=== PATIENT | female | born 1975 | race Caucasian/White ===

== ENCOUNTER 2021-12-06 13:32 | Outpatient (CLI) | payer OTHER, SELFPAY ==
[2021-12-06 17:27] LABS: Alanine Aminotransferase* 24 U/L (4-35); Aspartate Amino Transferase* 50 U/L (12-35)
[2021-12-07 11:16] LABS: Creatinine* 0.7 mg/dL (0.5-1.5); Estimated Glomerular Filt Rate 107.95
[2021-12-08 18:24] LABS: Cancer Antigen 125 6 U/mL (<=38)
== END 2021-12-06 13:33 | disposition home or self-care (01) ==
DX: C56.9 Malignant neoplasm of unspecified ovary (principal)
CPT/HCPCS: 82247; 82565; 84450; 84460; 85025; 86304

== ENCOUNTER 2022-03-06 00:22 | Inpatient (IN) | payer OTHER, SELFPAY ==
[2022-03-06] VITALS (17 sets, daily range): BP systolic 111–142; BP diastolic 65–95; PULSE 57–97; RESP 16–20; TEMP 36.4–37.2; O2SAT 97–100; BMI 19.0; BMI 19.2
--- NOTE | 2022-03-06 00:31 | ED.GENADULT ---
HPI - General Adult General Time Seen by Provider: 00:32 Date Seen: 03/06/22 Chief complaint: Abdominal Pain Stated complaint: Abdominal Pain Time Seen by Provider: 03/06/22 00:30 Source: patient, RN notes reviewed and old records reviewed Mode of arrival: ambulatory Limitations: no limitations History of Present Illness HPI narrative: 46-year-old female with history of ovarian cancer and also partial bowel resection who comes in today with low abdominal pain, nausea. Pain started about 9 hours prior to coming the emergency department. Patient frequently has difficulty stooling and uses enemas regularly. Did an enema with no output tonight. Nausea without vomiting. Some tingling in her hands now. Pain is in the low abdomen, constant but does wax and wane, worse movement. No urinary symptoms. Denies fevers and chills. Took Gas-X with no relief. Related Data Home Medications Medication Instructions Recorded Confirmed Zejula 03/06/22 lisdexamfetamine 70 mg capsule mg 03/06/22 (Vyvanse) Allergies Allergy/AdvReac Type Severity Reaction Status Date / Time No Known Drug Allergies Allergy Verified 03/06/22 00:29 Review of Systems Status of ROS: Reports: 10 or more systems reviewed and unremarkable except as noted in History and below [facility] Family History (Updated 11/30/21 @ 09:45 by Barry Damon) Father Bladder cancer Social History Smoking Status: Never smoker How often do you have a drink containing alcohol: 2-3 times a week AUDIT-C Alcohol total score: 3 Non-prescribed substance use: denies use Exam Narrative: Exam Narrative: General: Well-developed and well-nourished, no acute distress, appears uncomfortable Head: Atraumatic and normocephalic Eyes: Pupils are equal reactive, extraocular motions intact, conjunctiva clear ENT: External nose and ears are normal, posterior pharynx without erythema or exudate Neck: No midline cervical tenderness, full spontaneous range of motion the neck, trachea midline, no adenopathy Heart: Regular rate and rhythm no murmurs or thrills Lungs: Clear to auscultation bilaterally without wheezes or crackles Abdomen: Midline abdominal scar, hyperactive high-pitched bowel sounds, diffuse lower abdominal tenderness with mild distention Musculoskeletal: No tenderness, deformity, or edema Neurologic: Awake, alert, and oriented x3, no gross focal neurologic deficits, cranial nerves intact as tested Psych: Mood and affect are appropriate Skin: No rashes Const: Vital Signs, click to edit/add: Vital Signs - 24 hr 03/06/22 00:25 03/06/22 01:40 03/06/22 02:00 Temperature 97.6 F Pulse Rate [Right Pulse Oximeter] 85 69 57 L Respiratory Rate 20 18 18 Blood Pressure [Le ft Upper Arm] 121/65 128/89 127/90 H Pulse Oximetry 100 99 Oxygen Delivery Me thod Room Air Room Air 03/06/22 02:30 Temperature Pulse Rate [Right Pulse Oximeter] 58 L Respiratory Rate 16 Blood Pressure [Le ft Upper Arm] 134/84 Pulse Oximetry 99 Oxygen Delivery Me thod Room Air Documenting provider has reviewed patient's vital signs: yes Course Course Hospital Course: Patient seen and examined, prior records are reviewed. Differential diagnosis includes but not limited to gastritis, gastric ulcer, colitis, pancreatitis, acute cholecystitis, diverticulitis, appendicitis, urinary tract infection, bowel obstruction, perforation, kidney stone. Patient's history of ovarian cancer and abdominal surgeries comes in with low abdominal pain this evening. On exam, appears uncomfortable, vital is stable. Hyperactive, high-pitched bowel sounds with lower abdominal distension and low diffuse abdominal tenderness worse in the lower quadrant. Labs and CT scan are ordered along with Dilaudid IV and Zofran. Reevaluation(s) Reevaluation #1: Labs are reassuring, CT scan personally reviewed and interpreted by me demonstrates small-bowel obstruction. Radiology interpretation agrees. Care was discussed with Dr. Hernandez, general surgery. Feels that as long as patient did not receive intraoperative intra-abdominal chemotherapy she can stay at [place] ED. Contact [place] to discuss. Patient is comfortable after Dilaudid IV. Time: 02:33 Reevaluation #2: Discussed with male, patient did not have intra-abdominal chemotherapy and has not had pelvic radiation. [facility] hospitalist contacted for admission. Time: 03:15 Reevaluation #3: Discussed with [facility]ist. Time: 03:21 Vital Signs Vital signs: Initial Vital Signs Temperature 97.6 F 03/06/22 00:25 Temperature Source Temporal Artery Scan 03/06/22 00:25 Pulse Rate 85 03/06/22 00:25 Respiratory Rate 20 03/06/22 00:25 Blood Pressure 121/65 03/06/22 00:25 Blood Pressure Mean 83 03/06/22 00:25 Blood Pressure Position Sitting 03/06/22 00:25 Pulse Oximetry 100 03/06/22 00:25 Oxygen Delivery Method 03/06/22 00:25 Vital Signs Temperature 97.6 F 03/06/22 00:25 Pulse Rate 85 03/06/22 00:25 Respiratory Rate 20 03/06/22 00:25 Blood Pressure 121/65 03/06/22 00:25 Pulse Oximetry 100 03/06/22 00:25 Oxygen Delivery Method 03/06/22 00:25 Temperature 97.6 F 03/06/22 00:25 Pulse Rate 58 L 03/06/22 02:30 Respiratory Rate 16 03/06/22 02:30 Blood Pressure 134/84 03/06/22 02:30 Pulse Oximetry 99 03/06/22 02:30 Oxygen Delivery Method 03/06/22 02:30 Medical Decision Making Medical Records Medical records reviewed: Yes I reviewed the patient's medical records Lab Data Lab results reviewed: Yes I reviewed the patient's lab results Labs: Lab Results 03/06/22 03/06/22 03/06/22 Range/Units 01:10 01:10 01:10 WBC 7.58 (4.50-11.00) K/uL RBC 4.21 (4.00-5.20) m/uL Hgb 14.1 (12.0-16.0) gm/dL Hct 40.5 (33.0-51.0) % MCV 96 (80-100) fL MCH 34 (26-34) pg MCHC 35 (32-36) gm/dL RDW Coeff of Mile 12.6 (11.5-15.5) % Plt Count 242 (140-440) K/uL Neut % (Auto) 77.7 H (42.0-72.0) % Lymph % (Auto) 12.8 L (20-44) % [place] % (Auto) 8.6 (0.0-11.0) % Eos % (Auto) 0.3 (0.0-7.0) % Baso % (Auto) 0.3 (0.0-3.0) % Neut # (Auto) 5.90 (1.7-7.0) K/uL Lymph # (Auto) 1.00 (0.90-2.90) K/uL [place] # (Auto) 0.70 (0.00-0.90) K/UL Eos # (Auto) 0.02 (0.00-0.50) K/uL Baso # (Auto) 0.02 (0.00-0.30) K/uL Abs Immat Gran (auto) 0.02 (0.00-0.30) K/uL Sodium 137 (135-149) mmol/L Potassium 4.0 (3.6-5.1) mmol/L Chloride 99 (96-114) mmol/L Carbon Dioxide 27 (20-32) mmol/L BUN 14 (5-24) mg/dL Creatinine 0.8 (0.5-1.5) mg/dL Estimated Creat Clear 76.13 Estimated GFR 92 ml/min Glucose 125 H (60-115) mg/dL Lactate 1.3 (0.5-1.9) mmol/L Calcium 10.3 (8.4-10.6) mg/dL Total Bilirubin 1.7 H (0.1-1.5) mg/dL Direct Bilirubin 0.1 (0.0-0.5) mg/dL AST 42 H (12-35) U/L ALT 27 (4-35) U/L Alkaline Phosphatase 127 (40-150) U/L Total Protein 8.2 (6.0-8.3) g/dL Albumin 5.0 (3.3-5.0) g/dL Lipase 100 (23-300) U/L SARS-CoV-2 (PCR) (Negative) Influenza Type A (PCR) (Negative) Influenza Type B (PCR) (Negative) 03/06/22 Range/Units 02:45 WBC (4.50-11.00) K/uL RBC (4.00-5.20) m/uL Hgb (12.0-16.0) gm/dL Hct (33.0-51.0) % MCV (80-100) fL MCH (26-34) pg MCHC (32-36) gm/dL RDW Coeff of Mile (11.5-15.5) % Plt Count (140-440) K/uL Neut % (Auto) (42.0-72.0) % Lymph % (Auto) (20-44) % [place] % (Auto) (0.0-11.0) % Eos % (Auto) (0.0-7.0) % Baso % (Auto) (0.0-3.0) % Neut # (Auto) (1.7-7.0) K/uL Lymph # (Auto) (0.90-2.90) K/uL [place] # (Auto) (0.00-0.90) K/UL Eos # (Auto) (0.00-0.50) K/uL Baso # (Auto) (0.00-0.30) K/uL Abs Immat Gran (auto) (0.00-0.30) K/uL Sodium (135-149) mmol/L Potassium (3.6-5.1) mmol/L Chloride (96-114) mmol/L Carbon Dioxide (20-32) mmol/L BUN (5-24) mg/dL Creatinine (0.5-1.5) mg/dL Estimated Creat Clear Estimated GFR ml/min Glucose (60-115) mg/dL Lactate (0.5-1.9) mmol/L Calcium (8.4-10.6) mg/dL Total Bilirubin (0.1-1.5) mg/dL Direct Bilirubin (0.0-0.5) mg/dL AST (12-35) U/L ALT (4-35) U/L Alkaline Phosphatase (40-150) U/L Total Protein (6.0-8.3) g/dL Albumin (3.3-5.0) g/dL Lipase (23-300) U/L SARS-CoV-2 (PCR) Negative SARS-CoV-2 (Negative) Influenza Type A (PCR) Negative PCR FLU A (Negative) Influenza Type B (PCR) Negative PCR FLU B (Negative) Imaging Data CT scan - abdomen: Attestation: I have reviewed the pertinent imaging results. My impression: Small-bowel obstruction Radiologist's impression: IMPRESSION: Small-bowel obstruction. Transition point may be within the left upper quadrant as described above, possibly from adhesion from prior splenectomy. Small amount of simple free fluid in the pelvis. Status post hysterectomy and splenectomy. Low-density focus under the diaphragm is not seen on today`s study nor is the low density lesion in the liver. These findings suggest improvement in metastatic disease. Discharge Plan Discharge Clinical Impression: SBO (small bowel obstruction), H/O ovarian cancer Patient Disposition: Admitted As Inpatient
--- NOTE | 2022-03-06 00:42 | CRLHL7_ITS ---
For Patients: As a result of the Century Cures Act, medical imaging exams and procedure reports are released immediately into your electronic medical record. You may view this report before your referring provider. If you have questions, please contact your health care provider. INDICATION: Anterior abdominal pain, ovarian cancer TECHNIQUE: CT abdomen and pelvis acquired with 59 cc Isovue 370 IV contrast. COMPARISON: February 08, 2021 FINDINGS: Lower chest: The hypoattenuating focus along the superior surface of the liver under the diaphragm is not seen on today`s study. Liver: Low-density lesion previously seen adjacent to the falciform fissure is no longer seen. Spleen: S/p splenectomy. Pancreas: Unremarkable. Gallbladder and bile ducts: Unremarkable. Adrenal glands: Unremarkable. Kidneys: Unremarkable. GI tract: Air and fluid-filled loops of dilated small bowel measure up to 3.2 cm in diameter. Transition point may be within the left upper quadrant where there is a small bowel feces sign and a pointed appearance of the small bowel on image 21 series 4. Small amount of simple free fluid in the pelvis. No bowel wall thickening or pneumatosis. The colon is decompressed. Vascular structures: Unremarkable. Lymph nodes: Unremarkable. Pelvic Organs: Status post hysterectomy. Bones: Unremarkable for age. IMPRESSION: Small-bowel obstruction. Transition point may be within the left upper quadrant as described above, possibly from adhesion from prior splenectomy. Small amount of simple free fluid in the pelvis. Status post hysterectomy and splenectomy. Low-density focus under the diaphragm is not seen on today`s study nor is the low density lesion in the liver. These findings suggest improvement in metastatic disease. Please note that all CT scans at this facility use dose modulation, iterative reconstruction, and/or weight-based dosing when appropriate to reduce radiation dose to as low as reasonably achievable. Dictated by Ashley Aguilar MD @ 03/06/2022 2:24:00 AM (Electronically Signed)
[2022-03-06 01:16] LABS: Lactate* 1.3 mmol/L (0.5-1.9)
[2022-03-06 01:17] LABS: Basophils Absolute Auto 0.02 K/uL (0.00-0.30); Basophils Percent Auto 0.3 % (0.0-3.0); Eosinophils Absolute Auto 0.02 K/uL (0.00-0.50); Eosinophils Percent Auto 0.3 % (0.0-7.0); Hematocrit 40.5 % (33.0-51.0); Hemoglobin* 14.1 gm/dL (12.0-16.0); Immature Granulocytes Abs Auto 0.02 K/uL (0.00-0.30); Lymphocytes Percent Auto 12.8 % (20-44); Mean Corpuscular HGB Conc 35 gm/dL (32-36); Mean Corpuscular Hemoglobin 34 pg (26-34); Mean Corpuscular Volume 96 fL (80-100); Monocytes Percent Auto 8.6 % (0.0-11.0); Neutrophils Percent Auto 77.7 % (42.0-72.0); Platelet Count* 242 K/uL (140-440); RDW Coefficient of Variation % 12.6 % (11.5-15.5); Red Blood Count 4.21 m/uL (4.00-5.20); White Blood Count* 7.58 K/uL (4.50-11.00)
[2022-03-06] MEDS: 0.9 % SODIUM CHLORIDE 1000 ml 1,000 ML IV (01:18)
[2022-03-06 01:19] LABS: Slide Review Reflex No
[2022-03-06] MEDS: ONDANSETRON 2 MG/ML inj 4 MG IVP ×2 (01:19→05:41)
[2022-03-06] MEDS: HYDROmorphone 0.5 mg/0.5 ml inj IVP (01:20)
[2022-03-06 01:33] LABS: Chloride* 99 mmol/L (96-114)
[2022-03-06 01:34] LABS: Sodium* 137 mmol/L (135-149)
[2022-03-06 01:36] LABS: Alkaline Phosphatase* 127 U/L (40-150); Aspartate Amino Transferase* 42 U/L (12-35); Bilirubin Direct* 0.1 mg/dL (0.0-0.5); Bilirubin Total* 1.7 mg/dL (0.1-1.5); Blood Urea Nitrogen* 14 mg/dL (5-24); Carbon Dioxide* 27 mmol/L (20-32); Creatinine* 0.8 mg/dL (0.5-1.5); Est. Creatinine Clearance* 76.13; Estimated Glomerular Filt Rate 92 ml/min; Glucose* 125 mg/dL (60-115); Total Protein* 8.2 g/dL (6.0-8.3)
[2022-03-06 01:37] LABS: Alanine Aminotransferase* 27 U/L (4-35); Calcium* 10.3 mg/dL (8.4-10.6); Lipase* 100 U/L (23-300)
--- OUTSIDE RECORDS SUMMARY | 2022-03-06 01:49 | XMS_ITS | Encounter Summary ---
:1975 Author Organization [facility] Address [address] [place] [address] Care Team Providers Name Role Phone Elsewhere, Pcp Primary Care Provider Unavailable Reason for Visit Reason Comments Updated Genetic Test Results Encounter Details Date Type Department Care Team Description 02/06/2022 Documentation Department of Medical Deysi Alba Updated Genetic Test Genetics in Results [place], [place] [address] [place] [address] Social History Tobacco Use Types Packs/Day Years Used Date Smoking Tobacco: Never Smokeless Tobacco: Never Alcohol Use Standard Drinks/Week Comments Not Currently 6 (1 standard drink = 0.6 oz pure alcoho l) Alcohol Habits Answer Date Recorded How often do you have a drink containing alcohol? 2-3 times a week 02/26/2021 How many drinks containing alcohol do you have on a 1 or 2 02/26/2021 typical day when you are drinking? How often do you have six or more drinks on one Less than mo nthly 02/26/2021 occasion? Comment: Not asked Social Isolation Answer Date Recorded In a typical week, how many times do you Three times a week 02/26/2021 talk on the phone with family, friends, or neighbors? How often do you get together with friends More than three t imes a week 02/26/2021 or relatives? How often do you attend voodoo or 1 to 4 times per year 02/09 shinto services? Do you belong to any clubs or Yes 02/26/2021 organizations such as voodoo groups, unions, fraternal or athletic groups, or school groups? How often do you attend meetings of the 1 to 4 times per yea r 02/26/2021 clubs or organizations you belong to? Are you now , , , 02/26/2021 , never or living with a partner? Physical Activity Answer Date Recorded On average, how many days per week do you engage in moderate to 7 days 02/26/2021 strenuous exercise (like walking fast, running, jogging, dancing, swimming, biking, or other activities that cause a light or heavy sweat)? On average, how many minutes do you engage in exercise at th is 60 min 02/26/2021 level? Stress Answer Date Recorded Do you feel stress - tense, restless, nervous, or To some ex tent 02/26/2021 anxious, or unable to sleep at night because your mind is troubled all the time - these days? Financial Resource Strain Answer Date Recorded How hard is it for you to pay for the very basics like Not h haley at all 02/26/2021 food, housing, medical care, and heating? Food Insecurity Answer Date Recorded Within the past 12 months, you worried that your food would Never true 02/26/2021 run out before you got money to buy more. Within the past 12 months, the food you bought just didn't N ever true 02/26/2021 last and you didn't have money to get more. Transportation Needs Answer Date Recorded In the past 12 months, has lack of transportation kept you f rom No 02/26/2021 medical appointments or from getting medications? In the past 12 months, has lack of transportation kept you f rom No 02/26/2021 meetings, work, or getting things needed for daily living? Housing Stability Answer Date Recorded In the last 12 months, was there a time when you were not ab le No 02/26/2021 to pay the mortgage or rent on time? In the last 12 months, how many places have you lived? 1 02/26/2021 In the last 12 months, was there a time when you did not hav e a No 02/26/[address] or slept in a detention (including now)? Education Answer Date Recorded What is the highest level of school Bachelor's degree (e.g., BA, AB, 02/26/2021 you have completed or the highest BS) degree you have received? Sex Assigned at Date Recorded Female 02/10/2021 8:20 AM CDT documented as of this encounter Progress Notes ParthDeysi nunez Daniel - 02/06/2022 3:07 PM CDT Images from the original note were not included. We received an amended report for Angelica's genetic testing. Angelica was seen in the Department of Clinical Genomics on 03/02/2021 by Claudette Bansal CGC due to their personal diagnosis of cancer. They elected to pursue the [facility] Panel through [facility]. 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 [facility] issued a reclassification report noting the VUS in APC has now been downgraded to a variant of no clinical significance. Therefore, it is unlikely that this variant causes disease. The recommended care plan from the patient's initial result note remains applicable. This information was communicated to the patient via the patient online services portal by our genetic counseling multimedia assistant. documented in this encounter Plan of Treatment Upcoming Encounters Date Type Specialty Care Team Description 04/11/2022 Clinical Communication Admitting/Central Scheduling 04/13/2022 Appointment Laboratory Medicine Debbie Ivey M.D. [address] [place] [address] 04/13/2022 Office Visit Oncology Walter Barnhart M.D., Ph.D. [address] [place] [address] documented as of this encounter Visit Diagnoses Not on filedocumented in this encounter Care Teams Drafter Geological Relationship Specialty Start Date End Date Elsewhere, Pcp PCP - General Internal Medicine 07/08/21 documented as of this encounter
--- OUTSIDE RECORDS SUMMARY | 2022-03-06 01:49 | XMS_ITS | Clinical Summary ---
:1975 Author Organization [facility] Address [address] [place] [address] Care Team Providers Name Role Phone Elsewhere, Pcp Primary Care Provider Unavailable Source Comments Patient records contain information from all sites at [facility]. For routine questions regarding patient records, call [phone] during business hours, M-F 8:00 AM - 5:00 PM Central Time. Record requests for emergency care only can be directed to [phone] at any time.[facility] Allergies Active Allergy Reactions Severity Noted Date Comments Blood-Group Specific Other (see comments) 06/16/2009 Patient has a Substance Nonspecfic Anti body. Rh factor. Bloo d products may be delayed. Draw 2 purple top tubes and 1 red top tube for Ty pe and Screen +/or Typ e and Crossmatch orde rs. Medications Medication Sig Dispensed Refills Start Date End Date Status rgqcdsu-epoo-ccxbf-ore Take 1 tablet by 0 Active g-capryl 100 mg-150 mouth daily. mg- 50 mg-150 mg capsule niraparib 100 mg Take 200 mg by 60 capsule 11 09/12/2021 Active capsule mouth daily. 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 02/08/2022 Clinical Oncology Walter Barnhart M.D., Ph.D. 02/07/2022 Specialty Pharmacy Pharmacy Michelle Mcclain [facility], R.Ph. 02/06/2022 Documentation Clinical Genomics Deysi Alba ed Genetic M Test Results 01/11/2022 Specialty Pharmacy Pharmacy Brunilda Tamayo [facility], R.Ph. 01/03/2022 [facility] Mal[facility] Ne oplasm M, EDUCATION ANALYST, C.N.P., Of Ovary La terality M.S.N. Unknown (HCC) 01/03/2022 [facility] M, EDUCATION ANALYST, C.N.P., Of Ovary La terality M.S.N. Unknown (HCC) (Primary Dx) 01/03/2022 Hospital Encounter Radiology Block, Walter leon Neoplasm Kelly De La Cruz, Ph.D. Of Ovary Late rality Unknown (HCC) 01/03/2022 Hospital Encounter Laboratory Block, aWlter leon Neoplasm Medicine Kelly De La Cruz, Ph.D. Of Ovary Late rality Unknown (HCC) 01/02/2022 Clinical Admitting/Central Communication Scheduling 12/13/2021 Clinical Oncology Malathi Bear, Labs Only Communication R.N. from Last 3 Months Immunizations Name Administration Dates Next Due H1N1 All Forms 05/05/2009 HepA / HepB 12/19/2013, 06/16/2013, 02/12/2013 Hib (PRP-OMP) (PedvaxHIB) 05/12/2021 Influenza (IM) Preservative Free 02/28/2013 Influenza TIV (IM) 03/24/2009, 05/15/2008, 03/20/2006, 05/06/2004 Influenza, Seasonal, Injectable 03/09/2014, 03/24/2009, 12/10/2007, 03/20/2006 MCV4 (Menveo) 07/11/2021, 05/12/2021 MenB (BEXSERO) 07/11/2021, 05/12/2021 PCV13 05/12/2021 PPSV23 07/11/2021 Tdap 07/11/2021, 01/05/2010 influenza LAIV (Nasal) (2 years 04/09/2015 through 49 years) influenza vaccine QV(FLUBLOK) (18 02/12/2021 years or older) (PF) influenza vaccine quad 03/29/2018 (FLUZONE/FLUARIX) (6 months and older)(PF) Family History Medical History Relation Name Comments Bladder cancer Father Rob salter Other cancer Father Rob salter Bladder cancer 7 0yo Prostate cancer Father Rob salter 70 yo Bladder cancer Father's Brother Latonya mid-60s80 pack years smoking history Bladder cancer Maternal Grandmother non-smoker Dementia Maternal Grandmother Anxiety disorder Mother Iram salter Pancreatic cancer Paternal Grandmother Anxiety disorder Sister 2 Sarah salter Relation Name Status Comments Aunt 2 FEMALES Alive Brother 1 Alive Brother 2 Alive Cousin 1 3 Alive Cousin 2 Alive CF Cousin 3 Alive Cousin 4 Alive Cousin 5 Alive Cousin 6 Alive Daughter Alive Father Rob salter Alive 1.5 pack years s moking Father's Brother Latonya Alive Father's Sister 4 FEMALES Alive Maternal Grandfather Maternal Grandmother Mother Iram salter Alive Mother's Sister Alive Nephew 1 3 MALEs Alive Nephew 2 Alive Niece 1 2 FEMALES Alive 1 - CF Niece 2 Alive Niece 3 3 FEMALES Alive Paternal Grandfather (Age 60) d. MVA Paternal Grandmother (Age 87) Sister 1 Alive Sister 2 Sarah salter Son 1 Alive Son 2 Alive Uncle 4 MALES Alive Social History Tobacco Use Types Packs/Day Years Used Date Smoking Tobacco: Never Smokeless Tobacco: Never Tobacco Cessation: Counseling Given: Not Answered Alcohol Use Standard Drinks/Week Comments Not Currently [...] or relatives? How often do you attend mandaeism or 1 to 4 times per year 02/09 baptist services? Do you belong to any clubs or Yes 02/26/2021 organizations such as mandaeism groups, unions, fraternal or athletic groups, or [...] place to sleep or slept in a correction (including now)? Education Answer Date Recorded What is the highest level of school Bachelor's degree (e.g., BA, AB, 02/26/2021 you have completed or the highest BS) degree you have received? Sex Assigned at Date Recorded Female 02/10/2021 8:20 AM CDT Last Filed Vital Signs Vital Sign Reading Time Taken Comments Blood Pressure 122/82 01/03/2022 1:48 PM CDT Pulse 92 01/03/2022 1:48 PM CDT Temperature 36.7 ??C (98.1 ??F) 01/03/2022 1:48 PM CDT Respiratory Rate 16 01/03/2022 1:48 PM CDT Oxygen Saturation 97% 01/03/2022 1:48 PM CDT Inhaled Oxygen Concentration - - Weight 56.2 kg (123 lb 14.4 oz) 01/03/2022 1:48 PM CDT Height 168.5 cm (5' 6.34) 01/03/2022 1:48 PM CDT Body Mass Index 19.79 01/03/2022 1:48 PM CDT Plan of Treatment Upcoming Encounters Date Type Specialty Care Team Description 04/11/2022 Clinical Communication Admitting/Central Scheduling 04/13/2022 Appointment Laboratory Medicine Debbie Ivey M.D. [address] [place] [address] 04/13/2022 Office Visit Oncology Walter Barnhart M.D., Ph.D. [address] [place] [address] Health Maintenance Due Date Last Done Comments CT Colonography 1975 Cologuard 1975 Colonoscopy 1975 Colorectal Cancer Surveillance 1975 Lipid (Cholesterol) Screening 1975 Mammogram 1975 COVID-19 Vaccine (3 - Moderna risk 05/01/2021 04/03/2021, 0 02/12/2021 series) Depression Screening (Annual 06/11/2021 PHQ-2) Influenza Vaccine (#1) 2022 02/12/2021, 03/29/2018, 04/09/2015, Additional history exists MenB Vaccine (3 of 4 - Increased 07/11/2022 07/11/2021, 07/2020 Risk Bexsero 2-dose series) Fasting Glucose for Diabetes 05/12/2024 05/12/2021, 021, Screening 05/10/2021, Additional history exists Meningococcal Vaccine (3 - Risk 07/11/2026 07/11/2021, 07/2020 2-dose series) Pneumococcal vaccine (0-64 years) 07/11/2026 07/11/2021, (3 - PPSV23 or PCV20) DTaP,Tdap,and Td Vaccines (3 - Td 07/11/2031 07/11/2021, or Tdap) Hepatitis B Vaccines Completed 12/19/2013, 06/16/2013, 02/12/2013 HIB Vaccines Completed 05/12/2021 HIV Screening Completed 01/03/2022 Hepatitis C Screening Completed 01/03/2022 Medical Devices Implanted Type Area Lockstitch Front Maker Device Identifier Shelf Model / Expiration Serial / Date Lot Clp Hrzn Ti 6 Norm Swanson-Lg Grn - [id number] Hardware [employer] [id number] 07/20/2025 [id number] / Implanted: Qty: 1 on 05/09/2021 by Denisha Bliss M.D. at [facility] e.g. / pins/screws/ [id number] Procedures Procedure Name Priority Date/Time Associated Comments Diagnosis HEMATOLOGY/ONCOLOGY - Routine 02/01/2022 Result s for BLOOD, EXTERNAL LAB 11:05 AM CDT this pro cedure RESULTS are in the results section. CT ABDOMEN PELVIS WITH RAD - Routine 01/03/2022 Malignant Resu lts for IV CONTRAST (most inpatients 11:07 AM CDT Neoplasm Of this proced ure and all Ovary Laterality are in the outpatients) Unknown (HCC) results section. CT CHEST WITH IV RAD - Routine 01/03/2022 Malignant Results fo r CONTRAST (most inpatients 11:07 AM CDT Neoplasm Of this proced ure and all Ovary Laterality are in the outpatients) Unknown (HCC) results section. CANCER AG 125 (CA 125), Routine 01/03/2022 9:20 Malignant R esults for S AM CDT Neoplasm Of this procedure Ovary Laterality are in the Unknown (HCC) results section. CREATININE WITH EGFR, Routine 01/03/2022 9:20 Malignant Res ults for S/P AM CDT Neoplasm Of this procedure Ovary Laterality are in the Unknown (HCC) results section. CBC WITH DIFFERENTIAL, Routine 01/03/2022 9:20 Malignant Re sults for B AM CDT Neoplasm Of this procedure Ovary Laterality are in the Unknown (HCC) results section. BILIRUBIN, TOT, S/P Routine 01/03/2022 9:20 Malignant Resul ts for AM CDT Neoplasm Of this procedure Ovary Laterality are in the Unknown (HCC) results section. ASPARTATE Routine 01/03/2022 9:20 Malignant Results for AMINOTRANSFERASE (AST), AM CDT Neoplasm Of this procedure S/P Ovary Laterality are in the Unknown (HCC) results section. ALKALINE PHOSPHATASE, Routine 01/03/2022 9:20 Malignant Res ults for S/P AM CDT Neoplasm Of this procedure Ovary Laterality are in the Unknown (HCC) results section. HEPATITIS B SURFACE Routine 01/03/2022 9:20 Malignant Resul ts for ANTIGEN AM CDT Neoplasm Of this procedure Ovary Laterality are in the Unknown (HCC) results section. HCV AB SCRN W/REFLEX TO Routine 01/03/2022 9:20 Malignant R esults for HCV PCR, S AM CDT Neoplasm Of this procedure Ovary Laterality are in the Unknown (HCC) results section. HIV-1/-2 AG AND AB Routine 01/03/2022 9:20 Malignant Result s for SCREEN, PLASMA AM CDT Neoplasm Of this procedur e Ovary Laterality are in the Unknown (HCC) results section. HEMATOLOGY/ONCOLOGY - Routine 12/06/2021 1:39 Res ults for BLOOD, EXTERNAL LAB PM CDT this pro cedure RESULTS are in the results section. from Last 3 Months Results (ABNORMAL) Hematology/Oncology - Blood, External Lab Results (02/01/2022 11:05 AM CDT)Only the most recent of2 resultswithin the time period is included. P athologist Signature EXT Hemoglobin 13.3 12.0 - OTHER 16.0 (SPECIFY IN DEPUTY BAILIFF) EXT Leukocytes 5.25 4.50 - OTHER 11.00 (SPECIFY IN DEPUTY BAILIFF) EXT Absolute 2.64 1.7 - 7.0 OTHER Neutrophil (SPECIFY IN Count DEPUTY BAILIFF) EXT Platelet 255 140 - 440 OTHER Count (SPECIFY IN DEPUTY BAILIFF) EXT AST 49 (A) 12 - 35 OTHER (SPECIFY IN DEPUTY BAILIFF) EXT ALT 25 4 - 35 OTHER (SPECIFY IN DEPUTY BAILIFF) EXT Bilirubin, 1.6 (A) 0.1 - 1.5 OTHER Total mg/dL (SPECIFY IN DEPUTY BAILIFF) EXT Cancer 6 OTHER Antigen 125 (Ca (SPECIFY IN 125) DEPUTY BAILIFF) Comment: <=38 EXT Creatinine 0.7 0.5 - 1.5 mg/dL OTHER (SP ECIFY IN DEPUTY BAILIFF) EXT eGFR-Non Black/ 108 OTH ER (SPECIFY IN DEPUTY BAILIFF) Belgian Specimen (Source) Anatomical Collection Method Collection Time Re ceived Time Location / / Volume Laterality Blood 02/01/2022 11:05 AM CDT Narrative This result has an attachment that is no t available. Historical Provider LAB BLOOD NON ADD-ON Performing Organization Address City/State/ZIP Code Phon e Number OTHER (SPECIFY IN DEPUTY BAILIFF) OTHER (SPECIFY IN DEPUTY BAILIFF) N/A CT Abdomen Pelvis with IV Contrast (01/03/2022 11:07 AM CDT) Anatomical Region Laterality Modality Abdomen, Pelvis, Abdominal RST LOS, N/A Comp uted Tomography, Computed Abdominal ARZ LOS, Abdominal FLA LOS Aldo ography Specimen (Source) Anatomical Collection Method Collection Time Re ceived Time Location / / Volume Laterality 01/03/2022 11:10 AM CDT Impressions 01/03/2022 11:21 AM CDT Postoperative changes. No CT evidence of recurrent or metastati c disease. Interval improvement in the soft tissue nodularity near the left hemidiaphragm. 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 Liver normal size. No suspicious focal l iver lesions. Stable small hypodensity in right lobe near the dome (series 3/16). Gallbladder norm al. Pancreas normal size. Pancreatic duct is nondilated. The soft tissue density nodularity near the left hemidiaphragm (series 3/34) has mildly improved from prior. No new nodularity or soft ti ssue masses. Both kidneys normal size. Stable nonobstructive right renal calcul us (series 3/65). Small bowel loops are of normal caliber. Few reactive appearing mesenteric lymph nodes. No discrete peritoneal mass. No free fluid in the abdomen or pelvis. No significant pelvic or retroperitoneal lymph nodes This examination was performed in conjun ction with a CT of the chest, which will be reported separately. Procedure Note Av Potts M.D. 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 Liver normal size. No suspicious focal l iver lesions. Stable small hypodensity in right lobe near the dome (series 3/16). Gallbladder norm al. Pancreas normal size. Pancreatic duct is nondilated. The soft tissue density nodularity near the left hemidiaphragm (series 3/34) has mildly improved from prior. No new nodularity or soft ti ssue masses. Both kidneys normal size. Stable nonobstructive right renal calcul us (series 3/65). Small bowel loops are of normal caliber. Few reactive appearing mesenteric lymph nodes. No discrete peritoneal mass. No free fluid in the abdomen or pelvis. No significant pelvic or retroperitoneal lymph nodes This examination was performed in conjun ction with a CT of the chest, which will be reported separately. IMPRESSION: Postoperative changes. No CT evidence of recurrent or metastati c disease. Interval improvement in the soft tissue nodularity near the left hemidiaphragm. Walter Barnhart M.D., Ph.D. IMG CT PROCEDURES CT Chest with IV Contrast (01/03/2022 11:07 AM CDT) Anatomical Region Laterality Modality Chest, Thoracic RST LOS, Thoracic ARZ N/A Co mputed Tomography, Computed LOS, Thoracic ARZ LOS, Thoracic FLA Rene graphy LOS Specimen (Source) Anatomical Collection Method Collection Time Re ceived Time Location / / Volume Laterality 01/03/2022 11:19 AM CDT Impressions 01/03/2022 11:45 AM CDT 1. ??New 3 mm sub-solid pulmonary nodule along the right major fissure in the right upper lobe is indeterminate. 2. ??Additional findings are unchanged f rom 08/04/2021, including several sub-3 mm solid noncalcified pulmonary nodules. 3. ??Performed in conjunction with a CT scan of the abdomen, which is reported separately. Narrative 01/03/2022 11:45 AM CDT EXAM: CT CHEST WITH IV CONTRAST COMPARISON: Chest CT 08/04/2021 FINDINGS: New 3 mm sub-solid pulmonary nodule keyana g the right major fissure in the right upper lobe (series 3, image 253). Additional unchanged sub-3 m m solid noncalcified pulmonary nodules. For example, anterior right lower lobe (series 3, dion ge 291), left lower lobe superior segment (series 3, image 193). Calcified pulmonary granulomas. St able slight nodularity along the left anterolateral tracheal wall. No pneumothorax or pleural effusio n. Small amount of morphologically normal r esidual thymic tissue in the anterior mediastinum. No size significant hilar, mediastinal, or axill isha lymphadenopathy. Unchanged tiny pericardial effusion. No aggressive osseous lesions. [place] d right rib fracture. Similar small lucency in the T9 vertebral body. Performed in conjunction with a CT scan of the abdomen, which will be reported separately. 3D maximum intensity projection (MIP) im ages were created on a dependent workstation as ordered by the treating provider and reviewed by e radiologist to increase sensitivity for detection of pulmonary nodules. Procedure Note Jaquelin Richter M.D. - 01/03/2022Format ting of this note might be different from the original. EXAM: CT CHEST WITH IV CONTRAST COMPARISON: Chest CT 08/04/2021 FINDINGS: New 3 mm sub-solid pulmonary nodule keyana g the right major fissure in the right upper lobe (series 3, image 253). Additional unchanged sub-3 m m solid noncalcified pulmonary nodules. For example, anterior right lower lobe (series 3, dion ge 291), left lower lobe superior segment (series 3, image 193). Calcified pulmonary granulomas. St able slight nodularity along the left anterolateral tracheal wall. No pneumothorax or pleural effusio n. Small amount of morphologically normal r esidual thymic tissue in the anterior mediastinum. No size significant hilar, mediastinal, or axill isha lymphadenopathy. Unchanged tiny pericardial effusion. No aggressive osseous lesions. [place] d right rib fracture. Similar small lucency in the T9 vertebral body. Performed in conjunction with a CT scan of the abdomen, which will be reported separately. 3D maximum intensity projection (MIP) im ages were created on a dependent workstation as ordered by the treating provider and reviewed by e radiologist to increase sensitivity for detection of pulmonary nodules. IMPRESSION: 1. New 3 mm sub-solid pulmonary nodule a long the right major fissure in the right upper lobe is indeterminate. 2. Additional findings are unchanged fro 08/04/2021, including several sub-3 mm solid noncalcified pulmonary nodules. 3. Performed in conjunction with a CT sc an of the abdomen, which is reported separately. Walter Barnhart M.D., Ph.D. IMG CT PROCEDURES HIV-1/-2 Ag and Ab Screen, Plasma (01/03/2022 9:20 AM CDT) athologist Signature HIV-1/-2 Ag Negative Negative 01/03/2022 [facility] and Ab Screen, 2:01 PM CDT P Comment: Negative result does not rule out HIV in fection. If exposure to HIV infection occurred <14 d ays ago, contact the laboratory to request additi on of HIV-1 RNA detection / quantification test (HIV QN). Specimen Anatomical Collection Method Collection Time Receive d Time (Source) Location / / Volume Laterality Blood (Blood, 01/03/2022 9:20 AM 01/04/20 22 Venous) CDT 12:56 PM CDT Walter Barnhart M.D., Ph.D. LAB MICROBIOLOGY - BLOOD O RDERABLES Performing Organization Address City/State/ZIP Code Phon e Number [facility] [address] [place], [place] [address] [facility] [place] [address] Laboratory Medicine and Pathology [address] MARQUEZ HCV Ab Scrn w/Reflex to HCV PCR, Serum (01/03/2022 9:20 AM CDT) athologist [facility] HCV Ab Screen, Negative Negative 01/03/2022 [facility] S 1:49 PM CDT Comment: Vvgcyb-tt-sndbgc ratio is <1.00 . Specimen Anatomical Collection Method Collection Time Receive d Time (Source) Location / / Volume Laterality Blood (Blood, 01/03/2022 9:20 AM 01/04/20 22 Venous) CDT 12:23 PM CDT Walter Barnhart M.D., Ph.D. LAB MICROBIOLOGY - BLOOD O ELVI Performing Organization Address City/[facility] Code Phon e Number [facility] [address] [place] [phone] [address] [facility] [facility] [place] [address] Laboratory Medicine and Pathology [address] [place] [address] Dr. MARQUEZ Hepatitis B Surface Antigen (01/03/2022 9:20 AM CDT) athologist [facility] HBs Antigen, S Negative Negative 01/03/2022 [facility] 1:32 PM CDT Specimen Anatomical Collection Method Collection Time Receive d Time (Source) Location / / Volume Laterality Blood (Blood, 01/03/2022 9:20 AM 01/04/20 22 Venous) CDT 12:23 PM CDT Walter Barnhart M.D., Ph.D. LAB MICROBIOLOGY - BLOOD O ELVI Performing Organization Address City/[facility]/ZIP Code Phon e Number [facility] [address] [place], [place] [address] SUPPORT [facility] [place] [address] Laboratory Medicine and Pathology [address] [place] [address] Dr. MARQUEZ CBC with Differential, Blood (01/03/2022 9:20 AM CDT) athologist [facility] Hemoglobin 14.1 11.6 - 01/03/2022 DTL 15.0 g/dL 10:26 AM CDT Hematocrit 42.7 35.5 - 01/03/2022 DTL 44.9 % 10:26 AM CDT Erythrocytes 4.38 3.92 - 01/03/2022 DTL 5.13 10:26 AM CDT x10(12)/L MCV 97.5 78.2 - 01/03/2022 DTL 97.9 fL 10:26 AM CDT RBC Distrib Width 15.8 12.2 - 01/03/2022 DTL 16.1 % 10:26 AM CDT Platelet Count 290 157 - 371 01/03/2022 DTL x10(9)/L 10:26 AM CDT Leukocytes 4.2 3.4 - 9.6 01/03/2022 DTL x10(9)/L 10:26 AM CDT Neutrophils 2.00 1.56 - 01/03/2022 DTL 6.45 10:26 AM CDT x10(9)/L Lymphocytes 1.51 0.95 - 01/03/2022 DTL 3.07 10:26 AM CDT x10(9)/L Monocytes 0.54 0.26 - 01/03/2022 DTL 0.81 10:26 AM CDT x10(9)/L Eosinophils 0.12 0.03 - 01/03/2022 DTL 0.48 10:26 AM CDT x10(9)/L Basophils <0.03 0.01 - 01/03/2022 DTL 0.08 10:26 AM CDT x10(9)/L Specimen Anatomical Collection Method Collection Time Receive d Time (Source) Location / / Volume Laterality Blood (Blood, 01/03/2022 9:20 AM 01/04/20 9:44 Venous) CDT AM CDT Walter Barnhart M.D., Ph.D. LAB BLOOD ADD-ON Performing Organization Address City/State/ZIP Code Phon e Number [facility] [address] [place] [address] [address] [facility] [place] [address] [facility] [address] [facility] Cancer Antigen 125 (CA 125) (01/03/2022 9:20 AM CDT) athologist Signature Cancer Ag 125 7 <46 U/mL 01/04/2022 [facility] (CA 125), S 12:19 PM CDT Comment: ----ADDITIONAL INFORMATION---- The testing method is an electrochemilum inescence assay manufactured by [employer] and performed on the Michela system. Values obtained with different assay met hods or kits may be different and cannot be used inte rchangeably. Test results cannot be interpreted as ab solute evidence for the presence or absence of malignant disease. Specimen Anatomical Collection Method Collection Time Receive d Time (Source) Location / / Volume Laterality Blood (Blood, 01/03/2022 9:20 AM 01/05/20 Venous) CDT 10:58 AM CDT Marychuy Kapoor APRN, C.N.P., M.S.N. LAB BLOOD ADD-ON Performing Organization Address City/[facility]/ZIP Code Phon e Number [facility] [address] [place], [place] [address] [facility] [place] [address] Laboratory Medicine and Pathology [address] MARQUEZ (ABNORMAL) AST (Aspartate Aminotransferase) (01/03/2022 9:20 AM CDT) Patholo gist Method Time Signature Aspartate 47 (H) 8 - 43 01/03/2022 DTL Aminotransferase U/L 10:17 AM CDT (AST), S Specimen Anatomical Collection Method Collection Time Receive d Time (Source) Location / / Volume Laterality Blood (Blood, 01/03/2022 9:20 AM 01/04/20 Venous) CDT 10:00 AM CDT Walter Barnhart M.D., Ph.D. LAB BLOOD ADD-ON Performing Organization Address City/[facility]/ZIP Code Phon e Number [facility] - [address] [place] [phone] [address] [facility] [place] [address] [address] [facility] (ABNORMAL) Alkaline Phosphatase (01/03/2022 9:20 AM CDT) P athologist Signature Alkaline 150 (H) 35 - 104 01/03/2022 DTL Phosphatase, S U/L 10:17 AM CDT Specimen Anatomical Collection Method Collection Time Receive d Time (Source) Location / / Volume Laterality Blood (Blood, 01/03/2022 9:20 AM 01/04/20 Venous) CDT 10:00 AM CDT Walter Barnhart M.D., Ph.D. LAB BLOOD ADD-ON Performing Organization Address City/State/ZIP Code Phon e Number [facility] - [address] [place] [address] [address] [facility] [place] [address] Creatinine with Estimated GFR (01/03/2022 9:20 AM CDT) athologist Signature Creatinine 0.78 0.59 - 01/03/2022 DTL 1.04 mg/dL 10:17 AM CDT eGFR-Non >90 >=60 01/03/2022 DTL Black/ mL/min/BSA 10:17 AM CDT Belgian Comment: ----ADDITIONAL INFORMATION---- Estimated GFR calculated using the 2009 CKD_EPI creatinine equation. eGFR-Black/ >90 >=60 mL/min/BSA 2021 10:17 AM CDT DTL Comment: ----ADDITIONAL INFORMATION---- Estimated GFR calculated using the 2009 CKD_EPI creatinine equation. Specimen Anatomical Collection Method Collection Time Receive d Time (Source) Location / / Volume Laterality Blood (Blood, 01/03/2022 9:20 AM 01/04/20 Venous) CDT 10:00 AM CDT Walter Barnhart M.D., Ph.D. LAB BLOOD ADD-ON Performing Organization Address City/State/ZIP Code Phon e Number [facility] - [address] [place] [address] [place] [address] [place], [place] [phone] [place] [address] Bilirubin, Total (01/03/2022 9:20 AM CDT) athologist Signature Bilirubin, 1.0 <=1.2 mg/dL 01/03/2022 DT Total, S 10:17 AM CDT Specimen Anatomical Collection Method Collection Time Receive d Time (Source) Location / / Volume Laterality Blood (Blood, 01/03/2022 9:20 AM 01/04/20 Venous) CDT 10:00 AM CDT Walter Barnhart M.D., Ph.D. LAB BLOOD ADD-ON Performing Organization Address City/State/ZIP Code Phon e Number [facility] - [address] [place], [place] [address] [facility] [place], [place] [phone] [place] [address] First [facility] from Last 3 Months Insurance Payer Benefit Plan / Subscriber ID Effective Phone Address T [facility] Group Dates GENERIC GENERIC [id number] 2020-Pres [phone] [address] COMMERCIAL COMMERCIAL ent [id number] [id number] Advance Directives For more information, please contact: [phone] Latest Code Status on File Code Status Date Activated Date Inactivated Comments Full Code 05/09/2021 6:40 PM 05/14/2021 1:07 PM Full Code: Discussed Full Code 05/09/2021 7:00 AM 05/09/2021 6:40 PM Full Code: Discussed Full Code 04/25/2021 5:50 AM 04/25/2021 7:47 PM Full Code: Discussed Care Teams Biological Sciences Instructor Relationship Specialty Start Date End Date Elsewhere, Pcp PCP - General Internal Medicine 07/08/21
--- OUTSIDE RECORDS SUMMARY | 2022-03-06 01:49 | XMS_ITS | Encounter Summary ---
:1975 Author Organization [facility] Address [address] [place] [address] Care Team Providers Name Role Phone Elsewhere, Pcp Primary Care Provider Unavailable Encounter Details Date Type Department Care Team Description 01/11/2022 Specialty Pharmacy [facility] Brunilda Tamayo, [address] Dorothy Briscoe Pharm.D., R.Ph. [place], [place] [address] [facility] [address] [place], [place] [phone] (Wo rk) Social History Tobacco Use Types Packs/Day Years [...] or relatives? How often do you attend advent or 1 to 4 times per year 02/09 alevism services? Do you belong to any clubs or Yes 02/26/2021 organizations such as advent groups, unions, fraternal or athletic groups, or [...] place to sleep or slept in a retirement (including now)? Education Answer Date Recorded What is the highest level of school Bachelor's degree (e.g., BA, AB, 02/26/2021 you have completed or the highest BS) degree you have received? Sex Assigned at Date Recorded Female 02/10/2021 8:20 AM CDT documented as of this encounter Miscellaneous Notes Telephone Encounter - Brunilda Tamayo, Pharm.D., R.Ph. - 01/24/2022 10:51 AM CDT SUBJECTIVE REASON FOR VISIT Specialty pharmacy reassessment of patient's medication knowledge, adherence, and side effects via patient reported questionnaire. Reassessment questions were asked via phone by a patient farm or ranch animal caretaker. (reviewed at or around patient requested refill ) HISTORY OF PRESENT ILLNESS Ms. Angelica Yang is a 46 y.o. female, who is followed by the specialty pharmacy service for count includes the [facility]. (Indication: hematology/oncology) Patient reported reassessment questions and responses: Informant: patient How comfortable are you understanding the medication(s) you receive from [facility]?: Very Comfortable Side Effects Requiring Attention: no Patient Reported X Missed Doses in the Last Month: 0 Please rate your confidence in your ability to keep taking your medication(s) as prescribed.: excellent confidence How would you rate the effectiveness of your specialty medication(s)?: effectiveness determined by the provider In general, would you say your quality of life is: very good Pain rating 0-10: 2/10 Any new/changes in allergies or medications to report?: no new/changes in allergies or medications OBJECTIVE Lab Results Component Value Date CREATININE 0.78 01/03/2022 ASSESSMENT / PLAN 1. Medication Knowledge and Adherence In reference to the patient reported information above and reviewing refill history in the [facility] record. The patient/caregiver reports appropriate medication knowledge. No adherence issues identified. 2. Medication Side effects/Adverse Events In reference to the patient reported information above: The patient/caregiver reports no medication side effects requiring attention. No reported adverse drug reactions, allergic reactions, overdoses or medication errors. 3. Effectiveness Patient reports medication effectiveness to be: 'effectiveness determined by provider'. Effectiveness difficult to determine at this early stage, focusing on adherence and side effects at this time. 4. Quality of Life Patient currently rating quality of life as 'Very Good'. 5. Pain Patient currently rating pain as 2/10. 6. Summary and continued Goals of therapy Based on the above information, the patient's therapy is appropriate to continue. Continue to: -Promote medication adherence. -Evaluate other newly prescribed therapies as needed for drug-drug and drug- disease appropriateness.Specialty medications reconciled and good tammy attempt made in maintaining a complete medication list (via dispensing program) at each dispense of medication. -Mitigate, treat or prevent side effects. This patient does not meet the definition of high risk by MCSP definition. Follow-up: 1 month(s) Brunilda Tamayo Pharm.D., R.Ph. documented in this encounter Plan of Treatment Upcoming Encounters Date Type Specialty Care Team Description 04/11/2022 Clinical Communication Admitting/Central Scheduling 04/13/2022 Appointment Laboratory Medicine Debbie Ivey M.D. [address] [place] [address] 04/13/2022 Office Visit Oncology Walter Barnhart M.D., Ph.D. [address] [place] [address] documented as of this encounter Visit Diagnoses Not on filedocumented in this encounter Care Teams Furnace Clerk Relationship Specialty Start Date End Date Elsewhere, Pcp PCP - General Internal Medicine 07/08/21 documented as of this encounter
--- OUTSIDE RECORDS SUMMARY | 2022-03-06 01:49 | XMS_ITS | Encounter Summary ---
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 Procedures CT Abdomen Pelvis with IV Contrast CT Abdomen Pelvis without and with IV Contrast FL CT ABD&PELVIS WO/W CNTRST FL CT ABD&PELVIS W CNTRST Ph.D. 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 Procedures CT Chest with IV Contrast FL CT THORAX W CNTRST Ph.D. 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 Procedures CT Chest with IV Contrast FL CT THORAX W CNTRST Ph.D. [address] [place] [phone] Referral ID Status Reason Start Date Expiration Date Visits Requ ested Visits Authorized [id number] Closed 12/22/2021 06/23/2022 1 1 Encounter Details Date Type Department Care Team Description 01/03/2022 Hospital Encounter Department of Walter Barnhart Malign ant Neoplasm Radiology, Angel De La Cruz M.D., Ph.D. Of Ovary Laterality [facility], in 200 [facility] Unknown (HCC) [facility] [phone] [place] [address] [place], [place] (Work) [phone] Social History Tobacco Use Types Packs/Day Years [...] or relatives? How often do you attend faith or 1 to 4 times per year 02/09 hindu services? Do you belong to any clubs or Yes 02/26/2021 organizations such as faith groups, unions, fraternal or athletic groups, or [...] place to sleep or slept in a skilled nursing (including now)? Education Answer Date Recorded What is the highest level of school Bachelor's degree (e.g., BA, AB, 02/26/2021 you have completed or the highest BS) degree you have received? Sex Assigned at Date Recorded Female 02/10/2021 8:20 AM CDT documented as of this encounter Medications at Time of Discharge Medication Sig Dispensed Refills Start Date End Date niraparib 100 mg capsule Take 200 mg by mouth 60 capsule 11 0 09/12/2021 daily. heqawjw-yvcu-pjsmt-oreg-c Take 1 tablet by 0 isra 100 mg-150 mg- 50 mouth daily. mg-150 mg capsule documented as of this encounter Nursing Notes Yovany Ocasio R.N. - 01/03/2022 10:00 AM CDT Patient has a Creatinine/eGFR from an outside facility, Hematology/Oncology The result is from December 06, 2021 eGFR result was 90 documented in this encounter Plan of Treatment Upcoming Encounters Date Type Specialty Care Team Description 04/11/2022 Clinical Communication Admitting/Central Scheduling 04/13/2022 Appointment Laboratory Medicine Debbie Ivey M.D. [address] [place] [phone] 04/13/2022 Office Visit Oncology Walter Barnhart M.D., Ph.D. [address] [place] [phone] documented as of this encounter Procedures Procedure Name Priority Date/Time Associated Comments Diagnosis CT ABDOMEN PELVIS RAD - Routine 01/03/2022 11:07 Malignant Resul ts for this WITH IV CONTRAST (most inpatients AM CDT Neoplasm Of Ovary pr ocedure are in and all Laterality the results outpatients) Unknown (HCC) section. CT CHEST WITH IV RAD - Routine 01/03/2022 11:07 Malignant Result s for this CONTRAST (most inpatients AM CDT Neoplasm Of Ovary proced ure are in and all Laterality the results outpatients) Unknown (HCC) section. documented in this encounter Results CT Abdomen Pelvis with IV Contrast (01/03/2022 [...] Stable nonobstructive right renal calcul us (series 3/). Small bowel loops are of normal caliber. [...] by the treating provider and reviewed by [facility] radiologist to increase sensitivity for detection of [...] by the treating provider and reviewed by [facility] radiologist to increase sensitivity for detection of pulmonary nodules. IMPRESSION: 1. New 3 mm sub-solid pulmonary nodule a long the right major fissure in the right upper lobe is indeterminate. 2. Additional findings are unchanged fro m 08/04/2021, including several sub-3 mm solid noncalcified pulmonary nodules. 3. Performed in conjunction with a CT sc an of the abdomen, which is reported separately. Walter Barnhart M.D., Ph.D. IMG CT PROCEDURES documented in this encounter Visit Diagnoses Diagnosis Malignant Neoplasm Of Ovary Laterality U nknown (HCC) documented in this encounter Administered Medications Inactive Administered Medications - up to 3 most recent administrations Medication Order MAR Action Action Date Dose Rate Site iohexol (OMNIPAQUE) dilution Given 01/03/2022 10:19 AM CDT 9,000 mg solution 9,000 mg iodine/1,000 mL water 9,000 mg, oral, Once in imaging, contrast, Starting on 01/03/22 at 1013, For 1 dose, Imaging Protocol Orders, Mix iohexol 300 (Omnipaque?? 300) 30 mL with 970 mL water for a total volume of 1,000 mLs. Patient to drink mixture in 40 minutes. iopromide 300 mg iodine/mL injection 50 mL Given 01/03/2022 10:5 7 AM CDT 50 mL (ULTRAVIST) 50 mL, intravenous, Once in imaging, contrast, Starting on 01/03/22 at 1056, For 1 dose sodium chloride (PF) 0.9 % injection 1-1 00 mL Given 01/03/2022 10:54 AM CDT 50 mL 1-100 mL, intravenous, Once, On 01/03/22 at 1015, For 1 dose, Imaging Protocol Orders documented in this encounter Care Teams Protective Services Social Worker Relationship Specialty Start Date End Date Elsewhere, Pcp PCP - General Internal Medicine 07/08/21 documented as of this encounter
--- OUTSIDE RECORDS SUMMARY | 2022-03-06 01:49 | XMS_ITS | Encounter Summary ---
:1975 Author Organization [facility] Address [address] [place] [address] Care Team Providers Name Role Phone Elsewhere, Pcp Primary Care Provider Unavailable Reason for Visit Reason Comments Alert Labs Encounter Details Date Type Department Care Team Description 03/03/2022 Clinical Communication Department of Oncology Malathi Bear [facility] in [facility] [phone] [address] [facility] (Work) [place] [address] Social History Tobacco Use Types Packs/Day Years [...] 1 to 4 times per year 02/09 mandaen services? Do you belong to any clubs [...] place to sleep or slept in a residential (including now)? Education Answer Date Recorded What is the highest level of school Bachelor's degree (e.g., BA, AB, 02/26/2021 you have completed or the highest BS) degree you have received? Sex Assigned at Date Recorded Female 02/10/2021 8:20 AM CDT documented as of this encounter Plan of Treatment Upcoming Encounters Date Type Specialty Care Team Description 04/11/2022 Clinical Communication Admitting/Central Scheduling 04/13/2022 Appointment Laboratory Medicine Debbie Ivey M.D. [address] [place] [address] 04/13/2022 Office Visit Oncology Walter Barnhart M.D., Ph.D. [address] [place] [address] documented as of this encounter Visit Diagnoses Not on filedocumented in this encounter Care Teams Classification Case Manager Relationship Specialty Start Date End Date Elsewhere, Pcp PCP - General Internal Medicine 07/08/21 documented as of this encounter
--- OUTSIDE RECORDS SUMMARY | 2022-03-06 01:49 | XMS_ITS | Encounter Summary ---
:1975 Author Organization [facility] Address [address] [place] [address] Care Team Providers Name Role Phone Elsewhere, Pcp Primary Care Provider Unavailable Encounter Details Date Type Department Care Team Description 02/07/2022 Specialty Pharmacy [facility] Michelle Mcclain, [address] Dorothy Briscoe Pharm.D., [place] [address] [address] [facility] [phone] [place] [address] Social History Tobacco Use Types Packs/Day Years [...] or relatives? How often do you attend mormon or 1 to 4 times per year 02/09 lutheran services? Do you belong to any clubs or Yes 02/26/2021 organizations such as mormon groups, unions, fraternal or athletic groups, or [...] place to sleep or slept in a snf (including now)? Education Answer Date Recorded What is the highest level of school Bachelor's degree (e.g., BA, AB, 02/26/2021 you have completed or the highest BS) degree you have received? Sex Assigned at Date Recorded Female 02/10/2021 8:20 AM CDT documented as of this encounter Miscellaneous Notes Telephone Encounter - Michelle Mcclain, Pharm.D., R.Ph. - 02/10/2022 8:38 AM CDT SUBJECTIVE REASON FOR VISIT Specialty pharmacy reassessment of patient's medication knowledge, adherence, and side effects via patient reported questionnaire. Reassessment questions were asked via phone by a patient rn homecare. (reviewed at or around patient requested refill ) HISTORY OF PRESENT ILLNESS Ms. Angelica Yang is a 46 y.o. female, who is followed by the specialty pharmacy service for Zejula (niraparib) . (Indication: ovarian cancer) Patient reported reassessment questions and responses: Informant: patient How comfortable are you understanding the medication(s) you receive from [facility]?: Very Comfortable Side Effects Requiring Attention: yes, but managing these with my provider Patient Reported X Missed Doses in the Last Month: 0 Reasons for Non-Adherence: no problems identified Please rate your confidence in your ability to keep taking your medication(s) as prescribed.: excellent confidence How would you rate the effectiveness of your specialty medication(s)?: excellent In general, would you say your quality of life is: excellent Pain rating 0-10: 4/10 Any new/changes in allergies or medications to report?: no new/changes in allergies or medications Gaps in Refill History Greater than 2 Weeks in the Last 3 Months: no OBJECTIVE Lab Results Component Value Date CREATININE 0.7 02/01/2022 Lab Results Component Value Date ALT 25 02/01/2022 ALT 24 12/06/2021 ALT 22 11/08/2021 Lab Results Component Value Date AST 49 (A) 02/01/2022 AST 47 (H) 01/03/2022 AST 50 (A) 12/06/2021 Lab Results Component Value Date BILITOT 1.6 (A) 02/01/2022 Lab Results Component Value Date HGB 13.3 02/01/2022 HGB 14.1 01/03/2022 HGB 14.1 12/06/2021 Lab Results Component Value Date PLT 255 02/01/2022 PLT 290 01/03/2022 PLT 268 12/06/2021 Lab Results Component Value Date WBC 5.25 02/01/2022 WBC 4.2 01/03/2022 WBC 4.78 12/06/2021 Lab Results Component Value Date NEUTROPHILS 2.00 01/03/2022 NEUTROPHILS 1.20 (L) 08/04/2021 NEUTROPHILS 2.09 07/08/2021 Lab Results Component Value Date LYMPHSABS 1.51 01/03/2022 LYMPHSABS 1.34 04/25/2021 ASSESSMENT / PLAN 1. Medication Knowledge and Adherence In reference to the patient reported information above and reviewing refill history in the [facility] record. The patient/caregiver reports appropriate medication knowledge. No adherence issues identified. 2. Medication Side effects/Adverse Events In reference to the patient reported information above: The patient/caregiver reports side effects, but is managing with provider. Please refer to the oncology provider's note from 01/03/2022. No reported adverse drug reactions, allergic reactions, overdoses or medication errors. 3. Effectiveness Patient reports medication effectiveness to be: 'excellent'. Also, please refer to the oncology provider's assessment/plan within [facility] on the following date: 01/03/2022. 4. Quality of Life Patient currently rating quality of life as 'Excellent'. 5. Pain Patient currently rating pain as 4/10. 6. Summary and continued Goals of therapy Based on the above information, the patient's therapy is appropriate to continue. Continue to: -Promote medication adherence. -Evaluate other newly prescribed therapies as needed for drug-drug and drug- disease appropriateness.Good tammy attempt made in maintaining a complete medication list at each dispense of medication. -Mitigate, treat or prevent side effects. This patient does not meet the definition of high risk by MCSP definition. Follow-up: 6 month(s) Michelle Mcclain Pharm.D., R.Ph. documented in this encounter Plan of Treatment Upcoming Encounters Date Type Specialty Care Team Description 04/11/2022 Clinical Communication Admitting/Central Scheduling 04/13/2022 Appointment Laboratory Medicine Debbie Ivey M.D. [address] [place] [address] 04/13/2022 Office Visit Oncology Walter Barnhart M.D., Ph.D. [address] [place] [phone] documented as of this encounter Visit Diagnoses Not on filedocumented in this encounter Care Teams Aircraft Electrical Systems Specialist Relationship Specialty Start Date End Date Elsewhere, Pcp PCP - General Internal Medicine 07/08/21 documented as of this encounter
--- OUTSIDE RECORDS SUMMARY | 2022-03-06 01:49 | XMS_ITS | Encounter Summary ---
:1975 Author Organization [facility] Address [address] [place] [address] Care Team Providers Name Role Phone Elsewhere, Pcp Primary Care Provider Unavailable Encounter Details Date Type Department Care Team Description 01/03/2022 Hospital Encounter Department of Walter Barnhart ant Neoplasm Laboratory Medicine SKelly, Ph. D. Of Ovary Laterality and Pathology, [address] [place] [address] Unknown (HCC) [facility] in [facility] [phone] [place] [phone] 200 [facility] (Work) [place], [place] [phone] (Fax) [phone] Social History Tobacco Use Types Packs/Day Years [...] or relatives? How often do you attend restoration or 1 to 4 times per year 02/09 jainism services? Do you belong to any clubs or Yes 02/26/2021 organizations such as restoration groups, unions, fraternal or athletic groups, or [...] place to sleep or slept in a [place] (including now)? Education Answer Date Recorded What [...] mouth 60 capsule 11 0 09/12/2021 daily. [id number]-zgriq-oreg-c Take 1 tablet by 0 isra 100 mg-150 mg- 50 mouth daily. mg-150 mg capsule documented as of this encounter Plan of Treatment Upcoming Encounters Date Type Specialty Care Team Description 04/11/2022 Clinical Communication Admitting/Central Scheduling 04/13/2022 Appointment Laboratory Medicine Debbie Ivey M.D. [address] [place] [phone] 04/13/2022 Office Visit Oncology Walter Barnhart M.D., Ph.D. [address] [place] [phone] documented as of this encounter Procedures Procedure Name Priority Date/Time Associated Comments Diagnosis HIV-1/-2 AG AND AB Routine 01/03/2022 9:20 Malignant Neoplasm Results for this SCREEN, PLASMA AM CDT Of Ovary procedure are in Laterality Unknown the resul ts (HCC) section. HCV AB SCRN W/REFLEX TO Routine 01/03/2022 9:20 Malignant Neop lasm Results for this HCV PCR, S AM CDT Of Ovary procedure are i n Laterality Unknown the resul ts (HCC) section. HEPATITIS B SURFACE Routine 01/03/2022 9:20 Malignant Neoplasm Results for this ANTIGEN AM CDT Of Ovary procedure are i n Laterality Unknown the resul ts (HCC) section. CBC WITH DIFFERENTIAL, B Routine 01/03/2022 9:20 Malignant Juan plasm Results for this AM CDT Of Ovary procedure are i n Laterality Unknown the resul ts (HCC) section. ASPARTATE Routine 01/03/2022 9:20 Malignant Neoplasm Result s for this AMINOTRANSFERASE (AST), AM CDT Of Ovary proc edure are in S/P Laterality Unknown the resul ts (HCC) section. ALKALINE PHOSPHATASE, Routine 01/03/2022 9:20 Malignant Neopla sm Results for this S/P AM CDT Of Ovary procedure are i n Laterality Unknown the resul ts (HCC) section. CREATININE WITH EGFR, Routine 01/03/2022 9:20 Malignant Neopla sm Results for this S/P AM CDT Of Ovary procedure are i n Laterality Unknown the resul ts (HCC) section. BILIRUBIN, TOT, S/P Routine 01/03/2022 9:20 Malignant Neoplasm Results for this AM CDT Of Ovary procedure are i n Laterality Unknown the resul ts (HCC) section. documented in this encounter Results Hepatitis B Surface Antigen (01/03/2022 9:20 AM CDT) athologist Signature HBs Antigen, S Negative Negative 01/03/2022 [facility] 1:32 PM CDT Specimen Anatomical Collection Method Collection Time Receive d Time (Source) Location / / Volume Laterality Blood (Blood, 01/03/2022 9:20 AM 01/04/20 22 Venous) CDT 12:23 PM CDT Walter Barnhart M.D., Ph.D. LAB MICROBIOLOGY - BLOOD O RDERASHANTANU Performing Organization Address [facility] Phon e Number [facility] [address] [place] Dominguez[address] [place] [address] Laboratory Medicine and Pathology [address] [place] [address] Dr. MARQUEZ HCV Ab Scrn w/Reflex to HCV PCR, Serum (01/03/2022 9:20 AM CDT) athologist Signature HCV Ab Screen, Negative Negative 01/03/2022 [facility] S 1:49 PM CDT Comment: Xornqd-bo-jawkfz ratio is <1.00 . Specimen Anatomical Collection Method Collection Time Receive d Time (Source) Location / / Volume Laterality Blood (Blood, 01/03/2022 9:20 AM 01/04/20 Venous) CDT 12:23 PM CDT Walter Barnhart M.D., Ph.D. LAB MICROBIOLOGY - BLOOD O RDERABLES Performing Organization Address City/[facility] Phon e Number [facility] [address] [place], [place] [address] [facility] [place] [address] Laboratory Medicine and Pathology [address] [place] [address] Dr. MARQUEZ HIV-1/-2 Ag and Ab Screen, Plasma (01/03/2022 9:20 AM CDT) athologist Signature HIV-1/-2 Ag Negative Negative 01/03/2022 [facility] and Ab Screen, 2:01 PM CDT Comment: Negative result does not rule out HIV in fection. If exposure to HIV infection occurred <14 d ays ago, contact the laboratory to request additi on of HIV-1 RNA detection / quantification test (HIV QN). Specimen Anatomical Collection Method Collection Time Receive d Time (Source) Location / / Volume Laterality Blood (Blood, 01/03/2022 9:20 AM 01/04/20 Venous) CDT 12:56 PM CDT Walter Barnhart M.D., Ph.D. LAB MICROBIOLOGY - BLOOD O RDERABLES Performing Organization Address City/[facility] Code Phon e Number [facility] [address] [address] MARQUEZ [address] CENTER [facility] [place] [address] Laboratory Medicine and Pathology [address] [place] [address] Dr. MARQUEZ Creatinine with Estimated GFR (01/03/2022 9:20 AM CDT) athologist Signature Creatinine 0.78 0.59 - 01/03/2022 [facility] 1.04 mg/dL 10:17 AM CDT eGFR-Non >90 >=60 01/03/2022 [facility] Black/ mL/min/BSA 10:17 AM CDT [place] Comment: ----ADDITIONAL INFORMATION---- Estimated GFR calculated using [...] Ph.D. LAB BLOOD ADD-ON Performing Organization Address City/State/[facility] Phon e Number [facility] - [address] [place] [address] [facility] [place] [address] Laboratories-[facility] 200 [facility] CBC with Differential, Blood (01/03/2022 9:20 AM CDT) P athologist Signature Hemoglobin 14.1 11.6 - 01/03/2022 DTL 15.0 [...] Ph.D. LAB BLOOD ADD-ON Performing Organization Address City/[facility] Phon e Number [facility] - [address] [place], [place] [address] [facility] [place], [place] [address] [place] [address] 200 [facility] Bilirubin, Total (01/03/2022 9:20 AM CDT) P athologist Signature Bilirubin, 1.0 <=1.2 mg/dL 01/03/2022 DTL Total, S 10:17 AM CDT Specimen Anatomical Collection Method Collection Time Receive d Time (Source) Location / / Volume Laterality Blood (Blood, 01/03/2022 9:20 AM 01/04/20 22 Venous) CDT 10:00 AM CDT Walter Barnhart M.D., Ph.D. LAB BLOOD ADD-ON Performing Organization Address City/[facility] Phon e Number [facility] - [address] [place] [address] 05 [place], [place] [phone] [place] [address] (ABNORMAL) AST (Aspartate Aminotransferase) (01/03/2022 9:20 AM CDT) Patholo gist Method Time Signature Aspartate 47 (H) 8 - 43 01/03/2022 DTL Aminotransferase U/L 10:17 AM CDT (AST), S Specimen Anatomical Collection Method Collection Time Receive d Time (Source) Location / / Volume Laterality Blood (Blood, 01/03/2022 9:20 AM 01/04/20 22 Venous) CDT 10:00 AM CDT Walter Barnhart M.D., Ph.D. LAB BLOOD ADD-ON Performing Organization Address City/[facility] Phon e Number [facility] - [address] [place], [place] [address] [facility] [address] (ABNORMAL) Alkaline Phosphatase (01/03/2022 9:20 AM CDT) P athologist Signature Alkaline 150 (H) 35 - 104 01/03/2022 DTL Phosphatase, S U/L 10:17 AM CDT Specimen Anatomical Collection Method Collection Time Receive d Time (Source) Location / / Volume Laterality Blood (Blood, 01/03/2022 9:20 AM 01/04/20 22 Venous) CDT 10:00 AM CDT Walter Barnhart M.D., Ph.D. 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
--- OUTSIDE RECORDS SUMMARY | 2022-03-06 01:49 | XMS_ITS ---
:1975 Author Organization [facility] Address [address] [place] [address] Care Team Providers Name Role Phone Elsewhere, Pcp Primary Care Provider Unavailable Active Problems Problem Noted Date Personal History Of Malignant Neoplasm Of Ovary 2020 Education Need Ostomy 05/04/2021 Obstruction Intestinal 04/25/2021 Neutropenia Drug Induced 04/07/2021 Malignant Neoplasm Of Ovary Laterality Unknown 021 Mass Ovary 02/16/2021 Current Oncology Plans CARBOplatin AUC 6 / PACLitaxel ( FALSEWORK BUILDER )Plan Start Date:02/23/2021 Plan Provider:Walter Barnhart M.D., Ph.D. 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 Complete Peripheral Intravenous Catheter and Rapid Infusion Catheter Radiation Treatments No radiation treatments are documented for this patient in [facility]. Treatments may have been administered in another system.
--- OUTSIDE RECORDS SUMMARY | 2022-03-06 01:49 | XMS_ITS | Encounter Summary ---
:1975 Author Organization [facility] Address [address] [place] [address] Care Team Providers Name Role Phone Elsewhere, Pcp Primary Care Provider Unavailable Encounter Details Date Type Department Care Team Description 02/08/2022 Clinical Communication Department of Walter Barnhart Oncology in M.D., Ph.D. [place], [place] [address] [facility] [address] [place] [phone] Social History Tobacco Use Types Packs/Day Years [...] or relatives? How often do you attend tenriism or 1 to 4 times per year 02/09 uatsdin services? Do you belong to any clubs or Yes 02/26/2021 organizations such as tenriism groups, unions, fraternal or athletic groups, or [...] place to sleep or slept in a longterm (including now)? Education Answer Date Recorded What is the highest level of school Bachelor's degree (e.g., BA, AB, 02/26/2021 you have completed or the highest BS) degree you have received? Sex Assigned at Date Recorded Female 02/10/2021 8:20 AM CDT documented as of this encounter Miscellaneous Notes Telephone Encounter - Walter Barnhart M.D., Ph.D. - 02/08/2022 5:25 PM CDT I contacted Ms. Yang by phone to discuss her headaches. They are slightly better today than they had been past few days, but she did have headache and dizziness for about half the day today. I told Ms. Yang that I am not sure what is causing her headaches. It is possible that they are related to olaparib, although we do not often see headache as a side effect of olaparib. I suggested that she hold olaparib for the next few days. If the headaches promptly resolve, then we will consider it likely that the headaches and the olaparib are connected. In that case, we will resume olaparib at a 50% dose reduction and will gradually increase the dose of olaparib as tolerated. If there is noimprovement in headaches after a few days off olaparib, then I would favor obtaining an MRI. Ms. Yang asked if her supplements might be responsible for the rise in bilirubin. I told her that this is a possibility. She will hold her supplements prior to her next blood test. documented in this encounter Plan of Treatment Upcoming Encounters Date Type Specialty Care Team Description 04/11/2022 Clinical Communication Admitting/Central Scheduling 04/13/2022 Appointment Laboratory Medicine Debbie Ivey M.D. [address] [place] [address] 04/13/2022 Office Visit Oncology Walter Barnhart M.D., Ph.D. [address] [place] [address] documented as of this encounter Visit Diagnoses Not on filedocumented in this encounter Care Teams Jute Bag Cutting Machine Operator Relationship Specialty Start Date End Date Elsewhere, Pcp PCP - General Internal Medicine 07/08/21 documented as of this encounter
--- OUTSIDE RECORDS SUMMARY | 2022-03-06 01:49 | XMS_ITS | Clinical Summary ---
:1975 Author Organization [facility] [place] [address] Care Team Providers Name Role Phone Aruna Medina [facility] Primary Care Provider Allergies Active Allergy Reactions Severity Noted Date Comments Blood-Group Specific 06/16/2009 Patient has a Nonspecfic Substance Antibody. Blood products may be delayed. Dra bernal 2 purple top tubes and 1 red top tube for Type and Sc reen +/or Type and Crossm atch orders. Medications Medication Sig Dispensed Refills Start Date End Date Status ibuprofen (ADVIL; Take 200 mg by 0 Active MOTRIN) 200 mg tablet mouth 4 times daily if needed. ERGOCALCIFEROL, VITAMIN Take by mouth. 0 Active D2, (VITAMIN D2 ORAL) VYVANSE 70 mg capsule 0 05/26/2016 Active progesterone micronized 0 06/02/2016 Active (PROMETRIUM) 100 mg capsule Active Problems No known active problems Immunizations Name Administration Dates Next Due Influenza A (H1N1), Inactivated (Age 1105/05/2009 >=3 Years) Influenza, IIV3 (Age >=3 years) 03/24/2009, 05/15/2008, 03/11, 05/06/2004 Tdap 01/05/2010 Family History Medical History Relation Name Comments Hyperlipidemia Father Cancer Maternal Grandmother Diabetes type II Paternal Uncle Cancer-breast No Family History Cancer-colon No Family History Cancer-ovarian No Family History Cancer-prostate No Family History Relation Name Status Comments Brother 1 Alive Brother 2 Alive Father Alive Maternal Grandfather Maternal Grandmother Mother Alive Paternal Grandfather Paternal Grandmother Alive Paternal Uncle Sister Alive Son 1 Alive Son 2 Alive Social History Tobacco Use Types Packs/Day Years Used Date Never Smoker Smokeless Tobacco: Never Used Alcohol Use Standard Drinks/Week Comments Yes 4.2 (1 standard drink = 0.6 oz pure alco hol) Alcohol Habits Answer Date Recorded How often do you have a drink containing Not asked alcohol? How many drinks containing alcohol do you Not asked have on a typical day when you are drinking? How often do you have six or more drinks on Not asked one occasion? Comment: 1 glass -5 x's per week.- 07/18/2010 Sex Assigned at Date Recorded Not on file Obstetrics History Para Term AB IAB SAB Ectopic Multiple Living Live Births 4 3 3 0 1 0 1 0 0 3 2 Date Outcome GA Total Labor/2nd/3rd Weight Sex Delivery Anes PTL Josephine A 1 A5 Name Clin Labor 01/05 Term 39w 24h 00m/ 3.18 kg M Vag Maddi Et /2003 0d (7 lb) ng 08/08 Term 39w 2.81 kg M VAGINAL Maddi Shimon k 0d (6 lb 3 VACU ng oz) 03/27 SAB /01/03 Term 39w 3.54 kg F Vag 8 9 STARF 0d (7 lb IELD, 13 oz) BABY GIRL ( KATHR YN) Delivery Location: [facility] Comments: ARSALAN:ALLEN AMARAL:MAURO Myles Last Filed Vital Signs Vital Sign Reading Time Taken Comments Blood Pressure 120/70 01/12/2017 2:20 PM CDT Pulse 64 01/12/2017 2:20 PM CDT Temperature 36.6 ??C (97.9 ??F) 01/07/2013 8:48 AM CDT Respiratory Rate 14 01/07/2013 9:24 AM CDT Oxygen Saturation 100% 01/07/2013 9:24 AM CDT Inhaled Oxygen Concentration - - Weight 59.4 kg (131 lb) 01/12/2017 2:20 PM CDT Height 169.5 cm (5' 6.75) 01/12/2017 2:20 PM CDT Body Mass Index 20.67 01/12/2017 2:20 PM CDT Plan of Treatment Health Maintenance Due Date Last Done Comments COVID-19 vaccine series (#1) 05/25/1976 Depression screening for age 12+ 1987 Hepatitis C screening for age 0611/23/1993 18-79 BMI (ht and wt on same day) for 01/12/2018 01/12/2017, 06/11 age 18+ Pap test for age 21-65 06/20/2019 06/20/2016, 07/18/2010, 06/15/2009, Additional history exists Tetanus booster 01/06/2020 01/05/2010 Colonoscopy through age 75 11/23/2020 Lipids for age 45-75 11/23/2020 07/18/2010, 05/15/2008, 09/25/2005 Mammogram for age 45-75 11/23/2020 06/28/2016 Influenza for age 9-49 02/09/2022 05/05/2009, 03/24/2009, 05/15/2008, Additional history exists Tdap Completed 01/05/2010 Medical Devices Implanted Type Area Commissioner Of Officials Device Shelf Model / Identifier Expiration Serial / Lot Date Sling Miniarc Precise - [id number] N/A: [employer] 06/26/2015 [id number] / Implanted: Qty: 1 on 01/03/2013 by Ashley Gardner MD at [facility] / [id number] Description: MINI ARC 'PRECISE' MID-URET HRAL SLING Results Not on filefrom Last 3 Months Insurance Payer Benefit Plan / Subscriber ID Effective Dates Phone Addre ss Type Group BLUE [employer] [id number] 2016-Present [address] [address] [place] [address] Advance Directives Latest Code Status on File Code Status Date Activated Date Inactivated Comments Full Code 01/07/2013 8:40 AM 01/07/2013 11:39 AM Full Code 01/03/2010 2:08 PM 01/05/2010 4:29 PM Full Code 01/03/2010 6:21 AM 01/03/2010 6:52 AM Care Teams Law Librarian Relationship Specialty Start Date End Date Aruna Medina CNM PCP - General Obstetrics and Gynecology 06/30/16
--- OUTSIDE RECORDS SUMMARY | 2022-03-06 01:49 | XMS_ITS | Encounter Summary ---
:1975 Author Organization [facility] Address [address] [place] [address] Care Team Providers Name Role Phone Elsewhere, Pcp Primary Care Provider Unavailable Encounter Details Date Type Department Care Team Description 01/02/2022 Clinical Communication Visit Review in [place], [place] [address] [place], [place] [phone] Social History Tobacco Use Types Packs/Day Years [...] or relatives? How often do you attend evangelical or 1 to 4 times per year 02/09 yarsani services? Do you belong to any clubs or Yes 02/26/2021 organizations such as evangelical groups, unions, fraternal or athletic groups, or [...] place to sleep or slept in a long term (including now)? Education Answer Date Recorded What [...] Appointment Laboratory Medicine Debbie Ivey M.D. [address] [place] [phone] 04/13/2022 Office Visit Oncology Walter Barnhart M.D., Ph.D. [address] [place] [phone] documented as of this encounter Visit Diagnoses Not on filedocumented in this encounter Care Teams Financial Aid Officer Relationship Specialty Start Date End Date Elsewhere, Pcp PCP - General Internal Medicine 07/08/21 documented as of this encounter
--- OUTSIDE RECORDS SUMMARY | 2022-03-06 01:49 | XMS_ITS | Encounter Summary ---
:1975 Author Organization [facility] Address [address] [place] [address] Care Team Providers Name Role Phone Elsewhere, Pcp Primary Care Provider Unavailable Encounter Details Date Type Department Care Team Description 11/11/2021 Orders Only Pharmacy Prior Auth Paula Khan [phone] Social History Tobacco Use Types Packs/Day Years [...] or relatives? How often do you attend quaker or 1 to 4 times per year 02/09 anglican services? Do you belong to any clubs or Yes 02/26/2021 organizations such as quaker groups, unions, fraternal or athletic groups, or [...] place to sleep or slept in a prison (including now)? Education Answer Date Recorded What [...] Appointment Laboratory Medicine Debbie Ivey M.D. 200 [place] [phone] 04/13/2022 Office Visit Oncology Walter Barnhart M.D., Ph.D. 200 [place] [phone] documented as of this encounter Visit Diagnoses Not on filedocumented in this encounter Care Teams Group Counselor Relationship Specialty Start Date End Date Elsewhere, Pcp PCP - General Internal Medicine 07/08/21 documented as of this encounter
--- OUTSIDE RECORDS SUMMARY | 2022-03-06 01:49 | XMS_ITS | Encounter Summary ---
:1975 Author Organization [facility] Address [address] [place] [phone] Care Team Providers Name Role Phone Elsewhere, Pcp Primary Care Provider Unavailable Reason for Referral Outpatient (Routine) - Authorized Specialty Diagnoses / Procedures Referred By Contact Refer red To Contact Oncology Debbie Ivey M. D. [address] [phone] Referral ID Status Reason Start Date Expiration Date Visits V isits Requested Authorized [id number] Authorized 01/03/2022 01/03/2023 1 1 Reason for Visit Outpatient (Routine) - Closed Specialty Diagnoses / Procedures Referred By Contact Refer red To Contact Oncology Walter Barnhart M. D., Ph.D. [address] [phone] Referral ID Status Reason Start Date Expiration Date Visits Requ ested Visits Authorized [id number] Closed 11/10/2021 11/10/2022 1 1 Encounter Details Date Type Department Care Team Description 01/03/2022 Office Visit Department of Marychuy Kapoor Malignan t Neoplasm Of Oncology in [facility] NUTRITIONIST, C.N.P., Ovary Laterali ty [place], [place] M.S.N. Unknown (HCC) (Primary [address]x) [place] [phone] Social History Tobacco Use Types Packs/Day Years [...] or relatives? How often do you attend adventist or 1 to 4 times per year 02/09 episcopalian services? Do you belong to any clubs or Yes 02/26/2021 organizations such as adventist groups, unions, fraternal or athletic groups, or [...] place to sleep or slept in a senior living (including now)? Education Answer Date Recorded What is the highest level of school Bachelor's degree (e.g., BA, AB, 02/26/2021 you have completed or the highest BS) degree you have received? Sex Assigned at Date Recorded Female 02/10/2021 8:20 AM CDT documented as of this encounter Last Filed Vital Signs Vital Sign Reading [...] Mass Index 19.79 01/03/2022 1:48 PM CDT documented in this encounter Progress Notes Marychuy Kapoor APRN, C.N.P., M.S.N. - 01/03/2022 2:00 PM CDT SUBJECTIVE CHIEF COMPLAINT/REASON FOR VISIT Ms. Yang is a 46 y.o. woman with stage IVB high-grade serous ovarian cancer Collaborating provider: Dr. Juan Cardona HISTORY OF PRESENT ILLNESS Ms. Yang is a very pleasant 46 y.o. woman with the following oncologic history: Oncology History Malignant Neoplasm Of Ovary Laterality Unknown (HCC) Genetic Testing and Tumor Genotyping Genetic testing in 2020; BRCAnalysis with MyRisk panel from [facility]. Variant of Uncertain Significance (VUS) found in APC gene specifically named [id number] aka [id number]). Somatic testing: HRD Positive, BRCA negative 02/03/2021 Other Ultrasound with bilateral complex solid and cystic ovarian masses. 02/08: CT abdomen/pelvis and MRI pelvis suspicious for high-grade serous carcinoma of ovary, ascites with suspected tumor implants on liver, spleen suspicious for peritoneal carcinomatosis. 02/11/[address] Oviedo of Gynecologic Oncology. CT scan demonstrated mixed solid and multicystic bilateral ovarian masses, peritoneal carcinomatosis, and moderate ascites. Disease involved the liver and spleen. Highest pretreatment CA 125 was 2428. Due to extensive peritoneal carcinomatosis, liver and splenic lesions, and a fixed pelvis, Dr. Oviedo recommended neoadjuvant chemotherapy. 02/16/2021 Biopsy/Pathology Pelvic mass biopsy consistent with high-grade serous carcinoma. Positive for PAX8, p53, p16. 02/25/2021 - 04/13/2021 Chemotherapy CARBOplatin AUC 6 / PACLitaxel ( FILES SUPERVISOR ) Start Date: 02/25/2021 Completed 3 cycles of neoadjuvant chemo. 05/09/[address] Denisha Oviedo: Exploratory laparotomy, total abdominal hysterectomy with bilateral salpingo- oophorectomy, omentectomy, splenectomy, diaphragm stripping, lysis of adhesions, colectomy left with anastomosis. She also had a liver wedge resection with intraoperative ultrasound. 05/09/2021 Biopsy/Pathology Stage IVB high-grade serous carcinoma Carcinoma involves the right fallopian tube and ovary, left ovary, uterine serosa, umbilical nodule,omentum, liver segment 3 and 4B, right diaphragm excision, right anterior abdominal wall, her right pelvic gutter, left mid diaphragm, spleen and serosal surface of the sigmoid colon. 05/30/2021 - 07/11/2021 Chemotherapy CARBOplatin AUC 6 / PACLitaxel ( FILES SUPERVISOR ) Start Date: 02/25/2021 Adjuvant chemotherapy, cycles 4 through 6. No evidence of disease at the completion of therapy. 10/18/2021 - Biological/Targeted/Hormone Therapy Maintenance niraparib. INTERVAL HISTORY: Ms. Angelica Yang is a 46 y.o. woman who presents today for surveillance visit for stage IVB HRDpositive ovarian cancer for which she is on niraparib maintenance therapy. She states that she has overall been doing well since completing treatment. She does occasionally have hot flashes. She reports that her energy is back to normal. She reports some nausea on the niraparib, but denies vomiting. She did not some abdominal swelling which was concerning to her. She reports regular BM. Her only other symptom of note is occasional headaches for which she has going through acupuncture. She is hopefulthat she can be placed on the vaccine trial (CE5279.01 (ECTx) WP8658.01; A phase I trial evaluating a mutanome-directed immunotherapy in patients with high grade serous carcinoma (HGSC) of the ovary, fallopian tube or peritoneum who experience an asymptomatic relapse). REVIEW OF SYSTEMS Pertinent items are noted in HPI; all other review of systems were negative. OBJECTIVE VITAL SIGNS Vitals Blood Pressure: 122/82, Temperature: 36.7 ??C, Temp Source: Tympanic, Pulse Rate: 92, Resp Rate: 16, SpO2: 97 %, Height: 168.5 cm, Weight: 56.2 kg BP Readings from Last 1 Encounters: 01/03/22 122/82 Pulse Readings from Last 1 Encounters: 01/03/22 92 Temp Readings from Last 1 Encounters: 01/03/22 36.7 ??C (Tympanic) No data recorded PHYSICAL EXAMINATION General: Alert and oriented, and in no acute distress. Able to ambulate on and off the exam table without difficulty. ECOG PS of 1. Lymph: No palpable cervical, supraclavicular, axillary, and inguinal lymphadenopathy. Heart: Regular rate and rhythm. Lungs: Clear to auscultation bilaterally. Abdomen: Well healed midline vertical incision. Soft, non-tender, non-distended. Extremities: No pitting edema. No tenderness or erythema. Mental: Mood and affect appropriate for situation. DIAGNOSTICS: I reviewed the pertinent laboratory and diagnostic data. ASSESSMENT / PLAN #1 Malignant Neoplasm Of Ovary Laterality Unknown (HCC) This visit was done in conjunction with Dr. Debbie Ivey. It was a pleasure to meet with Ms. Angelica Yagn today. She is a 46 y.o. woman who presents for surveillance of stage IVB HRD high gradeserous ovarian cancer for which she is on niraparib maintenance. She is overall tolerating niraparibwell and has been on this treatment for the past 2.5 months. We reviewed her labs today which are within acceptable limits. We also reviewed results of her imaging today, which we were pleased to see show no evidence of disease. Regarding her participation in RL6592.01, the phase I trial looking at viral therapy for patients with no evidence of disease, we discussed that unfortunately enrollment closed three weeks ago for thistrial. However, given that patients are still in the screening process, we did discuss that we can add her to the waitlist and have her sign consent in the event that a spot would open up for her to join the trial. We also stated that we would need to confirm whether her tissue biopsy prior to neoadjuvant chemotherapy has enough tissue to qualify for the trial. She did sign consent for the trial today and she has been added to the waitlist. For follow up, we will tentatively schedule her for 3 monthsurveillance visit with plan for pelvic exam at that time. However, if she is able to be added to the trial, we will change follow up by protocol for the trial. In regards to her menopausal symptoms, she feels that she is able to tolerate them well at this time. We may consider referral to the women's health clinic in the future if these symptoms become worse. At the end of discussion, she was amenable to the plan as discussed. All questions were answered andshe had no further concerns. PATIENT EDUCATION Ready to learn, no apparent learning barriers were identified; learning preferences include listening. Explained diagnosis and treatment plan; patient expressed understanding of the content. documented in this encounter Plan of Treatment Upcoming Encounters Date Type Specialty Care Team Description 04/11/2022 Clinical Communication Admitting/Central Scheduling 04/13/2022 Appointment Laboratory Medicine Debbie Ivey M.D. [address] [place] [phone] 04/13/2022 Office Visit Oncology Walter Barnhart M.D., Ph.D. [address] [place] [phone] Scheduled Orders Name Type Priority Associated Diagnoses Order S chedule CBC with Differential, Lab Routine Malignant Neoplasm Of Expected: 04/05/2022 Blood Ovary Laterality Unknown (Ap proximate), (HCC) Expires: 2022 Bilirubin, Total Lab Routine Malignant Neoplasm Of Ex pected: 04/05/2022 Ovary Laterality Unknown (Ap proximate), (HCC) Expires: 2022 AST (Aspartate Lab Routine Malignant Neoplasm Of Expe cted: 04/05/2022 Aminotransferase) Ovary Laterality Unknow n (Approximate), (HCC) Expires: 2022 ALT (Alanine Lab Routine Malignant Neoplasm Of Expect ed: 04/05/2022 Aminotransferase) Ovary Laterality Unknow n (Approximate), (HCC) Expires: 2022 Creatinine with Estimated Lab Routine Malignant Neopl asm Of Expected: 04/05/2022 GFR Ovary Laterality Unknown (Ap proximate), (HCC) Expires: 2022 Cancer Antigen 125 (CA Lab Routine Malignant Neoplasm Of Expected: 04/05/2022 125) Ovary Laterality Unknown (Ap proximate), (HCC) Expires: 2022 Scheduled Referrals Name Type Priority Associated Diagnoses Order S chedule Oncology office Outpatient Referral Routine Expec jace: visit (clinic) 04/05/2022 Surveillance; FILES SUPERVISOR (Approxima te), Expires: 04/05/2023 documented as of this encounter Procedures Procedure Name Priority Date/Time Associated Diagnosis Comme nts CANCER AG 125 (CA Routine 01/03/2022 9:20 AM Malignant Neoplas m Results for this 125), S CDT Of Ovary Laterality procedur e are in Unknown (HCC) the results section. documented in this encounter Results Cancer Antigen 125 (CA 125) (01/03/2022 9:20 AM CDT) P athologist Signature Cancer Ag 125 7 <46 U/mL 01/04/2022 [facility] (CA 125), S 12:19 PM [...] M.S.N. LAB BLOOD ADD-ON Performing Organization Address City/State/ZIP Code Phon e Number [facility] [address] [place] [address] SU[facility]ENTER [facility] [place] [address] Laboratory Medicine and Pathology [address] [place] documented in this encounter Visit Diagnoses Diagnosis Malignant Neoplasm Of Ovary Laterality U nknown (HCC) - Primary documented in this encounter Care Teams Weights And Measures Sealer Relationship Specialty Start Date End Date Elsewhere, Pcp PCP - General Internal Medicine 07/08/21 documented as of this encounter
--- OUTSIDE RECORDS SUMMARY | 2022-03-06 01:49 | XMS_ITS | Encounter Summary ---
:1975 Author Organization [facility] Address [address] [place] [address] Care Team Providers Name Role Phone Elsewhere, Pcp Primary Care Provider Unavailable Reason for Visit Reason Comments Labs Only Encounter Details Date Type Department Care Team Description 12/13/2021 Clinical Communication Department of Oncology Malathi Bear, Labs Only in [facility] [phone] [address] [facility] (Work) [place] [address] Social History Tobacco Use Types Packs/Day Years [...] or relatives? How often do you attend druze or 1 to 4 times per year 02/09 moravian services? Do you belong to any clubs or Yes 02/26/2021 organizations such as druze groups, unions, fraternal or athletic groups, or [...] place to sleep or slept in a usp (including now)? Education Answer Date Recorded What is the highest level of school Bachelor's degree (e.g., BA, AB, 02/26/2021 you have completed or the highest BS) degree you have received? Sex Assigned at Date Recorded Female 02/10/2021 8:20 AM CDT documented as of this encounter Miscellaneous Notes Telephone Encounter - Shamika Cavanaugh - 12/13/2021 3:28 PM CDT Labs have been entered and are ready for review. documented in this encounter Plan of Treatment Upcoming Encounters Date Type Specialty Care Team Description 04/11/2022 Clinical Communication Admitting/Central Scheduling 04/13/2022 Appointment Laboratory Medicine Debbie Ivey M.D. [address] [place] [phone] 04/13/2022 Office Visit Oncology Walter Barnhart M.D., Ph.D. [address] [place] [phone] documented as of this encounter Procedures Procedure Name Priority Date/Time Associated Diagnosis Comme [facility] HEMATOLOGY/ONCOLOGY Routine 12/06/2021 1:39 PM Re sults for this - BLOOD, EXTERNAL CDT procedure are in LAB RESULTS the results section. documented in this encounter Results (ABNORMAL) Hematology/Oncology - Blood, External Lab Results (12/06/2021 1:39 PM CDT) P athologist Signature EXT Hemoglobin 14.1 12.0 - OTHER (SPECIFY 16.0 IN AUDIO/VISUAL MANAGER) EXT Leukocytes 4.78 4.50 - OTHER (SPECIFY 11.00 IN AUDIO/VISUAL MANAGER) EXT Absolute 2.42 1.7 - 7.0 OTHER (SPECIFY Neutrophil IN AUDIO/VISUAL MANAGER) Count EXT Platelet 268 140 - 440 OTHER (SPECIFY Count IN AUDIO/VISUAL MANAGER) EXT AST 50 (A) 12 - 35 OTHER (SPECIFY IN AUDIO/VISUAL MANAGER) EXT ALT 24 4 - 35 OTHER (SPECIFY IN AUDIO/VISUAL MANAGER) EXT Bilirubin, 1.0 0.1 - 1.5 OTHER (SPECIFY Total mg/dL IN AUDIO/VISUAL MANAGER) EXT Cancer 6 OTHER (SPECIFY Antigen 125 (Ca IN AUDIO/VISUAL MANAGER) 125) Comment: <=38 EXT Creatinine 0.7 0.5 - 1.5 mg/dL OTHER (SP ECIFY IN AUDIO/VISUAL MANAGER) Specimen (Source) Anatomical Collection Method Collection Time Re ceived Time Location / / Volume Laterality Blood 12/06/2021 1:39 PM CDT Narrative This result has an attachment that is no t available. Historical Provider LAB BLOOD NON ADD-ON Performing Organization Address City/State/ZIP Code Phon e Number OTHER (SPECIFY IN AUDIO/VISUAL MANAGER) OTHER (SPECIFY IN AUDIO/VISUAL MANAGER) N/A documented in this encounter Visit Diagnoses Not on filedocumented in this encounter Care Teams Health Safety Engineer Relationship Specialty Start Date End Date Elsewhere, Pcp PCP - General Internal Medicine 07/08/21 documented as of this encounter
--- OUTSIDE RECORDS SUMMARY | 2022-03-06 01:49 | XMS_ITS | Encounter Summary ---
:1975 Author Organization [facility] Address [address] [place] [address] Care Team Providers Name Role Phone Elsewhere, Pcp Primary Care Provider Unavailable Encounter Details Date Type Department Care Team Description 01/03/2022 Infusion Department of Oncology Marychuy Kapoor, Malignant Neoplasm Of in [facility] rojelio DENNY, C.N.P., Ovary Laterality [address] [facility] M.S.N. Unknown (HCC) [place], [place] [address] [facility] [phone] [place], [place] [phone] (Wo rk) Social History Tobacco Use Types [...] or relatives? How often do you attend sabianist or 1 to 4 times per year 02/09 gnosticism services? Do you belong to any clubs or Yes 02/26/2021 organizations such as sabianist groups, unions, fraternal or athletic groups, or [...] place to sleep or slept in a [facility] (including now)? Education Answer Date Recorded What [...] Appointment Laboratory Medicine Debbie Ivey M.D. [address] [place] [phone] 04/13/2022 Office Visit Oncology Walter Barnhart M.D., Ph.D. [address] [place] [phone] documented as of this encounter Visit Diagnoses Diagnosis Malignant Neoplasm Of Ovary Laterality U nknown (HCC) documented in this encounter Care Teams Quality Assurance Assessor Relationship Specialty Start Date End Date Elsewhere, Pcp PCP - General Internal Medicine 07/08/21 documented as of this encounter
--- OUTSIDE RECORDS SUMMARY | 2022-03-06 01:50 | XMS_ITS | Encounter Summary ---
:1975 Author Organization [facility] Address [address] [place] [address] Care Team Providers Name Role Phone Elsewhere, Pcp Primary Care Provider Unavailable Encounter Details Date Type Department Care Team Description 07/08/2021 Office Visit Department of Family Ned Sprague Only Medicine in [facility] Daniel RAustin (Primary Dx) [place], [place] [address] [place] [phone] Social History Tobacco Use Types Packs/Day Years [...] or relatives? How often do you attend jewish or 1 to 4 times per year 02/09 congregation services? Do you belong to any clubs or Yes 02/26/2021 organizations such as jewish groups, unions, fraternal or athletic groups, or [...] place to sleep or slept in a care home (including now)? Education Answer Date Recorded What is the highest level of school Bachelor's degree (e.g., BA, AB, 02/26/2021 you have completed or the highest BS) degree you have received? Sex Assigned at Date Recorded Female 02/10/2021 8:20 AM CDT documented as of this encounter Progress Notes Mark Sprague R.N. - 07/08/2021 11:30 AM CST Patient was here for blood draw and vaccinations.Patient said',Ebenezer here for my 3 vaccinations today,last time I had mine in [place]''.Mold Operator Checked for due vaccinations and was unable to see and requested another clinic nurse and discussed with Brenda Blake and And after searching the chart for vaccination details,movie writer called [facility] [facility](nurse practitioner's nurse answered the phone call) and said.,''from [place] they cannot place an order,but patient has to select a primary liz place the order'' the same messege was passed on to the patient and patient was instructed to select a primary MD and make a follow up appointment to place the orders.Patient said,,I Made the appointment 1 week before and why you are telling me today'' why you did not tell me earlier Mold Operator explained to the patient that,movie writer cannot open the chart ahead of a day for patient's detail. Patient understood and left the [facility] clinic after blood draw. IFIED SURGICAL TECHNICIAN documented in this encounter Plan of Treatment Upcoming Encounters Date Type Specialty Care Team Description 04/11/2022 Clinical Communication Admitting/Central Scheduling 04/13/2022 Appointment Laboratory Medicine Debbie Ivey M.D. [address] [place] [phone] 04/13/2022 Office Visit Oncology Walter Barnhart M.D., Ph.D. [address] [place] [phone] documented as of this encounter Visit Diagnoses Diagnosis Immunization Only - Primary documented in this encounter Care Teams Log Operations Coordinator Relationship Specialty Start Date End Date Elsewhere, Pcp PCP - General Internal Medicine 1/28/22 documented as of this encounter
--- OUTSIDE RECORDS SUMMARY | 2022-03-06 01:50 | XMS_ITS | Encounter Summary ---
:1975 Author Organization [facility] Address [address] [place] [address] Care Team Providers Name Role Phone Unavailable Primary Care Provider Unavailable Reason for Visit Reason Comments Intake Assessment Encounter Details Date Type Department Care Team Description 07/06/2021 Clinical Communication Department of Marychuy Kapoor Assessment Oncology in , [facility], C.N.P., M.S.N. [place] [address] [address] [facility] [address] [place] [phone] Social History Tobacco Use Types Packs/Day Years [...] or relatives? How often do you attend sikh or 1 to 4 times per year 02/09 synagogue services? Do you belong to any clubs or Yes 02/26/2021 organizations such as sikh groups, unions, fraternal or athletic groups, or [...] place to sleep or slept in a nursing home (including now)? Education Answer Date Recorded What is the highest level of school Bachelor's degree (e.g., BA, AB, 02/26/2021 you have completed or the highest BS) degree you have received? Sex Assigned at Date Recorded Female 02/10/2021 8:20 AM CDT documented as of this encounter Miscellaneous Notes Telephone Encounter - Arlet Harper - 07/06/2021 11:32 AM CST Intake done IFIED ADAPTIVE PHYSICAL EDUCATOR documented in this encounter Plan of Treatment Upcoming Encounters Date Type Specialty Care Team Description 04/11/2022 Clinical Communication Admitting/Central Scheduling 04/13/2022 Appointment Laboratory Medicine Debbie Ivey M.D. [address] [place] [phone] 04/13/2022 Office Visit Oncology Walter Barnhart M.D., Ph.D. [address] [place] [phone] documented as of this encounter Visit Diagnoses Not on filedocumented in this encounter
--- OUTSIDE RECORDS SUMMARY | 2022-03-06 01:50 | XMS_ITS | Encounter Summary ---
:1975 Author Organization [facility] Address [address] [place] [address] Care Team Providers Name Role Phone Elsewhere, Pcp Primary Care Provider Unavailable Encounter Details Date Type Department Care Team Description 09/12/2021 Orders Only Pharmacy Prior Auth Minerva Galindo [phone] Social History Tobacco Use Types Packs/Day Years [...] or relatives? How often do you attend roman catholic or 1 to 4 times per year 02/09 hoahaoism services? Do you belong to any clubs or Yes 02/26/2021 organizations such as roman catholic groups, unions, fraternal or athletic groups, or [...] place to sleep or slept in a [facility] (including now)? Education Answer Date Recorded What [...] Laboratory Medicine Debbie Ivey M.D. [address] [place] [phone] 04/13/2022 Office Visit Oncology Walter Barnhart M.D., Ph.D. [address] [place] [phone] documented as of this encounter Visit Diagnoses Not on filedocumented in this encounter Care Teams Miller First Relationship Specialty Start Date End Date Elsewhere, Pcp PCP - General Internal Medicine 07/08/21 documented as of this encounter
--- OUTSIDE RECORDS SUMMARY | 2022-03-06 01:50 | XMS_ITS | Encounter Summary ---
:1975 Author Organization [facility] Address [address] [place] [address] Care Team Providers Name Role Phone Elsewhere, Pcp Primary Care Provider Unavailable Reason for Visit Outpatient (Routine) - Closed Specialty Diagnoses / Procedures Referred By Contact Refer red To Contact General Surgery Agnes Drew M.D. [facility] [address] [place] [phone] Referral ID Status Reason Start Date Expiration Date Visits Requ ested Visits Authorized [id number] Closed 05/10/2021 05/10/2022 1 1 Encounter Details Date Type Department Care Team Description 08/09/2021 Telemedicine Division of Wilma Castro Ne oplasm Of Hepatobiliary and Kelly Estrada Ovary Laterality Pancreas Surgery in [address] [facility] W Unknown (HCC) [place], [place] [address] [place] [phone] [place], [place] [phone] (Work) [phone] Social History Tobacco Use Types Packs/Day Years [...] or relatives? How often do you attend adventism or 1 to 4 times per year 02/09 zoroastrianism services? Do you belong to any clubs or Yes 02/26/2021 organizations such as adventism groups, unions, fraternal or athletic groups, or [...] place to sleep or slept in a long-term (including now)? Education Answer Date Recorded What is the highest level of school Bachelor's degree (e.g., BA, AB, 02/26/2021 you have completed or the highest BS) degree you have received? Sex Assigned at Date Recorded Female 02/10/2021 8:20 AM CDT documented as of this encounter Progress Notes Wilma Castro M.D. - 08/09/2021 10:00 AM CST CHIEF COMPLAINT/REASON FOR VISIT Post-Operative Visit VIDEO HISTORY OF PRESENT ILLNESS Angelica Yang is a 45 y.o. female seen in postoperative follow-up. She underwent segment 3 liverwedge resection along the base of the falciform ligament as part of a debulking surgery performed byDr. Oviedo. She is no longer requiring pain medications. She says the incision looks very good with assistance of silicone tape. Also using anti-bacterial hibiclense that she is using. She reports that incisional pain was manageable but the constipation was her biggest struggle. She reports swollen hands and specifically index finger. Reviewed that this is not typically associated with fatty liver and deferred to her med onc team. She asked about her left hemidiaphragm nodule.I defer to Future followup imaging to dispo this spot but is in an area where post-op changes are common. OBJECTIVE PHYSICAL EXAM Video visit precludes full physical exam ASSESSMENT / PLAN Ms. Yang is doing well postoperatively. We discussed the operative findings and expected coursefrom this point and she expressed understanding. All of her questions were answered to her satisfaction. She will contact us if she has any additional questions or concerns. Reviewed pathology report, also reviewed that if an equivocal findings in the future are seen in herliver that we would recommend an MRI -F/u as needed with HPB surg -Continue following with PASTRY ARTIST Onc -Will continue to ask radiologists to comment on liver down the line, if LFTs become affected, can consider involving GIH, should improve off chemo ER OPERATOR INSULATION BOARD documented in this encounter Plan of Treatment Upcoming Encounters Date Type Specialty Care Team Description 04/11/2022 Clinical Communication Admitting/Central Scheduling 04/13/2022 Appointment Laboratory Medicine Debbie Ivey M.D. [address] [place] [phone] 04/13/2022 Office Visit Oncology Walter Barnhart M.D., Ph.D. [address] [place] [address] [phone] documented as of this encounter Visit Diagnoses Diagnosis Malignant Neoplasm Of Ovary Laterality U nknown (HCC) documented in this encounter Care Teams Veneer Redrier Relationship Specialty Start Date End Date Elsewhere, Pcp PCP - General Internal Medicine 07/08/21 documented as of this encounter
--- OUTSIDE RECORDS SUMMARY | 2022-03-06 01:50 | XMS_ITS | Encounter Summary ---
:1975 Author Organization [facility] Address [address] [place] [address] Care Team Providers Name Role Phone Elsewhere, Pcp Primary Care Provider Unavailable Encounter Details Date Type Department Care Team Description 08/05/2021 Clinical Communication Department of Oncology Candie Monahan, in [facility] [address] [facility] [address] [place] [phone] Social History Tobacco Use Types Packs/Day Years [...] or relatives? How often do you attend religious or 1 to 4 times per year 02/09 gnosticist services? Do you belong to any clubs or Yes 02/26/2021 organizations such as religious groups, unions, fraternal or athletic groups, or [...] this encounter Miscellaneous Notes Telephone Encounter - Candie Monahan APRN, C.N.P. - 08/05/2021 1:45 PM SHIPYARD PAINTING SUPERVISOR I returned a call to Ms. Yang , as she was unable to review her CT scan results on the portal and her scans were done yesterday. 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 I feel this is unlikely as her CA 125 is 5 common all other areas look good. She has stable pulmonary nodules, and I would consider her to be in remission. We would likely repeat imaging in 1 year, or earlier if she had symptoms of the CA 125 elevated. She has a follow-up appointment with Dr. Walter Barnhart next week at which time she can look at the imaging with him. YARD PAINTING SUPERVISOR documented in this encounter Plan of Treatment Upcoming Encounters Date Type Specialty Care Team Description 04/11/2022 Clinical Communication Admitting/Central Scheduling 04/13/2022 Appointment Laboratory Medicine Debbie Ivey M.D. 200 [place] [address] 04/13/2022 Office Visit Oncology Walter Barnhart M.D., Ph.D. [address] [place] [phone] documented as of this encounter Visit Diagnoses Not on filedocumented in this encounter Care Teams Watch Repair Person Relationship Specialty Start Date End Date Elsewhere, Pcp PCP - General Internal Medicine 07/08/21 documented as of this encounter
--- OUTSIDE RECORDS SUMMARY | 2022-03-06 01:50 | XMS_ITS | Encounter Summary ---
:1975 Author Organization [facility] Address [address] [place] [address] Care Team Providers Name Role Phone Elsewhere, Pcp Primary Care Provider Unavailable Reason for Visit Reason Comments Labs Only Encounter Details Date Type Department Care Team Description 10/26/2021 Clinical Communication Department of Aruna Hernández Labs Only Oncology in [facility] [place], [place] [address] [facility] [address] [place] [phone] Social History Tobacco Use Types Packs/Day Years [...] or relatives? How often do you attend muslim or 1 to 4 times per year 02/09 restorationist services? Do you belong to any clubs or Yes 02/26/2021 organizations such as muslim groups, unions, fraternal or athletic groups, or [...] place to sleep or slept in a custodial (including now)? Education Answer Date Recorded What is the highest level of school Bachelor's degree (e.g., BA, AB, 02/26/2021 you have completed or the highest BS) degree you have received? Sex Assigned at Date Recorded Female 02/10/2021 8:20 AM CDT documented as of this encounter Miscellaneous Notes Telephone Encounter - Shamika Cavanaugh - 10/31/2021 10:57 AM CDT Labs have been entered and are ready for review. Telephone Encounter - Shamika Cavanaugh - 10/26/2021 10:40 AM CDT See note below. Telephone Encounter - Shamika Cavanaugh - 10/26/2021 8:27 AM CDT Labs have been entered and are ready for review. documented in this encounter Plan of Treatment Upcoming Encounters Date Type Specialty Care Team Description 04/11/2022 Clinical Communication Admitting/Central Scheduling 04/13/2022 Appointment Laboratory Medicine Debbie Ivey M.D. [address] [place] [phone] 04/13/2022 Office Visit Oncology Walter Barnhart M.D., Ph.D. [address] [place] [phone] documented as of this encounter Procedures Procedure Name Priority Date/Time Associated Diagnosis Comme nts HEMATOLOGY/ONCOLOGY Routine 10/25/2021 1:00 PM Re sults for this - BLOOD, EXTERNAL CDT procedure are in LAB RESULTS the results section. HEMATOLOGY/ONCOLOGY Routine 10/25/2021 1:00 PM Re sults for this - BLOOD, EXTERNAL CDT procedure are in LAB RESULTS the results section. documented in this encounter Results (ABNORMAL) Hematology/Oncology - Blood, External Lab Results (10/25/2021 1:00 PM CDT) P athologist Signature EXT AST 47 (A) 12 - 35 OTHER (SPECIFY IN FORKLIFT TRUCK MECHANIC) EXT ALT 21 4 - 35 OTHER (SPECIFY IN FORKLIFT TRUCK MECHANIC) EXT Bilirubin, 1.2 0.1 - 1.5 OTHER (SPECIFY Total mg/dL IN FORKLIFT TRUCK MECHANIC) EXT Cancer 5 OTHER (SPECIFY Antigen 125 IN FORKLIFT TRUCK MECHANIC) (Ca 125) Comment: <=38 EXT Creatinine 0.7 0.5 - 1.5 mg/dL OTHER (SP ECIFY IN FORKLIFT TRUCK MECHANIC) Specimen (Source) Anatomical Collection Method Collection Time Re ceived Time Location / / Volume Laterality Blood 10/25/2021 1:00 PM CDT Narrative This result has an attachment that is no t available. Historical Provider LAB BLOOD NON ADD-ON Performing Organization Address City/State/ZIP Code Phon e Number OTHER (SPECIFY IN FORKLIFT TRUCK MECHANIC) OTHER (SPECIFY IN FORKLIFT TRUCK MECHANIC) N/A Hematology/Oncology - Blood, External Lab Results (10/25/2021 1:00 PM CDT) P athologist Signature EXT Hemoglobin 13.4 12.0 - OTHER (SPECIFY 15.5 IN FORKLIFT TRUCK MECHANIC) EXT Leukocytes 5.10 5.00 - OTHER (SPECIFY 10.00 IN FORKLIFT TRUCK MECHANIC) EXT Absolute 2.52 1.70 - OTHER (SPECIFY Neutrophil 7.00 IN FORKLIFT TRUCK MECHANIC) Count EXT Platelet 287 150 - 450 OTHER (SPECIFY Count IN FORKLIFT TRUCK MECHANIC) Specimen (Source) Anatomical Collection Method Collection Time Re ceived Time Location / / Volume Laterality Blood 10/25/2021 1:00 PM CDT Narrative This result has an attachment that is no t available. Historical Provider LAB BLOOD NON ADD-ON Performing Organization Address City/State/ZIP Code Phon e Number OTHER (SPECIFY IN FORKLIFT TRUCK MECHANIC) OTHER (SPECIFY IN FORKLIFT TRUCK MECHANIC) N/A documented in this encounter Visit Diagnoses Not on filedocumented in this encounter Care Teams Cranberry Bog Supervisor Relationship Specialty Start Date End Date Elsewhere, Pcp PCP - General Internal Medicine 07/08/21 documented as of this encounter
--- OUTSIDE RECORDS SUMMARY | 2022-03-06 01:50 | XMS_ITS | Encounter Summary ---
:1975 Author Organization [facility] Address [address] [place] [address] Care Team Providers Name Role Phone Elsewhere, Pcp Primary Care Provider Unavailable Encounter Details Date Type Department Care Team Description 08/05/2021 Clinical Communication Department of Oncology Candie Monahan, in [facility], C.N.[facility] [address] [facility] [address] [place] [phone] Social History Tobacco Use Types Packs/Day Years [...] or relatives? How often do you attend temple or 1 to 4 times per year 02/09 restorationist services? Do you belong to any clubs or Yes 02/26/2021 organizations such as temple groups, unions, fraternal or athletic groups, or [...] Laboratory Medicine Debbie Ivey M.D. [address] [place] [phone] 04/13/2022 Office Visit Oncology Walter Barnhart M.D., Ph.D. [address] [place] [phone] documented as of this encounter Visit Diagnoses Not on filedocumented in this encounter Care Teams Social Media Strategist Relationship Specialty Start Date End Date Elsewhere, Pcp PCP - General Internal Medicine 07/08/21 documented as of this encounter
--- OUTSIDE RECORDS SUMMARY | 2022-03-06 01:50 | XMS_ITS | Encounter Summary ---
:1975 Author Organization [facility] Address [address] [place] [phone] Care Team Providers Name Role Phone Elsewhere, Pcp Primary Care Provider Unavailable Reason for Visit Reason Comments Immunizations Encounter Details Date Type Department Care Team Description 07/08/2021 Clinical Communication Department of Denisha Oviedo Immunizations Obstetrics and [facility] in [address] [place] [address] [place] [phone] [place], [place] [phone] (Work) [phone] Social History Tobacco Use Types Packs/Day Years [...] or relatives? How often do you attend sabianism or 1 to 4 times per year 02/09 bahai services? Do you belong to any clubs or Yes 02/26/2021 organizations such as sabianism groups, unions, fraternal or athletic groups, or [...] this encounter Miscellaneous Notes Telephone Encounter - Jessica Uribe APRN, C.N.P. - 07/08/2021 12:26 PM NOTCH MACHINE OPERATOR Orders placed for her vaccines and an appointment for 07/11/21. Please schedule. H MACHINE OPERATOR Telephone Encounter - Arlene Archibald - 07/08/2021 12:11 PM CST Patient was to have immunizations at the [facility] today and she was turned away stating that she needed to establish care before they would give them to her. She wonders if these can be done when she comes for chemotherapy on Sunday, 07/11. The call was transferred from Medical Oncology. Per Jossie in Med Onc, their DISTRICT SCOUT EXECUTIVE said the orders would need to come from Dr. Oviedo. Please call patient to make necessary arrangements for Sunday if at all possible. H MACHINE OPERATOR documented in this encounter Plan of Treatment Upcoming Encounters Date Type Specialty Care Team Description 04/11/2022 Clinical Communication Admitting/Central Scheduling 04/13/2022 Appointment Laboratory Medicine Debbie Ivey M.D. [address] [place] [phone] 04/13/2022 Office Visit Oncology Walter Barnhart M.D., Ph.D. [address] [place] [phone] documented as of this encounter Visit Diagnoses Not on filedocumented in this encounter Care Teams Inspector Penetrant Relationship Specialty Start Date End Date Elsewhere, Pcp PCP - General Internal Medicine 07/08/21 documented as of this encounter
--- OUTSIDE RECORDS SUMMARY | 2022-03-06 01:50 | XMS_ITS | Encounter Summary ---
:1975 Author Organization [facility] Address [address] [place] [address] Care Team Providers Name Role Phone Elsewhere, Pcp Primary Care Provider Unavailable Reason for Visit Episode Based Medications (Routine) - Authorized Specialty Diagnoses / Procedures Referred By Contact Refer red To Contact Diagnoses Malignant Neoplasm Of Ovary Laterality Unknown (HCC) Walter Barnhart M.D., R st Onc [facility] Procedures [place] CARBOPLATIN INJECTION NY PACLITAXEL INJECTION [place] INJECTION, PEGFILGRASTIM 6MG [place] DEXAMETHASONE SODIUM PHOS Ph.D. [address] [facility] [address] [place] [phone] Referral ID Status Reason Start Date Expiration Date Visits V isits Requested Authorized [id number] Authorized 02/17/2021 02/17/2022 12 12 Encounter Details Date Type Department Care Team Description 07/11/2021 Office Visit Department of Marychuy Kapoor Malignan t Neoplasm Of Ovary Laterality Unknown (HCC); Oncology in CARD FEEDER, C.N.P., Neutropenia Dr hannah Lorenzo (HCC) [place], [place] M.S.N. [address] [facility] [address] [place] [phone] Social History Tobacco Use Types Packs/Day Years [...] or relatives? How often do you attend christian or 1 to 4 times per year 02/09 jewish services? Do you belong to any clubs or Yes 02/26/2021 organizations such as christian groups, unions, fraternal or athletic groups, or [...] Sign Reading Time Taken Comments Blood Pressure 149/97 07/11/2021 9:41 AM GROUP CONTROLLER Pulse 73 07/11/2021 9:41 AM GROUP CONTROLLER Temperature 36.6 ??C (97.9 ??F) 07/11/2021 9:41 AM GROUP CONTROLLER Respiratory Rate 16 07/11/2021 9:41 AM GROUP CONTROLLER Oxygen Saturation 100% 07/11/2021 9:41 AM GROUP CONTROLLER Inhaled Oxygen Concentration - - Weight 55.7 kg (122 lb 12.7 oz) 07/11/2021 9:41 AM GROUP CONTROLLER Height 169.2 cm (5' 6.61) 07/11/2021 9:41 AM GROUP CONTROLLER Body Mass Index 19.46 07/11/2021 9:41 AM GROUP CONTROLLER documented in this encounter Progress Notes Marychuy Kapoor APRN, C.N.P., M.S.N. - 07/11/2021 9:40 AM CST CHIEF COMPLAINT/PUPROSE OF VISIT: Ms. Yang is a 45 y.o. woman with stage IVB high-grade serous ovarian cancer Collaborating provider: Dr. Walter Barnhart [phone]) HISTORY OF PRESENT ILLNESS: Ms. Yang is a very pleasant 45 y.o. woman with the following oncologic history: Oncology History Malignant Neoplasm Of Ovary Laterality Unknown (HCC) Genetic Testing and Tumor Genotyping Genetic testing in 2020; BRCAnalysis with MyRisk panel from [facility]. Variant of Uncertain Significance (VUS) found in APC gene specifically named [id number] aka [id number]). Somatic testing ordered 06/22/21 02/03/2021 Other Ultrasound with bilateral complex solid [...] Chemotherapy CARBOplatin AUC 6 / PACLitaxel ( FACTORY WORKER ) Start Date: 02/25/2021 Completed 3 cycles [...] surface of the sigmoid colon. 05/30/2021 - Chemotherapy CARBOplatin AUC 6 / PACLitaxel ( FACTORY WORKER ) Start Date: 02/25/2021 Adjuvant chemotherapy, cycles 4 through 6. INTERVAL HISTORY: presents today with her for evaluation in anticipation of her 6th and final planned cycle of chemotherapy for her newly diagnosed ovarian cancer. She reports she tolerated her 5th cycle overall well, however, notes that she feels like each cycle ???adds a day?? in which she feelsmore unwell. She notes that she was experiencing headaches with her antiemetic medications, therefore, did not take any this last cycle. She notes she did still experience a headache. She denies any significant issues with myalgias/arthralgias. She notes she did have a episode of a ???weird sensation?? in her left pointer finger, but this has since resolved. She otherwise denies any significant issue with neuropathy. She notes that she is no longer taking any stool softener/laxatives for bowel regulation, is passing normal bowel movements. She continues to note a tight sensation in her abdomen post surgery, but notes she is doing stretching exercises in this regard. She feels that her cramping and abdominal discomfort is improving with time. She does not experiencing facial flushing and puffiness following each treatment with chemotherapy. She also notes that she did have a rash on the back of her head post her last cycle of treatment. She notes this was not tremendously that she, however, shenotes she was touching it a lot?? . She denies urinary concerns, shortness of breath, or vaginal bleeding/discharge. ROS: Pertinent items are noted in HPI; all other review of systems were negative. VITAL SIGNS: Vitals Blood Pressure: (!) 149/97, Temperature: 36.6 ??C, Temp Source: Tympanic, Pulse Rate: 73, Resp Rate: 16, SpO2: 100 %, Height: 169.2 cm, Weight: 55.7 kg BP Readings from Last 1 Encounters: 07/11/21 (!) 149/97 Pulse Readings from Last 1 Encounters: 07/11/21 73 Temp Readings from Last 1 Encounters: 07/11/21 36.6 ??C (Tympanic) Rate your distress: 1 PHYSICAL EXAM: General: Alert and oriented, and in no acute distress. Able to ambulate on and off the exam table without difficulty. ECOG PS 1. Lymph: No palpable cervical, supraclavicular, axillary, and inguinal lymphadenopathy. Heart: Regular rate and rhythm. Lungs: Clear to auscultation bilaterally. Abdomen: Soft, non-tender, non-distended. Extremities: No pitting edema. No tenderness or erythema. Mental: Mood and affect appropriate for situation. DIAGNOSTICS: I reviewed the pertinent laboratory and diagnostic data. ASSESSMENT/PLAN: #1 Malignant Neoplasm Of Ovary Laterality Unknown (HCC) presents today for evaluation in anticipation of her 6th and final planned cycle of carboplatin and paclitaxel chemotherapy for her newly diagnosed ovarian cancer. We reviewed results of her labs, which are acceptable to proceed with treatment today. She has tolerated treatment overall well, and has no dose- limiting toxicity per history or examination. Of note, she did describe having facial flushing and puffiness post each cycle of chemotherapy. We discussed that this is likely due tothe effect of the steroid she is receiving. Seeing as she has had no issue with reaction with treatment up to this point, I will go ahead and reduce the dose of her dexamethasone today. In regard to the rash on the back of her head, she notes that this was mild and very tolerable. We did discuss use of topical hydrocortisone if she is having any itching or she could use fragrance free lotion to the area as well. Treatment plan was completed to reflect the above mentioned change. Of note, she is scheduled to return in roughly 3 and half weeks for her imaging and evaluation post completion of treatment. Unfortunately, her has a commitment that requires him to be out of town during this time as it is scheduled currently. We will see if there is any way to adjust the schedule moving forward so that he may be present for this visit. She verbalized understanding of the above information, as nofurther questions or concerns at this time. She agrees to contact us in the interim if she would develop any new or concerning symptoms prior to her next planned return visit. PATIENT EDUCATION Ready to learn, no apparent learning barriers were identified; learning preferences include listening. Explained diagnosis and treatment plan; patient expressed understanding of the content. P CONTROLLER documented in this encounter Plan of Treatment Upcoming Encounters Date Type Specialty Care Team Description 04/11/2022 Clinical Communication Admitting/Central Scheduling 04/13/2022 Appointment Laboratory Medicine Debbie Ivey M.D. [address] [place] [phone] 04/13/2022 Office Visit Oncology Walter Barnhart M.D., Ph.D. [address] [place] [phone] documented as of this encounter Visit Diagnoses Diagnosis 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 Care Teams Waste Disposal Plant Operator Relationship Specialty Start Date End Date Elsewhere, Pcp PCP - General Internal Medicine 07/08/21 documented as of this encounter
--- OUTSIDE RECORDS SUMMARY | 2022-03-06 01:50 | XMS_ITS | Encounter Summary ---
:1975 Author Organization [facility] Address [address] [place] [address] Care Team Providers Name Role Phone Elsewhere, Pcp Primary Care Provider Unavailable Reason for Visit Reason Comments Labs Only Encounter Details Date Type Department Care Team Description 11/02/2021 Clinical Communication Department of Aruna Hernández Labs Only Oncology in M.S.N., R.N. [place], [place] [address] [address] [place] [phone] Social History Tobacco Use Types Packs/Day Years [...] or relatives? How often do you attend scientologist or 1 to 4 times per year 02/09 yarsanism services? Do you belong to any clubs or Yes 02/26/2021 organizations such as scientologist groups, unions, fraternal or athletic groups, or [...] Notes Telephone Encounter - Shamika Cavanaugh - 11/02/2021 7:56 AM CDT Labs have been entered and are ready for review. documented in this encounter Plan of Treatment Upcoming Encounters Date Type Specialty Care Team Description 04/11/2022 Clinical Communication Admitting/Central Scheduling 04/13/2022 Appointment Laboratory Medicine Debbie Ivey M.D. [address] [place] [phone] 04/13/2022 Office Visit Oncology Walter Barnhart M.D., Ph.D. [address] [place] [phone] documented as of this encounter Procedures Procedure Name Priority Date/Time Associated Diagnosis Comme nts HEMATOLOGY/ONCOLOGY Routine 11/01/2021 1:15 PM Re sults for this - BLOOD, EXTERNAL CDT procedure are in LAB RESULTS the results section. documented in this encounter Results (ABNORMAL) Hematology/Oncology - Blood, External Lab Results (11/01/2021 1:15 PM CDT) P athologist Signature EXT Hemoglobin 13.1 12.0 - OTHER (SPECIFY 15.5 IN CAFETERIA ATTENDANT) EXT Leukocytes 5.01 5.00 - OTHER (SPECIFY 10.00 IN CAFETERIA ATTENDANT) EXT Absolute 2.60 1.70 - OTHER (SPECIFY Neutrophil 7.00 IN CAFETERIA ATTENDANT) Count EXT Platelet 252 150 - 450 OTHER (SPECIFY Count IN CAFETERIA ATTENDANT) EXT AST 45 (A) 12 - 35 OTHER (SPECIFY IN CAFETERIA ATTENDANT) EXT ALT 21 4 - 35 OTHER (SPECIFY IN CAFETERIA ATTENDANT) EXT Bilirubin, 1.0 0.1 - 1.5 OTHER (SPECIFY Total mg/dL IN CAFETERIA ATTENDANT) EXT Creatinine 0.7 0.5 - 1.5 OTHER (SPECIFY mg/dL IN CAFETERIA ATTENDANT) Specimen (Source) Anatomical Collection Method Collection Time Re ceived Time Location / / Volume Laterality Blood 11/01/2021 1:15 PM CDT Historical Provider LAB BLOOD NON ADD-ON Performing Organization Address City/State/ZIP Code Phon e Number OTHER (SPECIFY IN CAFETERIA ATTENDANT) OTHER (SPECIFY IN CAFETERIA ATTENDANT) N/A documented in this encounter Visit Diagnoses Not on filedocumented in this encounter Care Teams Maxillofacial Prosthodontist Relationship Specialty Start Date End Date Elsewhere, Pcp PCP - General Internal Medicine 07/08/21 documented as of this encounter
--- OUTSIDE RECORDS SUMMARY | 2022-03-06 01:50 | XMS_ITS | Encounter Summary ---
:1975 Author Organization [facility] Address [address] [place] [address] Care Team Providers Name Role Phone Elsewhere, Pcp Primary Care Provider Unavailable Encounter Details Date Type Department Care Team Description 09/16/2021 Orders Only Pharmacy Prior Auth Melanie Pickens I. [phone] Social History Tobacco Use Types Packs/Day Years [...] or relatives? How often do you attend shinto or 1 to 4 times per year 02/09 confucianist services? Do you belong to any clubs or Yes 02/26/2021 organizations such as shinto groups, unions, fraternal or athletic groups, or [...] Laboratory Medicine Debbie Ivey M.D. [address] [place] [phone] 04/13/2022 Office Visit Oncology Walter Barnhart M.D., Ph.D. [address] [place] [phone] documented as of this encounter Visit Diagnoses Not on filedocumented in this encounter Care Teams Health It Specialist Relationship Specialty Start Date End Date Elsewhere, Pcp PCP - General Internal Medicine 07/08/21 documented as of this encounter
--- OUTSIDE RECORDS SUMMARY | 2022-03-06 01:50 | XMS_ITS | Encounter Summary ---
:[address] [facility] Address [address] [place] [address] Care Team Providers Name Role Phone Elsewhere, Pcp Primary Care Provider Unavailable Reason for Visit Reason Comments Immunizations Encounter Details Date Type Department Care Team Description 07/11/2021 Nurse Only Section of Preventive, Jessica Uribe Im munizations Transportation and Kaylah BALDWIN Occupational Medicine in [address] [place], [place] [address] [place] [phone] [place] [phone] Social History Tobacco Use Types Packs/Day Years [...] 1 to 4 times per year 02/09 zoroastrian services? 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 [address] [place] [phone] 04/13/2022 Office Visit Oncology Walter Barnhart M.D., Ph.D. [address] [place] [phone] documented as of this encounter Visit Diagnoses Diagnosis Neutropenia Drug Induced (HCC) - Primary documented in this encounter Care Teams Cloth Bin Packer Relationship Specialty Start Date End Date Elsewhere, Pcp PCP - General Internal Medicine 07/08/21 documented as of this encounter
--- OUTSIDE RECORDS SUMMARY | 2022-03-06 01:50 | XMS_ITS | Encounter Summary ---
:1975 Author Organization [facility] Address [address] [place] [address] Care Team Providers Name Role Phone Elsewhere, Pcp Primary Care Provider Unavailable Reason for Visit Reason Comments Labs Only Encounter Details Date Type Department Care Team Description 09/13/2021 Clinical Communication Department of Mamie Rees Labs Only Oncology in D, M.S.N., R.N. [place], [place] [address] [facility] [address] [place] [phone] Social History Tobacco Use Types Packs/Day Years [...] or relatives? How often do you attend yazdanism or 1 to 4 times per year 02/09 sabianism services? Do you belong to any clubs or Yes 02/26/2021 organizations such as yazdanism groups, unions, fraternal or athletic groups, or [...] place to sleep or slept in a halfway (including now)? Education Answer Date Recorded What is the highest level of school Bachelor's degree (e.g., BA, AB, 02/26/2021 you have completed or the highest BS) degree you have received? Sex Assigned at Date Recorded Female 02/10/2021 8:20 AM CDT documented as of this encounter Miscellaneous Notes Telephone Encounter - Shamika Cavanaugh - 09/15/2021 10:24 AM CDT Labs have been entered and are ready for review. Telephone Encounter - Mamie Rees, M.S.N., R.N. - 09/13/2021 12:25 PM CDT Verified Telephone Encounter - Shamika Cavaanugh - 09/13/2021 12:00 PM CDT Labs have been entered and are ready for review. Telephone Encounter - Shamika Cavanaugh - 09/13/2021 9:22 AM CDT Labs have been entered and are ready for review. documented in this encounter Plan of Treatment Upcoming Encounters Date Type Specialty Care Team Description 04/11/2022 Clinical Communication Admitting/Central Scheduling 04/13/2022 Appointment Laboratory Medicine Debbie Ivey M.D. [address] [place] [phone] 04/13/2022 Office Visit Oncology Walter Barnhart M.D., Ph.D. [address] [place] [phone] documented as of this encounter Procedures Procedure Name Priority Date/Time Associated Diagnosis Comme nts HEMATOLOGY/ONCOLOGY Routine 09/12/2021 4:00 PM Re sults for this - BLOOD, EXTERNAL CDT procedure are in LAB RESULTS the results section. HEMATOLOGY/ONCOLOGY Routine 09/12/2021 4:00 PM Re sults for this - BLOOD, EXTERNAL CDT procedure are in LAB RESULTS the results section. HEMATOLOGY/ONCOLOGY Routine 09/12/2021 4:00 PM Re sults for this - BLOOD, EXTERNAL CDT procedure are in LAB RESULTS the results section. documented in this encounter Results Hematology/Oncology - Blood, External Lab Results (09/12/2021 4:00 PM CDT) P athologist Signature EXT Cancer 6 OTHER (SPECIFY Antigen 125 (Ca IN ANALYTICAL TECH) 125) Comment: <=38 EXT Immunoglobulin A (IgA), S OTHER (SPECIFY IN ANALYTICAL TECH) EXT Immunoglobulin D (IgD), S OTHER (SPECIFY IN ANALYTICAL TECH) EXT Immunoglobulin E (IgE), S OTHER (SPECIFY IN ANALYTICAL TECH) EXT Immunoglobulin G (IgG), S OTHER (SPECIFY IN ANALYTICAL TECH) EXT Immunoglobulin M (IgM), S OTHER (SPECIFY IN ANALYTICAL TECH) Specimen (Source) Anatomical Collection Method Collection Time Re ceived Time Location / / Volume Laterality Blood 09/12/2021 4:00 PM CDT Narrative This result has an attachment that is no t available. Historical Provider LAB BLOOD NON ADD-ON Performing Organization Address City/State/ZIP Code Phon e Number OTHER (SPECIFY IN ANALYTICAL TECH) OTHER (SPECIFY IN ANALYTICAL TECH) N/A (ABNORMAL) Hematology/Oncology - Blood, External Lab Results (09/12/2021 4:00 PM CDT) [facility] gist Method Time Signature EXT AST 38 (A) 12 - 35 OTHER (SPECIFY IN ANALYTICAL TECH) EXT ALT 26 4 - 35 OTHER (SPECIFY IN ANALYTICAL TECH) EXT Bilirubin, 1.2 0.1 - 1.5 OTHER Total mg/dL (SPECIFY IN ANALYTICAL TECH) EXT Creatinine 0.5 0.5 - 1.5 OTHER mg/dL (SPECIFY IN ANALYTICAL TECH) EXT Immunoglobulin OTHER A (IgA), S (SPECIFY IN ANALYTICAL TECH) EXT Immunoglobulin OTHER D (IgD), S (SPECIFY IN ANALYTICAL TECH) EXT Immunoglobulin OTHER E (IgE), S (SPECIFY IN ANALYTICAL TECH) EXT Immunoglobulin OTHER G (IgG), S (SPECIFY IN ANALYTICAL TECH) EXT Immunoglobulin OTHER M (IgM), S (SPECIFY IN ANALYTICAL TECH) Specimen (Source) Anatomical Collection Method Collection Time Re ceived Time Location / / Volume Laterality Blood 09/12/2021 4:00 PM CDT Historical Provider LAB BLOOD NON ADD-ON Performing Organization Address City/State/ZIP Code Phon e Number OTHER (SPECIFY IN ANALYTICAL TECH) OTHER (SPECIFY IN ANALYTICAL TECH) N/A Hematology/Oncology - Blood, External Lab Results (09/12/2021 4:00 PM CDT) [facility] gist Method Time Signature EXT Hemoglobin 13.6 12.0 - OTHER 15.5 (SPECIFY IN ANALYTICAL TECH) EXT Leukocytes 5.44 5.00 - OTHER 10.00 (SPECIFY IN ANALYTICAL TECH) EXT Absolute 2.80 1.70 - OTHER Neutrophil Count 7.00 (SPECIFY IN ANALYTICAL TECH) EXT Platelet Count 368 150 - 450 OTHER (SPECIFY IN ANALYTICAL TECH) EXT Immunoglobulin OTHER A (IgA), S (SPECIFY IN ANALYTICAL TECH) EXT Immunoglobulin OTHER D (IgD), S (SPECIFY IN ANALYTICAL TECH) EXT Immunoglobulin OTHER E (IgE), S (SPECIFY IN ANALYTICAL TECH) EXT Immunoglobulin OTHER G (IgG), S (SPECIFY IN ANALYTICAL TECH) EXT Immunoglobulin OTHER M (IgM), S (SPECIFY IN ANALYTICAL TECH) Specimen (Source) Anatomical Collection Method Collection Time Re ceived Time Location / / Volume Laterality Blood 09/12/2021 4:00 PM CDT Historical Provider LAB BLOOD NON ADD-ON Performing Organization Address City/State/[facility] Code Phon e Number OTHER (SPECIFY IN ANALYTICAL TECH) OTHER (SPECIFY IN ANALYTICAL TECH) N/A documented in this encounter Visit Diagnoses Not on filedocumented in this encounter Care Teams Barrow Worker Helper Relationship Specialty Start Date End Date Elsewhere, Pcp PCP - General Internal Medicine 07/08/21 documented as of this encounter
--- OUTSIDE RECORDS SUMMARY | 2022-03-06 01:50 | XMS_ITS | Encounter Summary ---
:1975 Author Organization [facility] Address [address] [place] [address] Care Team Providers Name Role Phone Unavailable Primary Care Provider Unavailable Reason for Visit Reason Comments Post-op Visit Outpatient (Routine) - Closed Specialty Diagnoses / Procedures Referred By Contact Refer red To Contact Obstetrics and Ruben Rod M.D. [facility] [address] [place] [phone] Referral ID Status Reason Start Date Expiration Date Visits Requ ested Visits Authorized [id number] Closed 05/13/2021 05/13/2022 1 1 Encounter Details Date Type Department Care Team Description 06/22/2021 Office Visit Department of Jessica Uribe Malignant N eoplasm Of Ovary Laterality Unknown (HCC) (Primary Dx); Obstetrics and DENNY, R.N. Follow Up Examination Postoperative Visi t Gynecology in [address] [place] [address] [place] [phone] [place], [place] [phone] (Work) [phone] Social History Tobacco Use Types Packs/Day Years [...] or relatives? How often do you attend judaism or 1 to 4 times per year 02/09 lutheran services? Do you belong to any clubs or Yes 02/26/2021 organizations such as judaism groups, unions, fraternal or athletic groups, or [...] place to sleep or slept in a mcc (including now)? Education Answer Date Recorded What is the highest level of school Bachelor's degree (e.g., BA, AB, 02/26/2021 you have completed or the highest BS) degree you have received? Sex Assigned at Date Recorded Female 02/10/2021 8:20 AM CDT documented as of this encounter Progress Notes Jessica Uribe APRN, C.N.P. - 06/22/2021 11:30 AM CST Subjective Angelica Yang is a 45 y.o. female who presents to the clinic for a six week postop exam. On May 09, 2021 she underwent exploratory laparotomy, abdominal hysterectomy, bilateral salpingo-oophorectomy, omentectomy, tumor debulking, splenectomy, lysis of adhesions, diaphragm stripping, colectomywith anastomosis, liver resection and ureteral stent placement for a stage IVB serous ovarian carcinoma. This was done after completing three cycles of neoadjuvant chemotherapy. Her surgery itself was uncomplicated. She was discharged home on May 14, 2021. The patient has resumed chemotherapy and has one cycle remaining. The patient did get her initial splenectomy vaccines. Patient states today she is feeling tired as she had chemotherapy two days ago. She is also dealing with some constipation due to chemotherapy, but is taking stool softeners and has MiraLax and we use this if needed. She states her bladder is functioning well. She is pleased with how her incision is healing, but does have one suture that is bothersome. She is using a silicone tape over the incision to aid with healing. Patient's weight is stable. She denies any vaginal bleeding or abnormal discharge. The patient is dealing with some hot flashes and night sweats. She [facility] not [facility] with [facility]. Patient had negative germline BRCA testing, but was found to have a variant on uncertain significance. She does need somatic testing ordered. Objective There were no vitals taken for this visit. General: alert, appears stated age and cooperative Abdomen: soft, non-tender Incision: healing well, no drainage, no erythema, no hernia, no seroma, no swelling, no dehiscence, incision well approximated there is one palpable suture knot noted on the upper portion of her incision, but no separation or seroma noted. Pelvic: External genitalia appears normal. A regular sized speculum was used to visualized the vaginal vault. Vaginal cuff is intact without granulation tissue or concern for separation. Upon bimanual exam, patient???s vaginal cuff is non- tender. No evidence of separation or fullness. 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 I discussedthat the one palpable suture knot should soften up in resolve in the coming weeks to months. Howeverif this worsens in any way, or she notices any drainage or separation of the incision she is aware to contact us for repeat evaluation. She may be resuming all regular activities as tolerated. We discussed using lubricant and taking things slow when she feels up to resuming intercourse. I also viewed with the patient the role of the [facility] and the cancer survivorship program. She was sent with a brochure regarding there services. She will let us or Medical Oncology know if she decidesto pursue a consultation. I will order somatic testing on her tumor given that her germline testing was negative for BRCA1 or two mutation. Patient is aware those results will take approximately three weeks to return, and thoseresults will be communicated to her medical oncology team here. PRINT DEVELOPER documented in this encounter Plan of Treatment Upcoming Encounters Date Type Specialty Care Team Description 04/11/2022 Clinical Communication Admitting/Central Scheduling 04/13/2022 Appointment Laboratory Medicine Debbie Ivey M.D. [address] [place] [phone] 04/13/2022 Office Visit Oncology Walter Barnhart M.D., Ph.D. [address] [place] [phone] documented as of this encounter Visit Diagnoses Diagnosis Malignant Neoplasm Of Ovary Laterality U nknown (HCC) - Primary Follow Up Examination Postoperative Visi t documented in this encounter
--- OUTSIDE RECORDS SUMMARY | 2022-03-06 01:50 | XMS_ITS | Encounter Summary ---
:1975 Author Organization [facility] Address [address] [place] [address] Care Team Providers Name Role Phone Elsewhere, Pcp Primary Care Provider Unavailable Encounter Details Date Type Department Care Team Description 07/11/2021 Clinical Communication Department of Walter Barnhart Oncology in M.D., Ph.D. [place], [place] [address] [facility] [address] [place] [phone] Social History Tobacco Use Types Packs/Day Years [...] 1 to 4 times per year 02/09 mormonism services? Do you belong to any clubs [...] Appointment Laboratory Medicine Debbie Ivey M.D. [address] [place] [phone] 04/13/2022 Office Visit Oncology Walter Barnhart M.D., Ph.D. [address] [place] [phone] documented as of this encounter Visit Diagnoses Not on filedocumented in this encounter Care Teams Green Belt Relationship Specialty Start Date End Date Elsewhere, Pcp PCP - General Internal Medicine 07/08/21 documented as of this encounter
--- OUTSIDE RECORDS SUMMARY | 2022-03-06 01:50 | XMS_ITS | Encounter Summary ---
:1975 Author Organization [facility] Address [address] [place] [address] Care Team Providers Name Role Phone Elsewhere, [...] [place] DEXAMETHASONE SODIUM PHOS Ph.D. [address] [facility] [address] [place] [phone] Referral ID Status Reason Start Date Expiration Date Visits V isits Requested Authorized [id number] Authorized 02/17/2021 02/17/2022 12 12 Encounter Details Date Type Department Care Team Description 07/11/2021 Infusion Department of Oncology Marychuy Kapoor, Malignant Neoplasm Of Ovary Laterality Unknown (HCC) (Primary Dx); in [facility] rojelio VETERINARY PRACTITIONER, C.N.P., Neutropenia Drug Induced (HC C) [address] [facility] M.S.N. [place], [place] [address] [place] [phone] [place], [place] [phone] (Wo rk) Social History Tobacco Use Types [...] or relatives? How often do you attend nondenominational or 1 to 4 times per year 02/09 anabaptist services? Do you belong to any clubs or Yes 02/26/2021 organizations such as nondenominational groups, unions, fraternal or athletic groups, or [...] Appointment Laboratory Medicine Debbie Ivey M.D. 200 [place] [phone] 04/13/2022 Office Visit Oncology Walter Barnhart M.D., Ph.D. [address] [place] [address] documented as of this encounter Visit Diagnoses Diagnosis Malignant Neoplasm Of Ovary Laterality U nknown (HCC) - Primary Neutropenia Drug Induced (HCC) documented in this encounter Administered Medications Inactive Administered Medications - up to 3 most recent administrations Medication Order MAR Action Action Date Dose Rate Site CARBOplatin 700 mg in NaCl New Bag 07/11/2021 3:03 PM CASTING MACHINE OPERATOR AUTOMATIC 700 mg 690 mL/hr 0.9% 345 mL IVPB (PARAPLATIN) 700 mg (rounded from 697.8 mg, Target AUC = 6), intravenous, at 690 mL/hr, Administer over 30 Minutes, Once, On 07/11/21 at 1445, For 1 dose dexAMETHasone injection 8 mg (DECADRON) Given 07/11/2021 11:22 AM CASTING MACHINE OPERATOR AUTOMATIC 8 mg 8 mg, intravenous, Once, On Sun07/11/21 at 1115, For 1 dose, Give prior to PACLitaxel diphenhydrAMINE 50 mg in NaCl 0.9% New Bag 07/11/2021 11:44 AM CASTING MACHINE OPERATOR AUTOMATIC 50 mg 204 mL/hr IVPB (BENADRYL) 50 mg, intravenous, at 204 mL/hr, Administer over 15 Minutes, Once, On Sun07/11/21 at 1115, For 1 dose, Pre taxol. ivpb vs ivp to help with symptoms famotidine injection 20 mg (PEPCID) Given 07/11/2021 11:22 AM CASTING MACHINE OPERATOR AUTOMATIC 20 mg 20 mg, intravenous, Once, On Sun07/11/21 at 1115, For 1 dose, Give prior to PACLitaxel See IVAG for administration guidelines. fosaprepitant in NaCl 0.9% IVPB New Bag 07/11/2021 12:02 PM CS T 150 mg 500 mL/hr 150 mg (EMEND) 150 mg, intravenous, at 500 mL/hr, Administer over 30 Minutes, Once, On Sun07/11/21 at 1115, For 1 dose, Incompatible with solutions containing divalent cations (calcium, magnesium) including lactated Ringer's solution. ondansetron in NaCl 0.9% IVPB 16 mg New Bag 07/11/2021 11:25 A M CASTING MACHINE OPERATOR AUTOMATIC 16 mg 232 mL/hr (ZOFRAN) 16 mg, intravenous, at 232 mL/hr, Administer over 15 Minutes, Once, On Sun07/11/21 at 1115, For 1 dose PACLitaxeL 288 mg in NaCl 0.9% New Bag 07/11/2021 12:31 PM CASTING MACHINE OPERATOR AUTOMATIC 288 mg 108 mL/hr (non-PVC) 323 mL IVPB (TAXOL) 288 mg (rounded from 285.25 mg = 175 mg/m2 ? 1.63 m2 Treatment Plan BSA from Measured weight), intravenous, at 108 mL/hr, Administer over 3 Hours, Once, On Sun07/11/21 at 1145, For 1 dose, Administer via 0.22 micron in-line filter. documented in this encounter Care Teams Lanolin Plant Operator Relationship Specialty Start Date End Date Elsewhere, Pcp PCP - General Internal Medicine 07/08/21 documented as of this encounter
--- OUTSIDE RECORDS SUMMARY | 2022-03-06 01:50 | XMS_ITS | Encounter Summary ---
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 [address] [place] [phone] Referral ID Status Reason Start Date Expiration Date Visits V isits Requested Authorized [id number] Authorized 02/17/2021 02/17/2022 12 12 Encounter Details Date Type Department Care Team Description 07/08/2021 Hospital Encounter Department of Marychuy Kapoor Neoplasm Of Ovary Laterality Unknown (HCC); Laboratory Medicine DENNY Sanchez, C.N.P., Neut rophitesh Drug Induced (HCC) in [facility] [address] [facility] [address] [place] [phone] Social History Tobacco Use Types Packs/Day Years [...] or relatives? How often do you attend moravian or 1 to 4 times per year 02/09 methodist services? Do you belong to any clubs or Yes 02/26/2021 organizations such as moravian groups, unions, fraternal or athletic groups, or [...] Sig Dispensed Refills Start Date End Date abitmfa-eepq-taqic-oreg- Take 1 tablet by 0 capryl 100 mg-150 mg- 50 mouth daily. mg-150 mg capsule acetaminophen (TYLENOL) Take 2 tablets 100 tablet 2 04/25/20 21 08/10/2021 500 mg tablet (1,000 mg total) by mouth every 6 (six) hours as needed for mild pain or score 1-3 of 10, headaches or fever. acetylcysteine (NAC) 600 Take 600 mg by mouth 0 08/10/2021 mg capsule 2 (two) times a day. apixaban (ELIQUIS) 2.5 Take 1 tablet (2.5 48 tablet 0 05/1308/10/2021 mg tablet mg total) by mouth 2 (two) times a day for 24 days. ascorbic acid, vitamin Take 500 mg by mouth 0 08/10/2021 C, (VITAMIN C) 500 mg daily. tablet ibuprofen (ADVIL,MOTRIN) Take 3 tablets (600 0 08/10/2021 200 mg tablet mg total) by mouth every 6 (six) hours as needed for pain. magnesium hydroxide Take 30 mL by mouth 0 021 08/10/2021 (MILK OF MAGNESIA) 400 2 (two) times a day mg/5 mL suspension as needed (constipation). ondansetron (ZOFRAN) 8 Take 1 tablet (8 mg 30 tablet 3 02/0908/10/2021 mg tabletIndications: total) by mouth Malignant Neoplasm Of every 8 (eight) Ovary Laterality Unknown hours as needed for (HCC) nausea or vomiting. prochlorperazine Take 1 tablet (10 mg 30 tablet 3 08/10/2021 (COMPAZINE) 10 mg total) by mouth tabletIndications: every 6 (six) hours Malignant Neoplasm Of as needed for nausea Ovary Laterality Unknown or vomiting (HCC) (unrelieved by ondansetron). sennosides-docusate Take 1 tablet by 0 05/13/2021 08/10/2021 sodium (SENOKOT-S) mouth 2 (two) times 8.6-50 mg per tablet a day as needed for constipation (especially while on narcotic pain medication). Vyvanse 60 mg capsule Take 60 mg by mouth 0 05/3108/10/2021 daily. Taking for 1 month Vyvanse 70 mg capsule Take 70 mg by mouth 0 01/2408/10/2021 daily. documented as of this encounter Plan of Treatment Upcoming Encounters Date Type Specialty Care Team Description 04/11/2022 Clinical Communication Admitting/Central Scheduling 04/13/2022 Appointment Laboratory Medicine Debbie Ivey M.D. [address] [place] [address] 04/13/2022 Office Visit Oncology Walter Barnhart M.D., Ph.D. [address] [place] [phone] documented as of this encounter Procedures Procedure Name Priority Date/Time Associated Comments Diagnosis CBC CHEMO - NO ALERTS Routine 07/08/2021 11:21 Malignant Neopl asm Results for this AM FILING AND POLISHING SUPERVISOR Of Ovary procedure are i n Laterality Unknown the resul ts (HCC) section. Neutropenia Drug Induced (HCC) CANCER AG 125 (CA 125), Routine 07/08/2021 11:21 Malignant Juan plasm Results for this S AM FILING AND POLISHING SUPERVISOR Of Ovary procedure are i n Laterality Unknown the resul ts (HCC) section. Neutropenia Drug Induced (HCC) ASPARTATE Routine 07/08/2021 11:21 Malignant Neoplasm Resul ts for this AMINOTRANSFERASE (AST), AM FILING AND POLISHING SUPERVISOR Of Ovary proc edure are in S/P Laterality Unknown the resul ts (HCC) section. Neutropenia Drug Induced (HCC) CREATININE WITH EGFR, Routine 07/08/2021 11:21 Malignant Neopl asm Results for this S/P AM FILING AND POLISHING SUPERVISOR Of Ovary procedure are i n Laterality Unknown the resul ts (HCC) section. Neutropenia Drug Induced (HCC) BILIRUBIN, TOT, S/P Routine 07/08/2021 11:21 Malignant Neoplas m Results for this AM FILING AND POLISHING SUPERVISOR Of Ovary procedure are i n Laterality Unknown the resul ts (HCC) section. Neutropenia Drug Induced (HCC) documented in this encounter Results Creatinine with Estimated GFR (07/08/2021 11:21 AM FILING AND POLISHING SUPERVISOR) athologist Signature Creatinine 0.65 0.59 - 07/08/2021 NPRG 1.04 mg/dL 12:51 PM FILING AND POLISHING SUPERVISOR eGFR-Black/Afric >90 >=60 07/08/2021 NPRG an Trinidadian mL/min/BSA 12:51 PM FILING AND POLISHING SUPERVISOR Comment: ----ADDITIONAL INFORMATION---- Estimated GFR calculated using the 2009 CKD_EPI creatinine equation. eGFR Non-Black/ >90 >=60 mL/min/BSA 07/08/2021 12:51 PM FILING AND POLISHING SUPERVISOR NPRG Comment: ----ADDITIONAL INFORMATION---- Estimated GFR calculated using the 2009 CKD_EPI creatinine equation. Specimen Anatomical Collection Method Collection Time Receive d Time (Source) Location / / Volume Laterality Blood (Blood, 07/08/2021 11:21 07/08/2021 Venous) AM FILING AND POLISHING SUPERVISOR 12:02 PM FILING AND POLISHING SUPERVISOR Marychuy Kapoor APRN, C.N.P., M.S.N. LAB BLOOD ADD-ON Performing Organization Address City/State/ZIP Code Phon e Number [facility]- [address] [place], [place] [address] [place] [address] [place] [address] [facility] [address] (ABNORMAL) CBC, Chemotherapy, No Alerts (07/08/2021 11:21 AM FILING AND POLISHING SUPERVISOR) Analysis Performed At Patho logist Time Signature Hemoglobin 11.3 (L) 11.6 - 07/08/2021 NPRG 15.0 g/dL 12:20 PM FILING AND POLISHING SUPERVISOR Platelet Count 418 (H) 157 - 371 07/08/2021 NPRG x10(9)/L 12:20 PM FILING AND POLISHING SUPERVISOR Leukocytes 4.6 3.4 - 9.6 07/08/2021 NPRG x10(9)/L 12:20 PM FILING AND POLISHING SUPERVISOR Neutrophils 2.09 1.56 - 07/08/2021 NPRG 6.45 12:20 PM FILING AND POLISHING SUPERVISOR x10(9)/L Specimen Anatomical Collection Method Collection Time Receive d Time (Source) Location / / Volume Laterality Blood (Blood, 07/08/2021 11:21 07/08/2021 Venous) AM FILING AND POLISHING SUPERVISOR 12:02 PM FILING AND POLISHING SUPERVISOR Sabine Correa APRNNAnthony., M.S.N. LAB BLOOD ADD-ON Performing Organization Address City/[facility] Code Phon e Number [address] LAB NPRG [address] Bilirubin, Total (07/08/2021 11:21 AM FILING AND POLISHING SUPERVISOR) P athologist Signature Bilirubin, 0.4 <=1.2 mg/dL 07/08/2021 NPRG Total, P 12:51 PM FILING AND POLISHING SUPERVISOR Specimen Anatomical Collection Method Collection Time Receive d Time (Source) Location / / Volume Laterality Blood (Blood, 07/08/2021 11:21 07/08/2021 Venous) AM FILING AND POLISHING SUPERVISOR 12:02 PM FILING AND POLISHING SUPERVISOR Carly Correa APRN.N.P., M.S.N. LAB BLOOD ADD-ON Performing Organization Address City/[facility] Phon e Number [place] [address] [address] [facility] [place] [id number] AST (Aspartate Aminotransferase) (07/08/2021 11:21 AM FILING AND POLISHING SUPERVISOR) Patholo gist Method Time Signature Aspartate 35 8 - 43 07/08/2021 NPRG Aminotransferase U/L 12:51 PM FILING AND POLISHING SUPERVISOR (AST), P Specimen Anatomical Collection Method Collection Time Receive d Time (Source) Location / / Volume Laterality Blood (Blood, 07/08/2021 11:21 07/08/2021 Venous) AM FILING AND POLISHING SUPERVISOR 12:02 PM FILING AND POLISHING SUPERVISOR Marychuy Kapoor APRN, C.N.P., M.S.N. LAB BLOOD ADD-ON Performing Organization Address City/[facility] Phon e Number [facility]- [address] [place], [place] [address] [address] [place] LAB NPRG [facility] [place] [address] [place] [address] [place] Cancer Antigen 125 (CA 125) (07/08/2021 11:21 AM FILING AND POLISHING SUPERVISOR) P athologist Signature Cancer Ag 125 8 <46 U/mL 07/08/2021 AUST (CA 125), S 10:31 PM FILING AND POLISHING SUPERVISOR Comment: Biotin has been identified by the daisy sarabiar as a potential interfering substance. ??Higher concentr ations of biotin may be found in multivitamins, hair/nail supple ments, and workout supplements. ??If the result does not ma [facility] clinical observations, repeat testing after patient refrains fr om the use of supplements for at least 12 hours. ----ADDITIONAL INFORMATION---- The testing method is an [...] Location / / Volume Laterality Blood (Blood, 07/08/2021 11:21 07/08/2021 Venous) AM FILING AND POLISHING SUPERVISOR 10:00 PM FILING AND POLISHING SUPERVISOR Marychuy Kapoor APRN, C.N.P., M.S.N. LAB BLOOD ADD-ON Performing Organization Address City/[facility]/ZIP Code Phon e Number [facility]- [address] [place] [address] [facility] [place] [address] [facility] [address] documented in this encounter Visit Diagnoses Diagnosis 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 Care Teams Manager Life Insurance Relationship Specialty Start Date End Date Elsewhere, Pcp PCP - General Internal Medicine 07/08/21 documented as of this encounter
--- OUTSIDE RECORDS SUMMARY | 2022-03-06 01:50 | XMS_ITS | Encounter Summary ---
:1975 Author Organization [facility] Address [address] [place] [address] Care Team Providers Name Role Phone Elsewhere, Pcp Primary Care Provider Unavailable Encounter Details Date Type Department Care Team Description 10/14/2021 Specialty Pharmacy [facility] [place], Malignant Neoplasm Pharmacy Azucena Montes De Oca, Of Ovary Laterality [address] Pharm.D., R.P h. Unknown (HCC) [address] (Primary Dx) [place] [phone] Social History Tobacco Use Types Packs/Day Years [...] or relatives? How often do you attend episcopalian or 1 to 4 times per year 02/09 nondenominational services? Do you belong to any clubs or Yes 02/26/2021 organizations such as episcopalian groups, unions, fraternal or athletic groups, or [...] this encounter Miscellaneous Notes Telephone Encounter - Azucena Malagon, Pharm.D., R.Ph. - 10/14/2021 5:19 PM CDT SUBJECTIVE REASON FOR VISIT Patient counseling and education, via telephone, for new hematology/oncology medication therapy and establishing medication reassessment timeline. HISTORY OF PRESENT ILLNESS Ms. Angelica Yang is a 45 y.o. female, who is followed by the specialty pharmacy service for Zejula (niraparib) for ovarian cancer. Patient baseline rating for quality of life: unable to obtain. OBJECTIVE Lab Results Component Value Date CREATININE 0.5 09/12/2021 ASSESSMENT / PLAN 1. Medication counseling I counseled the patient via phone. Education related to medication: Zejula (niraparib) ??? Proper use: we discussed the patient???s dose, taking with or without food, at the same time each day. We discussed management of missed doses (do not take an extra dose to make up for the one thatthey missed) and that bedtime administration may be a potential method for managing nausea (morning dosing if insomnia). Frequently, doses may require reduction depending on how the patient tolerates the medication. ??? Timely administration/intake: suggestions to improve adherence- pill box, smartphone applications. ??? Storage: room temperature, no special considerations. ??? Side effects: Including, but not limited to: Decreases in blood counts, specifically platelets; GI: specifically nausea/vomiting, constipation, headache, increases in blood pressure, fatigue, insomnia, rash, weakness. ??? Advised patient that other potential Warnings/ safety precautions exist: (Bone marrow suppression (over suppressing blood cell production), Grade 3-4 hypertension, allergic reactions to FD&C Yellow No 5) ??? Lifestyle and self-management skills/ Tips to prevent adverse drug reactions: weekly CBC for 1stmonth, then monthly. Patient should report any new bruising or bleeding. Monitoring for hypertensionrecommended monthly. ??? Interactions (drug/food interactions): Drug interactions referenced in #2 below. Food: no special considerations. ??? Contraindications/ considerations: This medication may cause harm. Women who can become should use effective contraception while on this medication and for 6 months after stopping. Fertility may be impaired if administered to males. ??? Educational resource/decision support tools: https://www.[employer]/en/miguel angelgucci and Patient SupportProgram ???My Start, My Way??? Kit. Also, [employer]io The patient was attentive and ready to learn. They verbalized understanding and are in agreement with the plan for taking this new regimen. They were advised to contact the prescriber concerning symptoms or side effects as mentioned above. The importance of adherence to the treatment plan was emphasized in regard to success of therapy. Allergy, past sensitivity, medication and health history considered at adult school counselor (renal function if available). To optimize outcomes, patient assessed for the need of other possible supportive therapies and informed of importance of proper monitoring and future reassessment. The patient/caregiver's prior education on this new therapy and disease specific knowledge were assessed with counseling and education tailored to this level of understanding. Vasquez concerns and questions were addressed. Patient specific considerations/desires:None noted at this time. Education done via phone and printed medication materials included with the prescription. The patient/caregiver was encouraged to ask questions or to call the specialty pharmacy with questions they mayhave after reviewing printed material. Specialty pharmacy contact information and disposal information provided in the patient 'Welcome Packet'. No social, environmental, functional or cognitive barriers are apparent. Patient is eligible for service through [facility]. 2. Potential drug-drug interactions No clinically significant drug interactions were identified with Zejula (niraparib) . Recommended caution when taking herbal supplements. Specialty medication(s) reconciled and good tammy attempt made in obtaining a complete medication list (via dispensing program). Patient encouraged to report any new or change of medications (prescribed/over the counter/supplements) to assist in maintaining this list for accuracy. 3. Goals of therapy: Promote medication adherence. Evaluate other newly prescribed therapies as needed for drug-drug and drug- disease appropriateness. Mitigate, treat or prevent side effects. The patient has decided to use the [facility]. This patient does not meet the definition of high risk by MCSP definition. Follow-up: 1 month(s) Azucena Malagon, Pharm.D., R.Ph. documented in this encounter Plan of Treatment Upcoming Encounters Date Type Specialty Care Team Description 04/11/2022 Clinical Communication Admitting/Central Scheduling 04/13/2022 Appointment Laboratory Medicine Debbie Ivey M.D. [address] [place] [phone] 04/13/2022 Office Visit Oncology Walter Barnhart M.D., Ph.D. [address] [place] [phone] documented as of this encounter Visit Diagnoses Diagnosis Malignant Neoplasm Of Ovary Laterality U nknown (HCC) - Primary documented in this encounter Care Teams Cell Changer Relationship Specialty Start Date End Date Elsewhere, Pcp PCP - General Internal Medicine 07/08/21 documented as of this encounter
--- OUTSIDE RECORDS SUMMARY | 2022-03-06 01:50 | XMS_ITS | Encounter Summary ---
:1975 Author Organization [facility] Address [address] [place] [id number] Care Team Providers Name Role Phone Elsewhere, Pcp Primary Care Provider Unavailable Reason for Referral Outpatient (Routine) - Closed Specialty Diagnoses / Procedures Referred By Contact Refer red To Contact Oncology Walter Barnhart M. D., Ph.D. [address] [phone] Referral ID Status Reason Start Date Expiration Date Visits Requ ested Visits Authorized [id number] Closed 08/11/2021 08/11/2022 1 1 OL YEAR NANNY Reason for Visit Outpatient (Routine) - Closed Specialty Diagnoses / Procedures Referred By Contact Refer red To Contact Oncology Candie Monahan, APR N, C.N.P. [address] [phone] Referral ID Status Reason Start Date Expiration Date Visits Requ ested Visits Authorized [id number] Closed 05/30/2021 05/30/2022 1 1 Encounter Details Date Type Department Care Team Description 08/10/2021 Office Visit Department of Walter Barnhart, Malignant Neoplasm Of Oncology in MMickey., Ph.D. Ovary Laterality [place], [place] [address] [place] [address] Unknown (HCC) (Primary [address] [place] [address] Dx) [place] [phone] Social History Tobacco Use Types Packs/Day Years [...] or relatives? How often do you attend rastafarian or 1 to 4 times per year 02/09 cheondoism services? Do you belong to any clubs or Yes 02/26/2021 organizations such as rastafarian groups, unions, fraternal or athletic groups, or [...] Sign Reading Time Taken Comments Blood Pressure 129/79 08/10/2021 12:55 PM SCHOOL YEAR NANNY Pulse 70 08/10/2021 12:55 PM SCHOOL YEAR NANNY Temperature 36.6 ??C (97.9 ??F) 08/10/2021 12:55 PM SCHOOL YEAR NANNY Respiratory Rate 16 08/10/2021 12:55 PM SCHOOL YEAR NANNY Oxygen Saturation 94% 08/10/2021 12:55 PM SCHOOL YEAR NANNY Inhaled Oxygen Concentration - - Weight 54.6 kg (120 lb 5.9 oz) 08/10/2021 12:55 PM SCHOOL YEAR NANNY Height 169.5 cm (5' 6.73) 08/10/2021 12:55 PM SCHOOL YEAR NANNY Body Mass Index 19 08/10/2021 12:55 PM SCHOOL YEAR NANNY documented in this encounter Progress Notes Walter Barnhart M.D., Ph.D. 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 Variant of Uncertain Significance (VUS) found in APC gene specifically named [id number] aka [id number]). Somatic testing: HRD Positive, BRCA negative 02/03/2021 [...] Chemotherapy CARBOplatin AUC 6 / PACLitaxel ( [employer] ) Start Date: 02/25/2021 Completed 3 cycles [...] Chemotherapy CARBOplatin AUC 6 / PACLitaxel ( [employer] ) Start Date: 02/25/2021 Adjuvant chemotherapy, cycles 4 through 6. No evidence of disease at the completion of therapy. 09/09/2021 - Biological/Targeted/Hormone Therapy Maintenance niraparib. INTERVAL HISTORY: Ms. Yang returns for follow-up of ovarian cancer. She did well in general with chemotherapy. She had minimal neuropathy, and this has completely resolved. She did get significant fatigue, but she is recovering. She is physically active and eating very well. ECOG performance status is 0. REVIEW OF SYSTEMS Pertinent items are noted in HPI; all other review of systems were negative. I reviewed the Medications, Allergies, Past Medical History, Social History, and Family History. OBJECTIVE VITAL SIGNS Vitals: 08/10/21 1255 BP: 129/79 BP Location: Left arm Patient Position: Sitting Cuff Size: Regular Pulse: 70 Resp: 16 Temp: 36.6 ??C TempSrc: Tympanic SpO2: 94% Weight: 54.6 kg Height: 169.5 cm DISTRESS SCORE: Rate your distress: 2 ASSESSMENT / PLAN #1 Stage IVB high-grade serous ovarian cancer Ms. Yang is doing well and has no substantial persistent toxicity from her chemotherapy with paclitaxel and carboplatin. Her fatigue is improving. She has no clinical evidence for persistence of her ovarian cancer. I reviewed the laboratory studies, and her CA 125 is 5. I reviewed the images fromthe CT of the chest, abdomen, and pelvis. There is no clear evidence of disease. There is an indeterminate tiny focus of nodularity near the left hemidiaphragm. I discussed with Ms. Yang that I would consider her cancer to be in remission. I think that it would be appropriate for her to return for a clinical evaluation and CA 125 testing in 3 months. I suggested that we re-evaluate the indeterminate nodularity via another CT scan in 6 months. I discussed with Ms. Yang PARP inhibitor therapy versus observation. I explained that with evidence of somatic homologous recombination deficiency, she would be expected to have moderate benefit in terms of progression-free survival for the use of a PARP inhibitor. We discussed the risks, toxicities, and monitoring associated with niraparib. Ms. Yang would like to initiate niraparib therapy. I suggested that she start this in early September. I will send a prescription now. I asked her to contact us before she starts the medication, so that we can obtain a baseline set of laboratory tests. Kalpeshwill then obtain labs weekly for a month and then monthly thereafter. Ms. Yang had several additional questions regarding metformin use, circulating tumor cells, andother adjunctive approaches that can be taken to minimize the risk of cancer recurrence. I addressedthese to the best of my ability. PATIENT EDUCATION Learning needs assessment was performed. No learning barriers were identified. Explained diagnosis and treatment plan. Patient expressed understanding and was able to teach back. ADMINISTRATIVE BILLING I personally spent over half of a total 60 minutes with the patient in counseling and discussion and/or coordination of care as described above. OL YEAR NANNY documented in this encounter Plan of Treatment Upcoming Encounters Date Type Specialty Care Team Description 04/11/2022 Clinical Communication Admitting/Central Scheduling 04/13/2022 Appointment Laboratory Medicine Debbie Ivey M.D. [address] [place] [phone] 04/13/2022 Office Visit Oncology Walter Barnhart M.D., Ph.D. [address] [place] [phone] Scheduled Referrals Name Type Priority Associated Diagnoses Order S [facility] Oncology office Outpatient Referral Routine Expec jace: visit (clinic) 11/10/2021, General; [employer] Expires: 11/11/2022 documented as of this encounter Visit Diagnoses Diagnosis Malignant Neoplasm Of Ovary Laterality U nknown (HCC) - Primary documented in this encounter Care Teams Manager Flight Relationship Specialty Start Date End Date Elsewhere, Pcp PCP - General Internal Medicine 07/08/21 documented as of this encounter
--- OUTSIDE RECORDS SUMMARY | 2022-03-06 01:50 | XMS_ITS | Encounter Summary ---
:1975 Author Organization [facility] Address [address] [place] [address] Care Team Providers Name Role Phone Elsewhere, Pcp Primary Care Provider Unavailable Reason for Visit Reason Comments Rx Prior Authorization AUGUSTUS DENIED - ZEJULA 100 MG Encounter Details Date Type Department Care Team Description 09/16/2021 Clinical Communication Pharmacy Prior Auth Hardeep Chan Rx Prior RO I. Authorization (AUGUSTUS [phone] DENIED - ZEJULA 100 (Work) MG) Social History Tobacco Use Types Packs/Day Years [...] or relatives? How often do you attend anabaptist or 1 to 4 times per year 02/09 anabaptism services? Do you belong to any clubs or Yes 02/26/2021 organizations such as anabaptist groups, unions, fraternal or athletic groups, or [...] this encounter Miscellaneous Notes Telephone Encounter - Mamie Rees M.S.N., R.N. - 10/07/2021 8:08 AM CDT Portal sent to patient to inquire if she's heard anything Telephone Encounter - Melanie Chan I. - 09/16/2021 7:30 AM CDT Images from the original note were not included. The patient's health insurer has denied prior authorization for ZEJULA 100 MG. A quick view of the denial reason is in this communication message. To view the denial letter: 1. Go to Snapshot 2. Go to the purple Medications box 3. Click on the blue Prior Authorizations link 4. Under Denied, click on the blue medication link to open and view the attachment. As the prescriber your options are: ??? Appeal the decision to the insurer directly (see denial letter for how to appeal). ??? Write a new Rx for an alternative medication therapy. ??? Release the Rx to the pharmacy so the patient can pay out of pocket if they desire. To Release Rx: Open this encounter, go to Meds & Orders, click on the medication, and click the blue ???Release Rx?? button. PLEASE NOTE: If the ???Release Rx?? button is not visible, the Rx has already been released to the pharmacy. If you have questions, please reply via QuickNote to Katie EVERETT. Thank you, The OPPA Team documented in this encounter Plan of Treatment Upcoming Encounters Date Type Specialty Care Team Description 04/11/2022 Clinical Communication Admitting/Central Scheduling 04/13/2022 Appointment Laboratory Medicine Debbie Ivey M.D. [address] [place] [phone] 04/13/2022 Office Visit Oncology Walter Barnhart M.D., Ph.D. [address] [place] [phone] documented as of this encounter Visit Diagnoses Not on filedocumented in this encounter Care Teams Organizational Effectiveness Consultant Relationship Specialty Start Date End Date Elsewhere, Pcp PCP - General Internal Medicine 07/08/21 documented as of this encounter
--- OUTSIDE RECORDS SUMMARY | 2022-03-06 01:50 | XMS_ITS | Encounter Summary ---
:1975 Author Organization [facility] Address [address] [place] [address] Care Team Providers Name Role Phone Elsewhere, Pcp Primary Care Provider Unavailable Encounter Details Date Type Department Care Team Description 11/09/2021 Clinical Communication Visit Review in [place], [place] [address] [place], [place] [phone] Social History Tobacco Use Types Packs/Day Years [...] 1 to 4 times per year 02/09 pentecostalism services? Do you belong to any clubs [...] Appointment Laboratory Medicine Debbie Ivey M.D. 200 [place] [phone] 04/13/2022 Office Visit Oncology Walter Barnhart M.D., Ph.D. 200 [place] [phone] documented as of this encounter Visit Diagnoses Not on filedocumented in this encounter Care Teams Flying Squad Worker Relationship Specialty Start Date End Date Elsewhere, Pcp PCP - General Internal Medicine 07/08/21 documented as of this encounter
--- OUTSIDE RECORDS SUMMARY | 2022-03-06 01:50 | XMS_ITS | Encounter Summary ---
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 [address] [place] [phone] Referral ID Status Reason Start Date Expiration Date Visits Requ ested Visits Authorized [id number] Closed 07/22/2021 08/19/2021 1 1 Encounter Details Date Type Department Care Team Description 08/04/2021 Hospital Encounter Department of Candie Monahan nt Neoplasm Radiology, Jeramy Box APRN, C.N.P. Of Ovary Laterality Building, in [address] [place] [address] Unknown (HCC) [place], [place] [address] [place] [phone] [place], [place] [phone] (Work) [phone] Social History Tobacco Use Types Packs/Day Years [...] 1 to 4 times per year 02/09 confucianism services? Do you belong to any clubs [...] Sig Dispensed Refills Start Date End Date dpqabxm-enri-nfzef-oreg- Take 1 tablet by 0 capryl 100 [...] Laboratory Medicine Debbie Ivey M.D. [address] [place] [phone] 04/13/2022 Office Visit Oncology Walter Barnhart M.D., Ph.D. [address] [place] [phone] documented as of this encounter Procedures Procedure Name Priority Date/Time Associated Comments Diagnosis CT ABDOMEN PELVIS RAD - Routine 08/04/2021 11:49 Malignant Resul ts for this WITH IV CONTRAST (most inpatients AM ATHLETIC EQUIPMENT MANAGER Neoplasm Of Ovary pr ocedure are in and all Laterality the results outpatients) Unknown (HCC) section. CT CHEST WITH IV RAD - Routine 08/04/2021 11:49 Malignant Result s for this CONTRAST (most inpatients AM ATHLETIC EQUIPMENT MANAGER Neoplasm Of Ovary proced ure are in and all Laterality the results outpatients) Unknown (HCC) section. documented in this encounter Results CT Abdomen Pelvis with IV Contrast (08/04/2021 11:49 AM ATHLETIC EQUIPMENT MANAGER) Anatomical Region Laterality Modality Abdomen, Pelvis, Abdominal RST LOS, N/A Comp uted Tomography, Computed Abdominal ARZ LOS, Abdominal FLA LOS Aldo ography Specimen (Source) Anatomical Collection Method Collection Time Re ceived Time Location / / Volume Laterality 08/04/2021 11:44 AM ATHLETIC EQUIPMENT MANAGER Impressions 08/04/2021 12:37 PM ATHLETIC EQUIPMENT MANAGER New postoperative changes in the abdomen and pelvis for resection of the patient's ovarian carcinoma. No definite residual/ recurrent or metastatic disease. There is minimal soft tissue nodularity subjacent to the left hemidiaphragm that is technically indeterminant for postoperative change versus a metastatic implant and surveillance would likely be beneficial. Narrative 08/04/2021 12:37 PM ATHLETIC EQUIPMENT MANAGER EXAM: ??CT ABDOMEN PELVIS WITH IV CONTRAST COMPARISON: ??04/25/2021 FINDINGS: ??Since previous exam new post operative changes hysterectomy with bilateral salpingo-oophorectomy, omentectomy, sple nectomy, left colectomy with anastomosis and hepatic wedge resection for treatment of the patient's previously identified ovarian carcinoma. No definite residual/recurrent tumor in the pelvis. New diffuse fatty infiltration throughou t the liver. Tiny presumed cyst in the dome of the liver is unchanged. No new worrisome hepatic mass es. Tiny soft tissue nodule in left upper qu adrant adjacent to the left hemidiaphragm (series 4 image 53) is new since the previous exam. This could be postoperative change but is indeterminant for a metastatic implant and attention at [facility] ow-up would likely be beneficial. No definite peritoneal metastases. No adenopathy in the abdomen or pelvis based on size criteria. No ascites. The small bowel and colon are grossly no rmal. The pancreas and adrenal glands are negative. Stable tiny nonobstructing stone in the lower p ole of the right kidney. The kidneys are otherwise normal. Degenerative changes in the lower lumbar spine. No worrisome osseous lesions. This examination was performed in conjun ction with a CT of the chest, which will be reported separately. Procedure Note Jayce Burger M.D. - 08/04/2021Form atting of this note might be different from the original. EXAM: CT ABDOMEN PELVIS WITH IV CONTRAST COMPARISON: 04/25/2021 FINDINGS: Since previous exam new postop erative changes hysterectomy with bilateral salpingo-oophorectomy, omentectomy, sple nectomy, left colectomy with anastomosis and hepatic wedge resection for treatment of the patient's previously identified ovarian carcinoma. No definite residual/recurrent tumor in the pelvis. New diffuse fatty infiltration throughou t the liver. Tiny presumed cyst in the dome of the liver is unchanged. No new worrisome hepatic mass es. Tiny soft tissue nodule in left upper qu adrant adjacent to the left hemidiaphragm (series 4 image 53) is new since the previous exam. This could be postoperative change but is indeterminant for a metastatic implant and attention at [facility] ow-up would likely be beneficial. No definite peritoneal metastases. No adenopathy in the abdomen or pelvis based on size criteria. No ascites. The small bowel and colon are grossly no rmal. The pancreas and adrenal glands are negative. Stable tiny nonobstructing stone in the lower p ole of the right kidney. The kidneys are otherwise normal. Degenerative changes in the lower lumbar spine. No worrisome osseous lesions. This examination was performed in conjun ction with a CT of the chest, which will be reported separately. IMPRESSION: New postoperative changes in the abdomen and pelvis for resection of the patient's ovarian carcinoma. No definite residual/ recurrent or metastatic disease. There is minimal soft tissue nodularity subjacent to the left hemidiaphragm that is technically indeterminant for postoperative change versus a metastatic implant and surveillance would likely be beneficial. Candie Monahan APRN, C.N.P. IMG CT PROCEDURES CT Chest with IV Contrast (08/04/2021 11:49 AM ATHLETIC EQUIPMENT MANAGER) Anatomical Region Laterality Modality Chest, Thoracic RST LOS, Thoracic ARZ N/A Co mputed Tomography, Computed LOS, Thoracic ARZ LOS, Thoracic FLA Rene graphy LOS Specimen (Source) Anatomical Collection Method Collection Time Re ceived Time Location / / Volume Laterality 08/04/2021 11:45 AM ATHLETIC EQUIPMENT MANAGER Impressions 08/04/2021 2:17 PM ATHLETIC EQUIPMENT MANAGER 1. No change since 05/02/2021. 2. Tiny pulmonary nodules are also uncha nged dating back to 02/11/2021, and though indeterminate, are most likely benign. Narrative 08/04/2021 2:17 PM ATHLETIC EQUIPMENT MANAGER EXAM: CT CHEST WITH IV CONTRAST COMPARISON: Chest CT 05/02/2021 FINDINGS: Continued stability of a few tiny pulmon isha nodules, for example superior segment of the left lower lobe on , anterior right lower lobe on , also unchanged dating back to earliest available chest CT of 02/11/2021. Benign calcified granuloma in the right middle lobe. No new indeterminate nodules or infiltrates. No effusions. A few small left anterior and right card iophrenic angle lymph nodes are unchanged. No thoracic adenopathy. Small amount of normal resid ual thymic tissue in the anterior mediastinum, unchanged. No significant change in a small lucent lesion with sclerotic margins in T9 vertebral body, best seen on the sagittal reformatted images ( ), also unchanged since 02/11/2021, and presumably benign. Examination performed in [facility] separately reported CT of the abdomen/pelvis. Procedure Note Xena Ferreira M.D. - 08/04/2021Fo rmatting of this note might be different from the original. EXAM: CT CHEST WITH IV CONTRAST COMPARISON: Chest CT 05/02/2021 FINDINGS: Continued stability of a few tiny pulmon isha nodules, for example superior segment of the left lower lobe on , anterior right lower lobe on , also unchanged dating back to earliest available chest CT of 02/11/2021. Benign calcified granuloma in the right middle lobe. No new indeterminate nodules or infiltrates. No effusions. A few small left anterior and right card iophrenic angle lymph nodes are unchanged. No thoracic adenopathy. Small amount of normal resid ual thymic tissue in the anterior mediastinum, unchanged. No significant change in a small lucent lesion with sclerotic margins in T9 vertebral body, best seen on the sagittal reformatted images ( ), also unchanged since 02/11/2021, and presumably benign. Examination performed in [facility] separately reported CT of the abdomen/pelvis. IMPRESSION: 1. No change since 05/02/2021. 2. Tiny pulmonary nodules are also uncha nged dating back to 02/11/2021, and though indeterminate, are most likely benign. Candie Monahan APRN, C.N.P. IMG CT PROCEDURES documented in this encounter Visit Diagnoses Diagnosis Malignant Neoplasm Of Ovary Laterality U nknown (HCC) documented in this encounter Administered Medications Inactive Administered Medications - up to 3 most recent administrations Medication Order MAR Action Action Date Dose Rate Site iohexol (OMNIPAQUE) dilution Given 08/04/2021 10:50 AM ATHLETIC EQUIPMENT MANAGER 9,000 mg solution 9,000 mg iodine/1,000 mL water 9,000 mg, oral, Once in imaging, contrast, Starting on Misty 08/04/21 at 1049, For 1 dose, Imaging Protocol Orders, Mix iohexol 300 (Omnipaque?? 300) 30 mL with 970 mL water for a total volume of 1,000 mLs. Patient to drink mixture in 40 minutes. iohexoL 300 mg iodine/mL solution 1-200 mL Given 08/04/2021 11:35 AM ATHLETIC EQUIPMENT MANAGER 100 mL (OMNIPAQUE) 1-200 mL, intravenous, Once in imaging, contrast, Starting on Misty 08/04/21 at 1049, For 1 dose, Imaging Protocol Orders, Dose per Radiant Medication Guidelines sodium chloride (PF) 0.9 % injection 1-1 00 mL Given 08/04/2021 11:35 AM ATHLETIC EQUIPMENT MANAGER 50 mL 1-100 mL, intravenous, Once, On Misty 08/04/21 at 1100, For 1 dose, Imaging Protocol Orders documented in this encounter Care Teams Manager Of Data Relationship Specialty Start Date End Date Elsewhere, Pcp PCP - General Internal Medicine 07/08/21 documented as of this encounter
--- OUTSIDE RECORDS SUMMARY | 2022-03-06 01:50 | XMS_ITS | Encounter Summary ---
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 [address] [place] [address] Referral ID Status Reason Start Date Expiration Date Visits Requ ested Visits Authorized [id number] Closed 12/22/2021 06/23/2022 1 1 Outpatient (Routine) - Closed Specialty Diagnoses / Procedures Referred By Contact Refer red To Contact Oncology Walter Barnhart M. D., Ph.D. 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 [address] [place] [phone] Referral ID Status Reason Start Date Expiration Date Visits Requ ested Visits Authorized [id number] Closed 12/22/2021 06/23/2022 1 1 Reason for Visit Outpatient (Routine) - Closed Specialty Diagnoses / Procedures Referred By Contact Refer red To Contact Oncology Walter Barnhart M. D., Ph.D. [facility] [address] [place] [phone] Referral ID Status Reason Start Date Expiration Date Visits Requ ested Visits Authorized [id number] Closed 08/11/2021 08/11/2022 1 1 Encounter Details Date Type Department Care Team Description 11/10/2021 Office Visit Department of Walter Barnhart, Malignant Neoplasm Of Oncology in [place], Ph.D. Ovary Laterality [place], [place] [address] [facility] Unknown (HCC) (Primary [address] [place] [address] Dx) [place] [phone] Social History Tobacco Use Types Packs/Day Years [...] or relatives? How often do you attend orthodoxy or 1 to 4 times per year 02/09 samaritan services? 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 Variant of Uncertain Significance (VUS) found in APC gene specifically named [id number] aka [id number]). Somatic testing: HRD Positive, BRCA negative 02/03/2021 [...] Chemotherapy CARBOplatin AUC 6 / PACLitaxel ( PULP MIXER ) Start Date: 02/25/2021 Completed 3 cycles [...] Chemotherapy CARBOplatin AUC 6 / PACLitaxel ( PULP MIXER ) Start Date: 02/25/2021 Adjuvant chemotherapy, cycles 4 through 6. No evidence of disease at the completion of therapy. 10/18/2021 - Biological/Targeted/Hormone Therapy Maintenance niraparib. INTERVAL HISTORY: Ms. Yang returns for follow-up of ovarian cancer. In general, she is doing well, and her energyand fitness level are improving. However, she gets daily headaches since starting niraparib. She hastried acupuncture, and this is quite helpful in alleviating her headaches. She has a little bit of nausea, but this is tolerable. ECOG performance status is 0. REVIEW OF SYSTEMS Pertinent items are noted in HPI; all other review of systems were negative. I reviewed the Medications, Allergies, Past Medical History, Social History, and Family History. OBJECTIVE VITAL SIGNS Vitals: 11/10/21 1510 BP: (!) 142/93 BP Location: Right arm Patient Position: Sitting Cuff Size: Regular Pulse: 76 Resp: 14 Temp: 36.4 ??C TempSrc: Tympanic SpO2: 99% Weight: 55.4 kg DISTRESS SCORE: Rate your distress: 1 PHYSICAL EXAMINATION General: Alert female in no acute distress. Ambulates on and off the exam table without difficulty. Eyes: Sclerae non-icteric. ENT: Moist mucous membranes. No oral lesions. Lymph: No palpable cervical, supraclavicular, or axillary axillary lymphadenopathy. Shotty palpable inguinal lymph nodes bilaterally. Heart: Regular rate and rhythm. Lungs: Clear to auscultation and resonant to percussion bilaterally. Abdomen: Soft, non-tender, non-distended. Pelvis: (Chaperoned by Kavitha Bee.) External genitalia normal. No concerning lesions on speculum exam. No palpable abnormalities on bimanual exam or rectovaginal exam. Extremities: Warm, no edema, no calf tenderness. ASSESSMENT / PLAN #1 Stage IVB high-grade serous ovarian cancer Ms. Yang has some headaches but has no true dose-limiting clinical toxicity from her treatment with niraparib. She has no clinical evidence for progression of her cancer. I reviewed the laboratorystudies, and these show no concerns. Her CA 125 from November 08 is pending, but a recent CA 125 was 5. I told Ms. Yang that I am quite pleased that her cancer is in remission. I recommended that shecontinue niraparib therapy for now. We will monitor her laboratory tests monthly. I will have her return for another CT scan in 3 months. PATIENT EDUCATION Learning needs assessment was performed. No learning barriers were identified. Explained diagnosis and treatment plan. Patient expressed understanding and was able to teach back. ADMINISTRATIVE BILLING I personally spent over half of a total 35 minutes with the patient in counseling and discussion and/or coordination of care as described above. documented in this encounter Miscellaneous Notes Addendum Note - Geraldine Palomares - 11/10/2021 3:20 PM CDT Addended by: GERALDINE PALOMARES on: 11/16/2021 03:24 PM Modules accepted: Orders documented in this encounter Plan of Treatment Upcoming Encounters Date Type Specialty Care Team Description 04/11/2022 Clinical Communication Admitting/Central Scheduling 04/13/2022 Appointment Laboratory Medicine Debbie Ivey M.D. [address] [place] [address] 04/13/2022 Office Visit Oncology Walter Barnhart M.D., Ph.D. [address] [place] [phone] Scheduled Referrals Name Type Priority Associated Diagnoses Order S [facility] Oncology office Outpatient Referral Routine Expec jace: visit (clinic) 02/09/2022, General; PULP MIXER Expires: 02/10/2023 documented as of this encounter Results CT Abdomen Pelvis with [...] Stable nonobstructive right renal calcul us (series 3). Small bowel loops are of normal caliber. [...] by the treating provider and reviewed by harry radiologist to increase sensitivity for detection of [...] by the treating provider and reviewed by harry radiologist to increase sensitivity for detection of [...] Walter Barnhart M.D., Ph.D. IMG CT PROCEDURES Hepatitis B Surface Antigen (01/03/2022 9:20 AM CDT) athologist Signature HBs Antigen, S Negative Negative 01/03/2022 [facility] 1:32 PM CDT Specimen Anatomical Collection Method Collection Time Receive d Time (Source) Location / / Volume Laterality Blood (Blood, 01/03/2022 9:20 AM 01/04/20 Venous) CDT 12:23 PM CDT Walter Barnhart M.D., Ph.D. LAB MICROBIOLOGY - BLOOD O ELVI Performing Organization Address [facility] Code Phon e Number [facility] [address] [place] [address] [place] [address] Laboratory Medicine and Pathology [address] [place] HCV Ab Scrn w/Reflex to HCV PCR, Serum (01/03/2022 9:20 AM CDT) athologist Signature HCV Ab Screen, Negative Negative 01/03/2022 [facility] S 1:49 PM CDT Comment: Sehsmt-fo-bbjunf ratio is <1.00 . Specimen Anatomical Collection Method Collection Time Receive d Time (Source) Location / / Volume Laterality Blood (Blood, 01/03/2022 9:20 AM 01/04/20 Venous) CDT 12:23 PM CDT Walter Barnhart M.D., Ph.D. LAB MICROBIOLOGY - BLOOD O ELVI Performing Organization Address City/[facility]/ZIP Code Phon e Number [place] [id number] [place] [address] [address] [place] [address] Laboratory Medicine and Pathology [address] [place] [address] Dr. MARQUEZ HIV-1/-2 Ag and Ab Screen, Plasma (01/03/2022 9:20 AM CDT) athologist Signature HIV-1/-2 Ag Negative Negative 01/03/2022 [facility] and Ab Screen, 2:01 PM CDT Comment: [...] - BLOOD O RDERABLES Performing Organization Address City/State/[facility] Code Phon e Number [address] [place] [address] [place] [address] Laboratory Medicine and Pathology [address] [place] [address] Dr. MARQUEZ Creatinine with Estimated GFR (01/03/2022 9:20 AM CDT) athologist Signature Creatinine 0.78 0.59 - 01/03/2022 DTL 1.04 mg/dL 10:17 AM CDT eGFR-Non >90 >=60 01/03/2022 DTL Black/ mL/min/BSA 10:17 AM CDT Latvian Comment: ----ADDITIONAL INFORMATION---- Estimated GFR calculated using [...] City/State/ZIP Code Phon e Number [facility] - 200 [place], [place] [address] [facility] [place] [address] Laboratories-[facility] 200 [facility] CBC with Differential, Blood (01/03/2022 9:20 [...] City/State/ZIP Code Phon e Number [facility] - [address] [place], [place] [address] 200 [facility] Bilirubin, Total (01/03/2022 9:20 AM CDT) P athologist Signature Bilirubin, 1.0 <=1.2 mg/dL 01/03/2022 DTL Total, S 10:17 AM CDT Specimen Anatomical Collection Method Collection Time Receive d Time (Source) Location / / Volume Laterality Blood (Blood, 01/03/2022 9:20 AM 01/04/20 Venous) CDT 10:00 AM CDT Walter Barnhart M.D., Ph.D. LAB BLOOD ADD-ON Performing Organization Address City/[facility] Code Phon e Number [facility] - [address] 200 [facility] (ABNORMAL) AST (Aspartate Aminotransferase) (01/03/2022 9:20 AM [...] Ph.D. LAB BLOOD ADD-ON Performing Organization Address City/State/[facility] Phon e Number [facility] - [address] (ABNORMAL) Alkaline Phosphatase (01/03/2022 9:20 AM [...] City/State/ZIP Code Phon e Number [facility] - [address] [place], [place] [address] [facility] [place] [address] Laboratories-[facility] [address] documented in this encounter Visit Diagnoses Diagnosis Malignant Neoplasm Of Ovary Laterality U nknown (HCC) - Primary Malignant Neoplasm Of Ovary Laterality U nknown (HCC) documented in this encounter Care Teams Buildings Painter Relationship Specialty Start Date End Date Elsewhere, Pcp PCP - General Internal Medicine 07/08/21 documented as of this encounter
--- OUTSIDE RECORDS SUMMARY | 2022-03-06 01:50 | XMS_ITS | Encounter Summary ---
:1975 Author Organization [facility] Address [address] [place] [address] Care Team Providers Name Role Phone Unavailable Primary Care Provider Unavailable Encounter Details Date Type Department Care Team Description 06/24/2021 Clinical Communication Department of Denisha Oviedo Obstetrics and Kelly Box Gynecology in [address] [place] [address] [place] [phone] [place], [place] [phone] (Work) [phone] Social History Tobacco Use Types Packs/Day Years [...] or relatives? How often do you attend christianity or 1 to 4 times per year 02/09 evangelical services? Do you belong to any clubs or Yes 02/26/2021 organizations such as christianity groups, unions, fraternal or athletic groups, or [...] place to sleep or slept in a fdc (including now)? Education Answer Date Recorded What is the highest level of school Bachelor's degree (e.g., BA, AB, 02/26/2021 you have completed or the highest BS) degree you have received? Sex Assigned at Date Recorded Female 02/10/2021 8:20 AM CDT documented as of this encounter Miscellaneous Notes Telephone Encounter - Morteza Yuliana Vik - 06/24/2021 3:08 PM CST Relayed message to Path sent out TRICAL ELECTRONICS TECHNICIAN Telephone Encounter - Yuliana Pro - 06/24/2021 12:23 PM CST Path send away called and was asking which biopsy they want us to use. It is not listed on the [employer] form. Let me know and I will call them back. Thanks! Yuliana TRICAL ELECTRONICS TECHNICIAN documented in this encounter Plan of Treatment Upcoming Encounters Date Type Specialty Care Team Description 04/11/2022 Clinical Communication Admitting/Central Scheduling 04/13/2022 Appointment Laboratory Medicine Debbie Ivey M.D. [address] [place] [address] 04/13/2022 Office Visit Oncology Walter Barnhart M.D., Ph.D. [address] [place] [address] documented as of this encounter Visit Diagnoses Not on filedocumented in this encounter
--- OUTSIDE RECORDS SUMMARY | 2022-03-06 01:50 | XMS_ITS | Encounter Summary ---
:1975 Author Organization [facility] Address [address] [place] [address] Care Team Providers Name Role Phone Elsewhere, Pcp Primary Care Provider Unavailable Encounter Details Date Type Department Care Team Description 08/04/2021 Hospital Encounter Department of Candie Monahan nt Neoplasm Laboratory Medicine E, DENNY C.N .PChapincito Of Ovary Laterality and Pathology, 200 [facility] Unknown (HCC) [facility], in [place], [place] [address] [place] [address] [place], [place] (Work) [phone] Social History Tobacco Use Types Packs/Day Years [...] or relatives? How often do you attend yazidism or 1 to 4 times per year 02/09 lutheran services? Do you belong to any clubs or Yes 02/26/2021 organizations such as yazidism groups, unions, fraternal or athletic groups, or [...] Sig Dispensed Refills Start Date End Date azkuoyt-dpbx-psdxt-oreg- Take 1 tablet by 0 capryl 100 [...] 1 tablet (10 mg 30 tablet 3 1 08/10/2021 (COMPAZINE) 10 mg total) by mouth [...] Appointment Laboratory Medicine Debbie Ivey M.D. [address] [place] [phone] 04/13/2022 Office Visit Oncology Walter Barnhart M.D., Ph.D. [address] [place] [phone] documented as of this encounter Procedures Procedure Name Priority Date/Time Associated Comments Diagnosis CBC CHEMO - NO ALERTS Routine 08/04/2021 10:14 Malignant Neopl asm Results for this AM CANOPY STRINGER Of Ovary procedure are i n Laterality Unknown the resul ts (HCC) section. CANCER AG 125 (CA 125), Routine 08/04/2021 10:14 Malignant Juan plasm Results for this S AM CANOPY STRINGER Of Ovary procedure are i n Laterality Unknown the resul ts (HCC) section. ALANINE AMINOTRANSFERASE Routine 08/04/2021 10:14 Malignant Ne oplasm Results for this (ALT), S/P AM CANOPY STRINGER Of Ovary procedure are i n Laterality Unknown the resul ts (HCC) section. ASPARTATE Routine 08/04/2021 10:14 Malignant Neoplasm Resul ts for this AMINOTRANSFERASE (AST), AM CANOPY STRINGER Of Ovary proc edure are in S/P Laterality Unknown the resul ts (HCC) section. CREATININE WITH EGFR, Routine 08/04/2021 10:14 Malignant Neopl asm Results for this S/P AM CANOPY STRINGER Of Ovary procedure are i n Laterality Unknown the resul ts (HCC) section. BILIRUBIN DIRECT, S/P Routine 08/04/2021 10:14 Malignant Neopl asm Results for this AM CANOPY STRINGER Of Ovary procedure are i n Laterality Unknown the resul ts (HCC) section. BILIRUBIN, TOT, S/P Routine 08/04/2021 10:14 Malignant Neoplas m Results for this AM CANOPY STRINGER Of Ovary procedure are i n Laterality Unknown the resul ts (HCC) section. documented in this encounter Results Creatinine with Estimated GFR (08/04/2021 10:14 AM CANOPY STRINGER) P athologist Signature Creatinine 0.74 0.59 - 08/04/2021 DTL 1.04 mg/dL 11:11 AM CANOPY STRINGER eGFR-Non >90 >=60 08/04/2021 DTL Black/ mL/min/BSA 11:[address] [place] Comment: ----ADDITIONAL INFORMATION---- Estimated GFR calculated using the 2009 CKD_EPI creatinine equation. eGFR-Black/ >90 >=60 mL/min/BSA 2021 11:11 AM CANOPY STRINGER DTL Comment: ----ADDITIONAL INFORMATION---- Estimated GFR calculated using the 2009 CKD_EPI creatinine equation. Specimen Anatomical Collection Method Collection Time Receive d Time (Source) Location / / Volume Laterality Blood (Blood, 08/04/2021 10:14 08/04/2021 Venous) AM CANOPY STRINGER 10:55 AM CANOPY STRINGER Candie Monahan APRN, C.N.P. LAB BLOOD ADD-ON Performing Organization Address City/State/ZIP Code Phon e Number [facility] - [address] [place], [place] [address] [facility] [place] [place] [address] Laboratories-[facility] [address] (ABNORMAL) CBC, Chemotherapy, No Alerts (08/04/2021 10:14 AM CANOPY STRINGER) Analysis Performed At Patho logist Time Signature Hemoglobin 13.0 11.6 - 08/04/2021 DTL 15.0 g/dL 10:50 AM CANOPY STRINGER Platelet Count 262 157 - 371 08/04/2021 DTL x10(9)/L 10:50 AM CANOPY STRINGER Leukocytes 3.2 (L) 3.4 - 9.6 08/04/2021 DTL x10(9)/L 10:50 AM CANOPY STRINGER Neutrophils 1.20 (L) 1.56 - 08/04/2021 DTL 6.45 10:50 AM CANOPY STRINGER x10(9)/L Specimen Anatomical Collection Method Collection Time Receive d Time (Source) Location / / Volume Laterality Blood (Blood, 08/04/2021 10:14 08/04/2021 Venous) AM CANOPY STRINGER 10:41 AM CANOPY STRINGER Sabine Garcia APRNN.P. LAB BLOOD ADD-ON Performing Organization Address City/[facility]/ZIP Code Phon e Number [facility] - [address] [place], [place] [address] [facility] [place] [address] Laboratories-[facility] [address] Cancer Antigen 125 (CA 125) (08/04/2021 10:14 AM CANOPY STRINGER) athologist Signature Cancer Ag 125 5 <46 U/mL 08/04/2021 [facility] (CA 125), S 2:33 PM CANOPY STRINGER Comment: ----ADDITIONAL INFORMATION---- The testing method is an electrochemilum inescence assay manufactured by [employer] and performed on the Michela system. Values obtained with different assay met hods or kits may be different and cannot be used inte rchangeably. Test results cannot be interpreted as ab solute evidence for the presence or absence of malignant disease. Specimen Anatomical Collection Method Collection Time Receive d Time (Source) Location / / Volume Laterality Blood (Blood, 08/04/2021 10:14 08/04/2021 1:44 Venous) AM CANOPY STRINGER PM CANOPY STRINGER Sabine Garcia APRNN.P. LAB BLOOD ADD-ON Performing Organization Address City/[facility] Phon e Number [facility] [address] [place], [place] [address] [facility] [place] [address] Laboratory Medicine and Pathology [address] [place] Bilirubin, Direct (08/04/2021 10:14 AM CANOPY STRINGER) athologist Signature Bilirubin, <0.2 0.0 - 0.3 08/04/2021 [facility] Direct, S mg/dL 11:11 AM CANOPY STRINGER Specimen Anatomical Collection Method Collection Time Receive d Time (Source) Location / / Volume Laterality Blood (Blood, 08/04/2021 10:14 08/04/2021 Venous) AM CANOPY STRINGER 10:55 AM CANOPY STRINGER Candie Monahan APRN, C.N.P. LAB BLOOD ADD-ON Performing Organization Address City/[facility]/ZIP Code Phon e Number [facility] - [address] [place], [place] [address] [place] [address] [address] [facility] Bilirubin, Total (08/04/2021 10:14 AM CANOPY STRINGER) P athologist Signature Bilirubin, 0.5 <=1.2 mg/dL 08/04/2021 DTL Total, S 11:11 AM CANOPY STRINGER Specimen Anatomical Collection Method Collection Time Receive d Time (Source) Location / / Volume Laterality Blood (Blood, 08/04/2021 10:14 08/04/2021 Venous) AM CANOPY STRINGER 10:55 AM CANOPY STRINGER Candie Monahan APRN, C.N.P. LAB BLOOD ADD-ON Performing Organization Address City/[facility]/ZIP Code Phon e Number [facility] - [address] [place] [address] [address] [facility] AST (Aspartate Aminotransferase) (08/04/2021 10:14 AM CANOPY STRINGER) [facility] Method Time Signature Aspartate 32 8 - 43 08/04/2021 DTL Aminotransferase U/L 11:11 AM CANOPY STRINGER (AST), S Specimen Anatomical Collection Method Collection Time Receive d Time (Source) Location / / Volume Laterality Blood (Blood, 08/04/2021 10:14 08/04/2021 Venous) AM CANOPY STRINGER 10:55 AM CANOPY STRINGER Candie Monahan APRN, C.N.P. LAB BLOOD ADD-ON Performing Organization Address City/State/ZIP Code Phon e Number [facility] - [address] [place], [place] [address] [place] [address] ALT (Alanine Aminotransferase) (08/04/2021 10:14 AM CANOPY STRINGER) [facility] gist Method Time Signature Alanine 23 7 - 45 08/04/2021 DTL Aminotransferase U/L 11:11 AM CANOPY STRINGER (ALT), S Specimen Anatomical Collection Method Collection Time Receive d Time (Source) Location / / Volume Laterality Blood (Blood, 08/04/2021 10:14 08/04/2021 Venous) AM CANOPY STRINGER 10:55 AM CANOPY STRINGER Candie Monahan APRN, C.N.P. LAB BLOOD ADD-ON Performing Organization Address City/State/ZIP Code Phon e Number [facility] - [address] [place], [place] [address] [facility] [place] [place] [address] Laboratories[facility] [address] documented in this encounter Visit Diagnoses Diagnosis Malignant Neoplasm Of Ovary Laterality U nknown (HCC) documented in this encounter Care Teams Magneto Specialist Relationship Specialty Start Date End Date Elsewhere, Pcp PCP - General Internal Medicine 07/08/21 documented as of this encounter
--- OUTSIDE RECORDS SUMMARY | 2022-03-06 01:51 | XMS_ITS | Encounter Summary ---
:1975 Author Organization [facility] Address [address] [place] [address] Care Team Providers Name Role Phone Unavailable Primary Care Provider Unavailable Reason for Referral Outpatient (Routine) - Closed Specialty Diagnoses / Procedures Referred By Contact Refer red To Contact Oncology Candie Monahan APR N, C.N.P. [facility] [address] [place] [address] [phone] Referral ID Status Reason Start Date Expiration Date Visits Requ ested Visits Authorized [id number] Closed 05/30/2021 05/30/2022 1 1 ING ATTENDANT MRI/CAT/PET Scan (Routine) - Closed Specialty Diagnoses / Procedures Referred By Contact Refer red To Contact Radiology Diagnoses Malignant Neoplasm Of Ovary Laterality Unknown (HCC) Candie Monahan APRN, [facility] Procedures CT Abdomen Pelvis with IV Contrast AL CT ABD&PELVIS W CNTRST C.N.P. [address] [place] [phone] Referral ID Status Reason Start Date Expiration Date Visits Requ ested Visits Authorized [id number] Closed 07/22/2021 08/19/2021 1 1 ING ATTENDANT MRI/CAT/PET Scan (Routine) - Closed Specialty Diagnoses / Procedures Referred By Contact Refer red To Contact Radiology Diagnoses Malignant Neoplasm Of Ovary Laterality Unknown (HCC) Candie Monahan APRN, [facility] Procedures CT Chest with IV Contrast AL CT THORAX W CNTRST AL 3D WO IND WORKSTATION C.N.P. [address] [place] [phone] Referral ID Status Reason Start Date Expiration Date Visits Requ ested Visits Authorized [id number] Closed 07/22/2021 08/19/2021 1 1 ING ATTENDANT Reason for Visit Outpatient (Routine) - Closed Specialty Diagnoses / Procedures Referred By Contact Refer red To Contact Oncology Walter Barnhart M. D., Ph.D. [facility] [address] [place] [phone] Referral ID Status Reason Start Date Expiration Date Visits Requ ested Visits Authorized [id number] Closed 05/04/2021 05/04/2022 1 1 Encounter Details Date Type Department Care Team Description 05/30/2021 Office Visit Department of Oncology Candie Monahan M alignant Neoplasm Of in [place], [place], C.N.P. Ovary Laterality [place] [address] [facility] Unknown (HCC) (Primary [address] [place] [address] [place]x) [place] [phone] Social History Tobacco Use Types Packs/Day Years [...] or relatives? How often do you attend buddhism or 1 to 4 times per year 02/09 sikhism services? Do you belong to any clubs or Yes 02/26/2021 organizations such as buddhism groups, unions, fraternal or athletic groups, or [...] place to sleep or slept in a intermediate (including now)? Education Answer Date Recorded What is the highest level of school Bachelor's degree (e.g., BA, AB, 02/26/2021 you have completed or the highest BS) degree you have received? Sex Assigned at Date Recorded Female 02/10/2021 8:20 AM CDT documented as of this encounter Last Filed Vital Signs Vital Sign Reading Time Taken Comments Blood Pressure 117/71 05/30/2021 9:03 AM VENDING ATTENDANT Pulse 68 05/30/2021 9:03 AM VENDING ATTENDANT Temperature 36.3 ??C (97.3 ??F) 05/30/2021 9:03 AM VENDING ATTENDANT Respiratory Rate 14 05/30/2021 9:03 AM VENDING ATTENDANT Oxygen Saturation 100% 05/30/2021 9:03 AM VENDING ATTENDANT Inhaled Oxygen Concentration - - Weight 57 kg (125 lb 10.6 oz) 05/30/2021 9:03 AM VENDING ATTENDANT Height - - Body Mass Index 20.44 05/09/2021 7:27 AM VENDING ATTENDANT documented in this encounter Progress Notes Candie Monahan, TEST BORER HELPER, C.N.P. - 05/30/2021 9:00 AM CST SUBJECTIVE CHIEF COMPLAINT/PURPOSE OF VISIT Ms. Yang is a 45 y.o. woman with stage IVB high-grade serous ovarian carcinoma Collaborating provider: Dr. Michele Poon HISTORY OF PRESENT ILLNESS Ms. Yang is a very pleasant 45 y.o. woman with the following oncologic history: Oncology History Malignant Neoplasm Of Ovary Laterality Unknown (HCC) Genetic Testing and Tumor Genotyping Genetic testing in 2020; BRCAnalysis with MyRisk panel from [facility]. Variant of Uncertain Significance (VUS) found in APC gene specifically named [id number] aka [id number]). 02/03/2021 Other Ultrasound with bilateral complex solid [...] Chemotherapy CARBOplatin AUC 6 / PACLitaxel ( BARGE HAND ) Start Date: 02/25/2021 Completed 3 cycles [...] Chemotherapy CARBOplatin AUC 6 / PACLitaxel ( BARGE HAND ) Start Date: 02/25/2021 Adjuvant chemotherapy, cycles 4 through 6. INTERVAL HISTORY: Ms. Yang in anticipation of starting adjuvant chemotherapy with carboplatin and paclitaxel. She has recovered well from surgery, although is struggling with constipation. She hasonly been taking stool softeners, 1 tab twice daily. She also has some difficulty with urination, no bleeding issues, and is enquiring about her ureteral stents. REVIEW OF SYSTEMS Pertinent items are noted in HPI; all other review of systems were negative. OBJECTIVE VITAL SIGNS Vitals Blood Pressure: 117/71, Temperature: 36.3 ??C, Temp Source: Tympanic, Pulse Rate: 68, Resp Rate: 14, SpO2: 100 %, Weight: 57 kg BP Readings from Last 1 Encounters: 05/30/21 117/71 Pulse Readings from Last 1 Encounters: 05/30/21 68 Temp Readings from Last 1 Encounters: 05/30/21 36.3 ??C (Tympanic) Rate your distress: 3 PHYSICAL EXAMINATION General: Alert and oriented. In no acute distress. Able to ambulate on and off the exam table without difficulty. Lymph: No palpable cervical, supraclavicular, axillary, and inguinal lymphadenopathy. Heart: Regular rate and rhythm. No peripheral edema. Lungs: Clear to auscultation bilaterally. Abdomen: Soft, non-tender, non-distended. Midline vertical incision healing nicely with no signs of infection. Some areas of edema and erythema around the incision. Extremities: No pitting edema. No tenderness or erythema. Mental: Mood and affect appropriate for situation. DIAGNOSTICS I reviewed the pertinent laboratory and diagnostic data. ASSESSMENT / PLAN #1 Malignant Neoplasm Of Ovary Laterality Unknown (HCC) Ms. Yang of cycle 4 of chemotherapy, her 1st cycle in the adjuvant setting post surgery. She is recovering well from surgery and her labs are within acceptable limits. Her CA 125 has declined nicely to 27. I have signed off the treatment plan and scheduled her for her next few cycles of chemotherapy. I will contact Dr.Gretchen Oviedo to inquire about when the ureteral stents may get removed. Ather upcoming visits we will talk about her somatic tumor testing when that becomes available and potential for PARP inhibitor maintenance. I briefly discussed that if she had a BRCA mutation on the tumor we would likely recommend a PARP inhibitor, or if she had HRD positivity, but that if she has no mutations on her tumor, she may still have a small benefit to PARP inhibition and we would discuss that further. I recommended that she takes Senokot S with sennosides and docusate sodium in the ingredients, 2 tabs twice daily, in addition to MiraLax once or twice daily for constipation. If this is not enough we can increase the bowel regimen further. I inquired about her post splenectomy vaccines, and she wouldlike to get those closer to home, but has not set up a primary care physician yet. Please check withpatient at future visits about her splenectomy vaccines, and if we need to schedule them here in [place]. ECOG score of 1 PATIENT EDUCATION Ready to learn, no apparent learning barriers were identified; learning preferences include listening. Explained diagnosis and treatment plan; patient expressed understanding of the content. ING ATTENDANT documented in this encounter Plan of Treatment Upcoming Encounters Date Type Specialty Care Team Description 04/11/2022 Clinical Communication Admitting/Central Scheduling 04/13/2022 Appointment Laboratory Medicine Debbie Ivey M.D. [address] [place] [phone] 04/13/2022 Office Visit Oncology Walter Barnhart M.D., Ph.D. [address] [place] [phone] Scheduled Referrals Name Type Priority Associated Diagnoses Order S chedule Oncology office Outpatient Referral Routine Expec jace: visit (clinic) 08/01/2021 General; BARGE HAND (Approximate), Expires: 08/01/2022 documented as of this encounter Results CT Abdomen Pelvis with IV Contrast (08/04/2021 11:49 AM VENDING ATTENDANT) Anatomical Region Laterality Modality Abdomen, Pelvis, Abdominal RST LOS, N/A Comp uted Tomography, Computed Abdominal ARZ LOS, Abdominal FLA LOS Aldo ography Specimen (Source) Anatomical Collection Method Collection Time Re ceived Time Location / / Volume Laterality 08/04/2021 11:44 AM VENDING ATTENDANT Impressions 08/04/2021 12:37 PM VENDING ATTENDANT New postoperative changes in the abdomen and pelvis for resection of the patient's ovarian carcinoma. No definite residual/ recurrent or metastatic disease. There is minimal soft tissue nodularity subjacent to the left hemidiaphragm that is technically indeterminant for postoperative change versus a metastatic implant and surveillance would likely be beneficial. Narrative 08/04/2021 12:37 PM VENDING ATTENDANT EXAM: ??CT ABDOMEN PELVIS WITH IV CONTRAST [...] for a metastatic implant and attention at [facility] ow-[facility] would likely be beneficial. No [...] for a metastatic implant and attention at [facility] ow-up would likely be beneficial. No [...] Chest with IV Contrast (08/04/2021 11:49 AM VENDING ATTENDANT) Anatomical Region Laterality Modality Chest, Thoracic RST LOS, Thoracic ARZ N/A Co mputed Tomography, Computed LOS, Thoracic ARZ LOS, Thoracic FLA Rene graphy LOS Specimen (Source) Anatomical Collection Method Collection Time Re ceived Time Location / / Volume Laterality 08/04/2021 11:45 AM VENDING ATTENDANT Impressions 08/04/2021 2:17 PM VENDING ATTENDANT 1. No change since 05/02/2021. 2. Tiny pulmonary nodules are also uncha nged dating back to 02/11/2021, and though indeterminate, are most likely benign. Narrative 08/04/2021 2:17 PM VENDING ATTENDANT EXAM: CT CHEST WITH IV CONTRAST COMPARISON: [...] seen on the sagittal reformatted images ( 5/), also unchanged since 02/11/2021, and presumably benign. Examination performed in conjunction wit h separately reported CT of the abdomen/pelvis. Procedure [...] seen on the sagittal reformatted images ( /61), also unchanged since 02/11/2021, and presumably benign. Examination performed in conjunction wit h separately reported CT of the abdomen/pelvis. IMPRESSION: 1. No change since 05/02/2021. 2. Tiny pulmonary nodules are also uncha nged dating back to 02/11/2021, and though indeterminate, are most likely benign. Candie Monahan APRN, C.N.P. IMG CT PROCEDURES Creatinine with Estimated GFR (08/04/2021 10:14 AM VENDING ATTENDANT) P athologist Signature Creatinine 0.74 0.59 - 08/04/2021 DTL 1.04 mg/dL 11:11 AM VENDING ATTENDANT eGFR-Non >90 >=60 08/04/2021 DTL Black/ mL/min/BSA 11:11 AM VENDING ATTENDANT [place] Comment: ----ADDITIONAL INFORMATION---- Estimated GFR calculated using the 2009 CKD_EPI creatinine equation. eGFR-Black/ >90 >=60 mL/min/BSA 2021 11:11 AM VENDING ATTENDANT DTL Comment: ----ADDITIONAL INFORMATION---- Estimated GFR calculated using the 2009 CKD_EPI creatinine equation. Specimen Anatomical Collection Method Collection Time Receive d Time (Source) Location / / Volume Laterality Blood (Blood, 08/04/2021 10:14 08/04/2021 Venous) AM VENDING ATTENDANT 10:55 AM VENDING ATTENDANT Candie Monahan APRN, C.N.P. LAB BLOOD ADD-ON Performing Organization Address City/State/ZIP Code Phon e Number [facility] - [address] [place], [place] [address] [facility] [place] [address] Laboratories-[facility] [address] (ABNORMAL) CBC, Chemotherapy, No Alerts (08/04/2021 10:14 AM VENDING ATTENDANT) Analysis Performed At Patho logist Time Signature Hemoglobin 13.0 11.6 - 08/04/2021 DTL 15.0 g/dL 10:50 AM VENDING ATTENDANT Platelet Count 262 157 - 371 08/04/2021 DTL x10(9)/L 10:50 AM VENDING ATTENDANT Leukocytes 3.2 (L) 3.4 - 9.6 08/04/2021 DTL x10(9)/L 10:50 AM VENDING ATTENDANT Neutrophils 1.20 (L) 1.56 - 08/04/2021 DTL 6.45 10:50 AM VENDING ATTENDANT x10(9)/L Specimen Anatomical Collection Method Collection Time Receive d Time (Source) Location / / Volume Laterality Blood (Blood, 08/04/2021 10:14 08/04/2021 Venous) AM VENDING ATTENDANT 10:41 AM VENDING ATTENDANT Candie Monahan APRN, Carly.N.P. LAB BLOOD ADD-ON Performing Organization Address City/[facility] Phon e Number [facility] - [address] [place], [place] [address] [facility] [place] [address] Laboratories-[facility] [address] [facility] Cancer Antigen 125 (CA 125) (08/04/2021 10:14 AM VENDING ATTENDANT) athologist Signature Cancer Ag 125 5 <46 U/mL 08/04/2021 [facility] (CA 125), S 2:33 PM VENDING ATTENDANT Comment: ----ADDITIONAL INFORMATION---- The testing method is [...] (Blood, 08/04/2021 10:14 08/04/2021 1:44 Venous) AM VENDING ATTENDANT PM VENDING ATTENDANT Candie Monahan APRN, C.N.P. LAB BLOOD ADD-ON Performing Organization Address City/[facility] Phon e Number [facility] [address] [place], [place] [address] [facility] [place] [address] Laboratory Medicine and Pathology [address] Bilirubin, Direct (08/04/2021 10:14 AM VENDING ATTENDANT) athologist Signature Bilirubin, <0.2 0.0 - 0.3 08/04/2021 DTL Direct, S mg/dL 11:11 AM VENDING ATTENDANT Specimen Anatomical Collection Method Collection Time Receive d Time (Source) Location / / Volume Laterality Blood (Blood, 08/04/2021 10:14 08/04/2021 Venous) AM VENDING ATTENDANT 10:55 AM VENDING ATTENDANT Candie Monahan APRN, Carly.N.P. LAB BLOOD ADD-ON Performing Organization Address City/[facility]/ZIP Code Phon e Number [facility] - [address] [place], [place] [address] [place], [place] [id number] [place] [address] Bilirubin, Total (08/04/2021 10:14 AM VENDING ATTENDANT) athologist Signature Bilirubin, 0.5 <=1.2 mg/dL 08/04/2021 DTL Total, S 11:11 AM VENDING ATTENDANT Specimen Anatomical Collection Method Collection Time Receive d Time (Source) Location / / Volume Laterality Blood (Blood, 08/04/2021 10:14 08/04/2021 Venous) AM VENDING ATTENDANT 10:55 AM VENDING ATTENDANT Candie Monahan APRN, C.N.P. LAB BLOOD ADD-ON Performing Organization Address City/[facility]/ZIP Code Phon e Number [facility] - [address] [place], [place] [address] [place], [place] [phone] [place] [address] AST (Aspartate Aminotransferase) (08/04/2021 10:14 AM VENDING ATTENDANT) [facility] Method Time Signature Aspartate 32 8 - 43 08/04/2021 DTL Aminotransferase U/L 11:11 AM VENDING ATTENDANT (AST), S Specimen Anatomical Collection Method Collection Time Receive d Time (Source) Location / / Volume Laterality Blood (Blood, 08/04/2021 10:14 08/04/2021 Venous) AM VENDING ATTENDANT 10:55 AM VENDING ATTENDANT Candie Monahan APRN, Carly.N.P. LAB BLOOD ADD-ON Performing Organization Address City/State/ZIP Code Phon e Number [facility] - [address] [address] Laboratories-[place] [address] [address] [facility] ALT (Alanine Aminotransferase) (08/04/2021 10:14 AM VENDING ATTENDANT) [facility] gist Method Time Signature Alanine 23 7 - 45 08/04/2021 DTL Aminotransferase U/L 11:11 AM VENDING ATTENDANT (ALT), S Specimen Anatomical Collection Method Collection Time Receive d Time (Source) Location / / Volume Laterality Blood (Blood, 08/04/2021 10:14 08/04/2021 Venous) AM VENDING ATTENDANT 10:55 AM VENDING ATTENDANT Candie Monahan APRN, C.N.P. LAB BLOOD ADD-ON Performing Organization Address City/State/ZIP Code Phon e Number [facility] - [address] [address] [facility]-[address] documented in this encounter Visit Diagnoses Diagnosis Malignant Neoplasm Of Ovary Laterality U nknown (HCC) - Primary Malignant Neoplasm Of Ovary Laterality U nknown (HCC) documented in this encounter
--- OUTSIDE RECORDS SUMMARY | 2022-03-06 01:51 | XMS_ITS | Encounter Summary ---
:1975 Author Organization [facility] Address [address] [place] [id number] Care Team Providers Name Role Phone Unavailable Primary Care Provider Unavailable Reason for Visit Episode Based Medications (Routine) - Authorized Specialty Diagnoses / Procedures Referred By Contact Refer red To Contact Diagnoses Malignant Neoplasm Of Ovary Laterality Unknown (HCC) Walter Barnhart M.D., R st Onc [facility] Procedures MA CARBOPLATIN INJECTION MA PACLITAXEL INJECTION MA INJECTION, PEGFILGRASTIM 6MG MA DEXAMETHASONE SODIUM PHOS Ph.D. [address] [facility] [address] [place] [phone] Referral ID Status Reason Start Date Expiration Date Visits V isits Requested Authorized [id number] Authorized 02/17/2021 02/17/2022 12 12 Encounter Details Date Type Department Care Team Description 06/20/2021 Office Visit Department of Marychuy Kapoor Malignan t Neoplasm Of Ovary Laterality Unknown (HCC); Oncology in COMMERCIAL SERVICE TECHNICIAN, C.N.P., Neutropenia Dr hannah Lorenzo (HCC) [place], [place] M.S.N. [address] [facility] [address] [place] [phone] Social History Tobacco Use Types Packs/Day Years [...] 1 to 4 times per year 02/09 scientologist services? Do you belong to any clubs [...] Sign Reading Time Taken Comments Blood Pressure 125/81 06/20/2021 8:07 AM BEHAVIOR THERAPIST Pulse 60 06/20/2021 8:07 AM BEHAVIOR THERAPIST Temperature 35.5 ??C (95.9 ??F) 06/20/2021 8:07 AM BEHAVIOR THERAPIST Respiratory Rate 16 06/20/2021 8:07 AM BEHAVIOR THERAPIST Oxygen Saturation 100% 06/20/2021 8:07 AM BEHAVIOR THERAPIST Inhaled Oxygen Concentration - - Weight 56.2 kg (123 lb 14.4 oz) 06/20/2021 8:07 AM BEHAVIOR THERAPIST Height 169.2 cm (5' 6.61) 06/20/2021 8:07 AM BEHAVIOR THERAPIST Body Mass Index 19.63 06/20/2021 8:07 AM BEHAVIOR THERAPIST documented in this encounter Progress Notes Marychuy Kapoor APRN, C.N.P., M.S.N. - 06/20/2021 8:20 AM CST CHIEF COMPLAINT/PUPROSE OF VISIT: Ms. Yang is a 45 y.o. woman with stage IVB high-grade serous ovarian cancer Collaborating provider: Dr. Walter Barnhart [phone]) HISTORY OF PRESENT ILLNESS: Ms. Yang is a very pleasant 45 y.o. woman with the following oncologic history: Oncology History Malignant Neoplasm Of Ovary Laterality Unknown (HCC) Genetic Testing and Tumor Genotyping Genetic testing in 2020; BRCAnalysis with [facility] panel from [facility] lab. Variant of Uncertain Significance (VUS) found in APC gene specifically named [id number] aka [id number]). 02/03/2021 Other Ultrasound with bilateral complex solid [...] Chemotherapy CARBOplatin AUC 6 / PACLitaxel ( REMOTE MEDICAL CODER ) Start Date: 02/25/2021 Completed 3 cycles [...] Chemotherapy CARBOplatin AUC 6 / PACLitaxel ( REMOTE MEDICAL CODER ) Start Date: 02/25/2021 Adjuvant chemotherapy, cycles 4 through 6. INTERVAL HISTORY: presents today evaluation in anticipation of cycle treatment combination chemotherapy newly diagnosed ovarian cancer. She reports that she is continuing to recover from surgery, and does experience intermittent left upper quadrant abdominal discomfort. She notes this is most often noticeable after eating, and left diaphragm discomforts with deep breathing. She notes that she is currentlyusing 2-3 senna for management of bowel regularity, with good results. She notes that she feels muchbetter now that her bowels are moving regularly. She notes she did experience nausea until ChristmasEve, and this has now subsided. She is currently not using any antiemetics for nausea management. She denies dysuria, but does note that it does take longer for her to complete urination. She denies shortness of breath, peripheral neuropathy, or vaginal bleeding/discharge. ROS: Pertinent items are noted in HPI; all other review of systems were negative. VITAL SIGNS: Vitals Blood Pressure: 125/81, Temperature: (!) 35.5 ??C, Temp Source: Tympanic, Pulse Rate: 60, Resp Rate: 16, SpO2: 100 %, Height: 169.2 cm, Weight: 56.2 kg BP Readings from Last 1 Encounters: 06/20/21 125/81 Pulse Readings from Last 1 Encounters: 06/20/21 60 Temp Readings from Last 1 Encounters: 06/20/21 (!) 35.5 ??C (Tympanic) Rate your distress: 2 PHYSICAL EXAM: General: Alert and oriented, and in no acute distress. Able to ambulate on and off the exam table without difficulty. ECOG PS 1. Lymph: No palpable cervical, supraclavicular, axillary, and inguinal lymphadenopathy. Heart: Regular rate and rhythm. Lungs: Clear to auscultation bilaterally. Abdomen: Soft, non-tender, non-distended. Well healing midline abdominal incision present. No erythema or discharge noted. Patient notes prominent inguinal lymph nodes. Palpable 0.5-1 cm round, movablenodes palpable in the right inguinal region. Extremities: No pitting edema. No tenderness or erythema. Mental: Mood and affect appropriate for situation. DIAGNOSTICS: I reviewed the pertinent laboratory and diagnostic data. 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 Her labs were reviewed, and are notable for an ANC of 1.27. Other labs are within acceptable range to proceed with treatment. We discussed that she did have a nice response to Neulasta previously, therefore, it would be reasonable to add Neulasta to her treatment plan today and proceed with stable dosing. We discussed that we would typically not have her utilize Neulasta with her 6th cycle of treatment, however, we will see what her counts look like when she returns in 3 weeks. She is otherwise tolerated treatment w ell, has no dose-limiting toxicity per history or examination. Treatment plan was completed to reflect stable dosing through cycle 5, and we will plan to see her back in roughly three weeks for labs and evaluation prior to her 6th and final planned cycle of treatment. Of note, comes today's with questions in regard to the chemotherapy response score noted on her pathology report. I reassured her that we are seeing a positive response in her CA 125, as well as a positive response noted on imaging. We also did review that there was no residual disease atcompletion of her surgery. We discussed that we would not change the plan moving forward in responseto the chemotherapy response score. In regard to her concerns for prominent lymph nodes in her groinwe discussed that these are well in the a normal size range, and could be more prominent related to weight loss/distribution post surgery. We will continue to monitor moving forward. She verbalized understanding of the above information, as no further questions or concerns at this time. She agrees to contact us in the interim if she would develop any new or concerning symptoms prior to her next planned return visit. PATIENT EDUCATION Ready to learn, no apparent learning barriers were identified; learning preferences include listening. Explained diagnosis and treatment plan; patient expressed understanding of the content. VIOR THERAPIST documented in this encounter Miscellaneous Notes Addendum Note - Adriane Uribe APRN, C.N.P. - 06/20/2021 8:20 AM BEHAVIOR THERAPIST Addended by: ADRIANE URIBE on: 06/22/2021 11:42 AM Modules accepted: Orders VIOR THERAPIST documented in this encounter Plan of Treatment Upcoming Encounters Date Type Specialty Care Team Description 04/11/2022 Clinical Communication Admitting/Central Scheduling 04/13/2022 Appointment Laboratory Medicine Debbie Ivey M.D. [address] [place] [phone] 04/13/2022 Office Visit Oncology Walter Barnhart M.D., Ph.D. [address] [place] [phone] Scheduled Orders Name Type Priority Associated Diagnoses Order S daniella [id number] myChoice CDx Lab Routine Malignant Neop lasm Of Expected: 06/22/2021 - Miscellaneous Test Ovary Laterality (Ap proximate), Unknown (HCC) Expires: 09/20 documented as of this encounter Procedures Procedure Name Priority Date/Time Associated Diagnosis Comme nts [facility] MYRIAD Routine 05/09/2021 12:06 PM Results for this GENETICS LAB BEHAVIOR THERAPIST procedure are i n the results section. documented in this encounter Results [facility] (05/09/2021 12:06 PM BEHAVIOR THERAPIST) P athologist Signature Test Name MyChoice CDx 07/04/2021 MYRI 11:17 AM BEHAVIOR THERAPIST Result SEE COMMENT 07/19/2021 MYRI 10:14 AM BEHAVIOR THERAPIST Comment: For final report, select Lab-Send Out L ab Results hyperlink below. Specimen Anatomical Collection Method Collection Time Receive d Time (Source) Location / / Volume Laterality Varies 05/09/2021 12:06 07/04/2021 PM BEHAVIOR THERAPIST 11:17 AM BEHAVIOR THERAPIST Narrative This result has an attachment that is no t available. Adriane Uribe APRN, R.N. LAB [facility] ORDERABLES Performing Organization Address City/State/ZIP Code Phon e Number [facility] [address] [place] [address] [employer] MYRI [employer] [place] [address] [employer] [address] documented in this encounter Visit Diagnoses Diagnosis 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
--- OUTSIDE RECORDS SUMMARY | 2022-03-06 01:51 | XMS_ITS | Encounter Summary ---
:1975 Author Organization [facility] Address [address] [place] [address] Care Team Providers Name Role Phone Unavailable Primary Care Provider Unavailable Reason for Visit Episode Based Medications (Routine) - Authorized Specialty Diagnoses / Procedures Referred By Contact Refer red To Contact Diagnoses Malignant Neoplasm Of Ovary Laterality Unknown (HCC) Walter Barnhart M.D., R st Onc [facility] Procedures [place] CARBOPLATIN INJECTION [place] PACLITAXEL INJECTION [place] INJECTION, PEGFILGRASTIM 6MG [place] DEXAMETHASONE SODIUM PHOS Ph.D. [address] [place] [address] [address] [place] [phone] Referral ID Status Reason Start Date Expiration Date Visits V isits Requested Authorized [id number] Authorized 02/17/2021 02/17/2022 12 12 Encounter Details Date Type Department Care Team Description 05/30/2021 Infusion Department of Oncology Marychuy Kapoor, Malignant Neoplasm Of Ovary Laterality Unknown (HCC) (Primary Dx); in [facility] rojelio HAWKINSN, C.N.P., Neutropenia Drug Induced (HC C) [address] [facility] M.S.N. [place], [place] [address] [place] [phone] [place], [place] [phone] (Wo rk) Social History Tobacco Use Types [...] 1 to 4 times per year 02/09 catholic services? Do you belong to any clubs [...] place to sleep or slept in a jail (including now)? Education Answer Date Recorded What [...] Laboratory Medicine Debbie Ivey M.D. [address] [place] [phone] 04/13/2022 Office Visit Oncology Walter Barnhart M.D., Ph.D. [address] [place] [phone] documented as of this encounter Visit Diagnoses Diagnosis Malignant Neoplasm Of Ovary Laterality U nknown (HCC) - Primary Neutropenia Drug Induced (HCC) documented in this encounter Administered Medications Inactive Administered Medications - up to 3 most recent administrations Medication Order MAR Action Action Date Dose Rate Site CARBOplatin 700 mg in NaCl New Bag 05/30/2021 4:13 PM ENGLISH DRAWER 700 mg 690 mL/hr 0.9% 345 mL IVPB (PARAPLATIN) 700 mg (rounded from 697.8 mg, Target AUC = 6), intravenous, at 690 mL/hr, Administer over 30 Minutes, Once, On 05/30/21 at 1530, For 1 dose dexamethasone in NaCl 0.9% IVPB 12 New Bag 05/30/2021 12:20 PM ENGLISH DRAWER 12 mg 200 mL/hr mg (DECADRON) 12 mg, intravenous, at 200 mL/hr, Administer over 15 Minutes, Once, On Sun05/30/21 at 1200, For 1 dose, Give prior to PACLitaxel Refrigerate diphenhydrAMINE 50 mg in NaCl 0.9% New Bag 05/30/2021 12:38 PM ENGLISH DRAWER 50 mg 204 mL/hr IVPB (BENADRYL) 50 mg, intravenous, at 204 mL/hr, Administer over 15 Minutes, Once, On Sun05/30/21 at 1200, For 1 dose, Pre taxol. ivpb vs ivp to help with symptoms famotidine injection 20 mg (PEPCID) Given 05/30/2021 11:59 AM ENGLISH DRAWER 20 mg 20 mg, intravenous, Once, On Sun05/30/21 at 1200, For 1 dose, Give prior to PACLitaxel See IVAG for administration guidelines. fosaprepitant in NaCl 0.9% IVPB New Bag 05/30/2021 12:55 PM CS T 150 mg 500 mL/hr 150 mg (EMEND) 150 mg, intravenous, at 500 mL/hr, Administer over 30 Minutes, Once, On Sun05/30/21 at 1200, For 1 dose, Incompatible with solutions containing divalent cations (calcium, magnesium) including lactated Ringer's solution. ondansetron in NaCl 0.9% IVPB 16 mg New Bag 05/30/2021 12:03 P M ENGLISH DRAWER 16 mg 232 mL/hr (ZOFRAN) 16 mg, intravenous, at 232 mL/hr, Administer over 15 Minutes, Once, On Sun05/30/21 at 1200, For 1 dose PACLitaxeL 288 mg in NaCl 0.9% New Bag 05/30/2021 1:30 PM ENGLISH DRAWER 288 mg 99.3 mL/hr (non-PVC) 298 mL IVPB (TAXOL) 288 mg (rounded from 285.25 mg = 175 mg/m2 ? 1.63 m2 Treatment Plan BSA from Measured weight), intravenous, at 99.3 mL/hr, Administer over 3 Hours, Once, On Sun05/30/21 at 1230, For 1 dose, Administer via 0.22 micron in-line filter. documented in this encounter
--- OUTSIDE RECORDS SUMMARY | 2022-03-06 01:51 | XMS_ITS | Encounter Summary ---
:1975 Author Organization [facility] Address [address] [place] [id number] Care Team Providers Name Role Phone Unavailable Primary Care Provider Unavailable Reason for Referral Outpatient (Routine) - Closed Specialty Diagnoses / Procedures Referred By Contact Refer red To Contact Obstetrics and Ruben Rod M.D. 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] Procedures NE SALPINGO-OOPHORECTOMY BILAT HYST NE HEPATECTMY RESECT PARTL LOBECT NE US GUIDE INTRAOPERATIVE NE CYSTHRSCPY W INS URETERAL STNT LAPAROTOMY, TUMOR DEBULKING HYSTERECTOMY ABDOMINAL WITH BILATERAL SALPINGO-OOPHORECTOMY OMENTECTOMY POSSIBLE RESECTION SMALL INTESTINE WITH ANASTOMOSIS, PROCEED INDICATED WEDGE RESECTION LIVER INTRAOPERATIVE ULTRASOUND LIVER CYSTOSCOPY INSERTION STENT URETER Referral ID Status Reason Start Date Expiration Date Visits Requ ested Visits Authorized [id number] 1 1 Encounter Details Date Type Department Care Team Description 05/09/2021 - Hospital Encounter [facility] IvelissePaolaDenishacheli gramajo History Of Malignant Neoplasm Of Ovary (Primary Dx); 05/14/2021 Hospital, Louie Box M.D. Malignant Neoplasm Of Ovary Laterality U nknow ([facility]) [place], [facility] [address] [facility] [place], [place] Floor [id number] [address] [facility] [phone] [place], [place] (Work[place] [phone] Social History Tobacco Use Types Packs/Day Years [...] 1 to 4 times per year 02/09 christian services? Do you belong to any clubs [...] Sign Reading Time Taken Comments Blood Pressure 141/71 05/14/2021 10:30 AM VENEER DRIER Pulse 88 05/14/2021 10:30 AM VENEER DRIER Temperature 36.8 ??C (98.2 ??F) 05/14/2021 10:30 AM VENEER DRIER Respiratory Rate 16 05/14/2021 10:30 AM VENEER DRIER Oxygen Saturation 97% 05/14/2021 10:30 AM VENEER DRIER Inhaled Oxygen Concentration - - Weight 62 kg (136 lb 11 oz) 05/13/2021 8:00 AM VENEER DRIER Height 167 cm (5' 5.75) 05/09/2021 7:27 AM VENEER DRIER Body Mass Index 22.23 05/09/2021 7:27 AM VENEER DRIER documented in this encounter Discharge Summaries Lynn Armstrong M.D. - 05/14/2021 9:22 AM CST DISCHARGE SUMMARY Admission Date: 05/09/2021 Discharge Date: Discharge Provider: Ivelisse Denny M.D. Responsible Author(s): Lynn Armstrong M.D. 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 Mass Ovary ??? Malignant Neoplasm Of Ovary Laterality Unknown (HCC) ??? Neutropenia Drug Induced (HCC) ??? Obstruction Intestinal (HCC) ??? Education Need Ostomy ??? Personal History Of Malignant Neoplasm Of Ovary BRIEF HOSPITAL COURSE Surgeon: Denisha Oviedo M.D. Warner, Susanne G, M.D. Linder, Brian J, M.D. Young, Riley J, M.D. Reyes-Baez, Fiorella E, M.D. Buckarma, Eeeln H, M.D. PROCEDURE DATE: 05/09/2021 TYPE OF PROCEDURE(S): Procedure(s) (LRB): LAPAROTOMY, EXPLORATORY. (N/A) TUMOR DEBULKING. (N/A) HYSTERECTOMY ABDOMINAL, BILATERAL SALPINGO-OOPHORECTOMY. (N/A) OMENTECTOMY. (N/A) WEDGE RESECTION LIVER. (N/A) INTRAOPERATIVE ULTRASOUND LIVER. (N/A) CYSTOSCOPY INSERTION STENT URETER. (Bilateral) SPLENECTOMY (N/A) Proctoscopy (N/A) STRIPPING DIAPHRAGM (Bilateral) LYSIS ADHESIONS (N/A) COLECTOMY LEFT WITH ANASTOMOSIS (N/A) PROCEDURAL COMPLICATIONS: None POSTOPERATIVE COURSE: Mrs. Yang did overall well post-operatively. By POD#3 she was tolerating a diet, her pain was well controlled, she was ambulating, she had return of bowel function and she was voiding spontaneously. Her drain was removed and she was using an abdominal binder as needed. During her stay, she periodically required oxygen supplementation. Given her surgery on the diaphragm, during her stay she had 3chest x-rays that all were normal aside from a small pleural effusion. The pain with inspiration waslikely contributing to her shallow breathes. A muscle relaxant helped with this pain and at time of dismissal she was not requiring oxygen. She was discharged on POD#5 in stable condition after meetingall milestones. Her abdominal distention had improved and she was tolerating a general diet without issue. She was discharged home on Eliquis for VTE prophylaxis. She will see the surgical team in 6 weeks. She will follow up with medical oncology. See below for splenectomy vaccination information - she did receive the first round in the hospital. PATHOLOGY: Recent Results (from the past 168 hour(s)) Surgical Pathology, Frozen Lab Status: None Result Value Participated in the Interpretation Tim Rodrigues M.D. -Pathology Resident Report electronically signed by Sophia Ndiaye M.D. [id number] I verify that I have examined all relevant slides/materials for the specimen(s) and rendered or confirmed the diagnosis. Gross Description A. Received fresh labeled umbilical nodule is a 2.2 x 1.7 x 0.6 cm fragment of red-orosco soft tissue. There is a 0.7 x 0.6 cm nodule identified upon sectioning. All submitted for permanent sections only. Grossed by [facility]. B. Received fresh labeled falciform ligament is a 3.9 x 3.2 x 0.6 cm portion of pink-red fibrofatty tissue. Fish Farmer tissue submitted for permanent sections only. Grossed by [facility]. C. Received fresh labeled omentum is a 42 x 12 x 1 cm portion of omentum. There is a 0.3 x 0.2 x 0.2 cm calcified nodule. Lymph nodes are identified. Fish Farmer tissue submitted for permanent sections only. [facility]. Received fresh labeled liver wedge segment 4B/3 nodule is a 18 gram, 4.3 x 3.8 x 3.7 cm liver wedge specimen. A single 2.6 x 2.4 x 1.4 cm orosco-white mass is present 0.1 cm from the inked surgical margin. Margin is submitted perpendicularly. Fish Farmer tissue submitted for permanent sections only. Grossed by EDNA Beckham E. Received fresh labeled right diaphragm is a 7.1 x 3.2 x 1.6 cm portion of red-orosco fibrous tissue. At one aspect, there is a 3.6 x 1.7 x 0.6 cm nodule. Additional smaller nodules are identified. Fish Farmer tissue submitted for permanent sections only. Grossed by F. Received fresh labeled right anterior abdominal wall is a 3.8 x 2 x 0.5 cm portion of red-pink, peritonealized fibromembranous tissue. A 0.2 cm nodule is present. Fish Farmer tissue submitted for permanent sections only. Grossed by EDNA. G. Received fresh labeled right pelvic gutter is a 2.2 x 1 x 0.2 cm aggregate of red-pink fibromembranous tissue. All submitted for permanent sections only. Grossed by RAL. Abdullahi. Received fresh labeled left mid diaphragm is a 2.2 x 1 x 0.2 cm portion of cauterized pink-white fibromembranous tissue. All submitted for permanent sections only. Grossed by I. Received fresh labeled spleen is a 238 gram, 14.6 x 8.8 x 4.2 cm s plenectomy specimen. The capsule is smooth and unremarkable. There is a 3 x 1.8 x 1.2 cm nodule. Hilar lymph nodes are not identified. Fish Farmer tissue submitted for permanent sections only. Grossed by J. Received fresh labeled right fallopian tube and ovary is a 4.8 gram, 6.8 x 4.9 x 2.6 cm ovary with a 7.7 x 0.8 cm fallopian tube. The ovary has implants and adhesions on the outer surface and a cystic to solid cut surface. Papillary and friable excrescences are identified within the cystic component. The fallopian tube has multiple adhesions and serosal implants. Fish Farmer tissue submitted for permanent sections only. Grossed by DJS. Dubois. Received fresh labeled uterus, left fallopian tube and ovary is a 150.8 gram uterus with cervix with attached left fallopian tube and ovary. The uterine serosa has serosal implants. The peritoneal reflection is adhesed to the serosal surface of the uterus and outer surface of the left ovary. Hafsa toneal reflection is grossly involved by tumor and involves anterior uterine serosa and possible anterior myometrium. The endometrium has fibrosis of the lower uterine segment resulting in complete stenosis. There are no uterine leiomyomas. There is a 5 x 3.4 x 1.5 cm left ovary with a ragged outer surface, grossly involved by tumor over an area of 1.4 x 1.5 cm ovarian surface (inked in black) and a cystic and solid cut surface. Ovary is grossly involved by tumor, 2 x 1.5 x 3 cm, which extends from ovary surface to tumor nodule of peritoneal reflection. There is a 7.5 x 1 cm left fallopian tube which is unremarkable. Fallopian tube fimbriae are entirely submitted. Separately from the main specimen is submitted an aggregate, 3.5 x 3 x 1.6 cm of soft tissue. Fish Farmer tissue submitted for permanent sections only. Grossed by RAK. Gallegos Received fresh labeled portion of sigmoid colon is a 13.5 cm in length portion of colon. There are serosal tumor imp lants and adhesions. The mucosa is unremarkable. Fish Farmer tissue submitted for permanent sections only. Grossed by EDNA. Block Summary A Umbilical nodule A1 Umbilical nodule 1 A2 Umbilical nodule 2 B Falciform ligament B1 Nodular area 1 B2 Nodular area 2 C Omentum C1 Omental lymph nodes 2 (C1) C2 Omental lymph node 1 (C2) C3 Omental nodule D Liver wedge segment 4B/3 nodule D1 Mass to margin 1 D2 Mass to margin 2 D3 Non-neoplastic liver E Right diaphragm E1 Right diaphragm smaller nodules-1 E2 Right diaphragm large nodule E3 Right diaphragm smaller nodules-2 F Right anterior abdominal wall F1 Right anterior abdominal wall 1 F2 Right anterior abdominal wall 2 G Right pelvic gutter G1 Right pelvic gutter-1 G2 Right pelvic gutter-2 H Left mid diaphragm H1 Left mid diaphragm I Spleen I1 Spleen nodule I2 Uninvolved spleen J Right fallopian tube and ovary J1 Right fallopian tubes J2 Right ovary-1 J3 Right ovary-2 K Uterus, left fallopian tube and ovary K1 Left fallopian tube-1 K2 Left fallopian tube-2 K3 Left ovary and tumor-1 K4 Left ovary and tumo r-2 K5 Tumor, ovary and peritoneal reflection-1 K6 Tumor, ovary and peritoneal reflection-2 K7 Posterior cervix 6:00 K8 Anterior myometrium and peritoneal reflection tumor-1 K9 Anterior myometrium and peritoneal reflection tumor-2 K10 Anterior endomyometrium K11 Posterior endomyometrium L Portion of sigmoid colon L1 Portion of sigmoid colon-1 L2 Portion of sigmoid colon-2 Interpretation FINAL DIAGNOSIS J. 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 See synoptic report. K. 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 Endometrium, cervix and fallopian tube are negative for tumor. A. Soft tissue, umbilical nodule, excision: Metastatic carcinoma. B. Falciform ligament, excision: Negative for tumor. C. Omentum, omentectomy: Metastatic carcinoma measuring up to 0.3 cm. Multiple (2) lymph nodes negative for tumor. D. Liver, segment III/IVB nodule, wedge resection: Metastatic carcinoma forming a 2.6 cm mass involving liver parenchyma. Margin negative for tumor. E. Peritoneum, right diaphragm, excision: Metastatic carcinoma measuring up to 3.6 cm. F. Soft tissue, right anterior abdominal wall, excision: Metastatic carcinoma. G. Pe ritoneum, right pelvic gutter, excision: Metastatic carcinoma. H. Peritoneum, left mid diaphragm, excision: Metastatic carcinoma. I. 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 L. Colon, portion sigmoid, resection: Metastatic carcinoma involving serosal surface. SYNOPTIC REPORT : Ovarian, Fallopian Tube, and Peritoneum Procedure: Total hysterectomy and bilateral salpingo-oophorectomy, omentectomy, peritoneal tumor debulking Specimen Integrity: Right Ovary: Capsule intact Left Ovary: Capsule intact Right Fallopian Tube: Serosa intact Left Fallopian Tube: Serosa intact Tumor Site: Right fallopian tube Tumor Size: 0.2 cm Histologic Type: High grade serous carcinoma Histologic Grade: WHO Grading System: Not applicable Two-Tier Grading System: High grade Ovarian Surface Involvement: Present, bilateral Fallopian Tube Surface Involvement: Present, right Implants: Not applic able Other Tissue/Organs Involvement: Right ovary, left ovary, uterine serosa, pelvic peritoneum, abdominal peritoneum, omentum, liver, spleen, colon serosa Largest Extrapelvic Peritoneal Focus: Macroscopic Specify sites: Diaphragm peritoneum Peritoneal/Ascitic Fluid: Not submitted Chemotherapy Response Score (CRS): 1 Regional Lymph Node Status Not applicable (no regional lymph nodes submitted or found) Distant Metastasis: Splenic parenchyma, liver parenchyma Pathologic Staging (AJCC, 8th edition) TNM Descriptors: y pT Category: pT3c pN Category: Not assigned (no regional nodes submitted) pM Category: pM1b FIGO Stage (2018): IVB The synoptic report incorporates information from all relevant surgical material and includes all required data elements of the current CAP Cancer Protocol. *Note: Due to a large number of results and/or encounters for the requested time period, some results have not been displayed. A complete set of results can be found in Results Review. CYTOLOGY: Order Name Source Comment Collection Info Order Time TYPE AND SCREEN Blood, Venous Draw in preop morning of surgery 05/09/2021 7:00 AM ABG W/COOX Blood, Arterial Line 05/09/2021 12:59 PM CALCIUM, IONIZED, S/B Blood, Arterial Line 05/09/2021 12:59 PM SODIUM, B Blood, Arterial Line 05/09/2021 12:59 PM POTASSIUM, B Blood, Arterial Line 05/09/2021 12:59 PM GLUCOSE, WHOLE BLOOD Blood, Arterial Line 05/09/2021 12:59 PM ABG W/COOX Blood, Arterial Line 05/09/2021 3:18 PM CALCIUM, IONIZED, S/B Blood, Arterial Line 05/09/2021 3:18 PM SODIUM, B Blood, Arterial Line 05/09/2021 3:18 PM POTASSIUM, B Blood, Arterial Line 05/09/2021 3:18 PM GLUCOSE, WHOLE BLOOD Blood, Arterial Line 05/09/2021 3:18 PM CBC WITHOUT DIFFERENTIAL, B Blood, Venous 05/09/2021 6:40 PM COMPREHENSIVE METABOLIC PANEL, S/P Blood, Venous 05/09/2021 6:40 PM SURGICAL PATHOLOGY, [facility] Umbilicus Collected By: Denisha Oviedo M.D. 05/09/2021 10:04 AM Collection Date 05/09/2021 Collection Time 10:04 AM DISMISSAL LABS: Hemoglobin: Lab Results Component Value Date HGB 8.4 (L) 05/11/2021 Creatinine: Lab Results Component Value Date CREATININE 0.81 05/12/2021 PAIN MEDICATIONS: Take your pain medications as instructed. It is best to take pain medications before your pain becomes severe. This will allow you to take less medication yet have better pain relief. For the first 2 or 3 days it may be helpful to take your pain medications on a regular schedule (e.g. every 4 to 6 hours). This will help you to keep your pain under better control. You should then begin to take fewer medications each day until you no longer need them. Do not take pain medication on an empty stomach. This may lead to nausea and vomiting. LIFTING: No lifting greater than 15 pounds for six weeks. PELVIC REST: No douching, tampons, or intercourse for 6 weeks. If prescribed, vaginal estrogen creammay be used during the postoperative period. DRIVING: No driving while on narcotics. Driving may be resumed initially with a competent passenger one to two weeks after surgery if no longer taking narcotics. EXERCISE: For six weeks your exercise should be limited to walking. You may walk as far as you wish,as long as you increase your level of exertion gradually and avoid slippery surfaces. You may climb stairs as needed to get around, but should not use stair climbing for exercise. VAGINAL DISCHARGE: You may develop a vaginal discharge and intermittent vaginal spotting after surgery and up to 6 weeks postoperatively. The discharge may have an odor and may change in color but it is normal. This is due to dissolving stitches. Contact your surgical team if you develop vaginal or vulvar irritation along with a discharge. Also contact your surgical team if you have vaginal dischargethat smells like urine or stool. WOUND CARE: If you have a band-aid or bandage on your wound, you may remove it the day after dismissal. You may wash the wound with mild soap and water. You may shower at any time but should avoid immersing any abdominal incisions in water for at least two weeks after surgery or until the wound is completely healed. If given, please shower with Hibiclens soap until bottle is completely finished. Keepyour wound clean and dry. You should observe your incision for signs of infection which include redness, warmth, drainage or fever. DIET: Continue no raw fruits or vegetables diet for 4 weeks ACTIVE ISSUES REQUIRING FOLLOW UP ?? You will be contacted by the primary team once the final pathology has resulted. At this time, the team may discuss recommendations for next steps of care. ?? You will need to have a 6 week postoperative visit for evaluation of your incision including a pelvic exam. If scheduled at [facility] then appointment desk will contact you to arrange this appointment. This appointment can also be done locally if you prefer and you will have to contact your localprovider to schedule this appointment. ?? Please continue the anticoagulation medication as prescribed until you are 28 days post surgery. ?? Consultation visits with Medical Oncology have been ordered. Please contact our schedulers to schedule these appointments at your convenience. SPLENECTOMY VACCINATIONS After your splenectomy you are at risk for certain infections and require specialized vaccinations based on your vaccination history. 1. H. influenza B (THIS IS NOT THE FLU SHOT) - Received in the hospital 2. Pneumococcal Primary Vaccination --- 1 dose of Pneumococcal conjugate vaccine, 13-valent (PCV13) - received in the hospital --- followed by 1 dose of Pneumococcal conjugate vaccine, 23-valent (PPSV23) ?8 weeks later. Revaccination --- Repeat 1 dose of PPSV23 5 years after the last dose of pneumococcal vaccine; repeat 1 final dose after age 65 years (as long as it has been at least 5 years since the last PPSV23 dose) 3. Meningococcal vaccines Primary Vaccination --- 2 doses of Meningococcal 4-valent conjugate (MenACWY) given 8 weeks apart. * you received the first dose in the hospital In patients who are receiving PCV13 simultaneously or have received PCV13 within the previous 4 weeks, Menveo (MenACWY-CRM) is recommended over Menactra (MenACWY-D). AND --- 2 doses of Meningoccocal B (MenB-4C) given 1 month apart * you received the first dose in the hospital Revaccination --- Give a single booster 12 months after completion of primary series. The booster must be the same brand as the primary series. If initial brand is unknown or unavailable, repeat the primary series. --- Give a single booster every 2 to 3 years thereafter. It is also important to have your annual flu vaccine ER DRIER documented in this encounter Discharge Instructions AttachmentsThe following attachments cannot be sent through Care Everywhere. Apixaban (By mouth) (Botswanan)Cyclobenzaprine (By mouth) (B[place]wanan)Hydromorphone (By mouth) ([place]wanan)documented in this encounter Medications at Time of Discharge Medication Sig Dispensed Refills Start Date End Date uxzkpvg-whtw-urrbl-oreg- Take 1 tablet by 0 capryl 100 mg-150 mg- 50 mouth daily. mg-150 mg capsule ondansetron (ZOFRAN) 8 Take 1 tablet (8 [...] Unknown or vomiting (HCC) (unrelieved by ondansetron). Vyvanse 70 mg capsule Take 70 mg by mouth 0 01/2408/10/2021 daily. acetaminophen (TYLENOL) Take 2 tablets 100 tablet [...] C, (VITAMIN C) 500 mg daily. tablet cyclobenzaprine Take 1 tablet (5 mg 10 tablet 0 05/13/2021 06/16/2021 (FLEXERIL) 5 mg tablet total) by mouth 3 (three) times a day as needed for muscle spasms. HYDROmorphone (DILAUDID) Take 1 tablet (2 mg 12 tablet 0 05/16/2021 2 mg tabletIndications: total) by mouth Acute Pain every 4 (four) hours as needed for severe pain or score 7-10 of 10 Indication: acute pain. ibuprofen (ADVIL,MOTRIN) Take 3 tablets (600 0 08/10/2021 200 mg tablet mg total) by mouth every 6 (six) hours as needed for pain. magnesium hydroxide Take 30 mL by mouth 0 021 08/10/2021 (MILK OF MAGNESIA) 400 2 (two) times a day mg/5 mL suspension as needed (constipation). sennosides-docusate Take 1 tablet by 0 05/13/2021 08/10/2021 sodium (SENOKOT-S) mouth 2 (two) times 8.6-50 mg per tablet a day as needed for constipation (especially while on narcotic pain medication). documented as of this encounter Progress Notes Lynn Armstrong M.D. - 05/14/2021 8:32 AM CST Gynecologic Oncology Progress Note Admission Date: 05/09/2021 Current Date: 05/14/2021 Angelica Yang is a 45 y.o. who is 5 Days Post-Op from Procedure(s) (LRB): LAPAROTOMY, EXPLORATORY. (N/A) TUMOR DEBULKING. (N/A) HYSTERECTOMY ABDOMINAL, BILATERAL SALPINGO-OOPHORECTOMY. (N/A) OMENTECTOMY. (N/A) WEDGE RESECTION LIVER. (N/A) INTRAOPERATIVE ULTRASOUND LIVER. (N/A) CYSTOSCOPY INSERTION STENT URETER. (Bilateral) SPLENECTOMY (N/A) Proctoscopy (N/A) STRIPPING DIAPHRAGM (Bilateral) LYSIS ADHESIONS (N/A) COLECTOMY LEFT WITH ANASTOMOSIS (N/A) for an interval debulking for HGSOC. ROS and patient/family/surgical history, located on admission H&P note dated 05/09/2021, have been reviewed, and there are no changes except as noted below Overnight/24 Hour Events: No acute events overnight. Subjective: Doing well this morning and feeling ready for discharge. Ambulating, tolerating PO, voiding spontaneously, and having bowel movements. Denies nausea and no episodes of emesis overnight. Objective: Current Vital Signs 24h Vital Sign Ranges T 36.8 ??C Temp Av.8 ??C Min: 36.5 ??C Max: 37.1 ??C BP 141/71 BP Min: 131/74 Max: 141/71 HR 88 Pulse Av.6 Min: 72 Max: 91 RR 16 Resp Av.3 Min: 14 Max: 16 SaO2 97 % SpO2 Av.2 % Min: 95 % Max: 97 % 24 Hour I/O Current Shift I/O Time Ins Outs 05/13 701 - 05/14 700 In: 2340 [P.O.:2340] Out: 4000 [Urine:4000] 05/14 701 - 05/14 190 In: 200 [P.O.:200] Out: - Physical exam: General appearance: alert, appears stated age and cooperative Abdomen: soft, appropriately tender; non-distended - improving exam Lungs: normal work of breathing Heart: regular rate and rhythm Extremities: no lower extremity edema Skin: incision c/d/i Psych: appropriate Neurologic: Grossly normal Diet: Full Labs Results from last 7 days Lab Units 05/11/21 0015 05/10/21 0119 05/09/21 1539 WBC x10(9)/L 11.9* 13.5* -- VBGRS HEMOGLOBIN g/dL -- -- 8.1* HEMOGLOBIN g/dL 8.4* 9.6* -- HEMATOCRIT % 25.9* 29.5* -- MCV fL 94.2 93.7 -- PLATELETS AUTO x10(9)/L 281 270 -- Results from last 7 days Lab Units 05/12/21 0035 05/11/21 0015 05/10/21 0119 SODIUM mmol/L 140 140 137 CHLORIDE mmol/L 105 103 103 BUN mg/dL 12 13 14 CREATININE mg/dL 0.81 0.87 0.76 CALCIUM mg/dL 8.4* 8.7 8.5* ALBUMIN g/dL -- -- 4.2 BILIRUBIN TOTAL mg/dL -- -- 1.0 ALK PHOS U/L -- -- 49 ALT U/L -- -- 297* AST U/L -- -- 598* GLUCOSE S mg/dL 93 99 126 Assessment & Plan: 45 y.o. who is 5 Days Post-Op from Procedure(s) (LRB): LAPAROTOMY, EXPLORATORY. (N/A) TUMOR DEBULKING. (N/A) HYSTERECTOMY ABDOMINAL, BILATERAL SALPINGO-OOPHORECTOMY. (N/A) OMENTECTOMY. (N/A) WEDGE RESECTION LIVER. (N/A) INTRAOPERATIVE ULTRASOUND LIVER. (N/A) CYSTOSCOPY INSERTION STENT URETER. (Bilateral) SPLENECTOMY (N/A) Proctoscopy (N/A) STRIPPING DIAPHRAGM (Bilateral) LYSIS ADHESIONS (N/A) COLECTOMY LEFT WITH ANASTOMOSIS (N/A) For HGSOC. #1 Malignant Neoplasm Of Ovary Laterality Unknown (HCC) #2 Personal History Of Malignant Neoplasm Of Ovary Code Status: Prior Pain: Continue PO dilaudid and NSAIDs with IV Dilaudid for breakthrough. ID: s/p ancef and flagyl for 24 hours. Received first round of splenectomy vaccines. FEN/GI: Tolerating general diet without issue. Antiemetics as needed. Continue bowel regimen, with escalation as needed. Encourage gum and coffee. CV: Stable. Resp: No active issues. : External stents removed in OR. Voiding spontaneously. Robust UOP. Heme: No s/sx of postoperative anemia. On lovenox for VTE prophylaxis. Will need home going anticoagulation - with Eliquis. Ppx: IS, SCDs, OOB Discharge plan: Discharge today Consults: none Lynn Armstrong M.D. Please direct questions/concerns to service pagers. The patient was evaluated and discussed with [employer] fellow Dr. Lagos and Dr. Stone who are in agreement with the plan of care. ER DRIER Ruben Rod M.D. - 05/13/2021 5:40 AM CST Gynecologic Oncology Progress Note Admission Date: 05/09/2021 Current Date: 05/13/2021 Angelica Yang is a 45 y.o. who is 4 Days Post-Op from Procedure(s) (LRB): LAPAROTOMY, EXPLORATORY. (N/A) TUMOR DEBULKING. (N/A) HYSTERECTOMY ABDOMINAL, BILATERAL SALPINGO-OOPHORECTOMY. (N/A) OMENTECTOMY. (N/A) WEDGE RESECTION LIVER. (N/A) INTRAOPERATIVE ULTRASOUND LIVER. (N/A) CYSTOSCOPY INSERTION STENT URETER. (Bilateral) SPLENECTOMY (N/A) Proctoscopy (N/A) STRIPPING DIAPHRAGM (Bilateral) LYSIS ADHESIONS (N/A) COLECTOMY LEFT WITH ANASTOMOSIS (N/A) for an interval debulking for HGSOC. ROS and patient/family/surgical history, located on admission H&P note dated 05/09/2021, have been reviewed, and there are no changes except as noted below Overnight/24 Hour Events: Overnight, she had increased discomfort. She felt like she needed a BM but was unable to pass anything. Subjective: This morning, she feels a little let down that her night was more rough. She has been walking. She is eating small amounts and chewing gum. Since 2 nights ago, no further bowel movements or flatus. Sheis not feeling nauseous. Objective: Current Vital Signs 24h Vital Sign Ranges T 36.6 ??C Temp Av.7 ??C Min: 36.4 ??C Max: 37.2 ??C BP 129/66 BP Min: 119/68 Max: 129/66 HR 78 Pulse Av Min: 69 Max: 78 RR 16 Resp Av Min: 15 Max: 18 SaO2 92 % SpO2 Av.7 % Min: 91 % Max: 98 % 24 Hour I/O Current Shift I/O Time Ins Outs 05/12 07 - 05/13 0700 In: 2160 [P.O.:2160] Out: 3795 [Urine:3625; Drains:170] 05/12 1901 - 05/13 0700 In: 420 [P.O.:420] Out: 1225 [Urine:1225] Physical exam: General appearance: alert, appears stated age and cooperative Abdomen: soft, appropriately tender; non-distended - improving exam Lungs: normal work of breathing Heart: regular rate and rhythm and no MRGs Extremities: no lower extremity edema Skin: no rashes or lesions, incision c/d/i Psych: appropriate Neurologic: Grossly normal LUQ drain: Removed Diet: Full Labs Results from last 7 days Lab Units 05/11/21 0015 05/10/21 0119 05/09/21 1539 WBC x10(9)/L 11.9* 13.5* -- VBGRS HEMOGLOBIN g/dL -- -- 8.1* HEMOGLOBIN g/dL 8.4* 9.6* -- HEMATOCRIT % 25.9* 29.5* -- MCV fL 94.2 93.7 -- PLATELETS AUTO x10(9)/L 281 270 -- Results from last 7 days Lab Units 05/12/21 0035 05/11/21 0015 05/10/21 0119 SODIUM mmol/L 140 140 137 CHLORIDE mmol/L 105 103 103 BUN mg/dL 12 13 14 CREATININE mg/dL 0.81 0.87 0.76 CALCIUM mg/dL 8.4* 8.7 8.5* ALBUMIN g/dL -- -- 4.2 BILIRUBIN TOTAL mg/dL -- -- 1.0 ALK PHOS U/L -- -- 49 ALT U/L -- -- 297* AST U/L -- -- 598* GLUCOSE S mg/dL 93 99 126 Assessment & Plan: 45 y.o. who is 4 Days Post-Op from Procedure(s) (LRB): LAPAROTOMY, EXPLORATORY. (N/A) TUMOR DEBULKING. (N/A) HYSTERECTOMY ABDOMINAL, BILATERAL SALPINGO-OOPHORECTOMY. (N/A) OMENTECTOMY. (N/A) WEDGE RESECTION LIVER. (N/A) INTRAOPERATIVE ULTRASOUND LIVER. (N/A) CYSTOSCOPY INSERTION STENT URETER. (Bilateral) SPLENECTOMY (N/A) Proctoscopy (N/A) STRIPPING DIAPHRAGM (Bilateral) LYSIS ADHESIONS (N/A) COLECTOMY LEFT WITH ANASTOMOSIS (N/A) For HGSOC. 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 ID: s/p ancef and flagyl for 24 hours. Received first round of splenectomy vaccines. FEN/GI: Continue to ADAT. Antiemetics as tolerated. Continue bowel regimen, with escalation as needed. Encourage gum and coffee. CV: Stable. Resp: No active issues. : External stents removed in OR. Voiding spontaneously. Robust UOP. Heme: No s/sx of postoperative anemia. On lovenox for VTE prophylaxis. Will need home going anticoagulation - with Eliquis. Ppx: IS, SCDs, OOB Discharge plan: Anticipate discharge possibly tomorrow. Continue to advance diet and have more consistent flatus/ROBF. Consults: none Ruben Rod M.D. Please direct questions/concerns to service pagers. ER DRIER Ruben Rod M.D. - 05/12/2021 5:42 AM CST Gynecologic Oncology Progress Note Admission Date: 05/09/2021 Current Date: 05/12/2021 Angelica Yang is a 45 y.o. who is 3 Days Post-Op from Procedure(s) (LRB): LAPAROTOMY, EXPLORATORY. (N/A) TUMOR DEBULKING. (N/A) HYSTERECTOMY ABDOMINAL, BILATERAL SALPINGO-OOPHORECTOMY. (N/A) OMENTECTOMY. (N/A) WEDGE RESECTION LIVER. (N/A) INTRAOPERATIVE ULTRASOUND LIVER. (N/A) CYSTOSCOPY INSERTION STENT URETER. (Bilateral) SPLENECTOMY (N/A) Proctoscopy (N/A) STRIPPING DIAPHRAGM (Bilateral) LYSIS ADHESIONS (N/A) COLECTOMY LEFT WITH ANASTOMOSIS (N/A) for an interval debulking for HGSOC. ROS and patient/family/surgical history, located on admission H&P note dated 05/09/2021, have been reviewed, and there are no changes except as noted below Overnight/24 Hour Events: Overnight, she had gas pain. She did start having some small bowel movements. Subjective: This morning, she is doing well. She has some cramping intermittently. She has had bowel movements and tolerated a bit more PO yesterday. Objective: Current Vital Signs 24h Vital Sign Ranges T 37.2 ??C Temp Av.7 ??C Min: 36.4 ??C Max: 37.2 ??C BP 121/62 BP Min: 97/77 Max: 127/74 HR 77 Pulse Av.6 Min: 69 Max: 87 RR 18 Resp Av Min: 16 Max: 18 SaO2 92 % SpO2 Av.8 % Min: 92 % Max: 98 % 24 Hour I/O Current Shift I/O Time Ins Outs 05/11 0701 - 05/12 0700 In: 980 [P.O.:980] Out: 3550 [Urine:1800; Drains:300] 05/11 1901 - 05/12 0700 In: - Out: 1640 [Urine:100; Drains:90] Physical exam: General appearance: alert, appears stated age and cooperative Abdomen: soft, appropriately tender; non-distended Lungs: normal work of breathing Heart: regular rate and rhythm and no MRGs Extremities: no lower extremity edema Skin: no rashes or lesions, incision c/d/i Psych: appropriate Neurologic: Grossly normal LUQ drain: 360cc out for 24 hour total yesterday Diet: Full Labs Results from last 7 days Lab Units 05/11/21 0015 05/10/21 0119 05/09/21 1539 WBC x10(9)/L 11.9* 13.5* -- VBGRS HEMOGLOBIN g/dL -- -- 8.1* HEMOGLOBIN g/dL 8.4* 9.6* -- HEMATOCRIT % 25.9* 29.5* -- MCV fL 94.2 93.7 -- PLATELETS AUTO x10(9)/L 281 270 -- Results from last 7 days Lab Units 05/12/21 0035 05/11/21 0015 05/10/21 0119 SODIUM mmol/L 140 140 137 CHLORIDE mmol/L 105 103 103 BUN mg/dL 12 13 14 CREATININE mg/dL 0.81 0.87 0.76 CALCIUM mg/dL 8.4* 8.7 8.5* ALBUMIN g/dL -- -- 4.2 BILIRUBIN TOTAL mg/dL -- -- 1.0 ALK PHOS U/L -- -- 49 ALT U/L -- -- 297* AST U/L -- -- 598* GLUCOSE S mg/dL 93 99 126 Assessment & Plan: 45 y.o. who is 3 Days Post-Op from Procedure(s) (LRB): LAPAROTOMY, EXPLORATORY. (N/A) TUMOR DEBULKING. (N/A) HYSTERECTOMY ABDOMINAL, BILATERAL SALPINGO-OOPHORECTOMY. (N/A) OMENTECTOMY. (N/A) WEDGE RESECTION LIVER. (N/A) INTRAOPERATIVE ULTRASOUND LIVER. (N/A) CYSTOSCOPY INSERTION STENT URETER. (Bilateral) SPLENECTOMY (N/A) Proctoscopy (N/A) STRIPPING DIAPHRAGM (Bilateral) LYSIS ADHESIONS (N/A) COLECTOMY LEFT WITH ANASTOMOSIS (N/A) For HGSOC. 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 She will f/u with Dr. Oviedo's team in 6 weeks and see medical oncology back. Pain: Did have a spinal anesthetic. Continue PO dilaudid and NSAIDs with IV Dilaudid for breakthrough. ID: s/p ancef and flagyl for 24 hours. Will need splenectomy vaccinations - will start these inpatient. FEN/GI: Continue to ADAT. Antiemetics as tolerated. Continue bowel regimen, with escalation as needed. DC entereg. Encourage gum and coffee. CV: Stable. Resp: No active issues. : External stents removed in OR. Voiding spontaneously. Robust UOP. Cr 0.81. Heme: No s/sx of postoperative anemia. On lovenox for VTE prophylaxis. Will need home going anticoagulation. Ppx: IS, SCDs, OOB Discharge plan: when meeting DC milestones. Consults: none Ruben Rod M.D. Please direct questions/concerns to service pagers. ER DRIER Ruben Rod M.D. - 05/11/2021 6:15 AM CST Gynecologic Oncology Progress Note Admission Date: 05/09/2021 Current Date: 05/11/2021 Angelica Yang is a 45 y.o. who is 2 Days Post-Op from Procedure(s) (LRB): LAPAROTOMY, EXPLORATORY. (N/A) TUMOR DEBULKING. (N/A) HYSTERECTOMY ABDOMINAL, BILATERAL SALPINGO-OOPHORECTOMY. (N/A) OMENTECTOMY. (N/A) WEDGE RESECTION LIVER. (N/A) INTRAOPERATIVE ULTRASOUND LIVER. (N/A) CYSTOSCOPY INSERTION STENT URETER. (Bilateral) SPLENECTOMY (N/A) Proctoscopy (N/A) STRIPPING DIAPHRAGM (Bilateral) LYSIS ADHESIONS (N/A) COLECTOMY LEFT WITH ANASTOMOSIS (N/A) for an interval debulking for HGSOC. ROS and patient/family/surgical history, located on admission H&P note dated 05/09/2021, have been reviewed, and there are no changes except as noted below Overnight/24 Hour Events: Yesterday evening she was having increased pain, distention, and GERD. She was placed on a clear diet. Overnight, she did have a desaturation event. Saturations returned to normal with nasal cannula support. CXR performed and small bilateral pleural effusions noted. No pneumothorax. Subjective: This morning, she is resting in bed. She is feeling better this morning compared to last night. She has been ambulating. Her pain is under better control. Does not have an appetite, but no nausea or emesis. She notes her pain primarily is the upper abdomen/lower chest. Objective: Current Vital Signs 24h Vital Sign Ranges T 36.7 ??C Temp Av.7 ??C Min: 36.4 ??C Max: 37.1 ??C BP 107/57 BP Min: 107/57 Max: 114/60 HR 78 Pulse Av.5 Min: 60 Max: 83 RR 18 Resp Av.6 Min: 14 Max: 18 SaO2 97 % SpO2 Av.7 % Min: 86 % Max: 99 % 24 Hour I/O Current Shift I/O Time Ins Outs 05/10 0701 - 05/11 0700 In: 1670 [P.O.:1470] Out: 2845 [Urine:2445; Drains:400] 05/10 1901 - 05/11 0700 In: 500 [P.O.:500] Out: 1920 [Urine:1650; Drains:270] Physical exam: General appearance: alert, appears stated age and cooperative Abdomen: soft, appropriately tender; non-distended Lungs: normal work of breathing Heart: regular rate and rhythm and no MRGs Extremities: no lower extremity edema Skin: no rashes or lesions, incision c/d/i Psych: appropriate Neurologic: Grossly normal LUQ drain: 60cc out since midnight; 420cc out yesterday 24 hours Diet: Clear Labs Results from last 7 days Lab Units 05/11/21 0015 05/10/21 0119 05/09/21 1539 WBC x10(9)/L 11.9* 13.5* -- VBGRS HEMOGLOBIN g/dL -- -- 8.1* HEMOGLOBIN g/dL 8.4* 9.6* -- HEMATOCRIT % 25.9* 29.5* -- MCV fL 94.2 93.7 -- PLATELETS AUTO x10(9)/L 281 270 -- Results from last 7 days Lab Units 05/11/21 0015 05/10/21 0119 05/09/21 1539 SODIUM mmol/L 140 137 -- NABS SODIUM mmol/L -- -- 140 CHLORIDE mmol/L 103 103 -- BUN mg/dL 13 14 -- CREATININE mg/dL 0.87 0.76 -- CALCIUM mg/dL 8.7 8.5* -- ALBUMIN g/dL -- 4.2 -- BILIRUBIN TOTAL mg/dL -- 1.0 -- ALK PHOS U/L -- 49 -- ALT U/L -- 297* -- AST U/L -- 598* -- GLUCOSE mg/dL -- -- 174* GLUCOSE S mg/dL 99 126 -- Assessment & Plan: 45 y.o. who is 2 Days Post-Op from Procedure(s) (LRB): LAPAROTOMY, EXPLORATORY. (N/A) TUMOR DEBULKING. (N/A) HYSTERECTOMY ABDOMINAL, BILATERAL SALPINGO-OOPHORECTOMY. (N/A) OMENTECTOMY. (N/A) WEDGE RESECTION LIVER. (N/A) INTRAOPERATIVE ULTRASOUND LIVER. (N/A) CYSTOSCOPY INSERTION STENT URETER. (Bilateral) SPLENECTOMY (N/A) Proctoscopy (N/A) STRIPPING DIAPHRAGM (Bilateral) LYSIS ADHESIONS (N/A) COLECTOMY LEFT WITH ANASTOMOSIS (N/A) For HGSOC. 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 She will f/u with Dr. Oviedo's team in 6 weeks and see medical oncology back. Pain: Did have a spinal anesthetic. Continue PO dilaudid and NSAIDs with IV Dilaudid for breakthrough. ID: s/p ancef and flagyl for 24 hours. Will need splenectomy vaccinations. FEN/GI: Continue to ADAT. Antiemetics as tolerated. Continue bowel regimen, with escalation as needed. Continue entereg until has a bowel movement. Encourage gum and coffee. CV: Stable. Resp: No active issues. : External stents removed in OR. Voiding spontaneously. Robust UOP. Heme: No s/sx of postoperative anemia. Transition to lovenox today. Will need home going anticoagulation. Ppx: IS, SCDs, OOB Discharge plan: when meeting DC milestones. Consults: none Ruben Rod M.D. Please direct questions/concerns to service pagers. ER DRIER Sussy Albert M.D. - 05/10/2021 10:27 PM CST In to evaluate patient after notified by nursing that she desaturated to 80% while sleeping. She awoke the patient and had her use IS and then get up and walk with recovery of oxygen saturation. She had normal work of breathing. She placed her on 2LNC in anticipation of repeat desaturation with sleeping. Constance tells me she has significant pain over her left upper quadrant/left rib cage with deep breathes. She noticed this this afternoon when she started using the incentive spirometer. She feels like this limits her breathing but is not feeling short of breath otherwise. She does continue to have generalized abdominal pain and distension. She has nausea but it is manageable. She has not passed gas. BP 114/60 (BP Location: Left arm;Upper, Patient Position: Lying) Pulse 69 Temp 36.9 ??C (Oral) Resp 16 Ht 167 cm Wt 64.8 kg SpO2 93% BMI 23.23 kg/m?? General: Laying in bed in no acute distress CV: Normal rate and rhythm, normal S1 + S2 Resp: Normal respiratory effort on 2L NC. On auscultation, decreased breath sounds in lower lobes bilaterally. Potential crackles on right lower lobe. Abd: Mildly distended, midline incision covered, appropriately tender to palpation. Extremities: SCDs in place. No edema or tenderness in lower extremities bilaterally. Most likely this desaturation event is due to fluid shifts post-operatively exacerbated by sleeping.However, she had diaphragm stripping completed (no diaphragm injury noted intra-operatively). Given this, will obtain upright chest x-ray to rule out pneuomo. Low concern for pulmonary embolism at thistime due to otherwise normal vital signs. Discussed this with the patient and as well as spoilage worker onc fellow carbonating stone cleaner Dr. Lagos. Addendum: Chest x-ray completed and prelim read negative for pneumo; small bilateral pleural effusions and atelectasis present. Noticeable air fluid levels in stomach. Will continue with oxygen supplementation overnight and continuous pulse oximetry. Encourage IS when awake. Discussed with patient miguel a. Sussy Albert M.D. Harrison Snell Pharm.D., R.Ph. - 05/10/2021 7:52 AM CST Pharmacist Progress Note Reason for admission: 45 yo F with malignant neoplasm of ovary, laterality unknown, now s/p ExLap, Tumor DEBULKING, hysterectomy abdominal, BSO, omentectomy, splenectomy, proctoscopy, stripping diaphragm, lysis adhesions, colectomy left with anastomosis, wedge resection liver, intraoperative ultrasound liver, and cystoscopy insertion stent ureter on 05/09/2021. PMH: ovarian cancer, mass ovary, drug induced neutropenia, intestinal obstruction, motion sickness OBJECTIVE Home medications: ?? Held: NAC ?? Changed: none Patient own medications: none Prophylaxis: Entereg, SQH N: Pain 2-5/10, APAP, NSAIDs, PRN oxy (intrathecal in OR) CV: VSSWNL FEN: K 4.8 (5.4), LFTs elevated, PO hydration Neph: UO: 2.4 mL/kg/hr overnight, SCr: 0.76 GI: -F/S/-N, ondansetron for Nausea, Entereg for OIC prevention ID: AF, WBC 13.5, periop abx only ASSESSMENT / PLAN 1. Continue ERP 2. Trend LFTs 3. Discontinue Entereg upon return of bowel function Changes to medications anticipated at discharge: VTE prophylaxis x 28 days, Splenectomy vaccines will be needed. Harrison Zaldivar Pharm.D., R.Ph. Cami Day M.D. - 05/10/2021 5:37 AM CST [facility] Angelica Yang was seen and examined this morning. Pain well controlled. No nausea or vomiting. Tolerating small po, no bowel function yet. OBJECTIVE I have reviewed the current vital sign data as applicable. VITAL SIGNS Temperature: [36.3 ??C-36.9 ??C] 36.5 ??C Heart Rate: [60-81] 60 Resp Rate: [12-21] 16 Blood Pressure: (96-120)/(48-78) 101/63 Arterial Line BP: (120-137)/(63-67) 125/63 SpO2: [89 %-100 %] 89 % Pulse Rate: [56-84] 72 I/O Admission Weight: 59.6 kg Current Weight: 59.6 kg PHYSICAL EXAM General: awake, alert, no distress Lungs: nonlabored breathing, bilateral breath sounds Heart: regular rate and rhythm Abdomen: soft, nondistended. Surgical Incisions: clean/dry/intact. Appropriate postoperative tenderness. Extremities: warm and well perfused DIAGNOSTICS Recent Results (from the past 24 hour(s)) Type and Screen (with reflex Antibody ID) Collection Time: 05/09/21 7:29 AM Result Value ABORh B Neg Antibody Screen Negative Type & Screen Expiration 05/12/2021 23:59 Testing Location [facility] Blood Gas with Coox, Arterial Collection Time: 05/09/21 1:01 PM Result Value pO2 213 (H) pCO2 38 pH 7.41 Base Excess -1 HCO3 24 Hemoglobin, B 9.2 (L) O2Hb 99.7 (H) COHb 1.1 MetHb <1.0 CtO2 13.4 (L) Calcium, Ionized Collection Time: 05/09/21 1:01 PM Result Value Calcium, Ionized, B 4.52 (L) Sodium, B Collection Time: 05/09/21 1:01 PM Result Value Sodium, B 140 Potassium, Blood Collection Time: 05/09/21 1:01 PM Result Value Potassium, B 3.6 Glucose, Whole Blood Collection Time: 05/09/21 1:01 PM Result Value Glucose 185 (H) Patient Status Collection Time: 05/09/21 1:01 PM Result Value Temperature 35.7 FIO2 0.40 Blood Gas with Coox, Arterial Collection Time: 05/09/21 3:39 PM Result Value pO2 222 (H) pCO2 40 pH 7.40 Base Excess -1 HCO3 25 Hemoglobin, B 8.1 (L) O2Hb 98.3 (H) COHb 1.4 MetHb <1.0 CtO2 11.7 (L) Calcium, Ionized Collection Time: 05/09/21 3:39 PM Result Value Calcium, Ionized, B 4.51 (L) Sodium, B Collection Time: 05/09/21 3:39 PM Result Value Sodium, B 140 Potassium, Blood Collection Time: 05/09/21 3:39 PM Result Value Potassium, B 3.8 Glucose, Whole Blood Collection Time: 05/09/21 3:39 PM Result Value Glucose 174 (H) Patient Status Collection Time: 05/09/21 3:39 PM Result Value Temperature 36.2 FIO2 0.34 CBC without Differential Collection Time: 05/10/21 1:19 AM Result Value Hemoglobin 9.6 (L) Hematocrit 29.5 (L) Erythrocytes 3.15 (L) MCV 93.7 RBC Distrib Width 17.5 (H) Platelet Count 270 Leukocytes 13.5 (H) Comprehensive Metabolic Panel Collection Time: 05/10/21 1:19 AM Result Value Potassium, S 5.4 (H) Sodium, S 137 Chloride, S 103 Bicarbonate, S 22 Anion Gap 12 BUN (Blood Urea Nitrogen), S 14 Creatinine, S 0.76 eGFR-Non Black/ >90 eGFR-Black/ >90 Calcium, Total, S 8.5 (L) Glucose, S 126 Protein, Total, S 5.7 (L) Albumin, S 4.2 Aspartate Aminotransferase (AST), S 598 (H) Alkaline Phosphatase, S 49 Alanine Aminotransferase (ALT), S 297 (H) Bilirubin, Total, S 1.0 Cultures: Microbiology Results (last 30 days) Procedure Component Value - Date/Time SARS CoV-2 RNA, PCR, Varies Asymptomatic [[id number]] Collected: 05/08/21 0708 Lab Status: Final result Specimen: Varies from Nasopharynx Updated: 05/08/21 1324 SARS CoV-2 RNA, PCR, Source Swab, Nasopharynx SARS CoV-2 RNA, PCR Undetected Comment: SARS-CoV-2 RNA absent. This result does not rule out COVID-19 in the patient, as the sensitivity of the test depends on the timing of the specimen collection and quality of the specimen. Result should be correlated with patient's history and clinical presentation. ----ADDITIONAL INFORMATION---- This RT-PCR test has received Emergency Use Authorization (EUA) by the U.S. Food and Drug Administration and is used per agricultural commodities inspector's instructions. Performance characteristics were verified by [facility] in a manner consistent with CLIA requirements. Visit the CDC website: https://www.cdc.gov/coronavirus/ for the most recent guidelines on Coronavirus testing. Fact Sheet for Healthcare Providers: https://www.fda.gov/media/919113/download Fact Sheet for Patients: https://www.fda.gov/media/389664/download SARS Coronavirus 2, PCR Rapid, V Symptomatic [[id number]] Collected: 04/25/21 0320 Lab Status: Final result Specimen: Varies from Nasopharynx Updated: 04/25/21 0415 SARS CoV-2, PCR, Rapid, V Undetected Comment: ----ADDITIONAL INFORMATION---- This RT-PCR test was performed using the [employer] SARS-CoV-2 and Influenza A/B Reagent assay from [employer], which has received Emergency Use Authorization(EUA) by the U.S. Food and Drug Administration. Fact sheets for this Emergency Use Authorization (EUA) assay can be found at the following links: For Healthcare Providers: https://www.fda.gov/media/462334/download For Patients: https://www.fda.gov/media/450002/download SARS Coronavirus 2, Source, Rapid Swab, Nasopharynx Bacteria / Ebony Culture, Blood #1 [[id number]] Collected: 04/25/21 0207 Lab Status: Final result Specimen: Blood, Peripheral Draw Updated: 04/30/21 0303 Bacteria/Ebony Culture, Blood No growth after 5 day/s of incubation. Bacteria / Ebony Culture, Blood #2 [[id number]] Collected: 04/25/21 0158 Lab Status: Final result Specimen: Blood, Peripheral Draw Updated: 04/30/21 0303 Bacteria/Ebony Culture, Blood No growth after 5 day/s of incubation. 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 LFTs reviewed and appropriate. All other cares per primary service. Please page with questions or concerns. Cami Duran MD Resident General Surgery [employer] [phone] pager phone [email or web address] ER DRIER Ruben Rod M.D. - 05/10/2021 5:09 AM CST Gynecologic Oncology Progress Note Admission Date: 05/09/2021 Current Date: 05/10/2021 Angelica Yang is a 45 y.o. who is 1 Day Post-Op from Procedure(s) (LRB): LAPAROTOMY, EXPLORATORY. (N/A) TUMOR DEBULKING. (N/A) HYSTERECTOMY ABDOMINAL, BILATERAL SALPINGO-OOPHORECTOMY. (N/A) OMENTECTOMY. (N/A) WEDGE RESECTION LIVER. (N/A) INTRAOPERATIVE ULTRASOUND LIVER. (N/A) CYSTOSCOPY INSERTION STENT URETER. (Bilateral) SPLENECTOMY (N/A) Proctoscopy (N/A) STRIPPING DIAPHRAGM (Bilateral) LYSIS ADHESIONS (N/A) COLECTOMY LEFT WITH ANASTOMOSIS (N/A) for an interval debulking for HGSOC. ROS and patient/family/surgical history, located on admission H&P note dated 05/09/2021, have been reviewed, and there are no changes except as noted below Overnight/24 Hour Events: No acute events overnight. Subjective: This morning Ms. Yang is resting in bed. Her pain is currently well controlled. She gets fatigued with oxycodone. She has ambulated. She has not had any PO intake in yet. Her briceño was just removed. Objective: Current Vital Signs 24h Vital Sign Ranges T 36.5 ??C Temp Av.5 ??C Min: 36.3 ??C Max: 36.9 ??C BP 101/63 BP Min: 96/48 Max: 120/78 HR 72 Pulse Av.1 Min: 56 Max: 84 RR 16 Resp Av.2 Min: 12 Max: 21 SaO2 (!) 89 % SpO2 Av.6 % Min: 89 % Max: 100 % 24 Hour I/O Current Shift I/O Time Ins Outs 05/09 701 - 05/10 700 In: 6724 [P.O.:720] Out: 3205 [Urine:2445; Drains:260] 05/09 1901 - 05/10 700 In: 1524 [P.O.:420] Out: 1840 [Urine:1720; Drains:120] Physical exam: General appearance: alert, appears stated age and cooperative Abdomen: soft, appropriately tender; non-distended : No gross VB, Briceño has been removed Lungs: normal work of breathing Heart: regular rate and rhythm and no MRGs Extremities: no lower extremity edema Skin: no rashes or lesions, incision covered with clean bandage Psych: appropriate Neurologic: Grossly normal LUQ drain: 80cc out since midnight Diet: Regular with no raw fruits or vegetables, bananas ok Labs Results from last 7 days Lab Units 05/10/2111805/09/21 1539 05/09/21 1301 WBC x10(9)/L 13.5* -- -- VBGRS HEMOGLOBIN g/dL -- 8.1* 9.2* HEMOGLOBIN g/dL 9.6* -- -- HEMATOCRIT % 29.5* -- -- MCV fL 93.7 -- -- PLATELETS AUTO x10(9)/L 270 -- -- Results from last 7 days Lab Units 05/10/2111805/09/21 1539 05/09/21 1301 SODIUM mmol/L 137 -- -- NABS SODIUM mmol/L -- 140 140 CHLORIDE mmol/L 103 -- -- BUN mg/dL 14 -- -- CREATININE mg/dL 0.76 -- -- CALCIUM mg/dL 8.5* -- -- ALBUMIN g/dL 4.2 -- -- BILIRUBIN TOTAL mg/dL 1.0 -- -- ALK PHOS U/L 49 -- -- ALT U/L 297* -- -- AST U/L 598* -- -- GLUCOSE mg/dL -- 174* 185* GLUCOSE S mg/dL 126 -- -- Assessment & Plan: 45 y.o. who is 1 Day Post-Op from Procedure(s) (LRB): LAPAROTOMY, EXPLORATORY. (N/A) TUMOR DEBULKING. (N/A) HYSTERECTOMY ABDOMINAL, BILATERAL SALPINGO-OOPHORECTOMY. (N/A) OMENTECTOMY. (N/A) WEDGE RESECTION LIVER. (N/A) INTRAOPERATIVE ULTRASOUND LIVER. (N/A) CYSTOSCOPY INSERTION STENT URETER. (Bilateral) SPLENECTOMY (N/A) Proctoscopy (N/A) STRIPPING DIAPHRAGM (Bilateral) LYSIS ADHESIONS (N/A) COLECTOMY LEFT WITH ANASTOMOSIS (N/A) For HGSOC. 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 She will f/u with Dr. Oviedo's team in 6 weeks. Pain: Did have a spinal anesthetic. Continue PO oxycodone and NSAIDs with IV Dilaudid for breakthrough. ID: Continue ancef and flagyl for 24 hours. Will need splenectomy vaccinations. FEN/GI: Continue to ADAT. Antiemetics as tolerated. Continue bowel regimen, with escalation as needed. Continue entereg until has a bowel movement. CV: Stable. Resp: No active issues. : External stents removed in OR. Remove Briceño POD1 - has been removed and pending void. Robust UOP. Heme: No s/sx of postoperative anemia. Continue heparin with transition to lovenox anticipated tomorrow. Will need home going. Ppx: IS, SCDs, OOB Discharge plan: when meeting DC milestones. Consults: none Ruben Rod M.D. Please direct questions/concerns to service pagers. Sussy Dorado M.D. - 05/09/2021 8:24 PM CST Seen postoperatively on arrival to the floor. She is overall doing very well given recent surgery. Her is at bedside. Her pain is primarily muscle spasms and spread throughout her anterior abdominal wall and is prompted by movement. Without movement in at baseline, her pain is well controlled.She has not yet ambulated. She is tolerating sips of fluid; she has not tried food yet. BP (!) 104/52 Pulse (!) 58 Temp 36.3 ??C Resp 14 Ht 167 cm Wt 59.6 kg SpO2 97% BMI 21.37 kg/m?? General: Winces with spasms after movement but otherwise well appearing, alert and oriented Abd: Midline incision covered without strikethrough. LUQ drain with serosanguinous output. Abd nondistended, guarding, appropriate tenderness to palpation. : Briceño in place with light yellow urine We discussed pain control options as well as trying medications for bladder spasms. Will order ditropan PRN. She is alert and oriented and will try walking when appropriate and likely the Briceño catheter will be removed overnight. If the spasms are still present, can try a dose of Flexeril. Her and her had no other concerns at this time. I let them know that I am available if needed. Sussy Albert M.D. ER DRIER Harrison Zaldivar Pharm.D., R.Ph. - 05/09/2021 6:56 AM CST Images from the original note were not included. Admission Medication History Note Adherence issues: No concerns Medication list source: Patient Medication related information: Patient stated she would like to continue her CHISELER HEAD Vyvanse while in the hospital. Prior to Admission Medications Med List Status: Pharmacy Complete Set By: Harrison Zaldivar, Candice., R.Ph. at 05/09/2021 6:56 AM Taking? Last Dose Informant Start Date End Date LT acetaminophen (TYLENOL) 500 mg tablet 04/25/21 -- Take 2 tablets (1,000 mg total) by mouth every 6 (six) hours as needed for mild pain or score 1-3 of 10, headaches or fever. acetylcysteine (NAC) 600 mg capsule 05/02/2021 -- -- Take 600 mg by mouth 2 (two) times a day. ascorbic acid, vitamin C, (Vitamin C) 1,000 mg tablet 05/02/2021 -- -- Take 1,000 mg by mouth daily. ibuprofen (ADVIL,MOTRIN) 200 mg tablet 05/08/2021 -- -- Take 200 mg by mouth every 6 (six) hours as needed. ondansetron (ZOFRAN) 8 mg tablet Past Month 02/23/21 02/23/22 Take 1 tablet (8 mg total) by mouth every 8 (eight) hours as needed for nausea or vomiting. prochlorperazine (COMPAZINE) 10 mg tablet Past Month 02/23/21 02/23/22 Take 1 tablet (10 mg total) by mouth every 6 (six) hours as needed for nausea or vomiting (unrelieved by ondansetron). sapprjq-euku-jmttp-oreg-capryl 100 mg-150 mg- 50 mg-150 mg capsule 05/02/2021 -- -- Take 1 tablet by mouth daily. Vyvanse 70 mg capsule 05/08/2021 01/24/21 -- Take 70 mg by mouth daily. ER DRIER documented in this encounter Nursing Notes Celeste Cameron R.N. - 05/14/2021 11:02 AM CST Shift Goals: Clinical Goals for the Shift: Patient will meet all discharge criteria Identify possible barriers to meeting goals/advancing plan of care: None End of Shift Summary: Patient has been vitally stable on room air. Pain has been managed with oral medications. She has been ambulating independently and tolerating it well. She has tolerated a regulardiet with no nausea. She is voiding and had two bowel movements this morning. Discharge education was completed at the bedside with the patient and family. After meeting all discharge criteria the patient discharged [facility] leaving the unit in a wheelchair with transport services. ER DRIER Celeste Goldberg R.N. - 05/09/2021 9:44 PM CST End of Shift Summary: Patient had intermittent abdominal muscle spasms - 10mg oxycodone given. Nubain given for itching. Tolerating sips of clear liquids - no nausea. Dangled at bedside - unable to stand or ambulate due to dizziness Problem: PAIN - ADULT Goal: PT VERBALIZES/DEMONSTRATES ADEQUATE COMFORT LEVEL OR BASELINE Outcome: Progressing Problem: KNOWLEDGE DEFICIT Goal: Patient/family/caregiver demonstrates understanding of disease process, treatment plan, medications, and discharge instructions Outcome: Progressing Problem: INFECTION - ADULT Goal: Absence of infection during hospitalization Outcome: Progressing Problem: SKIN/TISSUE INTEGRITY Goal: Skin/Tissue integrity maintained or improved Outcome: Progressing Goal: Oral and Nasal mucous membranes remain intact Outcome: Progressing Problem: SAFETY ADULT Goal: Maintain a safe environment Outcome: Progressing Problem: SAFETY ADULT Goal: Maintain a safe environment Outcome: Progressing Problem: DISCHARGE PLANNING Goal: Patient discharge needs identified Outcome: Progressing Problem: SAFETY ADULT - RISK FOR FALL AND OR FALL INJURY Goal: Patient remains free from fall/fall injury Outcome: Progressing ER DRIER documented in this encounter OR Notes Op Note - Wilma Castro M.D. 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 Findings Liver metastasis at base of falciform ligament at junction of segments IVb and III resected. Complications None Description of Procedure Indications: Mrs. 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 Oviedo. I met the patient in clinic alongside Dr. Oviedo last week and consented her for liver resection with intraoperative ultrasound along with Dr. Oviedo's planned procedures. Description of procedure: Procedure was in progress upon my arrival. Please see Dr. Oviedo's notes for full details. Upon my arrival, excellent exposure had been achieved. Intraoperative ultrasound demonstrated as expected a superficial nodule at the base of the falciform ligament with some evidence of mass/treatment effect ext ending down to the portal pedicle where segment III branches off from left main. Full liver mobilization was completed as Dr. Oviedo is anticipating peritoneal stripping of diaphragm. A small capsular disruption in segment VIII was managed with aquamantys. Possible splenectomy is planned so greater curve of stomach was mobilized off pancreas. Umbilical tape was placed through the Foramen of Raman and secured with Spencer clamp to facilitatePringle maneuver. The planned transection plane was marked off using ultrasound. 0 chromic sutures on a blunt needle were placed on either side of planned resection and falciform attachments still present were used to provide traction and counter traction. Crush clamp and thermal parenchymal transection technique then proceeded using a curved clamp and Ligasure. At base of portal pedicle there was some treatment effect/scarring. Minor bleeding was encountered here upon final transection of specimen from it's base attachment to the sheath surrounding portal structures at this juncture. Kole was placed for less than 3 minutes and hemostasis was achieved using chromic mattress suture incorporatingGlisson's capsule above and below the bleeding area with fibrillar at base. The remainder of the parenchymal transection margin was ablated using the Aquamantys. Hemostasis was excellent. I then yielded the procedure back to Dr. Oviedo and her team. EBL for liver portion approximately 50mL Wilma Castro M.D. ER DRIER Op Note - Denisha Oviedo M.D. 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 Findings Disease present as expected based on preoperative imaging. Complete resection obtained. This case was substantially more difficult than usual because of significant effort and difficulty mobilizing and identifying anatomical structures due to altered surgical field secondary to distorted anatomy.This case was substantially more difficult than usual because of difficult location.This case was substantially more difficult than usual because of lysing adhesions/ scar tissue for greater than 90 minutes. Complications None Cancer: Ovarian. Initial and Residual Findings: Abdominal Peritoneum Initial: > 1cm. Residual: 0/micro. Bowel Mesentery Initial: > 1cm. Residual: 0/micro. Bowel Serosa Initial: > 1cm. Residual: 0/micro. Right Diaphragm Initial: > 1cm. Residual: 0/micro. Left Diaphragm Initial: > 1cm. Residual: 0/micro. Lightout Examiner Organs, Pelvic Colon & Peritoneum Initial: > 1cm. Residual: 0/micro. Liver Parenchyma Initial: > 1cm. Residual: 0/micro. Liver Surface Initial: > 1cm. Residual: 0/micro. Omentum Initial: < 1cm. Residual: 0/micro. Spleen Parenchyma Initial: 0/micro. Residual: 0/micro. Spleen Surface/Hilum Initial: > 1cm. Residual: 0/micro. Overall Residual Disease (Single Largest Lesion in Greatest Dimension): 0 Ascites: No. Carcinomatosis: No. Description of Procedure The patient was brought to the operating room, where general anesthesia was initiated and found to be adequate. She was then prepped and draped in the normal sterile fashion in the dorsal lithotomy position and a Briceño catheter was placed. A midline incision was made, and the findings are summarized above. We began in the upper abdomen. We divided the falciform ligament, coronary ligament complex andmobilized the liver fully, and retracted it medially. The right diaphragm was then completely stripped. There was one section of the diaphragm which was imbedded in the surface of the liver. We began to remove this, and then Dr. Castro completed the removal. Please see her dictation for details. At this point Dr. Castro also completed her portion of the procedure. The omentum was then identified, and was dissected from the transverse colon. The omentum was then removed in the usual fashion using Ligasure. The gastroepiploic arcade was spared. At this point we also performed debulking of the entire abdominal peritoneum. Nodules were removed from the right anterior abdominal peritoneum, left and right perinephric peritoneum, umbilical peritoneum, and left colic gutter. At this point we turned our attention to the left upper quadrant. The spleen had disease attached to it and to the diaphragm peritoneum on the left. It was not possible to remove the disease from the spleen, and therefore we proceeded with splenectomy. We then incised the peritoneal attachmentsfrom the spleen to the diaphragm and mobilized the spleen with the pancreas up out of the field, safely dissecting it away from the kidney and adrenal gland. Dr. Castro had already divided the short gastric vessels along the greater curvature of the stomach with her procedure. With the spleen and pancreas mobilized, then we divided the splenic vessels using the Ligasure. A leak test was performed forboth the right and left diaphragms and they were completely intact. At this point we turned our attention to the pelvis. Lysis of adhesions was 1st performed for greater than 90 minutes using monopolar cautery, Metzenbaum scissors, and blunt dissection in order to identify a normal anatomical structures. The round ligaments were divided, broad ligaments incised, ureters identified and completely dissected out from the pelvic brim to the uterine artery bilaterally. The infundibulopelvic ligaments were isolated, clamped, cut, and ligated. The bladder was densely involved with disease. We therefore dissected the peritoneum of the bladder off of the bladder itself and then sharply dissected the bladder off the lower uterine segment, cervix, and upper 2 cm of the vagina. The cardinal ligaments were clamped and cut, being palpably free of the ureters, and a circumferential incision was made around the cervix. Because the uterus, fallopian tubes, and ovaries were densely adherent to the sigmoid colon, we were not able to remove the uterus tubes and ovaries at this point. Instead, we entered the rectovaginal space and dissected it down to a point below where the disease was involving the colon. The vagina was closed in the usual fashion. The uterosacral ligaments were unable to be incorporated into the vaginal closure because of the necessity for an en bloc resection. The splenic flexure was mobilized for anastomosis. We then mobilized the attached sigmoid colon upto a point well above the tumor mass and divided the mesentery. We then divided the remaining mesentery and transected the distal bowel. We sized this for a 25 mm stapler, and the anvil was placed witha pursestring. We then gave ICG dye intravenously and checked with a pinpoint camera to confirm excellent blood supply all the way to the anvil. After ascertaining hemostasis in the pelvis, we then performed EEA stapling in the usual manner without difficulty. The staple line was carefully inspected. Three reinforcing sutures were placed between the rectal and sigmoid serosa. Proctoscopy was then perf ormed. The anastomosis was at 14 cm. It was airtight, and there were two rings in the stapler. The abdomen and pelvis were then irrigated with warm normal saline, and hemostasis was assured. The fasciawas closed with looped 0 PDS in a running fashion, and the skin was closed with 3-0 Monocryl in a subcuticular fashion. The patient was transferred to recovery in stable condition. Denisha Oviedo M.D. ER DRIER Op Note - Jacobo Banda M.D. - 05/09/2021 9:35 AM CST Procedures: 1. Rigid cystoscopy 2. 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 ??Cystoscopy revealed normal bladder mucosa with no tumor invasion present.??Right and left ureteral orifices in orthotopic position 2. ??Successful placement of bilateral externalized ureteral stents and a Briceño catheter ?? Complications None Description of Procedure After appropriate patient identification and verification of informed consent, the patient was brought into the OR and placed under general anesthesia. The patient was then prepped and draped in the standard sterile fashion in the dorsal lithotomy position. After surgical pause and confirmation of antibiotic administration, we proceeded with cystoscopy. The bladder was systematically examined, revealing normal bladder mucosa throughout and no evidence of tumor invasion, mucosal abnormality, foreign body or stone. Ureteral orifices were orthotopic in position.??After laterality post, an externalizedureteral stent was advanced into left ureteral orifice to 25cm. ??We then turned our attention to the right side and in similar fashion, a right externalized ureteral stent was advanced into the right ureteral orifice until we met resistance at 25 cm.??The stents were then externalized. A Briceño catheter was placed and inflated with 10cc in the balloon. ??Both externalized stents were independently secured to the Briceño catheter using 0 silk suture. The procdure was then turned over to the primary surgery team. Plan: - stents and Briceño catheter can be removed at the discretion of the primary team post operatively. Jacobo Banda MD ER DRIER Brief Op Note - Che Martinez M.D. 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 Anterior abdominal wall nodules (right). Right and left diaphragm nodules. Small nodule behind spleen. EBL: 500cc UO: 600cc IVFs: 1500cc albumin and 6300 Crystalloids Complications None Che Martinez M.D. ER DRIER documented in this encounter Miscellaneous Notes Result Encounter Note - Che Martinez M.D. - 05/12/2021 4:51 PM VENEER DRIER I have reviewed the final pathology report and the identified diagnosis is consistent with the patient's clinical presentation. ER DRIER Hospital Course - Lynn Armstrong M.D. - 05/10/2021 4:37 PM CST DISCHARGE SUMMARY Admission Date: 05/09/2021 Discharge Date: Discharge Provider: Ivelisse Denyn M.D. Responsible Author(s): Lynn Armstrong M.D. 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 Warner, Susanne G, M.D. Linder, Brian J, M.D. Young, Riley J, M.D. Reyes-Baez, Fiorella E, M.D. Buckarma, Eeeln H, M.D. PROCEDURE DATE: 05/09/2021 TYPE OF PROCEDURE(S): Procedure(s) (LRB): LAPAROTOMY, EXPLORATORY. (N/A) TUMOR DEBULKING. (N/A) HYSTERECTOMY ABDOMINAL, BILATERAL SALPINGO-OOPHORECTOMY. (N/A) OMENTECTOMY. (N/A) WEDGE RESECTION LIVER. (N/A) INTRAOPERATIVE ULTRASOUND LIVER. (N/A) CYSTOSCOPY INSERTION STENT URETER. (Bilateral) SPLENECTOMY (N/A) Proctoscopy (N/A) STRIPPING DIAPHRAGM (Bilateral) LYSIS ADHESIONS (N/A) COLECTOMY LEFT WITH ANASTOMOSIS (N/A) PROCEDURAL COMPLICATIONS: None POSTOPERATIVE COURSE: Mrs. Yang did overall well post-operatively. By POD#3 she was tolerating a diet, her pain was well controlled, she was ambulating, she had return of bowel function and she was voiding spontaneously. Her drain was removed and she was using an abdominal binder as needed. During her stay, she periodically required oxygen supplementation. Given her surgery on the diaphragm, during her stay she had 3chest x-rays that all were normal aside from a small pleural effusion. The pain with inspiration waslikely contributing to her shallow breathes. A muscle relaxant helped with this pain and at time of dismissal she was not requiring oxygen. She was discharged on POD#5 in stable condition after meetingall milestones. Her abdominal distention had improved and she was tolerating a general diet without issue. She was discharged home on Eliquis for VTE prophylaxis. She will see the surgical team in 6 weeks. She will follow up with medical oncology. See below for splenectomy vaccination information - she did receive the first round in the hospital. PATHOLOGY: Recent Results (from the past 168 hour(s)) Surgical Pathology, Frozen Lab Status: None Result Value Participated in the Interpretation Tim Rodrigues M.D. -Pathology Resident Report electronically signed by Sophia Ndiaye M.D. [phone] I verify that I have examined all relevant slides/materials for the specimen(s) and rendered or confirmed the diagnosis. Gross Description A. Received fresh labeled umbilical nodule is a 2.2 x 1.7 x 0.6 cm fragment of red-orosco soft tissue. There is a 0.7 x 0.6 cm nodule identified upon sectioning. All submitted for permanent sections only. Grossed by [facility]. B. Received fresh labeled falciform ligament is a 3.9 x 3.2 x 0.6 cm portion of pink-red fibrofatty tissue. Fish Farmer tissue submitted for permanent sections only. Grossed by [facility]. C. Received fresh labeled omentum is a 42 x 12 x 1 cm portion of omentum. There is a 0.3 x 0.2 x 0.2 cm calcified nodule. Lymph nodes are identified. Fish Farmer tissue submitted for permanent sections only. Grossed by [facility]. D. Received fresh labeled liver wedge segment 4B/3 nodule is a 18 gram, 4.3 x 3.8 x 3.7 cm liver wedge specimen. A single 2.6 x 2.4 x 1.4 cm orosco-white mass is present 0.1 cm from the inked surgical margin. Margin is submitted perpendicularly. Fish Farmer tissue submitted for permanent sections only. Grossed by S . E. Received fresh labeled right diaphragm is a 7.1 x 3.2 x 1.6 cm portion of red-orosco fibrous tissue. At one aspect, there is a 3.6 x 1.7 x 0.6 cm nodule. Additional smaller nodules are identified. Fish Farmer tissue submitted for permanent sections only. Grossed by [facility]. F. Received fresh labeled right anterior abdominal wall is a 3.8 x 2 x 0.5 cm portion of red-pink, peritonealized fibromembranous tissue. A 0.2 cm nodule is present. Fish Farmer tissue submitted for permanent sections only. Grossed by [facility]. G. Received fresh labeled right pelvic gutter is a 2.2 x 1 x 0.2 cm aggregate of red-pink fibromembranous tissue. All submitted for permanent sections only. Grossed by [facility]. H. Received fresh labeled left mid diaphragm is a 2.2 x 1 x 0.2 cm portion of cauterized pink-white fibromembranous tissue. All submitted for permanent sections only. Grossed by [facility]. I. Received fresh labeled spleen is a 238 gram, 14.6 x 8.8 x 4.2 cm s plenectomy specimen. The capsule is smooth and unremarkable. There is a 3 x 1.8 x 1.2 cm nodule. Hilar lymph nodes are not identified. Fish Farmer tissue submitted for permanent sections only. Grossed by [facility]. J. Received fresh labeled right fallopian tube and ovary is a 4.8 gram, 6.8 x 4.9 x 2.6 cm ovary with a 7.7 x 0.8 cm fallopian tube. The ovary has implants and adhesions on the outer surface and a cystic to solid cut surface. Papillary and friable excrescences are identified within the cystic component. The fallopian tube has multiple adhesions and serosal implants. Fish Farmer tissue submitted for permanent sections only. Grossed by [facility]. Silvino. Received fresh labeled uterus, left fallopian tube and ovary is a 150.8 gram uterus with cervix with attached left fallopian tube and ovary. The uterine serosa has serosal implants. The peritoneal reflection is adhesed to the serosal surface of the uterus and outer surface of the left ovary. Hafsa toneal reflection is grossly involved by tumor and involves anterior uterine serosa and possible anterior myometrium. The endometrium has fibrosis of the lower uterine segment resulting in complete stenosis. There are no uterine leiomyomas. There is a 5 x 3.4 x 1.5 cm left ovary with a ragged outer surface, grossly involved by tumor over an area of 1.4 x 1.5 cm ovarian surface (inked in black) and a cystic and solid cut surface. Ovary is grossly involved by tumor, 2 x 1.5 x 3 cm, which extends from ovary surface to tumor nodule of peritoneal reflection. There is a 7.5 x 1 cm left fallopian tube which is unremarkable. Fallopian tube fimbriae are entirely submitted. Separately from the main specimen is submitted an aggregate, 3.5 x 3 x 1.6 cm of soft tissue. Fish Farmer tissue submitted for permanent sections only. Grossed by RAK. Gallegos Received fresh labeled portion of sigmoid colon is a 13.5 cm in length portion of colon. There are serosal tumor imp lants and adhesions. The mucosa is unremarkable. Fish Farmer tissue submitted for permanent sections only. Grossed by EDNA. Block Summary A Umbilical nodule A1 Umbilical nodule 1 A2 Umbilical nodule 2 B Falciform ligament B1 Nodular area 1 B2 Nodular area 2 C Omentum C1 Omental lymph nodes 2 (C1) C2 Omental lymph node 1 (C2) C3 Omental nodule D Liver wedge segment 4B/3 nodule D1 Mass to margin 1 D2 Mass to margin 2 D3 Non-neoplastic liver E Right diaphragm E1 Right diaphragm smaller nodules-1 E2 Right diaphragm large nodule E3 Right diaphragm smaller nodules-2 F Right anterior abdominal wall F1 Right anterior abdominal wall 1 F2 Right anterior abdominal wall 2 G Right pelvic gutter G1 Right pelvic gutter-1 G2 Right pelvic gutter-2 H Left mid diaphragm H1 Left mid diaphragm I Spleen I1 Spleen nodule I2 Uninvolved spleen J Right fallopian tube and ovary J1 Right fallopian tubes J2 Right ovary-1 J3 Right ovary-2 K Uterus, left fallopian tube and ovary K1 Left fallopian tube-1 K2 Left fallopian tube-2 K3 Left ovary and tumor-1 K4 Left ovary and tumo r-2 K5 Tumor, ovary and peritoneal reflection-1 K6 Tumor, ovary and peritoneal reflection-2 K7 Posterior cervix 6:00 K8 Anterior myometrium and peritoneal reflection tumor-1 K9 Anterior myometrium and peritoneal reflection tumor-2 K10 Anterior endomyometrium K11 Posterior endomyometrium L Portion of sigmoid colon L1 Portion of sigmoid colon-1 L2 Portion of sigmoid colon-2 Interpretation FINAL DIAGNOSIS J. 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 See synoptic report. K. 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 Endometrium, cervix and fallopian tube are negative for tumor. A. Soft tissue, umbilical nodule, excision: Metastatic carcinoma. B. Falciform ligament, excision: Negative for tumor. C. Omentum, omentectomy: Metastatic carcinoma measuring up to 0.3 cm. Multiple (2) lymph nodes negative for tumor. D. Liver, segment III/IVB nodule, wedge resection: Metastatic carcinoma forming a 2.6 cm mass involving liver parenchyma. Margin negative for tumor. E. Peritoneum, right diaphragm, excision: Metastatic carcinoma measuring up to 3.6 cm. F. Soft tissue, right anterior abdominal wall, excision: Metastatic carcinoma. G. Pe ritoneum, right pelvic gutter, excision: Metastatic carcinoma. H. Peritoneum, left mid diaphragm, excision: Metastatic carcinoma. I. 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 L. Colon, portion sigmoid, resection: Metastatic carcinoma involving serosal surface. SYNOPTIC REPORT : Ovarian, Fallopian Tube, and Peritoneum Procedure: Total hysterectomy and bilateral salpingo-oophorectomy, omentectomy, peritoneal tumor debulking Specimen Integrity: Right Ovary: Capsule intact Left Ovary: Capsule intact Right Fallopian Tube: Serosa intact Left Fallopian Tube: Serosa intact Tumor Site: Right fallopian tube Tumor Size: 0.2 cm Histologic Type: High grade serous carcinoma Histologic Grade: WHO Grading System: Not applicable Two-Tier Grading System: High grade Ovarian Surface Involvement: Present, bilateral Fallopian Tube Surface Involvement: Present, right Implants: Not applic able Other Tissue/Organs Involvement: Right ovary, left ovary, uterine serosa, pelvic peritoneum, abdominal peritoneum, omentum, liver, spleen, colon serosa Largest Extrapelvic Peritoneal Focus: Macroscopic Specify sites: Diaphragm peritoneum Peritoneal/Ascitic Fluid: Not submitted Chemotherapy Response Score (CRS): 1 Regional Lymph Node Status Not applicable (no regional lymph nodes submitted or found) Distant Metastasis: Splenic parenchyma, liver parenchyma Pathologic Staging (AJCC, 8th edition) TNM Descriptors: y pT Category: pT3c pN Category: Not assigned (no regional nodes submitted) pM Category: pM1b FIGO Stage (2018): IVB The synoptic report incorporates information from all relevant surgical material and includes all required data elements of the current [facility] Cancer Protocol. *Note: Due to a large number of results and/or encounters for the requested time period, some results have not been displayed. A complete set of results can be found in Results Review. CYTOLOGY: Order Name Source Comment Collection Info Order Time TYPE AND SCREEN Blood, Venous Draw in preop morning of surgery 05/09/2021 7:00 AM ABG W/COOX Blood, Arterial Line 05/09/2021 12:59 PM CALCIUM, IONIZED, S/B Blood, Arterial Line 05/09/2021 12:59 PM SODIUM, B Blood, Arterial Line 05/09/2021 12:59 PM POTASSIUM, B Blood, Arterial Line 05/09/2021 12:59 PM GLUCOSE, WHOLE BLOOD Blood, Arterial Line 05/09/2021 12:59 PM ABG W/COOX Blood, Arterial Line 05/09/2021 3:18 PM CALCIUM, IONIZED, S/B Blood, Arterial Line 05/09/2021 3:18 PM SODIUM, B Blood, Arterial Line 05/09/2021 3:18 PM POTASSIUM, B Blood, Arterial Line 05/09/2021 3:18 PM GLUCOSE, WHOLE BLOOD Blood, Arterial Line 05/09/2021 3:18 PM CBC WITHOUT DIFFERENTIAL, B Blood, Venous 05/09/2021 6:40 PM COMPREHENSIVE METABOLIC PANEL, S/P Blood, Venous 05/09/2021 6:40 PM SURGICAL PATHOLOGY, [facility] Umbilicus Collected By: Denisha Oviedo M.D. 05/09/2021 10:04 AM Collection Date 05/09/2021 Collection Time 10:04 AM DISMISSAL LABS: Hemoglobin: Lab Results Component Value Date HGB 8.4 (L) 05/11/2021 Creatinine: Lab Results Component Value Date CREATININE 0.81 05/12/2021 PAIN MEDICATIONS: Take your pain medications as instructed. It is best to take pain medications before your pain becomes severe. This will allow you to take less medication yet have better pain relief. For the first 2 or 3 days it may be helpful to take your pain medications on a regular schedule (e.g. every 4 to 6 hours). This will help you to keep your pain under better control. You should then begin to take fewer medications each day until you no longer need them. Do not take pain medication on an empty stomach. This may lead to nausea and vomiting. LIFTING: No lifting greater than 15 pounds for six weeks. PELVIC REST: No douching, tampons, or intercourse for 6 weeks. If prescribed, vaginal estrogen creammay be used during the postoperative period. DRIVING: No driving while on narcotics. Driving may be resumed initially with a competent passenger one to two weeks after surgery if no longer taking narcotics. EXERCISE: For six weeks your exercise should be limited to walking. You may walk as far as you wish,as long as you increase your level of exertion gradually and avoid slippery surfaces. You may climb stairs as needed to get around, but should not use stair climbing for exercise. VAGINAL DISCHARGE: You may develop a vaginal discharge and intermittent vaginal spotting after surgery and up to 6 weeks postoperatively. The discharge may have an odor and may change in color but it is normal. This is due to dissolving stitches. Contact your surgical team if you develop vaginal or vulvar irritation along with a discharge. Also contact your surgical team if you have vaginal dischargethat smells like urine or stool. WOUND CARE: If you have a band-aid or bandage on your wound, you may remove it the day after dismissal. You may wash the wound with mild soap and water. You may shower at any time but should avoid immersing any abdominal incisions in water for at least two weeks after surgery or until the wound is completely healed. If given, please shower with Hibiclens soap until bottle is completely finished. Keepyour wound clean and dry. You should observe your incision for signs of infection which include redness, warmth, drainage or fever. DIET: Continue no raw fruits or vegetables diet for 4 weeks ACTIVE ISSUES REQUIRING FOLLOW UP You will be contacted by the primary team once the final pathology has resulted. At this time, the team may discuss recommendations for next steps of care. You will need to have a 6 week postoperative visit for evaluation of your incision including a pelvic exam. If scheduled at [facility] then appointment desk will contact you to arrange this appointment. This appointment can also be done locally if you prefer and you will have to contact your local provider to schedule this appointment. Please continue the anticoagulation medication as prescribed until you are 28 days post surgery. Consultation visits with Medical Oncology have been ordered. Please contact our schedulers to schedule these appointments at your convenience. SPLENECTOMY VACCINATIONS After your splenectomy you are at risk for certain infections and require specialized vaccinations based on your vaccination history. 1. H. influenza B (THIS IS NOT THE FLU SHOT) - Received in the hospital 2. Pneumococcal Primary Vaccination --- 1 dose of Pneumococcal conjugate vaccine, 13-valent (PCV13) - received in the hospital --- followed by 1 dose of Pneumococcal conjugate vaccine, 23-valent (PPSV23) ?8 weeks later. Revaccination --- Repeat 1 dose of PPSV23 5 years after the last dose of pneumococcal vaccine; repeat 1 final dose after age 65 years (as long as it has been at least 5 years since the last PPSV23 dose) 3. Meningococcal vaccines Primary Vaccination --- 2 doses of Meningococcal 4-valent conjugate (MenACWY) given 8 weeks apart. * you received the first dose in the hospital In patients who are receiving PCV13 simultaneously or have received PCV13 within the previous 4 weeks, Menveo (MenACWY-CRM) is recommended over Menactra (MenACWY-D). AND --- 2 doses of Meningoccocal B (MenB-4C) given 1 month apart * you received the first dose in the hospital Revaccination --- Give a single booster 12 months after completion of primary series. The booster must be the same brand as the primary series. If initial brand is unknown or unavailable, repeat the primary series. --- Give a single booster every 2 to 3 years thereafter. It is also important to have your annual flu vaccine ER [facility]ER documented in this encounter Plan of Treatment Upcoming Encounters Date Type Specialty Care Team Description 04/11/2022 Clinical Communication Admitting/Central Scheduling 04/13/2022 Appointment Laboratory Medicine Debbie Ivey M.D. [address] [place] [phone] 04/13/2022 Office Visit Oncology Walter Barnhart M.D., Ph.D. [address] [place] [phone] Scheduled Referrals Name Type Priority Associated Order Schedule Diagnoses General Surgery Post Outpatient Referral Routine Expected: Op (clinic) 08/08/2021 (Approximate), Expires: 08/08/2022 Obstetrics and Outpatient Referral Routine Expect ed: Gynecology Post Op (clinic) (Approximate), Expires: 05/12/2024 documented as of this encounter Procedures Procedure Name Priority Date/Time Associated Comments Diagnosis DX CHEST PORTABLE 1 RAD - Semiurgent 05/12/2021 8:50 R esults for VIEW (Fast; most ED AM [facility] this procedur e patients; some are in the inpatients) results section. BASIC METABOLIC Routine 05/12/2021 12:35 Results for PANEL, S/P AM [facility] this procedure are in the results section. CBC WITHOUT Routine 05/11/2021 12:15 Results for DIFFERENTIAL, B AM [facility] this procedu re are in the results section. BASIC METABOLIC Routine 05/11/2021 12:15 Results for PANEL, S/P AM [facility] this procedure are in the results section. DX CHEST AP OR PA RAD - Semiurgent 05/10/2021 10:41 Re sults for AND LATERAL 2 VIEWS (Fast; most ED PM [facility] this p rocedure patients; some are in the inpatients) results section. POTASSIUM, S/P Timed 05/10/2021 4:42 Results fo r AM [facility] this procedure are in the results section. CBC WITHOUT Routine 05/10/2021 1:19 Results for DIFFERENTIAL, B AM [facility] this procedu re are in the results section. COMPREHENSIVE Routine 05/10/2021 1:19 Results for METABOLIC PANEL, S/P AM [facility] this pr ocedure are in the results section. DX ABDOMEN 1 VIEW RAD - Routine 05/09/2021 5:14 Result s for (most inpatients PM [facility]ENE[facility] this proced ure and all are in the outpatients) results section. ADULT OXYGEN THERAPY Routine 05/09/2021 5:10 PM [facility] PATIENT STATUS STAT 05/09/2021 3:39 Results fo r PM [facility] this procedure are in the results section. SODIUM, B STAT 05/09/2021 3:39 Results for PM [facility] this procedure are in the results section. ABG W/COOX STAT 05/09/2021 3:39 Results for PM [facility] this procedure are in the results section. POTASSIUM, B STAT 05/09/2021 3:39 Results for PM [facility] this procedure are in the results section. GLUCOSE, WHOLE BLOOD STAT 05/09/2021 3:39 Resu lts for PM [facility] this procedure are in the results section. CALCIUM, IONIZED, STAT 05/09/2021 3:39 Results for S/B PM [facility] this procedure are in the results section. PATIENT STATUS STAT 05/09/2021 1:01 Results fo r PM [facility] this procedure are in the results section. SODIUM, B STAT 05/09/2021 1:01 Results for PM [facility] this procedure are in the results section. ABG W/COOX STAT 05/09/2021 1:01 Results for PM [facility] this procedure are in the results section. POTASSIUM, B STAT 05/09/2021 1:01 Results for PM [facility] this procedure are in the results section. GLUCOSE, WHOLE BLOOD STAT 05/09/2021 1:01 Resu lts for PM [facility] this procedure are in the results section. CALCIUM, IONIZED, STAT 05/09/2021 1:01 Results for S/B PM [facility] this procedure are in the results section. SURGICAL PATHOLOGY, Routine 05/09/2021 10:04 Malignant Resu lts for [facility] AM [facility] Neoplasm Of Ovary this proce dure Laterality are in the Unknown (HCC) results section. COLECTOMY LEFT WITH 05/09/2021 8:11 Malignant ANASTOMOSIS AM [facility] Neoplasm Of Ovary Laterality Unknown (HCC) EXPLORATION 05/09/2021 8:11 Malignant ABDOMINAL - LYSIS AM [facility] Neoplasm Of Ovary ADHESIONS Laterality Unknown (HCC) STRIPPING DIAPHRAGM 05/09/2021 8:11 Malignant AM [facility] Neoplasm Of Ovary Laterality Unknown (HCC) OTHER 05/09/2021 8:11 Malignant AM [facility] Neoplasm Of Ovary Laterality Unknown (HCC) SPLENECTOMY 05/09/2021 8:11 Malignant AM [facility] Neoplasm Of Ovary Laterality Unknown (HCC) CYSTOSCOPY INSERTION 05/09/2021 8:11 Malignant STENT URETER AM [facility] Neoplasm Of Ovary Laterality Unknown (HCC) ULTRASOUND LIVER 05/09/2021 8:11 Malignant AM [facility] Neoplasm Of Ovary Laterality Unknown (HCC) WEDGE RESECTION 05/09/2021 8:11 Malignant LIVER AM [facility] Neoplasm Of Ovary Laterality Unknown (HCC) OMENTECTOMY 05/09/2021 8:11 Malignant AM [facility] Neoplasm Of Ovary Laterality Unknown (HCC) HYSTERECTOMY 05/09/2021 8:11 Malignant ABDOMINAL WITH AM [facility] Neoplasm Of Ovary SALPINGO - Laterality OOPHORECTOMY Unknown (HCC) DEBULKING TUMOR 05/09/2021 8:11 Malignant OVARY AM [facility] Neoplasm Of Ovary Laterality Unknown (HCC) LAPAROTOMY - 05/09/2021 8:11 Malignant EXPLORATORY AM [facility] Neoplasm Of Ovary Laterality Unknown (HCC) TYPE AND SCREEN Routine 05/09/2021 7:29 Results f or AM [facility] this procedure are in the results section. documented in this encounter Results DX Chest Portable 1 View (05/12/2021 8:50 AM [facility]) Anatomical Region Laterality Modality Chest, Thoracic RST LOS, Thoracic ARZ LOS, Thoracic N/A Digital Radiography FLA LOS Specimen (Source) Anatomical Collection Method Collection Time Re ceived Time Location / / Volume Laterality 05/12/2021 8:51 AM [facility] Impressions 05/12/2021 8:52 AM [facility] No change since 05/10/2021, given differences of technique. Bilateral pleural effusions, greater on the right, layering posteriorly. Stable borderline cardiomegaly, also is accentu ated by technique. Atelectasis or consolidation in both bases. No pneumoth orax. Narrative 05/12/2021 8:52 AM [facility] EXAM: ??DX CHEST PORTABLE 1 VIEW Procedure Note Jacobo Rasmussen M.D. - 05/12/2021Fo rmatting of this note might be different from the original. EXAM: DX CHEST PORTABLE 1 VIEW IMPRESSION: No change since 05/10/2021, given differ ences of technique. Bilateral pleural effusions, greater on the right, layering posteriorly. Stable borderline cardiomegaly, also is accentu ated by technique. Atelectasis or consolidation in both bases. No pneumoth orax. Ruben Rod M.D. IMG DIAGNOSTIC IMAGING PROCE DURES (ABNORMAL) Basic Metabolic Panel (05/12/2021 12:35 AM [facility]) P athologist Signature Potassium, S 4.7 3.6 - 5.2 05/12/2021 DTL mmol/L 1:20 AM [facility] Sodium, S 140 135 - 145 05/12/2021 DTL mmol/L 1:20 AM [facility] Chloride, S 105 98 - 107 05/12/2021 DTL mmol/L 1:20 AM [facility] Bicarbonate, S 29 22 - 29 05/12/2021 DTL mmol/L 1:20 AM [facility] Anion Gap 6 (L) 7 - 15 05/12/2021 DTL 1:20 AM [facility] BUN (Blood Urea 12 6 - 21 05/12/2021 DTL Nitrogen), S mg/dL 1:20 AM [facility] Creatinine 0.81 0.59 - 05/12/2021 DTL 1.04 mg/dL 1:20 AM [facility] eGFR-Non 88 >=60 05/12/2021 DTL Black/ mL/min/BSA 1:20 AM [facility] [place] Comment: ----ADDITIONAL INFORMATION---- Estimated GFR calculated using the 2009 CKD_EPI creatinine equation. eGFR-Black/ >90 >=60 mL/min/BSA 2020 1:20 AM [facility] DTL Comment: ----ADDITIONAL INFORMATION---- Estimated GFR calculated using the 2009 CKD_EPI creatinine equation. Calcium, Total, S 8.4 (L) 8.6 - 10.0 mg/dL 05/12/2021 1:20 AM [facility] DTL Glucose, S 93 70 - 140 mg/dL 05/12/2021 1:20 AM [facility] D TL Specimen Anatomical Collection Method Collection Time Receive d Time (Source) Location / / Volume Laterality Blood (Blood, 05/12/2021 12:35 05/12/2021 1:04 Venous) AM [facility] AM [facility] Ruben Rod M.D. LAB BLOOD ADD-ON Performing Organization Address City/State/ZIP Code Phon e Number [facility] - [address] [place], [place] [address] [facility] [place] [address] [facility] [address] [facility] (ABNORMAL) Basic Metabolic Panel (05/11/2021 12:15 AM [facility]) P athologist Signature Potassium, S 4.8 3.6 - 5.2 05/11/2021 DTL mmol/L 1:01 AM [facility] Sodium, S 140 135 - 145 05/11/2021 DTL mmol/L 1:01 AM [facility] Chloride, S 103 98 - 107 05/11/2021 DTL mmol/L 1:01 AM [facility] Bicarbonate, S 30 (H) 22 - 29 05/11/2021 DTL mmol/L 1:01 AM [facility] Anion Gap 7 7 - 15 05/11/2021 DTL 1:01 AM [facility] BUN (Blood Urea 13 6 - 21 05/11/2021 DTL Nitrogen), S mg/dL 1:01 AM [facility] Creatinine 0.87 0.59 - 05/11/2021 DTL 1.04 mg/dL 1:01 AM [facility] eGFR-Non 81 >=60 05/11/2021 DTL Black/ mL/min/BSA 1:01 AM [facility] [place] Comment: ----ADDITIONAL INFORMATION---- Estimated GFR calculated using the 2009 CKD_EPI creatinine equation. eGFR-Black/ >90 >=60 mL/min/BSA 2020 1:01 AM [facility] DTL Comment: ----ADDITIONAL INFORMATION---- Estimated GFR calculated using the 2009 CKD_EPI creatinine equation. Calcium, Total, S 8.7 8.6 - 10.0 mg/dL 05/11/2021 1:01 AM [facility] DTL Glucose, S 99 70 - 140 mg/dL 05/11/2021 1:01 AM [facility] D TL Specimen Anatomical Collection Method Collection Time Receive d Time (Source) Location / / Volume Laterality Blood (Blood, 05/11/2021 12:15 05/11/2021 Venous) AM [facility] 12:46 AM [facility] Ruben Rod M.D. LAB BLOOD ADD-ON Performing Organization Address City/[facility] Code Phon e Number [facility] - [address] (ABNORMAL) CBC without Differential (05/11/2021 12:15 AM [facility]) [facility] gist Method Time Signature Hemoglobin 8.4 (L) 11.6 - 05/11/2021 DTL 15.0 g/dL 1:30 AM [facility] Hematocrit 25.9 (L) 35.5 - 05/11/2021 DTL 44.9 % 1:30 AM [facility] Erythrocytes 2.75 (L) 3.92 - 05/11/2021 DTL 5.13 1:30 AM [facility] x10(12)/L MCV 94.2 78.2 - 05/11/2021 DTL 97.9 fL 1:30 AM [facility] RBC Distrib Width 18.0 (H) 12.2 - 05/11/2021 DTL 16.1 % 1:30 AM [facility] Platelet Count 281 157 - 371 05/11/2021 DTL x10(9)/L 1:30 AM [facility] Leukocytes 11.9 (H) 3.4 - 9.6 05/11/2021 DTL x10(9)/L 1:30 AM [facility] Specimen Anatomical Collection Method Collection Time Receive d Time (Source) Location / / Volume Laterality Blood (Blood, 05/11/2021 12:15 05/11/2021 Venous) AM [facility] 12:29 AM [facility] Ruben Rod M.D. LAB BLOOD ADD-ON Performing Organization Address City/[facility] Code Phon e Number [facility] - [address] [place] [address] DX Chest AP or PA and Lateral 2 Views (05/10/2021 10:41 PM [facility]) Anatomical Region Laterality Modality Chest, Thoracic RST LOS, Thoracic ARZ LOS, Thoracic N/A Digital Radiography FLA LOS Specimen (Source) Anatomical Collection Method Collection Time Re ceived Time Location / / Volume Laterality 05/10/2021 10:42 PM [facility] Impressions 05/11/2021 8:59 AM [facility] Small bilateral pleural effusions. Bilateral lower lung airspace opacities. Low lung volumes. Abdominal d rain. Narrative 05/11/2021 8:59 AM [facility] EXAM: ??DX CHEST AP OR PA AND LATERAL 2 VIEWS Procedure Note Andrew Hansen M.D. - 05/11/2021For matting of this note might be different from the original. EXAM: DX CHEST AP OR PA AND LATERAL 2 EWS IMPRESSION: Small bilateral pleural effusions. Bilat eral lower lung airspace opacities. Low lung volumes. Abdominal d rain. Sussy Albert M.D. IMG DIAGNOSTIC IMAGING PROCE DURES Potassium (05/10/2021 4:42 AM [facility]) athologist Signature Potassium, S 4.8 3.6 - 5.2 05/10/2021 DTL mmol/L 5:48 AM [facility] Specimen Anatomical Collection Method Collection Time Receive d Time (Source) Location / / Volume Laterality Blood (Blood, 05/10/2021 4:42 AM 05/10/20 5:39 Venous) [facility] AM [facility] Sussy Albert M.D. LAB BLOOD ADD-ON Performing Organization Address City/State/ZIP Code Phon e Number [facility] - [address] [place], [place] [address] [place] [place] [address] [facility] [address] [facility] (ABNORMAL) Comprehensive Metabolic Panel (05/10/2021 1:19 AM [facility]) athologist Signature Potassium, S 5.4 (H) 3.6 - 5.2 05/10/2021 DTL mmol/L 1:58 AM [facility] Sodium, S 137 135 - 145 05/10/2021 DTL mmol/L 1:58 AM [facility] Chloride, S 103 98 - 107 05/10/2021 DTL mmol/L 1:58 AM [facility] Bicarbonate, S 22 22 - 29 05/10/2021 DTL mmol/L 1:58 AM [facility] Anion Gap 12 7 - 15 05/10/2021 DTL 1:58 AM [facility] BUN (Blood Urea 14 6 - 21 05/10/2021 DTL Nitrogen), S mg/dL 1:58 AM [facility] Creatinine 0.76 0.59 - 05/10/2021 DTL 1.04 mg/dL 1:58 AM [facility] eGFR-Non >90 >=60 05/10/2021 DTL Black/ mL/min/BSA 1:58 AM [facility] [place] Comment: ----ADDITIONAL INFORMATION---- Estimated GFR calculated using the 2009 CKD_EPI creatinine equation. eGFR-Black/ >90 >=60 mL/min/BSA 2020 1:58 AM [facility] DTL Comment: ----ADDITIONAL INFORMATION---- Estimated GFR calculated using the 2009 CKD_EPI creatinine equation. Calcium, Total, S 8.5 (L) 8.6 - 10.0 mg/dL 05/10/2021 1:58 AM [facility] DTL Glucose, S 126 70 - 140 mg/dL 05/10/2021 1:58 AM VENEER DRIER D TL Protein, Total, S 5.7 (L) 6.3 - 7.9 g/dL 05/10/2021 1:58 A M [facility]ENEER [facility]RIER DTL Albumin, S 4.2 3.5 - 5.0 g/dL 05/10/2021 1:58 AM VENEER DRIER D TL Aspartate Aminotransferase 598 (H) 8 - 43 U/L 05/10/2021 1 :58 AM VENEER DRIER DTL (AST), S Alkaline Phosphatase, S 49 35 - 104 U/L 05/10/2021 1: 58 AM [facility]ENEER DRIER DTL Alanine Aminotransferase 297 (H) 7 - 45 U/L 05/10/2021 1:5 8 AM VENEER DRIER DTL (ALT), S Bilirubin, Total, S 1.0 <=1.2 mg/dL 05/10/2021 1:58 AM VENEER [facility]RIER DTL Specimen Anatomical Collection Method Collection Time Receive d Time (Source) Location / / Volume Laterality Blood (Blood, 05/10/2021 1:19 AM 05/10/20 1:27 Venous) VENEER DRIER AM [facility]ER DRIER Che Martinez M.D. LAB BLOOD ADD-ON Performing Organization Address City/State/ZIP Code Phon e Number [facility] - [address] [place], [place] [address] [place] [address] Laboratories-[facility] [address] (ABNORMAL) CBC without Differential (05/10/2021 1:19 AM VENEER DRIER) [facility] gist Method Time Signature Hemoglobin 9.6 (L) 11.6 - 05/10/2021 DHPM 15.0 g/dL 1:58 AM [facility]ER DRIER Hematocrit 29.5 (L) 35.5 - 05/10/2021 DHPM 44.9 % 1:58 AM [facility]RIER Erythrocytes 3.15 (L) 3.92 - 05/10/2021 DHPM 5.13 1:58 AM VENEER DRIER x10(12)/L MCV 93.7 78.2 - 05/10/2021 DHPM 97.9 fL 1:58 AM [facility]RIER RBC Distrib Width 17.5 (H) 12.2 - 05/10/2021 DHPM 16.1 % 1:58 AM [facility]ER Platelet Count 270 157 - 371 05/10/2021 DHPM x10(9)/L 1:58 AM [facility]RIER Leukocytes 13.5 (H) 3.4 - 9.6 05/10/2021 DHPM x10(9)/L 1:58 AM [facility]RIER Specimen Anatomical Collection Method Collection Time Receive d Time (Source) Location / / Volume Laterality Blood (Blood, 05/10/2021 1:19 AM 05/10/20 1:27 Venous) VENEER DRIER AM VENEER DRIER Che Martinez M.D. LAB BLOOD ADD-ON Performing Organization Address City/State/ZIP Code Phon e Number [facility] - [address] [place] [address] [place] [address] Laboratories-[address] DX Abdomen 1 View (05/09/2021 5:14 PM VENEER DRIER) Anatomical Region Laterality Modality Abdomen, Abdominal RST LOS, Abdominal ARZ LOS, N/A Computed Radiography Abdominal FLA LOS Specimen (Source) Anatomical Collection Method Collection Time Re ceived Time Location / / Volume Laterality 05/09/2021 5:16 PM [facility]ER [facility]ER Impressions 05/09/2021 5:34 PM [facility]ER DRIER Examination negative for postoperative purposes. Surgical changes in the pelvis. Expected postoperative pn eumoperitoneum. Grossly unremarkable imaged lung bases. Elevated right hemidi aphragm. Narrative 05/09/2021 5:34 PM [facility]ENEER DRIER EXAM: ??DX ABDOMEN 1 VIEW Procedure Note Aden Blanco D.O. - 05/09/2021 EXAM: DX ABDOMEN 1 VIEW IMPRESSION: Examination negative for postoperative p urposes. Surgical changes in the pelvis. Expected postoperative pn eumoperitoneum. Grossly unremarkable imaged lung bases. Elevated right hemidi aphragm. Denisha Oviedo M.D. IMG DIAGNOSTIC IMAGING PROCE SAWTHI Patient Status (05/09/2021 3:39 PM VENEER DRIER) athologist Signature Temperature 36.2 37.0 deg C 05/09/2021 METH 3:40 PM [facility]ENEER DRIER FIO2 0.34 0.21=AIR 05/09/2021 METH 3:40 PM [facility]ER DRIER Specimen Anatomical Collection Method Collection Time Receive d Time (Source) Location / / Volume Laterality Blood 05/09/2021 3:39 PM 3:39 VENEER DRIER PM [facility]RIER Abbey Kelly APRN, CRNA LAB BLOOD NON ADD-ON Performing Organization Address City/[facility]/ZIP Code Phon e Number [facility] - [address] [place] [address] [address] [facility] (ABNORMAL) Glucose, Whole Blood (05/09/2021 3:39 PM VENEER DRIER) athologist [facility] Glucose 174 (H) 70 - 140 05/09/2021 METH mg/dL 3:43 PM [facility]RIER Specimen Anatomical Collection Method Collection Time Receive d Time (Source) Location / / Volume Laterality Blood (Blood, 05/09/2021 3:39 PM 05/09/20 3:39 Arterial Line) VENEER DRIER PM [facility]ER Harrison Aguilra M.D. LAB BLOOD TROPONIN Performing Organization Address City/[facility] Phon e Number [facility] - [address] Potassium, Blood (05/09/2021 3:39 PM VENEER DRIER) athologist Signature Potassium, B 3.8 3.6 - 5.2 05/09/2021 METH mmol/L 3:43 PM [facility]ER DRIER Specimen Anatomical Collection Method Collection Time Receive d Time (Source) Location / / Volume Laterality Blood (Blood, 05/09/2021 3:39 PM 05/09/20 3:39 Arterial Line) VENEER DRIER PM [facility]ER DRIER Harrison Aguilar M.D. LAB BLOOD NON ADD-ON Performing Organization Address City/[facility]/ZIP Code Phon e Number [facility] - [address] [place], [place] [address] [place] [address] Sodium, B (05/09/2021 3:39 PM VENEER DRIER) athologist Signature Sodium, B 140 135 - 145 05/09/2021 3:43 METH mmol/L PM [facility]ER DRIER Specimen Anatomical Collection Method Collection Time Receive d Time (Source) Location / / Volume Laterality Blood (Blood, 05/09/2021 3:39 PM 05/09/20 3:39 Arterial Line) VENEER DRIER PM [facility]ER [facility]RIER Harrison Aguilar M.D. LAB BLOOD NON ADD-ON Performing Organization Address City/[facility]/ZIP Code Phon e Number [facility] - [address] [place], [place] [address] [place] [address] [facility] [address] [facility] (ABNORMAL) Calcium, Ionized (05/09/2021 3:39 PM VENEER DRIER) athologist Signature Calcium, 4.51 (L) 4.65 - 05/09/2021 METH Ionized, B 5.30 mg/dL 3:43 PM [facility]RIER Specimen Anatomical Collection Method Collection Time Receive d Time (Source) Location / / Volume Laterality Blood (Blood, 05/09/2021 3:39 PM 05/09/20 3:39 Arterial Line) [facility]ER [facility]RIER PM [facility]RIER Harrison Aguilar M.D. LAB BLOOD NON ADD-ON Performing Organization Address City/[facility]/ZIP Code Phon e Number [facility] - [address] [place], [place] [address] [place] [address] [place] [address] [facility] (ABNORMAL) Blood Gas with Coox, Arterial (05/09/2021 3:39 PM VENEER DRIER) athologist Signature pO2 222 (H) 83 - 108 05/09/2021 METH mm Hg 3:43 PM [facility]ENEER DRIER pCO2 40 32 - 45 mm 05/09/2021 M[facility] Hg 3:43 PM [facility]RIER pH 7.40 7.35 - 05/09/2021 METH 7.45 pH 3:43 PM [facility]ER DRIER Base Excess -1 -2 - 3 05/09/2021 METH mmol/L 3:43 PM [facility]RIER HCO3 25 22 - 26 05/09/2021 M[facility] mmol/L 3:43 PM [facility] DRIER Hemoglobin, B 8.1 (L) 11.6 - 05/09/2021 M[facility] 15.0 g/dL 3:43 PM [facility]RIER O2Hb 98.3 (H) 94.0 - 05/09/2021 METH 98.0 % 3:43 PM [facility]ER COHb 1.4 <3.0 % 05/09/2021 M[facility] 3:43 PM [facility]RIER MetHb <1.0 <1.5 % 05/09/2021 METH 3:43 PM [facility]ER DRIER CtO2 11.7 (L) 18.0 - 05/09/2021 METH 21.0 vol % 3:43 PM [facility]RIER Specimen Anatomical Collection Method Collection Time Receive d Time (Source) Location / / Volume Laterality Blood (Blood, 05/09/2021 3:39 PM 05/09/20 21 3:39 Arterial Line) VENEER DRIER PM [facility]RIER Harrison Aguilar M.D. LAB BLOOD NON ADD-ON Performing Organization Address City/[facility]/ZIP Code Phon e Number [facility] - [address] [place], [place] [address] [place] [place] [address] Laboratories-[facility] [address] [facility] Patient Status (05/09/2021 1:01 PM VENEER DRIER) athologist Signature Temperature 35.7 37.0 deg C 05/09/2021 METH 1:01 PM [facility]RIER FIO2 0.40 0.21=AIR 05/09/2021 METH 1:01 PM [facility]RIER Specimen Anatomical Collection Method Collection Time Receive d Time (Source) Location / / Volume Laterality Blood 05/09/2021 1:01 PM 1:01 [facility]RIER PM [facility] DRIER Abbey Kelly STORY WRITER, BELL CLERK LAB BLOOD NON ADD-ON Performing Organization Address City/State/ZIP Code Phon e Number [facility] - [address] [place], [place] [address] [place] [address] [facility] [address] (ABNORMAL) Glucose, Whole Blood (05/09/2021 1:01 PM VENEER DRIER) athologist Signature Glucose 185 (H) 70 - 140 05/09/2021 METH mg/dL 1:08 PM [facility] DRIER Specimen Anatomical Collection Method Collection Time Receive d Time (Source) Location / / Volume Laterality Blood (Blood, 05/09/2021 1:01 PM 05/09/20 1:01 Arterial Line) [facility]ER DRIER PM [facility] DRIER Harrison Aguilar M.D. LAB BLOOD TROPONIN Performing Organization Address City/[facility] Phon e Number [facility] - [address] [place], [place] [address] [place] [address] [facility] [address] [facility] Potassium, Blood (05/09/2021 1:01 PM VENEER DRIER) athologist Signature Potassium, B 3.6 3.6 - 5.2 05/09/2021 METH mmol/L 1:08 PM [facility]RIER Specimen Anatomical Collection Method Collection Time Receive d Time (Source) Location / / Volume Laterality Blood (Blood, 05/09/2021 1:01 PM 05/09/20 1:01 Arterial Line) [facility]ER DRIER PM [facility] DRIER Harrison Aguilar M.D. LAB BLOOD NON ADD-ON Performing Organization Address City/[facility]/ZIP [facility] Phon e Number [facility] - [address] [place], [place] [address] [place] [address] [facility] [address] [facility] Sodium, B (05/09/2021 1:01 PM VENEER DRIER) athologist Signature Sodium, B 140 135 - 145 05/09/2021 1:08 METH mmol/L PM [facility]ER [facility]RIER Specimen Anatomical Collection Method Collection Time Receive d Time (Source) Location / / Volume Laterality Blood (Blood, 05/09/2021 1:01 PM 05/09/20 1:01 Arterial Line) [facility]ER DRIER PM [facility]ER DRIER Harrison Aguilar M.D. LAB BLOOD NON ADD-ON Performing Organization Address City/State/ZIP Code Phon e Number [facility] - [address] [place], [place] [address] [place] [address] Laboratories-[address] (ABNORMAL) Calcium, Ionized (05/09/2021 1:01 PM VENEER DRIER) athologist Signature Calcium, 4.52 (L) 4.65 - 05/09/2021 M[facility] Ionized, B 5.30 mg/dL 1:08 PM [facility]ER [facility]RIER Specimen Anatomical Collection Method Collection Time Receive d Time (Source) Location / / Volume Laterality Blood (Blood, 05/09/2021 1:01 PM 05/09/20 1:01 Arterial Line) [facility]ER DRIER PM [facility]ER DRIER Harrison Aguilar M.D. LAB BLOOD NON ADD-ON Performing Organization Address City/[facility] Phon e Number [facility] - [address] [place], [place] [address] [place] [address] [facility]-[address] (ABNORMAL) Blood Gas with Coox, Arterial (05/09/2021 1:01 PM VENEER DRIER) P athologist Signature pO2 213 (H) 83 - 108 05/09/2021 METH mm Hg 1:08 PM [facility]ER DRIER pCO2 38 32 - 45 mm 05/09/2021 M[facility] Hg 1:08 PM [facility]RIER pH 7.41 7.35 - 05/09/2021 M[facility] 7.45 pH 1:08 PM [facility]ER DRIER Base Excess -1 -2 - 3 05/09/2021 M[facility] mmol/L 1:08 PM [facility]ER [facility]RIER HCO3 24 22 - 26 05/09/2021 M[facility] mmol/L 1:08 PM [facility] DRIER Hemoglobin, B 9.2 (L) 11.6 - 05/09/2021 METH 15.0 g/dL 1:08 PM [facility]ER DRIER O2Hb 99.7 (H) 94.0 - 05/09/2021 METH 98.0 % 1:08 PM [facility] DRIER COHb 1.1 <3.0 % 05/09/2021 M[facility] 1:08 PM [facility]ER DRIER MetHb <1.0 <1.5 % 05/09/2021 M[facility] 1:08 PM [facility] DRIER CtO2 13.4 (L) 18.0 - 05/09/2021 METH 21.0 vol % 1:08 PM [facility] DRIER Specimen Anatomical Collection Method Collection Time Receive d Time (Source) Location / / Volume Laterality Blood (Blood, 05/09/2021 1:01 PM 05/09/20 1:01 Arterial Line) VENEER DRIER PM [facility]ER DRIER Harrison Aguilar M.D. LAB BLOOD NON ADD-ON Performing Organization Address City/State/ZIP Code Phon e Number [facility] - [address] [place], [place] [address] [place] [address] [facility] [address] Surgical Pathology, Frozen Lab (05/09/2021 10:04 AM VENEER DRIER) Component Value Ref Test Analysis Performed Pathologis t Range Method Time At Signature 05/11/2021 METH 2:48 PM [facility]ENEER DRIER Participated in Tim Rodrigues M.D. 05/11/2021 METH the -Pathology 2:48 PM Interpretation Resident VENEER DRIER Report Sophia Ndiaye M.D. [phone] 05/11/2021 MET H electronically 2:48 PM signed by VENEER DRIER I verify that I have examined all relevant slides/materials for the specimen(s) and rendered or confirmed the diagnosis. Gross Description A. ??Received fresh labeled umbilical nodule is a 2.2 x 05/11/2021 METH 1.7 2:48 PM x 0.6 cm fragment of red-orosco soft tissue. ??There is a 0.7 x VENEER DRIER 0.6 cm nodule identified upon sectioning. ??All submitted for permanent sections only. ??Grossed by PDH. B. ??Received fresh labeled falciform ligament is a 3.9 x 3.2 x 0.6 cm portion of pink-red fibrofatty tissue. Fish Farmer tissue submitted for permanent sections only. Grossed by PDH. C. ??Received fresh labeled omentum is a 42 x 12 x 1 cm portion of omentum. ??There is a 0.3 x 0.2 x 0.2 cm calcified nodule. ??Lymph nodes are identified. ??Fish Farmer tissu e submitted for permanent sections only. ??Grossed by RAL. D. ??Received fresh labeled liver wedge segment 4B/3 nodule is a 18 gram, 4.3 x 3.8 x 3.7 cm liver wedge specimen. ??A single 2.6 x 2.4 x 1.4 cm orosco-white mass is present 0.1 cm from the inked surgical margin. ??Margin is submitted perpendicularly. ??Fish Farmer tissue submitted for permanent sections only. ??Grossed by DJS. Box. ??Received fresh labeled right diaphragm is a 7.1 x 3.2 x 1.6 cm portion of red-orosco fibrous tissue. ??At one aspect, there is a 3.6 x 1.7 x 0.6 cm nodule. ??Additional smaller nodules are identified. ??Fish Farmer tissue submitted for permanent sections only. ??Grossed by PDH. Brizuela. ??Received fresh labeled right anterior abdominal wall is a 3.8 x 2 x 0.5 cm portion of red-pink, peritonealized fibromembranous tissue. ??A 0.2 cm nodule is present. Fish Farmer tissue submitted for permanent sections only. Grossed by DJS. Estrada. ??Received fresh labeled right pelvic gutter is a 2.2 x 1 x 0.2 cm aggregate of red-pink fibromembranous tissue. All submitted for permanent sections only. ??Grossed by RAL. Abdullahi. ??Received fresh labeled left mid diaphragm is a 2.2 x 1 x 0.2 cm portion of cauterized pink-white fibromembranous tissue. ??All submitted for permanent sections only. Grossed by RAL. Marmolejo. ??Received fresh labeled spleen is a 238 gram, 14.6 x 8.8 x 4.2 cm splenectomy specimen. ??The capsule is smooth and unremarkable. ??There is a 3 x 1.8 x 1.2 cm nodule. Hilar lymph nodes are not identified. ??Fish Farmer tissue submitted for permanent sections only. ??Grossed by DJS. Chery. ??Received fresh labeled right fallopian tube and ovary is a 4.8 gram, 6.8 x 4.9 x 2.6 cm ovary with a 7.7 x 0.8 cm fallopian tube. ??The ovary has implants and adhesions on the outer surface and a cystic to solid cut surface. ??Papillary and friable excrescences are identified within the cystic component. ??The fallopian tube has multiple adhesions and serosal implants. ??Fish Farmer tissue submitted for permanent sections only. ??Grossed by DJS. Dubois. ??Received fresh labeled uterus, left fallopian tube and ovary is a 150.8 gram uterus with cervix with attached left fallopian tube and ovary. ??The uterine serosa has serosal implants. ??The peritoneal reflection is adhesed to the serosal surface of the uterus and outer surface of the left ovary. ??Peritoneal reflection is grossly involved by tumor and involves anterior uterine serosa and possible anterior myometrium. ??The endometrium has fibrosis of the lower uterine segment resulting in complete stenosis. ??There are no uterine leiomyomas. ??There is a 5 x 3.4 x 1.5 cm left ovary with a ragged outer surface, grossly involved by tumor over an area of 1.4 x 1.5 cm ovarian surface (inked in black) ??and a cystic and solid cut surface. ??Ovary is grossly involved by tumor, 2 x 1.5 x 3 cm, which extends from ovary surface to tumor nodule of peritoneal reflection. There is a 7.5 x 1 cm left fallopian tube which is unremarkable. ??Fallopian tube fimbriae are entirely submitted. ??Separately from the main specimen is submitted an aggregate, 3.5 x 3 x 1.6 cm of soft tissue. Fish Farmer tissue submitted for permanent sections only. Grossed by RAK. Gallegos ??Received fresh labeled portion of sigmoid colon is a 13.5 cm in length portion of colon. ??There are serosal tumor implants and adhesions. ??The mucosa is unremarkable. Fish Farmer tissue submitted for permanent sections only. Grossed by EDNA. Block Summary A Umbilical nodule 05/11/2021 M[facility] A1 Umbilical nodule 1 2:48 PM A2 Umbilical nodule 2 VENEER DRIER B Falciform ligament B1 Nodular area 1 B2 Nodular area 2 C Omentum C1 Omental lymph nodes 2 (C1) C2 Omental lymph node 1 (C2) C3 Omental nodule D Liver wedge segment 4B/3 nodule D1 Mass to margin 1 D2 Mass to margin 2 D3 Non-neoplastic liver E Right diaphragm E1 Right diaphragm smaller nodules-1 E2 Right diaphragm large nodule E3 Right diaphragm smaller nodules-2 F Right anterior abdominal wall F1 Right anterior abdominal wall 1 F2 Right anterior abdominal wall 2 G Right pelvic gutter G1 Right pelvic gutter-1 G2 Right pelvic gutter-2 H Left mid diaphragm H1 Left mid diaphragm I Spleen I1 Spleen nodule I2 Uninvolved spleen J Right fallopian tube and ovary J1 Right fallopian tubes J2 Right ovary-1 J3 Right ovary-2 K Uterus, left fallopian tube and ovary K1 Left fallopian tube-1 K2 Left fallopian tube-2 K3 Left ovary and tumor-1 K4 Left ovary and tumor-2 K5 Tumor, ovary and peritoneal reflection-1 K6 Tumor, ovary and peritoneal reflection-2 K7 Posterior cervix 6:00 K8 Anterior myometrium and peritoneal reflection tumor-1 K9 Anterior myometrium and peritoneal reflection tumor-2 K10 Anterior endomyometrium K11 Posterior endomyometrium L Portion of sigmoid colon L1 Portion of sigmoid colon-1 L2 Portion of sigmoid colon-2 Addendum [employer] CDx ?? has been requested by Dr. Jessica Uribe and 07/01/2021 METH will be performed on block J2 at [facility] 3:33 PM [employer], [place], [place]. VENEER DRIER Signed by James Pantoja M.D., Ph.D. 07/01/2021 3:33 PM Comment: REVISED RESULTS Interpretation FINAL DIAGNOSIS 07/01/2021 3:33 PM VENEER DRIER METH J. 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 See synoptic report. K. 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 ??Endometrium, cervix and fallopian tube are negative for tumor. A. ??Soft tissue, umbilical nodule, excision: ??Metastatic carcinoma. B. ??Falciform ligament, excision: ??Negative for tumor. C. ??Omentum, omentectomy: ??Metastatic carcinoma measuring up to 0.3 cm. Multiple (2) lymph nodes negative for tumor. D. ??Liver, segment III/IVB nodule, wedge resection: Metastatic carcinoma forming a 2.6 cm mass involving liver parenchyma. Margin negative for tumor. E. ??Peritoneum, right diaphragm, excision: ??Metastatic carcinoma measuring up to 3.6 cm. F. ??Soft tissue, right anterior abdominal wall, excision: Metastatic carcinoma. G. ??Peritoneum, right pelvic gutter, excision: ??Metastatic carcinoma. H. ??Peritoneum, left mid diaphragm, excision: ??Metastatic carcinoma. I. ??Spleen, splenectomy: ??Metastatic carcinoma forming a 3 cm mass involving splenic parenchyma. L. ??Colon, portion sigmoid, resection: ??Metastatic carcinoma involving serosal surface. SYNOPTIC REPORT : Ovarian, Fallopian Tube, and Peritoneum Procedure: ??Total hysterectomy and bilateral salpingo-oophorectomy, omentectomy, peritoneal tumor debulking Specimen Integrity: ? Right Ovary: Capsule intact ? Left Ovary: Capsule intact ? Right Fallopian Tube: Serosa intact ? Left Fallopian Tube: Serosa intact Tumor Site: Right fallopian tube Tumor Size: ??0.2 cm Histologic Type: High grade serous carcinoma Histologic Grade: ? WHO Grading System: Not applicable ? Two-Tier Grading System: High grade Ovarian Surface Involvement: Present, bilateral Fallopian Tube Surface Involvement: ??Present, right Implants: Not applicable Other Tissue/Organs Involvement: ??Right ovary, left ovary, uterine serosa, pelvic peritoneum, abdominal peritoneum, omentum, liver, spleen, colon serosa Largest Extrapelvic Peritoneal Focus: ??Macroscopic ? Specify sites: ??Diaphragm peritoneum Peritoneal/Ascitic Fluid: Not submitted Chemotherapy Response Score (CRS): 1 Regional Lymph Node Status ? Not applicable (no regional lymph nodes submitted or found) Distant Metastasis: Splenic parenchyma, liver parenchyma Pathologic Staging (AJCC, 8th edition) TNM Descriptors: y pT Category: pT3c pN Category: ??Not assigned (no regional nodes submitted) pM Category: pM1b FIGO Stage (2018): IVB The synoptic report incorporates information from all relevant surgical material and includes all required data elements of the current CAP Cancer Protocol. Specimen (Source) Anatomical Collection Method Collection Time Re ceived Time Location / / Volume Laterality Tissue 05/09/2021 10:04 (Umbilicus) AM VENEER DRIER Tissue (Pelvis) 05/09/2021 10:06 AM VENEER DRIER Tissue (Omentum) 05/09/2021 10:57 AM VENEER DRIER Tissue (Liver) 05/09/2021 11:43 AM VENEER DRIER Tissue 05/09/2021 11:59 (Diaphragm, AM VENEER DRIER Right) Tissue (Abdomen) 05/09/2021 12:07 PM VENEER DRIER Tissue (Pelvis, 05/09/2021 12:11 Right) PM V[facility]ER DRIER Tissue 05/09/2021 12:36 (Diaphragm, Left) PM VENEER DRIER Tissue (Spleen) 05/09/2021 12:57 PM VENEER DRIER Tissue (Ovary, 05/09/2021 1:22 PM Right) VENEER DRIER Tissue (Uterus) 05/09/2021 3:05 PM VENEER DRIER Tissue (Colon) 05/09/2021 3:10 PM VENEER DRIER Narrative This result has an attachment that is no t available. Denisha Oviedo M.D. LAB SURG PATH ORDERABLES Performing Organization Address [facility] Phon e Number [facility] - [address] [place] [address] [place] [address] [place] [address] [facility] Type and Screen (with reflex Antibody ID) (05/09/2021 7:29 AM VENEER DRIER) [facility] gist Method Time Signature ABORh B Neg Not 05/09/2021 ETRM applicable 9:21 AM VENEER DRIER Antibody Negative Negative 05/09/2021 ETRM Screen 9:32 AM VENEER DRIER Type & Screen 05/12/2021 05/09/2021 ETRM Expiration 23:59 9:21 AM VENEER DRIER Testing Brantley DEFAULT 05/09/2021 ETRM Location 8:27 AM VENEER DRIER Specimen Anatomical Collection Method Collection Time Receive d Time (Source) Location / / Volume Laterality Blood (Blood, 05/09/2021 7:29 AM 05/09/20 8:27 Venous) VENEER DRIER AM VENEER DRIER Denisha Oviedo M.D. LAB BLOOD BANK TEST ORDERABL ES Performing Organization Address [facility] Phon e Number [facility] - [address] [place] [address] documented in this encounter Visit Diagnoses Diagnosis Malignant Neoplasm Of Ovary Laterality U nknown (HCC) - Primary Personal History Of Malignant Neoplasm O f Ovary documented in this encounter Admitting Diagnoses Diagnosis Malignant Neoplasm Of Ovary Laterality U nknown (HCC) Personal History Of Malignant Neoplasm O f Ovary documented in this encounter Administered Medications Inactive Administered Medications - up to 3 most recent administrations Medication Order MAR Action Action Date Dose Rate Site acetaminophen injection 1,000 New Bag 05/09/2021 5:51 PM 1,000 mg 400 mL/hr mg VENEER DRIER 1,000 mg, intravenous, at 400 mL/hr, Administer over 15 Minutes, Once as needed, other, If patient has not received in previous 6 hours, Starting on Sun05/09/21 at 1710, For 1 dose, PACU (only), Oral unless RASS less than -1 or nausea/vomiting. Do not use if given in last 6 hours, Restriction Criteria (Pharmacy will review and approve if criteria met): Unable to take or tolerate medications administered via the enteral route or orally (not just NPO) acetaminophen tablet 1,000 mg (TYLENOL) Given 05/09/2021 8:00 AM [facility]ER 1,000 mg 1,000 mg, oral, Once, On Sun05/09/21 at 0745, For 1 dose, Pre-Op, In Pre Op holding (PWA) acetaminophen tablet 1,000 mg (TYLENOL) Given 05/14/2021 6:19 AM [facility]ER [facility]RIER 1,000 mg 1,000 mg, oral, Every 6 hours, First dose on Sun05/10/21 at 0000, not to exceed 4 grams in 24 hours. Given 05/13/2021 11:53 PM [facility]ER DRIER 1,000 mg Given 05/13/2021 5:50 PM [facility]ENEER DRIER 1,000 mg alvimopan capsule 12 mg (ENTEREG) Given 05/11/2021 8:55 AM V[facility] DRIER 12 mg 12 mg, oral, 2 times daily, First dose on Sun05/09/21 at 2100, For 7 days, Until bowel movement or hospital discharge. Maximum 7 days., Has the patient received fewer than 15 doses? Yes, I certify that I have reviewed and ensured compliance to the REMS program requirements outlined in the reference links: Yes Given 05/10/2021 9:12 PM [facility] D[facility]ER 12 mg Given 05/10/2021 8:25 AM [facility]RIER 12 mg benzocaine-menthoL 15-3.6 mg per lozenge 1 Given 05/10 1:26 AM [facility] DRIER 1 lozenge lozenge (CEPACOL) 1 lozenge, oral, As needed, sore throat, Starting on Sun05/09/21 at 2025 calcium carbonate chewable tablet Given 05/11/2021 6:3 1 PM [facility]ER DRIER 400 mg of calcium 400 mg of calcium (TUMS) 400 mg of calcium, oral, 3 times daily PRN, indigestion, heartburn, Starting on Sun05/09/21 at 2026, Doses listed are in mg of elemental calcium. Take with food. 500 mg calcium carbonate contains 200 mg of elemental calcium. ceFAZolin in dextrose (iso-os) IVPB 2 New Bag 05/10/2021 3:20 PM [facility]ER DRIER 2 g 200 mL/hr g (ANCEF) 2 g, intravenous, at 200 mL/hr, Administer over 30 Minutes, Every 8 hours, First dose on Sun05/09/21 at 2300, For 24 hours, Drug Monitoring Program: Pharmacist to adjust medication dosing based on indication and drug clearance factors., Indications: Prophylaxis, surgical New Bag 05/10/2021 6:53 AM [facility]ER 2 g 200 mL/hr New Bag 05/09/2021 11:18 PM [facility] DRIER 2 g 200 mL/hr celecoxib capsule 400 mg (CeleBREX) Given 05/09/2021 7:59 AM [facility]RIER 400 mg 400 mg, oral, Once, On Sun05/09/21 at 0745, For 1 dose, Pre-Op, Pre-procedure on unit. Not to be administered for true sulfa allergy, acute GI bleed, history of GI bleed within past 6 months, or NSAID contraindications. cyclobenzaprine tablet 5 mg (FLEXERIL) Given 05/10/2021 4:31 AM [facility]RIER 5 mg 5 mg, oral, Once as needed, muscle spasms, Starting on Sun05/10/21 at 0312, For 1 dose cyclobenzaprine tablet 5 mg (FLEXERIL) Given 05/14/2021 2:11 AM V[facility]ER DRIER 5 mg 5 mg, oral, 3 times daily PRN, muscle spasms, Starting on Misty 05/12/21 at 0744 Given 05/13/2021 8:26 PM [facility]ER DRIER 5 mg Given 05/13/2021 2:01 PM [facility] DRIER 5 mg diphenhydrAMINE capsule 25 mg (BENADRYL) Given 05/10/2021 4:31 AM V[facility] DRIER 25 mg 25 mg, oral, Every 6 hours PRN, itching, sleep, Starting on Sun05/10/21 at 0251 enoxaparin injection 40 mg Given 05/13/2021 2:01 PM [facility] DRIER 40 mg Left Outer Thigh (LOVENOX) 40 mg, subcutaneous, Daily, First dose on Sun05/11/21 at 1400 Given 05/12/2021 2:58 PM [facility] DRIER 40 mg Right Outer Thigh Given 05/11/2021 2:06 PM VENEER DRIER 40 mg Right Upper Hip haloperidol lactate injection 1 mg (HALD OL) Given 05/10/2021 5:50 PM [facility] DRIER 1 mg 1 mg, intravenous, Every 6 hours PRN, nausea, vomiting, Starting on Sun05/09/21 at 1840, For 48 hours, Total of 3 doses in 24 hour period. RASS must be -2 or higher to administer. Reassess for nausea or vomiting after at least 10 minutes. If nausea or vomiting persists administer next ordered antiemetic medications (order for antiemetic medication administration ondansetron then haloperidol then promethazine) heparin (porcine) Given 05/11/2021 5:24 AM [facility]RIER 5,000 Units Right Outer Thigh injection 5,000 Units 5,000 Units, subcutaneous, Every 8 hours scheduled, First dose on Sun05/09/21 at 2200 Given 05/10/2021 9:12 PM [facility]ER DRIER 5,000 Units Left Outer Thigh Given 05/10/2021 2:36 PM [facility]ENEER DRIER 5,000 Units Left Outer Thigh HYDROmorphone (PF) injection 0.4 mg Given 05/11/2021 12:21 AM CS T 0.4 mg (DILAUDID) 0.4 mg, intravenous, Every 2 hour PRN, for breakthrough pain, Starting on Sun05/10/21 at 0836, Unrelieved 30 minutes after PRN oral pain medication is used; if unable to take oral pain medication; or if pain is greater than or equal to 7, use instead of oral pain medication. Given 05/10/2021 7:52 PM [facility]ER 0.4 mg Given 05/10/2021 3:31 PM [facility]RIER 0.4 mg HYDROmorphone tablet 2 mg (DILAUDID) Given 05/10/2021 1:15 PM [facility] DRIER 2 mg 2 mg, oral, Every 4 hours PRN, severe pain or score 7-10 of 10, Starting on Sun05/10/21 at 1238 HYDROmorphone tablet 2 mg (DILAUDID) Given 05/14/2021 10:29 AM [facility] DRIER 2 mg 2 mg, oral, Every 4 hours PRN, moderate pain or score 4-6 of 10, Starting on Sun05/10/21 at 1518 Given 05/14/2021 6:23 AM V[facility] DRIER 2 mg Given 05/12/2021 2:59 PM VENEER DRIER 2 mg HYDROmorphone tablet 4 mg (DILAUDID) Given 05/14/2021 2:11 AM [facility] DRIER 4 mg 4 mg, oral, Every 4 hours PRN, severe pain or score 7-10 of 10, Starting on Sun05/10/21 at 1518 Given 05/13/2021 8:26 PM [facility]ER 4 mg Given 05/13/2021 4:19 PM [facility] DRIER 4 mg ibuprofen tablet 600 mg (ADVIL,MOTRIN) Given 05/14/2021 6:19 AM [facility]RIER 600 mg 600 mg, oral, Every 6 hours, First dose on Sun05/10/21 at 1900, start 6 hours after last ketorolac dose administered Given 05/13/2021 11:54 PM [facility] DRIER 600 mg Given 05/13/2021 5:50 PM [facility] DRIER 600 mg ketorolac injection 15 mg (TORADOL) Given 05/10/2021 12:32 PM [facility] 15 mg 15 mg, intravenous, Every 6 hours, First dose on Sun05/09/21 at 1900, For 4 doses, start no sooner than 6 hours after last intraoperative dose Adult IV push rate: Over 15 seconds. Peds IV push rate: Over 1 minute. 60 mg dose only for IM, not recommended for IV., Drug Monitoring Program: Pharmacist to adjust medication dosing based on indication and drug clearance factors. Given 05/10/2021 6:01 AM [facility] 15 mg Given 05/10/2021 1:16 AM [facility] 15 mg lactated ringers Continued from OR 05/09/2021 5:33 PM [facility]ER 20 mL/hr 20 mL/hr 20 mL/hr, intravenous, Continuous, Starting on Sun05/09/21 at 1530, PACU & Post-Op lactated ringers Rate/Dose Change 05/09/2021 6:59 PM [facility] 40 mL/hr 40 mL/hr 40 mL/hr, intravenous, Continuous, Starting on Sun05/09/21 at 1845 lisdexamfetamine capsule 70 mg (VYVANSE) Given 05/14/2021 6:19 AM [facility] 70 mg 70 mg, oral, Daily, First dose on Sun05/10/21 at 0700, See tube feeding guidelines for tube feeding administration instructions. Given 05/13/2021 6:06 AM [facility] 70 mg Given 05/12/2021 6:56 AM [facility]ER 70 mg magnesium hydroxide suspension 30 mL (MILK OF Given 8:26 PM [facility]RIER 30 mL MAGNESIA) 30 mL, oral, 2 times daily, First dose on Sun05/09/21 at 2100, Starting evening of surgery. After first bowel movement discontinue Magnesium hydroxide Given 05/13/2021 9:55 AM [facility]ER 30 mL Given 05/12/2021 7:07 PM [facility]ER 30 mL MCV4: quadrivalent meningococcal Given 05/12/2021 7:08 PM [facility] 0. 5 mL Other conjugate (PF) vaccine 0.5 mL (MENVEO) 0.5 mL, intramuscular, Once, On Misty 05/12/21 at 1600, For 1 dose melatonin tablet 3 mg Given 05/11/2021 10:21 PM [facility] 3 mg 3 mg, oral, Bedtime PRN, sleep, Starting on Sun05/09/21 at 2026 MenB: meningococcal B vaccine 0.5 mL Given 05/12/2021 7:12 PM CS T 0.5 mL Other (BEXSERO) 0.5 mL, intramuscular, Once, On Misty 05/12/21 at 1600, For 1 dose metroNIDAZOLE in NaCl (iso-osm) New Bag 05/10/2021 2:36 PM [facility] 500 mg 200 mL/hr IVPB 500 mg (FLAGYL) 500 mg, intravenous, at 200 mL/hr, Administer over 30 Minutes, Every 8 hours, First dose on Sun05/09/21 at 2230, For 24 hours, Indications: Prophylaxis, surgical New Bag 05/10/2021 6:00 AM [facility]ER 500 mg 200 mL/hr New Bag 05/09/2021 10:36 PM [facility]RIER 500 mg 200 mL/hr NaCl 0.9 % bolus 1,000 mL New Bag 05/10/2021 3:25 AM [facility]ER 1,000 mL 1000 mL/hr 1,000 mL, intravenous, at 1,000 mL/hr, Administer over 1 Hours, Once, On Sun05/10/21 at 0300, For 1 dose nalbuphine injection 2.5 mg (NUBAIN) Given 05/10/2021 1:08 PM [facility]ER 2.5 mg 2.5 mg, intravenous, Every 4 hours PRN, itching, Starting on Sun05/09/21 at 1840, For 4 doses, PACU & Post-Op Given 05/09/2021 9:31 PM [facility]ER 2.5 mg ondansetron (PF) injection 4 mg (ZOFRAN) Given 05/11/2021 7:29 PM [facility]ER 4 mg 4 mg, intravenous, Every 6 hours PRN, nausea, vomiting, Starting on Sun05/09/21 at 1840, Reassess for nausea or vomiting after at least 10 minutes. If nausea or vomiting persists administer next ordered antiemetic medications (order for antiemetic medication administration ondansetron then droperidol then promethazine). Given 05/10/2021 3:41 PM [facility]ER 4 mg oxybutynin tablet 5 mg (DITROPAN) 5 mg, oral, Every 8 hours PRN, bladder spasms, Startin g on Sun05/09/21 at 2025 oxyCODONE IR tablet 10 mg (ROXICODONE) Given 05/10/2021 7:59 AM [facility] 10 mg 10 mg, oral, Every 4 hours PRN, severe pain or score 7-10 of 10, Starting on Sun05/09/21 at 0836, For 24 hours, PACU & Post-Op, To be administered in the first 24 hours after intrathecal dose given. Given 05/09/2021 7:02 PM [facility]RIER 10 mg oxyCODONE IR tablet 5 mg (ROXICODONE) Given 05/10/2021 1:26 AM [facility] DRIER 5 mg 5 mg, oral, Every 4 hours PRN, moderate pain or score 4-6 of 10, Starting on Sun05/09/21 at 0836, For 24 hours, PACU & Post-Op, To be administered in the first 24 hours after intrathecal dose given. promethazine injection 6.25 mg (PHENERGA N) Given 05/11/2021 10:11 PM [facility]ER 6.25 mg 6.25 mg, intravenous, Every 6 hours PRN, nausea, vomiting, Starting on Sun05/09/21 at 1840, RASS must be -2 or higher to administer. Reassess for nausea/vomiting after at least 10 minutes. If nausea or vomiting persists administer next ordered antiemetic medications (order for antiemetic medication administration ondansetron then droperidol then promethazine). scopolamine base 1 mg Medication Applied 05/09/2021 8:02 AM 1 patch Behind Left Ear over 3 days 1 patch [facility]ER DRIER (TRANSDERM SCOP) 1 patch, transdermal, Administer over 72 Hours, Once as needed, nausea and vomiting, Starting on Sun05/09/21 at 0802, For 1 dose, Pre-Op, Contains 1.5 mg to deliver 1 mg/72 hours. sennosides tablet 17.2 mg (SENOKOT) Given 05/13/2021 10:30 PM [facility]ER 17.2 mg 17.2 mg, oral, Daily, First dose on Sun05/13/21 at 2115 simethicone chewable tablet 80 mg (MYLIC ON) Given 05/13/2021 9:55 AM [facility]RIER 80 mg 80 mg, oral, 4 times daily PRN, flatulence, Starting on Sun05/09/21 at 2025 Given 05/13/2021 3:38 AM [facility]ER 80 mg Given 05/11/2021 3:35 PM [facility] DRIER 80 mg sodium phosphates enema 1 enema (FLEET) Given 05/09/2021 7:00 AM [facility]ER 1 enema 1 enema, rectal, Once, On Sun05/09/21 at 0645, For 1 dose, Pre-Op, Give Fleets if not done at home the morning of surgery documented in this encounter Active and Recently Administered Medications Times are shown in [facility]ER. Scheduled Medication Order 05/12/2021 05/13/2021 05/14/2021 acetaminophen tablet 1,000 mg (TYLENOL) 0657 (Given - Provider: Jessie Rebolledo RDayan.)1222 (Given - Provider: Angela Paniagua RChapincitoN.)1803 (Given - Provider: Celeste Goldberg RChapincitoN.)2304 (Given - Provider: Celeste Goldberg R.N.) 0606 (Given - Provider: Jessie Rebolledo R.N.)1126 (Given - Provider: Jaimee Morales R.N.)1750 (Given - Provider: Celeste Goldberg R.N.)2353 (Given - Provider: Jessie Rebolledo R.N.) 0619 (Given - Provider: Jessie Rebolledo R.N.) 1,000 mg, oral, Every 6 hours, First dos e on Sun05/10/21 at 0000, not to exceed 4 grams in 24 hours. enoxaparin injection 40 mg (LOVENOX) 1458 (Given - Pro vider: Angela Paniagua R.N.) 1401 (Given - Provider: Jaimee Morales RChapincitoNChapincito) 40 mg, subcutaneous, Daily, First dose on Sun05/11/21 at 1400 ibuprofen tablet 600 mg (ADVIL,MOTRIN) 0031 (Given - P rovider: Adonay LuciaN.)0702 (Given - Provider: Jessie Rebolledo R.N.)1222 (Given - Provider: Angela Paniagua R.N.)1803 (Given - Provider: Adonay CollierN.) 0338 (Given - Provider: Jessie Rebolledo R.N.)0955 (Given - Provider: Jaimee Morales R.N.)1750 (Given - Provider: Celeste Goldberg R.N.)2354 (Given - Provider: Adonay LuciaN.) 0619 (Given - Provider: Maximo Lucia.NChapincito) 600 mg, oral, Every 6 hours, First dose on Sun05/10/21 at 1900, start 6 hours after last ketorolac dose administered lisdexamfetamine capsule 70 mg (VYVANSE) 0656 (Given - Provider: Jessie Rebolledo R.N.) 0606 (Given - Provider: Jessie Rebolledo R.N.) 0619 ( Given - Provider: Jessie Rebolledo R.NChapincito) 70 mg, oral, Daily, First dose on Sun at 0700, See tube feeding guidelines for tube feeding administration instructions. magnesium hydroxide suspension 30 mL (MILK OF MAGNESIA ) 0957 (Not Given - Provider: Angela Paniagua R.N. - Reason: Order parameters not met - Comment: having loose stools and gas)1907 (Given - Provider: Celeste Goldberg R.N.) 0955 (Given - Provider: Jaimee Morales RChapincitoN.)2026 (Given - Provider: Celeste Goldberg R.N.) 0853 (Not Given - Provider: Celeste maldonado R.N. - Reason: Order parameters not met) 30 mL, oral, 2 times daily, First dose o n Mon 29/21 at 2100, Starting evening of surgery. After first bowel movement discontinue Magnesium hydroxide MCV4: quadrivalent meningococcal conjuga te (PF) vaccine 0.5 mL (MENVEO) (COMPLETED) 1907 (Given - Provider: Celeste Goldberg R.N.) 0.5 mL, intramuscular, Once, On Misty 05/12/21 at 1600, For 1 dose MenB: meningococcal B vaccine 0.5 mL (BEXSERO) (COMPLE MARLEY) 1911 (Given - Provider: Celeste Goldberg R.N. - Comment: L regla) 0.5 mL, intramuscular, Once, On Misty 05/12/21 at 1600, For 1 dose sennosides tablet 17.2 mg (SENOKOT) 2229 (Given - Provider: Celeste Goldberg R.N.) 17.2 mg, oral, Daily, First dose on Sun05/13/21 at 2115 PRN Medication Order 05/12/2021 05/13/2021 05/14/2021 benzocaine-menthoL 15-3.6 mg per lozenge 1 lozenge (CEPACOL) 1 lozenge, oral, As needed, sore throat, Starting on Sun 1 at 2025 calcium carbonate chewable tablet 400 mg of calcium (TUMS) 400 mg of calcium, oral, 3 times daily P RN, indigestion, heartburn, Starting on Sun05/09/21 at 2026, Doses listed are in mg of elemental calcium. Take with food. 500 mg calcium carbonate contains 200 mg of elemental calcium. cyclobenzaprine tablet 5 mg (FLEXERIL) 0820 (Given - P rovider: Angela Paniagua, R.NChapincito)1459 (Given - Provider: Angela Paniagua, R.N.)2159 (Given - Provider: Celeste Goldberg R.N.) 0606 (Given - Provider: Jessie Rebolledo RChapincitoNChapincito)1401 (Given - Provider: Adonay PettitNChapincito)6 (Given - Provider: Celeste Goldberg R.N.) 0211 (Given - Provider: Jessie Rebolledo R.N.) 5 mg, oral, 3 times daily PRN, muscle spasms, Starting on Misty at 0744 diphenhydrAMINE capsule 25 mg (BENADRYL) 25 mg, oral, Every 6 hours PRN, itching, sleep, Starting on Sun05/10/21 at 0251 HYDROmorphone (PF) injection 0.4 mg (DILAUDID) 0.4 mg, intravenous, Every 2 hour PRN, f or breakthrough pain, Starting on Sun05/10/21 at 0836, Unrelieved 30 minutes after PRN oral pain medication is used; if unable to take oral pain medication; or i f pain is greater than or equal to 7, use instead of oral pain m edication. HYDROmorphone tablet 2 mg (DILAUDID)(Linked Group 1) 0 414 (See Alternative - Provider: Jessie Rebolledo RAustin)0820 (Given - Provider: Angela Paniagua R.N.)1459 (Given - Provider: Angela Paniagua R.N.)1907 (See Alternative - Provider: Celeste Goldberg RAustin) 0338 (See Alternative - Provider: Adonay BridgesNChapincito)0731 (See Alternative - Provider: Jaimee Morales RChapincitoNChapincito)1128 (See Alternative - Provider: Jaimee Morales R.N.)1619 (See Alternative - P rovider: Celeste Goldberg RChapincitoNChapincito) 0211 (See Alternative - Provider: Adonay BridgesN.)0623 (Given - Provider: Adonay LuciaN.)1029 (Given - Provider: Cecille Miles R.N., C.M.S.R.N.) 2 mg, oral, Every 4 hours PRN, moderate pain or score 4-6 of 10, Starting on Sun05/10/21 at 1518 2304 (See Alternative - Provider: Celeste Goldberg RDayan. ) 2026 (See Alternative - Provider: Celeste Goldberg R.N.) HYDROmorphone tablet 4 mg (DILAUDID)(Linked Group 1) 0 414 (Given - Provider: Jessie Rebolledo R.N.)0820 (See Alternative - Provider: Angela Paniagua R.N.)1459 (See Alternative - Provider: Angela Paniagua R.N.)1907 (Given - Provider: Celeste Goldberg R.N.) 0338 (Given - Provider: Jessie Rebolledo R.N.)0731 (Given - Provider: Jaimee Morales R.N.)1128 (Given - Provider: Jaimee Morales R.N.)1619 (Given - Provider: Celeste Goldberg R.N. - Comment: 4mg per pt request) 0211 (Given - Provider: Jessie Rebolledo R.N.)0623 (See Alternative - Provider: Jessie Rebolledo R.N.)1029 (See Alternative - Provider: Cecille Miles R.N., C.M.S.R.NChapincito) 4 mg, oral, Every 4 hours PRN, severe pa in or score 7-10 of 10, Starting on Sun05/10/21 at 1518 2304 (Given - Provider: Celeste Goldberg R.N. - Comment: 4mg per patient request) 2025 (Given - Provider: Celeste Goldberg R.N.) melatonin tablet 3 mg 3 mg, oral, Bedtime PRN, sleep, Starting on Sun05/09/21 at 2026 nalbuphine injection 2.5 mg (NUBAIN) 2.5 mg, intravenous, Every 4 hours PRN, itching, Starting on Sun05/09/21 at 1840, For 4 doses, PACU & Post-Op naloxone injection 0.2 mg (NARCAN) 0.2 mg, intravenous, As needed, respirat ory depression, Starting on Sun05/09/21 at 1840, For respiratory rate less than 8 breaths per minute or RASS score of - 3, -4, -5. Apply oxygen to keep oxygen saturations greater than 90% and notify service. ondansetron (PF) injection 4 mg (ZOFRAN) 4 mg, intravenous, Every 6 hours PRN, na usea, vomiting, Starting on Sun05/09/21 at 1840, Reassess for nausea or vomiting after at least 10 minutes. If nausea or vomiting persists administer next ordere d antiemetic medications (order for anti emetic medication administration ondansetron then droperidol then promethazine). oxybutynin tablet 5 mg (DITROPAN) 5 mg, oral, Every 8 hours PRN, bladder spasms, Startin g on Sun05/09/21 at 2025 promethazine injection 6.25 mg (PHENERGAN) 6.25 mg, intravenous, Every 6 hours PRN, nausea, vomiting, Starting on Sun05/09/21 at 1840, RASS must be -2 or higher to administer. Reassess for nausea/vomiting after at least 10 minutes. If nausea or vomiting persists administer next order ed antiemetic medications (order for antiemetic medication administration ondansetron then droperidol then promethazine). simethicone chewable tablet 80 mg (MYLICON) 0338 (Given - Provider: Jessie Rebolledo RChapincitoNChapincito)0955 (Given - Provider: Jaimee Morales RAustin) 80 mg, oral, 4 times daily PRN, flatulence, Starting on 04/12 at 2025 Linked Groups Order Group 1: HYDROmorphone tablet 2 mg (DILAUDID)Jump to med 2 mg, oral, Every 4 hours PRN, moderate pain or score 4-6 of 10, Starting on Sun05/10/21 at 1518 Or HYDROmorphone tablet 4 mg (DILAUDID)Jump to med 4 mg, oral, Every 4 hours PRN, severe pa in or score 7-10 of 10, Starting on Sun05/10/21 at 1518 documented in this encounter
--- OUTSIDE RECORDS SUMMARY | 2022-03-06 01:51 | XMS_ITS | Encounter Summary ---
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 [address] [place] [id number] 04/13/2022 Office Visit Oncology Walter Barnhart M.D., Ph.D. [address] [place] [id number] documented as of this encounter Visit Diagnoses Not on filedocumented in this encounter
--- OUTSIDE RECORDS SUMMARY | 2022-03-06 01:51 | XMS_ITS | Encounter Summary ---
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 [address] [place] [phone] 04/13/2022 Office Visit Oncology Walter Barnhart M.D., Ph.D. [address] [place] [address] documented as of this encounter Visit Diagnoses Diagnosis Malignant Neoplasm Of Ovary Laterality U nknown (HCC) - Primary Neutropenia Drug Induced (HCC) documented in this encounter Administered Medications Inactive Administered Medications - up to 3 most recent administrations Medication Order MAR Action Action Date Dose Rate Site CARBOplatin 650 mg in NaCl New Bag 06/20/2021 2:40 PM CAPACITOR INSPECTOR 650 mg 680 mL/hr 0.9% 340 mL IVPB (PARAPLATIN) 650 mg (rounded from 648 mg, Target AUC = 6), intravenous, at 680 mL/hr, Administer over 30 Minutes, Once, On 06/20/21 at 1245, For 1 dose dexamethasone in NaCl 0.9% IVPB 12 New Bag 06/20/2021 9:20 AM CAPACITOR INSPECTOR 12 mg 200 mL/hr mg (DECADRON) 12 mg, intravenous, at 200 mL/hr, Administer over 15 Minutes, Once, On Sun06/20/21 at 0915, For 1 dose, Give prior to PACLitaxel Refrigerate diphenhydrAMINE 50 mg in NaCl 0.9% New Bag 06/20/2021 10:04 AM CAPACITOR INSPECTOR 50 mg 204 mL/hr IVPB (BENADRYL) 50 mg, intravenous, at 204 mL/hr, Administer over 15 Minutes, Once, On Sun06/20/21 at 0915, For 1 dose, Pre taxol. ivpb vs ivp to help with symptoms famotidine injection 20 mg (PEPCID) Given 06/20/2021 9:19 AM CAPACITOR INSPECTOR 20 mg 20 mg, intravenous, Once, On Sun06/20/21 at 0915, For 1 dose, Give prior to PACLitaxel See IVAG for administration guidelines. fosaprepitant in NaCl 0.9% IVPB New Bag 06/20/2021 10:23 AM CS T 150 mg 500 mL/hr 150 mg (EMEND) 150 mg, intravenous, at 500 mL/hr, Administer over 30 Minutes, Once, On Sun06/20/21 at 0915, For 1 dose, Incompatible with solutions containing divalent cations (calcium, magnesium) including lactated Ringer's solution. ondansetron in NaCl 0.9% IVPB 16 mg New Bag 06/20/2021 9:46 AM CAPACITOR INSPECTOR 16 mg 232 mL/hr (ZOFRAN) 16 mg, intravenous, at 232 mL/hr, Administer over 15 Minutes, Once, On Sun06/20/21 at 0915, For 1 dose PACLitaxeL 288 mg in NaCl 0.9% New Bag 06/20/2021 11:02 AM CAPACITOR INSPECTOR 288 mg 108 mL/hr (non-PVC) 323 mL IVPB (TAXOL) 288 mg (rounded from 285.25 mg = 175 mg/m2 ? 1.63 m2 Treatment Plan BSA from Measured weight), intravenous, at 108 mL/hr, Administer over 3 Hours, Once, On Sun06/20/21 at 0945, For 1 dose, Administer via 0.22 micron in-line filter. pegfilgrastim on-body injector Given 06/20/2021 2:42 PM CAPACITOR INSPECTOR 6 mg Left Lower Abdomen 6 mg (NEULASTA ONPRO) 6 mg, subcutaneous, Once, On 06/20/21 at 0915, For 1 dose documented in this encounter
--- OUTSIDE RECORDS SUMMARY | 2022-03-06 01:51 | XMS_ITS | Encounter Summary ---
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 [address] [facility] [address] [place] [phone] Referral ID Status Reason Start Date Expiration Date Visits V isits Requested Authorized [id number] Authorized 02/17/2021 02/17/2022 12 12 Encounter Details Date Type Department Care Team Description 06/19/2021 Hospital Encounter Department of Marychuy Kapoor Neoplasm Of Ovary Laterality Unknown (HCC); Laboratory Medicine DENNY Sanchez, C.N.PChapincito, Madhu munoz Drug Induced (HCC) in [facility] [address] [facility] [address] [place] [phone] Social History Tobacco Use Types Packs/Day Years [...] Sig Dispensed Refills Start Date End Date dvmfebe-jygx-nngsg-oreg- Take 1 tablet by 0 capryl 100 [...] Appointment Laboratory Medicine Debbie Ivey M.D. 200 [place] [phone] 04/13/2022 Office Visit Oncology Walter Barnhart M.D., Ph.D. 200 [place] [phone] documented as of this encounter Procedures Procedure Name Priority Date/Time Associated Comments Diagnosis CBC CHEMO - NO ALERTS Routine 06/19/2021 10:06 Malignant Neopl asm Results for this AM EMERGENCY DOCTOR Of Ovary procedure are i n Laterality Unknown the resul ts (HCC) section. Neutropenia Drug Induced (HCC) CANCER AG 125 (CA 125), Routine 06/19/2021 10:06 Malignant Juan plasm Results for this S AM EMERGENCY DOCTOR Of Ovary procedure are i n Laterality Unknown the resul ts (HCC) section. Neutropenia Drug Induced (HCC) ASPARTATE Routine 06/19/2021 10:06 Malignant Neoplasm Resul ts for this AMINOTRANSFERASE (AST), AM EMERGENCY DOCTOR Of Ovary proc edure are in S/P Laterality Unknown the resul ts (HCC) section. Neutropenia Drug Induced (HCC) CREATININE WITH EGFR, Routine 06/19/2021 10:06 Malignant Neopl asm Results for this S/P AM EMERGENCY DOCTOR Of Ovary procedure are i n Laterality Unknown the resul ts (HCC) section. Neutropenia Drug Induced (HCC) BILIRUBIN, TOT, S/P Routine 06/19/2021 10:06 Malignant Neoplas m Results for this AM EMERGENCY DOCTOR Of Ovary procedure are i n Laterality Unknown the resul ts (HCC) section. Neutropenia Drug Induced (HCC) documented in this encounter Results Creatinine with Estimated GFR (06/19/2021 10:06 AM EMERGENCY DOCTOR) P athologist Signature Creatinine 0.77 0.59 - 06/19/2021 NPRG 1.04 mg/dL 10:43 AM EMERGENCY DOCTOR eGFR-Black/Afric >90 >=60 06/19/2021 NPRG an [place]ore[place] mL/min/BSA 10:43 AM EMERGENCY DOCTOR Comment: ----ADDITIONAL INFORMATION---- Estimated GFR calculated using the 2009 CKD_EPI creatinine equation. eGFR Non-Black/ >90 >=60 mL/min/BSA 06/19/2021 10:43 AM EMERGENCY DOCTOR NPRG Comment: ----ADDITIONAL INFORMATION---- Estimated GFR calculated using the 2009 CKD_EPI creatinine equation. Specimen Anatomical Collection Method Collection Time Receive d Time (Source) Location / / Volume Laterality Blood (Blood, 06/19/2021 10:06 06/19/2021 Venous) AM EMERGENCY DOCTOR 10:10 AM EMERGENCY DOCTOR Marychuy Kapoor APRN, C.N.P., M.S.N. LAB BLOOD ADD-ON Performing Organization Address City/State/ZIP Code Phon e Number [facility]- [address] [place], [place] [address] [place] [address] [place] [address] [facility] [address] (ABNORMAL) CBC, Chemotherapy, No Alerts (06/19/2021 10:06 AM EMERGENCY DOCTOR) Analysis Performed At Patho logist Time Signature Hemoglobin 11.3 (L) 11.6 - 06/19/2021 NPRG 15.0 g/dL 10:32 AM EMERGENCY DOCTOR Platelet Count 340 157 - 371 06/19/2021 NPRG x10(9)/L 10:32 AM EMERGENCY DOCTOR Leukocytes 3.7 3.4 - 9.6 06/19/2021 NPRG x10(9)/L 10:32 AM EMERGENCY DOCTOR Neutrophils 1.27 (L) 1.56 - 06/19/2021 NPRG 6.45 10:32 AM EMERGENCY DOCTOR x10(9)/L Specimen Anatomical Collection Method Collection Time Receive d Time (Source) Location / / Volume Laterality Blood (Blood, 06/19/2021 10:06 06/19/2021 Venous) AM EMERGENCY DOCTOR 10:10 AM EMERGENCY DOCTOR Carly Correa APRN.N.Katie., M.S.N. LAB BLOOD ADD-ON Performing Organization Address City/[facility] Phon e Number [address] Bilirubin, Total (06/19/2021 10:06 AM EMERGENCY DOCTOR) P athologist Signature Bilirubin, 0.2 <=1.2 mg/dL 06/19/2021 NPRG Total, P 10:43 AM EMERGENCY DOCTOR Specimen Anatomical Collection Method Collection Time Receive d Time (Source) Location / / Volume Laterality Blood (Blood, 06/19/2021 10:06 06/19/2021 Venous) AM EMERGENCY DOCTOR 10:10 AM EMERGENCY DOCTOR Carly Correa APRN.N.P., M.S.N. LAB BLOOD ADD-ON Performing Organization Address City/[facility] Phon e Number [address] LAB NPRG [place] [phone] AST (Aspartate Aminotransferase) (06/19/2021 10:06 AM EMERGENCY DOCTOR) Patholo gist Method Time Signature Aspartate 36 8 - 43 06/19/2021 NPRG Aminotransferase U/L 10:43 AM EMERGENCY DOCTOR (AST), P Specimen Anatomical Collection Method Collection Time Receive d Time (Source) Location / / Volume Laterality Blood (Blood, 06/19/2021 10:06 06/19/2021 Venous) AM EMERGENCY DOCTOR 10:10 AM EMERGENCY DOCTOR Marychuy Kapoor APRN, C.N.P., M.S.N. LAB BLOOD ADD-ON Performing Organization Address City/State/ZIP Code Phon e Number [facility]- [address] [place], [place] [address] [place] [address] LAB NPRG [facility] [place] [address] [place] [address] [place] Cancer Antigen 125 (CA 125) (06/19/2021 10:06 AM EMERGENCY DOCTOR) P athologist Signature Cancer Ag 125 11 <46 U/mL 06/21/2021 [facility] (CA 125), S 10:54 AM EMERGENCY DOCTOR Comment: ----ADDITIONAL INFORMATION---- The testing method is [...] Location / / Volume Laterality Blood (Blood, 06/19/2021 10:06 06/21/2021 Venous) AM EMERGENCY DOCTOR 10:21 AM EMERGENCY DOCTOR Marychuy Kapoor APRN, C.N.P., M.S.N. LAB BLOOD ADD-ON Performing Organization Address City/State/ZIP Code Phon e Number [facility] [address] [place], [place] [address] [place] [address] C[facility] [place] [address] Laboratory Medicine and Pathology [address] 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
--- OUTSIDE RECORDS SUMMARY | 2022-03-06 01:51 | XMS_ITS | Encounter Summary ---
:1975 Author Organization [facility] Address [address] [place] [address] Care Team Providers Name Role Phone Unavailable Primary Care Provider Unavailable Reason for Visit Reason Comments Moving Treatment Forward Encounter Details Date Type Department Care Team Description 05/20/2021 Clinical Communication Department of Walter Barnhart Treatment Oncology brittney De La Cruz M.D., Ph.D. Forward [place], [facility] [address] [place], [place] [address] [facility] [address] [place], [place] [phone] (Work) [phone] Social History Tobacco Use Types Packs/Day Years [...] 1 to 4 times per year 02/09 restorationism services? 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 [address] [place] [phone] 04/13/2022 Office Visit Oncology Walter Barnhart M.D., Ph.D. [address] [place] [phone] documented as of this encounter Visit Diagnoses Not on filedocumented in this encounter
--- OUTSIDE RECORDS SUMMARY | 2022-03-06 01:51 | XMS_ITS | Encounter Summary ---
:1975 Author Organization [facility] Address [address] [place] [address] Care Team Providers Name Role Phone Unavailable Primary Care Provider Unavailable Reason for Visit Reason Comments Intake Assessment Encounter Details Date Type Department Care Team Description 06/16/2021 Clinical Communication Department of Marychuy Kapoor Assessment Oncology in , [facility], C.N.P., M.S.N. [place] [address] [address] [facility] [address] [place] [phone] Social History Tobacco Use Types Packs/Day Years [...] or relatives? How often do you attend oriental orthodox or 1 to 4 times per year 02/09 confucianist services? Do you belong to any clubs or Yes 02/26/2021 organizations such as oriental orthodox groups, unions, fraternal or athletic groups, or [...] place to sleep or slept in a fpc (including now)? Education Answer Date Recorded What is the highest level of school Bachelor's degree (e.g., BA, AB, 02/26/2021 you have completed or the highest BS) degree you have received? 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 [address] [place] [phone] 04/13/2022 Office Visit Oncology Walter Barnhart M.D., Ph.D. [address] [place] [phone] documented as of this encounter Visit Diagnoses Not on filedocumented in this encounter
--- OUTSIDE RECORDS SUMMARY | 2022-03-06 01:51 | XMS_ITS | Encounter Summary ---
:1975 Author Organization [facility] Address [address] [place] [address] Care Team Providers Name Role Phone Unavailable Primary Care Provider Unavailable Encounter Details Date Type Department Care Team Description 05/27/2021 Orders Only Department of Oncology in Candie Monahan APRN[place], [place] C.N.P. [address] [facility] [address] [place] [address] [place], [place] [phone] (Wo rk) Social History Tobacco Use Types [...] 1 to 4 times per year 02/09 scientology services? Do you belong to any clubs or Yes 02/26/2021 organizations such as mormon groups, unions, fraternal or athletic groups, or school groups? How often do you attend meetings of the to 4 times per yea r 02/26/2021 [...] place to sleep or slept in a assisted (including now)? Education Answer Date Recorded What [...] Laboratory Medicine Debbie Ivey M.D. [address] [place] [phone] 04/13/2022 Office Visit Oncology Walter Barnhart M.D., Ph.D. [address] [place] [phone] documented as of this encounter Visit Diagnoses Not on filedocumented in this encounter
--- OUTSIDE RECORDS SUMMARY | 2022-03-06 01:51 | XMS_ITS | Encounter Summary ---
:1975 Author Organization [facility] Address [address] [place] [address] Care Team Providers Name Role Phone Unavailable Primary Care Provider Unavailable Reason for Visit Reason Comments Post Surgery, Chemo Questions Encounter Details Date Type Department Care Team Description 05/20/2021 Clinical Communication Department of Walter Barnhart [facility] Surgery, Chemo Oncology in [place], Ph.D. Questions [place], [facility] [address] [place], [place] [address] [facility] [address] [place], [place] [phone] (Work) [phone] Social History Tobacco Use Types Packs/Day Years [...] or relatives? How often do you attend samaritan or 1 to 4 times per year 02/09 taoism services? Do you belong to any clubs or Yes 02/26/2021 organizations such as samaritan groups, unions, fraternal or athletic groups, or [...] Laboratory Medicine Debbie Ivey M.D. [address] [place] [phone] 04/13/2022 Office Visit Oncology Walter Barnhart M.D., Ph.D. [address] [place] [phone] documented as of this encounter Visit Diagnoses Not on filedocumented in this encounter
--- OUTSIDE RECORDS SUMMARY | 2022-03-06 01:51 | XMS_ITS | Encounter Summary ---
:1975 Author Organization [facility] Address [address] [place] [address] Care Team Providers Name Role Phone Unavailable Primary Care Provider Unavailable Reason for Visit Reason Comments Communication Encounter Details Date Type Department Care Team Description 06/17/2021 Clinical Communication Department of System, Provider Communication Obstetrics and Not In Gynecology in [place], [place] [address] [place] [address] Social History Tobacco Use Types Packs/Day Years [...] 1 to 4 times per year 02/09 congregational services? Do you belong to any clubs [...] place to sleep or slept in a penitentiary (including now)? Education Answer Date Recorded What is the highest level of school Bachelor's degree (e.g., BA, AB, 02/26/2021 you have completed or the highest BS) degree you have received? Sex Assigned at Date Recorded Female 02/10/2021 8:20 AM CDT documented as of this encounter Miscellaneous Notes Telephone Encounter - Brenda Moise Carly - 06/17/2021 10:56 AM CST A message has been left for patient to return a call. She had sent a an on line message asking to reschedule her post op visit. Please assist with rescheduling with an NPPA for the post op visit. She will need to have a pelvic exam ER TECHNICIAN documented in this encounter Plan of Treatment Upcoming Encounters Date Type Specialty Care Team Description 04/11/2022 Clinical Communication Admitting/Central Scheduling 04/13/2022 Appointment Laboratory Medicine Debbie Ivey M.D. [address] [place] [phone] 04/13/2022 Office Visit Oncology Walter Barnhart M.D., Ph.D. [address] [place] [phone] documented as of this encounter Visit Diagnoses Not on filedocumented in this encounter
--- OUTSIDE RECORDS SUMMARY | 2022-03-06 01:51 | XMS_ITS | Encounter Summary ---
:1975 Author Organization [facility] Address [address] [place] [address] Care Team Providers Name Role Phone Unavailable Primary Care Provider Unavailable Encounter Details Date Type Department Care Team Description 05/20/2021 Orders Only Department of Obstetrics Zuri, and Gynecology in Natalie [place], [place] C.NAnthony., M.S. [address] [facility] [address] [place] [address] [place], [place] [phone] (Wo rk) Social History Tobacco Use Types [...] Laboratory Medicine Debbie Ivey M.D. [address] [place] [phone] 04/13/2022 Office Visit Oncology Walter Barnhart M.D., Ph.D. [address] [place] [phone] documented as of this encounter Visit Diagnoses Not on filedocumented in this encounter
--- OUTSIDE RECORDS SUMMARY | 2022-03-06 01:51 | XMS_ITS | Encounter Summary ---
:1975 Author Organization [facility] Address [address] [place] [address] Care Team Providers Name Role Phone Unavailable Primary Care Provider Unavailable Reason for Visit Reason Comments Intake Assessment Encounter Details Date Type Department Care Team Description 05/27/2021 Clinical Communication Department of Candie Moanhan Assessment Oncology in [facility] [address] [facility] [address] [place] [phone] Social History Tobacco Use Types Packs/Day Years [...] 1 to 4 times per year 02/09 yazdanism services? Do you belong to any clubs [...] this encounter Miscellaneous Notes Telephone Encounter - Jalyn Paul - 05/27/2021 11:22 AM CST Intake screening completed. SPERSON [employer]IGS documented in this encounter Plan of Treatment Upcoming Encounters Date Type Specialty Care Team Description 04/11/2022 Clinical Communication Admitting/Central Scheduling 04/13/2022 Appointment Laboratory Medicine Debbie Ivey M.D. [address] [place] [phone] 04/13/2022 Office Visit Oncology Walter Barnhart M.D., Ph.D. [address] [place] [phone] documented as of this encounter Visit Diagnoses Not on filedocumented in this encounter
--- OUTSIDE RECORDS SUMMARY | 2022-03-06 01:51 | XMS_ITS | Encounter Summary ---
:1975 Author Organization [facility] Address [address] [place] [address] Care Team Providers Name Role Phone Unavailable Primary Care Provider Unavailable Encounter Details Date Type Department Care Team Description 06/19/2021 Clinical Communication Department of Oncology Tala pride in [facility] rojelio Hernandez M.D. [address] [facility] [address] [place] [phone] Social History Tobacco Use Types Packs/Day Years [...] or relatives? How often do you attend scientology or 1 to 4 times per year 02/09 mandaeism services? Do you belong to any clubs or Yes 02/26/2021 organizations such as scientology groups, unions, fraternal or athletic groups, or [...] this encounter Miscellaneous Notes Telephone Encounter - Mary Romero M.D. - 06/19/2021 12:50 PM ORAL SURGERY ASSISTANT I received a call from the patient who had a question regarding her ANC count and whether she would be able to get treatment tomorrow. We discussed that even though deferring her treatment until ANC>1500 would be an acceptable medical decision to make, as she is fairly close to that margin (1270) and ANC are in an upward trajectory (they could conceivably be >1500 tomorrow) it may still be reasonable for her to be treated especially if the clinical scenario is such that maintaining dose-density is important. As the ultimate decision depends on her provider's judgement of these competing risks/benefits she will come in for her scheduled visit tomorrow and we will proceed from there. I will inform her team of the call. Mary Romero MD Hematology/Oncology Fellow [id number] 06/19/21 1:05 PM ORAL SURGERY ASSISTANT SURGERY ASSISTANT documented in this encounter Plan of Treatment Upcoming Encounters Date Type Specialty Care Team Description 04/11/2022 Clinical Communication Admitting/Central Scheduling 04/13/2022 Appointment Laboratory Medicine Debbie Ivey M.D. 200 [place] [phone] 04/13/2022 Office Visit Oncology Walter Barnhart M.D., Ph.D. [address] [place] [address] documented as of this encounter Visit Diagnoses Not on filedocumented in this encounter
--- OUTSIDE RECORDS SUMMARY | 2022-03-06 01:51 | XMS_ITS | Encounter Summary ---
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 [address] [facility] [address] [place] [phone] Referral ID Status Reason Start Date Expiration Date Visits V isits Requested Authorized [id number] Authorized 02/17/2021 02/17/2022 12 12 Encounter Details Date Type Department Care Team Description 05/29/2021 Hospital Encounter Department of Marychuy Kapoor Neoplasm Of Ovary Laterality Unknown (HCC); Laboratory Medicine DENNY Sanchez, C.N.PChapincito, Madhu munoz Drug Induced (HCC) in [facility] [address] [facility] [address] [place] [phone] Social History Tobacco Use Types Packs/Day Years [...] or relatives? How often do you attend amish or 1 to 4 times per year 02/09 muslim services? Do you belong to any clubs or Yes 02/26/2021 organizations such as amish groups, unions, fraternal or athletic groups, or [...] Sig Dispensed Refills Start Date End Date kuawcmy-tjjq-selyp-oreg- Take 1 tablet by 0 capryl 100 [...] HYDROmorphone (DILAUDID) Take 1 tablet (2 mg 10 tablet 0 06/16/2021 2 mg tabletIndications: total) by mouth Acute Pain every 6 (six) hours as needed for severe pain or [...] (especially while on narcotic pain medication). Vyvanse 70 mg capsule Take 70 mg by mouth 0 01/2408/10/2021 daily. documented as of this encounter Plan of Treatment Upcoming Encounters Date Type Specialty Care Team Description 04/11/2022 Clinical Communication Admitting/Central Scheduling 04/13/2022 Appointment Laboratory Medicine Debbie Ivey M.D. [address] [place] [phone] 04/13/2022 Office Visit Oncology Walter Barnhart M.D., Ph.D. [address] [place] [phone] documented as of this encounter Procedures Procedure Name Priority Date/Time Associated Comments Diagnosis CBC CHEMO - NO ALERTS Routine 05/29/2021 10:07 Malignant Neopl asm Results for this AM ECONOMICS INSTRUCTOR Of Ovary procedure are i n Laterality Unknown the resul ts (HCC) section. Neutropenia Drug Induced (HCC) CANCER AG 125 (CA 125), Routine 05/29/2021 10:07 Malignant Juan plasm Results for this S AM ECONOMICS INSTRUCTOR Of Ovary procedure are i n Laterality Unknown the resul ts (HCC) section. Neutropenia Drug Induced (HCC) ASPARTATE Routine 05/29/2021 10:07 Malignant Neoplasm Resul ts for this AMINOTRANSFERASE (AST), AM ECONOMICS INSTRUCTOR Of Ovary proc edure are in S/P Laterality Unknown the resul ts (HCC) section. Neutropenia Drug Induced (HCC) CREATININE WITH EGFR, Routine 05/29/2021 10:07 Malignant Neopl asm Results for this S/P AM ECONOMICS INSTRUCTOR Of Ovary procedure are i n Laterality Unknown the resul ts (HCC) section. Neutropenia Drug Induced (HCC) BILIRUBIN, TOT, S/P Routine 05/29/2021 10:07 Malignant Neoplas m Results for this AM ECONOMICS INSTRUCTOR Of Ovary procedure are i n Laterality Unknown the resul ts (HCC) section. Neutropenia Drug Induced (HCC) documented in this encounter Results Creatinine with Estimated GFR (05/29/2021 10:07 AM ECONOMICS INSTRUCTOR) P athologist Signature Creatinine 0.65 0.59 - 05/29/2021 NPRG 1.04 mg/dL 10:45 AM ECONOMICS INSTRUCTOR eGFR-Black/Afric >90 >=60 05/29/2021 NPRG an Niuean mL/min/BSA 10:45 AM ECONOMICS INSTRUCTOR Comment: ----ADDITIONAL INFORMATION---- Estimated GFR calculated using the 2009 CKD_EPI creatinine equation. eGFR Non-Black/ >90 >=60 mL/min/BSA 05/29/2021 10:45 AM ECONOMICS INSTRUCTOR NPRG Comment: ----ADDITIONAL INFORMATION---- Estimated GFR calculated using the 2009 CKD_EPI creatinine equation. Specimen Anatomical Collection Method Collection Time Receive d Time (Source) Location / / Volume Laterality Blood (Blood, 05/29/2021 10:07 05/29/2021 Venous) AM ECONOMICS INSTRUCTOR 10:22 AM ECONOMICS INSTRUCTOR Sabine Correa APRNNAnthony., M.S.N. LAB BLOOD ADD-ON Performing Organization Address City/[facility]/ZIP Code Phon e Number [place] [id number] [address] [facility] [place] [id number] (ABNORMAL) CBC, Chemotherapy, No Alerts (05/29/2021 10:07 AM ECONOMICS INSTRUCTOR) Analysis Performed At Patho logist Time Signature Hemoglobin 10.3 (L) 11.6 - 05/29/2021 NPRG 15.0 g/dL 10:40 AM ECONOMICS INSTRUCTOR Platelet Count 657 (H) 157 - 371 05/29/2021 NPRG x10(9)/L 10:40 AM ECONOMICS INSTRUCTOR Leukocytes 7.7 3.4 - 9.6 05/29/2021 NPRG x10(9)/L 10:40 AM ECONOMICS INSTRUCTOR Neutrophils 2.35 1.56 - 05/29/2021 NPRG 6.45 10:40 AM ECONOMICS INSTRUCTOR x10(9)/L Specimen Anatomical Collection Method Collection Time Receive d Time (Source) Location / / Volume Laterality Blood (Blood, 05/29/2021 10:07 05/29/2021 Venous) AM ECONOMICS INSTRUCTOR 10:22 AM ECONOMICS INSTRUCTOR Sabine Correa APRNNNesha, M.S.N. LAB BLOOD ADD-ON Performing Organization Address City/State/ZIP Code Phon e Number [place] [phone] [address] [facility] [place] [phone] Bilirubin, Total (05/29/2021 10:07 AM ECONOMICS INSTRUCTOR) P athologist Signature Bilirubin, <0.2 <=1.2 mg/dL 05/29/2021 NPRG Total, P 10:45 AM ECONOMICS INSTRUCTOR Specimen Anatomical Collection Method Collection Time Receive d Time (Source) Location / / Volume Laterality Blood (Blood, 05/29/2021 10:07 05/29/2021 Venous) AM ECONOMICS INSTRUCTOR 10:22 AM ECONOMICS INSTRUCTOR Carly Correa APRN.N.P., M.S.N. LAB BLOOD ADD-ON Performing Organization Address City/[facility]/ZIP Code Phon e Number [place] [phone] [address] [facility] [address] AST (Aspartate Aminotransferase) (05/29/2021 10:07 AM ECONOMICS INSTRUCTOR) Patholo gist Method Time Signature Aspartate 32 8 - 43 05/29/2021 NPRG Aminotransferase U/L 10:45 AM ECONOMICS INSTRUCTOR (AST), P Specimen Anatomical Collection Method Collection Time Receive d Time (Source) Location / / Volume Laterality Blood (Blood, 05/29/2021 10:07 05/29/2021 Venous) AM ECONOMICS INSTRUCTOR 10:22 AM ECONOMICS INSTRUCTOR Sabine Correa APRNN.Katie., M.S.N. LAB BLOOD ADD-ON Performing Organization Address [facility]/ZIP Code Phon e Number [place] [phone] [address] [facility] [place] [phone] Cancer Antigen 125 (CA 125) (05/29/2021 10:07 AM ECONOMICS INSTRUCTOR) P athologist Signature Cancer Ag 125 27 <46 U/mL 05/30/2021 AUST (CA 125), S 8:35 AM ECONOMICS INSTRUCTOR Comment: Biotin has been identified by the [facility] as a potential interfering substance. ??Higher concentr ations of biotin may be found in multivitamins, hair/nail supple ments, and workout supplements. ??If the result does not [facility] clinical observations, repeat testing after patient refrains [...] Location / / Volume Laterality Blood (Blood, 05/29/2021 10:07 05/29/2021 8:31 Venous) AM ECONOMICS INSTRUCTOR PM ECONOMICS INSTRUCTOR Sabine Correa APRNNAnthony., M.S.N. LAB BLOOD ADD-ON Performing Organization Address City/State/ZIP Code Phon e Number [facility]- [address] [place] [address] [facility] [place], [place] [id number] [place] [address] documented in this encounter Visit Diagnoses Diagnosis 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
--- OUTSIDE RECORDS SUMMARY | 2022-03-06 01:52 | XMS_ITS | Encounter Summary ---
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 [address] [facility] [address] [place] [phone] Social History Tobacco Use Types Packs/Day Years Used Date Smoking Tobacco: Never Smokeless Tobacco: Never Alcohol Habits Answer Date Recorded How often [...] or relatives? How often do you attend gnosticism or 1 to 4 times per year 02/09 pentecostal services? Do you belong to any clubs or Yes 02/26/2021 organizations such as gnosticism groups, unions, fraternal or athletic groups, or [...] Laboratory Medicine Debbie Ivey M.D. [address] [place] [phone] 04/13/2022 Office Visit Oncology Walter Barnhart M.D., Ph.D. [address] [place] [phone] documented as of this encounter Visit Diagnoses Diagnosis Malignant Neoplasm Of Ovary Laterality U nknown (HCC) - Primary Neutropenia Drug Induced (HCC) documented in this encounter
--- OUTSIDE RECORDS SUMMARY | 2022-03-06 01:52 | XMS_ITS | Encounter Summary ---
:[address] [facility] Address [address] [place] [address] Care Team Providers Name Role Phone Unavailable Primary Care Provider Unavailable Reason for Visit Reason Comments patient hospitalized locally Encounter Details Date Type Department Care Team Description 04/25/2021 Clinical Department of [place], patient hospit alized Communication Oncology in vitor Yuan M.SChapincitoNChapincito, R.N. [place] [address] [address] [facility] [address] [place] [phone] Social History Tobacco Use Types Packs/Day Years Used Date Smoking Tobacco: Never Smokeless Tobacco: Never Alcohol Use Standard Drinks/Week Comments Yes 1 (1 standard drink = 0.6 oz pure [...] Miscellaneous Notes Telephone Encounter - Mamie Rees M.SDayan., R.N. - 04/25/2021 4:09 PM REGISTERED HEALTH NURSE SUBJECTIVE CHIEF COMPLAINT / REASON FOR CALL patient hospitalized locally Information Discussed Spoke with Man. Constance is admitted in [place] with possible bowel obstruction/blockage from stool. Relayed that Dr. Oviedo did review imaging and there's probability she needs extensive stool clean out but that is ultimately up to local providers to manage. He was not sure if she was havingany elevated temps or not. Doctors have not rounded yet today. Advised that management of potentially infection would be again responsibility of [place] team. Since imaging and surgery pre op is scheduled with Dr. Oviedo on 05/03 we will only need a CT chest next week and will cancel the abdomen/pelvis. Man verbalizes understanding. PLAN Disposition/Recommendation: recommended continue engagement in self-management activities Information/Education: patient/caller able to teach back Caller agreeable to plan of care: yes The following references were used: nursing clinical judgement STERED HEALTH NURSE Telephone Encounter - Rene Bettencourt - 04/25/2021 2:41 PM CST Do we have a valid auth to speak with caller? Man Reason for call: Constance is hospitalized with a twisted intestine, Mna would like a steam tank operator to call him Thank you, Rene Gas Meter Repair Supervisor RST ONC [employer]'S AIDE POD 2 [facility] HE[facility] NURSE documented in this encounter Plan of Treatment Upcoming Encounters Date Type Specialty Care Team Description 04/11/2022 Clinical Communication Admitting/Central Scheduling 04/13/2022 Appointment Laboratory Medicine Debbie Ivey M.D. [address] [place] [phone] 04/13/2022 Office Visit Oncology Walter Barnhart M.D., Ph.D. [address] [place] [phone] documented as of this encounter Visit Diagnoses Not on filedocumented in this encounter Additional Health Concerns Infection Onset Date Last Indicated Resolved Time COVID19 Pending 04/25/2021 04/25/2021 04/25/2021 4:15 AM REGISTERED HEALTH NURSE documented as of this encounter
--- OUTSIDE RECORDS SUMMARY | 2022-03-06 01:52 | XMS_ITS | Encounter Summary ---
:1975 Author Organization [facility] Address [address] [place] [address] Care Team Providers Name Role Phone Unavailable Primary Care Provider Unavailable Reason for Visit Reason Comments Abdominal Pain Pt presents to ED with lower abdominal pain that radiates to bilateral flanks and lower back. Auth/Cert Specialty Diagnoses / Procedures Referred By Contact Refer red To Contact Diagnoses Obstruction Intestinal (HCC) Fever Of Unknown Origin Procedures Referral ID Status Reason Start Date Expiration Date Visits Requ ested Visits Authorized [id number] 1 1 Encounter Details Date Type Department Care Team Description 04/25/2021 Emergency [facility], Norma Mckay D.O. [address] [place] [address] Obstruction Intestinal (HCC) (Primary Dx ); [facility], Dat Rae M.D. [address] [place] [phone] Fever Of Unknown Origin Second Floor Latisha Quintanilla M.D. [address] [place] [phone] [address] [place] [address] Social History Tobacco Use Types Packs/Day Years [...] or relatives? How often do you attend baptist or 1 to 4 times per year 02/09 christianity services? Do you belong to any clubs or Yes 02/26/2021 organizations such as baptist groups, unions, fraternal or athletic groups, or [...] Sign Reading Time Taken Comments Blood Pressure 111/63 04/25/2021 8:42 AM INDIVIDUAL PENSION ADVISER Pulse 82 04/25/2021 8:42 AM INDIVIDUAL PENSION ADVISER Temperature 37.7 ??C (99.9 ??F) 04/25/2021 8:42 AM INDIVIDUAL PENSION ADVISER Respiratory Rate 16 04/25/2021 8:42 AM INDIVIDUAL PENSION ADVISER Oxygen Saturation 97% 04/25/2021 8:42 AM INDIVIDUAL PENSION ADVISER Inhaled Oxygen Concentration - - Weight 59.5 kg (131 lb 2.8 oz) 04/25/2021 5:00 AM INDIVIDUAL PENSION ADVISER Height 170.2 cm (5' 7.01) 04/25/2021 5:00 AM INDIVIDUAL PENSION ADVISER Body Mass Index 20.54 04/25/2021 5:00 AM INDIVIDUAL PENSION ADVISER documented in this encounter Discharge Summaries Latisha Quintanilla M.D. - 04/25/2021 4:54 PM CST DISCHARGE SUMMARY BRIEF OVERVIEW Hospital: [facility] Discharge Provider: Latisha Quintanilla M.D. No primary care provider on file. Primary Care Provider Phone Number: None Primary Care Provider Fax Number: None Other Providers: Dr. Dat Rae. Admission Date: 04/25/2021 Discharge Date: 04/25/2021 PRINCIPAL DIAGNOSIS Obstruction Intestinal (HCC) SECONDARY DIAGNOSES Principal Problem: Obstruction Intestinal (HCC) Resolved Problems: * No resolved hospital problems. * DISCHARGE DISPOSITION Home or Self Care [1] ACTIVE ISSUES REQUIRING FOLLOW UP #1 Obstruction Intestinal (HCC) -- Please continue to gently advanced diet as tolerated. -- Please follow-up with primary care provider/team within 1 week for a recheck. -- Please return to the Emergency Department (ED) if your symptoms worsen or if you develop new concerning symptoms. OUTPATIENT FOLLOW UP Scheduled Appointments 05/02/2021 10:20 AM LAB 01 [facility] Laboratory Medicine 05/02/2021 3:[address] [facility] Radiology 05/03/2021 10:45 AM Denisha Oviedo M.D. Gynecology 05/03/2021 1:20 PM Marychuy Kapoor APRN, C.N.P., M.S.N. Oncology 05/04/2021 8:30 AM ONC CHAIR CHEMO [facility] For appointment details refer to your Patient Appointment Guide. TEST RESULTS PENDING AT DISCHARGE Pending Labs Order Current Status Bacteria / Ebony Culture, Blood #1 In process Bacteria / Ebony Culture, Blood #2 In process DETAILS OF HOSPITAL STAY REASON FOR ADMISSION Obstruction Intestinal (HCC) Fever Of Unknown Origin HOSPITAL COURSE Angelica Yang is a 45 year old female with ovarian cancer (on chemotherapy) and Neulasta associated leukocytosis. On 04/25/2021, she presented to the [facility] ED for persistent lower abdominal pain radiating to her back. No fevers or chills. CT abdomen pelvis suggested partial small bowel obstruction. She was admitted for IV hydration and bowel rest. Given absence of nausea or vomiting, NGtube placement was deferred. Her symptoms improved and she started to pass gas. She tolerated clearsand her diet was advanced. Patient requested early discharge. She was discharged on 04/25/2021 with a plan for close follow-up. VITALS (24 HOUR RANGE) Temperature: [37.1 ??C-39 ??C] 37.7 ??C Resp Rate: [16-18] 16 Blood Pressure: (106-123)/(62-77) 111/63 SpO2: [95 %-98 %] 97 % Height: [170.2 cm] 170.2 cm Weight: [59.5 kg-62 kg] 59.5 kg BSA (Calculated - sq m): [1.68 sq meters-1.71 sq meters] 1.68 sq meters BMI (Calculated): [20.5 kg/m??-21.4 kg/m??] 20.5 kg/m?? Pulse Rate: [79-98] 82 LABORATORY Recent Results (from the past 24 hour(s)) Urinalysis with Microscopic if Indicated Collection Time: 04/25/21 1:38 AM Result Value Source Urine, Urine, Clean Catch Clarity Clear Color Yellow Blood Negative Nitrite Negative Leukocyte Esterase Negative Protein Negative Glucose Negative Ketones, QI(U) Negative Bilirubin Negative pH 8.5 (A) Specific Bartelso 1.020 Urobilinogen 0.2 Lactate, baseline Collection Time: 04/25/21 1:58 AM Result Value Lactate, P 0.8 CBC with Differential, Blood Collection Time: 04/25/21 1:58 AM Result Value Hemoglobin 11.5 (L) Hematocrit 35.1 (L) Erythrocytes 3.90 (L) MCV 90.0 RBC Distrib Width 16.3 (H) Platelet Count 213 Leukocytes 17.0 (H) Neutrophils 14.34 (H) Lymphocytes 1.34 Monocytes 1.26 (H) Eosinophils 0.05 Basophils 0.05 Comprehensive Metabolic Panel Collection Time: 04/25/21 1:58 AM Result Value Potassium, P 4.3 Sodium, P 135 Chloride, P 101 Bicarbonate, P 25 Anion Gap, P 9 BUN (Blood Urea Nitrogen), P 16 Creatinine, P 0.75 eGFR-Black/ >90 eGFR Non-Black/ >90 Calcium, Total, P 9.6 Glucose, P 105 Protein, Total, P 7.4 Albumin, P 4.5 Aspartate Aminotransferase (AST), P 37 Alkaline Phosphatase, P 116 (H) Alanine Aminotransferase (ALT), P 28 Bilirubin, Total, P 0.2 CRP (C-Reactive Protein) Collection Time: 04/25/21 1:58 AM Result Value C-Reactive Protein (CRP), P 8.3 (H) SARS Coronavirus 2, PCR Rapid, V Symptomatic Collection Time: 04/25/21 3:20 AM Specimen: Nasopharynx; Varies Result Value SARS CoV-2, PCR, Rapid, V Undetected SARS Coronavirus 2, Source, Rapid Swab, Nasopharynx CONSULTS ORDERED DURING THIS ADMISSION None CONDITION AT DISCHARGE improved Discharge instructions were provided to the patient and caregiver(s). Latisha Quintanilla M.D. Family Medicine, [address] [address] VIDUAL PENSION ADVISER documented in this encounter Medications at Time of Discharge Medication Sig Dispensed Refills Start Date End Date mxmioff-gulj-jkovu-oreg- Take 1 tablet by 0 capryl 100 mg-150 mg- 50 mouth daily. mg-150 mg capsule acetylcysteine (NAC) 600 Take 600 mg by mouth 0 08/10/2021 mg capsule 2 (two) times a day. ascorbic acid, vitamin Take 500 mg by mouth 0 08/10/2021 C, (VITAMIN C) 500 mg daily. tablet ondansetron (ZOFRAN) 8 Take 1 tablet (8 [...] score 1-3 of 10, headaches or fever. apixaban (ELIQUIS) 2.5 Take 1 tablet (2.5 48 tablet 0 05/1308/10/2021 mg tablet mg total) by mouth 2 (two) times a day for 24 days. cyclobenzaprine Take 1 tablet (5 mg 10 [...] 10 Indication: acute pain. ibuprofen (ADVIL,MOTRIN) Take 200 mg by mouth 0 05/14/2021 200 mg tablet every 6 (six) hours as needed. ibuprofen (ADVIL,MOTRIN) Take 3 tablets (600 0 [...] documented as of this encounter Progress Notes Tara Grissom, Pharm.D., R.Ph. - 04/25/2021 9:29 AM CST Pharmacist Progress Note Reason for admission: Partial bowel obstruction PMH: Ovarian cancer currently under treatment (carboplatin/paclitaxel) OBJECTIVE Home medications: ?? Held: Tumeric, progesterone (note patient does not take progesterone per RN) ?? Changed: N/A Patient own medications: N-acetylcysteine oral capsules, lisdexamfetamine Prophylaxis: None currently ASSESSMENT / PLAN 1. Partial bowel obstruction ?? IV fluids, NPO 2. Home medications ?? Pharmacy does not carry N-acetylcysteine capsules or lisdexamfetamine ?? Patient inquiring on bringing in home medications - if unable to obtain may need to consider ordering in, noting patient is observation status currently Changes to medications anticipated at discharge: TBD Manasa Grissom Pharm.D., R.Ph. VIDUAL PENSION ADVISER documented in this encounter H&P Notes Dat Rae M.D. - 04/25/2021 6:04 AM CST SUBJECTIVE CHIEF COMPLAINT Patient is a 45 y.o. female who presents complain of lower abdominal pain with radiation to back. Seen in ER with noted partial small-bowel obstruction.. HISTORY OF PRESENT ILLNESS Angelica Yang is a 45 y.o. female was seen emergency room today for evaluation persistent lower abdominal pain with radiation to back. Noted to have history of advanced stage ovarian cancer diagnosed recently. Being followed in [place] and undergoing chemotherapy. Last chemotherapy was 10 days ago and she was given Neulasta also. No fever no chills noted. Workup shows partial small- bowel obstruction. Please see ER visit notes for further details. Lab results essentially within normal limits. CT of abdomen pelvis suggestive of partial small-bowel obstruction. Will be admitted with hydration and bowel rest. Patient relates that she feeling much better late about a 1 on a scale of 0-10. Question able fever earlier. History reviewed. No pertinent past medical history. Past Surgical History: Procedure Laterality Date ??? BLADDER REPAIR Bladder sling surgery for stress incontinence The following portions of the patient's history were reviewed and updated as appropriate: allergies,current medications, family history, medical history, social history, surgical history and problem list. REVIEW OF SYSTEMS Positive for lower abdominal discomfort and radiation of pain to lower back. No nausea no vomiting. No chest pain chest tightness or any shortness. No urine symptoms. Had a bowel movement yesterday normal. Patient tries to remain active and does quite a bit of exercising. OBJECTIVE VITAL SIGNS Height: 170.2 cm, Weight: 59.5 kg, BMI (Calculated): 20.5 kg/m??, Blood Pressure: 106/66, Pulse Rate: 79, Resp Rate: 16, Temperature: 37.4 ??C, SpO2: 96 % PHYSICAL EXAM In no acute distress. Very pleasant HEENT: Eyes: Normal. Nose no congestion. Tongue moist Neck: Supple normal range of motion CVS: Normal sinus rhythm no murmur Respiratory: Clear anteriorly/posteriorly. Unlabored breathing Abdomen: Soft benign flat. Bowel sounds minimal Extremities: Upper and lower extremities has full range of motion with adequate strength Psychiatric: Mood and affect within normal limits DIAGNOSTICS I have reviewed the labs and diagnostics from admission. ASSESSMENT / PLAN #1 Obstruction Intestinal (HCC) 2. Ovarian cancer currently under treatment 3. Fever--resolved Patient will be admitted and given IV fluids and bowel rest for the time being. Essentially NPO except for ice chips for now. Consider follow-up with Dr. Oconnor. She will be followed by hospitalist forthe week later this morning. When seen in room, patient relates that her discomfort is much improvedand rate about a 1 on a scale of 0-10. Mid under observation status. Review past medical history andmedication list. Also reviewed ER visit notes and lab result. I wish patient well. VIDUAL PENSION ADVISER documented in this encounter Nursing Notes Jaimee Starks R.N. - 04/25/2021 5:26 PM CST INPATIENT NURSING DISCHARGE SUMMARY Discharge Provider: Latisha Quintanilla M.D. Admission Date: 04/25/2021 Discharge Date: 04/25/2021 DISCHARGE DISPOSITION Home/Self Care CONDITION AT DISCHARGE stable TREATMENTS None DEVICES/EQUIPMENT None PROFESSIONAL SKILLED SERVICES None MODE OF DISCHARGE Ambulatory TRANSPORTATION Private Vehicle ACCOMPANIED BY Spouse All belongings sent home with patient. AVS reviewed. All questions answered. Electronically signed by: Jaimee Starks R.N. 04/25/21 5:41 PM INDIVIDUAL PENSION ADVISER VIDUAL PENSION ADVISER Jaimee Starks R.N. - 04/25/2021 5:23 PM CST Shift Goals: Clinical Goals for the Shift: orientate to unit, pain management, safety, IV fluids Identify possible barriers to meeting goals/advancing plan of care: none End of Shift Summary: Pt alert and oriented x3 throughout visit. Pt denies pain to abd and toleratesclear liquid diet. Diet advanced to regular without difficulty. Pt afebrile throughout shift. Pt discharge to home at 1720. Electronically signed by: Jaimee Starks R.N. 04/25/21 5:25 PM INDIVIDUAL PENSION ADVISER VIDUAL PENSION ADVISER Ally Smith R.N. - 04/25/2021 6:43 AM CST Problem: PAIN - ADULT Goal: PT VERBALIZES/DEMONSTRATES ADEQUATE COMFORT LEVEL OR BASELINE Outcome: Progressing Problem: KNOWLEDGE DEFICIT Goal: Patient/family/caregiver demonstrates understanding of disease process, treatment plan, medications, and discharge instructions Outcome: Progressing Problem: INFECTION - ADULT Goal: Absence of infection during hospitalization Outcome: Progressing Problem: SKIN/TISSUE INTEGRITY Goal: Skin/Tissue integrity maintained or improved Outcome: Progressing Problem: SAFETY ADULT Goal: Maintain a safe environment Outcome: Progressing Shift Goals: Rest Identify possible barriers to meeting goals/advancing plan of care: None End of Shift Summary: Pt admitted at this am observation with a partial bowel obstruction. Pt alert and oriented X3. Vital signs stable. Patient is NPO but can have ice chips per MD. Pts is calm and pleasant. Pt got little rest last night. No concerns, nursing will continue to monitor. Electronically signed by: Aurelia Smith R.N. 04/25/21 6:46 AM INDIVIDUAL PENSION ADVISER VIDUAL PENSION ADVISER documented in this encounter ED Notes Federica Mckay D.O. - 04/25/2021 1:38 AM CST [facility] EMERGENCY DEPARTMENT ENCOUNTER Patient Name: Angelica Yang Birthdate 1975 Date of evaluation: 04/25/2021 Provider: Federica Mckay D.O. PCP: No primary care provider on file. SUBJECTIVE CHIEF COMPLAINT/REASON FOR VISIT Abdominal Pain (Pt presents to ED with lower abdominal pain that radiates to bilateral flanks and lower back. ) HISTORY OF PRESENT ILLNESS Angelica Yang is a 45 y.o. female who presents to the emergency department for evaluation of lower abdominal pain and fever. Patient with a history of advanced stage high-grade serous ovarian cancer diagnosed 2.5 months ago. She is currently being treated with chemotherapy. Her last chemo was 10 days ago. She received Neulasta 9 days ago. Patient has been trying to gradually increase her activity and she was using the elliptical machine this afternoon. She was working out with slightly more exertion than normal and started to develop lower abdominal pain while working out around 15:30. Symptoms continue to worsen throughout the day. Tonight she developed severe chills. She attempted to take her temperature at home but the thermometer was not working. With her increasing abdominal pain and chills, she came to the ED for evaluation. No nausea or vomiting. Her last bowel movement was this morning. She has not been passing flatus since symptoms started. No dysuria. Pain does radiate to her low back. No flank pain. Mild headache. Patient has not taken any medication at home for pain or fever. Pain is worse with movement and better lying still. REVIEW OF SYSTEMS Constitutional: Positive for fever. Skin: Negative for skin rash. Eyes: Negative for visual problems. ENT: No sore throat or nasal congestion. No change in taste or smell. Respiratory: Negative for dry cough and dyspnea. Cardiovascular: Negative for chest pain, pressure or tightness. Gastrointestinal: Positive for abdominal (belly) pain or cramping. Negative for blood in stool, diarrhea, nausea and vomiting. Genitourinary: Negative for difficulty urinating, pain with urination, urgency and frequent urination. Musculoskeletal: Positive for back pain (Lumbar). Neurological: Positive for headaches. MEDICAL HISTORY History reviewed. No pertinent past medical history. SOCIAL HISTORY Social History Tobacco Use ??? Smoking status: Never Smoker ??? Smokeless tobacco: Never Used Substance Use Topics ??? Alcohol use: Yes Alcohol/week: 1.0 standard drink Types: 1 Glasses of wine per week OBJECTIVE VITAL SIGNS BP 117/71 Pulse 84 Temp 37.6 ??C (Oral) Resp 16 Ht 170.2 cm Wt 62 kg SpO2 95% BMI 21.41 kg/m?? PHYSICAL EXAMINATION Vitals and nursing note reviewed. HENT Head: Normocephalic. Mouth/Throat: Mouth: Mucous membranes are moist. Eyes Conjunctiva/sclera: Conjunctivae normal. Cardiovascular Rate and Rhythm: Normal rate and regular rhythm. Pulmonary Effort: Pulmonary effort is normal. Breath sounds: Normal breath sounds. Comments: No cough Abdominal General: Abdomen is flat. There is no distension. Palpations: Abdomen is soft. Tenderness: There is abdominal tenderness (Midline from umbilicus to suprapubic area. No McBurney'spoint tenderness. No upper abdominal tenderness.). There is no right CVA tenderness or left CVA tenderness. Musculoskeletal Cervical back: Neck supple. Right lower leg: No edema. Left lower leg: No edema. Skin General: Skin is warm and dry. Capillary Refill: Capillary refill takes less than 2 seconds. Neurological Mental Status: She is alert and oriented to person, place, and time. Psychiatric Mood and Affect: Mood normal. Behavior: Behavior normal. Behavior is cooperative. DIAGNOSTICS LABS: Labs Reviewed CBC WITH DIFFERENTIAL, B - Abnormal Result Value Hemoglobin 11.5 (*) Hematocrit 35.1 (*) Erythrocytes 3.90 (*) MCV 90.0 RBC Distrib Width 16.3 (*) Platelet Count 213 Leukocytes 17.0 (*) Neutrophils 14.34 (*) Lymphocytes 1.34 Monocytes 1.26 (*) Eosinophils 0.05 Basophils 0.05 COMPREHENSIVE METABOLIC PANEL, S/P - Abnormal Potassium, P 4.3 Sodium, P 135 Chloride, P 101 Bicarbonate, P 25 Anion Gap, P 9 BUN (Blood Urea Nitrogen), P 16 Creatinine, P 0.75 eGFR-Black/ >90 eGFR Non-Black/ >90 Calcium, Total, P 9.6 Glucose, P 105 Protein, Total, P 7.4 Albumin, P 4.5 Aspartate Aminotransferase (AST), P 37 Alkaline Phosphatase, P 116 (*) Alanine Aminotransferase (ALT), P 28 Bilirubin, Total, P 0.2 URINALYSIS WITH MICROSCOPIC IF INDICATED, U - Abnormal Source Urine, Urine, Clean Catch Clarity Clear Color Yellow Blood Negative Nitrite Negative Leukocyte Esterase Negative Protein Negative Glucose Negative Ketones, QI(U) Negative Bilirubin Negative pH 8.5 (*) Specific Bartelso 1.020 Urobilinogen 0.2 C-REACTIVE PROTEIN (CRP), S/P - Abnormal C-Reactive Protein (CRP), P 8.3 (*) BACTERIA / EBONY CULTURE, BLOOD BACTERIA / EBONY CULTURE, BLOOD SARS CORONAVIRUS 2, PCR RAPID, V LACTATE, B/P Lactate, P 0.8 LACTATE, B/P RADIOLOGY: CT Abdomen Pelvis with IV Contrast (Results Pending) vRad: Developing small bowel obstruction. Malignancy stable to decreasing. EMERGENCY DEPARTMENT COURSE and DIFFERENTIAL DIAGNOSIS/MDM: Patient was given the following medications: Medications sodium chloride 0.9 % flush 100 mL (100 mL intravenous Given 04/25/21227) acetaminophen tablet 1,000 mg (TYLENOL) (1,000 mg oral Given 04/25/21228) MDM: Patient presents to the emergency department for evaluation of lower abdominal pain. On examination she has midline lower abdominal tenderness without peritoneal findings. No McBurney's point tenderness. Labs reveal a leukocytosis with a neutrophil predominance, but she is 9 days post Neulasta. It is difficult to know if this is acute or down trending. Her CRP is very minimally elevated and lactate is normal. Urinalysis normal. CMP normal. She has a mild anemia. Patient had chills at home but was unable to measure her temperature. Upon arrival a temporal scan was abnormal at 39??, but patient was wearing a beanie. Soon after a temperature was repeated orally and improved but still elevated at 37.9??. Patient was given Tylenol for pain and low-grade fever. With her history of malignancy and acute lower abdominal pain, a CT abdomen and pelvis was performed. I spoke with the radiologist to noted findings concerning for developing small-bowel obstruction. With her partial small-bowel obstruction an oncologic history with low-grade fever, I did contact Oncology in [place] where she doctors, and spoke with the on-call physician Dr. Sadler regarding admitting locally verses transfer to [facility]. Dr. Sadler noted that obstructions due to the ovarian malignancies typically do very well with conservative management, and is reasonable to admit locally. She would not start empiric antibiotics at this time for a fever. See if the patient will declare herself. Recommends Zosyn if patient is worsening. I spoke with the charge nurse and confirm that Dr. Oconnor is here tomorrow if a surgical consult is needed. I spoke with Dr. Rae, hospitalist, who graciously accepts the patient. FINAL IMPRESSION: 1. Obstruction Intestinal (HCC) 2. Fever Of Unknown Origin Federica Mckay D.O. Federica Mckay D.O. 04/25/[address]40 VIDUAL PENSION ADVISER documented in this encounter Miscellaneous Notes Hospital Course - Latisha Quintanilla M.D. - 04/25/2021 4:51 PM CST Angelica Yang is a 45 year old female with ovarian cancer (on chemotherapy) and Neulasta associated leukocytosis. On 04/25/2021, she presented to the [facility] ED for persistent lower abdominal pain radiating to her back. No fevers or chills. CT abdomen pelvis suggested partial small bowel obstruction. She was admitted for IV hydration and bowel rest. Given absence of nausea or vomiting, NGtube placement was deferred. Her symptoms improved and she started to pass gas. She tolerated clearsand her diet was advanced. Patient requested early discharge. She was discharged on 04/25/2021 with a plan for close follow-up. VITALS (24 HOUR RANGE) Temperature: [37.1 ??C-39 ??C] 37.7 ??C Resp Rate: [16-18] 16 Blood Pressure: (106-123)/(62-77) 111/63 SpO2: [95 %-98 %] 97 % Height: [170.2 cm] 170.2 cm Weight: [59.5 kg-62 kg] 59.5 kg BSA (Calculated - sq m): [1.68 sq meters-1.71 sq meters] 1.68 sq meters BMI (Calculated): [20.5 kg/m??-21.4 kg/m??] 20.5 kg/m?? Pulse Rate: [79-98] 82 LABORATORY Recent Results (from the past 24 hour(s)) Urinalysis with Microscopic if Indicated Collection Time: 04/25/21 1:38 AM Result Value Source Urine, Urine, Clean Catch Clarity Clear Color Yellow Blood Negative Nitrite Negative Leukocyte Esterase Negative Protein Negative Glucose Negative Ketones, QI(U) Negative Bilirubin Negative pH 8.5 (A) Specific Bartelso 1.020 Urobilinogen 0.2 Lactate, baseline Collection Time: 04/25/21 1:58 AM Result Value Lactate, P 0.8 CBC with Differential, Blood Collection Time: 04/25/21 1:58 AM Result Value Hemoglobin 11.5 (L) Hematocrit 35.1 (L) Erythrocytes 3.90 (L) MCV 90.0 RBC Distrib Width 16.3 (H) Platelet Count 213 Leukocytes 17.0 (H) Neutrophils 14.34 (H) Lymphocytes 1.34 Monocytes 1.26 (H) Eosinophils 0.05 Basophils 0.05 Comprehensive Metabolic Panel Collection Time: 04/25/21 1:58 AM Result Value Potassium, P 4.3 Sodium, P 135 Chloride, P 101 Bicarbonate, P 25 Anion Gap, P 9 BUN (Blood Urea Nitrogen), P 16 Creatinine, P 0.75 eGFR-Black/ >90 eGFR Non-Black/ >90 Calcium, Total, P 9.6 Glucose, P 105 Protein, Total, P 7.4 Albumin, P 4.5 Aspartate Aminotransferase (AST), P 37 Alkaline Phosphatase, P 116 (H) Alanine Aminotransferase (ALT), P 28 Bilirubin, Total, P 0.2 CRP (C-Reactive Protein) Collection Time: 04/25/21 1:58 AM Result Value C-Reactive Protein (CRP), P 8.3 (H) SARS Coronavirus 2, PCR Rapid, V Symptomatic Collection Time: 04/25/21 3:20 AM Specimen: Nasopharynx; Varies Result Value SARS CoV-2, PCR, Rapid, V Undetected SARS Coronavirus 2, Source, Rapid Swab, Nasopharynx VIDUAL PENSION ADVISER documented in this encounter Plan of Treatment Upcoming Encounters Date Type Specialty Care Team Description 04/11/2022 Clinical Communication Admitting/Central Scheduling 04/13/2022 Appointment Laboratory Medicine Debbie Ivey M.D. [address] [place] [phone] 04/13/2022 Office Visit Oncology Walter Barnhart M.D., Ph.D. [address] [place] [phone] documented as of this encounter Procedures Procedure Name Priority Date/Time Associated Comments Diagnosis ADULT OXYGEN THERAPY Routine 04/25/2021 5:50 AM INDIVIDUAL PENSION ADVISER SARS CORONAVIRUS 2, STAT 04/25/2021 3:20 Resul ts for PCR RAPID, V AM INDIVIDUAL PENSION ADVISER this procedure are in the results section. CT ABDOMEN PELVIS RAD - Semiurgent 04/25/2021 2:27 Res ults for WITH IV CONTRAST (Fast; most ED AM INDIVIDUAL PENSION ADVISER this proc edure patients; some are in the inpatients) results section. BACTERIA / EBONY STAT 04/25/2021 2:07 Result s for CULTURE, BLOOD AM INDIVIDUAL PENSION ADVISER this procedur e are in the results section. BACTERIA / EBONY STAT 04/25/2021 1:58 Result s for CULTURE, BLOOD AM INDIVIDUAL PENSION ADVISER this procedur e are in the results section. CBC WITH STAT 04/25/2021 1:58 Results for DIFFERENTIAL, B AM INDIVIDUAL PENSION ADVISER this procedu re are in the results section. C-REACTIVE PROTEIN STAT 04/25/2021 1:58 Result s for (CRP), S/P AM INDIVIDUAL PENSION ADVISER this procedure are in the results section. LACTATE, B/P STAT 04/25/2021 1:58 Results for AM INDIVIDUAL PENSION ADVISER this procedure are in the results section. COMPREHENSIVE STAT 04/25/2021 1:58 Results for METABOLIC PANEL, S/P AM INDIVIDUAL PENSION ADVISER this pr ocedure are in the results section. URINALYSIS WITH STAT 04/25/2021 1:38 Results f or MICROSCOPIC IF AM INDIVIDUAL PENSION ADVISER this procedur e INDICATED, U are in the results section. documented in this encounter Results SARS Coronavirus 2, PCR Rapid, V Symptomatic (04/25/2021 3:20 AM INDIVIDUAL PENSION ADVISER) [facility] Method Time Signature SARS CoV-2, Undetected Undetected 04/25/2021 NPRG PCR, Rapid, V 4:15 AM INDIVIDUAL PENSION ADVISER Comment: ----ADDITIONAL INFORMATION---- This RT-PCR test was performed using the Gayle SARS-CoV-2 and Influenza A/B Reagent assay from [employer], which has received Emergency Use Authori zation(EUA) by the U.S. Food and Drug Administration . Fact sheets for this Emergency Use Autho rization (EUA) assay can be found at the following link s: For Healthcare Providers: https://www.fda.gov/media/376527/downloa d For Patients: https://www.fda.gov/media/424219/downloa d SARS Coronavirus 2, Source, Rapid Swab, Nasopharynx 04/25/2021 3:48 AM INDIVIDUAL PENSION ADVISER NPRG Specimen Anatomical Collection Method Collection Time Receive d Time (Source) Location / / Volume Laterality Varies 04/25/2021 3:20 AM 3:48 (Nasopharynx) INDIVIDUAL PENSION ADVISER AM INDIVIDUAL PENSION ADVISER Fedeirca Mckay D.O. LAB MICROBIOLOGY - GENERAL O RDERABLES Performing Organization Address City/State/ZIP Code Phon e Number [facility]- [address] [place], [place] [address] [facility] NPRG [facility] [place] [address] Abdomen Pelvis with IV Contrast (04/25/2021 2:27 AM INDIVIDUAL PENSION ADVISER) Anatomical Region Laterality Modality Abdomen, Pelvis, Abdominal RST LOS, Abdominal ARZ LOS, N/A Computed Tomography Abdominal FLA LOS Specimen (Source) Anatomical Collection Method Collection Time Re ceived Time Location / / Volume Laterality 04/25/2021 8:33 AM INDIVIDUAL PENSION ADVISER Impressions 04/25/2021 8:46 AM INDIVIDUAL PENSION ADVISER 1. Interval size decrease of cystic septated pelvic masses (biopsy-proven malignancy). Interval improvement of per itoneal metastatic disease with interval decrease in ascites. 2. Previously seen hepatic metastatic di sease and subdiaphragmatic implants have significantly improved. 3. Upper normal caliber small bowel loop s without transition or focal inflammatory process identified. If ther e is clinical concern for bowel obstruction contrast administration with small bowel follow-through could be considered. Extensive stool throughout t he colonic distribution. 4. Nonobstructing 3 mm right renal colle cting system calculus. Narrative 04/25/2021 8:46 AM INDIVIDUAL PENSION ADVISER EXAM: CT ABDOMEN PELVIS WITH IV CONTRAST COMPARISON: February 23, 2021 and prior FINDINGS: Visualized portions of the trish g bases are clear. No acute abnormality of the spleen, panc reas, contracted gallbladder or adrenal glands. Previously seen hepatic metastatic disea se and subdiaphragmatic implants along the superior margin of the liver have si gnificantly improved. There is a subcentimeter hypoattenuating focus, cys tic density, involving the medial aspect of the superior right lobe of the liver which is unchanged. The kidneys enhance symmetrically. No sahu spicious lesion or obstructive uropathy. There is a nonobstructing 3 mm right beronica al collecting system calculus. The aorta and mesenteric vasculature enh ance normally. No acute inflammatory changes of upper n ormal caliber bowel loops. There is no discrete transition point identified. Th e appendix is air-filled and measures up to 7 mm in diameter. No regional inflamm atory changes. Heterogeneous enhancement of the uterus. Septated cystic pelvic mass has significantly decreased in size. Small a mount of pelvic ascites. Urinary bladder nondistended. There is no acute osseous abnormality or suspicious lytic/sclerotic osseous lesion. vRad: ??Findings concordant with prelimi oliverio vRad report. Procedure Note Fabrizio Vargas M.D. - 04/25/2021Forma tting of this note might be different from the original. EXAM: CT ABDOMEN PELVIS WITH IV CONTRAST COMPARISON: February 23, 2021 and prior FINDINGS: Visualized portions of the trish g bases are clear. No acute abnormality of the spleen, panc reas, contracted gallbladder or adrenal glands. Previously seen hepatic metastatic disea se and subdiaphragmatic implants along the superior margin of the liver have si gnificantly improved. There is a subcentimeter hypoattenuating focus, cys tic density, involving the medial aspect of the superior right lobe of the liver which is unchanged. The kidneys enhance symmetrically. No sahu spicious lesion or obstructive uropathy. There is a nonobstructing 3 mm right beronica al collecting system calculus. The aorta and mesenteric vasculature enh ance normally. No acute inflammatory changes of upper n ormal caliber bowel loops. There is no discrete transition point identified. Th e appendix is air-filled and measures up to 7 mm in diameter. No regional inflamm atory changes. Heterogeneous enhancement of the uterus. Septated cystic pelvic mass has significantly decreased in size. Small a mount of pelvic ascites. Urinary bladder nondistended. There is no acute osseous abnormality or suspicious lytic/sclerotic osseous lesion. vRad: Findings concordant with prelimina ry vRad report. IMPRESSION: 1. Interval size decrease of cystic sept ated pelvic masses (biopsy-proven malignancy). Interval improvement of per itoneal metastatic disease with interval decrease in ascites. 2. Previously seen hepatic metastatic di sease and subdiaphragmatic implants have significantly improved. 3. Upper normal caliber small bowel loop s without transition or focal inflammatory process identified. If ther e is clinical concern for bowel obstruction contrast administration with small bowel follow-through could be considered. Extensive stool throughout t he colonic distribution. 4. Nonobstructing 3 mm right renal colle cting system calculus. Federica DONNELLY CT PROCEDURES Bacteria / Ebony Culture, Blood #1 (04/25/2021 2:07 AM INDIVIDUAL PENSION ADVISER) Patholo gist Method Time Signature Bacteria/[place] No growth 04/30/2021 NPRG da Culture, after 5 3:03 AM INDIVIDUAL PENSION ADVISER Blood day/s of incubation. Specimen (Source) Anatomical Collection Method Collection Time Re ceived Time Location / / Volume Laterality Blood (Blood, 04/25/2021 2:07 04/25/2021 2:32 Peripheral Draw) AM INDIVIDUAL PENSION ADVISER AM INDIVIDUAL PENSION ADVISER Comment: Specimen Source Site: Blood Federica Mckay D.O. LAB MICROBIOLOGY - GENERAL O RDERABLES Performing Organization Address [facility] Phon e Number [place] [phone] [facility] [place] [phone] (ABNORMAL) CRP (C-Reactive Protein) (04/25/2021 1:58 AM INDIVIDUAL PENSION ADVISER) athologist Signature C-Reactive 8.3 (H) <=8.0 mg/L 04/25/2021 NPRG Protein (CRP), 2:38 AM INDIVIDUAL PENSION ADVISER Specimen Anatomical Collection Method Collection Time Receive d Time (Source) Location / / Volume Laterality Blood (Blood, 04/25/2021 1:58 AM 04/25/20 2:26 Venous) INDIVIDUAL PENSION ADVISER AM INDIVIDUAL PENSION ADVISER Federica Mckay D.O. LAB BLOOD ADD-ON Performing Organization Address [facility] Phon e Number [place] [phone] [facility] [address] (ABNORMAL) Comprehensive Metabolic Panel (04/25/2021 1:58 AM INDIVIDUAL PENSION ADVISER) athologist Signature Potassium, P 4.3 3.6 - 5.2 04/25/2021 NPRG mmol/L 2:38 AM INDIVIDUAL PENSION ADVISER Sodium, P 135 135 - 145 04/25/2021 NPRG mmol/L 2:38 AM INDIVIDUAL PENSION ADVISER Chloride, P 101 98 - 107 04/25/2021 NPRG mmol/L 2:38 AM INDIVIDUAL PENSION ADVISER Bicarbonate, P 25 22 - 29 04/25/2021 NPRG mmol/L 2:38 AM INDIVIDUAL PENSION ADVISER Anion Gap, P 9 7 - 15 04/25/2021 NPRG 2:38 AM INDIVIDUAL PENSION ADVISER BUN (Blood Urea 16 6 - 21 04/25/2021 NPRG Nitrogen), P mg/dL 2:38 AM INDIVIDUAL PENSION ADVISER Creatinine 0.75 0.59 - 04/25/2021 NPRG 1.04 mg/dL 2:38 AM INDIVIDUAL PENSION ADVISER eGFR-Black/Afric >90 >=60 04/25/2021 NPRG an Burundian mL/min/BSA 2:38 AM INDIVIDUAL PENSION ADVISER Comment: ----ADDITIONAL INFORMATION---- Estimated GFR calculated using the 2009 CKD_EPI creatinine equation. eGFR Non-Black/ >90 >=60 mL/min/BSA 04/25/2021 2:38 AM INDIVIDUAL PENSION ADVISER NPRG Comment: ----ADDITIONAL INFORMATION---- Estimated GFR calculated using the 2009 CKD_EPI creatinine equation. Calcium, Total, P 9.6 8.6 - 10.0 mg/dL 04/25/2021 2:38 AM INDIVIDUAL PENSION ADVISER NPRG Glucose, P 105 70 - 140 mg/dL 04/25/2021 2:38 AM INDIVIDUAL PENSION ADVISER N PRG Protein, Total, P 7.4 6.3 - 7.9 g/dL 04/25/2021 2:38 A M INDIVIDUAL PENSION ADVISER NPRG Albumin, P 4.5 3.5 - 5.0 g/dL 04/25/2021 2:38 AM INDIVIDUAL PENSION ADVISER N PRG Aspartate Aminotransferase 37 8 - 43 U/L 04/25/2021 2 :38 AM INDIVIDUAL PENSION ADVISER NPRG (AST), P Alkaline Phosphatase, P 116 (H) 35 - 104 U/L 04/25/2021 2: 38 AM INDIVIDUAL PENSION ADVISER NPRG Alanine Aminotransferase 28 7 - 45 U/L 04/25/2021 2:3 8 AM INDIVIDUAL PENSION ADVISER NPRG (ALT), P Bilirubin, Total, P 0.2 <=1.2 mg/dL 04/25/2021 2:38 AM INDIVIDUAL PENSION ADVISER NPRG Specimen Anatomical Collection Method Collection Time Receive d Time (Source) Location / / Volume Laterality Blood (Blood, 04/25/2021 1:58 AM 04/25/20 2:26 Venous) INDIVIDUAL PENSION ADVISER AM INDIVIDUAL PENSION ADVISER Federica Mckay D.O. LAB BLOOD ADD-ON Performing Organization Address City/State/ZIP Code Phon e Number [facility]- [address] [place] [phone] [facility] [place] [address] (ABNORMAL) CBC with Differential, Blood (04/25/2021 1:58 AM INDIVIDUAL PENSION ADVISER) [facility] Method Time Signature Hemoglobin 11.5 (L) 11.6 - 04/25/2021 NPRG 15.0 g/dL 2:47 AM INDIVIDUAL PENSION ADVISER Hematocrit 35.1 (L) 35.5 - 04/25/2021 NPRG 44.9 % 2:47 AM INDIVIDUAL PENSION ADVISER Erythrocytes 3.90 (L) 3.92 - 04/25/2021 NPRG 5.13 2:47 AM INDIVIDUAL PENSION ADVISER x10(12)/L MCV 90.0 78.2 - 04/25/2021 NPRG 97.9 fL 2:47 AM INDIVIDUAL PENSION ADVISER RBC Distrib Width 16.3 (H) 12.2 - 04/25/2021 NPRG 16.1 % 2:47 AM INDIVIDUAL PENSION ADVISER Platelet Count 213 157 - 371 04/25/2021 NPRG x10(9)/L 2:47 AM INDIVIDUAL PENSION ADVISER Leukocytes 17.0 (H) 3.4 - 9.6 04/25/2021 NPRG x10(9)/L 2:47 AM INDIVIDUAL PENSION ADVISER Neutrophils 14.34 (H) 1.56 - 04/25/2021 NPRG 6.45 2:47 AM INDIVIDUAL PENSION ADVISER x10(9)/L Lymphocytes 1.34 0.95 - 04/25/2021 NPRG 3.07 2:47 AM INDIVIDUAL PENSION ADVISER x10(9)/L Monocytes 1.26 (H) 0.26 - 04/25/2021 NPRG 0.81 2:47 AM INDIVIDUAL PENSION ADVISER x10(9)/L Eosinophils 0.05 0.03 - 04/25/2021 NPRG 0.48 2:47 AM INDIVIDUAL PENSION ADVISER x10(9)/L Basophils 0.05 0.01 - 04/25/2021 NPRG 0.08 2:47 AM INDIVIDUAL PENSION ADVISER x10(9)/L Specimen Anatomical Collection Method Collection Time Receive d Time (Source) Location / / Volume Laterality Blood (Blood, 04/25/2021 1:58 AM 04/25/20 2:10 Venous) INDIVIDUAL PENSION ADVISER AM INDIVIDUAL PENSION ADVISER Federica Mckay D.O. LAB BLOOD ADD-ON Performing Organization Address City/State/ZIP Code Phon e Number [address] [phone] [facility] [place] [phone] Lactate, baseline (04/25/2021 1:58 AM INDIVIDUAL PENSION ADVISER) athologist Signature Lactate, P 0.8 0.5 - 2.2 04/25/2021 NPRG mmol/L 2:36 AM INDIVIDUAL PENSION ADVISER Specimen Anatomical Collection Method Collection Time Receive d Time (Source) Location / / Volume Laterality Blood (Blood, 04/25/2021 1:58 AM 04/25/20 2:26 Venous) INDIVIDUAL PENSION ADVISER AM INDIVIDUAL PENSION ADVISER Federica Mckay D.O. LAB BLOOD NON ADD-ON Performing Organization Address City/[facility] Phon e Number [place] [phone] [facility] [place] [phone] [address] Bacteria / Ebony Culture, Blood #2 (04/25/2021 1:58 AM INDIVIDUAL PENSION ADVISER) [facility] gist Method Time Signature Bacteria/[place] No growth 04/30/2021 NPRG da Culture, after 5 3:03 AM INDIVIDUAL PENSION ADVISER Blood day/s of incubation. Specimen (Source) Anatomical Collection Method Collection Time Re ceived Time Location / / Volume Laterality Blood (Blood, 04/25/2021 1:58 04/25/2021 2:13 Peripheral Draw) AM INDIVIDUAL PENSION ADVISER AM INDIVIDUAL PENSION ADVISER Comment: Specimen Source Site: Blood Federica Mckay D.O. LAB MICROBIOLOGY - GENERAL O RDERABLES Performing Organization Address City/[facility]/ZIP Code Phon e Number [place] [phone] [facility] [address] (ABNORMAL) Urinalysis with Microscopic if Indicated (04/25/2021 1:38 AM INDIVIDUAL PENSION ADVISER) athologist Signature Source Urine, 04/25/2021 NPRG Urine, Clean 2:11 AM INDIVIDUAL PENSION ADVISER Catch Clarity Clear Clear 04/25/2021 NPRG 2:29 AM INDIVIDUAL PENSION ADVISER Color Yellow 04/25/2021 NPRG 2:29 AM INDIVIDUAL PENSION ADVISER Comment: ----REFERENCE VALUE---- Colorless Yellow Chandrika Blood Negative Negative 04/25/2021 2:29 AM INDIVIDUAL PENSION ADVISER NPRG Nitrite Negative Negative 04/25/2021 2:29 AM INDIVIDUAL PENSION ADVISER NPRG Leukocyte Esterase Negative Negative 04/25/2021 2:29 AM CS T NPRG Protein Negative mg/dL 04/25/2021 2:29 AM INDIVIDUAL PENSION ADVISER NPRG Comment: ----REFERENCE VALUE---- Negative Trace Glucose Negative Negative mg/dL 04/25/2021 2:29 AM INDIVIDUAL PENSION ADVISER 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 RG Ketones, QI(U) Negative Negative mg/dL 04/25/2021 2:[address] NPRG Bilirubin Negative Negative 04/25/2021 2:29 AM INDIVIDUAL PENSION ADVISER NPRG pH 8.5 (A) 5.0 - 8.0 04/25/2021 2:29 AM INDIVIDUAL PENSION ADVISER NPRG Specific [place] 1.020 1.001 - 1.035 04/25/2021 2:29 AM INDIVIDUAL PENSION ADVISER NPRG Urobilinogen 0.2 0.2 - 1.0 mg/dL 04/25/2021 2:29 AM CS T NPRG Specimen Anatomical Collection Method Collection Time Receive d Time (Source) Location / / Volume Laterality Urine (Urine, 04/25/2021 1:38 AM 04/25/20 2:11 Clean Catch) INDIVIDUAL PENSION ADVISER AM INDIVIDUAL PENSION ADVISER Federica Mckay D.O. LAB URINE ORDERABLES Performing Organization Address City/State/ZIP Code Phon e Number [facility]- [facility] [address] [place], [place] [address] [place] [address] [place] [address] [place] [address] [place] documented in this encounter Visit Diagnoses Diagnosis Obstruction Intestinal (HCC) - Primary Fever Of Unknown Origin documented in this encounter Admitting Diagnoses Diagnosis Obstruction Intestinal (HCC) documented in this encounter Administered Medications Inactive Administered Medications - up to 3 most recent administrations Medication Order MAR Action Action Date Dose Rate Site acetaminophen tablet 1,000 mg Given 04/25/2021 2:29 AM INDIVIDUAL PENSION ADVISER 1,000 mg (TYLENOL) 1,000 mg, oral, Once, On 04/25/21 at 0229, For 1 dose acetaminophen tablet 1,000 mg (TYLENOL) Given 04/25/2021 9:15 AM INDIVIDUAL PENSION ADVISER 1,000 mg 1,000 mg, oral, Once, On Sun04/25/21 at 0600, For 1 dose ascorbic acid (vitamin C) tablet 1,000 mg Given 04/25/2021 9 :15 AM INDIVIDUAL PENSION ADVISER 1,000 mg (VITAMIN C) 1,000 mg, oral, Daily, First dose on Sun04/25/21 at 0900 ibuprofen tablet 200 mg (ADVIL,MOTRIN) Given 04/25/2021 9:15 AM INDIVIDUAL PENSION ADVISER 200 mg 200 mg, oral, Every 4 hours PRN, moderate pain or score 4-6 of 10, Starting on Sun04/25/21 at 0542, Take with food or milk if GI disturbances occur with use. iohexoL 300 mg iodine/mL solution 1-200 mL Given 04/25/2021 2:28 AM INDIVIDUAL PENSION ADVISER 100 mL (OMNIPAQUE) 1-200 mL, intravenous, Once in imaging, contrast, Starting on Sun04/25/21 at 0228, For 1 dose, Dose per [facility]iant Medication Guidelines NaCl 0.9% infusion New Bag 04/25/2021 2:34 PM INDIVIDUAL PENSION ADVISER 100 mL/hr 100 mL/hr 100 mL/hr, intravenous, Continuous, Starting on Sun04/25/21 at 0410 New Bag 04/25/2021 4:23 AM INDIVIDUAL PENSION ADVISER 100 mL/hr 100 mL/hr sodium chloride 0.9 % flush 100 mL Given 04/25/2021 2:28 AM INDIVIDUAL PENSION ADVISER 100 mL 100 mL, intravenous, Once in imaging, line care, Starting on Sun04/25/21 at 0228, For 1 dose sodium chloride 0.9 % injection 2-10 mL Given 04/25/2021 1:59 AM INDIVIDUAL PENSION ADVISER 10 mL 2-10 mL, intravenous, As needed, line care, Starting on Sun04/25/21 at 0146 documented in this encounter Active and Recently Administered Medications Times are shown in INDIVIDUAL PENSION ADVISER. Scheduled Medication Order 04/23/2021 04/24/2021 04/25/2021 acetaminophen tablet 1,000 mg (TYLENOL) (COMPLETED) 0229 (Given - Provider: Caitlin Allan R.N.) 1,000 mg, oral, Once, On Sun04/25/21 at 0229, For 1 dose acetaminophen tablet 1,000 mg (TYLENOL) (COMPLETED) 0600 (Not Given - Provider: Ally Smith R.N. - Reason: Other - Comment: recieved in ED at 0230, provider says hold.)0915 (Given - Provider: Sri Faye R.N.) 1,000 mg, oral, Once, On Sun04/25/21 at 0600, For 1 dose acetylcysteine capsule 600 mg (NAC) 1132 (Not Given - Provider: Sri Faye R.N. - Reason: Patient/family refused) 600 mg, oral, 2 times daily, First dose on Sun04/25/21 at 0900, For 4 doses ascorbic acid (vitamin C) tablet 1,000 mg (VITAMIN C) 0915 (Given - Provider: Sri Faye R.N.) 1,000 mg, oral, Daily, First dose on Sun04/25/21 at 0900 lisdexamfetamine capsule 70 mg (VYVANSE) 1132 (Not Given - Provider: Sri Faye R.N. - Reason: Patient/family refused) 70 mg, oral, Daily, First dose on Sun at 0900, See tube feeding guidelines for tube feeding administration instructions. sodium chloride 0.9 % injection 3 mL 0919 (Not Given - Provider: Sri aFye R.N. - Reason: Other - Comment: fluids infusing) 3 mL, intravenous, Every 12 hours schedu led, First dose on Sun04/25/21 at 0900, Peripheral Intravenous Catheter and Rapid Infusion Catheter, when no infusion to maintain patency Continuous Medication Order 04/23/2021 04/24/2021 04/25/2021 NaCl 0.9% infusion 0423 (New Bag - Provider: Caitlin Allan R.N.)0444 (Continue to Inpatient Floor - Provider: Caitlin Allan R.N.)1434 (New Bag - Provider: Bronwyn Zuleta R.N.) 100 mL/hr, intravenous, Continuous, Starting on Sun04/25/21 at 0410 PRN Medication Order 04/23/2021 04/24/2021 04/25/2021 acetaminophen tablet 1,000 mg (TYLENOL) 1,000 mg, oral, Every 6 hours PRN, mild pain or score 1-3 of 10, headaches, fever, Starting on Sun04/25/21 at 0548 calcium carbonate chewable tablet 400 mg of calcium (TUMS) 400 mg of calcium, oral, Every 2 hour IA N, heartburn, indigestion, Starting on Sun04/25/21 at 0549, Doses listed are in mg of elemental calcium. Take with food. 500 mg calcium carbonate contains 200 mg of elemental calcium. ibuprofen tablet 200 mg (ADVIL,MOTRIN) 15 (Given - Provider: Sri Faye R.N.) 200 mg, oral, Every 4 hours PRN, moderat e pain or score 4-6 of 10, Starting on Sun04/25/21 at 0542, Take with food or milk if GI disturbances occur with use. iohexoL 300 mg iodine/mL solution 1-200 mL (OMNIPAQUE) (COMPLETE D) 227 (Given - Provider: Dejuan Walsh(R)(CT), R.TChapincito(R) - Comment: [id number]) 1-200 mL, intravenous, Once in imaging, contrast, Starting on Sun04/25/21 at 0228, For 1 dose, Dose per [facility] Medication Guidelines ondansetron ODT disintegrating tablet 8 mg (ZOFRAN-ODT) 8 mg, oral, Every 8 hours PRN, nausea, v omiting, Starting on Sun04/25/21 at 0542, For 305 days, When splitting ODT at bedside, handle with gloves and a pill splitter to prevent moisture contact. polyethylene glycol powder packet 17 g (MIRALAX) 17 g, oral, Daily PRN, constipation, Sta rting on Sun04/25/21 at 0549, Ordered sequence of administration: polyethylene glycol, then bisacodyl until BM achieved. Avoid mixing with starch-based thickened liquids. prochlorperazine tablet 10 mg (COMPAZINE) 10 mg, oral, Every 6 hours PRN, nausea, vomiting, unrelieved by ondansetron, Starting on Sun04/25/21 at 0542, For 305 days sodium chloride 0.9 % flush 100 mL (COMPLETED) 227 (Given - Provider: Dejuan Walsh(R)(CT), Maximo.TChapincito(R)) 100 mL, intravenous, Once in imaging, [facility], Starting on Sun04/25/21 at 0228, For 1 dose sodium chloride 0.9 % injection 10 mL 10 mL, intravenous, As needed, line care , Starting on Sun04/25/21 at 0547, Peripheral Intravenous Catheter and Rapid Infusion Catheter, prior to blood sampling, post blood transfusion or post blood sampling sodium chloride 0.9 % injection 2-10 mL(Linked Group 1) 0159 (Given - Provider: Caitlin Allan R.N.) 2-10 mL, intravenous, As needed, line care, Starting on 04/11 at 0146 sodium chloride 0.9 % injection 3 mL 3 mL, intravenous, As needed, line care, Starting on Sun04/25/21 at 0547, Prior to and following infusion and between multiple consecutive infusions: sodium chloride 0.9 % injection Linked Groups Order Group 1: Place peripheral IV: No upper extremity site restrictions (COMPLETED) Upper extremity site restriction: No upp er extremity site restrictions
Quantity of PIVs requested: One
STAT, Once, On Sun04/25/21 at 0147, For 1 occurrence And sodium chloride 0.9 % injection 2-10 mLJump to med 2-10 mL, intravenous, As needed, line ca re, Starting on Sun04/25/21 at 0146 documented in this encounter Additional Health Concerns Infection Onset Date Last Indicated Resolved Time COVID19 Pending 04/25/2021 04/25/2021 04/25/2021 4:15 AM INDIVIDUAL PENSION ADVISER documented as of this encounter
--- OUTSIDE RECORDS SUMMARY | 2022-03-06 01:52 | XMS_ITS | Encounter Summary ---
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] Procedures PA SALPINGO-OOPHORECTOMY BILAT HYST PA HEPATECTMY RESECT PARTL LOBECT PA US GUIDE INTRAOPERATIVE PA CYSTHRSCPY W INS URETERAL STNT LAPAROTOMY, TUMOR DEBULKING HYSTERECTOMY ABDOMINAL WITH BILATERAL SALPINGO-OOPHORECTOMY OMENTECTOMY POSSIBLE RESECTION SMALL INTESTINE WITH ANASTOMOSIS, PROCEED INDICATED WEDGE RESECTION LIVER INTRAOPERATIVE ULTRASOUND LIVER CYSTOSCOPY INSERTION STENT URETER Referral ID Status Reason Start Date Expiration Date Visits Requ ested Visits Authorized [id number] 1 1 Encounter Details Date Type Department Care Team Description 05/09/2021 Anesthesia Event [facility] OR Harrison Aguilar M.D. [address] [place] [phone] [address] Abbey Rodrigez, MANAGER [employer]ST [employer]OD, HOUSEHOLD CHORES [address] [place] [phone] [place] [phone] Anesthesia Record Procedure Summary Procedure Name Responsible Anesthesia Start Anesthesia Stop Time Anesthesiologist Time Jeff EAGLE Nathan D, M.D. 05/09/21 0830 05/09/21 1709 EXPLORATORY. Events Date Time Event Comment 05/09/2021 0830 An Start Machine/Equipmen t Checked Infection Precautions Foll owed Procedure/Site Verified NPO Sta tus Verified Supine Standard ASA Mon itors Applied 0832 Anesthesia Time Out 0832 Block Start 0836 Block End 0839 An Induction 0842 An Intubation 0855 Turnover to Proceduralist 0935 Proc Start 1647 Proc Fin 1659 Turnover to ANE Staff 1659 Airway Removal Criteria Met 1659 Extubation/Airway Removed 1701 an stop data 1709 An End I completed my h andoff to the receiving staff during [facility] we 1. Identified the patient 2. Ident ified the responsible provider 3. Revi ewed the pertinent medical history 4. Discussed the surgical course 5. Review ed intra-op anesthesia management and i ssues during anesthesia 6. Set expectati ons for post-procedure period 7. Allowe d opportunity for questions and ac knowledgement of understanding. Name Total midazolam 1 mg/mL injection 2 mg fentanyl injection 50 mcg/mL 250 mcg lidocaine 2% (mg) injection 100 mg propofol 10 mg/mL 150 mg propofol 10 mg/mL infusion 2,316.06 mg rocuronium 10 mg/mL injection 310 mg phenylephrine 100 mcg/mL injection 900 mcg ePHEDrine PF 5 mg/mL syringe injection 30 mg ondansetron 4 mg/2 mL injection 4 mg sugammadex 100 mg/mL injection 150 mg glycopyrrolate 0.2 mg/mL injection 0.2 mg HYDROmorphone PF 100 mcg/mL Regional 100 mcg ceFAZolin injection 2,000 mg (ANCEF) 6 g heparin (porcine) injection 5,000 Units 5,000 Units metroNIDAZOLE in NaCl (iso-osm) IVPB 500 mg (FLAGYL) 1 ,000 mg tranexamic acid in NaCl IVPB 1,000 mg (CYKLOKAPRON) 1 g dexamethasone 4 mg/mL injection 8 mg albumin human bottle 5% 1,500 mL haloperidol 5 mg/mL injection 1 mg calcium gluconate 100 mg/mL (10%) injection 1 g indocyanine green 25 mg injection 5 mg Lactated Ringers Free Drip 1,700 mL lactated ringers free drip 3,100 mL Agents No agents on file. Blood No blood administrations on file. Lines, Drains, and Airways Type Details Placement Removal Wound 05/09/21; N; Incision; 05/09/21 0000 by Abdomen; Medial; Midline Jem Barreto RChapincitoN. abdominal incision from chest to pubis Puncture 02/16/21; 0840; No; 02/16/21 0840 by 05/09/21 17 27 by Abdomen; Mid; Omentum Juan Antonio Villa, R.N. Jem Barreto A, Biopsy; 05/09/21; 1727; R.N. Healed Peripheral IV Placement Date: 05/09/21804 by 05/14/21 09 b y 05/09/21; Placement Abbey Kelly, Celeste Harris Time: 804; Catheter MARK BALDWIN J, R.N. Size: 20 G; Orientation: Right; Location: Hand; Inserted by: Vik Kelly CRNA; Removal Date: 05/14/21; Removal Time: 926; Removal Reason: Per order Peripheral IV Placement Date: 05/09/21823 by 05/10/21345 b y 05/09/21; Placement Abbey Kelly Voltai re, Shentia, Time: 823; Catheter MARK BALDWIN R.N. Size: 16 G; Orientation: Right; Location: Forearm; Removal Date: 05/10/21; Removal Time: 345; Removal Reason: No longer in place ETT Placement Date: 05/09/21843 by 05/09/211658 b y 05/09/21; Placement Abbey Kelly, Roldan Tatum, Time: 843 (created via MARK BALDWIN APRN, NICOLAS BRADY procedure documentation); Mask Ventilation: Easy mask; Type: Standard ETT; Single Lumen Tube Size: 7 mm; Cuffed: Yes; Blade Size: Aguilar 2; Location: Oral; Grade View: Grade 2A; Insertion Attempts: 1; Placement Verification: Bilateral breath sounds, Positive ETCO2, Symmetrical chest wall movement; Removal Date: 05/09/21; Removal Time: 1658 Arterial Line Placement Date: 05/09/2145 by 05/09/21 180 b y 05/09/21; Placemnt Time: Sharif Dominique M.D. K opka, Wyatt A, 844 (created via R.N. procedure documentation); Size: 20 G; Orientation: Right; Location: Radial; Site Prep: Chlorhexidine (Preferred); Technique: Ultrasound guidance; Insertion Attempts: 1; Securement: Securement dressing, Securement device; Removal Date: 05/09/21; Removal Time: 1806; Removal Reason: Completion of therapy Peripheral IV Placement Date: 05/09/21 0846 by 05/09/21 1938 b y 05/09/21; Placement Abbey Kelly, Celeste Goldberg B, Time: 845; Catheter MARK BALDWIN R.N. Size: 16 G; Orientation: Left; Location: Forearm; Removal Date: 05/09/21; Removal Time: 1937; Removal Reason: Per patient/family request NG/OG Tube 05/09/21; 0858; 05/09/21 0858 by 05/09/21 1650 b y Orogastric; 16 Fr; Oral; Abbey Kelly, Kaylen dean, Roldan W, 05/09/21; 165 MANAGER FAST FOODMARK Myles APRN, MARK Ureteral Drain/Stent 05/09/21; 0938; Right; 05/09/21 0938 by 1652 by Other (Comment) Stephanie Grewal R.N. Berndt, Jose Marsh, (Ureter); 5 Fr.; Yes; R.N. Criteria for drain removal met Ureteral Drain/Stent 05/09/21; 0939; Left; 05/09/21 0939 by 04/12 03/01 1652 by Other (Comment) Stephanie Grewal R.N. Berndt, Jose Marsh, (ureter); 5 Fr.; Yes; R.N. Criteria for drain removal met Bladder Irrigation 05/09/21; 0939; 16 Fr; 5 05/09/21 0939 by 1726 by mL (10ml of water in Stephanie Grewal R.Shameka. Jem Barreto, balloon); Yes; 05/09/21; R.N. 1726; Other (Comment) (Changing to briceño as not bladder irrigation) Indwelling Urinary Placement Date: 05/09/21 0939 by 05/10/21 051 0 by Catheter 05/09/21; Placement Jem Barreto, R.NJessie Vaca, Time: 938; Inserted by: R.N. OR staff; Removal Date: 05/10/21; Removal Time: 509; Removal Reason: Per order Closed/Suction Drain 05/09/21; 1611; 1; Left; 05/09/21 1611 by 1 07/13/20 1236 by LLQ; Bulb; 15 Fr.; Per Stephanie Grewal, Angela Nieto, order (drain appeared R.N. intact. pt tolerated well) documented in this encounter Social History Tobacco Use Types Packs/Day Years [...] or relatives? How often do you attend yarsani or 1 to 4 times per year 02/09 scientologist services? Do you belong to any clubs or Yes 02/26/2021 organizations such as yarsani groups, unions, fraternal or athletic groups, or [...] AM CDT documented as of this encounter OR Notes Anesthesia Postprocedure Evaluation - Heldt Zeferino Márquez M.D. - 05/09/2021 6:04 PM CST Patient: Angelica Yang Procedure Summary Date: 05/09/21 [address] / [facility] in [place], [place] Anesthesia Start: 829 Anesthesia Stop: 170 Procedures: LAPAROTOMY, EXPLORATORY. (N/A ) TUMOR DEBULKING. (N/A ) HYSTERECTOMY ABDOMINAL, BILATERAL SALPINGO-OOPHORECTOMY. (N/A ) OMENTECTOMY. (N/A ) SPLENECTOMY (N/A ) Proctoscopy (N/A ) STRIPPING DIAPHRAGM (Bilateral ) LYSIS ADHESIONS (N/A ) COLECTOMY LEFT WITH ANASTOMOSIS (N/A ) WEDGE RESECTION LIVER. (N/A ) INTRAOPERATIVE ULTRASOUND LIVER. (N/A ) CYSTOSCOPY INSERTION STENT URETER. 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 Responsible Provider: Harrison Aguilar M.D. Anesthesia Type: general with pain block ASA Status: 3 Anesthesia Type: general with pain block Last vitals Vitals Value Taken Time BP 102/65 05/09/21 1801 Temp 36.9 ??C 05/09/21 1715 Pulse 59 05/09/21 1804 Resp 16 05/09/21 1800 SpO2 95 % 05/09/21 1804 Vitals shown include unvalidated device data. Please reference Vitals flowsheet for most recent vital signs. Anesthesia Post Evaluation Patient Disposition: general care unit Cardiovascular status: hemodynamics (HR & BP) acceptable Respiratory status: patent airway with spontaneous effort Temperature: normothermic Oxygen requirements: room air Level of consciousness: awake Pain score: pain adequately controlled and/or at baseline Post Op nausea/vomiting: none Hydration status: euvolemic TER TEACHER Anesthesia Procedure Notes - Abbey Kelly APRN, CRNA - 05/09/2021 9:20 AM CSTAssociated Order(s): Airway Airway Date/Time: 05/09/2021 8:44 AM Performed by: Abbey Kelly APRN, CRNA Authorized by: Sharif Dominique M.D. Care team members present 1. Abbey Kelly APRN, CRNA 2. Sharif Dominique M.D. Patient location during procedure: OR / Procedure Area PROCEDURE DETAILS: Mask difficulty assessment: easy mask Final airway type: direct laryngoscopy, intubation Laryngeal Manipulation: no Final airway difficulty of direct laryngoscopy (DL): 0-easy Final best view of glottic structures - Cormack/Lehane Score: grade 2A ETT location: oral Adult blade type: Aguilar 2 Adult tube size: 7 Adult ETT distance at teeth/gum: 22 Oral tube type: standard ETT Cuffed: yes Number of attempt to successful placement: 1 Airway confirmation: bilateral breath sounds, positive ETCO2 and bilateral chest rise Other previous techniques attempted: none PRE PROCEDURE DETAILS: Pre evaluation for airway management: procedure Urgency: elective Preop assessment of probable difficulty: no difficulty anticipated Preoxygenation: bag valve mask SEDATION / ANESTHESIA Anesthesia method: anesthesia POST PROCEDURE DETAILS: Procedure outcome: successful Airway event: no complications ATTESTATION STATEMENT TER TEACHER Anesthesia Procedure Notes - Abbey Kelly APRN, CRNA - 05/09/2021 9:13 AM CSTAssociated Order(s): Regional Block Regional Block Date/Time: 05/09/2021 8:48 AM Performed by: Sharif Dominique M.D. Authorized by: Sharif Dominique M.D. Location: OR PROCEDURE DETAILS: Block Indication: post-op pain block Block indication comment: Post-Op pain block at request of surgeon Block Type - Neuraxial: spinal Positioning: sitting Approach: midline Level inserted: L3-4 Block technique: landmark technique Injection technique: single injection Gauge: 25G Length: 5 CSF: yes Pain with needle advancement or injection of local anesthetic: no Injected Medications: Injection(s), anesthetic agent(s) and/or steroid; See MAR Comments: Comments: RBA discussed. Sitting. Single pass. CSF aspirated before/after. UNIVERSAL PROTOCOL All relevant documentation and testing were reviewed and available. All required blood products, implants, devices and or special equipment were made available as applicable. Pre-procedure verificationwas conducted and the correct site was marked if required. A fire risk assessment was done as applicable. The procedural time-out was conducted prior to performing the procedure and confirmed in a procedural pause. PRE-PROCEDURE DETAILS: Appropriate hand hygiene, gown, cap, mask, protective eyewear, sterile gloves, skin preparation, sterile drape, and strict aseptic technique were utilized as applicable for the procedure.: yes Skin prep: chlorhexidine / alcohol SEDATION / ANESTHESIA Anesthesia method: local infiltration (Midazolam/Fentanyl) Local infiltrate type: lidocaine POST-PROCEDURE DETAILS: Procedure completed successfully: successful procedure Other complications: none ATTESTATION STATEMENT TER TEACHER Anesthesia Procedure Notes - Abbey Kelly APRN, CRNA - 05/09/2021 9:12 AM CSTAssociated Order(s): Invasive Catheter Invasive Catheter Date/Time: 05/09/2021 8:45 AM Performed by: Sharif Dominique M.D. Authorized by: Sharif Dominique M.D. Location: OR PROCEDURE DETAILS: Line type: arterial Laterality: right Location: radial Location details: new site Age group: adult Catheter diameter: 20 Ga Catheter length (cm): 6 Technique: ultrasound guided Ultrasound guidance: image not saved Monitored: yes Number of attempts: 1 UNIVERSAL PROTOCOL All relevant documentation and testing were reviewed and available. All required blood products, implants, devices and or special equipment were made available as applicable. Pre-procedure verificationwas conducted and the correct site was marked if required. A fire risk assessment was done as applicable. The procedural time-out was conducted prior to performing the procedure and confirmed in a procedural pause. PRE-PROCEDURE DETAILS: Appropriate hand hygiene, gown, cap, mask, protective eyewear, sterile gloves, skin preparation, sterile drape, and strict aseptic technique were utilized as applicable for the procedure.: yes Skin preparation: chlorhexidine SEDATION / ANESTHESIA Anesthesia method: none POST-PROCEDURE DETAILS: Procedure completed successfully: yes Line secured: secured with sutureless device Chlorhexidine disc around insertion site and under catheter with slight turn: yes Complications - arterial: none ATTESTATION STATEMENT TER TEACHER Anesthesia Preprocedure Evaluation - Sharif Dominique M.D. - 05/09/2021 7:30 AM CST Preprocedure Anesthesia & H&P Assessment Procedure Summary Date/Time: 05/09/21 0815 Procedures: LAPAROTOMY, EXPLORATORY. (N/A ) TUMOR DEBULKING. (N/A ) HYSTERECTOMY ABDOMINAL, BILATERAL SALPINGO-OOPHORECTOMY. (N/A ) OMENTECTOMY. (N/A ) POSSIBLE RESECTION SMALL INTESTINE WITH ANASTOMOSIS, PROCEED INDICATED. (N/A ) WEDGE RESECTION LIVER. (N/A ) INTRAOPERATIVE ULTRASOUND LIVER. (N/A ) CYSTOSCOPY INSERTION STENT URETER. 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 Location: [place] [address] / [facility] in [place], [place] Providers: Denisha Oviedo M.D.; Wilma Castro M.D.; Jacobo Banda M.D. Pertinent components of the patient's history including current problem list, medical history, surgical history, family history, social history, medications and allergies were reviewed. Present illnessand pre-op diagnosis were confirmed. The planned surgery / procedure was verified with the patient /legal guardian. 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) (+) Personal History Of Malignant Neoplasm Of Ovary Other (+) Mass Ovary (+) Neutropenia Drug Induced (HCC) OBJECTIVE PHYSICAL EXAMINATION Airway (HEENT) Mallampati: I TM Distance: >3 FB Neck ROM: Full Mouth Opening: >3 cm Cardiovascular Rhythm: Regular Rate: Normal Cardiovascular Assessment: cardiovascular normal Functional Capacity: >4 METS Pulmonary Pulmonary Assessment: Clear General / Constitutional Constitutional Assessment: Normal General State of Health:: healthy appearing and calm Neurological Neurologic Assessment:??alert and alert and oriented x 3 Dental Dental Assessment: dentition intact ASSESSMENT / PLAN ANESTHESIA PLAN ASA: 3 Anesthesia Plan: general Possible intra-thecal opioid. GETA. ASA std monitors + arterial line. Large bore PIV access. Multimodal analgesia and antiemetics. Patient seen and allergies reviewed, anesthesia plan and risks discussed directly with patient /legal guardian or through an japanese interpreter. Risks/Benefits/Alternatives of Blood transfusion discussed with patient / legal guardian, including an opportunity to ask questions and/or decline some or all transfusion therapies. The patient / legalguardian consented to the use of all blood products, as deemed medically necessary Approval to Proceed: approved for anesthesia TER TEACHER documented in this encounter Plan of Treatment Upcoming Encounters Date Type Specialty Care Team Description 04/11/2022 Clinical Communication Admitting/Central Scheduling 04/13/2022 Appointment Laboratory Medicine Debbie Ivey M.D. [address] [place] [phone] 04/13/2022 Office Visit Oncology Walter Barnhart M.D., Ph.D. [address] [place] [phone] documented as of this encounter Procedures Procedure Name Priority Date/Time Associated Comments Diagnosis PA INJ SPINE LUMB/SAC Routine 05/09/2021 8:48 AM Results for this WO IMG THEATER TEACHER procedure are i n the results section. LDA ANE ARTERIAL LINE Routine 05/09/2021 8:45 AM Results for this INSERTION THEATER TEACHER procedure are i n the results section. PA ARTL CATH/CNULA Routine 05/09/2021 8:45 AM Res ults for this MONITOR PERC THEATER TEACHER procedure are i n the results section. LDA ANE ENDOTRACHEAL Routine 05/09/2021 8:44 AM R esults for this AIRWAY THEATER TEACHER procedure are i n the results section. documented in this encounter Results PA INJ SPINE LUMB/SAC WO IMG (05/09/2021 8:48 AM THEATER TEACHER) Narrative Abbey Kelly APRN, CRNA - 05/09 8:48 AM THEATER TEACHER Abbey Kelly APRN, CRNA ? 05/09/2021 ??9:14 AM Regional Block Date/Time: 05/09/2021 8:48 AM Performed by: Sharif Dominique M.D. Authorized by: Sharif Dominique M.D. Location: OR PROCEDURE DETAILS: Block Indication: post-op pain block ?? Block indication comment: Post-Op pain b lock at request of surgeon Block Type - Neuraxial: spinal Positioning: sitting ?? Approach: midline Level inserted: L3-4 Block technique: landmark technique ?? Injection technique: single injection Gauge: 25G Length: 5 CSF: yes ??Pain with needle advancement or injection of local anesthetic: no ?? Injected Medications: Injection(s), anes thetic agent(s) and/or steroid; See MAR Comments: Comments: RBA discussed. Sitting. Single pass. CSF aspirated before/after. UNIVERSAL PROTOCOL All relevant documentation and testing w ere reviewed and available. All required blood products, implants, devic es and or special equipment were made available as applicable. Pre-proced ure verification was conducted and the correct site was marked if required. A fire risk assessment was done as applicable. The procedural time-out w as conducted prior to performing the procedure and confirmed in a procedu ral pause. PRE-PROCEDURE DETAILS: ?? Appropriate hand hygiene, gown, cap, mas k, protective eyewear, sterile gloves, skin preparation, sterile drape, and strict aseptic technique were utilized as applicable for the procedure .: yes ?? Skin prep: chlorhexidine / alcohol SEDATION / ANESTHESIA Anesthesia method: local infiltration (M idazolam/Fentanyl) Local infiltrate type: lidocaine POST-PROCEDURE DETAILS: Procedure completed successfully: succes sful procedure Other complications: none ATTESTATION STATEMENT Sharif Dominique M.D. PROCEDURE/MINOR SURGICAL ORD ERABLES PA ARTL CATH/CNULA MONITOR PERC, LDA ANE ARTERIAL LINE INSERTION (05/09/2021 8:45 AM THEATER TEACHER) Abbey Garcia APRN, HOUSEHOLD CHORES - 05/09 8:45 AM THEATER TEACHER Abbey Kelly APRN, HOUSEHOLD CHORES ? 05/09/2021 ??9:13 AM Invasive Catheter Date/Time: 05/09/2021 8:45 AM Performed by: Sharif Dominique M.D. Authorized by: Sharif Dominique M.D. Location: OR PROCEDURE DETAILS: Line type: arterial ?? Laterality: right Location: radial Location details: new site ? Age group: adult Catheter diameter: 20 Ga Catheter length (cm): 6 Technique: ultrasound guided ?? Ultrasound guidance: image not saved Monitored: yes ?? Number of attempts: 1 UNIVERSAL PROTOCOL All relevant documentation and testing w ere reviewed and available. All required blood products, implants, devic es and or special equipment were made available as applicable. Pre-proced ure verification was conducted and the correct site was marked if required. A fire risk assessment was done as applicable. The procedural time-out w as conducted prior to performing the procedure and confirmed in a procedu ral pause. PRE-PROCEDURE DETAILS: Appropriate hand hygiene, gown, cap, mas k, protective eyewear, sterile gloves, skin preparation, sterile drape, and strict aseptic technique were utilized as applicable for the procedure .: yes ?? Skin preparation: chlorhexidine ?? SEDATION / ANESTHESIA Anesthesia method: none POST-PROCEDURE DETAILS: Procedure completed successfully: yes ?? Line secured: secured with sutureless de vice Chlorhexidine disc around insertion site and under catheter with slight turn: yes ?? Complications - arterial: none ATTESTATION STATEMENT Sharif Dominique M.D. PROCEDURE/MINOR SURGICAL ORD ERABLES LDA ANE ENDOTRACHEAL AIRWAY (05/09/2021 8:44 AM THEATER TEACHER) Narrative Abbey Kelly APRN, CRNA - 05/09 8:44 AM THEATER TEACHER Abbey Kelly APRN, CRNA ? 05/09/2021 ??9:21 AM Airway Date/Time: 05/09/2021 8:44 AM Performed by: Abbey Kelly APRN, CRNA Authorized by: Sharif Dominique M.D. Care team members present 1. Abbey Kelly APRN, CRNA 2. Sharif Dominique M.D. Patient location during procedure: OR / Procedure Area PROCEDURE DETAILS: Mask difficulty assessment: easy mask Final airway type: direct laryngoscopy, intubation Laryngeal Manipulation: no ?? Final airway difficulty of direct laryng oscopy (DL): 0-easy Final best view of glottic structures - Cormack/Lehane Score: grade 2A ETT location: oral Adult blade type: Aguilar 2 Adult tube size: 7 Adult ETT distance at teeth/gum: 22 Oral tube type: standard ETT Cuffed: yes Number of attempt to successful placemen t: 1 Airway confirmation: bilateral breath so unds, positive ETCO2 and bilateral chest rise Other previous techniques attempted: non e PRE PROCEDURE DETAILS: Pre evaluation for airway management: pr ocedure Urgency: elective Preop assessment of probable difficulty: no difficulty anticipated Preoxygenation: bag valve mask SEDATION / ANESTHESIA Anesthesia method: anesthesia POST PROCEDURE DETAILS: ? Procedure outcome: successful ?? Airway event: no complications ATTESTATION STATEMENT Sharif Dominique M.D. ANESTHESIA ORDERABLES documented in this encounter Visit Diagnoses Not on filedocumented in this encounter Administered Medications Inactive Administered Medications - up to 3 most recent administrations Medication Order MAR Action Action Date Dose Rate Site albumin human 5 % injection Given 05/09/2021 2:30 PM THEATER TEACHER 250 mL intravenous, As needed, Starting on Sun05/09/21 at 0910, Anesthesia Intra-op Given 05/09/2021 2:11 PM THEATER TEACHER 250 mL Given 05/09/2021 10:31 AM THEATER TEACHER 250 mL calcium gluconate injection Given 05/09/2021 1:13 PM THEATER TEACHER 1 g intravenous, As needed, Starting on Sun05/09/21 at 1313, Anesthesia Intra-op ceFAZolin injection 2,000 mg (ANCEF) Given 05/09/2021 3:07 PM THEATER TEACHER 2 g 2,000 mg (rounded from 1,552.5 mg = 25 m g/kg ? 62.1 kg), intravenous, Once, On Sun05/09/21 at 0730, For 1 dose, Intra-Op, Preoperatively within 1 hour prior to surgical incision If needed, reconstitute vial per package insert instructions. See IVAG for administration guidelines. , Drug Monitoring Program: Pharmacist to adjust medication dosing based on indication and drug clearance factors., Indications: Prophylaxis, surgical Given 05/09/2021 12:17 PM THEATER TEACHER 2 g Given 05/09/2021 9:18 AM THEATER TEACHER 2 g dexAMETHasone injection (DECADRON) Given 05/09/2021 9:04 AM THEATER TEACHER 8 mg intravenous, As needed, Starting on Sun05/09/21 at 0904, Anesthesia Intra-op ePHEDrine (PF) injection Given 05/09/2021 4:29 PM THEATER TEACHER 5 mg intravenous, As needed, Starting on Sun05/09/21 at 0946, Anesthesia Intra-op Given 05/09/2021 4:20 PM THEATER TEACHER 5 mg Given 05/09/2021 2:01 PM THEATER TEACHER 5 mg fentaNYL injection (SUBLIMAZE) Given 05/09/2021 1:41 PM THEATER TEACHER 50 mcg intravenous, As needed, Starting on Sun05/09/21 at 0839, Anesthesia Intra-op Given 05/09/2021 10:10 AM THEATER TEACHER 50 mcg Given 05/09/2021 10:00 AM THEATER TEACHER 50 mcg glycopyrrolate injection (ROBINUL) Given 05/09/2021 9:48 AM THEATER TEACHER 0.2 mg intravenous, As needed, Starting on Sun05/09/21 at 0948, Anesthesia Intra-op haloperidol lactate injection (HALDOL) Given 05/09/2021 1:01 PM THEATER TEACHER 1 mg intravenous, As needed, Starting on Sun05/09/21 at 1301, Anesthesia Intra-op heparin (porcine) injection 5,000 Units Given 05/09/2021 9:05 AM THEATER TEACHER 5,000 Units 5,000 Units, subcutaneous, Once, On Sun05/09/21 at 0730, For 1 dose, Intra-Op, Administer prior to induction of anesthesia. HYDROmorphone dilution injection (DILAUD ID) Given 05/09/2021 8:36 AM THEATER TEACHER 100 mcg intrathecal, As needed, Starting on Sun05/09/21 at 0836, Anesthesia Intra-op indocyanine green injection (IC-GREEN) Given 05/09/2021 3:45 PM THEATER TEACHER 2.5 mg intravenous, As needed, Starting on Sun05/09/21 at 1501, Anesthesia Intra-op Given 05/09/2021 3:01 PM THEATER TEACHER 2.5 mg lactated ringers New Bag 05/09/2021 2:08 PM THEATER TEACHER intravenous, Continuous Infusion: Per Instructions PRN, Starting on Sun05/09/21 at 0830, Anesthesia Intra-op New Bag 05/09/2021 8:30 AM THEATER TEACHER lactated ringers New Bag 05/09/2021 3:41 PM THEATER TEACHER intravenous, Continuous Infusion: Per Instructions PRN, Starting on Sun05/09/21 at 0847, Anesthesia Intra-op New Bag 05/09/2021 1:21 PM THEATER TEACHER New Bag 05/09/2021 10:45 AM THEATER TEACHER lidocaine (PF) (cardiac) injection Given 05/09/2021 8:39 AM THEATER TEACHER 100 mg intravenous, As needed, Starting on Sun05/09/21 at 0839, Anesthesia Intra-op metroNIDAZOLE in NaCl (iso-osm) IVPB 500 mg Given 05/09/2021 2:56 PM THEATER TEACHER 500 mg (FLAGYL) 500 mg, intravenous, at 200 mL/hr, Administer over 30 Minutes, Once, On Sun05/09/21 at 0730, For 1 dose, Intra-Op, Preoperatively within 1 hour prior to surgical incision, Indications: Prophylaxis, surgical Given 05/09/2021 9:07 AM THEATER TEACHER 500 mg midazolam (PF) injection (VERSED) Given 05/09/2021 8:32 AM THEATER TEACHER 2 mg intravenous, As needed, Starting on Sun05/09/21 at 0832, Anesthesia Intra-op ondansetron (PF) injection (ZOFRAN) Given 05/09/2021 4:16 PM THEATER TEACHER 4 mg intravenous, As needed, Starting on Sun05/09/21 at 1616, Anesthesia Intra-op phenylephrine injection Given 05/09/2021 4:20 PM THEATER TEACHER 100 mcg intravenous, As needed, Starting on Sun05/09/21 at 0947, Anesthesia Intra-op Given 05/09/2021 4:10 PM THEATER TEACHER 50 mcg Given 05/09/2021 4:07 PM THEATER TEACHER 50 mcg propofol 10 mg/mL infusion Rate/Dose 05/09/2021 3:44 75 mcg/kg/min 2 6.82 (DIPRIVAN) Change PM THEATER TEACHER mL/hr intravenous, Continuous Infusion: Per Instructions PRN, Starting on Sun05/09/21 at 0840, Anesthesia Intra-op Rate/Dose Change 05/09/2021 9:38 AM THEATER TEACHER 85 mcg/kg/min 30.396 mL/hr New Bag 05/09/2021 8:40 AM THEATER TEACHER 100 mcg/kg/min 35.76 mL/hr propofoL injection (DIPRIVAN) Given 05/09/2021 8:39 AM THEATER TEACHER 150 mg intravenous, As needed, Starting on Sun05/09/21 at 0839, Anesthesia Intra-op rocuronium injection (ZEMURON) Given 05/09/2021 3:36 PM THEATER TEACHER 20 mg intravenous, As needed, Starting on Sun05/09/21 at 0839, Anesthesia Intra-op Given 05/09/2021 3:03 PM THEATER TEACHER 20 mg Given 05/09/2021 2:15 PM THEATER TEACHER 20 mg sugammadex injection (BRIDION) Given 05/09/2021 4:41 PM THEATER TEACHER 150 mg intravenous, As needed, Starting on Sun05/09/21 at 1641, Anesthesia Intra-op tranexamic acid in NaCl IVPB 1,000 mg Given 05/09/2021 9:[address] 1 g (CYKLOKAPRON) 1,000 mg (1 g), intravenous, at 300 mL/hr, Administer over 20 Minutes, Once, On Sun05/09/21 at 0730, For 1 dose, Intra-Op documented in this encounter
--- OUTSIDE RECORDS SUMMARY | 2022-03-06 01:52 | XMS_ITS | Encounter Summary ---
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 [address] [place] [address] Referral ID Status Reason Start Date Expiration Date Visits Requ ested Visits Authorized [id number] Closed 05/03/2021 05/03/2022 1 1 Scheduling Instructions 05/03/21 Dr. Castro agreed to [place] guadalupe simmons on [place] [address] Immediately after consult with Dr. Oviedo. Schedule as Biliary/Liver Ca ncer/Stricture IST ESCORT Reason for Visit Outpatient (Routine) - Closed Specialty Diagnoses / Procedures Referred By Contact Refer red To Contact Obstetrics and Diagnoses Personal History Of Malignant Neoplasm Of Ovary Denisha Oviedo [facility] M.D. 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 - 05/03/2021 10:45 AM CST SUBJECTIVE CHIEF COMPLAINT / REASON FOR VISIT Follow-up HISTORY OF PRESENT ILLNESS Angelica Yang is a 45 y.o. woman who returns to discuss interval debulking for ovarian cancer. Please see my previous visit note for further details. Patient has had three cycles of chemotherapy. She was recently in the ED for abdominal pain/possible small bowel obstruction but was able to be discharged. Albumin 4.5. Chest CT from yesterday clear. She has been doing very well with chemotherapy and is ready for surgery. The following portions of the patient's history were reviewed and updated as appropriate: allergies,current medications, family history, medical history, social history and surgical history. REVIEW OF SYSTEMS All systems reviewed and negative except as noted in HPI. OBJECTIVE There were no vitals taken for this visit. PHYSICAL EXAM General: Well-appearing, no apparent distress, alert and oriented. LABORATORY DATA Lab data reviewed. RADIOLOGICAL DATA Radiology data reviewed. 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 This may include a total abdominal hysterectomy, bilateral salpingo- oophorectomy, omentectomy, diaphragm stripping, bowel resection, splenectomy,and any other necessary procedures to remove all visible disease. Dr. Castro also came in to see thepatient, as she will need a liver resection. Dr. Jacobo Banda will place stents before the procedurewith a plan to remove them at the end. We discussed that a temporary ostomy for bowel contents may be necessary based on surgical factors. The procedure and its risks and benefits were discussed in detail. PATIENT EDUCATION Ready to learn, no apparent learning barriers were identified; learning preferences include listening. Explained diagnosis and treatment plan; patient expressed understanding of the content. Informed consent was obtained. ADMINISTRATIVE BILLING I personally spent over half of a total 45 minutes in counseling and discussion with the patient andcoordination of care as described above. IST ESCORT documented in this encounter Miscellaneous Notes Addendum Note - Phi eRcio R.N. - 05/03/2021 10:45 AM TOURIST ESCORT Addended by: PHI RECIO on: 05/04/2021 08:48 AM Modules accepted: Orders IST ESCORT documented in this encounter Plan of Treatment Upcoming Encounters Date Type Specialty Care Team Description 04/11/2022 Clinical Communication Admitting/Central Scheduling 04/13/2022 Appointment Laboratory Medicine Debbie Ivey M.D. [address] [place] [address] 04/13/2022 Office Visit Oncology Walter Barnhart M.D., Ph.D. [address] [place] [address] Scheduled Referrals Name Type Priority Associated Diagnoses Order S [facility] General Surgery - Outpatient Referral Routine Malignant Neopla sm Expected: Biliary / liver Of Ovary Laterality 05/03, consult (clinic) Unknown (HCC) Expires: Lesion Liver 08/03/2022 documented as of this encounter Results SARS CoV-2 RNA, PCR, Varies Asymptomatic (05/08/2021 7:08 AM TOURIST ESCORT) [facility] Method Time Signature SARS CoV-2 Swab, 05/08/2021 DTL RNA, PCR, Nasopharynx 1:23 PM TOURIST ESCORT Source SARS CoV-2 Undetected Undetected 05/08/2021 DTL RNA, PCR 1:23 PM TOURIST ESCORT Comment: SARS-CoV-2 RNA absent. This result does not rule out COVID-19 in the patient, as the sensitivity of the test depends o n the timing of the specimen collection and quality of the specimen. Result should be correlated with patient's history and clinical presentat ion. ----ADDITIONAL INFORMATION---- This RT-PCR test has received Emergency Use Authorization (EUA) by the U.S. Food and Drug Administration an d is used per telecommunications facility examiner's instructions. Performance characteristics were verified by [facility] in a manner consistent with CLIA requirements. Visit the CDC website: https://www.cdc.g ov/coronavirus/ for the most recent guidelines on Coron avirus testing. Fact Sheet for Healthcare Providers: https://www.fda.gov/media/756926/downloa d Fact Sheet for Patients: https://www.fda.gov/media/500717/downloa d Specimen Anatomical Collection Method Collection Time Receive d Time (Source) Location / / Volume Laterality Varies 05/08/2021 7:08 AM 8:49 (Nasopharynx) TOURIST ESCORT AM TOURIST ESCORT Denisha Oviedo M.D. LAB MICROBIOLOGY - GENERAL O RDERABLES Performing Organization Address City/State/ZIP Code Phon e Number [facility] - [address] [place], [place] [address] [facility] [place] [address] Laboratories-[facility] [address] documented in this encounter Visit Diagnoses Diagnosis Malignant Neoplasm Of Ovary Laterality U nknown (HCC) - Primary Personal History Of Malignant Neoplasm O f Ovary Lesion Liver Preprocedural Lab Exam documented in this encounter
--- OUTSIDE RECORDS SUMMARY | 2022-03-06 01:52 | XMS_ITS | Encounter Summary ---
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 [address] [place] [address] [place] [phone] Referral ID Status Reason Start Date Expiration Date Visits V isits Requested Authorized [id number] Authorized 02/17/2021 02/17/2022 12 12 Encounter Details Date Type Department Care Team Description 04/13/2021 Hospital Encounter Department of Walter Barnhart Malign ant Neoplasm Of Ovary Laterality Unknown (HCC); Laboratory Medicine Kelly De La Cruz, Ph. D. Neutropenia Drug Induced (HCC) in [address] [place] [phone] [place], [place] [phone] (Work) [phone] Social History Tobacco Use Types Packs/Day Years [...] or relatives? How often do you attend synagogue or 1 to 4 times per year 02/09 jew services? Do you belong to any clubs or Yes 02/26/2021 organizations such as synagogue groups, unions, fraternal or athletic groups, or [...] Sig Dispensed Refills Start Date End Date apixaban (ELIQUIS) 2.5 mg Take 1 tablet (2.5 48 tablet 0 08/10/2021 tablet mg total) by mouth 2 (two) [...] hours as needed for pain. magnesium hydroxide (MILK Take 30 mL by mouth 0 1 07/14/2020 08/10/2021 OF MAGNESIA) 400 mg/5 mL 2 (two) times a day suspension as needed (constipation). ondansetron (ZOFRAN) 8 mg Take 1 tablet (8 mg 30 tablet 3 0 02/23/2021 08/10/2021 tabletIndications: total) by mouth Malignant Neoplasm Of every 8 (eight) Ovary Laterality Unknown hours as needed for (HCC) nausea or vomiting. prochlorperazine Take 1 tablet (10 mg 30 tablet 3 1 08/10/2021 (COMPAZINE) 10 mg total) by mouth tabletIndications: every 6 (six) hours Malignant Neoplasm Of as needed for nausea Ovary Laterality Unknown or vomiting (HCC) (unrelieved by ondansetron). progesterone (PROMETRIUM) Take 200 mg by mouth 0 12/17/2020 04/25/2021 100 mg capsule at bedtime. sennosides-docusate Take 1 tablet by 0 05/13/2021 08/10/2021 sodium (SENOKOT-S) 8.6-50 mouth 2 (two) times mg per tablet a day as needed for constipation (especially while on narcotic pain medication). Vyvanse 70 mg capsule Take 70 mg by mouth 0 01/2408/10/2021 daily. documented as of this encounter Plan of Treatment Upcoming Encounters Date Type Specialty Care Team Description 04/11/2022 Clinical Communication Admitting/Central Scheduling 04/13/2022 Appointment Laboratory Medicine Debbie Ivey M.D. [address] [place] [phone] 04/13/2022 Office Visit Oncology Walter Barnhart M.D., Ph.D. [address] [place] [address] documented as of this encounter Procedures Procedure Name Priority Date/Time Associated Comments Diagnosis CBC CHEMO - NO ALERTS Routine 04/13/2021 9:15 Malignant Neopla sm Results for this AM CDT Of Ovary procedure are i n Laterality Unknown the resul ts (HCC) section. Neutropenia Drug Induced (HCC) CANCER AG 125 (CA 125), Routine 04/13/2021 9:15 Malignant Neop lasm Results for this S AM CDT Of Ovary procedure are i n Laterality Unknown the resul ts (HCC) section. Neutropenia Drug Induced (HCC) ASPARTATE Routine 04/13/2021 9:15 Malignant Neoplasm Result s for this AMINOTRANSFERASE (AST), AM CDT Of Ovary proc edure are in S/P Laterality Unknown the resul ts (HCC) section. Neutropenia Drug Induced (HCC) CREATININE WITH EGFR, Routine 04/13/2021 9:15 Malignant Neopla sm Results for this S/P AM CDT Of Ovary procedure are i n Laterality Unknown the resul ts (HCC) section. Neutropenia Drug Induced (HCC) BILIRUBIN, TOT, S/P Routine 04/13/2021 9:15 Malignant Neoplasm Results for this AM CDT Of Ovary procedure are i n Laterality Unknown the resul ts (HCC) section. Neutropenia Drug Induced (HCC) documented in this encounter Results Creatinine with Estimated GFR (04/13/2021 9:15 AM CDT) athologist Signature Creatinine 0.69 0.59 - 04/13/2021 NPRG 1.04 mg/dL 9:39 AM CDT eGFR-Black/Afric >90 >=60 04/13/2021 NPRG an Brazilian mL/min/BSA 9:39 AM CDT Comment: ----ADDITIONAL INFORMATION---- Estimated GFR calculated using the 2009 CKD_EPI creatinine equation. eGFR Non-Black/ >90 >=60 mL/min/BSA 04/13/2021 9:39 AM CDT NPRG Comment: ----ADDITIONAL INFORMATION---- Estimated GFR calculated using the 2009 CKD_EPI creatinine equation. Specimen Anatomical Collection Method Collection Time Receive d Time (Source) Location / / Volume Laterality Blood (Blood, 04/13/2021 9:15 AM 04/13/20 9:17 Venous) CDT AM CDT Walter Barnhart M.D., Ph.D. LAB BLOOD ADD-ON Performing Organization Address City/State/ZIP Code Phon e Number [facility]- [address] [place], [place] [address] [place] [address] [facility] [place] [address] [facility] [address] CBC, Chemotherapy, No Alerts (04/13/2021 9:15 AM CDT) athologist Signature Hemoglobin 13.3 11.6 - 15.0 04/13/2021 NPRG g/dL 9:23 AM CDT Platelet Count 248 157 - 371 04/13/2021 NPRG x10(9)/L 9:23 AM CDT Leukocytes 3.4 3.4 - 9.6 04/13/2021 NPRG x10(9)/L 9:23 AM CDT Neutrophils 1.76 1.56 - 6.45 04/13/2021 NPRG x10(9)/L 9:23 AM CDT Specimen Anatomical Collection Method Collection Time Receive d Time (Source) Location / / Volume Laterality Blood (Blood, 04/13/2021 9:15 AM 04/13/20 9:17 Venous) CDT AM CDT Walter Barnhart M.D., Ph.D. LAB BLOOD ADD-ON Performing Organization Address [facility] Phon e Number [address] LAB NPRG [address] Bilirubin, Total (04/13/2021 9:15 AM CDT) P athologist Signature Bilirubin, 0.6 <=1.2 mg/dL 04/13/2021 NPRG Total, P 9:39 AM CDT Specimen Anatomical Collection Method Collection Time Receive d Time (Source) Location / / Volume Laterality Blood (Blood, 04/13/2021 9:15 AM 04/13/20 9:17 Venous) CDT AM CDT Waltre Barnhart M.D., Ph.D. LAB BLOOD ADD-ON Performing Organization Address City/[facility] Phon e Number [address] LAB NPRG [address] AST (Aspartate Aminotransferase) (04/13/2021 9:15 AM CDT) Patholo gist Method Time Signature Aspartate 40 8 - 43 04/13/2021 NPRG Aminotransferase U/L 9:39 AM CDT (AST), P Specimen Anatomical Collection Method Collection Time Receive d Time (Source) Location / / Volume Laterality Blood (Blood, 04/13/2021 9:15 AM 04/13/20 9:17 Venous) CDT AM CDT Walter Barnhart M.D., Ph.D. LAB BLOOD ADD-ON Performing Organization Address City/State/ZIP Code Phon e Number [facility]- [address] [place], [place] [address] [place] [address]G [facility] [place] [place] [address] (ABNORMAL) Cancer Antigen 125 (CA 125) (04/13/2021 9:15 AM CDT) athologist Signature Cancer Ag 125 166 (H) <46 U/mL 04/13/2021 AUST (CA 125), S 10:20 PM CDT Comment: Biotin has been identified by the daisy wall as a potential interfering substance. ??Higher concentr ations of biotin may be found in multivitamins, hair/nail supple ments, and workout supplements. ??If the result does not [facility] clinical observations, repeat testing after [...] Location / / Volume Laterality Blood (Blood, 04/13/2021 9:15 AM 04/13/20 9:49 Venous) CDT PM CDT Walter Barnhart M.D., Ph.D. LAB BLOOD ADD-ON Performing Organization Address City/State/ZIP Code Phon e Number [facility]- [address] [place] [address] [facility] [place] [address] [facility] [address] documented in this encounter Visit Diagnoses Diagnosis 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
--- OUTSIDE RECORDS SUMMARY | 2022-03-06 01:52 | XMS_ITS | Encounter Summary ---
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 [facility] Procedures Stomal Therapy [address] [place], [place] [phone] Referral ID Status Reason Start Date Expiration Date Visits Requ ested Visits Authorized [id number] Closed 05/03/2021 05/03/2022 1 1 Encounter Details Date Type Department Care Team Description 05/04/2021 Clinical Support Division of Colon Mike Oviedo M.D. [address] [place] [phone] Education Need Ostomy (Primary Dx); and Rectal Surgery Stefanie Muse R.N., COCN Malignant Neoplasm Of Ovary Laterality U nknown (HCC) in [place], [place] [address] [place] [phone] Social History Tobacco Use Types Packs/Day Years [...] 1 to 4 times per year 02/09 baptism services? Do you belong to any clubs [...] documented as of this encounter Progress Notes Stefanie Muse R.N., COCN - 05/04/2021 3:30 PM CST SUBJECTIVE CHIEF COMPLAINT/REASON FOR VISIT Preoperative teaching and stoma site marking HISTORY OF PRESENT ILLNESS Angelica Yang is a 45 y.o. female was referred by Denisha Oviedo M.D. for preoperative marking for a possible stoma. ASSESSMENT / PLAN Patient declined preoperative education. Stoma sites marked in #1 RLQ, #1 LLQ, #2 RUQ and #2 LUQ. There is some superficial creasing in the upper quadrants. Patient preferred cheng that would be concealed in her pants. The patient's abdomen is flat where the lower cheng are located. These sites are inthe patient's line of vision, in the rectus muscle, and free of skin creases or scars. TENDER documented in this encounter Plan of Treatment Upcoming Encounters Date Type Specialty Care Team Description 04/11/2022 Clinical Communication Admitting/Central Scheduling 04/13/2022 Appointment Laboratory Medicine Debbie Ivey M.D. [address] [place] [phone] 04/13/2022 Office Visit Oncology Walter Barnhart M.D., Ph.D. [address] [place] [phone] documented as of this encounter Procedures Procedure Name Priority Date/Time Associated Diagnosis Comme nts CRS STOMAL THERAPY Routine 05/04/2021 3:00 PM DOOR TENDER Malignant Ne oplasm Of Ovary Laterality Unknown (HCC) documented in this encounter Visit Diagnoses Diagnosis Education Need Ostomy - Primary Malignant Neoplasm Of Ovary Laterality U nknown (HCC) documented in this encounter
--- OUTSIDE RECORDS SUMMARY | 2022-03-06 01:52 | XMS_ITS | Encounter Summary ---
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 [place], [place] [address] [place] [id number] [place], [place] [phone] (Wo rk) Social History Tobacco Use Types [...] 1 to 4 times per year 02/09 denominational services? Do you belong to any clubs [...] Sign Reading Time Taken Comments Blood Pressure 115/70 04/14/2021 7:18 AM CDT Pulse 63 04/14/2021 7:18 AM CDT Temperature 36.6 ??C (97.9 ??F) 04/14/2021 7:18 AM CDT Respiratory Rate - - Oxygen Saturation - - Inhaled Oxygen Concentration - - Weight 59.5 kg (131 lb 2.8 oz) 04/14/2021 7:18 AM CDT Height - - Body Mass Index 20.56 04/07/2021 8:47 AM CDT documented in this encounter Plan of Treatment Upcoming Encounters Date Type Specialty Care Team Description 04/11/2022 Clinical Communication Admitting/Central Scheduling 04/13/2022 Appointment Laboratory Medicine Debbie Ivey M.D. [address] [place] [phone] 04/13/2022 Office Visit Oncology Walter Barnhart M.D., Ph.D. [address] [place] [phone] documented as of this encounter Visit Diagnoses Diagnosis Malignant Neoplasm Of Ovary Laterality U nknown (HCC) - Primary Neutropenia Drug Induced (HCC) documented in this encounter Administered Medications Inactive Administered Medications - up to 3 most recent administrations Medication Order MAR Action Action Date Dose Rate Site CARBOplatin 730 mg in NaCl New Bag 04/14/2021 12:00 PM CDT 730 mg 696 mL/hr 0.9% 348 mL IVPB (PARAPLATIN) 730 mg (rounded from 729.6 mg, Target AUC = 6), intravenous, at 696 mL/hr, Administer over 30 Minutes, Once, On Misty 04/14/21 at 1115, For 1 dose dexamethasone in NaCl 0.9% IVPB 12 New Bag 04/14/2021 7:48 AM CDT 12 mg 200 mL/hr mg (DECADRON) 12 mg, intravenous, at 200 mL/hr, Administer over 15 Minutes, Once, On Misty 04/14/21 at 0745, For 1 dose, Give prior to PACLitaxel Refrigerate diphenhydrAMINE 50 mg in NaCl 0.9% New Bag 04/14/2021 9:01 AM CDT 50 mg 204 mL/hr IVPB (BENADRYL) 50 mg, intravenous, at 204 mL/hr, Administer over 15 Minutes, Once, On Misty 04/14/21 at 0745, For 1 dose, Pre taxol. ivpb vs ivp to help with symptoms famotidine injection 20 mg (PEPCID) Given 04/14/2021 7:42 AM CDT 20 mg 20 mg, intravenous, Once, On Misty 04/14/21 at 0745, For 1 dose, Give prior to PACLitaxel See IVAG for administration guidelines. fosaprepitant in NaCl 0.9% IVPB 150 New Bag 04/14/2021 8:22 AM CDT 150 mg 500 mL/hr mg (EMEND) 150 mg, intravenous, at 500 mL/hr, Administer over 30 Minutes, Once, On Misty 04/14/21 at 0745, For 1 dose, Incompatible with solutions containing divalent cations (calcium, magnesium) including lactated Ringer's solution. ondansetron in NaCl 0.9% IVPB 16 mg New Bag 04/14/2021 8:00 AM CDT 16 mg 232 mL/hr (ZOFRAN) 16 mg, intravenous, at 232 mL/hr, Administer over 15 Minutes, Once, On Misty 11/4/21 at 0745, For 1 dose PACLitaxeL 294 mg in NaCl 0.9% New Bag 04/14/2021 9:19 AM CDT 294 mg 99.7 mL/hr (non-PVC) 299 mL IVPB (TAXOL) 294 mg (rounded from 295.75 mg = 175 mg/m2 ? 1.69 m2 Treatment Plan BSA from Measured weight), intravenous, at 99.7 mL/hr, Administer over 3 Hours, Once, On Misty 04/14/21 at 0815, For 1 dose, Administer via 0.22 micron in-line filter. pegfilgrastim on-body Given 04/14/2021 12:05 PM CDT 6 mg Left Upper Abdomen injector 6 mg (NEULASTA ONPRO) 6 mg, subcutaneous, Once, On Misty 04/14/21 at 0745, For 1 dose documented in this encounter
--- OUTSIDE RECORDS SUMMARY | 2022-03-06 01:52 | XMS_ITS | Encounter Summary ---
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] Procedures UT SALPINGO-OOPHORECTOMY BILAT HYST UT HEPATECTMY RESECT PARTL LOBECT UT US GUIDE INTRAOPERATIVE UT CYSTHRSCPY W INS URETERAL STNT LAPAROTOMY, TUMOR DEBULKING HYSTERECTOMY ABDOMINAL WITH BILATERAL SALPINGO-OOPHORECTOMY OMENTECTOMY POSSIBLE RESECTION SMALL INTESTINE WITH ANASTOMOSIS, PROCEED INDICATED WEDGE RESECTION LIVER INTRAOPERATIVE ULTRASOUND LIVER CYSTOSCOPY INSERTION STENT URETER Referral ID Status Reason Start Date Expiration Date Visits Requ ested Visits Authorized [id number] 1 1 Encounter Details Date Type Department Care Team Description 05/09/2021 Surgery RST [facility] OR Denisha Oviedo E, LAPAROTOMY, [address] [facility] M.D. EXPLORATORY. [place], [place] [address] [facility] [id number] [place], [place] [phone] (Wo rk) Social History Tobacco Use Types [...] 02/26/2021 organizations such as tenriism groups, unions, fraSensus Experience or athletic groups, or school groups? How [...] to sleep or slept in a senior care (including now)? Education Answer Date Recorded What is the highest level of school Bachelor's degree (e.g., BA, AB, 02/26/2021 you have completed or the highest BS) degree you have received? Sex Assigned at Date Recorded Female 02/10/2021 8:20 AM CDT documented as of this encounter Last Filed Vital Signs Vital Sign Reading Time Taken Comments Blood Pressure 102/63 05/09/2021 6:15 PM BEHAVIOR SPECIALIST Pulse 56 05/09/2021 6:15 PM BEHAVIOR SPECIALIST Temperature 36.6 ??C (97.9 ??F) 05/09/2021 6:19 PM BEHAVIOR SPECIALIST Respiratory Rate 14 05/09/2021 6:15 PM BEHAVIOR SPECIALIST Oxygen Saturation 98% 05/09/2021 6:15 PM BEHAVIOR SPECIALIST Inhaled Oxygen Concentration - - Weight 59.6 kg (131 lb 6.3 oz) 05/09/2021 7:27 AM BEHAVIOR SPECIALIST Height 167 cm (5' 5.75) 05/09/2021 7:27 AM BEHAVIOR SPECIALIST Body Mass Index 22.23 05/09/2021 7:27 AM BEHAVIOR SPECIALIST documented in this encounter Discharge Summaries Lynn [...] Report electronically signed by Sophia Ndiaye M.D. [id number] I verify that I have examined all relevant slides/materials for the specimen(s) and rendered or confirmed the diagnosis. Gross Description A. Received fresh labeled umbilical nodule is a 2.2 x 1.7 x 0.6 cm fragment of red-orosco soft tissue. There is a 0.7 x 0.6 cm nodule identified upon sectioning. All submitted for permanent sections only. Grossed by [facility]. B. Received fresh labeled falciform ligament is a 3.9 x 3.2 x 0.6 cm portion of pink-red fibrofatty tissue. Behavioral Health Associate tissue submitted for permanent sections only. Grossed by [facility]. C. Received fresh labeled omentum is a 42 x 12 x 1 cm portion of omentum. There is a 0.3 x 0.2 x 0.2 cm calcified nodule. Lymph nodes are identified. Behavioral Health Associate tissue submitted for permanent sections only. Grossed by SOFIE. Nader. Received fresh labeled liver wedge segment 4B/3 nodule is a 18 gram, 4.3 x 3.8 x 3.7 cm liver wedge specimen. A single 2.6 x 2.4 x 1.4 cm orosco-white mass is present 0.1 cm from the inked surgical margin. Margin is submitted perpendicularly. Behavioral Health Associate tissue submitted for permanent sections only. Grossed by EDNA . E. Received fresh labeled right diaphragm is a 7.1 x 3.2 x 1.6 cm portion of red-orosco fibrous tissue. At one aspect, there is a 3.6 x 1.7 x 0.6 cm nodule. Additional smaller nodules are identified. Behavioral Health Associate tissue submitted for permanent sections only. Grossed by [facility]. F. Received fresh labeled right anterior abdominal wall is a 3.8 x 2 x 0.5 cm portion of red-pink, peritonealized fibromembranous tissue. A 0.2 cm nodule is present. Behavioral Health Associate tissue submitted for permanent sections only. Grossed by EDNA. G. Received fresh labeled right pelvic gutter is a 2.2 x 1 x 0.2 cm aggregate of red-pink fibromembranous tissue. All submitted for permanent sections only. Grossed by SOFIE. H. Received fresh labeled left mid diaphragm is a 2.2 x 1 x 0.2 cm portion of cauterized pink-white fibromembranous tissue. All submitted for permanent sections only. Grossed by RAL. Hankins Received fresh labeled spleen is a 238 gram, 14.6 x 8.8 x 4.2 cm s plenectomy specimen. The capsule is smooth and unremarkable. There is a 3 x 1.8 x 1.2 cm nodule. Hilar lymph nodes are not identified. Behavioral Health Associate tissue submitted for permanent sections only. Grossed by DJS. Tierney Received fresh labeled right fallopian tube and ovary is a 4.8 gram, 6.8 x 4.9 x 2.6 cm ovary with a 7.7 x 0.8 cm fallopian tube. The ovary has implants and adhesions on the outer surface and a cystic to solid cut surface. Papillary and friable excrescences are identified within the cystic component. The fallopian tube has multiple adhesions and serosal implants. Behavioral Health Associate tissue submitted for permanent sections only. Grossed by DJS. Lee Received fresh labeled uterus, left fallopian tube [...] 3 x 1.6 cm of soft tissue. Behavioral Health Associate tissue submitted for permanent sections only. Grossed by RAK. Gallegos Received fresh labeled portion of sigmoid colon is a 13.5 cm in length portion of colon. There are serosal tumor imp lants and adhesions. The mucosa is unremarkable. Behavioral Health Associate tissue submitted for permanent sections only. Grossed [...] including a pelvic exam. If scheduled at [facility] then appointment desk will contact you to [...] important to have your annual flu vaccine VIOR SPECIALIST documented in this encounter Discharge Instructions AttachmentsThe following attachments cannot be sent through Care Everywhere. Apixaban (By mouth) (Cook Islander)Cyclobenzaprine (By mouth) ([place])Hydromorphone (By mouth) ([place]er)documented in this encounter Medications at Time of Discharge Medication Sig Dispensed Refills Start Date End Date tlpokzc-rsxg-lgcyj-oreg- Take 1 tablet by 0 capryl 100 [...] Time Ins Outs 05/13 701 - 05/14 0700 In: 2340 [P.O.:2340] Out: 4000 [Urine:4000] 05/14 07 - 05/14 1900 In: 200 [P.O.:200] Out: - Physical exam: [...] The patient was evaluated and discussed with PROJECT DEVELOPMENT MANAGER ONC fellow Dr. Lagos and Dr. Stone who are in agreement with the plan of care. VIOR SPECIALIST Ruben Rod M.D. - 05/13/2021 5:40 AM [...] Current Shift I/O Time Ins Outs 05/12 701 - 05/13 700 In: 2160 [P.O.:2160] Out: 3795 [Urine:3625; Drains:170] 05/12 1901 - 05/13 700 In: 420 [P.O.:420] Out: 1225 [Urine:1225] Physical [...] M.D. Please direct questions/concerns to service pagers. VIOR SPECIALIST Ruben Rod M.D. - 05/12/2021 5:42 AM [...] Current Shift I/O Time Ins Outs 05/11 701 - 05/12 700 In: 980 [P.O.:980] Out: 3550 [Urine:1800; Drains:300] 05/11 1901 - 05/12 700 In: - Out: 1640 [Urine:100; Drains:90] Physical [...] Neoplasm Of Ovary Code Status: Full Code Boat Driver: Discussed final pathology report. She will f/u [...] M.D. Please direct questions/concerns to service pagers. VIOR SPECIALIST Rubne Rod M.D. - 05/11/2021 6:15 AM CST [...] Results from last 7 days Lab Units 05/11/211405/10/21 01105/09/21 1539 WBC x10(9)/L 11.9* 13.5* -- VBGRS HEMOGLOBIN g/dL -- -- 8.1* HEMOGLOBIN g/dL 8.4* 9.6* -- HEMATOCRIT % 25.9* 29.5* -- MCV fL 94.2 93.7 -- PLATELETS AUTO x10(9)/L 281 270 -- Results from last 7 days Lab Units 05/11/211405/10/21 01105/09/21 1539 SODIUM mmol/L 140 137 -- NABS [...] Neoplasm Of Ovary Code Status: Full Code Boat Driver: Follow up final pathology. She will f/u [...] M.D. Please direct questions/concerns to service pagers. VIOR SPECIALIST Sussy Albert M.D. - 05/10/2021 10:27 PM [...] with the patient and as well as overedger onc fellow content designer Dr. Lagos. Addendum: Chest x-ray completed and prelim read negative for pneumo; small bilateral pleural effusions and atelectasis present. Noticeable air fluid levels in stomach. Will continue with oxygen supplementation overnight and continuous pulse oximetry. Encourage IS when awake. Discussed with patient andsridharsband. Sussy Albert M.D. VIOR SPECIALIST Harrison Zaldivar Pharm.D., R.Ph. - 05/10/2021 7:52 AM CST [...] will be needed. Harrison Zaldivar Pharm.D., R.Ph. VIOR SPECIALIST Cami Duran M.D. - 05/10/2021 5:37 AM CST SUBJECTIVE Angelica Yang was seen and examined this [...] & Screen Expiration 05/12/2021 23:59 Testing Location [place] Blood Gas with Coox, Arterial Collection Time: [...] Date/Time SARS CoV-2 RNA, PCR, Varies Asymptomatic [[id number]] Collected: 05/08/21 0708 Lab Status: Final result [...] and Drug Administration and is used per vehicle and equipment cleaner's instructions. Performance characteristics were verified by [facility] in a manner consistent with CLIA requirements. Visit the CDC website: https://www.cdc.gov/coronavirus/ for the most recent guidelines on Coronavirus testing. Fact Sheet for Healthcare Providers: https://www.fda.gov/media/290882/download Fact Sheet for Patients: https://www.fda.gov/media/797116/download SARS Coronavirus 2, PCR Rapid, V Symptomatic [[id number]] Collected: 04/25/21 0320 Lab Status: Final result [...] at the following links: For Healthcare Providers: https://www.fda.gov/media/352185/download For Patients: https://www.fda.gov/media/990308/download SARS Coronavirus 2, Source, Rapid Swab, Nasopharynx Bacteria / Ebony Culture, Blood #1 [[id number]] Collected: 04/25/21 020 Lab Status: Final result Specimen: Blood, Peripheral Draw Updated: 04/30/21 030 Bacteria/Ebony Culture, Blood No growth after 5 day/s of incubation. Bacteria / Ebony Culture, Blood #2 [[id number]] Collected: 04/25/21 0158 Lab Status: Final result [...] concerns. Cami Duran MD Resident General Surgery [employer] [phone] pager [phone] phone [email or web address] VIOR SPECIALIST Ruben Rod M.D. - 05/10/2021 5:09 AM [...] Current Shift I/O Time Ins Outs 05/09 0701 - 05/10 0700 In: 6724 [P.O.:720] Out: 3205 [Urine:2445; Drains:260] 05/09 1901 - 05/10 0700 In: 1524 [P.O.:420] Out: 1840 [Urine:1720; Drains:120] [...] Results from last 7 days Lab Units 05/10/21 01105/09/21 1539 05/09/21 1301 WBC x10(9)/L 13.5* -- -- VBGRS HEMOGLOBIN g/dL -- 8.1* 9.2* HEMOGLOBIN g/dL 9.6* -- -- HEMATOCRIT % 29.5* -- -- MCV fL 93.7 -- -- PLATELETS AUTO x10(9)/L 270 -- -- Results from last 7 days Lab Units 05/10/21 01105/09/21 1539 05/09/21 1301 SODIUM mmol/L 137 -- [...] Neoplasm Of Ovary Code Status: Full Code Boat Driver: Follow up final pathology. She will f/u [...] am available if needed. Sussy Albert M.D. VIOR SPECIALIST ZaldivarHarrison Pharm.D., R.Ph. - 05/09/2021 6:56 AM CST Images from the original note were not included. Admission Medication History Note Adherence issues: No concerns Medication list source: Patient Medication related information: Patient stated she would like to continue her PUBLICATIONS MANAGER Vyvanse while in the hospital. Prior to Admission Medications Med List Status: Pharmacy Complete Set By: Harrison Zaldivar Pharm.D., R.Ph. at 05/09/2021 6:56 AM Taking? Last [...] for nausea or vomiting (unrelieved by ondansetron). iexsdsb-mskk-uimsc-oreg-capryl 100 mg-150 mg- 50 mg-150 mg capsule 05/02/2021 -- -- Take 1 tablet by mouth daily. Vyvanse 70 mg capsule 05/08/2021 01/24/21 -- Take 70 mg by mouth daily. VIOR SPECIALIST documented in this encounter Nursing Notes Celeste Cameron RChapincitoN. - 05/14/2021 11:02 AM CST Shift Goals: [...] unit in a wheelchair with transport services. VIOR SPECIALIST Celeste Goldberg R.N. - 05/09/2021 9:44 PM [...] remains free from fall/fall injury Outcome: Progressing VIOR SPECIALIST documented in this encounter OR Notes Op Note - Wilma Castro M.D. 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 Welsh was placed for less than 3 minutes and hemostasis was achieved using chromic mattress suture incorporatingGlisson's capsule above and below the bleeding area with fibrillar at base. The remainder of the parenchymal transection margin was ablated using the Aquamantys. Hemostasis was excellent. I then yielded the procedure back to Dr. Oviedo and her team. EBL for liver portion approximately 50mL Wilma Castro M.D. VIOR SPECIALIST Op Note - Denisha Oviedo M.D. 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 Residual: 0/micro. Boat Driver Organs, Pelvic Colon & Peritoneum Initial: > [...] recovery in stable condition. Denisha Oviedo M.D. VIOR SPECIALIST Op Note - Jacobo Banda M.D. - [...] primary team post operatively. Jacobo Banda MD VIOR SPECIALIST Brief Op Note - Che Martinez M.D. [...] 6300 Crystalloids Complications None Che Martinez M.D. VIOR SPECIALIST documented in this encounter Miscellaneous Notes Result Encounter Note - Che Martinez M.D. - 05/12/2021 4:51 PM BEHAVIOR SPECIALIST I have reviewed the final pathology report and the identified diagnosis is consistent with the patient's clinical presentation. VIOR SPECIALIST Hospital Course - Lynn Armstrong M.D. - [...] Report electronically signed by Sophia Ndiaye M.D. [phone] I verify that I have examined all relevant slides/materials for the specimen(s) and rendered or confirmed the diagnosis. Gross Description A. Received fresh labeled umbilical nodule is a 2.2 x 1.7 x 0.6 cm fragment of red-orosco soft tissue. There is a 0.7 x 0.6 cm nodule identified upon sectioning. All submitted for permanent sections only. Grossed by [facility]. B. Received fresh labeled falciform ligament is a 3.9 x 3.2 x 0.6 cm portion of pink-red fibrofatty tissue. Behavioral Health Associate tissue submitted for permanent sections only. Grossed by [facility]. C. Received fresh labeled omentum is a 42 x 12 x 1 cm portion of omentum. There is a 0.3 x 0.2 x 0.2 cm calcified nodule. Lymph nodes are identified. Behavioral Health Associate tissue submitted for permanent sections only. Grossed by RAL. Doe. Received fresh labeled liver wedge segment 4B/3 nodule is a 18 gram, 4.3 x 3.8 x 3.7 cm liver wedge specimen. A single 2.6 x 2.4 x 1.4 cm orosco-white mass is present 0.1 cm from the inked surgical margin. Margin is submitted perpendicularly. Behavioral Health Associate tissue submitted for permanent sections only. Grossed by Dorothy . E. Received fresh labeled right diaphragm is a 7.1 x 3.2 x 1.6 cm portion of red-orosco fibrous tissue. At one aspect, there is a 3.6 x 1.7 x 0.6 cm nodule. Additional smaller nodules are identified. Behavioral Health Associate tissue submitted for permanent sections only. Grossed by F. Received fresh labeled right anterior abdominal wall is a 3.8 x 2 x 0.5 cm portion of red-pink, peritonealized fibromembranous tissue. A 0.2 cm nodule is present. Behavioral Health Associate tissue submitted for permanent sections only. Grossed by EDNA. Natalie. Received fresh labeled right pelvic gutter is a 2.2 x 1 x 0.2 cm aggregate of red-pink fibromembranous tissue. All submitted for permanent sections only. Grossed by H. Received fresh labeled left mid diaphragm [...] nodule. Hilar lymph nodes are not identified. Behavioral Health Associate tissue submitted for permanent sections only. Grossed [...] tube has multiple adhesions and serosal implants. Behavioral Health Associate tissue submitted for permanent sections only. Grossed by DJDorothy. K. Received fresh labeled uterus, left fallopian tube [...] 3 x 1.6 cm of soft tissue. Behavioral Health Associate tissue submitted for permanent sections only. Grossed by RAK. Gallegos Received fresh labeled portion of sigmoid colon is a 13.5 cm in length portion of colon. There are serosal tumor imp lants and adhesions. The mucosa is unremarkable. Behavioral Health Associate tissue submitted for permanent sections only. Grossed [...] including a pelvic exam. If scheduled at [facility] then appointment desk will contact you to [...] important to have your annual flu vaccine VIOR SPECIALIST documented in this encounter Plan of Treatment Upcoming Encounters Date Type Specialty Care Team Description 04/11/2022 Clinical Communication Admitting/Central Scheduling 04/13/2022 Appointment Laboratory Medicine Debbie Ivey M.D. [address] [place] [address] 04/13/2022 Office Visit Oncology Walter Barnhart M.D., Ph.D. [address] [place] [address] Scheduled Referrals Name Type Priority Associated Order Schedule Diagnoses General Surgery Post Outpatient Referral Routine Expected: Op (clinic) 08/08/2021 (Approximate), Expires: 08/08/2022 Obstetrics and Outpatient Referral Routine Expect ed: Gynecology Post Op 2 (clinic) (Approximate), Expires: 05/12/2024 documented as of this encounter Procedures Procedure Name Priority Date/Time Associated Comments Diagnosis DX CHEST PORTABLE 1 RAD - Semiurgent 05/12/2021 8:50 R esults for VIEW (Fast; most ED AM BEHAVIOR SPECIALIST this procedur e patients; some are in the inpatients) results section. BASIC METABOLIC Routine 05/12/2021 12:35 Results for PANEL, S/P AM BEHAVIOR SPECIALIST this procedure are in the results section. CBC WITHOUT Routine 05/11/2021 12:15 Results for DIFFERENTIAL, B AM BEHAVIOR SPECIALIST this procedu re are in the results section. BASIC METABOLIC Routine 05/11/2021 12:15 Results for PANEL, S/P AM BEHAVIOR SPECIALIST this procedure are in the results section. DX CHEST AP OR PA RAD - Semiurgent 05/10/2021 10:41 Re sults for AND LATERAL 2 VIEWS (Fast; most ED PM BEHAVIOR SPECIALIST this p rocedure patients; some are in the inpatients) results section. POTASSIUM, S/P Timed 05/10/2021 4:42 Results fo r AM BEHAVIOR SPECIALIST this procedure are in the results section. CBC WITHOUT Routine 05/10/2021 1:19 Results for DIFFERENTIAL, B AM BEHAVIOR SPECIALIST this procedu re are in the results section. COMPREHENSIVE Routine 05/10/2021 1:19 Results for METABOLIC PANEL, S/P AM BEHAVIOR SPECIALIST this pr ocedure are in the results section. DX ABDOMEN 1 VIEW RAD - Routine 05/09/2021 5:14 Result s for (most inpatients PM BEHAVIOR SPECIALIST this proced ure and all are in the outpatients) results section. ADULT OXYGEN THERAPY Routine 05/09/2021 5:10 PM BEHAVIOR SPECIALIST PATIENT STATUS STAT 05/09/2021 3:39 Results fo r PM BEHAVIOR SPECIALIST this procedure are in the results section. SODIUM, B STAT 05/09/2021 3:39 Results for PM BEHAVIOR SPECIALIST this procedure are in the results section. ABG W/COOX STAT 05/09/2021 3:39 Results for PM BEHAVIOR SPECIALIST this procedure are in the results section. POTASSIUM, B STAT 05/09/2021 3:39 Results for PM BEHAVIOR SPECIALIST this procedure are in the results section. GLUCOSE, WHOLE BLOOD STAT 05/09/2021 3:39 Resu lts for PM BEHAVIOR SPECIALIST this procedure are in the results section. CALCIUM, IONIZED, STAT 05/09/2021 3:39 Results for S/B PM BEHAVIOR SPECIALIST this procedure are in the results section. PATIENT STATUS STAT 05/09/2021 1:01 Results fo r PM BEHAVIOR SPECIALIST this procedure are in the results section. SODIUM, B STAT 05/09/2021 1:01 Results for PM BEHAVIOR SPECIALIST this procedure are in the results section. ABG W/COOX STAT 05/09/2021 1:01 Results for PM BEHAVIOR SPECIALIST this procedure are in the results section. POTASSIUM, B STAT 05/09/2021 1:01 Results for PM BEHAVIOR SPECIALIST this procedure are in the results section. GLUCOSE, WHOLE BLOOD STAT 05/09/2021 1:01 Resu lts for PM BEHAVIOR SPECIALIST this procedure are in the results section. CALCIUM, IONIZED, STAT 05/09/2021 1:01 Results for S/B PM BEHAVIOR SPECIALIST this procedure are in the results section. SURGICAL PATHOLOGY, Routine 05/09/2021 10:04 Malignant Resu lts for [facility] AM BEHAVIOR SPECIALIST Neoplasm Of Ovary this proce dure Laterality are in the Unknown (HCC) results section. COLECTOMY LEFT WITH 05/09/2021 8:11 Malignant ANASTOMOSIS AM BEHAVIOR SPECIALIST Neoplasm Of Ovary Laterality Unknown (HCC) EXPLORATION 05/09/2021 8:11 Malignant ABDOMINAL - LYSIS AM BEHAVIOR SPECIALIST Neoplasm Of Ovary ADHESIONS Laterality Unknown (HCC) STRIPPING DIAPHRAGM 05/09/2021 8:11 Malignant AM BEHAVIOR SPECIALIST Neoplasm Of Ovary Laterality Unknown (HCC) OTHER 05/09/2021 8:11 Malignant AM BEHAVIOR SPECIALIST Neoplasm Of Ovary Laterality Unknown (HCC) SPLENECTOMY 05/09/2021 8:11 Malignant AM BEHAVIOR SPECIALIST Neoplasm Of Ovary Laterality Unknown (HCC) CYSTOSCOPY INSERTION 05/09/2021 8:11 Malignant STENT URETER AM BEHAVIOR SPECIALIST Neoplasm Of Ovary Laterality Unknown (HCC) ULTRASOUND LIVER 05/09/2021 8:11 Malignant AM BEHAVIOR SPECIALIST Neoplasm Of Ovary Laterality Unknown (HCC) WEDGE RESECTION 05/09/2021 8:11 Malignant LIVER AM BEHAVIOR SPECIALIST Neoplasm Of Ovary Laterality Unknown (HCC) OMENTECTOMY 05/09/2021 8:11 Malignant AM BEHAVIOR SPECIALIST Neoplasm Of Ovary Laterality Unknown (HCC) HYSTERECTOMY 05/09/2021 8:11 Malignant ABDOMINAL WITH AM BEHAVIOR SPECIALIST Neoplasm Of Ovary SALPINGO - Laterality OOPHORECTOMY Unknown (HCC) DEBULKING TUMOR 05/09/2021 8:11 Malignant OVARY AM BEHAVIOR SPECIALIST Neoplasm Of Ovary Laterality Unknown (HCC) LAPAROTOMY - 05/09/2021 8:11 Malignant EXPLORATORY AM BEHAVIOR SPECIALIST Neoplasm Of Ovary Laterality Unknown (HCC) TYPE AND SCREEN Routine 05/09/2021 7:29 Results f or AM BEHAVIOR SPECIALIST this procedure are in the results section. documented in this encounter Results DX Chest Portable 1 View (05/12/2021 8:50 AM BEHAVIOR SPECIALIST) Anatomical Region Laterality Modality Chest, Thoracic RST LOS, Thoracic ARZ LOS, Thoracic N/A Digital Radiography FLA LOS Specimen (Source) Anatomical Collection Method Collection Time Re ceived Time Location / / Volume Laterality 05/12/2021 8:51 AM BEHAVIOR SPECIALIST Impressions 05/12/2021 8:52 AM BEHAVIOR SPECIALIST No change since 05/10/2021, given differences of technique. Bilateral pleural effusions, greater on the right, layering posteriorly. Stable borderline cardiomegaly, also is accentu ated by technique. Atelectasis or consolidation in both bases. No pneumoth orax. Narrative 05/12/2021 8:52 AM BEHAVIOR SPECIALIST EXAM: ??DX CHEST PORTABLE 1 VIEW Procedure [...] Ruben Rod M.D. IMG DIAGNOSTIC IMAGING PROCE SWATHI (ABNORMAL) Basic Metabolic Panel (05/12/2021 12:35 AM BEHAVIOR SPECIALIST) P athologist Signature Potassium, S 4.7 3.6 - 5.2 05/12/2021 DTL mmol/L 1:20 AM BEHAVIOR SPECIALIST Sodium, S 140 135 - 145 05/12/2021 DTL mmol/L 1:20 AM BEHAVIOR SPECIALIST Chloride, S 105 98 - 107 05/12/2021 DTL mmol/L 1:20 AM BEHAVIOR SPECIALIST Bicarbonate, S 29 22 - 29 05/12/2021 DTL mmol/L 1:20 AM BEHAVIOR SPECIALIST Anion Gap 6 (L) 7 - 15 05/12/2021 DTL 1:20 AM BEHAVIOR SPECIALIST BUN (Blood Urea 12 6 - 21 05/12/2021 DTL Nitrogen), S mg/dL 1:20 AM BEHAVIOR SPECIALIST Creatinine 0.81 0.59 - 05/12/2021 DTL 1.04 mg/dL 1:20 AM BEHAVIOR SPECIALIST eGFR-Non 88 >=60 05/12/2021 DTL Black/ mL/min/BSA 1:20 AM BEHAVIOR SPECIALIST Cypriot Comment: ----ADDITIONAL INFORMATION---- Estimated GFR calculated using the 2009 CKD_EPI creatinine equation. eGFR-Black/ >90 >=60 mL/min/BSA 2020 1:20 AM BEHAVIOR SPECIALIST DTL Comment: ----ADDITIONAL INFORMATION---- Estimated GFR calculated using the 2009 CKD_EPI creatinine equation. Calcium, Total, S 8.4 (L) 8.6 - 10.0 mg/dL 05/12/2021 1:20 AM BEHAVIOR SPECIALIST DTL Glucose, S 93 70 - 140 mg/dL 05/12/2021 1:20 AM BEHAVIOR SPECIALIST D TL Specimen Anatomical Collection Method Collection Time Receive d Time (Source) Location / / Volume Laterality Blood (Blood, 05/12/2021 12:35 05/12/2021 1:04 Venous) AM BEHAVIOR SPECIALIST AM BEHAVIOR SPECIALIST Ruben Rod M.D. LAB BLOOD ADD-ON Performing Organization Address City/State/ZIP Code Phon e Number [facility] - [address] [place], [place] [address] [facility] [place] [address] Laboratories-[facility] [address] [facility] (ABNORMAL) Basic Metabolic Panel (05/11/2021 12:15 AM BEHAVIOR SPECIALIST) P athologist Signature Potassium, S 4.8 3.6 - 5.2 05/11/2021 DTL mmol/L 1:01 AM BEHAVIOR SPECIALIST Sodium, S 140 135 - 145 05/11/2021 DTL mmol/L 1:01 AM BEHAVIOR SPECIALIST Chloride, S 103 98 - 107 05/11/2021 DTL mmol/L 1:01 AM BEHAVIOR SPECIALIST Bicarbonate, S 30 (H) 22 - 29 05/11/2021 DTL mmol/L 1:01 AM BEHAVIOR SPECIALIST Anion Gap 7 7 - 15 05/11/2021 DTL 1:01 AM BEHAVIOR SPECIALIST BUN (Blood Urea 13 6 - 21 05/11/2021 DTL Nitrogen), S mg/dL 1:01 AM BEHAVIOR SPECIALIST Creatinine 0.87 0.59 - 05/11/2021 DTL 1.04 mg/dL 1:01 AM BEHAVIOR SPECIALIST eGFR-Non 81 >=60 05/11/2021 DTL Black/ mL/min/BSA 1:01 AM BEHAVIOR SPECIALIST Cypriot Comment: ----ADDITIONAL INFORMATION---- Estimated GFR calculated using the 2009 CKD_EPI creatinine equation. eGFR-Black/ >90 >=60 mL/min/BSA 2020 1:01 AM BEHAVIOR SPECIALIST DTL Comment: ----ADDITIONAL INFORMATION---- Estimated GFR calculated using the 2009 CKD_EPI creatinine equation. Calcium, Total, S 8.7 8.6 - 10.0 mg/dL 05/11/2021 1:01 AM BEHAVIOR SPECIALIST DTL Glucose, S 99 70 - 140 mg/dL 05/11/2021 1:01 AM BEHAVIOR SPECIALIST D TL Specimen Anatomical Collection Method Collection Time Receive d Time (Source) Location / / Volume Laterality Blood (Blood, 05/11/2021 12:15 05/11/2021 Venous) AM BEHAVIOR SPECIALIST 12:46 AM BEHAVIOR SPECIALIST Ruben Rod M.D. LAB BLOOD ADD-ON Performing Organization Address City/State/ZIP Code Phon e Number [facility] - [address] [place], [place] [address] [facility] [place] [address] Laboratories-[facility] [address] [facility] (ABNORMAL) CBC without Differential (05/11/2021 12:15 AM BEHAVIOR SPECIALIST) [facility] gist Method Time Signature Hemoglobin 8.4 (L) 11.6 - 05/11/2021 DTL 15.0 g/dL 1:30 AM BEHAVIOR SPECIALIST Hematocrit 25.9 (L) 35.5 - 05/11/2021 DTL 44.9 % 1:30 AM BEHAVIOR SPECIALIST Erythrocytes 2.75 (L) 3.92 - 05/11/2021 DTL 5.13 1:30 AM BEHAVIOR SPECIALIST x10(12)/L MCV 94.2 78.2 - 05/11/2021 DTL 97.9 fL 1:30 AM BEHAVIOR SPECIALIST RBC Distrib Width 18.0 (H) 12.2 - 05/11/2021 DTL 16.1 % 1:30 AM BEHAVIOR SPECIALIST Platelet Count 281 157 - 371 05/11/2021 DTL x10(9)/L 1:30 AM BEHAVIOR SPECIALIST Leukocytes 11.9 (H) 3.4 - 9.6 05/11/2021 DTL x10(9)/L 1:30 AM BEHAVIOR SPECIALIST Specimen Anatomical Collection Method Collection Time Receive d Time (Source) Location / / Volume Laterality Blood (Blood, 05/11/2021 12:15 05/11/2021 Venous) AM BEHAVIOR SPECIALIST 12:29 AM BEHAVIOR SPECIALIST Ruben Rod M.D. LAB BLOOD ADD-ON Performing Organization Address City/State/ZIP Code Phon e Number [facility] - [address] [place], [place] [address] [facility] [place] [address] Laboratories-[facility] [address] DX Chest AP or PA and Lateral 2 Views (05/10/2021 10:41 PM BEHAVIOR SPECIALIST) Anatomical Region Laterality Modality Chest, Thoracic RST LOS, Thoracic ARZ LOS, Thoracic N/A Digital Radiography FLA LOS Specimen (Source) Anatomical Collection Method Collection Time Re ceived Time Location / / Volume Laterality 05/10/2021 10:42 PM BEHAVIOR SPECIALIST Impressions 05/11/2021 8:59 AM BEHAVIOR SPECIALIST Small bilateral pleural effusions. Bilateral lower lung airspace opacities. Low lung volumes. Abdominal d rain. Narrative 05/11/2021 8:59 AM BEHAVIOR SPECIALIST EXAM: ??DX CHEST AP OR PA AND [...] IMAGING PROCE DURES Potassium (05/10/2021 4:42 AM BEHAVIOR SPECIALIST) P athologist Signature Potassium, S 4.8 3.6 - 5.2 05/10/2021 DTL mmol/L 5:48 AM BEHAVIOR SPECIALIST Specimen Anatomical Collection Method Collection Time Receive d Time (Source) Location / / Volume Laterality Blood (Blood, 05/10/2021 4:42 AM 05/10/20 21 5:39 Venous) BEHAVIOR SPECIALIST AM BEHAVIOR SPECIALIST Sussy Albert M.D. LAB BLOOD ADD-ON Performing Organization Address City/State/ZIP Code Phon e Number [facility] - [address] [place], [place] [address] [facility] [place] [address] Laboratories[facility] 200 [facility] (ABNORMAL) Comprehensive Metabolic Panel (05/10/2021 1:19 AM BEHAVIOR SPECIALIST) P athologist Signature Potassium, S 5.4 (H) 3.6 - 5.2 05/10/2021 DTL mmol/L 1:58 AM BEHAVIOR SPECIALIST Sodium, S 137 135 - 145 05/10/2021 DTL mmol/L 1:58 AM BEHAVIOR SPECIALIST Chloride, S 103 98 - 107 05/10/2021 DTL mmol/L 1:58 AM BEHAVIOR SPECIALIST Bicarbonate, S 22 22 - 29 05/10/2021 DTL mmol/L 1:58 AM BEHAVIOR SPECIALIST Anion Gap 12 7 - 15 05/10/2021 DTL 1:58 AM BEHAVIOR SPECIALIST BUN (Blood Urea 14 6 - 21 05/10/2021 DTL Nitrogen), S mg/dL 1:58 AM BEHAVIOR SPECIALIST Creatinine 0.76 0.59 - 05/10/2021 DTL 1.04 mg/dL 1:58 AM BEHAVIOR SPECIALIST eGFR-Non >90 >=60 05/10/2021 DTL Black/ mL/min/BSA 1:58 AM BEHAVIOR SPECIALIST Cypriot Comment: ----ADDITIONAL INFORMATION---- Estimated GFR calculated using the 2009 CKD_EPI creatinine equation. eGFR-Black/ >90 >=60 mL/min/BSA 2020 1:58 AM BEHAVIOR SPECIALIST DTL Comment: ----ADDITIONAL INFORMATION---- Estimated GFR calculated using the 2009 CKD_EPI creatinine equation. Calcium, Total, S 8.5 (L) 8.6 - 10.0 mg/dL 05/10/2021 1:58 AM BEHAVIOR SPECIALIST DTL Glucose, S 126 70 - 140 mg/dL 05/10/2021 1:58 AM BEHAVIOR SPECIALIST D TL Protein, Total, S 5.7 (L) 6.3 - 7.9 g/dL 05/10/2021 1:58 A M BEHAVIOR SPECIALIST DTL Albumin, S 4.2 3.5 - 5.0 g/dL 05/10/2021 1:58 AM BEHAVIOR SPECIALIST D TL Aspartate Aminotransferase 598 (H) 8 - 43 U/L 05/10/2021 1 :58 AM BEHAVIOR SPECIALIST DTL (AST), S Alkaline Phosphatase, S 49 35 - 104 U/L 05/10/2021 1: 58 AM BEHAVIOR SPECIALIST DTL Alanine Aminotransferase 297 (H) 7 - 45 U/L 05/10/2021 1:5 8 AM BEHAVIOR SPECIALIST DTL (ALT), S Bilirubin, Total, S 1.0 <=1.2 mg/dL 05/10/2021 1:58 AM BEHAVIOR SPECIALIST DTL Specimen Anatomical Collection Method Collection Time Receive d Time (Source) Location / / Volume Laterality Blood (Blood, 05/10/2021 1:19 AM 05/10/20 1:27 Venous) BEHAVIOR SPECIALIST AM BEHAVIOR SPECIALIST Che Martinez M.D. LAB BLOOD ADD-ON Performing Organization Address City/State/[facility] Code Phon e Number [facility] - [address] [place] [address] [facility] [place] [address] [facility] [address] [facility] (ABNORMAL) CBC without Differential (05/10/2021 1:19 AM BEHAVIOR SPECIALIST) [facility] gist Method Time Signature Hemoglobin 9.6 (L) 11.6 - 05/10/2021 DHPM 15.0 g/dL 1:58 AM BEHAVIOR SPECIALIST Hematocrit 29.5 (L) 35.5 - 05/10/2021 DHPM 44.9 % 1:58 AM BEHAVIOR SPECIALIST Erythrocytes 3.15 (L) 3.92 - 05/10/2021 DHPM 5.13 1:58 AM BEHAVIOR SPECIALIST x10(12)/L MCV 93.7 78.2 - 05/10/2021 DHPM 97.9 fL 1:58 AM BEHAVIOR SPECIALIST RBC Distrib Width 17.5 (H) 12.2 - 05/10/2021 DHPM 16.1 % 1:58 AM BEHAVIOR SPECIALIST Platelet Count 270 157 - 371 05/10/2021 DHPM x10(9)/L 1:58 AM BEHAVIOR SPECIALIST Leukocytes 13.5 (H) 3.4 - 9.6 05/10/2021 DHPM x10(9)/L 1:58 AM BEHAVIOR SPECIALIST Specimen Anatomical Collection Method Collection Time Receive d Time (Source) Location / / Volume Laterality Blood (Blood, 05/10/2021 1:19 AM 05/10/20 21 1:27 Venous) BEHAVIOR SPECIALIST AM BEHAVIOR SPECIALIST Che Martinez M.D. LAB BLOOD ADD-ON Performing Organization Address City/State/ZIP Code Phon e Number [facility] - [address] [place] [address] [facility] [place] [address] [facility] [address] DX Abdomen 1 View (05/09/2021 5:14 PM BEHAVIOR SPECIALIST) Anatomical Region Laterality Modality Abdomen, Abdominal RST LOS, Abdominal ARZ LOS, N/A Computed Radiography Abdominal FLA LOS Specimen (Source) Anatomical Collection Method Collection Time Re ceived Time Location / / Volume Laterality 05/09/2021 5:16 PM BEHAVIOR SPECIALIST Impressions 05/09/2021 5:34 PM BEHAVIOR SPECIALIST Examination negative for postoperative purposes. Surgical changes in the pelvis. Expected postoperative pn eumoperitoneum. Grossly unremarkable imaged lung bases. Elevated right hemidi aphragm. Narrative 05/09/2021 5:34 PM BEHAVIOR SPECIALIST EXAM: ??DX ABDOMEN 1 VIEW Procedure Note Aden Blanco D.O. - 05/09/2021 EXAM: DX ABDOMEN 1 VIEW IMPRESSION: Examination negative for postoperative p urposes. Surgical changes in the pelvis. Expected postoperative pn eumoperitoneum. Grossly unremarkable imaged lung bases. Elevated right hemidi aphragm. Denisha Oviedo M.D. IMG DIAGNOSTIC IMAGING PROCE [facility] Patient Status (05/09/2021 3:39 PM BEHAVIOR SPECIALIST) P athologist Signature Temperature 36.2 37.0 deg C 05/09/2021 METH 3:40 PM BEHAVIOR SPECIALIST FIO2 0.34 0.21=AIR 05/09/2021 METH 3:40 PM BEHAVIOR SPECIALIST Specimen Anatomical Collection Method Collection Time Receive d Time (Source) Location / / Volume Laterality Blood 05/09/2021 3:39 PM 3:39 BEHAVIOR SPECIALIST PM BEHAVIOR SPECIALIST Abbey Kelly P[employer], [employer] LAB BLOOD NON ADD-ON Performing Organization Address City/State/ZIP Code Phon e Number [facility] - [address] [place] [address] [facility] [place] [address] [facility] [address] (ABNORMAL) Glucose, Whole Blood (05/09/2021 3:39 PM BEHAVIOR SPECIALIST) athologist Signature Glucose 174 (H) 70 - 140 05/09/2021 METH mg/dL 3:43 PM BEHAVIOR SPECIALIST Specimen Anatomical Collection Method Collection Time Receive d Time (Source) Location / / Volume Laterality Blood (Blood, 05/09/2021 3:39 PM 05/09/20 3:39 Arterial Line) BEHAVIOR SPECIALIST PM BEHAVIOR SPECIALIST Harrison Aguilar M.D. LAB BLOOD TROPONIN Performing Organization Address City/[facility] Phon e Number [facility] [address] [place] [address] [place] [address] [facility] [address] [facility] Potassium, Blood (05/09/2021 3:39 PM BEHAVIOR SPECIALIST) athologist Signature Potassium, B 3.8 3.6 - 5.2 05/09/2021 METH mmol/L 3:43 PM BEHAVIOR SPECIALIST Specimen Anatomical Collection Method Collection Time Receive d Time (Source) Location / / Volume Laterality Blood (Blood, 05/09/2021 3:39 PM 05/09/20 3:39 Arterial Line) BEHAVIOR SPECIALIST PM BEHAVIOR SPECIALIST Harrison Aguilar M.D. LAB BLOOD NON ADD-ON Performing Organization Address City/State/ZIP Code Phon e Number [facility] [address] [place], [place] [address] [place] [address] [facility] [address] [facility] Sodium, B (05/09/2021 3:39 PM BEHAVIOR SPECIALIST) athologist Signature Sodium, B 140 135 - 145 05/09/2021 3:43 METH mmol/L PM BEHAVIOR SPECIALIST Specimen Anatomical Collection Method Collection Time Receive d Time (Source) Location / / Volume Laterality Blood (Blood, 05/09/2021 3:39 PM 05/09/20 3:39 Arterial Line) BEHAVIOR SPECIALIST PM BEHAVIOR SPECIALIST Harrison Aguilar M.D. LAB BLOOD NON ADD-ON Performing Organization Address City/State/ZIP Code Phon e Number [facility] [address] [place], [place] [address] [place] [address] [facility] 200 [facility] (ABNORMAL) Calcium, Ionized (05/09/2021 3:39 PM BEHAVIOR SPECIALIST) athologist Signature Calcium, 4.51 (L) 4.65 - 05/09/2021 METH Ionized, B 5.30 mg/dL 3:43 PM BEHAVIOR SPECIALIST Specimen Anatomical Collection Method Collection Time Receive d Time (Source) Location / / Volume Laterality Blood (Blood, 05/09/2021 3:39 PM 05/09/20 3:39 Arterial Line) BEHAVIOR SPECIALIST PM BEHAVIOR SPECIALIST Harrison Aguilar M.D. LAB BLOOD NON ADD-ON Performing Organization Address City/State/ZIP Code Phon e Number [facility] - [address] [place] [address] [facility] [place] [address] (ABNORMAL) Blood Gas with Coox, Arterial (05/09/2021 3:39 PM BEHAVIOR SPECIALIST) athologist Signature pO2 222 (H) 83 - 108 05/09/2021 METH mm Hg 3:43 PM BEHAVIOR SPECIALIST pCO2 40 32 - 45 mm 05/09/2021 METH Hg 3:43 PM BEHAVIOR SPECIALIST pH 7.40 7.35 - 05/09/2021 METH 7.45 pH 3:43 PM BEHAVIOR SPECIALIST Base Excess -1 -2 - 3 05/09/2021 METH mmol/L 3:43 PM BEHAVIOR SPECIALIST HCO3 25 22 - 26 05/09/2021 METH mmol/L 3:43 PM BEHAVIOR SPECIALIST Hemoglobin, B 8.1 (L) 11.6 - 05/09/2021 METH 15.0 g/dL 3:43 PM BEHAVIOR SPECIALIST O2Hb 98.3 (H) 94.0 - 05/09/2021 METH 98.0 % 3:43 PM BEHAVIOR SPECIALIST COHb 1.4 <3.0 % 05/09/2021 METH 3:43 PM BEHAVIOR SPECIALIST MetHb <1.0 <1.5 % 05/09/2021 METH 3:43 PM BEHAVIOR SPECIALIST CtO2 11.7 (L) 18.0 - 05/09/2021 METH 21.0 vol % 3:43 PM BEHAVIOR SPECIALIST Specimen Anatomical Collection Method Collection Time Receive d Time (Source) Location / / Volume Laterality Blood (Blood, 05/09/2021 3:39 PM 05/09/20 3:39 Arterial Line) BEHAVIOR SPECIALIST PM BEHAVIOR SPECIALIST Harrison Aguilar M.D. LAB BLOOD NON ADD-ON Performing Organization Address City/State/ZIP Code Phon e Number [facility] - [address] [place], [place] [address] [place] [address] [facility] [address] [facility] Patient Status (05/09/2021 1:01 PM BEHAVIOR SPECIALIST) P athologist Signature Temperature 35.7 37.0 deg C 05/09/2021 METH 1:01 PM BEHAVIOR SPECIALIST FIO2 0.40 0.21=AIR 05/09/2021 METH 1:01 PM BEHAVIOR SPECIALIST Specimen Anatomical Collection Method Collection Time Receive d Time (Source) Location / / Volume Laterality Blood 05/09/2021 1:01 PM 1:01 BEHAVIOR SPECIALIST PM BEHAVIOR SPECIALIST Abbey Kelly APRN, CRNA LAB BLOOD NON ADD-ON Performing Organization Address City/[facility]/ZIP Code Phon e Number [facility] - [address] [place], [place] [address] [place] [address] [facility] [address] (ABNORMAL) Glucose, Whole Blood (05/09/2021 1:01 PM BEHAVIOR SPECIALIST) P athologist Signature Glucose 185 (H) 70 - 140 05/09/2021 METH mg/dL 1:08 PM BEHAVIOR SPECIALIST Specimen Anatomical Collection Method Collection Time Receive d Time (Source) Location / / Volume Laterality Blood (Blood, 05/09/2021 1:01 PM 05/09/20 1:01 Arterial Line) BEHAVIOR SPECIALIST PM BEHAVIOR SPECIALIST Harrison Aguilar M.D. LAB BLOOD TROPONIN Performing Organization Address City/State/ZIP Code Phon e Number [facility] - [address] [place], [place] [address] [place] [address] [facility] [address] [facility] Potassium, Blood (05/09/2021 1:01 PM BEHAVIOR SPECIALIST) P athologist Signature Potassium, B 3.6 3.6 - 5.2 05/09/2021 METH mmol/L 1:08 PM BEHAVIOR SPECIALIST Specimen Anatomical Collection Method Collection Time Receive d Time (Source) Location / / Volume Laterality Blood (Blood, 05/09/2021 1:01 PM 05/09/20 1:01 Arterial Line) BEHAVIOR SPECIALIST PM BEHAVIOR SPECIALIST Harrison Aguilar M.D. LAB BLOOD NON ADD-ON Performing Organization Address City/[facility] Phon e Number [facility] - [address] Sodium, B (05/09/2021 1:01 PM BEHAVIOR SPECIALIST) athologist Signature Sodium, B 140 135 - 145 05/09/2021 1:08 METH mmol/L PM BEHAVIOR SPECIALIST Specimen Anatomical Collection Method Collection Time Receive d Time (Source) Location / / Volume Laterality Blood (Blood, 05/09/2021 1:01 PM 05/09/20 1:01 Arterial Line) BEHAVIOR SPECIALIST PM BEHAVIOR SPECIALIST Harrison Aguilar M.D. LAB BLOOD NON ADD-ON Performing Organization Address City/[facility] Phon e Number [facility] - [id number] [place] [address] 200 [facility] (ABNORMAL) Calcium, Ionized (05/09/2021 1:01 PM BEHAVIOR SPECIALIST) athologist Signature Calcium, 4.52 (L) 4.65 - 05/09/2021 METH Ionized, B 5.30 mg/dL 1:08 PM BEHAVIOR SPECIALIST Specimen Anatomical Collection Method Collection Time Receive d Time (Source) Location / / Volume Laterality Blood (Blood, 05/09/2021 1:01 PM 05/09/20 1:01 Arterial Line) BEHAVIOR SPECIALIST PM BEHAVIOR SPECIALIST Harrison Aguilar M.D. LAB BLOOD NON ADD-ON Performing Organization Address City/[facility] Phon e Number [facility] - [address] (ABNORMAL) Blood Gas with Coox, Arterial (05/09/2021 1:01 PM BEHAVIOR SPECIALIST) athologist Signature pO2 213 (H) 83 - 108 05/09/2021 METH mm Hg 1:08 PM BEHAVIOR SPECIALIST pCO2 38 32 - 45 mm 05/09/2021 METH Hg 1:08 PM BEHAVIOR SPECIALIST pH 7.41 7.35 - 05/09/2021 METH 7.45 pH 1:08 PM BEHAVIOR SPECIALIST Base Excess -1 -2 - 3 05/09/2021 METH mmol/L 1:08 PM BEHAVIOR SPECIALIST HCO3 24 22 - 26 05/09/2021 METH mmol/L 1:08 PM BEHAVIOR SPECIALIST Hemoglobin, B 9.2 (L) 11.6 - 05/09/2021 METH 15.0 g/dL 1:08 PM BEHAVIOR SPECIALIST O2Hb 99.7 (H) 94.0 - 05/09/2021 METH 98.0 % 1:08 PM BEHAVIOR SPECIALIST COHb 1.1 <3.0 % 05/09/2021 METH 1:08 PM BEHAVIOR SPECIALIST MetHb <1.0 <1.5 % 05/09/2021 METH 1:08 PM BEHAVIOR SPECIALIST CtO2 13.4 (L) 18.0 - 05/09/2021 METH 21.0 vol % 1:08 PM BEHAVIOR SPECIALIST Specimen Anatomical Collection Method Collection Time Receive d Time (Source) Location / / Volume Laterality Blood (Blood, 05/09/2021 1:01 PM 05/09/20 21 1:01 Arterial Line) BEHAVIOR SPECIALIST PM BEHAVIOR SPECIALIST Harrison Aguilar M.D. LAB BLOOD NON ADD-ON Performing Organization Address City/State/ZIP Code Phon e Number [facility] - [address] [place], [place] [address] [facility] [place] [address] [facility] [address] [facility] Surgical Pathology, Frozen Lab (05/09/2021 10:04 AM BEHAVIOR SPECIALIST) Component Value Ref Test Analysis Performed Pathologis t Range Method Time At Signature 05/11/2021 METH 2:48 PM BEHAVIOR SPECIALIST Participated in Tmi Rodrigues M.D. 05/11/2021 METH the -Pathology 2:48 PM Interpretation Resident BEHAVIOR SPECIALIST Report Sophia Ndiaye M.D. [phone] 05/11/2021 MET H electronically 2:48 PM signed by BEHAVIOR SPECIALIST I verify that I have examined all relevant slides/materials for the specimen(s) and rendered or confirmed the diagnosis. Gross Description A. ??Received fresh labeled umbilical nodule is a 2.2 x 05/11/2021 METH 1.7 2:48 PM x 0.6 cm fragment of red-orosco soft tissue. ??There is a 0.7 x BEHAVIOR SPECIALIST 0.6 cm nodule identified upon sectioning. ??All submitted for permanent sections only. ??Grossed by PDH. B. ??Received fresh labeled falciform ligament is a 3.9 x 3.2 x 0.6 cm portion of pink-red fibrofatty tissue. Behavioral Health Associate tissue submitted for permanent sections only. Grossed by PDH. C. ??Received fresh labeled omentum is a 42 x 12 x 1 cm portion of omentum. ??There is a 0.3 x 0.2 x 0.2 cm calcified nodule. ??Lymph nodes are identified. ??Behavioral Health Associate tissu e submitted for permanent sections only. ??Grossed by RAL. Ramey ??Received fresh labeled liver wedge segment 4B/3 nodule is a 18 gram, 4.3 x 3.8 x 3.7 cm liver wedge specimen. ??A single 2.6 x 2.4 x 1.4 cm orosco-white mass is present 0.1 cm from the inked surgical margin. ??Margin is submitted perpendicularly. ??Behavioral Health Associate tissue submitted for permanent sections only. ??Grossed by E. ??Received fresh labeled right diaphragm is a 7.1 x 3.2 x 1.6 cm portion of red-orosco fibrous tissue. ??At one aspect, there is a 3.6 x 1.7 x 0.6 cm nodule. ??Additional smaller nodules are identified. ??Behavioral Health Associate tissue submitted for permanent sections only. ??Grossed by PDH. F. ??Received fresh labeled right anterior abdominal wall is a 3.8 x 2 x 0.5 cm portion of red-pink, peritonealized fibromembranous tissue. ??A 0.2 cm nodule is present. Behavioral Health Associate tissue submitted for permanent sections only. Grossed by GChapincito ??Received fresh labeled right pelvic gutter is a 2.2 x 1 x 0.2 cm aggregate of red-pink fibromembranous tissue. All submitted for permanent sections only. ??Grossed by RAL. Patterson ??Received fresh labeled left mid diaphragm is a 2.2 x 1 x 0.2 cm portion of cauterized pink-white fibromembranous tissue. ??All submitted for permanent sections only. Grossed by RAL. Hankins ??Received fresh labeled spleen is a 238 gram, 14.6 x 8.8 x 4.2 cm splenectomy specimen. ??The capsule is smooth and unremarkable. ??There is a 3 x 1.8 x 1.2 cm nodule. Hilar lymph nodes are not identified. ??Behavioral Health Associate tissue submitted for permanent sections only. ??Grossed by DJS. Tierney ??Received fresh labeled right fallopian tube and ovary is a 4.8 gram, 6.8 x 4.9 x 2.6 cm ovary with a 7.7 x 0.8 cm fallopian tube. ??The ovary has implants and adhesions on the outer surface and a cystic to solid cut surface. ??Papillary and friable excrescences are identified within the cystic component. ??The fallopian tube has multiple adhesions and serosal implants. ??Behavioral Health Associate tissue submitted for permanent sections only. ??Grossed by DJS. Lee ??Received fresh labeled uterus, left fallopian tube [...] 3 x 1.6 cm of soft tissue. Behavioral Health Associate tissue submitted for permanent sections only. Grossed by RAK. Gallegos ??Received fresh labeled portion of sigmoid colon is a 13.5 cm in length portion of colon. ??There are serosal tumor implants and adhesions. ??The mucosa is unremarkable. Behavioral Health Associate tissue submitted for permanent sections only. Grossed by EDNA. Block Summary A Umbilical nodule 05/11/2021 METH A1 Umbilical nodule 1 2:48 PM A2 Umbilical nodule 2 BEHAVIOR SPECIALIST B Falciform ligament B1 Nodular area 1 [...] CDx ?? has been requested by Dr. Jessiac Uribe and 07/01/2021 METH will be performed on block J2 at [email or web address] 3:33 PM [facility], [place], [place]. BEHAVIOR SPECIALIST Signed by James Pantoja M.D., Ph.D. 07/01/2021 3:33 PM Comment: REVISED RESULTS Interpretation FINAL DIAGNOSIS 07/01/2021 3:33 PM BEHAVIOR SPECIALIST METH J. ??Fallopian tube and ovary, right, [...] Volume Laterality Tissue 05/09/2021 10:04 (Umbilicus) AM BEHAVIOR SPECIALIST Tissue (Pelvis) 05/09/2021 10:06 AM BEHAVIOR SPECIALIST Tissue (Omentum) 05/09/2021 10:57 AM BEHAVIOR SPECIALIST Tissue (Liver) 05/09/2021 11:43 AM BEHAVIOR SPECIALIST Tissue 05/09/2021 11:59 (Diaphragm, AM BEHAVIOR SPECIALIST Right) Tissue (Abdomen) 05/09/2021 12:07 PM BEHAVIOR SPECIALIST Tissue (Pelvis, 05/09/2021 12:11 Right) PM BEHAVIOR SPECIALIST Tissue 05/09/2021 12:36 (Diaphragm, Left) PM BEHAVIOR SPECIALIST Tissue (Spleen) 05/09/2021 12:57 PM BEHAVIOR SPECIALIST Tissue (Ovary, 05/09/2021 1:22 PM Right) BEHAVIOR SPECIALIST Tissue (Uterus) 05/09/2021 3:05 PM BEHAVIOR SPECIALIST Tissue (Colon) 05/09/2021 3:10 PM BEHAVIOR SPECIALIST Narrative This result has an attachment that is no t available. Denisha Oviedo M.D. LAB SURG PATH ORDERABLES Performing Organization Address City/State/ZIP Code Phon e Number [facility] - [address] [place] [address] [facility] [place] [address] [facility] [address] Type and Screen (with reflex Antibody ID) (05/09/2021 7:29 AM BEHAVIOR SPECIALIST) [facility] gist Method Time Signature ABORh B Neg Not 05/09/2021 ETRM applicable 9:21 AM BEHAVIOR SPECIALIST Antibody Negative Negative 05/09/2021 ETRM Screen 9:32 AM BEHAVIOR SPECIALIST Type & Screen 05/12/2021 05/09/2021 ETRM Expiration 23:59 9:21 AM BEHAVIOR SPECIALIST Testing [place] DEFAULT 05/09/2021 ETRM Location 8:27 AM BEHAVIOR SPECIALIST Specimen Anatomical Collection Method Collection Time Receive d Time (Source) Location / / Volume Laterality Blood (Blood, 05/09/2021 7:29 AM 05/09/20 21 8:27 Venous) BEHAVIOR SPECIALIST AM BEHAVIOR SPECIALIST Denisha Oviedo M.D. 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 Given 05/13/2021 11:53 PM BEHAVIOR SPECIALIST 1,000 mg Given 05/13/2021 5:50 PM BEHAVIOR SPECIALIST 1,000 mg benzocaine-menthoL 15-3.6 mg per lozenge 1 Given 05/10 1:26 AM BEHAVIOR SPECIALIST 1 lozenge lozenge (CEPACOL) 1 lozenge, oral, As needed, sore throat, Starting on Sun05/09/21 at 2026 bupivacaine liposome (PF) 20 Given 05/09/2021 4:28 PM BEHAVIOR SPECIALIST 120 mL Abdominal Tissue mL in sodium chloride (PF) 0.9 % 120 mL injection As needed, Starting on Sun05/09/21 at 1628, Intra-Op calcium carbonate chewable tablet Given 05/11/2021 6:3 1 PM BEHAVIOR SPECIALIST 400 mg of calcium 400 mg of calcium (TUMS) 400 mg of calcium, oral, 3 times daily PRN, indigestion, heartburn, Starting on Sun05/09/21 at 2027, Doses listed are in mg of elemental calcium. Take with food. 500 mg calcium carbonate contains 200 mg of elemental calcium. cellulose, oxidized 2 x 4 pad Given 05/09/2021 11:42 AM BEHAVIOR SPECIALIST 1 each Other (SURGICEL) As needed, Starting on 05/09/21 at 1142, Intra-Op cyclobenzaprine tablet 5 mg (FLEXERIL) Given 05/14/2021 2:11 AM BEHAVIOR SPECIALIST 5 mg 5 mg, oral, 3 times daily PRN, muscle spasms, Starting on Misty 05/12/21 at 0744 Given 05/13/2021 8:26 PM BEHAVIOR SPECIALIST 5 mg Given 05/13/2021 2:01 PM BEHAVIOR SPECIALIST 5 mg diphenhydrAMINE capsule 25 mg (BENADRYL) Given 05/10/2021 4:31 AM BEHAVIOR SPECIALIST 25 mg 25 mg, oral, Every 6 hours PRN, itching, sleep, Starting on Sun05/10/21 at 0251 enoxaparin injection 40 mg Given 05/13/2021 2:01 PM BEHAVIOR SPECIALIST 40 mg Left Outer Thigh (LOVENOX) 40 mg, subcutaneous, Daily, First dose on Sun05/11/21 at 1400 Given 05/12/2021 2:58 PM BEHAVIOR SPECIALIST 40 mg Right Outer Thigh Given 05/11/2021 2:06 PM BEHAVIOR SPECIALIST 40 mg Right Upper Hip HYDROmorphone (PF) injection 0.4 mg Given 05/11/2021 [...] oral pain medication. Given 05/10/2021 7:52 PM BEHAVIOR SPECIALIST 0.4 mg Given 05/10/2021 3:31 PM BEHAVIOR SPECIALIST 0.4 mg HYDROmorphone tablet 2 mg (DILAUDID) Given 05/14/2021 10:29 AM BEHAVIOR SPECIALIST 2 mg 2 mg, oral, Every 4 hours PRN, moderate pain or score 4-6 of 10, Starting on Sun05/10/21 at 1518 Given 05/14/2021 6:23 AM BEHAVIOR SPECIALIST 2 mg Given 05/12/2021 2:59 PM BEHAVIOR SPECIALIST 2 mg HYDROmorphone tablet 4 mg (DILAUDID) Given 05/14/2021 2:11 AM BEHAVIOR SPECIALIST 4 mg 4 mg, oral, Every 4 hours PRN, severe pain or score 7-10 of 10, Starting on Sun05/10/21 at 1518 Given 05/13/2021 8:26 PM BEHAVIOR SPECIALIST 4 mg Given 05/13/2021 4:19 PM BEHAVIOR SPECIALIST 4 mg ibuprofen tablet 600 mg (ADVIL,MOTRIN) Given 05/14/2021 6:19 AM BEHAVIOR SPECIALIST 600 mg 600 mg, oral, Every 6 hours, First dose on Sun05/10/21 at 1900, start 6 hours after last ketorolac dose administered Given 05/13/2021 11:54 PM BEHAVIOR SPECIALIST 600 mg Given 05/13/2021 5:50 PM BEHAVIOR SPECIALIST 600 mg lisdexamfetamine capsule 70 mg (VYVANSE) Given 05/14/2021 6:19 AM BEHAVIOR SPECIALIST 70 mg 70 mg, oral, Daily, First dose on Sun05/10/21 at 0700, See tube feeding guidelines for tube feeding administration instructions. Given 05/13/2021 6:06 AM BEHAVIOR SPECIALIST 70 mg Given 05/12/2021 6:56 AM BEHAVIOR SPECIALIST 70 mg magnesium hydroxide suspension 30 mL (MILK OF Given 8:26 PM BEHAVIOR SPECIALIST 30 mL MAGNESIA) 30 mL, oral, 2 times daily, First dose on Sun05/09/21 at 2100, Starting evening of surgery. After first bowel movement discontinue Magnesium hydroxide Given 05/13/2021 9:55 AM BEHAVIOR SPECIALIST 30 mL Given 05/12/2021 7:07 PM BEHAVIOR SPECIALIST 30 mL melatonin tablet 3 mg Given 05/11/2021 10:21 PM BEHAVIOR SPECIALIST 3 mg 3 mg, oral, Bedtime PRN, sleep, Starting on Sun05/09/21 at 7 nalbuphine injection 2.5 mg (NUBAIN) Given 05/10/2021 1:08 PM BEHAVIOR SPECIALIST 2.5 mg 2.5 mg, intravenous, Every 4 hours PRN, itching, Starting on Sun05/09/21 at 1840, For 4 doses, PACU & Post-Op Given 05/09/2021 9:31 PM BEHAVIOR SPECIALIST 2.5 mg ondansetron (PF) injection 4 mg (ZOFRAN) Given 05/11/2021 7:29 PM BEHAVIOR SPECIALIST 4 mg 4 mg, intravenous, Every 6 hours PRN, nausea, vomiting, Starting on Sun05/09/21 at 1840, Reassess for nausea or vomiting after at least 10 minutes. If nausea or vomiting persists administer next ordered antiemetic medications (order for antiemetic medication administration ondansetron then droperidol then promethazine). Given 05/10/2021 3:41 PM BEHAVIOR SPECIALIST 4 mg oxybutynin tablet 5 mg (DITROPAN) 5 mg, oral, Every 8 hours PRN, bladder spasms, Startin g on Sun05/09/21 at 2025 promethazine injection 6.25 mg (PHENERGA N) Given 05/11/2021 10:11 PM BEHAVIOR SPECIALIST 6.25 mg 6.25 mg, intravenous, Every 6 hours PRN, nausea, vomiting, Starting on Sun05/09/21 at 1840, RASS must be -2 or higher to administer. Reassess for nausea/vomiting after at least 10 minutes. If nausea or vomiting persists administer next ordered antiemetic medications (order for antiemetic medication administration ondansetron then droperidol then promethazine). sennosides tablet 17.2 mg (SENOKOT) Given 05/13/2021 10:30 PM BEHAVIOR SPECIALIST 17.2 mg 17.2 mg, oral, Daily, First dose on Sun05/13/21 at 2115 simethicone chewable tablet 80 mg (MYLIC ON) Given 05/13/2021 9:55 AM BEHAVIOR SPECIALIST 80 mg 80 mg, oral, 4 times daily PRN, flatulence, Starting on Sun05/09/21 at 2025 Given 05/13/2021 3:38 AM BEHAVIOR SPECIALIST 80 mg Given 05/11/2021 3:35 PM BEHAVIOR SPECIALIST 80 mg documented in this encounter Active and Recently Administered Medications Times are shown in BEHAVIOR SPECIALIST. Scheduled Medication Order 05/12/2021 05/13/2021 05/14/2021 acetaminophen tablet 1,000 mg (TYLENOL) 0657 (Given - Provider: Jessie Rebolledo RChapincitoN.)1222 (Given - Provider: Angela Paniagua R.N.)1803 (Given - Provider: Celeste Goldberg R.N.)2304 (Given - Provider: Celeste Goldberg R.N.) 0606 (Given - Provider: Jessie Rebolledo R.N.)1126 (Given - Provider: Jaimee Morales R.N.)1750 (Given - Provider: Celeste Goldberg RChapincitoN.)2353 (Given - Provider: Jessie Rebolledo R.N.) 0619 (Given - Provider: Jessie Rebolledo R.N.) 1,000 mg, oral, Every 6 hours, First dos e on Sun05/10/21 at 0000, not to exceed 4 grams in 24 hours. enoxaparin injection 40 mg (LOVENOX) 1458 (Given - Pro vider: Angela Paniagua RAustin) 1401 (Given - Provider: Jaimee Morales RChapincitoN.) 40 mg, subcutaneous, Daily, First dose on Sun05/11/21 at 1400 ibuprofen tablet 600 mg (ADVIL,MOTRIN) 0031 (Given - P rovider: Jessie Rebolledo R.N.)0702 (Given - Provider: Jessie Rebolledo R.N.)1222 (Given - Provider: Angela Paniagua R.N.)1803 (Given - Provider: Celeste Goldberg R.N.) 0338 (Given - Provider: Jessie Rebolledo R.N.)0955 (Given - Provider: Jaimee Morales R.N.)1750 (Given - Provider: Celeste Goldberg RChapincitoN.)2354 (Given - Provider: Jessie Rebolledo R.N.) 0619 (Given - Provider: Jessie Rebolledo R.N.) 600 mg, oral, Every 6 hours, First dose on Sun05/10/21 at 1900, start 6 hours after last ketorolac dose administered lisdexamfetamine capsule 70 mg (VYVANSE) 0656 (Given - Provider: Jessie Rebolledo, R.N.) 0606 (Given - Provider: Jessie Rebolledo, R.N.) 0619 ( Given - Provider: Jessie Rebolledo R.N.) 70 mg, oral, Daily, First dose on Sun at 0700, See tube feeding guidelines for tube feeding administration instructions. magnesium hydroxide suspension 30 mL (MILK OF MAGNESIA ) 0957 (Not Given - Provider: Angela Paniagua R.N. - Reason: Order parameters not met - Comment: having loose stools and gas)1906 (Given - Provider: Celeste Goldberg R.N.) 0955 (Given - Provider: Jaimee Morales RChapincitoN.)2025 (Given - Provider: Celeste Goldberg R.N.) 0853 (Not Given - Provider: Celeste maldonado R.N. - Reason: Order parameters not met) 30 mL, oral, 2 times daily, First dose o n Sun05/09/21 at 2100, Starting evening of surgery. After first bowel movement discontinue Magnesium hydroxide MCV4: quadrivalent meningococcal conjuga te (PF) vaccine 0.5 mL (MENVEO) (COMPLETED) 1907 (Given - Provider: Celeste Goldberg R.N.) 0.5 mL, intramuscular, Once, On Sun05/12/21 at 1600, For 1 dose MenB: meningococcal B vaccine 0.5 mL (BEXSERO) (COMPLE MARLEY) 1911 (Given - Provider: Celeste Goldberg R.N. - Comment: L shoulder) 0.5 mL, intramuscular, Once, On Sun05/12/21 at 1600, For 1 dose sennosides tablet [...] (FLEXERIL) 0820 (Given - P rovider: Angela Paniagua RChapincitoN.)3012 (Given - Provider: Angela Paniagua R.N.)2159 (Given - Provider: Celeste Goldberg R.N.) 0606 (Given - Provider: Jessie Rebolledo R.N.)1401 (Given - Provider: Adonay PettitNChapincito)2026 (Given - Provider: Celeste Goldberg R.N.) 0211 [...] 414 (See Alternative - Provider: Jessie Rebolledo R.N.)0820 (Given - Provider: Angela Paniagua R.N.)1459 (Given - Provider: Angela Paniagua R.N.)1907 (See Alternative - Provider: Celeste Goldberg R.N.) 0338 (See Alternative - Provider: Loreto Rebolledo R.N.)0731 (See Alternative - Provider: Jaimee Morales R.N.)1128 (See Alternative - Provider: Jaimee Morales R.N.)1619 (See Alternative - P rovider: Celeste Goldberg R.N.) 0211 (See Alternative - Provider: Loreto Rebolledo R.N.)0623 (Given - Provider: Adonay LuciaN.)1029 (Given - Provider: Cecille Miles R.N., C.M.S.R.N.) 2 mg, oral, Every 4 hours PRN, moderate pain or score 4-6 of 10, Starting on Sun05/10/21 at 1518 2304 (See Alternative - Provider: Celeste Goldberg R.N. ) 2025 (See Alternative - Provider: Celeste Goldberg R.N.) HYDROmorphone tablet 4 mg (DILAUDID)(Linked Group 1) 0 414 (Given - Provider: Jessie Rebolledo R.N.)0820 (See Alternative - Provider: Angela Paniagua R.N.)1459 (See Alternative - Provider: Angela Paniagua R.N.)1907 (Given - Provider: Celeste Goldberg R.N.) 0338 (Given - Provider: Jessie Rebolledo R.N.)0731 (Given - Provider: Adonay PettitNChapincito)1128 (Given - Provider: Jaimee Morales R.N.)1619 (Given [...] (MYLICON) 0338 (Given - Provider: Jessie Rebolledo RAustin)0955 (Given - Provider: Jaimee Morales R.N.) 80 mg, oral, 4 times daily PRN, [...]
--- OUTSIDE RECORDS SUMMARY | 2022-03-06 01:52 | XMS_ITS | Encounter Summary ---
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 [address] [place], [place] [phone] Referral ID Status Reason Start Date Expiration Date Visits Requ ested Visits Authorized [id number] Closed 04/18/2021 05/18/2021 1 1 Encounter Details Date Type Department Care Team Description 05/02/2021 Hospital Encounter Department of Walter Barnhart Malign ant Neoplasm Radiology brittney De La Cruz M.D., Ph.D. Of Ovary Laterality [place], [place] [address] [facility] [address] [place] [phone] Social History Tobacco Use Types Packs/Day [...] or relatives? How often do you attend latter-day or 1 to 4 times per year 02/09 scientologist services? Do you belong to any clubs or Yes 02/26/2021 organizations such as latter-day groups, unions, fraternal or athletic groups, or [...] Sig Dispensed Refills Start Date End Date dgvicul-hhaw-gqmul-oreg- Take 1 tablet by 0 capryl 100 [...] Laboratory Medicine Debbie Ivey M.D. [address] [place] [phone] 04/13/2022 Office Visit Oncology Walter Barnhart M.D., Ph.D. [address] [place] [phone] documented as of this encounter Procedures Procedure Name Priority Date/Time Associated Comments Diagnosis CT CHEST WITH IV RAD - Routine 05/02/2021 10:52 Malignant Result s for this CONTRAST (most inpatients AM PROJECTOR OPERATOR Neoplasm Of Ovary proced ure are in and all Laterality the results outpatients) Unknown (HCC) section. documented in this encounter Results CT Chest with IV Contrast (05/02/2021 10:52 AM PROJECTOR OPERATOR) Anatomical Region Laterality Modality Chest, Thoracic RST LOS, Thoracic ARZ LOS, Thoracic N/A Computed Tomography ARZ LOS, Thoracic FLA LOS Specimen (Source) Anatomical Collection Method Collection Time Re ceived Time Location / / Volume Laterality 05/02/2021 11:10 AM PROJECTOR OPERATOR Impressions 05/02/2021 11:15 AM PROJECTOR OPERATOR No acute disease. Stable tiny pulmonary nodules. Narrative 05/02/2021 11:15 AM PROJECTOR OPERATOR EXAM: CT CHEST WITH IV CONTRAST 3D/MIPS: 3D Post-Processing performed on a dependent workstation. COMPARISON: 02/23/2021 and prior FINDINGS: There is no acute pulmonary di sease. There is no significant pulmonary nodule. There are tiny stable nodules in the right lower lobe on image 57 and in the left lower lobe image 38. The trache a and proximal bronchi are patent. There is no pleural or pericardial effusion. T here is no thoracic adenopathy. The thoracic vasculature is within normal li mits. The upper abdominal organs are unremarkable in appearance where visuali zed. There is no worrisome bone lesion. Procedure Note Walter Welch M.D. - 05/02/2021Fo rmatting of this note might be different from the original. EXAM: CT CHEST WITH IV CONTRAST 3D/MIPS: 3D Post-Processing performed on a dependent workstation. COMPARISON: 02/23/2021 and prior FINDINGS: There is no acute pulmonary di sease. There is no significant pulmonary nodule. There are tiny stable nodules in the right lower lobe on image 57 and in the left lower lobe image 38. The trache a and proximal bronchi are patent. There is no pleural or pericardial effusion. T here is no thoracic adenopathy. The thoracic vasculature is within normal li mits. The upper abdominal organs are unremarkable in appearance where visuali zed. There is no worrisome bone lesion. IMPRESSION: No acute disease. Stable tiny pulmonary nodules. Walter Barnhart M.D., Ph.D. IMG CT PROCEDURES documented in this encounter Visit Diagnoses Diagnosis Malignant Neoplasm Of Ovary Laterality U nknown (HCC) documented in this encounter Administered Medications Inactive Administered Medications - up to 3 most recent administrations Medication Order MAR Action Action Date Dose Rate Site iohexoL 300 mg iodine/mL solution Given 05/02/2021 10:54 AM PROJECTOR OPERATOR 80 mL 1-200 mL (OMNIPAQUE) 1-200 mL, intravenous, Once in imaging, contrast, Starting on Sun05/02/21 at 1053, For 1 dose, Imaging Protocol Orders, Dose per Radiant Medication Guidelines NaCl 0.9 % bolus 100 mL New Bag 05/02/2021 10:44 AM PROJECTOR OPERATOR 100 mL 100 mL/hr 100 mL, intravenous, at 100 mL/hr, Administer over 1 Hours, Once, On Sun05/02/21 at 1100, For 1 dose sodium chloride 0.9 % injection 10 mL Given 05/02/2021 10:44 AM PROJECTOR OPERATOR 10 mL 10 mL, intravenous, Once in imaging, line care, Starting on Sun05/02/21 at 1053, For 1 dose documented in this encounter
--- OUTSIDE RECORDS SUMMARY | 2022-03-06 01:52 | XMS_ITS | Encounter Summary ---
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) [facility] [address] [place] [address] Referral ID Status Reason Start Date Expiration Date Visits Requ ested Visits Authorized [id number] Closed 05/03/2021 05/03/2022 1 1 Encounter Details Date Type Department Care Team Description 05/03/2021 Comprehensive Visit Division of Wilma Castro Neoplasm Of Ovary Laterality Unknown (HCC); Hepatobiliary and Kelly Estrada Lesion Liver Pancreas Surgery in [address] [place], [place] [address] [place] [phone] [place], [place] [phone] (Work) [phone] Social History Tobacco Use Types Packs/Day Years [...] AM CDT documented as of this encounter Consult Notes Wilma Castro M.D. - 05/03/2021 11:30 AM CST CC: Liver mass - ovarian cancer Referral source: Denisha Oviedo MD HPI: 45yoF with ovarian cancer s/p 3 cycles of chemotherapy. Anticipating laparotomy and debulking/resection with Dr. Oviedo on 05/09. Has liver mass at junction of segments 4 and 2/3 along the falciform inferior and anterior to the branching portal pedicle. Dr. Mir has kindly asked for my assistance inthe operating room with liver resection. Today I met with the patient and her and reviewed my operative plan. We discussed standard risks benefits and alternatives to liver resection and also discussed the possibility of left lateral sectionectomy with portion of segment 4 versus wedge resection with ablation of margins if needed. The patient her had the opportunity ask questions which were answered to their apparent satisfaction. Relevant history: No prior abdominal surgeries Other components of patient history are reviewed in the patient's chart Physical Exam: General: awake, alert, oriented x3, no acute distress HEENT: sclera anicteric; normocephalic, atraumatic Pulm: Respiratory effort unlabored Abd: scaphoid, non-distended Psychiatric: Appears competent to give informed consent Neurologic: No gross deficits Skin: No rashes or subcutaneous nodules Radiology: CT scan from Feb 2021 prior to initiation of therapy demonstrates an approximate 3.8 cm in maximum dimension mass at the base of the falciform ligament. CT scan Apr 2021 shows mass has decreased in size to approximately 1.2 cm. While this is in an area where we sometimes see focal fatty sparing, the changed in size and appearance while on chemotherapy and the location at the base of the falciform both yield suspicion of tumor Discussion: Reviewed the risks, benefits, and alternatives of operative intervention including bleeding, infection, complications related to anesthesia, and other unforeseen events. Assessment: Metastatic ovarian cancer with apparent liver metastasis Plan: -To OR for liver resection at time of planned gynecologic oncology surgery with Dr. Oviedo 05/09. -Case request for liver resection, with intraoperative ultrasound placed and consent signed today inclinic. Our portion will add around 45min to the procedure 45 minutes spent in this evaluation and management encounter, more than 50% of which was counseling,or coordination of care including same-day records review and documentation. ENT ACCESS DIRECTOR documented in this encounter Plan of Treatment Upcoming Encounters Date Type Specialty Care Team Description 04/11/2022 Clinical Communication Admitting/Central Scheduling 04/13/2022 Appointment Laboratory Medicine Debbie Ivey M.D. [address] [place] [phone] 04/13/2022 Office Visit Oncology Walter Barnhart M.D., Ph.D. [address] [place] [phone] documented as of this encounter Visit Diagnoses Diagnosis Malignant Neoplasm Of Ovary Laterality U nknown (HCC) Lesion Liver documented in this encounter
--- OUTSIDE RECORDS SUMMARY | 2022-03-06 01:52 | XMS_ITS | Encounter Summary ---
:1975 Author Organization [facility] Address [address] [place] [id number] Care Team Providers Name Role Phone Unavailable Primary Care Provider Unavailable Reason for Visit Episode Based Medications (Routine) - Authorized Specialty Diagnoses / Procedures Referred By Contact Refer red To Contact Diagnoses Malignant Neoplasm Of Ovary Laterality Unknown (HCC) Walter Barnhart M.D., R [facility] Procedures MT CARBOPLATIN INJECTION MT PACLITAXEL INJECTION MT INJECTION, PEGFILGRASTIM 6MG MT DEXAMETHASONE SODIUM PHOS Ph.D. [address] [facility] [address] [place] [phone] Referral ID Status Reason Start Date Expiration Date Visits V isits Requested Authorized [id number] Authorized 02/17/2021 02/17/2022 12 12 Encounter Details Date Type Department Care Team Description 04/07/2021 Office Visit Department of Marychuy Kapoor Malignan t Neoplasm Of Ovary Laterality Unknown (HCC) (Primary Dx); Oncology in [facility], C.N.P., Neutropenia Dr hannah Lorenzo (HCC) [place], [place] M.S.N. [address] [facility] [address] [place] [phone] Social History Tobacco Use Types Packs/Day Years [...] Sign Reading Time Taken Comments Blood Pressure 112/74 04/07/2021 8:47 AM CDT Pulse 73 04/07/2021 8:47 AM CDT Temperature 36 ??C (96.8 ??F) 04/07/2021 8:47 AM CDT Respiratory Rate 16 04/07/2021 8:47 AM CDT Oxygen Saturation 99% 04/07/2021 8:47 AM CDT Inhaled Oxygen Concentration - - Weight 57.9 kg (127 lb 10.3 oz) 04/07/2021 8:47 AM CDT Height 170.1 cm (5' 6.97) 04/07/2021 8:47 AM CDT Body Mass Index 20.01 04/07/2021 8:47 AM CDT documented in this encounter Progress Notes Marychuy Kapoor APRN, C.N.P., M.S.N. - 04/07/2021 9:00 AM CDT CHIEF COMPLAINT/PUPROSE OF VISIT: Ms. Yang is a 45 y.o. woman with advanced stage high-grade serous ovarian cancer Collaborating provider: Dr. Juan Cardona [phone] HISTORY OF PRESENT ILLNESS: Ms. Yang is a very pleasant 45 y.o. woman with the following oncologic history: Oncology History Malignant Neoplasm Of Ovary Laterality Unknown (HCC) Genetic Testing and Tumor Genotyping Genetic testing in 2020; [facility] with MyRisk panel from [facility]. Variant of Uncertain Significance (VUS) found in APC gene specifically named [id number] aka [id number]). 02/03/2021 Other Ultrasound with bilateral complex solid [...] Positive for PAX8, p53, p16. 02/25/2021 - Chemotherapy CARBOplatin AUC 6 / PACLitaxel ( PHOTOGRAPH EDITOR ) Start Date: 02/25/2021 INTERVAL HISTORY: presents today with her friend for evaluation in anticipation of her 3rd cycle of treatment with combination carboplatin and paclitaxel chemotherapy for her newly diagnosed ovarian cancer. She reports she has been tolerating treatment overall well, with no significant concerns or complaints. She notes that she utilizes her antiemetic medications for approximately 4 days after her treatment. She denies significant issues with nausea or vomiting. She feels she is maintaining a relativelynormal activity level, and denies urinary concerns, bowel changes, or vaginal bleeding/discharge. She notes that she has not had significant issues with neuropathy at this time. ROS: Pertinent items are noted in HPI; all other review of systems were negative. VITAL SIGNS: Vitals Blood Pressure: 112/74, Temperature: 36 ??C, Temp Source: Tympanic, Pulse Rate: 73, Resp Rate: 16, SpO2: 99 %, Height: 170.1 cm, Weight: 57.9 kg BP Readings from Last 1 Encounters: 04/07/21 112/74 Pulse Readings from Last 1 Encounters: 04/07/21 73 Temp Readings from Last 1 Encounters: 10/28/21 36 ??C (Tympanic) Rate your distress: 3 PHYSICAL EXAM: General: Alert and oriented, and [...] Of Ovary Laterality Unknown (HCC) presents today with her friend for evaluation in anticipation of cycle 3 treatment with combination carboplatin and paclitaxel chemotherapy for her newly diagnosed ovarian cancer. Her labs were reviewed, and are notable for an ANC of 0.84 today. We did discuss concerns for proceeding with treatment due to low neutrophil count. I recommended that we hold her treatment for 1 week to allowher body time to recover from previous therapy. We will plan to continue with stable dosing of treatment as long as her counts recover, and I will add Neulasta on body to her treatment plan for next week. notes significant concerns in regard to delaying treatment, and we discussed that it is due to safety in regard to risk for infection. I reassured her that this would not alter her planned for surgical intervention to delay 1 week. She does wish to recheck her CBC prior to leaving today to see if it has recovered enough for her to receive treatment. This was ordered, and I will communicate with her in regard to results of this testing. If labs continue to be low, we will plan to have her defer 1 week as noted above. She is otherwise tolerating treatment well, has no additional dose-limiting toxicity per history or examination. She verbalized understanding of the above information,as no further questions or concerns at this time. She agrees to contact us in the interim if she hasany new or concerning symptoms prior to her next planned return visit. Addendum: On repeat lab work, ANC continues to be 0.99. We discussed plan to defer treatment for 1 week and have her return for chemotherapy with the addition of Neulasta on body with cycle 3 treatment. We will continue with plan for her to meet with Dr. Mir on 05/03/2021. We will reschedule appointments for imaging to be just prior to this appointment. She verbalized understanding and has no further questions or concerns at this time. PATIENT EDUCATION Ready to learn, no apparent learning barriers were identified; learning preferences include listening. Explained diagnosis and treatment plan; patient expressed understanding of the content. documented in this encounter Plan of Treatment Upcoming Encounters Date Type Specialty Care Team Description 04/11/2022 Clinical Communication Admitting/Central Scheduling 04/13/2022 Appointment Laboratory Medicine Debbie Ivey M.D. [address] [place] [phone] 04/13/2022 Office Visit Oncology Walter Barnhart M.D., Ph.D. [address] [place] [phone] documented as of this encounter Results Creatinine with Estimated GFR (04/13/2021 9:15 AM CDT) athologist Signature Creatinine 0.69 0.59 - 04/13/2021 NPRG 1.04 mg/dL 9:39 AM CDT eGFR-Black/Afric >90 >=60 04/13/2021 NPRG an Swedish mL/min/BSA 9:39 AM CDT Comment: ----ADDITIONAL INFORMATION---- [...] Organization Address City/State/ZIP Code Phon e Number [address] [address] [facility] [place] [id number] CBC, Chemotherapy, No Alerts (04/13/2021 9:15 AM [...] Organization Address City/State/ZIP Code Phon e Number [address] [address] [facility] [place] [phone] [address] Bilirubin, Total (04/13/2021 9:15 AM CDT) athologist Signature Bilirubin, 0.6 <=1.2 mg/dL 04/13/2021 NPRG Total, P 9:39 AM CDT Specimen Anatomical Collection Method Collection Time Receive d Time (Source) Location / / Volume Laterality Blood (Blood, 04/13/2021 9:15 AM 04/13/20 9:17 Venous) CDT AM CDT Walter Barnhart M.D., Ph.D. LAB BLOOD ADD-ON Performing Organization Address City/State/ZIP Code Phon e Number [address] [address] [facility] [address] [place] AST (Aspartate Aminotransferase) (04/13/2021 9:15 AM CDT) Patholo gist Method Time Signature Aspartate 40 8 - 43 04/13/2021 NPRG Aminotransferase U/L 9:39 AM CDT (AST), P Specimen Anatomical Collection Method Collection Time Receive d Time (Source) Location / / Volume Laterality Blood (Blood, 04/13/2021 9:15 AM 04/13/20 9:17 Venous) CDT AM CDT Walter Barnhart M.D., Ph.D. LAB BLOOD ADD-ON Performing Organization Address City/[facility] Phon e Number [place] [address] [address] [place], [place] [address] [facility] [place] [address] (ABNORMAL) Cancer Antigen 125 (CA 125) (04/13/2021 9:15 AM CDT) P athologist Signature Cancer Ag 125 166 (H) <46 U/mL 04/13/2021 AUST (CA 125), S 10:20 PM CDT Comment: Biotin has been identified by the daisy wall as a potential interfering substance. ??Higher concentr ations of biotin may be found in multivitamins, hair/nail supple ments, and workout supplements. ??If the result does not ma tch clinical observations, repeat testing after patient refrains [...] Ph.D. LAB BLOOD ADD-ON Performing Organization Address City/State/[facility] Phon e Number [facility]- [address] [place] [address] [facility] [place] [address] [facility] [address] AST (Aspartate Aminotransferase) (04/07/2021 9:54 AM CDT) Patholo gist Method Time Signature Aspartate 34 8 - 43 04/07/2021 METH Aminotransferase U/L 10:27 AM CDT (AST), P Specimen Anatomical Collection Method Collection Time Receive d Time (Source) Location / / Volume Laterality Blood (Blood, 04/07/2021 9:54 AM 04/07/20 Venous) CDT 10:04 AM CDT Marychuy Kapoor APRN, C.N.P., M.S.N. LAB BLOOD ADD-ON Performing Organization Address City/State/[facility] Code Phon e Number [facility] - [address] [place], [place] [address] [place] [address] [facility] 200 [facility] (ABNORMAL) CBC, Chemotherapy, No Alerts (04/07/2021 9:54 AM CDT) Analysis Performed At Patho logist Time Signature Hemoglobin 12.2 11.6 - 04/07/2021 METH 15.0 g/dL 10:06 AM CDT Platelet Count 141 (L) 157 - 371 04/07/2021 METH x10(9)/L 10:06 AM CDT Leukocytes 2.5 (L) 3.4 - 9.6 04/07/2021 METH x10(9)/L 10:06 AM CDT Neutrophils 0.99 (L) 1.56 - 04/07/2021 METH 6.45 10:06 AM CDT x10(9)/L Specimen Anatomical Collection Method Collection Time Receive d Time (Source) Location / / Volume Laterality Blood (Blood, 04/07/2021 9:54 AM 04/07/20 Venous) CDT 10:04 AM CDT Carly Correa APRN.N.P., M.S.N. LAB BLOOD ADD-ON Performing Organization Address City/State/ZIP Code Phon e Number [facility] - [address] [place], [place] [address] [address] [place] [address] [facility] [address] documented in this encounter Visit Diagnoses Diagnosis Malignant Neoplasm Of Ovary Laterality U nknown (HCC) - Primary Neutropenia Drug Induced (HCC) documented in this encounter
--- OUTSIDE RECORDS SUMMARY | 2022-03-06 01:52 | XMS_ITS | Encounter Summary ---
:1975 Author Organization [facility] Address [address] [place] [address] Care Team Providers Name Role Phone Unavailable Primary Care Provider Unavailable Reason for Visit Episode Based Medications (Routine) - Authorized Specialty Diagnoses / Procedures Referred By Contact Refer red To Contact Diagnoses Malignant Neoplasm Of Ovary Laterality Unknown (HCC) Walter Barnhart M.D., [facility] Onc [facility] Procedures DE CARBOPLATIN INJECTION DE PACLITAXEL INJECTION DE INJECTION, PEGFILGRASTIM 6MG DE DEXAMETHASONE SODIUM PHOS Ph.D. [address] [place] [address] [place] [phone] Referral ID Status Reason Start Date Expiration Date Visits V isits Requested Authorized [id number] Authorized 02/17/2021 02/17/2022 12 12 Encounter Details Date Type Department Care Team Description 05/02/2021 Hospital Encounter Department of Walter Barhnart Malign ant Neoplasm Of Ovary Laterality Unknown (HCC); Laboratory Medicine Kelly De La Cruz, Ph. D. Neutropenia Drug Induced (HCC) in [address] [place] [phone] [place], [place] [phone] (Work) [phone] Social History Tobacco Use Types Packs/Day Years [...] 02/26/2021 organizations such as faith groups, unions, fraMoney Forward or athletic groups, or school groups? How [...] Sig Dispensed Refills Start Date End Date [id number]- Take 1 tablet by 0 capryl 100 [...] Appointment Laboratory Medicine Debbie Ivey M.D. 200 [place] [phone] 04/13/2022 Office Visit Oncology Walter Barnhart M.D., Ph.D. 200 [place] [phone] documented as of this encounter Procedures Procedure Name Priority Date/Time Associated Comments Diagnosis CBC CHEMO - NO ALERTS Routine 05/02/2021 10:22 Malignant Neopl asm Results for this AM HEARING SCREENER Of Ovary procedure are i n Laterality Unknown the resul ts (HCC) section. Neutropenia Drug Induced (HCC) CANCER AG 125 (CA 125), Routine 05/02/2021 10:22 Malignant Juan plasm Results for this S AM HEARING SCREENER Of Ovary procedure are i n Laterality Unknown the resul ts (HCC) section. Neutropenia Drug Induced (HCC) ASPARTATE Routine 05/02/2021 10:22 Malignant Neoplasm Resul ts for this AMINOTRANSFERASE (AST), AM HEARING SCREENER Of Ovary proc edure are in S/P Laterality Unknown the resul ts (HCC) section. Neutropenia Drug Induced (HCC) CREATININE WITH EGFR, Routine 05/02/2021 10:22 Malignant Neopl asm Results for this S/P AM HEARING SCREENER Of Ovary procedure are i n Laterality Unknown the resul ts (HCC) section. Neutropenia Drug Induced (HCC) BILIRUBIN, TOT, S/P Routine 05/02/2021 10:22 Malignant Neoplas m Results for this AM HEARING SCREENER Of Ovary procedure are i n Laterality Unknown the resul ts (HCC) section. Neutropenia Drug Induced (HCC) documented in this encounter Results Creatinine with Estimated GFR (05/02/2021 10:22 AM HEARING SCREENER) P athologist Signature Creatinine 0.64 0.59 - 05/02/2021 NPRG 1.04 mg/dL 10:47 AM HEARING SCREENER eGFR-Black/Afric >90 >=60 05/02/2021 NPRG an Iranian mL/min/BSA 10:47 AM HEARING SCREENER Comment: ----ADDITIONAL INFORMATION---- Estimated GFR calculated using the 2009 CKD_EPI creatinine equation. eGFR Non-Black/ >90 >=60 mL/min/BSA 05/02/2021 10:47 AM HEARING SCREENER NPRG Comment: ----ADDITIONAL INFORMATION---- Estimated GFR calculated using the 2009 CKD_EPI creatinine equation. Specimen Anatomical Collection Method Collection Time Receive d Time (Source) Location / / Volume Laterality Blood (Blood, 05/02/2021 10:22 05/02/2021 Venous) AM HEARING SCREENER 10:27 AM HEARING SCREENER Walter Barnhart M.D., Ph.D. LAB BLOOD ADD-ON Performing Organization Address City/[facility]/ZIP Code Phon e Number [address] [facility] [place] [address] (ABNORMAL) CBC, Chemotherapy, No Alerts (05/02/2021 10:22 AM HEARING SCREENER) Analysis Performed At Patho logist Time Signature Hemoglobin 11.2 (L) 11.6 - 05/02/2021 NPRG 15.0 g/dL 10:32 AM HEARING SCREENER Platelet Count 233 157 - 371 05/02/2021 NPRG x10(9)/L 10:32 AM HEARING SCREENER Leukocytes 4.1 3.4 - 9.6 05/02/2021 NPRG x10(9)/L 10:32 AM HEARING SCREENER Neutrophils 2.59 1.56 - 05/02/2021 NPRG 6.45 10:32 AM HEARING SCREENER x10(9)/L Specimen Anatomical Collection Method Collection Time Receive d Time (Source) Location / / Volume Laterality Blood (Blood, 05/02/2021 10:22 05/02/2021 Venous) AM HEARING SCREENER 10:27 AM HEARING SCREENER Walter Barnhart M.D., Ph.D. LAB BLOOD ADD-ON Performing Organization Address City/[facility]/ZIP Code Phon e Number [address] [address] [facility] [place] [address] Bilirubin, Total (05/02/2021 10:22 AM HEARING SCREENER) P athologist Signature Bilirubin, 0.4 <=1.2 mg/dL 05/02/2021 NPRG Total, P 10:47 AM HEARING SCREENER Specimen Anatomical Collection Method Collection Time Receive d Time (Source) Location / / Volume Laterality Blood (Blood, 05/02/2021 10:22 05/02/2021 Venous) AM HEARING SCREENER 10:27 AM HEARING SCREENER Walter Barnhart M.D., Ph.D. LAB BLOOD ADD-ON Performing Organization Address City/State/[facility] Code Phon e Number [place] [address] LAB NPRG [place] [phone] AST (Aspartate Aminotransferase) (05/02/2021 10:22 AM HEARING SCREENER) Patholo gist Method Time Signature Aspartate 23 8 - 43 05/02/2021 NPRG Aminotransferase U/L 10:47 AM HEARING SCREENER (AST), P Specimen Anatomical Collection Method Collection Time Receive d Time (Source) Location / / Volume Laterality Blood (Blood, 05/02/2021 10:22 05/02/2021 Venous) AM HEARING SCREENER 10:27 AM HEARING SCREENER Walter Barnhart M.D., Ph.D. LAB BLOOD ADD-ON Performing Organization Address City/[facility] Phon e Number [address] LAB NPRG [place] [phone] (ABNORMAL) Cancer Antigen 125 (CA 125) (05/02/2021 10:22 AM HEARING SCREENER) athologist Signature Cancer Ag 125 65 (H) <46 U/mL 05/02/2021 AUST (CA 125), S 10:36 PM HEARING SCREENER Comment: Biotin has been identified by the daisy wall as a potential interfering substance. ??Higher concentr ations of biotin may be found in multivitamins, hair/nail supple ments, and workout supplements. ??If the result does not ma [facility] clinical observations, repeat testing after patient refrains [...] Location / / Volume Laterality Blood (Blood, 05/02/2021 10:22 05/02/2021 Venous) AM HEARING SCREENER 10:04 PM HEARING SCREENER Walter Barnhart M.D., Ph.D. LAB BLOOD ADD-ON Performing Organization Address City/State/ZIP Code Phon e Number [facility]- [address] LAB AUST [facility] [place], [place] [phone] [place] [address] documented in this encounter Visit Diagnoses Diagnosis 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
--- OUTSIDE RECORDS SUMMARY | 2022-03-06 01:53 | XMS_ITS | Encounter Summary ---
:1975 Author Organization [facility] Address [address] [place] [address] Care Team Providers Name Role Phone Unavailable Primary Care Provider Unavailable Encounter Details Date Type Department Care Team Description 02/21/2021 Admin Visit Department of Oncology in [place], [place] [address] [place] [phone] Social History Tobacco Use Types Packs/Day Years Used Date Smoking Tobacco: Never Assessed Alcohol Habits Answer Date Recorded How often [...] or slept in a jail (including now)? Sex Assigned at Date Recorded Female 02/10/2021 8:20 AM CDT documented as of this encounter Plan of Treatment Upcoming Encounters Date Type Specialty Care Team Description 04/11/2022 Clinical Communication Admitting/Central Scheduling 04/13/2022 Appointment Laboratory Medicine Debbie Ivey M.D. [address] [place] [phone] 04/13/2022 Office Visit Oncology Walter aBrnhart M.D., Ph.D. [address] [place] [phone] documented as of this encounter Visit Diagnoses Not on filedocumented in this encounter
--- OUTSIDE RECORDS SUMMARY | 2022-03-06 01:53 | XMS_ITS | Encounter Summary ---
:1975 Author Organization [facility] Address [address] [place] [id number] Care Team Providers Name Role Phone Unavailable Primary Care Provider Unavailable Reason for Referral Outpatient (Routine) - Closed Specialty Diagnoses / Procedures Referred By Contact Refer red To Contact Clinical Genomics Diagnoses Malignant Neoplasm Of Ovary Laterality Unknown (HCC) Walter Barnhart R [facility] Kelly, Ph.D. [address] [place] [address] Referral ID Status Reason Start Date Expiration Date Visits Requ ested Visits Authorized [id number] Closed 02/23/2021 02/23/2022 1 1 Reason for Visit Outpatient (Routine) - Closed Specialty Diagnoses / Procedures Referred By Contact Refer red To Contact Medical Oncology / Diagnoses [facility] [address] [place] [address] Referral ID Status Reason Start Date Expiration Date Visits Requ ested Visits Authorized [id number] Closed 02/11/2021 02/11/2022 1 1 Encounter Details Date Type Department Care Team Description 02/23/2021 Comprehensive Visit Department of Walter Barnhart Neoplasm Of Ovary Laterality Unknown (HCC) (Primary Dx); Oncology brittney De La Cruz M.D., Ph.D. Mass Adnexal [place], [facility] [address] [place], [place] [address] [place] [phone] [place], [place] [phone] (Work) [phone] Social History Tobacco Use Types Packs/Day Years [...] or relatives? How often do you attend uatsdin or 1 to 4 times per year 02/09 nondenominational services? Do you belong to any clubs or Yes 02/26/2021 organizations such as uatsdin groups, unions, fraternal or athletic groups, or [...] place to sleep or slept in a alf (including now)? Sex Assigned at Date Recorded Female 02/10/2021 8:20 AM CDT documented as of this encounter Last Filed Vital Signs Vital Sign Reading Time Taken Comments Blood Pressure 129/80 02/23/2021 1:35 PM CDT Pulse 87 02/23/2021 1:35 PM CDT Temperature 36.7 ??C (98.1 ??F) 02/23/2021 1:35 PM CDT Respiratory Rate 16 02/23/2021 1:35 PM CDT Oxygen Saturation 100% 02/23/2021 1:35 PM CDT Inhaled Oxygen Concentration - - Weight 62.8 kg (138 lb 7.2 oz) 02/23/2021 1:35 PM CDT Height 170 cm (5' 6.93) 02/23/2021 1:35 PM CDT Body Mass Index 21.73 02/23/2021 1:35 PM CDT documented in this encounter Consult Notes Nick Ellis M.D. - 02/23/2021 1:40 PM CDT SUBJECTIVE PRIMARY KAKE ONCOLOGIST Walter Barnhart M.D., Ph.D. REASON FOR CONSULT Angelica Yang is a 45 y.o. 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 02/08: CT abdomen/pelvis and MRI pelvis suspicious for high-grade serous carcinoma of ovary, ascites with suspected tumor implants on liver, spleen suspicious for peritoneal carcinomatosis. 02/16/2021 Biopsy/Pathology Pelvic mass biopsy consistent with high-grade serous carcinoma. + for PAX8, p53, p16. CA-125 of 1617 02/24/2021 - Chemotherapy CARBOplatin AUC 6 / PACLitaxel ( REGIONAL CLINICAL DIRECTOR ) Start Date: 02/24/2021 (Planned) Was initially diagnosed in late January after 6 months of back pain and 1 month of painful bowel movements with change in bowel quality. She met with Dr. Oviedo from Gynecologic surgery who recommended neoadjuvant chemotherapy prior to surgical debulking. She presents today to discuss the following. She has ongoing pelvic/abdominal pain that is very unpleasant but maintain at a manageable level with ibuprofen and Tylenol. Her bowel movements are very painful and requires approximately 4-5 trips tothe bathroom in the morning to complete which she describes as a single bowel movement. Additionally, since the beginning of December she has had swelling of her right index finger with warmth and erythema. She said to course the prednisone, 1 of which helped in the other of which did not. General: Associated symptoms: abdominal pain, fatigue and headaches The following portions of the patient's history were reviewed and updated as appropriate: current medications, family history, medical history, social history, surgical history and problem list. REVIEW OF SYSTEMS Constitutional: Positive for fatigue. Gastrointestinal: Positive for abdominal (belly) pain or cramping and constipation. Genitourinary: Positive for decreased libido and frequent urination. Neurological: Positive for headaches. Psychiatric/Behavioral: Positive for decreased libido, not being able to stop or control worrying over past two weeks and feeling nervous, anxious, or on edge in past two weeks. The following systems were negative: Skin, Eyes, ENT, CV, Respiratory, Hematologic, Musculoskeletal OBJECTIVE BP 129/80 (BP Location: Left arm, Patient Position: Sitting, Cuff Size: Regular) Pulse 87 Temp 36.7 ??C (Tympanic) Resp 16 Ht 170 cm Wt 62.8 kg SpO2 100% BMI 21.73 kg/m?? PHYSICAL EXAM BP 129/80 (BP Location: Left arm, Patient Position: Sitting, Cuff Size: Regular) Pulse 87 Temp 36.7 ??C (Tympanic) Resp 16 Ht 170 cm Wt 62.8 kg SpO2 100% BMI 21.73 kg/m?? Gen: well appearing, well-nourished female sitting in exam chair in no acute distress LABORATORY DATA Lab data reviewed. RADIOLOGICAL DATA Radiology data reviewed. ASSESSMENT / PLAN #1 Mass Adnexal #2 Malignant Neoplasm Of Ovary Laterality Unknown (HCC) Angelica Yang is a 45 y.o. 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 She will start carboplatin/paclitaxel later this week. Plan is for 3 rounds of the neoadjuvant chemotherapy followed by evaluation with Dr. Oviedo and radha for surgical debulking +/- HIPEC followed by completion of chemotherapy rounds 4-6. Additionally will refer her to Medical Genetics for consideration of testing. PATIENT EDUCATION Ready to learn, no apparent learning barriers were identified; learning preferences include listening. Explained diagnosis and treatment plan; patient expressed understanding of the content. Aden Ellis MD PGY-3, Internal Medicine Walter Barnhart M.D., Ph.D. - 02/23/2021 1:40 PM CDT SUBJECTIVE CHIEF COMPLAINT/REASON FOR VISIT Advanced ovarian cancer HISTORY OF PRESENT ILLNESS Oncology History Malignant Neoplasm Of Ovary Laterality Unknown (HCC) 02/03/2021 Other Ultrasound with bilateral complex solid [...] serous carcinoma. Positive for PAX8, p53, p16. 02/24/2021 - Chemotherapy CARBOplatin AUC 6 / PACLitaxel ( REGIONAL CLINICAL DIRECTOR ) Start Date: 02/24/2021 (Planned) INTERVAL HISTORY: Ms. Yang presents for evaluation of ovarian cancer. This is a supervisory note for Dr. Nick Ellis; please refer to Dr. Ellis' note of today's date. Briefly, Ms. Yang continues to have lower abdominal pain. This is exacerbating by eating, and she has frequent loose stools in the morning.She also has warmth and swelling of the right 2nd finger. ECOG performance status is 0-1. The remainder of the history and exam are per Dr. Ellis' note. ASSESSMENT / PLAN #1 Advanced stage high-grade serous ovarian cancer #2 Cancer-associated pain Ms. Yang was recently diagnosed with ovarian cancer after presenting with lower abdominal pain and frequent loose stools. She has been evaluated by Dr. Oviedo, who recommended neoadjuvant chemotherapy. We reviewed the laboratory studies, and these show no concerns. Baseline CA 125 is 2428. We reviewed the images from the CT of the chest, abdomen, and pelvis. The CT of the chest shows a tiny lungnodule but no obvious evidence of disease. The CT of the abdomen and pelvis shows pelvic masses, peritoneal carcinomatosis, metastases involving the liver and spleen, and moderate ascites. We discussed with Ms. Yang there would be very reasonable to initiate neoadjuvant chemotherapy with plan for re-evaluation and possible surgery after 3 cycles of chemotherapy. We discussed the logistics, risks, and toxicities associated with paclitaxel and carboplatin. We will plan to initiate joselito motherapy later this week. Ms. Yang will plan to use a cold cap to reduce the chance of alopecia. I discussed with Ms. Yang that we would recommend evaluation by Medical Genetics to assess for inheritable mutations that increase risk for ovarian cancer. We briefly discussed the plan for surveillance following completion of chemotherapy, and we discussed the possibility of using maintenance therapy. We will discuss this in more detail after we have germline and somatic mutation testing available. We also discussed ongoing an upcoming vaccine clinical trials at [facility]. Ms. Yang is interested in participating in a trial if there is an appropriate trial available. PATIENT EDUCATION Learning needs assessment was performed. No learning barriers were identified. Explained diagnosis and treatment plan. Patient expressed understanding and was able to teach back. ADMINISTRATIVE BILLING: I personally spent over half of a total 85 minutes with the patient in counseling and discussion and/or coordination of care as described above. documented in this encounter Plan of Treatment Upcoming Encounters Date Type Specialty Care Team Description 04/11/2022 Clinical Communication Admitting/Central Scheduling 04/13/2022 Appointment Laboratory Medicine Debbie Ivey M.D. [address] [place] [phone] 04/13/2022 Office Visit Oncology Walter Barnhart M.D., Ph.D. [address] [place] [phone] Scheduled Referrals Name Type Priority Associated Diagnoses Order [facility] Clinical Genomics Outpatient Referral Routine Malignant Neopla sm Expected: - General genetics Of Ovary Laterality consult (clinic) Unknown (HCC) (Approxima te), Expires: 02/24/2024 documented as of this encounter Visit Diagnoses Diagnosis Malignant Neoplasm Of Ovary Laterality U nknown (HCC) - Primary Mass Adnexal documented in this encounter
--- OUTSIDE RECORDS SUMMARY | 2022-03-06 01:53 | XMS_ITS | Encounter Summary ---
:1975 Author Organization [facility] Address [address] [place] [address] Care Team Providers Name Role Phone Unavailable Primary Care Provider Unavailable Reason for Visit Episode Based Medications (Routine) - Authorized Specialty Diagnoses / Procedures Referred By Contact Refer red To Contact Diagnoses Malignant Neoplasm Of Ovary Laterality Unknown (HCC) Walter Barnhart M.D., R [facility] Procedures ID CARBOPLATIN INJECTION ID PACLITAXEL INJECTION ID INJECTION, PEGFILGRASTIM 6MG ID DEXAMETHASONE SODIUM PHOS Ph.D. [address] [facility] [address] [place] [phone] Referral ID Status Reason Start Date Expiration Date Visits V isits Requested Authorized [id number] Authorized 02/17/2021 02/17/2022 12 12 Encounter Details Date Type Department Care Team Description 03/15/2021 Office Visit Department of Oncology Candie Monahan [facility] Ovary Laterality [place] [address] [place] [address] Unknown (HCC) [address] [place] [phone] Social History Tobacco Use Types Packs/Day Years [...] Sign Reading Time Taken Comments Blood Pressure 127/80 03/15/2021 8:06 AM CDT Pulse 77 03/15/2021 8:06 AM CDT Temperature 36.1 ??C (97 ??F) 03/15/2021 8:06 AM CDT Respiratory Rate - - Oxygen Saturation 100% 03/15/2021 8:06 AM CDT Inhaled Oxygen Concentration - - Weight 60.3 kg (132 lb 15 oz) 03/15/2021 8:06 AM CDT Height - - Body Mass Index 20.87 02/23/2021 1:35 PM CDT documented in this encounter Progress Notes Candie Monahan, DENNY, C.N.P. - 03/15/2021 8:20 AM CDT CHIEF COMPLAINT/PURPOSE OF VISIT: Ms. Yang is a 45 y.o. year old woman with advanced stage high-grade serous ovarian cancer Collaborating provider: Dr. Josee Andrews HISTORY OF PRESENT ILLNESS: Ms. Yang is a very pleasant 45 y.o. woman with the following oncologic history: Oncology History Malignant Neoplasm Of Ovary Laterality Unknown (HCC) Genetic Testing and Tumor Genotyping 02/03/2021 Other Ultrasound with bilateral complex solid [...] Chemotherapy CARBOplatin AUC 6 / PACLitaxel ( SIGNAL OPERATOR TECHNICAL ) Start Date: 02/25/2021 INTERVAL HISTORY: Visit done in conjunction with Dr. Che Martinez. Ms. Yang presents in anticipation to cycle 2 of carboplatin/paclitaxel today for advanced ovarian cancer. Patient reports she is feeling well after first cycle. She tolerated treatment well. Minimal nausea and denies peripheral neuropathy. She experience abdominal sharp pain 2-3 days after chemotherapy for which she took Ibuprofen. No significant lower extremities pain. Reports significant improvement in constipation and abdominal bloating. Reports adequate appetite. ROS: Pertinent items are noted in HPI; all other review of systems were negative. VITAL SIGNS: Vitals Blood Pressure: 127/80, Temperature: 36.1 ??C, Temp Source: Tympanic, Pulse Rate: 77, SpO2: 100 %, Weight: 60.3 kg BP Readings from Last 1 Encounters: 03/15/21 127/80 Pulse Readings from Last 1 Encounters: 03/15/21 77 Temp Readings from Last 1 Encounters: 03/15/21 36.1 ??C (Tympanic) No data recorded PHYSICAL EXAM: General: Alert and oriented. In no acute [...] Of Ovary Laterality Unknown (HCC) Ms. Yang presents in anticipation to neoadjuvant cycle 2 of carboplatin/paclitaxel today for advanced ovarian cancer. We reviewed laboratory workup. We will proceed with cycle 2 of carboplatin/paclitaxel with no need for dose reduction at this time. Physical exam normal. All questions answered tothe best of my ability. She is going to start cold caps cooling with Paxman today. ECOG score of 0. PATIENT EDUCATION Ready to learn, no apparent learning barriers were identified; learning preferences include listening. Explained diagnosis and treatment plan; patient expressed understanding of the content. Che Martinez MD documented in this encounter Plan of Treatment Upcoming Encounters Date Type Specialty Care Team Description 04/11/2022 Clinical Communication Admitting/Central Scheduling 04/13/2022 Appointment Laboratory Medicine Debbie Ivey M.D. [address] [place] [phone] 04/13/2022 Office Visit Oncology Walter Barnhart M.D., Ph.D. [address] [place] [phone] documented as of this encounter Visit Diagnoses Diagnosis Malignant Neoplasm Of Ovary Laterality U nknown (HCC) documented in this encounter
--- OUTSIDE RECORDS SUMMARY | 2022-03-06 01:53 | XMS_ITS | Encounter Summary ---
:1975 Author Organization [facility] Address [address] [place] [address] Care Team Providers Name Role Phone Unavailable Primary Care Provider Unavailable Reason for Referral MRI/CAT/PET Scan (Routine) - Closed Specialty Diagnoses / Procedures Referred By Contact Refer red To Contact Radiology Diagnoses Malignant Neoplasm Of Ovary Laterality Unknown (HCC) Walter Barnhart M.D., [facility] [address] Chest with IV Contrast RI CT THORAX W CNTRST RI 3D WO IND WORKSTATION Ph.D. [address] [place] [phone] Referral ID Status Reason Start Date Expiration Date Visits Requ ested Visits Authorized [id number] Closed 04/18/2021 05/18/2021 1 1 Encounter Details Date Type Department Care Team Description 02/23/2021 Orders Only Department of Oncology Walter Barnhart, Malignant Neoplasm Of in Kelly Dominguez, Ph.D. Ovary Laterality [place] [address] [facility] Unknown (HCC) (Primary [address] [place] [address] Dx) [place] [phone] Social History Tobacco Use Types Packs/Day Years [...] or relatives? How often do you attend hindu or 1 to 4 times per year 02/09 adventist services? Do you belong to any clubs or Yes 02/26/2021 organizations such as hindu groups, unions, fraternal or athletic groups, or [...] or slept in a chcf (including now)? Sex Assigned at Date Recorded Female 02/10/2021 8:20 AM CDT documented as of this encounter Plan of Treatment Upcoming Encounters Date Type Specialty Care Team Description 04/11/2022 Clinical Communication Admitting/Central Scheduling 04/13/2022 Appointment Laboratory Medicine Debbie Ivey M.D. [address] [place] [phone] 04/13/2022 Office Visit Oncology Walter Barnhart M.D., Ph.D. [address] [place] [phone] documented as of this encounter Results CT Chest with IV Contrast (05/02/2021 10:52 AM FLYING INSTRUCTOR) Anatomical Region Laterality Modality Chest, Thoracic RST LOS, Thoracic ARZ LOS, Thoracic N/A Computed Tomography ARZ LOS, Thoracic FLA LOS Specimen (Source) Anatomical Collection Method Collection Time Re ceived Time Location / / Volume Laterality 05/02/2021 11:10 AM FLYING INSTRUCTOR Impressions 05/02/2021 11:15 AM FLYING INSTRUCTOR No acute disease. Stable tiny pulmonary nodules. Narrative 05/02/2021 11:15 AM FLYING INSTRUCTOR EXAM: CT CHEST WITH IV CONTRAST 3D/MIPS: [...]
--- OUTSIDE RECORDS SUMMARY | 2022-03-06 01:53 | XMS_ITS | Encounter Summary ---
:1975 Author Organization [facility] Address [address] [place] [address] Care Team Providers Name Role Phone Unavailable Primary Care Provider Unavailable Encounter Details Date Type Department Care Team Description 02/23/2021 Education Department of Patient Osbaldo Barnhart M.D., Ph.D. [address] [place] [address] Malignant Neoplasm Of Education in Candie Oshea M.Ed. Ovary Laterality [place], [place] Unknown (HCC) [address] [place] [address] Social History Tobacco Use Types Packs/Day Years [...] or slept in a fdc (including now)? Sex Assigned at Date Recorded Female 02/10/2021 8:20 AM CDT documented as of this encounter Plan of Treatment Upcoming Encounters Date Type Specialty Care Team Description 04/11/2022 Clinical Communication Admitting/Central Scheduling 04/13/2022 Appointment Laboratory Medicine Debbie Ivey M.D. [address] [place] [phone] 04/13/2022 Office Visit Oncology Walter Barnhart M.D., Ph.D. [address] [place] [phone] documented as of this encounter Visit Diagnoses Diagnosis Malignant Neoplasm Of Ovary Laterality U nknown (HCC) documented in this encounter
--- OUTSIDE RECORDS SUMMARY | 2022-03-06 01:53 | XMS_ITS | Encounter Summary ---
:1975 Author Organization [facility] Address [address] [place] [address] Care Team Providers Name Role Phone Unavailable Primary Care Provider Unavailable Reason for Visit Reason Comments [id number] Encounter Details Date Type Department Care Team Description 02/18/2021 Clinical Communication Department of Walter Barnhart D1C1 Oncology in M.D., Ph.D. [place], [place] [address] [facility] [address] [place] [phone] Social History Tobacco Use Types Packs/Day Years [...] or relatives? How often do you attend orthodox or 1 to 4 times per year 02/09 druze services? Do you belong to any clubs or Yes 02/26/2021 organizations such as orthodox groups, unions, fraternal or athletic groups, [...] or slept in a custodial (including now)? Sex Assigned at Date Recorded Female 02/10/2021 8:20 AM CDT documented as of this encounter Plan of Treatment Upcoming Encounters Date Type Specialty Care Team Description 04/11/2022 Clinical Communication Admitting/Central Scheduling 04/13/2022 Appointment Laboratory Medicine Debbie Ivey M.D. [address] [place] [phone] 04/13/2022 Office Visit Oncology Walter Barnhart M.D., Ph.D. [address] [place] [phone] documented as of this encounter Visit Diagnoses Not on filedocumented in this encounter
--- OUTSIDE RECORDS SUMMARY | 2022-03-06 01:53 | XMS_ITS | Encounter Summary ---
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 [address] [facility] [address] [place] [phone] Referral ID Status Reason Start Date Expiration Date Visits V isits Requested Authorized [id number] Authorized 02/17/2021 02/17/2022 12 12 Encounter Details Date Type Department Care Team Description 04/06/2021 Hospital Encounter Department of Walter Barnhart Malign ant Neoplasm Laboratory Medicine SKelly, Ph. D. Of Ovary Laterality in [address] Unknown (HCC) [place], [place] [address] [place] [address] [place], [place] [phone] (Work) [phone] Social History Tobacco Use Types Packs/Day Years [...] or relatives? How often do you attend mosque or 1 to 4 times per year 02/09 mandaen services? Do you belong to any clubs or Yes 02/26/2021 organizations such as mosque groups, unions, fraternal or athletic groups, or [...] Appointment Laboratory Medicine Debbie Ivey M.D. [address] [place] [phone] 04/13/2022 Office Visit Oncology Walter Barnhart M.D., Ph.D. [address] [place] [phone] documented as of this encounter Procedures Procedure Name Priority Date/Time Associated Comments Diagnosis CBC CHEMO - NO ALERTS Routine 04/06/2021 9:14 Malignant Neopla sm Results for this AM CDT Of Ovary procedure are i n Laterality Unknown the resul ts (HCC) section. CANCER AG 125 (CA 125), Routine 04/06/2021 9:14 Malignant Neop lasm Results for this S AM CDT Of Ovary procedure are i n Laterality Unknown the resul ts (HCC) section. ASPARTATE Routine 04/06/2021 9:14 Malignant Neoplasm Result s for this AMINOTRANSFERASE (AST), AM CDT Of Ovary proc edure are in S/P Laterality Unknown the resul ts (HCC) section. CREATININE WITH EGFR, Routine 04/06/2021 9:14 Malignant Neopla sm Results for this S/P AM CDT Of Ovary procedure are i n Laterality Unknown the resul ts (HCC) section. BILIRUBIN, TOT, S/P Routine 04/06/2021 9:14 Malignant Neoplasm Results for this AM CDT Of Ovary procedure are i n Laterality Unknown the resul ts (HCC) section. documented in this encounter Results Creatinine with Estimated GFR (04/06/2021 9:14 AM CDT) P athologist Signature Creatinine 0.65 0.59 - 04/06/2021 NPRG 1.04 mg/dL 9:46 AM CDT eGFR-Black/Afric >90 >=60 04/06/2021 NPRG an Barbadian mL/min/BSA 9:46 AM CDT Comment: ----ADDITIONAL INFORMATION---- Estimated GFR calculated using the 2009 CKD_EPI creatinine equation. eGFR Non-Black/ >90 >=60 mL/min/BSA 04/06/2021 9:46 AM CDT NPRG Comment: ----ADDITIONAL INFORMATION---- Estimated GFR calculated using the 2009 CKD_EPI creatinine equation. Specimen Anatomical Collection Method Collection Time Receive d Time (Source) Location / / Volume Laterality Blood (Blood, 04/06/2021 9:14 AM 04/06/20 9:17 Venous) CDT AM CDT Walter Barnhart M.D., Ph.D. LAB BLOOD ADD-ON Performing Organization Address City/State/ZIP Code Phon e Number [facility]- [address] [place], [place] [address] [address] [place] [address] (ABNORMAL) CBC, Chemotherapy, No Alerts (04/06/2021 9:14 AM CDT) Analysis Performed At Patho logist Time Signature Hemoglobin 12.1 11.6 - 04/06/2021 NPRG 15.0 g/dL 9:40 AM CDT Platelet Count 144 (L) 157 - 371 04/06/2021 NPRG x10(9)/L 9:40 AM CDT Leukocytes 2.1 (L) 3.4 - 9.6 04/06/2021 NPRG x10(9)/L 9:40 AM CDT Neutrophils 0.84 (L) 1.56 - 04/06/2021 NPRG 6.45 9:40 AM CDT x10(9)/L Specimen Anatomical Collection Method Collection Time Receive d Time (Source) Location / / Volume Laterality Blood (Blood, 04/06/2021 9:14 AM 04/06/20 9:17 Venous) CDT AM CDT aWlter Barnhart M.D., Ph.D. LAB BLOOD ADD-ON Performing Organization Address City/[facility] Phon e Number [address] [facility] [place] [address] Bilirubin, Total (04/06/2021 9:14 AM CDT) P athologist Signature Bilirubin, 0.7 <=1.2 mg/dL 04/06/2021 NPRG Total, P 9:46 AM CDT Specimen Anatomical Collection Method Collection Time Receive d Time (Source) Location / / Volume Laterality Blood (Blood, 04/06/2021 9:14 AM 04/06/20 9:17 Venous) CDT AM CDT Walter Barnhart M.D., Ph.D. LAB BLOOD ADD-ON Performing Organization Address City/State/[facility] Phon e Number [address] [facility] [address] AST (Aspartate Aminotransferase) (04/06/2021 9:14 AM CDT) Component Value Ref Test Analysis Performed At Patholo gist Range Method Time Signature Aspartate SEE COMMENT 8 - 43 04/06/2021 NPRG Aminotransferase U/L 11:17 AM (AST), P CDT Comment: Specimen markedly hemolyzed. Specimen markedly hemolyzed. Specimen Anatomical Collection Method Collection Time Receive d Time (Source) Location / / Volume Laterality Blood (Blood, 04/06/2021 9:14 AM 04/06/20 9:17 Venous) CDT AM CDT Walter Barnhart M.D., Ph.D. LAB BLOOD ADD-ON Performing Organization Address City/State/ZIP Code Phon e Number [facility]- [address] [place], [place] [address] [facility] [place] [address] [facility] [address] (ABNORMAL) Cancer Antigen 125 (CA 125) (04/06/2021 9:14 AM CDT) athologist Signature Cancer Ag 125 197 (H) <46 U/mL 04/06/2021 AUST (CA 125), S 10:51 PM CDT Comment: Biotin has been identified by the daisy sarabiar as a potential interfering substance. ??Higher concentr ations of biotin may be found in multivitamins, hair/nail supple ments, and workout supplements. ??If the result does not ma [facility] clinical observations, repeat testing after patient refrains fr om the use of supplements for at least 12 hours. ----ADDITIONAL INFORMATION---- The testing method is an electrochemilum inescence assay manufactured by [employer] and performed on the Michela system. Values obtained with different assay met hods or kits may be different and cannot be used inte rchangeably. Test results cannot be interpreted as ab solute evidence for the presence or absence of malignant disease. Specimen Anatomical Collection Method Collection Time Receive d Time (Source) Location / / Volume Laterality Blood (Blood, 04/06/2021 9:14 AM 04/06/20 9:27 Venous) CDT PM CDT Walter Barnhart M.D., Ph.D. LAB BLOOD ADD-ON Performing Organization Address City/State/ZIP Code Phon e Number [facility]- [address] [place] [address] [facility] [place], [place] [address] [place] [address] documented in this encounter Visit Diagnoses Diagnosis Malignant Neoplasm Of Ovary Laterality U nknown (HCC) documented in this encounter
--- OUTSIDE RECORDS SUMMARY | 2022-03-06 01:53 | XMS_ITS | Encounter Summary ---
:1975 Author Organization [facility] Address [address] [place] [address] Care Team Providers Name Role Phone Unavailable Primary Care Provider Unavailable Encounter Details Date Type Department Care Team Description 02/17/2021 Documentation RST CHILD LIFE Bronwyn Parson, CCLS [address] [place], [place] [phone] Social History Tobacco Use Types Packs/Day Years [...] or relatives? How often do you attend catholic or 1 to 4 times per year 02/09 methodist services? Do you belong to any clubs or Yes 02/26/2021 organizations such as catholic groups, unions, fraternal or athletic groups, [...] slept in a senior care (including now)? Sex Assigned at Date Recorded Female 02/10/2021 8:20 AM CDT documented as of this encounter Progress Notes Bronwyn Parson, CCLS - 02/17/2021 1:18 PM CDT Child Life Child(beronica) of Adult Patient Angelica Yang is a 45 y.o. female seen today. Reason for Consult: New diagnosis, Patient requesting support and resources to help explain diagnosis to patient's 11-year old daughter, 14-year old son, and 17-year old son. Patient Response to Interventions: Child Life was able to speak with Constance on the phone about ways tosupport children through her new diagnosis. Constance informed this CCLS of being diagnosed with ovarian cancer with upcoming treatments including chemo and surgery. Constance informed this CCLS of recently telling her three children about her diagnosis and upcoming treatment plan. CCLS praised her ability to be open and honest and share the name of her diagnosis and next steps with her children. CCLS emphasized importance of establishing and developing trust through honest conversations. Constance also discussed informing children's school, coaches and school counselors about diagnosis which this CCLS also validated as excellent support for children. Child Life spent time processing additional information to tell children and validating not having all of the answers right now. CCLS shared many resources about supporting children during a parent's cancer diagnosis and also shared child life contact informationshould additional needs arise. No further questions identified upon completion of interaction. Child Life can be reached at [phone] should additional needs arise. Visit Type: Phone consultation, resources discussed Child Life Time Spent (Min): 30 documented in this encounter Plan of Treatment Upcoming Encounters Date Type Specialty Care Team Description 04/11/2022 Clinical Communication Admitting/Central Scheduling 04/13/2022 Appointment Laboratory Medicine Debbie Ivey M.D. [address] [place] [address] 04/13/2022 Office Visit Oncology Walter Barnhart M.D., Ph.D. [address] [place] [address] documented as of this encounter Visit Diagnoses Not on filedocumented in this encounter
--- OUTSIDE RECORDS SUMMARY | 2022-03-06 01:53 | XMS_ITS | Encounter Summary ---
:1975 Author Organization [facility] Address [address] [place] [address] Care Team Providers Name Role Phone Unavailable Primary Care Provider Unavailable Encounter Details Date Type Department Care Team Description 02/23/2021 Clinical Communication Department of Walter Barnhart Oncology in M.D., Ph.D. [place], [place] [address] [facility] [address] [place] [phone] Social History Tobacco Use Types Packs/Day Years [...] or relatives? How often do you attend islam or 1 to 4 times per year 02/09 anabaptist services? Do you belong to any clubs or Yes 02/26/2021 organizations such as islam groups, unions, fraternal or athletic groups, or [...] or slept in a longterm (including now)? Sex Assigned at Date Recorded Female 02/10/2021 8:20 AM CDT documented as of this encounter Plan of Treatment Upcoming Encounters Date Type Specialty Care Team Description 04/11/2022 Clinical Communication Admitting/Central Scheduling 04/13/2022 Appointment Laboratory Medicine Debbie Ivey M.D. [address] [place] [phone] 04/13/2022 Office Visit Oncology Walter Barnhart M.D., Ph.D. [address] [place] [phone] documented as of this encounter Visit Diagnoses Not on filedocumented in this encounter
--- OUTSIDE RECORDS SUMMARY | 2022-03-06 01:53 | XMS_ITS | Encounter Summary ---
:1975 Author Organization [facility] Address [address] [place] [address] Care Team Providers Name Role Phone Unavailable Primary Care Provider Unavailable Encounter Details Date Type Department Care Team Description 03/17/2021 Orders Only Department of Oncology LookerLaura, Malignant Neoplasm Of in [place], [place]. Ovary Laterality [place] [address] [facility] Unknown (HCC) (Primary [address] [place], [place] Dx) [place] [phone] Social History Tobacco Use Types Packs/Day Years [...] or relatives? How often do you attend pentecostal or 1 to 4 times per year 02/09 mandaen services? Do you belong to any clubs or Yes 02/26/2021 organizations such as pentecostal groups, unions, fraternal or athletic groups, or [...] Laboratory Medicine Debbie Ivey M.D. [address] [place] [address] 04/13/2022 Office Visit Oncology Walter Barnhart M.D., Ph.D. [address] [place] [phone] documented as of this encounter Visit Diagnoses Diagnosis Malignant Neoplasm Of Ovary Laterality U nknown (HCC) - Primary documented in this encounter
--- OUTSIDE RECORDS SUMMARY | 2022-03-06 01:53 | XMS_ITS | Encounter Summary ---
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 [address] [place] [address] [place] [phone] Referral ID Status Reason Start Date Expiration Date Visits V isits Requested Authorized [id number] Authorized 02/17/2021 02/17/2022 12 12 Encounter Details Date Type Department Care Team Description 02/23/2021 Education Department of Oncology Vasu Barnhart M.D., Ph.D. [address] [place] [phone] Malignant Neoplasm Of in [place] Doming[place] Lisette D, M.S.N., R.N. [address] [place] [phone] Ovary Laterality [place] Unknown (HCC) [address] [place] [phone] Social History Tobacco Use Types Packs/Day Years [...] or relatives? How often do you attend religion or 1 to 4 times per year 02/09 baptist services? Do you belong to any clubs or Yes 02/26/2021 organizations such as religion groups, unions, fraternal or athletic groups, or [...] place to sleep or slept in a half-way (including now)? Sex Assigned at Date Recorded Female 02/10/2021 8:20 AM CDT documented as of this encounter Plan of Treatment Upcoming Encounters Date Type Specialty Care Team Description 04/11/2022 Clinical Communication Admitting/Central Scheduling 04/13/2022 Appointment Laboratory Medicine Debbie Ivey M.D. [address] [place] [phone] 04/13/2022 Office Visit Oncology Walter Barnhart M.D., Ph.D. [address] [place] [phone] documented as of this encounter Visit Diagnoses Diagnosis Malignant Neoplasm Of Ovary Laterality U nknown (HCC) documented in this encounter
--- OUTSIDE RECORDS SUMMARY | 2022-03-06 01:53 | XMS_ITS | Encounter Summary ---
:1975 Author Organization [facility] Address [address] [place] [address] Care Team Providers Name Role Phone Unavailable Primary Care Provider Unavailable Reason for Visit Reason Comments Intake Assessment Encounter Details Date Type Department Care Team Description 03/11/2021 Clinical Communication Department of Candie Monahan Assessment Oncology in [facility] [address] [facility] [address] [place] [phone] Social History Tobacco Use Types Packs/Day Years [...] or relatives? How often do you attend zoroastrianism or 1 to 4 times per year 02/09 hinduism services? Do you belong to any clubs or Yes 02/26/2021 organizations such as zoroastrianism groups, unions, fraternal or athletic groups, or [...] Notes Telephone Encounter - Jalyn Paul - 03/11/2021 1:10 PM CDT Intake screening completed. documented in this encounter Plan of Treatment Upcoming Encounters Date Type Specialty Care Team Description 04/11/2022 Clinical Communication Admitting/Central Scheduling 04/13/2022 Appointment Laboratory Medicine Debbie Ivey M.D. [address] [place] [phone] 04/13/2022 Office Visit Oncology Walter Barnhart M.D., Ph.D. [address] [place] [phone] documented as of this encounter Visit Diagnoses Not on filedocumented in this encounter
--- OUTSIDE RECORDS SUMMARY | 2022-03-06 01:53 | XMS_ITS | Encounter Summary ---
:1975 Author Organization [facility] Address [address] [place] [address] Care Team Providers Name Role Phone Unavailable Primary Care Provider Unavailable Reason for Visit Reason Comments Intake Assessment Encounter Details Date Type Department Care Team Description 04/05/2021 Clinical Communication Department of Walter Barnhart In take Assessment Oncology in SKelly, Ph.D. [place], [facility] [address] [place], [place] [address] [place] [phone] [place], [place] [phone] (Work) [phone] Social History Tobacco Use Types Packs/Day Years [...] Notes Telephone Encounter - Arlet Harper - 04/05/2021 12:48 PM CDT Intake done documented in this encounter Plan of Treatment Upcoming Encounters Date Type Specialty Care Team Description 04/11/2022 Clinical Communication Admitting/Central Scheduling 04/13/2022 Appointment Laboratory Medicine Debbie Ivey M.D. [address] [place] [phone] 04/13/2022 Office Visit Oncology Walter Barnhart M.D., Ph.D. [address] [place] [address] documented as of this encounter Visit Diagnoses Not on filedocumented in this encounter
--- OUTSIDE RECORDS SUMMARY | 2022-03-06 01:53 | XMS_ITS | Encounter Summary ---
:1975 Author Organization [facility] Address [address] [place] [address] Care Team Providers Name Role Phone Unavailable Primary Care Provider Unavailable Reason for Referral Specialty Diagnoses / Procedures Referred By Contact Refer red To Contact RST [facility] [address] [place] [phone] Referral ID Status Reason Start Date Expiration Date Visits Requ ested Visits Authorized Reason for Visit Reason Comments Nurse teach Encounter Details Date Type Department Care Team Description 02/18/2021 Clinical Communication Department of Mamie Rees Nurse teach Oncology in D, M.S.N., R.N. [address] [place] [phone] Social History Tobacco Use Types Packs/Day Years [...] or relatives? How often do you attend episcopal or 1 to 4 times per year 02/09 taoism services? Do you belong to any clubs or Yes 02/26/2021 organizations such as episcopal groups, unions, fraternal or athletic groups, or [...] or slept in a usp (including now)? Sex Assigned at Date Recorded Female 02/10/2021 8:20 AM CDT documented as of this encounter Miscellaneous Notes Telephone Encounter - Mamie Rees M.S.N., R.N. - 02/18/2021 11:20 AM CDT Intro class ordered documented in this encounter Plan of Treatment Upcoming Encounters Date Type Specialty Care Team Description 04/11/2022 Clinical Communication Admitting/Central Scheduling 04/13/2022 Appointment Laboratory Medicine Debbie Ivey M.D. [address] [place] [phone] 04/13/2022 Office Visit Oncology Walter Barnhart M.D., Ph.D. [address] [place] [address] Scheduled Referrals Name Type Priority Associated Order Schedule Diagnoses Patient Education - Outpatient Referral Routine Malignant Neop lasm Expected: Introduction to Of Ovary Laterality 02/23 cancer care (clinic) Unknown (HCC) (Appro ximate), Expires: 02/19/2024 documented as of this encounter Visit Diagnoses Diagnosis Malignant Neoplasm Of Ovary Laterality U nknown (HCC) - Primary documented in this encounter
--- OUTSIDE RECORDS SUMMARY | 2022-03-06 01:53 | XMS_ITS | Encounter Summary ---
:1975 Author Organization [facility] Address [address] [place] [address] Care Team Providers Name Role Phone Unavailable Primary Care Provider Unavailable Encounter Details Date Type Department Care Team Description 02/17/2021 Clinical Communication Department of Amber Nguyen , Obstetrics and [facility] Gynecology in [address] [place] [address] [place] [phone] [place], [place] [phone] (Work) [phone] Social History Tobacco Use Types Packs/Day Years [...] or slept in a fpc (including now)? Sex Assigned at Date Recorded Female 02/10/2021 8:20 AM CDT documented as of this encounter Miscellaneous Notes Telephone Encounter - Amber Nguyen RAustin - 02/17/2021 8:47 AM CDT I contacted Constance at the request of Dr. Oviedo to share with her that the biopsy is consistent with adenocarcinoma, they are waiting for stains to confirm 100%. Dr. Oviedo recommends getting into see Dr. Barnhart, the medical oncologist for an appointment. I shared with her that we were able to schedule her on 02/23/21 at 1:[address] Barnhart will be holding a spot for her to start chemotherapy on 02/24/21. The patient was appreciative of the call but was hoping for an earlier appointment. I offered her the phone number to call for cancellations but at this time she will await the appointment for next Sunday02/23/21. She verbalized understanding of the information discussed. documented in this encounter Plan of Treatment Upcoming Encounters Date Type Specialty Care Team Description 04/11/2022 Clinical Communication Admitting/Central Scheduling 04/13/2022 Appointment Laboratory Medicine Debbie Ivey M.D. [address] [place] [phone] 04/13/2022 Office Visit Oncology Walter Barnhart M.D., Ph.D. [address] [place] [phone] documented as of this encounter Visit Diagnoses Not on filedocumented in this encounter
--- OUTSIDE RECORDS SUMMARY | 2022-03-06 01:53 | XMS_ITS | Encounter Summary ---
:1975 Author Organization [facility] Address [address] [place] [address] Care Team Providers Name Role Phone Elsewhere, Pcp Primary Care Provider Unavailable Reason for Visit Reason Comments Myriad Reclassification Encounter Details Date Type Department Care Team Description 03/03/2021 Clinical Department of Claudette Bansal Reclass ification Communication Medical Genetics Kierra Marsh, [facility] in [place], [address] [place] [address] [address] [facility] [phone] Social History Tobacco Use Types Packs/Day Years [...] this encounter Miscellaneous Notes Telephone Encounter - Deysi Alba - 02/03/2022 3:53 PM CDT Results received in dept pool. Forwarded to the provider for review. Telephone Encounter - Montse Zaldivar - 02/01/2022 3:55 PM CDT Images from the original note were not included. Reclassification report released by [facility] for the testing originally completed 03/11/21 APC [id number]: Uncertain to benign Forward results to Claudette. Telephone Encounter - Barry More - 03/16/2021 7:58 AM CDT Results received in dept pool. Forwarded to the provider for review. Telephone Encounter - Barry More - 03/15/2021 9:40 AM CDT Sent results to [facility] Telephone Encounter - Montse Zaldivar - 03/11/2021 4:26 PM CDT Testing has been completed in the [facility] portal, pending results being scanned into [employer] to be sentto Clinical team for review. VUS, forward to Claudette Telephone Encounter - Barry More - 03/03/2021 9:39 AM CDT Date: 03/03/21 Lab: [facility] - SEND TO ONCOLOGY Test: BRACAnalysis with [facility]- Sample: Lab to mail a saliva kit to the pt and Mail Order has been scheduled and checked in. Provider: Claudette Corona CGC Insurance: Commercial documented in this encounter Plan of Treatment Upcoming Encounters Date Type Specialty Care Team Description 04/11/2022 Clinical Communication Admitting/Central Scheduling 04/13/2022 Appointment Laboratory Medicine Debbie Ivey M.D. [address] [place] [phone] 04/13/2022 Office Visit Oncology Walter Barnhart M.D., Ph.D. [address] [place] [phone] documented as of this encounter Visit Diagnoses Not on filedocumented in this encounter Additional Health Concerns Infection Onset Date Last Indicated Resolved Time COVID19 Pending 04/25/2021 04/25/2021 04/25/2021 4:15 AM SYSTEM SUPPORT ADMINISTRATOR COVID19 Pending 05/08/2021 05/08/2021 05/08/2021 1:24 PM SYSTEM SUPPORT ADMINISTRATOR documented as of this encounter Care Teams Family Services Specialist Relationship Specialty Start Date End Date Elsewhere, Pcp PCP - General Internal Medicine 07/08/21 documented as of this encounter
--- OUTSIDE RECORDS SUMMARY | 2022-03-06 01:53 | XMS_ITS | Encounter Summary ---
:1975 Author Organization [facility] Address [address] [place] [address] Care Team Providers Name Role Phone Unavailable Primary Care Provider Unavailable Reason for Visit Reason Dottie Hwang Encounter Details Date Type Department Care Team Description 03/15/2021 Clinical Communication Department of Mamie Rees Oncology in [place], CarolSChapincitoN., R.N. [place], [place] [address] [facility] [address] [place] [phone] Social History Tobacco Use Types Packs/Day Years [...] or relatives? How often do you attend alevism or 1 to 4 times per year 02/09 sikhism services? Do you belong to any clubs or Yes 02/26/2021 organizations such as alevism groups, unions, fraternal or athletic groups, or [...] Laboratory Medicine Debbie Ivey M.D. [address] [place] [phone] 04/13/2022 Office Visit Oncology Walter Barnhart M.D., Ph.D. [address] [place] [phone] documented as of this encounter Visit Diagnoses Not on filedocumented in this encounter
--- OUTSIDE RECORDS SUMMARY | 2022-03-06 01:53 | XMS_ITS | Encounter Summary ---
:1975 Author Organization [facility] Address [address] [place] [address] Care Team Providers Name Role Phone Unavailable Primary Care Provider Unavailable Reason for Visit Reason Comments Nurse Visit Encounter Details Date Type Department Care Team Description 03/15/2021 Education Department of Oncology Mamie Rees Malignant Neoplasm Of in [place], Carol DoeSChapincitoN., R.N. Ovary Laterality [place] [address] [facility] Unknown (HCC) (Primary [address] [place], [place] Dx) [place] [phone] Social History Tobacco Use Types Packs/Day Years [...] documented as of this encounter Progress Notes Mamie Rees M.SDayan., R.N. - 03/15/2021 9:00 AM CDT Patient seen for Paxman cold cap fitting documented in this encounter Plan of Treatment Upcoming Encounters Date Type Specialty Care Team Description 04/11/2022 Clinical Communication Admitting/Central Scheduling 04/13/2022 Appointment Laboratory Medicine Debbie Ivey M.D. [address] [place] [phone] 04/13/2022 Office Visit Oncology Walter Barnhart M.D., Ph.D. 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
--- OUTSIDE RECORDS SUMMARY | 2022-03-06 01:53 | XMS_ITS | Encounter Summary ---
:1975 Author Organization [facility] Address [address] [place] [address] Care Team Providers Name Role Phone Unavailable Primary Care Provider Unavailable Reason for Visit Episode Based Medications (Routine) - Authorized Specialty Diagnoses / Procedures Referred By Contact Refer red To Contact Diagnoses Malignant Neoplasm Of Ovary Laterality Unknown (HCC) Walter Barnhart M.D., R Onc Rogo Procedures AL CARBOPLATIN INJECTION AL PACLITAXEL INJECTION AL INJECTION, PEGFILGRASTIM 6MG AL DEXAMETHASONE SODIUM PHOS Ph.D. [address] [place] [phone] Referral ID Status Reason Start Date Expiration Date Visits V isits Requested Authorized [id number] Authorized 02/17/2021 02/17/2022 12 12 Encounter Details Date Type Department Care Team Description 03/15/2021 Infusion Department of Oncology Walter Barnhart, Malignant Neoplasm Of in [facility] rojelio Mendoza, Ph.D. Ovary Laterality [address] [facility] Unknown (HCC) (Primary [place], [place] Dx) [phone] (Wo rk) Social History Tobacco Use Types [...] place to sleep or slept in a fci (including now)? Education Answer Date Recorded What [...] Laboratory Medicine Debbie Ivey M.D. [address] [place] [address] 04/13/2022 Office Visit Oncology Walter Barnhart M.D., Ph.D. 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 documented in this encounter Administered Medications Inactive Administered Medications - up to 3 most recent administrations Medication Order MAR Action Action Date Dose Rate Site CARBOplatin 730 mg in NaCl New Bag 03/15/2021 1:55 PM CDT 730 mg 696 mL/hr 0.9% 348 mL IVPB (PARAPLATIN) 730 mg (rounded from 729.6 mg, Target AUC = 6), intravenous, at 696 mL/hr, Administer over 30 Minutes, Once, On Sun03/15/21 at 1300, For 1 dose dexamethasone in NaCl 0.9% IVPB 12 New Bag 03/15/2021 9:47 AM CDT 12 mg 200 mL/hr mg (DECADRON) 12 mg, intravenous, at 200 mL/hr, Administer over 15 Minutes, Once, On Sun03/15/21 at 0930, For 1 dose, Give prior to PACLitaxel Refrigerate diphenhydrAMINE 50 mg in NaCl 0.9% New Bag 03/15/2021 10:27 AM CDT 50 mg 204 mL/hr IVPB (BENADRYL) 50 mg, intravenous, at 204 mL/hr, Administer over 15 Minutes, Once, On Sun03/15/21 at 0930, For 1 dose, Pre taxol. ivpb vs ivp to help with symptoms famotidine injection 20 mg (PEPCID) Given 03/15/2021 9:47 AM CDT 20 mg 20 mg, intravenous, Once, On Sun03/15/21 at 0930, For 1 dose, Give prior to PACLitaxel See IVAG for administration guidelines. fosaprepitant 150 mg in NaCl 0.9% New Bag 03/15/2021 10:44 AM CDT 150 mg 510 mL/hr (non-PVC) IVPB (EMEND) 150 mg, intravenous, at 510 mL/hr, Administer over 30 Minutes, Once, On Sun03/15/21 at 0930, For 1 dose, Incompatible with solutions containing divalent cations (calcium, magnesium) including lactated Ringer's solution. ondansetron in NaCl 0.9% IVPB 16 mg New Bag 03/15/2021 10:07 A M CDT 16 mg 232 mL/hr (ZOFRAN) 16 mg, intravenous, at 232 mL/hr, Administer over 15 Minutes, Once, On Sun03/15/21 at 0930, For 1 dose PACLitaxeL 294 mg in NaCl 0.9% New Bag 03/15/2021 11:15 AM CDT 294 mg 99.7 mL/hr (non-PVC) 299 mL IVPB (TAXOL) 294 mg (rounded from 295.75 mg = 175 mg/m2 ? 1.69 m2 Treatment Plan BSA from Measured weight), intravenous, at 99.7 mL/hr, Administer over 3 Hours, Once, On Sun03/15/21 at 1000, For 1 dose, Administer via 0.22 micron in-line filter. documented in this encounter
--- OUTSIDE RECORDS SUMMARY | 2022-03-06 01:53 | XMS_ITS | Encounter Summary ---
:1975 Author Organization [facility] Address [address] [place] [phone] Care Team Providers Name Role Phone Unavailable Primary Care Provider Unavailable Reason for Visit Outpatient (Routine) - Closed Specialty Diagnoses / Procedures Referred By Contact Refer red To Contact Clinical Genomics Diagnoses Malignant Neoplasm Of Ovary Laterality Unknown (HCC) Walter Branhart [place] M.D., Ph.D. [address] [place] [phone] Referral ID Status Reason Start Date Expiration Date Visits Requ ested Visits Authorized [id number] Closed 02/23/2021 02/23/2022 1 1 Encounter Details Date Type Department Care Team Description 03/02/2021 [facility]medicine [facility] [address] [place] [phone] Cancer Bladder Family History (Primary D x); Genetics in [place], Barry More [address] [place] [phone] Malignant Neoplasm Of Ovary Laterality U nknown (HCC); [place] [facility] Family [facility]o ry [address] [place] [phone] Social History Tobacco Use Types Packs/Day Years [...] documented as of this encounter Consult Notes Guanako Guaman M.B.BChapincitoS., Ph.D. - 03/02/2021 3:00 PM CDT Images from the original note were not included. REFERRING PROVIDER Walter Barnhart M.D., * CHIEF COMPLAINT Ovarian cancer HISTORY OF PRESENT ILLNESS Angelica Yang (Constance) is a 45 y.o. female referred today by Walter Barnhart M.D., due to her diagnosis of ovarian cancer at 45 years-old. Constance attended today???s consultation unaccompanied. She had abdominal ultrasound in the context of 6 months history of back pain, 1 month history of painful bowel movements and palpable abdominal mass on February 08, 2021. The ultrasound showed bilateral complex solid and cystic ovarian masses. 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 She is undergoing neoadjuvant chemotherapy (Paclitaxel and Carboplatin, started Feb 24, 2021) with plan for subsequent surgical debulking +/- hyperthermic intraperitoneal chemotherapy (HIPEC). The patient reports no other personal history of cancer. 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 She had Loop Electrosurgical Excision Procedure (LEEP) and reportedlynormal pap smears since then. Her last pap was done in 2017 and results were normal. She had surgical placement of bladder sling. She had endometrial ablation in 2013 for menorrhagia and started hormone replacement therapy at that time. Constance had menarche at age 13. She is = 4 para= 4 miscarriage= 1. Her first life was at age 28. There is no known history of diethylstilbestrol (DIONICIO) or radiation exposure. She is a lifelong non-smoker. She reports no history of heavy alcohol consumption. She had mammogram in 2017 that showed no radiographic evidence for malignancy with breast tissue reportedly appearing extremely dense. The family history is significant for bladder and pancreatic cancer, . Please see family history section below for additional details. Family History A detailed family history was obtained from the patient and a pedigree was constructed. The pedigreewill be saved as a scanned document and available for viewing under the Media tab of [employer]. Our risk assessment is based upon medical and family history information as provided by the patient, and may change in the future should new information be obtained. Relevant History: Constance's father had bladder cancer at age 71. He reportedly has a 1.5 pack year smoking history. Constance's paternal uncle had bladder cancer in his mid 60s in the context of 80 pack year smoking history. Constance's paternal grand mother from pancreatic cancer at age 87. Constance's maternal grandmother had bladder cancer in her early 60s and in her mid 60s from dementia. Constance's maternal grandmother was reportedly a non-smoker. Constance's maternal ancestry is Montenegr[place]; the patient???s paternal ancestry is [place]. There is no reported consanguinity or Ashkenazi Presybeterian ancestry. SUMMARY OF RELEVANT INVESTIGATIONS AND RISK ESTIMATIONS Mammogram Result June 28, 2016 Mammographically, the breast tissue is extremely dense. This may lower the sensitivity of mammography. There are no dominant masses, suspicious micro calcifications or areas of architectural distortion. There is no radiographic evidence for malignancy. Recommend annual mammograms. Mammogram assessment: ACR 1 Negative Breast Cancer Risk Estimate The SAVANAH (also known as Brian-Areli) model (Version 8.0b) was used to calculate Constance???s risk of breast cancer. According to this model, Constance???s estimated lifetime risk of developing breast cancer isaround 11.2% compared to the general population risk of around 10.3%. IMPRESSION/REPORT/PLAN PATIENT EDUCATION We discussed that cancer is a relatively common diagnosis in the general population, and the majority of these cancers are either sporadic or familial. Hereditary cancers are caused by mutations withina single cancer susceptibility gene. Families with hereditary cancers tend to have the following features: specific types of cancer in multiple close relatives and in several consecutive generations, early age at diagnosis (under 50), multiple primary or bilateral tumors, and a lack of environmental or other known risk factors About 1-2% of women in the [place] will develop ovarian cancer during their lifetime. It is believed that up to 20% of ovarian cancers are associated with a strong underlying hereditary susceptibility, such as mutations in the BRCA1 gene or the BRCA2 gene. Additionally, mutations in other genes, including the Barnes syndrome genes and RAD51C, RAD51D, and BRIP1, among others, have been found to cause a hereditary susceptibility to ovarian cancer. We discussed the cancer risks and medical management guidelines associated with mutations in these genes. We discussed how these mutations are inherited through families. We discussed testing panels that cover many genes known or thought to be associated with hereditary or familial cancer. Mutations in some of the genes account for rare hereditary cancer syndromes that include significant risks for cancer, while other genes are currently thought of as modifier genes that potentially increase the risk for cancer. There are several limitations of these tests. The exact cancer risks for some of the genes that are included on these panels are not known at this point in time. Therefore, it may be difficult to provide appropriate screening/medical management recommendations. Additionally, there is a significant chance that a variant of uncertain significance may be identified. We discussed different hereditary cancer panel test options. Approximate cost, insurance coverage, and laws governing genetic discrimination were discussed. Risks, benefits, and limitations of genetic testing were discussed. Implications of possible test results, including positive, negative, and variant of uncertain significance, were discussed. We briefly discussed that if the patient tests positive for a germline (i.e., hereditary) BRCA1 or BRCA2 mutation that she may qualify for use of PARP- inhibitors for future therapy. If the patient tested positive for a mutation in another gene, this would be unlikely to affect her current therapy. If the results of germline testing are negative, somatic tumor genetic testing may be an option. She maystill be eligible for a PARP-inhibitor if a BRCA1 or BRCA2 mutation is found in her tumor. In addition, niraparib (Zejula) has been approved for all advanced epithelial ovarian cancers. Treatment decisions are deferred to the patient's care team. RISK ASSESSMENT The patient???s personal and family history is highly suggestive of a genetic predisposition to cancer. The patient meets current National Comprehensive Cancer Network (NCCN) Testing Criteria for ovarian cancer susceptibility genes. Genetic testing is warranted for the patient as results will help clarify her future cancer risks and, thus, will help direct decisions regarding cancer screening and prevention. Genetic testing is most informative when it is first performed on a family member with a personal history of cancer, as is the case for this patient. Genetic testing is warranted for the patient as results will help clarify her future cancer risks and, thus, will help direct decisions regarding cancer screening and prevention. LEONEL Nolasco elected to pursue the hereditary ovarian cancer panel through [facility]. Constance will be sent a saliva kit by the laboratory. The laboratory will complete insurance pre-verification for testing and will contact the patient with estimated [id number] cost information via email or text message. Results will become available approximately 2-3 weeks from the release of testing. Screening and management recommendations will be made for the patient and her family members at the time of results disclosure. If results are negative or a variant of uncertain significance is identified, the patient will be contacted with results via the patient portal. If results are positive or complex, the patient will be offered an in-person or video return visit. If genetic test results are negative or a variant of uncertain significance is identified, the following screening recommendations would apply for Ms. Yagn and her relatives. PERSONAL SCREENING It is important for the patient to continue to follow the cancer treatment and any screening recommendations provided by her physicians based on her diagnosis of ovarian cancer. Other screening recommendations, such as those made by the [place] Cancer Society, do remain appropriate. These screening recommendations may change if there are changes to the patient's personal and/or family history. FAMILY SCREENING Due to the patient's diagnosis of ovarian cancer, her first- and second-degree female relatives are at slightly increased risk for developing ovarian cancer. They may wish to discuss ovarian cancer screening options or the possibility of prophylactic salpingo-oophorectomy with their physicians. Ovarian cancer screening consists of pelvic exams, CA-125 blood tests, and transvaginal ultrasounds. This screening approach, however, has not been proven to reduce mortality from ovarian cancer. These screening recommendations are based on national guidelines. Final screening recommendations should be deferred to the discretion of the managing physician. Other screening recommendations, such as those made by the [place] Cancer Society, do remain appropriate. It was a pleasure to meet Constance. She is certainly welcome to contact us with any additional questions. PATIENT EDUCATION: All of the above was discussed in detail with the patient who verbalized understanding. The patient's questions were answered. Total time: 50 minutes Electronically signed by Claudette Corona M.S., [facility] at 03/03/2021 8:24 AM CDT Associated attestation - Claudette Bansal M.S., [facility] - 03/03/2021 8:24 AM CDT I supervised VIKTORIYA Edwards, PhD, genetics fellow for this case. I agree with his assessment and plan. documented in this encounter Plan of Treatment Upcoming Encounters Date Type Specialty Care Team Description 04/11/2022 Clinical Communication Admitting/Central Scheduling 04/13/2022 Appointment Laboratory Medicine Debbie Ivey M.D. [address] [place] [phone] 04/13/2022 Office Visit Oncology Walter Barnhart M.D., Ph.D. [address] [place] [address] documented as of this encounter Results BRACAnalysis with [facility]-Sent Out Lab (03/05/2021 2:32 PM CDT) [facility] Method Time Signature BRACAnalysis SEE COMMENT 02/01/2022 MYRI with [facility] 2:46 PM CDT Comment: REVISED RESULTS Revised Report has been issued by [facility] xochitl Theorem. The revision has been sent to the guadalupe villegas. ----PREVIOUSLY REPORTED ---- For final report, select Lab-Send Out Lab Results hyperlink below., Flagged as: Normal (Re ported 03/15/2021 15:08) Specimen Anatomical Collection Method Collection Time Receive d Time (Source) Location / / Volume Laterality Blood (Blood, 03/05/2021 2:32 PM 03/15/20 2:32 Venous) CDT PM CDT Narrative This result has an attachment that is no t available. Raymon Bonilla M.D. LAB GENETIC TESTING Performing Organization Address City/State/ZIP Code Phon e Number [employer] [address] [place] [address] [employer] [place] [place] [address] [employer] [address] [facility] documented in this encounter Visit Diagnoses Diagnosis Cancer Bladder Family History - Primary Malignant Neoplasm Of Ovary Laterality U nknown (HCC) Cancer Pancreas Family History documented in this encounter
--- OUTSIDE RECORDS SUMMARY | 2022-03-06 01:53 | XMS_ITS | Encounter Summary ---
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 [address] [place] [address] [phone] Referral ID Status Reason Start Date Expiration Date Visits Requ ested Visits Authorized [id number] Closed 02/17/2021 03/19/2021 1 1 Encounter Details Date Type Department Care Team Description 02/23/2021 Hospital Encounter Department of Walter Barnhart Malign ant Neoplasm Radiology, Jeramy De La Cruz M.D., Ph.D. Of Ovary Laterality [facility], in [address] [place] [address] Unknown (HCC) [facility] [phone] [place] [address] [place], [place] (Work) [phone] Social History Tobacco Use Types Packs/Day Years [...] or relatives? How often do you attend cheondoism or 1 to 4 times per year 02/09 spiritism services? Do you belong to any clubs or Yes 02/26/2021 organizations such as cheondoism groups, unions, fraternal or athletic groups, or [...] slept in a skilled nursing (including now)? Sex Assigned at Date Recorded Female 02/10/2021 8:20 AM CDT documented as of this encounter Medications at Time of Discharge Medication Sig Dispensed Refills Start Date End Date apixaban (ELIQUIS) 2.5 mg Take 1 tablet (2.5 48 tablet 0 08/10/2021 tablet mg total) by mouth 2 (two) times a day for 24 days. biotin 2,500 mcg capsule Daily 0 04/05/2021 cephalexin (KEFLEX) 500 TAKE 1 CAPSULE BY 0 11/1904/05/2021 mg capsule MOUTH THREE TIMES DAILY FOR 7 DAYS cyanocobalamin (VITAMIN Daily 0 1 B12) 1,000 mcg tablet cyclobenzaprine Take 1 tablet (5 mg [...] times a day suspension as needed (constipation). mupirocin (BACTROBAN) 2 % APPLY OINTMENT 0 202004/05/2021 ointment TOPICALLY THREE TIMES DAILY . APPLY TO SKIN RASH ondansetron (ZOFRAN) 8 mg Take 1 tablet (8 mg 30 tablet 3 0 02/23/2021 08/10/2021 tabletIndications: total) by mouth Malignant Neoplasm Of every 8 (eight) Ovary Laterality Unknown hours as needed for (HCC) nausea or vomiting. predniSONE (DELTASONE) 20 Take 40 mg by mouth 0 0 01/11/2021 04/05/2021 mg tablet daily. prochlorperazine Take 1 tablet (10 mg 30 [...] Laboratory Medicine Debbie Ivey M.D. [address] [place] [phone] 04/13/2022 Office Visit Oncology Walter Barnhart M.D., Ph.D. [address] [place] [phone] documented as of this encounter Procedures Procedure Name Priority Date/Time Associated Comments Diagnosis CT ABDOMEN PELVIS RAD - Routine 02/23/2021 12:21 Malignant Resul ts for this WITH IV CONTRAST (most inpatients PM CDT Neoplasm Of Ovary pr ocedure are in and all Laterality the results outpatients) Unknown (HCC) section. CT CHEST WITH IV RAD - Routine 02/23/2021 12:21 Malignant Result s for this CONTRAST (most inpatients PM CDT Neoplasm Of Ovary proced ure are in and all Laterality the results outpatients) Unknown (HCC) section. documented in this encounter Results CT Abdomen Pelvis with IV Contrast (02/23/2021 12:21 PM CDT) Anatomical Region Laterality Modality Abdomen, Pelvis, Abdominal RST LOS, N/A Comp uted Tomography, Computed Abdominal ARZ LOS, Abdominal FLA LOS Aldo ography Specimen (Source) Anatomical Collection Method Collection Time Re ceived Time Location / / Volume Laterality 02/23/2021 12:41 PM CDT Impressions 02/23/2021 1:40 PM CDT 1. Redemonstration of mixed solid and multicystic bilateral ovarian lesions which appear grossly stable in overall s ize but do have new solid components. 2. Mildly increased peritoneal metastati c disease. 3. Stable moderate volume ascites. Narrative 02/23/2021 1:40 PM CDT EXAM: ??CT ABDOMEN PELVIS WITH IV CONTRAST COMPARISON: ??Outside CT abdomen and pel vis 02/08/2021. FINDINGS: ??Again seen are large mixed s olid and multicystic bilateral ovarian masses, the larger on the right measurin g 6.4 x 6.7 x 8.9 cm AP x TR x SI (series 1/image 107; 10/01) and approxima tely 9.0 x 7.1 x 6.2 cm on the (/120; ). Each mass is grossly unchanged in size since 02/08/2021; however there are new solid components within the righ t ovarian mass (10/01). Note that the two masses are contiguous with each other an d extent inferiorly into the pouch of Sergei. Each mass is also in direct con tact with the uterus over large portions and the bladder. Mild mass effect on the bladder which is displaced anteriorly and to the left. Moderate volume ascites. Nodular thicken ing along the anterior peritoneum, most prominent in the left upper quadrant anoop picious for peritoneal metastatic disease (07/10). Solid perihepatic and perisplenic soft t issue nodules should also represent capsular metastatic implants and overall mildly increased since 02/08/2021. For example, a left subdiaphragmatic solid l esion measures 2.6 x 1.0 cm, previously 2.1 x 0.5 cm (). Right subdiaphragmatic implants, soft ti ssue nodules adjacent to the right hepatic lobe and within the right hepato renal fossa have also mildly increased. Ascites tracks into the fissure for the ligamentum teres. Ill-defined geographic hypodensity adjacent to the ligamentum t eres should represent focal hepatic steatosis. Tiny hypodensity right hepati c lobe at the dome is technically indeterminant (06/24). Hypodensities along/in the superior supe rior spleen have slightly increased the largest measuring 1.2 cm, previously 1.1 cm (07/06; these should represent additional peritoneal metastatic implant s. Negative pancreas and adrenal glands. 2 mm nonobstructing calculus lower pole right kidney. Nonobstructed bowel. Negat salas appendix. Normal caliber abdominal aorta with mild calcified atherosclerosi s. Normal variant unfused sacral posterior elements. No suspicious osseou s lesion. This examination was performed in conjun ction with a CT of the chest, which will be reported separately. Procedure Note Carlitos Trevino M.D. - 02/23/2021Form atting of this note might be different from the original. EXAM: CT ABDOMEN PELVIS WITH IV CONTRAST COMPARISON: Outside CT abdomen and pelvi s 02/08/2021. FINDINGS: Again seen are large mixed el id and multicystic bilateral ovarian masses, the larger on the right measurin g 6.4 x 6.7 x 8.9 cm AP x TR x SI (series 1/image 107; 10/01) and approxima tely 9.0 x 7.1 x 6.2 cm on the (1/120; ). Each mass is grossly unchanged in size since 02/08/2021; however there are new solid components within the righ t ovarian mass (10/01). Note that the two masses are contiguous with each other an d extent inferiorly into the pouch of Sergei. Each mass is also in direct con tact with the uterus over large portions and the bladder. Mild mass effect on the bladder which is displaced anteriorly and to the left. Moderate volume ascites. Nodular thicken ing along the anterior peritoneum, most prominent in the left upper quadrant anoop picious for peritoneal metastatic disease (07/10). Solid perihepatic and perisplenic soft t issue nodules should also represent capsular metastatic implants and overall mildly increased since 02/08/2021. For example, a left subdiaphragmatic solid l esion measures 2.6 x 1.0 cm, previously 2.1 x 0.5 cm (). Right subdiaphragmatic implants, soft ti ssue nodules adjacent to the right hepatic lobe and within the right hepato renal fossa have also mildly increased. Ascites tracks into the fissure for the ligamentum teres. Ill-defined geographic hypodensity adjacent to the ligamentum t eres should represent focal hepatic steatosis. Tiny hypodensity right hepati c lobe at the dome is technically indeterminant (06/24). Hypodensities along/in the superior supe rior spleen have slightly increased the largest measuring 1.2 cm, previously 1.1 cm (07/06; these should represent additional peritoneal metastatic implant s. Negative pancreas and adrenal glands. 2 mm nonobstructing calculus lower pole right kidney. Nonobstructed bowel. Negat salas appendix. Normal caliber abdominal aorta with mild calcified atherosclerosi s. Normal variant unfused sacral posterior elements. No suspicious osseou s lesion. This examination was performed in conjun ction with a CT of the chest, which will be reported separately. IMPRESSION: 1. Redemonstration of mixed solid and mu lticystic bilateral ovarian lesions which appear grossly stable in overall s ize but do have new solid components. 2. Mildly increased peritoneal metastati c disease. 3. Stable moderate volume ascites. Walter Barnhart M.D., Ph.D. IMG CT PROCEDURES CT Chest with IV Contrast (02/23/2021 12:21 PM CDT) Anatomical Region Laterality Modality Chest, Thoracic RST LOS, Thoracic ARZ N/A Co mputed Tomography, Computed LOS, Thoracic ARZ LOS, Thoracic FLA Rene graphy LOS Specimen (Source) Anatomical Collection Method Collection Time Re ceived Time Location / / Volume Laterality 02/23/2021 12:37 PM CDT Impressions 02/23/2021 12:48 PM CDT Short interval (2 week) stability of a tiny right lower lobe pulmonary nodule. No additional findings concerning for metastatic disease. Narrative 02/23/2021 12:48 PM CDT EXAM: CT CHEST WITH IV CONTRAST COMPARISON: 02/11/2021 FINDINGS: Stable 2 mm nodule in the anterior right lower lobe (series 3/image 311). Tiny bilateral calcified granulomas. No new p ulmonary nodules. No adenopathy. No pleural effusions. This examination was performed in conjun ction with a CT of the abdomen, which will be reported separately. 3D maximum intensity projection (MIP) im ages were created on a dependent workstation as ordered by the treating p rovider and reviewed by the radiologist to increase sensitivity for detection of pulmonary nodules. Procedure Note Joshua Knight M.D. - 02/23/2021Fo rmatting of this note might be different from the original. EXAM: CT CHEST WITH IV CONTRAST COMPARISON: 02/11/2021 FINDINGS: Stable 2 mm nodule in the anterior right lower lobe (series 3/image 311). Tiny bilateral calcified granulomas. No new p ulmonary nodules. No adenopathy. No pleural effusions. This examination was performed in conjun ction with a CT of the abdomen, which will be reported separately. 3D maximum intensity projection (MIP) im ages were created on a dependent workstation as ordered by the treating p rovider and reviewed by the radiologist to increase sensitivity for detection of pulmonary nodules. IMPRESSION: Short interval (2 week) stability of a t iny right lower lobe pulmonary nodule. No additional findings concerning for metastatic disease. Walter Barnhart M.D., Ph.D. IMG CT PROCEDURES documented in this encounter Visit Diagnoses Diagnosis Malignant Neoplasm Of Ovary Laterality U nknown (HCC) documented in this encounter Administered Medications Inactive Administered Medications - up to 3 most recent administrations Medication Order MAR Action Action Date Dose Rate Site iohexol (OMNIPAQUE) dilution Given 02/23/2021 11:36 AM CDT 9,000 mg solution 9,000 mg iodine/1,000 mL water 9,000 mg, oral, Once in imaging, contrast, Starting on Sun02/23/21 at 1124, For 1 dose, Imaging Protocol Orders, Mix iohexol 300 (Omnipaque?? 300) 30 mL with 970 mL water for a total volume of 1,000 mLs. Patient to drink mixture in 40 minutes. iohexoL 300 mg iodine/mL solution 1-200 mL Given 02/23/2021 12:04 PM CDT 100 mL (OMNIPAQUE) 1-200 mL, intravenous, Once in imaging, contrast, Starting on Sun02/23/21 at 1124, For 1 dose, Imaging Protocol Orders, Dose per Radiant Medication Guidelines sodium chloride (PF) 0.9 % injection 1-1 00 mL Given 02/23/2021 12:04 PM CDT 50 mL 1-100 mL, intravenous, Once, On Sun02/23/21 at 1130, For 1 dose, Imaging Protocol Orders documented in this encounter
--- OUTSIDE RECORDS SUMMARY | 2022-03-06 01:53 | XMS_ITS | Encounter Summary ---
:1975 Author Organization [facility] Address [address] [place] [address] Care Team Providers Name Role Phone Unavailable Primary Care Provider Unavailable Reason for Visit Reason Comments Appointment Encounter Details Date Type Department Care Team Description 02/17/2021 Clinical Communication Department of Walter Barnhart, Appointment Oncology in M.D., Ph.D. [place], [place] [address] [facility] [address] [place] [phone] Social History Tobacco Use Types Packs/Day Years [...] or relatives? How often do you attend yarsanism or 1 to 4 times per year 02/09 hoahaoism services? Do you belong to any clubs or Yes 02/26/2021 organizations such as yarsanism groups, unions, fraternal or athletic groups, or [...] place to sleep or slept in a group home (including now)? Sex Assigned at Date Recorded Female 02/10/2021 8:20 AM CDT documented as of this encounter Miscellaneous Notes Telephone Encounter - Yoselin Girard - 02/17/2021 8:44 AM CDT Good morning, General Surgery calls and stated to add this pt on with you on Feb 23 in your Melanoma 140 slot. Is this ok? Thank you, Yoselin Girard [facility] routing- [facility] Onc Scheduling Patient Appointment Story Editor Medical Oncology Appointment Office Phone:?[phone] documented in this encounter Plan of Treatment Upcoming Encounters Date Type Specialty Care Team Description 04/11/2022 Clinical Communication Admitting/Central Scheduling 04/13/2022 Appointment Laboratory Medicine Debbie Ivey M.D. [address] [place] [phone] 04/13/2022 Office Visit Oncology Walter Barnhart M.D., Ph.D. [address] [place] [address] documented as of this encounter Visit Diagnoses Not on filedocumented in this encounter
--- OUTSIDE RECORDS SUMMARY | 2022-03-06 01:53 | XMS_ITS | Encounter Summary ---
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 [address] [facility] [address] [place] [phone] Referral ID Status Reason Start Date Expiration Date Visits V isits Requested Authorized [id number] Authorized 02/17/2021 02/17/2022 12 12 Encounter Details Date Type Department Care Team Description 03/14/2021 Hospital Encounter Department of Walter Barnhart Malign ant Neoplasm Laboratory Medicine SKelly, Ph. D. Of Ovary Laterality in [address] Unknown (HCC) [place], [place] [address] [place] [address] [place], [place] [phone] (Work) [phone] Social History Tobacco Use Types Packs/Day Years [...] 1 to 4 times per year 02/09 holiness services? Do you belong to any clubs [...] Appointment Laboratory Medicine Debbie Ivey M.D. [address] [place] [address] 04/13/2022 Office Visit Oncology Walter Barnhart M.D., Ph.D. [address] [place] [address] documented as of this encounter Procedures Procedure Name Priority Date/Time Associated Comments Diagnosis CBC CHEMO - NO ALERTS Routine 03/14/2021 9:47 Malignant Neopla sm Results for this AM CDT Of Ovary procedure are i n Laterality Unknown the resul ts (HCC) section. CANCER AG 125 (CA 125), Routine 03/14/2021 9:47 Malignant Neop lasm Results for this S AM CDT Of Ovary procedure are i n Laterality Unknown the resul ts (HCC) section. ASPARTATE Routine 03/14/2021 9:47 Malignant Neoplasm Result s for this AMINOTRANSFERASE (AST), AM CDT Of Ovary proc edure are in S/P Laterality Unknown the resul ts (HCC) section. CREATININE WITH EGFR, Routine 03/14/2021 9:47 Malignant Neopla sm Results for this S/P AM CDT Of Ovary procedure are i n Laterality Unknown the resul ts (HCC) section. BILIRUBIN, TOT, S/P Routine 03/14/2021 9:47 Malignant Neoplasm Results for this AM CDT Of Ovary procedure are i n Laterality Unknown the resul ts (HCC) section. documented in this encounter Results Creatinine with Estimated GFR (03/14/2021 9:47 AM CDT) athologist Signature Creatinine 0.67 0.59 - 03/14/2021 NPRG 1.04 mg/dL 10:10 AM CDT eGFR-Black/Afric >90 >=60 03/14/2021 NPRG an Macedonian mL/min/BSA 10:10 AM CDT Comment: ----ADDITIONAL INFORMATION---- Estimated GFR calculated using the 2009 CKD_EPI creatinine equation. eGFR Non-Black/ >90 >=60 mL/min/BSA 03/14/2021 10:10 AM CDT NPRG Comment: ----ADDITIONAL INFORMATION---- Estimated GFR calculated using the 2009 CKD_EPI creatinine equation. Specimen Anatomical Collection Method Collection Time Receive d Time (Source) Location / / Volume Laterality Blood (Blood, 03/14/2021 9:47 AM 03/14/20 9:51 Venous) CDT AM CDT Walter Barnhart M.D., Ph.D. LAB BLOOD ADD-ON Performing Organization Address City/[facility]/ZIP Code Phon e Number [address] [address] [address] [facility] [place] [phone] [address] CBC, Chemotherapy, No Alerts (03/14/2021 9:47 AM CDT) athologist Signature Hemoglobin 11.7 11.6 - 15.0 03/14/2021 NPRG g/dL 10:04 AM CDT Platelet Count 200 157 - 371 03/14/2021 NPRG x10(9)/L 10:04 AM CDT Leukocytes 3.5 3.4 - 9.6 03/14/2021 NPRG x10(9)/L 10:04 AM CDT Neutrophils 1.79 1.56 - 6.45 03/14/2021 NPRG x10(9)/L 10:04 AM CDT Specimen Anatomical Collection Method Collection Time Receive d Time (Source) Location / / Volume Laterality Blood (Blood, 03/14/2021 9:47 AM 03/14/20 9:51 Venous) CDT AM CDT Walter Barnhart M.D., Ph.D. LAB BLOOD ADD-ON Performing Organization Address [facility]/ZIP Code Phon e Number [place] [phone] [facility] NPRG [place] [phone] [address] Bilirubin, Total (03/14/2021 9:47 AM CDT) P athologist Signature Bilirubin, 0.5 <=1.2 mg/dL 03/14/2021 NPRG Total, P 10:10 AM CDT Specimen Anatomical Collection Method Collection Time Receive d Time (Source) Location / / Volume Laterality Blood (Blood, 03/14/2021 9:47 AM 03/14/20 9:51 Venous) CDT AM CDT Walter Barnhart M.D., Ph.D. LAB BLOOD ADD-ON Performing Organization Address City/[facility]/ZIP Code Phon e Number [address], [place] [address] [place] [address] AST (Aspartate Aminotransferase) (03/14/2021 9:47 AM CDT) Patholo gist Method Time Signature Aspartate 31 8 - 43 03/14/2021 NPRG Aminotransferase U/L 10:10 AM CDT (AST), P Specimen Anatomical Collection Method Collection Time Receive d Time (Source) Location / / Volume Laterality Blood (Blood, 03/14/2021 9:47 AM 03/14/20 9:51 Venous) CDT AM CDT Walter Barnhart M.D., Ph.D. LAB BLOOD ADD-ON Performing Organization Address City/State/ZIP Code Phon e Number [facility]- [address] [place] [address] 1 [facility] NPRG [place] [phone] [address] (ABNORMAL) Cancer Antigen 125 (CA 125) (03/14/2021 9:47 AM CDT) athologist Signature Cancer Ag 125 1168 (H) <46 U/mL 03/14/2021 AUST (CA 125), S 10:35 PM CDT Comment: Biotin has been identified by the [facility] as a potential interfering substance. ??Higher concentr ations of biotin may be found in multivitamins, hair/nail supple ments, and workout supplements. ??If the result does not [facility] clinical observations, repeat testing after patient [...] Location / / Volume Laterality Blood (Blood, 03/14/2021 9:47 AM 03/14/20 9:57 Venous) CDT PM CDT Walter Barnhart M.D., Ph.D. LAB BLOOD ADD-ON Performing Organization Address City/State/ZIP Code Phon e Number [facility]- [address] [place] [address] [facility] [place] [address] [facility] [address] documented in this encounter Visit Diagnoses Diagnosis Malignant Neoplasm Of Ovary Laterality U nknown (HCC) documented in this encounter
--- OUTSIDE RECORDS SUMMARY | 2022-03-06 01:53 | XMS_ITS | Encounter Summary ---
:1975 Author Organization [facility] Address [address] [place] [address] Care Team Providers Name Role Phone Unavailable Primary Care Provider Unavailable Reason for Visit Reason Comments Genetic Test Results Encounter Details Date Type Department Care Team Description 03/16/2021 Documentation Department of Medical Brian More Genetic Test Results Genetics in [place], [facility] [address] [place], [place] [address] [facility] [phone] [place], [place] [phone] (Work) [phone] Social History Tobacco Use Types Packs/Day Years [...] documented as of this encounter Progress Notes Barry More R - 03/16/2021 8:47 AM CDT Images from the original note were not included. CHIEF COMPLAINT/PURPOSE Negative genetic test results. HISTORY OF PRESENT ILLNESS Ms. Yang was seen in the Department of Clinical Genomics on 03/02/2021 due to her personal diagnosis of cancer. At that visit, she elected to pursue the [facility] These results were communicated to the patient via the patient online services portal by our genetic counseling gift shop assistant. IMPRESSION/REPORT/PLAN Genetic testing included sequence analysis and gross deletion/duplication analysis of 35 genes associated with hereditary ovarian cancer. For a full list of genes included in the analysis, please referto the genetic test report scanned into the patient's chart (document viewer tab). No pathogenic variants were detected by this testing. The fact that no pathogenic variants were detected in the genes for which Ms. Yang was tested is reassuring. However, the fact that a pathogenic variant was not identified does not entirely eliminate the possibility that she and/or her family members have a hereditary susceptibility to cancer. Genetic testing has less than 100% sensitivity, meaning there is a small possibility that a pathogenic variant exists in one of the genes analyzed which cannot be identified by current testing methodology. It is also possible that variants in cancer susceptibility genes which have not yet been discoveredmay be contributing to her personal and/or family history of cancer. 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 ?? A VUS is a change in the spelling of a gene for which the clinical implications are unknown. A VUSis a common finding on genetic testing. It could be a non-harmful change in the DNA (a benign variant) that has no clinical significance, or it could be a harmful change (a pathogenic mutation). A VUS c annot be used to make medical decisions because its significance is unknown. Known pathogenic mutations in the APC gene are associated with autosomal dominant familial adenomatous polyposis (FAP) attenuated FAP (AFAP) and gastric adenocarcinoma and proximal polyposis of the stomach (GAPPS). We typically do not test relatives clinically or change medical management based on a variant of uncertain significance. If the laboratory changes the interpretation of this particular genetic change, they will send a revised report and we will contact the family with this information. PERSONAL AND FAMILY SCREENING RECOMMENDATIONS Given that a hereditary susceptibility to cancer has not been identified by genetic testing, it is generally recommended to screen patients and their family members based on their personal and/or family histories of cancer. It is important for Ms. Yang to continue to follow the treatment, screening and management recommendations as provided by her care team based on her personal and family history of cancer. Due to the patient's diagnosis of ovarian [...] recommendations, such as those made by the [employer], do remain appropriate. FOLLOW UP/RECOMMENDATIONS It is recommended that Ms. Yang contact our clinic if there are changes to her personal or family history of cancer, as this information may change our genetic testing recommendations. Additionally, she is welcome to contact our clinic periodically, as our genetic testing options will likely improve over time. She is welcome to contact our clinic with any questions. Electronically signed by Claudette Corona M.S., [facility] at 03/16/2021 11:50 AM CDT documented in this encounter Plan of Treatment Upcoming Encounters Date Type Specialty Care Team Description 04/11/2022 Clinical Communication Admitting/Central Scheduling 04/13/2022 Appointment Laboratory Medicine Debbie Ivey M.D. [address] [place] [phone] 04/13/2022 Office Visit Oncology Walter Barnhart M.D., Ph.D. [address] [place] [phone] documented as of this encounter Visit Diagnoses Not on filedocumented in this encounter
--- OUTSIDE RECORDS SUMMARY | 2022-03-06 01:53 | XMS_ITS | Encounter Summary ---
:1975 Author Organization [facility] Address [address] [place] [address] Care Team Providers Name Role Phone Unavailable Primary Care Provider Unavailable Encounter Details Date Type Department Care Team Description 03/03/2021 Hospital Encounter Department of Raymon Bonilla Neoplasm Of Ovary Laterality Unknown (HCC); Laboratory Medicine Kelly Myles Cancer Bladder Family History; and Pathology, [address] [place] [address] Cancer Pan[address] Family History [facility] in [place], [place] [phone] [place] [address] [place], [place] (Work) [phone] Social History Tobacco Use Types Packs/Day Years [...] Appointment Laboratory Medicine Debbie Ivey M.D. [address] [place] [phone] 04/13/2022 Office Visit Oncology Walter Barnhart M.D., Ph.D. [address] [place] [phone] documented as of this encounter Procedures Procedure Name Priority Date/Time Associated Comments Diagnosis INTEGRATED Routine 03/05/2021 2:32 PM Malignant Neoplasm Res ults for this BRACANALYSIS WITH CDT Of Ovary Laterality pro cedure are in [facility] Unknown (HCC) the results [facility] Cancer Bladder section. Family History Cancer Pancreas Family History documented in this encounter Results [facility] with [facility] (03/05/2021 2:32 PM CDT) [facility] Method Time Signature BRACAnalysis SEE COMMENT 02/01/2022 HAN Phan 2:46 PM CDT Comment: REVISED RESULTS Revised Report has been issued by [facility]. The revision has been sent to the [...] Organization Address City/State/ZIP Code Phon e Number [employer] [address] [place] [address] [employer] [place] [employer] 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
--- OUTSIDE RECORDS SUMMARY | 2022-03-06 01:53 | XMS_ITS | Encounter Summary ---
:1975 Author Organization [facility] Address [address] [place] [id number] Care Team Providers Name Role Phone Unavailable Primary Care Provider Unavailable Reason for Visit Reason Comments Follow-up Encounter Details Date Type Department Care Team Description 02/17/2021 Clinical Communication Department of Fernando Helm ow- Radiology, Jason Chery M.D. [facility], in [address] [place] [phone] [place] [address] [place] [phone] Social History Tobacco Use Types Packs/Day Years [...] 1 to 4 times per year 02/09 [employer] services? Do you belong to any clubs [...] or slept in a residential (including now)? Sex Assigned at Date Recorded Female 02/10/2021 8:20 AM CDT documented as of this encounter Miscellaneous Notes Telephone Encounter - Norma Claros R.N. - 02/17/2021 9:14 AM CDT Information Discussed Post procedure phone call information. Biopsy or procedure performed Mass Date of procedure: February 16, 2021 Performing practitioner: Volodymyr Emergent signs and symptoms: Denies emergent signs or symptoms including continuous bleeding from the biopsy/procedure site, new or worsening problems with shortness of breath, or pain at the biopsy/procedure site greater or equal to 6. User Message (If one or more boxes with emergent signs/symptoms are checked, instruct the patient togo to the nearest ED and proceed to patient disposition section. If no emergent signs or symptoms checked continue) Non emergent signs/symptoms: Denies non-emergent signs/symptoms including new or increasing redness or tenderness surrounding the biopsy/procedure site, pain at biopsy/procedure site is unacceptable compared with pre-procedure pain, abnormal warmth/heating from site, new or increasing swelling, and oral temp greater than 100.4 F User Message (If any box is checked, instruct pt to make apt with their primary care provider and reinforce pts post biopsy/procedure discharge instructions. Then proceed to disposition section. If no boxes are checked proceed.) Other Medical Problems unrelated to biopsy: Pt denies other problems unrelated to biopsy Pt Disposition: Pt denies any biopsy complications. Pt instructed to call primary care for additional concerns PLAN Disposition/Recommendation: self-care . appropriate at this time, patient encouraged to call back with questions Information/Education: patient/caller able to teach back Caller agreeable to plan of care: yes The following references were used: nursing clinical judgement documented in this encounter Plan of Treatment Upcoming Encounters Date Type Specialty Care Team Description 04/11/2022 Clinical Communication Admitting/Central Scheduling 04/13/2022 Appointment Laboratory Medicine Debbie Ivey M.D. [address] [place] [phone] 04/13/2022 Office Visit Oncology Walter Barnhart M.D., Ph.D. [address] [place] [phone] documented as of this encounter Visit Diagnoses Not on filedocumented in this encounter
--- OUTSIDE RECORDS SUMMARY | 2022-03-06 01:53 | XMS_ITS | Encounter Summary ---
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 [address] [place] [phone] Referral ID Status Reason Start Date Expiration Date Visits V isits Requested Authorized [id number] Authorized 02/17/2021 02/17/2022 12 12 Encounter Details Date Type Department Care Team Description 02/25/2021 Infusion Department of Oncology Walter Barnhart, Malignant Neoplasm Of in [facility] rojelio Mendoza, Ph.D. Ovary Laterality [address] [facility] Unknown (HCC) ([place], [place] Dx) [phone] (Wo rk) Social History Tobacco Use Types [...] Sign Reading Time Taken Comments Blood Pressure 126/83 02/25/2021 12:00 PM CDT Pulse 58 02/25/2021 12:20 PM CDT Temperature 36.5 ??C (97.7 ??F) 02/25/2021 8:06 AM CDT Respiratory Rate 18 02/25/2021 12:00 PM CDT Oxygen Saturation 100% 02/25/2021 10:37 AM CDT Inhaled Oxygen Concentration - - Weight 62.5 kg (137 lb 12.6 oz) 02/25/2021 8:06 AM CDT Height - - Body Mass Index 21.63 02/23/2021 1:35 PM CDT documented in this encounter Plan of Treatment Upcoming Encounters Date Type Specialty Care Team Description 04/11/2022 Clinical Communication Admitting/Central Scheduling 04/13/2022 Appointment Laboratory Medicine Debbie Ivey M.D. [address] [place] [phone] 04/13/2022 Office Visit Oncology Walter Barnhart M.D., Ph.D. 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) - Primary documented in this encounter Administered Medications Inactive Administered Medications - up to 3 most recent administrations Medication Order MAR Action Action Date Dose Rate Site CARBOplatin 740 mg in NaCl New Bag 02/25/2021 1:07 PM CDT 740 mg 698 mL/hr 0.9% 349 mL IVPB (PARAPLATIN) 740 mg (rounded from 738.6 mg, Target AUC = 6), intravenous, at 698 mL/hr, Administer over 30 Minutes, Once, On Sun02/25/21 at 1145, For 1 dose dexamethasone in NaCl 0.9% IVPB 12 New Bag 02/25/2021 8:42 AM CDT 12 mg 200 mL/hr mg (DECADRON) 12 mg, intravenous, at 200 mL/hr, Administer over 15 Minutes, Once, On Sun02/25/21 at 0830, For 1 dose, Give prior to PACLitaxel Refrigerate diphenhydrAMINE injection 50 mg (BENADRY L) Given 02/25/2021 8:36 AM CDT 50 mg 50 mg, intravenous, Once, On Sun02/25/21 at 0830, For 1 dose, Give prior to PACLitaxel. famotidine injection 20 mg (PEPCID) Given 02/25/2021 8:33 AM CDT 20 mg 20 mg, intravenous, Once, On Sun02/25/21 at 0830, For 1 dose, Give prior to PACLitaxel See IVAG for administration guidelines. fosaprepitant 150 mg in NaCl 0.9% New Bag 02/25/2021 12:18 PM CDT 150 mg 510 mL/hr (non-PVC) IVPB (EMEND) 150 mg, intravenous, at 510 mL/hr, Administer over 30 Minutes, Once, On Sun02/25/21 at 0830, For 1 dose, Incompatible with solutions containing divalent cations (calcium, magnesium) including lactated Ringer's solution. ondansetron in NaCl 0.9% IVPB 16 mg New Bag 02/25/2021 9:01 AM CDT 16 mg 232 mL/hr (ZOFRAN) 16 mg, intravenous, at 232 mL/hr, Administer over 15 Minutes, Once, On Sun02/25/21 at 0830, For 1 dose PACLitaxeL 300 mg in NaCl 0.9% New Bag 02/25/2021 9:27 AM CDT 300 mg 100 mL/hr (non-PVC) 300 mL IVPB (TAXOL) 300 mg (rounded from 299.25 mg = 175 mg/m2 ? 1.71 m2 Treatment Plan BSA from Measured weight), intravenous, at 100 mL/hr, Administer over 3 Hours, Once, On Sun02/25/21 at 0845, For 1 dose, Administer via 0.22 micron in-line filter. documented in this encounter
--- OUTSIDE RECORDS SUMMARY | 2022-03-06 01:54 | XMS_ITS | Encounter Summary ---
:1975 Author Organization [facility] Address [address] [place] [address] Care Team Providers Name Role Phone Unavailable Primary Care Provider Unavailable Reason for Referral MRI/CAT/PET Scan (Routine) - Closed Specialty Diagnoses / Procedures Referred By Contact Refer red To Contact Radiology Diagnoses Mass Adnexal Denisha Oviedo M.D. [facility] Procedures CT Abdomen and/or Pelvis Biopsy [address] [place] [address] Referral ID Status Reason Start Date Expiration Date Visits Requ ested Visits Authorized [id number] Closed 02/11/2021 02/11/2022 1 1 Reason for Visit Auth/Cert Specialty Diagnoses / Procedures Referred By Contact Refer red To Contact Diagnoses Mass Adnexal Procedures CT ABDOMEN AND/OR PELVIS BIOPSY OP Referral ID Status Reason Start Date Expiration Date Visits Requ ested Visits Authorized [id number] 1 1 Encounter Details Date Type Department Care Team Description 02/16/2021 Hospital Encounter Department of Denisha Oviedo M ass Adnexal Radiology, Monet Robb M.D. [facility], in [address] [place], [place] [address] [place] [id number] [place], [place] [phone] (Wo rk) [phone] [phone] Social History Tobacco Use Types Packs/Day Years [...] slept in a nursing home (including now)? Sex Assigned at Date Recorded Female 02/10/2021 8:20 AM CDT documented as of this encounter Last Filed Vital Signs Vital Sign Reading Time Taken Comments Blood Pressure 119/82 02/16/2021 10:45 AM CDT Pulse 68 02/16/2021 10:45 AM CDT Temperature 37 ??C (98.6 ??F) 02/16/2021 9:02 AM CDT Respiratory Rate 24 02/16/2021 9:30 AM CDT Oxygen Saturation 100% 02/16/2021 10:45 AM CDT Inhaled Oxygen Concentration - - Weight 62.1 kg (136 lb 14.5 oz) 02/16/2021 8:29 AM CDT Height - - Body Mass Index 21.67 02/11/2021 7:58 AM CDT documented in this encounter Discharge Instructions Discharge InstructionsMonica Matthews R.N. - 02/16/2021 9:20 AM CDT Instructions After Sedation or Anesthesia After you have sedation or anesthesia, it is common to have lapses of memory, slowed reaction time and impaired judgment. Do not drive or operate motorized vehicles or equipment for the rest of the day. This is for your safety and the safety of others. Air travel by yourself on the day of your procedure is not advised. For the rest of the day: ??? Rest. ??? Do not return to work or school. ??? Do not take on responsibility for children or anyone who depends on your care. ??? Do not use exercise equipment or take part in rough play or sports. ??? Do not drink alcoholic beverages. Sedation or anesthesia medication also may increase your risk of falling. Use caution and ask for help when you walk or move around. You may want to have someone help you for the rest of the day. You may resume your usual diet when you feel able to do so, unless you are told otherwise. Contact your health care provider if you have: ??? The following side effects longer than 24 hours: - Ongoing dizziness. - Persistent nausea or repeated vomiting. ??? Signs of infection, which may include: - Temperature of 100.4 degrees Fahrenheit (38 degrees Celsius) or higher. - Chills. - Increase swelling, tenderness or redness at the IV insertion site. - Increased pain or pain not relieved by pain medication. Discharge Instr - ActivityBeJaquelin person APRN, C.N.P., M.S. - 02/16/2021 7:22 AM CDT Care for the percutaneous site Keep dressing in place over site for 24 hours. 24 hours after procedure it is okay to shower. Remove the dressing, clean and rinse puncture site gently with soap and water and dry thoroughly. Reapply Band-Aid to the site or leave open to air. Do not submerge puncture site in water such as tub bathing or swimming until completely healed. Activity No vigorous activities for 24 hours-48 hours Seeking emergency care Contact your health care provider immediately or seek emergency care for the following symptoms: A temperature of 101 degrees Fahrenheit (38.3 degrees Celsius) or higher Chills Severe abdominal pain Drainage that has blood in it for more than 24 hours. For nonemergent questions or concerns: If you have questions related to the procedure, please contact the [facility] fabrication operator ([phone]) and ask to be connected to the non-vascular interventional radiology fellow correctional therapy director documented in this encounter Medications at Time of Discharge Medication Sig Dispensed Refills Start Date End Date biotin 2,500 mcg capsule Daily 0 04/05/2021 cephalexin (KEFLEX) 500 TAKE 1 CAPSULE BY 0 11/1904/05/2021 mg capsule MOUTH THREE TIMES DAILY FOR 7 DAYS cyanocobalamin (VITAMIN Daily 0 1 B12) 1,000 mcg tablet ibuprofen (ADVIL,MOTRIN) Take 200 mg by mouth 0 05/14/2021 200 mg tablet every 6 (six) hours as needed. mupirocin (BACTROBAN) 2 % APPLY OINTMENT 0 202004/05/2021 ointment TOPICALLY THREE TIMES DAILY . APPLY TO SKIN RASH predniSONE (DELTASONE) 20 Take 40 mg by mouth 0 0 01/11/2021 04/05/2021 mg tablet daily. progesterone (PROMETRIUM) Take 200 mg by mouth 0 12/17/2020 04/25/2021 100 mg capsule at bedtime. Vyvanse 70 mg capsule Take 70 mg by mouth 0 01/2408/10/2021 daily. documented as of this encounter Miscellaneous Notes Result Encounter Note - Lupis Vera M.D. - 02/17/2021 6:56 PM CDT I have reviewed the final pathology report and the identified diagnosis is consistent with the patient's clinical presentation. documented in this encounter Plan of Treatment Upcoming Encounters Date Type Specialty Care Team Description 04/11/2022 Clinical Communication Admitting/Central Scheduling 04/13/2022 Appointment Laboratory Medicine Debbie Ivey M.D. [address] [place] [address] 04/13/2022 Office Visit Oncology Walter Barnhart M.D., Ph.D. [address] [place] [address] documented as of this encounter Procedures Procedure Name Priority Date/Time Associated Comments Diagnosis CT ABDOMEN AND/OR RAD - Routine 02/16/2021 8:48 Mass Adnexal Result s for this PELVIS BIOPSY (most inpatients AM CDT procedure are in and all the results outpatients) section. SURGICAL Routine 02/16/2021 8:45 Mass Adnexal Results for this PATHOLOGY, FROZEN AM CDT procedure are in LAB the results section. CYTOLOGY FINE Timed 02/16/2021 8:25 Results for this NEEDLE ASPIRATION AM CDT procedure are in (INCLUDES CORE the results BIOPSIES section. documented in this encounter Results CT Abdomen and/or Pelvis Biopsy (02/16/2021 8:48 AM CDT) Anatomical Region Laterality Modality Abdomen, Pelvis, Abdominal RST LOS, Comp uted Tomography, Computed Vascular Interventional ARZ LOS, Tomogra phy Procedure FLA LOS, Abdominal FLA LOS, Procedural Specimen (Source) Anatomical Collection Method Collection Time Re ceived Time Location / / Volume Laterality 02/16/2021 8:55 AM CDT Impressions 02/16/2021 11:[address]-guided right adnexal mass biopsy. Pathology pending. EP Narrative 02/16/2021 11:32 AM CDT EXAM: CT ABDOMEN AND/OR PELVIS BIOPSY PRE-PROCEDURE: Patient seen, evaluated, history reviewed, and approved for sedation. Airway, heart, and lung exam s atisfactory for sedation. Discussed risks, benefits, alternatives for proced ure, and/or sedation. The roles and responsibilities of care team members, r esidents, and fellows were discussed. Patient understands information and ques tions answered. Informed consent obtained from the patient. Immediately p rior to starting the procedure, in the presence of the assisting personnel, a p rocedural pause was conducted to verify correct patient identity and verificatio n of procedure to be performed, and as applicable, correct side and site, corre ct patient position, availability of implants, special equipment, or special requirements, and all image and specimen identification data. INTRAPROCEDURE: Moderate sedation was ad ministered by sedation nurse under my supervision. The patient was continuousl y monitored with real time oxygen saturation, heart rate, ECG rhythm strip and blood pressure throughout administration of the sedation and perfo rmance of the procedure. The total intra-procedural sedation time was: 10 m inutes. TECHNIQUE: Sterile;1% lidocaine for loca l anesthesia and CT Guidance. ?? TARGET LOCATION: Right adnexal mass. BIOPSY INSTRUMENT: 17/18 gauge introduce r/biopsy device NUMBER OF SAMPLES OBTAINED: 5 COMPLICATION: None ? BLOOD LOSS: None. PATIENT INSTRUCTIONS: Patient may be dis missed from the radiology department when dismissal criteria met. POST-PROCEDURE DIAGNOSIS: Indeterminate right adnexal mass. Procedure Note Devin Helm M.D. - 2020 EXAM: CT ABDOMEN AND/OR PELVIS BIOPSY PRE-PROCEDURE: Patient seen, evaluated, history reviewed, and approved for sedation. Airway, heart, and lung exam s atisfactory for sedation. Discussed risks, benefits, alternatives for proced ure, and/or sedation. The roles and responsibilities of care team members, r esidents, and fellows were discussed. Patient understands information and ques tions answered. Informed consent obtained from the patient. Immediately p rior to starting the procedure, in the presence of the assisting personnel, a p rocedural pause was conducted to verify correct patient identity and verificatio n of procedure to be performed, and as applicable, correct side and site, corre ct patient position, availability of implants, special equipment, or special requirements, and all image and specimen identification data. INTRAPROCEDURE: Moderate sedation was ad ministered by sedation nurse under my supervision. The patient was continuousl y monitored with real time oxygen saturation, heart rate, ECG rhythm strip and blood pressure throughout administration of the sedation and perfo rmance of the procedure. The total intra-procedural sedation time was: 10 m inutes. TECHNIQUE: Sterile;1% lidocaine for loca l anesthesia and CT Guidance. TARGET LOCATION: Right adnexal mass. BIOPSY INSTRUMENT: 17/18 gauge introduce r/biopsy device NUMBER OF SAMPLES OBTAINED: 5 COMPLICATION: None BLOOD LOSS: None. PATIENT INSTRUCTIONS: Patient may be dis missed from the radiology department when dismissal criteria met. POST-PROCEDURE DIAGNOSIS: Indeterminate right adnexal mass. IMPRESSION: CT-guided right adnexal mass biopsy. Pat hology pending. EP Denisha DONNELLY CT PROCEDURES Surgical Pathology, Frozen Lab (02/16/2021 8:45 AM CDT) Component Value Ref Test Analysis Performed Pathologis t Range Method Time At [facility] 02/20/2021 STMA 2:26 PM CDT Report Andrew Chong M.D. [phone] 02/20/2021 S TMA electronically 2:26 PM signed by CDT I verify that I have examined all relevant slides/materials for the specimen(s) and rendered or confirmed the diagnosis. Frozen A. 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 ??Pending 2:26 PM Report immunohistochemistry stains. CDT Signed by Yamilex Ghosh M.D. (Ray), Ph.D. [phone] 02/16/2021 11:54 AM Gross A. ??Received fresh labeled pelvic mass is a 0.2 x 0.1 x 02/20/2021 STMA Description 0.1 cm aggregate of pink-orosco tissue fragments. ??All 2:26 PM submitted for frozen and permanent sections. ??Grossed by CDT KMW. Block Summary A Pelvic mass 02/20/2021 STMA A1 Pelvic mass - frozen 2:26 PM CDT Disclaimer This test was developed and its performance characteri stics 02/20/2021 STMA determined by [facility] in a manner consistent with CLIA 2:26 PM requirements. This test has not been cleared or approved by CDT the U.S. Food and Drug Administration. Interpretation FINAL DIAGNOSIS 02/20/2021 STMA 2:26 PM A. ??Soft tissue, pelvic mass, biopsy: ??Positive for CDT malignancy. ??Rare malignant cells seen associated with necrosis. ??Interpretation limited by sparse cellularity. See case [id number] for diagnosis. Ancillary immunostains trina the tumor cells positive for PAX-8, while negative for HNF1B. ??Immunostains for p53, WT-1 and p16 show nonspecific immunoreactivity. Specimen (Source) Anatomical Collection Method Collection Time Re ceived Time Location / / Volume Laterality Biopsy (Pelvis) 02/16/2021 8:45 AM CDT Narrative This result has an attachment that is no t available. Denisha Oviedo M.D. LAB SURG PATH ORDERABLES Performing Organization Address City/State/ZIP Code Phon e Number [facility] - [address] [place], [place] [address] [facility] [place] [address] [facility] [address] Cytology Fine Needle Aspiration (including core biopsies) (02/16/2021 8:25 AM CDT) Component Value Ref Test Analysis Performed Pathologis t Range Method Time At [facility] 02/17/2021 DTL 6:02 PM CDT Disclaimer This test was developed and its performance characteri stics 02/17/2021 DTL determined by [facility] in a manner consistent with CLIA 6:02 PM requirements. This test has not been cleared or approved by CDT the U.S. Food and Drug Administration. Participated in [place] 02/17/2021 DTL the Kelly Baires, 6:02 PM Interpretation Ph.D.-Pathology CDT Resident Report Edson Lainez M.D. [phone] 02/17/2021 DT L electronically 6:02 PM signed by CDT I verify that I have examined all relevant slides/materials for the specimen(s) and rendered or confirmed the diagnosis. Seen in consultation with: Andrew Chong M.D. [phone] Gross Description Received 5 alcohol-fixed smears and tissue. 02/17/2021 DTL 6:02 PM CDT Additionally, received in formalin labeled with the patient's name, medical record number and pelvic mass are multiple pale orosco-yellow fragments, ranging from minute to 0.3 cm in greatest dimension. ??The specimens are submitted en toto in cassette A1. ??Grossed by BW Source A. Soft Tissue, 02/17/2021 DTL Pelvic Mass, fine 6:02 PM needle aspiration CDT Interpretation A. Soft Tissue, Pelvic Mass, fine needle aspiration 02/17/2021 DTL (smears/tissue): ??positive for malignancy. 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 ??Immunohistochemical studies CDT performed on block A1 show that the tumor cells are positive for PAX8, p53 and block positive for p16, supporting the diagnosis. Specimen Anatomical Collection Method Collection Time Receive d Time (Source) Location / / Volume Laterality Varies (Pelvis) 02/16/2021 8:25 AM 2020 CDT 10:10 AM CDT Narrative This result has an attachment that is no t available. Denisha Oviedo M.D. LAB SURG PATH ORDERABLES Performing Organization Address City/State/ZIP Code Phon e Number [facility] - [address] [place], [place] [address] [facility] [place] [address] [facility] [address] documented in this encounter Visit Diagnoses Diagnosis Mass Adnexal documented in this encounter Administered Medications Inactive Administered Medications - up to 3 most recent administrations Medication Order MAR Action Action Date Dose Rate Site acetaminophen tablet 1,000 mg Given 02/16/2021 10:09 AM CDT 1,00 0 mg (TYLENOL) 1,000 mg, oral, Every 6 hours PRN, mild pain or score 1-3 of 10, Starting on Sun02/16/21 at 0858, (not to exceed 4 grams in 24 hours) fentaNYL injection 25 mcg (SUBLIMAZE) Given 02/16/2021 8:39 AM CDT 25 mcg 25 mcg, intravenous, Every 2 min PRN, sedation, or pain before and during sedation procedure, Starting on Sun02/16/21 at 0832, Intraprocedure (RAD), Administer over 1 minute immediately prior to the procedure. May repeat every 2 minutes to a maximum of 200 mcg, until pain score of 3 or less, or until the patient meets the pain comfort goal. Do not give if respiratory rate is less than 8 breaths/minute Given 02/16/2021 8:36 AM CDT 25 mcg flumazeniL injection 0.2 mg (ROMAZICON) 0.2 mg, intravenous, Once as needed, rev ersal, Starting on Sun02/16/21 at 0832, For 1 dose, Intraprocedure (RAD), Administer once if patient has a RASS score of -4, -5 and has a respiratory rate less than 8 breaths/minute. lactated ringers 20 mL/hr, intravenous, Once as needed, t o keep vein open, Starting on Sun02/16/21 at 0832, For 1 dose, Intraprocedure (RAD) midazolam (PF) injection 0.25 mg (VERSED ) 0.25 mg, intravenous, Every 2 min PRN, s edation, RASS -2, Starting on Sun02/16/21 at 0832, Intraprocedure (RAD), May repeat e very 2 minutes to a maximum of 5 mg. Do not give if respiratory rate is less than 8 breaths/minute . midazolam (PF) injection 0.5 mg (VERSED) 0.5 mg, intravenous, Once as needed, sed ation, Starting on Sun02/16/21 at 0832, For 1 dose, Intraprocedure (RAD) midazolam (PF) injection 0.5 mg (VERSED) 0.5 mg, intravenous, Every 2 min PRN, se dation, RASS -1, Starting on Sun02/16/21 at 0832, Intraprocedure (RAD), May repeat e very 2 minutes for a maximum of 5 mg. Do not give if respiratory rate is less than 8 breaths/mi nute. midazolam (PF) injection 1 mg (VERSED) Given 02/16/2021 8:36 AM CDT 1 mg 1 mg, intravenous, Every 2 min PRN, sedation, RASS 0, Starting on Sun02/16/21 at 0832, Intraprocedure (RAD), May repeat every 2 minutes for a maximum of 5 mg. Do not give if respiratory rate is less than 8 breaths/minute. naloxone injection 0.2 mg (NARCAN) 0.2 mg, intravenous, As needed, respirat ory depression, Starting on Sun02/16/21 at 0858, For RASS Score -4 or less, respiratory rate of l ess than 8 breaths/min. Notify provider/service and rapid response team (if av ailable at institution). naloxone injection 0.2 mg (NARCAN) 0.2 mg, intravenous, Once as needed, res piratory depression, Starting on Sun02/16/21 at 0832, For 1 dose, Intraprocedure (RAD ), Administer once if patient has a RASS score of -4, -5 and has a respiratory rate less than 8 breaths/minute. ondansetron (PF) injection 4 mg (ZOFRAN) 4 mg, intravenous, Every 6 hours PRN, na usea, vomiting, Starting on Sun02/16/21 at 0858, For 48 hours, Reassess for nausea or vomiting after at least 10 minutes. If nausea or vomiting persists administer n ext ordered antiemetic medications (order for antiemetic medication administration ondansetron t hen haloperidol then promethazine). oxyCODONE IR tablet 10 mg (ROXICODONE) 10 mg, oral, Every 4 hours PRN, severe p ain or score 7-10 of 10, Starting on 02/16/21 at 0858 oxyCODONE IR tablet 5 mg (ROXICODONE) 5 mg, oral, Every 4 hours PRN, moderate pain or score 4-6 of 10, Starting on Sun02/16/21 at 0858 sodium chloride 0.9 % injection 10 mL 10 mL, intravenous, As needed, line care, Starting on Sun02/16/21 at 0832, Intraprocedure (RAD), Peripheral Intrave nous Catheter and Rapid Infusion Catheter, prior to blood sampling, post blood transfusion or pos t blood sampling sodium chloride 0.9 % injection 3 mL 3 mL, intravenous, As needed, line care, Starting on W ed 02/16/21 at 0832, Intraprocedure (RAD), Prior to and following infusion and between multiple consecutive infusions: sodium chloride 0.9 % injection sodium chloride 0.9 % injection 3 mL 3 mL, intravenous, Every 12 hours scheduled, First dos e on Sun02/16/21 at 0900, Intraprocedure (RAD), Peripheral Intrave nous Catheter and Rapid Infusion Catheter, when no infusion to maintain patency documented in this encounter Active and Recently Administered Medications Times are shown in CDT. Scheduled Medication Order 02/14/2021 02/15/2021 02/16/2021 sodium chloride 0.9 % injection 3 mL 0900 (Due) 3 mL, intravenous, Every 12 hours schedu led, First dose on Sun02/16/21 at 0900, Intraprocedure (RAD), Peripheral Intravenous Catheter and Rapid Infusion Catheter, when no infusion to maintain patency PRN Medication Order 02/14/2021 02/15/2021 02/16/2021 acetaminophen tablet 1,000 mg (TYLENOL) 1009 (Given - Provider: Monica Matthews R.N.) 1,000 mg, oral, Every 6 hours PRN, mild pain or score 1-3 of 10, Starting on Sun02/16/21 at 0858, (not to exceed 4 grams in 24 hours) fentaNYL injection 25 mcg (SUBLIMAZE) 0836 (Given - Provider: Juan Antonio Villa R.N.)0839 (Given - Provider: Juan Antonio Villa R.N.) 25 mcg, intravenous, Every 2 min PRN, se dation, or pain before and during sedation procedure, Starting on Sun02/16/21 at 0832, Intraprocedure (RAD), Administer over 1 minute immediately prior to the proc edure. May repeat every 2 minutes to a m aximum of 200 mcg, until pain score of 3 or less, or until the patient meets the pain comfort goal. Do not give if respiratory rate is less than 8 breaths/minute flumazeniL injection 0.2 mg (ROMAZICON) 0.2 mg, intravenous, Once as needed, rev ersal, Starting on Sun02/16/21 at 0832, For 1 dose, Intraprocedure (RAD), Administer once if patient has a RASS score of -4, -5 and has a respiratory rate less than 8 breaths/minute. lactated ringers 20 mL/hr, intravenous, Once as needed, t o keep vein open, Starting on Sun02/16/21 at 0832, For 1 dose, Intraprocedure (RAD) midazolam (PF) injection 0.25 mg (VERSED) 0.25 mg, intravenous, Every 2 min PRN, s edation, RASS -2, Starting on Sun02/16/21 at 0832, Intraprocedure (RAD), May repeat every 2 minutes to a maximum of 5 mg. Do not give if respiratory rate is less than 8 breaths/minute. midazolam (PF) injection 0.5 mg (VERSED) 0.5 mg, intravenous, Once as needed, sed ation, Starting on Sun02/16/21 at 0832, For 1 dose, Intraprocedure (RAD) midazolam (PF) injection 0.5 mg (VERSED) 0.5 mg, intravenous, Every 2 min PRN, se dation, RASS -1, Starting on Sun02/16/21 at 0832, Intraprocedure (RAD), May repeat every 2 minutes for a maximum of 5 mg. Do not give if respiratory rate is less than 8 breaths/minute. midazolam (PF) injection 1 mg (VERSED) 0836 (Given - Provider: Juan Antonio Villa R.N.) 1 mg, intravenous, Every 2 min PRN, shannan tion, RASS 0, Starting on Sun02/16/21 at 0832, Intraprocedure (RAD), May repeat every 2 minutes for a maximum of 5 mg. Do not give if respiratory rate is less than 8 breaths/minute. naloxone injection 0.2 mg (NARCAN) 0.2 mg, intravenous, As needed, respirat ory depression, Starting on Sun02/16/21 at 0858, For RASS Score -4 or less, respiratory rate of less than 8 breaths/min. Notify provider/service and rapid response team (if available at institution). naloxone injection 0.2 mg (NARCAN) 0.2 mg, intravenous, Once as needed, res piratory depression, Starting on Sun02/16/21 at 0832, For 1 dose, Intraprocedure (RAD), Administer once if patient has a RASS score of -4, -5 and has a respiratory rate less than 8 breaths/minute. ondansetron (PF) injection 4 mg (ZOFRAN) 4 mg, intravenous, Every 6 hours PRN, na usea, vomiting, Starting on Sun02/16/21 at 0858, For 48 hours, Reassess for nausea or vomiting after at least 10 minutes. If nausea or vomiting persists administer next ordered antiemetic medications (or angelica for antiemetic medication administration ondansetron then haloperidol then promethazine). oxyCODONE IR tablet 10 mg (ROXICODONE)(Linked Group 1) 10 mg, oral, Every 4 hours PRN, severe p ain or score 7-10 of 10, Starting on Sun02/16/21 at 0858 oxyCODONE IR tablet 5 mg (ROXICODONE)(Linked Group 1) 5 mg, oral, Every 4 hours PRN, moderate pain or score 4-6 of 10, Starting on Sun02/16/21 at 0858 sodium chloride 0.9 % injection 10 mL 10 mL, intravenous, As needed, line care , Starting on Sun02/16/21 at 0832, Intraprocedure (RAD), Peripheral Intravenous Catheter and Rapid Infusion Catheter, prior to blood sampling, post blood transfusion or post blood sampling sodium chloride 0.9 % injection 3 mL 3 mL, intravenous, As needed, line care, Starting on Sun02/16/21 at 0832, Intraprocedure (RAD), Prior to and following infusion and between multiple consecutive infusions: sodium chloride 0.9 % injection Linked Groups Order Group 1: oxyCODONE IR tablet 5 mg (ROXICODONE)Jump to med 5 mg, oral, Every 4 hours PRN, moderate pain or score 4-6 of 10, Starting on Sun02/16/21 at 0858 Or oxyCODONE IR tablet 10 mg (ROXICODONE)Jump to med 10 mg, oral, Every 4 hours PRN, severe p ain or score 7-10 of 10, Starting on Sun02/16/21 at 0858 documented in this encounter
--- OUTSIDE RECORDS SUMMARY | 2022-03-06 01:54 | XMS_ITS | Encounter Summary ---
:1975 Author Organization [facility] Address [address] [place] [address] Care Team Providers Name Role Phone Unavailable Primary Care Provider Unavailable Encounter Details Date Type Department Care Team Description 02/11/2021 Hospital Encounter Department of Denisha Oviedo Ovary Uncertain Behavior Bilateral; Laboratory E MTrent Peritoneal Carcinomatosis (HCC); Medicine and [address] [place] [address] Abnormal Computed Tomography Pelvis; [place], [place] [phone] [facility] [phone] [place] (Work) [address] [place] [address] [place], [place] (Fax) [phone] Social History Tobacco Use Types Packs/Day [...] or relatives? How often do you attend pentecostalism or 1 to 4 times per year 02/09 jew services? Do you belong to any clubs or Yes 02/26/2021 organizations such as pentecostalism groups, unions, fraternal or athletic groups, or [...] Appointment Laboratory Medicine Debbie Ivey M.D. [address] [place] [phone] 04/13/2022 Office Visit Oncology Walter Barnhart M.D., Ph.D. [address] [place] [address] documented as of this encounter Procedures Procedure Name Priority Date/Time Associated Diagnosis Comme nts ACTIVATED PARTIAL Routine 02/11/2021 9:12 Mass Adnexal Results for this THROMBOPLASTIN TIME AM CDT procedur e are in (APTT), P the results section. CBC WITHOUT Routine 02/11/2021 9:12 Tumor Ovary Uncertain Res ults for this DIFFERENTIAL, B AM CDT Behavior Bilater al procedure are in Peritoneal the results Carcinomatosis ( HCC) section. Abnormal Computed Tomography Pelvis TYPE AND SCREEN Routine 02/11/2021 9:12 Mass Adnexal Results f or this AM CDT procedure are i n the results section. CANCER AG 125 (CA Routine 02/11/2021 9:12 Tumor Ovary Uncertai n Results for this 125), S AM CDT Behavior Bilater al procedure are in Peritoneal the results Carcinomatosis ( HCC) section. Abnormal Computed Tomography Pelvis ALBUMIN, S/P Routine 02/11/2021 9:12 Tumor Ovary Uncertain Res ults for this AM CDT Behavior Bilater al procedure are in Peritoneal the results Carcinomatosis ( HCC) section. Abnormal Computed Tomography Pelvis BASIC METABOLIC PANEL, Routine 02/11/2021 9:12 Tumor Ovary Unc ertain Results for this S/P AM CDT Behavior Bilater al procedure are in Peritoneal the results Carcinomatosis ( HCC) section. Abnormal Computed Tomography Pelvis documented in this encounter Results APTT (Activated Partial Thromboplastin Time) (02/11/2021 9:12 AM CDT) P athologist Signature Activated 25 25 - 37 sec 02/11/2021 DTL Partial 9:55 AM CDT Thrombopl Time, P Specimen Anatomical Collection Method Collection Time Receive d Time (Source) Location / / Volume Laterality Blood (Blood, 02/11/2021 9:12 AM 02/12/20 9:33 Venous) CDT AM CDT Denisha Oviedo M.D. LAB BLOOD ADD-ON Performing Organization Address City/State/ZIP Code Phon e Number [facility] - 200 [place], [place] [address] [facility] [address] [facility] [address] [facility] Type and Screen (with reflex Antibody ID) (02/11/2021 9:12 AM CDT) Patholo gist Method Time Signature ABORh B Neg Not 02/11/2021 ETRM applicable 10:27 AM CDT Antibody Negative Negative 02/11/2021 ETRM Screen 10:34 AM CDT Type & Screen 04/11/2021 02/11/2021 ETRM Expiration 23:59 10:27 AM CDT Testing Alberto DEFAULT 02/11/2021 ETRM Location 9:33 AM CDT Specimen Anatomical Collection Method Collection Time Receive d Time (Source) Location / / Volume Laterality Blood (Blood, 02/11/2021 9:12 AM 02/12/20 9:33 Venous) CDT AM CDT Denisha Oviedo M.D. LAB BLOOD BANK TEST ORDERABL ES Performing Organization Address City/State/ZIP Code Phon e Number [facility] - [address] [place], [place] [address] [facility] [address] [facility] [address] (ABNORMAL) Basic Metabolic Panel (02/11/2021 9:12 AM CDT) P athologist Signature Potassium, S 5.4 (H) 3.6 - 5.2 02/11/2021 DTL mmol/L 10:18 AM CDT Sodium, S 136 135 - 145 02/11/2021 DTL mmol/L 10:18 AM CDT Chloride, S 102 98 - 107 02/11/2021 DTL mmol/L 10:18 AM CDT Bicarbonate, S 26 22 - 29 02/11/2021 DTL mmol/L 10:18 AM CDT Anion Gap 8 7 - 15 02/11/2021 DTL 10:18 AM CDT BUN (Blood Urea 16 6 - 21 02/11/2021 DTL Nitrogen), S mg/dL 10:18 AM CDT Creatinine 0.73 0.59 - 02/11/2021 DTL 1.04 mg/dL 10:18 AM CDT eGFR-Non >90 >=60 02/11/2021 DTL Black/ mL/min/BSA 10:18 AM CDT [place] Comment: ----ADDITIONAL INFORMATION---- Estimated GFR calculated using the 2009 CKD_EPI creatinine equation. eGFR-Black/ >90 >=60 mL/min/BSA 2020 10:18 AM CDT DTL Comment: ----ADDITIONAL INFORMATION---- Estimated GFR calculated using the 2009 CKD_EPI creatinine equation. Calcium, Total, S 9.1 8.6 - 10.0 mg/dL 02/11/2021 10:1 8 AM CDT DTL Glucose, S 89 70 - 140 mg/dL 02/11/2021 10:18 AM CDT DTL Specimen Anatomical Collection Method Collection Time Receive d Time (Source) Location / / Volume Laterality Blood (Blood, 02/11/2021 9:12 AM 02/12/20 9:50 Venous) CDT AM CDT Denisha Oviedo M.D. LAB BLOOD ADD-ON Performing Organization Address City/[facility] Code Phon e Number [facility] - 200 [place], [place] [address] [place] [address] [place] [address] CBC without Differential (02/11/2021 9:12 AM CDT) athologist Signature Hemoglobin 12.8 11.6 - 02/11/2021 DTL 15.0 g/dL 9:44 AM CDT Hematocrit 40.1 35.5 - 02/11/2021 DTL 44.9 % 9:44 AM CDT Erythrocytes 4.44 3.92 - 02/11/2021 DTL 5.13 9:44 AM CDT x10(12)/L MCV 90.3 78.2 - 02/11/2021 DTL 97.9 fL 9:44 AM CDT RBC Distrib Width 12.2 12.2 - 02/11/2021 DTL 16.1 % 9:44 AM CDT Platelet Count 314 157 - 371 02/11/2021 DTL x10(9)/L 9:44 AM CDT Leukocytes 6.0 3.4 - 9.6 02/11/2021 DTL x10(9)/L 9:44 AM CDT Specimen Anatomical Collection Method Collection Time Receive d Time (Source) Location / / Volume Laterality Blood (Blood, 02/11/2021 9:12 AM 02/12/20 9:33 Venous) CDT AM CDT Denisha Oviedo M.D. LAB BLOOD ADD-ON Performing Organization Address City/State/[facility] Phon e Number [facility] - 200 [place], [place] [address] [place] [address] [place] [address] Albumin (02/11/2021 9:12 AM CDT) athologist Signature Albumin, S 4.6 3.5 - 5.0 02/11/2021 DTL g/dL 10:18 AM CDT Specimen Anatomical Collection Method Collection Time Receive d Time (Source) Location / / Volume Laterality Blood (Blood, 02/11/2021 9:12 AM 02/12/20 9:50 Venous) CDT AM CDT Denisha Oviedo M.D. LAB BLOOD ADD-ON Performing Organization Address City/State/ZIP Code Phon e Number [facility] - [address] [place], [place] [address] [facility] [address] [facility] [address] (ABNORMAL) Cancer Antigen 125 (CA 125) (02/11/2021 9:12 AM CDT) athologist Signature Cancer Ag 125 2428 (H) <46 U/mL 02/11/2021 [facility] (CA 125), S 1:16 PM CDT Comment: ----ADDITIONAL INFORMATION---- The testing method is an electrochemilum inescence assay manufactured by [employer] and performed on the Michela system. Values obtained with different assay met hods or kits may be different and cannot be used inte rchangeably. Test results cannot be interpreted as ab solute evidence for the presence or absence of malignant disease. Specimen Anatomical Collection Method Collection Time Receive d Time (Source) Location / / Volume Laterality Blood (Blood, 02/11/2021 9:12 AM 02/12/20 Venous) CDT 12:33 PM CDT Denisha Oviedo M.D. LAB BLOOD ADD-ON Performing Organization Address City/[facility] Phon e Number [facility] [address] [place], [place] [address] [facility] [place] [address] Laboratory Medicine and Pathology [address] [place] documented in this encounter Visit Diagnoses Diagnosis Tumor Ovary Uncertain Behavior Bilateral Peritoneal Carcinomatosis (HCC) Abnormal Computed Tomography Pelvis Mass Adnexal documented in this encounter
--- OUTSIDE RECORDS SUMMARY | 2022-03-06 01:54 | XMS_ITS | Encounter Summary ---
:1975 Author Organization [facility] Address 200 [place] [address] Care Team Providers Name Role Phone Unavailable Primary Care Provider Unavailable Reason for Referral MRI/CAT/PET Scan (Routine) - Closed Specialty Diagnoses / Procedures Referred By Contact Refer red To Contact Radiology Diagnoses Mass Adnexal Denisha Oviedo M.D. [facility] Procedures CT Abdomen and/or Pelvis Biopsy 200 [place] [address] Referral ID Status Reason Start Date Expiration Date Visits Requ ested Visits Authorized [id number] Closed 02/11/2021 02/11/2022 1 1 Reason for Visit Appointment Request (Routine) - Closed Specialty Diagnoses / Procedures Referred By Contact Refer red To Contact Obstetrics and Diagnoses Cyst Ovary Complex Gynecology Referral ID Status Reason Start Date Expiration Date Visits Requ ested Visits Authorized [id number] Closed 02/07/2021 02/07/2022 1 1 Encounter Details Date Type Department Care Team Description 02/11/2021 Comprehensive Visit Department of Denisha Oviedo Adnexal (Primary Dx); Obstetrics and [place] Elevated Cancer Antigen 125; Gynecology in [address] [place] [address] Pain Pelvic Female; [place], [place] Pain Generaliz ed Abdominal; [place] [phone] Constipation; [address] [place] [address] Tenesmus Rectal; [place], [place] (Work) Fatigue; [phone] Anorexia Social History Tobacco Use Types Packs/Day Years [...] or relatives? How often do you attend anabaptism or 1 to 4 times per year 02/09 jehovah's witness services? Do you belong to any clubs or Yes 02/26/2021 organizations such as anabaptism groups, unions, fraternal or athletic groups, or [...] or slept in a mcc (including now)? Sex Assigned at Date Recorded Female 02/10/2021 8:20 AM CDT documented as of this encounter Last Filed Vital Signs Vital Sign Reading Time Taken Comments Blood Pressure - - Pulse - - Temperature - - Respiratory Rate - - Oxygen Saturation - - Inhaled Oxygen Concentration - - Weight 61.8 kg (136 lb 3.9 oz) 02/11/2021 7:58 AM CDT Height 169.3 cm (5' 6.65) 02/11/2021 7:58 AM CDT Body Mass Index 21.56 02/11/2021 7:58 AM CDT documented in this encounter Consult Notes Denisha Oviedo M.D. - 02/11/2021 8:00 AM CDT SUBJECTIVE \ CHIEF COMPLAINT REASON FOR VISIT Consult HISTORY OF PRESENT CONDITION Chief complaint: Likely ovarian cancer Ms. Yang is a 45 y.o., P3 who presents in consultation for an opinion regarding likely ovarian cancer. From pre-visit record review: This is a 45-year-old female. Pelvic ultrasound on 02/03/2021 showed enlargement of ovaries with complex solid and cystic masses both ovaries. CT on 01/29/21 showed large complex cystic and solid adnexal masses. MRI on 02/08/21 showed bilateral ovarian masses, suspicious for high-grade serous carcinoma.CA-125 was 1617. ?? 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 BMI: 21 PAST MEDICAL HISTORY: Chronic UTI ?? PAST SURGICAL HISTORY: Uterine ablation Bladder sling ?? MEDICATIONS: Prednisone Biotin Vitamin D Vitamin B12 Progesterone 100 mg daily ?? ALLERGIES: No known drug allergies ?? FAMILY HISTORY: Father bladder cancer. ? IMAGING/PATHOLOGY (outside reports scanned in): ?? 02/08/21 MRI PELVIS: IMPRESSION: 1. Bilateral ovarian masses, which do not contain intra voxel fat, into not demonstrate shading on T2 weighted imaging. 2. 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 Significant intratumoral vascularity is noted on T1 weighted imaging after gadolinium with fat suppression. 3. Carcinomatosis was suspected on the CT of the abdomen and pelvis of the same date. 4. Consider diagnostic paracentesis cytology evaluation. ?? 02/08/21 CT ABDOMEN/PELVIS: IMPRESSION: 1. Large complex cystic and solid adnexal masses by suspicious for ovarian malignancy. 2. Ascites with suspected tumor implants including along the liver surface, splenic surface of the right lower quadrant likely representing carcinomatosis. 3. Indeterminate right hepatic lesion could represent metastasis. Small indeterminate splenic foci are also noted. 4. Prominent retroperitoneal lymph nodes. ?? 02/03/21 PELVIC ULTRASOUND IMPRESSION: 1. Enlargement of the ovaries with complex solid and cystic masses with internal vascularity presentwithin both ovaries. Appearance is indeterminate and differential includes both malignant and benignpossibilities. Recommend consideration for MRI of the pelvis for further delineation of these ovarian structures. ? (Outside labs scanned in) DATE: 01/08/21 H.5 WBC: 5.1 PLT: 229 GL: 89 Cr: 0.7 Na: 134 K: 5.4 CA-126: 1617 From today's appointment: Patient has been having back pain for approximately six months and has been using ice and chiropractor treatments to address this. Then in December she had a sausage digit of her right pointer finger. She took steroids in December and early January for this. She has no history of autoimmune diseases. About a month ago, the patient began having difficulty with bowel movements, where she had pressure and pain when trying to pass her stool and he became very thin. She thinks she has had a couple of lb of weightloss. She has been eating less because she feels full faster. She denies any vomiting or nausea. No hematochezia, hematemesis, hematuria. 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 She has had reduced activity for approximately one week. The following portions of the patient's history were reviewed and updated as appropriate: allergies,current medications, family history, medical history, social history, surgical history and problem list. FAMILY HISTORY Breast, ovarian, colon, or uterine cancer-related family history is not on file. REVIEW OF SYSTEMS A comprehensive review of systems was negative except as noted in HPI. OBJECTIVE VITAL SIGNS Body mass index is 21.56 kg/m??. ECOG status: 0 Genetic testing: None PHYSICAL EXAMINATION General: Well appearing, no apparent distress, alert and oriented. Lymph: Neck symmetric without cervical or supraclavicular adenopathy or mass. Lungs: Normal respiratory rate, no accessory muscle use. Psych: Normal affect. abdomen: Mildly distended, soft, moderately tender to palpation, midline abdominal mass, moderate ascites, no hepatosplenomegaly. Skin: Warm, dry, no rashes or lesions. Extremities: Bilateral lower extremities without edema or tenderness. Genitourinary ?? Pelvic Examination including: a. External genitalia are normal in appearance. No lesions noted. b. Urethral meatus is normal size, location, and appearance. c. Urethra is negative. d. Bladder is nontender. No masses noted. e. Vagina has normal mucosa with physiologic discharge. No lesions noted. f. Uterus normal size, fixed and cervix deviated to the right secondary to the mass.. g. Bilateral adnexa enlarged, fixed, with nodularity. H. Rectovaginal examination reveals impingement of the rectum at 5 cm from the anal verge. Pelvic mass is entirely fixed. GYNSURG Exam Amb DIAGNOSTICS No results found for: HGB, WBC, PLT, GLUCOSE, CREATININE, CA125, ALBUMIN, HGBA1C PATHOLOGY, LAST 30 DAYS No results found for this or any previous visit (from the past 720 hour(s)). IMAGING RESULTS, LAST 7 DAYS - IMPRESSION ONLY No results found. ASSESSMENT / PLAN Visit diagnosis: #1 Mass Adnexal #2 Elevated Cancer Antigen 125 #3 Pain Pelvic Female #4 Pain Generalized Abdominal #5 Constipation #6 Tenesmus Rectal #7 Fatigue #8 Anorexia I discussed with the patient the rationale for primary debulking surgery versus neoadjuvant chemotherapy and interval debulking surgery for ovarian/fallopian tube/primary peritoneal cancers. We use many factors to determine the best course of action for patients, including likely resectability of all disease, performance status, nutritional status, and age. Women with certain factors have a very highrisk for significant surgical morbidity and even mortality, and are thus not good candidates for primary debulking surgery. Given this patient's extensive peritoneal carcinomatosis, liver lesion, splenic lesions, and fixed pelvis, I recommend treatment with neoadjuvant chemotherapy with reassessment fo r interval debulking surgery after three cycles of chemotherapy. We briefly discussed the likely course of treatment, and that I will reschedule an appointment with me in approximately 10-11 weeks to reassess for surgical resectability. I also discussed this patient's case with Dr. Mosley. He will plan to be available at the time of her surgery in a couple of months to resect the liver lesion. We have scheduled the patient for an interventional radiology guided biopsy. We will also get a CT scan of the chest and a serum albumin today. Patient was understandably very upset. I encouraged her to call us if she feels she needs any emotional support. The patient would like to get her chemotherapy here. We have put in an order for Medical Oncology. We will make sure we expedite this for her. All questions were answered. PATIENT EDUCATION Ready to learn, no apparent learning barriers were identified; learning preferences include listening. Explained diagnosis and treatment plan; patient expressed understanding of the content. BILLING I personally spent over half of a total 60 minutes in counseling and discussion with the patient andcoordination of care as described above. Denisha Oviedo M.D. documented in this encounter Plan of Treatment Upcoming Encounters Date Type Specialty Care Team Description 04/11/2022 Clinical Communication Admitting/Central Scheduling 04/13/2022 Appointment Laboratory Medicine Debbie Ivey M.D. [address] [place] [phone] 04/13/2022 Office Visit Oncology Walter Barnhart M.D., Ph.D. [address] [place] [phone] documented as of this encounter Results CT Abdomen and/or Pelvis [...] mass biopsy. Pat hology pending. EP Denisha Oviedo M.D. IMG CT PROCEDURES APTT (Activated Partial Thromboplastin Time) (02/11/2021 9:12 AM CDT) P athologist Signature Activated 25 25 - 37 sec 02/11/2021 DTL Partial 9:55 AM CDT Thrombopl Time, P Specimen Anatomical Collection Method Collection Time Receive d Time (Source) Location / / Volume Laterality Blood (Blood, 02/11/2021 9:12 AM 02/12/20 9:33 Venous) CDT AM CDT Denisha Oviedo M.D. LAB BLOOD ADD-ON Performing Organization Address City/[facility] Phon e Number [facility] - [address] [place] [address] [address] [facility] [place] [address] Laboratories-[facility] [address] Type and Screen (with reflex Antibody ID) (02/11/2021 9:12 AM CDT) [facility] gist Method Time Signature ABORh B [...] BANK TEST ORDERABL ES Performing Organization Address City/[facility] Phon e Number [facility] - [address] [place], [place] [address] [facility] [place] [address] [facility] [address] documented in this encounter Visit Diagnoses Diagnosis Mass Adnexal - Primary Elevated Cancer Antigen 125 Pain Pelvic Female Pain Generalized Abdominal Constipation Tenesmus Rectal Fatigue Anorexia Mass Adnexal documented in this encounter
--- OUTSIDE RECORDS SUMMARY | 2022-03-06 01:54 | XMS_ITS | Encounter Summary ---
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 [facility] Procedures CT Chest without IV Contrast [address] [place] [phone] Referral ID Status Reason Start Date Expiration Date Visits Requ ested Visits Authorized [id number] Closed 02/08/2021 02/08/2022 1 1 Encounter Details Date Type Department Care Team Description 02/08/2021 Orders Only Department of Denisha Oviedo Tumor Ovar y Uncertain Behavior Bilateral (Primary Dx); Obstetrics and [place] Peritoneal Carcinomatosis (HCC); Gynecology in [address] [place] [address] Abnormal Computed Tomography Pelvis [place], [place] [address] [place] [phone] [place], [place] [phone] (Work) [phone] Social History Tobacco Use Types Packs/Day Years [...] 1 to 4 times per year 02/09 sabianist services? Do you belong to any clubs [...] or slept in a snf (including now)? Sex Assigned at Date Recorded Female 02/10/2021 8:20 AM CDT documented as of this encounter Plan of Treatment Upcoming Encounters Date Type Specialty Care Team Description 04/11/2022 Clinical Communication Admitting/Central Scheduling 04/13/2022 Appointment Laboratory Medicine Debbie Ivey M.D. [address] [place] [phone] 04/13/2022 Office Visit Oncology Walter Barnhart M.D., Ph.D. [address] [place] [phone] documented as of this encounter Results CT Chest without IV Contrast (02/11/2021 9:29 AM CDT) Anatomical Region Laterality Modality Chest, Thoracic RST LOS, Thoracic ARZ N/A Co mputed Tomography, Computed LOS, Thoracic FLA LOS Tomography Specimen (Source) Anatomical Collection Method Collection Time Re ceived Time Location / / Volume Laterality 02/11/2021 10:41 AM CDT Impressions 02/11/2021 10:56 AM CDT 1. Scattered bilateral indeterminant noncalcified solid pulmonary micronodules (sub-[address] chest surveillance advise d to exclude metastatic disease. 2. Unchanged nonspecific nonenlarged (7 mm short axis) noncalcified left cardiophrenic lymph node. 3. Upper abdomen is suboptimally evaluat ed in the absence of intravenous contrast, however, no significant change . Narrative 02/11/2021 10:56 AM CDT EXAM: CT CHEST WITHOUT IV CONTRAST COMPARISON: No prior CT chest is availab le for direct comparison at this time. CT abdomen and pelvis with IV contrast f rom outside institution dated 02/08/2021. FINDINGS: Indeterminant noncalcified solid pulmona ry micronodule (sub-3 mm) in the peripheral right lower lobe anterior bas al segment (series 3, image 336). Scattered noncalcified solid pulmonary m icronodules along right minor (series 3, image 312), right major (series 3, image 196), and left major (series 3, images 222 and 405) fissures may be benign anaid -fissural lymph nodes but are indeterminant. Diffusely calcified solid pulmonary micronodule in the right middle lobe lateral segment (series 3, i mage 440) should be a benign calcified pulmonary granuloma. No pleural nodule, effusion, or pneumoth orax. Trace simple dependent pericardial effus ion is likely physiologic. No lymphadenopathy by size criteria. Unc hanged nonspecific 7 mm short axis noncalcified left cardiophrenic lymph no de (series 3, image 522). Minimal residual normal thymus/thymic hyperplasi a. No suspicious osseous focus. Mild degene rative changes of the skeleton, including small focus of calcified inter vertebral body disc at the L1/L2 level. Upper abdomen is suboptimally evaluated in the absence of intravenous contrast, however, no significant change in ill-de fined hepatic hypodensities, small volume upper abdominal ascites, and mild peritoneal/omental soft tissue stranding in the left upper abdominal qu adrant. Procedure Note Phyllis Olmedo M.D. - 02/11/2021Formatt ing of this note might be different from the original. EXAM: CT CHEST WITHOUT IV CONTRAST COMPARISON: No prior CT chest is availab le for direct comparison at this time. CT abdomen and pelvis with IV contrast f rom outside institution dated 02/08/2021. FINDINGS: Indeterminant noncalcified solid pulmona ry micronodule (sub-3 mm) in the peripheral right lower lobe anterior bas al segment (series 3, image 336). Scattered noncalcified solid pulmonary m icronodules along right minor (series 3, image 312), right major (series 3, image 196), and left major (series 3, images 222 and 405) fissures may be benign anaid -fissural lymph nodes but are indeterminant. Diffusely calcified solid pulmonary micronodule in the right middle lobe lateral segment (series 3, i mage 440) should be a benign calcified pulmonary granuloma. No pleural nodule, effusion, or pneumoth orax. Trace simple dependent pericardial effus ion is likely physiologic. No lymphadenopathy by size criteria. Unc hanged nonspecific 7 mm short axis noncalcified left cardiophrenic lymph no de (series 3, image 522). Minimal residual normal thymus/thymic hyperplasi a. No suspicious osseous focus. Mild degene rative changes of the skeleton, including small focus of calcified inter vertebral body disc at the L1/L2 level. Upper abdomen is suboptimally evaluated in the absence of intravenous contrast, however, no significant change in ill-de fined hepatic hypodensities, small volume upper abdominal ascites, and mild peritoneal/omental soft tissue stranding in the left upper abdominal qu adrant. IMPRESSION: 1. Scattered bilateral indeterminant non calcified solid pulmonary micronodules (sub-3 mm). [address] chest surveillance advise d to exclude metastatic disease. 2. Unchanged nonspecific nonenlarged (7 mm short axis) noncalcified left cardiophrenic lymph node. 3. Upper abdomen is suboptimally evaluat ed in the absence of intravenous contrast, however, no significant change . Denisha DONNELLY CT PROCEDURES (ABNORMAL) Basic Metabolic Panel (02/11/2021 9:12 AM [...] 02/11/2021 DTL Black/ mL/min/BSA 10:18 AM CDT [place] Comment: ----ADDITIONAL INFORMATION---- Estimated GFR calculated using [...] Organization Address City/State/ZIP Code Phon e Number [facility] - [address] [place] [address] [facility] [place] [address] Laboratories-[facility] 200 [facility] CBC without Differential (02/11/2021 9:12 AM CDT) P athologist Signature Hemoglobin 12.8 11.6 - 02/11/2021 [...] M.D. LAB BLOOD ADD-ON Performing Organization Address City/[facility] Phon e Number [facility] - 200 [place], [place] [address] [place] [address] Laboratories-[address] Albumin (02/11/2021 9:12 AM CDT) athologist Signature Albumin, S 4.6 3.5 - 5.0 02/11/2021 DTL g/dL 10:18 AM CDT Specimen Anatomical Collection Method Collection Time Receive d Time (Source) Location / / Volume Laterality Blood (Blood, 02/11/2021 9:12 AM 02/12/20 9:50 Venous) CDT AM CDT Denisha Oviedo M.D. LAB BLOOD ADD-ON Performing Organization Address City/[facility] Phon e Number [facility] - 200 [place] [address] [place] [address] (ABNORMAL) Cancer Antigen 125 (CA 125) (02/11/2021 9:12 AM CDT) athologist Signature Cancer Ag 125 2428 (H) <46 U/mL 02/11/2021 SDSC (CA 125), S 1:16 PM CDT Comment: [...] Organization Address City/State/ZIP Code Phon e Number [facility] [address] [place] [address] [facility] [place] [address] Laboratory Medicine and Pathology [address] 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
--- OUTSIDE RECORDS SUMMARY | 2022-03-06 01:54 | XMS_ITS | Encounter Summary ---
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 [address] [place] [phone] Referral ID Status Reason Start Date Expiration Date Visits Requ ested Visits Authorized [id number] Closed 02/17/2021 03/19/2021 1 1 Outpatient (Routine) Specialty Diagnoses / Procedures Referred By Contact Vandana jones To Contact Oncology Walter Barnhart M. D., Ph.D. [address] [phone] Referral ID Status Reason Start Date Expiration Date Visits Requ ested Visits Authorized Outpatient (Routine) Specialty Diagnoses / Procedures Referred By Contact Refer red To Contact Oncology Walter Barnhart M. D., Ph.D. [address] [phone] Referral ID Status Reason Start Date Expiration Date Visits Requ ested Visits Authorized Specialty Diagnoses / Procedures Referred By Contact Refer red To Contact Walter Barnhart M. D., Ph.D. 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 Neutropenia Drug Induced (HCC) [address] [phone] Social History Tobacco Use Types Packs/Day Years [...] or relatives? How often do you attend yazidi or 1 to 4 times per year 02/09 yarsani services? Do you belong to any clubs or Yes 02/26/2021 organizations such as yazidi groups, unions, fraternal or athletic groups, or [...] Appointment Laboratory Medicine Debbie Ivey M.D. [address] [place] [phone] 04/13/2022 Office Visit Oncology Walter Barnhart M.D., Ph.D. 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 eGFR Non-Black/ >90 >=60 mL/min/BSA 05/02/2021 10:47 AM IMPROVEMENT LEADER NPRG Comment: ----ADDITIONAL INFORMATION---- Estimated GFR calculated using the 2009 CKD_EPI creatinine equation. Specimen Anatomical Collection Method Collection Time Receive d Time (Source) Location / / Volume Laterality Blood (Blood, 05/02/2021 10:22 05/02/2021 Venous) AM IMPROVEMENT LEADER 10:27 AM IMPROVEMENT LEADER Walter Barnhart M.D., Ph.D. LAB BLOOD ADD-ON Performing Organization Address City/[facility] Phon e Number [place] [address] [place] [facility] NPRG [address] (ABNORMAL) CBC, Chemotherapy, No Alerts (05/02/2021 10:22 AM IMPROVEMENT LEADER) Analysis Performed At Patho logist Time Signature Hemoglobin 11.2 (L) 11.6 - 05/02/2021 NPR[facility] 15.0 g/dL 10:32 AM IMPROVEMENT LEADER Platelet Count 233 157 - 371 05/02/2021 NPRG x10(9)/L 10:32 AM IMPROVEMENT LEADER Leukocytes 4.1 3.4 - 9.6 05/02/2021 NPRG x10(9)/L 10:32 AM IMPROVEMENT LEADER Neutrophils 2.59 1.56 - 05/02/2021 NPRG 6.45 10:32 AM IMPROVEMENT LEADER x10(9)/L Specimen Anatomical Collection Method Collection Time Receive d Time (Source) Location / / Volume Laterality Blood (Blood, 05/02/2021 10:22 05/02/2021 Venous) AM IMPROVEMENT LEADER 10:27 AM IMPROVEMENT LEADER Walter Barnhart M.D., Ph.D. LAB BLOOD ADD-ON Performing Organization Address City/State/[facility] Phon e Number [place] [address] [place] [facility]G [address] Bilirubin, Total (05/02/2021 10:22 AM IMPROVEMENT LEADER) athologist Signature Bilirubin, 0.4 <=1.2 mg/dL 05/02/2021 NPRG Total, P 10:47 AM IMPROVEMENT LEADER Specimen Anatomical Collection Method Collection Time Receive d Time (Source) Location / / Volume Laterality Blood (Blood, 05/02/2021 10:22 05/02/2021 Venous) AM IMPROVEMENT LEADER 10:27 AM IMPROVEMENT LEADER Walter Barnhart M.D., Ph.D. LAB BLOOD ADD-ON Performing Organization Address City/[facility] Phon e Number [address] LAB NPRG [address] AST (Aspartate Aminotransferase) (05/02/2021 10:22 AM IMPROVEMENT LEADER) [facility] gist Method Time Signature Aspartate 23 8 - 43 05/02/2021 NPRG Aminotransferase U/L 10:47 AM IMPROVEMENT LEADER (AST), Specimen Anatomical Collection Method Collection Time Receive d Time (Source) Location / / Volume Laterality Blood (Blood, 05/02/2021 10:22 05/02/2021 Venous) AM IMPROVEMENT LEADER 10:27 AM IMPROVEMENT LEADER Walter Barnhart M.D., Ph.D. LAB BLOOD ADD-ON Performing Organization Address City/[facility] Phon e Number [address] LAB NPRG [place] [phone] [address] (ABNORMAL) Cancer Antigen 125 (CA 125) (05/02/2021 10:22 AM IMPROVEMENT LEADER) athologist Signature Cancer Ag 125 65 (H) <46 U/mL 05/02/2021 AUST (CA 125), S 10:36 PM IMPROVEMENT LEADER Comment: Biotin has been identified by the daisy wall as a potential interfering substance. ??Higher concentr ations of biotin may be found in multivitamins, hair/nail supple ments, and workout supplements. ??If the result does not ma [facility] clinical observations, repeat testing after patient [...] Blood (Blood, 05/02/2021 10:22 05/02/2021 Venous) AM IMPROVEMENT LEADER 10:04 PM IMPROVEMENT LEADER Walter Barnhart M.D., Ph.D. LAB BLOOD ADD-ON Performing Organization Address City/State/[facility] Code Phon e Number [facility]- [address] [place] [address] [facility] [place] [address] [facility] [address] Creatinine with Estimated GFR (04/06/2021 9:14 AM CDT) P athologist Signature Creatinine 0.65 0.59 - 04/06/2021 NPRG 1.04 mg/dL 9:46 AM CDT eGFR-Black/Afric >90 >=60 04/06/2021 NPRG an Israeli mL/min/BSA 9:46 AM CDT Comment: ----ADDITIONAL INFORMATION---- [...] Organization Address City/State/ZIP Code Phon e Number [facility]- [address] [place], [place] [address] [place] [address] [facility] [address] (ABNORMAL) CBC, Chemotherapy, [...] Ph.D. LAB BLOOD ADD-ON Performing Organization Address City/[facility] Phon e Number [address] Bilirubin, Total (04/06/2021 9:14 AM CDT) P athologist Signature Bilirubin, 0.7 <=1.2 mg/dL 04/06/2021 NPRG Total, P 9:46 AM CDT Specimen Anatomical Collection Method Collection Time Receive d Time (Source) Location / / Volume Laterality Blood (Blood, 04/06/2021 9:14 AM 04/06/20 9:17 Venous) CDT AM CDT Walter Barnhart M.D., Ph.D. LAB BLOOD ADD-ON Performing Organization Address City/[facility] Phon e Number [place] [address] [address] [place] [address] [place] [facility] [address] AST (Aspartate Aminotransferase) (04/06/2021 9:14 AM CDT) [...] Ph.D. LAB BLOOD ADD-ON Performing Organization Address City/[facility]/ZIP Code Phon e Number [facility]- [address] [place], [place] [address] [place] [facility] NPRG [facility] [place] [address] [facility] [address] (ABNORMAL) Cancer Antigen [...] supplements. ??If the result does not ma [facility] clinical observations, repeat testing after patient [...] Ph.D. LAB BLOOD ADD-ON Performing Organization Address City/[facility]/ZIP Code Phon e Number [facility]- [address] [place] [address] [facility] [place] [address] [facility] [address] Creatinine with Estimated GFR (03/14/2021 9:47 AM CDT) athologist Signature Creatinine 0.67 0.59 - 03/14/2021 NPRG 1.04 mg/dL 10:10 AM CDT eGFR-Black/Afric >90 >=60 03/14/2021 NPRG an Israeli mL/min/BSA 10:10 AM CDT Comment: ----ADDITIONAL INFORMATION---- [...] Organization Address City/State/ZIP Code Phon e Number [facility]- [address] [place], [place] [address] [place] [address] [facility] [address] [place] CBC, Chemotherapy, No Alerts (03/14/2021 9:47 AM [...] Organization Address City/State/ZIP Code Phon e Number [place] [address] [address] [place], [place] [address] [place] [address] Bilirubin, Total (03/14/2021 9:47 AM CDT) P athologist Signature Bilirubin, 0.5 <=1.2 mg/dL 03/14/2021 NPRG Total, P 10:10 AM CDT Specimen Anatomical Collection Method Collection Time Receive d Time (Source) Location / / Volume Laterality Blood (Blood, 03/14/2021 9:47 AM 03/14/20 9:51 Venous) CDT AM CDT Walter Barnhart M.D., Ph.D. LAB BLOOD ADD-ON Performing Organization Address City/State/ZIP Code Phon e Number [place] [address] [place], [place] [address] [place] [facility] NPRG [place] [phone] [address] AST (Aspartate Aminotransferase) (03/14/2021 9:47 AM [...] Organization Address City/State/ZIP Code Phon e Number [place] [address] [address] [place], [place] [address] [place] [facility] [place] [phone] [address] (ABNORMAL) Cancer Antigen 125 (CA 125) (03/14/2021 9:47 AM CDT) P athologist Signature Cancer Ag 125 1168 (H) [...] is an electrochemilum inescence assay manufactured by [employer] and performed on the Michela [...] Organization Address City/State/ZIP Code Phon e Number [facility]- [address] [place], [place] [id number] [place] [address] LAB AUST [facility] - [address] Abdomen Pelvis with IV Contrast (02/23/2021 [...] x 7.1 x 6.2 cm on the (120; ). Each mass is grossly unchanged in [...] Walter Barnhart M.D., Ph.D. IMG CT PROCEDURES Creatinine with Estimated GFR (02/23/2021 10:08 AM CDT) athologist Signature Creatinine 0.71 0.59 - 02/23/2021 [facility] 1.04 mg/dL 10:43 AM CDT eGFR-Black/Afric >90 >=60 02/23/2021 METH an Israeli mL/min/BSA 10:43 AM CDT Comment: ----ADDITIONAL INFORMATION---- Estimated GFR calculated using the 2009 CKD_EPI creatinine equation. eGFR Non-Black/ >90 >=60 mL/min/BSA 02/23/2021 10:43 AM CDT METH Comment: ----ADDITIONAL INFORMATION---- Estimated GFR calculated using the 2009 CKD_EPI creatinine equation. Specimen Anatomical Collection Method Collection Time Receive d Time (Source) Location / / Volume Laterality Blood (Blood, 02/23/2021 10:08 02/23/2021 Venous) AM CDT 10:13 AM CDT Walter Barnhart M.D., Ph.D. LAB BLOOD ADD-ON Performing Organization Address City/State/ZIP Code Phon e Number [facility] - [address] [place], [place] [address] [facility] [place] [address] Laboratories-[facility] [address] CBC, Chemotherapy, No Alerts (02/23/2021 10:08 AM CDT) athologist Signature Hemoglobin 12.9 11.6 - 15.0 02/23/2021 METH g/dL 10:25 AM CDT Platelet Count 323 157 - 371 02/23/2021 [facility] x10(9)/L 10:25 AM CDT Leukocytes 7.3 3.4 - 9.6 02/23/2021 [facility] x10(9)/L 10:25 AM CDT Neutrophils 5.14 1.56 - 6.45 02/23/2021 [facility] x10(9)/L 10:25 AM CDT Specimen Anatomical Collection Method Collection Time Receive d Time (Source) Location / / Volume Laterality Blood (Blood, 02/23/2021 10:08 02/23/2021 Venous) AM CDT 10:13 AM CDT Walter Barnhart M.D., Ph.D. LAB BLOOD ADD-ON Performing Organization Address City/State/ZIP Code Phon e Number [facility] - [address] [place], [place] [address] [place] [address] [facility] [address] Bilirubin, Total (02/23/2021 10:08 AM CDT) P athologist Signature Bilirubin, 0.3 <=1.2 mg/dL 02/23/2021 M[facility] Total, P 10:43 AM CDT Specimen Anatomical Collection Method Collection Time Receive d Time (Source) Location / / Volume Laterality Blood (Blood, 02/23/2021 10:08 02/23/2021 Venous) AM CDT 10:13 AM CDT Walter Barnhart M.D., Ph.D. LAB BLOOD ADD-ON Performing Organization Address City/State/[facility] Code Phon e Number [facility] - [address] [place], [place] [address] [place] [address] [facility] [address] AST (Aspartate Aminotransferase) (02/23/2021 10:08 AM CDT) Patholo gist Method Time Signature Aspartate 40 8 - 43 02/23/2021 M[facility] Aminotransferase U/L 10:43 AM CDT (AST), P Specimen Anatomical Collection Method Collection Time Receive d Time (Source) Location / / Volume Laterality Blood (Blood, 02/23/2021 10:08 02/23/2021 Venous) AM CDT 10:13 AM CDT Walter Barnhart M.D., Ph.D. LAB BLOOD ADD-ON Performing Organization Address City/State/ZIP Code Phon e Number 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
--- OUTSIDE RECORDS SUMMARY | 2022-03-06 01:54 | XMS_ITS | Encounter Summary ---
:1975 Author Organization [facility] Address [address] [place] [address] Care Team Providers Name Role Phone Unavailable Primary Care Provider Unavailable Reason for Visit Reason Comments Communication Encounter Details Date Type Department Care Team Description 02/07/2021 Clinical Communication [facility] [place] mmunication Obstetrics and Provider Gynecology in [place], [place] [address] [place] [address] Social History Tobacco Use Types Packs/Day Years [...] 1 to 4 times per year 02/09 yazidism services? Do you belong to any clubs [...] or slept in a intermediate (including now)? Sex Assigned at Date Recorded Female 02/10/2021 8:20 AM CDT documented as of this encounter Miscellaneous Notes Telephone Encounter - Christy Abbott - 02/07/2021 6:02 PM CDT US images here. Patient having MRI 02/08 - will wait for those images and then ask GE to review. Telephone Encounter - Christy Abbott - 02/07/2021 2:37 PM CDT I have called [facility] Records to request medical records and recent imaging. I had to leave a VM. Telephone Encounter - Ginette Dennis - 02/07/2021 9:50 AM CDT Pt called in to get care established with our dept. She said she was advised from the [facility] to set up care with us JANNETTE and that we prioritize requests coming through due to severity. 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 I scheduled her into our 1st available which is on 02/[address] Oviedo. Pt is very fearful that this is too long to wait for an appt. She states she can't sleep at night because of the pain from the tumors and is very worried about her ca125 level. Pt is requesting if there's anything we can do to get her in sooner. She is sending OSM and imaging from [facility]. She had a recent US and will have MRI tomorrow. Are we able to review once records are received and advise if needing to get in sooner? Pt is very worried and tearful on the phone. Thank you. documented in this encounter Plan of Treatment Upcoming Encounters Date Type Specialty Care Team Description 04/11/2022 Clinical Communication Admitting/Central Scheduling 04/13/2022 Appointment Laboratory Medicine Debbie Ivey M.D. [address] [place] [phone] 04/13/2022 Office Visit Oncology Walter Barnhart M.D., Ph.D. [address] [place] [phone] documented as of this encounter Visit Diagnoses Not on filedocumented in this encounter
--- OUTSIDE RECORDS SUMMARY | 2022-03-06 01:54 | XMS_ITS | Encounter Summary ---
:1975 Author Organization [facility] Address [address] [place] [address] Care Team Providers Name Role Phone Unavailable Primary Care Provider Unavailable Encounter Details Date Type Department Care Team Description 02/08/2021 [facility] Tamanna Cheng M [facility] M.D. Of Ovary Laterality [address] [facility] [address] [facility] Unknown (HCC) [place] [address] [place], [place] (Primary Dx) [phone] [id number] Social History Tobacco Use Types Packs/Day Years [...] or slept in a prison (including now)? Sex Assigned at Date Recorded Female 02/10/2021 8:20 AM CDT documented as of this encounter Plan of Treatment Upcoming Encounters Date Type Specialty Care Team Description 04/11/2022 Clinical Communication Admitting/Central Scheduling 04/13/2022 Appointment Laboratory Medicine Debbie Ivey M.D. [address] [place] [phone] 04/13/2022 Office Visit Oncology Walter Barnhart M.D., Ph.D. 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
--- OUTSIDE RECORDS SUMMARY | 2022-03-06 01:54 | XMS_ITS | Encounter Summary ---
:1975 Author Organization [facility] Address [address] [place] [address] Care Team Providers Name Role Phone Unavailable Primary Care Provider Unavailable Reason for Referral MRI/CAT/PET Scan (Routine) - Closed Specialty Diagnoses / Procedures Referred By Contact Refer red To Contact Radiology Diagnoses Tumor Ovary Uncertain Behavior Bilateral Peritoneal Carcinomatosis (HCC) Abnormal Computed Tomography Pelvis Denisha Oviedo M.D. [facility] Procedures CT Chest without IV Contrast [address] [place] [phone] Referral ID Status Reason Start Date Expiration Date Visits Requ ested Visits Authorized [id number] Closed 02/08/2021 02/08/2022 1 1 Reason for Visit MRI/CAT/PET Scan (Routine) - Closed Specialty Diagnoses / Procedures Referred By Contact Refer red To Contact Radiology Diagnoses Tumor Ovary Uncertain Behavior Bilateral Peritoneal Carcinomatosis (HCC) Abnormal Computed Tomography Pelvis Denisha Oviedo M.D. [facility] Procedures CT Chest without IV Contrast [address] [place] [address] [phone] Referral ID Status Reason Start Date Expiration Date Visits Requ ested Visits Authorized [id number] Closed 02/08/2021 02/08/2022 1 1 Encounter Details Date Type Department Care Team Description 02/11/2021 Hospital Encounter Department of Denisha Oviedo Ovary Uncertain Behavior Bilateral; Radiology, Jeramy Box M.D. Peritoneal Carcinomatosis (HCC); Building, in [address] Abnormal Computed Tomography Pelvis [facility] [phone] [phone] [place], [place] (Work) [phone] [phone] Social History Tobacco Use Types Packs/Day Years [...] or relatives? How often do you attend denominational or 1 to 4 times per year 02/09 spiritism services? Do you belong to any clubs or Yes 02/26/2021 organizations such as denominational groups, unions, fraternal or athletic groups, or [...] slept in a senior living (including now)? Sex Assigned at Date Recorded [...] Laboratory Medicine Debbie Ivey M.D. [address] [place] [address] 04/13/2022 Office Visit Oncology Walter Barnhart M.D., Ph.D. [address] [place] [address] documented as of this encounter Procedures Procedure Name Priority Date/Time Associated Diagnosis Comme nts CT CHEST WITHOUT RAD - Routine 02/11/2021 9:29 Tumor Ovary Uncertai n Results for IV CONTRAST (most inpatients AM CDT Behavior Bilate ral this procedure and all Peritoneal are in the outpatients) Carcinomatosis ( HCC) results Abnormal Computed section. Tomography Pelvis documented in this encounter Results CT Chest without IV [...] significant change . Denisha DONNELLY CT PROCEDURES documented in this encounter Visit Diagnoses Diagnosis Tumor Ovary Uncertain Behavior Bilateral Peritoneal Carcinomatosis (HCC) Abnormal Computed Tomography Pelvis documented in this encounter
--- OUTSIDE RECORDS SUMMARY | 2022-03-06 01:54 | XMS_ITS ---
:1975 Author Name [facility] Care Team Providers Name Role Phone Abdelrahman Timbo Unavailable Unavailable PROBLEMS Type Condition ICD9-CM Code [id number] Onset Condition SNOMED Code Code Dates Status Problem Perimenopause N95.1 Active Problem Perimenopausal N95.1 Active Problem Perimenopausal N95.1 Active 56587 3006 vasomotor symptoms Problem Binge eating F50.81 Active 1990230 05 disorder ALLERGIES No Known Allergies ENCOUNTERS Encounter Location Date Diagnosis [facility] [address] Dec, [place], [place] [phone] [facility] [place] [address] [facility] Dec, [address] [address] [place] [address] [employer] [facility] Jun, [address] [address] [facility] [address] Feb, [place], [place] [phone] [facility] [address] Dec, [place], [place] [phone] [facility] [address] Jun, [place], [place] [phone] [facility] [address] Jun, Perim enopausal vasomotor [facility] 120 symptoms N95.1 a nd [place], [place] Encounter for sc reening [address] for lipid disord er Z13.220 [facility] [address] Jun, Perim enopausal N95.1 and [place] [address] Hot flashes R23. 2 [place] [address] [facility] [address] Jun, Perime nopause N95.1 [place], [place] [phone] [facility] [address] Apr, [place] [address] [place] [address] [facility] [address] October, [place], [place] [phone] [facility] [address] Apr, [place] [phone] [facility] [address] Mar, [place] [phone] [facility] [address] Mar, [place] [phone] [facility] [address] Mar, [place], [place] [phone] [facility] [address] Mar, A nnual physical exam for Women-[place] [address] Z00.00 ; Cervica l cancer [place], [place] screening Z12.4 ; Breast [address] cancer screening by mammogram Z12.31 ; Perimenopause N9 5.1 and Binge eating dis order F50.81 [facility] [address] Jul, Perim enopausal vasomotor [place] [address] symptoms N95.1 a nd Breast [place], [place] cancer screening Z12.31 [phone] IMMUNIZATIONS No Known Immunizations SOCIAL HISTORY Qualifiers Date Never Smoker REASON FOR REFERRAL FUNCTIONAL STATUS PLAN OF CARE Activity Details Pending Test MAMMOGRAM, SCREENING Pending Test MAMMOGRAM, SCREENING VITAL SIGNS Height 66 in 2019-06-26 Weight 132.6 lbs 2019-06-26 BMI 21.40 kg/m2 2019-06-26 Blood pressure systolic 110 mm Hg 2019-06-26 Blood pressure diastolic 64 mm Hg 2019-06-26 MEDICATIONS Medication Instructions Dosage Frequency Start End Duration Statu s Date Date Biotin 5 MG Orally Once a 1 capsule 24h 30 day(s) Ac tive day Progesterone Orally twice 1 Jul, 8 days Active Micronized 100 daily 2018 MG Vitamin B12 100 Active MCG Prometrium 100 Orally twice 1 capsule Feb, days Ac tive MG daily at bedtime 2019 Vitamin D 1000 Orally Once a 1 tablet 24h Ac tive UNIT day Prometrium 100 Orally Once a 2 capsules 24h Jan, day(s ) Active MG day 2019 PROCEDURES Procedure Date Ordered Result Body Site VENIPUNCT, ROUTINE* Jul 03, 2019 HPV HIGH-RISK TYPES Mar 19, 2018 CYTOPATH, C/V, THIN LAYER Mar 19, 2018 GONADOTROPIN (FSH) Jul 03, 2019 ASSAY OF ESTRADIOL Jul 03, 2019 RESULTS Name Result Date Reference Range ESTRADIOL 2019-07-03 ESTRADIOL 115 FSH 2019-07-03 FSH 4.9 MAMMOGRAM, SCREENING 2018-04-10 THINPREP PAP AND HPV mRNA E6/E7 REFLEX HPV 03-19 16,18/45 CLINICAL INFORMATION: COMMENT FREIGHT ASSOCIATE: HPV mRNA E6/E7 Not Detected Not Detected INTERPRETATION/RESULT: LMP: PREV. BX: N/A PREV. 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 FREIGHT ASSOCIATE: SOURCE: [employer] STATEMENT OF ADEQUACY: REASON FOR VISIT Insurance Providers [facility] Health Member Patient Patient Patient Patient Patient Subscriber Subscriber Subscriber Group Insurance Plan Plan Plan Plan ID Relationship Address Phone Name Date of ID Name Date of No Type Insurance Insurance Insurance Coverage to Subscriber Address Phone Name Dates [place] [address] [place] [id number] Group [id number] [place] [id number] Blue Cross [address] Blue Cross self [place] [id number] and [address] [id number] [address] and Blue STARFIEL [address] [facility] [address] [place] MEDICAL (GENERAL) HISTORY Type Description Date Medical History Bladder Infections Surgical History Bladder Sling 2010 Surgical History Uterine Ablation 2010
--- OUTSIDE RECORDS SUMMARY | 2022-03-06 01:54 | XMS_ITS | Encounter Summary ---
:1975 Author Organization [facility] Address [address] [place] [address] Care Team Providers Name Role Phone Unavailable Primary Care Provider Unavailable Reason for Visit Reason Comments Other Pre-appointment review Encounter Details Date Type Department Care Team Description 02/09/2021 Documentation Department of Denisha Oviedo Obstetrics and EKelly (Pre-appointment Gynecology in [address] [facility] review ) [place], [place] [address] [place] [phone] [place], [place] [phone] (Work) [phone] Social History Tobacco Use Types Packs/Day Years [...] or slept in a penitentiary (including now)? Sex Assigned at Date Recorded Female 02/10/2021 8:20 AM CDT documented as of this encounter Progress Notes Dianne Mcknight, RChapincitoN. - 02/09/2021 2:18 PM CDT PREPROCEDURE RECORD REVIEW. Information collected has not been verified by the patient. Patient not seen. Patient will be seen by Denisha Oviedo MD on 02/11/21. Angelica Yang [address] [facility] [address] ANTICIPATED SURGICAL DATE/PROCEDURE: Pending consult DIAGNOSIS: Large complex cystic and solid adnexal masses HISTORY OF PRESENT ILLNESS: This is a 45-year-old female. Pelvic ultrasound on 02/03/2021 showed enlargement of ovaries with complex solid and cystic masses both ovaries. CT on 01/29/21 showed large complex cystic and solid adnexal masses. MRI on 02/08/21 showed bilateral ovarian masses, suspicious for high- grade serous carcinoma. CA-125 was 1617. 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 IMAGING/PATHOLOGY (outside reports scanned in): 02/08/21 MRI PELVIS: IMPRESSION: 1. Bilateral ovarian [...] date. 4. Consider diagnostic paracentesis cytology evaluation. 02/08/21 CT ABDOMEN/PELVIS: IMPRESSION: 1. Large complex cystic and solid adnexal masses by suspicious for ovarian malignancy. 2. Ascites with suspected tumor implants including along the liver surface, splenic surface of the right lower quadrant likely representing carcinomatosis. 3. Indeterminate right hepatic lesion could represent metastasis. Small indeterminate splenic foci are also noted. 4. Prominent retroperitoneal lymph nodes. 02/03/21 PELVIC ULTRASOUND IMPRESSION: 1. Enlargement of the ovaries with complex solid and cystic masses with internal vascularity presentwithin both ovaries. Appearance is indeterminate and differential includes both malignant and benignpossibilities. Recommend consideration for MRI of the pelvis for further delineation of these ovarian structures. (Outside labs scanned in) DATE: 01/08/21 H.5 WBC: 5.1 PLT: 229 GL: 89 Cr: 0.7 Na: 134 K: 5.4 CA-126: 1617 FOLLOWING TESTS/IMAGING HAVE BEEN ORDERED: CBC, BMP, CA125, albumin documented in this encounter Plan of Treatment Upcoming Encounters Date Type Specialty Care Team Description 04/11/2022 Clinical Communication Admitting/Central Scheduling 04/13/2022 Appointment Laboratory Medicine Debbie Ivey M.D. [address] [place] [phone] 04/13/2022 Office Visit Oncology Walter Barnhart M.D., Ph.D. [address] [place] [phone] documented as of this encounter Visit Diagnoses Not on filedocumented in this encounter
--- OUTSIDE RECORDS SUMMARY | 2022-03-06 01:54 | XMS_ITS | Encounter Summary ---
:1975 Author Organization [facility] Address [address] [place] [address] Care Team Providers Name Role Phone Unavailable Primary Care Provider Unavailable Reason for Visit Reason Comments Communication Encounter Details Date Type Department Care Team Description 02/08/2021 Clinical Communication Department of Denisha Oviedo Communication Obstetrics and E, MMickey. Gynecology in [address] [place] [address] [place] [phone] [place], [place] [phone] (Work) [phone] Social History Tobacco Use Types Packs/Day Years [...] slept in a care home (including now)? Sex Assigned at Date Recorded Female 02/10/2021 8:20 AM CDT documented as of this encounter Miscellaneous Notes Telephone Encounter - Arabella Evans - 02/08/2021 3:22 PM CDT [facility] called back on this pt and she is rescheduled to 02/11 with a 7:45 am check in. Pt was at [facility] and they were making pt aware of the update. Thank you Telephone Encounter - Cindy Sanon - 02/08/2021 11:07 AM CDT Pt is currently scheduled to see GEG on 02/18. Pt just got her imaging results back that she pushed to us and found out that her cancer is metastasized and she doesn't think that she can wait until 02/18. Is it possible for someone to add her on before then? Pt is extremely worried. documented in this encounter Plan of Treatment Upcoming Encounters Date Type Specialty Care Team Description 04/11/2022 Clinical Communication Admitting/Central Scheduling 04/13/2022 Appointment Laboratory Medicine Debbie Ivey M.D. [address] [place] [address] 04/13/2022 Office Visit Oncology Walter Barnhart M.D., Ph.D. [address] [place] [address] documented as of this encounter Visit Diagnoses Not on filedocumented in this encounter
--- OUTSIDE RECORDS SUMMARY | 2022-03-06 01:59 | XMS_ITS ---
:1975 Author Name Timbo Quick Care Team Providers Name Role Phone Abdelrahman Timbo Unavailable Unavailable PROBLEMS Type Condition ICD9-CM Code [id number] Onset Condition SNOMED Code Code Dates Status Problem Perimenopause N95.1 Active Problem Perimenopausal N95.1 Active Problem Perimenopausal N95.1 Active 48192 3006 vasomotor symptoms Problem Binge eating F50.81 Active 5542566 05 disorder ALLERGIES No Known Allergies ENCOUNTERS Encounter Location Date Diagnosis [facility] [address] Dec, [place], [place] [phone] [facility] [place] [address] [facility] Dec, [address] [address] [place] [address] [facility] Jun, [address] [address] [facility] [address] Feb, [place], [place] [phone] [facility] [address] Dec, [place], [place] [phone] [facility] [address] Jun, [place], [place] [phone] [facility] [address] Jun, Perim enopausal vasomotor [facility] 120 symptoms N95.1 a nd [place], [place] Encounter for sc reening [address] for lipid disord er Z13.220 [facility] [address] Jun, Perim enopausal N95.1 and [place] [address] Hot flashes R23. 2 [place] [address] [facility] [address] Jun, Perime nopause N95.1 [place], [place] [phone] [facility] [address] Apr, [place] [address] [place] [address] [facility] [address] October, [place], [place] [phone] [facility] [address] Apr, [place] [phone] [facility] [address] Mar, [place], [place] [phone] [facility] [address] Mar, [place], [place] [phone] [facility] [address] Mar, [place], [place] [phone] [facility] [address] Mar, A nnual physical exam for Women-[place] [address] Z00.00 ; Cervica l cancer [place], [place] screening Z12.4 ; Breast [address] cancer screening by mammogram Z12.31 ; Perimenopause N9 5.1 and Binge eating dis order F50.81 [facility] [address] Jul, Perim enopausal vasomotor [place] [address] symptoms N95.1 a nd Breast [place], [place] cancer screening Z12.31 [address] IMMUNIZATIONS No Known Immunizations SOCIAL HISTORY Qualifiers [...] REFLEX HPV 03-19 16,18/45 CLINICAL INFORMATION: COMMENT MEDICAL SUPERINTENDENT: HPV mRNA E6/E7 Not Detected Not Detected INTERPRETATION/RESULT: LMP: PREV. BX: N/A PREV. 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 MEDICAL SUPERINTENDENT: SOURCE: [employer] STATEMENT OF ADEQUACY: REASON FOR VISIT Insurance Providers [facility] Member Patient Patient Patient Patient Patient Subscriber Subscriber Subscriber Group Insurance Plan Plan Plan Plan ID Relationship Address Phone Name Date of ID Name Date of No Type Insurance Insurance Insurance Coverage to Subscriber Address Phone Name Dates [place] [address] [place] [id number] Group [id number] [place] [address] Blue Cross [address] Blue Cross self [place] [id number] and Blue [id number] [address] and Blue STARFIEL [address] [facility] [address] [place] MEDICAL (GENERAL) HISTORY Type Description Date Medical History Bladder Infections Surgical History Bladder Sling 2010 Surgical History Uterine Ablation 2010
--- NOTE | 2022-03-06 02:16 | ED.NURSE ---
Pt having PAC's set off afib alarm, strip printed, Dr. Pederson updated.
--- NOTE | 2022-03-06 03:08 | CRLHL7_ITS ---
For Patients: As a result of the Century Cures Act, medical imaging exams and procedure reports are released immediately into your electronic medical record. You may view this report before your referring provider. If you have questions, please contact your health care provider. Indication: NG tube placement Technique: Chest 1 view. Comparison: June 21, 2018 Findings/Impression: : Nasogastric tube tip terminates at the level of the proximal stomach and could be slightly advanced. Normal cardiomediastinal silhouette and pulmonary vasculature. Lungs and pleural spaces are clear. No acute osseous abnormality. Dictated by Ashley Aguilar MD @ 03/06/2022 4:48:01 AM (Electronically Signed)
--- NOTE | 2022-03-06 03:19 | ED.NURSE ---
16Fr ng tube to low intermittent suction, placed easily to 55. xr for placement
[2022-03-06 03:25] LABS: PCR FLU A Negative PCR FLU A (Negative); PCR FLU B Negative PCR FLU B (Negative)
[2022-03-06 03:26] LABS: SARS PCR* Negative SARS-CoV-2 (Negative)
--- NOTE | 2022-03-06 04:44 | P.IMCN_ITS ---
Date of Consult Consult date: 03/06/22 Primary Care Provider: Not a Local Provider Consult Narrative Narrative: Angelica Yang is a 46 year old female [facility] PFS Family History (Updated 11/30/21 @ 09:45 by Barry Damon) Father Bladder cancer Social History Smoking Status: Never smoker How often do you have a drink containing alcohol: 2-3 times a week AUDIT-C Alcohol total score: 3 Non-prescribed substance use: denies use Meds Home Medications and Allergies Home Medications Medication Instructions Recorded Confirmed Type Zejula 03/06/22 History lisdexamfetamine 70 mg capsule mg 03/06/22 History (Vyvanse) Allergies Allergy/AdvReac Type Severity Reaction Status Date / Time No Known Drug Allergies Allergy Verified 03/06/22 00:29 Exam Const: Vital Signs, click to edit/add: Vital Signs - 24 hr 03/06/22 00:25 03/06/22 01:40 03/06/22 02:00 Temperature 97.6 F Pulse Rate [Right Pulse Oximeter] 85 69 57 L Respiratory Rate 20 18 18 Blood Pressure [Le ft Upper Arm] 121/65 128/89 127/90 H Pulse Oximetry 100 99 Oxygen Delivery Me thod Room Air Room Air 03/06/22 02:30 Temperature Pulse Rate [Right Pulse Oximeter] 58 L Respiratory Rate 16 Blood Pressure [Le ft Upper Arm] 134/84 Pulse Oximetry 99 Oxygen Delivery Me thod Room Air Labs Labs: Short CBC 03/06/22 Range/Units 01:10 WBC 7.58 (4.50-11.00) K/uL Hgb 14.1 (12.0-16.0) gm/dL Hct 40.5 (33.0-51.0) % Plt Count 242 (140-440) K/uL BMP 03/06/22 01:10 Sodium 137 Potassium 4.0 Chloride 99 Carbon Dioxide 27 BUN 14 Creatinine 0.8 Glucose 125 H Calcium 10.3 Liver Function 03/06/22 Range/Units 01:10 Total Bilirubin 1.7 H (0.1-1.5) mg/dL Direct Bilirubin 0.1 (0.0-0.5) mg/dL AST 42 H (12-35) U/L ALT 27 (4-35) U/L Alkaline Phosphatase 127 (40-150) U/L Albumin 5.0 (3.3-5.0) g/dL Assessment and Plan Assessment and plan (1) SBO (small bowel obstruction): Status: Acute Plan Diaz Raineyist CONSULTATION NOTE: Reason for consult: Small bowel obstruction HPI: Patient is a pleasant 46-year-old female with history of ovarian cancer and partial colon resection who presents for abdominal pain, nausea, and vomiting that started on 03/05/2022 in progress throughout the day. Patient is unsure when her last bowel movement was as she usually uses enemas to induce a bowel movement. The last time she used an enema prior to presentation it was not as effective as usual. She denies any headache or lightheadedness. She denies any chest pain or shortness of breath. She did have some chills but no fevers. She continues to have abdominal pain. She continues to be very nauseous. Patient is a non-smoker. She drinks alcohol on occasion. She also uses marijuana edible on occasion to help sleep. She does not use other recreational drugs. We discussed CODE STATUS and she wishes to be a full code. Assessment and Plan: 1. Small bowel obstruction Patient is a pleasant 46-year-old female admitted for small bowel obstruction. NG was placed in the ED and we will keep it to low intermittent suction. She will PRNs available for pain and nausea. We will gently hydrate her while she is NPO. Surgery will see her later on today and determine whether she will require procedure or not. No pharmacologic DVT prophylaxis has been ordered with the possibility of procedure in the next day or 2. Patient is a full code. Thank you for including Diaz Harris in the patients care. This service is available for further assistance as requested by your care team by calling [phone].
[2022-03-06] MEDS: MORPHINE 4 MG/ML INJ IVP (05:42)
[2022-03-06] MEDS: 0.9 % SODIUM CHLORIDE 1000 ml 1,000 ML 75 ML IV ×2 (05:49→17:52)
[2022-03-06] MEDS: BENZOCAINE/MENTHOL 1 EACH LOZENGE MUCOUS MEM ×4 (06:58→12:34)
[2022-03-06] MEDS: diphenhydrAMINE 50 MG/ML inj 25 MG IVP (06:59)
--- NOTE | 2022-03-06 07:55 | PC.NURSE ---
Shift note: NG to right nare at 55 cm low intermittent suction to wall; about 500 cc of gastric content noted in the suction canister since the NG tube insertion. The pt reported moderated abdominal pain and nausea ; Zofran and Morphine were given; While giving IV morphine the pt started itching and rash noted to the IV arm ( left arm ). Diaz was called and updated by charge nurse; an order for Benadryl was received and administered; the AM nurse to assess the result. Morphine was added to allergy list and removed from the MAR. The pt didn't make any urine yet.
--- NOTE | 2022-03-06 08:51 | PM.GSCN ---
History of Present Illness Consult details Date Seen: 03/06/22 Consult date: 03/06/22 Narrative: Patient presented to the emergency department overnight with complaints of worsening abdominal pain. She describes the pain as cramping in quality and coming in waves. She did have associated nausea and vomiting. She has never had pain like this before. Denies any fevers, but reports chills at home. She underwent a hysterectomy, bilateral salpingo-oophorectomy, colonic in splenic resection secondary to ovarian cancer in April 2022. She did recover well from that procedure and has been undergoing chemotherapy. She does report a history of chronic constipation since the procedure and often does a daily enema. She did do an enema yesterday but reports that it was not ?as productive as usual?. Review of Systems Status of ROS: Reports: 10 or more systems reviewed and unremarkable except as noted in History and below [facility] Medical History Cancer Family History Father Bladder cancer Social History Highest level of school completed/degree received: Bachelor's degree Smoking Status: Never smoker How often do you have a drink containing alcohol: 2-3 times a week Alcohol type: wine How many standard drinks containing alcohol do you have on a typical day: 1 or 2 How often do you have six or more drinks on one occasion: Never AUDIT-C Alcohol total score: 3 Non-prescribed substance use: denies use Caffeine: Yes (1/2 CUP COFFEE) service: No Meds Home Medications and Allergies Home Medications Medication Instructions Recorded Confirmed Type Zejula 03/06/22 History lisdexamfetamine 70 mg capsule mg 03/06/22 History (Vyvanse) Allergies Allergy/AdvReac Type Severity Reaction Status Date / Time morphine Allergy Intermediate Verified 03/06/22 06:11 Exam Narrative: Exam Narrative: General: Alert and oriented, no acute distress. Lying in bed. HEENT: NG tube present with thicker bilious output Abdomen: No significant distention, firm with tenderness on palpation, no guarding or rebound. No concern for peritonitis. Midline incision well healed. Const: Vital Signs, click to edit/add: Vital Signs - 24 hr 03/06/22 00:25 03/06/22 01:40 03/06/22 02:00 Temperature 97.6 F Pulse Rate Pulse Rate [Right Pulse Oximeter] 85 69 57 L Respiratory Rate 20 18 18 Blood Pressure [Le ft Upper Arm] 121/65 128/89 127/90 H Blood Pressure [Ri ght Arm] Pulse Oximetry 100 99 Oxygen Delivery Me thod Room Air Room Air 03/06/22 02:30 03/06/22 04:27 03/06/22 03:23 Temperature 97.6 F Pulse Rate Pulse Rate [Right Pulse Oximeter] 58 L Respiratory Rate 16 16 16 Blood Pressure [Le ft Upper Arm] 134/84 Blood Pressure [Ri ght Arm] 127/89 Pulse Oximetry 99 97 97 Oxygen Delivery Me thod Room Air Room Air Room Air 03/06/22 05:13 03/06/22 07:26 Temperature 97.6 F Pulse Rate 71 Pulse Rate [Right Pulse Oximeter] Respiratory Rate 16 Blood Pressure [Le ft Upper Arm] Blood Pressure [Ri ght Arm] 127/89 Pulse Oximetry 97 Oxygen Delivery Me thod Room Air Results Labs Labs: Abnormal lab results 03/06/22 03/06/22 Range/Units 01:10 01:10 Neut % (Auto) 77.7 H (42.0-72.0) % Lymph % (Auto) 12.8 L (20-44) % Glucose 125 H (60-115) mg/dL Total Bilirubin 1.7 H (0.1-1.5) mg/dL AST 42 H (12-35) U/L Diabetes panel 03/06/22 Range/Units 01:10 Sodium 137 (135-149) mmol/L Potassium 4.0 (3.6-5.1) mmol/L Chloride 99 (96-114) mmol/L Carbon Dioxide 27 (20-32) mmol/L BUN 14 (5-24) mg/dL Creatinine 0.8 (0.5-1.5) mg/dL Glucose 125 H (60-115) mg/dL Calcium 10.3 (8.4-10.6) mg/dL AST 42 H (12-35) U/L ALT 27 (4-35) U/L Alkaline Phosphatase 127 (40-150) U/L Total Protein 8.2 (6.0-8.3) g/dL Albumin 5.0 (3.3-5.0) g/dL Calcium panel 03/06/22 Range/Units 01:10 Calcium 10.3 (8.4-10.6) mg/dL Albumin 5.0 (3.3-5.0) g/dL Pituitary panel 03/06/22 Range/Units 01:10 Sodium 137 (135-149) mmol/L Potassium 4.0 (3.6-5.1) mmol/L Chloride 99 (96-114) mmol/L Carbon Dioxide 27 (20-32) mmol/L BUN 14 (5-24) mg/dL Creatinine 0.8 (0.5-1.5) mg/dL Glucose 125 H (60-115) mg/dL Calcium 10.3 (8.4-10.6) mg/dL Adrenal panel 03/06/22 Range/Units 01:10 Sodium 137 (135-149) mmol/L Potassium 4.0 (3.6-5.1) mmol/L Chloride 99 (96-114) mmol/L Carbon Dioxide 27 (20-32) mmol/L BUN 14 (5-24) mg/dL Creatinine 0.8 (0.5-1.5) mg/dL Glucose 125 H (60-115) mg/dL Calcium 10.3 (8.4-10.6) mg/dL Total Bilirubin 1.7 H (0.1-1.5) mg/dL AST 42 H (12-35) U/L ALT 27 (4-35) U/L Alkaline Phosphatase 127 (40-150) U/L Total Protein 8.2 (6.0-8.3) g/dL Albumin 5.0 (3.3-5.0) g/dL All other labs normal. Imaging Abdomen CT scan report/results: report reviewed and image reviewed Assessment and Plan Assessment and plan (1) SBO (small bowel obstruction): Status: Acute Plan Patient is a 46-year-old female who presented to the emergency department with evidence of a small-bowel obstruction secondary to adhesions. NG tube was placed in the emergency department with output of thick bilious material. Vital signs stable overnight and afebrile since admission. Labs demonstrate no evidence of leukocytosis, normal lactate. CT scan imaging was reviewed with questionable transition point in the left upper quadrant. Agree with continuing medical management at this time. -NPO, IV fluids -NG tube to low intermittent suction -encourage ambulation -SCDs for DVT prophylaxis. Will continue to follow. Please call with any acute clinical changes, questions or concerns.
[2022-03-06] MEDS: KETOROLAC 15 MG/ML inj IVP ×2 (11:12→17:52)
[2022-03-06 11:19] LABS: Appearance Urine Slightly Cloudy (Clear); Bilirubin Urine Negative (Negative); Blood Urine Negative (Negative); Color Urine Yellow (Yellow); Glucose Urine Negative (Negative); Ketones Urine 1+ (Negative); Leukocyte Esterase Urine Negative (Negative); Nitrite Urine Negative (Negative); Protein Urine Negative (Negative); Specific Gravity Urine 1.015 (1.000-1.030); Urobilinogen Urine 0.2 (0.2-1.0); pH Urine 7.5 (5.0-8.5)
[2022-03-06 11:32] LABS: Amorphous Sediment Urine Many; Bacteria Urine Few; RBC Urine 0-2 (0-2); Squamous Epithelial Cell Urine Few (None-Few)
--- NOTE | 2022-03-06 16:58 | PM.IMHP1 ---
Hospitalist- H&P: HPI History of Present Illness Time Seen by Provider: 08:00 Date Seen: 03/06/22 Chief complaint: Abdominal Pain Narrative: Angelica Yang is a 46 year old woman with known stage IVB HRD positive ovarian cancer for which she is on niraparib maintenance therapy who?presented to the hospital this morning with 9 hour history of increasing abdominal pain not resolving with home efforts including effort to eliminate stool and a warm bath. Describes the pain as constant but in waves it gets worse and then better. Has never had pain like this previously. Had some nausea and vomiting. Denies fevers, rigors, diaphoresis. On presentation to the emergency department she is found to have a small-bowel obstruction. Ovarian cancer diagnosed April 2022, status post hysterectomy, bilateral salpingo oophorectomy, colonic and splenic resection. Subsequently underwent chemotherapy. Tells me she has been doing relatively well since then. Also notes a sense of constipation since then for which she uses daily enemas. I obtained the following cancer history from her [facility] records: Oncology History Malignant Neoplasm Of Ovary Laterality Unknown (HCC) Genetic Testing and Tumor Genotyping Genetic testing in 2020; BRCAnalysis with MyRisk panel from [facility]. Variant of Uncertain Significance (VUS) found in APC gene specifically named [id number] aka [id number]). Somatic testing: HRD Positive, BRCA negative 02/03/2021 Other Ultrasound with bilateral complex solid and cystic ovarian masses. 02/08: CT abdomen/pelvis and MRI pelvis suspicious for high-grade serous carcinoma of ovary, ascites with suspected tumor implants on liver, spleen suspicious for peritoneal carcinomatosis. 02/11/[address] Oviedo of Gynecologic Oncology. CT scan demonstrated mixed solid and multicystic bilateral ovarian masses, peritoneal carcinomatosis, and moderate ascites. Disease involved the liver and spleen. Highest pretreatment CA 125 was 2428. Due to extensive peritoneal carcinomatosis, liver and splenic lesions, and a fixed pelvis, Dr. Oviedo recommended neoadjuvant chemotherapy. 02/16/2021 Biopsy/Pathology Pelvic mass biopsy consistent with high-grade serous carcinoma. Positive for PAX8, p53, p16. 02/25/2021 - 04/13/2021 Chemotherapy CARBOplatin AUC 6 / PACLitaxel ( [employer] ) Start Date: 02/25/2021 Completed 3 cycles of neoadjuvant chemo. 05/09/[address] Denisha Oviedo: Exploratory laparotomy, total abdominal hysterectomy with bilateral salpingo-oophorectomy, omentectomy, splenectomy, diaphragm stripping, lysis of adhesions, colectomy left with anastomosis. She also had a liver wedge resection with intraoperative ultrasound. 05/09/2021 Biopsy/Pathology Stage IVB high-grade serous carcinoma Carcinoma involves the right fallopian tube and ovary, left ovary, uterine serosa, umbilical nodule, omentum, liver segment 3 and 4B, right diaphragm excision, right anterior abdominal wall, her right pelvic gutter, left mid diaphragm, spleen and serosal surface of the sigmoid colon. 05/30/2021 - 07/11/2021 Chemotherapy CARBOplatin AUC 6 / PACLitaxel ( [employer] ) Start Date: 02/25/2021 Adjuvant chemotherapy, cycles 4 through 6. No evidence of disease at the completion of therapy. 10/18/2021 - Biological/Targeted/Hormone Therapy Maintenance niraparib. Review of Systems Status of ROS: Reports: 10 or more systems reviewed and unremarkable except as noted in History and below Narrative: Denies chest heaviness, pressure, tightness or pain. Denies syncope or near-syncope. Denies palpitations or chest fluttering. Denies dyspnea at rest, paroxysmal nocturnal dyspnea, orthopnea. No recent cough. Denies dysuria, urgency, frequency, hematuria. Denies heat or cold intolerance. Denies polyuria, poly aphasia, polydipsia. No recent trauma or injury. No recent travel. No focal motor neurologic deficits. No myalgias or arthralgias. No recent rashes. Has been doing well with her maintenance therapy for ovarian cancer. Continues to work with her oncologist at [facility], [place], [place]. [facility] Medical History Cancer History of obstruction of large intestine (04/25/21) Neutropenia due to and not concurrent with chemotherapy (04/07/21) Ovarian cancer, bilateral (02/17/21) Personal history of malignant neoplasm of ovary (05/09/21) Family History Father Bladder cancer Social History Highest level of school completed/degree received: Bachelor's degree Smoking Status: Never smoker How often do you have a drink containing alcohol: 2-3 times a week Alcohol type: wine How many standard drinks containing alcohol do you have on a typical day: 1 or 2 How often do you have six or more drinks on one occasion: Never AUDIT-C Alcohol total score: 3 Non-prescribed substance use: denies use Caffeine: Yes (1/2 CUP COFFEE) service: No Meds Home Medications and Allergies Home Medications Medication Instructions Recorded Confirmed Type Zejula 200 mg PO DAILY 03/06/22 03/06/22 History lisdexamfetamine 70 mg capsule 70 mg PO DAILY 03/06/22 03/06/22 History (Vyvanse) Allergies Allergy/AdvReac Type Severity Reaction Status Date / Time morphine Allergy Intermediate Verified 03/06/22 06:11 Exam Narrative: Exam Narrative: Appears tired. At the moment seems for the most part comfortable. Has NG tube in. Bilious drainage from NG tube. Alert, oriented to self, place, time, situation. Cooperative and friendly. Mood and affect are congruent. Lungs clear to auscultation. Heart tones with regular rhythm. Abdomen somewhat distended subjectively uncomfortable without peritoneal signs. Extremities without edema. Moves all 4 extremities. Skin is warm, dry, and intact. Const: Vital Signs, click to edit/add: Vital Signs - 24 hr 03/06/22 00:25 03/06/22 01:40 03/06/22 02:00 Temperature 97.6 F Pulse Rate Pulse Rate [Right Pulse Oximeter] 85 69 57 L Pulse Rate [Right Radial] Respiratory Rate 20 18 18 Blood Pressure [Le ft Upper Arm] 121/65 128/89 127/90 H Blood Pressure [Ri ght Arm] Pulse Oximetry 100 99 Oxygen Delivery Me thod Room Air Room Air 03/06/22 02:30 03/06/22 04:27 03/06/22 03:23 Temperature 97.6 F Pulse Rate Pulse Rate [Right Pulse Oximeter] 58 L Pulse Rate [Right Radial] Respiratory Rate 16 16 16 Blood Pressure [Le ft Upper Arm] 134/84 Blood Pressure [Ri ght Arm] 127/89 Pulse Oximetry 99 97 97 Oxygen Delivery Me thod Room Air Room Air Room Air 03/06/22 05:13 03/06/22 07:26 03/06/22 10:20 Temperature 97.6 F Pulse Rate 71 Pulse Rate [Right Pulse Oximeter] Pulse Rate [Right Radial] Respiratory Rate 16 16 Blood Pressure [Le ft Upper Arm] Blood Pressure [Ri ght Arm] 127/89 Pulse Oximetry 97 Oxygen Delivery Me thod Room Air 03/06/22 07:50 03/06/22 11:15 03/06/22 15:52 Temperature 98.2 F 98.3 F Pulse Rate Pulse Rate [Right Pulse Oximeter] Pulse Rate [Right Radial] 71 88 88 Respiratory Rate 16 16 16 Blood Pressure [Le ft Upper Arm] Blood Pressure [Ri ght Arm] 142/95 H 120/82 Pulse Oximetry 97 99 Oxygen Delivery Va thod Room Air Room Air 03/06/22 15:52 Temperature 98.7 F Pulse Rate Pulse Rate [Right Pulse Oximeter] Pulse Rate [Right Radial] 87 Respiratory Rate 16 Blood Pressure [Le ft Upper Arm] Blood Pressure [Ri ght Arm] 126/81 Pulse Oximetry 98 Oxygen Delivery Va thod Room Air Hospitalist - H&P: Result Labs Labs: Short CBC 03/06/22 Range/Units 01:10 WBC 7.58 (4.50-11.00) K/uL Hgb 14.1 (12.0-16.0) gm/dL Hct 40.5 (33.0-51.0) % Plt Count 242 (140-440) K/uL BMP 03/06/22 01:10 Sodium 137 Potassium 4.0 Chloride 99 Carbon Dioxide 27 BUN 14 Creatinine 0.8 Glucose 125 H Calcium 10.3 Liver Function 03/06/22 Range/Units 01:10 Total Bilirubin 1.7 H (0.1-1.5) mg/dL Direct Bilirubin 0.1 (0.0-0.5) mg/dL AST 42 H (12-35) U/L ALT 27 (4-35) U/L Alkaline Phosphatase 127 (40-150) U/L Albumin 5.0 (3.3-5.0) g/dL Urine 03/06/22 Range/Units 10:36 Urine Color Yellow (Yellow) Urine Appearance Slightly Cloudy A (Clear) Urine pH 7.5 (5.0-8.5) Ur Specific [place] 1.015 (1.000-1.030) Urine Protein Negative (Negative) Urine Glucose (UA) Negative (Negative) Imaging CT scan - abdomen: Attestation: I have reviewed the pertinent imaging results. Radiologist's impression: Small-bowel obstruction. Transition point may be within the left upper quadrant as described above, possibly from adhesion from prior splenectomy. Small amount of simple free fluid in the pelvis. Status post hysterectomy and splenectomy. Low-density focus under the diaphragm is not seen on today`s study nor is the low density lesion in the liver. These findings suggest improvement in metastatic disease. Assessment and Plan Assessment and plan (1) SBO (small bowel obstruction): Problem comment: 1st episode in April 2021, now 03/06/2022 Status: Acute (2) H/O ovarian cancer: Problem comment: Stage IVB on maintenance therapy Status: Acute Plan 1. Reviewed impression with patient. 2. Discussed with surgeon. 3. Continue with conservative management efforts for now. 4. Patient agreeable to above stated plans and recommendations
--- NOTE | 2022-03-06 18:27 | PC.NURSE ---
End of shift. pt has been very pleasant. abd pain is 1-7/10. NG was @ 54 cm. to LIS. later she wanted it out. called DR. Hernandez and md recommend it stay in over night. talked to pt and she asked it to be removed and I did explain that md would like it kept in over night. pt then did decided that is was very uncomfortable in her throat and that she wanted the tube out/. So, after talking to pt and relaying what the md told me, I did d/c the NG tube per pt request. she had 225 out of her NG when d/c/ she has passed gas several time before d/c the NG and was up walking. she she has passing gas and has also been up walking after the ng was stopped and she also took a shower. she did not need any Dilaudid but did get Toradol 2 times. IV has been parent. she can have ice chips and sips of water per Dr. Hernandez. BS are active. tele was d/c this am. throat Cepastat Lozenges given.
[2022-03-07] MEDS: 0.9 % SODIUM CHLORIDE 1000 ml 1,000 ML 75 ML IV (02:52)
[2022-03-07 02:54] VITALS: BP 125/75; PULSE 85; RESP 16; TEMP 37.2; O2SAT 95
--- NOTE | 2022-03-07 04:28 | PC.NURSE ---
Pt rested well this night. Reporting very little to Zero pain. No N/V. Claims Passing more gas. Up IND walking halls.
[2022-03-07 07:27] LABS: Hematocrit 38.6 % (33.0-51.0); Hemoglobin* 12.9 gm/dL (12.0-16.0); Mean Corpuscular HGB Conc 33 gm/dL (32-36); Mean Corpuscular Hemoglobin 34 pg (26-34); Mean Corpuscular Volume 101 fL (80-100); Platelet Count* 225 K/uL (140-440); Red Blood Count 3.84 m/uL (4.00-5.20); White Blood Count* 3.73 K/uL (4.50-11.00)
[2022-03-07 07:30] VITALS: BP 126/84; PULSE 83; RESP 16; TEMP 36.9; O2SAT 99
[2022-03-07 07:32] LABS: Slide Review Reflex No
[2022-03-07 08:00] VITALS: PULSE 83; RESP 16
[2022-03-07 08:02] LABS: Albumin* 4.2 g/dL (3.3-5.0); Chloride* 105 mmol/L (96-114); Sodium* 138 mmol/L (135-149)
[2022-03-07 08:05] LABS: Blood Urea Nitrogen* 13 mg/dL (5-24); Carbon Dioxide* 23 mmol/L (20-32); Creatinine* 0.6 mg/dL (0.5-1.5); Est. Creatinine Clearance* 102.66; Estimated Glomerular Filt Rate 112 ml/min; Potassium* 4.1 mmol/L (3.6-5.1)
[2022-03-07 08:06] LABS: Calcium* 8.8 mg/dL (8.4-10.6); Phosphorus* 3.1 mg/dL (2.5-4.5)
[2022-03-07 08:22] LABS: Glucose* 97 mg/dL (60-115)
[2022-03-07 11:30] VITALS: BP 126/92; PULSE 87; RESP 16; TEMP 36.9; O2SAT 98
--- NOTE | 2022-03-07 12:04 | PM.GSPN ---
Subjective Subjective Date Seen: 03/07/22 Interval history: Patient is feeling much better today. She denies any abdominal pain. She has been tolerating a full liquid diet without any difficulty. Continues to pass gas, no bowel movement. She does routinely do enemas on a daily basis. Exam Narrative: Exam Narrative: General: Alert and oriented, no acute distress Abdomen: Soft, nontender, nondistended. Positive bowel sounds. Const: Vital Signs, click to edit/add: Vital Signs - 24 hr 03/06/22 15:52 03/06/22 15:52 03/06/22 17:37 Temperature 98.7 F Pulse Rate [Right Radial] 88 87 Respiratory Rate 16 16 Blood Pressure [Ri ght Arm] 126/81 Pulse Oximetry 98 98 Oxygen Delivery Me thod Room Air Room Air 03/06/22 19:51 03/06/22 19:54 03/06/22 22:36 Temperature 99 F 99 F 98.8 F Pulse Rate [Right Radial] 97 89 Respiratory Rate 16 16 Blood Pressure [Ri ght Arm] 124/73 111/73 Pulse Oximetry 97 100 Oxygen Delivery Me thod Room Air Room Air 03/06/22 22:38 03/07/22 02:54 03/07/22 07:30 Temperature 99 F 98.5 F Pulse Rate [Right Radial] 89 85 83 Respiratory Rate 16 16 16 Blood Pressure [Ri ght Arm] 125/75 126/84 Pulse Oximetry 95 99 Oxygen Delivery Me thod Room Air Room Air 03/07/22 08:00 Temperature Pulse Rate [Right Radial] 83 Respiratory Rate 16 Blood Pressure [Ri ght Arm] Pulse Oximetry Oxygen Delivery Me thod Progress Note: A&P Assessment and plan (1) SBO (small bowel obstruction): Problem details: 1st episode in April 2021, now 03/06/2022 Status: Acute Assessment and Plan: Patient with improved exam and now return of bowel function. Is tolerating a diet and anxious to go home. Ok for discharge per hospitalist.
--- NOTE | 2022-03-07 12:52 | PC.NURSE ---
End of shift.? pt is very pleasant.? abd pain is 0/10.? IV has been parent.? she had a clear liquid diet per Dr. Hernandez.? and later a soft diet per DR. Bhakta. BS are active. she is passing gas. she is up walking. ?SL was d/c intact. went over discharge packet with pt and . went over medications, appointments, and instruction and educations. pt signed paperwork for her md to get records from this visit. she is feeling good and wants to go home. she went over and signed personal belonging sheet. she was offered a s/c ride out
--- NOTE | 2022-03-07 15:29 | PM.DS1 ---
DS: Providers Provider Time Seen by Provider: 11:00 Date Seen: 03/07/22 Date of admission: 03/06/22 15:01 Primary care physician: Not a Local Provider Admitting Clinician: Jacobo Pederson MD Consults: Manasa Hernandez MD Attending Physician on discharge: Chava Bhakta MD Date of Discharge: 03/07/22 DS: Diagnosis Discharge Diagnosis (1) SBO (small bowel obstruction): Status: Acute Problem details: 1st episode in April 2021, now 03/06/2022 (2) H/O ovarian cancer: Status: Acute Problem details: Stage IVB on maintenance therapy DS: Summary Hospital Course Hospital Course: Angelica Yang is a 46 year old woman with known stage IVB HRD positive ovarian cancer for which she is on niraparib maintenance therapy who?presented to the hospital this morning with 9 hour history of increasing abdominal pain not resolving with home efforts including effort to eliminate stool and a warm bath.? Describes the pain as constant but in waves it gets worse and then better.? Has never had pain like this previously.? Had some nausea and vomiting.? Denies fevers, rigors, diaphoresis.? On presentation to the emergency department she is found to have a small-bowel obstruction. Ovarian cancer diagnosed April 2022, status post hysterectomy, bilateral salpingo oophorectomy, colonic and splenic resection.? Subsequently underwent chemotherapy.? Tells me she has been doing relatively well since then.? Also notes a sense of constipation since then for which she uses daily enemas. CT scan of abdomen and pelvis demonstrates small bowel obstruction. Patient treated conservatively in over the course of her short stay in the hospital she improved back to baseline. Tolerated increased diet and activities. Status at Discharge Functional status at discharge: independent ambulation Overall status at discharge: patient is back to baseline Time Spent with Patient Time attestation: Total time spent providing and/or coordinating discharge services: Time spent: Greater than 30 minutes Exam Narrative: Exam Narrative: Alert, oriented to self, place, time, situation. Friendly, cooperative, articulate. Mood and affect are congruent. Lungs are clear to auscultation. Heart tones with regular rhythm, normal S1-S2, without murmur, gallop, or rub. Abdomen with active bowel sounds, soft, nontender. Independent transfer, station, and gait. Tolerating NG tube out. Tolerating feedings. Back to baseline. Const: Vital Signs, click to edit/add: Vital Signs - 24 hr 03/06/22 15:52 03/06/22 15:52 03/06/22 17:37 Temperature 98.7 F Pulse Rate [Right Radial] 88 87 Respiratory Rate 16 16 Blood Pressure [Ri ght Arm] 126/81 Pulse Oximetry 98 98 Oxygen Delivery Me thod Room Air Room Air 03/06/22 19:51 03/06/22 19:54 03/06/22 22:36 Temperature 99 F 99 F 98.8 F Pulse Rate [Right Radial] 97 89 Respiratory Rate 16 16 Blood Pressure [Ri ght Arm] 124/73 111/73 Pulse Oximetry 97 100 Oxygen Delivery Me thod Room Air Room Air 03/06/22 22:38 03/07/22 02:54 03/07/22 07:30 Temperature 99 F 98.5 F Pulse Rate [Right Radial] 89 85 83 Respiratory Rate 16 16 16 Blood Pressure [Ri ght Arm] 125/75 126/84 Pulse Oximetry 95 99 Oxygen Delivery Me thod Room Air Room Air 03/07/22 08:00 03/07/22 11:30 Temperature 98.4 F Pulse Rate [Right Radial] 83 87 Respiratory Rate 16 16 Blood Pressure [Ri ght Arm] 126/92 H Pulse Oximetry 98 Oxygen Delivery Me thod Room Air Documenting provider has reviewed patient's vital signs: yes DS: Data Data Completed and Pending Labs on day of discharge: Labs from last 24 hours 03/07/22 03/07/22 07:02 07:02 WBC 3.73 L RBC 3.84 L Hgb 12.9 Hct 38.6 MCV 101 H MCH 34 MCHC 33 Plt Count 225 Sodium 138 Potassium 4.1 Chloride 105 Carbon Dioxide 23 BUN 13 Creatinine 0.6 Estimated Creat Clear 102.66 Estimated GFR 112 Glucose 97 Calcium 8.8 Phosphorus 3.1 Albumin 4.2 Preliminary micro results at discharge 03/06/22 10:36 Urine Culture - Preliminary Urine,Clean Catch < 100,000 COL/ML MIXED GRAM POSITIVE JAILENE ISOLATED NO FURTHER WORKUP Imaging CT scan - abdomen: Attestation: I have reviewed the pertinent imaging results. Radiologist's impression: FINDINGS: Lower chest: The hypoattenuating focus along the superior surface of the liver under the diaphragm is not seen on today`s study. Liver: Low-density lesion previously seen adjacent to the falciform fissure is no longer seen. Spleen: S/p splenectomy. Pancreas: Unremarkable.? Gallbladder and bile ducts: Unremarkable.? Adrenal glands: Unremarkable.? Kidneys: Unremarkable.? GI tract: Air and fluid-filled loops of dilated small bowel measure up to 3.2 cm in diameter. Transition point may be within the left upper quadrant where there is a small bowel feces sign and a pointed appearance of the small bowel on image 21 series 4. Small amount of simple free fluid in the pelvis. No bowel wall thickening or pneumatosis. The colon is decompressed. Vascular structures: Unremarkable.? Lymph nodes: Unremarkable.? Pelvic Organs: Status post hysterectomy. Bones: Unremarkable for age.? IMPRESSION: Small-bowel obstruction. Transition point may be within the left upper quadrant as described above, possibly from adhesion from prior splenectomy. Small amount of simple free fluid in the pelvis. Status post hysterectomy and splenectomy. Low-density focus under the diaphragm is not seen on today`s study nor is the low density lesion in the liver. These findings suggest improvement in metastatic disease. Discharge Plan Discharge Disposition: Home, Self-Care Date of Admission: 03/06/22 15:01 Attending Provider on Discharge: Chava Bhakta Consulting Providers: Manasa Hernandez Primary Care Provider: Provider,Not a Local Condition: Improved Anticipated Discharge Date/Time: 03/07/22 02:00 Discharge Medications: New ondansetron 4 mg tablet,disintegrating 4 mg PO Q8H Qty: 15 0RF Continued Vyvanse 70 mg capsule 70 mg PO DAILY Label Comments: TAKE 1 CAPSULE BY MOUTH ONCE DAILY IN THE MORNING Zejula 200 mg PO DAILY Discharge Orders: Discharge Order (Routine); Ordered 03/07/22 Ordered By: Chava Bhakta Patient Education: Ondansetron (By mouth), Soft Diet (GEN), Bowel Obstruction (GEN) Activity Restrictions/Additional Instructions: 1. Establish primary clinical manager home care in [place], [place], and see in next 1-2 weeks; 2. Consider working closely with target aircraft controller/superintendent terminal; 3. Continue to work with oncology team at [place], [place]; 4. Return to hospital or clinic sooner as warranted. Activity Level: No Restrictions and Activity as Tolerated Discharge Diet: Regular and Low Fiber Diet Detail: Adequate protein and fat/oil Follow Up Appointments: Kathleen Dubon MD [Staff Physician] - 03/16/22 9:30 am Provider,Not a Local [Primary Care Provider] - Forms: [employer] Info Instructions
== END 2022-03-07 13:20 | disposition home or self-care (01) | DRG 390 ==
LOC: ED 02:43 → MEDSURG 03:59
PROVIDERS: Internal Medicine; Admitting Provider Family Medicine; Emergency Provider Family Medicine; Visit Provider Family Medicine
DX: K56.609 Unspecified intestinal obstruction, unspecified as to partial versus complete obstruction (principal); Z85.43 Personal history of malignant neoplasm of ovary; Z90.710 Acquired absence of both cervix and uterus; Z90.79 Acquired absence of other genital organ(s); Z90.722 Acquired absence of ovaries, bilateral
CPT/HCPCS: 36415; 71045; 74177; 80048; 80069; 80076; 81001; 83605; 83690; 85025; 85027; 87086; 87631; 99285; A9270; G0378; J1170; J1200; J1885; J2270; J2405; J7030; Q9967

== ENCOUNTER 2022-03-16 10:15 | Outpatient (CLI) | payer OTHER, SELFPAY ==
--- OUTSIDE RECORDS SUMMARY | 2022-03-16 10:25 | XMS_ITS | Clinical Summary ---
:1975 Author Organization [employer] [facility] [place] [address] Care Team Providers Name Role Phone Aruna Medina [facility] Primary Care Provider Allergies Active Allergy [...] BABY GIRL ( KATHR YN) Delivery Location: [facility] Comments: ARSALAN:ALLEN AMARAL:MAURO Myles Last Filed Vital [...] Completed 01/05/2010 Medical Devices Implanted Type Area Relief Driller Device Shelf Model / Identifier Expiration Serial / Lot Date Sling Miniarc Precise - [id number] N/A: [employer] 06/26/2015 [id number] / Implanted: Qty: 1 on 01/03/2013 by Ashley Gardner MD at [facility] / [id number] Description: MINI ARC 'PRECISE' MID-URET HRAL SLING Results Not on filefrom Last 3 Months Insurance Payer Benefit Plan / Subscriber ID Effective Dates Phone Addre ss Type Group [employer] [id number] 2016-Present [address] [address] [place] [address] Advance Directives Latest Code Status on File Code Status Date Activated Date Inactivated Comments Full Code 01/07/2013 8:40 AM 01/07/2013 11:39 AM Full Code 01/03/2010 2:08 PM 01/05/2010 4:29 PM Full Code 01/03/2010 6:21 AM 01/03/2010 6:52 AM Care Teams Ict Programmer Relationship Specialty Start Date End Date Aruna Medina CNM PCP - General Obstetrics and Gynecology 06/30/16
--- OUTSIDE RECORDS SUMMARY | 2022-03-16 10:26 | XMS_ITS | Encounter Summary ---
:1975 Author Organization [facility] Address [address] [place] [address] Care Team Providers Name Role Phone Elsewhere, Pcp Primary Care Provider Unavailable Encounter Details Date Type Department Care Team Description 02/08/2022 Clinical Communication Department of Walter Barnhart Oncology in M.D., Ph.D. [place], [place] [address] [facility] [address] [place] [phone] Social History Tobacco Use Types Packs/Day Years [...] or relatives? How often do you attend mu-ism or 1 to 4 times per year 02/09 latter-day services? Do you belong to any clubs or Yes 02/26/2021 organizations such as mu-ism groups, unions, fraternal or athletic groups, or [...] Laboratory Medicine Debbie Ivey M.D. [address] [place] [address] 04/13/2022 Office Visit Oncology Walter Barnhart M.D., Ph.D. [address] [place] [address] documented as of this encounter Visit Diagnoses Not on filedocumented in this encounter Care Teams On Line Csr Relationship Specialty Start Date End Date Elsewhere, Pcp PCP - General Internal Medicine 07/08/21 documented as of this encounter
--- OUTSIDE RECORDS SUMMARY | 2022-03-16 10:26 | XMS_ITS | Encounter Summary ---
:1975 Author Organization [facility] Address [address] [place] [address] Care Team Providers Name Role Phone Elsewhere, Pcp Primary Care Provider Unavailable Encounter Details Date Type Department Care Team Description 01/03/2022 Hospital Encounter Department of Walter Barnhart ant Neoplasm Laboratory Medicine SKelly, Ph. D. Of Ovary Laterality and Pathology, [address] [place] [address] Unknown (HCC) [facility] in [facility] [address] [place] [phone] 200 [facility] (Work) [place], [place] [phone] (Fax) [phone] Social History Tobacco Use Types Packs/Day Years [...] mouth 60 capsule 11 0 09/12/2021 daily. bpjxckf-lgsi-lklts-oreg-c Take 1 tablet by 0 isra 100 mg-150 mg- 50 mouth daily. mg-150 mg capsule documented as of this encounter Plan of Treatment Upcoming Encounters Date Type Specialty Care Team Description 04/11/2022 Clinical Communication Admitting/Central Scheduling 04/13/2022 Appointment Laboratory Medicine Debbie Ivey M.D. [address] [place] [phone] 04/13/2022 Office Visit Oncology Walter Barnhart M.D., Ph.D. [address] [place] [phone] documented as of this encounter Procedures Procedure [...] Signature HBs Antigen, S Negative Negative 01/03/2022 [facility] 1:32 PM CDT Specimen Anatomical Collection Method Collection Time Receive d Time (Source) Location / / Volume Laterality Blood (Blood, 01/03/2022 9:20 AM 01/04/20 22 Venous) CDT 12:23 PM CDT Walter Barnhart M.D., Ph.D. LAB MICROBIOLOGY - BLOOD O RDERASHANTANU Performing Organization Address [facility] Phon e Number [facility] [address] [place]MA Dominguez[address] [place] [address] Laboratory Medicine and Pathology [address] [place] [address] Dr. MARQUEZ HCV Ab Scrn w/Reflex to HCV PCR, Serum (01/03/2022 9:20 AM CDT) athologist Signature HCV Ab Screen, Negative Negative 01/03/2022 [facility] S 1:49 PM CDT Comment: Tnitli-dl-syqsfa ratio is <1.00 . Specimen Anatomical Collection Method Collection Time Receive d Time (Source) Location / / Volume Laterality Blood (Blood, 01/03/2022 9:20 AM 01/04/20 Venous) CDT 12:23 PM CDT Walter Barnhart M.D., Ph.D. LAB MICROBIOLOGY - BLOOD O RDERABLES Performing Organization Address City/[facility] Phon e Number [facility] [address] [place] [address] SUPPORT CENTER [facility] [place] [address] Laboratory Medicine and Pathology [address] [place] [address] Dr. MARQUEZ HIV-1/-2 Ag and Ab Screen, Plasma (01/03/2022 9:20 AM CDT) athologist Signature HIV-1/-2 Ag Negative Negative 01/03/2022 [facility] and Ab Screen, 2:01 PM [...] - BLOOD O RDERABLES Performing Organization Address City/[facility] Code Phon e Number [facility] DRIVE [address] MARQUEZ [address] CENTER [facility] [place] [address] Laboratory Medicine and Pathology [address] [place] [address] Dr. MARQUEZ Creatinine with Estimated GFR (01/03/2022 9:20 AM CDT) athologist Signature Creatinine 0.78 0.59 - 01/03/2022 [facility] 1.04 mg/dL 10:17 AM CDT eGFR-Non >90 >=60 01/03/2022 [facility] Black/ mL/min/BSA 10:17 AM CDT Samoan Comment: ----ADDITIONAL INFORMATION---- Estimated GFR calculated using [...] LAB BLOOD ADD-ON Performing Organization Address City/State/[facility] Phon e Number [facility] - [address] [place] [address] 05 [facility] [place] [address] Laboratories-[facility] 200 [facility] CBC with Differential, Blood (01/03/2022 9:20 [...] Ph.D. LAB BLOOD ADD-ON Performing Organization Address City/[facility] Phon e Number [facility] - [address] [place], [place] [address] [facility] [place], [place] [phone] [place] [address] 200 [facility] Bilirubin, Total (01/03/2022 9:20 AM CDT) P athologist Signature Bilirubin, 1.0 <=1.2 mg/dL 01/03/2022 [facility] Total, S 10:17 AM CDT Specimen Anatomical Collection Method Collection Time Receive d Time (Source) Location / / Volume Laterality Blood (Blood, 01/03/2022 9:20 AM 01/04/20 22 Venous) CDT 10:00 AM CDT Walter Barnhart M.D., Ph.D. LAB BLOOD ADD-ON Performing Organization Address City/[facility] Phon e Number [facility] - [address] [place] [address] 05 [place], [place] [phone] [place] [address] (ABNORMAL) AST (Aspartate Aminotransferase) (01/03/2022 9:20 AM [...] Ph.D. LAB BLOOD ADD-ON Performing Organization Address City/[facility] Phon e Number [facility] - [address] [place], [place] [address] [facility] [address] (ABNORMAL) Alkaline Phosphatase (01/03/2022 9:20 AM [...] Organization Address City/State/ZIP Code Phon e Number [facility] - [address] [place], [place] [address] [facility] [place] [address] Laboratories-[facility] [address] documented in this encounter Visit Diagnoses Diagnosis Malignant Neoplasm Of Ovary Laterality U nknown (HCC) documented in this encounter Care Teams Pattern Worker Relationship Specialty Start Date End Date Elsewhere, Pcp PCP - General Internal Medicine 07/08/21 documented as of this encounter
--- OUTSIDE RECORDS SUMMARY | 2022-03-16 10:26 | XMS_ITS | Encounter Summary ---
:1975 Author Organization [facility] Address [address] [place] [address] Care Team Providers Name Role Phone Elsewhere, Pcp Primary Care Provider Unavailable Encounter Details Date Type Department Care Team Description 01/03/2022 Infusion Department of Oncology Marychuy Kapoor, Malignant Neoplasm Of in [facility] rojelio DENNY, C.N.P., Ovary Laterality [address] [facility] M.S.N. Unknown (HCC) [place], [place] [address] [facility] [address] [place], [place] [phone] (Wo rk) Social History Tobacco Use Types [...] or relatives? How often do you attend mormonism or 1 to 4 times per year 02/09 yazdanism services? Do you belong to any clubs or Yes 02/26/2021 organizations such as mormonism groups, unions, fraternal or athletic groups, or [...] Appointment Laboratory Medicine Debbie Ivey M.D. [address] [place] [phone] 04/13/2022 Office Visit Oncology Walter Barnhart M.D., Ph.D. 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
--- OUTSIDE RECORDS SUMMARY | 2022-03-16 10:26 | XMS_ITS | Encounter Summary ---
:1975 Author Organization [facility] Address [address] [place] [address] Care Team Providers Name Role Phone Elsewhere, Pcp Primary Care Provider Unavailable Reason for Referral MRI/CAT/PET Scan (Routine) - Closed Specialty Diagnoses / Procedures Referred By Contact Refer red To Contact Radiology Diagnoses Malignant Neoplasm Of Ovary Laterality Unknown (HCC) Walter Barnhart M.D., [facility] Procedures CT Abdomen Pelvis with IV Contrast CT Abdomen Pelvis without and with IV Contrast MS CT ABD&PELVIS WO/W CNTRST MS CT ABD&PELVIS W CNTRST Ph.D. [address] [place], [place] [phone] Referral ID Status Reason Start Date Expiration Date Visits Requ ested Visits Authorized [id number] Closed 12/22/2021 06/23/2022 1 1 MRI/CAT/PET Scan (Routine) - Closed Specialty Diagnoses / Procedures Referred By Contact Refer red To Contact Radiology Diagnoses Malignant Neoplasm Of Ovary Laterality Unknown (HCC) Walter Barnhart M.D., [facility] Procedures CT Chest with IV Contrast MS CT THORAX W CNTRST Ph.D. 200 [place], [place] [phone] Referral ID Status Reason Start Date Expiration Date Visits Requ ested Visits Authorized [id number] Closed 12/22/2021 06/23/2022 1 1 Reason for Visit MRI/CAT/PET Scan (Routine) - Closed Specialty Diagnoses / Procedures Referred By Contact Refer red To Contact Radiology Diagnoses Malignant Neoplasm Of Ovary Laterality Unknown (HCC) Walter Barnhart M.D., [facility] Procedures CT Chest with IV Contrast MS CT THORAX W CNTRST Ph.D. [address] [place] [phone] Referral ID Status Reason Start Date Expiration Date Visits Requ ested Visits Authorized [id number] Closed 12/22/2021 06/23/2022 1 1 Encounter Details Date Type Department Care Team Description 01/03/2022 Hospital Encounter Department of Walter Barnhart Malign ant Neoplasm Radiology, Angel De La Cruz M.D., Ph.D. Of Ovary Laterality [facility], in 200 [facility] Unknown (HCC) [facility] [phone] [place] [address] [place], [place] (Work) [phone] Social History Tobacco Use Types Packs/Day Years [...] or relatives? How often do you attend congregation or 1 to 4 times per year 02/09 moravian services? Do you belong to any clubs or Yes 02/26/2021 organizations such as congregation groups, unions, fraternal or athletic groups, or [...] for the very basics like Not h haely at all 02/26/2021 food, housing, medical care, [...] mouth 60 capsule 11 0 09/12/2021 daily. lesuqrc-lnxi-afpeg-oreg-c Take 1 tablet by 0 isra 100 [...] Appointment Laboratory Medicine Debbie Ivey M.D. [address] [place] [phone] 04/13/2022 Office Visit Oncology Walter Barnhart M.D., Ph.D. [address] [place] [phone] documented as of this encounter Procedures Procedure [...] No size significant hilar, mediastinal, or axill siha lymphadenopathy. Unchanged tiny pericardial effusion. No aggressive osseous lesions. [place] right rib fracture. Similar small lucency in the T9 vertebral body. Performed in conjunction with a CT scan of the abdomen, which will be reported separately. 3D maximum intensity projection (MIP) im ages were created on a dependent workstation as ordered by the treating provider and reviewed by [facility] radiologist to increase sensitivity for detection [...] by the treating provider and reviewed by [facility] radiologist to increase sensitivity for detection [...] Orders documented in this encounter Care Teams Maintenance Team Leader Relationship Specialty Start Date End Date Elsewhere, Pcp PCP - General Internal Medicine 07/08/21 documented as of this encounter
--- OUTSIDE RECORDS SUMMARY | 2022-03-16 10:26 | XMS_ITS | Encounter Summary ---
:1975 Author Organization [facility] Address [address] [place] [address] Care Team Providers Name Role Phone Elsewhere, Pcp Primary Care Provider Unavailable Encounter Details Date Type Department Care Team Description 01/02/2022 Clinical Communication Visit Review in [place], [place] [address] [place], [place] [phone] Social History Tobacco Use Types Packs/Day Years [...] Appointment Laboratory Medicine Debbie Ivey M.D. [address] [place] [phone] 04/13/2022 Office Visit Oncology Walter Barnhart M.D., Ph.D. [address] [place] [phone] documented as of this encounter Visit Diagnoses Not on filedocumented in this encounter Care Teams Inside Sales Representative Relationship Specialty Start Date End Date Elsewhere, Pcp PCP - General Internal Medicine 07/08/21 documented as of this encounter
--- OUTSIDE RECORDS SUMMARY | 2022-03-16 10:26 | XMS_ITS | Encounter Summary ---
:1975 Author Organization [facility] Address [address] [place] [address] Care Team Providers Name Role Phone Elsewhere, Pcp Primary Care Provider Unavailable Reason for Visit Reason Comments Updated Genetic Test Results Encounter Details Date Type Department Care Team Description 02/06/2022 Documentation Department of Medical Calvin Alba Updated Genetic Test Genetics in [phone] Results [place], [place] (Work) [address] [place] [address] Social History Tobacco Use Types Packs/Day Years [...] documented as of this encounter Progress Notes Deysi Alba Daniel - 02/06/2022 3:07 PM CDT Images from the original note were not included. We received an amended report for Angelica's genetic testing. Angelica was seen in the Department of Clinical Genomics on 03/02/2021 by Claudtete Bansal CGC due to their personal diagnosis of cancer. They elected to pursue the [facility] with [facility] Cancer Panel through [employer]. 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 [employer] [facility] issued a reclassification report noting the VUS in APC has now been downgraded to a variant of no clinical significance. Therefore, it is unlikely that this variant causes disease. The recommended care plan from the patient's initial result note remains applicable. This information was communicated to the patient via the patient online services portal by our genetic counseling admissions assistant. documented in this encounter Plan of Treatment Upcoming Encounters Date Type Specialty Care Team Description 04/11/2022 Clinical Communication Admitting/Central Scheduling 04/13/2022 Appointment Laboratory Medicine Debbie Ivey M.D. [address] [place] [address] 04/13/2022 Office Visit Oncology Walter Barnhart M.D., Ph.D. [address] [place] [phone] documented as of this encounter Visit Diagnoses Not on filedocumented in this encounter Care Teams Component Assembler Supervisor Relationship Specialty Start Date End Date Elsewhere, Pcp PCP - General Internal Medicine 07/08/21 documented as of this encounter
--- OUTSIDE RECORDS SUMMARY | 2022-03-16 10:26 | XMS_ITS ---
:1975 Author Organization [facility] Address [address] [place] [address] Care Team Providers Name Role Phone Elsewhere, Pcp Primary Care Provider Unavailable Active Problems Problem Noted Date Personal History Of Malignant Neoplasm Of Ovary 2020 Education Need Ostomy 05/04/2021 Obstruction Intestinal 04/25/2021 Neutropenia Drug Induced 04/07/2021 Malignant Neoplasm Of Ovary Laterality Unknown 021 Mass Ovary 02/16/2021 Current Oncology Plans CARBOplatin AUC 6 / PACLitaxel ( RETAIL SERVICE SPECIALIST )Plan Start Date:02/23/2021 Plan Provider:Walter Barnhart M.D., [...] treatments are documented for this patient in [facility]. Treatments may have been administered in another system.
--- OUTSIDE RECORDS SUMMARY | 2022-03-16 10:26 | XMS_ITS | Encounter Summary ---
:1975 Author Organization [facility] Address [address] [place] [address] Care Team Providers Name Role Phone Elsewhere, Pcp Primary Care Provider Unavailable Encounter Details Date Type Department Care Team Description 02/07/2022 Specialty Pharmacy [facility] Michelle Mcclain, [address] Dorothy Briscoe [place] [address] [address] [facility] [phone] [place] [address] Social History Tobacco Use Types Packs/Day Years [...] or relatives? How often do you attend jainism or 1 to 4 times per year 02/09 pentecostal services? Do you belong to any clubs or Yes 02/26/2021 organizations such as jainism groups, unions, fraternal or athletic groups, or [...] were asked via phone by a patient urgent care technician. (reviewed at or around patient requested refill ) HISTORY OF PRESENT ILLNESS Ms. Angelica Yang is a 46 y.o. female, who is followed by the specialty pharmacy service for Zejula (niraparib) . (Indication: ovarian cancer) Patient reported reassessment questions and responses: Informant: patient How comfortable are you understanding the medication(s) you receive from [facility]?: Very Comfortable Side Effects Requiring Attention: [...] reviewing refill history in the [facility] Specialty Pharmacy record. The patient/caregiver reports [...] refer to the oncology provider's assessment/plan within [facility] on the following date: 01/03/2022. 4. Quality [...] Laboratory Medicine Debbie Ivey M.D. [address] [place] [address] 04/13/2022 Office Visit Oncology Walter Barnhart M.D., Ph.D. [address] [place] [phone] documented as of this encounter Visit Diagnoses Not on filedocumented in this encounter Care Teams Hat Brim And Crown Laminating Operator Relationship Specialty Start Date End Date Elsewhere, Pcp PCP - General Internal Medicine 07/08/21 documented as of this encounter
--- OUTSIDE RECORDS SUMMARY | 2022-03-16 10:26 | XMS_ITS | Clinical Summary ---
:1975 Author Organization [facility] Address [address] [place] [address] Care Team Providers Name Role Phone Elsewhere, Pcp Primary Care Provider Unavailable Source Comments Patient records contain information from all sites at [facility]. For routine questions regarding patient records, call [phone] during business hours, M-F 8:00 AM - 5:00 PM Central Time. Record requests for emergency care only can be directed to [phone] at any time.[facility] Allergies Active Allergy Reactions Severity Noted Date Comments Blood-Group Specific Other (see comments) 06/16/2009 Patient has a Substance Nonspecfic Anti body. Rh factor. Bloo d products may be delayed. Draw 2 purple top tubes and 1 red top tube for Ty pe and Screen +/or Typ e and Crossmatch orde rs. Medications Medication Sig Dispensed Refills Start Date End Date Status qdrrxrj-gjjx-pyqez-ore Take 1 tablet by 0 Active g-capryl [...] Encounters Date Type Specialty Care Team Description 03/13/2022 Ancillary Procedure Radiology Marychuy Kapoor Neoplasm M, STORE SHOPPER, C.N.P., Of Ovary La terality M.S.N. Unknown (HCC) 03/03/2022 Clinical Oncology Malathi Bear, [facility] Communication R.N. 02/08/2022 Clinical Oncology Block, Walter De La Cruz M.D., Ph.D. 02/07/2022 Specialty Pharmacy Pharmacy SarahiMichelle morel PharmChapincitoDChapincito, R.Ph. 02/06/2022 Documentation Clinical Genomics Deysi Alba Evelynwong ed Genetic M Test Results 01/11/2022 Specialty Pharmacy Pharmacy Brunilda Tamayo PharmMickey., R.Ph. 01/03/[address] [facility] [facility] Malignant Ne oplasm M, STORE SHOPPER, C.N.P., Of Ovary La terality M.S.N. Unknown (HCC) 01/03/2022 [facility] Malignant Ne oplasm M, STORE SHOPPER, C.N.P., Of Ovary La terality M.S.N. Unknown (HCC) (Primary Dx) 01/03/2022 Hospital Encounter Radiology Block, Walter leon Neoplasm Kelly De La Cruz, Ph.D. Of Ovary Late rality Unknown (HCC) 01/03/2022 Hospital Encounter Laboratory Block, Walter leon Neoplasm Medicine Kelly De La Cruz, Ph.D. Of Ovary Late rality Unknown (HCC) 01/02/2022 Clinical Admitting/Central Communication Scheduling from Last 3 Months Immunizations Name Administration Dates Next Due H1N1 All Forms 05/05/2009 HepA / HepB 12/19/2013, 06/16/2013, 02/12/2013 Hib (PRP-OMP) (PedvaxHIB) 05/12/2021 Influenza (IM) Preservative Free 02/28/2013 Influenza TIV (IM) 03/24/2009, 05/15/2008, 03/20/2006, 05/06/2004 Influenza, Seasonal, Injectable 03/09/2014, 03/24/2009, 1210/2007, 03/20/2006 MCV4 (Menveo) 07/11/2021, 05/12/2021 MenB (BEXSERO) [...] 1 to 4 times per year 02/09 amish services? Do you belong to any clubs [...] Appointment Laboratory Medicine Debbie Ivey M.D. [address] [place] [phone] 04/13/2022 Office Visit Oncology Walter Barnhart M.D., Ph.D. [address] [place] [phone] Health Maintenance Due Date Last Done Comments [...] Meningococcal Vaccine (3 - Risk 07/11/2026 07/11/2021, 1207/2020 2-dose series) Pneumococcal vaccine (0-64 years) 07/11/2026 07/11/2021, (3 - PPSV23 or PCV20) DTaP,Tdap,and Td Vaccines (3 - Td 07/11/2031 07/11/2021, or Tdap) Hepatitis B Vaccines Completed 12/19/2013, 06/16/2013, 02/12/2013 HIB Vaccines Completed 05/12/2021 HIV Screening Completed 01/03/2022 Hepatitis C Screening Completed 01/03/2022 Medical Devices Implanted Type Area Compliance And Control Analyst Device Identifier Shelf Model / Expiration Serial / Date Lot Clp Hrzn Ti 6 Norm Swanson[employer]onal [employer] - [id number] Hardware [employer] [id number] 07/20/2025 [id number] / Implanted: Qty: 1 on 05/09/2021 by Denisha Bliss M.D. at [facility] e.g. / pins/screws/ [id number] rods Procedures Procedure Name Priority Date/Time Associated Comments Diagnosis INTERPRETATION OF RAD - Routine 03/13/2022 8:40 Malignant Result s for OUTSIDE CT ABDOMEN AND (most inpatients AM CDT Neoplasm Of t his procedure OR PELVIS and all Ovary Laterality are in the outpatients) Unknown (HCC) results section. HEMATOLOGY/ONCOLOGY - Routine 03/06/2022 1:10 Res ults for BLOOD, EXTERNAL LAB PM CDT this pro cedure RESULTS are in the results section. OUTSIDE DX CHEST Routine 03/06/2022 3:40 Results for AM CDT this procedure are in the results section. OUTSIDE CT BODY Routine 03/06/2022 1:35 Results f or AM CDT this procedure are in the results section. HEMATOLOGY/ONCOLOGY - Routine 03/03/2022 1:45 Res ults for BLOOD, EXTERNAL LAB PM CDT this pro cedure RESULTS are in the results section. HEMATOLOGY/ONCOLOGY - Routine 03/03/2022 1:45 Res ults for BLOOD, EXTERNAL LAB PM CDT this pro cedure RESULTS are in the results section. HEMATOLOGY/ONCOLOGY - Routine 03/03/2022 1:45 Res ults for BLOOD, EXTERNAL LAB PM CDT this pro cedure RESULTS are in the results section. HEMATOLOGY/ONCOLOGY - Routine 02/01/2022 Result s for [...] are in the Unknown (HCC) results section. from Last 3 Months Results Interpretation of Outside CT Abdomen and or Pelvis (03/13/2022 8:40 AM CDT) Anatomical Region Laterality Modality Abdomen, Pelvis, Abdominal RST LOS, Abdominal ARZ LOS, N/A Computed Tomography Abdominal FLA LOS, Other Specimen (Source) Anatomical Collection Method Collection Time Re ceived Time Location / / Volume Laterality 03/14/2022 7:25 AM CDT Impressions 03/14/2022 7:42 AM CDT Mechanical small bowel obstruction Narrative 03/14/2022 7:42 AM CDT EXAM: ??INTERPRETATION OF OUTSIDE CT ABDOMEN AND OR PELVIS COMPARISON: ??01/03/2022 FINDINGS: Interpretation of outside CT of the abdo men and pelvis with intravenous contrast 03/06/2022 New twisting of the mesentery with disto rtion of small bowel loops resulting in mechanical small bowel obstruction at the level of the pr oximal-mid ileum, best appreciated as one reviews series 2 images 54-76. Small bowel measures up to 3 cm in transverse dimension (series 2 image 67. Distended stomach. No pneumatosis. No free air. Ne w small volume ascites. No other significant change. Hysterectom y, oophorectomies, omentectomy, splenectomy, and left hemicolectomy. The subtle nodularity adj acent the proximal stomach is less apparent, possibly related to gastric distention. Stable no nobstructing stone lower right kidney; residual contrast in the urinary collecting systems could obs cure other small stones. No hydronephrosis. Tiny hepatic cyst near at the dome of the liver. Procedure Note Herbie Sánchez M.D. - 03/14/2022Forma tting of this note might be different from the original. EXAM: INTERPRETATION OF OUTSIDE CT ABDOM EN AND OR PELVIS COMPARISON: 01/03/2022 FINDINGS: Interpretation of outside CT of the abdo men and pelvis with intravenous contrast 03/06/2022 New twisting of the mesentery with disto rtion of small bowel loops resulting in mechanical small bowel obstruction at the level of the pr oximal-mid ileum, best appreciated as one reviews series 2 images 54-76. Small bowel measures up to 3 cm in transverse dimension (series 2 image 67. Distended stomach. No pneumatosis. No free air. Ne w small volume ascites. No other significant change. Hysterectom y, oophorectomies, omentectomy, splenectomy, and left hemicolectomy. The subtle nodularity adj acent the proximal stomach is less apparent, possibly related to gastric distention. Stable no nobstructing stone lower right kidney; residual contrast in the urinary collecting systems could obs cure other small stones. No hydronephrosis. Tiny hepatic cyst near at the dome of the liver. IMPRESSION: Mechanical small bowel obstruction Marychuy Kapoor APRN C.N.P., M.S.N. IMG CT PROCEDURE S (ABNORMAL) Hematology/Oncology - Blood, External Lab Results (03/06/2022 1:10 PM CDT)Only the most recent of5 resultswithin the time period is included. Analysis Performed At [facility] Time Signature EXT Hemoglobin 14.1 12.0 - OTHER 16.0 (SPECIFY IN OFFICE SERVICES ASSISTANT) EXT Leukocytes 7.58 4.50 - OTHER 11.00 (SPECIFY IN OFFICE SERVICES ASSISTANT) EXT Platelet 242 140 - 440 OTHER Count (SPECIFY IN OFFICE SERVICES ASSISTANT) EXT AST 42 (A) 12 - 35 OTHER (SPECIFY IN OFFICE SERVICES ASSISTANT) EXT ALT 27 4 - 35 OTHER (SPECIFY IN OFFICE SERVICES ASSISTANT) EXT Alkaline 127 40 - 150 OTHER Phosphatase (SPECIFY IN OFFICE SERVICES ASSISTANT) EXT Bilirubin 0.1 0.0 - 0.5 OTHER Direct mg/dL (SPECIFY IN OFFICE SERVICES ASSISTANT) EXT Bilirubin, 1.7 (A) 0.1 - 1.5 OTHER Total mg/dL (SPECIFY IN OFFICE SERVICES ASSISTANT) EXT Sodium 137 mmol/L OTHER (SPECIFY IN OFFICE SERVICES ASSISTANT) EXT Potassium 4.0 OTHER (SPECIFY IN OFFICE SERVICES ASSISTANT) EXT Calcium, 10.3 OTHER Total (SPECIFY IN OFFICE SERVICES ASSISTANT) EXT Creatinine 0.8 mg/dL OTHER (SPECIFY IN OFFICE SERVICES ASSISTANT) EXT Albumin 5.0 3.3 - 5.0 OTHER g/dL (SPECIFY IN OFFICE SERVICES ASSISTANT) EXT Glucose, 180 125 OTHER Min (SPECIFY IN OFFICE SERVICES ASSISTANT) EXT BUN (Blood 14 OTHER Urea Nitrogen) (SPECIFY IN OFFICE SERVICES ASSISTANT) Specimen (Source) Anatomical Collection Method Collection Time Re ceived Time Location / / Volume Laterality Blood 03/06/2022 1:10 PM CDT Historical Provider LAB BLOOD NON ADD-ON Performing Organization Address City/[facility] Phon e Number OTHER (SPECIFY IN OFFICE SERVICES ASSISTANT) OTHER (SPECIFY IN OFFICE SERVICES ASSISTANT) N/A XR chest 1V portable-Outside Chest Xray (03/06/2022 3:40 AM CDT) Specimen (Source) Anatomical Location Collection Method / Collectio n Time Received Time / Laterality Volume Narrative IIMI - 03/10/2022 2:31 PM CDT This order has been created and auto-finalized to support the import of outside images. If available, original i nterpretation can be found on the Media Tab in Chart Review, in Document V iewer, or as an image in QREADS. If a re-interpretation or overread is re quired please follow defined workflow. ?? Provider Not In System IMG DIAGNOSTIC IMAGING PROCE RUST Performing Organization Address [facility] Code Phon e Number IIMI IIMS NA CT ABDOMEN PELVIS W CON-Outside CT Body (03/06/2022 1:35 AM CDT) Specimen (Source) Anatomical Location Collection Method / Collectio n Time Received Time / Laterality Volume Narrative IIMI - 03/10/2022 2:34 PM CDT This order has been created and auto-finalized to support the import of outside images. If available, original i nterpretation can be found on the Media Tab in Chart Review, in Document V iewer, or as an image in QREADS. If a re-interpretation or overread is re quired please follow defined workflow. ?? Provider Not In System IMG CT PROCEDURES Performing Organization Address City/[facility] Code Phon e Number IIMI IIMS NA CT Abdomen Pelvis with IV Contrast (01/03/2022 [...] by the treating provider and reviewed by [facility] radiologist to increase sensitivity for detection [...] by the treating provider and reviewed by [facility] radiologist to increase sensitivity for detection [...] athologist Signature HIV-1/-2 Ag Negative Negative 01/03/2022 [facility] and Ab Screen, 2:01 PM CDT P [...] - BLOOD O ELVI Performing Organization Address [facility] Phon e Number [facility] [address] [place] [phone] [address] [place] [address] Laboratory Medicine and Pathology [address] [place] [address] Dr. MARQUEZ HCV Ab Scrn w/Reflex to HCV PCR, Serum (01/03/2022 9:20 AM CDT) athologist Signature HCV Ab Screen, Negative Negative 01/03/2022 [facility] S 1:49 PM CDT Comment: Yvopps-ej-jompmf ratio is <1.00 . Specimen Anatomical Collection Method Collection Time Receive d Time (Source) Location / / Volume Laterality Blood (Blood, 01/03/2022 9:20 AM 01/04/20 Venous) CDT 12:23 PM CDT Walter Barnhart M.D., Ph.D. LAB MICROBIOLOGY - BLOOD O ELVI Performing Organization Address City/[facility] Code Phon e Number [address] ALMA [address] [place] [address] Laboratory Medicine and Pathology [address] [place] [address] Dr. MARQUEZ Hepatitis B Surface Antigen (01/03/2022 9:20 AM CDT) athologist Signature HBs Antigen, S Negative Negative 01/03/2022 [facility] 1:32 PM CDT Specimen Anatomical Collection Method Collection Time Receive d Time (Source) Location / / Volume Laterality Blood (Blood, 01/03/2022 9:20 AM 01/04/20 Venous) CDT 12:23 PM CDT Walter Barnhart M.D., Ph.D. LAB MICROBIOLOGY - BLOOD O RDERABLES Performing Organization Address City/State/ZIP Code Phon e Number [facility] [address] [place], [place] [address] [place] [address] Laboratory Medicine and Pathology [address] [place] CBC with Differential, Blood (01/03/2022 [...] Volume Laterality Blood (Blood, 01/03/2022 9:20 AM 07/26/20 22 9:44 Venous) CDT AM CDT Walter Barnhart M.D., Ph.D. LAB BLOOD ADD-ON Performing Organization Address City/State/ZIP Code Phon e Number [facility] - [address] [place], [place] [address] [facility] [place] [address] Laboratories-[facility] [address] Cancer Antigen 125 (CA 125) (01/03/2022 9:20 AM CDT) P athologist Signature Cancer Ag 125 7 <46 U/mL 01/04/2022 [facility] (CA 125), S 12:19 PM CDT Comment: ----ADDITIONAL INFORMATION---- The testing method is an electrochemilum inescence assay manufactured by [employer] and performed on the Michela system. [...] Venous) CDT 10:58 AM CDT Marychuy Kapoor APRN C.N.P., M.S.N. LAB BLOOD ADD-ON Performing Organization Address City/[facility]/ZIP Code Phon e Number [facility] [address] [place], [place] [address] [address] [facility] [address] Laboratory Medicine and Pathology [address] [...] Organization Address City/State/ZIP Code Phon e Number [facility] - [address] [place], [place] [address] [place] [address] (ABNORMAL) Alkaline Phosphatase (01/03/2022 9:20 AM CDT) athologist Signature Alkaline 150 (H) 35 - 104 01/03/2022 [facility] Phosphatase, S U/L 10:17 AM CDT Specimen Anatomical Collection Method Collection Time Receive d Time (Source) Location / / Volume Laterality Blood (Blood, 01/03/2022 9:20 AM 01/04/20 Venous) CDT 10:00 AM CDT Walter Barnhart M.D., Ph.D. LAB BLOOD ADD-ON Performing Organization Address City/[facility] Phon e Number [facility] - [id number] [place] [address] Creatinine with Estimated GFR (01/03/2022 9:20 AM CDT) athologist Signature Creatinine 0.78 0.59 - 01/03/2022 [facility] 1.04 mg/dL 10:17 AM CDT eGFR-Non >90 >=60 01/03/2022 [facility] Black/ mL/min/BSA 10:17 AM CDT [place] Comment: ----ADDITIONAL INFORMATION---- Estimated GFR calculated using [...] Ph.D. LAB BLOOD ADD-ON Performing Organization Address City/[facility] Phon e Number [facility] - [address] [place], [place] [address] [place] [address] [facility] Bilirubin, Total (01/03/2022 9:20 AM CDT) [...] Phon e Number [facility] - [facility] [address] [place], [place] [address] [place] [address] Formerly [facility] [address] [facility] from Last 3 Months Insurance Payer Benefit Plan / Subscriber ID Effective Phone Address T ype Group Dates GENERIC GENERIC [id number] 2020-Pres [phone] [address] COMMERCIAL COMMERCIAL ent [id number] [place] [address] Advance Directives For more information, please contact: [phone] Latest Code Status on File Code Status Date Activated Date Inactivated Comments Full Code 05/09/2021 6:40 PM 05/14/2021 1:07 PM Full Code: Discussed Full Code 05/09/2021 7:00 AM 05/09/2021 6:40 PM Full Code: Discussed Full Code 04/25/2021 5:50 AM 04/25/2021 7:47 PM Full Code: Discussed Care Teams Microbiology Analyst Relationship Specialty Start Date End Date Elsewhere, Pcp PCP - General Internal Medicine 07/08/21
--- OUTSIDE RECORDS SUMMARY | 2022-03-16 10:26 | XMS_ITS | Encounter Summary ---
:1975 Author Organization [facility] Address [address] [place] [address] Care Team Providers Name Role Phone Elsewhere, Pcp Primary Care Provider Unavailable Reason for Referral Outpatient (Routine) - Authorized Specialty Diagnoses / Procedures Referred By Contact Refer red To Contact Oncology Debbie Ivey M. D. [address] [phone] Referral ID Status Reason Start Date Expiration Date Visits V isits Requested Authorized [id number] Authorized 01/03/2022 01/03/2023 1 1 Reason for Visit Outpatient (Routine) - Closed Specialty Diagnoses / Procedures Referred By Contact Refer red To Contact Oncology Walter Barnhart M. D., Ph.D. [address] [phone] Referral ID Status Reason Start Date Expiration Date Visits Requ ested Visits Authorized [id number] Closed 11/10/2021 11/10/2022 1 1 Encounter Details Date Type Department Care Team Description 01/03/2022 Office Visit Department of Marychuy Kapoor Malignan t Neoplasm Of Oncology in MEDICAL PAYMENT POSTER, C.N.P., Ovary Laterali ty [place], [place] M.S.N. Unknown (HCC) (Primary [address] Dx) [place] [phone] Social History Tobacco Use Types Packs/Day Years [...] or relatives? How often do you attend confucianist or 1 to 4 times per year 02/09 christianity services? Do you belong to any clubs or Yes 02/26/2021 organizations such as confucianist groups, unions, fraternal or athletic groups, or [...] in 2020; BRCAnalysis with My[facility] panel from [facility]. Variant of Uncertain Significance (VUS) found in APC gene specifically named [id number] aka [id number]). Somatic testing: HRD Positive, BRCA negative 02/03/2021 [...] Chemotherapy CARBOplatin AUC 6 / PACLitaxel ( STEEL RULE INSPECTOR ) Start Date: 02/25/2021 Completed 3 cycles [...] Chemotherapy CARBOplatin AUC 6 / PACLitaxel ( STEEL RULE INSPECTOR ) Start Date: 02/25/2021 Adjuvant chemotherapy, cycles [...] can be placed on the vaccine trial (GU0894.01 (ECTx) CY2603.01; A phase I trial evaluating a mutanome-directed [...] a pleasure to meet with Ms. Angelica aYng today. She is a 46 y.o. woman [...] evidence of disease. Regarding her participation in EW7766.01, the phase I trial looking at viral [...] Laboratory Medicine Debbie Ivey M.D. [address] [place] [phone] 04/13/2022 Office Visit Oncology Walter Barnhart M.D., Ph.D. [address] [place] [phone] Scheduled Orders Name Type Priority Associated Diagnoses [...] Routine Expec jace: visit (clinic) 04/05/2022 Surveillance; STEEL RULE INSPECTOR (Approxima te), Expires: 04/05/2023 documented as of [...] Cancer Ag 125 7 <46 U/mL 01/04/2022 [facility] (CA 125), S 12:19 PM CDT [...] Address City/State/ZIP Code Phon e Number [facility] [address] [place] [address] [address] [facility] [place] [address] Laboratory Medicine and Pathology [address] 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
--- OUTSIDE RECORDS SUMMARY | 2022-03-16 10:26 | XMS_ITS | Encounter Summary ---
:1975 Author Organization [facility] Address [address] [place] [address] Care Team Providers Name Role Phone Elsewhere, Pcp Primary Care Provider Unavailable Encounter Details Date Type Department Care Team Description 01/11/2022 Specialty Pharmacy [facility] Brunilda Tamayo, [address] Dorothy Briscoe Pharm.D., R.Ph. [place], [place] [address] [facility] [address] [place], [place] [phone] (Wo rk) Social History Tobacco Use Types [...] were asked via phone by a patient career technology teacher. (reviewed at or around patient requested refill ) HISTORY OF PRESENT ILLNESS Ms. Angelica Yang is a 46 y.o. female, who [facility] (Indication: hematology/oncology) Patient reported reassessment questions and responses: Informant: patient How comfortable are you understanding the medication(s) you receive from [facility]?: Very Comfortable Side Effects Requiring Attention: no [...] above and reviewing refill history in the [facility] record. The patient/caregiver reports appropriate [...] Laboratory Medicine Debbie Ivey M.D. [address] [place] [address] 04/13/2022 Office Visit Oncology Walter Barnhart M.D., Ph.D. [address] [place] [address] documented as of this encounter Visit Diagnoses Not on filedocumented in this encounter Care Teams Client Services Analyst Relationship Specialty Start Date End Date Elsewhere, Pcp PCP - General Internal Medicine 07/08/21 documented as of this encounter
--- OUTSIDE RECORDS SUMMARY | 2022-03-16 10:26 | XMS_ITS | Encounter Summary ---
:1975 Author Organization [facility] Address [address] [place] [address] Care Team Providers Name Role Phone Elsewhere, Pcp Primary Care Provider Unavailable Reason for Visit Reason Comments Alert Labs Encounter Details Date Type Department Care Team Description 03/03/2022 Clinical Communication Department of Oncology Malathi Bear Alert Labs in [facility] [phone] [address] [facility] (Work) [place] [address] Social History Tobacco Use Types Packs/Day Years [...] 1 to 4 times per year 02/09 orthodoxy services? Do you belong to any clubs [...] this encounter Miscellaneous Notes Telephone Encounter - Malathi Bear R.N. - 03/06/2022 4:38 PM CDT Emelia aware. Wait for pt reply on if she taking the PARP. She needs to stop taking it for one week at least and repeat labs due to ANC Telephone Encounter - Shamika Cavanaugh - 03/06/2022 4:03 PM CDT Labs have been entered and are ready for review. Telephone Encounter - Malathi Bear R.N. - 03/06/2022 2:18 PM CDT And pt response on if she is taking or holding the PARP Telephone Encounter - Malathi Bear R.N. - 03/06/2022 2:17 PM CDT Waiting on Bili T Telephone Encounter - Shamika Cavanaugh - 03/06/2022 10:09 AM CDT Labs have been entered and are ready for review. Telephone Encounter - Shamika Cavanaugh - 03/06/2022 7:57 AM CDT Labs have been entered and are ready for review. documented in this encounter Plan of Treatment Upcoming Encounters Date Type Specialty Care Team Description 04/11/2022 Clinical Communication Admitting/Central Scheduling 04/13/2022 Appointment Laboratory Medicine Debbie Ivey M.D. [address] [place] [phone] 04/13/2022 Office Visit Oncology Walter Barnhart M.D., Ph.D. [address] [place] [phone] documented as of this encounter Procedures Procedure Name Priority Date/Time Associated Diagnosis Comme nts HEMATOLOGY/ONCOLOGY Routine 03/03/2022 1:45 PM Re sults for this - BLOOD, EXTERNAL CDT procedure are in LAB RESULTS the results section. HEMATOLOGY/ONCOLOGY Routine 03/03/2022 1:45 PM Re sults for this - BLOOD, EXTERNAL CDT procedure are in LAB RESULTS the results section. HEMATOLOGY/ONCOLOGY Routine 03/03/2022 1:45 PM Re sults for this - BLOOD, EXTERNAL CDT procedure are in LAB RESULTS the results section. documented in this encounter Results Hematology/Oncology - Blood, External Lab Results (03/03/2022 1:45 PM CDT) athologist Signature EXT Bilirubin, 1.5 0.1 - 1.5 OTHER (SPECIFY Total mg/dL IN SCENE AND LIGHTING DESIGN LECTURER) Specimen (Source) Anatomical Collection Method Collection Time Re ceived Time Location / / Volume Laterality Blood 03/03/2022 1:45 PM CDT Historical Provider LAB BLOOD NON ADD-ON Performing Organization Address City/State/ZIP Code Phon e Number OTHER (SPECIFY IN SCENE AND LIGHTING DESIGN LECTURER) OTHER (SPECIFY IN SCENE AND LIGHTING DESIGN LECTURER) N/A Hematology/Oncology - Blood, External Lab Results (03/03/2022 1:45 PM CDT) athologist Signature EXT Cancer 6 OTHER (SPECIFY Antigen 125 (Ca IN SCENE AND LIGHTING DESIGN LECTURER) 125) Comment: <=38 Specimen (Source) Anatomical Collection Method Collection Time Re ceived Time Location / / Volume Laterality Blood 03/03/2022 1:45 PM CDT Historical Provider LAB BLOOD NON ADD-ON Performing Organization Address City/[facility] Phon e Number OTHER (SPECIFY IN SCENE AND LIGHTING DESIGN LECTURER) OTHER (SPECIFY IN SCENE AND LIGHTING DESIGN LECTURER) N/A (ABNORMAL) Hematology/Oncology - Blood, External Lab Results (03/03/2022 1:45 PM CDT) [facility] Time Signature EXT Hemoglobin 13.0 12.0 - OTHER 16.0 (SPECIFY IN SCENE AND LIGHTING DESIGN LECTURER) EXT Leukocytes 3.10 (A) 4.50 - OTHER 11.00 (SPECIFY IN SCENE AND LIGHTING DESIGN LECTURER) EXT Absolute 0.90 (A) 1.7 - 7.0 OTHER Neutrophil (SPECIFY IN Count SCENE AND LIGHTING DESIGN LECTURER) EXT Platelet 263 140 - 440 OTHER Count (SPECIFY IN SCENE AND LIGHTING DESIGN LECTURER) EXT AST 53 (A) 12 - 35 OTHER (SPECIFY IN SCENE AND LIGHTING DESIGN LECTURER) EXT ALT 27 4 - 35 OTHER (SPECIFY IN SCENE AND LIGHTING DESIGN LECTURER) EXT Creatinine 0.6 0.5 - 1.5 OTHER mg/dL (SPECIFY IN SCENE AND LIGHTING DESIGN LECTURER) EXT eGFR-Non 112 OTHER Black/ (SPECIFY IN Palestinian SCENE AND LIGHTING DESIGN LECTURER) Specimen (Source) Anatomical Collection Method Collection Time Re ceived Time Location / / Volume Laterality Blood 03/03/2022 1:45 PM CDT Historical Provider LAB BLOOD NON ADD-ON Performing Organization Address City/State/ZIP Code Phon e Number OTHER (SPECIFY IN SCENE AND LIGHTING DESIGN LECTURER) OTHER (SPECIFY IN SCENE AND LIGHTING DESIGN LECTURER) N/A documented in this encounter Visit Diagnoses Not on filedocumented in this encounter Care Teams Video Production Assistant Relationship Specialty Start Date End Date Elsewhere, Pcp PCP - General Internal Medicine 07/08/21 documented as of this encounter
--- OUTSIDE RECORDS SUMMARY | 2022-03-16 10:26 | XMS_ITS | Encounter Summary ---
:1975 Author Organization [facility] Address [address] [place] [address] Care Team Providers Name Role Phone Elsewhere, Pcp Primary Care Provider Unavailable Encounter Details Date Type Department Care Team Description 03/13/2022 Ancillary Procedure Department of Marychuy Kapoor Neoplasm Radiology in M, BRICKLAYER PAVING BRICK, C.N.P., Of Ovary La terality [place], M.S.N. Unknown (HCC) [place] [address] [facility] [address] [place] [phone] Social History Tobacco Use Types Packs/Day Years [...] slept in a group home (including now)? Education Answer Date Recorded [...] Laboratory Medicine Debbie Ivey M.D. [address] [place] [phone] 04/13/2022 Office Visit Oncology Walter Barnhart M.D., Ph.D. [address] [place] [phone] documented as of this encounter Procedures Procedure Name Priority Date/Time Associated Comments Diagnosis INTERPRETATION OF RAD - Routine 03/13/2022 8:40 Malignant Result s for OUTSIDE CT ABDOMEN (most inpatients AM CDT Neoplasm Of this procedure AND OR PELVIS and all Ovary Laterality are in the outpatients) Unknown (HCC) results section. documented in this encounter Results Interpretation of Outside CT Abdomen and [...] IMPRESSION: Mechanical small bowel obstruction Marychuy Kapoor APRN, C.N.P., M.S.N. 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
--- OUTSIDE RECORDS SUMMARY | 2022-03-16 10:27 | XMS_ITS | Encounter Summary ---
:1975 Author Organization [facility] Address [address] [place] [address] Care Team Providers Name Role Phone Elsewhere, [...] [place] DEXAMETHASONE SODIUM PHOS Ph.D. [address] [place] [phone] Referral ID Status Reason Start Date Expiration Date Visits V isits Requested Authorized [id number] Authorized 02/17/2021 02/17/2022 12 12 Encounter Details Date Type Department Care Team Description 07/08/2021 Hospital Encounter Department of Marychuy Kapoor Neoplasm Of Ovary Laterality Unknown (HCC); Laboratory Medicine DENNY Sanchez, C.N.P., Neut rophitesh Drug Induced (HCC) in [facility] [address] [facility] [address] [place] [phone] Social History Tobacco Use Types Packs/Day Years [...] or relatives? How often do you attend zoroastrian or 1 to 4 times per year 02/09 synagogue services? Do you belong to any clubs or Yes 02/26/2021 organizations such as zoroastrian groups, unions, fraternal or athletic groups, or [...] Sig Dispensed Refills Start Date End Date [id number]- Take 1 tablet by 0 capryl 100 [...] Appointment Laboratory Medicine Debbie Ivey M.D. [address] [place] [phone] 04/13/2022 Office Visit Oncology Walter Barnhart M.D., Ph.D. [address] [place] [phone] documented as of this encounter Procedures Procedure Name Priority Date/Time Associated Comments Diagnosis CBC CHEMO - NO ALERTS Routine 07/08/2021 11:21 Malignant Neopl asm Results for this AM BANKING PARALEGAL Of Ovary procedure are i n Laterality Unknown the resul ts (HCC) section. Neutropenia Drug Induced (HCC) CANCER AG 125 (CA 125), Routine 07/08/2021 11:21 Malignant Juan plasm Results for this S AM BANKING PARALEGAL Of Ovary procedure are i n Laterality Unknown the resul ts (HCC) section. Neutropenia Drug Induced (HCC) ASPARTATE Routine 07/08/2021 11:21 Malignant Neoplasm Resul ts for this AMINOTRANSFERASE (AST), AM BANKING PARALEGAL Of [place]vary proc edure are in S/P Laterality Unknown the resul ts (HCC) section. Neutropenia Drug Induced (HCC) CREATININE WITH EGFR, Routine 07/08/2021 11:21 Malignant Neopl asm Results for this S/P AM BANKING PARALEGAL Of Ovary procedure are i n Laterality Unknown the resul ts (HCC) section. Neutropenia Drug Induced (HCC) BILIRUBIN, TOT, S/P Routine 07/08/2021 11:21 Malignant Neoplas m Results for this AM BANKING PARALEGAL Of Ovary procedure are i n Laterality Unknown the resul ts (HCC) section. Neutropenia Drug Induced (HCC) documented in this encounter Results Creatinine with Estimated GFR (07/08/2021 11:21 AM BANKING PARALEGAL) athologist Signature Creatinine 0.65 0.59 - 07/08/2021 NPRG 1.04 mg/dL 12:51 PM BANKING PARALEGAL eGFR-Black/Afric >90 >=60 07/08/2021 NPRG an Ukrainian mL/min/BSA 12:51 PM BANKING PARALEGAL Comment: ----ADDITIONAL INFORMATION---- Estimated GFR calculated using the 2009 CKD_EPI creatinine equation. eGFR Non-Black/ >90 >=60 mL/min/BSA 07/08/2021 12:51 PM BANKING PARALEGAL NPRG Comment: ----ADDITIONAL INFORMATION---- Estimated GFR calculated using the 2009 CKD_EPI creatinine equation. Specimen Anatomical Collection Method Collection Time Receive d Time (Source) Location / / Volume Laterality Blood (Blood, 07/08/2021 11:21 07/08/2021 Venous) AM BANKING PARALEGAL 12:02 PM BANKING PARALEGAL Marychuy Kapoor APRN, C.N.P., M.S.N. LAB BLOOD ADD-ON Performing Organization Address City/State/ZIP Code Phon e Number [facility]- [address] [place], [place] [address] [place] [address] [place] [address] [facility] [address] (ABNORMAL) CBC, Chemotherapy, No Alerts (07/08/2021 11:21 AM BANKING PARALEGAL) Analysis Performed At Patho logist Time Signature Hemoglobin 11.3 (L) 11.6 - 07/08/2021 NPRG 15.0 g/dL 12:20 PM BANKING PARALEGAL Platelet Count 418 (H) 157 - 371 07/08/2021 NPRG x10(9)/L 12:20 PM BANKING PARALEGAL Leukocytes 4.6 3.4 - 9.6 07/08/2021 NPRG x10(9)/L 12:20 PM BANKING PARALEGAL Neutrophils 2.09 1.56 - 07/08/2021 NPRG 6.45 12:20 PM BANKING PARALEGAL x10(9)/L Specimen Anatomical Collection Method Collection Time Receive d Time (Source) Location / / Volume Laterality Blood (Blood, 07/08/2021 11:21 07/08/2021 Venous) AM BANKING PARALEGAL 12:02 PM BANKING PARALEGAL Sabine Correa APRNNAnthony., M.S.N. LAB BLOOD ADD-ON Performing Organization Address City/[facility] Code Phon e Number [address] LAB NPRG [address] Bilirubin, Total (07/08/2021 11:21 AM BANKING PARALEGAL) P athologist Signature Bilirubin, 0.4 <=1.2 mg/dL 07/08/2021 NPRG Total, P 12:51 PM BANKING PARALEGAL Specimen Anatomical Collection Method Collection Time Receive d Time (Source) Location / / Volume Laterality Blood (Blood, 07/08/2021 11:21 07/08/2021 Venous) AM BANKING PARALEGAL 12:02 PM BANKING PARALEGAL Carly Correa APRN.N.P., M.S.N. LAB BLOOD ADD-ON Performing Organization Address City/[facility] Phon e Number [place] [phone] [address] [facility] [place] [phone] AST (Aspartate Aminotransferase) (07/08/2021 11:21 AM BANKING PARALEGAL) Patholo gist Method Time Signature Aspartate 35 8 - 43 07/08/2021 NPRG Aminotransferase U/L 12:51 PM BANKING PARALEGAL (AST), P Specimen Anatomical Collection Method Collection Time Receive d Time (Source) Location / / Volume Laterality Blood (Blood, 07/08/2021 11:21 07/08/2021 Venous) AM BANKING PARALEGAL 12:02 PM BANKING PARALEGAL Marychuy Kapoor APRN, C.N.P., M.S.N. LAB BLOOD ADD-ON Performing Organization Address City/[facility] Phon e Number [facility]- [address] [place], [place] [address] [place] [address] [facility] [place] [address] [place] [address] [place] Cancer Antigen 125 (CA 125) (07/08/2021 11:21 AM BANKING PARALEGAL) P athologist Signature Cancer Ag 125 8 <46 U/mL 07/08/2021 AUST (CA 125), S 10:31 PM BANKING PARALEGAL Comment: Biotin has been identified by the daisy sarabiar as a potential interfering substance. ??Higher concentr ations of biotin may be found in multivitamins, hair/nail supple ments, and workout supplements. ??If the result does not [facility] clinical observations, repeat testing after patient [...] Blood (Blood, 07/08/2021 11:21 07/08/2021 Venous) AM BANKING PARALEGAL 10:00 PM BANKING PARALEGAL Marychuy Kapoor APRN, C.N.P., M.S.N. 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
--- OUTSIDE RECORDS SUMMARY | 2022-03-16 10:27 | XMS_ITS | Encounter Summary ---
:1975 Author Organization [facility] Address [address] [place] [address] Care Team Providers Name Role Phone Elsewhere, Pcp Primary Care Provider Unavailable Reason for Visit Reason Comments Immunizations Encounter Details Date Type Department Care Team Description 07/11/2021 Nurse Only Section of Preventive, Jessica Uribe Im munizations Transportation and Kaylah BALDWIN Occupational Medicine in [address] [place], [place] [address] [place] [phone] [place] [phone] Social History Tobacco Use Types Packs/Day Years [...] or relatives? How often do you attend anglican or 1 to 4 times per year 02/09 pentecostalism services? Do you belong to any clubs or Yes 02/26/2021 organizations such as anglican groups, unions, fraternal or athletic groups, or [...] Laboratory Medicine Debbie Ivey M.D. [address] [place] [phone] 04/13/2022 Office Visit Oncology Walter Barnhart M.D., Ph.D. [address] [place] [phone] documented as of this encounter Visit Diagnoses Diagnosis Neutropenia Drug Induced (HCC) - Primary documented in this encounter Care Teams Corporate Learning Consultant Relationship Specialty Start Date End Date Elsewhere, Pcp PCP - General Internal Medicine 07/08/21 documented as of this encounter
--- OUTSIDE RECORDS SUMMARY | 2022-03-16 10:27 | XMS_ITS | Encounter Summary ---
:1975 Author Organization [facility] Address [address] [place] [address] Care Team Providers Name Role Phone Elsewhere, Pcp Primary Care Provider Unavailable Encounter Details Date Type Department Care Team Description 11/11/2021 Orders Only Pharmacy Prior Auth Paula Khan [phone] Social History Tobacco Use Types Packs/Day Years [...] or relatives? How often do you attend caodaism or 1 to 4 times per year 02/09 cheondoism services? Do you belong to any clubs or Yes 02/26/2021 organizations such as caodaism groups, unions, fraternal or athletic groups, or [...] Appointment Laboratory Medicine Debbie Ivey M.D. [address] [place] [phone] 04/13/2022 Office Visit Oncology Walter Barnhart M.D., Ph.D. 200 [place] [phone] documented as of this encounter Visit Diagnoses Not on filedocumented in this encounter Care Teams Drapery Sewer Hand Relationship Specialty Start Date End Date Elsewhere, Pcp PCP - General Internal Medicine 07/08/21 documented as of this encounter
--- OUTSIDE RECORDS SUMMARY | 2022-03-16 10:27 | XMS_ITS | Encounter Summary ---
:1975 Author Organization [facility] Address [address] [place] [address] Care Team Providers Name Role Phone Elsewhere, Pcp Primary Care Provider Unavailable Encounter Details Date Type Department Care Team Description 08/05/2021 Clinical Communication Department of Oncology Candie Monahan, in [facility] [address] [facility] [address] [place] [phone] Social History Tobacco Use Types Packs/Day Years [...] Laboratory Medicine Debbie Ivey M.D. [address] [place] [phone] 04/13/2022 Office Visit Oncology Walter Barnhart M.D., Ph.D. [address] [place] [phone] documented as of this encounter Visit Diagnoses Not on filedocumented in this encounter Care Teams Teen Counselor Relationship Specialty Start Date End Date Elsewhere, Pcp PCP - General Internal Medicine 07/08/21 documented as of this encounter
--- OUTSIDE RECORDS SUMMARY | 2022-03-16 10:27 | XMS_ITS | Encounter Summary ---
:1975 Author Organization [facility] Address [address] [place] [address] Care Team Providers Name Role Phone Elsewhere, Pcp Primary Care Provider Unavailable Reason for Visit Reason Comments Immunizations Encounter Details Date Type Department Care Team Description 07/08/2021 Clinical Communication Department of Denisha Oviedo Immunizations Obstetrics and EKelly Gynecology in [address] [place] [address] [place] [phone] [place], [place] [phone] (Work) [phone] Social History Tobacco Use Types Packs/Day Years [...] Uribe APRN, C.N.P. - 07/08/2021 12:26 PM MACHINING AND ASSEMBLY SUPERVISOR Orders placed for her vaccines and an appointment for 07/11/21. Please schedule. INING AND ASSEMBLY SUPERVISOR Telephone Encounter - Arlene Archibald - 07/08/2021 12:11 PM CST Patient was to have immunizations at the [facility] today and she was turned away stating that she needed to establish care before they would give them to her. She wonders if these can be done when she comes for chemotherapy on Sunday, 07/11. The call was transferred from Medical Oncology. Per Jossie in Med Onc, their BONE GRINDER said the orders would need to come from Dr. Oviedo. Please call patient to make necessary arrangements for Sunday if at all possible. INING AND ASSEMBLY SUPERVISOR documented in this encounter Plan of Treatment Upcoming Encounters Date Type Specialty Care Team Description 04/11/2022 Clinical Communication Admitting/Central Scheduling 04/13/2022 Appointment Laboratory Medicine Debbie Ivey M.D. [address] [place] [phone] 04/13/2022 Office Visit Oncology Walter Barnhart M.D., Ph.D. [address] [place] [phone] documented as of this encounter Visit Diagnoses Not on filedocumented in this encounter Care Teams Molecular Geneticist Relationship Specialty Start Date End Date Elsewhere, Pcp PCP - General Internal Medicine 07/08/21 documented as of this encounter
--- OUTSIDE RECORDS SUMMARY | 2022-03-16 10:27 | XMS_ITS | Encounter Summary ---
:1975 Author Organization [facility] Address [address] [place] [address] Care Team Providers Name Role Phone Elsewhere, Pcp Primary Care Provider Unavailable Reason for Visit Reason Comments Labs Only Encounter Details Date Type Department Care Team Description 10/26/2021 Clinical Communication Department of Aruna Hernández Labs Only Oncology in M.S.N., R.N. [place], [place] [address] [facility] [address] [place] [phone] Social History Tobacco Use Types Packs/Day Years [...] 1 to 4 times per year 02/09 tenriism services? Do you belong to any clubs [...] Appointment Laboratory Medicine Debbie Ivey M.D. [address] [place] [phone] 04/13/2022 Office Visit Oncology Walter Barnhart M.D., Ph.D. [address] [place] [phone] documented as of this encounter Procedures Procedure [...] (A) 12 - 35 OTHER (SPECIFY IN ROOFING APPRENTICE) EXT ALT 21 4 - 35 OTHER (SPECIFY IN ROOFING APPRENTICE) EXT Bilirubin, 1.2 0.1 - 1.5 OTHER (SPECIFY Total mg/dL IN ROOFING APPRENTICE) EXT Cancer 5 OTHER (SPECIFY Antigen 125 IN ROOFING APPRENTICE) (Ca 125) Comment: <=38 EXT Creatinine 0.7 0.5 - 1.5 mg/dL OTHER (SP ECIFY IN ROOFING APPRENTICE) Specimen (Source) Anatomical Collection Method Collection Time Re ceived Time Location / / Volume Laterality Blood 10/25/2021 1:00 PM CDT Narrative This result has an attachment that is no t available. Historical Provider LAB BLOOD NON ADD-ON Performing Organization Address City/State/ZIP Code Phon e Number OTHER (SPECIFY IN ROOFING APPRENTICE) OTHER (SPECIFY IN ROOFING APPRENTICE) N/A Hematology/Oncology - Blood, External Lab Results (10/25/2021 1:00 PM CDT) P athologist Signature EXT Hemoglobin 13.4 12.0 - OTHER (SPECIFY 15.5 IN ROOFING APPRENTICE) EXT Leukocytes 5.10 5.00 - OTHER (SPECIFY 10.00 IN ROOFING APPRENTICE) EXT Absolute 2.52 1.70 - OTHER (SPECIFY Neutrophil 7.00 IN ROOFING APPRENTICE) Count EXT Platelet 287 150 - 450 OTHER (SPECIFY Count IN ROOFING APPRENTICE) Specimen (Source) Anatomical Collection Method Collection Time Re ceived Time Location / / Volume Laterality Blood 10/25/2021 1:00 PM CDT Narrative This result has an attachment that is no t available. Historical Provider LAB BLOOD NON ADD-ON Performing Organization Address City/State/ZIP Code Phon e Number OTHER (SPECIFY IN ROOFING APPRENTICE) OTHER (SPECIFY IN ROOFING APPRENTICE) N/A documented in this encounter Visit Diagnoses Not on filedocumented in this encounter Care Teams Plastic Mould Maker Relationship Specialty Start Date End Date Elsewhere, Pcp PCP - General Internal Medicine 07/08/21 documented as of this encounter
--- OUTSIDE RECORDS SUMMARY | 2022-03-16 10:27 | XMS_ITS | Encounter Summary ---
:1975 Author Organization [facility] Address [address] [place] [address] Care Team Providers Name Role Phone Elsewhere, Pcp Primary Care Provider Unavailable Reason for Visit Reason Comments Rx Prior Authorization AUGUSTUS DENIED - ZEJULA 100 MG Encounter Details Date Type Department Care Team Description 09/16/2021 Clinical Communication Pharmacy Prior Auth Hardeep Chan Rx Prior RO I. Authorization (AUGUSTUS [phone] DENIED - ZEJULA 100 (Work) MG) Social [...] 1 to 4 times per year 02/09 mosque services? Do you belong to any clubs [...] Appointment Laboratory Medicine Debbie Ivey M.D. [address] [place] [phone] 04/13/2022 Office Visit Oncology Walter Barnhart M.D., Ph.D. [address] [place] [phone] documented as of this encounter Visit Diagnoses Not on filedocumented in this encounter Care Teams Director Revenue Relationship Specialty Start Date End Date Elsewhere, Pcp PCP - General Internal Medicine 07/08/21 documented as of this encounter
--- OUTSIDE RECORDS SUMMARY | 2022-03-16 10:27 | XMS_ITS | Encounter Summary ---
:1975 Author Organization [facility] Address [address] [place] [address] Care Team Providers Name Role Phone Elsewhere, Pcp Primary Care Provider Unavailable Encounter Details Date Type Department Care Team Description 08/05/2021 Clinical Communication Department of Oncology Candie Monahan, in [facility] [address] [facility] [address] [place] [phone] Social History Tobacco Use Types Packs/Day Years [...] Monahan APRN, C.N.P. - 08/05/2021 1:45 PM CAT TENDER I returned a call to Ms. Yang [...] can look at the imaging with him. TENDER documented in this encounter Plan of Treatment Upcoming Encounters Date Type Specialty Care Team Description 04/11/2022 Clinical Communication Admitting/Central Scheduling 04/13/2022 Appointment Laboratory Medicine Debbie Ivey M.D. 200 [place] [phone] 04/13/2022 Office Visit Oncology Walter Barnhart M.D., Ph.D. [address] [place] [phone] documented as of this encounter Visit Diagnoses Not on filedocumented in this encounter Care Teams Software Maintenance Engineer Relationship Specialty Start Date End Date Elsewhere, Pcp PCP - General Internal Medicine 07/08/21 documented as of this encounter
--- OUTSIDE RECORDS SUMMARY | 2022-03-16 10:27 | XMS_ITS | Encounter Summary ---
:1975 Author Organization [facility] Address [address] [place] [address] Care Team Providers Name Role Phone Elsewhere, Pcp Primary Care Provider Unavailable Reason for Visit Reason Comments Labs Only Encounter Details Date Type Department Care Team Description 11/02/2021 Clinical Communication Department of Aruna Hernández Labs Only Oncology in M.S.N., R.N. [place], [place] [address] [facility] [address] [place] [phone] Social History Tobacco Use Types Packs/Day Years [...] Laboratory Medicine Debbie Ivey M.D. [address] [place] [phone] 04/13/2022 Office Visit Oncology Walter Barnhart M.D., Ph.D. [address] [place] [phone] documented as of this encounter Procedures Procedure Name Priority Date/Time Associated Diagnosis Comme nts HEMATOLOGY/ONCOLOGY Routine 11/01/2021 1:15 PM Re sults for this - BLOOD, EXTERNAL CDT procedure are in LAB RESULTS the results section. documented in this encounter Results (ABNORMAL) Hematology/Oncology - Blood, External Lab Results (11/01/2021 1:15 PM CDT) P athologist Signature EXT Hemoglobin 13.1 12.0 - OTHER (SPECIFY 15.5 IN CIGAR MACHINE FEEDER) EXT Leukocytes 5.01 5.00 - OTHER (SPECIFY 10.00 IN CIGAR MACHINE FEEDER) EXT Absolute 2.60 1.70 - OTHER (SPECIFY Neutrophil 7.00 IN CIGAR MACHINE FEEDER) Count EXT Platelet 252 150 - 450 OTHER (SPECIFY Count IN CIGAR MACHINE FEEDER) EXT AST 45 (A) 12 - 35 OTHER (SPECIFY IN CIGAR MACHINE FEEDER) EXT ALT 21 4 - 35 OTHER (SPECIFY IN CIGAR MACHINE FEEDER) EXT Bilirubin, 1.0 0.1 - 1.5 OTHER (SPECIFY Total mg/dL IN CIGAR MACHINE FEEDER) EXT Creatinine 0.7 0.5 - 1.5 OTHER (SPECIFY mg/dL IN CIGAR MACHINE FEEDER) Specimen (Source) Anatomical Collection Method Collection Time Re ceived Time Location / / Volume Laterality Blood 11/01/2021 1:15 PM CDT Historical Provider LAB BLOOD NON ADD-ON Performing Organization Address City/State/ZIP Code Phon e Number OTHER (SPECIFY IN CIGAR MACHINE FEEDER) OTHER (SPECIFY IN CIGAR MACHINE FEEDER) N/A documented in this encounter Visit Diagnoses Not on filedocumented in this encounter Care Teams Mold Cleaner Relationship Specialty Start Date End Date Elsewhere, Pcp PCP - General Internal Medicine 07/08/21 documented as of this encounter
--- OUTSIDE RECORDS SUMMARY | 2022-03-16 10:27 | XMS_ITS | Encounter Summary ---
:1975 Author Organization [facility] Address [address] [place] [address] Care Team Providers Name Role Phone Elsewhere, Pcp Primary Care Provider Unavailable Encounter Details Date Type Department Care Team Description 10/14/2021 Specialty Pharmacy [facility] [place], Malignant Neoplasm Pharmacy Azucena Montes De Oca, Of [place] Laterality [address] Pharm.D., R.P h. Unknown (HCC) [address] (Primary Dx) [place] [phone] Social History Tobacco Use Types Packs/Day Years [...] to males. ??? Educational resource/decision support tools: https://www.[employer]/en/miguel angelgucci and Patient SupportProgram ???My Start, My Way??? Kit. Also, [facility] The patient was attentive and ready to learn. They verbalized understanding and are in agreement with the plan for taking this new regimen. They were advised to contact the prescriber concerning symptoms or side effects as mentioned above. The importance of adherence to the treatment plan was emphasized in regard to success of therapy. Allergy, past sensitivity, medication and health history considered at disability counselor (renal function if available). To optimize [...] apparent. Patient is eligible for service through [facility]. 2. Potential drug-drug interactions No [...] The patient has decided to use the [facility]. This patient does not meet the definition of high risk by [facility]SP definition. Follow-up: 1 month(s) Azucena Malagon, Pharm.D., R.Ph. documented in this encounter Plan of Treatment Upcoming Encounters Date Type Specialty Care Team Description 04/11/2022 Clinical Communication Admitting/Central Scheduling 04/13/2022 Appointment Laboratory Medicine Debbie Ivey M.D. [address] [place] [phone] 04/13/2022 Office Visit Oncology Walter Barnhart M.D., Ph.D. 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
--- OUTSIDE RECORDS SUMMARY | 2022-03-16 10:27 | XMS_ITS | Encounter Summary ---
:1975 Author Organization [facility] Address [address] [place] [address] Care Team Providers Name Role Phone Elsewhere, Pcp Primary Care Provider Unavailable Reason for Visit Reason Comments Labs Only Encounter Details Date Type Department Care Team Description 09/13/2021 Clinical Communication Department of Mamie Rees Labs Only Oncology in D, M.S.N., R.N. [place], [place] [address] [facility] [address] [place] [phone] Social History Tobacco Use Types Packs/Day Years [...] PM CDT Verified Telephone Encounter - Shamika Cavanaugh - 09/13/2021 12:00 PM CDT Labs have been entered and are ready for review. Telephone Encounter - Shamika Cavanaugh - 09/13/2021 9:22 AM CDT Labs have been entered and are ready for review. documented in this encounter Plan of Treatment Upcoming Encounters Date Type Specialty Care Team Description 04/11/2022 Clinical Communication Admitting/Central Scheduling 04/13/2022 Appointment Laboratory Medicine Debbie Ivey M.D. [address] [place] [phone] 04/13/2022 Office Visit Oncology Walter Barnhart M.D., Ph.D. [address] [place] [phone] documented as of this encounter Procedures Procedure [...] 6 OTHER (SPECIFY Antigen 125 (Ca IN DRY CURE WORKER) 125) Comment: <=38 EXT Immunoglobulin A (IgA), S OTHER (SPECIFY IN DRY CURE WORKER) EXT Immunoglobulin D (IgD), S OTHER (SPECIFY IN DRY CURE WORKER) EXT Immunoglobulin E (IgE), S OTHER (SPECIFY IN DRY CURE WORKER) EXT Immunoglobulin G (IgG), S OTHER (SPECIFY IN DRY CURE WORKER) EXT Immunoglobulin M (IgM), S OTHER (SPECIFY IN DRY CURE WORKER) Specimen (Source) Anatomical Collection Method Collection Time Re ceived Time Location / / Volume Laterality Blood 09/12/2021 4:00 PM CDT Narrative This result has an attachment that is no t available. Historical Provider LAB BLOOD NON ADD-ON Performing Organization Address City/State/ZIP Code Phon e Number OTHER (SPECIFY IN DRY CURE WORKER) OTHER (SPECIFY IN DRY CURE WORKER) N/A (ABNORMAL) Hematology/Oncology - Blood, External Lab Results (09/12/2021 4:00 PM CDT) [facility] gist Method Time Signature EXT AST 38 (A) 12 - 35 OTHER (SPECIFY IN DRY CURE WORKER) EXT ALT 26 4 - 35 OTHER (SPECIFY IN DRY CURE WORKER) EXT Bilirubin, 1.2 0.1 - 1.5 OTHER Total mg/dL (SPECIFY IN DRY CURE WORKER) EXT Creatinine 0.5 0.5 - 1.5 OTHER mg/dL (SPECIFY IN DRY CURE WORKER) EXT Immunoglobulin OTHER A (IgA), S (SPECIFY IN DRY CURE WORKER) EXT Immunoglobulin OTHER D (IgD), S (SPECIFY IN DRY CURE WORKER) EXT Immunoglobulin OTHER E (IgE), S (SPECIFY IN DRY CURE WORKER) EXT Immunoglobulin OTHER G (IgG), S (SPECIFY IN DRY CURE WORKER) EXT Immunoglobulin OTHER M (IgM), S (SPECIFY IN DRY CURE WORKER) Specimen (Source) Anatomical Collection Method Collection Time Re ceived Time Location / / Volume Laterality Blood 09/12/2021 4:00 PM CDT Historical Provider LAB BLOOD NON ADD-ON Performing Organization Address City/State/ZIP Code Phon e Number OTHER (SPECIFY IN DRY CURE WORKER) OTHER (SPECIFY IN DRY CURE WORKER) N/A Hematology/Oncology - Blood, External Lab Results (09/12/2021 4:00 PM CDT) [facility] gist Method Time Signature EXT Hemoglobin 13.6 12.0 - OTHER 15.5 (SPECIFY IN DRY CURE WORKER) EXT Leukocytes 5.44 5.00 - OTHER 10.00 (SPECIFY IN DRY CURE WORKER) EXT Absolute 2.80 1.70 - OTHER Neutrophil Count 7.00 (SPECIFY IN DRY CURE WORKER) EXT Platelet Count 368 150 - 450 OTHER (SPECIFY IN DRY CURE WORKER) EXT Immunoglobulin OTHER A (IgA), S (SPECIFY IN DRY CURE WORKER) EXT Immunoglobulin OTHER D (IgD), S (SPECIFY IN DRY CURE WORKER) EXT Immunoglobulin OTHER E (IgE), S (SPECIFY IN DRY CURE WORKER) EXT Immunoglobulin OTHER G (IgG), S (SPECIFY IN DRY CURE WORKER) EXT Immunoglobulin OTHER M (IgM), S (SPECIFY IN DRY CURE WORKER) Specimen (Source) Anatomical Collection Method Collection Time Re ceived Time Location / / Volume Laterality Blood 09/12/2021 4:00 PM CDT Historical Provider LAB BLOOD NON ADD-ON Performing Organization Address City/State/[facility] Code Phon e Number OTHER (SPECIFY IN DRY CURE WORKER) OTHER (SPECIFY IN DRY CURE WORKER) N/A documented in this encounter Visit Diagnoses Not on filedocumented in this encounter Care Teams Cullet Trucker Relationship Specialty Start Date End Date Elsewhere, Pcp PCP - General Internal Medicine 07/08/21 documented as of this encounter
--- OUTSIDE RECORDS SUMMARY | 2022-03-16 10:27 | XMS_ITS | Encounter Summary ---
:1975 Author Organization [facility] Address [address] [place] [address] Care Team Providers Name Role Phone Elsewhere, Pcp Primary Care Provider Unavailable Reason for Visit Reason Comments Labs Only Encounter Details Date Type Department Care Team Description 12/13/2021 Clinical Communication Department of Oncology Malathi Bear, Labs Only in [facility] [phone] [address] [facility] (Work) [place] [address] Social History Tobacco Use Types Packs/Day Years [...] or relatives? How often do you attend restorationism or 1 to 4 times per year 02/09 scientologist services? Do you belong to any clubs or Yes 02/26/2021 organizations such as restorationism groups, unions, fraternal or athletic groups, or [...] Laboratory Medicine Debbie Ivey M.D. [address] [place] [phone] 04/13/2022 Office Visit Oncology Walter Barnhart M.D., Ph.D. [address] [place] [phone] documented as of this encounter Procedures Procedure Name Priority Date/Time Associated Diagnosis Comme [facility] HEMATOLOGY/ONCOLOGY Routine 12/06/2021 1:39 PM Re sults for this - BLOOD, EXTERNAL CDT procedure are in LAB RESULTS the results section. documented in this encounter Results (ABNORMAL) Hematology/Oncology - Blood, External Lab Results (12/06/2021 1:39 PM CDT) P athologist Signature EXT Hemoglobin 14.1 12.0 - OTHER (SPECIFY 16.0 IN SOCIAL MEDIA EXECUTIVE) EXT Leukocytes 4.78 4.50 - OTHER (SPECIFY 11.00 IN SOCIAL MEDIA EXECUTIVE) EXT Absolute 2.42 1.7 - 7.0 OTHER (SPECIFY Neutrophil IN SOCIAL MEDIA EXECUTIVE) Count EXT Platelet 268 140 - 440 OTHER (SPECIFY Count IN SOCIAL MEDIA EXECUTIVE) EXT AST 50 (A) 12 - 35 OTHER (SPECIFY IN SOCIAL MEDIA EXECUTIVE) EXT ALT 24 4 - 35 OTHER (SPECIFY IN SOCIAL MEDIA EXECUTIVE) EXT Bilirubin, 1.0 0.1 - 1.5 OTHER (SPECIFY Total mg/dL IN SOCIAL MEDIA EXECUTIVE) EXT Cancer 6 OTHER (SPECIFY Antigen 125 (Ca IN SOCIAL MEDIA EXECUTIVE) 125) Comment: <=38 EXT Creatinine 0.7 0.5 - 1.5 mg/dL OTHER (SP ECIFY IN SOCIAL MEDIA EXECUTIVE) Specimen (Source) Anatomical Collection Method Collection Time Re ceived Time Location / / Volume Laterality Blood 12/06/2021 1:39 PM CDT Narrative This result has an attachment that is no t available. Historical Provider LAB BLOOD NON ADD-ON Performing Organization Address City/State/ZIP Code Phon e Number OTHER (SPECIFY IN SOCIAL MEDIA EXECUTIVE) OTHER (SPECIFY IN SOCIAL MEDIA EXECUTIVE) N/A documented in this encounter Visit Diagnoses Not on filedocumented in this encounter Care Teams Dam Tender Relationship Specialty Start Date End Date Elsewhere, Pcp PCP - General Internal Medicine 07/08/21 documented as of this encounter
--- OUTSIDE RECORDS SUMMARY | 2022-03-16 10:27 | XMS_ITS | Encounter Summary ---
:1975 Author Organization [facility] Address [address] [place] [address] Care Team Providers Name Role Phone Elsewhere, Pcp Primary Care Provider Unavailable Encounter Details Date Type Department Care Team Description 09/16/2021 Orders Only Pharmacy Prior Auth Melanie Pickens I. [phone] Social History Tobacco Use Types Packs/Day Years [...] or relatives? How often do you attend bahai or 1 to 4 times per year 02/09 yazidi services? Do you belong to any clubs or Yes 02/26/2021 organizations such as bahai groups, unions, fraternal or athletic groups, or [...] Laboratory Medicine Debbie Ivey M.D. [address] [place] [phone] 04/13/2022 Office Visit Oncology Walter Barnhart M.D., Ph.D. [address] [place] [phone] documented as of this encounter Visit Diagnoses Not on filedocumented in this encounter Care Teams Leather Products Supervisor Relationship Specialty Start Date End Date Elsewhere, Pcp PCP - General Internal Medicine 07/08/21 documented as of this encounter
--- OUTSIDE RECORDS SUMMARY | 2022-03-16 10:27 | XMS_ITS | Encounter Summary ---
:1975 Author Organization [facility] Address [address] [place] [address] Care Team Providers Name Role Phone Elsewhere, Pcp Primary Care Provider Unavailable Reason for Referral MRI/CAT/PET Scan (Routine) - Closed Specialty Diagnoses / Procedures Referred By Contact Refer red To Contact Radiology Diagnoses Malignant Neoplasm Of Ovary Laterality Unknown (HCC) [facility] Abdomen Pelvis with IV Contrast DE CT ABD&PELVIS W CNTRST C.N.P. [address] [place] [phone] Referral ID Status Reason Start Date Expiration Date Visits Requ ested Visits Authorized [id number] Closed 07/22/2021 08/19/2021 1 1 STRIAL ECONOMIST MRI/CAT/PET Scan (Routine) - Closed Specialty Diagnoses / Procedures Referred By Contact Refer red To Contact Radiology Diagnoses Malignant Neoplasm Of Ovary Laterality Unknown (HCC) [facility] CT Chest with IV Contrast DE CT THORAX W CNTRST DE 3D WO [employer] WORK[employer] C.N.P. [address] [place] [phone] Referral ID Status Reason Start Date Expiration Date Visits Requ ested Visits Authorized [id number] Closed 07/22/2021 08/19/2021 1 1 STRIAL ECONOMIST Reason for Visit MRI/CAT/PET Scan (Routine) - Closed Specialty Diagnoses / Procedures Referred By Contact Refer red To Contact Radiology Diagnoses Malignant Neoplasm Of Ovary Laterality Unknown (HCC) Candie Monahan APRN, [place] Procedures CT Abdomen Pelvis with IV Contrast DE CT ABD&PELVIS W CNTRST C.N.P. [address] [place] [phone] Referral ID Status Reason Start Date Expiration Date Visits Requ ested Visits Authorized [id number] Closed 07/22/2021 08/19/2021 1 1 Encounter Details Date Type Department Care Team Description 08/04/2021 Hospital Encounter Department of Candie Monahan nt Neoplasm Radiology, Jeramy Box APRN, C.N.P. Of Ovary Laterality Building, in [address] [place] [address] Unknown (HCC) [place], [place] [address] [place] [phone] [place], [place] [phone] (Work) [phone] Social History Tobacco Use Types Packs/Day Years [...] Sig Dispensed Refills Start Date End Date cyjbcsm-bdnp-egxie-oreg- Take 1 tablet by 0 capryl 100 [...] Laboratory Medicine Debbie Ivey M.D. [address] [place] [phone] 04/13/2022 Office Visit Oncology Walter Barnhart M.D., Ph.D. [address] [place] [phone] documented as of this encounter Procedures Procedure Name Priority Date/Time Associated Comments Diagnosis CT ABDOMEN PELVIS RAD - Routine 08/04/2021 11:49 Malignant Resul ts for this WITH IV CONTRAST (most inpatients AM INDUSTRIAL ECONOMIST Neoplasm Of Ovary pr ocedure are in and all Laterality the results outpatients) Unknown (HCC) section. CT CHEST WITH IV RAD - Routine 08/04/2021 11:49 Malignant Result s for this CONTRAST (most inpatients AM INDUSTRIAL ECONOMIST Neoplasm Of Ovary proced ure are in and all Laterality the results outpatients) Unknown (HCC) section. documented in this encounter Results CT Abdomen Pelvis with IV Contrast (08/04/2021 11:49 AM INDUSTRIAL ECONOMIST) Anatomical Region Laterality Modality Abdomen, Pelvis, Abdominal RST LOS, N/A Comp uted Tomography, Computed Abdominal ARZ LOS, Abdominal FLA LOS Aldo ography Specimen (Source) Anatomical Collection Method Collection Time Re ceived Time Location / / Volume Laterality 08/04/2021 11:44 AM INDUSTRIAL ECONOMIST Impressions 08/04/2021 12:37 PM INDUSTRIAL ECONOMIST New postoperative changes in the abdomen and pelvis for resection of the patient's ovarian carcinoma. No definite residual/ recurrent or metastatic disease. There is minimal soft tissue nodularity subjacent to the left hemidiaphragm that is technically indeterminant for postoperative change versus a metastatic implant and surveillance would likely be beneficial. Narrative 08/04/2021 12:37 PM INDUSTRIAL ECONOMIST EXAM: ??CT ABDOMEN PELVIS WITH IV CONTRAST [...] for a metastatic implant and attention at [facility] ow-up would likely be beneficial. No definite [...] Chest with IV Contrast (08/04/2021 11:49 AM INDUSTRIAL ECONOMIST) Anatomical Region Laterality Modality Chest, Thoracic RST LOS, Thoracic ARZ N/A Co mputed Tomography, Computed LOS, Thoracic ARZ LOS, Thoracic FLA Rene graphy LOS Specimen (Source) Anatomical Collection Method Collection Time Re ceived Time Location / / Volume Laterality 08/04/2021 11:45 AM INDUSTRIAL ECONOMIST Impressions 08/04/2021 2:17 PM INDUSTRIAL ECONOMIST 1. No change since 05/02/2021. 2. Tiny pulmonary nodules are also uncha nged dating back to 02/11/2021, and though indeterminate, are most likely benign. Narrative 08/04/2021 2:17 PM INDUSTRIAL ECONOMIST EXAM: CT CHEST WITH IV CONTRAST COMPARISON: [...] benign. Examination performed in conjunction [facility] separately reported CT of the [...] benign. Examination performed in conjunction [facility] separately reported CT of the [...] iohexol (OMNIPAQUE) dilution Given 08/04/2021 10:50 AM INDUSTRIAL ECONOMIST 9,000 mg solution 9,000 mg iodine/1,000 mL water 9,000 mg, oral, Once in imaging, contrast, Starting on Misty 08/04/21 at 1049, For 1 dose, Imaging Protocol Orders, Mix iohexol 300 (Omnipaque?? 300) 30 mL with 970 mL water for a total volume of 1,000 mLs. Patient to drink mixture in 40 minutes. iohexoL 300 mg iodine/mL solution 1-200 mL Given 08/04/2021 11:35 AM INDUSTRIAL ECONOMIST 100 mL (OMNIPAQUE) 1-200 mL, intravenous, Once in imaging, contrast, Starting on Misty 08/04/21 at 1049, For 1 dose, Imaging Protocol Orders, Dose per Radiant Medication Guidelines sodium chloride (PF) 0.9 % injection 1-1 00 mL Given 08/04/2021 11:35 AM INDUSTRIAL ECONOMIST 50 mL 1-100 mL, intravenous, Once, On Misty 08/04/21 at 1100, For 1 dose, Imaging Protocol Orders documented in this encounter Care Teams Gauge Operator Relationship Specialty Start Date End Date Elsewhere, Pcp PCP - General Internal Medicine 07/08/21 documented as of this encounter
--- OUTSIDE RECORDS SUMMARY | 2022-03-16 10:27 | XMS_ITS | Encounter Summary ---
:1975 Author Organization [facility] Address [address] [place] [address] Care Team Providers Name Role Phone Elsewhere, Pcp Primary Care Provider Unavailable Reason for Visit Outpatient (Routine) - Closed Specialty Diagnoses / Procedures Referred By Contact Refer red To Contact General Surgery Agnes Drew M.D. [facility] [address] [place] [phone] Referral ID Status Reason Start Date Expiration Date Visits Requ ested Visits Authorized [id number] Closed 05/10/2021 05/10/2022 1 1 Encounter Details Date Type Department Care Team Description 08/09/2021 Telemedicine Division of Wilma Castro Ne oplasm Of Hepatobiliary and Kelly Estrada Ovary Laterality Pancreas Surgery in [address] [facility] W Unknown (HCC) [place], [place] [address] [place] [phone] [place], [place] [phone] (Work) [phone] Social History Tobacco Use Types Packs/Day Years [...] or relatives? How often do you attend spiritism or 1 to 4 times per year 02/09 jainism services? Do you belong to any clubs or Yes 02/26/2021 organizations such as spiritism groups, unions, fraternal or athletic groups, or [...] or slept in a alf (including now)? Education Answer Date Recorded What [...] needed with HPB surg -Continue following with RADIOLOGICAL HEALTH SPECIALIST Onc -Will continue to ask radiologists to comment on liver down the line, if LFTs become affected, can consider involving [facility], should improve off chemo TLE THREADER documented in this encounter Plan of Treatment Upcoming Encounters Date Type Specialty Care Team Description 04/11/2022 Clinical Communication Admitting/Central Scheduling 04/13/2022 Appointment Laboratory Medicine Debbie Ivey M.D. [address] [place] [address] [phone] 04/13/2022 Office Visit Oncology Walter Barnhart M.D., Ph.D. 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
--- OUTSIDE RECORDS SUMMARY | 2022-03-16 10:27 | XMS_ITS | Encounter Summary ---
:1975 Author Organization [facility] Address [address] [place] [address] Care Team Providers Name Role Phone Elsewhere, Pcp Primary Care Provider Unavailable Encounter Details Date Type Department Care Team Description 07/11/2021 Clinical Communication Department of Walter Barnhart Oncology in M.D., Ph.D. [place], [place] [address] [facility] [address] [place] [phone] Social History Tobacco Use Types Packs/Day Years [...] Appointment Laboratory Medicine Debbie Ivey M.D. [address] [place] [address] [phone] 04/13/2022 Office Visit Oncology Walter Barnhart M.D., Ph.D. [address] [place] [address] [phone] documented as of this encounter Visit Diagnoses Not on filedocumented in this encounter Care Teams Senior Animator Relationship Specialty Start Date End Date Elsewhere, Pcp PCP - General Internal Medicine 07/08/21 documented as of this encounter
--- OUTSIDE RECORDS SUMMARY | 2022-03-16 10:27 | XMS_ITS | Encounter Summary ---
:1975 Author Organization [facility] Address [address] [place] [address] Care Team Providers Name Role Phone Elsewhere, Pcp Primary Care Provider Unavailable Encounter Details Date Type Department Care Team Description 11/09/2021 Clinical Communication Visit Review in [place], [place] [address] [place], [place] [phone] Social History Tobacco Use Types Packs/Day Years [...] Appointment Laboratory Medicine Debbie Ivey M.D. 200 [place] [phone] 04/13/2022 Office Visit Oncology Walter Barnhart M.D., Ph.D. 200 [place] [phone] documented as of this encounter Visit Diagnoses Not on filedocumented in this encounter Care Teams Copper Flotation Operator Relationship Specialty Start Date End Date Elsewhere, Pcp PCP - General Internal Medicine 07/08/21 documented as of this encounter
--- OUTSIDE RECORDS SUMMARY | 2022-03-16 10:27 | XMS_ITS | Encounter Summary ---
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 [address] [place] [phone] Referral ID Status Reason Start Date Expiration Date Visits Requ ested Visits Authorized [id number] Closed 12/22/2021 06/23/2022 1 1 Outpatient (Routine) - Closed Specialty Diagnoses / Procedures Referred By Contact Refer red To Contact Oncology Walter Barnhart M. D., Ph.D. 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 [address] [place] [phone] Referral ID Status Reason Start Date Expiration Date Visits Requ ested Visits Authorized [id number] Closed 12/22/2021 06/23/2022 1 1 Reason for Visit Outpatient (Routine) - Closed Specialty Diagnoses / Procedures Referred By Contact Refer red To Contact Oncology Walter Barnhart M. D., Ph.D. [facility] [address] [place] [phone] Referral ID Status Reason Start Date Expiration Date Visits Requ ested Visits Authorized [id number] Closed 08/11/2021 08/11/2022 1 1 Encounter Details Date Type Department Care Team Description 11/10/2021 Office Visit Department of Walter Barnhart, Malignant Neoplasm Of Oncology in [place], Ph.D. Ovary Laterality [place], [place] [address] [facility] Unknown (HCC) (Primary [address] [place] [address] Dx) [place] [phone] Social History Tobacco Use Types Packs/Day Years [...] 1 to 4 times per year 02/09 judaism services? Do you belong to any clubs [...] Body Mass Index 19.28 08/10/2021 12:55 PM PANTOGRAPH I ENGRAVER documented in this encounter Progress Notes Walter Barnhart M.D., Ph.D. - 11/10/2021 3:20 PM CDT SUBJECTIVE CHIEF COMPLAINT/REASON FOR VISIT Stage IVB high-grade serous ovarian cancer HISTORY OF PRESENT ILLNESS Oncology History Malignant Neoplasm Of Ovary Laterality Unknown (HCC) Genetic Testing and Tumor Genotyping Genetic testing in 2020; BRCAnalysis with My[facility] panel from [facility]. Variant of Uncertain Significance (VUS) found in APC gene specifically named [id number] aka [id number]). Somatic testing: HRD Positive, BRCA negative 02/03/2021 [...] Chemotherapy CARBOplatin AUC 6 / PACLitaxel ( CANDY BAR ATTENDANT ) Start Date: 02/25/2021 Completed 3 cycles [...] Chemotherapy CARBOplatin AUC 6 / PACLitaxel ( CANDY BAR ATTENDANT ) Start Date: 02/25/2021 Adjuvant chemotherapy, cycles [...] Laboratory Medicine Debbie Ivey M.D. [address] [place] [address] 04/13/2022 Office Visit Oncology Walter Barnhart M.D., Ph.D. [address] [place] [phone] Scheduled Referrals Name Type Priority Associated Diagnoses [facility] Outpatient Referral Routine Expec jace: visit (clinic) 02/09/2022, General; CANDY BAR ATTENDANT Expires: 02/10/2023 documented as of this encounter [...] Signature HBs Antigen, S Negative Negative 01/03/2022 [facility] 1:32 PM CDT Specimen Anatomical Collection Method Collection Time Receive d Time (Source) Location / / Volume Laterality Blood (Blood, 01/03/2022 9:20 AM 01/04/20 Venous) CDT 12:23 PM CDT Walter Barnhart M.D., Ph.D. LAB MICROBIOLOGY - BLOOD O ELVI Performing Organization Address [facility] Code Phon e Number [facility] [address] MARQUEZ [address] [place] [address] Laboratory Medicine and Pathology [address] MARQUEZ HCV Ab Scrn w/Reflex to HCV PCR, Serum (01/03/2022 9:20 AM CDT) athologist Signature HCV Ab Screen, Negative Negative 01/03/2022 [facility] S 1:49 PM CDT Comment: Jdcpeh-dn-qfbxwm ratio is <1.00 . Specimen Anatomical Collection Method Collection Time Receive d Time (Source) Location / / Volume Laterality Blood (Blood, 01/03/2022 9:20 AM 01/04/20 Venous) CDT 12:23 PM CDT Walter Barnhart M.D., Ph.D. LAB MICROBIOLOGY - BLOOD O ELVI Performing Organization Address City/[facility]/ZIP Code Phon e Number [place] [phone] [place] [phone] [address] [facility] [place] [place] [address] Laboratory Medicine and Pathology [address] [place] [address] Dr. MARQUEZ HIV-1/-2 Ag and Ab Screen, Plasma (01/03/2022 9:20 AM CDT) athologist Signature HIV-1/-2 Ag Negative Negative 01/03/2022 [facility] and Ab Screen, 2:01 PM CDT Comment: [...] - BLOOD O RDERABLES Performing Organization Address City/State/[facility] Code Phon e Number [address] [place] [phone] [place] [address] Laboratory Medicine and Pathology [address] [place] [address] Dr. MARQUEZ Creatinine with Estimated GFR (01/03/2022 9:20 AM CDT) athologist Signature Creatinine 0.78 0.59 - 01/03/2022 DTL 1.04 mg/dL 10:17 AM CDT eGFR-Non >90 >=60 01/03/2022 D[facility] Black/ mL/min/BSA 10:17 AM CDT Israeli Comment: ----ADDITIONAL INFORMATION---- Estimated GFR calculated using [...] City/State/ZIP Code Phon e Number [facility] - 200 [place], [place] [address] [facility] [place] [address] [facility] 200 [facility] CBC with Differential, Blood (01/03/2022 9:20 [...] City/State/ZIP Code Phon e Number [facility] - [address] [place], [place] [address] 200 [facility] Bilirubin, Total (01/03/2022 9:20 AM CDT) P athologist Signature Bilirubin, 1.0 <=1.2 mg/dL 01/03/2022 DTL Total, S 10:17 AM CDT Specimen Anatomical Collection Method Collection Time Receive d Time (Source) Location / / Volume Laterality Blood (Blood, 01/03/2022 9:20 AM 01/04/20 Venous) CDT 10:00 AM CDT Walter Barnhart M.D., Ph.D. LAB BLOOD ADD-ON Performing Organization Address City/[facility] Code Phon e Number [facility] - [address] 200 [facility] (ABNORMAL) AST (Aspartate Aminotransferase) (01/03/2022 9:20 [...] LAB BLOOD ADD-ON Performing Organization Address City/State/[facility] Phon e Number [facility] - [address] (ABNORMAL) Alkaline Phosphatase (01/03/2022 9:20 AM [...] City/State/ZIP Code Phon e Number [facility] - [address] [place], [place] [address] [facility] [place] [address] [facility] [address] documented in this encounter Visit Diagnoses Diagnosis Malignant Neoplasm Of Ovary Laterality U nknown (HCC) - Primary Malignant Neoplasm Of Ovary Laterality U nknown (HCC) documented in this encounter Care Teams Manager Cargo Relationship Specialty Start Date End Date Elsewhere, Pcp PCP - General Internal Medicine 07/08/21 documented as of this encounter
--- OUTSIDE RECORDS SUMMARY | 2022-03-16 10:27 | XMS_ITS | Encounter Summary ---
:1975 Author Organization [facility] Address [address] [place] [address] Care Team Providers Name Role Phone Elsewhere, Pcp Primary Care Provider Unavailable Reason for Referral Outpatient (Routine) - Closed Specialty Diagnoses / Procedures Referred By Contact Refer red To Contact Oncology Walter Barnhart M. D., Ph.D. [address] [phone] Referral ID Status Reason Start Date Expiration Date Visits Requ ested Visits Authorized [id number] Closed 08/11/2021 08/11/2022 1 1 O UNIFIED COMMUNICATIONS ENGINEER Reason for Visit Outpatient (Routine) - Closed Specialty Diagnoses / Procedures Referred By Contact Refer red To Contact Oncology Candie Monahan, APR N, C.N.P. [address] [phone] Referral ID Status Reason Start Date Expiration Date Visits Requ ested Visits Authorized [id number] Closed 05/30/2021 05/30/2022 1 1 Encounter Details Date Type Department Care Team Description 08/10/2021 Office Visit Department of Walter Barnhart, Malignant Neoplasm Of Oncology in MM[place]., Ph.D. Ovary Laterality [place], [place] [address] [place] [address] Unknown (HCC) (Primary [address] [place] [address] Dx) [place] [phone] Social History Tobacco Use Types Packs/Day Years [...] Comments Blood Pressure 129/79 08/10/2021 12:55 PM CISCO UNIFIED COMMUNICATIONS ENGINEER Pulse 70 08/10/2021 12:55 PM CISCO UNIFIED COMMUNICATIONS ENGINEER Temperature 36.6 ??C (97.9 ??F) 08/10/2021 12:55 PM CISCO UNIFIED COMMUNICATIONS ENGINEER Respiratory Rate 16 08/10/2021 12:55 PM CISCO UNIFIED COMMUNICATIONS ENGINEER Oxygen Saturation 94% 08/10/2021 12:55 PM CISCO UNIFIED COMMUNICATIONS ENGINEER Inhaled Oxygen Concentration - - Weight 54.6 kg (120 lb 5.9 oz) 08/10/2021 12:55 PM CISCO UNIFIED COMMUNICATIONS ENGINEER Height 169.5 cm (5' 6.73) 08/10/2021 12:55 PM CISCO UNIFIED COMMUNICATIONS ENGINEER Body Mass Index 19 08/10/2021 12:55 PM CISCO UNIFIED COMMUNICATIONS ENGINEER documented in this encounter Progress Notes Walter Barnhart M.D., Ph.D. - 08/10/2021 1:00 PM CST SUBJECTIVE CHIEF COMPLAINT/REASON FOR VISIT Stage IVB high-grade serous ovarian cancer HISTORY OF PRESENT ILLNESS Oncology History Malignant Neoplasm Of Ovary Laterality Unknown (HCC) Genetic Testing and Tumor Genotyping Genetic testing in 2020; BRCAnalysis with [employer] panel from [facility]. Variant of Uncertain Significance (VUS) found in APC gene specifically named [id number] aka [id number]). Somatic testing: HRD Positive, BRCA negative 02/03/2021 [...] Chemotherapy CARBOplatin AUC 6 / PACLitaxel ( PRODUCTION TRAINER ) Start Date: 02/25/2021 Completed 3 cycles [...] Chemotherapy CARBOplatin AUC 6 / PACLitaxel ( PRODUCTION TRAINER ) Start Date: 02/25/2021 Adjuvant chemotherapy, cycles [...] and/or coordination of care as described above. O UNIFIED COMMUNICATIONS ENGINEER documented in this encounter Plan of Treatment Upcoming Encounters Date Type Specialty Care Team Description 04/11/2022 Clinical Communication Admitting/Central Scheduling 04/13/2022 Appointment Laboratory Medicine Debbie Ivey M.D. [address] [place] [phone] 04/13/2022 Office Visit Oncology Walter Barnhart M.D., Ph.D. [address] [place] [phone] Scheduled Referrals Name Type Priority Associated Diagnoses Order S [facility] Oncology office Outpatient Referral Routine Expec jace: visit (clinic) 11/10/2021, General; PRODUCTION TRAINER Expires: 11/11/2022 documented as of this encounter Visit Diagnoses Diagnosis Malignant Neoplasm Of Ovary Laterality U nknown (HCC) - Primary documented in this encounter Care Teams Water Resource Engineer Relationship Specialty Start Date End Date Elsewhere, Pcp PCP - General Internal Medicine 07/08/21 documented as of this encounter
--- OUTSIDE RECORDS SUMMARY | 2022-03-16 10:27 | XMS_ITS | Encounter Summary ---
:1975 Author Organization [facility] Address [address] [place] [address] Care Team Providers Name Role Phone Elsewhere, Pcp Primary Care Provider Unavailable Encounter Details Date Type Department Care Team Description 09/12/2021 Orders Only Pharmacy Prior Auth Minerva Galindo [phone] Social History Tobacco Use Types Packs/Day Years [...] Laboratory Medicine Debbie Ivey M.D. [address] [place] [phone] 04/13/2022 Office Visit Oncology Walter Barnhart M.D., Ph.D. [address] [place] [phone] documented as of this encounter Visit Diagnoses Not on filedocumented in this encounter Care Teams Mold Setter Relationship Specialty Start Date End Date Elsewhere, Pcp PCP - General Internal Medicine 07/08/21 documented as of this encounter
--- OUTSIDE RECORDS SUMMARY | 2022-03-16 10:27 | XMS_ITS | Encounter Summary ---
:1975 Author Organization [facility] Address [address] [place] [address] Care Team Providers Name Role Phone Elsewhere, Pcp Primary Care Provider Unavailable Encounter Details Date Type Department Care Team Description 08/04/2021 Hospital Encounter Department of Candie Monahan nt Neoplasm Laboratory Medicine E, DENNY C.N .PChapincito Of Ovary Laterality and Pathology, 200 [facility] Unknown (HCC) [facility], in [place], [place] [address] [place] [address] [place], [place] (Work) [address] [phone] Social History Tobacco Use Types Packs/Day Years [...] Sig Dispensed Refills Start Date End Date fjxkqcz-lcbt-hwktk-oreg- Take 1 tablet by 0 capryl 100 [...] Laboratory Medicine Debbie Ivey M.D. [address] [place] [phone] 04/13/2022 Office Visit Oncology Walter Barnhart M.D., Ph.D. [address] [place] [phone] documented as of this encounter Procedures Procedure Name Priority Date/Time Associated Comments Diagnosis CBC CHEMO - NO ALERTS Routine 08/04/2021 10:14 Malignant Neopl asm Results for this AM ACCOUNTS CLERK Of Ovary procedure are i n Laterality Unknown the resul ts (HCC) section. CANCER AG 125 (CA 125), Routine 08/04/2021 10:14 Malignant Juan plasm Results for this S AM ACCOUNTS CLERK Of Ovary procedure are i n Laterality Unknown the resul ts (HCC) section. ALANINE AMINOTRANSFERASE Routine 08/04/2021 10:14 Malignant Ne oplasm Results for this (ALT), S/P AM ACCOUNTS CLERK Of Ovary procedure are i n Laterality Unknown the resul ts (HCC) section. ASPARTATE Routine 08/04/2021 10:14 Malignant Neoplasm Resul ts for this AMINOTRANSFERASE (AST), AM ACCOUNTS CLERK Of Ovary proc edure are in S/P Laterality Unknown the resul ts (HCC) section. CREATININE WITH EGFR, Routine 08/04/2021 10:14 Malignant Neopl asm Results for this S/P AM ACCOUNTS CLERK Of Ovary procedure are i n Laterality Unknown the resul ts (HCC) section. BILIRUBIN DIRECT, S/P Routine 08/04/2021 10:14 Malignant Neopl asm Results for this AM ACCOUNTS CLERK Of Ovary procedure are i n Laterality Unknown the resul ts (HCC) section. BILIRUBIN, TOT, S/P Routine 08/04/2021 10:14 Malignant Neoplas m Results for this AM ACCOUNTS CLERK Of Ovary procedure are i n Laterality Unknown the resul ts (HCC) section. documented in this encounter Results Creatinine with Estimated GFR (08/04/2021 10:14 AM ACCOUNTS CLERK) P athologist Signature Creatinine 0.74 0.59 - 08/04/2021 DTL 1.04 mg/dL 11:11 AM ACCOUNTS CLERK eGFR-Non >90 >=60 08/04/2021 DTL Black/ mL/min/BSA 11:11 AM ACCOUNTS CLERK Cameroonian Comment: ----ADDITIONAL INFORMATION---- Estimated GFR calculated using the 2009 CKD_EPI creatinine equation. eGFR-Black/ >90 >=60 mL/min/BSA 2021 11:11 AM ACCOUNTS CLERK DTL Comment: ----ADDITIONAL INFORMATION---- Estimated GFR calculated using the 2009 CKD_EPI creatinine equation. Specimen Anatomical Collection Method Collection Time Receive d Time (Source) Location / / Volume Laterality Blood (Blood, 08/04/2021 10:14 08/04/2021 Venous) AM ACCOUNTS CLERK 10:55 AM ACCOUNTS CLERK Candie Monahan APRN, C.N.P. LAB BLOOD ADD-ON Performing Organization Address City/State/ZIP Code Phon e Number [facility] - [address] [place], [place] [address] [facility] [place] [address] [facility] [address] (ABNORMAL) CBC, Chemotherapy, No Alerts (08/04/2021 10:14 AM ACCOUNTS CLERK) Analysis Performed At Patho logist Time Signature Hemoglobin 13.0 11.6 - 08/04/2021 DTL 15.0 g/dL 10:50 AM ACCOUNTS CLERK Platelet Count 262 157 - 371 08/04/2021 DTL x10(9)/L 10:50 AM ACCOUNTS CLERK Leukocytes 3.2 (L) 3.4 - 9.6 08/04/2021 DTL x10(9)/L 10:50 AM ACCOUNTS CLERK Neutrophils 1.20 (L) 1.56 - 08/04/2021 DTL 6.45 10:50 AM ACCOUNTS CLERK x10(9)/L Specimen Anatomical Collection Method Collection Time Receive d Time (Source) Location / / Volume Laterality Blood (Blood, 08/04/2021 10:14 08/04/2021 Venous) AM ACCOUNTS CLERK 10:41 AM ACCOUNTS CLERK Sabine Garcia APRNN.P. LAB BLOOD ADD-ON Performing Organization Address City/[facility]/ZIP Code Phon e Number [facility] - [address] [place], [place] [address] [facility] [place] [address] [facility] [address] Cancer Antigen 125 (CA 125) (08/04/2021 10:14 AM ACCOUNTS CLERK) athologist Signature Cancer Ag 125 5 <46 U/mL 08/04/2021 [facility] (CA 125), S 2:33 PM ACCOUNTS CLERK Comment: ----ADDITIONAL INFORMATION---- The testing method is an electrochemilum inescence assay manufactured by [employer] and performed on the Michela system. [...] (Blood, 08/04/2021 10:14 08/04/2021 1:44 Venous) AM ACCOUNTS CLERK PM ACCOUNTS CLERK Sabine Garcia APRNN.P. LAB BLOOD ADD-ON Performing Organization Address City/[facility] Phon e Number [facility] [address] [place]QUE[place], [place] [address] [facility] [place] [address] Laboratory Medicine and Pathology [address] [place] Bilirubin, Direct (08/04/2021 10:14 AM ACCOUNTS CLERK) athologist Signature Bilirubin, <0.2 0.0 - 0.3 08/04/2021 [facility] Direct, S mg/dL 11:11 AM ACCOUNTS CLERK Specimen Anatomical Collection Method Collection Time Receive d Time (Source) Location / / Volume Laterality Blood (Blood, 08/04/2021 10:14 08/04/2021 Venous) AM ACCOUNTS CLERK 10:55 AM ACCOUNTS CLERK Candie Monahan APRN, C.N.P. LAB BLOOD ADD-ON Performing Organization Address City/[facility]/ZIP Code Phon e Number [facility] - [address] [place], [place] [address] [place] [address] [address] [facility] Bilirubin, Total (08/04/2021 10:14 AM ACCOUNTS CLERK) P athologist Signature Bilirubin, 0.5 <=1.2 mg/dL 08/04/2021 DTL Total, S 11:11 AM ACCOUNTS CLERK Specimen Anatomical Collection Method Collection Time Receive d Time (Source) Location / / Volume Laterality Blood (Blood, 08/04/2021 10:14 08/04/2021 Venous) AM ACCOUNTS CLERK 10:55 AM ACCOUNTS CLERK Candie Monahan APRN, C.N.P. LAB BLOOD ADD-ON Performing Organization Address City/[facility]/ZIP Code Phon e Number [facility] - [address] [place] [address] [facility] AST (Aspartate Aminotransferase) (08/04/2021 10:14 AM ACCOUNTS CLERK) [facility] Method Time Signature Aspartate 32 8 - 43 08/04/2021 DTL Aminotransferase U/L 11:11 AM ACCOUNTS CLERK (AST), S Specimen Anatomical Collection Method Collection Time Receive d Time (Source) Location / / Volume Laterality Blood (Blood, 08/04/2021 10:14 08/04/2021 Venous) AM ACCOUNTS CLERK 10:55 AM ACCOUNTS CLERK Candie Monahan APRN, C.N.P. LAB BLOOD ADD-ON Performing Organization Address City/State/ZIP Code Phon e Number [facility] - [address] [place], [place] [address] [place] [address] ALT (Alanine Aminotransferase) (08/04/2021 10:14 AM ACCOUNTS CLERK) [facility] gist Method Time Signature Alanine 23 7 - 45 08/04/2021 DTL Aminotransferase U/L 11:11 AM ACCOUNTS CLERK (ALT), S Specimen Anatomical Collection Method Collection Time Receive d Time (Source) Location / / Volume Laterality Blood (Blood, 08/04/2021 10:14 08/04/2021 Venous) AM ACCOUNTS CLERK 10:55 AM ACCOUNTS CLERK Candie Monahan APRN, C.N.P. LAB BLOOD ADD-ON Performing Organization Address City/State/ZIP Code Phon e Number [facility] - [address] [place], [place] [address] [facility] [place] [address] [facility] [address] documented in this encounter Visit Diagnoses Diagnosis Malignant Neoplasm Of Ovary Laterality U nknown (HCC) documented in this encounter Care Teams Guide Foreign Tour Relationship Specialty Start Date End Date Elsewhere, Pcp PCP - General Internal Medicine 07/08/21 documented as of this encounter
--- OUTSIDE RECORDS SUMMARY | 2022-03-16 10:27 | XMS_ITS | Encounter Summary ---
:1975 Author Organization [facility] Address [address] [place] [address] Care Team Providers Name Role Phone Elsewhere, Pcp Primary Care Provider Unavailable Reason for Visit Episode Based Medications (Routine) - Authorized Specialty Diagnoses / Procedures Referred By Contact Refer red To Contact Diagnoses Malignant Neoplasm Of Ovary Laterality Unknown (HCC) Walter Barnhart M.D., R st Onc Rogo Procedures [place] CARBOPLATIN INJECTION NC PACLITAXEL INJECTION NC INJECTION, PEGFILGRASTIM 6MG [place] DEXAMETHASONE SODIUM PHOS Ph.D. [address] [facility] [address] [place] [phone] Referral ID Status Reason Start Date Expiration Date Visits V isits Requested Authorized [id number] Authorized 02/17/2021 02/17/2022 12 12 Encounter Details Date Type Department Care Team Description 07/11/2021 Infusion Department of Oncology Marychuy Kapoor, Malignant Neoplasm Of Ovary Laterality Unknown (HCC) (Primary Dx); in [facility] rojelio CALL OUT CLERK, C.N.P., Neutropenia Drug Induced (HC C) [address] [facility] M.S.N. [place], [place] [address] [place] [address] [place], [place] [phone] (Wo rk) Social History Tobacco Use Types [...] or relatives? How often do you attend worship or 1 to 4 times per year 02/09 orthodoxy services? Do you belong to any clubs or Yes 02/26/2021 organizations such as worship groups, unions, fraternal or athletic groups, or [...] Appointment Laboratory Medicine Debbie Ivey M.D. 200 [place] [phone] 04/13/2022 Office Visit Oncology Walter Barnhart M.D., Ph.D. [address] [place] [address] documented as of this encounter Visit Diagnoses Diagnosis Malignant Neoplasm Of Ovary Laterality U nknown (HCC) - Primary Neutropenia Drug Induced (HCC) documented in this encounter Administered Medications Inactive Administered Medications - up to 3 most recent administrations Medication Order MAR Action Action Date Dose Rate Site CARBOplatin 700 mg in NaCl New Bag 07/11/2021 3:03 PM ARTIFICIAL LIMB FITTER 700 mg 690 mL/hr 0.9% 345 mL IVPB (PARAPLATIN) 700 mg (rounded from 697.8 mg, Target AUC = 6), intravenous, at 690 mL/hr, Administer over 30 Minutes, Once, On 07/11/21 at 1445, For 1 dose dexAMETHasone injection 8 mg (DECADRON) Given 07/11/2021 11:22 AM ARTIFICIAL LIMB FITTER 8 mg 8 mg, intravenous, Once, On Sun07/11/21 at 1115, For 1 dose, Give prior to PACLitaxel diphenhydrAMINE 50 mg in NaCl 0.9% New Bag 07/11/2021 11:44 AM ARTIFICIAL LIMB FITTER 50 mg 204 mL/hr IVPB (BENADRYL) 50 mg, intravenous, at 204 mL/hr, Administer over 15 Minutes, Once, On Sun07/11/21 at 1115, For 1 dose, Pre taxol. ivpb vs ivp to help with symptoms famotidine injection 20 mg (PEPCID) Given 07/11/2021 11:22 AM ARTIFICIAL LIMB FITTER 20 mg 20 mg, intravenous, Once, On [...] mg New Bag 07/11/2021 11:25 A M ARTIFICIAL LIMB FITTER 16 mg 232 mL/hr (ZOFRAN) 16 mg, intravenous, at 232 mL/hr, Administer over 15 Minutes, Once, On Sun07/11/21 at 1115, For 1 dose PACLitaxeL 288 mg in NaCl 0.9% New Bag 07/11/2021 12:31 PM ARTIFICIAL LIMB FITTER 288 mg 108 mL/hr (non-PVC) 323 mL IVPB (TAXOL) 288 mg (rounded from 285.25 mg = 175 mg/m2 ? 1.63 m2 Treatment Plan BSA from Measured weight), intravenous, at 108 mL/hr, Administer over 3 Hours, Once, On Sun07/11/21 at 1145, For 1 dose, Administer via 0.22 micron in-line filter. documented in this encounter Care Teams Water Gas Operator Relationship Specialty Start Date End Date Elsewhere, Pcp PCP - General Internal Medicine 07/08/21 documented as of this encounter
--- OUTSIDE RECORDS SUMMARY | 2022-03-16 10:27 | XMS_ITS | Encounter Summary ---
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 [address] [facility] [address] [place] [phone] Referral ID Status Reason Start Date Expiration Date Visits V isits Requested Authorized [id number] Authorized 02/17/2021 02/17/2022 12 12 Encounter Details Date Type Department Care Team Description 07/11/2021 Office Visit Department of Marychuy Kapoor Malignan t Neoplasm Of Ovary Laterality Unknown (HCC); Oncology in BRONC BREAKER, C.N.P., Neutropenia Dr hannah Lorenzo (HCC) [place], [place] M.S.N. [address] [facility] [address] [place] [phone] Social History Tobacco Use Types Packs/Day Years [...] Comments Blood Pressure 149/97 07/11/2021 9:41 AM ELECTRICIAN BUS Pulse 73 07/11/2021 9:41 AM ELECTRICIAN BUS Temperature 36.6 ??C (97.9 ??F) 07/11/2021 9:41 AM ELECTRICIAN BUS Respiratory Rate 16 07/11/2021 9:41 AM ELECTRICIAN BUS Oxygen Saturation 100% 07/11/2021 9:41 AM ELECTRICIAN BUS Inhaled Oxygen Concentration - - Weight 55.7 kg (122 lb 12.7 oz) 07/11/2021 9:41 AM ELECTRICIAN BUS Height 169.2 cm (5' 6.61) 07/11/2021 9:41 AM ELECTRICIAN BUS Body Mass Index 19.46 07/11/2021 9:41 AM ELECTRICIAN BUS documented in this encounter Progress Notes Marychuy Kapoor APRN, C.N.P., M.S.N. - 07/11/2021 9:40 AM CST CHIEF COMPLAINT/PUPROSE OF VISIT: Ms. Yang is a 45 y.o. woman with stage IVB high-grade serous ovarian cancer Collaborating provider: Dr. Walter Barnhart [phone]) HISTORY OF PRESENT ILLNESS: Ms. Yang is a very pleasant 45 y.o. 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 Variant of Uncertain Significance (VUS) found in APC gene specifically named [id number] aka [id number]). Somatic testing ordered 06/22/21 02/03/2021 Other Ultrasound [...] Chemotherapy CARBOplatin AUC 6 / PACLitaxel ( STEAM TABLE WORKER ) Start Date: 02/25/2021 Completed 3 [...] Chemotherapy CARBOplatin AUC 6 / PACLitaxel ( STEAM TABLE WORKER ) Start Date: 02/25/2021 Adjuvant chemotherapy, [...] plan; patient expressed understanding of the content. TRICIAN BUS documented in this encounter Plan of Treatment Upcoming Encounters Date Type Specialty Care Team Description 04/11/2022 Clinical Communication Admitting/Central Scheduling 04/13/2022 Appointment Laboratory Medicine Debbie Ivey M.D. [address] [place] [phone] 04/13/2022 Office Visit Oncology Walter Barnhart M.D., Ph.D. [address] [place] [address] documented as of this encounter Visit Diagnoses Diagnosis 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 Care Teams Sr. Logistics Analyst Relationship Specialty Start Date End Date Elsewhere, Pcp PCP - General Internal Medicine 07/08/21 documented as of this encounter
--- OUTSIDE RECORDS SUMMARY | 2022-03-16 10:28 | XMS_ITS | Encounter Summary ---
:1975 Author Organization [facility] Address [address] [place] [address] Care Team Providers Name Role Phone Unavailable Primary Care Provider Unavailable Encounter Details Date Type Department Care Team Description 06/24/2021 Clinical Communication Department of Denisha Oviedo Obstetrics and Kelly Box Gynecology in [address] [place] [address] [place] [phone] [place], [place] [phone] (Work) [phone] Social History Tobacco Use Types Packs/Day Years [...] CST Relayed message to Path sent out ATIONAL THERAPIST Telephone Encounter - Yuliana Pro - 06/24/2021 12:23 PM CST Path send away called and was asking which biopsy they want us to use. It is not listed on the [facility] form. Let me know and I will call them back. Thanks! Yuliana ATIONAL THERAPIST documented in this encounter Plan of Treatment Upcoming Encounters Date Type Specialty Care Team Description 04/11/2022 Clinical Communication Admitting/Central Scheduling 04/13/2022 Appointment Laboratory Medicine Debbie Ivey M.D. [address] [place] [address] 04/13/2022 Office Visit Oncology Walter Barnhart M.D., Ph.D. [address] [place] [address] documented as of this encounter Visit Diagnoses Not on filedocumented in this encounter
--- OUTSIDE RECORDS SUMMARY | 2022-03-16 10:28 | XMS_ITS | Encounter Summary ---
:1975 Author Organization [facility] Address [address] [place] [address] Care Team Providers Name Role Phone Elsewhere, Pcp Primary Care Provider Unavailable Encounter Details Date Type Department Care Team Description 07/08/2021 Office Visit Department of Family Ned Sprague Only Medicine in [facility] Daniel RAustin (Primary Dx) [place], [place] [address] [place] [phone] Social History Tobacco Use Types Packs/Day Years [...] or relatives? How often do you attend sikhism or 1 to 4 times per year 02/09 yazidism services? Do you belong to any clubs or Yes 02/26/2021 organizations such as sikhism groups, unions, fraternal or athletic groups, or [...] vaccinations today,last time I had mine in Center''.Review Appraiser Checked for due vaccinations and was unable to see and requested another clinic nurse and discussed with Brenda Blake and And after searching the chart for vaccination details,technical proposal writer called Center oncology(nurse practitioner's nurse answered the phone call) and said.,''from Center they cannot place an order,but patient has [...] why you did not tell me earlier Review Appraiser explained to the patient that,technical proposal writer cannot open the chart ahead of a day for patient's detail. Patient understood and left the FORENSIC MATERIALS ENGINEER clinic after blood draw. TRUCTION ASSISTANT documented in this encounter Plan of Treatment Upcoming Encounters Date Type Specialty Care Team Description 04/11/2022 Clinical Communication Admitting/Central Scheduling 04/13/2022 Appointment Laboratory Medicine Debbie Ivey M.D. [address] [place] [phone] 04/13/2022 Office Visit Oncology Walter Barnhart M.D., Ph.D. [address] [place] [phone] documented as of this encounter Visit Diagnoses Diagnosis Immunization Only - Primary documented in this encounter Care Teams Forest Law And Policy Professor Relationship Specialty Start Date End Date Elsewhere, Pcp PCP - General Internal Medicine 1/28/22 documented as of this encounter
--- OUTSIDE RECORDS SUMMARY | 2022-03-16 10:28 | XMS_ITS | Encounter Summary ---
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 [place], [place] [address] [place] [address] [place], [place] [phone] (Wo rk) Social History Tobacco Use Types [...] 1 to 4 times per year 02/09 advent services? Do you belong to any clubs [...] or slept in a half-way (including now)? Education Answer Date Recorded What [...] Laboratory Medicine Debbie Ivey M.D. [address] [place] [phone] 04/13/2022 Office Visit Oncology Walter Barnhatr M.D., Ph.D. [address] [place] [address] documented as of this encounter Visit Diagnoses Diagnosis Malignant Neoplasm Of Ovary Laterality U nknown (HCC) - Primary Neutropenia Drug Induced (HCC) documented in this encounter Administered Medications Inactive Administered Medications - up to 3 most recent administrations Medication Order MAR Action Action Date Dose Rate Site CARBOplatin 650 mg in NaCl New Bag 06/20/2021 2:40 PM CHAIR INSPECTOR AND LEVELER 650 mg 680 mL/hr 0.9% 340 mL IVPB (PARAPLATIN) 650 mg (rounded from 648 mg, Target AUC = 6), intravenous, at 680 mL/hr, Administer over 30 Minutes, Once, On 06/20/21 at 1245, For 1 dose dexamethasone in NaCl 0.9% IVPB 12 New Bag 06/20/2021 9:20 AM CHAIR INSPECTOR AND LEVELER 12 mg 200 mL/hr mg (DECADRON) 12 mg, intravenous, at 200 mL/hr, Administer over 15 Minutes, Once, On Sun06/20/21 at 0915, For 1 dose, Give prior to PACLitaxel Refrigerate diphenhydrAMINE 50 mg in NaCl 0.9% New Bag 06/20/2021 10:04 AM CHAIR INSPECTOR AND LEVELER 50 mg 204 mL/hr IVPB (BENADRYL) 50 mg, intravenous, at 204 mL/hr, Administer over 15 Minutes, Once, On Sun06/20/21 at 0915, For 1 dose, Pre taxol. ivpb vs ivp to help with symptoms famotidine injection 20 mg (PEPCID) Given 06/20/2021 9:19 AM CHAIR INSPECTOR AND LEVELER 20 mg 20 mg, intravenous, Once, On [...] 16 mg New Bag 06/20/2021 9:46 AM CHAIR INSPECTOR AND LEVELER 16 mg 232 mL/hr (ZOFRAN) 16 mg, intravenous, at 232 mL/hr, Administer over 15 Minutes, Once, On Sun06/20/21 at 0915, For 1 dose PACLitaxeL 288 mg in NaCl 0.9% New Bag 06/20/2021 11:02 AM CHAIR INSPECTOR AND LEVELER 288 mg 108 mL/hr (non-PVC) 323 mL IVPB (TAXOL) 288 mg (rounded from 285.25 mg = 175 mg/m2 ? 1.63 m2 Treatment Plan BSA from Measured weight), intravenous, at 108 mL/hr, Administer over 3 Hours, Once, On Sun06/20/21 at 0945, For 1 dose, Administer via 0.22 micron in-line filter. pegfilgrastim on-body injector Given 06/20/2021 2:42 PM CHAIR INSPECTOR AND LEVELER 6 mg Left Lower Abdomen 6 mg (NEULASTA ONPRO) 6 mg, subcutaneous, Once, On 06/20/21 at 0915, For 1 dose documented in this encounter
--- OUTSIDE RECORDS SUMMARY | 2022-03-16 10:28 | XMS_ITS | Encounter Summary ---
:1975 Author Organization [facility] Address [address] [place] [address] Care Team Providers Name Role Phone Unavailable Primary Care Provider Unavailable Reason for Visit Reason Comments Post Surgery, Chemo Questions Encounter Details Date Type Department Care Team Description 05/20/2021 Clinical Communication Department of Walter Barnhart [facility] Surgery, Chemo Oncology in SKelly, Ph.D. Questions Amo, [facility] [address] [place], [place] [address] [facility] [address] [place], [place] [phone] (Work) [phone] Social History Tobacco Use Types Packs/Day Years [...] Admitting/Central Scheduling 04/13/2022 Appointment Laboratory Medicine Debbie Ivye M.D. [address] [place] [phone] 04/13/2022 Office Visit Oncology Walter Barnhart M.D., Ph.D. [address] [place] [phone] documented as of this encounter Visit Diagnoses Not on filedocumented in this encounter
--- OUTSIDE RECORDS SUMMARY | 2022-03-16 10:28 | XMS_ITS | Encounter Summary ---
:1975 [address] [facility] Address [address] [place] [address] Care Team Providers Name Role Phone Unavailable Primary Care Provider Unavailable Reason for Visit Reason Comments Intake Assessment Encounter Details Date Type Department Care Team Description 05/27/2021 Clinical Communication Department of Candie Monahan Assessment Oncology in [facility] [address] [facility] [address] [place] [phone] Social History Tobacco Use Types Packs/Day Years [...] 05/27/2021 11:22 AM CST Intake screening completed. NT PAVER documented in this encounter Plan of Treatment Upcoming Encounters Date Type Specialty Care Team Description 04/11/2022 Clinical Communication Admitting/Central Scheduling 04/13/2022 Appointment Laboratory Medicine Debbie Ivey M.D. [address] [place] [phone] 04/13/2022 Office Visit Oncology Walter Barnhart M.D., Ph.D. [address] [place] [phone] documented as of this encounter Visit Diagnoses Not on filedocumented in this encounter
--- OUTSIDE RECORDS SUMMARY | 2022-03-16 10:28 | XMS_ITS | Encounter Summary ---
:1975 Author Organization [facility] Address [address] [place] [address] Care Team Providers Name Role Phone Unavailable Primary Care Provider Unavailable Reason for Visit Reason Comments Moving Treatment Forward Encounter Details Date Type Department Care Team Description 05/20/2021 Clinical Communication Department of Walter Barnhart Treatment Oncology brittney De La Cruz M.D., Ph.D. Forward [place], [facility] [address] [place], [place] [address] [facility] [phone] [place], [place] [phone] (Work) [phone] Social History Tobacco Use Types Packs/Day Years [...] or relatives? How often do you attend methodist or 1 to 4 times per year 02/09 catholic services? Do you belong to any clubs or Yes 02/26/2021 organizations such as methodist groups, unions, fraternal or athletic groups, or [...] Laboratory Medicine Debbie Ivey M.D. [address] [place] [phone] 04/13/2022 Office Visit Oncology Walter Barnhart M.D., Ph.D. [address] [place] [phone] documented as of this encounter Visit Diagnoses Not on filedocumented in this encounter
--- OUTSIDE RECORDS SUMMARY | 2022-03-16 10:28 | XMS_ITS | Encounter Summary ---
:1975 Author Organization [facility] Address [address] [place] [address] Care Team Providers Name Role Phone Unavailable Primary Care Provider Unavailable Encounter Details Date Type Department Care Team Description 05/16/2021 Orders Only Department of Obstetrics and [facility], Darek Camara, [facility] [address] [facility] [address] [place] [phone] (Wo rk) Social History Tobacco Use Types [...] Laboratory Medicine Debbie Ivey M.D. [address] [place] [phone] 04/13/2022 Office Visit Oncology Walter Barnhart M.D., Ph.D. [address] [place] [phone] documented as of this encounter Visit Diagnoses Not on filedocumented in this encounter
--- OUTSIDE RECORDS SUMMARY | 2022-03-16 10:28 | XMS_ITS | Encounter Summary ---
:1975 Author Organization [facility] Address [address] [place] [address] Care Team Providers Name Role Phone Unavailable Primary Care Provider Unavailable Reason for Visit Reason Comments Post-op Visit Outpatient (Routine) - Closed Specialty Diagnoses / Procedures Referred By Contact Refer red To Contact Obstetrics and Ruben Rod M.D. [facility] Gynecology [address] [place] [phone] Referral ID Status Reason Start Date Expiration Date Visits Requ ested Visits Authorized [id number] Closed 05/13/2021 05/13/2022 1 1 Encounter Details Date Type Department Care Team Description 06/22/2021 Office Visit Department of Jessica Uribe Malignant N eoplasm Of Ovary Laterality Unknown (HCC) (Primary Dx); Obstetrics and DENNY, R.N. Follow Up Examination Postoperative Visi t Gynecology in [address] [place] [address] [place] [phone] [place], [place] [phone] (Work) [phone] Social History Tobacco Use Types Packs/Day Years [...] [facility]. Patient had negative germline BRCA testing, [...] communicated to her medical oncology team here. RACTS PARALEGAL documented in this encounter Plan of Treatment Upcoming Encounters Date Type Specialty Care Team Description 04/11/2022 Clinical Communication Admitting/Central Scheduling 04/13/2022 Appointment Laboratory Medicine Debbie Ivey M.D. [address] [place] [phone] 04/13/2022 Office Visit Oncology Walter Barnhart M.D., Ph.D. [address] [place] [phone] documented as of this encounter Visit Diagnoses Diagnosis Malignant Neoplasm Of Ovary Laterality U nknown (HCC) - Primary Follow Up Examination Postoperative Visi t documented in this encounter
--- OUTSIDE RECORDS SUMMARY | 2022-03-16 10:28 | XMS_ITS | Encounter Summary ---
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 [place], [place] [address] [place] [phone] [place], [place] [phone] (Wo rk) Social History Tobacco Use Types [...] Laboratory Medicine Debbie Ivey M.D. [address] [place] [phone] 04/13/2022 Office Visit Oncology Walter Barnhart M.D., Ph.D. [address] [place] [phone] documented as of this encounter Visit Diagnoses Diagnosis Malignant Neoplasm Of Ovary Laterality U nknown (HCC) - Primary Neutropenia Drug Induced (HCC) documented in this encounter Administered Medications Inactive Administered Medications - up to 3 most recent administrations Medication Order MAR Action Action Date Dose Rate Site CARBOplatin 700 mg in NaCl New Bag 05/30/2021 4:13 PM WIRE COILER MACHINE OPERATOR 700 mg 690 mL/hr 0.9% 345 mL IVPB (PARAPLATIN) 700 mg (rounded from 697.8 mg, Target AUC = 6), intravenous, at 690 mL/hr, Administer over 30 Minutes, Once, On 05/30/21 at 1530, For 1 dose dexamethasone in NaCl 0.9% IVPB 12 New Bag 05/30/2021 12:20 PM WIRE COILER MACHINE OPERATOR 12 mg 200 mL/hr mg (DECADRON) 12 mg, intravenous, at 200 mL/hr, Administer over 15 Minutes, Once, On Sun05/30/21 at 1200, For 1 dose, Give prior to PACLitaxel Refrigerate diphenhydrAMINE 50 mg in NaCl 0.9% New Bag 05/30/2021 12:38 PM WIRE COILER MACHINE OPERATOR 50 mg 204 mL/hr IVPB (BENADRYL) 50 mg, intravenous, at 204 mL/hr, Administer over 15 Minutes, Once, On Sun05/30/21 at 1200, For 1 dose, Pre taxol. ivpb vs ivp to help with symptoms famotidine injection 20 mg (PEPCID) Given 05/30/2021 11:59 AM WIRE COILER MACHINE OPERATOR 20 mg 20 mg, intravenous, Once, On [...] mg New Bag 05/30/2021 12:03 P M WIRE COILER MACHINE OPERATOR 16 mg 232 mL/hr (ZOFRAN) 16 mg, intravenous, at 232 mL/hr, Administer over 15 Minutes, Once, On Sun05/30/21 at 1200, For 1 dose PACLitaxeL 288 mg in NaCl 0.9% New Bag 05/30/2021 1:30 PM WIRE COILER MACHINE OPERATOR 288 mg 99.3 mL/hr (non-PVC) 298 mL IVPB (TAXOL) 288 mg (rounded from 285.25 mg = 175 mg/m2 ? 1.63 m2 Treatment Plan BSA from Measured weight), intravenous, at 99.3 mL/hr, Administer over 3 Hours, Once, On Sun05/30/21 at 1230, For 1 dose, Administer via 0.22 micron in-line filter. documented in this encounter
--- OUTSIDE RECORDS SUMMARY | 2022-03-16 10:28 | XMS_ITS | Encounter Summary ---
:1975 Author Organization [facility] Address [address] [place] [address] Care Team Providers Name Role Phone Unavailable Primary Care Provider Unavailable Reason for Visit Reason Comments Intake Assessment Encounter Details Date Type Department Care Team Description 06/16/2021 Clinical Communication Department of Marychuy Kapoor Assessment Oncology in , [facility], C.N.P., M.S.N. [place] [address] [address] [facility] [[email or web address] [address] [place] [phone] Social History Tobacco Use Types Packs/Day Years [...] 1 to 4 times per year 02/09 latter day services? Do you belong to any clubs [...] - 06/16/2021 9:40 AM CST Intake done ITURE CRATER documented in this encounter Plan of Treatment Upcoming Encounters Date Type Specialty Care Team Description 04/11/2022 Clinical Communication Admitting/Central Scheduling 04/13/2022 Appointment Laboratory Medicine Debbie Ivey M.D. [address] [place] [phone] 04/13/2022 Office Visit Oncology Walter Barnhart M.D., Ph.D. [address] [place] [phone] documented as of this encounter Visit Diagnoses Not on filedocumented in this encounter
--- OUTSIDE RECORDS SUMMARY | 2022-03-16 10:28 | XMS_ITS | Encounter Summary ---
:1975 Author Organization [facility] Address [address] [place] [address] Care Team Providers Name Role Phone Unavailable Primary Care Provider Unavailable Reason for Visit Episode Based Medications (Routine) - Authorized Specialty Diagnoses / Procedures Referred By Contact Refer red To Contact Diagnoses Malignant Neoplasm Of Ovary Laterality Unknown (HCC) Walter Barnhart M.D., R st Onc Rogo Procedures OR CARBOPLATIN INJECTION OR PACLITAXEL INJECTION OR INJECTION, PEGFILGRASTIM 6MG OR DEXAMETHASONE SODIUM PHOS Ph.D. [address] [facility] [address] [place] [phone] Referral ID Status Reason Start Date Expiration Date Visits V isits Requested Authorized [id number] Authorized 02/17/2021 02/17/2022 12 12 Encounter Details Date Type Department Care Team Description 06/20/2021 Office Visit Department of Marychuy Kapoor Malignan t Neoplasm Of Ovary Laterality Unknown (HCC); Oncology in TILE SETTER APPRENTICE, C.N.P., Neutropenia Dr hannah Lorenzo (HCC) [place], [place] M.S.N. [address] [facility] [address] [place] [phone] Social History Tobacco Use Types Packs/Day Years [...] or relatives? How often do you attend jew or 1 to 4 times per year 02/09 yarsanism services? Do you belong to any clubs or Yes 02/26/2021 organizations such as jew groups, unions, fraternal or athletic groups, or [...] Comments Blood Pressure 125/81 06/20/2021 8:07 AM CINETECHNICIAN Pulse 60 06/20/2021 8:07 AM CINETECHNICIAN Temperature 35.5 ??C (95.9 ??F) 06/20/2021 8:07 AM CINETECHNICIAN Respiratory Rate 16 06/20/2021 8:07 AM CINETECHNICIAN Oxygen Saturation 100% 06/20/2021 8:07 AM CINETECHNICIAN Inhaled Oxygen Concentration - - Weight 56.2 kg (123 lb 14.4 oz) 06/20/2021 8:07 AM CINETECHNICIAN Height 169.2 cm (5' 6.61) 06/20/2021 8:07 AM CINETECHNICIAN Body Mass Index 19.63 06/20/2021 8:07 AM CINETECHNICIAN documented in this encounter Progress Notes Marychuy Kapoor APRN, C.N.P., M.S.N. - 06/20/2021 8:20 AM CST CHIEF COMPLAINT/PUPROSE OF VISIT: Ms. Yang is a 45 y.o. woman with stage IVB high-grade serous ovarian cancer Collaborating provider: Dr. Walter Barnhart [phone]) HISTORY OF PRESENT ILLNESS: Ms. Yang is a very pleasant 45 y.o. 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 Variant of Uncertain Significance (VUS) found in APC gene specifically named [id number] aka [id number]). 02/03/2021 Other Ultrasound with bilateral complex solid [...] Chemotherapy CARBOplatin AUC 6 / PACLitaxel ( WIDE AREA NETWORK ENGINEER ) Start Date: 02/25/2021 Completed 3 cycles [...] Chemotherapy CARBOplatin AUC 6 / PACLitaxel ( WIDE AREA NETWORK ENGINEER ) Start Date: 02/25/2021 Adjuvant chemotherapy, cycles [...] plan; patient expressed understanding of the content. TECHNICIAN documented in this encounter Miscellaneous Notes Addendum Note - Adriane Uribe APRN, C.N.P. - 06/20/2021 8:20 AM CINETECHNICIAN Addended by: ADRIANE URIBE on: 06/22/2021 11:42 AM Modules accepted: Orders TECHNICIAN documented in this encounter Plan of Treatment Upcoming Encounters Date Type Specialty Care Team Description 04/11/2022 Clinical Communication Admitting/Central Scheduling 04/13/2022 Appointment Laboratory Medicine Debbie Ivey M.D. [address] [place] [phone] 04/13/2022 Office Visit Oncology Walter Barnhart M.D., Ph.D. [address] [place] [phone] Scheduled Orders Name Type Priority Associated Diagnoses Order S daniella [id number] [facility] CDx Lab Routine Malignant Neop lasm Of Expected: 06/22/2021 - Miscellaneous Test Ovary Laterality (Ap proximate), Unknown (HCC) Expires: 09/20 documented as of this encounter Procedures Procedure Name Priority Date/Time Associated Diagnosis Comme nts [facility] MYRIAD Routine 05/09/2021 12:06 PM Results for this GENETICS LAB CINETECHNICIAN procedure are i n the results section. documented in this encounter Results [facility]etics Lab (05/09/2021 12:06 PM CINETECHNICIAN) P athologist Signature Test Name [facility] CDx 07/04/2021 MYRI 11:17 AM CINETECHNICIAN Result SEE COMMENT 07/19/2021 MYRI 10:14 AM CINETECHNICIAN Comment: For final report, select Lab-Send Out L ab Results hyperlink below. Specimen Anatomical Collection Method Collection Time Receive d Time (Source) Location / / Volume Laterality Varies 05/09/2021 12:06 07/04/2021 PM CINETECHNICIAN 11:17 AM CINETECHNICIAN Narrative This result has an attachment that is no t available. Adriane Uribe APRN, R.N. LAB [facility] ORDERABLES Performing Organization Address City/State/ZIP Code Phon e Number [employer] [address] [place] [address] [employer] [address] [employer] [address] documented in this encounter Visit Diagnoses Diagnosis 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
--- OUTSIDE RECORDS SUMMARY | 2022-03-16 10:28 | XMS_ITS | Encounter Summary ---
:1975 Author Organization [facility] Address [address] [place] [address] Care Team Providers Name Role Phone Unavailable Primary Care Provider Unavailable Reason for Visit Reason Comments Intake Assessment Encounter Details Date Type Department Care Team Description 07/06/2021 Clinical Communication Department of Marychuy Kapoor Assessment Oncology in , [facility], C.N.P., M.S.N. [place] [address] [address] [facility] [address] [place] [phone] Social History Tobacco Use Types Packs/Day Years [...] - 07/06/2021 11:32 AM CST Intake done CASHIER documented in this encounter Plan of Treatment Upcoming Encounters Date Type Specialty Care Team Description 04/11/2022 Clinical Communication Admitting/Central Scheduling 04/13/2022 Appointment Laboratory Medicine Debbie Ivey M.D. [address] [place] [phone] 04/13/2022 Office Visit Oncology Walter Barnhart M.D., Ph.D. [address] [place] [phone] documented as of this encounter Visit Diagnoses Not on filedocumented in this encounter
--- OUTSIDE RECORDS SUMMARY | 2022-03-16 10:28 | XMS_ITS | Encounter Summary ---
:1975 Author Organization [facility] Address [address] [place] [address] Care Team Providers Name Role Phone Unavailable Primary Care Provider Unavailable Reason for Referral Outpatient (Routine) - Closed Specialty Diagnoses / Procedures Referred By Contact Refer red To Contact Oncology Candie Monahan APR N, C.N.P. [facility] [address] [place] [phone] Referral ID Status Reason Start Date Expiration Date Visits Requ ested Visits Authorized [id number] Closed 05/30/2021 05/30/2022 1 1 HOUSE TENDER MRI/CAT/PET Scan (Routine) - Closed Specialty Diagnoses / Procedures Referred By Contact Refer red To Contact Radiology Diagnoses Malignant Neoplasm Of Ovary Laterality Unknown (HCC) Candie Monahan APRN, [facility] Procedures CT Abdomen Pelvis with IV Contrast RI CT ABD&PELVIS W CNTRST C.N.P. [address] [place] [phone] Referral ID Status Reason Start Date Expiration Date Visits Requ ested Visits Authorized [id number] Closed 07/22/2021 08/19/2021 1 1 HOUSE TENDER MRI/CAT/PET Scan (Routine) - Closed Specialty Diagnoses / Procedures Referred By Contact Refer red To Contact Radiology Diagnoses Malignant Neoplasm Of Ovary Laterality Unknown (HCC) Candie Monahan APRN, [place] [facility] Procedures CT Chest with IV Contrast RI CT THORAX W CNTRST RI 3D WO IND WORKSTATION C.N.P. [address] [place] [phone] Referral ID Status Reason Start Date Expiration Date Visits Requ ested Visits Authorized [id number] Closed 07/22/2021 08/19/2021 1 1 HOUSE TENDER Reason for Visit Outpatient (Routine) - Closed Specialty Diagnoses / Procedures Referred By Contact Refer red To Contact Oncology Walter Barnhart M. D., Ph.D. [facility] [address] [place] [phone] Referral ID Status Reason Start Date Expiration Date Visits Requ ested Visits Authorized [id number] Closed 05/04/2021 05/04/2022 1 1 Encounter Details Date Type Department Care Team Description 05/30/2021 Office Visit Department of Oncology Candie Monahan M alignant Neoplasm Of in [place], [place], C.N.P. Ovary Laterality [place] [address] [facility] Unknown (HCC) (Primary [address] [place] [address] Dx) [place] [phone] Social History Tobacco Use Types Packs/Day Years [...] Comments Blood Pressure 117/71 05/30/2021 9:03 AM MIX HOUSE TENDER Pulse 68 05/30/2021 9:03 AM MIX HOUSE TENDER Temperature 36.3 ??C (97.3 ??F) 05/30/2021 9:03 AM MIX HOUSE TENDER Respiratory Rate 14 05/30/2021 9:03 AM MIX HOUSE TENDER Oxygen Saturation 100% 05/30/2021 9:03 AM MIX HOUSE TENDER Inhaled Oxygen Concentration - - Weight 57 kg (125 lb 10.6 oz) 05/30/2021 9:03 AM MIX HOUSE TENDER Height - - Body Mass Index 20.44 05/09/2021 7:27 AM MIX HOUSE TENDER documented in this encounter Progress Notes Candie Monahan, DRIER TENDER, C.N.P. - 05/30/2021 9:00 AM CST SUBJECTIVE [...] in 2020; BRCAnalysis with MyRisk panel from [facility]. Variant of Uncertain Significance (VUS) found in APC gene specifically named [id number] aka [id number]). 02/03/2021 Other Ultrasound with bilateral complex solid [...] Chemotherapy CARBOplatin AUC 6 / PACLitaxel ( NUCLEAR REACTOR TECHNICIAN ) Start Date: 02/25/2021 Completed 3 cycles [...] Chemotherapy CARBOplatin AUC 6 / PACLitaxel ( NUCLEAR REACTOR TECHNICIAN ) Start Date: 02/25/2021 Adjuvant chemotherapy, cycles [...] we need to schedule them here in [place]. ECOG score of 1 PATIENT EDUCATION Ready to learn, no apparent learning barriers were identified; learning preferences include listening. Explained diagnosis and treatment plan; patient expressed understanding of the content. HOUSE TENDER documented in this encounter Plan of Treatment Upcoming Encounters Date Type Specialty Care Team Description 04/11/2022 Clinical Communication Admitting/Central Scheduling 04/13/2022 Appointment Laboratory Medicine Debbie Ivey M.D. [address] [place] [phone] 04/13/2022 Office Visit Oncology Walter Barnhart M.D., Ph.D. [address] [place] [phone] Scheduled Referrals Name Type Priority Associated Diagnoses Order S chedule Oncology office Outpatient Referral Routine Expec jace: visit (clinic) 08/01/2021 General; NUCLEAR REACTOR TECHNICIAN (Approximate), Expires: 08/01/2022 documented as of this encounter Results CT Abdomen Pelvis with IV Contrast (08/04/2021 11:49 AM MIX HOUSE TENDER) Anatomical Region Laterality Modality Abdomen, Pelvis, Abdominal RST LOS, N/A Comp uted Tomography, Computed Abdominal ARZ LOS, Abdominal FLA LOS Aldo ography Specimen (Source) Anatomical Collection Method Collection Time Re ceived Time Location / / Volume Laterality 08/04/2021 11:44 AM MIX HOUSE TENDER Impressions 08/04/2021 12:37 PM MIX HOUSE TENDER New postoperative changes in the abdomen and pelvis for resection of the patient's ovarian carcinoma. No definite residual/ recurrent or metastatic disease. There is minimal soft tissue nodularity subjacent to the left hemidiaphragm that is technically indeterminant for postoperative change versus a metastatic implant and surveillance would likely be beneficial. Narrative 08/04/2021 12:37 PM MIX HOUSE TENDER EXAM: ??CT ABDOMEN PELVIS WITH IV CONTRAST [...] for a metastatic implant and attention at [facility] ow-up would likely be beneficial. No [...] for a metastatic implant and attention at [facility] ow-up would likely be beneficial. No [...] Chest with IV Contrast (08/04/2021 11:49 AM MIX HOUSE TENDER) Anatomical Region Laterality Modality Chest, Thoracic RST LOS, Thoracic ARZ N/A Co mputed Tomography, Computed LOS, Thoracic ARZ LOS, Thoracic FLA Rene graphy LOS Specimen (Source) Anatomical Collection Method Collection Time Re ceived Time Location / / Volume Laterality 08/04/2021 11:45 AM MIX HOUSE TENDER Impressions 08/04/2021 2:17 PM MIX HOUSE TENDER 1. No change since 05/02/2021. 2. Tiny pulmonary nodules are also uncha nged dating back to 02/11/2021, and though indeterminate, are most likely benign. Narrative 08/04/2021 2:17 PM MIX HOUSE TENDER EXAM: CT CHEST WITH IV CONTRAST COMPARISON: [...] Continued stability of a few tiny pulmon ihsa nodules, for example superior segment of the [...] Creatinine with Estimated GFR (08/04/2021 10:14 AM MIX HOUSE TENDER) P athologist Signature Creatinine 0.74 0.59 - 08/04/2021 DTL 1.04 mg/dL 11:11 AM MIX HOUSE TENDER eGFR-Non >90 >=60 08/04/2021 DTL Black/ mL/min/BSA 11:11 AM MIX HOUSE TENDER [place] Comment: ----ADDITIONAL INFORMATION---- Estimated GFR calculated using the 2009 CKD_EPI creatinine equation. eGFR-Black/ >90 >=60 mL/min/BSA 2021 11:11 AM MIX HOUSE TENDER DTL Comment: ----ADDITIONAL INFORMATION---- Estimated GFR calculated using the 2009 CKD_EPI creatinine equation. Specimen Anatomical Collection Method Collection Time Receive d Time (Source) Location / / Volume Laterality Blood (Blood, 08/04/2021 10:14 08/04/2021 Venous) AM MIX HOUSE TENDER 10:55 AM MIX HOUSE TENDER Candie Monahan APRN, C.N.P. LAB BLOOD ADD-ON Performing Organization Address City/State/ZIP Code Phon e Number [facility] - [address] [place], [place] [address] [facility] [place] [address] Laboratories-[facility] [address] (ABNORMAL) CBC, Chemotherapy, No Alerts (08/04/2021 10:14 AM MIX HOUSE TENDER) Analysis Performed At Patho logist Time Signature Hemoglobin 13.0 11.6 - 08/04/2021 DTL 15.0 g/dL 10:50 AM MIX HOUSE TENDER Platelet Count 262 157 - 371 08/04/2021 DTL x10(9)/L 10:50 AM MIX HOUSE TENDER Leukocytes 3.2 (L) 3.4 - 9.6 08/04/2021 DTL x10(9)/L 10:50 AM MIX HOUSE TENDER Neutrophils 1.20 (L) 1.56 - 08/04/2021 DTL 6.45 10:50 AM MIX HOUSE TENDER x10(9)/L Specimen Anatomical Collection Method Collection Time Receive d Time (Source) Location / / Volume Laterality Blood (Blood, 08/04/2021 10:14 08/04/2021 Venous) AM MIX HOUSE TENDER 10:41 AM MIX HOUSE TENDER Candie Monahan APRN, Carly.N.P. LAB BLOOD ADD-ON Performing Organization Address City/[facility] Phon e Number [facility] - [address] [place], [place] [address] [facility] [place] [address] Laboratories-[facility] [address] [facility] Cancer Antigen 125 (CA 125) (08/04/2021 10:14 AM MIX HOUSE TENDER) athologist Signature Cancer Ag 125 5 <46 U/mL 08/04/2021 [facility] (CA 125), S 2:33 PM MIX HOUSE TENDER Comment: ----ADDITIONAL INFORMATION---- The testing method is [...] (Blood, 08/04/2021 10:14 08/04/2021 1:44 Venous) AM MIX HOUSE TENDER PM MIX HOUSE TENDER Candie Monahan APRN, C.N.P. LAB BLOOD ADD-ON Performing Organization Address City/[facility] Phon e Number [facility] [address] [place], [place] [address] [facility] [address] Laboratory Medicine and Pathology [address] Bilirubin, Direct (08/04/2021 10:14 AM MIX HOUSE TENDER) athologist Signature Bilirubin, <0.2 0.0 - 0.3 08/04/2021 DTL Direct, S mg/dL 11:11 AM MIX HOUSE TENDER Specimen Anatomical Collection Method Collection Time Receive d Time (Source) Location / / Volume Laterality Blood (Blood, 08/04/2021 10:14 08/04/2021 Venous) AM MIX HOUSE TENDER 10:55 AM MIX HOUSE TENDER Candie Monahan APRN, Carly.N.P. LAB BLOOD ADD-ON Performing Organization Address City/[facility]/ZIP Code Phon e Number [facility] - [address] [place], [place] [address] [place], [place] [phone] [place] [address] Bilirubin, Total (08/04/2021 10:14 AM MIX HOUSE TENDER) athologist Signature Bilirubin, 0.5 <=1.2 mg/dL 08/04/2021 DTL Total, S 11:11 AM MIX HOUSE TENDER Specimen Anatomical Collection Method Collection Time Receive d Time (Source) Location / / Volume Laterality Blood (Blood, 08/04/2021 10:14 08/04/2021 Venous) AM MIX HOUSE TENDER 10:55 AM MIX HOUSE TENDER Candie Monahan APRN, C.N.P. LAB BLOOD ADD-ON Performing Organization Address City/[facility]/ZIP Code Phon e Number [facility] - [address] [place], [place] [address] [place], [place] [phone] [place] [address] AST (Aspartate Aminotransferase) (08/04/2021 10:14 AM MIX HOUSE TENDER) [facility] Method Time Signature Aspartate 32 8 - 43 08/04/2021 DTL Aminotransferase U/L 11:11 AM MIX HOUSE TENDER (AST), S Specimen Anatomical Collection Method Collection Time Receive d Time (Source) Location / / Volume Laterality Blood (Blood, 08/04/2021 10:14 08/04/2021 Venous) AM MIX HOUSE TENDER 10:55 AM MIX HOUSE TENDER Candie Monahan APRN, Carly.N.P. LAB BLOOD ADD-ON Performing Organization Address City/State/ZIP Code Phon e Number [facility] - [address] [address] Laboratories-[place] [address] [address] [facility] ALT (Alanine Aminotransferase) (08/04/2021 10:14 AM MIX HOUSE TENDER) [facility] gist Method Time Signature Alanine 23 7 - 45 08/04/2021 DTL Aminotransferase U/L 11:11 AM MIX HOUSE TENDER (ALT), S Specimen Anatomical Collection Method Collection Time Receive d Time (Source) Location / / Volume Laterality Blood (Blood, 08/04/2021 10:14 08/04/2021 Venous) AM MIX HOUSE TENDER 10:55 AM MIX HOUSE TENDER Candie Monahan APRN, C.N.P. LAB BLOOD ADD-ON Performing Organization Address City/State/ZIP Code Phon e Number [facility] - [address] [address] [facility]-[address] documented in this encounter Visit Diagnoses Diagnosis Malignant Neoplasm Of Ovary Laterality U nknown (HCC) - Primary Malignant Neoplasm Of Ovary Laterality U nknown (HCC) documented in this encounter
--- OUTSIDE RECORDS SUMMARY | 2022-03-16 10:28 | XMS_ITS | Encounter Summary ---
:1975 Author Organization [facility] Address [address] [place] [address] Care Team Providers Name Role Phone Unavailable Primary Care Provider Unavailable Reason for Visit Episode Based Medications (Routine) - Authorized Specialty Diagnoses / Procedures Referred By Contact Refer red To Contact Diagnoses Malignant Neoplasm Of Ovary Laterality Unknown (HCC) Walter Barnhart M.D., R st On[facility] Procedures PA CARBOPLATIN INJECTION PA PACLITAXEL INJECTION PA INJECTION, PEGFILGRASTIM 6MG PA DEXAMETHASONE SODIUM PHOS Ph.D. [address] [facility] [address] [place] [phone] Referral ID Status Reason Start Date Expiration Date Visits V isits Requested Authorized [id number] Authorized 02/17/2021 02/17/2022 12 12 Encounter Details Date Type Department Care Team Description 06/19/2021 Hospital Encounter Department of Marychuy Kapoor Neoplasm Of Ovary Laterality Unknown (HCC); Laboratory Medicine DENNY Sanchez, C.N.PChapincito, Madhu munoz Drug Induced (HCC) in [facility] [address] [facility] [address] [place] [phone] Social History Tobacco Use Types Packs/Day Years [...] Sig Dispensed Refills Start Date End Date uvauopm-edbm-qgoyc-oreg- Take 1 tablet by 0 capryl 100 [...] Appointment Laboratory Medicine Debbie Ivey M.D. 200 [place] [phone] 04/13/2022 Office Visit Oncology Walter Barnhart M.D., Ph.D. 200 [place] [phone] documented as of this encounter Procedures Procedure Name Priority Date/Time Associated Comments Diagnosis CBC CHEMO - NO ALERTS Routine 06/19/2021 10:06 Malignant Neopl asm Results for this AM PERSONAL FINANCIAL COUNSELOR Of Ovary procedure are i n Laterality Unknown the resul ts (HCC) section. Neutropenia Drug Induced (HCC) CANCER AG 125 (CA 125), Routine 06/19/2021 10:06 Malignant Juan plasm Results for this S AM PERSONAL FINANCIAL COUNSELOR Of Ovary procedure are i n Laterality Unknown the resul ts (HCC) section. Neutropenia Drug Induced (HCC) ASPARTATE Routine 06/19/2021 10:06 Malignant Neoplasm Resul ts for this AMINOTRANSFERASE (AST), AM PERSONAL FINANCIAL COUNSELOR Of Ovary proc edure are in S/P Laterality Unknown the resul ts (HCC) section. Neutropenia Drug Induced (HCC) CREATININE WITH EGFR, Routine 06/19/2021 10:06 Malignant Neopl asm Results for this S/P AM PERSONAL FINANCIAL COUNSELOR Of Ovary procedure are i n Laterality Unknown the resul ts (HCC) section. Neutropenia Drug Induced (HCC) BILIRUBIN, TOT, S/P Routine 06/19/2021 10:06 Malignant Neoplas m Results for this AM PERSONAL FINANCIAL COUNSELOR Of Ovary procedure are i n Laterality Unknown the resul ts (HCC) section. Neutropenia Drug Induced (HCC) documented in this encounter Results Creatinine with Estimated GFR (06/19/2021 10:06 AM PERSONAL FINANCIAL COUNSELOR) P athologist Signature Creatinine 0.77 0.59 - 06/19/2021 NPRG 1.04 mg/dL 10:43 AM PERSONAL FINANCIAL COUNSELOR eGFR-Black/Afric >90 >=60 06/19/2021 NPRG an Samoan mL/min/BSA 10:43 AM PERSONAL FINANCIAL COUNSELOR Comment: ----ADDITIONAL INFORMATION---- Estimated GFR calculated using the 2009 CKD_EPI creatinine equation. eGFR Non-Black/ >90 >=60 mL/min/BSA 06/19/2021 10:43 AM PERSONAL FINANCIAL COUNSELOR NPRG Comment: ----ADDITIONAL INFORMATION---- Estimated GFR calculated using the 2009 CKD_EPI creatinine equation. Specimen Anatomical Collection Method Collection Time Receive d Time (Source) Location / / Volume Laterality Blood (Blood, 06/19/2021 10:06 06/19/2021 Venous) AM PERSONAL FINANCIAL COUNSELOR 10:10 AM PERSONAL FINANCIAL COUNSELOR Marychuy Kapoor APRN, C.N.P., M.S.N. LAB BLOOD ADD-ON Performing Organization Address City/State/ZIP Code Phon e Number [facility]- [address] [place], [place] [address] [place] [address] [place] [address] [facility] [address] (ABNORMAL) CBC, Chemotherapy, No Alerts (06/19/2021 10:06 AM PERSONAL FINANCIAL COUNSELOR) Analysis Performed At Patho logist Time Signature Hemoglobin 11.3 (L) 11.6 - 06/19/2021 NPRG 15.0 g/dL 10:32 AM PERSONAL FINANCIAL COUNSELOR Platelet Count 340 157 - 371 06/19/2021 NPRG x10(9)/L 10:32 AM PERSONAL FINANCIAL COUNSELOR Leukocytes 3.7 3.4 - 9.6 06/19/2021 NPRG x10(9)/L 10:32 AM PERSONAL FINANCIAL COUNSELOR Neutrophils 1.27 (L) 1.56 - 06/19/2021 NPRG 6.45 10:32 AM PERSONAL FINANCIAL COUNSELOR x10(9)/L Specimen Anatomical Collection Method Collection Time Receive d Time (Source) Location / / Volume Laterality Blood (Blood, 06/19/2021 10:06 06/19/2021 Venous) AM PERSONAL FINANCIAL COUNSELOR 10:10 AM PERSONAL FINANCIAL COUNSELOR Carly Correa APRN.N.Katie., M.S.N. LAB BLOOD ADD-ON Performing Organization Address City/[facility] Phon e Number [address] Bilirubin, Total (06/19/2021 10:06 AM PERSONAL FINANCIAL COUNSELOR) P athologist Signature Bilirubin, 0.2 <=1.2 mg/dL 06/19/2021 NPRG Total, P 10:43 AM PERSONAL FINANCIAL COUNSELOR Specimen Anatomical Collection Method Collection Time Receive d Time (Source) Location / / Volume Laterality Blood (Blood, 06/19/2021 10:06 06/19/2021 Venous) AM PERSONAL FINANCIAL COUNSELOR 10:10 AM PERSONAL FINANCIAL COUNSELOR Carly Correa APRN.N.P., M.S.N. LAB BLOOD ADD-ON Performing Organization Address City/[facility] Phon e Number [address] LAB NPRG [place] [phone] [address] AST (Aspartate Aminotransferase) (06/19/2021 10:06 AM PERSONAL FINANCIAL COUNSELOR) Patholo gist Method Time Signature Aspartate 36 8 - 43 06/19/2021 NPRG Aminotransferase U/L 10:43 AM PERSONAL FINANCIAL COUNSELOR (AST), P Specimen Anatomical Collection Method Collection Time Receive d Time (Source) Location / / Volume Laterality Blood (Blood, 06/19/2021 10:06 06/19/2021 Venous) AM PERSONAL FINANCIAL COUNSELOR 10:10 AM PERSONAL FINANCIAL COUNSELOR Marychuy Kapoor APRN, C.N.P., M.S.N. LAB BLOOD ADD-ON Performing Organization Address City/State/ZIP Code Phon e Number [facility]- [address] [place], [place] [address] [place] [address] LAB NPRG [facility] [place] [address] [place] [address] [place] Cancer Antigen 125 (CA 125) (06/19/2021 10:06 AM PERSONAL FINANCIAL COUNSELOR) P athologist Signature Cancer Ag 125 11 <46 U/mL 06/21/2021 [facility] (CA 125), S 10:54 AM PERSONAL FINANCIAL COUNSELOR Comment: ----ADDITIONAL INFORMATION---- The testing method is [...] Blood (Blood, 06/19/2021 10:06 06/21/2021 Venous) AM PERSONAL FINANCIAL COUNSELOR 10:21 AM PERSONAL FINANCIAL COUNSELOR Marychuy Kapoor APRN, C.N.P., M.S.N. LAB BLOOD ADD-ON Performing Organization Address City/State/ZIP Code Phon e Number [facility] [address] [place], [place] [address] [place] [address] C[facility] [place] [address] Laboratory Medicine and Pathology [address] 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
--- OUTSIDE RECORDS SUMMARY | 2022-03-16 10:28 | XMS_ITS | Encounter Summary ---
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 [address] [place] [phone] 04/13/2022 Office Visit Oncology Walter Barnhart M.D., Ph.D. [address] [place] [phone] documented as of this encounter Visit Diagnoses Not on filedocumented in this encounter
--- OUTSIDE RECORDS SUMMARY | 2022-03-16 10:28 | XMS_ITS | Encounter Summary ---
:1975 Author Organization [facility] Address [address] [place] [address] Care Team Providers Name Role Phone Unavailable Primary Care Provider Unavailable Encounter Details Date Type Department Care Team Description 06/19/2021 Clinical Communication Department of Oncology Tala pride in [facility] rojelio Hernandez M.D. [address] [facility] [address] [place] [phone] Social History Tobacco Use Types Packs/Day Years [...] or relatives? How often do you attend gnosticist or 1 to 4 times per year 02/09 sikh services? Do you belong to any clubs or Yes 02/26/2021 organizations such as gnosticist groups, unions, fraternal or athletic groups, or [...] Mary Romero M.D. - 06/19/2021 12:50 PM PULP GRINDER AND BLENDER I received a call from the patient [...] the call. Mary Romero MD Hematology/Oncology Fellow [id number] 06/19/21 1:05 PM PULP GRINDER AND BLENDER GRINDER AND BLENDER documented in this encounter Plan of Treatment Upcoming Encounters Date Type Specialty Care Team Description 04/11/2022 Clinical Communication Admitting/Central Scheduling 04/13/2022 Appointment Laboratory Medicine Debbie Ivey M.D. 200 [place] [phone] 04/13/2022 Office Visit Oncology Walter Barnhart M.D., Ph.D. [address] [place] [address] documented as of this encounter Visit Diagnoses Not on filedocumented in this encounter
--- OUTSIDE RECORDS SUMMARY | 2022-03-16 10:28 | XMS_ITS | Encounter Summary ---
:1975 Author Organization [facility] Address [address] [place] [address] Care Team Providers Name Role Phone Unavailable Primary Care Provider Unavailable Encounter Details Date Type Department Care Team Description 05/20/2021 Orders Only Department of Obstetrics Zuri, and Gynecology in [place] APRND[place], [place] C.NAnthony., M.S. [address] [facility] [address] [place] [address] [place], [place] [phone] (Wo rk) Social History Tobacco Use Types [...] 1 to 4 times per year 02/09 faith services? 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 [address] [place] [phone] 04/13/2022 Office Visit Oncology Walter Barnhart M.D., Ph.D. [address] [place] [phone] documented as of this encounter Visit Diagnoses Not on filedocumented in this encounter
--- OUTSIDE RECORDS SUMMARY | 2022-03-16 10:28 | XMS_ITS | Encounter Summary ---
:1975 Author Organization [facility] Address [address] [place] [address] Care Team Providers Name Role Phone Unavailable Primary Care Provider Unavailable Encounter Details Date Type Department Care Team Description 05/27/2021 Orders Only Department of Oncology in [place], [place] C.N.P. [address] [facility] [address] [place] [address] [place], [place] [phone] (Wo rk) Social History Tobacco Use Types [...] Appointment Laboratory Medicine Debbie Ivey M.D. [address] [place] [phone] 04/13/2022 Office Visit Oncology Walter Barnhart M.D., Ph.D. [address] [place] [phone] documented as of this encounter Visit Diagnoses Not on filedocumented in this encounter
--- OUTSIDE RECORDS SUMMARY | 2022-03-16 10:28 | XMS_ITS | Encounter Summary ---
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 [address] [facility] [address] [place] [phone] Referral ID Status Reason Start Date Expiration Date Visits V isits Requested Authorized [id number] Authorized 02/17/2021 02/17/2022 12 12 Encounter Details Date Type Department Care Team Description 05/29/2021 Hospital Encounter Department of Marychuy Kapoor Neoplasm Of Ovary Laterality Unknown (HCC); Laboratory Medicine DENNY Sanchez, C.N.PChapincito, Madhu munoz Drug Induced (HCC) in [facility] [address] [facility] [address] [place] [phone] Social History Tobacco Use Types Packs/Day Years [...] Sig Dispensed Refills Start Date End Date oznrzzb-zekn-gwrvm-oreg- Take 1 tablet by 0 capryl 100 [...] Laboratory Medicine Debbie Ivey M.D. [address] [place] [phone] 04/13/2022 Office Visit Oncology Walter Barnhart M.D., Ph.D. [address] [place] [phone] documented as of this encounter Procedures Procedure Name Priority Date/Time Associated Comments Diagnosis CBC CHEMO - NO ALERTS Routine 05/29/2021 10:07 Malignant Neopl asm Results for this AM RAIL OPERATOR Of Ovary procedure are i n Laterality Unknown the resul ts (HCC) section. Neutropenia Drug Induced (HCC) CANCER AG 125 (CA 125), Routine 05/29/2021 10:07 Malignant Juan plasm Results for this S AM RAIL OPERATOR Of Ovary procedure are i n Laterality Unknown the resul ts (HCC) section. Neutropenia Drug Induced (HCC) ASPARTATE Routine 05/29/2021 10:07 Malignant Neoplasm Resul ts for this AMINOTRANSFERASE (AST), AM RAIL OPERATOR Of Ovary proc edure are in S/P Laterality Unknown the resul ts (HCC) section. Neutropenia Drug Induced (HCC) CREATININE WITH EGFR, Routine 05/29/2021 10:07 Malignant Neopl asm Results for this S/P AM RAIL OPERATOR Of Ovary procedure are i n Laterality Unknown the resul ts (HCC) section. Neutropenia Drug Induced (HCC) BILIRUBIN, TOT, S/P Routine 05/29/2021 10:07 Malignant Neoplas m Results for this AM RAIL OPERATOR Of Ovary procedure are i n Laterality Unknown the resul ts (HCC) section. Neutropenia Drug Induced (HCC) documented in this encounter Results Creatinine with Estimated GFR (05/29/2021 10:07 AM RAIL OPERATOR) P athologist Signature Creatinine 0.65 0.59 - 05/29/2021 NPRG 1.04 mg/dL 10:45 AM RAIL OPERATOR eGFR-Black/Afric >90 >=60 05/29/2021 NPRG an Citizen Of [place] mL/min/BSA 10:45 AM RAIL OPERATOR Comment: ----ADDITIONAL INFORMATION---- Estimated GFR calculated using the 2009 CKD_EPI creatinine equation. eGFR Non-Black/ >90 >=60 mL/min/BSA 05/29/2021 10:45 AM RAIL OPERATOR NPRG Comment: ----ADDITIONAL INFORMATION---- Estimated GFR calculated using the 2009 CKD_EPI creatinine equation. Specimen Anatomical Collection Method Collection Time Receive d Time (Source) Location / / Volume Laterality Blood (Blood, 05/29/2021 10:07 05/29/2021 Venous) AM RAIL OPERATOR 10:22 AM RAIL OPERATOR Sabine Correa APRNNAnthony., M.S.N. LAB BLOOD ADD-ON Performing Organization Address City/[facility]/ZIP Code Phon e Number [place] [phone] [address] [place] [facility] [place] [phone] (ABNORMAL) CBC, Chemotherapy, No Alerts (05/29/2021 10:07 AM RAIL OPERATOR) Analysis Performed At Patho logist Time Signature Hemoglobin 10.3 (L) 11.6 - 05/29/2021 NPRG 15.0 g/dL 10:40 AM RAIL OPERATOR Platelet Count 657 (H) 157 - 371 05/29/2021 NPRG x10(9)/L 10:40 AM RAIL OPERATOR Leukocytes 7.7 3.4 - 9.6 05/29/2021 NPRG x10(9)/L 10:40 AM RAIL OPERATOR Neutrophils 2.35 1.56 - 05/29/2021 NPRG 6.45 10:40 AM RAIL OPERATOR x10(9)/L Specimen Anatomical Collection Method Collection Time Receive d Time (Source) Location / / Volume Laterality Blood (Blood, 05/29/2021 10:07 05/29/2021 Venous) AM RAIL OPERATOR 10:22 AM RAIL OPERATOR Sabine Correa APRNNNesha, M.S.N. LAB BLOOD ADD-ON Performing Organization Address City/State/ZIP Code Phon e Number [place] [phone] [facility] [place] [phone] Bilirubin, Total (05/29/2021 10:07 AM RAIL OPERATOR) P athologist Signature Bilirubin, <0.2 <=1.2 mg/dL 05/29/2021 NPRG Total, P 10:45 AM RAIL OPERATOR Specimen Anatomical Collection Method Collection Time Receive d Time (Source) Location / / Volume Laterality Blood (Blood, 05/29/2021 10:07 05/29/2021 Venous) AM RAIL OPERATOR 10:22 AM RAIL OPERATOR Carly Correa APRN.N.P., M.S.N. LAB BLOOD ADD-ON Performing Organization Address City/[facility]/ZIP Code Phon e Number [place] [phone] [place] [facility] [address] AST (Aspartate Aminotransferase) (05/29/2021 10:07 AM RAIL OPERATOR) Patholo gist Method Time Signature Aspartate 32 8 - 43 05/29/2021 NPRG Aminotransferase U/L 10:45 AM RAIL OPERATOR (AST), P Specimen Anatomical Collection Method Collection Time Receive d Time (Source) Location / / Volume Laterality Blood (Blood, 05/29/2021 10:07 05/29/2021 Venous) AM RAIL OPERATOR 10:22 AM RAIL OPERATOR Sabine Correa APRNN.Katie., M.S.N. LAB BLOOD ADD-ON Performing Organization Address [facility]/ZIP Code Phon e Number [place] [phone] [place] [facility] [place] [phone] Cancer Antigen 125 (CA 125) (05/29/2021 10:07 AM RAIL OPERATOR) P athologist Signature Cancer Ag 125 27 <46 U/mL 05/30/2021 AUST (CA 125), S 8:35 AM RAIL OPERATOR Comment: Biotin has been identified by the [facility] as a potential interfering substance. ??Higher concentr ations of biotin may be found in multivitamins, hair/nail supple ments, and workout supplements. ??If the result does not [facility] clinical observations, repeat testing after patient [...] (Blood, 05/29/2021 10:07 05/29/2021 8:31 Venous) AM RAIL OPERATOR PM RAIL OPERATOR Sabine Correa APRNNAnthony., M.S.N. LAB BLOOD ADD-ON Performing Organization Address City/State/ZIP Code Phon e Number [facility]- [address] [place] [address] [place] [facility] [place], [place] [id number] [place] [address] documented in this encounter Visit Diagnoses Diagnosis 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
--- OUTSIDE RECORDS SUMMARY | 2022-03-16 10:29 | XMS_ITS | Encounter Summary ---
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 [address] [place] [address] [place] [phone] Referral ID Status Reason Start Date Expiration Date Visits V isits Requested Authorized [id number] Authorized 02/17/2021 02/17/2022 12 12 Encounter Details Date Type Department Care Team Description 05/02/2021 Hospital Encounter Department of Walter Barnhart Malign ant Neoplasm Of Ovary Laterality Unknown (HCC); Laboratory Medicine Kelly De La Cruz, Ph. D. Neutropenia Drug Induced (HCC) in [address] [place] [phone] [place], [place] [phone] (Work) [phone] Social History Tobacco Use Types Packs/Day Years [...] 02/26/2021 organizations such as moravian groups, unions, fraFix That Bug or athletic groups, or school groups? How [...] Sig Dispensed Refills Start Date End Date mfyihxh-tmvl-qoxdf-oreg- Take 1 tablet by 0 capryl 100 [...] Appointment Laboratory Medicine Debbie Ivey M.D. [address] [place] [address] 04/13/2022 Office Visit Oncology Walter Barnhart M.D., Ph.D. 200 [place] [phone] documented as of this encounter Procedures Procedure Name Priority Date/Time Associated Comments Diagnosis CBC CHEMO - NO ALERTS Routine 05/02/2021 10:22 Malignant Neopl asm Results for this AM LINE TESTER Of Ovary procedure are i n Laterality Unknown the resul ts (HCC) section. Neutropenia Drug Induced (HCC) CANCER AG 125 (CA 125), Routine 05/02/2021 10:22 Malignant Juan plasm Results for this S AM LINE TESTER Of Ovary procedure are i n Laterality Unknown the resul ts (HCC) section. Neutropenia Drug Induced (HCC) ASPARTATE Routine 05/02/2021 10:22 Malignant Neoplasm Resul ts for this AMINOTRANSFERASE (AST), AM LINE TESTER Of Ovary proc edure are in S/P Laterality Unknown the resul ts (HCC) section. Neutropenia Drug Induced (HCC) CREATININE WITH EGFR, Routine 05/02/2021 10:22 Malignant Neopl asm Results for this S/P AM LINE TESTER Of Ovary procedure are i n Laterality Unknown the resul ts (HCC) section. Neutropenia Drug Induced (HCC) BILIRUBIN, TOT, S/P Routine 05/02/2021 10:22 Malignant Neoplas m Results for this AM LINE TESTER Of Ovary procedure are i n Laterality Unknown the resul ts (HCC) section. Neutropenia Drug Induced (HCC) documented in this encounter Results Creatinine with Estimated GFR (05/02/2021 10:22 AM LINE TESTER) P athologist Signature Creatinine 0.64 0.59 - 05/02/2021 NPRG 1.04 mg/dL 10:47 AM LINE TESTER eGFR-Black/Afric >90 >=60 05/02/2021 NPRG an [place] mL/min/BSA 10:47 AM LINE TESTER Comment: ----ADDITIONAL INFORMATION---- Estimated GFR calculated using the 2009 CKD_EPI creatinine equation. eGFR Non-Black/ >90 >=60 mL/min/BSA 05/02/2021 10:47 AM LINE TESTER NPRG Comment: ----ADDITIONAL INFORMATION---- Estimated GFR calculated using the 2009 CKD_EPI creatinine equation. Specimen Anatomical Collection Method Collection Time Receive d Time (Source) Location / / Volume Laterality Blood (Blood, 05/02/2021 10:22 05/02/2021 Venous) AM LINE TESTER 10:27 AM LINE TESTER Walter Barnhart M.D., Ph.D. LAB BLOOD ADD-ON Performing Organization Address City/[facility]/ZIP Code Phon e Number [address] [address] [address] [place] [address] (ABNORMAL) CBC, Chemotherapy, No Alerts (05/02/2021 10:22 AM LINE TESTER) Analysis Performed At Patho logist Time Signature Hemoglobin 11.2 (L) 11.6 - 05/02/2021 NPRG 15.0 g/dL 10:32 AM LINE TESTER Platelet Count 233 157 - 371 05/02/2021 NPRG x10(9)/L 10:32 AM LINE TESTER Leukocytes 4.1 3.4 - 9.6 05/02/2021 NPRG x10(9)/L 10:32 AM LINE TESTER Neutrophils 2.59 1.56 - 05/02/2021 NPRG 6.45 10:32 AM LINE TESTER x10(9)/L Specimen Anatomical Collection Method Collection Time Receive d Time (Source) Location / / Volume Laterality Blood (Blood, 05/02/2021 10:22 05/02/2021 Venous) AM LINE TESTER 10:27 AM LINE TESTER Walter Barnhart M.D., Ph.D. LAB BLOOD ADD-ON Performing Organization Address City/[facility]/ZIP Code Phon e Number [address] [place] [address] Bilirubin, Total (05/02/2021 10:22 AM LINE TESTER) P athologist Signature Bilirubin, 0.4 <=1.2 mg/dL 05/02/2021 NPRG Total, P 10:47 AM LINE TESTER Specimen Anatomical Collection Method Collection Time Receive d Time (Source) Location / / Volume Laterality Blood (Blood, 05/02/2021 10:22 05/02/2021 Venous) AM LINE TESTER 10:27 AM LINE TESTER Walter Barnhart M.D., Ph.D. LAB BLOOD ADD-ON Performing Organization Address City/State/[facility] Code Phon e Number [place] [address] [facility] NPRG [place] [phone] AST (Aspartate Aminotransferase) (05/02/2021 10:22 AM LINE TESTER) Patholo gist Method Time Signature Aspartate 23 8 - 43 05/02/2021 NPRG Aminotransferase U/L 10:47 AM LINE TESTER (AST), P Specimen Anatomical Collection Method Collection Time Receive d Time (Source) Location / / Volume Laterality Blood (Blood, 05/02/2021 10:22 05/02/2021 Venous) AM LINE TESTER 10:27 AM LINE TESTER Walter Barnhart M.D., Ph.D. LAB BLOOD ADD-ON Performing Organization Address City/[facility] Phon e Number [address] LAB NPRG [place] [phone] (ABNORMAL) Cancer Antigen 125 (CA 125) (05/02/2021 10:22 AM LINE TESTER) athologist Signature Cancer Ag 125 65 (H) <46 U/mL 05/02/2021 [facility] (CA 125), S 10:36 PM LINE TESTER Comment: Biotin has been identified by the [...] Blood (Blood, 05/02/2021 10:22 05/02/2021 Venous) AM LINE TESTER 10:04 PM LINE TESTER Walter Barnhart M.D., Ph.D. LAB BLOOD ADD-ON Performing Organization Address City/State/ZIP Code Phon e Number [facility]- [address] LAB AUST [facility] [place], [place] [phone] [place] [address] documented in this encounter Visit Diagnoses Diagnosis 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
--- OUTSIDE RECORDS SUMMARY | 2022-03-16 10:29 | XMS_ITS | Encounter Summary ---
:1975 Author Organization [facility] Address [address] [place] [address] Care Team Providers Name Role Phone Unavailable Primary Care Provider Unavailable Reason for Referral Outpatient (Routine) - Closed Specialty Diagnoses / Procedures Referred By Contact Refer red To Contact Obstetrics and Ruben Rod M.D. [facility] Gynecology [address] [place] [phone] Referral ID Status Reason Start Date Expiration Date Visits Requ ested Visits Authorized [id number] Closed 05/13/2021 05/13/2022 1 1 Scheduling Instructions 6 weeks appointment with SCHOOL OFFICE MANAGER/PA utpatient (Routine) - Closed Specialty Diagnoses / Procedures Referred By Contact Refer red To Contact General Surgery Agnes Drew M.D. 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) [C56.9] Procedures HI SALPINGO-OOPHORECTOMY BILAT HYST HI HEPATECTMY RESECT PARTL LOBECT HI US GUIDE INTRAOPERATIVE HI CYSTHRSCPY W INS URETERAL STNT LAPAROTOMY, TUMOR DEBULKING HYSTERECTOMY ABDOMINAL WITH BILATERAL SALPINGO-OOPHORECTOMY OMENTECTOMY POSSIBLE RESECTION SMALL INTESTINE WITH ANASTOMOSIS, PROCEED INDICATED WEDGE RESECTION LIVER INTRAOPERATIVE ULTRASOUND LIVER CYSTOSCOPY INSERTION STENT URETER Referral ID Status Reason Start Date Expiration Date Visits Requ ested Visits Authorized [id number] 1 1 Encounter Details Date Type Department Care Team Description 05/09/2021 - Hospital Encounter [facility] IvelissePaolaDenishacheli gramajo History Of Malignant Neoplasm Of Ovary (Primary Dx); 05/14/2021 Hospital, Louie Box M.D. Malignant Neoplasm Of Ovary Laterality U nknow ([facility]) [place] [address] [facility] [place], [place] Floor [phone] [address] [phone] [place], [place] (Work) [phone] Social History Tobacco Use [...] Comments Blood Pressure 141/71 05/14/2021 10:30 AM INVASIVE CARDIOLOGIST Pulse 88 05/14/2021 10:30 AM INVASIVE CARDIOLOGIST Temperature 36.8 ??C (98.2 ??F) 05/14/2021 10:30 AM INVASIVE CARDIOLOGIST Respiratory Rate 16 05/14/2021 10:30 AM INVASIVE CARDIOLOGIST Oxygen Saturation 97% 05/14/2021 10:30 AM INVASIVE CARDIOLOGIST Inhaled Oxygen Concentration - - Weight 62 kg (136 lb 11 oz) 05/13/2021 8:00 AM INVASIVE CARDIOLOGIST Height 167 cm (5' 5.75) 05/09/2021 7:27 AM INVASIVE CARDIOLOGIST Body Mass Index 22.23 05/09/2021 7:27 AM INVASIVE CARDIOLOGIST documented in this encounter Discharge Summaries Lynn [...] Report electronically signed by Sophia Ndiaye M.D. [id number] I verify that I have examined all relevant slides/materials for the specimen(s) and rendered or confirmed the diagnosis. Gross Description A. Received fresh labeled umbilical nodule is a 2.2 x 1.7 x 0.6 cm fragment of red-orosco soft tissue. There is a 0.7 x 0.6 cm nodule identified upon sectioning. All submitted for permanent sections only. Grossed by [facility]. B. Received fresh labeled falciform ligament is a 3.9 x 3.2 x 0.6 cm portion of pink-red fibrofatty tissue. Marking Clerk tissue submitted for permanent sections only. Grossed by [facility]. C. Received fresh labeled omentum is a 42 x 12 x 1 cm portion of omentum. There is a 0.3 x 0.2 x 0.2 cm calcified nodule. Lymph nodes are identified. Marking Clerk tissue submitted for permanent sections only. Gross[facility] by [facility]. Received fresh labeled liver wedge segment 4B/3 nodule is a 18 gram, 4.3 x 3.8 x 3.7 cm liver wedge specimen. A single 2.6 x 2.4 x 1.4 cm orosco-white mass is present 0.1 cm from the inked surgical margin. Margin is submitted perpendicularly. Marking Clerk tissue submitted for permanent sections only. Grossed by EDNA Beckham E. Received fresh labeled right diaphragm is a 7.1 x 3.2 x 1.6 cm portion of red-orosco fibrous tissue. At one aspect, there is a 3.6 x 1.7 x 0.6 cm nodule. Additional smaller nodules are identified. Marking Clerk tissue submitted for permanent sections only. Grossed by F. Received fresh labeled right anterior abdominal wall is a 3.8 x 2 x 0.5 cm portion of red-pink, peritonealized fibromembranous tissue. A 0.2 cm nodule is present. Marking Clerk tissue submitted for permanent sections only. Grossed [...] nodule. Hilar lymph nodes are not identified. Marking Clerk tissue submitted for permanent sections only. Grossed [...] tube has multiple adhesions and serosal implants. Marking Clerk tissue submitted for permanent sections only. Grossed [...] 3 x 1.6 cm of soft tissue. Marking Clerk tissue submitted for permanent sections only. Grossed by RAK. Gallegos Received fresh labeled portion of sigmoid colon is a 13.5 cm in length portion of colon. There are serosal tumor imp lants and adhesions. The mucosa is unremarkable. Marking Clerk tissue submitted for permanent sections only. Grossed [...] pelvic exam. If scheduled at [facility] then appointment desk will contact you to [...] important to have your annual flu vaccine SIVE CARDIOLOGIST documented in this encounter Discharge Instructions AttachmentsThe following attachments cannot be sent through Care Everywhere. Apixaban (By mouth) (Lao)Cyclobenzaprine (By mouth) (Lao)Hydromorphone (By mouth) (Lao)documented in this encounter Medications at Time of Discharge Medication Sig Dispensed Refills Start Date End Date iqiqrex-zbtm-mgnfw-oreg- Take 1 tablet by 0 capryl 100 [...] The patient was evaluated and discussed with SOLAR INSTALLER TECHNICIAN ONC fellow Dr. Lagos and Dr. Stone who are in agreement with the plan of care. SIVE CARDIOLOGIST Ruben Rod M.D. - 05/13/2021 5:40 AM [...] M.D. Please direct questions/concerns to service pagers. SIVE CARDIOLOGIST Ruben Rod M.D. - 05/12/2021 5:42 AM [...] Neoplasm Of Ovary Code Status: Full Code Dye Padder Operator: Discussed final pathology report. She will f/u [...] M.D. Please direct questions/concerns to service pagers. SIVE CARDIOLOGIST Ruben Rod M.D. - 05/11/2021 6:15 AM [...] Neoplasm Of Ovary Code Status: Full Code Dye Padder Operator: Follow up final pathology. She will f/u [...] M.D. Please direct questions/concerns to service pagers. SIVE CARDIOLOGIST Sussy Albert M.D. - 05/10/2021 10:27 PM [...] with the patient and as well as special education teacher onc fellow environmental aide Dr. Lagos. Addendum: Chest x-ray completed and [...] & Screen Expiration 05/12/2021 23:59 Testing Location [place] Blood Gas with Coox, Arterial Collection Time: [...] Date/Time SARS CoV-2 RNA, PCR, Varies Asymptomatic [[id number]] Collected: 05/08/21 0708 Lab Status: Final result [...] Drug Administration and is used per agricultural pilot's instructions. Performance characteristics were verified by [facility] in a manner consistent with CLIA requirements. Visit the CDC website: https://www.cdc.gov/coronavirus/ for the most recent guidelines on Coronavirus testing. Fact Sheet for Healthcare Providers: https://www.fda.gov/media/343378/download Fact Sheet for Patients: https://www.fda.gov/media/616259/download SARS Coronavirus 2, PCR Rapid, V Symptomatic [[id number]] Collected: 04/25/21 0320 Lab Status: Final result [...] at the following links: For Healthcare Providers: https://www.fda.gov/media/985006/download For Patients: https://www.fda.gov/media/617914/download SARS Coronavirus 2, Source, Rapid Swab, Nasopharynx Bacteria / Ebony Culture, Blood #1 [[id number]] Collected: 04/25/21 0207 Lab Status: Final result Specimen: Blood, Peripheral Draw Updated: 04/30/21 0303 Bacteria/Ebony Culture, Blood No growth after 5 day/s of incubation. Bacteria / Ebony Culture, Blood #2 [[id number]] Collected: 04/25/21 0158 Lab Status: Final result [...] concerns. Cami Duran MD Resident General Surgery [employer] [phone] pager [phone] phone [email or web address] SIVE CARDIOLOGIST Ruben Rod M.D. - 05/10/2021 5:09 AM [...] Neoplasm Of Ovary Code Status: Full Code Dye Padder Operator: Follow up final pathology. She will f/u [...] am available if needed. Sussy Albert M.D. SIVE CARDIOLOGIST Harrison Zaldivar Pharm.D., R.Ph. - 05/09/2021 6:56 AM CST Images from the original note were not included. 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 Prior to [...] for nausea or vomiting (unrelieved by ondansetron). hnauqig-hcrd-pyras-oreg-capryl 100 mg-150 mg- 50 mg-150 mg capsule 05/02/2021 -- -- Take 1 tablet by mouth daily. Vyvanse 70 mg capsule 05/08/2021 01/24/21 -- Take 70 mg by mouth daily. SIVE CARDIOLOGIST documented in this encounter Nursing Notes Celeste [...] unit in a wheelchair with transport services. SIVE CARDIOLOGIST Celeste Goldberg R.N. - 05/09/2021 9:44 PM [...] remains free from fall/fall injury Outcome: Progressing SIVE CARDIOLOGIST documented in this encounter OR Notes Op Note - Wilma Castro M.D. 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 SIVE CARDIOLOGIST Op Note - Denisha Oviedo M.D. 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 Residual: 0/micro. Dye Padder Operator Organs, Pelvic Colon & Peritoneum Initial: > [...] recovery in stable condition. Denisha Oviedo M.D. SIVE CARDIOLOGIST Op Note - Jacobo Banda M.D. - [...] primary team post operatively. Jacobo Banda MD SIVE CARDIOLOGIST Brief Op Note - Che Martinez M.D. [...] 6300 Crystalloids Complications None Che Martinez M.D. SIVE CARDIOLOGIST documented in this encounter Miscellaneous Notes Result Encounter Note - Che Martinez M.D. - 05/12/2021 4:51 PM INVASIVE CARDIOLOGIST I have reviewed the final pathology report and the identified diagnosis is consistent with the patient's clinical presentation. SIVE CARDIOLOGIST Hospital Course - Lynn Armstrong M.D. - [...] Report electronically signed by Sophia Ndiaye M.D. [phone] I verify that I have examined all relevant slides/materials for the specimen(s) and rendered or confirmed the diagnosis. Gross Description A. Received fresh labeled umbilical nodule is a 2.2 x 1.7 x 0.6 cm fragment of red-orosco soft tissue. There is a 0.7 x 0.6 cm nodule identified upon sectioning. All submitted for permanent sections only. Grossed by [facility]. B. Received fresh labeled falciform ligament is a 3.9 x 3.2 x 0.6 cm portion of pink-red fibrofatty tissue. Marking Clerk tissue submitted for permanent sections only. Grossed by [facility]. C. Received fresh labeled omentum is a 42 x 12 x 1 cm portion of omentum. There is a 0.3 x 0.2 x 0.2 cm calcified nodule. Lymph nodes are identified. Marking Clerk tissue submitted for permanent sections only. Grossed by [facility]. D. Received fresh labeled liver wedge segment 4B/3 nodule is a 18 gram, 4.3 x 3.8 x 3.7 cm liver wedge specimen. A single 2.6 x 2.4 x 1.4 cm orosco-white mass is present 0.1 cm from the inked surgical margin. Margin is submitted perpendicularly. Marking Clerk tissue submitted for permanent sections only. Grossed by S . E. Received fresh labeled right diaphragm is a 7.1 x 3.2 x 1.6 cm portion of red-orosco fibrous tissue. At one aspect, there is a 3.6 x 1.7 x 0.6 cm nodule. Additional smaller nodules are identified. Marking Clerk tissue submitted for permanent sections only. Grossed by [facility]. F. Received fresh labeled right anterior abdominal wall is a 3.8 x 2 x 0.5 cm portion of red-pink, peritonealized fibromembranous tissue. A 0.2 cm nodule is present. Marking Clerk tissue submitted for permanent sections only. Grossed by EDNA. G. Received fresh labeled right pelvic gutter is a 2.2 x 1 x 0.2 cm aggregate of red-pink fibromembranous tissue. All submitted for permanent sections only. Grossed by [facility]. H. Received fresh labeled left mid diaphragm [...] nodule. Hilar lymph nodes are not identified. Marking Clerk tissue submitted for permanent sections only. Grossed [...] tube has multiple adhesions and serosal implants. Marking Clerk tissue submitted for permanent sections only. Grossed [...] 3 x 1.6 cm of soft tissue. Marking Clerk tissue submitted for permanent sections only. Grossed by RAK. Gallegos Received fresh labeled portion of sigmoid colon is a 13.5 cm in length portion of colon. There are serosal tumor imp lants and adhesions. The mucosa is unremarkable. Marking Clerk tissue submitted for permanent sections only. Grossed [...] pelvic exam. If scheduled at [facility] then appointment desk will contact you to [...] important to have your annual flu vaccine SIVE CARDIOLOGIST documented in this encounter Plan of Treatment Upcoming Encounters Date Type Specialty Care Team Description 04/11/2022 Clinical Communication Admitting/Central Scheduling 04/13/2022 Appointment Laboratory Medicine Debbie Ivey M.D. [address] [place] [phone] 04/13/2022 Office Visit Oncology Walter Barnhart M.D., Ph.D. [address] [place] [phone] Scheduled Referrals Name Type Priority Associated Order [...] esults for VIEW (Fast; most ED AM INVASIVE CARDIOLOGIST this procedur e patients; some are in the inpatients) results section. BASIC METABOLIC Routine 05/12/2021 12:35 Results for PANEL, S/P AM INVASIVE CARDIOLOGIST this procedure are in the results section. CBC WITHOUT Routine 05/11/2021 12:15 Results for DIFFERENTIAL, B AM INVASIVE CARDIOLOGIST this procedu re are in the results section. BASIC METABOLIC Routine 05/11/2021 12:15 Results for PANEL, S/P AM INVASIVE CARDIOLOGIST this procedure are in the results section. DX CHEST AP OR PA RAD - Semiurgent 05/10/2021 10:41 Re sults for AND LATERAL 2 VIEWS (Fast; most ED PM INVASIVE CARDIOLOGIST this p rocedure patients; some are in the inpatients) results section. POTASSIUM, S/P Timed 05/10/2021 4:42 Results fo r AM INVASIVE CARDIOLOGIST this procedure are in the results section. CBC WITHOUT Routine 05/10/2021 1:19 Results for DIFFERENTIAL, B AM INVASIVE CARDIOLOGIST this procedu re are in the results section. COMPREHENSIVE Routine 05/10/2021 1:19 Results for METABOLIC PANEL, S/P AM INVASIVE CARDIOLOGIST this pr ocedure are in the results section. DX ABDOMEN 1 VIEW RAD - Routine 05/09/2021 5:14 Result s for (most inpatients PM INVASIVE CARDIOLOGIST this proced ure and all are in the outpatients) results section. ADULT OXYGEN THERAPY Routine 05/09/2021 5:10 PM INVASIVE CARDIOLOGIST PATIENT STATUS STAT 05/09/2021 3:39 Results fo r PM INVASIVE CARDIOLOGIST this procedure are in the results section. SODIUM, B STAT 05/09/2021 3:39 Results for PM INVASIVE CARDIOLOGIST this procedure are in the results section. ABG W/COOX STAT 05/09/2021 3:39 Results for PM INVASIVE CARDIOLOGIST this procedure are in the results section. POTASSIUM, B STAT 05/09/2021 3:39 Results for PM INVASIVE CARDIOLOGIST this procedure are in the results section. GLUCOSE, WHOLE BLOOD STAT 05/09/2021 3:39 Resu lts for PM INVASIVE CARDIOLOGIST this procedure are in the results section. CALCIUM, IONIZED, STAT 05/09/2021 3:39 Results for S/B PM INVASIVE CARDIOLOGIST this procedure are in the results section. PATIENT STATUS STAT 05/09/2021 1:01 Results fo r PM INVASIVE CARDIOLOGIST this procedure are in the results section. SODIUM, B STAT 05/09/2021 1:01 Results for PM INVASIVE CARDIOLOGIST this procedure are in the results section. ABG W/COOX STAT 05/09/2021 1:01 Results for PM INVASIVE CARDIOLOGIST this procedure are in the results section. POTASSIUM, B STAT 05/09/2021 1:01 Results for PM INVASIVE CARDIOLOGIST this procedure are in the results section. GLUCOSE, WHOLE BLOOD STAT 05/09/2021 1:01 Resu lts for PM INVASIVE CARDIOLOGIST this procedure are in the results section. CALCIUM, IONIZED, STAT 05/09/2021 1:01 Results for S/B PM INVASIVE CARDIOLOGIST this procedure are in the results section. SURGICAL PATHOLOGY, Routine 05/09/2021 10:04 Malignant Resu lts for [facility] AM INVASIVE CARDIOLOGIST Neoplasm Of Ovary this proce dure Laterality are in the Unknown (HCC) results section. COLECTOMY LEFT WITH 05/09/2021 8:11 Malignant ANASTOMOSIS AM INVASIVE CARDIOLOGIST Neoplasm Of Ovary Laterality Unknown (HCC) EXPLORATION 05/09/2021 8:11 Malignant ABDOMINAL - LYSIS AM INVASIVE CARDIOLOGIST Neoplasm Of Ovary ADHESIONS Laterality Unknown (HCC) STRIPPING DIAPHRAGM 05/09/2021 8:11 Malignant AM INVASIVE CARDIOLOGIST Neoplasm Of Ovary Laterality Unknown (HCC) OTHER 05/09/2021 8:11 Malignant AM INVASIVE CARDIOLOGIST Neoplasm Of Ovary Laterality Unknown (HCC) SPLENECTOMY 05/09/2021 8:11 Malignant AM INVASIVE CARDIOLOGIST Neoplasm Of Ovary Laterality Unknown (HCC) CYSTOSCOPY INSERTION 05/09/2021 8:11 Malignant STENT URETER AM INVASIVE CARDIOLOGIST Neoplasm Of Ovary Laterality Unknown (HCC) ULTRASOUND LIVER 05/09/2021 8:11 Malignant AM INVASIVE CARDIOLOGIST Neoplasm Of Ovary Laterality Unknown (HCC) WEDGE RESECTION 05/09/2021 8:11 Malignant LIVER AM INVASIVE CARDIOLOGIST Neoplasm Of Ovary Laterality Unknown (HCC) OMENTECTOMY 05/09/2021 8:11 Malignant AM INVASIVE CARDIOLOGIST Neoplasm Of Ovary Laterality Unknown (HCC) HYSTERECTOMY 05/09/2021 8:11 Malignant ABDOMINAL WITH AM INVASIVE CARDIOLOGIST Neoplasm Of Ovary SALPINGO - Laterality OOPHORECTOMY Unknown (HCC) DEBULKING TUMOR 05/09/2021 8:11 Malignant OVARY AM INVASIVE CARDIOLOGIST Neoplasm Of Ovary Laterality Unknown (HCC) LAPAROTOMY - 05/09/2021 8:11 Malignant EXPLORATORY AM INVASIVE CARDIOLOGIST Neoplasm Of Ovary Laterality Unknown (HCC) TYPE AND SCREEN Routine 05/09/2021 7:29 Results f or AM INVASIVE CARDIOLOGIST this procedure are in the results section. documented in this encounter Results DX Chest Portable 1 View (05/12/2021 8:50 AM INVASIVE CARDIOLOGIST) Anatomical Region Laterality Modality Chest, Thoracic RST LOS, Thoracic ARZ LOS, Thoracic N/A Digital Radiography FLA LOS Specimen (Source) Anatomical Collection Method Collection Time Re ceived Time Location / / Volume Laterality 05/12/2021 8:51 AM INVASIVE CARDIOLOGIST Impressions 05/12/2021 8:52 AM INVASIVE CARDIOLOGIST No change since 05/10/2021, given differences of technique. Bilateral pleural effusions, greater on the right, layering posteriorly. Stable borderline cardiomegaly, also is accentu ated by technique. Atelectasis or consolidation in both bases. No pneumoth orax. Narrative 05/12/2021 8:52 AM INVASIVE CARDIOLOGIST EXAM: ??DX CHEST PORTABLE 1 VIEW Procedure [...] (ABNORMAL) Basic Metabolic Panel (05/12/2021 12:35 AM INVASIVE CARDIOLOGIST) P athologist Signature Potassium, S 4.7 3.6 - 5.2 05/12/2021 DTL mmol/L 1:20 AM INVASIVE CARDIOLOGIST Sodium, S 140 135 - 145 05/12/2021 DTL mmol/L 1:20 AM INVASIVE CARDIOLOGIST Chloride, S 105 98 - 107 05/12/2021 DTL mmol/L 1:20 AM INVASIVE CARDIOLOGIST Bicarbonate, S 29 22 - 29 05/12/2021 DTL mmol/L 1:20 AM INVASIVE CARDIOLOGIST Anion Gap 6 (L) 7 - 15 05/12/2021 DTL 1:20 AM INVASIVE CARDIOLOGIST BUN (Blood Urea 12 6 - 21 05/12/2021 DTL Nitrogen), S mg/dL 1:20 AM INVASIVE CARDIOLOGIST Creatinine 0.81 0.59 - 05/12/2021 DTL 1.04 mg/dL 1:20 AM INVASIVE CARDIOLOGIST eGFR-Non 88 >=60 05/12/2021 DTL Black/ mL/min/BSA 1:20 AM INVASIVE CARDIOLOGIST Bahraini Comment: ----ADDITIONAL INFORMATION---- Estimated GFR calculated using the 2009 CKD_EPI creatinine equation. eGFR-Black/ >90 >=60 mL/min/BSA 2020 1:20 AM INVASIVE CARDIOLOGIST DTL Comment: ----ADDITIONAL INFORMATION---- Estimated GFR calculated using the 2009 CKD_EPI creatinine equation. Calcium, Total, S 8.4 (L) 8.6 - 10.0 mg/dL 05/12/2021 1:20 AM INVASIVE CARDIOLOGIST DTL Glucose, S 93 70 - 140 mg/dL 05/12/2021 1:20 AM INVASIVE CARDIOLOGIST D TL Specimen Anatomical Collection Method Collection Time Receive d Time (Source) Location / / Volume Laterality Blood (Blood, 05/12/2021 12:35 05/12/2021 1:04 Venous) AM INVASIVE CARDIOLOGIST AM INVASIVE CARDIOLOGIST Ruben Rod M.D. LAB BLOOD ADD-ON Performing Organization Address City/State/ZIP Code Phon e Number [facility] - [address] [place], [place] [address] [facility] [place] [address] [facility] [address] [facility] (ABNORMAL) Basic Metabolic Panel (05/11/2021 12:15 AM INVASIVE CARDIOLOGIST) P athologist Signature Potassium, S 4.8 3.6 - 5.2 05/11/2021 DTL mmol/L 1:01 AM INVASIVE CARDIOLOGIST Sodium, S 140 135 - 145 05/11/2021 DTL mmol/L 1:01 AM INVASIVE CARDIOLOGIST Chloride, S 103 98 - 107 05/11/2021 DTL mmol/L 1:01 AM INVASIVE CARDIOLOGIST Bicarbonate, S 30 (H) 22 - 29 05/11/2021 DTL mmol/L 1:01 AM INVASIVE CARDIOLOGIST Anion Gap 7 7 - 15 05/11/2021 DTL 1:01 AM INVASIVE CARDIOLOGIST BUN (Blood Urea 13 6 - 21 05/11/2021 DTL Nitrogen), S mg/dL 1:01 AM INVASIVE CARDIOLOGIST Creatinine 0.87 0.59 - 05/11/2021 DTL 1.04 mg/dL 1:01 AM INVASIVE CARDIOLOGIST eGFR-Non 81 >=60 05/11/2021 DTL Black/ mL/min/BSA 1:01 AM INVASIVE CARDIOLOGIST Bahraini Comment: ----ADDITIONAL INFORMATION---- Estimated GFR calculated using the 2009 CKD_EPI creatinine equation. eGFR-Black/ >90 >=60 mL/min/BSA 2020 1:01 AM INVASIVE CARDIOLOGIST DTL Comment: ----ADDITIONAL INFORMATION---- Estimated GFR calculated using the 2009 CKD_EPI creatinine equation. Calcium, Total, S 8.7 8.6 - 10.0 mg/dL 05/11/2021 1:01 AM INVASIVE CARDIOLOGIST DTL Glucose, S 99 70 - 140 mg/dL 05/11/2021 1:01 AM INVASIVE CARDIOLOGIST D TL Specimen Anatomical Collection Method Collection Time Receive d Time (Source) Location / / Volume Laterality Blood (Blood, 05/11/2021 12:15 05/11/2021 Venous) AM INVASIVE CARDIOLOGIST 12:46 AM INVASIVE CARDIOLOGIST Ruben Rod M.D. LAB BLOOD ADD-ON Performing Organization Address City/[facility] Code Phon e Number [facility] - [address] (ABNORMAL) CBC without Differential (05/11/2021 12:15 AM INVASIVE CARDIOLOGIST) [facility] gist Method Time Signature Hemoglobin 8.4 (L) 11.6 - 05/11/2021 DTL 15.0 g/dL 1:30 AM INVASIVE CARDIOLOGIST Hematocrit 25.9 (L) 35.5 - 05/11/2021 DTL 44.9 % 1:30 AM INVASIVE CARDIOLOGIST Erythrocytes 2.75 (L) 3.92 - 05/11/2021 DTL 5.13 1:30 AM INVASIVE CARDIOLOGIST x10(12)/L MCV 94.2 78.2 - 05/11/2021 DTL 97.9 fL 1:30 AM INVASIVE CARDIOLOGIST RBC Distrib Width 18.0 (H) 12.2 - 05/11/2021 DTL 16.1 % 1:30 AM INVASIVE CARDIOLOGIST Platelet Count 281 157 - 371 05/11/2021 DTL x10(9)/L 1:30 AM INVASIVE CARDIOLOGIST Leukocytes 11.9 (H) 3.4 - 9.6 05/11/2021 DTL x10(9)/L 1:30 AM INVASIVE CARDIOLOGIST Specimen Anatomical Collection Method Collection Time Receive d Time (Source) Location / / Volume Laterality Blood (Blood, 05/11/2021 12:15 05/11/2021 Venous) AM INVASIVE CARDIOLOGIST 12:29 AM INVASIVE CARDIOLOGIST Ruben Rod M.D. LAB BLOOD ADD-ON Performing Organization Address City/[facility] Code Phon e Number [facility] - [address] [place] [address] DX Chest AP or PA and Lateral 2 Views (05/10/2021 10:41 PM INVASIVE CARDIOLOGIST) Anatomical Region Laterality Modality Chest, Thoracic RST LOS, Thoracic ARZ LOS, Thoracic N/A Digital Radiography FLA LOS Specimen (Source) Anatomical Collection Method Collection Time Re ceived Time Location / / Volume Laterality 05/10/2021 10:42 PM INVASIVE CARDIOLOGIST Impressions 05/11/2021 8:59 AM INVASIVE CARDIOLOGIST Small bilateral pleural effusions. Bilateral lower lung airspace opacities. Low lung volumes. Abdominal d rain. Narrative 05/11/2021 8:59 AM INVASIVE CARDIOLOGIST EXAM: ??DX CHEST AP OR PA AND [...] IMAGING PROCE DURES Potassium (05/10/2021 4:42 AM INVASIVE CARDIOLOGIST) athologist Signature Potassium, S 4.8 3.6 - 5.2 05/10/2021 DTL mmol/L 5:48 AM INVASIVE CARDIOLOGIST Specimen Anatomical Collection Method Collection Time Receive d Time (Source) Location / / Volume Laterality Blood (Blood, 05/10/2021 4:42 AM 05/10/20 5:39 Venous) INVASIVE CARDIOLOGIST AM INVASIVE CARDIOLOGIST Sussy Albert M.D. LAB BLOOD ADD-ON Performing Organization Address City/State/ZIP Code Phon e Number [facility] - [address] [place], [place] [address] [facility] [place] [address] [facility] [address] [facility] (ABNORMAL) Comprehensive Metabolic Panel (05/10/2021 1:19 AM INVASIVE CARDIOLOGIST) athologist Signature Potassium, S 5.4 (H) 3.6 - 5.2 05/10/2021 DTL mmol/L 1:58 AM INVASIVE CARDIOLOGIST Sodium, S 137 135 - 145 05/10/2021 DTL mmol/L 1:58 AM INVASIVE CARDIOLOGIST Chloride, S 103 98 - 107 05/10/2021 DTL mmol/L 1:58 AM INVASIVE CARDIOLOGIST Bicarbonate, S 22 22 - 29 05/10/2021 DTL mmol/L 1:58 AM INVASIVE CARDIOLOGIST Anion Gap 12 7 - 15 05/10/2021 DTL 1:58 AM INVASIVE CARDIOLOGIST BUN (Blood Urea 14 6 - 21 05/10/2021 DTL Nitrogen), S mg/dL 1:58 AM INVASIVE CARDIOLOGIST Creatinine 0.76 0.59 - 05/10/2021 DTL 1.04 mg/dL 1:58 AM INVASIVE CARDIOLOGIST eGFR-Non >90 >=60 05/10/2021 DTL Black/ mL/min/BSA 1:58 AM INVASIVE CARDIOLOGIST Bahraini Comment: ----ADDITIONAL INFORMATION---- Estimated GFR calculated using the 2009 CKD_EPI creatinine equation. eGFR-Black/ >90 >=60 mL/min/BSA 2020 1:58 AM INVASIVE CARDIOLOGIST DTL Comment: ----ADDITIONAL INFORMATION---- Estimated GFR calculated using the 2009 CKD_EPI creatinine equation. Calcium, Total, S 8.5 (L) 8.6 - 10.0 mg/dL 05/10/2021 1:58 AM INVASIVE CARDIOLOGIST DTL Glucose, S 126 70 - 140 mg/dL 05/10/2021 1:58 AM INVASIVE CARDIOLOGIST D TL Protein, Total, S 5.7 (L) 6.3 - 7.9 g/dL 05/10/2021 1:58 A M INVASIVE CARDIOLOGIST DTL Albumin, S 4.2 3.5 - 5.0 g/dL 05/10/2021 1:58 AM INVASIVE CARDIOLOGIST D TL Aspartate Aminotransferase 598 (H) 8 - 43 U/L 05/10/2021 1 :58 AM INVASIVE CARDIOLOGIST DTL (AST), S Alkaline Phosphatase, S 49 35 - 104 U/L 05/10/2021 1: 58 AM INVASIVE CARDIOLOGIST DTL Alanine Aminotransferase 297 (H) 7 - 45 U/L 05/10/2021 1:5 8 AM INVASIVE CARDIOLOGIST DTL (ALT), S Bilirubin, Total, S 1.0 <=1.2 mg/dL 05/10/2021 1:58 AM INVASIVE CARDIOLOGIST DTL Specimen Anatomical Collection Method Collection Time Receive d Time (Source) Location / / Volume Laterality Blood (Blood, 05/10/2021 1:19 AM 05/10/20 1:27 Venous) INVASIVE CARDIOLOGIST AM INVASIVE CARDIOLOGIST Che Martinez M.D. LAB BLOOD ADD-ON Performing Organization Address City/State/ZIP Code Phon e Number [facility] - [address] [place], [place] [address] [facility] [place] [address] [facility] [address] (ABNORMAL) CBC without Differential (05/10/2021 1:19 AM INVASIVE CARDIOLOGIST) [facility] gist Method Time Signature Hemoglobin 9.6 (L) 11.6 - 05/10/2021 DHPM 15.0 g/dL 1:58 AM INVASIVE CARDIOLOGIST Hematocrit 29.5 (L) 35.5 - 05/10/2021 DHPM 44.9 % 1:58 AM INVASIVE CARDIOLOGIST Erythrocytes 3.15 (L) 3.92 - 05/10/2021 DHPM 5.13 1:58 AM INVASIVE CARDIOLOGIST x10(12)/L MCV 93.7 78.2 - 05/10/2021 DHPM 97.9 fL 1:58 AM INVASIVE CARDIOLOGIST RBC Distrib Width 17.5 (H) 12.2 - 05/10/2021 DHPM 16.1 % 1:58 AM INVASIVE CARDIOLOGIST Platelet Count 270 157 - 371 05/10/2021 DHPM x10(9)/L 1:58 AM INVASIVE CARDIOLOGIST Leukocytes 13.5 (H) 3.4 - 9.6 05/10/2021 DHPM x10(9)/L 1:58 AM INVASIVE CARDIOLOGIST Specimen Anatomical Collection Method Collection Time Receive d Time (Source) Location / / Volume Laterality Blood (Blood, 05/10/2021 1:19 AM 05/10/20 1:27 Venous) INVASIVE CARDIOLOGIST AM INVASIVE CARDIOLOGIST Che Martinez M.D. LAB BLOOD ADD-ON Performing Organization Address City/State/ZIP Code Phon e Number [facility] - [address] [place] [address] [place] [address] Laboratories-[address] DX Abdomen 1 View (05/09/2021 5:14 PM INVASIVE CARDIOLOGIST) Anatomical Region Laterality Modality Abdomen, Abdominal RST LOS, Abdominal ARZ LOS, N/A Computed Radiography Abdominal FLA LOS Specimen (Source) Anatomical Collection Method Collection Time Re ceived Time Location / / Volume Laterality 05/09/2021 5:16 PM INVASIVE CARDIOLOGIST Impressions 05/09/2021 5:34 PM INVASIVE CARDIOLOGIST Examination negative for postoperative purposes. Surgical changes in the pelvis. Expected postoperative pn eumoperitoneum. Grossly unremarkable imaged lung bases. Elevated right hemidi aphragm. Narrative 05/09/2021 5:34 PM INVASIVE CARDIOLOGIST EXAM: ??DX ABDOMEN 1 VIEW Procedure Note Aden Blanco D.O. - 05/09/2021 EXAM: DX ABDOMEN 1 VIEW IMPRESSION: Examination negative for postoperative p urposes. Surgical changes in the pelvis. Expected postoperative pn eumoperitoneum. Grossly unremarkable imaged lung bases. Elevated right hemidi aphragm. Denisha Oviedo M.D. IMG DIAGNOSTIC IMAGING PROCE SWATHI Patient Status (05/09/2021 3:39 PM INVASIVE CARDIOLOGIST) athologist Signature Temperature 36.2 37.0 deg C 05/09/2021 METH 3:40 PM INVASIVE CARDIOLOGIST FIO2 0.34 0.21=AIR 05/09/2021 METH 3:40 PM INVASIVE CARDIOLOGIST Specimen Anatomical Collection Method Collection Time Receive d Time (Source) Location / / Volume Laterality Blood 05/09/2021 3:39 PM 3:39 INVASIVE CARDIOLOGIST PM INVASIVE CARDIOLOGIST Abbey Kelly APRN, CRNA LAB BLOOD NON ADD-ON Performing Organization Address City/[facility]/ZIP Code Phon e Number [facility] - [address] [place] [address] [facility] (ABNORMAL) Glucose, Whole Blood (05/09/2021 3:39 PM INVASIVE CARDIOLOGIST) athologist [facility] Glucose 174 (H) 70 - 140 05/09/2021 METH mg/dL 3:43 PM INVASIVE CARDIOLOGIST Specimen Anatomical Collection Method Collection Time Receive d Time (Source) Location / / Volume Laterality Blood (Blood, 05/09/2021 3:39 PM 05/09/20 3:39 Arterial Line) INVASIVE CARDIOLOGIST PM INVASIVE CARDIOLOGIST Harrison Aguilar M.D. LAB BLOOD TROPONIN Performing Organization Address City/[facility] Phon e Number [facility] - [address] Potassium, Blood (05/09/2021 3:39 PM INVASIVE CARDIOLOGIST) athologist Signature Potassium, B 3.8 3.6 - 5.2 05/09/2021 METH mmol/L 3:43 PM INVASIVE CARDIOLOGIST Specimen Anatomical Collection Method Collection Time Receive d Time (Source) Location / / Volume Laterality Blood (Blood, 05/09/2021 3:39 PM 05/09/20 3:39 Arterial Line) INVASIVE CARDIOLOGIST PM INVASIVE CARDIOLOGIST Harrison Aguilar M.D. LAB BLOOD NON ADD-ON Performing Organization Address City/[facility]/ZIP Code Phon e Number [facility] - [address] [place], [place] [address] [place] [address] Sodium, B (05/09/2021 3:39 PM INVASIVE CARDIOLOGIST) athologist Signature Sodium, B 140 135 - 145 05/09/2021 3:43 METH mmol/L PM INVASIVE CARDIOLOGIST Specimen Anatomical Collection Method Collection Time Receive d Time (Source) Location / / Volume Laterality Blood (Blood, 05/09/2021 3:39 PM 05/09/20 3:39 Arterial Line) INVASIVE CARDIOLOGIST PM INVASIVE CARDIOLOGIST Harrison Aguilar M.D. LAB BLOOD NON ADD-ON Performing Organization Address City/[facility]/ZIP Code Phon e Number [facility] - [address] [place], [place] [address] [place] [address] [facility] 200 [facility] (ABNORMAL) Calcium, Ionized (05/09/2021 3:39 PM INVASIVE CARDIOLOGIST) athologist Signature Calcium, 4.51 (L) 4.65 - 05/09/2021 METH Ionized, B 5.30 mg/dL 3:43 PM INVASIVE CARDIOLOGIST Specimen Anatomical Collection Method Collection Time Receive d Time (Source) Location / / Volume Laterality Blood (Blood, 05/09/2021 3:39 PM 05/09/20 3:39 Arterial Line) INVASIVE CARDIOLOGIST PM INVASIVE CARDIOLOGIST Harrison Aguilar M.D. LAB BLOOD NON ADD-ON Performing Organization Address City/[facility]/ZIP Code Phon e Number [facility] - [address] [place], [place] [address] [place] [address] [place] [address] [facility] (ABNORMAL) Blood Gas with Coox, Arterial (05/09/2021 3:39 PM INVASIVE CARDIOLOGIST) athologist Signature pO2 222 (H) 83 - 108 05/09/2021 METH mm Hg 3:43 PM INVASIVE CARDIOLOGIST pCO2 40 32 - 45 mm 05/09/2021 METH Hg 3:43 PM INVASIVE CARDIOLOGIST pH 7.40 7.35 - 05/09/2021 METH 7.45 pH 3:43 PM INVASIVE CARDIOLOGIST Base Excess -1 -2 - 3 05/09/2021 METH mmol/L 3:43 PM INVASIVE CARDIOLOGIST HCO3 25 22 - 26 05/09/2021 METH mmol/L 3:43 PM INVASIVE CARDIOLOGIST Hemoglobin, B 8.1 (L) 11.6 - 05/09/2021 METH 15.0 g/dL 3:43 PM INVASIVE CARDIOLOGIST O2Hb 98.3 (H) 94.0 - 05/09/2021 METH 98.0 % 3:43 PM INVASIVE CARDIOLOGIST COHb 1.4 <3.0 % 05/09/2021 METH 3:43 PM INVASIVE CARDIOLOGIST MetHb <1.0 <1.5 % 05/09/2021 METH 3:43 PM INVASIVE CARDIOLOGIST CtO2 11.7 (L) 18.0 - 05/09/2021 METH 21.0 vol % 3:43 PM INVASIVE CARDIOLOGIST Specimen Anatomical Collection Method Collection Time Receive d Time (Source) Location / / Volume Laterality Blood (Blood, 05/09/2021 3:39 PM 05/09/20 21 3:39 Arterial Line) INVASIVE CARDIOLOGIST PM INVASIVE CARDIOLOGIST Harrison Aguilar M.D. LAB BLOOD NON ADD-ON Performing Organization Address City/[facility]/ZIP Code Phon e Number [facility] - [address] [place], [place] [address] [facility] [place] [address] [facility] 200 [facility] Patient Status (05/09/2021 1:01 PM INVASIVE CARDIOLOGIST) athologist Signature Temperature 35.7 37.0 deg C 05/09/2021 METH 1:01 PM INVASIVE CARDIOLOGIST FIO2 0.40 0.21=AIR 05/09/2021 METH 1:01 PM INVASIVE CARDIOLOGIST Specimen Anatomical Collection Method Collection Time Receive d Time (Source) Location / / Volume Laterality Blood 05/09/2021 1:01 PM 1:01 INVASIVE CARDIOLOGIST PM INVASIVE CARDIOLOGIST Abbey Kelly POT FISHER, ELEVATOR ATTENDANT LAB BLOOD NON ADD-ON Performing Organization Address City/State/ZIP Code Phon e Number [facility] - [address] [place], [place] [address] [place] [address] [facility] [address] (ABNORMAL) Glucose, Whole Blood (05/09/2021 1:01 PM INVASIVE CARDIOLOGIST) athologist Signature Glucose 185 (H) 70 - 140 05/09/2021 METH mg/dL 1:08 PM INVASIVE CARDIOLOGIST Specimen Anatomical Collection Method Collection Time Receive d Time (Source) Location / / Volume Laterality Blood (Blood, 05/09/2021 1:01 PM 05/09/20 1:01 Arterial Line) INVASIVE CARDIOLOGIST PM INVASIVE CARDIOLOGIST Harrison Aguilar M.D. LAB BLOOD TROPONIN Performing Organization Address City/[facility] Phon e Number [facility] - [address] [place], [place] [address] [place] [address] [facility] [address] [facility] Potassium, Blood (05/09/2021 1:01 PM INVASIVE CARDIOLOGIST) athologist Signature Potassium, B 3.6 3.6 - 5.2 05/09/2021 METH mmol/L 1:08 PM INVASIVE CARDIOLOGIST Specimen Anatomical Collection Method Collection Time Receive d Time (Source) Location / / Volume Laterality Blood (Blood, 05/09/2021 1:01 PM 05/09/20 1:01 Arterial Line) INVASIVE CARDIOLOGIST PM INVASIVE CARDIOLOGIST Harrison Aguilar M.D. LAB BLOOD NON ADD-ON Performing Organization Address City/[facility]/ZIP [facility] Phon e Number [facility] - [address] [place], [place] [address] [place] [address] [facility] 200 [facility] Sodium, B (05/09/2021 1:01 PM INVASIVE CARDIOLOGIST) athologist Signature Sodium, B 140 135 - 145 05/09/2021 1:08 METH mmol/L PM INVASIVE CARDIOLOGIST Specimen Anatomical Collection Method Collection Time Receive d Time (Source) Location / / Volume Laterality Blood (Blood, 05/09/2021 1:01 PM 05/09/20 1:01 Arterial Line) INVASIVE CARDIOLOGIST PM INVASIVE CARDIOLOGIST Harrison Aguilar M.D. LAB BLOOD NON ADD-ON Performing Organization Address City/State/ZIP Code Phon e Number [facility] - [address] [place], [place] [address] [facility] [place] [address] Laboratories-[address] (ABNORMAL) Calcium, Ionized (05/09/2021 1:01 PM INVASIVE CARDIOLOGIST) athologist Signature Calcium, 4.52 (L) 4.65 - 05/09/2021 METH Ionized, B 5.30 mg/dL 1:08 PM INVASIVE CARDIOLOGIST Specimen Anatomical Collection Method Collection Time Receive d Time (Source) Location / / Volume Laterality Blood (Blood, 05/09/2021 1:01 PM 05/09/20 1:01 Arterial Line) INVASIVE CARDIOLOGIST PM INVASIVE CARDIOLOGIST Harrison Aguilar M.D. LAB BLOOD NON ADD-ON Performing Organization Address City/[facility] Phon e Number [facility] - [address] [place], [place] [address] [place] [address] [facility]-[address] (ABNORMAL) Blood Gas with Coox, Arterial (05/09/2021 1:01 PM INVASIVE CARDIOLOGIST) P athologist Signature pO2 213 (H) 83 - 108 05/09/2021 METH mm Hg 1:08 PM INVASIVE CARDIOLOGIST pCO2 38 32 - 45 mm 05/09/2021 METH Hg 1:08 PM INVASIVE CARDIOLOGIST pH 7.41 7.35 - 05/09/2021 METH 7.45 pH 1:08 PM INVASIVE CARDIOLOGIST Base Excess -1 -2 - 3 05/09/2021 METH mmol/L 1:08 PM INVASIVE CARDIOLOGIST HCO3 24 22 - 26 05/09/2021 METH mmol/L 1:08 PM INVASIVE CARDIOLOGIST Hemoglobin, B 9.2 (L) 11.6 - 05/09/2021 METH 15.0 g/dL 1:08 PM INVASIVE CARDIOLOGIST O2Hb 99.7 (H) 94.0 - 05/09/2021 METH 98.0 % 1:08 PM INVASIVE CARDIOLOGIST COHb 1.1 <3.0 % 05/09/2021 METH 1:08 PM INVASIVE CARDIOLOGIST MetHb <1.0 <1.5 % 05/09/2021 METH 1:08 PM INVASIVE CARDIOLOGIST CtO2 13.4 (L) 18.0 - 05/09/2021 METH 21.0 vol % 1:08 PM INVASIVE CARDIOLOGIST Specimen Anatomical Collection Method Collection Time Receive d Time (Source) Location / / Volume Laterality Blood (Blood, 05/09/2021 1:01 PM 05/09/20 1:01 Arterial Line) INVASIVE CARDIOLOGIST PM INVASIVE CARDIOLOGIST Harrison Aguilar M.D. LAB BLOOD NON ADD-ON Performing Organization Address City/State/ZIP Code Phon e Number [facility] - [address] [place], [place] [address] [facility] [place] [address] [facility] [address] Surgical Pathology, Frozen Lab (05/09/2021 10:04 AM INVASIVE CARDIOLOGIST) Component Value Ref Test Analysis Performed Pathologis t Range Method Time At Signature 05/11/2021 METH 2:48 PM INVASIVE CARDIOLOGIST Participated in Tim Rodrigues M.D. 05/11/2021 METH the -Pathology 2:48 PM Interpretation Resident INVASIVE CARDIOLOGIST Report Sophia Ndiaye M.D. [phone] 05/11/2021 MET H electronically 2:48 PM signed by INVASIVE CARDIOLOGIST I verify that I have examined all relevant slides/materials for the specimen(s) and rendered or confirmed the diagnosis. Gross Description A. ??Received fresh labeled umbilical nodule is a 2.2 x 05/11/2021 METH 1.7 2:48 PM x 0.6 cm fragment of red-orosco soft tissue. ??There is a 0.7 x INVASIVE CARDIOLOGIST 0.6 cm nodule identified upon sectioning. ??All submitted for permanent sections only. ??Grossed by PDH. B. ??Received fresh labeled falciform ligament is a 3.9 x 3.2 x 0.6 cm portion of pink-red fibrofatty tissue. Marking Clerk tissue submitted for permanent sections only. Grossed by PDH. C. ??Received fresh labeled omentum is a 42 x 12 x 1 cm portion of omentum. ??There is a 0.3 x 0.2 x 0.2 cm calcified nodule. ??Lymph nodes are identified. ??Marking Clerk tissu e submitted for permanent sections only. ??Grossed by RAL. D. ??Received fresh labeled liver wedge segment 4B/3 nodule is a 18 gram, 4.3 x 3.8 x 3.7 cm liver wedge specimen. ??A single 2.6 x 2.4 x 1.4 cm orosco-white mass is present 0.1 cm from the inked surgical margin. ??Margin is submitted perpendicularly. ??Marking Clerk tissue submitted for permanent sections only. ??Grossed by DJS. Box. ??Received fresh labeled right diaphragm is a 7.1 x 3.2 x 1.6 cm portion of red-orosco fibrous tissue. ??At one aspect, there is a 3.6 x 1.7 x 0.6 cm nodule. ??Additional smaller nodules are identified. ??Marking Clerk tissue submitted for permanent sections only. ??Grossed by PDH. Brizuela. ??Received fresh labeled right anterior abdominal wall is a 3.8 x 2 x 0.5 cm portion of red-pink, peritonealized fibromembranous tissue. ??A 0.2 cm nodule is present. Marking Clerk tissue submitted for permanent sections only. Grossed [...] nodule. Hilar lymph nodes are not identified. ??Marking Clerk tissue submitted for permanent sections only. ??Grossed [...] tube has multiple adhesions and serosal implants. ??Marking Clerk tissue submitted for permanent sections only. ??Grossed [...] 3 x 1.6 cm of soft tissue. Marking Clerk tissue submitted for permanent sections only. Grossed by RAK. Gallegos ??Received fresh labeled portion of sigmoid colon is a 13.5 cm in length portion of colon. ??There are serosal tumor implants and adhesions. ??The mucosa is unremarkable. Marking Clerk tissue submitted for permanent sections only. Grossed by EDNA. Block Summary A Umbilical nodule 05/11/2021 METH A1 Umbilical nodule 1 2:48 PM A2 Umbilical nodule 2 INVASIVE CARDIOLOGIST B Falciform ligament B1 Nodular area 1 [...] will be performed on block J2 at [facility] 3:33 PM [facility], [place], [place]. INVASIVE CARDIOLOGIST Signed by James Pantoja M.D., Ph.D. 07/01/2021 3:33 PM Comment: REVISED RESULTS Interpretation FINAL DIAGNOSIS 07/01/2021 3:33 PM INVASIVE CARDIOLOGIST METH J. ??Fallopian tube and ovary, right, [...] Volume Laterality Tissue 05/09/2021 10:04 (Umbilicus) AM INVASIVE CARDIOLOGIST Tissue (Pelvis) 05/09/2021 10:06 AM INVASIVE CARDIOLOGIST Tissue (Omentum) 05/09/2021 10:57 AM INVASIVE CARDIOLOGIST Tissue (Liver) 05/09/2021 11:43 AM INVASIVE CARDIOLOGIST Tissue 05/09/2021 11:59 (Diaphragm, AM INVASIVE CARDIOLOGIST Right) Tissue (Abdomen) 05/09/2021 12:07 PM INVASIVE CARDIOLOGIST Tissue (Pelvis, 05/09/2021 12:11 Right) PM INVASIVE CARDIOLOGIST Tissue 05/09/2021 12:36 (Diaphragm, Left) PM INVASIVE CARDIOLOGIST Tissue (Spleen) 05/09/2021 12:57 PM INVASIVE CARDIOLOGIST Tissue (Ovary, 05/09/2021 1:22 PM Right) INVASIVE CARDIOLOGIST Tissue (Uterus) 05/09/2021 3:05 PM INVASIVE CARDIOLOGIST Tissue (Colon) 05/09/2021 3:10 PM INVASIVE CARDIOLOGIST Narrative This result has an attachment that is no t available. Denisha Oviedo M.D. LAB SURG PATH ORDERABLES Performing Organization Address [facility] Phon e Number [facility] - [address] [place] [address] [address] [facility] [place] [address] [place] [address] [facility] Type and Screen (with reflex Antibody ID) (05/09/2021 7:29 AM INVASIVE CARDIOLOGIST) [facility] gist Method Time Signature ABORh B Neg Not 05/09/2021 ETRM applicable 9:21 AM INVASIVE CARDIOLOGIST Antibody Negative Negative 05/09/2021 ETRM Screen 9:32 AM INVASIVE CARDIOLOGIST Type & Screen 05/12/2021 05/09/2021 ETRM Expiration 23:59 9:21 AM INVASIVE CARDIOLOGIST Testing [place] DEFAULT 05/09/2021 ETRM Location 8:27 AM INVASIVE CARDIOLOGIST Specimen Anatomical Collection Method Collection Time Receive d Time (Source) Location / / Volume Laterality Blood (Blood, 05/09/2021 7:29 AM 05/09/20 8:27 Venous) INVASIVE CARDIOLOGIST AM INVASIVE CARDIOLOGIST Denisha Oviedo M.D. LAB BLOOD BANK TEST ORDERABL ES Performing Organization Address [facility] Phon e Number [facility] - [address] [address] documented in this encounter Visit Diagnoses [...] 5:51 PM 1,000 mg 400 mL/hr mg INVASIVE CARDIOLOGIST 1,000 mg, intravenous, at 400 mL/hr, Administer [...] 1,000 mg (TYLENOL) Given 05/09/2021 8:00 AM INVASIVE CARDIOLOGIST 1,000 mg 1,000 mg, oral, Once, On Sun05/09/21 at 0745, For 1 dose, Pre-Op, In Pre Op holding (PWA) acetaminophen tablet 1,000 mg (TYLENOL) Given 05/14/2021 6:19 AM INVASIVE CARDIOLOGIST 1,000 mg 1,000 mg, oral, Every 6 hours, First dose on Sun05/10/21 at 0000, not to exceed 4 grams in 24 hours. Given 05/13/2021 11:53 PM INVASIVE CARDIOLOGIST 1,000 mg Given 05/13/2021 5:50 PM INVASIVE CARDIOLOGIST 1,000 mg alvimopan capsule 12 mg (ENTEREG) Given 05/11/2021 8:55 AM INVASIVE CARDIOLOGIST 12 mg 12 mg, oral, 2 times daily, First dose on Sun05/09/21 at 2100, For 7 days, Until bowel movement or hospital discharge. Maximum 7 days., Has the patient received fewer than 15 doses? Yes, I certify that I have reviewed and ensured compliance to the REMS program requirements outlined in the reference links: Yes Given 05/10/2021 9:12 PM INVASIVE CARDIOLOGIST 12 mg Given 05/10/2021 8:25 AM INVASIVE CARDIOLOGIST 12 mg benzocaine-menthoL 15-3.6 mg per lozenge 1 Given 05/10 1:26 AM INVASIVE CARDIOLOGIST 1 lozenge lozenge (CEPACOL) 1 lozenge, oral, As needed, sore throat, Starting on Sun05/09/21 at 2025 calcium carbonate chewable tablet Given 05/11/2021 6:3 1 PM INVASIVE CARDIOLOGIST 400 mg of calcium 400 mg of calcium (TUMS) 400 mg of calcium, oral, 3 times daily PRN, indigestion, heartburn, Starting on Sun05/09/21 at 2026, Doses listed are in mg of elemental calcium. Take with food. 500 mg calcium carbonate contains 200 mg of elemental calcium. ceFAZolin in dextrose (iso-os) IVPB 2 New Bag 05/10/2021 3:20 PM INVASIVE CARDIOLOGIST 2 g 200 mL/hr g (ANCEF) 2 g, intravenous, at 200 mL/hr, Administer over 30 Minutes, Every 8 hours, First dose on Sun05/09/21 at 2300, For 24 hours, Drug Monitoring Program: Pharmacist to adjust medication dosing based on indication and drug clearance factors., Indications: Prophylaxis, surgical New Bag 05/10/2021 6:53 AM INVASIVE CARDIOLOGIST 2 g 200 mL/hr New Bag 05/09/2021 11:18 PM INVASIVE CARDIOLOGIST 2 g 200 mL/hr celecoxib capsule 400 mg (CeleBREX) Given 05/09/2021 7:59 AM INVASIVE CARDIOLOGIST 400 mg 400 mg, oral, Once, On Sun05/09/21 at 0745, For 1 dose, Pre-Op, Pre-procedure on unit. Not to be administered for true sulfa allergy, acute GI bleed, history of GI bleed within past 6 months, or NSAID contraindications. cyclobenzaprine tablet 5 mg (FLEXERIL) Given 05/10/2021 4:31 AM INVASIVE CARDIOLOGIST 5 mg 5 mg, oral, Once as needed, muscle spasms, Starting on Sun05/10/21 at 0312, For 1 dose cyclobenzaprine tablet 5 mg (FLEXERIL) Given 05/14/2021 2:11 AM INVASIVE CARDIOLOGIST 5 mg 5 mg, oral, 3 times daily PRN, muscle spasms, Starting on Misty 05/12/21 at 0744 Given 05/13/2021 8:26 PM INVASIVE CARDIOLOGIST 5 mg Given 05/13/2021 2:01 PM INVASIVE CARDIOLOGIST 5 mg diphenhydrAMINE capsule 25 mg (BENADRYL) Given 05/10/2021 4:31 AM INVASIVE CARDIOLOGIST 25 mg 25 mg, oral, Every 6 hours PRN, itching, sleep, Starting on Sun05/10/21 at 0251 enoxaparin injection 40 mg Given 05/13/2021 2:01 PM INVASIVE CARDIOLOGIST 40 mg Left Outer Thigh (LOVENOX) 40 mg, subcutaneous, Daily, First dose on Sun05/11/21 at 1400 Given 05/12/2021 2:58 PM INVASIVE CARDIOLOGIST 40 mg Right Outer Thigh Given 05/11/2021 2:06 PM INVASIVE CARDIOLOGIST 40 mg Right Upper Hip haloperidol lactate injection 1 mg (HALD OL) Given 05/10/2021 5:50 PM INVASIVE CARDIOLOGIST 1 mg 1 mg, intravenous, Every 6 [...] promethazine) heparin (porcine) Given 05/11/2021 5:24 AM INVASIVE CARDIOLOGIST 5,000 Units Right Outer Thigh injection 5,000 Units 5,000 Units, subcutaneous, Every 8 hours scheduled, First dose on Sun05/09/21 at 2200 Given 05/10/2021 9:12 PM INVASIVE CARDIOLOGIST 5,000 Units Left Outer Thigh Given 05/10/2021 2:36 PM INVASIVE CARDIOLOGIST 5,000 Units Left Outer Thigh HYDROmorphone (PF) [...] oral pain medication. Given 05/10/2021 7:52 PM INVASIVE CARDIOLOGIST 0.4 mg Given 05/10/2021 3:31 PM INVASIVE CARDIOLOGIST 0.4 mg HYDROmorphone tablet 2 mg (DILAUDID) Given 05/10/2021 1:15 PM INVASIVE CARDIOLOGIST 2 mg 2 mg, oral, Every 4 hours PRN, severe pain or score 7-10 of 10, Starting on Sun05/10/21 at 1238 HYDROmorphone tablet 2 mg (DILAUDID) Given 05/14/2021 10:29 AM INVASIVE CARDIOLOGIST 2 mg 2 mg, oral, Every 4 hours PRN, moderate pain or score 4-6 of 10, Starting on Sun05/10/21 at 1518 Given 05/14/2021 6:23 AM INVASIVE CARDIOLOGIST 2 mg Given 05/12/2021 2:59 PM INVASIVE CARDIOLOGIST 2 mg HYDROmorphone tablet 4 mg (DILAUDID) Given 05/14/2021 2:11 AM INVASIVE CARDIOLOGIST 4 mg 4 mg, oral, Every 4 hours PRN, severe pain or score 7-10 of 10, Starting on Sun05/10/21 at 1518 Given 05/13/2021 8:26 PM INVASIVE CARDIOLOGIST 4 mg Given 05/13/2021 4:19 PM INVASIVE CARDIOLOGIST 4 mg ibuprofen tablet 600 mg (ADVIL,MOTRIN) Given 05/14/2021 6:19 AM INVASIVE CARDIOLOGIST 600 mg 600 mg, oral, Every 6 hours, First dose on Sun05/10/21 at 1900, start 6 hours after last ketorolac dose administered Given 05/13/2021 11:54 PM INVASIVE CARDIOLOGIST 600 mg Given 05/13/2021 5:50 PM INVASIVE CARDIOLOGIST 600 mg ketorolac injection 15 mg (TORADOL) Given 05/10/2021 12:32 PM INVASIVE CARDIOLOGIST 15 mg 15 mg, intravenous, Every 6 [...] drug clearance factors. Given 05/10/2021 6:01 AM INVASIVE CARDIOLOGIST 15 mg Given 05/10/2021 1:16 AM INVASIVE CARDIOLOGIST 15 mg lactated ringers Continued from OR 05/09/2021 5:33 PM INVASIVE CARDIOLOGIST 20 mL/hr 20 mL/hr 20 mL/hr, intravenous, Continuous, Starting on Sun05/09/21 at 1530, PACU & Post-Op lactated ringers Rate/Dose Change 05/09/2021 6:59 PM INVASIVE CARDIOLOGIST 40 mL/hr 40 mL/hr 40 mL/hr, intravenous, Continuous, Starting on Sun05/09/21 at 1845 lisdexamfetamine capsule 70 mg (VYVANSE) Given 05/14/2021 6:19 AM INVASIVE CARDIOLOGIST 70 mg 70 mg, oral, Daily, First dose on Sun05/10/21 at 0700, See tube feeding guidelines for tube feeding administration instructions. Given 05/13/2021 6:06 AM INVASIVE CARDIOLOGIST 70 mg Given 05/12/2021 6:56 AM INVASIVE CARDIOLOGIST 70 mg magnesium hydroxide suspension 30 mL (MILK OF Given 8:26 PM INVASIVE CARDIOLOGIST 30 mL MAGNESIA) 30 mL, oral, 2 times daily, First dose on Sun05/09/21 at 2100, Starting evening of surgery. After first bowel movement discontinue Magnesium hydroxide Given 05/13/2021 9:55 AM INVASIVE CARDIOLOGIST 30 mL Given 05/12/2021 7:07 PM INVASIVE CARDIOLOGIST 30 mL MCV4: quadrivalent meningococcal Given 05/12/2021 7:08 PM INVASIVE CARDIOLOGIST 0. 5 mL Other conjugate (PF) vaccine 0.5 mL (MENVEO) 0.5 mL, intramuscular, Once, On Misty 05/12/21 at 1600, For 1 dose melatonin tablet 3 mg Given 05/11/2021 10:21 PM INVASIVE CARDIOLOGIST 3 mg 3 mg, oral, Bedtime PRN, sleep, Starting on Sun05/09/21 at 2026 MenB: meningococcal B vaccine 0.5 mL Given 05/12/2021 7:12 PM CS T 0.5 mL Other (BEXSERO) 0.5 mL, intramuscular, Once, On Misty 05/12/21 at 1600, For 1 dose metroNIDAZOLE in NaCl (iso-osm) New Bag 05/10/2021 2:36 PM INVASIVE CARDIOLOGIST 500 mg 200 mL/hr IVPB 500 mg (FLAGYL) 500 mg, intravenous, at 200 mL/hr, Administer over 30 Minutes, Every 8 hours, First dose on Sun05/09/21 at 2230, For 24 hours, Indications: Prophylaxis, surgical New Bag 05/10/2021 6:00 AM INVASIVE CARDIOLOGIST 500 mg 200 mL/hr New Bag 05/09/2021 10:36 PM INVASIVE CARDIOLOGIST 500 mg 200 mL/hr NaCl 0.9 % bolus 1,000 mL New Bag 05/10/2021 3:25 AM INVASIVE CARDIOLOGIST 1,000 mL 1000 mL/hr 1,000 mL, intravenous, at 1,000 mL/hr, Administer over 1 Hours, Once, On Sun05/10/21 at 0300, For 1 dose nalbuphine injection 2.5 mg (NUBAIN) Given 05/10/2021 1:08 PM INVASIVE CARDIOLOGIST 2.5 mg 2.5 mg, intravenous, Every 4 hours PRN, itching, Starting on Sun05/09/21 at 1840, For 4 doses, PACU & Post-Op Given 05/09/2021 9:31 PM INVASIVE CARDIOLOGIST 2.5 mg ondansetron (PF) injection 4 mg (ZOFRAN) Given 05/11/2021 7:29 PM INVASIVE CARDIOLOGIST 4 mg 4 mg, intravenous, Every 6 hours PRN, nausea, vomiting, Starting on Sun05/09/21 at 1840, Reassess for nausea or vomiting after at least 10 minutes. If nausea or vomiting persists administer next ordered antiemetic medications (order for antiemetic medication administration ondansetron then droperidol then promethazine). Given 05/10/2021 3:41 PM INVASIVE CARDIOLOGIST 4 mg oxybutynin tablet 5 mg (DITROPAN) 5 mg, oral, Every 8 hours PRN, bladder spasms, Startin g on Sun05/09/21 at 2025 oxyCODONE IR tablet 10 mg (ROXICODONE) Given 05/10/2021 7:59 AM INVASIVE CARDIOLOGIST 10 mg 10 mg, oral, Every 4 hours PRN, severe pain or score 7-10 of 10, Starting on Sun05/09/21 at 0836, For 24 hours, PACU & Post-Op, To be administered in the first 24 hours after intrathecal dose given. Given 05/09/2021 7:02 PM INVASIVE CARDIOLOGIST 10 mg oxyCODONE IR tablet 5 mg (ROXICODONE) Given 05/10/2021 1:26 AM INVASIVE CARDIOLOGIST 5 mg 5 mg, oral, Every 4 hours PRN, moderate pain or score 4-6 of 10, Starting on Sun05/09/21 at 0836, For 24 hours, PACU & Post-Op, To be administered in the first 24 hours after intrathecal dose given. promethazine injection 6.25 mg (PHENERGA N) Given 05/11/2021 10:11 PM INVASIVE CARDIOLOGIST 6.25 mg 6.25 mg, intravenous, Every 6 [...] Left Ear over 3 days 1 patch INVASIVE CARDIOLOGIST (TRANSDERM SCOP) 1 patch, transdermal, Administer over 72 Hours, Once as needed, nausea and vomiting, Starting on Sun05/09/21 at 0802, For 1 dose, Pre-Op, Contains 1.5 mg to deliver 1 mg/72 hours. sennosides tablet 17.2 mg (SENOKOT) Given 05/13/2021 10:30 PM INVASIVE CARDIOLOGIST 17.2 mg 17.2 mg, oral, Daily, First dose on Sun05/13/21 at 2115 simethicone chewable tablet 80 mg (MYLIC ON) Given 05/13/2021 9:55 AM INVASIVE CARDIOLOGIST 80 mg 80 mg, oral, 4 times daily PRN, flatulence, Starting on Sun05/09/21 at 2025 Given 05/13/2021 3:38 AM INVASIVE CARDIOLOGIST 80 mg Given 05/11/2021 3:35 PM INVASIVE CARDIOLOGIST 80 mg sodium phosphates enema 1 enema (FLEET) Given 05/09/2021 7:00 AM INVASIVE CARDIOLOGIST 1 enema 1 enema, rectal, Once, On Sun05/09/21 at 0645, For 1 dose, Pre-Op, Give Fleets if not done at home the morning of surgery documented in this encounter Active and Recently Administered Medications Times are shown in INVASIVE CARDIOLOGIST. Scheduled Medication Order 05/12/2021 05/13/2021 05/14/2021 acetaminophen [...] (COMPLE MARLEY) 1911 (Given - Provider: Celeste Goldbegr R.N. - Comment: L regla) 0.5 mL, [...]
--- OUTSIDE RECORDS SUMMARY | 2022-03-16 10:29 | XMS_ITS | Encounter Summary ---
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) [facility] [address] [place] [address] Referral ID Status Reason Start Date Expiration Date Visits Requ ested Visits Authorized [id number] Closed 05/03/2021 05/03/2022 1 1 Encounter Details Date Type Department Care Team Description 05/03/2021 Comprehensive Visit Division of Wilma Castro Neoplasm Of Ovary Laterality Unknown (HCC); Hepatobiliary and Kelly Estrada Lesion Liver Pancreas Surgery in [address] [place], [place] [address] [place] [phone] [place], [place] [phone] (Work) [phone] Social History Tobacco Use Types Packs/Day Years [...] 1 to 4 times per year 02/09 adventism services? Do you belong to any clubs [...] care including same-day records review and documentation. CUTTER documented in this encounter Plan of Treatment Upcoming Encounters Date Type Specialty Care Team Description 04/11/2022 Clinical Communication Admitting/Central Scheduling 04/13/2022 Appointment Laboratory Medicine Debbie Ivey M.D. [address] [place] [address] 04/13/2022 Office Visit Oncology Walter Barnhart M.D., Ph.D. [address] [place] [address] documented as of this encounter Visit Diagnoses Diagnosis Malignant Neoplasm Of Ovary Laterality U nknown (HCC) Lesion Liver documented in this encounter
--- OUTSIDE RECORDS SUMMARY | 2022-03-16 10:29 | XMS_ITS | Encounter Summary ---
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 [address] [place], [place] [phone] Referral ID Status Reason Start Date Expiration Date Visits Requ ested Visits Authorized [id number] Closed 04/18/2021 05/18/2021 1 1 Encounter Details Date Type Department Care Team Description 05/02/2021 Hospital Encounter Department of Walter Barnhart Malign ant Neoplasm Radiology brittney De La Cruz M.D., Ph.D. Of Ovary Laterality [place], [place] [address] [facility] ([facility] [address] [place] [phone] Social History Tobacco Use Types Packs/Day [...] Sig Dispensed Refills Start Date End Date xwukpwx-[id number]-[id number]-oreg- Take 1 tablet by 0 capryl 100 [...] Laboratory Medicine Debbie Ivey M.D. [address] [place] [phone] 04/13/2022 Office Visit Oncology Walter Barnhart M.D., Ph.D. [address] [place] [phone] documented as of this encounter Procedures Procedure Name Priority Date/Time Associated Comments Diagnosis CT CHEST WITH IV RAD - Routine 05/02/2021 10:52 Malignant Result s for this CONTRAST (most inpatients AM BELT PUNCHER Neoplasm Of Ovary proced ure are in and all Laterality the results outpatients) Unknown (HCC) section. documented in this encounter Results CT Chest with IV Contrast (05/02/2021 10:52 AM BELT PUNCHER) Anatomical Region Laterality Modality Chest, Thoracic RST LOS, Thoracic ARZ LOS, Thoracic N/A Computed Tomography ARZ LOS, Thoracic FLA LOS Specimen (Source) Anatomical Collection Method Collection Time Re ceived Time Location / / Volume Laterality 05/02/2021 11:10 AM BELT PUNCHER Impressions 05/02/2021 11:15 AM BELT PUNCHER No acute disease. Stable tiny pulmonary nodules. Narrative 05/02/2021 11:15 AM BELT PUNCHER EXAM: CT CHEST WITH IV CONTRAST 3D/MIPS: [...] mg iodine/mL solution Given 05/02/2021 10:54 AM BELT PUNCHER 80 mL 1-200 mL (OMNIPAQUE) 1-200 mL, intravenous, Once in imaging, contrast, Starting on Sun05/02/21 at 1053, For 1 dose, Imaging Protocol Orders, Dose per Radiant Medication Guidelines NaCl 0.9 % bolus 100 mL New Bag 05/02/2021 10:44 AM BELT PUNCHER 100 mL 100 mL/hr 100 mL, intravenous, at 100 mL/hr, Administer over 1 Hours, Once, On Sun05/02/21 at 1100, For 1 dose sodium chloride 0.9 % injection 10 mL Given 05/02/2021 10:44 AM BELT PUNCHER 10 mL 10 mL, intravenous, Once in imaging, line care, Starting on Sun05/02/21 at 1053, For 1 dose documented in this encounter
--- OUTSIDE RECORDS SUMMARY | 2022-03-16 10:29 | XMS_ITS | Encounter Summary ---
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 [facility] Procedures Stomal Therapy [address] [place], [place] [phone] Referral ID Status Reason Start Date Expiration Date Visits Requ ested Visits Authorized [id number] Closed 05/03/2021 05/03/2022 1 1 Encounter Details Date Type Department Care Team Description 05/04/2021 Clinical Support Division of Colon Mike Oviedo M.D. [address] [place] [phone] Education Need Ostomy (Primary Dx); and Rectal Surgery Stefanie Muse R.N., COCN Malignant Neoplasm Of Ovary Laterality U nknown (HCC) in [place], [place] [address] [place] [phone] Social History Tobacco Use Types Packs/Day Years [...] and free of skin creases or scars. 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 [address] [place] [address] 04/13/2022 Office Visit Oncology Walter Barnhart M.D., Ph.D. 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
--- OUTSIDE RECORDS SUMMARY | 2022-03-16 10:29 | XMS_ITS | Encounter Summary ---
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) [C56.9] Procedures VA SALPINGO-OOPHORECTOMY BILAT HYST VA HEPATECTMY RESECT PARTL LOBECT VA US GUIDE INTRAOPERATIVE VA CYSTHRSCPY W INS URETERAL STNT LAPAROTOMY, TUMOR DEBULKING HYSTERECTOMY ABDOMINAL WITH BILATERAL SALPINGO-OOPHORECTOMY OMENTECTOMY POSSIBLE RESECTION SMALL INTESTINE WITH ANASTOMOSIS, PROCEED INDICATED WEDGE RESECTION LIVER INTRAOPERATIVE ULTRASOUND LIVER CYSTOSCOPY INSERTION STENT URETER Referral ID Status Reason Start Date Expiration Date Visits Requ ested Visits Authorized [id number] 1 1 Encounter Details Date Type Department Care Team Description 05/09/2021 Anesthesia Event RST [facility] OR Harrison Aguilar M.D. [address] [place] [phone] [address] Abbey Rodrigez, BANK OFFICER, PRODUCTION STATISTICAL CLERK [address] [place] [phone] [place] [phone] Anesthesia Record Procedure Summary Procedure Name Responsible [...] h andoff to the receiving staff during [facility] we 1. Identified the [...] Kelly, Kaylen dean, Roldan W, 05/09/21; 165 BANK OFFICERMARK Myles APRN, MARK Ureteral Drain/Stent 05/09/21; 0938; [...] 1 to 4 times per year 02/09 orthodox services? Do you belong to any clubs [...] Procedure Summary Date: 05/09/21 [address] / [facility] in [place], [place] Anesthesia Start: 829 Anesthesia Stop: 170 [...] Post Op nausea/vomiting: none Hydration status: euvolemic RIAL INSPECTOR Anesthesia Procedure Notes - Abbey Kelly APRN, [...] successful Airway event: no complications ATTESTATION STATEMENT RIAL INSPECTOR Anesthesia Procedure Notes - Abbey Kelly APRN, [...] successful procedure Other complications: none ATTESTATION STATEMENT RIAL INSPECTOR Anesthesia Procedure Notes - Abbey Kelly APRN, [...] yes Complications - arterial: none ATTESTATION STATEMENT RIAL INSPECTOR Anesthesia Preprocedure Evaluation - Sharif Dominique M.D. [...] Of Ovary Laterality Unknown (HCC) [C56.9]. Location: [place] [address] / [facility] in [place], [place] Providers: Denisha Oviedo M.D.; Wilma Castro [...] with patient /legal guardian or through an interpreter for the deaf. Risks/Benefits/Alternatives of Blood transfusion discussed with patient / legal guardian, including an opportunity to ask questions and/or decline some or all transfusion therapies. The patient / legalguardian consented to the use of all blood products, as deemed medically necessary Approval to Proceed: approved for anesthesia RIAL INSPECTOR documented in this encounter Plan of Treatment Upcoming Encounters Date Type Specialty Care Team Description 04/11/2022 Clinical Communication Admitting/Central Scheduling 04/13/2022 Appointment Laboratory Medicine Debbie Ivey M.D. [address] [place] [phone] 04/13/2022 Office Visit Oncology Walter Barnhart M.D., Ph.D. [address] [place] [phone] documented as of this encounter Procedures Procedure Name Priority Date/Time Associated Comments Diagnosis VA INJ SPINE LUMB/SAC Routine 05/09/2021 8:48 AM Results for this WO IMG MATERIAL INSPECTOR procedure are i n the results section. LDA ANE ARTERIAL LINE Routine 05/09/2021 8:45 AM Results for this INSERTION MATERIAL INSPECTOR procedure are i n the results section. VA ARTL CATH/CNULA Routine 05/09/2021 8:45 AM Res ults for this MONITOR PERC MATERIAL INSPECTOR procedure are i n the results section. LDA ANE ENDOTRACHEAL Routine 05/09/2021 8:44 AM R esults for this AIRWAY MATERIAL INSPECTOR procedure are i n the results section. documented in this encounter Results VA INJ SPINE LUMB/SAC WO IMG (05/09/2021 8:48 AM MATERIAL INSPECTOR) Narrative Abbey Kelly APRN, CRNA - 05/09 8:48 AM MATERIAL INSPECTOR Abbey Kelly APRN, CRNA ? 05/09/2021 ??9:14 [...] Sharif Dominique M.D. PROCEDURE/MINOR SURGICAL ORD ERABLES VA ARTL CATH/CNULA MONITOR PERC, LDA ANE ARTERIAL LINE INSERTION (05/09/2021 8:45 AM MATERIAL INSPECTOR) Abbey Garcia APRN, PRODUCTION STATISTICAL CLERK - 05/09 8:45 AM MATERIAL INSPECTOR Abbey Kelly APRN, PRODUCTION STATISTICAL CLERK ? 05/09/2021 ??9:13 AM Invasive Catheter Date/Time: [...] LDA ANE ENDOTRACHEAL AIRWAY (05/09/2021 8:44 AM MATERIAL INSPECTOR) Narrative Abbey Kelly APRN, CRNA - 05/09 8:44 AM MATERIAL INSPECTOR Abbey Kelly APRN, CRNA ? 05/09/2021 ??9:21 [...] 5 % injection Given 05/09/2021 2:30 PM MATERIAL INSPECTOR 250 mL intravenous, As needed, Starting on Sun05/09/21 at 0910, Anesthesia Intra-op Given 05/09/2021 2:11 PM MATERIAL INSPECTOR 250 mL Given 05/09/2021 10:31 AM MATERIAL INSPECTOR 250 mL calcium gluconate injection Given 05/09/2021 1:13 PM MATERIAL INSPECTOR 1 g intravenous, As needed, Starting on Sun05/09/21 at 1313, Anesthesia Intra-op ceFAZolin injection 2,000 mg (ANCEF) Given 05/09/2021 3:07 PM MATERIAL INSPECTOR 2 g 2,000 mg (rounded from 1,552.5 [...] Indications: Prophylaxis, surgical Given 05/09/2021 12:17 PM MATERIAL INSPECTOR 2 g Given 05/09/2021 9:18 AM MATERIAL INSPECTOR 2 g dexAMETHasone injection (DECADRON) Given 05/09/2021 9:04 AM MATERIAL INSPECTOR 8 mg intravenous, As needed, Starting on Sun05/09/21 at 0904, Anesthesia Intra-op ePHEDrine (PF) injection Given 05/09/2021 4:29 PM MATERIAL INSPECTOR 5 mg intravenous, As needed, Starting on Sun05/09/21 at 0946, Anesthesia Intra-op Given 05/09/2021 4:20 PM MATERIAL INSPECTOR 5 mg Given 05/09/2021 2:01 PM MATERIAL INSPECTOR 5 mg fentaNYL injection (SUBLIMAZE) Given 05/09/2021 1:41 PM MATERIAL INSPECTOR 50 mcg intravenous, As needed, Starting on Sun05/09/21 at 0839, Anesthesia Intra-op Given 05/09/2021 10:10 AM MATERIAL INSPECTOR 50 mcg Given 05/09/2021 10:00 AM MATERIAL INSPECTOR 50 mcg glycopyrrolate injection (ROBINUL) Given 05/09/2021 9:48 AM MATERIAL INSPECTOR 0.2 mg intravenous, As needed, Starting on Sun05/09/21 at 0948, Anesthesia Intra-op haloperidol lactate injection (HALDOL) Given 05/09/2021 1:01 PM MATERIAL INSPECTOR 1 mg intravenous, As needed, Starting on Sun05/09/21 at 1301, Anesthesia Intra-op heparin (porcine) injection 5,000 Units Given 05/09/2021 9:05 AM MATERIAL INSPECTOR 5,000 Units 5,000 Units, subcutaneous, Once, On Sun05/09/21 at 0730, For 1 dose, Intra-Op, Administer prior to induction of anesthesia. HYDROmorphone dilution injection (DILAUD ID) Given 05/09/2021 8:36 AM MATERIAL INSPECTOR 100 mcg intrathecal, As needed, Starting on Sun05/09/21 at 0836, Anesthesia Intra-op indocyanine green injection (IC-GREEN) Given 05/09/2021 3:45 PM MATERIAL INSPECTOR 2.5 mg intravenous, As needed, Starting on Sun05/09/21 at 1501, Anesthesia Intra-op Given 05/09/2021 3:01 PM MATERIAL INSPECTOR 2.5 mg lactated ringers New Bag 05/09/2021 2:08 PM MATERIAL INSPECTOR intravenous, Continuous Infusion: Per Instructions PRN, Starting on Sun05/09/21 at 0830, Anesthesia Intra-op New Bag 05/09/2021 8:30 AM MATERIAL INSPECTOR lactated ringers New Bag 05/09/2021 3:41 PM MATERIAL INSPECTOR intravenous, Continuous Infusion: Per Instructions PRN, Starting on Sun05/09/21 at 0847, Anesthesia Intra-op New Bag 05/09/2021 1:21 PM MATERIAL INSPECTOR New Bag 05/09/2021 10:45 AM MATERIAL INSPECTOR lidocaine (PF) (cardiac) injection Given 05/09/2021 8:39 AM MATERIAL INSPECTOR 100 mg intravenous, As needed, Starting on Sun05/09/21 at 0839, Anesthesia Intra-op metroNIDAZOLE in NaCl (iso-osm) IVPB 500 mg Given 05/09/2021 2:56 PM MATERIAL INSPECTOR 500 mg (FLAGYL) 500 mg, intravenous, at 200 mL/hr, Administer over 30 Minutes, Once, On Sun05/09/21 at 0730, For 1 dose, Intra-Op, Preoperatively within 1 hour prior to surgical incision, Indications: Prophylaxis, surgical Given 05/09/2021 9:07 AM MATERIAL INSPECTOR 500 mg midazolam (PF) injection (VERSED) Given 05/09/2021 8:32 AM MATERIAL INSPECTOR 2 mg intravenous, As needed, Starting on Sun05/09/21 at 0832, Anesthesia Intra-op ondansetron (PF) injection (ZOFRAN) Given 05/09/2021 4:16 PM MATERIAL INSPECTOR 4 mg intravenous, As needed, Starting on Sun05/09/21 at 1616, Anesthesia Intra-op phenylephrine injection Given 05/09/2021 4:20 PM MATERIAL INSPECTOR 100 mcg intravenous, As needed, Starting on Sun05/09/21 at 0947, Anesthesia Intra-op Given 05/09/2021 4:10 PM MATERIAL INSPECTOR 50 mcg Given 05/09/2021 4:07 PM MATERIAL INSPECTOR 50 mcg propofol 10 mg/mL infusion Rate/Dose 05/09/2021 3:44 75 mcg/kg/min 2 6.82 (DIPRIVAN) Change PM MATERIAL INSPECTOR mL/hr intravenous, Continuous Infusion: Per Instructions PRN, Starting on Sun05/09/21 at 0840, Anesthesia Intra-op Rate/Dose Change 05/09/2021 9:38 AM MATERIAL INSPECTOR 85 mcg/kg/min 30.396 mL/hr New Bag 05/09/2021 8:40 AM MATERIAL INSPECTOR 100 mcg/kg/min 35.76 mL/hr propofoL injection (DIPRIVAN) Given 05/09/2021 8:39 AM MATERIAL INSPECTOR 150 mg intravenous, As needed, Starting on Sun05/09/21 at 0839, Anesthesia Intra-op rocuronium injection (ZEMURON) Given 05/09/2021 3:36 PM MATERIAL INSPECTOR 20 mg intravenous, As needed, Starting on Sun05/09/21 at 0839, Anesthesia Intra-op Given 05/09/2021 3:03 PM MATERIAL INSPECTOR 20 mg Given 05/09/2021 2:15 PM MATERIAL INSPECTOR 20 mg sugammadex injection (BRIDION) Given 05/09/2021 4:41 PM MATERIAL INSPECTOR 150 mg intravenous, As needed, Starting on Sun05/09/21 at 1641, Anesthesia Intra-op tranexamic acid in NaCl IVPB 1,000 mg Given 05/09/2021 9:[address] 1 g (CYKLOKAPRON) 1,000 mg (1 g), intravenous, at 300 mL/hr, Administer over 20 Minutes, Once, On Sun05/09/21 at 0730, For 1 dose, Intra-Op documented in this encounter
--- OUTSIDE RECORDS SUMMARY | 2022-03-16 10:29 | XMS_ITS | Encounter Summary ---
:[address] 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 [address] [place] [address] Referral ID Status Reason Start Date Expiration Date Visits Requ ested Visits Authorized [id number] Closed 05/03/2021 05/03/2022 1 1 Scheduling Instructions 05/03/21 Dr. Castro agreed to [place] guadalupe simmons on [place] [address] Immediately after consult with Dr. Oviedo. Schedule as Biliary/Liver Ca ncer/Stricture NG WEIGHT GAUGER Reason for Visit Outpatient (Routine) - Closed Specialty Diagnoses / Procedures Referred By Contact Refer red To Contact Obstetrics and Diagnoses Personal History Of Malignant Neoplasm Of Ovary Denisha Oviedo [facility] M.D. 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 How often do you attend buddhist or 1 to 4 times per year 02/09 voodoo services? Do you belong to any clubs or Yes 02/26/2021 organizations such as buddhist groups, unions, fraternal or athletic groups, or [...] patient andcoordination of care as described above. NG WEIGHT GAUGER documented in this encounter Miscellaneous Notes Addendum Note - Phi Recio R.N. - 05/03/2021 10:45 AM ROVING WEIGHT GAUGER Addended by: PHI RECIO on: 05/04/2021 08:48 AM Modules accepted: Orders NG WEIGHT GAUGER documented in this encounter Plan of Treatment Upcoming Encounters Date Type Specialty Care Team Description 04/11/2022 Clinical Communication Admitting/Central Scheduling 04/13/2022 Appointment Laboratory Medicine Debbie Ivey M.D. [address] [place] [address] 04/13/2022 Office Visit Oncology Walter Barnhart M.D., Ph.D. [address] [place] [address] Scheduled Referrals Name Type Priority Associated Diagnoses Order [facility] General Surgery - Outpatient Referral Routine Malignant Neopla sm Expected: Biliary / liver Of Ovary Laterality 05/03, consult (clinic) Unknown (HCC) Expires: Lesion Liver 08/03/2022 documented as of this encounter Results SARS CoV-2 RNA, PCR, Varies Asymptomatic (05/08/2021 7:08 AM ROVING WEIGHT GAUGER) [facility] Method Time Signature SARS CoV-2 Swab, 05/08/2021 DTL RNA, PCR, Nasopharynx 1:23 PM ROVING WEIGHT GAUGER Source SARS CoV-2 Undetected Undetected 05/08/2021 DTL RNA, PCR 1:23 PM ROVING WEIGHT GAUGER Comment: SARS-CoV-2 RNA absent. This result does [...] Drug Administration an d is used per bread supervisor's instructions. Performance characteristics were verified by [facility] in a manner consistent with CLIA requirements. Visit the CDC website: https://www.cdc.g ov/coronavirus/ for the most recent guidelines on Coron avirus testing. Fact Sheet for Healthcare Providers: https://www.fda.gov/media/542434/downloa d Fact Sheet for Patients: https://www.fda.gov/media/119390/downloa d Specimen Anatomical Collection Method Collection Time Receive d Time (Source) Location / / Volume Laterality Varies 05/08/2021 7:08 AM 8:49 (Nasopharynx) ROVING WEIGHT GAUGER AM ROVING WEIGHT GAUGER Denisha Oviedo M.D. LAB MICROBIOLOGY - GENERAL O RDERABLES Performing Organization Address City/State/ZIP Code Phon e Number [facility] - [address] [place], [place] [address] [facility] [place] [address] [facility] [address] documented in this encounter Visit Diagnoses Diagnosis Malignant Neoplasm Of Ovary Laterality U nknown (HCC) - Primary Personal History Of Malignant Neoplasm O f Ovary Lesion Liver Preprocedural Lab Exam documented in this encounter
--- OUTSIDE RECORDS SUMMARY | 2022-03-16 10:29 | XMS_ITS | Encounter Summary ---
:1975 Author Organization [facility] Address [address] [place] [address] Care Team Providers Name Role Phone Unavailable Primary Care Provider Unavailable Reason for Visit Reason Comments patient hospitalized locally Encounter Details Date Type Department Care Team Description 04/25/2021 Clinical Department of [place], patient hospit alized Communication Oncology in vitor Yuan M.[place]ito[place], R.N. [place] [address] [address] [facility] [address] [place] [phone] Social History Tobacco Use Types Packs/Day Years [...] 1 to 4 times per year 02/09 rastafarian services? Do you belong to any clubs [...] Rees M.SDayan., R.N. - 04/25/2021 4:09 PM JITNEY DRIVER SUBJECTIVE CHIEF COMPLAINT / REASON FOR CALL patient hospitalized locally Information Discussed Spoke with Man. Constance is admitted in [place] with possible bowel obstruction/blockage from stool. Relayed that Dr. Oviedo did review imaging and there's probability she needs extensive stool clean out but that is ultimately up to local providers to manage. He was not sure if she was havingany elevated temps or not. Doctors have not rounded yet today. Advised that management of potentially infection would be again responsibility of [place] team. Since imaging and surgery pre op is scheduled with Dr. Oviedo on 05/03 we will only need a CT chest next week and will cancel the abdomen/pelvis. Man verbalizes understanding. PLAN Disposition/Recommendation: recommended continue engagement in self-management activities Information/Education: patient/caller able to teach back Caller agreeable to plan of care: yes The following references were used: nursing clinical judgement EY DRIVER Telephone Encounter - Rene Bettencourt - 04/25/2021 2:41 PM CST Do we have a valid auth to speak with caller? Man Reason for call: Constance is hospitalized with a twisted intestine, Man would like a steam bone press tender to call him Thank you, Rene [employer] Practitioner RST ONC ROGO INSTRUCTOR TAP DANCING POD 2 EY DRIVER documented in this encounter Plan of Treatment Upcoming Encounters Date Type Specialty Care Team Description 04/11/2022 Clinical Communication Admitting/Central Scheduling 04/13/2022 Appointment Laboratory Medicine Debbie Ivey M.D. [address] [place] [phone] 04/13/2022 Office Visit Oncology Walter Barnhart M.D., Ph.D. [address] [place] [phone] documented as of this encounter Visit Diagnoses Not on filedocumented in this encounter Additional Health Concerns Infection Onset Date Last Indicated Resolved Time COVID19 Pending 04/25/2021 04/25/2021 04/25/2021 4:15 AM JITNEY DRIVER documented as of this encounter
--- OUTSIDE RECORDS SUMMARY | 2022-03-16 10:29 | XMS_ITS | Encounter Summary ---
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] Procedures MT SALPINGO-OOPHORECTOMY BILAT HYST MT HEPATECTMY RESECT PARTL LOBECT MT US GUIDE INTRAOPERATIVE MT CYSTHRSCPY W INS URETERAL STNT LAPAROTOMY, TUMOR DEBULKING HYSTERECTOMY ABDOMINAL WITH BILATERAL SALPINGO-OOPHORECTOMY OMENTECTOMY POSSIBLE RESECTION SMALL INTESTINE WITH ANASTOMOSIS, PROCEED INDICATED WEDGE RESECTION LIVER INTRAOPERATIVE ULTRASOUND LIVER CYSTOSCOPY INSERTION STENT URETER Referral ID Status Reason Start Date Expiration Date Visits Requ ested Visits Authorized [id number] 1 1 Encounter Details Date Type Department Care Team Description 05/09/2021 Surgery [facility]ST [facility] OR Denisha Oviedo E, LAPAROTOMY, [address] [facility] M.D. EXPLORATORY. [place], [place] [address] [facility] [address] [place], [place] [phone] (Wo rk) Social History Tobacco Use Types [...] 02/26/2021 organizations such as hindu groups, unions, [employer] or athletic groups, or school groups? How [...] Comments Blood Pressure 102/63 05/09/2021 6:15 PM LONG DISTANCE BILLING OPERATOR Pulse 56 05/09/2021 6:15 PM LONG DISTANCE BILLING OPERATOR Temperature 36.6 ??C (97.9 ??F) 05/09/2021 6:19 PM LONG DISTANCE BILLING OPERATOR Respiratory Rate 14 05/09/2021 6:15 PM LONG DISTANCE BILLING OPERATOR Oxygen Saturation 98% 05/09/2021 6:15 PM LONG DISTANCE BILLING OPERATOR Inhaled Oxygen Concentration - - Weight 59.6 kg (131 lb 6.3 oz) 05/09/2021 7:27 AM LONG DISTANCE BILLING OPERATOR Height 167 cm (5' 5.75) 05/09/2021 7:27 AM LONG DISTANCE BILLING OPERATOR Body Mass Index 22.23 05/09/2021 7:27 AM LONG DISTANCE BILLING OPERATOR documented in this encounter Discharge Summaries Lynn [...] Report electronically signed by Sophia Ndiaye M.D. [id number] I verify that I have examined all relevant slides/materials for the specimen(s) and rendered or confirmed the diagnosis. Gross Description A. Received fresh labeled umbilical nodule is a 2.2 x 1.7 x 0.6 cm fragment of red-orosco soft tissue. There is a 0.7 x 0.6 cm nodule identified upon sectioning. All submitted for permanent sections only. Grossed by [facility]. B. Received fresh labeled falciform ligament is a 3.9 x 3.2 x 0.6 cm portion of pink-red fibrofatty tissue. Director Acute tissue submitted for permanent sections only. Grossed by [facility]. C. Received fresh labeled omentum is a 42 x 12 x 1 cm portion of omentum. There is a 0.3 x 0.2 x 0.2 cm calcified nodule. Lymph nodes are identified. Director Acute tissue submitted for permanent sections only. Grossed by SOFIE. Nader. Received fresh labeled liver wedge segment 4B/3 nodule is a 18 gram, 4.3 x 3.8 x 3.7 cm liver wedge specimen. A single 2.6 x 2.4 x 1.4 cm orosco-white mass is present 0.1 cm from the inked surgical margin. Margin is submitted perpendicularly. Director Acute tissue submitted for permanent sections only. Grossed by [facility] . E. Received fresh labeled right diaphragm is a 7.1 x 3.2 x 1.6 cm portion of red-orosco fibrous tissue. At one aspect, there is a 3.6 x 1.7 x 0.6 cm nodule. Additional smaller nodules are identified. Director Acute tissue submitted for permanent sections only. Grossed by [facility]. F. Received fresh labeled right anterior abdominal wall is a 3.8 x 2 x 0.5 cm portion of red-pink, peritonealized fibromembranous tissue. A 0.2 cm nodule is present. Director Acute tissue submitted for permanent sections only. Grossed [...] nodule. Hilar lymph nodes are not identified. Director Acute tissue submitted for permanent sections only. Grossed [...] tube has multiple adhesions and serosal implants. Director Acute tissue submitted for permanent sections only. Grossed [...] 3 x 1.6 cm of soft tissue. Director Acute tissue submitted for permanent sections only. Grossed by RAK. Gallegos Received fresh labeled portion of sigmoid colon is a 13.5 cm in length portion of colon. There are serosal tumor imp lants and adhesions. The mucosa is unremarkable. Director Acute tissue submitted for permanent sections only. Grossed [...] including a pelvic exam. If scheduled at [facility] then appointment desk will contact you [...] important to have your annual flu vaccine DISTANCE BILLING OPERATOR documented in this encounter Discharge Instructions AttachmentsThe following attachments cannot be sent through Care Everywhere. Apixaban (By mouth) (Australian)Cyclobenzaprine (By mouth) (Australian)Hydromorphone (By mouth) (Australian)documented in this encounter Medications at Time of Discharge Medication Sig Dispensed Refills Start Date End Date swqxbae-vhyv-olvpn-oreg- Take 1 tablet by 0 capryl 100 [...] The patient was evaluated and discussed with HELP DESK INTERN ONC fellow Dr. Lagos and Dr. Stone who are in agreement with the plan of care. DISTANCE BILLING OPERATOR Ruben Rod M.D. - 05/13/2021 5:40 AM [...] M.D. Please direct questions/concerns to service pagers. DISTANCE BILLING OPERATOR Ruben Rod M.D. - 05/12/2021 5:42 AM [...] Neoplasm Of Ovary Code Status: Full Code Hedis Nurse: Discussed final pathology report. She will f/u [...] M.D. Please direct questions/concerns to service pagers. DISTANCE BILLING OPERATOR Ruben Rod M.D. - 05/11/2021 6:15 AM [...] Neoplasm Of Ovary Code Status: Full Code Hedis Nurse: Follow up final pathology. She will f/u [...] M.D. Please direct questions/concerns to service pagers. DISTANCE BILLING OPERATOR Sussy Albert M.D. - 05/10/2021 10:27 PM [...] with the patient and as well as medical assistant ob gyn onc fellow classification clerk Dr. Lagos. Addendum: Chest x-ray completed and prelim read negative for pneumo; small bilateral pleural effusions and atelectasis present. Noticeable air fluid levels in stomach. Will continue with oxygen supplementation overnight and continuous pulse oximetry. Encourage IS when awake. Discussed with patient andsridharsband. Sussy Albert M.D. DISTANCE BILLING OPERATOR Harrison Zaldivar Pharm.D., R.Ph. - 05/10/2021 7:52 [...] will be needed. Harrison Zaldivar Pharm.D., R.Ph. DISTANCE BILLING OPERATOR Cami Duran M.D. - 05/10/2021 5:37 AM [...] & Screen Expiration 05/12/2021 23:59 Testing Location [place] Blood Gas with Coox, Arterial Collection Time: [...] Date/Time SARS CoV-2 RNA, PCR, Varies Asymptomatic [[id number]] Collected: 05/08/21 0708 Lab Status: Final result [...] and Drug Administration and is used per electronic news gathering editor's instructions. Performance characteristics were verified by [facility] in a manner consistent with CLIA requirements. Visit the CDC website: https://www.cdc.gov/coronavirus/ for the most recent guidelines on Coronavirus testing. Fact Sheet for Healthcare Providers: https://www.fda.gov/media/990699/download Fact Sheet for Patients: https://www.fda.gov/media/284293/download SARS Coronavirus 2, PCR Rapid, V Symptomatic [[id number]] Collected: 04/25/21 0320 Lab Status: Final result [...] at the following links: For Healthcare Providers: https://www.fda.gov/media/930449/download For Patients: https://www.fda.gov/media/431130/download SARS Coronavirus 2, Source, Rapid Swab, Nasopharynx Bacteria / Ebony Culture, Blood #1 [[id number]] Collected: 04/25/21 020 Lab Status: Final result Specimen: Blood, Peripheral Draw Updated: 04/30/21 030 Bacteria/Ebony Culture, Blood No growth after 5 day/s of incubation. Bacteria / Ebony Culture, Blood #2 [[id number]] Collected: 04/25/21 0158 Lab Status: Final result [...] concerns. Cami Duran MD Resident General Surgery [employer] [phone] pager phone [email or web address] DISTANCE BILLING OPERATOR Ruben Rod M.D. - 05/10/2021 5:09 AM [...] Neoplasm Of Ovary Code Status: Full Code Hedis Nurse: Follow up final pathology. She will f/u [...] am available if needed. Sussy Albert M.D. DISTANCE BILLING OPERATOR ZaldivarHarrison Pharm.D., R.Ph. - 05/09/2021 6:56 AM CST Images from the original note were not included. 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 Prior [...] for nausea or vomiting (unrelieved by ondansetron). vrcfalp-jrrk-vmbpz-oreg-capryl 100 mg-150 mg- 50 mg-150 mg capsule 05/02/2021 -- -- Take 1 tablet by mouth daily. Vyvanse 70 mg capsule 05/08/2021 01/24/21 -- Take 70 mg by mouth daily. DISTANCE BILLING OPERATOR documented in this encounter Nursing Notes Celeste [...] unit in a wheelchair with transport services. DISTANCE BILLING OPERATOR Celeste Goldberg R.N. - 05/09/2021 9:44 PM [...] remains free from fall/fall injury Outcome: Progressing DISTANCE BILLING OPERATOR documented in this encounter OR Notes Op Note - Wilma Castro M.D. 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 [place] was placed for less than 3 minutes and hemostasis was achieved using chromic mattress suture incorporatingGlisson's capsule above and below the bleeding area with fibrillar at base. The remainder of the parenchymal transection margin was ablated using the Aquamantys. Hemostasis was excellent. I then yielded the procedure back to Dr. Oviedo and her team. EBL for liver portion approximately 50mL Wilma Castro M.D. DISTANCE BILLING OPERATOR Op Note - Denisha Oviedo M.D. 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 Residual: 0/micro. Hedis Nurse Organs, Pelvic Colon & Peritoneum Initial: > [...] recovery in stable condition. Denisha Oviedo M.D. DISTANCE BILLING OPERATOR Op Note - Jacobo Banda M.D. - [...] 25 cm.??The stents were then externalized. A Rbiceño catheter was placed and inflated with 10cc in the balloon. ??Both externalized stents were independently secured to the Briceño catheter using 0 silk suture. The procdure was then turned over to the primary surgery team. Plan: - stents and Briceño catheter can be removed at the discretion of the primary team post operatively. Jacobo Banda MD DISTANCE BILLING OPERATOR Brief Op Note - Che Martinez M.D. [...] 6300 Crystalloids Complications None Che Martinez M.D. DISTANCE BILLING OPERATOR documented in this encounter Miscellaneous Notes Result Encounter Note - Che Martinez M.D. - 05/12/2021 4:51 PM LONG DISTANCE BILLING OPERATOR I have reviewed the final pathology report and the identified diagnosis is consistent with the patient's clinical presentation. DISTANCE BILLING OPERATOR Hospital Course - Lynn Armstrong M.D. - [...] Report electronically signed by Sophia Ndiaye M.D. [phone] I verify that I have examined all relevant slides/materials for the specimen(s) and rendered or confirmed the diagnosis. Gross Description A. Received fresh labeled umbilical nodule is a 2.2 x 1.7 x 0.6 cm fragment of red-orosco soft tissue. There is a 0.7 x 0.6 cm nodule identified upon sectioning. All submitted for permanent sections only. Grossed by [facility]. B. Received fresh labeled falciform ligament is a 3.9 x 3.2 x 0.6 cm portion of pink-red fibrofatty tissue. Director Acute tissue submitted for permanent sections only. Grossed by [facility]. C. Received fresh labeled omentum is a 42 x 12 x 1 cm portion of omentum. There is a 0.3 x 0.2 x 0.2 cm calcified nodule. Lymph nodes are identified. Director Acute tissue submitted for permanent sections only. Grossed by RAL. Doe. Received fresh labeled liver wedge segment 4B/3 nodule is a 18 gram, 4.3 x 3.8 x 3.7 cm liver wedge specimen. A single 2.6 x 2.4 x 1.4 cm orosco-white mass is present 0.1 cm from the inked surgical margin. Margin is submitted perpendicularly. Director Acute tissue submitted for permanent sections only. Grossed by Dorothy . E. Received fresh labeled right diaphragm is a 7.1 x 3.2 x 1.6 cm portion of red-orosco fibrous tissue. At one aspect, there is a 3.6 x 1.7 x 0.6 cm nodule. Additional smaller nodules are identified. Director Acute tissue submitted for permanent sections only. Grossed by F. Received fresh labeled right anterior abdominal wall is a 3.8 x 2 x 0.5 cm portion of red-pink, peritonealized fibromembranous tissue. A 0.2 cm nodule is present. Director Acute tissue submitted for permanent sections only. Grossed [...] nodule. Hilar lymph nodes are not identified. Director Acute tissue submitted for permanent sections only. Grossed [...] tube has multiple adhesions and serosal implants. Director Acute tissue submitted for permanent sections only. Grossed [...] 3 x 1.6 cm of soft tissue. Director Acute tissue submitted for permanent sections only. Grossed by RAK. Gallegos Received fresh labeled portion of sigmoid colon is a 13.5 cm in length portion of colon. There are serosal tumor imp lants and adhesions. The mucosa is unremarkable. Director Acute tissue submitted for permanent sections only. Grossed [...] including a pelvic exam. If scheduled at [facility] then appointment desk will contact you [...] important to have your annual flu vaccine DISTANCE BILLING OPERATOR documented in this encounter Plan of Treatment Upcoming Encounters Date Type Specialty Care Team Description 04/11/2022 Clinical Communication Admitting/Central Scheduling 04/13/2022 Appointment Laboratory Medicine Debbie Ivey M.D. [address] [place] [address] 04/13/2022 Office Visit Oncology Walter Barnhart M.D., Ph.D. [address] [place] [address] Scheduled Referrals Name Type Priority Associated Order [...] esults for VIEW (Fast; most ED AM LONG DISTANCE BILLING OPERATOR this procedur e patients; some are in the inpatients) results section. BASIC METABOLIC Routine 05/12/2021 12:35 Results for PANEL, S/P AM LONG DISTANCE BILLING OPERATOR this procedure are in the results section. CBC WITHOUT Routine 05/11/2021 12:15 Results for DIFFERENTIAL, B AM LONG DISTANCE BILLING OPERATOR this procedu re are in the results section. BASIC METABOLIC Routine 05/11/2021 12:15 Results for PANEL, S/P AM LONG DISTANCE BILLING OPERATOR this procedure are in the results section. DX CHEST AP OR PA RAD - Semiurgent 05/10/2021 10:41 Re sults for AND LATERAL 2 VIEWS (Fast; most ED PM LONG DISTANCE BILLING OPERATOR this p rocedure patients; some are in the inpatients) results section. POTASSIUM, S/P Timed 05/10/2021 4:42 Results fo r AM LONG DISTANCE BILLING OPERATOR this procedure are in the results section. CBC WITHOUT Routine 05/10/2021 1:19 Results for DIFFERENTIAL, B AM LONG DISTANCE BILLING OPERATOR this procedu re are in the results section. COMPREHENSIVE Routine 05/10/2021 1:19 Results for METABOLIC PANEL, S/P AM LONG DISTANCE BILLING OPERATOR this pr ocedure are in the results section. DX ABDOMEN 1 VIEW RAD - Routine 05/09/2021 5:14 Result s for (most inpatients PM LONG DISTANCE BILLING OPERATOR this proced ure and all are in the outpatients) results section. ADULT OXYGEN THERAPY Routine 05/09/2021 5:10 PM LONG DISTANCE BILLING OPERATOR PATIENT STATUS STAT 05/09/2021 3:39 Results fo r PM LONG DISTANCE BILLING OPERATOR this procedure are in the results section. SODIUM, B STAT 05/09/2021 3:39 Results for PM LONG DISTANCE BILLING OPERATOR this procedure are in the results section. ABG W/COOX STAT 05/09/2021 3:39 Results for PM LONG DISTANCE BILLING OPERATOR this procedure are in the results section. POTASSIUM, B STAT 05/09/2021 3:39 Results for PM LONG DISTANCE BILLING OPERATOR this procedure are in the results section. GLUCOSE, WHOLE BLOOD STAT 05/09/2021 3:39 Resu lts for PM LONG DISTANCE BILLING OPERATOR this procedure are in the results section. CALCIUM, IONIZED, STAT 05/09/2021 3:39 Results for S/B PM LONG DISTANCE BILLING OPERATOR this procedure are in the results section. PATIENT STATUS STAT 05/09/2021 1:01 Results fo r PM LONG DISTANCE BILLING OPERATOR this procedure are in the results section. SODIUM, B STAT 05/09/2021 1:01 Results for PM LONG DISTANCE BILLING OPERATOR this procedure are in the results section. ABG W/COOX STAT 05/09/2021 1:01 Results for PM LONG DISTANCE BILLING OPERATOR this procedure are in the results section. POTASSIUM, B STAT 05/09/2021 1:01 Results for PM LONG DISTANCE BILLING OPERATOR this procedure are in the results section. GLUCOSE, WHOLE BLOOD STAT 05/09/2021 1:01 Resu lts for PM LONG DISTANCE BILLING OPERATOR this procedure are in the results section. CALCIUM, IONIZED, STAT 05/09/2021 1:01 Results for S/B PM LONG DISTANCE BILLING OPERATOR this procedure are in the results section. SURGICAL PATHOLOGY, Routine 05/09/2021 10:04 Malignant Resu lts for [facility] AM LONG DISTANCE BILLING OPERATOR Neoplasm Of Ovary this proce dure Laterality are in the Unknown (HCC) results section. COLECTOMY LEFT WITH 05/09/2021 8:11 Malignant ANASTOMOSIS AM LONG DISTANCE BILLING OPERATOR Neoplasm Of Ovary Laterality Unknown (HCC) EXPLORATION 05/09/2021 8:11 Malignant ABDOMINAL - LYSIS AM LONG DISTANCE BILLING OPERATOR Neoplasm Of Ovary ADHESIONS Laterality Unknown (HCC) STRIPPING DIAPHRAGM 05/09/2021 8:11 Malignant AM LONG DISTANCE BILLING OPERATOR Neoplasm Of Ovary Laterality Unknown (HCC) OTHER 05/09/2021 8:11 Malignant AM LONG DISTANCE BILLING OPERATOR Neoplasm Of Ovary Laterality Unknown (HCC) SPLENECTOMY 05/09/2021 8:11 Malignant AM LONG DISTANCE BILLING OPERATOR Neoplasm Of Ovary Laterality Unknown (HCC) CYSTOSCOPY INSERTION 05/09/2021 8:11 Malignant STENT URETER AM LONG DISTANCE BILLING OPERATOR Neoplasm Of Ovary Laterality Unknown (HCC) ULTRASOUND LIVER 05/09/2021 8:11 Malignant AM LONG DISTANCE BILLING OPERATOR Neoplasm Of Ovary Laterality Unknown (HCC) WEDGE RESECTION 05/09/2021 8:11 Malignant LIVER AM LONG DISTANCE BILLING OPERATOR Neoplasm Of Ovary Laterality Unknown (HCC) OMENTECTOMY 05/09/2021 8:11 Malignant AM LONG DISTANCE BILLING OPERATOR Neoplasm Of Ovary Laterality Unknown (HCC) HYSTERECTOMY 05/09/2021 8:11 Malignant ABDOMINAL WITH AM LONG DISTANCE BILLING OPERATOR Neoplasm Of Ovary SALPINGO - Laterality OOPHORECTOMY Unknown (HCC) DEBULKING TUMOR 05/09/2021 8:11 Malignant OVARY AM LONG DISTANCE BILLING OPERATOR Neoplasm Of Ovary Laterality Unknown (HCC) LAPAROTOMY - 05/09/2021 8:11 Malignant EXPLORATORY AM LONG DISTANCE BILLING OPERATOR Neoplasm Of Ovary Laterality Unknown (HCC) TYPE AND SCREEN Routine 05/09/2021 7:29 Results f or AM LONG DISTANCE BILLING OPERATOR this procedure are in the results section. documented in this encounter Results DX Chest Portable 1 View (05/12/2021 8:50 AM LONG DISTANCE BILLING OPERATOR) Anatomical Region Laterality Modality Chest, Thoracic RST LOS, Thoracic ARZ LOS, Thoracic N/A Digital Radiography FLA LOS Specimen (Source) Anatomical Collection Method Collection Time Re ceived Time Location / / Volume Laterality 05/12/2021 8:51 AM LONG DISTANCE BILLING OPERATOR Impressions 05/12/2021 8:52 AM LONG DISTANCE BILLING OPERATOR No change since 05/10/2021, given differences of technique. Bilateral pleural effusions, greater on the right, layering posteriorly. Stable borderline cardiomegaly, also is accentu ated by technique. Atelectasis or consolidation in both bases. No pneumoth orax. Narrative 05/12/2021 8:52 AM LONG DISTANCE BILLING OPERATOR EXAM: ??DX CHEST PORTABLE 1 VIEW Procedure [...] (ABNORMAL) Basic Metabolic Panel (05/12/2021 12:35 AM LONG DISTANCE BILLING OPERATOR) P athologist Signature Potassium, S 4.7 3.6 - 5.2 05/12/2021 DTL mmol/L 1:20 AM LONG DISTANCE BILLING OPERATOR Sodium, S 140 135 - 145 05/12/2021 DTL mmol/L 1:20 AM LONG DISTANCE BILLING OPERATOR Chloride, S 105 98 - 107 05/12/2021 DTL mmol/L 1:20 AM LONG DISTANCE BILLING OPERATOR Bicarbonate, S 29 22 - 29 05/12/2021 DTL mmol/L 1:20 AM LONG DISTANCE BILLING OPERATOR Anion Gap 6 (L) 7 - 15 05/12/2021 DTL 1:20 AM LONG DISTANCE BILLING OPERATOR BUN (Blood Urea 12 6 - 21 05/12/2021 DTL Nitrogen), S mg/dL 1:20 AM LONG DISTANCE BILLING OPERATOR Creatinine 0.81 0.59 - 05/12/2021 DTL 1.04 mg/dL 1:20 AM LONG DISTANCE BILLING OPERATOR eGFR-Non 88 >=60 05/12/2021 DTL Black/ mL/min/BSA 1:20 AM LONG DISTANCE BILLING OPERATOR [place] Comment: ----ADDITIONAL INFORMATION---- Estimated GFR calculated using the 2009 CKD_EPI creatinine equation. eGFR-Black/ >90 >=60 mL/min/BSA 2020 1:20 AM LONG DISTANCE BILLING OPERATOR DTL Comment: ----ADDITIONAL INFORMATION---- Estimated GFR calculated using the 2009 CKD_EPI creatinine equation. Calcium, Total, S 8.4 (L) 8.6 - 10.0 mg/dL 05/12/2021 1:20 AM LONG DISTANCE BILLING OPERATOR DTL Glucose, S 93 70 - 140 mg/dL 05/12/2021 1:20 AM LONG DISTANCE BILLING OPERATOR D TL Specimen Anatomical Collection Method Collection Time Receive d Time (Source) Location / / Volume Laterality Blood (Blood, 05/12/2021 12:35 05/12/2021 1:04 Venous) AM LONG DISTANCE BILLING OPERATOR AM LONG DISTANCE BILLING OPERATOR Ruben Rod M.D. LAB BLOOD ADD-ON Performing Organization Address City/State/ZIP Code Phon e Number [facility] - [address] [place], [place] [address] [address] [place] [address] [facility] [address] [facility] (ABNORMAL) Basic Metabolic Panel (05/11/2021 12:15 AM LONG DISTANCE BILLING OPERATOR) P athologist Signature Potassium, S 4.8 3.6 - 5.2 05/11/2021 DTL mmol/L 1:01 AM LONG DISTANCE BILLING OPERATOR Sodium, S 140 135 - 145 05/11/2021 DTL mmol/L 1:01 AM LONG DISTANCE BILLING OPERATOR Chloride, S 103 98 - 107 05/11/2021 DTL mmol/L 1:01 AM LONG DISTANCE BILLING OPERATOR Bicarbonate, S 30 (H) 22 - 29 05/11/2021 DTL mmol/L 1:01 AM LONG DISTANCE BILLING OPERATOR Anion Gap 7 7 - 15 05/11/2021 DTL 1:01 AM LONG DISTANCE BILLING OPERATOR BUN (Blood Urea 13 6 - 21 05/11/2021 DTL Nitrogen), S mg/dL 1:01 AM LONG DISTANCE BILLING OPERATOR Creatinine 0.87 0.59 - 05/11/2021 DTL 1.04 mg/dL 1:01 AM LONG DISTANCE BILLING OPERATOR eGFR-Non 81 >=60 05/11/2021 DTL Black/ mL/min/BSA 1:01 AM LONG DISTANCE BILLING OPERATOR [place] Comment: ----ADDITIONAL INFORMATION---- Estimated GFR calculated using the 2009 CKD_EPI creatinine equation. eGFR-Black/ >90 >=60 mL/min/BSA 2020 1:01 AM LONG DISTANCE BILLING OPERATOR DTL Comment: ----ADDITIONAL INFORMATION---- Estimated GFR calculated using the 2009 CKD_EPI creatinine equation. Calcium, Total, S 8.7 8.6 - 10.0 mg/dL 05/11/2021 1:01 AM LONG DISTANCE BILLING OPERATOR DTL Glucose, S 99 70 - 140 mg/dL 05/11/2021 1:01 AM LONG DISTANCE BILLING OPERATOR D TL Specimen Anatomical Collection Method Collection Time Receive d Time (Source) Location / / Volume Laterality Blood (Blood, 05/11/2021 12:15 05/11/2021 Venous) AM LONG DISTANCE BILLING OPERATOR 12:46 AM LONG DISTANCE BILLING OPERATOR Ruben Rod M.D. LAB BLOOD ADD-ON Performing Organization Address City/State/ZIP Code Phon e Number [facility] - [address] [place], [place] [address] [place] [address] [facility] [address] [facility] (ABNORMAL) CBC without Differential (05/11/2021 12:15 AM LONG DISTANCE BILLING OPERATOR) [facility] gist Method Time Signature Hemoglobin 8.4 (L) 11.6 - 05/11/2021 DTL 15.0 g/dL 1:30 AM LONG DISTANCE BILLING OPERATOR Hematocrit 25.9 (L) 35.5 - 05/11/2021 DTL 44.9 % 1:30 AM LONG DISTANCE BILLING OPERATOR Erythrocytes 2.75 (L) 3.92 - 05/11/2021 DTL 5.13 1:30 AM LONG DISTANCE BILLING OPERATOR x10(12)/L MCV 94.2 78.2 - 05/11/2021 DTL 97.9 fL 1:30 AM LONG DISTANCE BILLING OPERATOR RBC Distrib Width 18.0 (H) 12.2 - 05/11/2021 DTL 16.1 % 1:30 AM LONG DISTANCE BILLING OPERATOR Platelet Count 281 157 - 371 05/11/2021 DTL x10(9)/L 1:30 AM LONG DISTANCE BILLING OPERATOR Leukocytes 11.9 (H) 3.4 - 9.6 05/11/2021 DTL x10(9)/L 1:30 AM LONG DISTANCE BILLING OPERATOR Specimen Anatomical Collection Method Collection Time Receive d Time (Source) Location / / Volume Laterality Blood (Blood, 05/11/2021 12:15 05/11/2021 Venous) AM LONG DISTANCE BILLING OPERATOR 12:29 AM LONG DISTANCE BILLING OPERATOR Ruben Rod M.D. LAB BLOOD ADD-ON Performing Organization Address City/State/ZIP Code Phon e Number [facility] - [address] [place], [place] [address] [place] [address] [facility] [address] DX Chest AP or PA and Lateral 2 Views (05/10/2021 10:41 PM LONG DISTANCE BILLING OPERATOR) Anatomical Region Laterality Modality Chest, Thoracic RST LOS, Thoracic ARZ LOS, Thoracic N/A Digital Radiography FLA LOS Specimen (Source) Anatomical Collection Method Collection Time Re ceived Time Location / / Volume Laterality 05/10/2021 10:42 PM LONG DISTANCE BILLING OPERATOR Impressions 05/11/2021 8:59 AM LONG DISTANCE BILLING OPERATOR Small bilateral pleural effusions. Bilateral lower lung airspace opacities. Low lung volumes. Abdominal d rain. Narrative 05/11/2021 8:59 AM LONG DISTANCE BILLING OPERATOR EXAM: ??DX CHEST AP OR PA AND [...] IMAGING PROCE DURES Potassium (05/10/2021 4:42 AM LONG DISTANCE BILLING OPERATOR) P athologist Signature Potassium, S 4.8 3.6 - 5.2 05/10/2021 DTL mmol/L 5:48 AM LONG DISTANCE BILLING OPERATOR Specimen Anatomical Collection Method Collection Time Receive d Time (Source) Location / / Volume Laterality Blood (Blood, 05/10/2021 4:42 AM 05/10/20 21 5:39 Venous) LONG DISTANCE BILLING OPERATOR AM LONG DISTANCE BILLING OPERATOR Sussy Albert M.D. LAB BLOOD ADD-ON Performing Organization Address City/State/ZIP Code Phon e Number [facility] - [address] [place], [place] [address] [place] [address] [facility] 200 [facility] (ABNORMAL) Comprehensive Metabolic Panel (05/10/2021 1:19 AM LONG DISTANCE BILLING OPERATOR) P athologist Signature Potassium, S 5.4 (H) 3.6 - 5.2 05/10/2021 DTL mmol/L 1:58 AM LONG DISTANCE BILLING OPERATOR Sodium, S 137 135 - 145 05/10/2021 DTL mmol/L 1:58 AM LONG DISTANCE BILLING OPERATOR Chloride, S 103 98 - 107 05/10/2021 DTL mmol/L 1:58 AM LONG DISTANCE BILLING OPERATOR Bicarbonate, S 22 22 - 29 05/10/2021 DTL mmol/L 1:58 AM LONG DISTANCE BILLING OPERATOR Anion Gap 12 7 - 15 05/10/2021 DTL 1:58 AM LONG DISTANCE BILLING OPERATOR BUN (Blood Urea 14 6 - 21 05/10/2021 DTL Nitrogen), S mg/dL 1:58 AM LONG DISTANCE BILLING OPERATOR Creatinine 0.76 0.59 - 05/10/2021 DTL 1.04 mg/dL 1:58 AM LONG DISTANCE BILLING OPERATOR eGFR-Non >90 >=60 05/10/2021 DTL Black/ mL/min/BSA 1:58 AM LONG DISTANCE BILLING OPERATOR [place] Comment: ----ADDITIONAL INFORMATION---- Estimated GFR calculated using the 2009 CKD_EPI creatinine equation. eGFR-Black/ >90 >=60 mL/min/BSA 2020 1:58 AM LONG DISTANCE BILLING OPERATOR DTL Comment: ----ADDITIONAL INFORMATION---- Estimated GFR calculated using the 2009 CKD_EPI creatinine equation. Calcium, Total, S 8.5 (L) 8.6 - 10.0 mg/dL 05/10/2021 1:58 AM LONG DISTANCE BILLING OPERATOR DTL Glucose, S 126 70 - 140 mg/dL 05/10/2021 1:58 AM LONG DISTANCE BILLING OPERATOR D TL Protein, Total, S 5.7 (L) 6.3 - 7.9 g/dL 05/10/2021 1:58 A M LONG DISTANCE BILLING OPERATOR DTL Albumin, S 4.2 3.5 - 5.0 g/dL 05/10/2021 1:58 AM LONG DISTANCE BILLING OPERATOR D TL Aspartate Aminotransferase 598 (H) 8 - 43 U/L 05/10/2021 1 :58 AM LONG DISTANCE BILLING OPERATOR DTL (AST), S Alkaline Phosphatase, S 49 35 - 104 U/L 05/10/2021 1: 58 AM LONG DISTANCE BILLING OPERATOR DTL Alanine Aminotransferase 297 (H) 7 - 45 U/L 05/10/2021 1:5 8 AM LONG DISTANCE BILLING OPERATOR DTL (ALT), S Bilirubin, Total, S 1.0 <=1.2 mg/dL 05/10/2021 1:58 AM LONG DISTANCE BILLING OPERATOR DTL Specimen Anatomical Collection Method Collection Time Receive d Time (Source) Location / / Volume Laterality Blood (Blood, 05/10/2021 1:19 AM 05/10/20 1:27 Venous) LONG DISTANCE BILLING OPERATOR AM LONG DISTANCE BILLING OPERATOR Che Martinez M.D. LAB BLOOD ADD-ON Performing Organization Address City/State/[facility] Code Phon e Number [facility] - [address] [place] [address] [place] [address] [facility] 200 [facility] (ABNORMAL) CBC without Differential (05/10/2021 1:19 AM LONG DISTANCE BILLING OPERATOR) [facility] gist Method Time Signature Hemoglobin 9.6 (L) 11.6 - 05/10/2021 DHPM 15.0 g/dL 1:58 AM LONG DISTANCE BILLING OPERATOR Hematocrit 29.5 (L) 35.5 - 05/10/2021 DHPM 44.9 % 1:58 AM LONG DISTANCE BILLING OPERATOR Erythrocytes 3.15 (L) 3.92 - 05/10/2021 DHPM 5.13 1:58 AM LONG DISTANCE BILLING OPERATOR x10(12)/L MCV 93.7 78.2 - 05/10/2021 DHPM 97.9 fL 1:58 AM LONG DISTANCE BILLING OPERATOR RBC Distrib Width 17.5 (H) 12.2 - 05/10/2021 DHPM 16.1 % 1:58 AM LONG DISTANCE BILLING OPERATOR Platelet Count 270 157 - 371 05/10/2021 DHPM x10(9)/L 1:58 AM LONG DISTANCE BILLING OPERATOR Leukocytes 13.5 (H) 3.4 - 9.6 05/10/2021 DHPM x10(9)/L 1:58 AM LONG DISTANCE BILLING OPERATOR Specimen Anatomical Collection Method Collection Time Receive d Time (Source) Location / / Volume Laterality Blood (Blood, 05/10/2021 1:19 AM 05/10/20 21 1:27 Venous) LONG DISTANCE BILLING OPERATOR AM LONG DISTANCE BILLING OPERATOR Che Martinez M.D. LAB BLOOD ADD-ON Performing Organization Address City/State/ZIP Code Phon e Number [facility] - [address] [place] [address] [address] [place] [address] [facility] [address] DX Abdomen 1 View (05/09/2021 5:14 PM LONG DISTANCE BILLING OPERATOR) Anatomical Region Laterality Modality Abdomen, Abdominal RST LOS, Abdominal ARZ LOS, N/A Computed Radiography Abdominal FLA LOS Specimen (Source) Anatomical Collection Method Collection Time Re ceived Time Location / / Volume Laterality 05/09/2021 5:16 PM LONG DISTANCE BILLING OPERATOR Impressions 05/09/2021 5:34 PM LONG DISTANCE BILLING OPERATOR Examination negative for postoperative purposes. Surgical changes in the pelvis. Expected postoperative pn eumoperitoneum. Grossly unremarkable imaged lung bases. Elevated right hemidi aphragm. Narrative 05/09/2021 5:34 PM LONG DISTANCE BILLING OPERATOR EXAM: ??DX ABDOMEN 1 VIEW Procedure Note Aden Blanco D.O. - 05/09/2021 EXAM: DX ABDOMEN 1 VIEW IMPRESSION: Examination negative for postoperative p urposes. Surgical changes in the pelvis. Expected postoperative pn eumoperitoneum. Grossly unremarkable imaged lung bases. Elevated right hemidi aphragm. Denisha Oviedo M.D. IMG DIAGNOSTIC IMAGING PROCE [facility] Patient Status (05/09/2021 3:39 PM LONG DISTANCE BILLING OPERATOR) P athologist Signature Temperature 36.2 37.0 deg C 05/09/2021 METH 3:40 PM LONG DISTANCE BILLING OPERATOR FIO2 0.34 0.21=AIR 05/09/2021 METH 3:40 PM LONG DISTANCE BILLING OPERATOR Specimen Anatomical Collection Method Collection Time Receive d Time (Source) Location / / Volume Laterality Blood 05/09/2021 3:39 PM 3:39 LONG DISTANCE BILLING OPERATOR PM LONG DISTANCE BILLING OPERATOR Abbey Kelly RESIDENT ADVISOR, [employer] LAB BLOOD NON ADD-ON Performing Organization Address City/State/ZIP Code Phon e Number [facility] - [address] [place] [address] [address] [place] [address] [facility] [address] (ABNORMAL) Glucose, Whole Blood (05/09/2021 3:39 PM LONG DISTANCE BILLING OPERATOR) athologist Signature Glucose 174 (H) 70 - 140 05/09/2021 METH mg/dL 3:43 PM LONG DISTANCE BILLING OPERATOR Specimen Anatomical Collection Method Collection Time Receive d Time (Source) Location / / Volume Laterality Blood (Blood, 05/09/2021 3:39 PM 05/09/20 3:39 Arterial Line) LONG DISTANCE BILLING OPERATOR PM LONG DISTANCE BILLING OPERATOR Harrison Aguilar M.D. LAB BLOOD TROPONIN Performing Organization Address City/[facility] Phon e Number [facility] [address] [place] [address] [place] [address] [facility] [address] [facility] Potassium, Blood (05/09/2021 3:39 PM LONG DISTANCE BILLING OPERATOR) athologist Signature Potassium, B 3.8 3.6 - 5.2 05/09/2021 METH mmol/L 3:43 PM LONG DISTANCE BILLING OPERATOR Specimen Anatomical Collection Method Collection Time Receive d Time (Source) Location / / Volume Laterality Blood (Blood, 05/09/2021 3:39 PM 05/09/20 3:39 Arterial Line) LONG DISTANCE BILLING OPERATOR PM LONG DISTANCE BILLING OPERATOR Harrison Aguilar M.D. LAB BLOOD NON ADD-ON Performing Organization Address City/State/ZIP Code Phon e Number [facility] [address] [place], [place] [address] [place] [address] [facility] [address] [facility] Sodium, B (05/09/2021 3:39 PM LONG DISTANCE BILLING OPERATOR) athologist Signature Sodium, B 140 135 - 145 05/09/2021 3:43 METH mmol/L PM LONG DISTANCE BILLING OPERATOR Specimen Anatomical Collection Method Collection Time Receive d Time (Source) Location / / Volume Laterality Blood (Blood, 05/09/2021 3:39 PM 05/09/20 3:39 Arterial Line) LONG DISTANCE BILLING OPERATOR PM LONG DISTANCE BILLING OPERATOR Harrison Aguilar M.D. LAB BLOOD NON ADD-ON Performing Organization Address City/State/ZIP Code Phon e Number [facility] [address] [place], [place] [address] [place] [address] [facility] 200 [facility] (ABNORMAL) Calcium, Ionized (05/09/2021 3:39 PM LONG DISTANCE BILLING OPERATOR) athologist Signature Calcium, 4.51 (L) 4.65 - 05/09/2021 METH Ionized, B 5.30 mg/dL 3:43 PM LONG DISTANCE BILLING OPERATOR Specimen Anatomical Collection Method Collection Time Receive d Time (Source) Location / / Volume Laterality Blood (Blood, 05/09/2021 3:39 PM 05/09/20 3:39 Arterial Line) LONG DISTANCE BILLING OPERATOR PM LONG DISTANCE BILLING OPERATOR Harrison Aguilar M.D. LAB BLOOD NON ADD-ON Performing Organization Address City/State/ZIP Code Phon e Number [facility] - [address] [place] [address] [place] [address] (ABNORMAL) Blood Gas with Coox, Arterial (05/09/2021 3:39 PM LONG DISTANCE BILLING OPERATOR) athologist Signature pO2 222 (H) 83 - 108 05/09/2021 METH mm Hg 3:43 PM LONG DISTANCE BILLING OPERATOR pCO2 40 32 - 45 mm 05/09/2021 METH Hg 3:43 PM LONG DISTANCE BILLING OPERATOR pH 7.40 7.35 - 05/09/2021 METH 7.45 pH 3:43 PM LONG DISTANCE BILLING OPERATOR Base Excess -1 -2 - 3 05/09/2021 METH mmol/L 3:43 PM LONG DISTANCE BILLING OPERATOR HCO3 25 22 - 26 05/09/2021 METH mmol/L 3:43 PM LONG DISTANCE BILLING OPERATOR Hemoglobin, B 8.1 (L) 11.6 - 05/09/2021 METH 15.0 g/dL 3:43 PM LONG DISTANCE BILLING OPERATOR O2Hb 98.3 (H) 94.0 - 05/09/2021 METH 98.0 % 3:43 PM LONG DISTANCE BILLING OPERATOR COHb 1.4 <3.0 % 05/09/2021 METH 3:43 PM LONG DISTANCE BILLING OPERATOR MetHb <1.0 <1.5 % 05/09/2021 METH 3:43 PM LONG DISTANCE BILLING OPERATOR CtO2 11.7 (L) 18.0 - 05/09/2021 METH 21.0 vol % 3:43 PM LONG DISTANCE BILLING OPERATOR Specimen Anatomical Collection Method Collection Time Receive d Time (Source) Location / / Volume Laterality Blood (Blood, 05/09/2021 3:39 PM 05/09/20 3:39 Arterial Line) LONG DISTANCE BILLING OPERATOR PM LONG DISTANCE BILLING OPERATOR Harrison Aguilar M.D. LAB BLOOD NON ADD-ON Performing Organization Address City/State/ZIP Code Phon e Number [facility] - [address] [place], [place] [address] [place] [address] [facility] [address] [facility] Patient Status (05/09/2021 1:01 PM LONG DISTANCE BILLING OPERATOR) P athologist Signature Temperature 35.7 37.0 deg C 05/09/2021 METH 1:01 PM LONG DISTANCE BILLING OPERATOR FIO2 0.40 0.21=AIR 05/09/2021 METH 1:01 PM LONG DISTANCE BILLING OPERATOR Specimen Anatomical Collection Method Collection Time Receive d Time (Source) Location / / Volume Laterality Blood 05/09/2021 1:01 PM 1:01 LONG DISTANCE BILLING OPERATOR PM LONG DISTANCE BILLING OPERATOR Abbey Kelly APRN, CRNA LAB BLOOD NON ADD-ON Performing Organization Address City/[facility]/ZIP Code Phon e Number [facility] - [address] [place], [place] [address] [place] [address] [facility] [address] (ABNORMAL) Glucose, Whole Blood (05/09/2021 1:01 PM LONG DISTANCE BILLING OPERATOR) P athologist Signature Glucose 185 (H) 70 - 140 05/09/2021 METH mg/dL 1:08 PM LONG DISTANCE BILLING OPERATOR Specimen Anatomical Collection Method Collection Time Receive d Time (Source) Location / / Volume Laterality Blood (Blood, 05/09/2021 1:01 PM 05/09/20 1:01 Arterial Line) LONG DISTANCE BILLING OPERATOR PM LONG DISTANCE BILLING OPERATOR Harrison Aguilar M.D. LAB BLOOD TROPONIN Performing Organization Address City/State/ZIP Code Phon e Number [facility] - [address] [place], [place] [address] [place] [address] [facility] [address] [facility] Potassium, Blood (05/09/2021 1:01 PM LONG DISTANCE BILLING OPERATOR) P athologist Signature Potassium, B 3.6 3.6 - 5.2 05/09/2021 METH mmol/L 1:08 PM LONG DISTANCE BILLING OPERATOR Specimen Anatomical Collection Method Collection Time Receive d Time (Source) Location / / Volume Laterality Blood (Blood, 05/09/2021 1:01 PM 05/09/20 1:01 Arterial Line) LONG DISTANCE BILLING OPERATOR PM LONG DISTANCE BILLING OPERATOR Harrison Aguilar M.D. LAB BLOOD NON ADD-ON Performing Organization Address City/[facility] Phon e Number [facility] - [address] Sodium, B (05/09/2021 1:01 PM LONG DISTANCE BILLING OPERATOR) athologist Signature Sodium, B 140 135 - 145 05/09/2021 1:08 METH mmol/L PM LONG DISTANCE BILLING OPERATOR Specimen Anatomical Collection Method Collection Time Receive d Time (Source) Location / / Volume Laterality Blood (Blood, 05/09/2021 1:01 PM 05/09/20 1:01 Arterial Line) LONG DISTANCE BILLING OPERATOR PM LONG DISTANCE BILLING OPERATOR Harrison Aguilar M.D. LAB BLOOD NON ADD-ON Performing Organization Address City/[facility] Phon e Number [facility] - [id number] [place] [address] 200 [facility] (ABNORMAL) Calcium, Ionized (05/09/2021 1:01 PM LONG DISTANCE BILLING OPERATOR) athologist Signature Calcium, 4.52 (L) 4.65 - 05/09/2021 METH Ionized, B 5.30 mg/dL 1:08 PM LONG DISTANCE BILLING OPERATOR Specimen Anatomical Collection Method Collection Time Receive d Time (Source) Location / / Volume Laterality Blood (Blood, 05/09/2021 1:01 PM 05/09/20 1:01 Arterial Line) LONG DISTANCE BILLING OPERATOR PM LONG DISTANCE BILLING OPERATOR Harrison Aguilar M.D. LAB BLOOD NON ADD-ON Performing Organization Address City/[facility] Phon e Number [facility] - [address] (ABNORMAL) Blood Gas with Coox, Arterial (05/09/2021 1:01 PM LONG DISTANCE BILLING OPERATOR) athologist Signature pO2 213 (H) 83 - 108 05/09/2021 METH mm Hg 1:08 PM LONG DISTANCE BILLING OPERATOR pCO2 38 32 - 45 mm 05/09/2021 METH Hg 1:08 PM LONG DISTANCE BILLING OPERATOR pH 7.41 7.35 - 05/09/2021 METH 7.45 pH 1:08 PM LONG DISTANCE BILLING OPERATOR Base Excess -1 -2 - 3 05/09/2021 METH mmol/L 1:08 PM LONG DISTANCE BILLING OPERATOR HCO3 24 22 - 26 05/09/2021 METH mmol/L 1:08 PM LONG DISTANCE BILLING OPERATOR Hemoglobin, B 9.2 (L) 11.6 - 05/09/2021 METH 15.0 g/dL 1:08 PM LONG DISTANCE BILLING OPERATOR O2Hb 99.7 (H) 94.0 - 05/09/2021 METH 98.0 % 1:08 PM LONG DISTANCE BILLING OPERATOR COHb 1.1 <3.0 % 05/09/2021 METH 1:08 PM LONG DISTANCE BILLING OPERATOR MetHb <1.0 <1.5 % 05/09/2021 METH 1:08 PM LONG DISTANCE BILLING OPERATOR CtO2 13.4 (L) 18.0 - 05/09/2021 METH 21.0 vol % 1:08 PM LONG DISTANCE BILLING OPERATOR Specimen Anatomical Collection Method Collection Time Receive d Time (Source) Location / / Volume Laterality Blood (Blood, 05/09/2021 1:01 PM 05/09/20 21 1:01 Arterial Line) LONG DISTANCE BILLING OPERATOR PM LONG DISTANCE BILLING OPERATOR Harrison Aguilar M.D. LAB BLOOD NON ADD-ON Performing Organization Address City/State/ZIP Code Phon e Number [facility] - [address] [place], [place] [address] [place] [address] [facility] [address] [facility] Surgical Pathology, Frozen Lab (05/09/2021 10:04 AM LONG DISTANCE BILLING OPERATOR) Component Value Ref Test Analysis Performed Pathologis t Range Method Time At Signature 05/11/2021 METH 2:48 PM LONG DISTANCE BILLING OPERATOR Participated in Tim Rodrigues M.D. 05/11/2021 METH the -Pathology 2:48 PM Interpretation Resident LONG DISTANCE BILLING OPERATOR Report Sophia Ndiaye M.D. [phone] 05/11/2021 MET H electronically 2:48 PM signed by LONG DISTANCE BILLING OPERATOR I verify that I have examined all relevant slides/materials for the specimen(s) and rendered or confirmed the diagnosis. Gross Description A. ??Received fresh labeled umbilical nodule is a 2.2 x 05/11/2021 METH 1.7 2:48 PM x 0.6 cm fragment of red-orosco soft tissue. ??There is a 0.7 x LONG DISTANCE BILLING OPERATOR 0.6 cm nodule identified upon sectioning. ??All submitted for permanent sections only. ??Grossed by PDH. B. ??Received fresh labeled falciform ligament is a 3.9 x 3.2 x 0.6 cm portion of pink-red fibrofatty tissue. Director Acute tissue submitted for permanent sections only. Grossed by PDH. C. ??Received fresh labeled omentum is a 42 x 12 x 1 cm portion of omentum. ??There is a 0.3 x 0.2 x 0.2 cm calcified nodule. ??Lymph nodes are identified. ??Director Acute tissu e submitted for permanent sections only. ??Grossed by RAL. Ramey ??Received fresh labeled liver wedge segment 4B/3 nodule is a 18 gram, 4.3 x 3.8 x 3.7 cm liver wedge specimen. ??A single 2.6 x 2.4 x 1.4 cm orosco-white mass is present 0.1 cm from the inked surgical margin. ??Margin is submitted perpendicularly. ??Director Acute tissue submitted for permanent sections only. ??Grossed by E. ??Received fresh labeled right diaphragm is a 7.1 x 3.2 x 1.6 cm portion of red-orosco fibrous tissue. ??At one aspect, there is a 3.6 x 1.7 x 0.6 cm nodule. ??Additional smaller nodules are identified. ??Director Acute tissue submitted for permanent sections only. ??Grossed by PDH. F. ??Received fresh labeled right anterior abdominal wall is a 3.8 x 2 x 0.5 cm portion of red-pink, peritonealized fibromembranous tissue. ??A 0.2 cm nodule is present. Director Acute tissue submitted for permanent sections only. Grossed [...] nodule. Hilar lymph nodes are not identified. ??Director Acute tissue submitted for permanent sections only. ??Grossed [...] tube has multiple adhesions and serosal implants. ??Director Acute tissue submitted for permanent sections only. ??Grossed [...] 3 x 1.6 cm of soft tissue. Director Acute tissue submitted for permanent sections only. Grossed by RAK. Gallegos ??Received fresh labeled portion of sigmoid colon is a 13.5 cm in length portion of colon. ??There are serosal tumor implants and adhesions. ??The mucosa is unremarkable. Director Acute tissue submitted for permanent sections only. Grossed by EDNA. Block Summary A Umbilical nodule 05/11/2021 METH A1 Umbilical nodule 1 2:48 PM A2 Umbilical nodule 2 LONG DISTANCE BILLING OPERATOR B Falciform ligament B1 Nodular area 1 [...] will be performed on block J2 at [facility] 3:33 PM [employer], [place], [place]. LONG DISTANCE BILLING OPERATOR Signed by James Pantoja M.D., Ph.D. 07/01/2021 3:33 PM Comment: REVISED RESULTS Interpretation FINAL DIAGNOSIS 07/01/2021 3:33 PM LONG DISTANCE BILLING OPERATOR METH J. ??Fallopian tube and ovary, right, [...] Volume Laterality Tissue 05/09/2021 10:04 (Umbilicus) AM LONG DISTANCE BILLING OPERATOR Tissue (Pelvis) 05/09/2021 10:06 AM LONG DISTANCE BILLING OPERATOR Tissue (Omentum) 05/09/2021 10:57 AM LONG DISTANCE BILLING OPERATOR Tissue (Liver) 05/09/2021 11:43 AM LONG DISTANCE BILLING OPERATOR Tissue 05/09/2021 11:59 (Diaphragm, AM LONG DISTANCE BILLING OPERATOR Right) Tissue (Abdomen) 05/09/2021 12:07 PM LONG DISTANCE BILLING OPERATOR Tissue (Pelvis, 05/09/2021 12:11 Right) PM LONG DISTANCE BILLING OPERATOR Tissue 05/09/2021 12:36 (Diaphragm, Left) PM LONG DISTANCE BILLING OPERATOR Tissue (Spleen) 05/09/2021 12:57 PM LONG DISTANCE BILLING OPERATOR Tissue (Ovary, 05/09/2021 1:22 PM Right) LONG DISTANCE BILLING OPERATOR Tissue (Uterus) 05/09/2021 3:05 PM LONG DISTANCE BILLING OPERATOR Tissue (Colon) 05/09/2021 3:10 PM LONG DISTANCE BILLING OPERATOR Narrative This result has an attachment that is no t available. Denisha Oviedo M.D. LAB SURG PATH ORDERABLES Performing Organization Address City/State/ZIP Code Phon e Number [facility] - [address] [place] [address] [address] [place] [address] [facility] [address] Type and Screen (with reflex Antibody ID) (05/09/2021 7:29 AM LONG DISTANCE BILLING OPERATOR) [facility] gist Method Time Signature ABORh B Neg Not 05/09/2021 ETRM applicable 9:21 AM LONG DISTANCE BILLING OPERATOR Antibody Negative Negative 05/09/2021 ETRM Screen 9:32 AM LONG DISTANCE BILLING OPERATOR Type & Screen 05/12/2021 05/09/2021 ETRM Expiration 23:59 9:21 AM LONG DISTANCE BILLING OPERATOR Testing [place] DEFAULT 05/09/2021 ETRM Location 8:27 AM LONG DISTANCE BILLING OPERATOR Specimen Anatomical Collection Method Collection Time Receive d Time (Source) Location / / Volume Laterality Blood (Blood, 05/09/2021 7:29 AM 05/09/20 21 8:27 Venous) LONG DISTANCE BILLING OPERATOR AM LONG DISTANCE BILLING OPERATOR Denisha Oviedo M.D. LAB BLOOD BANK TEST ORDERABL ES Performing Organization Address City/State/ZIP Code Phon e Number [facility] - [address] [place], [place] [address] [place] [address] [facility] [address] documented in [...] tablet 1,000 mg Given 05/14/2021 6:19 AM LONG DISTANCE BILLING OPERATOR 1,000 mg (TYLENOL) 1,000 mg, oral, Every 6 hours, First dose on Sun05/10/21 at 0000, not to exceed 4 grams in 24 hours. Given 05/13/2021 11:53 PM LONG DISTANCE BILLING OPERATOR 1,000 mg Given 05/13/2021 5:50 PM LONG DISTANCE BILLING OPERATOR 1,000 mg benzocaine-menthoL 15-3.6 mg per lozenge 1 Given 05/10 1:26 AM LONG DISTANCE BILLING OPERATOR 1 lozenge lozenge (CEPACOL) 1 lozenge, oral, As needed, sore throat, Starting on Sun05/09/21 at 2026 bupivacaine liposome (PF) 20 Given 05/09/2021 4:28 PM LONG DISTANCE BILLING OPERATOR 120 mL Abdominal Tissue mL in sodium chloride (PF) 0.9 % 120 mL injection As needed, Starting on Sun05/09/21 at 1628, Intra-Op calcium carbonate chewable tablet Given 05/11/2021 6:3 1 PM LONG DISTANCE BILLING OPERATOR 400 mg of calcium 400 mg of calcium (TUMS) 400 mg of calcium, oral, 3 times daily PRN, indigestion, heartburn, Starting on Sun05/09/21 at 2027, Doses listed are in mg of elemental calcium. Take with food. 500 mg calcium carbonate contains 200 mg of elemental calcium. cellulose, oxidized 2 x 4 pad Given 05/09/2021 11:42 AM LONG DISTANCE BILLING OPERATOR 1 each Other (SURGICEL) As needed, Starting on 05/09/21 at 1142, Intra-Op cyclobenzaprine tablet 5 mg (FLEXERIL) Given 05/14/2021 2:11 AM LONG DISTANCE BILLING OPERATOR 5 mg 5 mg, oral, 3 times daily PRN, muscle spasms, Starting on Misty 05/12/21 at 0744 Given 05/13/2021 8:26 PM LONG DISTANCE BILLING OPERATOR 5 mg Given 05/13/2021 2:01 PM LONG DISTANCE BILLING OPERATOR 5 mg diphenhydrAMINE capsule 25 mg (BENADRYL) Given 05/10/2021 4:31 AM LONG DISTANCE BILLING OPERATOR 25 mg 25 mg, oral, Every 6 hours PRN, itching, sleep, Starting on Sun05/10/21 at 0251 enoxaparin injection 40 mg Given 05/13/2021 2:01 PM LONG DISTANCE BILLING OPERATOR 40 mg Left Outer Thigh (LOVENOX) 40 mg, subcutaneous, Daily, First dose on Sun05/11/21 at 1400 Given 05/12/2021 2:58 PM LONG DISTANCE BILLING OPERATOR 40 mg Right Outer Thigh Given 05/11/2021 2:06 PM LONG DISTANCE BILLING OPERATOR 40 mg Right Upper Hip HYDROmorphone (PF) [...] oral pain medication. Given 05/10/2021 7:52 PM LONG DISTANCE BILLING OPERATOR 0.4 mg Given 05/10/2021 3:31 PM LONG DISTANCE BILLING OPERATOR 0.4 mg HYDROmorphone tablet 2 mg (DILAUDID) Given 05/14/2021 10:29 AM LONG DISTANCE BILLING OPERATOR 2 mg 2 mg, oral, Every 4 hours PRN, moderate pain or score 4-6 of 10, Starting on Sun05/10/21 at 1518 Given 05/14/2021 6:23 AM LONG DISTANCE BILLING OPERATOR 2 mg Given 05/12/2021 2:59 PM LONG DISTANCE BILLING OPERATOR 2 mg HYDROmorphone tablet 4 mg (DILAUDID) Given 05/14/2021 2:11 AM LONG DISTANCE BILLING OPERATOR 4 mg 4 mg, oral, Every 4 hours PRN, severe pain or score 7-10 of 10, Starting on Sun05/10/21 at 1518 Given 05/13/2021 8:26 PM LONG DISTANCE BILLING OPERATOR 4 mg Given 05/13/2021 4:19 PM LONG DISTANCE BILLING OPERATOR 4 mg ibuprofen tablet 600 mg (ADVIL,MOTRIN) Given 05/14/2021 6:19 AM LONG DISTANCE BILLING OPERATOR 600 mg 600 mg, oral, Every 6 hours, First dose on Sun05/10/21 at 1900, start 6 hours after last ketorolac dose administered Given 05/13/2021 11:54 PM LONG DISTANCE BILLING OPERATOR 600 mg Given 05/13/2021 5:50 PM LONG DISTANCE BILLING OPERATOR 600 mg lisdexamfetamine capsule 70 mg (VYVANSE) Given 05/14/2021 6:19 AM LONG DISTANCE BILLING OPERATOR 70 mg 70 mg, oral, Daily, First dose on Sun05/10/21 at 0700, See tube feeding guidelines for tube feeding administration instructions. Given 05/13/2021 6:06 AM LONG DISTANCE BILLING OPERATOR 70 mg Given 05/12/2021 6:56 AM LONG DISTANCE BILLING OPERATOR 70 mg magnesium hydroxide suspension 30 mL (MILK OF Given 8:26 PM LONG DISTANCE BILLING OPERATOR 30 mL MAGNESIA) 30 mL, oral, 2 times daily, First dose on Sun05/09/21 at 2100, Starting evening of surgery. After first bowel movement discontinue Magnesium hydroxide Given 05/13/2021 9:55 AM LONG DISTANCE BILLING OPERATOR 30 mL Given 05/12/2021 7:07 PM LONG DISTANCE BILLING OPERATOR 30 mL melatonin tablet 3 mg Given 05/11/2021 10:21 PM LONG DISTANCE BILLING OPERATOR 3 mg 3 mg, oral, Bedtime PRN, sleep, Starting on Sun05/09/21 at 7 nalbuphine injection 2.5 mg (NUBAIN) Given 05/10/2021 1:08 PM LONG DISTANCE BILLING OPERATOR 2.5 mg 2.5 mg, intravenous, Every 4 hours PRN, itching, Starting on Sun05/09/21 at 1840, For 4 doses, PACU & Post-Op Given 05/09/2021 9:31 PM LONG DISTANCE BILLING OPERATOR 2.5 mg ondansetron (PF) injection 4 mg (ZOFRAN) Given 05/11/2021 7:29 PM LONG DISTANCE BILLING OPERATOR 4 mg 4 mg, intravenous, Every 6 hours PRN, nausea, vomiting, Starting on Sun05/09/21 at 1840, Reassess for nausea or vomiting after at least 10 minutes. If nausea or vomiting persists administer next ordered antiemetic medications (order for antiemetic medication administration ondansetron then droperidol then promethazine). Given 05/10/2021 3:41 PM LONG DISTANCE BILLING OPERATOR 4 mg oxybutynin tablet 5 mg (DITROPAN) 5 mg, oral, Every 8 hours PRN, bladder spasms, Startin g on Sun05/09/21 at 2025 promethazine injection 6.25 mg (PHENERGA N) Given 05/11/2021 10:11 PM LONG DISTANCE BILLING OPERATOR 6.25 mg 6.25 mg, intravenous, Every 6 hours PRN, nausea, vomiting, Starting on Sun05/09/21 at 1840, RASS must be -2 or higher to administer. Reassess for nausea/vomiting after at least 10 minutes. If nausea or vomiting persists administer next ordered antiemetic medications (order for antiemetic medication administration ondansetron then droperidol then promethazine). sennosides tablet 17.2 mg (SENOKOT) Given 05/13/2021 10:30 PM LONG DISTANCE BILLING OPERATOR 17.2 mg 17.2 mg, oral, Daily, First dose on Sun05/13/21 at 2115 simethicone chewable tablet 80 mg (MYLIC ON) Given 05/13/2021 9:55 AM LONG DISTANCE BILLING OPERATOR 80 mg 80 mg, oral, 4 times daily PRN, flatulence, Starting on Sun05/09/21 at 2025 Given 05/13/2021 3:38 AM LONG DISTANCE BILLING OPERATOR 80 mg Given 05/11/2021 3:35 PM LONG DISTANCE BILLING OPERATOR 80 mg documented in this encounter Active and Recently Administered Medications Times are shown in LONG DISTANCE BILLING OPERATOR. Scheduled Medication Order 05/12/2021 05/13/2021 05/14/2021 acetaminophen [...] R.N.) 0853 (Not Given - Provider: Celeste madlonado R.N. - Reason: Order parameters not met) [...] 0820 (Given - P rovider: Angela Paniagua RChapincitoN.)6890 (Given - Provider: Angela Paniagua R.N.)2159 (Given [...]
--- OUTSIDE RECORDS SUMMARY | 2022-03-16 10:30 | XMS_ITS | Encounter Summary ---
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 rojelio BALDWIN, C.N.P., Neutropenia Drug Induced (HC C) [address] [facility] M.S.N. [place], [place] [address] [place] [phone] [place], [place] [phone] (Wo rk) Social History Tobacco Use Types [...] 1 to 4 times per year 02/09 rastafari services? Do you belong to any clubs [...] Appointment Laboratory Medicine Debbie Ivey M.D. 200 [place] [phone] 04/13/2022 Office Visit Oncology Walter Barnhart M.D., Ph.D. 200 [place] [phone] documented as of this encounter Visit Diagnoses [...]
--- OUTSIDE RECORDS SUMMARY | 2022-03-16 10:30 | XMS_ITS | Encounter Summary ---
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 [address] [facility] [address] [place] [phone] Referral ID Status Reason Start Date Expiration Date Visits V isits Requested Authorized [id number] Authorized 02/17/2021 02/17/2022 12 12 Encounter Details Date Type Department Care Team Description 04/07/2021 Office Visit Department of Marychuy Kapoor Malignan t Neoplasm Of Ovary Laterality Unknown (HCC) (Primary Dx); Oncology in [place] DRIER OPERATOR, C.N.P., Neutropenia Dr hannah Lorenzo (HCC) [place], [place] M.S.N. [address] [facility] [address] [place] [phone] Social History Tobacco Use Types Packs/Day Years [...] ovarian cancer Collaborating provider: Dr. Juan Cardona [phone] HISTORY OF PRESENT ILLNESS: Ms. Yang is a very pleasant 45 y.o. 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 Variant of Uncertain Significance (VUS) found in APC gene specifically named [id number] aka [id number]). 02/03/2021 Other Ultrasound with bilateral complex solid [...] Chemotherapy CARBOplatin AUC 6 / PACLitaxel ( RECEPTION ) Start Date: 02/25/2021 INTERVAL HISTORY: presents [...] Laboratory Medicine Debbie Ivey M.D. [address] [place] [phone] 04/13/2022 Office Visit Oncology Walter Barnhart M.D., Ph.D. [address] [place] [phone] documented as of this encounter Results Creatinine with Estimated GFR (04/13/2021 9:15 AM CDT) athologist Signature Creatinine 0.69 0.59 - 04/13/2021 NPRG 1.04 mg/dL 9:39 AM CDT eGFR-Black/Afric >90 >=60 04/13/2021 NPRG an Citizen Of [place] mL/min/BSA 9:39 AM CDT Comment: ----ADDITIONAL INFORMATION---- [...] Organization Address City/State/ZIP Code Phon e Number [address] [address] [facility] [place] [id number] CBC, Chemotherapy, No Alerts (04/13/2021 9:15 [...] Organization Address City/State/ZIP Code Phon e Number [address] [address] [facility] [place] [phone] [address] Bilirubin, Total (04/13/2021 9:15 AM CDT) athologist Signature Bilirubin, 0.6 <=1.2 mg/dL 04/13/2021 NPRG Total, P 9:39 AM CDT Specimen Anatomical Collection Method Collection Time Receive d Time (Source) Location / / Volume Laterality Blood (Blood, 04/13/2021 9:15 AM 04/13/20 9:17 Venous) CDT AM CDT Walter Barnhart M.D., Ph.D. LAB BLOOD ADD-ON Performing Organization Address City/State/ZIP Code Phon e Number [address] [address] [facility] [address] [place] AST (Aspartate Aminotransferase) (04/13/2021 9:15 AM [...] LAB BLOOD ADD-ON Performing Organization Address City/[facility] Phon e Number [place] [address] [address] [place], [place] [address] [place] [address] (ABNORMAL) Cancer Antigen 125 (CA 125) [...] Ph.D. LAB BLOOD ADD-ON Performing Organization Address City/State/[facility] Phon e Number [facility]- [address] [place] [address] [facility] [place] [address] [facility] [address] AST (Aspartate Aminotransferase) [...] M.S.N. LAB BLOOD ADD-ON Performing Organization Address City/State/[facility] Code Phon e Number [facility] - [address] [place], [place] [address] [address] [place] [address] [facility] 200 [facility] (ABNORMAL) CBC, Chemotherapy, No Alerts (04/07/2021 9:54 [...] Organization Address City/State/ZIP Code Phon e Number [facility] - [address] [place], [place] [address] [place] [address] [facility] [address] documented in this encounter Visit Diagnoses Diagnosis Malignant Neoplasm Of Ovary Laterality U nknown (HCC) - Primary Neutropenia Drug Induced (HCC) documented in this encounter
--- OUTSIDE RECORDS SUMMARY | 2022-03-16 10:30 | XMS_ITS | Encounter Summary ---
:1975 Author Organization [facility] Address [address] [place] [address] Care Team Providers Name Role Phone Elsewhere, Pcp Primary Care Provider Unavailable Reason for Visit Reason Comments Myriad Reclassification Encounter Details Date Type Department Care Team Description 03/03/2021 Clinical Department of Claudette Bansal Reclass ification Communication Medical Genetics Kierra Marsh, [facility] [place], [address] [place] [address] [address] [facility] [phone] Social History Tobacco Use Types Packs/Day Years [...] were not included. Reclassification report released by [facility] for the testing originally completed 03/11/21 APC [id number]: Uncertain to benign Forward results to Claudette. Telephone Encounter - Barry More - 03/16/2021 7:58 AM CDT Results received in dept pool. Forwarded to the provider for review. Telephone Encounter - Barry More - 03/15/2021 9:40 AM CDT Sent results to [facility] Telephone Encounter - Montse Zaldivar - 03/11/2021 4:26 PM CDT Testing has been completed in the Skype portal, pending results being scanned into [facility] to be sentto Clinical team for review. VUS, forward to Claudette Telephone Encounter - Barry More - 03/03/2021 9:39 AM CDT Date: 03/03/21 Lab: [facility] - SEND TO ONCOLOGY Test: BRACAnalysis with myRisk- Sample: Lab to mail a saliva kit to the pt and Mail Order has been scheduled and checked in. Provider: Claudette Corona CGC Insurance: Commercial documented in this encounter Plan of Treatment Upcoming Encounters Date Type Specialty Care Team Description 04/11/2022 Clinical Communication Admitting/Central Scheduling 04/13/2022 Appointment Laboratory Medicine Debbie Ivey M.D. [address] [place] [phone] 04/13/2022 Office Visit Oncology Walter Barnhart M.D., Ph.D. [address] [place] [phone] documented as of this encounter Visit Diagnoses Not on filedocumented in this encounter Additional Health Concerns Infection Onset Date Last Indicated Resolved Time COVID19 Pending 04/25/2021 04/25/2021 04/25/2021 4:15 AM KOSHER DIETARY SERVICE SUPERVISOR COVID19 Pending 05/08/2021 05/08/2021 05/08/2021 1:24 PM KOSHER DIETARY SERVICE SUPERVISOR documented as of this encounter Care Teams Training Development Manager Relationship Specialty Start Date End Date Elsewhere, Pcp PCP - General Internal Medicine 07/08/21 documented as of this encounter
--- OUTSIDE RECORDS SUMMARY | 2022-03-16 10:30 | XMS_ITS | Encounter Summary ---
:1975 Author Organization [facility] Address [address] [place] [address] Care Team Providers Name Role Phone Unavailable Primary Care Provider Unavailable Reason for Visit Reason Comments Intake Assessment Encounter Details Date Type Department Care Team Description 04/05/2021 Clinical Communication Department of Walter Barnhart In take Assessment Oncology in SKelly, Ph.D. [place], [facility] [address] [place], [place] [address] [place] [phone] [place], [place] [phone] (Work) [phone] Social History Tobacco Use Types Packs/Day Years [...] Laboratory Medicine Debbie Ivey M.D. [address] [place] [address] 04/13/2022 Office Visit Oncology Walter Barnhart M.D., Ph.D. [address] [place] [address] documented as of this encounter Visit Diagnoses Not on filedocumented in this encounter
--- OUTSIDE RECORDS SUMMARY | 2022-03-16 10:30 | XMS_ITS | Encounter Summary ---
:1975 Author Organization [facility] Address [address] [place] [address] Care Team Providers Name Role Phone Unavailable Primary Care Provider Unavailable Encounter Details Date Type Department Care Team Description 03/17/2021 Orders Only Department of Oncology LookerLaura, Malignant Neoplasm Of in [place], .N. Ovary Laterality [place] [address] [facility] Unknown (HCC) (Primary [address] [place], [place] Dx) [place] [phone] Social History Tobacco Use Types Packs/Day Years [...] Laboratory Medicine Debbie Ivey M.D. [address] [place] [address] 04/13/2022 Office Visit Oncology Walter Barnhart M.D., Ph.D. [address] [place] [phone] documented as of this encounter Visit Diagnoses Diagnosis Malignant Neoplasm Of Ovary Laterality U nknown (HCC) - Primary documented in this encounter
--- OUTSIDE RECORDS SUMMARY | 2022-03-16 10:30 | XMS_ITS | Encounter Summary ---
:1975 Author Organization [facility] Address 200 [place] [address] Care Team Providers Name Role Phone Unavailable Primary Care Provider Unavailable Encounter Details Date Type Department Care Team Description 03/03/2021 Hospital Encounter Department of Raymon Bonilla Neoplasm Of Ovary Laterality Unknown (HCC); Laboratory Medicine Kelly Myles Cancer Bladder Family History; and Pathology, [address] [place] [address] Cancer Pancreas Family History [facility] in [place], [place] [address] [place] [address] [place], [place] (Work) [phone] Social History Tobacco Use Types Packs/Day Years [...] Appointment Laboratory Medicine Debbie Ivey M.D. [address] [place] [phone] 04/13/2022 Office Visit Oncology Walter Barnhart M.D., Ph.D. [address] [place] [phone] documented as of this encounter Procedures Procedure [...] [facility]Risk-Sent Out Lab (03/05/2021 2:32 PM CDT) [facility] Method Time Signature BRACAnalysis SEE COMMENT [...] Organization Address City/State/ZIP Code Phon e Number [facility] [address] [facility] [place] [address] [employer] [place] [address] [employer] [address] [place] [address] documented in this encounter Visit Diagnoses Diagnosis Malignant Neoplasm Of Ovary Laterality U nknown (HCC) Cancer Bladder Family History Cancer Pancreas Family History documented in this encounter
--- OUTSIDE RECORDS SUMMARY | 2022-03-16 10:30 | XMS_ITS | Encounter Summary ---
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 [address] [facility] [address] [place] [phone] [phone] Social History Tobacco Use Types Packs/Day Years [...] Laboratory Medicine Debbie Ivey M.D. [address] [place] [phone] 04/13/2022 Office Visit Oncology Walter Barnhart M.D., Ph.D. [address] [place] [phone] documented as of this encounter Visit Diagnoses Diagnosis Malignant Neoplasm Of Ovary Laterality U nknown (HCC) - Primary Neutropenia Drug Induced (HCC) documented in this encounter
--- OUTSIDE RECORDS SUMMARY | 2022-03-16 10:30 | XMS_ITS | Encounter Summary ---
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 [address] [facility] [address] [place] [phone] Referral ID Status Reason Start Date Expiration Date Visits V isits Requested Authorized [id number] Authorized 02/17/2021 02/17/2022 12 12 Encounter Details Date Type Department Care Team Description 04/06/2021 Hospital Encounter Department of Walter Barnhart Malign ant Neoplasm Laboratory Medicine SKelly, Ph. D. Of Ovary Laterality in [address] Unknown (HCC) [place], [place] [address] [place] [phone] [place], [place] [phone] (Work) [phone] Social History Tobacco Use Types Packs/Day Years [...] Laboratory Medicine Debbie Ivey M.D. [address] [place] [phone] 04/13/2022 Office Visit Oncology Walter Barnhart M.D., Ph.D. [address] [place] [phone] documented as of this encounter Procedures Procedure [...] CDT eGFR-Black/Afric >90 >=60 04/06/2021 NPRG an [place] mL/min/BSA 9:46 AM CDT Comment: ----ADDITIONAL INFORMATION---- [...] Organization Address City/State/ZIP Code Phon e Number [facility]- [address] [place], [place] [address] [place] [address] (ABNORMAL) CBC, [...] Ph.D. LAB BLOOD ADD-ON Performing Organization Address City/[facility] Phon e Number [address] LAB NPRG [address] Bilirubin, Total (04/06/2021 9:14 AM CDT) P athologist Signature Bilirubin, 0.7 <=1.2 mg/dL 04/06/2021 NPRG Total, P 9:46 AM CDT Specimen Anatomical Collection Method Collection Time Receive d Time (Source) Location / / Volume Laterality Blood (Blood, 04/06/2021 9:14 AM 04/06/20 9:17 Venous) CDT AM CDT Walter Barnhart M.D., Ph.D. LAB BLOOD ADD-ON Performing Organization Address City/State/[facility] Phon e Number [address] LAB NPRG [address] AST (Aspartate Aminotransferase) (04/06/2021 9:14 AM [...] Organization Address City/State/ZIP Code Phon e Number [facility]- [address] [place], [place] [address] [facility] NPRG [facility] [place] [address] [facility] [address] (ABNORMAL) Cancer [...] supplements. ??If the result does not [facility] clinical observations, repeat testing after patient [...] Organization Address City/State/ZIP Code Phon e Number [facility]- [address] [place] [address] [facility] [place], [place] [id number] [place] [address] documented in this encounter Visit Diagnoses Diagnosis Malignant Neoplasm Of Ovary Laterality U nknown (HCC) documented in this encounter
--- OUTSIDE RECORDS SUMMARY | 2022-03-16 10:30 | XMS_ITS | Encounter Summary ---
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 [address] [facility] [address] [place] [phone] Referral ID Status Reason Start Date Expiration Date Visits V isits Requested Authorized [id number] Authorized 02/17/2021 02/17/2022 12 12 Encounter Details Date Type Department Care Team Description 03/15/2021 Office Visit Department of Oncology Candie Monahan [facility] Ovary Laterality [place] [address] [place] [address] Unknown (HCC) [address] [place] [phone] Social History Tobacco Use Types Packs/Day Years [...] or relatives? How often do you attend hinduism or 1 to 4 times per year 02/09 pentecostal services? Do you belong to any clubs or Yes 02/26/2021 organizations such as hinduism groups, unions, fraternal or athletic groups, or [...] Chemotherapy CARBOplatin AUC 6 / PACLitaxel ( CONCRETE FORM SETTER AND FINISHER ) Start Date: 02/25/2021 INTERVAL HISTORY: Visit [...] Laboratory Medicine Debbie Ivey M.D. [address] [place] [phone] 04/13/2022 Office Visit Oncology Walter Barnhart M.D., Ph.D. [address] [place] [address] documented as of this encounter Visit Diagnoses Diagnosis Malignant Neoplasm Of Ovary Laterality U nknown (HCC) documented in this encounter
--- OUTSIDE RECORDS SUMMARY | 2022-03-16 10:30 | XMS_ITS | Encounter Summary ---
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 [address] [place] [phone] Referral ID Status Reason Start Date Expiration Date Visits Requ ested Visits Authorized [id number] Closed 02/23/2021 02/23/2022 1 1 Encounter Details Date Type Department Care Team Description 03/02/2021 [facility]med[facility] [address] [place] [phone] Cancer Bladder Family History (Primary D x); Genetics in [place], Barry More [address] [place] [phone] Malignant Neoplasm Of Ovary Laterality U nknown (HCC); [place] Cancer Pancreas Family Histo ry [address] [place] [phone] Social History Tobacco Use Types Packs/Day Years [...] for viewing under the Media tab of [employer]. Our risk assessment is based upon medical [...] reportedly a non-smoker. Constance's maternal ancestry is Citizen Of [place]; the patient???s paternal ancestry is Citizen Of [place]. There is no reported consanguinity or Ashkenazi Mandaen ancestry. SUMMARY OF RELEVANT INVESTIGATIONS AND RISK [...] pursue the hereditary ovarian cancer panel through [employer]. Constance will be sent a saliva kit by the laboratory. The laboratory will complete insurance pre-verification for testing and will contact the patient with estimated [id number] cost information via email or text message. [...] following screening recommendations would apply for Ms. Yang and her relatives. PERSONAL SCREENING It is important for the patient to continue to follow the cancer treatment and any screening recommendations provided by her physicians based on her diagnosis of ovarian cancer. Other screening recommendations, such as those made by the [employer], do remain appropriate. These screening [...] recommendations, such as those made by the [employer], do remain appropriate. It was a pleasure to meet Constance. She is certainly welcome to contact us with any additional questions. PATIENT EDUCATION: All of the above was discussed in detail with the patient who verbalized understanding. The patient's questions were answered. Total time: 50 minutes Electronically signed by Claudette Corona M.S., [facility] at 03/03/2021 8:24 AM CDT Associated attestation - Claudette Bansal M.S., [facility] - 03/03/2021 8:24 AM CDT I supervised VIKTORIYA Edwards, PhD, genetics fellow for this case. I agree with his assessment and plan. documented in this encounter Plan of Treatment Upcoming Encounters Date Type Specialty Care Team Description 04/11/2022 Clinical Communication Admitting/Central Scheduling 04/13/2022 Appointment Laboratory Medicine Debbie Ivey M.D. [address] [place] [phone] 04/13/2022 Office Visit Oncology Walter Barnhart M.D., Ph.D. [address] [place] [address] documented as of this encounter Results BRACAnalysis with [facility] Out [facility] (03/05/2021 2:32 PM CDT) [facility] Method Time Signature BRACAnalysis SEE COMMENT 02/01/2022 MYRI with [facility] 2:46 PM CDT Comment: REVISED RESULTS Revised Report has been issued by [facility]och[facility]l [employer]. The revision has been sent to the [...] Organization Address City/State/ZIP Code Phon e Number [employer] [address] [place] [address] [employer] [address] [employer] [address] [facility] documented in this encounter Visit Diagnoses Diagnosis Cancer Bladder Family History - Primary Malignant Neoplasm Of Ovary Laterality U nknown (HCC) Cancer Pancreas Family History documented in this encounter
--- OUTSIDE RECORDS SUMMARY | 2022-03-16 10:30 | XMS_ITS | Encounter Summary ---
:1975 Author Organization [facility] Address [address] [place] [address] Care Team Providers Name Role Phone Unavailable Primary Care Provider Unavailable Reason for Visit Reason Comments Intake Assessment Encounter Details Date Type Department Care Team Description 03/11/2021 Clinical Communication Department of Candie Monahan Assessment Oncology in [facility] [address] [facility] [address] [place] [phone] [phone] Social History Tobacco Use Types Packs/Day Years [...] 1 to 4 times per year 02/09 taoist services? 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 [address] [place] [phone] 04/13/2022 Office Visit Oncology Walter Barnhart M.D., Ph.D. [address] [place] [phone] documented as of this encounter Visit Diagnoses Not on filedocumented in this encounter
--- OUTSIDE RECORDS SUMMARY | 2022-03-16 10:30 | XMS_ITS | Encounter Summary ---
:[address] 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 [address] [place] [phone] Referral ID Status Reason Start Date Expiration Date Visits V isits Requested Authorized [id number] Authorized 02/17/2021 02/17/2022 12 12 Encounter Details Date Type Department Care Team Description 02/25/2021 Infusion Department of Oncology Walter Barnhart, Malignant Neoplasm Of in [facility] rojelio Mendoza, Ph.D. Ovary Laterality [address] [facility] Unknown (HCC) (Primary [place], [place] Dx) [phone] (Wo rk) Social History Tobacco Use Types [...] Appointment Laboratory Medicine Debbie Ivey M.D. 200 [place] [phone] 04/13/2022 Office Visit Oncology Walter Barnhart M.D., Ph.D. [address] [place] [phone] documented as of this encounter Visit Diagnoses [...]
--- OUTSIDE RECORDS SUMMARY | 2022-03-16 10:30 | XMS_ITS | Encounter Summary ---
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 [address] [place] [address] Referral ID Status Reason Start Date Expiration Date Visits Requ ested Visits Authorized [id number] Closed 04/18/2021 05/18/2021 1 1 Encounter Details Date Type Department Care Team Description 02/23/2021 Orders Only Department of Oncology Walter Barnhart, Malignant Neoplasm Of in Kelly Dominguez, Ph.D. Ovary Laterality [place] [address] [facility] Unknown (HCC) (Primary [address] [place] [address] Dx) [place] [phone] [phone] Social History Tobacco Use Types Packs/Day Years [...] or slept in a retirement (including now)? Sex Assigned at Date Recorded Female 02/10/2021 8:20 AM CDT documented as of this encounter Plan of Treatment Upcoming Encounters Date Type Specialty Care Team Description 04/11/2022 Clinical Communication Admitting/Central Scheduling 04/13/2022 Appointment Laboratory Medicine eDbbie Ivey M.D. [address] [place] [phone] 04/13/2022 Office Visit Oncology Walter Barnhart M.D., Ph.D. [address] [place] [phone] documented as of this encounter Results CT Chest with IV Contrast (05/02/2021 10:52 AM CERAMIC CAPACITOR PROCESSOR) Anatomical Region Laterality Modality Chest, Thoracic RST LOS, Thoracic ARZ LOS, Thoracic N/A Computed Tomography ARZ LOS, Thoracic FLA LOS Specimen (Source) Anatomical Collection Method Collection Time Re ceived Time Location / / Volume Laterality 05/02/2021 11:10 AM CERAMIC CAPACITOR PROCESSOR Impressions 05/02/2021 11:15 AM CERAMIC CAPACITOR PROCESSOR No acute disease. Stable tiny pulmonary nodules. Narrative 05/02/2021 11:15 AM CERAMIC CAPACITOR PROCESSOR EXAM: CT CHEST WITH IV CONTRAST 3D/MIPS: [...]
--- OUTSIDE RECORDS SUMMARY | 2022-03-16 10:30 | XMS_ITS | Encounter Summary ---
:1975 Author Organization [facility] Address [address] [place] [address] Care Team Providers Name Role Phone Unavailable Primary Care Provider Unavailable Reason for Visit Reason Dottie Hwang Encounter Details Date Type Department Care Team Description 03/15/2021 Clinical Communication Department of Mamie Rees Oncology in D, CarolSChapincitoN., R.N. [place], [place] [address] [facility] [address] [place] [phone] Social History Tobacco Use Types Packs/Day Years [...] Appointment Laboratory Medicine Debbie Ivey M.D. [address] [place] [phone] 04/13/2022 Office Visit Oncology Walter Barnhart M.D., Ph.D. [address] [place] [phone] documented as of this encounter Visit Diagnoses Not on filedocumented in this encounter
--- OUTSIDE RECORDS SUMMARY | 2022-03-16 10:30 | XMS_ITS | Encounter Summary ---
:1975 Author Organization [facility] Address [address] [place] [address] Care Team Providers Name Role Phone Unavailable Primary Care Provider Unavailable Reason for Visit Reason Comments Nurse Visit Encounter Details Date Type Department Care Team Description 03/15/2021 Education Department of Oncology Mamie Rees Malignant Neoplasm Of in [place], Carol DoeSChapincitoN., R.N. Ovary Laterality [place] [address] [facility] Unknown (HCC) (Primary [address] [place], [place] Dx) [place] [address] [phone] Social History Tobacco Use Types Packs/Day Years [...] Laboratory Medicine Debbie Ivey M.D. [address] [place] [phone] 04/13/2022 Office Visit Oncology Walter Barnhart M.D., Ph.D. [address] [place] [phone] documented as of this encounter Visit Diagnoses Diagnosis Malignant Neoplasm Of Ovary Laterality U nknown (HCC) - Primary documented in this encounter
--- OUTSIDE RECORDS SUMMARY | 2022-03-16 10:30 | XMS_ITS | Encounter Summary ---
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 [address] [place] [phone] Referral ID Status Reason Start Date Expiration Date Visits V isits Requested Authorized [id number] Authorized 02/17/2021 02/17/2022 12 12 Encounter Details Date Type Department Care Team Description 03/15/2021 Infusion Department of Oncology Walter Barnhart, Malignant Neoplasm Of in [facility] rojelio Mendoza, Ph.D. Ovary Laterality [address] [facility] Unknown (HCC) (Primary [place], [place] Dx) [phone] [phone] (Wo rk) Social History Tobacco Use Types [...] 1 to 4 times per year 02/09 roman catholic services? Do you belong to any [...] Laboratory Medicine Debbie Ivey M.D. [address] [place] [address] 04/13/2022 Office Visit Oncology Walter Barnhart M.D., Ph.D. [address] [place] [phone] documented as of this encounter Visit Diagnoses [...]
--- OUTSIDE RECORDS SUMMARY | 2022-03-16 10:30 | XMS_ITS | Encounter Summary ---
:1975 Author Organization [facility] Address [address] [place] [address] Care Team Providers Name Role Phone Unavailable Primary Care Provider Unavailable Reason for Visit Reason Comments Genetic Test Results Encounter Details Date Type Department Care Team Description 03/16/2021 Documentation Department of Medical Brian More Genetic Test Results Genetics in [place], [facility] [address] [place], [place] [address] [facility] [address] [place], [place] [phone] (Work) [phone] Social History Tobacco Use Types Packs/Day Years [...] she elected to pursue the BRCAnalysis with [employer] [facility]. These results were communicated to the patient via the patient online services portal by our genetic counseling registrar assistant. 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 ?? A VUS is a change in [...] recommendations, such as those made by the [place] [employer], do remain appropriate. FOLLOW UP/RECOMMENDATIONS [...] to contact our clinic with any questions. documented in this encounter Plan of Treatment Upcoming Encounters Date Type Specialty Care Team Description 04/11/2022 Clinical Communication Admitting/Central Scheduling 04/13/2022 Appointment Laboratory Medicine Debbie Ivey M.D. [address] [place] [phone] 04/13/2022 Office Visit Oncology Walter Barnhart M.D., Ph.D. [address] [place] [address] documented as of this encounter Visit Diagnoses Not on filedocumented in this encounter
--- OUTSIDE RECORDS SUMMARY | 2022-03-16 10:30 | XMS_ITS | Encounter Summary ---
:1975 Author Organization [facility] Address [address] [place] [address] Care Team Providers Name Role Phone Unavailable Primary Care Provider Unavailable Encounter Details Date Type Department Care Team Description 02/23/2021 Clinical Communication Department of Walter Barnhart Oncology in M.D., Ph.D. [place], [place] [address] [facility] [address] [place] [phone] Social History Tobacco Use Types Packs/Day Years [...] Laboratory Medicine Debbie Ivey M.D. [address] [place] [phone] 04/13/2022 Office Visit Oncology Walter Barnhart M.D., Ph.D. [address] [place] [phone] documented as of this encounter Visit Diagnoses Not on filedocumented in this encounter
--- OUTSIDE RECORDS SUMMARY | 2022-03-16 10:30 | XMS_ITS | Encounter Summary ---
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 [address] [place] [address] [place] [phone] Referral ID Status Reason Start Date Expiration Date Visits V isits Requested Authorized [id number] Authorized 02/17/2021 02/17/2022 12 12 Encounter Details Date Type Department Care Team Description 04/13/2021 Hospital Encounter Department of Walter Barnhart Malign ant Neoplasm Of Ovary Laterality Unknown (HCC); Laboratory Medicine Kelly De La Cruz, Ph. D. Neutropenia Drug Induced (HCC) in [address] [place] [address] [place], [place] [phone] (Work) [phone] Social History Tobacco Use Types Packs/Day Years [...] 1 to 4 times per year 02/09 protestant services? 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 [address] [place] [phone] 04/13/2022 Office Visit Oncology Walter Barnhart M.D., Ph.D. [address] [place] [address] documented as of this encounter Procedures Procedure [...] CDT eGFR-Black/Afric >90 >=60 04/13/2021 NPRG an [place] Citizen mL/min/BSA 9:39 AM CDT Comment: ----ADDITIONAL INFORMATION---- [...] Address City/State/ZIP Code Phon e Number [facility]- [address] [place], [place] [address] [place] [address] LAB NPRG [place] [address] [facility] [address] CBC, Chemotherapy, [...] Ph.D. LAB BLOOD ADD-ON Performing Organization Address [facility] Phon e Number [address] LAB NPRG [address] Bilirubin, Total (04/13/2021 9:15 AM CDT) P athologist Signature Bilirubin, 0.6 <=1.2 mg/dL 04/13/2021 NPRG Total, P 9:39 AM CDT Specimen Anatomical Collection Method Collection Time Receive d Time (Source) Location / / Volume Laterality Blood (Blood, 04/13/2021 9:15 AM 04/13/20 9:17 Venous) CDT AM CDT Walter Barnhart M.D., Ph.D. LAB BLOOD ADD-ON Performing Organization Address City/[facility] Phon e Number [address] LAB NPRG [address] AST (Aspartate Aminotransferase) (04/13/2021 9:15 AM [...] Address City/State/ZIP Code Phon e Number [facility]- [address] [place], [place] [address] [place] LAB NPRG [place] [address] (ABNORMAL) Cancer [...] Address City/State/ZIP Code Phon e Number [facility]- [address] [place] [address] [facility] [address] [facility] [address] documented in this encounter Visit Diagnoses Diagnosis 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
--- OUTSIDE RECORDS SUMMARY | 2022-03-16 10:30 | XMS_ITS | Encounter Summary ---
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 [address] [facility] [address] [place] [phone] Referral ID Status Reason Start Date Expiration Date Visits V isits Requested Authorized [id number] Authorized 02/17/2021 02/17/2022 12 12 Encounter Details Date Type Department Care Team Description 03/14/2021 Hospital Encounter Department of Walter Barnhart Malign ant Neoplasm Laboratory Medicine SKelly, Ph. D. Of Ovary Laterality in [address] Unknown (HCC) [place], [place] [address] [place] [address] [place], [place] [phone] (Work) [phone] Social History Tobacco Use Types Packs/Day Years [...] Appointment Laboratory Medicine Debbie Ivey M.D. 200 [place] [address] 04/13/2022 Office Visit Oncology Walter Barnhart M.D., Ph.D. 200 [place] [address] documented as of this encounter Procedures Procedure [...] CDT eGFR-Black/Afric >90 >=60 03/14/2021 NPRG an [place] mL/min/BSA 10:10 AM CDT Comment: ----ADDITIONAL INFORMATION---- [...] LAB BLOOD ADD-ON Performing Organization Address City/[facility]/ZIP Code Phon e Number [address] [address] [address] [facility] [place] [phone] [address] CBC, Chemotherapy, No Alerts (03/14/2021 9:47 [...] BLOOD ADD-ON Performing Organization Address [facility]/ZIP Code Phon e Number [place] [address] 1 [facility] LAB NPRG [place] [phone] [address] Bilirubin, Total (03/14/2021 9:47 AM CDT) P athologist Signature Bilirubin, 0.5 <=1.2 mg/dL 03/14/2021 NPRG Total, P 10:10 AM CDT Specimen Anatomical Collection Method Collection Time Receive d Time (Source) Location / / Volume Laterality Blood (Blood, 03/14/2021 9:47 AM 03/14/20 9:51 Venous) CDT AM CDT Walter Barnhart M.D., Ph.D. LAB BLOOD ADD-ON Performing Organization Address City/[facility]/ZIP Code Phon e Number [address], [place] [address] [place] [address] AST (Aspartate Aminotransferase) (03/14/2021 9:47 AM [...] Organization Address City/State/ZIP Code Phon e Number [facility]- [address] [place] [address] 1 [place] [facility] NPRG [place] [phone] [address] (ABNORMAL) Cancer Antigen 125 ([place] 125) [...] Organization Address City/State/ZIP Code Phon e Number [facility]- [address] [place] [address] [facility] [place] [place] [address] [facility] [address] documented in this encounter Visit Diagnoses Diagnosis Malignant Neoplasm Of Ovary Laterality U nknown (HCC) documented in this encounter
--- OUTSIDE RECORDS SUMMARY | 2022-03-16 10:30 | XMS_ITS | Encounter Summary ---
:1975 Author Organization [facility] Address [address] [place] [address] Care Team Providers Name Role Phone Unavailable [...] Expiration Date Visits Requ ested Visits Authorized [id number] 1 1 Encounter Details Date Type Department Care Team Description 04/25/[address] [facility], Norma Mckay D.O. [address] [place] [address] Obstruction Intestinal (HCC) (Primary Dx ); [facility], Dat Rae M.D. [address] [place] [phone] Fever Of Unknown Origin Second Floor Latisha Quintanilla M.D. [address] [place] [phone] [address] [place] [address] Social History Tobacco Use Types [...] or relatives? How often do you attend jain or 1 to 4 times per year 02/09 jain services? Do you belong to any clubs or Yes 02/26/2021 organizations such as jain groups, unions, fraternal or athletic groups, or [...] Comments Blood Pressure 111/63 04/25/2021 8:42 AM DYE ROOM HELPER Pulse 82 04/25/2021 8:42 AM DYE ROOM HELPER Temperature 37.7 ??C (99.9 ??F) 04/25/2021 8:42 AM DYE ROOM HELPER Respiratory Rate 16 04/25/2021 8:42 AM DYE ROOM HELPER Oxygen Saturation 97% 04/25/2021 8:42 AM DYE ROOM HELPER Inhaled Oxygen Concentration - - Weight 59.5 kg (131 lb 2.8 oz) 04/25/2021 5:00 AM DYE ROOM HELPER Height 170.2 cm (5' 7.01) 04/25/2021 5:00 AM DYE ROOM HELPER Body Mass Index 20.54 04/25/2021 5:00 AM DYE ROOM HELPER documented in this encounter Discharge Summaries Latisha Quintanilla M.D. - 04/25/2021 4:54 PM CST DISCHARGE SUMMARY BRIEF OVERVIEW Hospital: [facility] Discharge Provider: Latisha Quintanilla M.D. No primary [...] Scheduled Appointments 05/02/2021 10:20 AM LAB 01 [facility] Laboratory Medicine 05/02/2021 3:[address] ROGO [...] leukocytosis. On 04/25/2021, she presented to the [facility] ED for persistent lower abdominal pain [...] Negative Bilirubin Negative pH 8.5 (A) Specific [place] 1.020 Urobilinogen 0.2 Lactate, baseline Collection Time: [...] and caregiver(s). Latisha Quintanilla M.D. Family Medicine, [address] [address] ROOM HELPER documented in this encounter Medications at Time of Discharge Medication Sig Dispensed Refills Start Date End Date pfpilbk-ozjm-fhuig-oreg- Take 1 tablet by 0 capryl 100 [...] at discharge: TBD Manasa Grissom Pharm.D., R.Ph. ROOM HELPER documented in this encounter H&P Notes Dat [...] ovarian cancer diagnosed recently. Being followed in [place] and undergoing chemotherapy. Last chemotherapy was 10 [...] and lab result. I wish patient well. ROOM HELPER documented in this encounter Nursing Notes Jaimee [...] by: Jaimee Starks R.N. 04/25/21 5:41 PM DYE ROOM HELPER ROOM HELPER Jaimee Starks R.N. - 04/25/2021 5:23 PM [...] by: Jaimee Starks R.N. 04/25/21 5:25 PM DYE ROOM HELPER ROOM HELPER Ally Smith R.N. - 04/25/2021 6:43 AM [...] by: Aurelia Smith R.N. 04/25/21 6:46 AM DYE ROOM HELPER ROOM HELPER documented in this encounter ED Notes Federica Mckay D.O. - 04/25/2021 1:38 AM CST [facility] EMERGENCY DEPARTMENT ENCOUNTER Patient Name: [...] Negative Bilirubin Negative pH 8.5 (*) Specific [place] 1.020 Urobilinogen 0.2 C-REACTIVE PROTEIN (CRP), S/P [...] low-grade fever, I did contact Oncology in [place] where she doctors, and spoke with the on-call physician Dr. Sadler regarding admitting locally verses transfer to [facility]. Dr. Sadler noted that obstructions due to [...] Federica Mckay D.O. Federica Mckay D.O. 04/25/21440 ROOM HELPER documented in this encounter Miscellaneous Notes Hospital Course - Latisha Quintanilla M.D. - 04/25/2021 4:51 PM CST Angelica Yang is a 45 year old female with ovarian cancer (on chemotherapy) and Neulasta associated leukocytosis. On 04/25/2021, she presented to the [facility] ED for persistent lower abdominal pain [...] Negative Bilirubin Negative pH 8.5 (A) Specific [place] 1.020 Urobilinogen 0.2 Lactate, baseline Collection Time: [...] SARS Coronavirus 2, Source, Rapid Swab, Nasopharynx ROOM HELPER documented in this encounter Plan of Treatment Upcoming Encounters Date Type Specialty Care Team Description 04/11/2022 Clinical Communication Admitting/Central Scheduling 04/13/2022 Appointment Laboratory Medicine Debbie Ivey M.D. [address] [place] [phone] 04/13/2022 Office Visit Oncology Walter Barnhart M.D., Ph.D. [address] [place] [phone] documented as of this encounter Procedures Procedure Name Priority Date/Time Associated Comments Diagnosis ADULT OXYGEN THERAPY Routine 04/25/2021 5:50 AM DYE ROOM HELPER SARS CORONAVIRUS 2, STAT 04/25/2021 3:20 Resul ts for PCR RAPID, V AM DYE ROOM HELPER this procedure are in the results section. CT ABDOMEN PELVIS RAD - Semiurgent 04/25/2021 2:27 Res ults for WITH IV CONTRAST (Fast; most ED AM DYE ROOM HELPER this proc edure patients; some are in the inpatients) results section. BACTERIA / EBONY STAT 04/25/2021 2:07 Result s for CULTURE, BLOOD AM DYE ROOM HELPER this procedur e are in the results section. BACTERIA / EBONY STAT 04/25/2021 1:58 Result s for CULTURE, BLOOD AM DYE ROOM HELPER this procedur e are in the results section. CBC WITH STAT 04/25/2021 1:58 Results for DIFFERENTIAL, B AM DYE ROOM HELPER this procedu re are in the results section. C-REACTIVE PROTEIN STAT 04/25/2021 1:58 Result s for (CRP), S/P AM DYE ROOM HELPER this procedure are in the results section. LACTATE, B/P STAT 04/25/2021 1:58 Results for AM DYE ROOM HELPER this procedure are in the results section. COMPREHENSIVE STAT 04/25/2021 1:58 Results for METABOLIC PANEL, S/P AM DYE ROOM HELPER this pr ocedure are in the results section. URINALYSIS WITH STAT 04/25/2021 1:38 Results f or MICROSCOPIC IF AM DYE ROOM HELPER this procedur e INDICATED, U are in the results section. documented in this encounter Results SARS Coronavirus 2, PCR Rapid, V Symptomatic (04/25/2021 3:20 AM DYE ROOM HELPER) [facility] Method Time Signature SARS CoV-2, Undetected Undetected 04/25/2021 NPRG PCR, Rapid, V 4:15 AM DYE ROOM HELPER Comment: ----ADDITIONAL INFORMATION---- This RT-PCR test was performed using the Gayle SARS-CoV-2 and Influenza A/B Reagent assay from [employer], which has received Emergency Use Authori zation(EUA) by the U.S. Food and Drug Administration . Fact sheets for this Emergency Use Autho rization (EUA) assay can be found at the following link s: For Healthcare Providers: https://www.fda.gov/media/199300/downloa d For Patients: https://www.fda.gov/media/349959/downloa d SARS Coronavirus 2, Source, Rapid Swab, Nasopharynx 04/25/2021 3:48 AM DYE ROOM HELPER NPRG Specimen Anatomical Collection Method Collection Time Receive d Time (Source) Location / / Volume Laterality Varies 04/25/2021 3:20 AM 3:48 (Nasopharynx) DYE ROOM HELPER AM DYE ROOM HELPER Federica Mckay D.O. LAB MICROBIOLOGY - GENERAL O RDERABLES Performing Organization Address City/State/ZIP Code Phon e Number [facility]- [address] [place], [place] [address] [facility] NPRG [facility] [address] Abdomen Pelvis with IV Contrast (04/25/2021 2:27 AM DYE ROOM HELPER) Anatomical Region Laterality Modality Abdomen, Pelvis, Abdominal RST LOS, Abdominal ARZ LOS, N/A Computed Tomography Abdominal FLA LOS Specimen (Source) Anatomical Collection Method Collection Time Re ceived Time Location / / Volume Laterality 04/25/2021 8:33 AM DYE ROOM HELPER Impressions 04/25/2021 8:46 AM DYE ROOM HELPER 1. Interval size decrease of cystic septated [...] cting system calculus. Narrative 04/25/2021 8:46 AM DYE ROOM HELPER EXAM: CT ABDOMEN PELVIS WITH IV CONTRAST [...] Ebony Culture, Blood #1 (04/25/2021 2:07 AM DYE ROOM HELPER) Patholo gist Method Time Signature Bacteria/[place] No growth 04/30/2021 NPRG da Culture, after 5 3:03 AM DYE ROOM HELPER Blood day/s of incubation. Specimen (Source) Anatomical Collection Method Collection Time Re ceived Time Location / / Volume Laterality Blood (Blood, 04/25/2021 2:07 04/25/2021 2:32 Peripheral Draw) AM DYE ROOM HELPER AM DYE ROOM HELPER Comment: Specimen Source Site: Blood Federica Mckay D.O. LAB MICROBIOLOGY - GENERAL O RDERABLES Performing Organization Address [facility] Phon e Number [place] [phone] [facility] NPR[facility] [place] [phone] [address] (ABNORMAL) CRP (C-Reactive Protein) (04/25/2021 1:58 AM DYE ROOM HELPER) athologist Signature C-Reactive 8.3 (H) <=8.0 mg/L 04/25/2021 NPRG Protein (CRP), 2:38 AM DYE ROOM HELPER Specimen Anatomical Collection Method Collection Time Receive d Time (Source) Location / / Volume Laterality Blood (Blood, 04/25/2021 1:58 AM 04/25/20 2:26 Venous) DYE ROOM HELPER AM DYE ROOM HELPER Federica Mckay D.O. LAB BLOOD ADD-ON Performing Organization Address [facility] Phon e Number [place] [phone] [facility] [address] (ABNORMAL) Comprehensive Metabolic Panel (04/25/2021 1:58 AM DYE ROOM HELPER) athologist Signature Potassium, P 4.3 3.6 - 5.2 04/25/2021 NPRG mmol/L 2:38 AM DYE ROOM HELPER Sodium, P 135 135 - 145 04/25/2021 NPRG mmol/L 2:38 AM DYE ROOM HELPER Chloride, P 101 98 - 107 04/25/2021 NPRG mmol/L 2:38 AM DYE ROOM HELPER Bicarbonate, P 25 22 - 29 04/25/2021 NPRG mmol/L 2:38 AM DYE ROOM HELPER Anion Gap, P 9 7 - 15 04/25/2021 NPRG 2:38 AM DYE ROOM HELPER BUN (Blood Urea 16 6 - 21 04/25/2021 NPRG Nitrogen), P mg/dL 2:38 AM DYE ROOM HELPER Creatinine 0.75 0.59 - 04/25/2021 NPRG 1.04 mg/dL 2:38 AM DYE ROOM HELPER eGFR-Black/Afric >90 >=60 04/25/2021 NPRG an Slovenian mL/min/BSA 2:38 AM DYE ROOM HELPER Comment: ----ADDITIONAL INFORMATION---- Estimated GFR calculated using the 2009 CKD_EPI creatinine equation. eGFR Non-Black/ >90 >=60 mL/min/BSA 04/25/2021 2:38 AM DYE ROOM HELPER NPRG Comment: ----ADDITIONAL INFORMATION---- Estimated GFR calculated using the 2009 CKD_EPI creatinine equation. Calcium, Total, P 9.6 8.6 - 10.0 mg/dL 04/25/2021 2:38 AM DYE ROOM HELPER NPRG Glucose, P 105 70 - 140 mg/dL 04/25/2021 2:38 AM DYE ROOM HELPER N PRG Protein, Total, P 7.4 6.3 - 7.9 g/dL 04/25/2021 2:38 A M DYE ROOM HELPER NPRG Albumin, P 4.5 3.5 - 5.0 g/dL 04/25/2021 2:38 AM DYE ROOM HELPER N PRG Aspartate Aminotransferase 37 8 - 43 U/L 04/25/2021 2 :38 AM DYE ROOM HELPER NPRG (AST), P Alkaline Phosphatase, P 116 (H) 35 - 104 U/L 04/25/2021 2: 38 AM DYE ROOM HELPER NPRG Alanine Aminotransferase 28 7 - 45 U/L 04/25/2021 2:3 8 AM DYE ROOM HELPER NPRG (ALT), P Bilirubin, Total, P 0.2 <=1.2 mg/dL 04/25/2021 2:38 AM DYE ROOM HELPER NPRG Specimen Anatomical Collection Method Collection Time Receive d Time (Source) Location / / Volume Laterality Blood (Blood, 04/25/2021 1:58 AM 04/25/20 2:26 Venous) DYE ROOM HELPER AM DYE ROOM HELPER Federica Mckay D.O. LAB BLOOD ADD-ON Performing Organization Address City/State/ZIP Code Phon e Number [facility]- [address] [place] [phone] [facility] [place] [address] (ABNORMAL) CBC with Differential, Blood (04/25/2021 1:58 AM DYE ROOM HELPER) [facility] Method Time Signature Hemoglobin 11.5 (L) 11.6 - 04/25/2021 NPRG 15.0 g/dL 2:47 AM DYE ROOM HELPER Hematocrit 35.1 (L) 35.5 - 04/25/2021 NPRG 44.9 % 2:47 AM DYE ROOM HELPER Erythrocytes 3.90 (L) 3.92 - 04/25/2021 NPRG 5.13 2:47 AM DYE ROOM HELPER x10(12)/L MCV 90.0 78.2 - 04/25/2021 NPRG 97.9 fL 2:47 AM DYE ROOM HELPER RBC Distrib Width 16.3 (H) 12.2 - 04/25/2021 NPRG 16.1 % 2:47 AM DYE ROOM HELPER Platelet Count 213 157 - 371 04/25/2021 NPRG x10(9)/L 2:47 AM DYE ROOM HELPER Leukocytes 17.0 (H) 3.4 - 9.6 04/25/2021 NPRG x10(9)/L 2:47 AM DYE ROOM HELPER Neutrophils 14.34 (H) 1.56 - 04/25/2021 NPRG 6.45 2:47 AM DYE ROOM HELPER x10(9)/L Lymphocytes 1.34 0.95 - 04/25/2021 NPRG 3.07 2:47 AM DYE ROOM HELPER x10(9)/L Monocytes 1.26 (H) 0.26 - 04/25/2021 NPRG 0.81 2:47 AM DYE ROOM HELPER x10(9)/L Eosinophils 0.05 0.03 - 04/25/2021 NPRG 0.48 2:47 AM DYE ROOM HELPER x10(9)/L Basophils 0.05 0.01 - 04/25/2021 NPRG 0.08 2:47 AM DYE ROOM HELPER x10(9)/L Specimen Anatomical Collection Method Collection Time Receive d Time (Source) Location / / Volume Laterality Blood (Blood, 04/25/2021 1:58 AM 04/25/20 2:10 Venous) DYE ROOM HELPER AM DYE ROOM HELPER Federica Mckay D.O. LAB BLOOD ADD-ON Performing Organization Address City/State/ZIP Code Phon e Number [address] [phone] [facility] [place] [phone] [address] Lactate, baseline (04/25/2021 1:58 AM DYE ROOM HELPER) athologist Signature Lactate, P 0.8 0.5 - 2.2 04/25/2021 NPRG mmol/L 2:36 AM DYE ROOM HELPER Specimen Anatomical Collection Method Collection Time Receive d Time (Source) Location / / Volume Laterality Blood (Blood, 04/25/2021 1:58 AM 04/25/20 2:26 Venous) DYE ROOM HELPER AM DYE ROOM HELPER Federica Mckay D.O. LAB BLOOD NON ADD-ON Performing Organization Address City/[facility] Phon e Number [place] [phone] [facility] [place] [phone] [address] Bacteria / Ebony Culture, Blood #2 (04/25/2021 1:58 AM DYE ROOM HELPER) [facility] gist Method Time Signature Bacteria/[place] No growth 04/30/2021 NPRG da Culture, after 5 3:03 AM DYE ROOM HELPER Blood day/s of incubation. Specimen (Source) Anatomical Collection Method Collection Time Re ceived Time Location / / Volume Laterality Blood (Blood, 04/25/2021 1:58 04/25/2021 2:13 Peripheral Draw) AM DYE ROOM HELPER AM DYE ROOM HELPER Comment: Specimen Source Site: Blood Federica Mckay D.O. LAB MICROBIOLOGY - GENERAL O RDERABLES Performing Organization Address City/[facility]/ZIP Code Phon e Number [place] [phone] [facility] [address] (ABNORMAL) Urinalysis with Microscopic if Indicated (04/25/2021 1:38 AM DYE ROOM HELPER) athologist Signature Source Urine, 04/25/2021 NPRG Urine, Clean 2:11 AM DYE ROOM HELPER Catch Clarity Clear Clear 04/25/2021 NPRG 2:29 AM DYE ROOM HELPER Color Yellow 04/25/2021 NPRG 2:29 AM DYE ROOM HELPER Comment: ----REFERENCE VALUE---- Colorless Yellow Chandrika Blood Negative Negative 04/25/2021 2:29 AM DYE ROOM HELPER NPRG Nitrite Negative Negative 04/25/2021 2:29 AM DYE ROOM HELPER NPRG Leukocyte Esterase Negative Negative 04/25/2021 2:29 AM CS T NPRG Protein Negative mg/dL 04/25/2021 2:29 AM DYE ROOM HELPER NPRG Comment: ----REFERENCE VALUE---- Negative Trace Glucose Negative Negative mg/dL 04/25/2021 2:29 AM DYE ROOM HELPER PROFILE SHAPER OPERATOR RG Ketones, QI(U) Negative Negative mg/dL 04/25/2021 2:[address] NPRG Bilirubin Negative Negative 04/25/2021 2:29 AM DYE ROOM HELPER NPRG pH 8.5 (A) 5.0 - 8.0 04/25/2021 2:29 AM DYE ROOM HELPER NPRG Specific [place] 1.020 1.001 - 1.035 04/25/2021 2:29 AM DYE ROOM HELPER NPRG Urobilinogen 0.2 0.2 - 1.0 mg/dL 04/25/2021 2:29 AM CS T NPRG Specimen Anatomical Collection Method Collection Time Receive d Time (Source) Location / / Volume Laterality Urine (Urine, 04/25/2021 1:38 AM 04/25/20 2:11 Clean Catch) DYE ROOM HELPER AM DYE ROOM HELPER Federica Mckay D.O. LAB URINE ORDERABLES Performing Organization Address City/State/ZIP Code Phon e Number [facility]- [facility] [address] [place], [place] [address] [place] [address] [place] [address] [place] [address] [place] documented in this encounter Visit Diagnoses Diagnosis Obstruction Intestinal (HCC) - Primary Fever Of Unknown Origin documented in this encounter Admitting Diagnoses Diagnosis Obstruction Intestinal (HCC) documented in this encounter Administered Medications Inactive Administered Medications - up to 3 most recent administrations Medication Order MAR Action Action Date Dose Rate Site acetaminophen tablet 1,000 mg Given 04/25/2021 2:29 AM DYE ROOM HELPER 1,000 mg (TYLENOL) 1,000 mg, oral, Once, On 04/25/21 at 0229, For 1 dose acetaminophen tablet 1,000 mg (TYLENOL) Given 04/25/2021 9:15 AM DYE ROOM HELPER 1,000 mg 1,000 mg, oral, Once, On Sun04/25/21 at 0600, For 1 dose ascorbic acid (vitamin C) tablet 1,000 mg Given 04/25/2021 9 :15 AM DYE ROOM HELPER 1,000 mg (VITAMIN C) 1,000 mg, oral, Daily, First dose on Sun04/25/21 at 0900 ibuprofen tablet 200 mg (ADVIL,MOTRIN) Given 04/25/2021 9:15 AM DYE ROOM HELPER 200 mg 200 mg, oral, Every 4 hours PRN, moderate pain or score 4-6 of 10, Starting on Sun04/25/21 at 0542, Take with food or milk if GI disturbances occur with use. iohexoL 300 mg iodine/mL solution 1-200 mL Given 04/25/2021 2:28 AM DYE ROOM HELPER 100 mL (OMNIPAQUE) 1-200 mL, intravenous, Once in imaging, contrast, Starting on Sun04/25/21 at 0228, For 1 dose, Dose per Radiant Medication Guidelines NaCl 0.9% infusion New Bag 04/25/2021 2:34 PM DYE ROOM HELPER 100 mL/hr 100 mL/hr 100 mL/hr, intravenous, Continuous, Starting on Sun04/25/21 at 0410 New Bag 04/25/2021 4:23 AM DYE ROOM HELPER 100 mL/hr 100 mL/hr sodium chloride 0.9 % flush 100 mL Given 04/25/2021 2:28 AM DYE ROOM HELPER 100 mL 100 mL, intravenous, Once in imaging, line care, Starting on Sun04/25/21 at 0228, For 1 dose sodium chloride 0.9 % injection 2-10 mL Given 04/25/2021 1:59 AM DYE ROOM HELPER 10 mL 2-10 mL, intravenous, As needed, line care, Starting on Sun04/25/21 at 0146 documented in this encounter Active and Recently Administered Medications Times are shown in DYE ROOM HELPER. Scheduled Medication Order 04/23/2021 04/24/2021 04/25/2021 acetaminophen [...] mL 0919 (Not Given - Provider: Sri Faye R.N. - Reason: Other - Comment: fluids [...] mg of calcium, oral, Every 2 hour SD N, heartburn, indigestion, Starting on Sun04/25/21 at [...] - Provider: Dejuan Walsh(R)(CT), R.TChapincito(R) - Comment: [id number]) 1-200 mL, intravenous, Once in imaging, contrast, [...] Maximo.TChapincito(R)) 100 mL, intravenous, Once in imaging, [facility], Starting on Sun04/25/21 at 0228, For 1 [...] COVID19 Pending 04/25/2021 04/25/2021 04/25/2021 4:15 AM DYE ROOM HELPER documented as of this encounter
--- OUTSIDE RECORDS SUMMARY | 2022-03-16 10:31 | XMS_ITS | Encounter Summary ---
:1975 Author Organization [facility] Address [address] [place] [id number] Care Team Providers Name Role Phone Unavailable Primary Care Provider Unavailable Reason for Referral Specialty Diagnoses / Procedures Referred By Contact Refer red To Contact RST [facility] [address] [place] [phone] Referral ID Status Reason Start Date Expiration Date Visits Requ ested Visits Authorized Reason for Visit Reason Comments Nurse teach Encounter Details Date Type Department Care Team Description 02/18/2021 Clinical Communication Department of Mamie Rees Nurse teach Oncology in D, M.S.N., R.N. [address] [place] [phone] Social History Tobacco Use Types Packs/Day Years [...] Laboratory Medicine Debbie Ivey M.D. [address] [place] [address] 04/13/2022 Office Visit Oncology Walter Barnhart M.D., Ph.D. 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
--- OUTSIDE RECORDS SUMMARY | 2022-03-16 10:31 | XMS_ITS | Encounter Summary ---
:1975 Author Organization [facility] Address [address] [place] [address] Care Team Providers Name Role Phone Unavailable Primary Care Provider Unavailable Encounter Details Date Type Department Care Team Description 02/17/2021 Clinical Communication Department of Amber Nguyen , Obstetrics and [facility] in [address] [place] [address] [place] [phone] [place], [place] [phone] (Work) [phone] Social History Tobacco Use Types Packs/Day Years [...] Appointment Laboratory Medicine Debbie Ivey M.D. [address] [place] [phone] 04/13/2022 Office Visit Oncology Walter Barnhart M.D., Ph.D. [address] [place] [phone] documented as of this encounter Visit Diagnoses Not on filedocumented in this encounter
--- OUTSIDE RECORDS SUMMARY | 2022-03-16 10:31 | XMS_ITS | Encounter Summary ---
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 [place] Procedures CT Abdomen Pelvis with IV Contrast CT Abdomen Pelvis without and with IV Contrast MA CT ABD&PELVIS WO/W CNTRST Ph.D. 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 [place] Procedures CT Chest with IV Contrast MA CT THORAX W CNTRST MA 3D WO IND WORKSTATION Ph.D. [address] [place] [address] [phone] Referral ID Status Reason Start Date Expiration Date Visits Requ ested Visits Authorized [id number] Closed 02/17/2021 03/19/2021 1 1 Outpatient (Routine) Specialty Diagnoses / Procedures Referred By Contact Vandana jones To Contact Oncology Walter Barnhart M. D., Ph.D. [address] [phone] Referral ID Status Reason Start Date Expiration Date Visits Requ ested Visits Authorized Outpatient (Routine) Specialty Diagnoses / Procedures Referred By Contact Refer red To Contact Oncology Walter Barnhart M. D., Ph.D. [address] [phone] Referral ID Status Reason Start Date Expiration Date Visits Requ ested Visits Authorized Specialty Diagnoses / Procedures Referred By Contact Refer red To Contact Walter Barnhart M. D., Ph.D. 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 Neutropenia Drug Induced (HCC) [address] [phone] Social History Tobacco Use Types Packs/Day Years [...] or relatives? How often do you attend holiness or 1 to 4 times per year 02/09 yazidism services? Do you belong to any clubs or Yes 02/26/2021 organizations such as holiness groups, unions, fraternal or athletic groups, or [...] or slept in a long-term (including now)? Sex Assigned at Date Recorded Female 02/10/2021 8:20 AM CDT documented as of this encounter Plan of Treatment Upcoming Encounters Date Type Specialty Care Team Description 04/11/2022 Clinical Communication Admitting/Central Scheduling 04/13/2022 Appointment Laboratory Medicine Debbie Ivey M.D. [address] [place] [phone] 04/13/2022 Office Visit Oncology Walter Barnhart M.D., Ph.D. [address] [place] [phone] Scheduled Referrals Name Type Priority Associated Diagnoses Order S chedule Oncology - Chemo Outpatient Referral Routine Malignant Neoplas m Expected: education visit Of Ovary Laterality 02/23, (clinic) Unknown (HCC) Expires: 02/23/2022 Oncology office Outpatient Referral Routine Malignant Neoplasm Expected: visit (clinic) Of Ovary Laterality 2020, General; MOBILE APPLICATION TESTER Unknown (HCC) Expires: 03/17/2022 Oncology office Outpatient Referral Routine Malignant Neoplasm Expected: visit (clinic) Of Ovary Laterality 2020, General; MOBILE APPLICATION TESTER Unknown (HCC) Expires: 04/07/2022 documented as of this encounter Results Creatinine with Estimated GFR (05/02/2021 10:22 AM INDUSTRIAL HYGIENIST) P athologist Signature Creatinine 0.64 0.59 - 05/02/2021 NPRG 1.04 mg/dL 10:47 AM INDUSTRIAL HYGIENIST eGFR-Black/Afric >90 >=60 05/02/2021 NPRG an Icelandic mL/min/BSA 10:47 AM INDUSTRIAL HYGIENIST Comment: ----ADDITIONAL INFORMATION---- Estimated GFR calculated using the 2009 CKD_EPI creatinine equation. eGFR Non-Black/ >90 >=60 mL/min/BSA 05/02/2021 10:47 AM INDUSTRIAL HYGIENIST NPRG Comment: ----ADDITIONAL INFORMATION---- Estimated GFR calculated using the 2009 CKD_EPI creatinine equation. Specimen Anatomical Collection Method Collection Time Receive d Time (Source) Location / / Volume Laterality Blood (Blood, 05/02/2021 10:22 05/02/2021 Venous) AM INDUSTRIAL HYGIENIST 10:27 AM INDUSTRIAL HYGIENIST Walter Barnhart M.D., Ph.D. LAB BLOOD ADD-ON Performing Organization Address City/[facility] Phon e Number [place] [address] 1 [facility] NPRG [address] (ABNORMAL) CBC, Chemotherapy, No Alerts (05/02/2021 10:22 AM INDUSTRIAL HYGIENIST) Analysis Performed At Patho logist Time Signature Hemoglobin 11.2 (L) 11.6 - 05/02/2021 NPRG 15.0 g/dL 10:32 AM INDUSTRIAL HYGIENIST Platelet Count 233 157 - 371 05/02/2021 NPRG x10(9)/L 10:32 AM INDUSTRIAL HYGIENIST Leukocytes 4.1 3.4 - 9.6 05/02/2021 NPRG x10(9)/L 10:32 AM INDUSTRIAL HYGIENIST Neutrophils 2.59 1.56 - 05/02/2021 NPRG 6.45 10:32 AM INDUSTRIAL HYGIENIST x10(9)/L Specimen Anatomical Collection Method Collection Time Receive d Time (Source) Location / / Volume Laterality Blood (Blood, 05/02/2021 10:22 05/02/2021 Venous) AM INDUSTRIAL HYGIENIST 10:27 AM INDUSTRIAL HYGIENIST Walter Barnhart M.D., Ph.D. LAB BLOOD ADD-ON Performing Organization Address City/State/[facility] Phon e Number [place] [address] [place]G [address] Bilirubin, Total (05/02/2021 10:22 AM INDUSTRIAL HYGIENIST) athologist Signature Bilirubin, 0.4 <=1.2 mg/dL 05/02/2021 NPRG Total, P 10:47 AM INDUSTRIAL HYGIENIST Specimen Anatomical Collection Method Collection Time Receive d Time (Source) Location / / Volume Laterality Blood (Blood, 05/02/2021 10:22 05/02/2021 Venous) AM INDUSTRIAL HYGIENIST 10:27 AM INDUSTRIAL HYGIENIST Walter Barnhart M.D., Ph.D. LAB BLOOD ADD-ON Performing Organization Address City/[facility] Phon e Number [address] LAB NPRG [address] AST (Aspartate Aminotransferase) (05/02/2021 10:22 AM INDUSTRIAL HYGIENIST) [facility] gist Method Time Signature Aspartate 23 8 - 43 05/02/2021 NPRG Aminotransferase U/L 10:47 AM INDUSTRIAL HYGIENIST (AST), Specimen Anatomical Collection Method Collection Time Receive d Time (Source) Location / / Volume Laterality Blood (Blood, 05/02/2021 10:22 05/02/2021 Venous) AM INDUSTRIAL HYGIENIST 10:27 AM INDUSTRIAL HYGIENIST Walter Barnhart M.D., Ph.D. LAB BLOOD ADD-ON Performing Organization Address City/[facility] Phon e Number [address] LAB NPRG [place] [phone] [address] (ABNORMAL) Cancer Antigen 125 (CA 125) (05/02/2021 10:22 AM INDUSTRIAL HYGIENIST) athologist Signature Cancer Ag 125 65 (H) <46 U/mL 05/02/2021 AUST (CA 125), S 10:36 PM INDUSTRIAL HYGIENIST Comment: Biotin has been identified by the [facility] as a potential interfering substance. ??Higher concentr ations of biotin may be found in multivitamins, hair/nail supple ments, and workout supplements. ??If the result does not [facility] clinical observations, repeat testing after patient [...] Blood (Blood, 05/02/2021 10:22 05/02/2021 Venous) AM INDUSTRIAL HYGIENIST 10:04 PM INDUSTRIAL HYGIENIST Walter Barnhart M.D., Ph.D. LAB BLOOD ADD-ON Performing Organization Address City/State/[facility] Code Phon e Number [facility]- [address] [place] [address] [facility] [place] [address] [facility] [address] Creatinine with Estimated GFR (04/06/2021 9:14 AM CDT) P athologist Signature Creatinine 0.65 0.59 - 04/06/2021 NPRG 1.04 mg/dL 9:46 AM CDT eGFR-Black/Afric >90 >=60 04/06/2021 NPRG an Icelandic mL/min/BSA 9:46 AM CDT Comment: ----ADDITIONAL INFORMATION---- [...] Organization Address City/State/ZIP Code Phon e Number [facility]- [address] [place], [place] [address] [place] [address] [facility] [address] (ABNORMAL) CBC, Chemotherapy, [...] Ph.D. LAB BLOOD ADD-ON Performing Organization Address City/[facility] Phon e Number [address] Bilirubin, Total (04/06/2021 9:14 AM CDT) P athologist Signature Bilirubin, 0.7 <=1.2 mg/dL 04/06/2021 NPRG Total, P 9:46 AM CDT Specimen Anatomical Collection Method Collection Time Receive d Time (Source) Location / / Volume Laterality Blood (Blood, 04/06/2021 9:14 AM 04/06/20 9:17 Venous) CDT AM CDT Walter Barnhart M.D., Ph.D. LAB BLOOD ADD-ON Performing Organization Address City/[facility] Phon e Number [place] [address] [address] [place] [address] [facility] NPRG [address] AST (Aspartate Aminotransferase) (04/06/2021 9:14 [...] Ph.D. LAB BLOOD ADD-ON Performing Organization Address City/[facility]/ZIP Code Phon e Number [facility]- [address] [place], [place] [address] [facility] NPRG [facility] [place] [address] [facility] [address] (ABNORMAL) Cancer Antigen [...] supplements. ??If the result does not [facility] clinical observations, repeat testing after patient [...] Ph.D. LAB BLOOD ADD-ON Performing Organization Address City/[facility]/ZIP Code Phon e Number [facility]- [address] [place] [address] [facility] [place] [address] [facility] [address] Creatinine with Estimated GFR (03/14/2021 9:47 AM CDT) athologist Signature Creatinine 0.67 0.59 - 03/14/2021 NPRG 1.04 mg/dL 10:10 AM CDT eGFR-Black/Afric >90 >=60 03/14/2021 NPRG an Icelandic mL/min/BSA 10:10 AM CDT Comment: ----ADDITIONAL INFORMATION---- [...] Organization Address City/State/ZIP Code Phon e Number [facility]- [address] [place], [place] [address] [place] [address] [facility] [address] [place] CBC, Chemotherapy, No Alerts (03/14/2021 9:47 AM [...] Organization Address City/State/ZIP Code Phon e Number [place] [address] [address] [place], [place] [address] [place] [address] Bilirubin, Total (03/14/2021 9:47 AM CDT) P athologist Signature Bilirubin, 0.5 <=1.2 mg/dL 03/14/2021 NPRG Total, P 10:10 AM CDT Specimen Anatomical Collection Method Collection Time Receive d Time (Source) Location / / Volume Laterality Blood (Blood, 03/14/2021 9:47 AM 03/14/20 9:51 Venous) CDT AM CDT Walter Barnhart M.D., Ph.D. LAB BLOOD ADD-ON Performing Organization Address City/State/ZIP Code Phon e Number [place] [address] [place], [place] [address] [facility] NPRG [place] [phone] [address] AST (Aspartate Aminotransferase) (03/14/2021 9:47 AM [...] Organization Address City/State/ZIP Code Phon e Number [place] [address] [address] [place], [place] [address] [facility] NPRG [place] [phone] [address] (ABNORMAL) Cancer Antigen 125 (CA 125) [...] is an electrochemilum inescence assay manufactured by [employer] and performed on the Michela [...] Organization Address City/State/ZIP Code Phon e Number [facility]- [address] [place], [place] [phone] [place] [address] LAB AUST [facility] - [address] Abdomen [...] CDT eGFR-Black/Afric >90 >=60 02/23/2021 METH an Icelandic mL/min/BSA 10:43 AM CDT Comment: ----ADDITIONAL INFORMATION---- [...] City/State/ZIP Code Phon e Number [facility] - [address] [place], [place] [address] [facility] [place] [address] [facility] [address] CBC, Chemotherapy, No Alerts [...] City/State/ZIP Code Phon e Number [facility] - [address] [place], [place] [address] [place] [address] [facility] [address] Bilirubin, Total (02/23/2021 10:08 AM CDT) P athologist Signature Bilirubin, 0.3 <=1.2 mg/dL 02/23/2021 METH Total, P 10:43 AM CDT Specimen Anatomical Collection Method Collection Time Receive d Time (Source) Location / / Volume Laterality Blood (Blood, 02/23/2021 10:08 02/23/2021 Venous) AM CDT 10:13 AM CDT Walter Barnhart M.D., Ph.D. LAB BLOOD ADD-ON Performing Organization Address City/State/[facility] Code Phon e Number [facility] - [address] [place], [place] [address] [place] [address] [facility] [address] AST (Aspartate Aminotransferase) (02/23/2021 [...] City/State/ZIP Code Phon e Number [facility] - [address] [place], [place] [address] [facility] [place] [address] [facility] [address] documented in this encounter Visit Diagnoses Diagnosis Malignant Neoplasm Of Ovary Laterality U nknown (HCC) - Primary Neutropenia Drug Induced (HCC) Malignant Neoplasm Of Ovary Laterality U nknown (HCC) documented in this encounter
--- OUTSIDE RECORDS SUMMARY | 2022-03-16 10:31 | XMS_ITS | Encounter Summary ---
:1975 Author Organization [facility] Address [address] [place] [address] Care Team Providers Name Role Phone Unavailable Primary Care Provider Unavailable Reason for Visit Reason Comments [id number] Encounter Details Date Type Department Care Team Description 02/18/2021 Clinical Communication Department of Walter Barnhart D1C1 Oncology in M.D., Ph.D. [place], [place] [address] [facility] [address] [place] [phone] Social History Tobacco Use Types Packs/Day Years [...] Laboratory Medicine Debbie Ivey M.D. [address] [place] [phone] 04/13/2022 Office Visit Oncology Walter Barnhart M.D., Ph.D. [address] [place] [phone] documented as of this encounter Visit Diagnoses Not on filedocumented in this encounter
--- OUTSIDE RECORDS SUMMARY | 2022-03-16 10:31 | XMS_ITS | Encounter Summary ---
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 [address] [place] [address] Referral ID Status Reason Start Date Expiration Date Visits Requ ested Visits Authorized [id number] Closed 02/23/2021 02/23/2022 1 1 Reason for Visit Outpatient (Routine) - Closed Specialty Diagnoses / Procedures Referred By Contact Refer red To Contact Medical Oncology / Diagnoses [facility] M.D[facility]inc[facility] [address] [place] [address] Referral ID Status Reason Start Date Expiration Date Visits Requ ested Visits Authorized [id number] Closed 02/11/2021 02/11/2022 1 1 Encounter Details Date Type Department Care Team Description 02/23/2021 Comprehensive Visit Department of Walter Barnhart Neoplasm Of Ovary Laterality Unknown (HCC) (Primary Dx); Oncology brittney De La Cruz M.D., Ph.D. Mass [facility] [place], [facility] [address], [place] [address] [place] [phone] [place], [place] [phone] (Work) [phone] Social History Tobacco Use Types Packs/Day Years [...] - 02/23/2021 1:40 PM CDT SUBJECTIVE PRIMARY NAUGATUCK ONCOLOGIST Walter Barnhart M.D., Ph.D. REASON FOR [...] Chemotherapy CARBOplatin AUC 6 / PACLitaxel ( ENVIRONMENTAL COMMUNICATIONS SPECIALIST ) Start Date: 02/24/2021 (Planned) Was initially [...] Chemotherapy CARBOplatin AUC 6 / PACLitaxel ( ENVIRONMENTAL COMMUNICATIONS SPECIALIST ) Start Date: 02/24/2021 (Planned) INTERVAL HISTORY: [...] ongoing an upcoming vaccine clinical trials at [facility]. Ms. Yang is interested in participating in [...] Laboratory Medicine Debbie Ivey M.D. [address] [place] [phone] 04/13/2022 Office Visit Oncology Walter Barnhart M.D., Ph.D. [address] [place] [phone] Scheduled Referrals Name Type Priority Associated Diagnoses Order S [facility] Clinical Genomics Outpatient Referral Routine Malignant Neopla sm Expected: - General genetics Of Ovary Laterality consult (clinic) Unknown (HCC) (Approxima te), Expires: 02/24/2024 documented as of this encounter Visit Diagnoses Diagnosis Malignant Neoplasm Of Ovary Laterality U nknown (HCC) - Primary Mass Adnexal documented in this encounter
--- OUTSIDE RECORDS SUMMARY | 2022-03-16 10:31 | XMS_ITS | Encounter Summary ---
:1975 Author Organization [facility] Address [address] [place] [address] Care Team Providers Name Role Phone Unavailable Primary Care Provider Unavailable Encounter Details Date Type Department Care Team Description 02/08/2021 [facility] Tamanna Cheng [facility] M.D. Of Ovary Laterality 2000 [facility] [address] [facility] Unknown (HCC) [place] [address] [place], [place] (Primary Dx) [phone] Social History Tobacco Use Types Packs/Day Years [...] Laboratory Medicine Debbie Ivey M.D. [address] [place] [phone] 04/13/2022 Office Visit Oncology Walter Barnhart M.D., Ph.D. [address] [place] [phone] documented as of this encounter Visit Diagnoses Diagnosis Malignant Neoplasm Of Ovary Laterality U nknown (HCC) - Primary documented in this encounter
--- OUTSIDE RECORDS SUMMARY | 2022-03-16 10:31 | XMS_ITS | Encounter Summary ---
:1975 Author Organization [facility] Address [address] [place] [address] Care Team Providers Name Role Phone Unavailable Primary Care Provider Unavailable Encounter Details Date Type Department Care Team Description 02/21/2021 Admin Visit Department of Oncology in [place], [place] [address] [place] [phone] Social History Tobacco Use Types Packs/Day [...] 1 to 4 times per year 02/09 buddhism services? 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 [address] [place] [address] 04/13/2022 Office Visit Oncology Walter Barnhart M.D., Ph.D. [address] [place] [phone] documented as of this encounter Visit Diagnoses Not on filedocumented in this encounter
--- OUTSIDE RECORDS SUMMARY | 2022-03-16 10:31 | XMS_ITS | Encounter Summary ---
:1975 Author Organization [facility] Address [address] [place] [address] Care Team Providers Name Role Phone Unavailable Primary Care Provider Unavailable Reason for Referral MRI/CAT/PET Scan (Routine) - Closed Specialty Diagnoses / Procedures Referred By Contact Refer red To Contact Radiology Diagnoses Tumor Ovary Uncertain Behavior Bilateral Peritoneal Carcinomatosis (HCC) Abnormal Computed Tomography Pelvis Denisha Oviedo M.D. [facility] Procedures CT Chest without IV Contrast [address] [place] [phone] Referral ID Status Reason Start Date Expiration Date Visits Requ ested Visits Authorized [id number] Closed 02/08/2021 02/08/2022 1 1 Encounter Details Date Type Department Care Team Description 02/08/2021 Orders Only Department of Denisha Oviedo Tumor Ovar y Uncertain Behavior Bilateral (Primary Dx); Obstetrics and [place] Peritoneal Carcinomatosis (HCC); Gynecology in [address] [place] [address] Abnormal Computed Tomography Pelvis [place], [place] [address] [place] [phone] [place], [place] [phone] (Work) [phone] Social History Tobacco Use Types Packs/Day Years [...] Laboratory Medicine Debbie Ivey M.D. [address] [place] [phone] 04/13/2022 Office Visit Oncology Walter Barnhart M.D., Ph.D. [address] [place] [phone] documented as of this encounter Results CT [...] 02/11/2021 DTL Black/ mL/min/BSA 10:18 AM CDT Syrian Comment: ----ADDITIONAL INFORMATION---- Estimated GFR calculated using [...] City/State/ZIP Code Phon e Number [facility] - [address] [place] [address] [facility] [place] [address] [facility] 200 [facility] CBC without Differential (02/11/2021 9:12 AM [...] M.D. LAB BLOOD ADD-ON Performing Organization Address City/[facility] Phon e Number [facility] - 200 [place], [place] [address] [place] [address] Laboratories-[address] Albumin (02/11/2021 9:12 AM CDT) athologist Signature Albumin, S 4.6 3.5 - 5.0 02/11/2021 DTL g/dL 10:18 AM CDT Specimen Anatomical Collection Method Collection Time Receive d Time (Source) Location / / Volume Laterality Blood (Blood, 02/11/2021 9:12 AM 02/12/20 9:50 Venous) CDT AM CDT Denisha Oviedo M.D. LAB BLOOD ADD-ON Performing Organization Address City/[facility] Phon e Number [facility] - 200 [place], [place] [address] [place] [address] (ABNORMAL) Cancer Antigen 125 (CA 125) [...] City/State/ZIP Code Phon e Number [facility] [address] [place] [address] [facility] [place] [address] Laboratory Medicine and Pathology [address] 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
--- OUTSIDE RECORDS SUMMARY | 2022-03-16 10:31 | XMS_ITS | Encounter Summary ---
:1975 Author Organization [facility] Address [address] [place] [address] Care Team Providers Name Role Phone Unavailable Primary Care Provider Unavailable Reason for Visit Reason Comments Communication Encounter Details Date Type Department Care Team Description 02/07/2021 Clinical Communication [facility] [place] mmunication Obstetrics and Provider Gynecology in [place], [place] [address] [place] [address] Social History Tobacco Use Types Packs/Day Years [...] 02/07/2021 2:37 PM CDT I have called [facility] Medical Records to request medical records and recent imaging. I had to leave a VM. Telephone Encounter - Ginette Dennis - 02/07/2021 9:50 AM CDT Pt called in to get care established with our dept. She said she was advised from the [facility] to set up care with us JANNETTE [...] She is sending OSM and imaging from [facility]. She had a recent US and will [...] Appointment Laboratory Medicine Debbie Ivey M.D. 200 [place] [phone] 04/13/2022 Office Visit Oncology Walter Barnhart M.D., Ph.D. 200 [place] [phone] documented as of this encounter Visit Diagnoses Not on filedocumented in this encounter
--- OUTSIDE RECORDS SUMMARY | 2022-03-16 10:31 | XMS_ITS | Encounter Summary ---
:1975 Author Organization [facility] Address [address] [place] [address] Care Team Providers Name Role Phone Unavailable Primary Care Provider Unavailable Encounter Details Date Type Department Care Team Description 02/17/2021 Documentation [facility] LIFE Bronwyn Parson, CCLS [address] [place], [place] [phone] Social History Tobacco Use [...] or slept in a detention (including now)? Sex Assigned at Date Recorded [...] interaction. Child Life can be reached at [phone] should additional needs arise. Visit Type: Phone consultation, resources discussed Child Life Time Spent (Min): 30 documented in this encounter Plan of Treatment Upcoming Encounters Date Type Specialty Care Team Description 04/11/2022 Clinical Communication Admitting/Central Scheduling 04/13/2022 Appointment Laboratory Medicine Debbie Ivey M.D. [address] [place] [address] 04/13/2022 Office Visit Oncology Walter Barnhart M.D., Ph.D. [address] [place] [address] documented as of this encounter Visit Diagnoses Not on filedocumented in this encounter
--- OUTSIDE RECORDS SUMMARY | 2022-03-16 10:31 | XMS_ITS | Encounter Summary ---
:1975 Author Organization [facility] Address [address] [place] [address] Care Team Providers Name Role Phone Unavailable Primary Care Provider Unavailable Reason for Visit Reason Comments Follow-up Encounter Details Date Type Department Care Team Description 02/17/2021 Clinical Communication Department of Fernando Helm ow- Radiology, Jason Chery M.D. [facility], in [address] [place] [phone] [place] [address] [place] [phone] Social History Tobacco Use Types [...] Appointment Laboratory Medicine Debbie Ivey M.D. [address] [place] [address] [phone] 04/13/2022 Office Visit Oncology Walter Barnhart M.D., Ph.D. [address] [place] [phone] documented as of this encounter Visit Diagnoses Not on filedocumented in this encounter
--- OUTSIDE RECORDS SUMMARY | 2022-03-16 10:31 | XMS_ITS | Encounter Summary ---
:1975 Author Organization [facility] Address 200 [place] [address] Care Team Providers Name Role Phone Unavailable Primary Care Provider Unavailable Reason for Referral MRI/CAT/PET Scan (Routine) - Closed Specialty Diagnoses / Procedures Referred By Contact Refer red To Contact Radiology Diagnoses Mass Adnexal Denisha Oviedo M.D. [facility] Procedures CT Abdomen and/or Pelvis Biopsy 200 [place] [address] Referral ID Status Reason Start Date Expiration Date Visits Requ ested Visits Authorized [id number] Closed 02/11/2021 02/11/2022 1 1 Reason for Visit Appointment Request (Routine) - Closed Specialty Diagnoses / Procedures Referred By Contact Refer red To Contact Obstetrics and Diagnoses Cyst Ovary Complex Gynecology Referral ID Status Reason Start Date Expiration Date Visits Requ ested Visits Authorized [id number] Closed 02/07/2021 02/07/2022 1 1 Encounter Details Date Type Department Care Team Description 02/11/2021 Comprehensive Visit Department of Denisha Oviedo Adnexal (Primary Dx); Obstetrics and Kelly Box Elevated Cancer Antigen 125; Gynecology in [address] [place] [address] Pain Pelvic Female; [place], [place] Pain Generaliz ed Abdominal; [place] [address] Constipation; [address] [place] [address] Tenesmus Rectal; [place], [place] (Work) Fatigue; [phone] Anorexia Social History [...] for high-grade serous carcinoma.CA-125 was 1617. ?? TONGER/PAP HISTORY: ?? BMI: 21 PAST MEDICAL HISTORY: [...] Laboratory Medicine Debbie Ivey M.D. [address] [place] [phone] 04/13/2022 Office Visit Oncology Walter Barnhart M.D., Ph.D. [address] [place] [phone] documented as of this encounter Results CT [...] Organization Address City/[facility] Phon e Number [facility] - [address] [place] [address] 05 [facility] [place] [address] Laboratories-[facility] [address] Type and Screen (with reflex Antibody ID) (02/11/2021 9:12 AM CDT) [facility] gist Method Time Signature ABORh B [...] BANK TEST ORDERABL ES Performing Organization Address City/[facility] Phon e Number [facility] - [address] [place], [place] [address] [facility] [place] [address] Laboratories-[facility] [address] documented in this encounter Visit Diagnoses Diagnosis Mass Adnexal - Primary Elevated Cancer Antigen 125 Pain Pelvic Female Pain Generalized Abdominal Constipation Tenesmus Rectal Fatigue Anorexia Mass Adnexal documented in this encounter
--- OUTSIDE RECORDS SUMMARY | 2022-03-16 10:31 | XMS_ITS | Encounter Summary ---
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 [address] [place] [address] [place] [phone] Referral ID Status Reason Start Date Expiration Date Visits V isits Requested Authorized [id number] Authorized 02/17/2021 02/17/2022 12 12 Encounter Details Date Type Department Care Team Description 02/23/2021 Education Department of Oncology Vasu Barnhart M.D., Ph.D. [address] [place] [phone] Malignant Neoplasm Of in Cabrera Dominguez Lisette D, M.S.N., R.N. [address] [place] [address] [phone] Ovary Laterality [place] Unknown (HCC) [address] [place] [address] [phone] Social History Tobacco Use Types Packs/Day Years [...] Appointment Laboratory Medicine Debbie Ivey M.D. [address] [place] [phone] 04/13/2022 Office Visit Oncology Walter Barnhart M.D., Ph.D. [address] [place] [phone] documented as of this encounter Visit Diagnoses Diagnosis Malignant Neoplasm Of Ovary Laterality U nknown (HCC) documented in this encounter
--- OUTSIDE RECORDS SUMMARY | 2022-03-16 10:31 | XMS_ITS | Encounter Summary ---
:1975 Author Organization [facility] Address [address] [place] [address] Care Team Providers Name Role Phone Unavailable Primary Care Provider Unavailable Reason for Referral MRI/CAT/PET Scan (Routine) - Closed Specialty Diagnoses / Procedures Referred By Contact Refer red To Contact Radiology Diagnoses Tumor Ovary Uncertain Behavior Bilateral Peritoneal Carcinomatosis (HCC) Abnormal Computed Tomography Pelvis Denisha Oviedo M.D. [facility] Procedures CT Chest without IV Contrast [address] [place] [phone] Referral ID Status Reason Start Date Expiration Date Visits Requ ested Visits Authorized [id number] Closed 02/08/2021 02/08/2022 1 1 Reason for Visit MRI/CAT/PET Scan (Routine) - Closed Specialty Diagnoses / Procedures Referred By Contact Refer red To Contact Radiology Diagnoses Tumor Ovary Uncertain Behavior Bilateral Peritoneal Carcinomatosis (HCC) Abnormal Computed Tomography Pelvis Denisha Oviedo M.D. [facility] Procedures CT Chest without IV Contrast [address] [place] [phone] Referral ID Status Reason Start Date Expiration Date Visits Requ ested Visits Authorized [id number] Closed 02/08/2021 02/08/2022 1 1 Encounter Details Date Type Department Care Team Description 02/11/2021 Hospital Encounter Department of Denisha Oviedo Ovary Uncertain Behavior Bilateral; Radiology, Jeramy Box M.D. Peritoneal Carcinomatosis (HCC); Building, in [address] Abnormal Computed Tomography Pelvis [facility] [phone] [phone] [place], [place] (Work) [phone] Social History Tobacco Use Types Packs/Day Years [...] Debbie Ivey M.D. [address] [place] [address] 04/13/2022 Office Visit Oncology Walter Barnhart M.D., Ph.D. [address] [place] [address] documented as of this encounter Procedures Procedure [...]
--- OUTSIDE RECORDS SUMMARY | 2022-03-16 10:31 | XMS_ITS | Encounter Summary ---
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 [address] [place] [address] [phone] Referral ID Status Reason Start Date Expiration Date Visits Requ ested Visits Authorized [id number] Closed 02/17/2021 03/19/2021 1 1 Encounter Details Date Type Department Care Team Description 02/23/2021 Hospital Encounter Department of Walter Barnhart Malign ant Neoplasm Radiology, Jeramy De La Cruz M.D., Ph.D. Of Ovary Laterality [facility], in [address] [place] [address] Unknown (HCC) [facility] [phone] [place] [address] [place], [place] (Work) [phone] Social History Tobacco Use Types Packs/Day Years [...] Laboratory Medicine Debbie Ivey M.D. [address] [place] [phone] 04/13/2022 Office Visit Oncology Walter Barnhart M.D., Ph.D. [address] [place] [phone] documented as of this encounter Procedures Procedure [...]
--- OUTSIDE RECORDS SUMMARY | 2022-03-16 10:31 | XMS_ITS | Encounter Summary ---
:1975 Author Organization [facility] Address [address] [place] [address] Care Team Providers Name Role Phone Unavailable Primary Care Provider Unavailable Reason for Referral MRI/CAT/PET Scan (Routine) - Closed Specialty Diagnoses / Procedures Referred By Contact Refer red To Contact Radiology Diagnoses Mass Adnexal Denisha Oviedo M.D. [facility] Procedures CT Abdomen and/or Pelvis Biopsy [address] [place] [address] Referral ID Status Reason Start Date Expiration Date Visits Requ ested Visits Authorized [id number] Closed 02/11/2021 02/11/2022 1 1 Reason for Visit Auth/Cert Specialty Diagnoses / Procedures Referred By Contact Refer red To Contact Diagnoses Mass Adnexal Procedures CT ABDOMEN AND/OR PELVIS BIOPSY OP Referral ID Status Reason Start Date Expiration Date Visits Requ ested Visits Authorized [id number] 1 1 Encounter Details Date Type Department Care Team Description 02/16/2021 Hospital Encounter Department of Denisha Oviedo M ass Adnexal Radiology, Monet Robb M.D. [facility], in [address] [place], [place] [address] [place] [phone] [place], [place] [phone] (Wo rk) [phone] Social History Tobacco Use Types Packs/Day Years [...] related to the procedure, please contact the [facility] duck operator ([phone]) and ask to be connected to the non-vascular interventional radiology fellow scheduler conveyor documented in this encounter Medications at Time [...] Appointment Laboratory Medicine Debbie Ivey M.D. 200 [place] [address] 04/13/2022 Office Visit Oncology Walter Barnhart M.D., Ph.D. 200 [place] [address] documented as of this encounter Procedures Procedure [...] Performed Pathologis t Range Method Time At [facility] 02/20/2021 STMA 2:26 PM CDT Report Andrew Chong M.D. [id number] 02/20/2021 S TMA electronically 2:26 PM signed [...] performance characteri stics 02/20/2021 STMA determined by [facility] in a manner consistent with CLIA 2:26 PM requirements. This test has not been cleared or approved by CDT the U.S. Food and Drug Administration. Interpretation FINAL DIAGNOSIS 02/20/2021 STMA 2:26 PM A. ??Soft tissue, pelvic mass, biopsy: ??Positive for CDT malignancy. ??Rare malignant cells seen associated with necrosis. ??Interpretation limited by sparse cellularity. See case [id number] for diagnosis. Ancillary immunostains trina the tumor [...] Organization Address City/State/ZIP Code Phon e Number [facility] - [address] [place], [place] [address] [facility] [place] [address] Laboratories-[facility] [address] Cytology Fine Needle Aspiration (including core biopsies) (02/16/2021 8:25 AM CDT) Component Value Ref Test Analysis Performed Pathologis t Range Method Time At [facility] 02/17/2021 DTL 6:02 PM CDT Disclaimer This test was developed and its performance characteri stics 02/17/2021 DTL determined by [facility] in a manner consistent with CLIA 6:02 PM requirements. This test has not been cleared or approved by CDT the U.S. Food and Drug Administration. Participated in [facility] 02/17/2021 DTL the [facility], 6:02 PM Interpretation Ph.D.-Pathology CDT Resident Report Edson Lainez M.D. [id number] 02/17/2021 DT L electronically 6:02 PM signed by CDT I verify that I have examined all relevant slides/materials for the specimen(s) and rendered or confirmed the diagnosis. Seen in consultation with: Andrew Chong M.D. [id number] Gross Description Received 5 alcohol-fixed smears and [...] Organization Address City/State/ZIP Code Phon e Number [facility] - [address] [place], [place] [address] [facility] [place] [address] Laboratories-[facility] [address] documented [...]
--- OUTSIDE RECORDS SUMMARY | 2022-03-16 10:31 | XMS_ITS | Encounter Summary ---
:1975 Author Organization [facility] Address [address] [place] [address] Care Team Providers Name Role Phone Unavailable Primary Care Provider Unavailable Reason for Visit Reason Comments Other Pre-appointment review Encounter Details Date Type Department Care Team Description 02/09/2021 Documentation Department of Denisha Oviedo Obstetrics and EKelly (Pre-appointment Gynecology in [address] [facility] review ) [place], [place] [address] [place] [phone] [place], [place] [phone] (Work) [phone] Social History Tobacco Use Types Packs/Day Years [...] or relatives? How often do you attend restorationist or 1 to 4 times per year 02/09 buddhist services? Do you belong to any clubs or Yes 02/26/2021 organizations such as restorationist groups, unions, fraternal or athletic groups, or [...] Oviedo MD on 02/11/21. Angelica Yang [address] [facility] [phone] ANTICIPATED SURGICAL DATE/PROCEDURE: Pending consult DIAGNOSIS: Large [...] high- grade serous carcinoma. CA-125 was 1617. 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 [address] [place] [phone] 04/13/2022 Office Visit Oncology Walter Barnhart M.D., Ph.D. [address] [place] [phone] documented as of this encounter Visit Diagnoses Not on filedocumented in this encounter
--- OUTSIDE RECORDS SUMMARY | 2022-03-16 10:31 | XMS_ITS | Encounter Summary ---
:1975 Author Organization [facility] Address [address] [place] [address] Care Team Providers Name Role Phone Unavailable Primary Care Provider Unavailable Encounter Details Date Type Department Care Team Description 02/23/2021 Education Department of Patient Osbaldo Barnhart M.D., Ph.D. [address] [place] [address] Malignant Neoplasm Of Education in Candie Oshea M.Ed. Ovary Laterality [place], [place] Unknown (HCC) [address] [place] [address] Social History Tobacco Use Types Packs/Day Years [...] Appointment Laboratory Medicine Debbie Ivey M.D. [address] [place] [phone] 04/13/2022 Office Visit Oncology Walter Barnhart M.D., Ph.D. [address] [place] [phone] documented as of this encounter Visit Diagnoses Diagnosis Malignant Neoplasm Of Ovary Laterality U nknown (HCC) documented in this encounter
--- OUTSIDE RECORDS SUMMARY | 2022-03-16 10:31 | XMS_ITS | Encounter Summary ---
:1975 Author Organization [facility] Address [address] [place] [address] Care Team Providers Name Role Phone Unavailable Primary Care Provider Unavailable Reason for Visit Reason Comments Communication Encounter Details Date Type Department Care Team Description 02/08/2021 Clinical Communication Department of Denisha Oviedo Communication Obstetrics and E, MMickey. Gynecology in [address] [place] [address] [place] [phone] [place], [place] [phone] (Work) [phone] Social History Tobacco Use Types Packs/Day Years [...] Arabella Evans - 02/08/2021 3:22 PM CDT [facility] called back on this pt and she is rescheduled to 02/11 with a 7:45 am check in. Pt was at [facility] and they were making pt aware of [...] Laboratory Medicine Debbie Ivey M.D. [address] [place] [address] 04/13/2022 Office Visit Oncology Walter Barnhart M.D., Ph.D. [address] [place] [address] documented as of this encounter Visit Diagnoses Not on filedocumented in this encounter
--- OUTSIDE RECORDS SUMMARY | 2022-03-16 10:31 | XMS_ITS | Encounter Summary ---
:1975 Author Organization [facility] Address [address] [place] [address] Care Team Providers Name Role Phone Unavailable Primary Care Provider Unavailable Reason for Visit Reason Comments Appointment Encounter Details Date Type Department Care Team Description 02/17/2021 Clinical Communication Department of Walter Barnhart, Appointment Oncology in M.D., Ph.D. [place], [place] [address] [facility] [address] [place] [phone] Social History Tobacco Use Types Packs/Day Years [...] Is this ok? Thank you, Yoselin Girard [facility] routing- [facility] Onc Scheduling Patient Appointment Lay Out Drafter Medical Oncology Appointment Office Phone:?[phone] documented in this encounter Plan of Treatment Upcoming Encounters Date Type Specialty Care Team Description 04/11/2022 Clinical Communication Admitting/Central Scheduling 04/13/2022 Appointment Laboratory Medicine Debbie Ivey M.D. [address] [place] [phone] 04/13/2022 Office Visit Oncology Walter Barnhart M.D., Ph.D. [address] [place] [address] documented as of this encounter Visit Diagnoses Not on filedocumented in this encounter
--- OUTSIDE RECORDS SUMMARY | 2022-03-16 10:31 | XMS_ITS | Encounter Summary ---
:1975 Author Organization [facility] Address [address] [place] [address] Care Team Providers Name Role Phone Unavailable Primary Care Provider Unavailable Encounter Details Date Type Department Care Team Description 02/11/2021 Hospital Encounter Department of Denisha Oviedo Ovary Uncertain Behavior Bilateral; Laboratory E MTrent Peritoneal Carcinomatosis (HCC); Medicine and [address] [place] [address] Abnormal Computed Tomography Pelvis; Path[place], [place] [address] [facility] [phone] [place] (Work) [address] [place] [address] [place], [place] (Fax) [phone] Social History Tobacco Use [...] Laboratory Medicine Debbie Ivey M.D. [address] [place] [phone] 04/13/2022 Office Visit Oncology Walter Barnhart M.D., Ph.D. [address] [place] [address] documented as of this encounter Procedures Procedure [...] Organization Address City/State/ZIP Code Phon e Number [facility] - 200 [place], [place] [address] [facility] [place] [address] Laboratories-[facility] [address] [facility] Type and Screen (with reflex Antibody [...] Organization Address City/State/ZIP Code Phon e Number [facility] - [address] [place], [place] [address] [facility] [place] [address] Laboratories-[facility] [address] (ABNORMAL) Basic Metabolic [...] 02/11/2021 DTL Black/ mL/min/BSA 10:18 AM CDT Bangladeshi Comment: ----ADDITIONAL INFORMATION---- Estimated GFR calculated using [...] M.D. LAB BLOOD ADD-ON Performing Organization Address City/[facility] Code Phon e Number [facility] - 200 [place], [place] [address] [place] [address] [place] [address] CBC without Differential (02/11/2021 9:12 AM [...] M.D. LAB BLOOD ADD-ON Performing Organization Address City/State/[facility] Phon e Number [facility] - 200 [place], [place] [address] [place] [address] [place] [address] Albumin (02/11/2021 9:12 AM CDT) athologist Signature Albumin, S 4.6 3.5 - 5.0 02/11/2021 DTL g/dL 10:18 AM CDT Specimen Anatomical Collection Method Collection Time Receive d Time (Source) Location / / Volume Laterality Blood (Blood, 02/11/2021 9:12 AM 02/12/20 9:50 Venous) CDT AM CDT Denisha Oviedo M.D. LAB BLOOD ADD-ON Performing Organization Address City/State/ZIP Code Phon e Number [facility] - [address] [place], [place] [address] [facility] [place] [address] Laboratories-[facility] [address] (ABNORMAL) Cancer Antigen 125 (CA 125) (02/11/2021 9:12 AM CDT) athologist Signature Cancer Ag 125 2428 (H) <46 U/mL 02/11/2021 [facility] (CA 125), S 1:16 PM CDT Comment: ----ADDITIONAL INFORMATION---- The testing method is an electrochemilum inescence assay manufactured by [employer] and performed on the Michela [...] M.D. LAB BLOOD ADD-ON Performing Organization Address City/[facility] Phon e Number [facility] [address] [place], [place] [address] [facility] [place] [address] Laboratory Medicine and Pathology [address] [place] documented in this encounter Visit Diagnoses Diagnosis Tumor Ovary Uncertain Behavior Bilateral Peritoneal Carcinomatosis (HCC) Abnormal Computed Tomography Pelvis Mass Adnexal documented in this encounter
--- OUTSIDE RECORDS SUMMARY | 2022-03-16 10:32 | XMS_ITS ---
:1975 Author Name Timbo Quick Care Team Providers Name Role Phone Abdelrahman Timbo Unavailable Unavailable PROBLEMS Type Condition ICD9-CM Code EIH18-IJ Onset Condition SNOMED Code Code Dates Status Problem Perimenopause N95.1 Active Problem Perimenopausal N95.1 Active Problem Perimenopausal N95.1 Active 22935 3006 vasomotor symptoms Problem Binge eating F50.81 Active [id number] 05 disorder ALLERGIES No Known Allergies ENCOUNTERS Encounter Location Date Diagnosis [facility] [address] Dec, [place], [place] [phone] [facility] [place] [address] [place] [employer] [facility] Dec, [address] [address] [place] [address] [place] [employer] [facility] Jun, [address] [address] [facility] [address] Feb, [place], [place] [phone] [facility] [address] Dec, [place], [place] [phone] [facility] [address] Jun, [place], [place] [phone] [facility] [address] Jun, Perim enopausal vasomotor [facility] 120 symptoms N95.1 a nd [place], [place] Encounter for sc reening [address] for lipid disord er Z13.220 [facility] [address] Jun, Perim enopausal N95.1 and [address] Hot flashes R23. 2 [place] [address] [facility] [address] Jun, Perime nopause N95.1 [place], [place] [phone] [facility] [address] Apr, [place] [address] [place] [address] [facility] [address] October, [place], [place] [phone] [facility] [address] Apr, [place] [phone] [facility] [address] Mar, [place] [phone] [facility] [address] Mar, [place], [place] [phone] [facility] [address] Mar, [place], [place] [phone] [facility] [address] Mar, A nnual physical exam for [place] [address] Z00.00 ; Cervica l cancer [place], [place] screening Z12.4 ; Breast [address] cancer screening by mammogram Z12.31 ; Perimenopause N9 5.1 and Binge eating dis order F50.81 [facility] [address] Jul, Perim enopausal vasomotor [address] symptoms N95.1 a nd Breast [place], [place] cancer screening Z12.31 [phone] IMMUNIZATIONS No Known Immunizations SOCIAL HISTORY Qualifiers [...] PROCEDURES Procedure Date Ordered Result Body Site HPV HIGH-RISK TYPES Mar 19, 2018 VENIPUNCT, ROUTINE* Jul 03, 2019 GONADOTROPIN (FSH) Jul 03, 2019 CYTOPATH, C/V, THIN LAYER Mar 19, 2018 ASSAY OF ESTRADIOL Jul 03, 2019 RESULTS Name Result Date Reference Range ESTRADIOL 2019-07-03 ESTRADIOL 115 FSH 2019-07-03 FSH 4.9 MAMMOGRAM, SCREENING 2018-04-10 THINPREP PAP AND HPV mRNA E6/E7 REFLEX HPV 03-19 16,18/45 CLINICAL INFORMATION: 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 BX: N/A PREV. 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: SOURCE: [employer] STATEMENT OF ADEQUACY: REASON FOR VISIT Insurance Providers [facility] Patient Patient Patient Patient Patient Subscriber Subscriber Subscriber Group Insurance Plan Plan Plan Plan ID Relationship Address Phone Name Date of ID Name Date of No Type Insurance Insurance Insurance Coverage to Subscriber Address Phone Name Dates [place] [address] [place] [id number] Group [id number] [place] [address] [employer] [address] Blue Cross self [place] [id number] and [id number] [employer] STARFI[place] [address] [facility] [address] [place] MEDICAL (GENERAL) HISTORY Type Description Date Medical History Bladder Infections Surgical History Bladder Sling 2010 Surgical History Uterine Ablation 2010
[2022-03-16 14:30] LABS: Albumin* 5.2 g/dL (3.3-5.0); Chloride* 101 mmol/L (96-114); Potassium* 4.5 mmol/L (3.6-5.1); Sodium* 138 mmol/L (135-149)
[2022-03-16 14:33] LABS: Alanine Aminotransferase* 24 U/L (4-35); Alkaline Phosphatase* 116 U/L (40-150); Aspartate Amino Transferase* 47 U/L (12-35); Bilirubin Total* 1.3 mg/dL (0.1-1.5); Blood Urea Nitrogen* 11 mg/dL (5-24); Carbon Dioxide* 25 mmol/L (20-32); Creatinine* 0.6 mg/dL (0.5-1.5); Estimated Glomerular Filt Rate 112 ml/min; Glucose* 107 mg/dL (60-115); Total Protein* 8.2 g/dL (6.0-8.3)
[2022-03-16 14:34] LABS: Calcium* 9.7 mg/dL (8.4-10.6)
== END 2022-03-16 10:16 | disposition home or self-care (01) ==
LOC: NFLDREF 10:16
PROVIDERS: Visit Provider Internal Medicine
DX: Z85.43 Personal history of malignant neoplasm of ovary (principal)
CPT/HCPCS: 80053

== ENCOUNTER 2022-03-28 16:12 | Outpatient (REF) | payer OTHER, SELFPAY ==
--- OUTSIDE RECORDS SUMMARY | 2022-03-28 16:27 | XMS_ITS | Encounter Summary ---
:1975 Author Organization [facility] Address [address] [place] [address] Care Team Providers Name Role Phone Elsewhere, Pcp Primary Care Provider Unavailable Reason for Referral Outpatient (Routine) - Authorized Specialty Diagnoses / Procedures Referred By Contact Refer red To Contact Oncology Debbie Ivey M. D. [address] [phone] Referral ID Status Reason Start Date Expiration Date Visits V isits Requested Authorized [id number] Authorized 01/03/2022 01/03/2023 1 1 Reason for Visit Outpatient (Routine) - Closed Specialty Diagnoses / Procedures Referred By Contact Refer red To Contact Oncology Walter Barnhart M. D., Ph.D. [address] [phone] Referral ID Status Reason Start Date Expiration Date Visits Requ ested Visits Authorized [id number] Closed 11/10/2021 11/10/2022 1 1 Encounter Details Date Type Department Care Team Description 01/03/2022 Office Visit Department of Marychuy Kapoor Malignan t Neoplasm Of Oncology in MEDICAL LAB TECHNICIAN, C.N.P., Ovary Laterali ty [place], [place] M.S.N. Unknown (HCC) (Primary [address]x) [place] [phone] Social History Tobacco Use Types Packs/Day Years [...] one Less than mo nthly 02/26/2021 occasion? Social Isolation Answer Date Recorded In a typical week, how many times do you Three times a week 02/26/2021 talk on the phone with family, friends, or neighbors? How often do you get together with friends More than three t imes a week 02/26/2021 or relatives? How often do you attend temple or 1 to 4 times per year 02/09 islam services? Do you belong to any clubs [...] in 2020; BRCAnalysis with MyRisk panel from [facility]. 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 Somatic testing: HRD Positive, BRCA negative 02/03/2021 [...] CARBOplatin AUC 6 / PACLitaxel ( REGIONAL SALES EXECUTIVE ) Start Date: 02/25/2021 Completed 3 cycles [...] CARBOplatin AUC 6 / PACLitaxel ( REGIONAL SALES EXECUTIVE ) Start Date: 02/25/2021 Adjuvant chemotherapy, cycles [...] can be placed on the vaccine trial (IG9694.01 (ECTx) QJ4285.01; A phase I trial evaluating a mutanome-directed [...] a pleasure to meet with Ms. Angelica Yang today. She is a 46 y.o. woman [...] evidence of disease. Regarding her participation in JH2742.01, the phase I trial looking at viral [...] Laboratory Medicine Debbie Ivey M.D. [address] [place] [phone] 04/13/2022 Office Visit Oncology Walter Barnhart M.D., Ph.D. [address] [place] [phone] Scheduled Orders Name Type Priority Associated Diagnoses [...] Routine Expec jace: visit (clinic) 04/05/2022 Surveillance; REGIONAL SALES EXECUTIVE (Approxima te), Expires: 04/05/2023 documented as of [...] Cancer Ag 125 7 <46 U/mL 01/04/2022 [facility] ([place] 125), S 12:19 PM CDT [...] Address City/State/ZIP Code Phon e Number [facility] [address] [place] [address] [facility] [place] [address] Laboratory Medicine and Pathology [address] 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
--- OUTSIDE RECORDS SUMMARY | 2022-03-28 16:27 | XMS_ITS | Encounter Summary ---
:1975 Author Organization [facility] Address [address] [place] [address] Care Team Providers Name Role Phone Elsewhere, Pcp Primary Care Provider Unavailable Encounter Details Date Type Department Care Team Description 01/11/2022 Specialty Pharmacy [facility] Brunilda Tamayo, [address] Dorothy Briscoe Pharm.D., R.Ph. [place], [place] [address] [facility] [address] [place], [place] [phone] (Wo rk) Social History Tobacco Use Types [...] were asked via phone by a patient ambulatory care. (reviewed at or around patient requested refill ) HISTORY OF PRESENT ILLNESS Ms. Angelica Yang is a 46 y.o. female, who is followed by the specialty pharmacy service for [facility]. (Indication: hematology/oncology) Patient reported reassessment questions and responses: Informant: patient How comfortable are you understanding the medication(s) you receive from [facility] Very Comfortable Side Effects Requiring Attention: [...] and reviewing refill history in the [facility] record. The patient/caregiver reports appropriate [...] Laboratory Medicine Debbie Ivey M.D. [address] [place] [address] 04/13/2022 Office Visit Oncology Walter Barnhart M.D., Ph.D. [address] [place] [address] documented as of this encounter Visit Diagnoses Not on filedocumented in this encounter Care Teams Ribbon Blockmaker Relationship Specialty Start Date End Date Elsewhere, Pcp PCP - General Internal Medicine 07/08/21 documented as of this encounter
--- OUTSIDE RECORDS SUMMARY | 2022-03-28 16:27 | XMS_ITS ---
:1975 Author Organization [facility] Address [address] [place] [address] Care Team Providers Name Role Phone Elsewhere, Pcp Primary Care Provider Unavailable Active Problems Problem Noted Date Personal History Of Malignant Neoplasm Of Ovary 2020 Education Need Ostomy 05/04/2021 Obstruction Intestinal 04/25/2021 Neutropenia Drug Induced 04/07/2021 Malignant Neoplasm Of Ovary Laterality Unknown 021 Mass Ovary 02/16/2021 Current Oncology Plans CARBOplatin AUC 6 / PACLitaxel ( SHUTTLE BUGGY OPERATOR )Plan Start Date:02/23/2021 Plan Provider:Walter Barnhart M.D., [...] treatments are documented for this patient in [facility]. Treatments may have been administered in another system.
--- OUTSIDE RECORDS SUMMARY | 2022-03-28 16:27 | XMS_ITS | Encounter Summary ---
:1975 Author Organization [facility] Address [address] [place] [address] Care Team Providers Name Role Phone Elsewhere, Pcp Primary Care Provider Unavailable Reason for Visit Reason Comments Updated Genetic Test Results Encounter Details Date Type Department Care Team Description 02/06/2022 Documentation Department of Medical Calvin Alba Updated Genetic Test Genetics in [phone] Results [place], [place] (Work) [address] [place] [address] Social History Tobacco Use Types Packs/Day Years [...] They elected to pursue the [facility] with [facility] Cancer Panel through [facility]. At the time, a variant of uncertain significance (VUS) was identified in the APC, specifically named [id number] aka [id number]). [facility] issued a reclassification report noting the VUS in APC has now been downgraded to a variant of no clinical significance. Therefore, it is unlikely that this variant causes disease. The recommended care plan from the patient's initial result note remains applicable. This information was communicated to the patient via the patient online services portal by our genetic counseling staff physical therapy assistant. documented in this encounter Plan of Treatment Upcoming Encounters Date Type Specialty Care Team Description 04/11/2022 Clinical Communication Admitting/Central Scheduling 04/13/2022 Appointment Laboratory Medicine Debbie Ivey M.D. [address] [place] [address] 04/13/2022 Office Visit Oncology Walter Barnhart M.D., Ph.D. [address] [place] [address] documented as of this encounter Visit Diagnoses Not on filedocumented in this encounter Care Teams Bottom Painter Relationship Specialty Start Date End Date Elsewhere, Pcp PCP - General Internal Medicine 07/08/21 documented as of this encounter
--- OUTSIDE RECORDS SUMMARY | 2022-03-28 16:27 | XMS_ITS | Clinical Summary ---
:1975 Author Organization [facility] Address [address] [place] [address] Care Team Providers Name Role Phone Elsewhere, Pcp Primary Care Provider Unavailable Source Comments Patient records contain information from all sites at [facility]. For routine questions regarding patient records, call [phone] during business hours, M-F 8:00 AM - 5:00 PM Central Time. Record requests for emergency care only can be directed to [phone] at any time.[facility] Allergies Active Allergy Reactions Severity Noted Date Comments Blood-Group Specific Other (see comments) 06/16/2009 Patient has a Substance Nonspecfic Anti body. Rh factor. Bloo d products may be delayed. Draw 2 purple top tubes and 1 red top tube for Ty pe and Screen +/or Typ e and Crossmatch orde rs. Medications Medication Sig Dispensed Refills Start Date End Date Status kzlnfhx-yopk-eecsw-ore Take 1 tablet by 0 Active g-capryl [...] Encounters Date Type Specialty Care Team Description 03/20/2022 Clinical Oncology Malathi Bear, Labs Only Communication R.N. 03/13/2022 Ancillary Procedure Radiology Marychuy Kapoor Neoplasm M, CROWN POUNCER, C.N.P., Of Ovary La terality M.S.N. Unknown (HCC) 03/03/2022 Clinical Oncology Malathi Bear, Alert Labs Communication R.N. 02/08/2022 Clinical Oncology Walter Barnhart M.D., Ph.D. 02/07/2022 Specialty Pharmacy Pharmacy SarahiMichelle basurto Pharm.DChapincito, R.Ph. 02/06/2022 Documentation Clinical Genomics Deysi Alba ed Genetic M Test Results 01/11/2022 Specialty Pharmacy Pharmacy Brunilda Tamayo, Pharm.D., R.Ph. 01/03/2022 Infusion Oncology [facility] Marychuy Malignant Ne oplasm M, CROWN POUNCER, C.N.P., Of Ovary La terality M.S.N. Unknown (HCC) 01/03/2022 [facility] M, CROWN POUNCER, C.N.P., Of Ovary La terality M.S.N. Unknown (HCC) (Primary Dx) 01/03/2022 Hospital Encounter Radiology Walter Barnhart Neoplasm Kelly De La Cruz, Ph.D. Of Ovary Late rality Unknown (HCC) 01/03/2022 Hospital Encounter Laboratory Walter Barnhart Neoplasm Medicine Kelly De La Cruz, Ph.D. Of Ovary Late rality Unknown (HCC) 01/02/2022 Clinical Admitting/Central Communication Scheduling from Last 3 Months Immunizations Name Administration Dates Next Due H1N1 All Forms 05/05/2009 HepA / HepB 12/19/2013, 06/16/2013, 02/12/2013 Hib (PRP-OMP) (PedvaxHIB) 05/12/2021 Influenza (IM) Preservative Free 02/28/2013 Influenza TIV (IM) 03/24/2009, 05/15/2008, 03/20/2006, 05/06/2004 Influenza, Seasonal, Injectable 03/09/2014, 03/24/2009, 10/2007, 03/20/2006 MCV4 (Menveo) 07/11/2021, 05/12/2021 MenB (BEXSERO) [...] Appointment Laboratory Medicine Debbie Ivey M.D. [address] [place] [phone] 04/13/2022 Office Visit Oncology Walter Barnhart M.D., Ph.D. [address] [place] [phone] Health Maintenance Due Date Last Done Comments CT Colonography 1975 Cologuard 1975 Colonoscopy 1975 Colorectal Cancer Surveillance 1975 Lipid (Cholesterol) Screening 1975 Mammogram 1975 COVID-19 Vaccine (3 - Moderna 05/01/2021 04/03/2021, 2020 risk series) Depression Screening (Annual 06/11/2021 PHQ-2) MenB Vaccine (3 of 4 - Increased 07/11/2022 07/11/2021, 07/2020 Risk Bexsero 2-dose series) Fasting Glucose for Diabetes 05/12/2024 05/12/2021, 021, Screening 05/10/2021, Additional history exists Meningococcal Vaccine (3 - Risk 07/11/2026 07/11/2021, 07/2020 2-dose series) Pneumococcal vaccine (0-64 years) 07/11/2026 07/11/2021, (3 - PPSV23 if available, else PCV20) DTaP,Tdap,and Td Vaccines (3 - Td 07/11/2031 07/11/2021, or Tdap) Hepatitis B Vaccines Completed 12/19/2013, 06/16/2013, 02/12/2013 Cervical Cancer Screening Discontinued 03/19/2018 HIB Vaccines Completed 05/12/2021 HIV Screening Completed 01/03/2022 Hepatitis C Screening Completed 01/03/2022 Influenza Vaccine Completed 03/16/2022, 02/12/2021, 03/29/2018, Additional history exists Medical Devices Implanted Type Area Safety Glass Installer Device Identifier Shelf Model / Expiration Serial / Date Lot Clp Hrzn Ti 6 Clp -Ronal Grn - [id number] Hardware [employer] [id number] 07/20/2025 [id number] / Implanted: Qty: 1 on 05/09/2021 by Denisha Bliss M.D. at [facility] e.g. / pins/screws/ [id number] Procedures Procedure Name Priority Date/Time Associated Comments Diagnosis HEMATOLOGY/ONCOLOGY - Routine 03/16/2022 Result s for BLOOD, EXTERNAL LAB 10:56 AM CDT this pro cedure RESULTS are in the results section. INTERPRETATION OF RAD - Routine 03/13/2022 8:40 [...] (ABNORMAL) Hematology/Oncology - Blood, External Lab Results (03/16/2022 10:56 AM CDT)Only the most recent of6 resultswithin the time period is included. Analysis Performed At Patho logist Time Signature EXT Hemoglobin 13.0 12.0 - OTHER 16.0 (SPECIFY IN PRINTING PLATE MAKER) EXT Leukocytes 5.67 4.50 - OTHER 11.00 (SPECIFY IN PRINTING PLATE MAKER) EXT Absolute 3.48 1.7 - 7.0 OTHER Neutrophil Count (SPECIFY IN PRINTING PLATE MAKER) EXT Platelet 340 140 - 440 OTHER Count (SPECIFY IN PRINTING PLATE MAKER) EXT AST 47 (A) 12 - 35 OTHER (SPECIFY IN PRINTING PLATE MAKER) EXT ALT 24 4 - 35 OTHER (SPECIFY IN PRINTING PLATE MAKER) EXT Alkaline 116 40 - 150 OTHER Phosphatase (SPECIFY IN PRINTING PLATE MAKER) EXT Bilirubin, 1.3 0.1 - 1.5 OTHER Total mg/dL (SPECIFY IN PRINTING PLATE MAKER) EXT Sodium 138 135 - 149 OTHER mmol/L (SPECIFY IN PRINTING PLATE MAKER) EXT Potassium 4.5 3.6 - 5.1 OTHER (SPECIFY IN PRINTING PLATE MAKER) EXT Calcium, 9.7 8.4 - 10.6 OTHER Total (SPECIFY IN PRINTING PLATE MAKER) EXT Creatinine 0.6 0.5 - 1.5 OTHER mg/dL (SPECIFY IN PRINTING PLATE MAKER) EXT Albumin 5.2 (A) 3.3 - 5.0 OTHER g/dL (SPECIFY IN PRINTING PLATE MAKER) EXT Glucose, 180 107 60 - 115 OTHER Min (SPECIFY IN PRINTING PLATE MAKER) EXT Total 8.2 6.0 - 8.3 OTHER Protein (SPECIFY IN PRINTING PLATE MAKER) EXT BUN (Blood 11 5 - 24 OTHER Urea Nitrogen) (SPECIFY IN PRINTING PLATE MAKER) EXT eGFR-Non 112 OTHER Black/ (SPECIFY IN Dutch PRINTING PLATE MAKER) Specimen (Source) Anatomical Collection Method Collection Time Re ceived Time Location / / Volume Laterality Blood 03/16/2022 10:56 AM CDT Historical Provider LAB BLOOD NON ADD-ON Performing Organization Address City/State/ZIP Code Phon e Number OTHER (SPECIFY IN PRINTING PLATE MAKER) OTHER (SPECIFY IN PRINTING PLATE MAKER) N/A Interpretation of Outside CT Abdomen and or [...] APRN C.N.P., M.S.N. IMG CT PROCEDURE S XR chest 1V portable-Outside Chest Xray (03/06/2022 3:40 AM CDT) Specimen (Source) Anatomical Location Collection Method / Collectio n Time Received Time / Laterality Volume Narrative IIMS - 03/10/2022 2:31 PM CDT This order has been created and auto-finalized to support the import of outside images. If available, original i nterpretation can be found on the Media Tab in Chart Review, in Document V iewer, or as an image in QREADS. If a re-interpretation or overread is re quired please follow defined workflow. ?? Provider Not In System IM DIAGNOSTIC IMAGING [facility] SWATHI [facility] Organization Address City/State/ZIP Code Phon e Number IIMS IIMS NA CT ABDOMEN PELVIS W CON-Outside CT Body (03/06/2022 1:35 AM CDT) Specimen (Source) Anatomical Location Collection Method / Collectio n Time Received Time / Laterality Volume Narrative IIMS - 03/10/2022 2:34 PM CDT This order [...] System IMG CT PROCEDURES Performing Organization Address City/State/ZIP Code Phon e Number IIMS IIMS NA CT Abdomen Pelvis with IV [...] athologist Signature HIV-1/-2 Ag Negative Negative 01/03/2022 [facility] and Ab Screen, 2:01 PM CDT [...] M.D., Ph.D. LAB MICROBIOLOGY - BLOOD O RDCHIQUI Performing Organization Address City/[facility] Phon e Number [facility] [address] [place] [address] [address] [facility] [place] [address] Laboratory Medicine and Pathology [address] [place] [address] Dr. MARQUEZ HCV Ab Scrn w/Reflex to HCV PCR, Serum (01/03/2022 9:20 AM CDT) athologist Signature HCV Ab Screen, Negative Negative 01/03/2022 [facility] S 1:49 PM CDT Comment: Hkpwig-rr-auqham ratio is <1.00 . Specimen Anatomical Collection Method Collection Time Receive d Time (Source) Location / / Volume Laterality Blood (Blood, 01/03/2022 9:20 AM 01/04/20 Venous) CDT 12:23 PM CDT Walter Barnhart M.D., Ph.D. LAB MICROBIOLOGY - BLOOD O RDERASHANTANU Performing Organization Address City/[facility]/ZIP [facility] Phon e Number [facility] [address] [address] [place], [place] [address] [facility] [place] [address] Laboratory Medicine and Pathology [address] MARQUEZ Hepatitis B Surface Antigen (01/03/2022 9:20 AM CDT) athologist [facility] HBs Antigen, S Negative Negative 01/03/2022 [facility] 1:32 PM CDT Specimen Anatomical Collection Method Collection Time Receive d Time (Source) Location / / Volume Laterality Blood (Blood, 01/03/2022 9:20 AM 01/04/20 22 Venous) CDT 12:23 PM CDT Walter Barnhart M.D., Ph.D. LAB MICROBIOLOGY - BLOOD O RDERABLES Performing Organization Address City/State/ZIP Code Phon e Number [facility] [address] MARQUEZ [place], [place] [address] [facility] [place] [address] Laboratory Medicine and Pathology [address] [place] [address] Dr. MARQUEZ CBC with Differential, Blood (01/03/2022 9:20 AM CDT) athologist Signature Hemoglobin 14.1 11.6 - 01/03/2022 [...] Ph.D. LAB BLOOD ADD-ON Performing Organization Address City/[facility] Phon e Number [facility] - [address] [place] [address] [address] [place] [address] Laboratories-[facility] 200 [facility] Cancer Antigen 125 (CA 125) (01/03/2022 9:20 AM CDT) athologist Signature Cancer Ag 125 7 <46 U/mL 01/04/2022 [facility] (CA 125), S 12:19 PM CDT [...] M.S.N. LAB BLOOD ADD-ON Performing Organization Address City/[facility] Phon e Number [facility] [address] MARQUEZ [place], [place] [address] [facility] [place] [address] Laboratory Medicine and Pathology [address] [...] Ph.D. LAB BLOOD ADD-ON Performing Organization Address City/[facility] Phon e Number [facility] - [address] [address] Laboratories-[address] (ABNORMAL) Alkaline Phosphatase (01/03/2022 9:20 AM CDT) athologist Signature Alkaline 150 (H) 35 - 104 01/03/2022 DTL Phosphatase, S U/L 10:17 AM CDT Specimen Anatomical Collection Method Collection Time Receive d Time (Source) Location / / Volume Laterality Blood (Blood, 01/03/2022 9:20 AM 01/04/20 Venous) CDT 10:00 AM CDT Walter Barnhart M.D., Ph.D. LAB BLOOD ADD-ON Performing Organization Address City/[facility] Phon e Number [facility] - [address] [place] [address] [place] [address] Creatinine with Estimated GFR (01/03/2022 9:20 AM CDT) athologist Signature Creatinine 0.78 0.59 - 01/03/2022 DTL 1.04 mg/dL 10:17 AM CDT eGFR-Non >90 >=60 01/03/2022 D[facility] Black/ mL/min/BSA 10:17 AM CDT Dutch Comment: ----ADDITIONAL INFORMATION---- Estimated GFR calculated using [...] Ph.D. LAB BLOOD ADD-ON Performing Organization Address City/[facility] Code Phon e Number [facility] - [address] [place] [address] Bilirubin, Total (01/03/2022 9:20 AM CDT) P athologist Signature Bilirubin, 1.0 <=1.2 mg/dL 01/03/2022 DT Total, S 10:17 AM CDT Specimen Anatomical Collection Method Collection Time Receive d Time (Source) Location / / Volume Laterality Blood (Blood, 01/03/2022 9:20 AM 01/04/20 Venous) CDT 10:00 AM CDT Walter Barnhart M.D., Ph.D. LAB BLOOD ADD-ON Performing Organization Address [facility] Phon e Number [id number] [place] [address] from Last 3 Months Insurance Payer Benefit Plan / Subscriber ID Effective Phone Address T ype Group Dates GENERIC GENERIC [id number] 2020-Pres [phone] [address] COMMERCIAL COMMERCIAL ent [id number] [place] [address] Advance Directives For more information, please contact: [phone] Latest Code Status on File Code Status Date Activated Date Inactivated Comments Full Code 05/09/2021 6:40 PM 05/14/2021 1:07 PM Question Answer Comments Full Code: Discussed Code Status History Code Status Date Activated Date Inactivated Comments Full Code 05/09/2021 7:00 AM 05/09/2021 6:40 PM Question Answer Comments Full Code: Discussed Full Code 04/25/2021 5:50 AM 04/25/2021 7:47 PM Question Answer Comments Full Code: Discussed Care Teams Production Trainer Relationship Specialty Start Date End Date Elsewhere, Pcp PCP - General Internal Medicine 07/08/21
--- OUTSIDE RECORDS SUMMARY | 2022-03-28 16:27 | XMS_ITS | Encounter Summary ---
:1975 Author Organization [facility] Address [address] [place] [address] Care Team Providers Name Role Phone Elsewhere, Pcp Primary Care Provider Unavailable Encounter Details Date Type Department Care Team Description 03/13/2022 Ancillary Procedure Department of Marychuy Kapoor Neoplasm Radiology in M, MARINE STEAMFITTER, C.N.P., Of Ovary La terality [place], M.S.N. Unknown (HCC) [address] [place] [phone] Social History Tobacco Use Types Packs/Day Years [...] or relatives? How often do you attend hoahaoism or 1 to 4 times per year 02/09 jainism services? Do you belong to any clubs or Yes 02/26/2021 organizations such as hoahaoism groups, unions, fraternal or athletic groups, or [...] Appointment Laboratory Medicine Debbie Ivey M.D. [address] [place] [phone] 04/13/2022 Office Visit Oncology Walter Barnhart M.D., Ph.D. [address] [place] [address] [phone] documented as of this encounter Procedures Procedure [...] (HCC) documented in this encounter Care Teams Resident Programs Assistant Relationship Specialty Start Date End Date Elsewhere, Pcp PCP - General Internal Medicine 07/08/21 documented as of this encounter
--- OUTSIDE RECORDS SUMMARY | 2022-03-28 16:27 | XMS_ITS | Encounter Summary ---
:[address] [facility] Address [address] [place] [address] Care Team Providers Name Role Phone Elsewhere, Pcp Primary Care Provider Unavailable Encounter Details Date Type Department Care Team Description 01/03/2022 Hospital Encounter Department of Walter Barnhart ant Neoplasm Laboratory Medicine Kelly De La Cruz, Ph. D. Of Ovary Laterality and Pathology, [address] [place] [address] Unknown (HCC) [facility] in [facility] [address] [place] [phone] [place] [address] (Work) [place], [place] [phone] (Fax) [phone] Social History Tobacco Use Types Packs/Day Years [...] mouth 60 capsule 11 0 09/12/2021 daily. ktfdiyv-scih-eadmv-oreg-c Take 1 tablet by 0 isra 100 mg-150 mg- 50 mouth daily. mg-150 mg capsule documented as of this encounter Plan of Treatment Upcoming Encounters Date Type Specialty Care Team Description 04/11/2022 Clinical Communication Admitting/Central Scheduling 04/13/2022 Appointment Laboratory Medicine Debbie Ivey M.D. [address] [place] [phone] 04/13/2022 Office Visit Oncology Walter Barnhart M.D., Ph.D. [address] [place] [phone] documented as of this encounter Procedures Procedure [...] Signature HBs Antigen, S Negative Negative 01/03/2022 [facility] 1:32 PM CDT Specimen Anatomical Collection Method Collection Time Receive d Time (Source) Location / / Volume Laterality Blood (Blood, 01/03/2022 9:20 AM 01/04/20 22 Venous) CDT 12:23 PM CDT Walter Barnhart M.D., Ph.D. LAB MICROBIOLOGY - BLOOD O RDERABLES Performing Organization Address City/[facility] [place] Phon e Number [facility] [address] [place]ing[place] [place] [address] Laboratory Medicine and Pathology [address] [place] [address] Dr. MARQUEZ HCV Ab Scrn w/Reflex to HCV PCR, Serum (01/03/2022 9:20 AM CDT) athologist Signature HCV Ab Screen, Negative Negative 01/03/2022 [facility] S 1:49 PM CDT Comment: Cxkwkk-oz-edtgii ratio is <1.00 . Specimen Anatomical Collection Method Collection Time Receive d Time (Source) Location / / Volume Laterality Blood (Blood, 01/03/2022 9:20 AM 01/04/20 22 Venous) CDT 12:23 PM CDT Walter Barnhart M.D., Ph.D. LAB MICROBIOLOGY - BLOOD O RDERABLES Performing Organization Address City/[facility]/ZIP Code Phon e Number [facility] [address] [place] [address] [facility]ENTER [facility] [place] [address] Laboratory Medicine and Pathology [address] MARQUEZ HIV-1/-2 Ag and Ab Screen, Plasma (01/03/2022 9:20 AM CDT) athologist Signature HIV-1/-2 Ag Negative Negative 01/03/2022 [facility] and Ab Screen, 2:01 PM [...] Organization Address City/State/ZIP Code Phon e Number [facility] [address] MARQUEZ [place], [place] [address] [facility] [place] [address] Laboratory Medicine and Pathology [address] [place] [address] Dr. MARQUEZ Creatinine with Estimated GFR (01/03/2022 9:20 AM CDT) athologist Signature Creatinine 0.78 0.59 - 01/03/2022 DTL 1.04 mg/dL 10:17 AM CDT eGFR-Non >90 >=60 01/03/2022 D[facility] Black/ mL/min/BSA 10:17 AM CDT Tuvaluan Comment: ----ADDITIONAL INFORMATION---- Estimated GFR calculated using [...] Organization Address City/State/ZIP Code Phon e Number [facility] - 200 [place], [place] [address] [facility] [place] [address] Laboratories-[facility] 200 [facility] CBC with Differential, Blood (01/03/2022 9:20 AM [...] Ph.D. LAB BLOOD ADD-ON Performing Organization Address [facility] [place] Phon e Number [facility] - [address] [place], [place] [address] 05 [facility] [place], [place] [phone] [place] [address] 200 [facility] Bilirubin, Total (01/03/2022 9:20 AM CDT) P athologist Signature Bilirubin, 1.0 <=1.2 mg/dL 01/03/2022 D[facility] Total, S 10:17 AM CDT Specimen Anatomical Collection Method Collection Time Receive d Time (Source) Location / / Volume Laterality Blood (Blood, 01/03/2022 9:20 AM 01/04/20 22 Venous) CDT 10:00 AM CDT Walter Barnhart M.D., Ph.D. LAB BLOOD ADD-ON Performing Organization Address City/[facility] [place] Phon e Number [facility] - [address] [place], [place] [address] [address] [place], [place] [phone] [place] [address] (ABNORMAL) AST (Aspartate Aminotransferase) (01/03/2022 9:20 AM [...] Ph.D. LAB BLOOD ADD-ON Performing Organization Address City/State/[facility] [place] Phon e Number [facility] - [address] [place], [place] [address] [address] [place], [place] [phone] [place] [address] (ABNORMAL) Alkaline Phosphatase (01/03/2022 9:20 AM CDT) [...] Organization Address City/State/ZIP Code Phon e Number [facility] - [address] [place], [place] [address] [facility] [place] [address] Laboratories-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
--- OUTSIDE RECORDS SUMMARY | 2022-03-28 16:27 | XMS_ITS | Encounter Summary ---
:1975 Author Organization [facility] Address [address] [place] [address] Care Team Providers Name Role Phone Elsewhere, Pcp Primary Care Provider Unavailable Reason for Visit Reason Comments Alert Labs Encounter Details Date Type Department Care Team Description 03/03/2022 Clinical Communication Department of Oncology Malathi Bear, Alert [facility] in [facility] [phone] [address] [facility] (Work) [place] [address] Social History Tobacco Use Types Packs/Day Years [...] Laboratory Medicine Debbie Ivey M.D. [address] [place] [phone] 04/13/2022 Office Visit Oncology Walter Barnhart M.D., Ph.D. [address] [place] [phone] documented as of this encounter Procedures Procedure [...] External Lab Results (03/03/2022 1:45 PM CDT) P athologist Signature EXT Bilirubin, 1.5 0.1 - 1.5 OTHER (SPECIFY Total mg/dL IN PULP PLANT SUPERVISOR) Specimen (Source) Anatomical Collection Method Collection Time Re ceived Time Location / / Volume Laterality Blood 03/03/2022 1:45 PM CDT Historical Provider LAB BLOOD NON ADD-ON Performing Organization Address City/[facility] Code Phon e Number OTHER (SPECIFY IN PULP PLANT SUPERVISOR) OTHER (SPECIFY IN PULP PLANT SUPERVISOR) N/A Hematology/Oncology - Blood, External Lab Results (03/03/2022 1:45 PM CDT) athologist Signature EXT Cancer 6 OTHER (SPECIFY Antigen 125 (Ca IN PULP PLANT SUPERVISOR) 125) Comment: <=38 Specimen (Source) Anatomical Collection Method Collection Time Re ceived Time Location / / Volume Laterality Blood 03/03/2022 1:45 PM CDT Narrative This result has an attachment that is no t available. Historical Provider LAB BLOOD NON ADD-ON Performing Organization Address City/State/ZIP Code Phon e Number OTHER (SPECIFY IN PULP PLANT SUPERVISOR) OTHER (SPECIFY IN PULP PLANT SUPERVISOR) N/A (ABNORMAL) Hematology/Oncology - Blood, External Lab Results (03/03/2022 1:45 PM CDT) Analysis Performed At Patho logist Time Signature EXT Hemoglobin 13.0 12.0 - OTHER 16.0 (SPECIFY IN PULP PLANT SUPERVISOR) EXT Leukocytes 3.10 (A) 4.50 - OTHER 11.00 (SPECIFY IN PULP PLANT SUPERVISOR) EXT Absolute 0.90 (A) 1.7 - 7.0 OTHER Neutrophil (SPECIFY IN Count PULP PLANT SUPERVISOR) EXT Platelet 263 140 - 440 OTHER Count (SPECIFY IN PULP PLANT SUPERVISOR) EXT AST 53 (A) 12 - 35 OTHER (SPECIFY IN PULP PLANT SUPERVISOR) EXT ALT 27 4 - 35 OTHER (SPECIFY IN PULP PLANT SUPERVISOR) EXT Creatinine 0.6 0.5 - 1.5 OTHER mg/dL (SPECIFY IN PULP PLANT SUPERVISOR) EXT eGFR-Non 112 OTHER Black/ (SPECIFY IN [place] Islander PULP PLANT SUPERVISOR) Specimen (Source) Anatomical Collection Method Collection Time Re ceived Time Location / / Volume Laterality Blood 03/03/2022 1:45 PM CDT Narrative This result has an attachment that is no t available. Historical Provider LAB BLOOD NON ADD-ON Performing Organization Address City/State/ZIP Code Phon e Number OTHER (SPECIFY IN PULP PLANT SUPERVISOR) OTHER (SPECIFY IN PULP PLANT SUPERVISOR) N/A documented in this encounter Visit Diagnoses Not on filedocumented in this encounter Care Teams Linux Admin Relationship Specialty Start Date End Date Elsewhere, Pcp PCP - General Internal Medicine 07/08/21 documented as of this encounter
--- OUTSIDE RECORDS SUMMARY | 2022-03-28 16:27 | XMS_ITS | Encounter Summary ---
:1975 Author Organization [facility] Address [address] [place] [address] Care Team Providers Name Role Phone Elsewhere, Pcp Primary Care Provider Unavailable Encounter Details Date Type Department Care Team Description 02/07/2022 Specialty Pharmacy [facility] Michelle Mcclain, [address] Dorothy Briscoe Pharm.D., [place] [address] [address] [facility] [phone] [place] [phone] Social History Tobacco Use Types Packs/Day Years [...] were asked via phone by a patient health care coach. (reviewed at or around patient requested refill ) HISTORY OF PRESENT ILLNESS Ms. Angelica Yang is a 46 y.o. female, who is followed by the specialty pharmacy service for Zejula (niraparib) . (Indication: ovarian cancer) Patient reported reassessment questions and responses: Informant: patient How comfortable are you understanding the medication(s) you receive from [facility]?: Very Comfortable Side Effects Requiring Attention: [...] reviewing refill history in the [facility] record. The patient/caregiver reports appropriate [...] refer to the oncology provider's assessment/plan within [facility] on the following date: 01/03/2022. 4. [...] Laboratory Medicine Debbie Ivey M.D. [address] [place] [address] 04/13/2022 Office Visit Oncology Walter Barnhart M.D., Ph.D. [address] [place] [phone] documented as of this encounter Visit Diagnoses Not on filedocumented in this encounter Care Teams Spinning Frame Changer Relationship Specialty Start Date End Date Elsewhere, Pcp PCP - General Internal Medicine 07/08/21 documented as of this encounter
--- OUTSIDE RECORDS SUMMARY | 2022-03-28 16:27 | XMS_ITS | Encounter Summary ---
:1975 Author Organization [facility] Address [address] [place] [address] Care Team Providers Name Role Phone Elsewhere, Pcp Primary Care Provider Unavailable Reason for Visit Reason Comments Labs Only Encounter Details Date Type Department Care Team Description 03/20/2022 Clinical Communication Department of Oncology Malathi Bear, Labs Only in [facility] [phone] [address] [facility] (Work) [place] [address] Social History Tobacco Use Types Packs/Day Years [...] Telephone Encounter - Malathi Bear R.N. - 03/20/2022 11:52 AM CDT Addressed in another encounter documented in this encounter Plan of Treatment Upcoming Encounters Date Type Specialty Care Team Description 04/11/2022 Clinical Communication Admitting/Central Scheduling 04/13/2022 Appointment Laboratory Medicine Debbie Ivey M.D. [address] [place] [phone] 04/13/2022 Office Visit Oncology Walter Barnhart M.D., Ph.D. [address] [place] [phone] documented as of this encounter Visit Diagnoses Not on filedocumented in this encounter Care Teams Reconciler Relationship Specialty Start Date End Date Elsewhere, Pcp PCP - General Internal Medicine 07/08/21 documented as of this encounter
--- OUTSIDE RECORDS SUMMARY | 2022-03-28 16:27 | XMS_ITS | Encounter Summary ---
:1975 Author Organization [facility] Address [address] [place] [address] Care Team Providers Name Role Phone Elsewhere, Pcp Primary Care Provider Unavailable Encounter Details Date Type Department Care Team Description 02/08/2022 Clinical Communication Department of Walter Barnhart, Oncology in M.D., Ph.D. [place], [place] [address] [facility] [address] [place] [phone] Social History Tobacco Use Types Packs/Day Years [...] Laboratory Medicine Debbie Ivey M.D. [address] [place] [address] 04/13/2022 Office Visit Oncology Walter Barnhart M.D., Ph.D. [address] [place] [address] documented as of this encounter Visit Diagnoses Not on filedocumented in this encounter Care Teams Sequins Slinger Relationship Specialty Start Date End Date Elsewhere, Pcp PCP - General Internal Medicine 07/08/21 documented as of this encounter
--- OUTSIDE RECORDS SUMMARY | 2022-03-28 16:27 | XMS_ITS | Clinical Summary ---
:1975 Author Organization [facility] [place] [address] Care Team Providers Name Role Phone Aruna Medina [facility] Primary Care Provider Allergies Active Allergy Reactions [...] BABY GIRL ( KATHR YN) Delivery Location: [facility] Comments: ARSALAN:ALLEN AMARAL:MAURO Myles Last Filed [...] Completed 01/05/2010 Medical Devices Implanted Type Area Geologist Device Shelf Model / Identifier Expiration Serial / Lot Date Sling Miniarc Precise - [id number] N/A: [employer] 06/26/2015 [id number] / Implanted: Qty: 1 on 01/03/2013 by Ashley Gardner MD at [facility] / [id number] Description: MINI ARC 'PRECISE' MID-URET HRAL SLING Results Not on filefrom Last 3 Months Insurance Payer Benefit Plan / Subscriber ID Effective Dates Phone Addre ss Type Group BLUE [employer] [id number] 2016-Present [address] [address] [place] [address] Advance Directives Latest Code Status on File Code Status Date Activated Date Inactivated Comments Full Code 01/07/2013 8:40 AM 01/07/2013 11:39 AM Full Code 01/03/2010 2:08 PM 01/05/2010 4:29 PM Full Code 01/03/2010 6:21 AM 01/03/2010 6:52 AM Care Teams School Photographer Relationship Specialty Start Date End Date Aruna Medina CNM PCP - General Obstetrics and Gynecology 06/30/16
--- OUTSIDE RECORDS SUMMARY | 2022-03-28 16:27 | XMS_ITS | Encounter Summary ---
:1975 Author Organization [facility] Address [address] [place] [address] Care Team Providers Name Role Phone Elsewhere, Pcp Primary Care Provider Unavailable Encounter Details Date Type Department Care Team Description 01/03/2022 Infusion Department of Oncology Marcyhuy Kapoor, Malignant Neoplasm Of in [facility] rojelio CMM OPERATOR, C.N.P., Ovary Laterality [address] [facility] M.S.N. Unknown (HCC) [place], [place] [address] [facility] [address] [place], [place] [phone] (Wo rk) Social History Tobacco Use Types [...] 1 to 4 times per year 02/09 religion services? Do you belong to any clubs [...] Appointment Laboratory Medicine Debbie Ivey M.D. [address] [place] [phone] 04/13/2022 Office Visit Oncology Walter Barnhart M.D., Ph.D. 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
--- OUTSIDE RECORDS SUMMARY | 2022-03-28 16:28 | XMS_ITS | Encounter Summary ---
:1975 Author Organization [facility] Address [address] [place] [address] Care Team Providers Name Role Phone Elsewhere, Pcp Primary Care Provider Unavailable Encounter Details Date Type Department Care Team Description 10/14/2021 Specialty Pharmacy [facility] [place], Malignant Neoplasm Pharmacy Azucena Montes De Oca, Of Ovary Laterality [address] Pharm.D., R.P h. Unknown (HCC) [address] [facility] (Primary Dx) [place] [phone] Social History Tobacco Use Types Packs/Day Years [...] to males. ??? Educational resource/decision support tools: https://www.[employer]/en/miguel angelgucci and Patient SupportProgram ???My Start, My Way??? Kit. Also, ecoATM The patient was attentive and ready to learn. They verbalized understanding and are in agreement with the plan for taking this new regimen. They were advised to contact the prescriber concerning symptoms or side effects as mentioned above. The importance of adherence to the treatment plan was emphasized in regard to success of therapy. Allergy, past sensitivity, medication and health history considered at student financial services counselor (renal function if available). To optimize [...] apparent. Patient is eligible for service through [facility]. 2. Potential drug-drug interactions No [...] The patient has decided to use the [facility]. This patient does not meet the definition of high risk by [facility]SP definition. Follow-up: 1 month(s) Azucena Malagon, Pharm.D., R.Ph. documented in this encounter Plan of Treatment Upcoming Encounters Date Type Specialty Care Team Description 04/11/2022 Clinical Communication Admitting/Central Scheduling 04/13/2022 Appointment Laboratory Medicine Debbie Ivey M.D. [address] [place] [phone] 04/13/2022 Office Visit Oncology Walter Barnhart M.D., Ph.D. 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
--- OUTSIDE RECORDS SUMMARY | 2022-03-28 16:28 | XMS_ITS | Encounter Summary ---
:1975 Author Organization [facility] Address [address] [place] [address] Care Team Providers Name Role Phone Elsewhere, Pcp Primary Care Provider Unavailable Encounter Details Date Type Department Care Team Description 11/11/2021 Orders Only Pharmacy Prior Auth Paula Khan [phone] Social History Tobacco Use Types Packs/Day Years [...] or relatives? How often do you attend baptism or 1 to 4 times per year 02/09 quaker services? Do you belong to any clubs or Yes 02/26/2021 organizations such as baptism groups, unions, fraternal or athletic groups, or [...] Laboratory Medicine Debbie Ivey M.D. [address] [place] [phone] 04/13/2022 Office Visit Oncology Walter Barnhart M.D., Ph.D. [address] [place] [phone] documented as of this encounter Visit Diagnoses Not on filedocumented in this encounter Care Teams Call Center Operator Relationship Specialty Start Date End Date Elsewhere, Pcp PCP - General Internal Medicine 07/08/21 documented as of this encounter
--- OUTSIDE RECORDS SUMMARY | 2022-03-28 16:28 | XMS_ITS | Encounter Summary ---
:1975 Author Organization [facility] Address [address] [place] [address] Care Team Providers Name Role Phone Elsewhere, Pcp Primary Care Provider Unavailable Encounter Details Date Type Department Care Team Description 08/05/2021 Clinical Communication Department of Oncology Candie Monahan, [facility] [address] [facility] [address] [place] [phone] Social History Tobacco Use Types Packs/Day Years [...] Appointment Laboratory Medicine Debbie Ivey M.D. [address] [place] [phone] 04/13/2022 Office Visit Oncology Walter Barnhart M.D., Ph.D. [address] [place] [phone] documented as of this encounter Visit Diagnoses Not on filedocumented in this encounter Care Teams Docket Specialist Relationship Specialty Start Date End Date Elsewhere, Pcp PCP - General Internal Medicine 07/08/21 documented as of this encounter
--- OUTSIDE RECORDS SUMMARY | 2022-03-28 16:28 | XMS_ITS | Encounter Summary ---
:1975 Author Organization [facility] Address [address] [place] [address] Care Team Providers Name Role Phone Elsewhere, Pcp Primary Care Provider Unavailable Encounter Details Date Type Department Care Team Description 01/02/2022 Clinical Communication Visit Review in [place], [place] [address] [place], [place] [phone] Social History Tobacco Use Types Packs/Day Years [...] Appointment Laboratory Medicine Debbie Ivey M.D. [address] [place] [phone] 04/13/2022 Office Visit Oncology Walter Barnhart M.D., Ph.D. [address] [place] [phone] documented as of this encounter Visit Diagnoses Not on filedocumented in this encounter Care Teams Platform Engineer Relationship Specialty Start Date End Date Elsewhere, Pcp PCP - General Internal Medicine 07/08/21 documented as of this encounter
--- OUTSIDE RECORDS SUMMARY | 2022-03-28 16:28 | XMS_ITS | Encounter Summary ---
:1975 Author Organization [facility] Address [address] [place] [address] Care Team Providers Name Role Phone Elsewhere, Pcp Primary Care Provider Unavailable Reason for Visit Reason Comments Rx Prior Authorization [facility] DENIED - ZEJULA 100 MG Encounter Details Date Type Department Care Team Description 09/16/2021 Clinical Communication Pharmacy Prior Auth Hardeep Chan Rx Prior RO I. Authorization ([facility] [id number] DENIED - ZEJULA 100 (Work) MG) Social [...] Appointment Laboratory Medicine Debbie Ivey M.D. [address] [place] [phone] 04/13/2022 Office Visit Oncology Walter Barnhart M.D., Ph.D. [address] [place] [phone] documented as of this encounter Visit Diagnoses Not on filedocumented in this encounter Care Teams Alterations Tailor Relationship Specialty Start Date End Date Elsewhere, Pcp PCP - General Internal Medicine 07/08/21 documented as of this encounter
--- OUTSIDE RECORDS SUMMARY | 2022-03-28 16:28 | XMS_ITS | Encounter Summary ---
:1975 Author Organization [facility] Address [address] [place] [address] Care Team Providers Name Role Phone Elsewhere, Pcp Primary Care Provider Unavailable Encounter Details Date Type Department Care Team Description 09/12/2021 Orders Only Pharmacy Prior Auth Minerva Galindo [phone] Social History Tobacco Use Types Packs/Day Years [...] Laboratory Medicine Debbie Ivey M.D. [address] [place] [phone] 04/13/2022 Office Visit Oncology Walter Barnhart M.D., Ph.D. [address] [place] [phone] documented as of this encounter Visit Diagnoses Not on filedocumented in this encounter Care Teams Director Of Strategic Sales Relationship Specialty Start Date End Date Elsewhere, Pcp PCP - General Internal Medicine 07/08/21 documented as of this encounter
--- OUTSIDE RECORDS SUMMARY | 2022-03-28 16:28 | XMS_ITS | Encounter Summary ---
:1975 Author Organization [facility] Address [address] [place] [address] Care Team Providers Name Role Phone Elsewhere, Pcp Primary Care Provider Unavailable Reason for Referral Outpatient (Routine) - Closed Specialty Diagnoses / Procedures Referred By Contact Refer red To Contact Oncology Walter Barnhart M. D., Ph.D. [address] [phone] Referral ID Status Reason Start Date Expiration Date Visits Requ ested Visits Authorized [id number] Closed 08/11/2021 08/11/2022 1 1 CCO PRIMER MACHINE OPERATOR Reason for Visit Outpatient (Routine) - Closed Specialty Diagnoses / Procedures Referred By Contact Refer red To Contact Oncology Candie Monahan, APR N, C.N.P. [address] [phone] Referral ID Status Reason Start Date Expiration Date Visits Requ ested Visits Authorized [id number] Closed 05/30/2021 05/30/2022 1 1 Encounter Details Date Type Department Care Team Description 08/10/2021 Office Visit Department of Walter Barnhart, Malignant Neoplasm Of Oncology in MMickey., Ph.D. Ovary Laterality [place], [place] [address] [place] [address] Unknown (HCC) (Primary [address] [place] [address] Dx) [place] [phone] Social History Tobacco Use Types Packs/Day Years [...] Comments Blood Pressure 129/79 08/10/2021 12:55 PM TOBACCO PRIMER MACHINE OPERATOR Pulse 70 08/10/2021 12:55 PM TOBACCO PRIMER MACHINE OPERATOR Temperature 36.6 ??C (97.9 ??F) 08/10/2021 12:55 PM TOBACCO PRIMER MACHINE OPERATOR Respiratory Rate 16 08/10/2021 12:55 PM TOBACCO PRIMER MACHINE OPERATOR Oxygen Saturation 94% 08/10/2021 12:55 PM TOBACCO PRIMER MACHINE OPERATOR Inhaled Oxygen Concentration - - Weight 54.6 kg (120 lb 5.9 oz) 08/10/2021 12:55 PM TOBACCO PRIMER MACHINE OPERATOR Height 169.5 cm (5' 6.73) 08/10/2021 12:55 PM TOBACCO PRIMER MACHINE OPERATOR Body Mass Index 19 08/10/2021 12:55 PM TOBACCO PRIMER MACHINE OPERATOR documented in this encounter Progress Notes Walter Barnhart M.D., Ph.D. - 08/10/2021 1:00 PM CST SUBJECTIVE CHIEF COMPLAINT/REASON FOR VISIT Stage IVB high-grade serous ovarian cancer HISTORY OF PRESENT ILLNESS Oncology History Malignant Neoplasm Of Ovary Laterality Unknown (HCC) Genetic Testing and Tumor Genotyping Genetic testing in 2020; BRCAnalysis with [employer] panel from [employer] lab. Variant of Uncertain Significance (VUS) found in APC gene specifically named [id number] aka [id number]). Somatic testing: HRD Positive, BRCA negative 02/03/2021 [...] Chemotherapy CARBOplatin AUC 6 / PACLitaxel ( FARE COLLECTOR ) Start Date: 02/25/2021 Completed 3 cycles [...] Chemotherapy CARBOplatin AUC 6 / PACLitaxel ( FARE COLLECTOR ) Start Date: 02/25/2021 Adjuvant chemotherapy, cycles [...] obtain a baseline set of laboratory tests. Wewill then obtain labs weekly for a month [...] and/or coordination of care as described above. CCO PRIMER MACHINE OPERATOR documented in this encounter Plan of Treatment Upcoming Encounters Date Type Specialty Care Team Description 04/11/2022 Clinical Communication Admitting/Central Scheduling 04/13/2022 Appointment Laboratory Medicine Debbie Ivey M.D. [address] [place] [address] 04/13/2022 Office Visit Oncology Walter Barnhart M.D., Ph.D. [address] [place] [address] Scheduled Referrals Name Type Priority Associated Diagnoses Order [facility] Oncology office Outpatient Referral Routine Expec jace: visit (clinic) 11/10/2021, General; FARE COLLECTOR Expires: 11/11/2022 documented as of this encounter Visit Diagnoses Diagnosis Malignant Neoplasm Of Ovary Laterality U nknown (HCC) - Primary documented in this encounter Care Teams Acid Remover Relationship Specialty Start Date End Date Elsewhere, Pcp PCP - General Internal Medicine 07/08/21 documented as of this encounter
--- OUTSIDE RECORDS SUMMARY | 2022-03-28 16:28 | XMS_ITS | Encounter Summary ---
:1975 Author Organization [facility] Address [address] [place] [address] Care Team Providers Name Role Phone Elsewhere, Pcp Primary Care Provider Unavailable Encounter Details Date Type Department Care Team Description 08/04/2021 Hospital Encounter Department of Candie Monahan nt Neoplasm Laboratory Medicine E, DENNY, C.N .P. Of Ovary Laterality and Pathology, [address] [place] [address] Unknown (HCC) [facility], in [place], [place] [address] [place] [address] [place], [place] (Work) [phone] Social History Tobacco Use Types Packs/Day Years [...] 1 to 4 times per year 02/09 [employer]? Do you belong to any clubs [...] Sig Dispensed Refills Start Date End Date kwbgagt-umrt-ywunq-oreg- Take 1 tablet by 0 capryl 100 [...] Laboratory Medicine Debbie Ivey M.D. [address] [place] [phone] 04/13/2022 Office Visit Oncology Walter Barnhart M.D., Ph.D. [address] [place] [phone] documented as of this encounter Procedures Procedure Name Priority Date/Time Associated Comments Diagnosis CBC CHEMO - NO ALERTS Routine 08/04/2021 10:14 Malignant Neopl asm Results for this AM YARD DRIVER Of Ovary procedure are i n Laterality Unknown the resul ts (HCC) section. CANCER AG 125 (CA 125), Routine 08/04/2021 10:14 Malignant Juan plasm Results for this S AM YARD DRIVER Of Ovary procedure are i n Laterality Unknown the resul ts (HCC) section. ALANINE AMINOTRANSFERASE Routine 08/04/2021 10:14 Malignant Ne oplasm Results for this (ALT), S/P AM YARD DRIVER Of Ovary procedure are i n Laterality Unknown the resul ts (HCC) section. ASPARTATE Routine 08/04/2021 10:14 Malignant Neoplasm Resul ts for this AMINOTRANSFERASE (AST), AM YARD DRIVER Of Ovary proc edure are in S/P Laterality Unknown the resul ts (HCC) section. CREATININE WITH EGFR, Routine 08/04/2021 10:14 Malignant Neopl asm Results for this S/P AM YARD DRIVER Of Ovary procedure are i n Laterality Unknown the resul ts (HCC) section. BILIRUBIN DIRECT, S/P Routine 08/04/2021 10:14 Malignant Neopl asm Results for this AM YARD DRIVER Of Ovary procedure are i n Laterality Unknown the resul ts (HCC) section. BILIRUBIN, TOT, S/P Routine 08/04/2021 10:14 Malignant Neoplas m Results for this AM YARD DRIVER Of Ovary procedure are i n Laterality Unknown the resul ts (HCC) section. documented in this encounter Results Creatinine with Estimated GFR (08/04/2021 10:14 AM YARD DRIVER) P athologist Signature Creatinine 0.74 0.59 - 08/04/2021 DTL 1.04 mg/dL 11:11 AM YARD DRIVER eGFR-Non >90 >=60 08/04/2021 DTL Black/ mL/min/BSA 11:11 AM YARD DRIVER Australian Comment: ----ADDITIONAL INFORMATION---- Estimated GFR calculated using the 2009 CKD_EPI creatinine equation. eGFR-Black/ >90 >=60 mL/min/BSA 2021 11:11 AM YARD DRIVER DTL Comment: ----ADDITIONAL INFORMATION---- Estimated GFR calculated using the 2009 CKD_EPI creatinine equation. Specimen Anatomical Collection Method Collection Time Receive d Time (Source) Location / / Volume Laterality Blood (Blood, 08/04/2021 10:14 08/04/2021 Venous) AM YARD DRIVER 10:55 AM YARD DRIVER Candie [place] APRN, C.N.P. LAB BLOOD ADD-ON Performing Organization Address City/State/ZIP Code Phon e Number [facility] - [address] [place], [place] [address] [place] [address] Laboratories-[facility] [address] (ABNORMAL) CBC, Chemotherapy, No Alerts (08/04/2021 10:14 AM YARD DRIVER) Analysis Performed At Patho logist Time Signature Hemoglobin 13.0 11.6 - 08/04/2021 DTL 15.0 g/dL 10:50 AM YARD DRIVER Platelet Count 262 157 - 371 08/04/2021 DTL x10(9)/L 10:50 AM YARD DRIVER Leukocytes 3.2 (L) 3.4 - 9.6 08/04/2021 DTL x10(9)/L 10:50 AM YARD DRIVER Neutrophils 1.20 (L) 1.56 - 08/04/2021 DTL 6.45 10:50 AM YARD DRIVER x10(9)/L Specimen Anatomical Collection Method Collection Time Receive d Time (Source) Location / / Volume Laterality Blood (Blood, 08/04/2021 10:14 08/04/2021 Venous) AM YARD DRIVER 10:41 AM YARD DRIVER Sabine Garcia APRNN.P. LAB BLOOD ADD-ON Performing Organization Address City/[facility]/ZIP Code Phon e Number [facility] - [address] [place], [place] [address] [place] [address] [facility] [address] Cancer Antigen 125 (CA 125) (08/04/2021 10:14 AM YARD DRIVER) athologist Signature Cancer Ag 125 5 <46 U/mL 08/04/2021 [facility] (CA 125), S 2:33 PM YARD DRIVER Comment: ----ADDITIONAL INFORMATION---- The testing method is an electrochemilum inescence assay manufactured by [employer] and performed on the Michela system. [...] (Blood, 08/04/2021 10:14 08/04/2021 1:44 Venous) AM YARD DRIVER PM YARD DRIVER Sabine Garcia APRNN.P. LAB BLOOD ADD-ON Performing Organization Address City/[facility] Phon e Number [facility] [address] [place], [place] [address] [facility] [place] [address] Laboratory Medicine and Pathology [address] [place] Bilirubin, Direct (08/04/2021 10:14 AM YARD DRIVER) athologist Signature Bilirubin, <0.2 0.0 - 0.3 08/04/2021 [facility] Direct, S mg/dL 11:11 AM YARD DRIVER Specimen Anatomical Collection Method Collection Time Receive d Time (Source) Location / / Volume Laterality Blood (Blood, 08/04/2021 10:14 08/04/2021 Venous) AM YARD DRIVER 10:55 AM YARD DRIVER Candie [place] APRN, C.N.P. LAB BLOOD ADD-ON Performing Organization Address City/[facility]/ZIP Code Phon e Number [facility] - [address] [place], [place] [address] [place] [address] 200 [facility] Bilirubin, Total (08/04/2021 10:14 AM YARD DRIVER) P athologist Signature Bilirubin, 0.5 <=1.2 mg/dL 08/04/2021 DTL Total, S 11:11 AM YARD DRIVER Specimen Anatomical Collection Method Collection Time Receive d Time (Source) Location / / Volume Laterality Blood (Blood, 08/04/2021 10:14 08/04/2021 Venous) AM YARD DRIVER 10:55 AM YARD DRIVER Candie [place] APRN, C.N.P. LAB BLOOD ADD-ON Performing Organization Address City/[facility]/ZIP Code Phon e Number [facility] - [address] [place] [address] [address] [facility] AST (Aspartate Aminotransferase) (08/04/2021 10:14 AM YARD DRIVER) [facility] Method Time Signature Aspartate 32 8 - 43 08/04/2021 DTL Aminotransferase U/L 11:11 AM YARD DRIVER (AST), S Specimen Anatomical Collection Method Collection Time Receive d Time (Source) Location / / Volume Laterality Blood (Blood, 08/04/2021 10:14 08/04/2021 Venous) AM YARD DRIVER 10:55 AM YARD DRIVER Candie [place] APRN, C.N.P. LAB BLOOD ADD-ON Performing Organization Address City/State/ZIP Code Phon e Number [facility] - [address] [place], [place] [address] [place] [address] ALT (Alanine Aminotransferase) (08/04/2021 10:14 AM YARD DRIVER) [facility] Method Time Signature Alanine 23 7 - 45 08/04/2021 DTL Aminotransferase U/L 11:11 AM YARD DRIVER (ALT), S Specimen Anatomical Collection Method Collection Time Receive d Time (Source) Location / / Volume Laterality Blood (Blood, 08/04/2021 10:14 08/04/2021 Venous) AM YARD DRIVER 10:55 AM YARD DRIVER Candie [place] APRN, C.N.P. LAB BLOOD ADD-ON Performing Organization Address City/State/ZIP Code Phon e Number [facility] - [address] [place], [place] [address] [place] [address] Laboratories-[facility] [address] documented in this encounter Visit Diagnoses Diagnosis Malignant Neoplasm Of Ovary Laterality U nknown (HCC) documented in this encounter Care Teams Social Work Associate Relationship Specialty Start Date End Date Elsewhere, Pcp PCP - General Internal Medicine 07/08/21 documented as of this encounter
--- OUTSIDE RECORDS SUMMARY | 2022-03-28 16:28 | XMS_ITS | Encounter Summary ---
:1975 Author Organization [facility] Address [address] [place] [address] Care Team Providers Name Role Phone Elsewhere, Pcp Primary Care Provider Unavailable Reason for Visit Episode Based Medications (Routine) - Authorized Specialty Diagnoses / Procedures Referred By Contact Refer red To Contact Diagnoses Malignant Neoplasm Of Ovary Laterality Unknown (HCC) Walter Barnhart M.D., R [facility] Procedures CO CARBOPLATIN INJECTION CO PACLITAXEL INJECTION CO INJECTION, PEGFILGRASTIM 6MG CO DEXAMETHASONE SODIUM PHOS Ph.D. [address] [place] [address] [address] [place] [phone] Referral ID Status Reason Start Date Expiration Date Visits V isits Requested Authorized [id number] Authorized 02/17/2021 02/17/2022 12 12 Encounter Details Date Type Department Care Team Description 07/11/2021 Infusion Department of Oncology Marychuy Kapoor, Malignant Neoplasm Of Ovary Laterality Unknown (HCC) (Primary Dx); in [facility] rojelio FLUTE GRINDER, C.N.P., Neutropenia Drug Induced (HC C) [address] [facility] M.S.N. [place], [place] [address] [place] [phone] [place], [place] [phone] (Wo rk) Social History Tobacco Use Types [...] Appointment Laboratory Medicine Debbie Ivey M.D. 200 [place] [phone] 04/13/2022 Office Visit Oncology Walter Barnhart M.D., Ph.D. [address] [place] [address] documented as of this encounter Visit Diagnoses Diagnosis Malignant Neoplasm Of Ovary Laterality U nknown (HCC) - Primary Neutropenia Drug Induced (HCC) documented in this encounter Administered Medications Inactive Administered Medications - up to 3 most recent administrations Medication Order MAR Action Action Date Dose Rate Site CARBOplatin 700 mg in NaCl New Bag 07/11/2021 3:03 PM ENGINEERING AND OPERATIONS DIRECTOR 700 mg 690 mL/hr 0.9% 345 mL IVPB (PARAPLATIN) 700 mg (rounded from 697.8 mg, Target AUC = 6), intravenous, at 690 mL/hr, Administer over 30 Minutes, Once, On 1/31/22 at 1445, For 1 dose dexAMETHasone injection 8 mg (DECADRON) Given 07/11/2021 11:22 AM ENGINEERING AND OPERATIONS DIRECTOR 8 mg 8 mg, intravenous, Once, On Sun07/11/21 at 1115, For 1 dose, Give prior to PACLitaxel diphenhydrAMINE 50 mg in NaCl 0.9% New Bag 07/11/2021 11:44 AM ENGINEERING AND OPERATIONS DIRECTOR 50 mg 204 mL/hr IVPB (BENADRYL) 50 mg, intravenous, at 204 mL/hr, Administer over 15 Minutes, Once, On Sun07/11/21 at 1115, For 1 dose, Pre taxol. ivpb vs ivp to help with symptoms famotidine injection 20 mg (PEPCID) Given 07/11/2021 11:22 AM ENGINEERING AND OPERATIONS DIRECTOR 20 mg 20 mg, intravenous, Once, On [...] mg New Bag 07/11/2021 11:25 A M ENGINEERING AND OPERATIONS DIRECTOR 16 mg 232 mL/hr (ZOFRAN) 16 mg, intravenous, at 232 mL/hr, Administer over 15 Minutes, Once, On Sun07/11/21 at 1115, For 1 dose PACLitaxeL 288 mg in NaCl 0.9% New Bag 07/11/2021 12:31 PM ENGINEERING AND OPERATIONS DIRECTOR 288 mg 108 mL/hr (non-PVC) 323 mL IVPB (TAXOL) 288 mg (rounded from 285.25 mg = 175 mg/m2 ? 1.63 m2 Treatment Plan BSA from Measured weight), intravenous, at 108 mL/hr, Administer over 3 Hours, Once, On Sun07/11/21 at 1145, For 1 dose, Administer via 0.22 micron in-line filter. documented in this encounter Care Teams Parachute Cushion Installer Relationship Specialty Start Date End Date Elsewhere, Pcp PCP - General Internal Medicine 07/08/21 documented as of this encounter
--- OUTSIDE RECORDS SUMMARY | 2022-03-28 16:28 | XMS_ITS | Encounter Summary ---
:1975 Author Organization [facility] Address [address] [place] [address] Care Team Providers Name Role Phone Elsewhere, Pcp Primary Care Provider Unavailable Reason for Visit Reason Comments Labs Only Encounter Details Date Type Department Care Team Description 11/02/2021 Clinical Communication Department of Aruna Hernández , Labs Only Oncology in M.S.N., R.N. [place], [place] [address] [facility] [address] [place] [phone] Social History Tobacco Use Types Packs/Day Years [...] Appointment Laboratory Medicine Debbie Ivey M.D. [address] [place] [phone] 04/13/2022 Office Visit Oncology Walter Barnhart M.D., Ph.D. [address] [place] [phone] documented as of this encounter Procedures Procedure Name Priority Date/Time Associated Diagnosis Comme nts HEMATOLOGY/ONCOLOGY Routine 11/01/2021 1:15 PM Re sults for this - BLOOD, EXTERNAL CDT procedure are in LAB RESULTS the results section. documented in this encounter Results (ABNORMAL) Hematology/Oncology - Blood, External Lab Results (11/01/2021 1:15 PM CDT) P athologist Signature EXT Hemoglobin 13.1 12.0 - OTHER (SPECIFY 15.5 IN LIGHT ARMORED VEHICLE OFFICER) EXT Leukocytes 5.01 5.00 - OTHER (SPECIFY 10.00 IN LIGHT ARMORED VEHICLE OFFICER) EXT Absolute 2.60 1.70 - OTHER (SPECIFY Neutrophil 7.00 IN LIGHT ARMORED VEHICLE OFFICER) Count EXT Platelet 252 150 - 450 OTHER (SPECIFY Count IN LIGHT ARMORED VEHICLE OFFICER) EXT AST 45 (A) 12 - 35 OTHER (SPECIFY IN LIGHT ARMORED VEHICLE OFFICER) EXT ALT 21 4 - 35 OTHER (SPECIFY IN LIGHT ARMORED VEHICLE OFFICER) EXT Bilirubin, 1.0 0.1 - 1.5 OTHER (SPECIFY Total mg/dL IN LIGHT ARMORED VEHICLE OFFICER) EXT Creatinine 0.7 0.5 - 1.5 OTHER (SPECIFY mg/dL IN LIGHT ARMORED VEHICLE OFFICER) Specimen (Source) Anatomical Collection Method Collection Time Re ceived Time Location / / Volume Laterality Blood 11/01/2021 1:15 PM CDT Historical Provider LAB BLOOD NON ADD-ON Performing Organization Address City/State/RUST Code Phon e Number OTHER (SPECIFY IN LIGHT ARMORED VEHICLE OFFICER) OTHER (SPECIFY IN LIGHT ARMORED VEHICLE OFFICER) N/A documented in this encounter Visit Diagnoses Not on filedocumented in this encounter Care Teams Block Trimmer Relationship Specialty Start Date End Date Elsewhere, Pcp PCP - General Internal Medicine 07/08/21 documented as of this encounter
--- OUTSIDE RECORDS SUMMARY | 2022-03-28 16:28 | XMS_ITS | Encounter Summary ---
:1975 Author Organization [facility] Address [address] [place] [address] Care Team Providers Name Role Phone Elsewhere, Pcp Primary Care Provider Unavailable Reason for Visit Reason Comments Labs Only Encounter Details Date Type Department Care Team Description 09/13/2021 Clinical Communication Department of Mamie Rees Labs Only Oncology in D, M.S.N., R.N. [place], [place] [address] [facility] [address] [place] [phone] Social History Tobacco Use Types Packs/Day Years [...] Appointment Laboratory Medicine Debbie Ivey M.D. 200 [place] [phone] 04/13/2022 Office Visit Oncology Walter Barnhart M.D., Ph.D. 200 [place] [address] documented as of this encounter Procedures Procedure [...] 6 OTHER (SPECIFY Antigen 125 (Ca IN MOLD DESIGN ENGINEER) 125) Comment: <=38 EXT Immunoglobulin A (IgA), S OTHER (SPECIFY IN MOLD DESIGN ENGINEER) EXT Immunoglobulin D (IgD), S OTHER (SPECIFY IN MOLD DESIGN ENGINEER) EXT Immunoglobulin E (IgE), S OTHER (SPECIFY IN MOLD DESIGN ENGINEER) EXT Immunoglobulin G (IgG), S OTHER (SPECIFY IN MOLD DESIGN ENGINEER) EXT Immunoglobulin M (IgM), S OTHER (SPECIFY IN MOLD DESIGN ENGINEER) Specimen (Source) Anatomical Collection Method Collection Time Re ceived Time Location / / Volume Laterality Blood 09/12/2021 4:00 PM CDT Narrative This result has an attachment that is no t available. Historical Provider LAB BLOOD NON ADD-ON Performing Organization Address City/State/ZIP Code Phon e Number OTHER (SPECIFY IN MOLD DESIGN ENGINEER) OTHER (SPECIFY IN MOLD DESIGN ENGINEER) N/A (ABNORMAL) Hematology/Oncology - Blood, External Lab Results (09/12/2021 4:00 PM CDT) [facility] gist Method Time Signature EXT AST 38 (A) 12 - 35 OTHER (SPECIFY IN MOLD DESIGN ENGINEER) EXT ALT 26 4 - 35 OTHER (SPECIFY IN MOLD DESIGN ENGINEER) EXT Bilirubin, 1.2 0.1 - 1.5 OTHER Total mg/dL (SPECIFY IN MOLD DESIGN ENGINEER) EXT Creatinine 0.5 0.5 - 1.5 OTHER mg/dL (SPECIFY IN MOLD DESIGN ENGINEER) EXT Immunoglobulin OTHER A (IgA), S (SPECIFY IN MOLD DESIGN ENGINEER) EXT Immunoglobulin OTHER D (IgD), S (SPECIFY IN MOLD DESIGN ENGINEER) EXT Immunoglobulin OTHER E (IgE), S (SPECIFY IN MOLD DESIGN ENGINEER) EXT Immunoglobulin OTHER G (IgG), S (SPECIFY IN MOLD DESIGN ENGINEER) EXT Immunoglobulin OTHER M (IgM), S (SPECIFY IN MOLD DESIGN ENGINEER) Specimen (Source) Anatomical Collection Method Collection Time Re ceived Time Location / / Volume Laterality Blood 09/12/2021 4:00 PM CDT Historical Provider LAB BLOOD NON ADD-ON Performing Organization Address City/State/ZIP Code Phon e Number OTHER (SPECIFY IN MOLD DESIGN ENGINEER) OTHER (SPECIFY IN MOLD DESIGN ENGINEER) N/A Hematology/Oncology - Blood, External Lab Results (09/12/2021 4:00 PM CDT) [facility] gist Method Time Signature EXT Hemoglobin 13.6 12.0 - OTHER 15.5 (SPECIFY IN MOLD DESIGN ENGINEER) EXT Leukocytes 5.44 5.00 - OTHER 10.00 (SPECIFY IN MOLD DESIGN ENGINEER) EXT Absolute 2.80 1.70 - OTHER Neutrophil Count 7.00 (SPECIFY IN MOLD DESIGN ENGINEER) EXT Platelet Count 368 150 - 450 OTHER (SPECIFY IN MOLD DESIGN ENGINEER) EXT Immunoglobulin OTHER A (IgA), S (SPECIFY IN MOLD DESIGN ENGINEER) EXT Immunoglobulin OTHER D (IgD), S (SPECIFY IN MOLD DESIGN ENGINEER) EXT Immunoglobulin OTHER E (IgE), S (SPECIFY IN MOLD DESIGN ENGINEER) EXT Immunoglobulin OTHER G (IgG), S (SPECIFY IN MOLD DESIGN ENGINEER) EXT Immunoglobulin OTHER M (IgM), S (SPECIFY IN MOLD DESIGN ENGINEER) Specimen (Source) Anatomical Collection Method Collection Time Re ceived Time Location / / Volume Laterality Blood 09/12/2021 4:00 PM CDT Historical Provider LAB BLOOD NON ADD-ON Performing Organization Address City/State/[facility] Code Phon e Number OTHER (SPECIFY IN MOLD DESIGN ENGINEER) OTHER (SPECIFY IN MOLD DESIGN ENGINEER) N/A documented in this encounter Visit Diagnoses Not on filedocumented in this encounter Care Teams Chef De Cuisine Relationship Specialty Start Date End Date Elsewhere, Pcp PCP - General Internal Medicine 07/08/21 documented as of this encounter
--- OUTSIDE RECORDS SUMMARY | 2022-03-28 16:28 | XMS_ITS | Encounter Summary ---
:1975 Author Organization [facility] Address [address] [place] [address] Care Team Providers Name Role Phone Elsewhere, Pcp Primary Care Provider Unavailable Encounter Details Date Type Department Care Team Description 11/09/2021 Clinical Communication Visit Review in [place], [place] [address] [place], [place] [phone] Social History Tobacco Use Types Packs/Day Years [...] Laboratory Medicine Debbie Ivey M.D. [address] [place] [phone] 04/13/2022 Office Visit Oncology Walter Barnhart M.D., Ph.D. 200 [place] [phone] documented as of this encounter Visit Diagnoses Not on filedocumented in this encounter Care Teams Machine Stonecutter Relationship Specialty Start Date End Date Elsewhere, Pcp PCP - General Internal Medicine 07/08/21 documented as of this encounter
--- OUTSIDE RECORDS SUMMARY | 2022-03-28 16:28 | XMS_ITS | Encounter Summary ---
:1975 Author [address] 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 [address] [place] [phone] Referral ID Status Reason Start Date Expiration Date Visits Requ ested Visits Authorized [id number] Closed 12/22/2021 06/23/2022 1 1 Encounter Details Date Type Department Care Team Description 01/03/2022 Hospital Encounter Department of Walter Barnhart Malign ant Neoplasm Radiology, Angel De La Cruz M.D., Ph.D. Of Ovary Laterality [facility], in 200 [facility] Unknown (HCC) [facility] [phone] [place] [address] [place], [place] (Work) [phone] Social History Tobacco Use Types Packs/Day Years [...] mouth 60 capsule 11 0 09/12/2021 daily. [id number] Take 1 tablet by 0 isra 100 [...] Laboratory Medicine Debbie Ivey M.D. [address] [place] [phone] 04/13/2022 Office Visit Oncology Walter Barnhart M.D., Ph.D. [address] [place] [phone] documented as of this encounter Procedures Procedure [...] by the treating provider and reviewed by [facility] radiologist to increase sensitivity for detection [...] by the treating provider and reviewed by [facility] radiologist to increase sensitivity for detection [...] Orders documented in this encounter Care Teams Hot Molder Relationship Specialty Start Date End Date Elsewhere, Pcp PCP - General Internal Medicine 07/08/21 documented as of this encounter
--- OUTSIDE RECORDS SUMMARY | 2022-03-28 16:28 | XMS_ITS | Encounter Summary ---
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 [address] [place] [phone] Referral ID Status Reason Start Date Expiration Date Visits Requ ested Visits Authorized [id number] Closed 07/22/2021 08/19/2021 1 1 Encounter Details Date Type Department Care Team Description 08/04/2021 Hospital Encounter Department of Candie Monahan nt Neoplasm Radiology, Jeramy Box APRN, C.N.P. Of Ovary Laterality Building, in [address] [place] [address] Unknown (HCC) [place], [place] [address] [place] [phone] [place], [place] [phone] (Work) [phone] Social History Tobacco Use Types Packs/Day Years [...] Sig Dispensed Refills Start Date End Date jrqksbc-rfrt-ojshd-oreg- Take 1 tablet by 0 capryl 100 [...] Laboratory Medicine Debbie Ivey M.D. [address] [place] [address] 04/13/2022 Office Visit Oncology Walter Barnhart M.D., Ph.D. [address] [place] [address] documented as of this encounter Procedures Procedure Name Priority Date/Time Associated Comments Diagnosis CT ABDOMEN PELVIS RAD - Routine 08/04/2021 11:49 Malignant Resul ts for this WITH IV CONTRAST (most inpatients AM SCALPER OPERATOR Neoplasm Of Ovary pr ocedure are in and all Laterality the results outpatients) Unknown (HCC) section. CT CHEST WITH IV RAD - Routine 08/04/2021 11:49 Malignant Result s for this CONTRAST (most inpatients AM SCALPER OPERATOR Neoplasm Of Ovary proced ure are in and all Laterality the results outpatients) Unknown (HCC) section. documented in this encounter Results CT Abdomen Pelvis with IV Contrast (08/04/2021 11:49 AM SCALPER OPERATOR) Anatomical Region Laterality Modality Abdomen, Pelvis, Abdominal RST LOS, N/A Comp uted Tomography, Computed Abdominal ARZ LOS, Abdominal FLA LOS Aldo ography Specimen (Source) Anatomical Collection Method Collection Time Re ceived Time Location / / Volume Laterality 08/04/2021 11:44 AM SCALPER OPERATOR Impressions 08/04/2021 12:37 PM SCALPER OPERATOR New postoperative changes in the abdomen and pelvis for resection of the patient's ovarian carcinoma. No definite residual/ recurrent or metastatic disease. There is minimal soft tissue nodularity subjacent to the left hemidiaphragm that is technically indeterminant for postoperative change versus a metastatic implant and surveillance would likely be beneficial. Narrative 08/04/2021 12:37 PM SCALPER OPERATOR EXAM: ??CT ABDOMEN PELVIS WITH IV CONTRAST [...] Chest with IV Contrast (08/04/2021 11:49 AM SCALPER OPERATOR) Anatomical Region Laterality Modality Chest, Thoracic RST LOS, Thoracic ARZ N/A Co mputed Tomography, Computed LOS, Thoracic ARZ LOS, Thoracic FLA Rene graphy LOS Specimen (Source) Anatomical Collection Method Collection Time Re ceived Time Location / / Volume Laterality 08/04/2021 11:45 AM SCALPER OPERATOR Impressions 08/04/2021 2:17 PM SCALPER OPERATOR 1. No change since 05/02/2021. 2. Tiny pulmonary nodules are also uncha nged dating back to 02/11/2021, and though indeterminate, are most likely benign. Narrative 08/04/2021 2:17 PM SCALPER OPERATOR EXAM: CT CHEST WITH IV CONTRAST COMPARISON: [...] and presumably benign. Examination performed in conjunction [facility] separately reported CT of the abdomen/pelvis. Procedure [...] and presumably benign. Examination performed in conjunction [facility] separately reported CT of the abdomen/pelvis. IMPRESSION: [...] iohexol (OMNIPAQUE) dilution Given 08/04/2021 10:50 AM SCALPER OPERATOR 9,000 mg solution 9,000 mg iodine/1,000 mL water 9,000 mg, oral, Once in imaging, contrast, Starting on Misty 08/04/21 at 1049, For 1 dose, Imaging Protocol Orders, Mix iohexol 300 (Omnipaque?? 300) 30 mL with 970 mL water for a total volume of 1,000 mLs. Patient to drink mixture in 40 minutes. iohexoL 300 mg iodine/mL solution 1-200 mL Given 08/04/2021 11:35 AM SCALPER OPERATOR 100 mL (OMNIPAQUE) 1-200 mL, intravenous, Once in imaging, contrast, Starting on Misty 08/04/21 at 1049, For 1 dose, Imaging Protocol Orders, Dose per Radiant Medication Guidelines sodium chloride (PF) 0.9 % injection 1-1 00 mL Given 08/04/2021 11:35 AM SCALPER OPERATOR 50 mL 1-100 mL, intravenous, Once, On Misty 08/04/21 at 1100, For 1 dose, Imaging Protocol Orders documented in this encounter Care Teams Dredge Pipeman Relationship Specialty Start Date End Date Elsewhere, Pcp PCP - General Internal Medicine 07/08/21 documented as of this encounter
--- OUTSIDE RECORDS SUMMARY | 2022-03-28 16:28 | XMS_ITS | Encounter Summary ---
:1975 Author Organization [facility] Address [address] [place] [address] Care Team Providers Name Role Phone Elsewhere, Pcp Primary Care Provider Unavailable Encounter Details Date Type Department Care Team Description 07/11/2021 Clinical Communication Department of Walter Barnhart, Oncology in M.D., Ph.D. [place], [place] [address] [facility] [address] [place] [phone] Social History Tobacco Use Types Packs/Day Years [...] or relatives? How often do you attend taoist or 1 to 4 times per year 02/09 judaism services? Do you belong to any clubs or Yes 02/26/2021 organizations such as taoist groups, unions, fraternal or athletic groups, or [...] Appointment Laboratory Medicine Debbie Ivey M.D. [address] [place] [address] [phone] 04/13/2022 Office Visit Oncology Walter Barnhart M.D., Ph.D. [address] [place] [address] [phone] documented as of this encounter Visit Diagnoses Not on filedocumented in this encounter Care Teams Rehabilitation Tech Relationship Specialty Start Date End Date Elsewhere, Pcp PCP - General Internal Medicine 07/08/21 documented as of this encounter
--- OUTSIDE RECORDS SUMMARY | 2022-03-28 16:28 | XMS_ITS | Encounter Summary ---
:1975 Author Organization [facility] Address [address] [place] [address] Care Team Providers Name Role Phone Elsewhere, Pcp Primary Care Provider Unavailable Reason for Visit Outpatient (Routine) - Closed Specialty Diagnoses / Procedures Referred By Contact Refer red To Contact General Surgery Agnes Drew M.D. [place] [address] [place] [phone] Referral ID Status Reason Start Date Expiration Date Visits Requ ested Visits Authorized [id number] Closed 05/10/2021 05/10/2022 1 1 Encounter Details Date Type Department Care Team Description 08/09/2021 Telemedicine Division of Wilma Castro oplasm Of Hepatobiliary and G MTrent Ovary Laterality Pancreas Surgery in [address] Unknown (HCC) [place], [place] [address] [place] [phone] [place], [place] [phone] (Work) [phone] Social History Tobacco Use Types Packs/Day Years [...] 1 to 4 times per year 02/09 episcopal services? Do you belong to any clubs [...] needed with HPB surg -Continue following with [facility] CLASS[facility] Onc -Will continue to ask radiologists to comment on liver down the line, if LFTs become affected, can consider involving [facility], should improve off chemo ING AND CURING OPERATOR documented in this encounter Plan of Treatment Upcoming Encounters Date Type Specialty Care Team Description 04/11/2022 Clinical Communication Admitting/Central Scheduling 04/13/2022 Appointment Laboratory Medicine Debbie Ivey M.D. [address] [place] [address] [phone] 04/13/2022 Office Visit Oncology Walter Barnhart M.D., Ph.D. [address] [place] [address] [phone] documented as of this encounter Visit Diagnoses Diagnosis Malignant Neoplasm Of Ovary Laterality U nknown (HCC) documented in this encounter Care Teams Management Trainee Relationship Specialty Start Date End Date Elsewhere, Pcp PCP - General Internal Medicine 07/08/21 documented as of this encounter
--- OUTSIDE RECORDS SUMMARY | 2022-03-28 16:28 | XMS_ITS | Encounter Summary ---
:1975 Author Organization [facility] Address [address] [place] [address] Care Team Providers Name Role Phone Elsewhere, Pcp Primary Care Provider Unavailable Encounter Details Date Type Department Care Team Description 08/05/2021 Clinical Communication Department of Oncology Candie Monahan, in [facility] [place] [address] [facility] [address] [place] [phone] Social History Tobacco Use Types Packs/Day Years [...] Monahan APRN, C.N.P. - 08/05/2021 1:45 PM PLANTING MACHINE OPERATOR I returned a call to Ms. Yang [...] can look at the imaging with him. TING MACHINE OPERATOR documented in this encounter Plan of Treatment Upcoming Encounters Date Type Specialty Care Team Description 04/11/2022 Clinical Communication Admitting/Central Scheduling 04/13/2022 Appointment Laboratory Medicine Debbie Ivey M.D. [address] [place] [phone] 04/13/2022 Office Visit Oncology Walter Barnhart M.D., Ph.D. [address] [place] [address] documented as of this encounter Visit Diagnoses Not on filedocumented in this encounter Care Teams Manager Med Surg Relationship Specialty Start Date End Date Elsewhere, Pcp PCP - General Internal Medicine 07/08/21 documented as of this encounter
--- OUTSIDE RECORDS SUMMARY | 2022-03-28 16:28 | XMS_ITS | Encounter Summary ---
:1975 Author Organization [facility] Address [address] [place] [address] Care Team Providers Name Role Phone Elsewhere, Pcp Primary Care Provider Unavailable Reason for Visit Reason Comments Labs Only Encounter Details Date Type Department Care Team Description 12/13/2021 Clinical Communication Department of Oncology Malathi Bear, Labs Only in [facility] [phone] [address] [facility] (Work) [place] [address] Social History Tobacco Use Types Packs/Day Years [...] Appointment Laboratory Medicine Debbie Ivey M.D. [address] [place] [address] [phone] 04/13/2022 Office Visit Oncology Walter Barnhart M.D., Ph.D. [address] [place] [address] [phone] documented as of this encounter Procedures Procedure Name Priority Date/Time Associated Diagnosis Comme [facility] HEMATOLOGY/ONCOLOGY Routine 12/06/2021 1:39 PM Re sults for this - BLOOD, EXTERNAL CDT procedure are in LAB RESULTS the results section. documented in this encounter Results (ABNORMAL) Hematology/Oncology - Blood, External Lab Results (12/06/2021 1:39 PM CDT) P athologist Signature EXT Hemoglobin 14.1 12.0 - OTHER (SPECIFY 16.0 IN NEEDLE BAR MOLDER) EXT Leukocytes 4.78 4.50 - OTHER (SPECIFY 11.00 IN NEEDLE BAR MOLDER) EXT Absolute 2.42 1.7 - 7.0 OTHER (SPECIFY Neutrophil IN NEEDLE BAR MOLDER) Count EXT Platelet 268 140 - 440 OTHER (SPECIFY Count IN NEEDLE BAR MOLDER) EXT AST 50 (A) 12 - 35 OTHER (SPECIFY IN NEEDLE BAR MOLDER) EXT ALT 24 4 - 35 OTHER (SPECIFY IN NEEDLE BAR MOLDER) EXT Bilirubin, 1.0 0.1 - 1.5 OTHER (SPECIFY Total mg/dL IN NEEDLE BAR MOLDER) EXT Cancer 6 OTHER (SPECIFY Antigen 125 (Ca IN NEEDLE BAR MOLDER) 125) Comment: <=38 EXT Creatinine 0.7 0.5 - 1.5 mg/dL OTHER (SP ECIFY IN NEEDLE BAR MOLDER) Specimen (Source) Anatomical Collection Method Collection Time Re ceived Time Location / / Volume Laterality Blood 12/06/2021 1:39 PM CDT Narrative This result has an attachment that is no t available. Historical Provider LAB BLOOD NON ADD-ON Performing Organization Address City/State/ZIP Code Phon e Number OTHER (SPECIFY IN NEEDLE BAR MOLDER) OTHER (SPECIFY IN NEEDLE BAR MOLDER) N/A documented in this encounter Visit Diagnoses Not on filedocumented in this encounter Care Teams Ciso Relationship Specialty Start Date End Date Elsewhere, Pcp PCP - General Internal Medicine 07/08/21 documented as of this encounter
--- OUTSIDE RECORDS SUMMARY | 2022-03-28 16:28 | XMS_ITS | Encounter Summary ---
:1975 Author Organization [facility] Address [address] [place] [address] Care Team Providers Name Role Phone Elsewhere, Pcp Primary Care Provider Unavailable Reason for Visit Reason Comments Immunizations Encounter Details Date Type Department Care Team Description 07/08/2021 Clinical Communication Department of Denisha Oviedo Immunizations Obstetrics and E MTrent Gynecology in [address] [place] [address] [place] [phone] [place], [place] [phone] (Work) [phone] Social History Tobacco Use Types Packs/Day Years [...] or relatives? How often do you attend mandaen or 1 to 4 times per year 02/09 catholic services? Do you belong to any clubs or Yes 02/26/2021 organizations such as mandaen groups, unions, fraternal or athletic groups, or [...] Uribe APRN, C.N.P. - 07/08/2021 12:26 PM RADIOLOGIST DIAGNOSTIC Orders placed for her vaccines and an appointment for 07/11/21. Please schedule. OLOGIST DIAGNOSTIC Telephone Encounter - Arlene Archibald - 07/08/2021 12:11 PM CST Patient was to have immunizations at the [facility] today and she was turned away stating that she needed to establish care before they would give them to her. She wonders if these can be done when she comes for chemotherapy on Sunday, 07/11. The call was transferred from Medical Oncology. Per Jossie in Med Onc, their CLAMP OPERATOR said the orders would need to come from Dr. Oviedo. Please call patient to make necessary arrangements for Sunday if at all possible. OLOGIST DIAGNOSTIC documented in this encounter Plan of Treatment Upcoming Encounters Date Type Specialty Care Team Description 04/11/2022 Clinical Communication Admitting/Central Scheduling 04/13/2022 Appointment Laboratory Medicine Debbie Ivey M.D. 200 [place] [phone] 04/13/2022 Office Visit Oncology Walter Barnhart M.D., Ph.D. 200 [place] [phone] documented as of this encounter Visit Diagnoses Not on filedocumented in this encounter Care Teams Extruder Operator Helper Relationship Specialty Start Date End Date Elsewhere, Pcp PCP - General Internal Medicine 07/08/21 documented as of this encounter
--- OUTSIDE RECORDS SUMMARY | 2022-03-28 16:28 | XMS_ITS | Encounter Summary ---
:1975 Author Organization [facility] Address [address] [place] [address] Care Team Providers Name Role Phone Elsewhere, Pcp Primary Care Provider Unavailable Reason for Visit Reason Comments Labs Only Encounter Details Date Type Department Care Team Description 10/26/2021 Clinical Communication Department of Aruna Hernández , Labs Only Oncology in M.S.N., R.N. [place], [place] [address] [facility] [address] [place] [phone] Social History Tobacco Use Types Packs/Day Years [...] or relatives? How often do you attend latter day or 1 to 4 times per year 02/09 rastafari services? Do you belong to any clubs or Yes 02/26/2021 organizations such as latter day groups, unions, fraternal or athletic groups, or [...] Laboratory Medicine Debbie Ivey M.D. [address] [place] [phone] 04/13/2022 Office Visit Oncology Walter Barnhart M.D., Ph.D. [address] [place] [phone] documented as of this encounter Procedures Procedure [...] (A) 12 - 35 OTHER (SPECIFY IN LEAD ACCOUNTANT) EXT ALT 21 4 - 35 OTHER (SPECIFY IN LEAD ACCOUNTANT) EXT Bilirubin, 1.2 0.1 - 1.5 OTHER (SPECIFY Total mg/dL IN LEAD ACCOUNTANT) EXT Cancer 5 OTHER (SPECIFY Antigen 125 IN LEAD ACCOUNTANT) (Ca 125) Comment: <=38 EXT Creatinine 0.7 0.5 - 1.5 mg/dL OTHER (SP ECIFY IN LEAD ACCOUNTANT) Specimen (Source) Anatomical Collection Method Collection Time Re ceived Time Location / / Volume Laterality Blood 10/25/2021 1:00 PM CDT Narrative This result has an attachment that is no t available. Historical Provider LAB BLOOD NON ADD-ON Performing Organization Address City/State/ZIP Code Phon e Number OTHER (SPECIFY IN LEAD ACCOUNTANT) OTHER (SPECIFY IN LEAD ACCOUNTANT) N/A Hematology/Oncology - Blood, External Lab Results (10/25/2021 1:00 PM CDT) P athologist Signature EXT Hemoglobin 13.4 12.0 - OTHER (SPECIFY 15.5 IN LEAD ACCOUNTANT) EXT Leukocytes 5.10 5.00 - OTHER (SPECIFY 10.00 IN LEAD ACCOUNTANT) EXT Absolute 2.52 1.70 - OTHER (SPECIFY Neutrophil 7.00 IN LEAD ACCOUNTANT) Count EXT Platelet 287 150 - 450 OTHER (SPECIFY Count IN LEAD ACCOUNTANT) Specimen (Source) Anatomical Collection Method Collection Time Re ceived Time Location / / Volume Laterality Blood 10/25/2021 1:00 PM CDT Narrative This result has an attachment that is no t available. Historical Provider LAB BLOOD NON ADD-ON Performing Organization Address City/State/ZIP Code Phon e Number OTHER (SPECIFY IN LEAD ACCOUNTANT) OTHER (SPECIFY IN LEAD ACCOUNTANT) N/A documented in this encounter Visit Diagnoses Not on filedocumented in this encounter Care Teams Camp Manager Relationship Specialty Start Date End Date Elsewhere, Pcp PCP - General Internal Medicine 07/08/21 documented as of this encounter
--- OUTSIDE RECORDS SUMMARY | 2022-03-28 16:28 | XMS_ITS | Encounter Summary ---
:1975 Author Organization [facility] Address [address] [place] [address] Care Team Providers Name Role Phone Elsewhere, Pcp Primary Care Provider Unavailable Encounter Details Date Type Department Care Team Description 09/16/2021 Orders Only Pharmacy Prior Auth Melanie Pickens I. [phone] Social History Tobacco Use Types Packs/Day Years [...] Laboratory Medicine Debbie Ivey M.D. [address] [place] [phone] 04/13/2022 Office Visit Oncology Walter Barnhart M.D., Ph.D. [address] [place] [phone] documented as of this encounter Visit Diagnoses Not on filedocumented in this encounter Care Teams Lead Sustainability Specialist Relationship Specialty Start Date End Date Elsewhere, Pcp PCP - General Internal Medicine 07/08/21 documented as of this encounter
--- OUTSIDE RECORDS SUMMARY | 2022-03-28 16:28 | XMS_ITS | Encounter Summary ---
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 [address] [place], [place] [phone] Referral ID Status Reason Start Date Expiration Date Visits Requ ested Visits Authorized [id number] Closed 12/22/2021 06/23/2022 1 1 Outpatient (Routine) - Closed Specialty Diagnoses / Procedures Referred By Contact Refer red To Contact Oncology Walter Barnhart M. D., Ph.D. [facility] [address] [place] [phone] Referral ID Status Reason Start Date Expiration Date Visits Requ ested Visits Authorized [id number] Closed 11/10/2021 11/10/2022 1 1 MRI/CAT/PET Scan (Routine) - Closed Specialty Diagnoses / Procedures Referred By Contact Refer red To Contact Radiology Diagnoses Malignant Neoplasm Of Ovary Laterality Unknown (HCC) Walter Barnhart M.D., [facility] Procedures CT Chest with IV Contrast [place] CT THORAX W CNTRST Ph.D. [address] [place] [phone] Referral ID Status Reason Start Date Expiration Date Visits Requ ested Visits Authorized [id number] Closed 12/22/2021 06/23/2022 1 1 Reason for Visit Outpatient (Routine) - Closed Specialty Diagnoses / Procedures Referred By Contact Refer red To Contact Oncology Walter Barnhart M. D., Ph.D. [facility] [address] [place] [phone] Referral ID Status Reason Start Date Expiration Date Visits Requ ested Visits Authorized [id number] Closed 08/11/2021 08/11/2022 1 1 Encounter Details Date Type Department Care Team Description 11/10/2021 Office Visit Department of Walter Barnhart, Malignant Neoplasm Of Oncology in M.Karoline, Ph.D. Ovary Laterality [place], [place] [address] [place] [address] Unknown (HCC) (Primary [address] [place] [address] Dx) [place] [phone] Social History Tobacco Use Types Packs/Day Years [...] Body Mass Index 19.28 08/10/2021 12:55 PM DIRECTOR OF REVENUE CYCLE MANAGEMENT documented in this encounter Progress Notes Walter Barnhart M.D., Ph.D. - 11/10/2021 3:20 PM CDT SUBJECTIVE CHIEF COMPLAINT/REASON FOR VISIT Stage IVB high-grade serous ovarian cancer HISTORY OF PRESENT ILLNESS Oncology History Malignant Neoplasm Of Ovary Laterality Unknown (HCC) Genetic Testing and Tumor Genotyping Genetic testing in 2020; BRCAnalysis with MyRisk panel from [facility]. Variant of Uncertain Significance (VUS) found in APC gene specifically named [id number] aka [id number]). Somatic testing: HRD Positive, BRCA negative 02/03/2021 [...] Chemotherapy CARBOplatin AUC 6 / PACLitaxel ( TENTERING MACHINE FEEDER ) Start Date: 02/25/2021 Completed 3 cycles [...] Chemotherapy CARBOplatin AUC 6 / PACLitaxel ( TENTERING MACHINE FEEDER ) Start Date: 02/25/2021 Adjuvant chemotherapy, cycles [...] Laboratory Medicine Debbie Ivey M.D. [address] [place] [phone] 04/13/2022 Office Visit Oncology Walter Barnhart M.D., Ph.D. [address] [place] [phone] Scheduled Referrals Name Type Priority Associated Diagnoses [facility] Outpatient Referral Routine Expec jace: visit (clinic) 02/09/2022, General; TENTERING MACHINE FEEDER Expires: 02/10/2023 documented as of this encounter [...] by the treating provider and reviewed by lourdes mcdonald radiologist to increase sensitivity for detection of [...] Signature HBs Antigen, S Negative Negative 01/03/2022 [facility] 1:32 PM CDT Specimen Anatomical Collection Method Collection Time Receive d Time (Source) Location / / Volume Laterality Blood (Blood, 01/03/2022 9:20 AM 01/04/20 Venous) CDT 12:23 PM CDT Walter Barnhart M.D., Ph.D. LAB MICROBIOLOGY - BLOOD O ELVI Performing Organization Address [facility] Code Phon e Number [facility] [address] MARQUEZ [address] [place] [address] Laboratory Medicine and Pathology [address] [place] [address] Dr. MARQUEZ HCV Ab Scrn w/Reflex to HCV PCR, Serum (01/03/2022 9:20 AM CDT) athologist Signature HCV Ab Screen, Negative Negative 01/03/2022 [facility] S 1:49 PM CDT Comment: Hkmzwc-rm-ypawzo ratio is <1.00 . Specimen Anatomical Collection Method Collection Time Receive d Time (Source) Location / / Volume Laterality Blood (Blood, 01/03/2022 9:20 AM 01/04/20 Venous) CDT 12:23 PM CDT Wlater Barnhart M.D., Ph.D. LAB MICROBIOLOGY - BLOOD O ELVI Performing Organization Address City/[facility] Code Phon e Number [address] MARQUEZ [place] [address] [address] [place] [address] Laboratory Medicine and Pathology [address] [place] [address] Dr. MARQUEZ HIV-1/-2 Ag and Ab Screen, Plasma (01/03/2022 9:20 AM CDT) athologist Signature HIV-1/-2 Ag Negative Negative 01/03/2022 [facility] and Ab Screen, 2:01 PM [...] Organization Address City/State/ZIP Code Phon e Number [address] MARQUEZ [place] [address] [address] [place] [address] Laboratory Medicine and Pathology [address] [place] [address] Dr. MARQUEZ Creatinine with Estimated GFR (01/03/2022 9:20 AM CDT) athologist Signature Creatinine 0.78 0.59 - 01/03/2022 [facility] 1.04 mg/dL 10:17 AM CDT eGFR-Non >90 >=60 01/03/2022 [facility] Black/ mL/min/BSA 10:17 AM CDT Macanese Comment: ----ADDITIONAL INFORMATION---- Estimated GFR calculated using [...] Organization Address City/State/ZIP Code Phon e Number [facility] 200 [place], [place] [address] [facility] [place] [address] [facility] 200 [facility] CBC with Differential, Blood (01/03/2022 9:20 [...] Ph.D. LAB BLOOD ADD-ON Performing Organization Address City/[facility]/ZIP Code Phon e Number [facility] - [address] [place], [place] [address] 200 [facility] Bilirubin, Total (01/03/2022 9:20 AM CDT) P athologist Signature Bilirubin, 1.0 <=1.2 mg/dL 01/03/2022 [facility] Total, S 10:17 AM CDT Specimen Anatomical Collection Method Collection Time Receive d Time (Source) Location / / Volume Laterality Blood (Blood, 01/03/2022 9:20 AM 01/04/20 Venous) CDT 10:00 AM CDT Walter Barnhart M.D., Ph.D. LAB BLOOD ADD-ON Performing Organization Address City/[facility] Phon e Number [facility] - [address] (ABNORMAL) AST (Aspartate Aminotransferase) (01/03/2022 9:20 AM [...] Ph.D. LAB BLOOD ADD-ON Performing Organization Address City/[facility] Phon e Number [facility] [address] (ABNORMAL) Alkaline Phosphatase (01/03/2022 9:20 AM [...] Organization Address City/State/ZIP Code Phon e Number [facility] [address] [place], [place] [address] [facility] [place] [address] [facility] [address] documented in this encounter Visit Diagnoses Diagnosis Malignant Neoplasm Of Ovary Laterality U nknown (HCC) - Primary Malignant Neoplasm Of Ovary Laterality U nknown (HCC) documented in this encounter Care Teams Silk Screen Printer Relationship Specialty Start Date End Date Elsewhere, Pcp PCP - General Internal Medicine 07/08/21 documented as of this encounter
--- OUTSIDE RECORDS SUMMARY | 2022-03-28 16:28 | XMS_ITS | Encounter Summary ---
:1975 Author Organization [facility] Address [address] [place] [address] Care Team Providers Name Role Phone Elsewhere, Pcp Primary Care Provider Unavailable Reason for Visit Reason Comments Immunizations Encounter Details Date Type Department Care Team Description 07/11/2021 Nurse Only Section of Preventive, Jessica Uribe, Gisselle munizations Transportation and DENNY C.N.P. Occupational Medicine in [address] [place] [address] [place] [phone] [place] [phone] Social History Tobacco Use Types Packs/Day Years [...] Laboratory Medicine Debbie Ivey M.D. [address] [place] [phone] 04/13/2022 Office Visit Oncology Walter Barnhart M.D., Ph.D. [address] [place] [phone] documented as of this encounter Visit Diagnoses Diagnosis Neutropenia Drug Induced (HCC) - Primary documented in this encounter Care Teams Assistant Professor Of Radiology Relationship Specialty Start Date End Date Elsewhere, Pcp PCP - General Internal Medicine 07/08/21 documented as of this encounter
--- OUTSIDE RECORDS SUMMARY | 2022-03-28 16:28 | XMS_ITS | Encounter Summary ---
:1975 Author Organization [facility] Address [address] [place] [address] Care Team Providers Name Role Phone Elsewhere, Pcp Primary Care Provider Unavailable Reason for Visit Episode Based Medications (Routine) - Authorized Specialty Diagnoses / Procedures Referred By Contact Refer red To Contact Diagnoses Malignant Neoplasm Of Ovary Laterality Unknown (HCC) Walter Barnhart M.D., [facility] Procedures DC CARBOPLATIN INJECTION DC PACLITAXEL INJECTION DC INJECTION, PEGFILGRASTIM 6MG DC DEXAMETHASONE SODIUM PHOS Ph.D. [address] [facility] [address] [place] [phone] Referral ID Status Reason Start Date Expiration Date Visits V isits Requested Authorized [id number] Authorized 02/17/2021 02/17/2022 12 12 Encounter Details Date Type Department Care Team Description 07/11/2021 Office Visit Department of Marychuy Kapoor Malignan t Neoplasm Of Ovary Laterality Unknown (HCC); Oncology in GLOBAL COMPENSATION DIRECTOR, C.N.P., Neutropenia Dr hannah Lorenzo (HCC) [place], [place] M.S.N. [address] [facility] [address] [place] [phone] Social History Tobacco Use Types Packs/Day Years [...] Comments Blood Pressure 149/97 07/11/2021 9:41 AM ENTERER Pulse 73 07/11/2021 9:41 AM ENTERER Temperature 36.6 ??C (97.9 ??F) 07/11/2021 9:41 AM ENTERER Respiratory Rate 16 07/11/2021 9:41 AM ENTERER Oxygen Saturation 100% 07/11/2021 9:41 AM ENTERER Inhaled Oxygen Concentration - - Weight 55.7 kg (122 lb 12.7 oz) 07/11/2021 9:41 AM ENTERER Height 169.2 cm (5' 6.61) 07/11/2021 9:41 AM ENTERER Body Mass Index 19.46 07/11/2021 9:41 AM ENTERER documented in this encounter Progress Notes Marychuy Kapoor APRN, C.N.P., M.S.N. - 07/11/2021 9:40 AM CST CHIEF COMPLAINT/PUPROSE OF VISIT: Ms. Yang is a 45 y.o. woman with stage IVB high-grade serous ovarian cancer Collaborating provider: Dr. Walter Barnhart [phone]) HISTORY OF PRESENT ILLNESS: Ms. Yang is a very pleasant 45 y.o. woman with the following oncologic history: Oncology History Malignant Neoplasm Of Ovary Laterality Unknown (HCC) Genetic Testing and Tumor Genotyping Genetic testing in 2020; BRC[facility] with [facility] panel from [facility]. Variant of Uncertain Significance (VUS) found in APC gene specifically named [id number] aka [id number]). Somatic testing ordered 06/22/21 02/03/2021 Other Ultrasound [...] Chemotherapy CARBOplatin AUC 6 / PACLitaxel ( ASSEMBLER SEMICONDUCTOR ) Start Date: 02/25/2021 Completed 3 cycles [...] Chemotherapy CARBOplatin AUC 6 / PACLitaxel ( ASSEMBLER SEMICONDUCTOR ) Start Date: 02/25/2021 Adjuvant chemotherapy, cycles [...] plan; patient expressed understanding of the content. RER documented in this encounter Plan of Treatment Upcoming Encounters Date Type Specialty Care Team Description 04/11/2022 Clinical Communication Admitting/Central Scheduling 04/13/2022 Appointment Laboratory Medicine Debbie Ivey M.D. [address] [place] [phone] 04/13/2022 Office Visit Oncology Walter Barnhart M.D., Ph.D. [address] [place] [address] documented as of this encounter Visit Diagnoses Diagnosis 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 Care Teams Heel Painter Relationship Specialty Start Date End Date Elsewhere, Pcp PCP - General Internal Medicine 07/08/21 documented as of this encounter
--- OUTSIDE RECORDS SUMMARY | 2022-03-28 16:29 | XMS_ITS | Encounter Summary ---
:1975 Author Organization [facility] Address [address] [place] [address] Care Team Providers Name Role Phone Unavailable Primary Care Provider Unavailable Reason for Visit Reason Comments Communication Encounter Details Date Type Department Care Team Description 06/17/2021 Clinical Communication Department of System, Provider Communication Obstetrics and Not In Gynecology in [place], [place] [address] [place] [address] Social History Tobacco Use Types Packs/Day Years [...] this encounter Miscellaneous Notes Telephone Encounter - Jose MariaBrenda Carly - 06/17/2021 10:56 AM CST A message has been left for patient to return a call. She had sent a an on line message asking to reschedule her post op visit. Please assist with rescheduling with an NPPA for the post op visit. She will need to have a pelvic exam RICT CLAIMS MANAGER documented in this encounter Plan of Treatment Upcoming Encounters Date Type Specialty Care Team Description 04/11/2022 Clinical Communication Admitting/Central Scheduling 04/13/2022 Appointment Laboratory Medicine Debbie Ivey M.D. [address] [place] [phone] 04/13/2022 Office Visit Oncology Walter Barnhart M.D., Ph.D. [address] [place] [phone] documented as of this encounter Visit Diagnoses Not on filedocumented in this encounter
--- OUTSIDE RECORDS SUMMARY | 2022-03-28 16:29 | XMS_ITS | Encounter Summary ---
:1975 Author Organization [facility] Address [address] [place] [address] Care Team Providers Name Role Phone Elsewhere, [...] Ph.D. [address] [place] [phone] Referral ID Status Reason Start Date Expiration Date Visits V isits Requested Authorized [id number] Authorized 02/17/2021 02/17/2022 12 12 Encounter Details Date Type Department Care Team Description 07/08/2021 Hospital Encounter Department of Marychuy Kapoor Neoplasm Of Ovary Laterality Unknown (HCC); Laboratory Medicine M, OCCUPATIONAL THERAPIST ASSISTANTS, C.N.P., Neut ropenia Drug Induced ([facility]CC) [facility] [address] [facility] [address] [place] [phone] Social History Tobacco Use Types Packs/Day Years [...] Sig Dispensed Refills Start Date End Date jtkxidd-zxgq-byxvo-oreg- Take 1 tablet by 0 capryl 100 [...] Appointment Laboratory Medicine Debbie Ivey M.D. 200 [place] [phone] 04/13/2022 Office Visit Oncology Walter Barnhart M.D., Ph.D. 200 [place] [phone] documented as of this encounter Procedures Procedure Name Priority Date/Time Associated Comments Diagnosis CBC CHEMO - NO ALERTS Routine 07/08/2021 11:21 Malignant Neopl asm Results for this AM FURNACE CLERK Of Ovary procedure are i n Laterality Unknown the resul ts (HCC) section. Neutropenia Drug Induced (HCC) CANCER AG 125 (CA 125), Routine 07/08/2021 11:21 Malignant Juan plasm Results for this S AM FURNACE CLERK Of Ovary procedure are i n Laterality Unknown the resul ts (HCC) section. Neutropenia Drug Induced (HCC) ASPARTATE Routine 07/08/2021 11:21 Malignant Neoplasm Resul ts for this AMINOTRANSFERASE (AST), AM FURNACE CLERK Of Ovary proc edure are in S/P Laterality Unknown the resul ts (HCC) section. Neutropenia Drug Induced (HCC) CREATININE WITH EGFR, Routine 07/08/2021 11:21 Malignant Neopl asm Results for this S/P AM FURNACE CLERK Of Ovary procedure are i n Laterality Unknown the resul ts (HCC) section. Neutropenia Drug Induced (HCC) BILIRUBIN, TOT, S/P Routine 07/08/2021 11:21 Malignant Neoplas m Results for this AM FURNACE CLERK Of Ovary procedure are i n Laterality Unknown the resul ts (HCC) section. Neutropenia Drug Induced (HCC) documented in this encounter Results Creatinine with Estimated GFR (07/08/2021 11:21 AM FURNACE CLERK) athologist Signature Creatinine 0.65 0.59 - 07/08/2021 [facility] 1.04 mg/dL 12:51 PM FURNACE CLERK eGFR-Black/Afric >90 >=60 07/08/2021 [facility] an Vietnamese mL/min/BSA 12:51 PM FURNACE CLERK Comment: ----ADDITIONAL INFORMATION---- Estimated GFR calculated using the 2009 CKD_EPI creatinine equation. eGFR Non-Black/ >90 >=60 mL/min/BSA 07/08/2021 12:51 PM FURNACE CLERK NPRG Comment: ----ADDITIONAL INFORMATION---- Estimated GFR calculated using the 2009 CKD_EPI creatinine equation. Specimen Anatomical Collection Method Collection Time Receive d Time (Source) Location / / Volume Laterality Blood (Blood, 07/08/2021 11:21 07/08/2021 Venous) AM FURNACE CLERK 12:02 PM FURNACE CLERK Marychuy Kapoor APRN, C.N.P., M.S.N. LAB BLOOD ADD-ON Performing Organization Address City/State/ZIP Code Phon e Number [facility]- [address] [place] [address] [place] [address] [place] [address] [facility] [address] (ABNORMAL) CBC, Chemotherapy, No Alerts (07/08/2021 11:21 AM F[place]NACE CLERK) Analysis Performed At Patho logist Time Signature Hemoglobin 11.3 (L) 11.6 - 07/08/2021 NPR[facility] 15.0 g/dL 12:20 PM FURNACE CLERK Platelet Count 418 (H) 157 - 371 07/08/2021 [facility] x10(9)/L 12:20 PM FURNACE CLERK Leukocytes 4.6 3.4 - 9.6 07/08/2021 NPR[facility] x10(9)/L 12:20 PM FURNACE CLERK Neutrophils 2.09 1.56 - 07/08/2021 NPR[facility] 6.45 12:20 PM FURNACE CLERK x10(9)/L Specimen Anatomical Collection Method Collection Time Receive d Time (Source) Location / / Volume Laterality Blood (Blood, 07/08/2021 11:21 07/08/2021 Venous) AM FURNACE CLERK 12:02 PM FURNACE CLERK Sabine Correa APRNNAnthony., M.S.N. LAB BLOOD ADD-ON Performing Organization Address City/[facility] Code Phon e Number [address] LAB NPRG [address] Bilirubin, Total (07/08/2021 11:21 AM FURNACE CLERK) P athologist Signature Bilirubin, 0.4 <=1.2 mg/dL 07/08/2021 NPR[facility] Total, P 12:51 PM FURNACE CLERK Specimen Anatomical Collection Method Collection Time Receive d Time (Source) Location / / Volume Laterality Blood (Blood, 07/08/2021 11:21 07/08/2021 Venous) AM FURNACE CLERK 12:02 PM FURNACE CLERK Carly Correa APRN.N.P., M.S.N. LAB BLOOD ADD-ON Performing Organization Address [facility] Phon e Number [place] [address] [address] [facility] NPRG [place] [id number] AST (Aspartate Aminotransferase) (07/08/2021 11:21 AM FURNACE CLERK) Patholo gist Method Time Signature Aspartate 35 8 - 43 07/08/2021 NPR[facility] Aminotransferase U/L 12:51 PM FURNACE CLERK (AST), P Specimen Anatomical Collection Method Collection Time Receive d Time (Source) Location / / Volume Laterality Blood (Blood, 07/08/2021 11:21 07/08/2021 Venous) AM FURNACE CLERK 12:02 PM FURNACE CLERK Marychuy Kapoor APRN, C.N.P., M.S.N. LAB BLOOD ADD-ON Performing Organization Address City/[facility] Code Phon e Number [facility]- [address] [place], [place] [address] [facility] [facility] NPRG [facility] [place] [address] [place] [address] [place] Cancer Antigen 125 (CA 125) (07/08/2021 11:21 AM FURNACE CLERK) P athologist Signature Cancer Ag 125 8 <46 U/mL 07/08/2021 AUST (CA 125), S 10:31 PM FURNACE CLERK Comment: Biotin has been identified by the daisy sarabiar as a potential interfering substance. ??Higher concentr ations of biotin may be found in multivitamins, hair/nail supple ments, and workout supplements. ??If the result does not ma [facility] clinical observations, repeat testing after patient [...] Blood (Blood, 07/08/2021 11:21 07/08/2021 Venous) AM FURNACE CLERK 10:00 PM FURNACE CLERK Marychuy Kapoor APRN, C.N.P., M.S.N. LAB BLOOD ADD-ON Performing Organization Address City/State/ZIP Code Phon e Number [facility]- [address] [place] [address] [facility] [place] [address] [facility] [address] documented in this encounter Visit Diagnoses Diagnosis 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 Care Teams Salesperson Men'S Furnishings Relationship Specialty Start Date End Date Elsewhere, Pcp PCP - General Internal Medicine 07/08/21 documented as of this encounter
--- OUTSIDE RECORDS SUMMARY | 2022-03-28 16:29 | XMS_ITS | Encounter Summary ---
:1975 Author Organization [facility] Address [address] [place] [address] Care Team Providers Name Role Phone Unavailable Primary Care Provider Unavailable Reason for Visit Reason Comments Intake Assessment Encounter Details Date Type Department Care Team Description 07/06/2021 Clinical Communication Department of Marychuy Kapoor Assessment Oncology in , [facility], C.N.P., M.S.N. [place] [address] [address] [facility] [address] [place] [phone] Social History Tobacco Use Types Packs/Day Years [...] - 07/06/2021 11:32 AM CST Intake done ENT PUMPER documented in this encounter Plan of Treatment Upcoming Encounters Date Type Specialty Care Team Description 04/11/2022 Clinical Communication Admitting/Central Scheduling 04/13/2022 Appointment Laboratory Medicine Debbie Ivey M.D. [address] [place] [phone] 04/13/2022 Office Visit Oncology Walter Barnhart M.D., Ph.D. [address] [place] [phone] documented as of this encounter Visit Diagnoses Not on filedocumented in this encounter
--- OUTSIDE RECORDS SUMMARY | 2022-03-28 16:29 | XMS_ITS | Encounter Summary ---
:1975 Author Organization [facility] Address [address] [place] [address] Care Team Providers Name Role Phone Unavailable Primary Care Provider Unavailable Reason for Visit Episode Based Medications (Routine) - Authorized Specialty Diagnoses / Procedures Referred By Contact Refer red To Contact Diagnoses Malignant Neoplasm Of Ovary Laterality Unknown (HCC) Walter Barnhart M.D., R st Onc [facility] Procedures IN CARBOPLATIN INJECTION IN PACLITAXEL INJECTION IN INJECTION, PEGFILGRASTIM 6MG IN DEXAMETHASONE SODIUM PHOS Ph.D. [address] [place] [address] [address] [place] [phone] Referral ID Status Reason Start Date Expiration Date Visits V isits Requested Authorized [id number] Authorized 02/17/2021 02/17/2022 12 12 Encounter Details Date Type Department Care Team Description 05/30/2021 Infusion Department of Oncology Marychuy Kapoor, Malignant Neoplasm Of Ovary Laterality Unknown (HCC) (Primary Dx); in [facility] cota WATER QUALITY TECHNICIAN, C.N.P., Neutropenia Drug Induced (HC C) [address] [facility] M.S.N. [place], [place] [address] [place] [phone] [place], [place] [phone] (Wo rk) Social History Tobacco Use Types [...] Laboratory Medicine Debbie Ivey M.D. [address] [place] [phone] 04/13/2022 Office Visit Oncology Walter Barnhart M.D., Ph.D. [address] [place] [address] documented as of this encounter Visit Diagnoses Diagnosis Malignant Neoplasm Of Ovary Laterality U nknown (HCC) - Primary Neutropenia Drug Induced (HCC) documented in this encounter Administered Medications Inactive Administered Medications - up to 3 most recent administrations Medication Order MAR Action Action Date Dose Rate Site CARBOplatin 700 mg in NaCl New Bag 05/30/2021 4:[address]NAGER 700 mg 690 mL/hr 0.9% 345 mL IVPB (PARAPLATIN) 700 mg (rounded from 697.8 mg, Target AUC = 6), intravenous, at 690 mL/hr, Administer over 30 Minutes, Once, On 05/30/21 at 1530, For 1 dose dexamethasone in NaCl 0.9% IVPB 12 New Bag 05/30/2021 12:[address]NAGER 12 mg 200 mL/hr mg (DECADRON) 12 mg, intravenous, at 200 mL/hr, Administer over 15 Minutes, Once, On Sun05/30/21 at 1200, For 1 dose, Give prior to PACLitaxel Refrigerate diphenhydrAMINE 50 mg in NaCl 0.9% New Bag 05/30/2021 12:[address]NAGER 50 mg 204 mL/hr IVPB (BENADRYL) 50 mg, intravenous, at 204 mL/hr, Administer over 15 Minutes, Once, On Sun05/30/21 at 1200, For 1 dose, Pre taxol. ivpb vs ivp to help with symptoms famotidine injection 20 mg (PEPCID) Given 05/30/2021 11:[address]NAGER 20 mg 20 mg, intravenous, Once, On [...] mg New Bag 05/30/2021 12:[address] MANAGER 16 mg 232 mL/hr (ZOFRAN) 16 mg, intravenous, at 232 mL/hr, Administer over 15 Minutes, Once, On Sun05/30/21 at 1200, For 1 dose PACLitaxeL 288 mg in NaCl 0.9% New Bag 05/30/2021 1:[address]NAGER 288 mg 99.3 mL/hr (non-PVC) 298 mL IVPB (TAXOL) 288 mg (rounded from 285.25 mg = 175 mg/m2 ? 1.63 m2 Treatment Plan BSA from Measured weight), intravenous, at 99.3 mL/hr, Administer over 3 Hours, Once, On Sun05/30/21 at 1230, For 1 dose, Administer via 0.22 micron in-line filter. documented in this encounter
--- OUTSIDE RECORDS SUMMARY | 2022-03-28 16:29 | XMS_ITS | Encounter Summary ---
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 [place], [place] [address] [place] [phone] [place], [place] [phone] (Wo rk) Social History Tobacco Use Types [...] Laboratory Medicine Debbie Ivey M.D. [address] [place] [phone] 04/13/2022 Office Visit Oncology Walter Barnhart M.D., Ph.D. [address] [place] [phone] documented as of this encounter Visit Diagnoses Diagnosis Malignant Neoplasm Of Ovary Laterality U nknown (HCC) - Primary Neutropenia Drug Induced (HCC) documented in this encounter Administered Medications Inactive Administered Medications - up to 3 most recent administrations Medication Order MAR Action Action Date Dose Rate Site CARBOplatin 650 mg in NaCl New Bag 06/20/2021 2:40 PM DELI MANAGER 650 mg 680 mL/hr 0.9% 340 mL IVPB (PARAPLATIN) 650 mg (rounded from 648 mg, Target AUC = 6), intravenous, at 680 mL/hr, Administer over 30 Minutes, Once, On 06/20/21 at 1245, For 1 dose dexamethasone in NaCl 0.9% IVPB 12 New Bag 06/20/2021 9:20 AM DELI MANAGER 12 mg 200 mL/hr mg (DECADRON) 12 mg, intravenous, at 200 mL/hr, Administer over 15 Minutes, Once, On Sun06/20/21 at 0915, For 1 dose, Give prior to PACLitaxel Refrigerate diphenhydrAMINE 50 mg in NaCl 0.9% New Bag 06/20/2021 10:04 AM DELI MANAGER 50 mg 204 mL/hr IVPB (BENADRYL) 50 mg, intravenous, at 204 mL/hr, Administer over 15 Minutes, Once, On Sun06/20/21 at 0915, For 1 dose, Pre taxol. ivpb vs ivp to help with symptoms famotidine injection 20 mg (PEPCID) Given 06/20/2021 9:19 AM DELI MANAGER 20 mg 20 mg, intravenous, Once, [...] 16 mg New Bag 06/20/2021 9:46 AM DELI MANAGER 16 mg 232 mL/hr (ZOFRAN) 16 mg, intravenous, at 232 mL/hr, Administer over 15 Minutes, Once, On Sun06/20/21 at 0915, For 1 dose PACLitaxeL 288 mg in NaCl 0.9% New Bag 06/20/2021 11:02 AM DELI MANAGER 288 mg 108 mL/hr (non-PVC) 323 mL IVPB (TAXOL) 288 mg (rounded from 285.25 mg = 175 mg/m2 ? 1.63 m2 Treatment Plan BSA from Measured weight), intravenous, at 108 mL/hr, Administer over 3 Hours, Once, On Sun06/20/21 at 0945, For 1 dose, Administer via 0.22 micron in-line filter. pegfilgrastim on-body injector Given 06/20/2021 2:42 PM DELI MANAGER 6 mg Left Lower Abdomen 6 mg (NEULASTA ONPRO) 6 mg, subcutaneous, Once, On 06/20/21 at 0915, For 1 dose documented in this encounter
--- OUTSIDE RECORDS SUMMARY | 2022-03-28 16:29 | XMS_ITS | Encounter Summary ---
:1975 Author Organization [facility] Address [address] [place] [address] Care Team Providers Name Role Phone Unavailable Primary Care Provider Unavailable Reason for Referral Outpatient (Routine) - Closed Specialty Diagnoses / Procedures Referred By Contact Refer red To Contact Oncology Candie Monahan APR N, C.N.P. [facility] [address] [place], [place] [phone] Referral ID Status Reason Start Date Expiration Date Visits Requ ested Visits Authorized [id number] Closed 05/30/2021 05/30/2022 1 1 E MOUNTER MRI/CAT/PET Scan (Routine) - Closed Specialty Diagnoses / Procedures Referred By Contact Refer red To Contact Radiology Diagnoses Malignant Neoplasm Of Ovary Laterality Unknown (HCC) [facility] Abdomen Pelvis with IV Contrast TX CT ABD&PELVIS W CNTRST C.N.P. [address] [place] [phone] Referral ID Status Reason Start Date Expiration Date Visits Requ ested Visits Authorized [id number] Closed 07/22/2021 08/19/2021 1 1 E MOUNTER MRI/CAT/PET Scan (Routine) - Closed Specialty Diagnoses / Procedures Referred By Contact Refer red To Contact Radiology Diagnoses Malignant Neoplasm Of Ovary Laterality Unknown (HCC) Candie Monahan APRN, [place] Procedures CT Chest with IV Contrast TX CT THORAX W CNTRST TX 3D WO IND WORKSTATION C.N.P. [address] [place] [phone] Referral ID Status Reason Start Date Expiration Date Visits Requ ested Visits Authorized [id number] Closed 07/22/2021 08/19/2021 1 1 E MOUNTER Reason for Visit Outpatient (Routine) - Closed Specialty Diagnoses / Procedures Referred By Contact Refer red To Contact Oncology Walter Barnhart M. D., Ph.D. [facility] [address] [place] [phone] Referral ID Status Reason Start Date Expiration Date Visits Requ ested Visits Authorized [id number] Closed 05/04/2021 05/04/2022 1 1 Encounter Details Date Type Department Care Team Description 05/30/2021 Office Visit Department of Oncology Candie Monahan M alignant Neoplasm Of in [place], [place], C.N.P. Ovary Laterality [place] [address] [facility] Unknown (HCC) (Primary [address] [place] [address] Dx) [place] [phone] Social History Tobacco Use Types Packs/Day Years [...] Comments Blood Pressure 117/71 05/30/2021 9:03 AM STOVE MOUNTER Pulse 68 05/30/2021 9:03 AM STOVE MOUNTER Temperature 36.3 ??C (97.3 ??F) 05/30/2021 9:03 AM STOVE MOUNTER Respiratory Rate 14 05/30/2021 9:03 AM STOVE MOUNTER Oxygen Saturation 100% 05/30/2021 9:03 AM STOVE MOUNTER Inhaled Oxygen Concentration - - Weight 57 kg (125 lb 10.6 oz) 05/30/2021 9:03 AM STOVE MOUNTER Height - - Body Mass Index 20.44 05/09/2021 7:27 AM STOVE MOUNTER documented in this encounter Progress Notes aCndie Monahan, NUCLEAR CRITICALITY SAFETY ENGINEER, C.N.P. - 05/30/2021 9:00 AM CST SUBJECTIVE CHIEF COMPLAINT/PURPOSE OF VISIT Ms. Yang is a 45 y.o. woman with stage IVB high-grade serous ovarian carcinoma Collaborating provider: Dr. Michele Poon HISTORY OF PRESENT ILLNESS Ms. aYng is a very pleasant 45 y.o. woman with the following oncologic history: Oncology History Malignant Neoplasm Of Ovary Laterality Unknown (HCC) Genetic Testing and Tumor Genotyping Genetic testing in 2020; BRCAnalysis with MyRisk panel from [employer] lab. Variant of Uncertain Significance (VUS) found in APC gene specifically named [id number] aka [id number]). 02/03/2021 Other Ultrasound with bilateral complex solid [...] Chemotherapy CARBOplatin AUC 6 / PACLitaxel ( SNUFF GRINDER ) Start Date: 02/25/2021 Completed 3 cycles [...] Chemotherapy CARBOplatin AUC 6 / PACLitaxel ( SNUFF GRINDER ) Start Date: 02/25/2021 Adjuvant chemotherapy, cycles [...] we need to schedule them here in [place]. ECOG score of 1 PATIENT EDUCATION Ready to learn, no apparent learning barriers were identified; learning preferences include listening. Explained diagnosis and treatment plan; patient expressed understanding of the content. E MOUNTER documented in this encounter Plan of Treatment Upcoming Encounters Date Type Specialty Care Team Description 04/11/2022 Clinical Communication Admitting/Central Scheduling 04/13/2022 Appointment Laboratory Medicine Debbie Ivey M.D. [address] [place] [phone] 04/13/2022 Office Visit Oncology Walter Barnhart M.D., Ph.D. [address] [place] [phone] Scheduled Referrals Name Type Priority Associated Diagnoses [facility] Outpatient Referral Routine Expec jace: visit (clinic) 08/01/2021 General; SNUFF GRINDER (Approximate), Expires: 08/01/2022 documented as of this encounter Results CT Abdomen Pelvis with IV Contrast (08/04/2021 11:49 AM STOVE MOUNTER) Anatomical Region Laterality Modality Abdomen, Pelvis, Abdominal RST LOS, N/A Comp uted Tomography, Computed Abdominal ARZ LOS, Abdominal FLA LOS Aldo ography Specimen (Source) Anatomical Collection Method Collection Time Re ceived Time Location / / Volume Laterality 08/04/2021 11:44 AM STOVE MOUNTER Impressions 08/04/2021 12:37 PM STOVE MOUNTER New postoperative changes in the abdomen and pelvis for resection of the patient's ovarian carcinoma. No definite residual/ recurrent or metastatic disease. There is minimal soft tissue nodularity subjacent to the left hemidiaphragm that is technically indeterminant for postoperative change versus a metastatic implant and surveillance would likely be beneficial. Narrative 08/04/2021 12:37 PM STOVE MOUNTER EXAM: ??CT ABDOMEN PELVIS WITH IV CONTRAST [...] for a metastatic implant and attention at [facility] ow-[facility] would likely be beneficial. No [...] Chest with IV Contrast (08/04/2021 11:49 AM STOVE MOUNTER) Anatomical Region Laterality Modality Chest, Thoracic RST LOS, Thoracic ARZ N/A Co mputed Tomography, Computed LOS, Thoracic ARZ LOS, Thoracic FLA Rene graphy LOS Specimen (Source) Anatomical Collection Method Collection Time Re ceived Time Location / / Volume Laterality 08/04/2021 11:45 AM STOVE MOUNTER Impressions 08/04/2021 2:17 PM STOVE MOUNTER 1. No change since 05/02/2021. 2. Tiny pulmonary nodules are also uncha nged dating back to 02/11/2021, and though indeterminate, are most likely benign. Narrative 08/04/2021 2:17 PM STOVE MOUNTER EXAM: CT CHEST WITH IV CONTRAST COMPARISON: [...] seen on the sagittal reformatted images ( /), also unchanged since 02/11/2021, and presumably benign. [...] Creatinine with Estimated GFR (08/04/2021 10:14 AM STOVE MOUNTER) P athologist Signature Creatinine 0.74 0.59 - 08/04/2021 DTL 1.04 mg/dL 11:11 AM STOVE MOUNTER eGFR-Non >90 >=60 08/04/2021 DTL Black/ mL/min/BSA 11:11 AM STOVE MOUNTER [place] Comment: ----ADDITIONAL INFORMATION---- Estimated GFR calculated using the 2009 CKD_EPI creatinine equation. eGFR-Black/ >90 >=60 mL/min/BSA 2021 11:11 AM STOVE MOUNTER DTL Comment: ----ADDITIONAL INFORMATION---- Estimated GFR calculated using the 2009 CKD_EPI creatinine equation. Specimen Anatomical Collection Method Collection Time Receive d Time (Source) Location / / Volume Laterality Blood (Blood, 08/04/2021 10:14 08/04/2021 Venous) AM STOVE MOUNTER 10:55 AM STOVE MOUNTER Candie Monahan APRN, C.N.P. LAB BLOOD ADD-ON Performing Organization Address City/State/ZIP Code Phon e Number [facility] - [address] [place], [place] [address] [facility] [place] [address] Laboratories-[facility] [address] (ABNORMAL) CBC, Chemotherapy, No Alerts (08/04/2021 10:14 AM STOVE MOUNTER) Analysis Performed At Patho logist Time Signature Hemoglobin 13.0 11.6 - 08/04/2021 DTL 15.0 g/dL 10:50 AM STOVE MOUNTER Platelet Count 262 157 - 371 08/04/2021 DTL x10(9)/L 10:50 AM STOVE MOUNTER Leukocytes 3.2 (L) 3.4 - 9.6 08/04/2021 DTL x10(9)/L 10:50 AM STOVE MOUNTER Neutrophils 1.20 (L) 1.56 - 08/04/2021 DTL 6.45 10:50 AM STOVE MOUNTER x10(9)/L Specimen Anatomical Collection Method Collection Time Receive d Time (Source) Location / / Volume Laterality Blood (Blood, 08/04/2021 10:14 08/04/2021 Venous) AM STOVE MOUNTER 10:41 AM STOVE MOUNTER Candie Monahan APRN, Carly.N.P. LAB BLOOD ADD-ON Performing Organization Address City/[facility] Phon e Number [facility] - [address] [place], [place] [address] [facility] [place] [address] Laboratories-[facility] [address] [facility] Cancer Antigen 125 (CA 125) (08/04/2021 10:14 AM STOVE MOUNTER) athologist Signature Cancer Ag 125 5 <46 U/mL 08/04/2021 [facility] (CA 125), S 2:33 PM STOVE MOUNTER Comment: ----ADDITIONAL INFORMATION---- The testing method is [...] (Blood, 08/04/2021 10:14 08/04/2021 1:44 Venous) AM STOVE MOUNTER PM STOVE MOUNTER Candie Monahan APRN, C.N.P. LAB BLOOD ADD-ON Performing Organization Address City/[facility] Phon e Number [facility] [address] [place] [address] [facility] [place] [address] Laboratory Medicine and Pathology [address] MARQUEZ Bilirubin, Direct (08/04/2021 10:14 AM STOVE MOUNTER) athologist Signature Bilirubin, <0.2 0.0 - 0.3 08/04/2021 DTL Direct, S mg/dL 11:11 AM STOVE MOUNTER Specimen Anatomical Collection Method Collection Time Receive d Time (Source) Location / / Volume Laterality Blood (Blood, 08/04/2021 10:14 08/04/2021 Venous) AM STOVE MOUNTER 10:55 AM STOVE MOUNTER Candie Monahan APRN, Carly.N.P. LAB BLOOD ADD-ON Performing Organization Address City/[facility]/ZIP Code Phon e Number [facility] - [address] [place], [place] [address] [place], [place] [phone] [place] [address] Bilirubin, Total (08/04/2021 10:14 AM STOVE MOUNTER) athologist Signature Bilirubin, 0.5 <=1.2 mg/dL 08/04/2021 DTL Total, S 11:11 AM STOVE MOUNTER Specimen Anatomical Collection Method Collection Time Receive d Time (Source) Location / / Volume Laterality Blood (Blood, 08/04/2021 10:14 08/04/2021 Venous) AM STOVE MOUNTER 10:55 AM STOVE MOUNTER Candie Monahan APRN, C.N.P. LAB BLOOD ADD-ON Performing Organization Address City/[facility]/ZIP Code Phon e Number [facility] - [address] [place], [place] [address] [place] [address] [place] [address] AST (Aspartate Aminotransferase) (08/04/2021 10:14 AM STOVE MOUNTER) [facility] gist Method Time Signature Aspartate 32 8 - 43 08/04/2021 DTL Aminotransferase U/L 11:11 AM STOVE MOUNTER (AST), S Specimen Anatomical Collection Method Collection Time Receive d Time (Source) Location / / Volume Laterality Blood (Blood, 08/04/2021 10:14 08/04/2021 Venous) AM STOVE MOUNTER 10:55 AM STOVE MOUNTER Candie Monahan APRN, Carly.N.P. LAB BLOOD ADD-ON Performing Organization Address City/State/ZIP Code Phon e Number [facility] - [address] [address] Laboratories-[address] ALT (Alanine Aminotransferase) (08/04/2021 10:14 AM STOVE MOUNTER) [facility] gist Method Time Signature Alanine 23 7 - 45 08/04/2021 DT Aminotransferase U/L 11:11 AM STOVE MOUNTER (ALT), S Specimen Anatomical Collection Method Collection Time Receive d Time (Source) Location / / Volume Laterality Blood (Blood, 08/04/2021 10:14 08/04/2021 Venous) AM STOVE MOUNTER 10:55 AM STOVE MOUNTER Candie Monahan APRN, C.N.P. LAB BLOOD ADD-ON Performing Organization Address City/State/ZIP Code Phon e Number [facility] - [address] [address] [facility]-[address] documented in this encounter Visit Diagnoses Diagnosis Malignant Neoplasm Of Ovary Laterality U nknown (HCC) - Primary Malignant Neoplasm Of Ovary Laterality U nknown (HCC) documented in this encounter
--- OUTSIDE RECORDS SUMMARY | 2022-03-28 16:29 | XMS_ITS | Encounter Summary ---
:1975 Author Organization [facility] Address [address] [place] [address] Care Team Providers Name Role Phone Elsewhere, Pcp Primary Care Provider Unavailable Encounter Details Date Type Department Care Team Description 07/08/2021 Office Visit Department of Family Ned Sprague Only Medicine in [facility] M, [place]incitoN[place] (Primary Dx) [place], [place] [address] [place] [phone] Social History Tobacco Use Types Packs/Day Years [...] of this encounter Progress Notes Mark Sprague RDayan. - 07/08/2021 11:30 AM CST Patient was here for blood draw and vaccinations.Patient said',Ebenezer here for my 3 vaccinations today,last time I had mine in [place]''.City Secretary Checked for due vaccinations and was unable to see and requested another clinic nurse and discussed with Brenda Blake and And after searching the chart for vaccination details,ad writer called [place] [facility](nurse practitioner's nurse answered the phone call) and said.,''from [place] they cannot place an order,but patient has [...] why you did not tell me earlier City Secretary explained to the patient that,ad writer cannot open the chart ahead of a day for patient's detail. Patient understood and left the BIOSTATISTICS MANAGER clinic after blood draw. WELDER documented in this encounter Plan of Treatment Upcoming Encounters Date Type Specialty Care Team Description 04/11/2022 Clinical Communication Admitting/Central Scheduling 04/13/2022 Appointment Laboratory Medicine Debbie Ivey M.D. [address] [place] [phone] 04/13/2022 Office Visit Oncology Walter Barnhart M.D., Ph.D. [address] [place] [phone] documented as of this encounter Visit Diagnoses Diagnosis Immunization Only - Primary documented in this encounter Care Teams Superannuation Clerk Relationship Specialty Start Date End Date Elsewhere, Pcp PCP - General Internal Medicine 07/08/21 documented as of this encounter
--- OUTSIDE RECORDS SUMMARY | 2022-03-28 16:29 | XMS_ITS | Encounter Summary ---
:1975 Author Organization [facility] Address [address] [place] [address] Care Team Providers Name Role Phone Unavailable Primary Care Provider Unavailable Reason for Visit Reason Comments Intake Assessment Encounter Details Date Type Department Care Team Description 06/16/2021 Clinical Communication Department of Marychuy Kapoor Assessment Oncology in [facility], C.N.P., M.S.N. [place] [address] [facility] [address] [place] [phone] Social History Tobacco Use Types Packs/Day Years [...] - 06/16/2021 9:40 AM CST Intake done [employer] EMPLOYEE documented in this encounter Plan of Treatment Upcoming Encounters Date Type Specialty Care Team Description 04/11/2022 Clinical Communication Admitting/Central Scheduling 04/13/2022 Appointment Laboratory Medicine Debbie Ivey M.D. [address] [place] [phone] 04/13/2022 Office Visit Oncology Walter Barnhart M.D., Ph.D. [address] [place] [phone] documented as of this encounter Visit Diagnoses Not on filedocumented in this encounter
--- OUTSIDE RECORDS SUMMARY | 2022-03-28 16:29 | XMS_ITS | Encounter Summary ---
:1975 Author Organization [facility] Address [address] [place] [address] Care Team Providers Name Role Phone Unavailable Primary Care Provider Unavailable Encounter Details Date Type Department Care Team Description 05/20/2021 Orders Only Department of Obstetrics Zuri, and Gynecology in [place]NP[place], [place] C.N.P., M.S. [address] [facility] [address] [place] [phone] [place], [place] [phone] (Wo rk) Social History Tobacco Use Types [...] Laboratory Medicine Debbie Ivey M.D. [address] [place] [phone] 04/13/2022 Office Visit Oncology Walter Barnhart M.D., Ph.D. [address] [place] [phone] documented as of this encounter Visit Diagnoses Not on filedocumented in this encounter
--- OUTSIDE RECORDS SUMMARY | 2022-03-28 16:29 | XMS_ITS | Encounter Summary ---
:1975 Author Organization [facility] Address [address] [place] [address] Care Team Providers Name Role Phone Unavailable Primary Care Provider Unavailable Encounter Details Date Type Department Care Team Description 06/19/2021 Clinical Communication Department of Oncology Tala pride in [facility] rojelio Hernandez M.D. [address] [facility] [address] [place] [phone] Social History Tobacco Use Types Packs/Day Years [...] Mary Romero M.D. - 06/19/2021 12:50 PM HEAD INSPECTOR AND CENTER MARKER I received a call from the patient [...] the call. Mary Romero MD Hematology/Oncology Fellow [id number] 06/19/21 1:05 PM HEAD INSPECTOR AND CENTER MARKER INSPECTOR AND CENTER MARKER documented in this encounter Plan of Treatment Upcoming Encounters Date Type Specialty Care Team Description 04/11/2022 Clinical Communication Admitting/Central Scheduling 04/13/2022 Appointment Laboratory Medicine Debbie Ivey M.D. 200 [place] [phone] 04/13/2022 Office Visit Oncology Walter Barnhart M.D., Ph.D. [address] [place] [address] documented as of this encounter Visit Diagnoses Not on filedocumented in this encounter
--- OUTSIDE RECORDS SUMMARY | 2022-03-28 16:29 | XMS_ITS | Encounter Summary ---
:1975 Author Organization [facility] Address [address] [place] [address] Care Team Providers Name Role Phone Unavailable Primary Care Provider Unavailable Reason for Visit Reason Comments Post-op Visit Outpatient (Routine) - Closed Specialty Diagnoses / Procedures Referred By Contact Refer red To Contact Obstetrics and Ruben Rod M.D. [facility] Gynecology [address] [place] [phone] Referral ID Status Reason Start Date Expiration Date Visits Requ ested Visits Authorized [id number] Closed 05/13/2021 05/13/2022 1 1 Encounter Details Date Type Department Care Team Description 06/22/2021 Office Visit Department of Jessica Uribe Malignant N eoplasm Of Ovary Laterality Unknown (HCC) (Primary Dx); Obstetrics and TIMBER HARVESTER OPERATOR, C.N.P. Follow Up Examination Postoperative Visi t Gynecology in [address] [place] [address] [place] [phone] [place], [place] [phone] (Work) [phone] Social History Tobacco Use Types Packs/Day Years [...] 1 to 4 times per year 02/09 church services? Do you belong to any clubs [...] [facility]. Patient had negative germline BRCA testing, [...] communicated to her medical oncology team here. IT CONTROL MANAGER documented in this encounter Plan of Treatment Upcoming Encounters Date Type Specialty Care Team Description 04/11/2022 Clinical Communication Admitting/Central Scheduling 04/13/2022 Appointment Laboratory Medicine Debbie Ivey M.D. [address] [place] [phone] 04/13/2022 Office Visit Oncology Walter Barnhart M.D., Ph.D. [address] [place] [phone] documented as of this encounter Visit Diagnoses Diagnosis Malignant Neoplasm Of Ovary Laterality U nknown (HCC) - Primary Follow Up Examination Postoperative Visi t documented in this encounter
--- OUTSIDE RECORDS SUMMARY | 2022-03-28 16:29 | XMS_ITS | Encounter Summary ---
:1975 Author Organization [facility] Address [address] [place] [address] Care Team Providers Name Role Phone Unavailable Primary Care Provider Unavailable Reason for Visit Reason Comments Intake Assessment Encounter Details Date Type Department Care Team Description 05/27/2021 Clinical Communication Department of Candie Monahan Assessment Oncology in [facility] [address] [facility] [address] [place] [phone] Social History Tobacco Use Types Packs/Day Years [...] or relatives? How often do you attend congregational or 1 to 4 times per year 02/09 denominational services? Do you belong to any clubs or Yes 02/26/2021 organizations such as congregational groups, unions, fraternal or athletic groups, or [...] 05/27/2021 11:22 AM CST Intake screening completed. OMER SERVICE ASSISTANT documented in this encounter Plan of Treatment Upcoming Encounters Date Type Specialty Care Team Description 04/11/2022 Clinical Communication Admitting/Central Scheduling 04/13/2022 Appointment Laboratory Medicine Debbie Ivey M.D. [address] [place] [phone] 04/13/2022 Office Visit Oncology Walter Barnhart M.D., Ph.D. [address] [place] [phone] documented as of this encounter Visit Diagnoses Not on filedocumented in this encounter
--- OUTSIDE RECORDS SUMMARY | 2022-03-28 16:29 | XMS_ITS | Encounter Summary ---
:[address] [facility] Address [address] [place] [address] Care Team Providers Name Role Phone Unavailable Primary Care Provider Unavailable Encounter Details Date Type Department Care Team Description 05/27/2021 Orders Only Department of Oncology in tamiCandie [place], [place] C.N.P. [address] [facility] [address] [place] [address] [place], [place] [phone] (Wo rk) Social History Tobacco Use Types [...] Laboratory Medicine Debbie Ivey M.D. [address] [place] [address] [phone] 04/13/2022 Office Visit Oncology Walter Barnhart M.D., Ph.D. [address] [place] [address] [phone] documented as of this encounter Visit Diagnoses Not on filedocumented in this encounter
--- OUTSIDE RECORDS SUMMARY | 2022-03-28 16:29 | XMS_ITS | Encounter Summary ---
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 [address] [facility] [address] [place] [phone] Referral ID Status Reason Start Date Expiration Date Visits V isits Requested Authorized [id number] Authorized 02/17/2021 02/17/2022 12 12 Encounter Details Date Type Department Care Team Description 06/20/2021 Office Visit Department of Marychuy Kapoor Malignan t Neoplasm Of Ovary Laterality Unknown (HCC); Oncology in FOOD SERVICE ATTENDANT, C.N.P., Neutropenia Dr hannah Lorenzo (HCC) [place], [place] M.S.N. [address] [facility] [address] [place] [phone] Social History Tobacco Use Types Packs/Day Years [...] Comments Blood Pressure 125/81 06/20/2021 8:07 AM BARREL DRAINER Pulse 60 06/20/2021 8:07 AM BARREL DRAINER Temperature 35.5 ??C (95.9 ??F) 06/20/2021 8:07 AM BARREL DRAINER Respiratory Rate 16 06/20/2021 8:07 AM BARREL DRAINER Oxygen Saturation 100% 06/20/2021 8:07 AM BARREL DRAINER Inhaled Oxygen Concentration - - Weight 56.2 kg (123 lb 14.4 oz) 06/20/2021 8:07 AM BARREL DRAINER Height 169.2 cm (5' 6.61) 06/20/2021 8:07 AM BARREL DRAINER Body Mass Index 19.63 06/20/2021 8:07 AM BARREL DRAINER documented in this encounter Progress Notes Marychuy Kapoor APRN, C.N.P., M.S.N. - 06/20/2021 8:20 AM CST CHIEF COMPLAINT/PUPROSE OF VISIT: Ms. Yang is a 45 y.o. woman with stage IVB high-grade serous ovarian cancer Collaborating provider: Dr. Walter Barnhart [phone]) HISTORY OF PRESENT ILLNESS: Ms. Yang is a very pleasant 45 y.o. 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 Variant of Uncertain Significance (VUS) found in APC gene specifically named [id number] aka [id number]). 02/03/2021 Other Ultrasound with bilateral complex solid [...] Chemotherapy CARBOplatin AUC 6 / PACLitaxel ( WATER TRAINER ) Start Date: 02/25/2021 Completed 3 [...] Chemotherapy CARBOplatin AUC 6 / PACLitaxel ( WATER TRAINER ) Start Date: 02/25/2021 Adjuvant chemotherapy, [...] plan; patient expressed understanding of the content. EL DRAINER documented in this encounter Miscellaneous Notes Addendum Note - Adriane Uribe APRN, C.N.P. - 06/20/2021 8:20 AM BARREL DRAINER Addended by: ADRIANE URIBE on: 06/22/2021 11:42 AM Modules accepted: Orders EL DRAINER documented in this encounter Plan of Treatment Upcoming Encounters Date Type Specialty Care Team Description 04/11/2022 Clinical Communication Admitting/Central Scheduling 04/13/2022 Appointment Laboratory Medicine Debbie Ivey M.D. [address] [place] [phone] 04/13/2022 Office Visit Oncology Walter Barnhart M.D., Ph.D. [address] [place] [phone] Scheduled Orders Name Type Priority Associated Diagnoses Order S daniella [id number] myChoice CDx Lab Routine Malignant Neop lasm Of Expected: 06/22/2021 - Miscellaneous Test Ovary Laterality (Ap proximate), Unknown (HCC) Expires: 09/20 documented as of this encounter Procedures Procedure Name Priority Date/Time Associated Diagnosis Comme nts [facility] [place] Routine 05/09/2021 12:06 PM Results for this GENETICS LAB BARREL DRAINER procedure are i n the results section. documented in this encounter Results [facility] (05/09/2021 12:06 PM BARREL DRAINER) P athologist Signature Test Name MyChoice CDx 07/04/2021 MYRI 11:17 AM BARREL DRAINER Result SEE COMMENT 07/19/2021 MYRI 10:14 AM BARREL DRAINER Comment: For final report, select Lab-Send Out L ab Results hyperlink below. Specimen Anatomical Collection Method Collection Time Receive d Time (Source) Location / / Volume Laterality Varies 05/09/2021 12:06 07/04/2021 PM BARREL DRAINER 11:17 AM BARREL DRAINER Narrative This result has an attachment that is no t available. Sabine Martinez APRNNAnthony. LAB [facility] ORDERABLES Performing Organization Address City/State/ZIP Code Phon e Number [employer] [address] [place] [address] [facility] [place] [address] [employer] [address] documented in this encounter Visit Diagnoses Diagnosis 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
--- OUTSIDE RECORDS SUMMARY | 2022-03-28 16:29 | XMS_ITS | Encounter Summary ---
:1975 Author Organization [facility] Address [address] [place] [address] Care Team Providers Name Role Phone Unavailable Primary Care Provider Unavailable Reason for Visit Reason Comments Moving Treatment Forward Encounter Details Date Type Department Care Team Description 05/20/2021 Clinical Communication Department of Walter Barnhart Treatment Oncology in Kelly De La Cruz, Ph.D. Forward [place], [facility] [address] [place], [place] [address] [facility] [address] [place], [place] [phone] (Work) [phone] Social History Tobacco Use Types Packs/Day Years [...] Laboratory Medicine Debbie Ivey M.D. [address] [place] [phone] 04/13/2022 Office Visit Oncology aWlter Barnhart M.D., Ph.D. [address] [place] [phone] documented as of this encounter Visit Diagnoses Not on filedocumented in this encounter
--- OUTSIDE RECORDS SUMMARY | 2022-03-28 16:29 | XMS_ITS | Encounter Summary ---
:1975 Author Organization [facility] Address [address] [place] [address] Care Team Providers Name Role Phone Unavailable Primary Care Provider Unavailable Encounter Details Date Type Department Care Team Description 06/24/2021 Clinical Communication Department of Denisha Oviedo Obstetrics and Kelly Box Gynecology in [address] [place] [address] [place] [phone] [place], [place] [phone] (Work) [phone] Social History Tobacco Use Types Packs/Day Years [...] CST Relayed message to Path sent out PROCESS TECHNICIAN Telephone Encounter - Yuliana Pro - 06/24/2021 12:23 PM CST Path send away called and was asking which biopsy they want us to use. It is not listed on the [facility] form. Let me know and I will call them back. Thanks! Yuliana PROCESS TECHNICIAN documented in this encounter Plan of Treatment Upcoming Encounters Date Type Specialty Care Team Description 04/11/2022 Clinical Communication Admitting/Central Scheduling 04/13/2022 Appointment Laboratory Medicine Debbie Ivey M.D. [address] [place] [address] 04/13/2022 Office Visit Oncology Walter Barnhart M.D., Ph.D. [address] [place] [address] documented as of this encounter Visit Diagnoses Not on filedocumented in this encounter
--- OUTSIDE RECORDS SUMMARY | 2022-03-28 16:29 | XMS_ITS | Encounter Summary ---
:1975 Author Organization [facility] Address [address] [place] [address] Care Team Providers Name Role Phone Unavailable Primary Care Provider Unavailable Encounter Details Date Type Department Care Team Description 05/16/2021 Orders Only Department of Obstetrics and Fierro, Darek Camara, [facility] [address] [facility] [address] [place] [address] [phone] (Wo rk) Social History Tobacco Use Types [...] Laboratory Medicine Debbie Ivey M.D. [address] [place] [phone] 04/13/2022 Office Visit Oncology Walter Barnhart M.D., Ph.D. [address] [place] [address] [phone] documented as of this encounter Visit Diagnoses Not on filedocumented in this encounter
--- OUTSIDE RECORDS SUMMARY | 2022-03-28 16:29 | XMS_ITS | Encounter Summary ---
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 [address] [facility] [address] [place] [phone] Referral ID Status Reason Start Date Expiration Date Visits V isits Requested Authorized [id number] Authorized 02/17/2021 02/17/2022 12 12 Encounter Details Date Type Department Care Team Description 06/19/2021 Hospital Encounter Department of Marychuy Kapoor Neoplasm Of Ovary Laterality Unknown (HCC); Laboratory Medicine DENNY Sanchez, C.N.P., Neut ropenia Drug Induced (HCC) in [facility] [address] [facility] [address] [place] [phone] Social History Tobacco Use Types Packs/Day Years [...] 1 to 4 times per year 02/09 mu-ism services? Do you belong to any clubs [...] Sig Dispensed Refills Start Date End Date dnapzec-nzqu-fmeeh-oreg- Take 1 tablet by 0 capryl 100 [...] Appointment Laboratory Medicine Debbie Ivey M.D. 200 [place] [phone] 04/13/2022 Office Visit Oncology Walter Barnhart M.D., Ph.D. [address] [place] [phone] documented as of this encounter Procedures Procedure Name Priority Date/Time Associated Comments Diagnosis CBC CHEMO - NO ALERTS Routine 06/19/2021 10:06 Malignant Neopl asm Results for this AM CARBON GRINDER Of Ovary procedure are i n Laterality Unknown the resul ts (HCC) section. Neutropenia Drug Induced (HCC) CANCER AG 125 (CA 125), Routine 06/19/2021 10:06 Malignant Juan plasm Results for this S AM CARBON GRINDER Of Ovary procedure are i n Laterality Unknown the resul ts (HCC) section. Neutropenia Drug Induced (HCC) ASPARTATE Routine 06/19/2021 10:06 Malignant Neoplasm Resul ts for this AMINOTRANSFERASE (AST), AM CARBON GRINDER Of Ovary proc edure are in S/P Laterality Unknown the resul ts (HCC) section. Neutropenia Drug Induced (HCC) CREATININE WITH EGFR, Routine 06/19/2021 10:06 Malignant Neopl asm Results for this S/P AM CARBON GRINDER Of Ovary procedure are i n Laterality Unknown the resul ts (HCC) section. Neutropenia Drug Induced (HCC) BILIRUBIN, TOT, S/P Routine 06/19/2021 10:06 Malignant Neoplas m Results for this AM CARBON GRINDER Of Ovary procedure are i n Laterality Unknown the resul ts (HCC) section. Neutropenia Drug Induced (HCC) documented in this encounter Results Creatinine with Estimated GFR (06/19/2021 10:06 AM CARBON GRINDER) P athologist Signature Creatinine 0.77 0.59 - 06/19/2021 NPRG 1.04 mg/dL 10:43 AM CARBON GRINDER eGFR-Black/Afric >90 >=60 06/19/2021 NPRG an Senegalese mL/min/BSA 10:43 AM CARBON GRINDER Comment: ----ADDITIONAL INFORMATION---- Estimated GFR calculated using the 2009 CKD_EPI creatinine equation. eGFR Non-Black/ >90 >=60 mL/min/BSA 06/19/2021 10:43 AM CARBON GRINDER NPRG Comment: ----ADDITIONAL INFORMATION---- Estimated GFR calculated using the 2009 CKD_EPI creatinine equation. Specimen Anatomical Collection Method Collection Time Receive d Time (Source) Location / / Volume Laterality Blood (Blood, 06/19/2021 10:06 06/19/2021 Venous) AM CARBON GRINDER 10:10 AM CARBON GRINDER Marychuy Kapoor APRN, C.N.P., M.S.N. LAB BLOOD ADD-ON Performing Organization Address City/State/ZIP Code Phon e Number [facility] [address] [place], [place] [address] [place] [address] [place] [address] [facility] [address] (ABNORMAL) CBC, Chemotherapy, No Alerts (06/19/2021 10:06 AM CARBON GRINDER) Analysis Performed At Patho logist Time Signature Hemoglobin 11.3 (L) 11.6 - 06/19/2021 NPRG 15.0 g/dL 10:32 AM CARBON GRINDER Platelet Count 340 157 - 371 06/19/2021 NPRG x10(9)/L 10:32 AM CARBON GRINDER Leukocytes 3.7 3.4 - 9.6 06/19/2021 NPRG x10(9)/L 10:32 AM CARBON GRINDER Neutrophils 1.27 (L) 1.56 - 06/19/2021 NPRG 6.45 10:32 AM CARBON GRINDER x10(9)/L Specimen Anatomical Collection Method Collection Time Receive d Time (Source) Location / / Volume Laterality Blood (Blood, 06/19/2021 10:06 06/19/2021 Venous) AM CARBON GRINDER 10:10 AM CARBON GRINDER Carly Correa APRN.N.Katie., M.S.N. LAB BLOOD ADD-ON Performing Organization Address City/[facility] Phon e Number [address] Bilirubin, Total (06/19/2021 10:06 AM CARBON GRINDER) P athologist Signature Bilirubin, 0.2 <=1.2 mg/dL 06/19/2021 NPRG Total, P 10:43 AM CARBON GRINDER Specimen Anatomical Collection Method Collection Time Receive d Time (Source) Location / / Volume Laterality Blood (Blood, 06/19/2021 10:06 06/19/2021 Venous) AM CARBON GRINDER 10:10 AM CARBON GRINDER Carly Correa APRN.N.P., M.S.N. LAB BLOOD ADD-ON Performing Organization Address [facility] Phon e Number [address] LAB NPRG [address] AST (Aspartate Aminotransferase) (06/19/2021 10:06 AM CARBON GRINDER) Patholo gist Method Time Signature Aspartate 36 8 - 43 06/19/2021 NPRG Aminotransferase U/L 10:43 AM CARBON GRINDER (AST), P Specimen Anatomical Collection Method Collection Time Receive d Time (Source) Location / / Volume Laterality Blood (Blood, 06/19/2021 10:06 06/19/2021 Venous) AM CARBON GRINDER 10:10 AM CARBON GRINDER Marychuy Kapoor APRN, C.N.P., M.S.N. LAB BLOOD ADD-ON Performing Organization Address City/State/ZIP Code Phon e Number [facility] [address] [place] [address] [place] [address] LAB NPRG [facility] [place] [address] [place] [address] [place] Cancer Antigen 125 (CA 125) (06/19/2021 10:06 AM CARBON GRINDER) P athologist Signature Cancer Ag 125 11 <46 U/mL 06/21/2021 [facility] (CA 125), S 10:54 AM CARBON GRINDER Comment: ----ADDITIONAL INFORMATION---- The testing method is [...] Blood (Blood, 06/19/2021 10:06 06/21/2021 Venous) AM CARBON GRINDER 10:21 AM CARBON GRINDER Marychuy Kapoor APRN, C.N.P., M.S.N. LAB BLOOD ADD-ON Performing Organization Address City/State/ZIP Code Phon e Number [facility] [address] [place], [place] [address] [facility] [place] [address] Laboratory Medicine and Pathology [address] 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
--- OUTSIDE RECORDS SUMMARY | 2022-03-28 16:29 | XMS_ITS | Encounter Summary ---
:1975 Author Organization [facility] Address [address] [place] [address] Care Team Providers Name Role Phone Unavailable Primary Care Provider Unavailable Reason for Visit Reason Comments Post Surgery, Chemo Questions Encounter Details Date Type Department Care Team Description 05/20/2021 Clinical Communication Department of Walter Barnhart Surgery, Chemo Oncology in S, Kelly, Ph.D. Questions [place], [facility] [address] [place], [place] [address] [facility] [address] [place], [place] [phone] (Work) [phone] Social History Tobacco Use Types Packs/Day Years [...] Laboratory Medicine Debbie Ivey M.D. [address] [place] [phone] 04/13/2022 Office Visit Oncology Walter Barnhart M.D., Ph.D. [address] [place] [phone] documented as of this encounter Visit Diagnoses Not on filedocumented in this encounter
--- OUTSIDE RECORDS SUMMARY | 2022-03-28 16:29 | XMS_ITS | Encounter Summary ---
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 [address] [facility] [address] [place] [phone] Referral ID Status Reason Start Date Expiration Date Visits V isits Requested Authorized [id number] Authorized 02/17/2021 02/17/2022 12 12 Encounter Details Date Type Department Care Team Description 05/29/2021 Hospital Encounter Department of Marychuy Kapoor Neoplasm Of Ovary Laterality Unknown (HCC); Laboratory Medicine DENNY Sanchez, C.N.P., Neut ropenia Drug Induced (HCC) in [facility] [address] [facility] [address] [place] [phone] Social History Tobacco Use Types Packs/Day Years [...] Sig Dispensed Refills Start Date End Date cvzjwyl-wmur-wrmet-oreg- Take 1 tablet by 0 capryl 100 [...] Laboratory Medicine Debbie Ivey M.D. [address] [place] [phone] 04/13/2022 Office Visit Oncology Walter Barnhart M.D., Ph.D. [address] [place] [phone] documented as of this encounter Procedures Procedure Name Priority Date/Time Associated Comments Diagnosis CBC CHEMO - NO ALERTS Routine 05/29/2021 10:07 Malignant Neopl asm Results for this AM ENGLISH ADJUNCT FACULTY Of Ovary procedure are i n Laterality Unknown the resul ts (HCC) section. Neutropenia Drug Induced (HCC) CANCER AG 125 (CA 125), Routine 05/29/2021 10:07 Malignant Juan plasm Results for this S AM ENGLISH ADJUNCT FACULTY Of Ovary procedure are i n Laterality Unknown the resul ts (HCC) section. Neutropenia Drug Induced (HCC) ASPARTATE Routine 05/29/2021 10:07 Malignant Neoplasm Resul ts for this AMINOTRANSFERASE (AST), AM ENGLISH ADJUNCT FACULTY Of Ovary proc edure are in S/P Laterality Unknown the resul ts (HCC) section. Neutropenia Drug Induced (HCC) CREATININE WITH EGFR, Routine 05/29/2021 10:07 Malignant Neopl asm Results for this S/P AM ENGLISH ADJUNCT FACULTY Of Ovary procedure are i n Laterality Unknown the resul ts (HCC) section. Neutropenia Drug Induced (HCC) BILIRUBIN, TOT, S/P Routine 05/29/2021 10:07 Malignant Neoplas m Results for this AM ENGLISH ADJUNCT FACULTY Of Ovary procedure are i n Laterality Unknown the resul ts (HCC) section. Neutropenia Drug Induced (HCC) documented in this encounter Results Creatinine with Estimated GFR (05/29/2021 10:07 AM ENGLISH ADJUNCT FACULTY) P athologist Signature Creatinine 0.65 0.59 - 05/29/2021 NPRG 1.04 mg/dL 10:45 AM ENGLISH ADJUNCT FACULTY eGFR-Black/Afric >90 >=60 05/29/2021 NPRG an Moroccan mL/min/BSA 10:45 AM ENGLISH ADJUNCT FACULTY Comment: ----ADDITIONAL INFORMATION---- Estimated GFR calculated using the 2009 CKD_EPI creatinine equation. eGFR Non-Black/ >90 >=60 mL/min/BSA 05/29/2021 10:45 AM ENGLISH ADJUNCT FACULTY NPRG Comment: ----ADDITIONAL INFORMATION---- Estimated GFR calculated using the 2009 CKD_EPI creatinine equation. Specimen Anatomical Collection Method Collection Time Receive d Time (Source) Location / / Volume Laterality Blood (Blood, 05/29/2021 10:07 05/29/2021 Venous) AM ENGLISH ADJUNCT FACULTY 10:22 AM ENGLISH ADJUNCT FACULTY Sabine Correa APRNNAnthony., M.S.N. LAB BLOOD ADD-ON Performing Organization Address City/State/ZIP Code Phon e Number [place] [address] [address] [facility] [place] [id number] (ABNORMAL) CBC, Chemotherapy, No Alerts (05/29/2021 10:07 AM ENGLISH ADJUNCT FACULTY) Analysis Performed At Patho logist Time Signature Hemoglobin 10.3 (L) 11.6 - 05/29/2021 NPRG 15.0 g/dL 10:40 AM ENGLISH ADJUNCT FACULTY Platelet Count 657 (H) 157 - 371 05/29/2021 NPRG x10(9)/L 10:40 AM ENGLISH ADJUNCT FACULTY Leukocytes 7.7 3.4 - 9.6 05/29/2021 NPRG x10(9)/L 10:40 AM ENGLISH ADJUNCT FACULTY Neutrophils 2.35 1.56 - 05/29/2021 NPRG 6.45 10:40 AM ENGLISH ADJUNCT FACULTY x10(9)/L Specimen Anatomical Collection Method Collection Time Receive d Time (Source) Location / / Volume Laterality Blood (Blood, 05/29/2021 10:07 05/29/2021 Venous) AM ENGLISH ADJUNCT FACULTY 10:22 AM ENGLISH ADJUNCT FACULTY Sabine Correa APRNNNesha, M.S.N. LAB BLOOD ADD-ON Performing Organization Address City/State/ZIP Code Phon e Number [address] [address] [address] [facility] [place] [phone] Bilirubin, Total (05/29/2021 10:07 AM ENGLISH ADJUNCT FACULTY) P athologist Signature Bilirubin, <0.2 <=1.2 mg/dL 05/29/2021 NPRG Total, P 10:45 AM ENGLISH ADJUNCT FACULTY Specimen Anatomical Collection Method Collection Time Receive d Time (Source) Location / / Volume Laterality Blood (Blood, 05/29/2021 10:07 05/29/2021 Venous) AM ENGLISH ADJUNCT FACULTY 10:22 AM ENGLISH ADJUNCT FACULTY Carly Correa APRN.N.P., M.S.N. LAB BLOOD ADD-ON Performing Organization Address City/[facility]/ZIP Code Phon e Number [place] [address] [address] [place] [address] [address] [facility] [address] AST (Aspartate Aminotransferase) (05/29/2021 10:07 AM ENGLISH ADJUNCT FACULTY) Patholo gist Method Time Signature Aspartate 32 8 - 43 05/29/2021 NPRG Aminotransferase U/L 10:45 AM ENGLISH ADJUNCT FACULTY (AST), P Specimen Anatomical Collection Method Collection Time Receive d Time (Source) Location / / Volume Laterality Blood (Blood, 05/29/2021 10:07 05/29/2021 Venous) AM ENGLISH ADJUNCT FACULTY 10:22 AM ENGLISH ADJUNCT FACULTY Marychuy Kapoor APRN, C.N.P., M.S.N. LAB BLOOD ADD-ON Performing Organization Address [facility]/ZIP Code Phon e Number [place] [address] [address] [facility] [address] Cancer Antigen 125 (CA 125) (05/29/2021 10:07 AM ENGLISH ADJUNCT FACULTY) P athologist Signature Cancer Ag 125 27 <46 U/mL 05/30/2021 AUST (CA 125), S 8:35 AM ENGLISH ADJUNCT FACULTY Comment: Biotin has been identified by the daisy wall as a potential interfering substance. ??Higher concentr ations of biotin may be found in multivitamins, hair/nail supple ments, and workout supplements. ??If the result does not [facility] clinical observations, repeat testing after patient refrains fr om the use of supplements for at least 12 hours. ----ADDITIONAL INFORMATION---- The testing method is an electrochemilum inescence assay manufactured by [employer] and performed on the Michela [...] (Blood, 05/29/2021 10:07 05/29/2021 8:31 Venous) AM ENGLISH ADJUNCT FACULTY PM ENGLISH ADJUNCT FACULTY Sabine Correa APRNNAnthony., M.S.N. LAB BLOOD ADD-ON Performing Organization Address City/State/ZIP Code Phon e Number [facility]- [address] [place], [place] [id number] [place] [address] [address] [facility] [place], [place] [phone] [place] [address] documented in this encounter Visit Diagnoses Diagnosis 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
--- OUTSIDE RECORDS SUMMARY | 2022-03-28 16:30 | XMS_ITS | Encounter Summary ---
:1975 Author Organization [facility] Address [address] [place] [address] Care Team Providers Name Role Phone Unavailable Primary Care Provider Unavailable Reason for Visit Outpatient (Routine) - Closed Specialty Diagnoses / Procedures Referred By Contact Refer red To Contact General Surgery Diagnoses Malignant Neoplasm Of Ovary Laterality Unknown (HCC) Lesion Liver [facility] [address] [place] [address] Referral ID Status Reason Start Date Expiration Date Visits Requ ested Visits Authorized [id number] Closed 05/03/2021 05/03/2022 1 1 Encounter Details Date Type Department Care Team Description 05/03/2021 Comprehensive Visit Division of Wilma Castro Neoplasm Of Ovary Laterality Unknown (HCC); Hepatobiliary and Kelly Estrada Lesion Liver Pancreas Surgery in [address] [place], [place] [address] [place] [phone] [place], [place] [phone] (Work) [phone] Social History Tobacco Use Types Packs/Day Years [...] 02/26/2021 organizations such as jain groups, unions, fraZ Plane or athletic groups, or school groups? How [...] documented as of this encounter Consult Notes Wlima Castro M.D. - 05/03/2021 11:30 AM CST [...] care including same-day records review and documentation. BILITIES SERVICES OFFICER documented in this encounter Plan of Treatment Upcoming Encounters Date Type Specialty Care Team Description 04/11/2022 Clinical Communication Admitting/Central Scheduling 04/13/2022 Appointment Laboratory Medicine Debbie Ievy M.D. [address] [place] [address] 04/13/2022 Office Visit Oncology Walter Barnhart M.D., Ph.D. [address] [place] [address] documented as of this encounter Visit Diagnoses Diagnosis Malignant Neoplasm Of Ovary Laterality U nknown (HCC) Lesion Liver documented in this encounter
--- OUTSIDE RECORDS SUMMARY | 2022-03-28 16:30 | XMS_ITS | Encounter Summary ---
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 [facility] Procedures Stomal Therapy [address] [place] [phone] Referral ID Status Reason Start Date Expiration Date Visits Requ ested Visits Authorized [id number] Closed 05/03/2021 05/03/2022 1 1 Encounter Details Date Type Department Care Team Description 05/04/2021 Clinical Support Division of Colon Mike Oviedo M.D. [address] [place] [phone] Education Need Ostomy (Primary Dx); and Rectal Surgery Stefanie Muse R.N., COCN Malignant Neoplasm Of Ovary Laterality U nknown (HCC) in [place], [place] [address] [place] [phone] Social History Tobacco Use Types Packs/Day Years [...] and free of skin creases or scars. 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 [address] [place] [address] 04/13/2022 Office Visit Oncology Walter Barnhart M.D., Ph.D. [address] [place] [address] documented as of this encounter Procedures Procedure Name Priority Date/Time Associated Diagnosis Comme nts CRS STOMAL THERAPY Routine 05/04/2021 3:00 PM OVERNIGHT HOUSEPERSON Malignant Ne oplasm Of Ovary Laterality Unknown (HCC) documented in this encounter Visit Diagnoses Diagnosis Education Need Ostomy - Primary Malignant Neoplasm Of Ovary Laterality U nknown (HCC) documented in this encounter
--- OUTSIDE RECORDS SUMMARY | 2022-03-28 16:30 | XMS_ITS | Encounter Summary ---
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 [address] [place] [address] [place] [phone] Referral ID Status Reason Start Date Expiration Date Visits V isits Requested Authorized [id number] Authorized 02/17/2021 02/17/2022 12 12 Encounter Details Date Type Department Care Team Description 05/02/2021 Hospital Encounter Department of Walter Barnhart Malign ant Neoplasm Of Ovary Laterality Unknown (HCC); Laboratory Medicine Kelly De La Cruz, Ph. D. Neutropenia Drug Induced (HCC) in [address] [place] [phone] [place] [phone] (Work) [phone] Social History Tobacco Use Types Packs/Day Years [...] organizations such as latter day groups, unions, fraChargeBee or athletic groups, or school groups? How [...] Sig Dispensed Refills Start Date End Date hzdamab-xnhu-wglxg-oreg- Take 1 tablet by 0 capryl 100 [...] Appointment Laboratory Medicine Debbie Ivey M.D. 200 [place] [address] 04/13/2022 Office Visit Oncology Walter Barnhart M.D., Ph.D. 200 [place] [address] documented as of this encounter Procedures Procedure Name Priority Date/Time Associated Comments Diagnosis CBC CHEMO - NO ALERTS Routine 05/02/2021 10:22 Malignant Neopl asm Results for this AM ENTRY EXAMINER Of Ovary procedure are i n Laterality Unknown the resul ts (HCC) section. Neutropenia Drug Induced (HCC) CANCER AG 125 (CA 125), Routine 05/02/2021 10:22 Malignant Juan plasm Results for this S AM ENTRY EXAMINER Of Ovary procedure are i n Laterality Unknown the resul ts (HCC) section. Neutropenia Drug Induced (HCC) ASPARTATE Routine 05/02/2021 10:22 Malignant Neoplasm Resul ts for this AMINOTRANSFERASE (AST), AM ENTRY EXAMINER Of Ovary proc edure are in S/P Laterality Unknown the resul ts (HCC) section. Neutropenia Drug Induced (HCC) CREATININE WITH EGFR, Routine 05/02/2021 10:22 Malignant Neopl asm Results for this S/P AM ENTRY EXAMINER Of Ovary procedure are i n Laterality Unknown the resul ts (HCC) section. Neutropenia Drug Induced (HCC) BILIRUBIN, TOT, S/P Routine 05/02/2021 10:22 Malignant Neoplas m Results for this AM ENTRY EXAMINER Of Ovary procedure are i n Laterality Unknown the resul ts (HCC) section. Neutropenia Drug Induced (HCC) documented in this encounter Results Creatinine with Estimated GFR (05/02/2021 10:22 AM ENTRY EXAMINER) P athologist Signature Creatinine 0.64 0.59 - 05/02/2021 NPRG 1.04 mg/dL 10:47 AM ENTRY EXAMINER eGFR-Black/Afric >90 >=60 05/02/2021 NPRG an Lebanese mL/min/BSA 10:47 AM ENTRY EXAMINER Comment: ----ADDITIONAL INFORMATION---- Estimated GFR calculated using the 2009 CKD_EPI creatinine equation. eGFR Non-Black/ >90 >=60 mL/min/BSA 05/02/2021 10:47 AM ENTRY EXAMINER NPRG Comment: ----ADDITIONAL INFORMATION---- Estimated GFR calculated using the 2009 CKD_EPI creatinine equation. Specimen Anatomical Collection Method Collection Time Receive d Time (Source) Location / / Volume Laterality Blood (Blood, 05/02/2021 10:22 05/02/2021 Venous) AM ENTRY EXAMINER 10:27 AM ENTRY EXAMINER Walter Barnhart M.D., Ph.D. LAB BLOOD ADD-ON Performing Organization Address City/[facility]/ZIP Code Phon e Number [address] [address] [facility] [address] (ABNORMAL) CBC, Chemotherapy, No Alerts (05/02/2021 10:22 AM ENTRY EXAMINER) Analysis Performed At Patho logist Time Signature Hemoglobin 11.2 (L) 11.6 - 05/02/2021 NPRG 15.0 g/dL 10:32 AM ENTRY EXAMINER Platelet Count 233 157 - 371 05/02/2021 NPRG x10(9)/L 10:32 AM ENTRY EXAMINER Leukocytes 4.1 3.4 - 9.6 05/02/2021 NPRG x10(9)/L 10:32 AM ENTRY EXAMINER Neutrophils 2.59 1.56 - 05/02/2021 NPRG 6.45 10:32 AM ENTRY EXAMINER x10(9)/L Specimen Anatomical Collection Method Collection Time Receive d Time (Source) Location / / Volume Laterality Blood (Blood, 05/02/2021 10:22 05/02/2021 Venous) AM ENTRY EXAMINER 10:27 AM ENTRY EXAMINER Walter Barnhart M.D., Ph.D. LAB BLOOD ADD-ON Performing Organization Address City/[facility]/ZIP [facility] Phon e Number [address] [address] [facility] [place] [address] Bilirubin, Total (05/02/2021 10:22 AM ENTRY EXAMINER) P athologist Signature Bilirubin, 0.4 <=1.2 mg/dL 05/02/2021 NPRG Total, P 10:47 AM ENTRY EXAMINER Specimen Anatomical Collection Method Collection Time Receive d Time (Source) Location / / Volume Laterality Blood (Blood, 05/02/2021 10:22 05/02/2021 Venous) AM ENTRY EXAMINER 10:27 AM ENTRY EXAMINER Walter Barnhart M.D., Ph.D. LAB BLOOD ADD-ON Performing Organization Address City/State/[facility] Code Phon e Number [place] [address] [facility] NPRG [place] [phone] AST (Aspartate Aminotransferase) (05/02/2021 10:22 AM ENTRY EXAMINER) Patholo gist Method Time Signature Aspartate 23 8 - 43 05/02/2021 NPRG Aminotransferase U/L 10:47 AM ENTRY EXAMINER (AST), P Specimen Anatomical Collection Method Collection Time Receive d Time (Source) Location / / Volume Laterality Blood (Blood, 05/02/2021 10:22 05/02/2021 Venous) AM ENTRY EXAMINER 10:27 AM ENTRY EXAMINER Walter Barnhart M.D., Ph.D. LAB BLOOD ADD-ON Performing Organization Address City/[facility] Phon e Number [address] LAB NPRG [place] [phone] (ABNORMAL) Cancer Antigen 125 (CA 125) (05/02/2021 10:22 AM ENTRY EXAMINER) athologist Signature Cancer Ag 125 65 (H) <46 U/mL 05/02/2021 AUST (CA 125), S 10:36 PM ENTRY EXAMINER Comment: Biotin has been identified by the daisy wall as a potential interfering substance. ??Higher concentr ations of biotin may be found in multivitamins, hair/nail supple ments, and workout supplements. ??If the result does not [facility] clinical observations, repeat testing after patient [...] Blood (Blood, 05/02/2021 10:22 05/02/2021 Venous) AM ENTRY EXAMINER 10:04 PM ENTRY EXAMINER Walter Barnhart M.D., Ph.D. LAB BLOOD ADD-ON Performing Organization Address City/State/ZIP Code Phon e Number [facility]- [address] [facility] [place], [place] [address] [place] [address] documented in this encounter Visit Diagnoses Diagnosis 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
--- OUTSIDE RECORDS SUMMARY | 2022-03-28 16:30 | XMS_ITS | Encounter Summary ---
:[address] [facility] Address [address] [place] [address] Care Team Providers Name Role Phone Unavailable Primary Care Provider Unavailable Reason for Visit Reason Comments patient hospitalized locally Encounter Details Date Type Department Care Team Description 04/25/2021 Clinical Department of [place], patient hospit alized Communication Oncology in vitor Yuan M.SChapincitoN[place], R.N. [place] [address] [address] [facility] [address] [place] [phone] Social History Tobacco Use Types Packs/Day Years [...] Encounter - Mamie Rees M.S.N., R.N. - 04/25/2021 4:09 PM GLOBE TESTER SUBJECTIVE CHIEF COMPLAINT / REASON FOR CALL patient hospitalized locally Information Discussed Spoke with Man. Constance is admitted in [place] with possible bowel obstruction/blockage from stool. Relayed that Dr. Oviedo did review imaging and there's probability she needs extensive stool clean out but that is ultimately up to local providers to manage. He was not sure if she was havingany elevated temps or not. Doctors have not rounded yet today. Advised that management of potentially infection would be again responsibility of [place] team. Since imaging and surgery pre op is scheduled with Dr. Oviedo on 05/03 we will only need a CT chest next week and will cancel the abdomen/pelvis. Man verbalizes understanding. PLAN Disposition/Recommendation: recommended continue engagement in self-management activities Information/Education: patient/caller able to teach back Caller agreeable to plan of care: yes The following references were used: nursing clinical judgement E TESTER Telephone Encounter - Rene Bettencourt - 04/25/2021 2:41 PM CST Do we have a valid auth to speak with caller? Man Reason for call: Constance is hospitalized with a twisted intestine, Man would like a care team assistant to call him Thank you, Rene Polish Compounder RST ONC ROGO MAINTENANCE ENGINEER OIL FIELD POD 2 E TESTER documented in this encounter Plan of Treatment Upcoming Encounters Date Type Specialty Care Team Description 04/11/2022 Clinical Communication Admitting/Central Scheduling 04/13/2022 Appointment Laboratory Medicine Debbie Ivey M.D. [address] [place] [phone] 04/13/2022 Office Visit Oncology Walter Barnhart M.D., Ph.D. [address] [place] [phone] documented as of this encounter Visit Diagnoses Not on filedocumented in this encounter Additional Health Concerns Infection Onset Date Last Indicated Resolved Time COVID19 Pending 04/25/2021 04/25/2021 04/25/2021 4:15 AM GLOBE TESTER documented as of this encounter
--- OUTSIDE RECORDS SUMMARY | 2022-03-28 16:30 | XMS_ITS | Encounter Summary ---
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] Procedures NH SALPINGO-OOPHORECTOMY BILAT HYST NH HEPATECTMY RESECT PARTL LOBECT NH US GUIDE INTRAOPERATIVE NH CYSTHRSCPY W INS URETERAL STNT LAPAROTOMY, TUMOR DEBULKING HYSTERECTOMY ABDOMINAL WITH BILATERAL SALPINGO-OOPHORECTOMY OMENTECTOMY POSSIBLE RESECTION SMALL INTESTINE WITH ANASTOMOSIS, PROCEED INDICATED WEDGE RESECTION LIVER INTRAOPERATIVE ULTRASOUND LIVER CYSTOSCOPY INSERTION STENT URETER Referral ID Status Reason Start Date Expiration Date Visits Requ ested Visits Authorized [id number] 1 1 Encounter Details Date Type Department Care Team Description 05/09/2021 Surgery [facility] MAIN OR Denisha Oviedo E, LAPAROTOMY, [address] [facility] M.[facility]. EXPLORATORY. [place], [place] [address] [facility] [address] [place], [place] [phone] (Wo rk) Social History Tobacco Use Types [...] 02/26/2021 organizations such as faith groups, unions, [employer] or athletic groups, or school groups? How [...] Comments Blood Pressure 102/63 05/09/2021 6:15 PM SEWAGE PLANT OPERATOR Pulse 56 05/09/2021 6:15 PM SEWAGE PLANT OPERATOR Temperature 36.6 ??C (97.9 ??F) 05/09/2021 6:19 PM SEWAGE PLANT OPERATOR Respiratory Rate 14 05/09/2021 6:15 PM SEWAGE PLANT OPERATOR Oxygen Saturation 98% 05/09/2021 6:15 PM SEWAGE PLANT OPERATOR Inhaled Oxygen Concentration - - Weight 59.6 kg (131 lb 6.3 oz) 05/09/2021 7:27 AM SEWAGE PLANT OPERATOR Height 167 cm (5' 5.75) 05/09/2021 7:27 AM SEWAGE PLANT OPERATOR Body Mass Index 22.23 05/09/2021 7:27 AM SEWAGE PLANT OPERATOR documented in this encounter Discharge Summaries [...] None Result Value Participated in the Interpretation Tmi Rodrigues M.D. -Pathology Resident Report electronically signed by Sophia Ndiaye M.D. [id number] I verify that I have examined all relevant slides/materials for the specimen(s) and rendered or confirmed the diagnosis. Gross Description A. Received fresh labeled umbilical nodule is a 2.2 x 1.7 x 0.6 cm fragment of red-orosco soft tissue. There is a 0.7 x 0.6 cm nodule identified upon sectioning. All submitted for permanent sections only. Grossed by [facility]. B. Received fresh labeled falciform ligament is a 3.9 x 3.2 x 0.6 cm portion of pink-red fibrofatty tissue. Life Sciences Director tissue submitted for permanent sections only. Grossed by [facility]. C. Received fresh labeled omentum is a 42 x 12 x 1 cm portion of omentum. There is a 0.3 x 0.2 x 0.2 cm calcified nodule. Lymph nodes are identified. Life Sciences Director tissue submitted for permanent sections only. Grossed by RAL. Doe. Received fresh labeled liver wedge segment 4B/3 nodule is a 18 gram, 4.3 x 3.8 x 3.7 cm liver wedge specimen. A single 2.6 x 2.4 x 1.4 cm orosco-white mass is present 0.1 cm from the inked surgical margin. Margin is submitted perpendicularly. Life Sciences Director tissue submitted for permanent sections only. Grossed by [facility] . E. Received fresh labeled right diaphragm is a 7.1 x 3.2 x 1.6 cm portion of red-orosco fibrous tissue. At one aspect, there is a 3.6 x 1.7 x 0.6 cm nodule. Additional smaller nodules are identified. Life Sciences Director tissue submitted for permanent sections only. Grossed by [facility]. F. Received fresh labeled right anterior abdominal wall is a 3.8 x 2 x 0.5 cm portion of red-pink, peritonealized fibromembranous tissue. A 0.2 cm nodule is present. Life Sciences Director tissue submitted for permanent sections only. Grossed [...] nodule. Hilar lymph nodes are not identified. Life Sciences Director tissue submitted for permanent sections only. Grossed [...] tube has multiple adhesions and serosal implants. Life Sciences Director tissue submitted for permanent sections only. Grossed [...] 3 x 1.6 cm of soft tissue. Life Sciences Director tissue submitted for permanent sections only. Grossed by RAK. Gallegos Received fresh labeled portion of sigmoid colon is a 13.5 cm in length portion of colon. There are serosal tumor imp lants and adhesions. The mucosa is unremarkable. Life Sciences Director tissue submitted for permanent sections only. Grossed [...] including a pelvic exam. If scheduled at [facility] then appointment desk will contact you [...] important to have your annual flu vaccine GE PLANT OPERATOR documented in this encounter Discharge Instructions AttachmentsThe following attachments cannot be sent through Care Everywhere. Apixaban (By mouth) (Bolivian)Cyclobenzaprine (By mouth) (Bolivian)Hydromorphone (By mouth) (Bolivian)documented in this encounter Medications at Time of Discharge Medication Sig Dispensed Refills Start Date End Date zxcxeld-jrjk-wiseb-oreg- Take 1 tablet by 0 capryl 100 [...] 01/2408/10/2021 daily. documented as of this encounter Progress Notes [...] The patient was evaluated and discussed with OY[employer] F[employer]ER ONC fellow Dr. Lagos and Dr. Stone who are in agreement with the plan of care. GE PLANT OPERATOR Ruben Rod M.D. - 05/13/2021 5:40 [...] I/O Current Shift I/O Time Ins Outs 12/02 0701 - 05/13 700 In: 2160 [P.O.:2160] Out: [...] M.D. Please direct questions/concerns to service pagers. GE PLANT OPERATOR Ruben Rod M.D. - 05/12/2021 5:42 [...] 3550 [Urine:1800; Drains:300] 05/11 1901 - 05/12 07 In: - Out: 1640 [Urine:100; Drains:90] Physical [...] Neoplasm Of Ovary Code Status: Full Code Information Systems Security Developer: Discussed final pathology report. She will f/u [...] M.D. Please direct questions/concerns to service pagers. GE PLANT OPERATOR Ruben Rod M.D. - 05/11/2021 6:15 [...] Results from last 7 days Lab Units 05/11/211405/10/2111805/09/21 1539 WBC x10(9)/L 11.9* 13.5* -- VBGRS [...] Neoplasm Of Ovary Code Status: Full Code Information Systems Security Developer: Follow up final pathology. She will f/u [...] M.D. Please direct questions/concerns to service pagers. GE PLANT OPERATOR Sussy Albert M.D. - 05/10/2021 10:27 [...] with the patient and as well as projection welding machine operator onc fellow transportation lead Dr. Lagos. Addendum: Chest x-ray completed and prelim read negative for pneumo; small bilateral pleural effusions and atelectasis present. Noticeable air fluid levels in stomach. Will continue with oxygen supplementation overnight and continuous pulse oximetry. Encourage IS when awake. Discussed with patient andhusband. Sussy Albert M.D. GE PLANT OPERATOR Harrison Zaldivar Pharm.DChapincito, R.Ph. - 05/10/2021 7:52 AM CST Pharmacist [...] will be needed. Harrison Zaldivar Pharm.D., R.Ph. GE PLANT OPERATOR Cami Duran M.D. - 05/10/2021 5:37 [...] & Screen Expiration 05/12/2021 23:59 Testing Location [place] Blood Gas with Coox, Arterial Collection Time: [...] Date/Time SARS CoV-2 RNA, PCR, Varies Asymptomatic [[id number]] Collected: 05/08/21 0708 Lab Status: Final result [...] and Drug Administration and is used per die maker bench stamping's instructions. Performance characteristics were verified by [facility] in a manner consistent with CLIA requirements. Visit the CDC website: https://www.cdc.gov/coronavirus/ for the most recent guidelines on Coronavirus testing. Fact Sheet for Healthcare Providers: https://www.fda.gov/media/557002/download Fact Sheet for Patients: https://www.fda.gov/media/717883/download SARS Coronavirus 2, PCR Rapid, V Symptomatic [[id number]] Collected: 04/25/21 0320 Lab Status: Final result [...] at the following links: For Healthcare Providers: https://www.fda.gov/media/210964/download For Patients: https://www.fda.gov/media/001914/download SARS Coronavirus 2, Source, Rapid Swab, Nasopharynx Bacteria / Ebony Culture, Blood #1 [[id number]] Collected: 04/25/21 0207 Lab Status: Final result Specimen: Blood, Peripheral Draw Updated: 04/30/21 030 Bacteria/Ebony Culture, Blood No growth after 5 day/s of incubation. Bacteria / Ebony Culture, Blood #2 [[id number]] Collected: 04/25/21 0158 Lab Status: Final result [...] concerns. Cami Duran MD Resident General Surgery [employer] [phone] pager [phone] phone [email or web address] GE PLANT OPERATOR Ruben Rod M.D. - 05/10/2021 5:09 [...] Neoplasm Of Ovary Code Status: Full Code Information Systems Security Developer: Follow up final pathology. She will f/u [...] am available if needed. Sussy Albert M.D. GE PLANT OPERATOR Zaldivar, Harrison Galvan Pharm.D., R.Ph. - 05/09/2021 6:56 AM CST Images from the original note were not included. Admission Medication History Note Adherence issues: No concerns Medication list source: Patient Medication related information: Patient stated she would like to continue her MEDICAL COORDINATOR PESTICIDE USE Vyvanse while in the hospital. Prior to [...] for nausea or vomiting (unrelieved by ondansetron). aglitan-lbdb-dyclm-oreg-capryl 100 mg-150 mg- 50 mg-150 mg capsule 05/02/2021 -- -- Take 1 tablet by mouth daily. Vyvanse 70 mg capsule 05/08/2021 01/24/21 -- Take 70 mg by mouth daily. GE PLANT OPERATOR documented in this encounter Nursing Notes [...] unit in a wheelchair with transport services. GE PLANT OPERATOR Celeste Godlberg R.N. - 05/09/2021 9:44 PM CST End [...] remains free from fall/fall injury Outcome: Progressing GE PLANT OPERATOR documented in this encounter OR Notes Op Note - Wilma Castro M.D. 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 [place] was placed for less than 3 minutes and hemostasis was achieved using chromic mattress suture incorporatingGlisson's capsule above and below the bleeding area with fibrillar at base. The remainder of the parenchymal transection margin was ablated using the Aquamantys. Hemostasis was excellent. I then yielded the procedure back to Dr. Oviedo and her team. EBL for liver portion approximately 50mL Wilma Castro M.D. GE PLANT OPERATOR Op Note - Denisha Oviedo M.D. 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 Residual: 0/micro. Information Systems Security Developer Organs, Pelvic Colon & Peritoneum Initial: > [...] recovery in stable condition. Denisha Oviedo M.D. GE PLANT OPERATOR Op Note - Jacobo Banda M.D. [...] primary team post operatively. Jacobo Banda MD GE PLANT OPERATOR Brief Op Note - Che Martinez [...] 6300 Crystalloids Complications None Che Martinez M.D. GE PLANT OPERATOR documented in this encounter Miscellaneous Notes Result Encounter Note - Che Martinez M.D. - 05/12/2021 4:51 PM SEWAGE PLANT OPERATOR I have reviewed the final pathology report and the identified diagnosis is consistent with the patient's clinical presentation. GE PLANT OPERATOR Hospital Course - Lynn Armstrong M.D. [...] Report electronically signed by Sophia Ndiaye M.D. [phone] I verify that I have examined all relevant slides/materials for the specimen(s) and rendered or confirmed the diagnosis. Gross Description A. Received fresh labeled umbilical nodule is a 2.2 x 1.7 x 0.6 cm fragment of red-orosco soft tissue. There is a 0.7 x 0.6 cm nodule identified upon sectioning. All submitted for permanent sections only. Grossed by [facility]. B. Received fresh labeled falciform ligament is a 3.9 x 3.2 x 0.6 cm portion of pink-red fibrofatty tissue. Life Sciences Director tissue submitted for permanent sections only. Grossed by [facility]. C. Received fresh labeled omentum is a 42 x 12 x 1 cm portion of omentum. There is a 0.3 x 0.2 x 0.2 cm calcified nodule. Lymph nodes are identified. Life Sciences Director tissue submitted for permanent sections only. Grossed by RAL. Doe. Received fresh labeled liver wedge segment 4B/3 nodule is a 18 gram, 4.3 x 3.8 x 3.7 cm liver wedge specimen. A single 2.6 x 2.4 x 1.4 cm orosco-white mass is present 0.1 cm from the inked surgical margin. Margin is submitted perpendicularly. Life Sciences Director tissue submitted for permanent sections only. Grossed by Dorothy . E. Received fresh labeled right diaphragm is a 7.1 x 3.2 x 1.6 cm portion of red-orosco fibrous tissue. At one aspect, there is a 3.6 x 1.7 x 0.6 cm nodule. Additional smaller nodules are identified. Life Sciences Director tissue submitted for permanent sections only. Grossed by [facility]. Brizuela. Received fresh labeled right anterior abdominal wall is a 3.8 x 2 x 0.5 cm portion of red-pink, peritonealized fibromembranous tissue. A 0.2 cm nodule is present. Life Sciences Director tissue submitted for permanent sections only. Grossed by DJS. Estrada. Received fresh labeled right pelvic gutter is a 2.2 x 1 x 0.2 cm aggregate of red-pink fibromembranous tissue. All submitted for permanent sections only. Grossed by RAL. Abdullahi. Received fresh labeled left mid diaphragm is a 2.2 x 1 x 0.2 cm portion of cauterized pink-white fibromembranous tissue. All submitted for permanent sections only. Grossed by RAL. Marmolejo. Received fresh labeled spleen is a 238 gram, 14.6 x 8.8 x 4.2 cm s plenectomy specimen. The capsule is smooth and unremarkable. There is a 3 x 1.8 x 1.2 cm nodule. Hilar lymph nodes are not identified. Life Sciences Director tissue submitted for permanent sections only. Grossed by DJS. Chery. Received fresh labeled right fallopian tube and ovary is a 4.8 gram, 6.8 x 4.9 x 2.6 cm ovary with a 7.7 x 0.8 cm fallopian tube. The ovary has implants and adhesions on the outer surface and a cystic to solid cut surface. Papillary and friable excrescences are identified within the cystic component. The fallopian tube has multiple adhesions and serosal implants. Life Sciences Director tissue submitted for permanent sections only. Grossed [...] 3 x 1.6 cm of soft tissue. Life Sciences Director tissue submitted for permanent sections only. Grossed by RAK. Gallegos Received fresh labeled portion of sigmoid colon is a 13.5 cm in length portion of colon. There are serosal tumor imp lants and adhesions. The mucosa is unremarkable. Life Sciences Director tissue submitted for permanent sections only. Grossed [...] including a pelvic exam. If scheduled at [facility] then appointment desk will contact you [...] important to have your annual flu vaccine GE PLANT OPERATOR documented in this encounter Plan of Treatment Upcoming Encounters Date Type Specialty Care Team Description 04/11/2022 Clinical Communication Admitting/Central Scheduling 04/13/2022 Appointment Laboratory Medicine Debbie Ivey M.D. [address] [place] [address] 04/13/2022 Office Visit Oncology Walter Barnhart M.D., Ph.D. [address] [place] [address] Scheduled Referrals Name Type Priority Associated Order [...] esults for VIEW (Fast; most ED AM SEWAGE PLANT OPERATOR this procedur e patients; some are in the inpatients) results section. BASIC METABOLIC Routine 05/12/2021 12:35 Results for PANEL, S/P AM SEWAGE PLANT OPERATOR this procedure are in the results section. CBC WITHOUT Routine 05/11/2021 12:15 Results for DIFFERENTIAL, B AM SEWAGE PLANT OPERATOR this procedu re are in the results section. BASIC METABOLIC Routine 05/11/2021 12:15 Results for PANEL, S/P AM SEWAGE PLANT OPERATOR this procedure are in the results section. DX CHEST AP OR PA RAD - Semiurgent 05/10/2021 10:41 Re sults for AND LATERAL 2 VIEWS (Fast; most ED PM SEWAGE PLANT OPERATOR this p rocedure patients; some are in the inpatients) results section. POTASSIUM, S/P Timed 05/10/2021 4:42 Results fo r AM SEWAGE PLANT OPERATOR this procedure are in the results section. CBC WITHOUT Routine 05/10/2021 1:19 Results for DIFFERENTIAL, B AM SEWAGE PLANT OPERATOR this procedu re are in the results section. COMPREHENSIVE Routine 05/10/2021 1:19 Results for METABOLIC PANEL, S/P AM SEWAGE PLANT OPERATOR this pr ocedure are in the results section. DX ABDOMEN 1 VIEW RAD - Routine 05/09/2021 5:14 Result s for (most inpatients PM SEWAGE PLANT OPERATOR this proced ure and all are in the outpatients) results section. ADULT OXYGEN THERAPY Routine 05/09/2021 5:10 PM SEWAGE PLANT OPERATOR PATIENT STATUS STAT 05/09/2021 3:39 Results fo r PM SEWAGE PLANT OPERATOR this procedure are in the results section. SODIUM, B STAT 05/09/2021 3:39 Results for PM SEWAGE PLANT OPERATOR this procedure are in the results section. ABG W/COOX STAT 05/09/2021 3:39 Results for PM SEWAGE PLANT OPERATOR this procedure are in the results section. POTASSIUM, B STAT 05/09/2021 3:39 Results for PM SEWAGE PLANT OPERATOR this procedure are in the results section. GLUCOSE, WHOLE BLOOD STAT 05/09/2021 3:39 Resu lts for PM SEWAGE PLANT OPERATOR this procedure are in the results section. CALCIUM, IONIZED, STAT 05/09/2021 3:39 Results for S/B PM SEWAGE PLANT OPERATOR this procedure are in the results section. PATIENT STATUS STAT 05/09/2021 1:01 Results fo r PM SEWAGE PLANT OPERATOR this procedure are in the results section. SODIUM, B STAT 05/09/2021 1:01 Results for PM SEWAGE PLANT OPERATOR this procedure are in the results section. ABG W/COOX STAT 05/09/2021 1:01 Results for PM SEWAGE PLANT OPERATOR this procedure are in the results section. POTASSIUM, B STAT 05/09/2021 1:01 Results for PM SEWAGE PLANT OPERATOR this procedure are in the results section. GLUCOSE, WHOLE BLOOD STAT 05/09/2021 1:01 Resu lts for PM SEWAGE PLANT OPERATOR this procedure are in the results section. CALCIUM, IONIZED, STAT 05/09/2021 1:01 Results for S/B PM SEWAGE PLANT OPERATOR this procedure are in the results section. SURGICAL PATHOLOGY, Routine 05/09/2021 10:04 Malignant Resu lts for [facility] AM SEWAGE PLANT OPERATOR Neoplasm Of Ovary this proce dure Laterality are in the Unknown (HCC) results section. COLECTOMY LEFT WITH 05/09/2021 8:11 Malignant ANASTOMOSIS AM SEWAGE PLANT OPERATOR Neoplasm Of Ovary Laterality Unknown (HCC) EXPLORATION 05/09/2021 8:11 Malignant ABDOMINAL - LYSIS AM SEWAGE PLANT OPERATOR Neoplasm Of Ovary ADHESIONS Laterality Unknown (HCC) STRIPPING DIAPHRAGM 05/09/2021 8:11 Malignant AM SEWAGE PLANT OPERATOR Neoplasm Of Ovary Laterality Unknown (HCC) OTHER 05/09/2021 8:11 Malignant AM SEWAGE PLANT OPERATOR Neoplasm Of Ovary Laterality Unknown (HCC) SPLENECTOMY 05/09/2021 8:11 Malignant AM SEWAGE PLANT OPERATOR Neoplasm Of Ovary Laterality Unknown (HCC) CYSTOSCOPY INSERTION 05/09/2021 8:11 Malignant STENT URETER AM SEWAGE PLANT OPERATOR Neoplasm Of Ovary Laterality Unknown (HCC) ULTRASOUND LIVER 05/09/2021 8:11 Malignant AM SEWAGE PLANT OPERATOR Neoplasm Of Ovary Laterality Unknown (HCC) WEDGE RESECTION 05/09/2021 8:11 Malignant LIVER AM SEWAGE PLANT OPERATOR Neoplasm Of Ovary Laterality Unknown (HCC) OMENTECTOMY 05/09/2021 8:11 Malignant AM SEWAGE PLANT OPERATOR Neoplasm Of Ovary Laterality Unknown (HCC) HYSTERECTOMY 05/09/2021 8:11 Malignant ABDOMINAL WITH AM SEWAGE PLANT OPERATOR Neoplasm Of Ovary SALPINGO - Laterality OOPHORECTOMY Unknown (HCC) DEBULKING TUMOR 05/09/2021 8:11 Malignant OVARY AM SEWAGE PLANT OPERATOR Neoplasm Of Ovary Laterality Unknown (HCC) LAPAROTOMY - 05/09/2021 8:11 Malignant EXPLORATORY AM SEWAGE PLANT OPERATOR Neoplasm Of Ovary Laterality Unknown (HCC) TYPE AND SCREEN Routine 05/09/2021 7:29 Results f or AM SEWAGE PLANT OPERATOR this procedure are in the results section. documented in this encounter Results DX Chest Portable 1 View (05/12/2021 8:50 AM SEWAGE PLANT OPERATOR) Anatomical Region Laterality Modality Chest, Thoracic RST LOS, Thoracic ARZ LOS, Thoracic N/A Digital Radiography FLA LOS Specimen (Source) Anatomical Collection Method Collection Time Re ceived Time Location / / Volume Laterality 05/12/2021 8:51 AM SEWAGE PLANT OPERATOR Impressions 05/12/2021 8:52 AM SEWAGE PLANT OPERATOR No change since 05/10/2021, given differences of technique. Bilateral pleural effusions, greater on the right, layering posteriorly. Stable borderline cardiomegaly, also is accentu ated by technique. Atelectasis or consolidation in both bases. No pneumoth orax. Narrative 05/12/2021 8:52 AM SEWAGE PLANT OPERATOR EXAM: ??DX CHEST PORTABLE 1 VIEW [...] (ABNORMAL) Basic Metabolic Panel (05/12/2021 12:35 AM SEWAGE PLANT OPERATOR) P athologist Signature Potassium, S 4.7 3.6 - 5.2 05/12/2021 DTL mmol/L 1:20 AM SEWAGE PLANT OPERATOR Sodium, S 140 135 - 145 05/12/2021 DTL mmol/L 1:20 AM SEWAGE PLANT OPERATOR Chloride, S 105 98 - 107 05/12/2021 DTL mmol/L 1:20 AM SEWAGE PLANT OPERATOR Bicarbonate, S 29 22 - 29 05/12/2021 DTL mmol/L 1:20 AM SEWAGE PLANT OPERATOR Anion Gap 6 (L) 7 - 15 05/12/2021 DTL 1:20 AM SEWAGE PLANT OPERATOR BUN (Blood Urea 12 6 - 21 05/12/2021 DTL Nitrogen), S mg/dL 1:20 AM SEWAGE PLANT OPERATOR Creatinine 0.81 0.59 - 05/12/2021 DTL 1.04 mg/dL 1:20 AM SEWAGE PLANT OPERATOR eGFR-Non 88 >=60 05/12/2021 DTL Black/ mL/min/BSA 1:20 AM SEWAGE PLANT OPERATOR Peruvian Comment: ----ADDITIONAL INFORMATION---- Estimated GFR calculated using the 2009 CKD_EPI creatinine equation. eGFR-Black/ >90 >=60 mL/min/BSA 2020 1:20 AM SEWAGE PLANT OPERATOR DTL Comment: ----ADDITIONAL INFORMATION---- Estimated GFR calculated using the 2009 CKD_EPI creatinine equation. Calcium, Total, S 8.4 (L) 8.6 - 10.0 mg/dL 05/12/2021 1:20 AM SEWAGE PLANT OPERATOR DTL Glucose, S 93 70 - 140 mg/dL 05/12/2021 1:20 AM SEWAGE PLANT OPERATOR D TL Specimen Anatomical Collection Method Collection Time Receive d Time (Source) Location / / Volume Laterality Blood (Blood, 05/12/2021 12:35 05/12/2021 1:04 Venous) AM SEWAGE PLANT OPERATOR AM SEWAGE PLANT OPERATOR Ruben Rod M.D. LAB BLOOD ADD-ON Performing Organization Address City/State/ZIP Code Phon e Number [facility] - [address] [place], [place] [address] [facility] [place] [address] Laboratories-[facility] [employer] [facility] [address] [facility] (ABNORMAL) Basic Metabolic Panel (05/11/2021 12:15 AM SEWAGE PLANT OPERATOR) P athologist Signature Potassium, S 4.8 3.6 - 5.2 05/11/2021 DTL mmol/L 1:01 AM SEWAGE PLANT OPERATOR Sodium, S 140 135 - 145 05/11/2021 DTL mmol/L 1:01 AM SEWAGE PLANT OPERATOR Chloride, S 103 98 - 107 05/11/2021 DTL mmol/L 1:01 AM SEWAGE PLANT OPERATOR Bicarbonate, S 30 (H) 22 - 29 05/11/2021 DTL mmol/L 1:01 AM SEWAGE PLANT OPERATOR Anion Gap 7 7 - 15 05/11/2021 DTL 1:01 AM SEWAGE PLANT OPERATOR BUN (Blood Urea 13 6 - 21 05/11/2021 DTL Nitrogen), S mg/dL 1:01 AM SEWAGE PLANT OPERATOR Creatinine 0.87 0.59 - 05/11/2021 DTL 1.04 mg/dL 1:01 AM SEWAGE PLANT OPERATOR eGFR-Non 81 >=60 05/11/2021 DTL Black/ mL/min/BSA 1:01 AM SEWAGE PLANT OPERATOR [place]uvian Comment: ----ADDITIONAL INFORMATION---- Estimated GFR calculated using the 2009 CKD_EPI creatinine equation. eGFR-Black/ >90 >=60 mL/min/BSA 2020 1:01 AM SEWAGE PLANT OPERATOR DTL Comment: ----ADDITIONAL INFORMATION---- Estimated GFR calculated using the 2009 CKD_EPI creatinine equation. Calcium, Total, S 8.7 8.6 - 10.0 mg/dL 05/11/2021 1:01 AM SEWAGE PLANT OPERATOR DTL Glucose, S 99 70 - 140 mg/dL 05/11/2021 1:01 AM SEWAGE PLANT OPERATOR D TL Specimen Anatomical Collection Method Collection Time Receive d Time (Source) Location / / Volume Laterality Blood (Blood, 05/11/2021 12:15 05/11/2021 Venous) AM SEWAGE PLANT OPERATOR 12:46 AM SEWAGE PLANT OPERATOR Ruben Rod M.D. LAB BLOOD ADD-ON Performing Organization Address City/State/ZIP Code Phon e Number [facility] LABORATORIES - [address] [place], [place] [address] [facility] [place] [place] [address] Laboratories-[facility] 200 [facility] (ABNORMAL) CBC without Differential (05/11/2021 12:15 AM SEWAGE PLANT OPERATOR) [facility] gist Method Time Signature Hemoglobin 8.4 (L) 11.6 - 05/11/2021 DTL 15.0 g/dL 1:30 AM SEWAGE PLANT OPERATOR Hematocrit 25.9 (L) 35.5 - 05/11/2021 DTL 44.9 % 1:30 AM SEWAGE PLANT OPERATOR Erythrocytes 2.75 (L) 3.92 - 05/11/2021 DTL 5.13 1:30 AM SEWAGE PLANT OPERATOR x10(12)/L MCV 94.2 78.2 - 05/11/2021 DTL 97.9 fL 1:30 AM SEWAGE PLANT OPERATOR RBC Distrib Width 18.0 (H) 12.2 - 05/11/2021 DTL 16.1 % 1:30 AM SEWAGE PLANT OPERATOR Platelet Count 281 157 - 371 05/11/2021 DTL x10(9)/L 1:30 AM SEWAGE PLANT OPERATOR Leukocytes 11.9 (H) 3.4 - 9.6 05/11/2021 DTL x10(9)/L 1:30 AM SEWAGE PLANT OPERATOR Specimen Anatomical Collection Method Collection Time Receive d Time (Source) Location / / Volume Laterality Blood (Blood, 05/11/2021 12:15 05/11/2021 Venous) AM [employer]AGE PLANT OPERATOR 12:29 AM SEWAGE PLANT OPERATOR Ruben Rod M.D. LAB BLOOD ADD-ON Performing Organization Address City/State/ZIP Code Phon e Number [facility] LABORATORIES - [address] [place], [place] [address] [facility] [place] [address] Laboratories-[facility] [address] DX Chest AP or PA and Lateral 2 Views (05/10/2021 10:41 PM SEWAGE PLANT OPERATOR) Anatomical Region Laterality Modality Chest, Thoracic RST LOS, Thoracic ARZ LOS, Thoracic N/A Digital Radiography FLA LOS Specimen (Source) Anatomical Collection Method Collection Time Re ceived Time Location / / Volume Laterality 05/10/2021 10:42 PM SEWAGE PLANT OPERATOR Impressions 05/11/2021 8:59 AM SEWAGE PLANT OPERATOR Small bilateral pleural effusions. Bilateral lower lung airspace opacities. Low lung volumes. Abdominal d rain. Narrative 05/11/2021 8:59 AM SEWAGE PLANT OPERATOR EXAM: ??DX CHEST AP OR PA [...] IMAGING PROCE DURES Potassium (05/10/2021 4:42 AM SEWAGE PLANT OPERATOR) P athologist Signature Potassium, S 4.8 3.6 - 5.2 05/10/2021 DTL mmol/L 5:48 AM SEWAGE PLANT OPERATOR Specimen Anatomical Collection Method Collection Time Receive d Time (Source) Location / / Volume Laterality Blood (Blood, 05/10/2021 4:42 AM 05/10/20 5:39 Venous) SE[employer]AGE [employer]ANT OPERATOR AM SEWAGE PLANT OPERATOR Sussy Albert M.D. LAB BLOOD ADD-ON Performing Organization Address City/State/ZIP Code Phon e Number [facility] LABORATORIES - [address] [place], [place] [address] [facility] [place] [address] Laboratories-[facility] 200 [facility] (ABNORMAL) Comprehensive Metabolic Panel (05/10/2021 1:19 AM SEWAGE PLANT OPERATOR) P athologist Signature Potassium, S 5.4 (H) 3.6 - 5.2 05/10/2021 DTL mmol/L 1:58 AM SEWAGE PLANT OPERATOR Sodium, S 137 135 - 145 05/10/2021 DTL mmol/L 1:58 AM [employer]AGE PLANT OPERATOR Chloride, S 103 98 - 107 05/10/2021 DTL mmol/L 1:58 AM SE[employer]AGE PLANT OPERATOR Bicarbonate, S 22 22 - 29 05/10/2021 DTL mmol/L 1:58 AM SE[employer]AGE PLANT OPERATOR Anion Gap 12 7 - 15 05/10/2021 DTL 1:58 AM SEWAGE PLANT OPERATOR BUN (Blood Urea 14 6 - 21 05/10/2021 DTL Nitrogen), S mg/dL 1:58 AM SEWAGE PLANT OPERATOR Creatinine 0.76 0.59 - 05/10/2021 DTL 1.04 mg/dL 1:58 AM SEWAGE PLANT OPERATOR eGFR-Non >90 >=60 05/10/2021 DTL Black/ mL/min/BSA 1:58 AM SEWAGE PLANT OPERATOR Peruvian Comment: ----ADDITIONAL INFORMATION---- Estimated GFR calculated using the 2009 CKD_EPI creatinine equation. eGFR-Black/ >90 >=60 mL/min/BSA 2020 1:58 AM SEWAGE PLANT OPERATOR DTL Comment: ----ADDITIONAL INFORMATION---- Estimated GFR calculated using the 2009 CKD_EPI creatinine equation. Calcium, Total, S 8.5 (L) 8.6 - 10.0 mg/dL 05/10/2021 1:58 AM SEWAGE PLANT OPERATOR DTL Glucose, S 126 70 - 140 mg/dL 05/10/2021 1:58 AM SEWAGE PLANT OPERATOR D TL Protein, Total, S 5.7 (L) 6.3 - 7.9 g/dL 05/10/2021 1:58 A M SEWAGE PLANT OPERATOR DTL Albumin, S 4.2 3.5 - 5.0 g/dL 05/10/2021 1:58 AM SEWAGE PLANT OPERATOR D TL Aspartate Aminotransferase 598 (H) 8 - 43 U/L 05/10/2021 1 :58 AM SEWAGE PLANT OPERATOR DTL (AST), S Alkaline Phosphatase, S 49 35 - 104 U/L 05/10/2021 1: 58 AM SEWAGE PLANT OPERATOR DTL Alanine Aminotransferase 297 (H) 7 - 45 U/L 05/10/2021 1:5 8 AM SEWAGE PLANT OPERATOR DTL (ALT), S Bilirubin, Total, S 1.0 <=1.2 mg/dL 05/10/2021 1:58 AM SEWAGE PLANT OPERATOR DTL Specimen Anatomical Collection Method Collection Time Receive d Time (Source) Location / / Volume Laterality Blood (Blood, 05/10/2021 1:19 AM 05/10/20 21 1:27 Venous) SEWAGE PLANT OPERATOR AM SEWAGE PLANT OPERATOR Che Martinez M.D. LAB BLOOD ADD-ON Performing Organization Address City/State/[facility] Code Phon e Number [facility] LABORATORIES - [address] [place] [address] [facility] [place] [address] Laboratories-[facility] 200 [facility] (ABNORMAL) CBC without Differential (05/10/2021 1:19 AM SEWAGE PLANT OPERATOR) [facility] gist Method Time Signature Hemoglobin 9.6 (L) 11.6 - 05/10/2021 DHPM 15.0 g/dL 1:58 AM SEWAGE PLANT OPERATOR Hematocrit 29.5 (L) 35.5 - 05/10/2021 DHPM 44.9 % 1:58 AM SEWAGE PLANT OPERATOR Erythrocytes 3.15 (L) 3.92 - 05/10/2021 DHPM 5.13 1:58 AM SEWAGE PLANT OPERATOR x10(12)/L MCV 93.7 78.2 - 05/10/2021 DHPM 97.9 fL 1:58 AM SEWAGE PLANT OPERATOR RBC Distrib Width 17.5 (H) 12.2 - 05/10/2021 DHPM 16.1 % 1:58 AM SEWAGE PLANT OPERATOR Platelet Count 270 157 - 371 05/10/2021 DHPM x10(9)/L 1:58 AM SEWAGE PLANT OPERATOR Leukocytes 13.5 (H) 3.4 - 9.6 05/10/2021 DHPM x10(9)/L 1:58 AM SEWAGE PLANT OPERATOR Specimen Anatomical Collection Method Collection Time Receive d Time (Source) Location / / Volume Laterality Blood (Blood, 05/10/2021 1:19 AM 05/10/20 21 1:27 Venous) SE[employer]AGE [employer]ANT OPERATOR AM SEWAGE PLANT OPERATOR Che Martinez M.D. LAB BLOOD ADD-ON Performing Organization Address City/State/ZIP Code Phon e Number [facility] LABORATORIES - [address] [place] [address] [facility] [place] [place] [address] [facility] [address] DX Abdomen 1 View (05/09/2021 5:14 PM SEWAGE PLANT OPERATOR) Anatomical Region Laterality Modality Abdomen, Abdominal RST LOS, Abdominal ARZ LOS, N/A Computed Radiography Abdominal FLA LOS Specimen (Source) Anatomical Collection Method Collection Time Re ceived Time Location / / Volume Laterality 05/09/2021 5:16 PM SEWAGE PLANT OPERATOR Impressions 05/09/2021 5:34 PM SEWAGE PLANT OPERATOR Examination negative for postoperative purposes. Surgical changes in the pelvis. Expected postoperative pn eumoperitoneum. Grossly unremarkable imaged lung bases. Elevated right hemidi aphragm. Narrative 05/09/2021 5:34 PM SEWAGE PLANT OPERATOR EXAM: ??DX ABDOMEN 1 VIEW Procedure Note Aden Blanco D.O. - 05/09/2021 EXAM: DX ABDOMEN 1 VIEW IMPRESSION: Examination negative for postoperative p urposes. Surgical changes in the pelvis. Expected postoperative pn eumoperitoneum. Grossly unremarkable imaged lung bases. Elevated right hemidi aphragm. Denisha Oviedo M.D. IMG DIAGNOSTIC IMAGING PROCE [facility] Patient Status (05/09/2021 3:39 PM SEWAGE PLANT OPERATOR) P athologist Signature Temperature 36.2 37.0 deg C 05/09/2021 METH 3:40 PM SEWAGE PLANT OPERATOR FIO2 0.34 0.21=AIR 05/09/2021 METH 3:40 PM SEWAGE PLANT OPERATOR Specimen Anatomical Collection Method Collection Time Receive d Time (Source) Location / / Volume Laterality Blood 05/09/2021 3:39 PM 3:39 SEWAGE PLANT OPERATOR PM SE[employer]AGE [employer]ANT OPERATOR Abbey Kelly MATERIALS SPECIALIST, COPY AND PRINT ASSOCIATE LAB BLOOD NON ADD-ON Performing Organization Address City/State/ZIP Code Phon e Number [facility] LABORATORIES - [address] [place] [address] [facility] [place] [place] [address] [facility] [address] (ABNORMAL) Glucose, Whole Blood (05/09/2021 3:39 PM SEWAGE PLANT OPERATOR) athologist Signature Glucose 174 (H) 70 - 140 05/09/2021 METH mg/dL 3:43 PM SEWAGE PLANT OPERATOR Specimen Anatomical Collection Method Collection Time Receive d Time (Source) Location / / Volume Laterality Blood (Blood, 05/09/2021 3:39 PM 05/09/20 3:39 Arterial Line) SE[employer]AGE [employer]ANT OPERATOR PM SEWAGE PLANT OPERATOR Harrison Aguilar M.D. LAB BLOOD TROPONIN Performing Organization Address City/[facility] Phon e Number [facility] - [address] [address] [facility] [address] [facility] Potassium, Blood (05/09/2021 3:39 PM SEWAGE PLANT OPERATOR) athologist Signature Potassium, B 3.8 3.6 - 5.2 05/09/2021 METH mmol/L 3:43 PM SE[employer]AGE PLANT OPERATOR Specimen Anatomical Collection Method Collection Time Receive d Time (Source) Location / / Volume Laterality Blood (Blood, 05/09/2021 3:39 PM 05/09/20 3:39 Arterial Line) SE[employer]AGE PLANT OPERATOR PM SEWAGE PLANT OPERATOR Harrison Aguilar M.D. LAB BLOOD NON ADD-ON Performing Organization Address City/State/ZIP Code Phon e Number [facility] LABORATORIES - [address] [place], [place] [address] [place] [address] [facility] [address] [facility] Sodium, B (05/09/2021 3:39 PM SEWAGE PLANT OPERATOR) athologist Signature Sodium, B 140 135 - 145 05/09/2021 3:43 METH mmol/L PM SE[employer]AGE PLANT OPERATOR Specimen Anatomical Collection Method Collection Time Receive d Time (Source) Location / / Volume Laterality Blood (Blood, 05/09/2021 3:39 PM 05/09/20 3:39 Arterial Line) SE[employer]AGE PLANT OPERATOR PM SEWAGE PLANT OPERATOR Harrison Aguilar M.D. LAB BLOOD NON ADD-ON Performing Organization Address City/State/ZIP Code Phon e Number [facility] LABORATORIES - [address] [place], [place] [address] [place] [address] [facility] 200 [facility] (ABNORMAL) Calcium, Ionized (05/09/2021 3:39 PM SEWAGE PLANT OPERATOR) athologist Signature Calcium, 4.51 (L) 4.65 - 05/09/2021 METH Ionized, B 5.30 mg/dL 3:43 PM SEWAGE PLANT OPERATOR Specimen Anatomical Collection Method Collection Time Receive d Time (Source) Location / / Volume Laterality Blood (Blood, 05/09/2021 3:39 PM 05/09/20 3:39 Arterial Line) SEWAGE PLANT OPERATOR PM SEWAGE PLANT OPERATOR Harrison Aguilar M.D. LAB BLOOD NON ADD-ON Performing Organization Address City/State/ZIP Code Phon e Number [address] [address] [facility] [place] [address] (ABNORMAL) Blood Gas with Coox, Arterial (05/09/2021 3:39 PM SEWAGE PLANT OPERATOR) athologist Signature pO2 222 (H) 83 - 108 05/09/2021 METH mm Hg 3:43 PM SEWAGE PLANT OPERATOR pCO2 40 32 - 45 mm 05/09/2021 METH Hg 3:43 PM SEWAGE PLANT OPERATOR pH 7.40 7.35 - 05/09/2021 METH 7.45 pH 3:43 PM SEWAGE PLANT OPERATOR Base Excess -1 -2 - 3 05/09/2021 METH mmol/L 3:43 PM SEWAGE PLANT OPERATOR HCO3 25 22 - 26 05/09/2021 METH mmol/L 3:43 PM SEWAGE PLANT OPERATOR Hemoglobin, B 8.1 (L) 11.6 - 05/09/2021 METH 15.0 g/dL 3:43 PM SEWAGE PLANT OPERATOR O2Hb 98.3 (H) 94.0 - 05/09/2021 METH 98.0 % 3:43 PM SEWAGE PLANT OPERATOR COHb 1.4 <3.0 % 05/09/2021 METH 3:43 PM SEWAGE PLANT OPERATOR MetHb <1.0 <1.5 % 05/09/2021 METH 3:43 PM SEWAGE PLANT OPERATOR CtO2 11.7 (L) 18.0 - 05/09/2021 METH 21.0 vol % 3:43 PM SEWAGE PLANT OPERATOR Specimen Anatomical Collection Method Collection Time Receive d Time (Source) Location / / Volume Laterality Blood (Blood, 05/09/2021 3:39 PM 05/09/20 3:39 Arterial Line) SEWAGE PLANT OPERATOR PM SEWAGE PLANT OPERATOR Harrison Aguilar M.D. LAB BLOOD NON ADD-ON Performing Organization Address City/State/ZIP Code Phon e Number [facility] LABORATORIES - [address] [place], [place] [address] [place] [address] [facility] [address] [facility] Patient Status (05/09/2021 1:01 PM SEWAGE PLANT OPERATOR) P athologist Signature Temperature 35.7 37.0 deg C 05/09/2021 METH 1:01 PM SEWAGE PLANT OPERATOR FIO2 0.40 0.21=AIR 05/09/2021 METH 1:01 PM SEWAGE PLANT OPERATOR Specimen Anatomical Collection Method Collection Time Receive d Time (Source) Location / / Volume Laterality Blood 05/09/2021 1:01 PM 1:01 SEWAGE PLANT OPERATOR PM SEWAGE PLANT OPERATOR Abbey Kelly APRN, CRNA LAB BLOOD NON ADD-ON Performing Organization Address City/[facility]/ZIP Code Phon e Number [facility] LABORATORIES - [address] [place], [place] [address] [place] [address] [facility] [address] [facility] (ABNORMAL) Glucose, Whole Blood (05/09/2021 1:01 PM SEWAGE PLANT OPERATOR) athologist Signature Glucose 185 (H) 70 - 140 05/09/2021 METH mg/dL 1:08 PM SEWAGE PLANT OPERATOR Specimen Anatomical Collection Method Collection Time Receive d Time (Source) Location / / Volume Laterality Blood (Blood, 05/09/2021 1:01 PM 05/09/20 1:01 Arterial Line) SE[employer]AGE PLANT OPERATOR PM SEWAGE PLANT OPERATOR Harrison Aguilar M.D. LAB BLOOD TROPONIN Performing Organization Address City/State/ZIP Code Phon e Number [facility] LABORATORIES - [address] [place], [place] [address] [place] [address] [facility] [address] [facility] Potassium, Blood (05/09/2021 1:01 PM SEWAGE PLANT OPERATOR) P athologist Signature Potassium, B 3.6 3.6 - 5.2 05/09/2021 METH mmol/L 1:08 PM SEWAGE PLANT OPERATOR Specimen Anatomical Collection Method Collection Time Receive d Time (Source) Location / / Volume Laterality Blood (Blood, 05/09/2021 1:01 PM 05/09/20 1:01 Arterial Line) SEWAGE PLANT OPERATOR PM SEWAGE PLANT OPERATOR Harrison Aguilar M.D. LAB BLOOD NON ADD-ON Performing Organization Address City/[facility] Phon e Number [facility] - [address] 200 [facility] Sodium, B (05/09/2021 1:01 PM SEWAGE PLANT OPERATOR) athologist Signature Sodium, B 140 135 - 145 05/09/2021 1:08 METH mmol/L PM SEWAGE PLANT OPERATOR Specimen Anatomical Collection Method Collection Time Receive d Time (Source) Location / / Volume Laterality Blood (Blood, 05/09/2021 1:01 PM 05/09/20 1:01 Arterial Line) SEWAGE PLANT OPERATOR PM SEWAGE PLANT OPERATOR Harrison Aguilar M.D. LAB BLOOD NON ADD-ON Performing Organization Address City/[facility] Phon e Number [facility] - [id number] [place] [address] [address] [facility] (ABNORMAL) Calcium, Ionized (05/09/2021 1:01 PM SEWAGE PLANT OPERATOR) athologist Signature Calcium, 4.52 (L) 4.65 - 05/09/2021 METH Ionized, B 5.30 mg/dL 1:08 PM SEWAGE PLANT OPERATOR Specimen Anatomical Collection Method Collection Time Receive d Time (Source) Location / / Volume Laterality Blood (Blood, 05/09/2021 1:01 PM 05/09/20 1:01 Arterial Line) SEWAGE PLANT OPERATOR PM SEWAGE PLANT OPERATOR Harrison Aguilar M.D. LAB BLOOD NON ADD-ON Performing Organization Address City/[facility]/ZIP [facility] Phon e Number [facility] LABORATORIES - [address] (ABNORMAL) Blood Gas with Coox, Arterial (05/09/2021 1:01 PM SEWAGE PLANT OPERATOR) athologist Signature pO2 213 (H) 83 - 108 05/09/2021 METH mm Hg 1:08 PM SEWAGE PLANT OPERATOR pCO2 38 32 - 45 mm 05/09/2021 METH Hg 1:08 PM SEWAGE PLANT OPERATOR pH 7.41 7.35 - 05/09/2021 METH 7.45 pH 1:08 PM SEWAGE PLANT OPERATOR Base Excess -1 -2 - 3 05/09/2021 METH mmol/L 1:08 PM SEWAGE PLANT OPERATOR HCO3 24 22 - 26 05/09/2021 METH mmol/L 1:08 PM SEWAGE PLANT OPERATOR Hemoglobin, B 9.2 (L) 11.6 - 05/09/2021 METH 15.0 g/dL 1:08 PM SEWAGE PLANT OPERATOR O2Hb 99.7 (H) 94.0 - 05/09/2021 METH 98.0 % 1:08 PM SEWAGE PLANT OPERATOR COHb 1.1 <3.0 % 05/09/2021 METH 1:08 PM SEWAGE PLANT OPERATOR MetHb <1.0 <1.5 % 05/09/2021 METH 1:08 PM SEWAGE PLANT OPERATOR CtO2 13.4 (L) 18.0 - 05/09/2021 METH 21.0 vol % 1:08 PM SEWAGE PLANT OPERATOR Specimen Anatomical Collection Method Collection Time Receive d Time (Source) Location / / Volume Laterality Blood (Blood, 05/09/2021 1:01 PM 05/09/20 21 1:01 Arterial Line) SEWAGE PLANT OPERATOR PM SEWAGE PLANT OPERATOR Harrison Aguilar M.D. LAB BLOOD NON ADD-ON Performing Organization Address City/State/ZIP Code Phon e Number [facility] LABORATORIES - [address] [place], [place] [address] [facility] [place] [address] Laboratories-[facility] [address] [facility] Surgical Pathology, Frozen Lab (05/09/2021 10:04 AM SEWAGE PLANT OPERATOR) Component Value Ref Test Analysis Performed Pathologis t Range Method Time At Signature 05/11/2021 METH 2:48 PM SEWAGE PLANT OPERATOR Participated in Tim Rodrigues M.D. 05/11/2021 METH the -Pathology 2:48 PM Interpretation Resident SEWAGE PLANT OPERATOR Report Sophia Ndiaye M.D. [id number] 05/11/2021 MET H electronically 2:48 PM signed by SEWAGE PLANT OPERATOR I verify that I have examined all relevant slides/materials for the specimen(s) and rendered or confirmed the diagnosis. Gross Description A. ??Received fresh labeled umbilical nodule is a 2.2 x 05/11/2021 METH 1.7 2:48 PM x 0.6 cm fragment of red-orosco soft tissue. ??There is a 0.7 x SEWAGE PLANT OPERATOR 0.6 cm nodule identified upon sectioning. ??All submitted for permanent sections only. ??Grossed by PDH. B. ??Received fresh labeled falciform ligament is a 3.9 x 3.2 x 0.6 cm portion of pink-red fibrofatty tissue. Life Sciences Director tissue submitted for permanent sections only. Grossed by PDH. C. ??Received fresh labeled omentum is a 42 x 12 x 1 cm portion of omentum. ??There is a 0.3 x 0.2 x 0.2 cm calcified nodule. ??Lymph nodes are identified. ??Life Sciences Director tissu e submitted for permanent sections only. ??Grossed by RAL. Ramey ??Received fresh labeled liver wedge segment 4B/3 nodule is a 18 gram, 4.3 x 3.8 x 3.7 cm liver wedge specimen. ??A single 2.6 x 2.4 x 1.4 cm orosco-white mass is present 0.1 cm from the inked surgical margin. ??Margin is submitted perpendicularly. ??Life Sciences Director tissue submitted for permanent sections only. ??Grossed by DJSChapincito E. ??Received fresh labeled right diaphragm is a 7.1 x 3.2 x 1.6 cm portion of red-orosco fibrous tissue. ??At one aspect, there is a 3.6 x 1.7 x 0.6 cm nodule. ??Additional smaller nodules are identified. ??Life Sciences Director tissue submitted for permanent sections only. ??Grossed by PDH. F. ??Received fresh labeled right anterior abdominal wall is a 3.8 x 2 x 0.5 cm portion of red-pink, peritonealized fibromembranous tissue. ??A 0.2 cm nodule is present. Life Sciences Director tissue submitted for permanent sections only. Grossed [...] for permanent sections only. Grossed by RAL. I. ??Received fresh labeled spleen is a 238 gram, 14.6 x 8.8 x 4.2 cm splenectomy specimen. ??The capsule is smooth and unremarkable. ??There is a 3 x 1.8 x 1.2 cm nodule. Hilar lymph nodes are not identified. ??Life Sciences Director tissue submitted for permanent sections only. ??Grossed [...] tube has multiple adhesions and serosal implants. ??Life Sciences Director tissue submitted for permanent sections only. ??Grossed [...] 3 x 1.6 cm of soft tissue. Life Sciences Director tissue submitted for permanent sections only. Grossed by RAK. Gallegos ??Received fresh labeled portion of sigmoid colon is a 13.5 cm in length portion of colon. ??There are serosal tumor implants and adhesions. ??The mucosa is unremarkable. Life Sciences Director tissue submitted for permanent sections only. Grossed by GOPALS. Block Summary A Umbilical nodule 05/11/2021 METH A1 Umbilical nodule 1 2:48 PM A2 Umbilical nodule 2 SEWAGE PLANT OPERATOR B Falciform ligament B1 Nodular area [...] will be performed on block J2 at [facility] 3:33 PM [facility], [place], [place]. SEWAGE PLANT OPERATOR Signed by James Pantoja M.D., Ph.D. 07/01/2021 3:33 PM Comment: REVISED RESULTS Interpretation FINAL DIAGNOSIS 07/01/2021 3:33 PM SEWAGE PLANT OPERATOR METH J. ??Fallopian tube and ovary, [...] Volume Laterality Tissue 05/09/2021 10:04 (Umbilicus) AM SEWAGE PLANT OPERATOR Tissue (Pelvis) 05/09/2021 10:06 AM SEWAGE PLANT OPERATOR Tissue (Omentum) 05/09/2021 10:57 AM SEWAGE PLANT OPERATOR Tissue (Liver) 05/09/2021 11:43 AM SEWAGE PLANT OPERATOR Tissue 05/09/2021 11:59 (Diaphragm, AM SEWAGE PLANT OPERATOR Right) Tissue (Abdomen) 05/09/2021 12:07 PM SEWAGE PLANT OPERATOR Tissue (Pelvis, 05/09/2021 12:11 Right) PM SEWAGE PLANT OPERATOR Tissue 05/09/2021 12:36 (Diaphragm, Left) PM SEWAGE PLANT OPERATOR Tissue (Spleen) 05/09/2021 12:57 PM SEWAGE PLANT OPERATOR Tissue (Ovary, 05/09/2021 1:22 PM Right) SEWAGE PLANT OPERATOR Tissue (Uterus) 05/09/2021 3:05 PM SEWAGE PLANT OPERATOR Tissue (Colon) 05/09/2021 3:10 PM SEWAGE PLANT OPERATOR Narrative This result has an attachment that is no t available. Denisha Oviedo M.D. LAB SURG PATH ORDERABLES Performing Organization Address City/State/ZIP Code Phon e Number [place] [address] [address] [place], [place] [address] [facility] [place] [address] Laboratories-[facility] [address] Type and Screen (with reflex Antibody ID) (05/09/2021 7:29 AM SEWAGE PLANT OPERATOR) [facility] gist Method Time Signature ABORh B Neg Not 05/09/2021 ETRM applicable 9:21 AM SEWAGE PLANT OPERATOR Antibody Negative Negative 05/09/2021 ETRM Screen 9:32 AM SEWAGE PLANT OPERATOR Type & Screen 05/12/2021 05/09/2021 ETRM Expiration 23:59 9:21 AM SEWAGE PLANT OPERATOR Testing Alberto DEFAULT 05/09/2021 ETRM Location 8:27 AM SEWAGE PLANT OPERATOR Specimen Anatomical Collection Method Collection Time Receive d Time (Source) Location / / Volume Laterality Blood (Blood, 05/09/2021 7:29 AM 05/09/20 21 8:27 Venous) SEWAGE PLANT OPERATOR AM SEWAGE PLANT OPERATOR Denisha Oviedo M.D. LAB BLOOD BANK TEST ORDERABL ES Performing Organization Address City/State/ZIP Code Phon e Number [facility] LABORATORIES - [address] [place], [place] [address] [facility] [place] [address] Laboratories-[facility] [address] documented in this [...] tablet 1,000 mg Given 05/14/2021 6:19 AM SEWAGE PLANT OPERATOR 1,000 mg (TYLENOL) 1,000 mg, oral, Every 6 hours, First dose on Sun05/10/21 at 0000, not to exceed 4 grams in 24 hours. Given 05/13/2021 11:53 PM SEWAGE PLANT OPERATOR 1,000 mg Given 05/13/2021 5:50 PM SEWAGE PLANT OPERATOR 1,000 mg benzocaine-menthoL 15-3.6 mg per lozenge 1 Given 05/10 1:26 AM SEWAGE PLANT OPERATOR 1 lozenge lozenge (CEPACOL) 1 lozenge, oral, As needed, sore throat, Starting on Sun05/09/21 at 2026 bupivacaine liposome (PF) 20 Given 05/09/2021 4:28 PM SEWAGE PLANT OPERATOR 120 mL Abdominal Tissue mL in sodium chloride (PF) 0.9 % 120 mL injection As needed, Starting on Sun05/09/21 at 1628, Intra-Op calcium carbonate chewable tablet Given 05/11/2021 6:3 1 PM SEWAGE PLANT OPERATOR 400 mg of calcium 400 mg of calcium (TUMS) 400 mg of calcium, oral, 3 times daily PRN, indigestion, heartburn, Starting on Sun05/09/21 at 2027, Doses listed are in mg of elemental calcium. Take with food. 500 mg calcium carbonate contains 200 mg of elemental calcium. cellulose, oxidized 2 x 4 pad Given 05/09/2021 11:42 AM SEWAGE PLANT OPERATOR 1 each Other (SURGICEL) As needed, Starting on 05/09/21 at 1142, Intra-Op cyclobenzaprine tablet 5 mg (FLEXERIL) Given 05/14/2021 2:11 AM SEWAGE PLANT OPERATOR 5 mg 5 mg, oral, 3 times daily PRN, muscle spasms, Starting on Misty 05/12/21 at 0744 Given 05/13/2021 8:26 PM SEWAGE PLANT OPERATOR 5 mg Given 05/13/2021 2:01 PM SEWAGE PLANT OPERATOR 5 mg diphenhydrAMINE capsule 25 mg (BENADRYL) Given 05/10/2021 4:31 AM [employer]AGE [employer] 25 mg 25 mg, oral, Every 6 hours PRN, itching, sleep, Starting on Sun05/10/21 at 0251 enoxaparin injection 40 mg Given 05/13/2021 2:01 PM [employer] 40 mg Left Outer Thigh (LOVENOX) 40 mg, subcutaneous, Daily, First dose on Sun05/11/21 at 1400 Given 05/12/2021 2:58 PM [employer] 40 mg Right Outer Thigh Given 05/11/2021 2:06 PM [employer] 40 mg Right Upper Hip HYDROmorphone [...] oral pain medication. Given 05/10/2021 7:52 PM [employer] 0.4 mg Given 05/10/2021 3:31 PM [employer] 0.4 mg HYDROmorphone tablet 2 mg (DILAUDID) Given 05/14/2021 10:29 AM [employer] 2 mg 2 mg, oral, Every 4 hours PRN, moderate pain or score 4-6 of 10, Starting on Sun05/10/21 at 1518 Given 05/14/2021 6:23 AM [employer] 2 mg Given 05/12/2021 2:59 PM [employer] 2 mg HYDROmorphone tablet 4 mg (DILAUDID) Given 05/14/2021 2:11 AM [employer] 4 mg 4 mg, oral, Every 4 hours PRN, severe pain or score 7-10 of 10, Starting on Sun05/10/21 at 1518 Given 05/13/2021 8:26 PM [employer] 4 mg Given 05/13/2021 4:19 PM [employer] 4 mg ibuprofen tablet 600 mg (ADVIL,MOTRIN) Given 05/14/2021 6:19 AM [employer] 600 mg 600 mg, oral, Every 6 hours, First dose on Sun05/10/21 at 1900, start 6 hours after last ketorolac dose administered Given 05/13/2021 11:54 PM [employer] 600 mg Given 05/13/2021 5:50 PM [employer] 600 mg lisdexamfetamine capsule 70 mg (VYVANSE) Given 05/14/2021 6:19 AM [employer] 70 mg 70 mg, oral, Daily, First dose on Sun05/10/21 at 0700, See tube feeding guidelines for tube feeding administration instructions. Given 05/13/2021 6:06 AM [employer] 70 mg Given 05/12/2021 6:56 AM [employer] 70 mg magnesium hydroxide suspension 30 mL (MILK OF Given 8:26 PM [employer]ATOR 30 mL MAGNESIA) 30 mL, oral, 2 times daily, First dose on Sun05/09/21 at 2100, Starting evening of surgery. After first bowel movement discontinue Magnesium hydroxide Given 05/13/2021 9:55 AM [employer] 30 mL Given 05/12/2021 7:07 PM [employer] 30 mL melatonin tablet 3 mg Given 05/11/2021 10:21 PM [employer] 3 mg 3 mg, oral, Bedtime PRN, sleep, Starting on Sun05/09/21 at 2026 nalbuphine injection 2.5 mg (NUBAIN) Given 05/10/2021 1:08 PM [employer] 2.5 mg 2.5 mg, intravenous, Every 4 hours PRN, itching, Starting on Sun05/09/21 at 1840, For 4 doses, PACU & Post-Op Given 05/09/2021 9:31 PM [employer] 2.5 mg ondansetron (PF) injection 4 mg (ZOFRAN) Given 05/11/2021 7:29 PM [employer] 4 mg 4 mg, intravenous, Every 6 hours PRN, nausea, vomiting, Starting on Sun05/09/21 at 1840, Reassess for nausea or vomiting after at least 10 minutes. If nausea or vomiting persists administer next ordered antiemetic medications (order for antiemetic medication administration ondansetron then droperidol then promethazine). Given 05/10/2021 3:41 PM [employer] 4 mg oxybutynin tablet 5 mg (DITROPAN) 5 mg, oral, Every 8 hours PRN, bladder spasms, Startin g on Sun05/09/21 at 2025 promethazine injection 6.25 mg (PHENERGA N) Given 05/11/2021 10:11 PM [employer] 6.25 mg 6.25 mg, intravenous, Every 6 hours PRN, nausea, vomiting, Starting on Sun05/09/21 at 1840, RASS must be -2 or higher to administer. Reassess for nausea/vomiting after at least 10 minutes. If nausea or vomiting persists administer next ordered antiemetic medications (order for antiemetic medication administration ondansetron then droperidol then promethazine). sennosides tablet 17.2 mg (SENOKOT) Given 05/13/2021 10:30 PM [employer] 17.2 mg 17.2 mg, oral, Daily, First dose on Sun05/13/21 at 2115 simethicone chewable tablet 80 mg (MYLIC ON) Given 05/13/2021 9:55 AM [employer] 80 mg 80 mg, oral, 4 times daily PRN, flatulence, Starting on Sun05/09/21 at 2025 Given 05/13/2021 3:38 AM [employer] 80 mg Given 05/11/2021 3:35 PM [employer] 80 mg documented in this encounter Active and Recently Administered Medications Times are shown in [employer]. Scheduled Medication Order 05/12/2021 05/13/2021 05/14/2021 acetaminophen tablet 1,000 mg (TYLENOL) 0657 (Given - Provider: Jessie Rebolledo RAustin)1222 (Given - Provider: Angela Paniagua RAustin)1803 (Given - Provider: Celeste Goldberg R.N.)2304 (Given - Provider: Celeste Goldberg R.N.) 0606 (Given - Provider: Maximo Lucia.Shameka.)1126 (Given - Provider: Jaimee Morales RChapincitoN.)1750 (Given - Provider: Celeste Goldberg RChapincitoN.)2353 (Given - Provider: Jessie Rebolledo R.N.) 0619 (Given - Provider: Jessie Rebolledo R.N.) 1,000 mg, oral, Every 6 hours, First dos e on Sun05/10/21 at 0000, not to exceed 4 grams in 24 hours. enoxaparin injection 40 mg (LOVENOX) 1458 (Given - Pro vider: Angela Paniagua RChapincitoN.) 1401 (Given - Provider: Jaimee Morales RChapincitoNChapincito) 40 mg, subcutaneous, Daily, First dose on Sun05/11/21 at 1400 ibuprofen tablet 600 mg (ADVIL,MOTRIN) 0031 (Given - P rovider: Jessie Rebolledo R.N.)0702 (Given - Provider: Maximo Lucia.N.)1222 (Given - Provider: Angela Paniagua RDayan.)1803 (Given - Provider: Celeste Goldberg RChapincitoN.) 0338 (Given - Provider: Jessie Rebolledo R.N.)0955 (Given - Provider: Jaimee Morales R.N.)1750 (Given - Provider: Celeste Goldberg R.N.)2354 (Given - Provider: Jessie Rebolledo R.N.) 0619 [...] R.N.) 0955 (Given - Provider: Jaimee Morales R.N.)2025 (Given - Provider: Celeste Goldberg R.N.) 0853 [...] L shoulder) 0.5 mL, intramuscular, Once, On Misty 05/12/21 [...] 0820 (Given - P rovider: Angela Paniagua R.N.)1459 (Given - Provider: Angela Paniagua R.N.)2159 (Given - Provider: Celeste Goldberg R.N.) 0606 (Given - Provider: Jessie Rebolledo R.N.)1401 (Given - Provider: Jaimee Morales R.N.)2026 (Given - Provider: Celeste Goldberg R.N.) 0211 (Given - Provider: Jessie Rebloledo R.N.) 5 mg, oral, 3 times daily PRN, muscle spasms, Starting on Sun at 0744 diphenhydrAMINE capsule 25 mg (BENADRYL) [...] Jessie Rebolledo R.N.)0820 (Given - Provider: Angela Paniagau R.N.)1459 (Given - Provider: Angela Paniagua R.N.)1907 (See Alternative - Provider: Celeste Goldberg R.N.) 0338 (See Alternative - Provider: Loreto Rebolledo R.N.)0731 (See Alternative - Provider: Jaimee Morales R.N.)1128 (See Alternative - Provider: Jaimee Morales R.N.)1619 (See Alternative - P rovider: Celeste Goldberg R.N.) 0211 (See Alternative - Provider: Loreto Rebolledo R.N.)0623 (Given - Provider: Jessie Rebolledo R.N.)1029 (Given - Provider: Cecille Miles R.N., C.M.S.R.N.) [...] (See Alternative - Provider: Cecille Miles R.N., C.M.S.R.N.) 4 mg, oral, Every 4 hours PRN, [...]
--- OUTSIDE RECORDS SUMMARY | 2022-03-28 16:30 | XMS_ITS | Encounter Summary ---
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 [address] [place], [place] [id number] Referral ID Status Reason Start Date Expiration Date Visits Requ ested Visits Authorized [id number] Closed 04/18/2021 05/18/2021 1 1 Encounter Details Date Type Department Care Team Description 05/02/2021 Hospital Encounter Department of Walter Barnhart Malign ant Neoplasm Radiology brittney De La Cruz M.D., Ph.D. [facility] [place], [place] [address] [facility] ([facility]) [address] [place] [phone] Social History Tobacco Use Types Packs/Day [...] Sig Dispensed Refills Start Date End Date [id number]-[id number]-oreg- Take 1 tablet by 0 capryl 100 [...] Laboratory Medicine Debbie Ivey M.D. [address] [place] [phone] 04/13/2022 Office Visit Oncology Walter Barnhart M.D., Ph.D. [address] [place] [phone] documented as of this encounter Procedures Procedure Name Priority Date/Time Associated Comments Diagnosis CT CHEST WITH IV RAD - Routine 05/02/2021 10:52 Malignant Result s for this CONTRAST (most inpatients AM SHOE CLEANER Neoplasm Of Ovary proced ure are in and all Laterality the results outpatients) Unknown (HCC) section. documented in this encounter Results CT Chest with IV Contrast (05/02/2021 10:52 AM SHOE CLEANER) Anatomical Region Laterality Modality Chest, Thoracic RST LOS, Thoracic ARZ LOS, Thoracic N/A Computed Tomography ARZ LOS, Thoracic FLA LOS Specimen (Source) Anatomical Collection Method Collection Time Re ceived Time Location / / Volume Laterality 05/02/2021 11:10 AM SHOE CLE[employer]ER Impressions 05/02/2021 11:15 AM SHOE CLEANER No acute disease. Stable tiny pulmonary nodules. Narrative 05/02/2021 11:15 AM SHOE CLEANER EXAM: CT CHEST WITH IV CONTRAST 3D/MIPS: [...] mg iodine/mL solution Given 05/02/2021 10:54 AM SHOE CLEANER 80 mL 1-200 mL (OMNIPAQUE) 1-200 mL, intravenous, Once in imaging, contrast, Starting on Sun05/02/21 at 1053, For 1 dose, Imaging Protocol Orders, Dose per Radiant Medication Guidelines NaCl 0.9 % bolus 100 mL New Bag 05/02/2021 10:44 AM SHOE CLEANER 100 mL 100 mL/hr 100 mL, intravenous, at 100 mL/hr, Administer over 1 Hours, Once, On Sun05/02/21 at 1100, For 1 dose sodium chloride 0.9 % injection 10 mL Given 05/02/2021 10:44 AM SHOE CLEANER 10 mL 10 mL, intravenous, Once in imaging, line care, Starting on Sun05/02/21 at 1053, For 1 dose documented in this encounter
--- OUTSIDE RECORDS SUMMARY | 2022-03-28 16:30 | XMS_ITS | Encounter Summary ---
:1975 Author Organization [facility] Address [address] [place] [id number] Care Team Providers Name Role Phone Unavailable Primary Care Provider Unavailable Reason for Referral Outpatient (Routine) - Closed Specialty Diagnoses / Procedures Referred By Contact Refer red To Contact Obstetrics and Ruben Rod M.D. [facility] Gynecology [address] [place] [phone] Referral ID Status Reason Start Date Expiration Date Visits Requ ested Visits Authorized [id number] Closed 05/13/2021 05/13/2022 1 1 Scheduling Instructions 6 weeks appointment with BLUE[facility]Y GROWER/PA utpatient (Routine) - Closed Specialty Diagnoses / Procedures Referred By Contact Refer red To Contact General Surgery Agnes Drew M.D. 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] Procedures DE SALPINGO-OOPHORECTOMY BILAT HYST DE HEPATECTMY RESECT PARTL LOBECT DE US GUIDE INTRAOPERATIVE DE CYSTHRSCPY W INS URETERAL STNT LAPAROTOMY, TUMOR DEBULKING HYSTERECTOMY ABDOMINAL WITH BILATERAL SALPINGO-OOPHORECTOMY OMENTECTOMY POSSIBLE RESECTION SMALL INTESTINE WITH ANASTOMOSIS, PROCEED INDICATED WEDGE RESECTION LIVER INTRAOPERATIVE ULTRASOUND LIVER CYSTOSCOPY INSERTION STENT URETER Referral ID Status Reason Start Date Expiration Date Visits Requ ested Visits Authorized [id number] 1 1 Encounter Details Date Type Department Care Team Description 05/09/2021 - Hospital Encounter [facility] Denisha Oviedo History Of Malignant Neoplasm Of Ovary (Primary Dx); 05/14/2021 Louie Rainey M.D. Malignant Neoplasm Of Ovary Laterality U nknown ([facility]) [place], [facility] [address] [facility] [place], [place] Floor [phone] [address] [facility] [phone] [place], [place] (Work) [phone] Social History Tobacco Use [...] Comments Blood Pressure 141/71 05/14/2021 10:30 AM CRYPTOLOGIC SUPPORT SPECIALIST Pulse 88 05/14/2021 10:30 AM CRYPTOLOGIC SUPPORT SPECIALIST Temperature 36.8 ??C (98.2 ??F) 05/14/2021 10:30 AM CRYPTOLOGIC SUPPORT SPECIALIST Respiratory Rate 16 05/14/2021 10:30 AM CRYPTOLOGIC SUPPORT SPECIALIST Oxygen Saturation 97% 05/14/2021 10:30 AM CRYPTOLOGIC SUPPORT SPECIALIST Inhaled Oxygen Concentration - - Weight 62 kg (136 lb 11 oz) 05/13/2021 8:00 AM CRYPTOLOGIC SUPPORT SPECIALIST Height 167 cm (5' 5.75) 05/09/2021 7:27 AM CRYPTOLOGIC SUPPORT SPECIALIST Body Mass Index 22.23 05/09/2021 7:27 AM CRYPTOLOGIC SUPPORT SPECIALIST documented in this encounter Discharge Summaries [...] Report electronically signed by Sophia Ndiaye M.D. [id number] I verify that I have examined all relevant slides/materials for the specimen(s) and rendered or confirmed the diagnosis. Gross Description A. Received fresh labeled umbilical nodule is a 2.2 x 1.7 x 0.6 cm fragment of red-orosco soft tissue. There is a 0.7 x 0.6 cm nodule identified upon sectioning. All submitted for permanent sections only. Grossed by [facility]. B. Received fresh labeled falciform ligament is a 3.9 x 3.2 x 0.6 cm portion of pink-red fibrofatty tissue. Hospitality Associate tissue submitted for permanent sections only. Grossed by [facility]. C. Received fresh labeled omentum is a 42 x 12 x 1 cm portion of omentum. There is a 0.3 x 0.2 x 0.2 cm calcified nodule. Lymph nodes are identified. Hospitality Associate tissue submitted for permanent sections only. [facility]. Received fresh labeled liver wedge segment 4B/3 nodule is a 18 gram, 4.3 x 3.8 x 3.7 cm liver wedge specimen. A single 2.6 x 2.4 x 1.4 cm roosco-white mass is present 0.1 cm from the inked surgical margin. Margin is submitted perpendicularly. Hospitality Associate tissue submitted for permanent sections only. Grossed by [facility] . E. Received fresh labeled right diaphragm is a 7.1 x 3.2 x 1.6 cm portion of red-orosco fibrous tissue. At one aspect, there is a 3.6 x 1.7 x 0.6 cm nodule. Additional smaller nodules are identified. Hospitality Associate tissue submitted for permanent sections only. Grossed by [facility]. F. Received fresh labeled right anterior abdominal wall is a 3.8 x 2 x 0.5 cm portion of red-pink, peritonealized fibromembranous tissue. A 0.2 cm nodule is present. Hospitality Associate tissue submitted for permanent sections only. [...] nodule. Hilar lymph nodes are not identified. Hospitality Associate tissue submitted for permanent sections only. Grossed by [facility]. J. Received fresh labeled right fallopian tube [...] tube has multiple adhesions and serosal implants. Hospitality Associate tissue submitted for permanent sections only. Grossed by K. Received fresh labeled uterus, left fallopian [...] 3 x 1.6 cm of soft tissue. Hospitality Associate tissue submitted for permanent sections only. Grossed by [facility]AK. Gallegos Received fresh labeled portion of sigmoid colon is a 13.5 cm in length portion of colon. There are serosal tumor imp lants and adhesions. The mucosa is unremarkable. Hospitality Associate tissue submitted for permanent sections only. [...] including a pelvic exam. If scheduled at [facility] then appointment desk will contact you to [...] important to have your annual flu vaccine TOLOGIC SUPPORT SPECIALIST documented in this encounter Discharge Instructions AttachmentsThe following attachments cannot be sent through Care Everywhere. Apixaban (By mouth) (Burmese)Cyclobenzaprine (By mouth) (Burmese)Hydromorphone (By mouth) (Burmese)documented in this encounter Medications at Time of Discharge Medication Sig Dispensed Refills Start Date End Date ilbmunq-zlwx-oglxr-oreg- Take 1 tablet by 0 capryl 100 [...] as of this encounter Progress Notes Lynn Armstrnog M.D. - 05/14/2021 8:32 AM CST Gynecologic [...] Time Ins Outs 05/13 701 - 05/14 07 In: 2340 [P.O.:2340] Out: 4000 [Urine:4000] 05/14 [...] The patient was evaluated and discussed with F[facility] LINER ONC fellow Dr. Lagos and Dr. Stone who are in agreement with the plan of care. TOLOGIC SUPPORT SPECIALIST Ruben Rod M.D. - 05/13/2021 5:40 [...] Current Shift I/O Time Ins Outs 05/12 0701 - 05/13 0700 In: 2160 [P.O.:2160] Out: [...] M.D. Please direct questions/concerns to service pagers. TOLOGIC SUPPORT SPECIALIST Ruben Rod M.D. - 05/12/2021 5:42 [...] 980 [P.O.:980] Out: 3550 [Urine:1800; Drains:300] 05/11 190 - 05/12 0700 In: - Out: 1640 [...] Neoplasm Of Ovary Code Status: Full Code Sexton Helper: Discussed final pathology report. She will f/u [...] M.D. Please direct questions/concerns to service pagers. TOLOGIC SUPPORT SPECIALIST Ruben Rod M.D. - 05/11/2021 6:15 AM [...] Neoplasm Of Ovary Code Status: Full Code Sexton Helper: Follow up final pathology. She will f/u [...] M.D. Please direct questions/concerns to service pagers. TOLOGIC SUPPORT SPECIALIST Sussy Albert M.D. - 05/10/2021 10:27 [...] with the patient and as well as obgyn nurse onc fellow organization development consultant Dr. Lagos. 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 Harrison Zaldivar PharmTrent, R.Ph. Cami Day M.D. - 05/10/2021 5:37 [...] & Screen Expiration 05/12/2021 23:59 Testing Location [facility] with Coox, Arterial Collection Time: [...] Date/Time SARS CoV-2 RNA, PCR, Varies Asymptomatic [[id number]] Collected: 05/08/21 0708 Lab Status: Final result [...] and Drug Administration and is used per fast food manager's instructions. Performance characteristics were verified by [facility] in a manner consistent with CLIA requirements. Visit the CDC website: https://www.cdc.gov/coronavirus/ for the most recent guidelines on Coronavirus testing. Fact Sheet for Healthcare Providers: https://www.fda.gov/media/188278/download Fact Sheet for Patients: https://www.fda.gov/media/669223/download SARS Coronavirus 2, PCR Rapid, V Symptomatic [[id number]] Collected: 04/25/21 0320 Lab Status: Final result [...] at the following links: For Healthcare Providers: https://www.fda.gov/media/865108/download For Patients: https://www.fda.gov/media/376441/download SARS Coronavirus 2, Source, Rapid Swab, Nasopharynx Bacteria / Ebony Culture, Blood #1 [[id number]] Collected: 04/25/21 0207 Lab Status: Final result Specimen: Blood, Peripheral Draw Updated: 04/30/21 0303 Bacteria/Ebony Culture, Blood No growth after 5 day/s of incubation. Bacteria / Ebony Culture, Blood #2 [[id number]] Collected: 04/25/21 0158 Lab Status: Final result [...] concerns. Cami Duran MD Resident General Surgery [employer] [phone] pager phone [email or web address] TOLOGIC SUPPORT SPECIALIST Ruben Rod M.D. - 05/10/2021 5:09 [...] Neoplasm Of Ovary Code Status: Full Code Sexton Helper: Follow up final pathology. She will f/u [...] am available if needed. Sussy Albert M.D. TOLOGIC SUPPORT SPECIALIST Harrison Zaldivar Pharm.D., R.Ph. - 05/09/2021 6:56 AM CST Images from the original note were not included. Admission Medication History Note Adherence issues: No concerns Medication list source: Patient Medication related information: Patient stated she would like to continue her MODEL MAKER Vyvanse while in the hospital. Prior to Admission Medications Med List Status: Pharmacy Complete Set By: Harrison Zaldivar, Km, R.Ph. at 05/09/2021 6:56 AM Taking? Last [...] for nausea or vomiting (unrelieved by ondansetron). imtlflv-kpyo-jwtwj-oreg-capryl 100 mg-150 mg- 50 mg-150 mg capsule 05/02/2021 -- -- Take 1 tablet by mouth daily. Vyvanse 70 mg capsule 05/08/2021 01/24/21 -- Take 70 mg by mouth daily. TOLOGIC SUPPORT SPECIALIST documented in this encounter Nursing Notes [...] unit in a wheelchair with transport services. TOLOGIC SUPPORT SPECIALIST Celeste Goldberg R.N. - 05/09/2021 9:44 [...] remains free from fall/fall injury Outcome: Progressing TOLOGIC SUPPORT SPECIALIST documented in this encounter OR Notes Op Note - Wilma Castro M.D. 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 Oveido last week and consented her for liver [...] sheath surrounding portal structures at this juncture. Tillman was placed for less than 3 minutes and hemostasis was achieved using chromic mattress suture incorporatingGlisson's capsule above and below the bleeding area with fibrillar at base. The remainder of the parenchymal transection margin was ablated using the Aquamantys. Hemostasis was excellent. I then yielded the procedure back to Dr. Oviedo and her team. EBL for liver portion approximately 50mL Wilma Castro M.D. TOLOGIC SUPPORT SPECIALIST Op Note - Denisha Oviedo M.D. 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 Residual: 0/micro. Sexton Helper Organs, Pelvic Colon & Peritoneum Initial: > [...] recovery in stable condition. Denisha Oviedo M.D. TOLOGIC SUPPORT SPECIALIST Op Note - Jacobo Banda M.D. [...] primary team post operatively. Jacobo Banda MD TOLOGIC SUPPORT SPECIALIST Brief Op Note - Che Martinez [...] 6300 Crystalloids Complications None Che Martinez M.D. TOLOGIC SUPPORT SPECIALIST documented in this encounter Miscellaneous Notes Result Encounter Note - Che Martinez M.D. - 05/12/2021 4:51 PM CRYPTOLOGIC SUPPORT SPECIALIST I have reviewed the final pathology report and the identified diagnosis is consistent with the patient's clinical presentation. TOLOGIC SUPPORT SPECIALIST Hospital Course - Lynn Armstrong M.D. [...] Riley J, M.D. Reyes-Baez, Fiorella E, M.D. [facility], Eeeln H, M.D. PROCEDURE DATE: 05/09/2021 TYPE [...] Report electronically signed by Sophia Ndiaye M.D. [id number] I verify that I have examined all relevant slides/materials for the specimen(s) and rendered or confirmed the diagnosis. Gross Description A. Received fresh labeled umbilical nodule is a 2.2 x 1.7 x 0.6 cm fragment of red-orosco soft tissue. There is a 0.7 x 0.6 cm nodule identified upon sectioning. All submitted for permanent sections only. Grossed by [facility]. B. Received fresh labeled falciform ligament is a 3.9 x 3.2 x 0.6 cm portion of pink-red fibrofatty tissue. Hospitality Associate tissue submitted for permanent sections only. Grossed by [facility]. C. Received fresh labeled omentum is a 42 x 12 x 1 cm portion of omentum. There is a 0.3 x 0.2 x 0.2 cm calcified nodule. Lymph nodes are identified. Hospitality Associate tissue submitted for permanent sections only. Grossed by [facility]. D. Received fresh labeled liver wedge segment 4B/3 nodule is a 18 gram, 4.3 x 3.8 x 3.7 cm liver wedge specimen. A single 2.6 x 2.4 x 1.4 cm orosco-white mass is present 0.1 cm from the inked surgical margin. Margin is submitted perpendicularly. Hospitality Associate tissue submitted for permanent sections only. Grossed by S . E. Received fresh labeled right diaphragm is a 7.1 x 3.2 x 1.6 cm portion of red-orosco fibrous tissue. At one aspect, there is a 3.6 x 1.7 x 0.6 cm nodule. Additional smaller nodules are identified. Hospitality Associate tissue submitted for permanent sections only. Grossed by [facility]. F. Received fresh labeled right anterior abdominal wall is a 3.8 x 2 x 0.5 cm portion of red-pink, peritonealized fibromembranous tissue. A 0.2 cm nodule is present. Hospitality Associate tissue submitted for permanent sections only. Grossed by [facility]. G. Received fresh labeled right pelvic gutter is a 2.2 x 1 x 0.2 cm aggregate of red-pink fibromembranous tissue. All submitted for permanent sections only. Grossed by [facility]. H. Received fresh labeled left mid [...] nodule. Hilar lymph nodes are not identified. Hospitality Associate tissue submitted for permanent sections only. Grossed by [facility]. J. Received fresh labeled right fallopian tube [...] tube has multiple adhesions and serosal implants. Hospitality Associate tissue submitted for permanent sections only. Grossed by [facility]. K. Received fresh labeled uterus, left fallopian [...] 3 x 1.6 cm of soft tissue. Hospitality Associate tissue submitted for permanent sections only. Grossed by RAK. Gallegos Received fresh labeled portion of sigmoid colon is a 13.5 cm in length portion of colon. There are serosal tumor imp lants and adhesions. The mucosa is unremarkable. Hospitality Associate tissue submitted for permanent sections only. [...] including a pelvic exam. If scheduled at [facility] then appointment desk will contact you to [...] important to have your annual flu vaccine TOLOGIC SUPPORT SPECIALIST documented in this encounter Plan of Treatment Upcoming Encounters Date Type Specialty Care Team Description 04/11/2022 Clinical Communication Admitting/Central Scheduling 04/13/2022 Appointment Laboratory Medicine Debbie Ivey M.D. [address] [place] [phone] 04/13/2022 Office Visit Oncology Walter Barnhart M.D., Ph.D. [address] [place] [phone] Scheduled Referrals Name Type Priority Associated Order [...] esults for VIEW (Fast; most ED AM CRYPTOLOGIC SUPPORT SPECIALIST this procedur e patients; some are in the inpatients) results section. BASIC METABOLIC Routine 05/12/2021 12:35 Results for PANEL, S/P AM CRYPTOLOGIC SUPPORT SPECIALIST this procedure are in the results section. CBC WITHOUT Routine 05/11/2021 12:15 Results for DIFFERENTIAL, B AM CRYPTOLOGIC SUPPORT SPECIALIST this procedu re are in the results section. BASIC METABOLIC Routine 05/11/2021 12:15 Results for PANEL, S/P AM CRYPTOLOGIC SUPPORT SPECIALIST this procedure are in the results section. DX CHEST AP OR PA RAD - Semiurgent 05/10/2021 10:41 Re sults for AND LATERAL 2 VIEWS (Fast; most ED PM CRYPTOLOGIC SUPPORT SPECIALIST this p rocedure patients; some are in the inpatients) results section. POTASSIUM, S/P Timed 05/10/2021 4:42 Results fo r AM CRYPTOLOGIC SUPPORT SPECIALIST this procedure are in the results section. CBC WITHOUT Routine 05/10/2021 1:19 Results for DIFFERENTIAL, B AM CRYPTOLOGIC SUPPORT SPECIALIST this procedu re are in the results section. COMPREHENSIVE Routine 05/10/2021 1:19 Results for METABOLIC PANEL, S/P AM CRYPTOLOGIC SUPPORT SPECIALIST this pr ocedure are in the results section. DX ABDOMEN 1 VIEW RAD - Routine 05/09/2021 5:14 Result s for (most inpatients PM CRYPTOLOGIC SUPPORT SPECIALIST this proced ure and all are in the outpatients) results section. ADULT OXYGEN THERAPY Routine 05/09/2021 5:10 PM CRYPTOLOGIC SUPPORT SPECIALIST PATIENT STATUS STAT 05/09/2021 3:39 Results fo r PM CRYPTOLOGIC SUPPORT SPECIALIST this procedure are in the results section. SODIUM, B STAT 05/09/2021 3:39 Results for PM CRYPTOLOGIC SUPPORT SPECIALIST this procedure are in the results section. ABG W/COOX STAT 05/09/2021 3:39 Results for PM CRYPTOLOGIC SUPPORT SPECIALIST this procedure are in the results section. POTASSIUM, B STAT 05/09/2021 3:39 Results for PM CRYPTOLOGIC SUPPORT SPECIALIST this procedure are in the results section. GLUCOSE, WHOLE BLOOD STAT 05/09/2021 3:39 Resu lts for PM CRYPTOLOGIC SUPPORT SPECIALIST this procedure are in the results section. CALCIUM, IONIZED, STAT 05/09/2021 3:39 Results for S/B PM CRYPTOLOGIC SUPPORT SPECIALIST this procedure are in the results section. PATIENT STATUS STAT 05/09/2021 1:01 Results fo r PM CRYPTOLOGIC SUPPORT SPECIALIST this procedure are in the results section. SODIUM, B STAT 05/09/2021 1:01 Results for PM CRYPTOLOGIC SUPPORT SPECIALIST this procedure are in the results section. ABG W/COOX STAT 05/09/2021 1:01 Results for PM CRYPTOLOGIC SUPPORT SPECIALIST this procedure are in the results section. POTASSIUM, B STAT 05/09/2021 1:01 Results for PM CRYPTOLOGIC SUPPORT SPECIALIST this procedure are in the results section. GLUCOSE, WHOLE BLOOD STAT 05/09/2021 1:01 Resu lts for PM CRYPTOLOGIC SUPPORT SPECIALIST this procedure are in the results section. CALCIUM, IONIZED, STAT 05/09/2021 1:01 Results for S/B PM CRYPTOLOGIC SUPPORT SPECIALIST this procedure are in the results section. SURGICAL PATHOLOGY, Routine 05/09/2021 10:04 Malignant Resu lts for [facility] AM CRYPTOLOGIC SUPPORT SPECIALIST Neoplasm Of Ovary this proce dure Laterality are in the Unknown (HCC) results section. COLECTOMY LEFT WITH 05/09/2021 8:11 Malignant ANASTOMOSIS AM CRYPTOLOGIC SUPPORT SPECIALIST Neoplasm Of Ovary Laterality Unknown (HCC) EXPLORATION 05/09/2021 8:11 Malignant ABDOMINAL - LYSIS AM CRYPTOLOGIC SUPPORT SPECIALIST Neoplasm Of Ovary ADHESIONS Laterality Unknown (HCC) STRIPPING DIAPHRAGM 05/09/2021 8:11 Malignant AM CRYPTOLOGIC SUPPORT SPECIALIST Neoplasm Of Ovary Laterality Unknown (HCC) OTHER 05/09/2021 8:11 Malignant AM CRYPTOLOGIC SUPPORT SPECIALIST Neoplasm Of Ovary Laterality Unknown (HCC) SPLENECTOMY 05/09/2021 8:11 Malignant AM CRYPTOLOGIC SUPPORT SPECIALIST Neoplasm Of Ovary Laterality Unknown (HCC) CYSTOSCOPY INSERTION 05/09/2021 8:11 Malignant STENT URETER AM CRYPTOLOGIC SUPPORT SPECIALIST Neoplasm Of Ovary Laterality Unknown (HCC) ULTRASOUND LIVER 05/09/2021 8:11 Malignant AM CRYPTOLOGIC SUPPORT SPECIALIST Neoplasm Of Ovary Laterality Unknown (HCC) WEDGE RESECTION 05/09/2021 8:11 Malignant LIVER AM CRYPTOLOGIC SUPPORT SPECIALIST Neoplasm Of Ovary Laterality Unknown (HCC) OMENTECTOMY 05/09/2021 8:11 Malignant AM CRYPTOLOGIC SUPPORT SPECIALIST Neoplasm Of Ovary Laterality Unknown (HCC) HYSTERECTOMY 05/09/2021 8:11 Malignant ABDOMINAL WITH AM CRYPTOLOGIC SUPPORT SPECIALIST Neoplasm Of Ovary SALPINGO - Laterality OOPHORECTOMY Unknown (HCC) DEBULKING TUMOR 05/09/2021 8:11 Malignant OVARY AM CRYPTOLOGIC SUPPORT SPECIALIST Neoplasm Of Ovary Laterality Unknown (HCC) LAPAROTOMY - 05/09/2021 8:11 Malignant EXPLORATORY AM CRYPTOLOGIC SUPPORT SPECIALIST Neoplasm Of Ovary Laterality Unknown (HCC) TYPE AND SCREEN Routine 05/09/2021 7:29 Results f or AM CRYPTOLOGIC SUPPORT SPECIALIST this procedure are in the results section. documented in this encounter Results DX Chest Portable 1 View (05/12/2021 8:50 AM CRYPTOLOGIC SUPPORT SPECIALIST) Anatomical Region Laterality Modality Chest, Thoracic RST LOS, Thoracic ARZ LOS, Thoracic N/A Digital Radiography FLA LOS Specimen (Source) Anatomical Collection Method Collection Time Re ceived Time Location / / Volume Laterality 05/12/2021 8:51 AM CRYPTOLOGIC SUPPORT SPECIALIST Impressions 05/12/2021 8:52 AM CRYPTOLOGIC SUPPORT SPECIALIST No change since 05/10/2021, given differences of technique. Bilateral pleural effusions, greater on the right, layering posteriorly. Stable borderline cardiomegaly, also is accentu ated by technique. Atelectasis or consolidation in both bases. No pneumoth orax. Narrative 05/12/2021 8:52 AM CRYPTOLOGIC SUPPORT SPECIALIST EXAM: ??DX CHEST PORTABLE 1 VIEW [...] bases. No pneumoth orax. Ruben Rod M.D. IMNatalie DIAGNOSTIC IMAGING PROCE DURES (ABNORMAL) Basic Metabolic Panel (05/12/2021 12:35 AM CRYPTOLOGIC SUPPORT SPECIALIST) P athologist Signature Potassium, S 4.7 3.6 - 5.2 05/12/2021 DTL mmol/L 1:20 AM CRYPTOLOGIC SUPPORT SPECIALIST Sodium, S 140 135 - 145 05/12/2021 DTL mmol/L 1:20 AM CRYPTOLOGIC SUPPORT SPECIALIST Chloride, S 105 98 - 107 05/12/2021 DTL mmol/L 1:20 AM CRYPTOLOGIC SUPPORT SPECIALIST Bicarbonate, S 29 22 - 29 05/12/2021 DTL mmol/L 1:20 AM CRYPTOLOGIC SUPPORT SPECIALIST Anion Gap 6 (L) 7 - 15 05/12/2021 DTL 1:20 AM CRYPTOLOGIC SUPPORT SPECIALIST BUN (Blood Urea 12 6 - 21 05/12/2021 DTL Nitrogen), S mg/dL 1:20 AM CRYPTOLOGIC SUPPORT SPECIALIST Creatinine 0.81 0.59 - 05/12/2021 DTL 1.04 mg/dL 1:20 AM CRYPTOLOGIC SUPPORT SPECIALIST eGFR-Non 88 >=60 05/12/2021 DTL Black/ mL/min/BSA 1:20 AM CRYPTOLOGIC SUPPORT SPECIALIST Bel[place]ian Comment: ----ADDITIONAL INFORMATION---- Estimated GFR calculated using the 2009 CKD_EPI creatinine equation. eGFR-Black/ >90 >=60 mL/min/BSA 2020 1:20 AM CRYPTOLOGIC SUPPORT SPECIALIST DTL Comment: ----ADDITIONAL INFORMATION---- Estimated GFR calculated using the 2009 CKD_EPI creatinine equation. Calcium, Total, S 8.4 (L) 8.6 - 10.0 mg/dL 05/12/2021 1:20 AM CRYPTOLOGIC SUPPORT SPECIALIST DTL Glucose, S 93 70 - 140 mg/dL 05/12/2021 1:20 AM CRYPTOLOGIC SUPPORT SPECIALIST D TL Specimen Anatomical Collection Method Collection Time Receive d Time (Source) Location / / Volume Laterality Blood (Blood, 05/12/2021 12:35 05/12/2021 1:04 Venous) AM CRYPTOLOGIC SUPPORT SPECIALIST AM CRYPTOLOGIC SUPPORT SPECIALIST Ruben Rod M.D. LAB BLOOD ADD-ON Performing Organization Address City/State/ZIP Code Phon e Number [facility] [address] [place], [place] [address] [place] [address] [facility] [address] [facility] (ABNORMAL) Basic Metabolic Panel (05/11/2021 12:15 AM CRYPTOLOGIC SUPPORT SPECIALIST) P athologist Signature Potassium, S 4.8 3.6 - 5.2 05/11/2021 DTL mmol/L 1:01 AM CRYPTOLOGIC SUPPORT SPECIALIST Sodium, S 140 135 - 145 05/11/2021 DTL mmol/L 1:01 AM CRYPTOLOGIC SUPPORT SPECIALIST Chloride, S 103 98 - 107 05/11/2021 DTL mmol/L 1:01 AM CRYPTOLOGIC SUPPORT SPECIALIST Bicarbonate, S 30 (H) 22 - 29 05/11/2021 DTL mmol/L 1:01 AM CRYPTOLOGIC SUPPORT SPECIALIST Anion Gap 7 7 - 15 05/11/2021 DTL 1:01 AM CRYPTOLOGIC SUPPORT SPECIALIST BUN (Blood Urea 13 6 - 21 05/11/2021 DTL Nitrogen), S mg/dL 1:01 AM CRYPTOLOGIC SUPPORT SPECIALIST Creatinine 0.87 0.59 - 05/11/2021 DTL 1.04 mg/dL 1:01 AM CRYPTOLOGIC SUPPORT SPECIALIST eGFR-Non 81 >=60 05/11/2021 DTL Black/ mL/min/BSA 1:01 AM CRYPTOLOGIC SUPPORT SPECIALIST [place] Comment: ----ADDITIONAL INFORMATION---- Estimated GFR calculated using the 2009 CKD_EPI creatinine equation. eGFR-Black/ >90 >=60 mL/min/BSA 2020 1:01 AM CRYPTOLOGIC SUPPORT SPECIALIST DTL Comment: ----ADDITIONAL INFORMATION---- Estimated GFR calculated using the 2009 CKD_EPI creatinine equation. Calcium, Total, S 8.7 8.6 - 10.0 mg/dL 05/11/2021 1:01 AM CRYPTOLOGIC SUPPORT SPECIALIST DTL Glucose, S 99 70 - 140 mg/dL 05/11/2021 1:01 AM CRYPTOLOGIC SUPPORT SPECIALIST D TL Specimen Anatomical Collection Method Collection Time Receive d Time (Source) Location / / Volume Laterality Blood (Blood, 05/11/2021 12:15 05/11/2021 Venous) AM CRYPTOLOGIC SUPPORT SPECIALIST 12:46 AM CRYPTOLOGIC SUPPORT SPECIALIST Ruben Rod M.D. LAB BLOOD ADD-ON Performing Organization Address City/[facility] Code Phon e Number [facility] - [address] [place], [place] [address] [place] [address] (ABNORMAL) CBC without Differential (05/11/2021 12:15 AM CRYPTOLOGIC SUPPORT SPECIALIST) [facility] gist Method Time Signature Hemoglobin 8.4 (L) 11.6 - 05/11/2021 DTL 15.0 g/dL 1:30 AM CRYPTOLOGIC SUPPORT SPECIALIST Hematocrit 25.9 (L) 35.5 - 05/11/2021 DTL 44.9 % 1:30 AM CRYPTOLOGIC SUPPORT SPECIALIST Erythrocytes 2.75 (L) 3.92 - 05/11/2021 DTL 5.13 1:30 AM CRYPTOLOGIC SUPPORT SPECIALIST x10(12)/L MCV 94.2 78.2 - 05/11/2021 DTL 97.9 fL 1:30 AM CRYPTOLOGIC SUPPORT SPECIALIST RBC Distrib Width 18.0 (H) 12.2 - 05/11/2021 DTL 16.1 % 1:30 AM CRYPTOLOGIC SUPPORT SPECIALIST Platelet Count 281 157 - 371 05/11/2021 DTL x10(9)/L 1:30 AM CRYPTOLOGIC SUPPORT SPECIALIST Leukocytes 11.9 (H) 3.4 - 9.6 05/11/2021 DTL x10(9)/L 1:30 AM CRYPTOLOGIC SUPPORT SPECIALIST Specimen Anatomical Collection Method Collection Time Receive d Time (Source) Location / / Volume Laterality Blood (Blood, 05/11/2021 12:15 05/11/2021 Venous) AM CRYPTOLOGIC SUPPORT SPECIALIST 12:29 AM CRYPTOLOGIC SUPPORT SPECIALIST Ruben Rod M.D. LAB BLOOD ADD-ON Performing Organization Address City/State/ZIP Code Phon e Number [facility] - [address] [place] [address] DX Chest AP or PA and Lateral 2 Views (05/10/2021 10:41 PM CRYPTOLOGIC SUPPORT SPECIALIST) Anatomical Region Laterality Modality Chest, Thoracic RST LOS, Thoracic ARZ LOS, Thoracic N/A Digital Radiography FLA LOS Specimen (Source) Anatomical Collection Method Collection Time Re ceived Time Location / / Volume Laterality 05/10/2021 10:42 PM CRYPTOLOGIC SUPPORT SPECIALIST Impressions 05/11/2021 8:59 AM CRYPTOLOGIC SUPPORT SPECIALIST Small bilateral pleural effusions. Bilateral lower lung airspace opacities. Low lung volumes. Abdominal d rain. Narrative 05/11/2021 8:59 AM CRYPTOLOGIC SUPPORT SPECIALIST EXAM: ??DX CHEST AP OR PA [...] IMAGING PROCE DURES Potassium (05/10/2021 4:42 AM CRYPTOLOGIC SUPPORT SPECIALIST) athologist Signature Potassium, S 4.8 3.6 - 5.2 05/10/2021 DTL mmol/L 5:48 AM CRYPTOLOGIC SUPPORT SPECIALIST Specimen Anatomical Collection Method Collection Time Receive d Time (Source) Location / / Volume Laterality Blood (Blood, 05/10/2021 4:42 AM 05/10/20 5:39 Venous) CRYPTOLOGIC SUPPORT SPECIALIST AM CRYPTOLOGIC SUPPORT SPECIALIST Sussy Albert M.D. LAB BLOOD ADD-ON Performing Organization Address City/State/ZIP Code Phon e Number [facility] - [address] [place], [place] [address] [place] [address] [facility] [address] (ABNORMAL) Comprehensive Metabolic Panel (05/10/2021 1:19 AM CRYPTOLOGIC SUPPORT SPECIALIST) athologist Signature Potassium, S 5.4 (H) 3.6 - 5.2 05/10/2021 DTL mmol/L 1:58 AM CRYPTOLOGIC SUPPORT SPECIALIST Sodium, S 137 135 - 145 05/10/2021 DTL mmol/L 1:58 AM CRYPTOLOGIC SUPPORT SPECIALIST Chloride, S 103 98 - 107 05/10/2021 DTL mmol/L 1:58 AM CRYPTOLOGIC SUPPORT SPECIALIST Bicarbonate, S 22 22 - 29 05/10/2021 DTL mmol/L 1:58 AM CRYPTOLOGIC SUPPORT SPECIALIST Anion Gap 12 7 - 15 05/10/2021 DTL 1:58 AM CRYPTOLOGIC SUPPORT SPECIALIST BUN (Blood Urea 14 6 - 21 05/10/2021 DTL Nitrogen), S mg/dL 1:58 AM CRYPTOLOGIC SUPPORT SPECIALIST Creatinine 0.76 0.59 - 05/10/2021 DTL 1.04 mg/dL 1:58 AM CRYPTOLOGIC SUPPORT SPECIALIST eGFR-Non >90 >=60 05/10/2021 DTL Black/ mL/min/BSA 1:58 AM CRYPTOLOGIC SUPPORT SPECIALIST [place] Comment: ----ADDITIONAL INFORMATION---- Estimated GFR calculated using the 2009 CKD_EPI creatinine equation. eGFR-Black/ >90 >=60 mL/min/BSA 2020 1:58 AM CRYPTOLOGIC SUPPORT SPECIALIST DTL Comment: ----ADDITIONAL INFORMATION---- Estimated GFR calculated using the 2009 CKD_EPI creatinine equation. Calcium, Total, S 8.5 (L) 8.6 - 10.0 mg/dL 05/10/2021 1:58 AM CRYPTOLOGIC SUPPORT SPECIALIST DTL Glucose, S 126 70 - 140 mg/dL 05/10/2021 1:58 AM CRYPTOLOGIC SUPPORT SPECIALIST D TL Protein, Total, S 5.7 (L) 6.3 - 7.9 g/dL 05/10/2021 1:58 A M CRYPTOLOGIC SUPPORT SPECIALIST DTL Albumin, S 4.2 3.5 - 5.0 g/dL 05/10/2021 1:58 AM CRYPTOLOGIC SUPPORT SPECIALIST D TL Aspartate Aminotransferase 598 (H) 8 - 43 U/L 05/10/2021 1 :58 AM CRYPTOLOGIC SUPPORT SPECIALIST DTL (AST), S Alkaline Phosphatase, S 49 35 - 104 U/L 05/10/2021 1: 58 AM CRYPTOLOGIC SUPPORT SPECIALIST DTL Alanine Aminotransferase 297 (H) 7 - 45 U/L 05/10/2021 1:5 8 AM CRYPTOLOGIC SUPPORT SPECIALIST DTL (ALT), S Bilirubin, Total, S 1.0 <=1.2 mg/dL 05/10/2021 1:58 AM CRYPTOLOGIC SUPPORT SPECIALIST DTL Specimen Anatomical Collection Method Collection Time Receive d Time (Source) Location / / Volume Laterality Blood (Blood, 05/10/2021 1:19 AM 05/10/20 1:27 Venous) CRYPTOLOGIC SUPPORT SPECIALIST AM CRYPTOLOGIC SUPPORT SPECIALIST Che Martinez M.D. LAB BLOOD ADD-ON Performing Organization Address City/State/ZIP Code Phon e Number [facility] - [address] [place], [place] [address] [place] [address] [facility] [address] (ABNORMAL) CBC without Differential (05/10/2021 1:19 AM CRYPTOLOGIC SUPPORT SPECIALIST) [facility] gist Method Time Signature Hemoglobin 9.6 (L) 11.6 - 05/10/2021 DHPM 15.0 g/dL 1:58 AM CRYPTOLOGIC SUPPORT SPECIALIST Hematocrit 29.5 (L) 35.5 - 05/10/2021 DHPM 44.9 % 1:58 AM CRYPTOLOGIC SUPPORT SPECIALIST Erythrocytes 3.15 (L) 3.92 - 05/10/2021 DHPM 5.13 1:58 AM CRYPTOLOGIC SUPPORT SPECIALIST x10(12)/L MCV 93.7 78.2 - 05/10/2021 DHPM 97.9 fL 1:58 AM CRYPTOLOGIC SUPPORT SPECIALIST RBC Distrib Width 17.5 (H) 12.2 - 05/10/2021 DHPM 16.1 % 1:58 AM CRYPTOLOGIC SUPPORT SPECIALIST Platelet Count 270 157 - 371 05/10/2021 DHPM x10(9)/L 1:58 AM CRYPTOLOGIC SUPPORT SPECIALIST Leukocytes 13.5 (H) 3.4 - 9.6 05/10/2021 DHPM x10(9)/L 1:58 AM CRYPTOLOGIC SUPPORT SPECIALIST Specimen Anatomical Collection Method Collection Time Receive d Time (Source) Location / / Volume Laterality Blood (Blood, 05/10/2021 1:19 AM 05/10/20 1:27 Venous) CRYPTOLOGIC SUPPORT SPECIALIST AM CRYPTOLOGIC SUPPORT SPECIALIST Che Martinez M.D. LAB BLOOD ADD-ON Performing Organization Address City/State/ZIP Code Phon e Number [address] [address] [place] [address] Laboratories-[address] DX Abdomen 1 View (05/09/2021 5:14 PM CRYPTOLOGIC SUPPORT SPECIALIST) Anatomical Region Laterality Modality Abdomen, Abdominal RST LOS, Abdominal ARZ LOS, N/A Computed Radiography Abdominal FLA LOS Specimen (Source) Anatomical Collection Method Collection Time Re ceived Time Location / / Volume Laterality 05/09/2021 5:16 PM CRYPTOLOGIC SUPPORT SPECIALIST Impressions 05/09/2021 5:34 PM CRYPTOLOGIC SUPPORT SPECIALIST Examination negative for postoperative purposes. Surgical changes in the pelvis. Expected postoperative pn eumoperitoneum. Grossly unremarkable imaged lung bases. Elevated right hemidi aphragm. Narrative 05/09/2021 5:34 PM CRYPTOLOGIC SUPPORT SPECIALIST EXAM: ??DX ABDOMEN 1 VIEW Procedure Note Aden Blanco D.O. - 05/09/2021 EXAM: DX ABDOMEN 1 VIEW IMPRESSION: Examination negative for postoperative p urposes. Surgical changes in the pelvis. Expected postoperative pn eumoperitoneum. Grossly unremarkable imaged lung bases. Elevated right hemidi aphragm. Denisha Oviedo M.D. IMG DIAGNOSTIC IMAGING PROCE SWATHI Patient Status (05/09/2021 3:39 PM CRYPTOLOGIC SUPPORT SPECIALIST) athologist Signature Temperature 36.2 37.0 deg C 05/09/2021 METH 3:40 PM CRYPTOLOGIC SUPPORT SPECIALIST FIO2 0.34 0.21=AIR 05/09/2021 METH 3:40 PM CRYPTOLOGIC SUPPORT SPECIALIST Specimen Anatomical Collection Method Collection Time Receive d Time (Source) Location / / Volume Laterality Blood 05/09/2021 3:39 PM 3:39 CRYPTOLOGIC SUPPORT SPECIALIST PM CRYPTOLOGIC SUPPORT SPECIALIST Abbey Kelly APRN, CRNA LAB BLOOD NON ADD-ON Performing Organization Address City/[facility]/ZIP [facility] Phon e Number [facility] - [address] [place] [address] [address] [facility] (ABNORMAL) Glucose, Whole Blood (05/09/2021 3:39 PM CRYPTOLOGIC SUPPORT SPECIALIST) athologist [facility] Glucose 174 (H) 70 - 140 05/09/2021 METH mg/dL 3:43 PM CRYPTOLOGIC SUPPORT SPECIALIST Specimen Anatomical Collection Method Collection Time Receive d Time (Source) Location / / Volume Laterality Blood (Blood, 05/09/2021 3:39 PM 05/09/20 3:39 Arterial Line) CRYPTOLOGIC SUPPORT SPECIALIST PM CRYPTOLOGIC SUPPORT SPECIALIST Harrison Aguilar M.D. LAB BLOOD TROPONIN Performing Organization Address City/[facility] Phon e Number [facility] - [address] Potassium, Blood (05/09/2021 3:39 PM CRYPTOLOGIC SUPPORT SPECIALIST) athologist [facility] Potassium, B 3.8 3.6 - 5.2 05/09/2021 METH mmol/L 3:43 PM CRYPTOLOGIC SUPPORT SPECIALIST Specimen Anatomical Collection Method Collection Time Receive d Time (Source) Location / / Volume Laterality Blood (Blood, 05/09/2021 3:39 PM 05/09/20 3:39 Arterial Line) CRYPTOLOGIC SUPPORT SPECIALIST PM CRYPTOLOGIC SUPPORT SPECIALIST Harrison Aguilar M.D. LAB BLOOD NON ADD-ON Performing Organization Address City/[facility]/ZIP Code Phon e Number [facility] - [address] [place], [place] [address] [place] [address] Sodium, B (05/09/2021 3:39 PM CRYPTOLOGIC SUPPORT SPECIALIST) athologist Signature Sodium, B 140 135 - 145 05/09/2021 3:43 METH mmol/L PM CRYPTOLOGIC SUPPORT SPECIALIST Specimen Anatomical Collection Method Collection Time Receive d Time (Source) Location / / Volume Laterality Blood (Blood, 05/09/2021 3:39 PM 05/09/20 3:39 Arterial Line) CRYPTOLOGIC SUPPORT SPECIALIST PM CRYPTOLOGIC SUPPORT SPECIALIST Harrison Aguilar M.D. LAB BLOOD NON ADD-ON Performing Organization Address City/[facility]/ZIP Code Phon e Number [facility] - 200 [place], [place] [address] [place] [address] (ABNORMAL) Calcium, Ionized (05/09/2021 3:39 PM CRYPTOLOGIC SUPPORT SPECIALIST) athologist Signature Calcium, 4.51 (L) 4.65 - 05/09/2021 METH Ionized, B 5.30 mg/dL 3:43 PM CRYPTOLOGIC SUPPORT SPECIALIST Specimen Anatomical Collection Method Collection Time Receive d Time (Source) Location / / Volume Laterality Blood (Blood, 05/09/2021 3:39 PM 05/09/20 3:39 Arterial Line) CRYPTOLOGIC SUPPORT SPECIALIST PM CRYPTOLOGIC SUPPORT SPECIALIST Harrison Aguilar M.D. LAB BLOOD NON ADD-ON Performing Organization Address City/[facility]/ZIP Code Phon e Number [facility] - [address] [place] [address] [address] [place] [address] (ABNORMAL) Blood Gas with Coox, Arterial (05/09/2021 3:39 PM CRYPTOLOGIC SUPPORT SPECIALIST) athologist Signature pO2 222 (H) 83 - 108 05/09/2021 METH mm Hg 3:43 PM CRYPTOLOGIC SUPPORT SPECIALIST pCO2 40 32 - 45 mm 05/09/2021 METH Hg 3:43 PM CRYPTOLOGIC SUPPORT SPECIALIST pH 7.40 7.35 - 05/09/2021 METH 7.45 pH 3:43 PM CRYPTOLOGIC SUPPORT SPECIALIST Base Excess -1 -2 - 3 05/09/2021 METH mmol/L 3:43 PM CRYPTOLOGIC SUPPORT SPECIALIST HCO3 25 22 - 26 05/09/2021 METH mmol/L 3:43 PM CRYPTOLOGIC SUPPORT SPECIALIST Hemoglobin, B 8.1 (L) 11.6 - 05/09/2021 METH 15.0 g/dL 3:43 PM CRYPTOLOGIC SUPPORT SPECIALIST O2Hb 98.3 (H) 94.0 - 05/09/2021 METH 98.0 % 3:43 PM CRYPTOLOGIC SUPPORT SPECIALIST COHb 1.4 <3.0 % 05/09/2021 METH 3:43 PM CRYPTOLOGIC SUPPORT SPECIALIST MetHb <1.0 <1.5 % 05/09/2021 METH 3:43 PM CRYPTOLOGIC SUPPORT SPECIALIST CtO2 11.7 (L) 18.0 - 05/09/2021 METH 21.0 vol % 3:43 PM CRYPTOLOGIC SUPPORT SPECIALIST Specimen Anatomical Collection Method Collection Time Receive d Time (Source) Location / / Volume Laterality Blood (Blood, 05/09/2021 3:39 PM 05/09/20 3:39 Arterial Line) CRYPTOLOGIC SUPPORT SPECIALIST PM CRYPTOLOGIC SUPPORT SPECIALIST Harrison Aguilar M.D. LAB BLOOD NON ADD-ON Performing Organization Address City/[facility]/ZIP Code Phon e Number [facility] [address] [place], [place] [address] [place] [address] [facility] [address] [facility] Patient Status (05/09/2021 1:01 PM CRYPTOLOGIC SUPPORT SPECIALIST) athologist Signature Temperature 35.7 37.0 deg C 05/09/2021 METH 1:01 PM CRYPTOLOGIC SUPPORT SPECIALIST FIO2 0.40 0.21=AIR 05/09/2021 METH 1:01 PM CRYPTOLOGIC SUPPORT SPECIALIST Specimen Anatomical Collection Method Collection Time Receive d Time (Source) Location / / Volume Laterality Blood 05/09/2021 1:01 PM 1:01 CRYPTOLOGIC SUPPORT SPECIALIST PM CRYPTOLOGIC SUPPORT SPECIALIST Abbey Kelly APRN, [employer] OPERATOR LAB BLOOD NON ADD-ON Performing Organization Address City/State/ZIP Code Phon e Number [facility] - [address] [place], [place] [address] [place] [address] [facility] [address] [facility] (ABNORMAL) Glucose, Whole Blood (05/09/2021 1:01 PM CRYPTOLOGIC SUPPORT SPECIALIST) athologist Signature Glucose 185 (H) 70 - 140 05/09/2021 METH mg/dL 1:08 PM CRYPTOLOGIC SUPPORT SPECIALIST Specimen Anatomical Collection Method Collection Time Receive d Time (Source) Location / / Volume Laterality Blood (Blood, 05/09/2021 1:01 PM 05/09/20 1:01 Arterial Line) CRYPTOLOGIC SUPPORT SPECIALIST PM CRYPTOLOGIC SUPPORT SPECIALIST Harrison Aguilar M.D. LAB BLOOD TROPONIN Performing Organization Address City/[facility]/ZIP Code Phon e Number [facility] [address] [place], [place] [address] [place] [id number] [facility] [address] [facility] Potassium, Blood (05/09/2021 1:01 PM CRYPTOLOGIC SUPPORT SPECIALIST) athologist Signature Potassium, B 3.6 3.6 - 5.2 05/09/2021 METH mmol/L 1:08 PM CRYPTOLOGIC SUPPORT SPECIALIST Specimen Anatomical Collection Method Collection Time Receive d Time (Source) Location / / Volume Laterality Blood (Blood, 05/09/2021 1:01 PM 05/09/20 1:01 Arterial Line) CRYPTOLOGIC SUPPORT SPECIALIST PM CRYPTOLOGIC SUPPORT SPECIALIST Harrison Aguilar M.D. LAB BLOOD NON ADD-ON Performing Organization Address City/[facility]/ZIP Code Phon e Number [facility] - [address] [place], [place] [address] [address] [place] [address] [place] [address] [address] [facility] Sodium, B (05/09/2021 1:01 PM CRYPTOLOGIC SUPPORT SPECIALIST) athologist Signature Sodium, B 140 135 - 145 05/09/2021 1:08 METH mmol/L PM CRYPTOLOGIC SUPPORT SPECIALIST Specimen Anatomical Collection Method Collection Time Receive d Time (Source) Location / / Volume Laterality Blood (Blood, 05/09/2021 1:01 PM 05/09/20 1:01 Arterial Line) CRYPTOLOGIC SUPPORT SPECIALIST PM CRYPTOLOGIC SUPPORT SPECIALIST Harrison Aguilar M.D. LAB BLOOD NON ADD-ON Performing Organization Address City/State/ZIP Code Phon e Number [facility] - [address] [place], [place] [address] [place] [address] [facility]-[address] (ABNORMAL) Calcium, Ionized (05/09/2021 1:01 PM CRYPTOLOGIC SUPPORT SPECIALIST) athologist Signature Calcium, 4.52 (L) 4.65 - 05/09/2021 METH Ionized, B 5.30 mg/dL 1:08 PM CRYPTOLOGIC SUPPORT SPECIALIST Specimen Anatomical Collection Method Collection Time Receive d Time (Source) Location / / Volume Laterality Blood (Blood, 05/09/2021 1:01 PM 05/09/20 1:01 Arterial Line) CRYPTOLOGIC SUPPORT SPECIALIST PM CRYPTOLOGIC SUPPORT SPECIALIST Harrison Aguilar M.D. LAB BLOOD NON ADD-ON Performing Organization Address City/[facility] Phon e Number [facility] - [address] [place], [place] [address] [place] [address] [facility]-[address] (ABNORMAL) Blood Gas with Coox, Arterial (05/09/2021 1:01 PM CRYPTOLOGIC SUPPORT SPECIALIST) P athologist Signature pO2 213 (H) 83 - 108 05/09/2021 METH mm Hg 1:08 PM CRYPTOLOGIC SUPPORT SPECIALIST pCO2 38 32 - 45 mm 05/09/2021 METH Hg 1:08 PM CRYPTOLOGIC SUPPORT SPECIALIST pH 7.41 7.35 - 05/09/2021 METH 7.45 pH 1:08 PM CRYPTOLOGIC SUPPORT SPECIALIST Base Excess -1 -2 - 3 05/09/2021 METH mmol/L 1:08 PM CRYPTOLOGIC SUPPORT SPECIALIST HCO3 24 22 - 26 05/09/2021 M[facility] mmol/L 1:08 PM CRYPTOLOGIC SUPPORT SPECIALIST Hemoglobin, B 9.2 (L) 11.6 - 05/09/2021 METH 15.0 g/dL 1:08 PM CRYPTOLOGIC SUPPORT SPECIALIST O2Hb 99.7 (H) 94.0 - 05/09/2021 METH 98.0 % 1:08 PM CRYPTOLOGIC SUPPORT SPECIALIST COHb 1.1 <3.0 % 05/09/2021 METH 1:08 PM CRYPTOLOGIC SUPPORT SPECIALIST MetHb <1.0 <1.5 % 05/09/2021 METH 1:08 PM CRYPTOLOGIC SUPPORT SPECIALIST CtO2 13.4 (L) 18.0 - 05/09/2021 METH 21.0 vol % 1:08 PM CRYPTOLOGIC SUPPORT SPECIALIST Specimen Anatomical Collection Method Collection Time Receive d Time (Source) Location / / Volume Laterality Blood (Blood, 05/09/2021 1:01 PM 05/09/20 1:01 Arterial Line) CRYPTOLOGIC SUPPORT SPECIALIST PM CRYPTOLOGIC SUPPORT SPECIALIST Harrison Aguilar M.D. LAB BLOOD NON ADD-ON Performing Organization Address City/State/ZIP Code Phon e Number [facility] - [address] [place], [place] [address] [place] [address] [facility] [address] Surgical Pathology, Frozen Lab (05/09/2021 10:04 AM CRYPTOLOGIC SUPPORT SPECIALIST) Component Value Ref Test Analysis Performed Pathologis t Range Method Time At Signature 05/11/2021 METH 2:48 PM CRYPTOLOGIC SUPPORT SPECIALIST Participated in Tim Rodrigues M.D. 05/11/2021 M[facility] the -Pathology 2:48 PM Interpretation Resident CRYPTOLOGIC SUPPORT SPECIALIST Report Sophia Ndiaye M.D. [phone] 05/11/2021 MET H electronically 2:48 PM signed by CRYPTOLOGIC SUPPORT SPECIALIST I verify that I have examined all relevant slides/materials for the specimen(s) and rendered or confirmed the diagnosis. Gross Description A. ??Received fresh labeled umbilical nodule is a 2.2 x 05/11/2021 M[facility] 1.7 2:48 PM x 0.6 cm fragment of red-orosco soft tissue. ??There is a 0.7 x CRYPTOLOGIC SUPPORT SPECIALIST 0.6 cm nodule identified upon sectioning. ??All submitted for permanent sections only. ??Grossed by PDH. B. ??Received fresh labeled falciform ligament is a 3.9 x 3.2 x 0.6 cm portion of pink-red fibrofatty tissue. Hospitality Associate tissue submitted for permanent sections only. Grossed by PDH. C. ??Received fresh labeled omentum is a 42 x 12 x 1 cm portion of omentum. ??There is a 0.3 x 0.2 x 0.2 cm calcified nodule. ??Lymph nodes are identified. ??Hospitality Associate tissu e submitted for permanent sections only. ??Grossed by RAL. D. ??Received fresh labeled liver wedge segment 4B/3 nodule is a 18 gram, 4.3 x 3.8 x 3.7 cm liver wedge specimen. ??A single 2.6 x 2.4 x 1.4 cm orosco-white mass is present 0.1 cm from the inked surgical margin. ??Margin is submitted perpendicularly. ??Hospitality Associate tissue submitted for permanent sections only. ??Grossed by DJS. Box. ??Received fresh labeled right diaphragm is a 7.1 x 3.2 x 1.6 cm portion of red-orosco fibrous tissue. ??At one aspect, there is a 3.6 x 1.7 x 0.6 cm nodule. ??Additional smaller nodules are identified. ??Hospitality Associate tissue submitted for permanent sections only. ??Grossed by PDH. Brizuela. ??Received fresh labeled right anterior abdominal wall is a 3.8 x 2 x 0.5 cm portion of red-pink, peritonealized fibromembranous tissue. ??A 0.2 cm nodule is present. Hospitality Associate tissue submitted for permanent sections only. [...] nodule. Hilar lymph nodes are not identified. ??Hospitality Associate tissue submitted for permanent sections only. [...] tube has multiple adhesions and serosal implants. ??Hospitality Associate tissue submitted for permanent sections only. [...] 3 x 1.6 cm of soft tissue. Hospitality Associate tissue submitted for permanent sections only. Grossed by RAK. Gallegos ??Received fresh labeled portion of sigmoid colon is a 13.5 cm in length portion of colon. ??There are serosal tumor implants and adhesions. ??The mucosa is unremarkable. Hospitality Associate tissue submitted for permanent sections only. Grossed by EDNA. Block Summary A Umbilical nodule 05/11/2021 [facility] A1 Umbilical nodule 1 2:48 PM A2 Umbilical nodule 2 CRYPTOLOGIC SUPPORT SPECIALIST B Falciform ligament B1 Nodular area [...] will be performed on block J2 at [facility] 3:33 PM [facility], [place], [place]. CRYPTOLOGIC SUPPORT SPECIALIST Signed by James Pantoja M.D., Ph.D. 07/01/2021 3:33 PM Comment: REVISED RESULTS Interpretation FINAL DIAGNOSIS 07/01/2021 3:33 PM CRYPTOLOGIC SUPPORT SPECIALIST METH J. ??Fallopian tube and ovary, [...] Volume Laterality Tissue 05/09/2021 10:04 (Umbilicus) AM CRYPTOLOGIC SUPPORT SPECIALIST Tissue (Pelvis) 05/09/2021 10:06 AM CRYPTOLOGIC SUPPORT SPECIALIST Tissue (Omentum) 05/09/2021 10:57 AM CRYPTOLOGIC SUPPORT SPECIALIST Tissue (Liver) 05/09/2021 11:43 AM CRYPTOLOGIC SUPPORT SPECIALIST Tissue 05/09/2021 11:59 (Diaphragm, AM CRYPTOLOGIC SUPPORT SPECIALIST Right) Tissue (Abdomen) 05/09/2021 12:07 PM CRYPTOLOGIC SUPPORT SPECIALIST Tissue (Pelvis, 05/09/2021 12:11 Right) PM CRYPTOLOGIC SUPPORT SPECIALIST Tissue 05/09/2021 12:36 (Diaphragm, Left) PM CRYPTOLOGIC SUPPORT SPECIALIST Tissue (Spleen) 05/09/2021 12:57 PM CRYPTOLOGIC SUPPORT SPECIALIST Tissue (Ovary, 05/09/2021 1:22 PM Right) CRYPTOLOGIC SUPPORT SPECIALIST Tissue (Uterus) 05/09/2021 3:05 PM CRYPTOLOGIC SUPPORT SPECIALIST Tissue (Colon) 05/09/2021 3:10 PM CRYPTOLOGIC SUPPORT SPECIALIST Narrative This result has an attachment that is no t available. Denisha Oviedo M.D. LAB SURG PATH ORDERABLES Performing Organization Address [facility] Phon e Number [facility] - [address] [place] [address] [address] [place] [address] [facility] [address] [facility] Type and Screen (with reflex Antibody ID) (05/09/2021 7:29 AM CRYPTOLOGIC SUPPORT SPECIALIST) [facility] gist Method Time Signature ABORh B Neg Not 05/09/2021 ETR[facility] applicable 9:21 AM CRYPTOLOGIC SUPPORT SPECIALIST Antibody Negative Negative 05/09/2021 E[facility] Screen 9:32 AM CRYPTOLOGIC SUPPORT SPECIALIST Type & Screen 05/12/2021 05/09/2021 ETRM Expiration 23:59 9:21 AM CRYPTOLOGIC SUPPORT SPECIALIST Testing Alberto DEFAULT 05/09/2021 ETRM Location 8:27 AM CRYPTOLOGIC SUPPORT SPECIALIST Specimen Anatomical Collection Method Collection Time Receive d Time (Source) Location / / Volume Laterality Blood (Blood, 05/09/2021 7:29 AM 05/09/20 8:27 Venous) CRYPTOLOGIC SUPPORT SPECIALIST AM CRYPTOLOGIC SUPPORT SPECIALIST Denisha Oviedo M.D. LAB BLOOD BANK TEST ORDERABL ES Performing Organization Address [facility] Phon e Number [facility] - [address] [place] [address] [address] [facility] [place] [address] documented in this encounter Visit Diagnoses [...] 5:51 PM 1,000 mg 400 mL/hr mg CRYPTOLOGIC SUPPORT SPECIALIST 1,000 mg, intravenous, at 400 mL/hr, Administer [...] 1,000 mg (TYLENOL) Given 05/09/2021 8:00 AM CRYPTOLOGIC SUPPORT SPECIALIST 1,000 mg 1,000 mg, oral, Once, On Sun05/09/21 at 0745, For 1 dose, Pre-Op, In Pre Op holding (PWA) acetaminophen tablet 1,000 mg (TYLENOL) Given 05/14/2021 6:19 AM CRYPTOLOGIC SUPPORT SPECIALIST 1,000 mg 1,000 mg, oral, Every 6 hours, First dose on Sun05/10/21 at 0000, not to exceed 4 grams in 24 hours. Given 05/13/2021 11:53 PM CRYPTOLOGIC SUPPORT SPECIALIST 1,000 mg Given 05/13/2021 5:50 PM CRYPTOLOGIC SUPPORT SPECIALIST 1,000 mg alvimopan capsule 12 mg (ENTEREG) Given 05/11/2021 8:55 AM CRYPTOLOGIC SUPPORT SPECIALIST 12 mg 12 mg, oral, 2 times daily, First dose on Sun05/09/21 at 2100, For 7 days, Until bowel movement or hospital discharge. Maximum 7 days., Has the patient received fewer than 15 doses? Yes, I certify that I have reviewed and ensured compliance to the REMS program requirements outlined in the reference links: Yes Given 05/10/2021 9:12 PM CRYPTOLOGIC SUPPORT SPECIALIST 12 mg Given 05/10/2021 8:25 AM CRYPTOLOGIC SUPPORT SPECIALIST 12 mg benzocaine-menthoL 15-3.6 mg per lozenge 1 Given 05/10 1:26 AM CRYPTOLOGIC SUPPORT SPECIALIST 1 lozenge lozenge (CEPACOL) 1 lozenge, oral, As needed, sore throat, Starting on Sun05/09/21 at 2025 calcium carbonate chewable tablet Given 05/11/2021 6:3 1 PM CRYPTOLOGIC SUPPORT SPECIALIST 400 mg of calcium 400 mg of calcium (TUMS) 400 mg of calcium, oral, 3 times daily PRN, indigestion, heartburn, Starting on Sun05/09/21 at 2027, Doses listed are in mg of elemental calcium. Take with food. 500 mg calcium carbonate contains 200 mg of elemental calcium. ceFAZolin in dextrose (iso-os) IVPB 2 New Bag 05/10/2021 3:20 PM CRYPTOLOGIC SUPPORT SPECIALIST 2 g 200 mL/hr g (ANCEF) 2 g, intravenous, at 200 mL/hr, Administer over 30 Minutes, Every 8 hours, First dose on Sun05/09/21 at 2300, For 24 hours, Drug Monitoring Program: Pharmacist to adjust medication dosing based on indication and drug clearance factors., Indications: Prophylaxis, surgical New Bag 05/10/2021 6:53 AM CRYPTOLOGIC SUPPORT SPECIALIST 2 g 200 mL/hr New Bag 05/09/2021 11:18 PM CRYPTOLOGIC SUPPORT SPECIALIST 2 g 200 mL/hr celecoxib capsule 400 mg (CeleBREX) Given 05/09/2021 7:59 AM CRYPTOLOGIC SUPPORT SPECIALIST 400 mg 400 mg, oral, Once, On Sun05/09/21 at 0745, For 1 dose, Pre-Op, Pre-procedure on unit. Not to be administered for true sulfa allergy, acute GI bleed, history of GI bleed within past 6 months, or NSAID contraindications. cyclobenzaprine tablet 5 mg (FLEXERIL) Given 05/10/2021 4:31 AM CRYPTOLOGIC SUPPORT SPECIALIST 5 mg 5 mg, oral, Once as needed, muscle spasms, Starting on Sun05/10/21 at 0312, For 1 dose cyclobenzaprine tablet 5 mg (FLEXERIL) Given 05/14/2021 2:11 AM CRYPTOLOGIC SUPPORT SPECIALIST 5 mg 5 mg, oral, 3 times daily PRN, muscle spasms, Starting on Misty 05/12/21 at 0744 Given 05/13/2021 8:26 PM CRYPTOLOGIC SUPPORT SPECIALIST 5 mg Given 05/13/2021 2:01 PM CRYPTOLOGIC SUPPORT SPECIALIST 5 mg diphenhydrAMINE capsule 25 mg (BENADRYL) Given 05/10/2021 4:31 AM CRYPTOLOGIC SUPPORT SPECIALIST 25 mg 25 mg, oral, Every 6 hours PRN, itching, sleep, Starting on Sun05/10/21 at 0251 enoxaparin injection 40 mg Given 05/13/2021 2:01 PM CRYPTOLOGIC SUPPORT SPECIALIST 40 mg Left Outer Thigh (LOVENOX) 40 mg, subcutaneous, Daily, First dose on Sun05/11/21 at 1400 Given 05/12/2021 2:58 PM CRYPTOLOGIC SUPPORT SPECIALIST 40 mg Right Outer Thigh Given 05/11/2021 2:06 PM CRYPTOLOGIC SUPPORT SPECIALIST 40 mg Right Upper Hip haloperidol lactate injection 1 mg (HALD OL) Given 05/10/2021 5:50 PM CRYPTOLOGIC SUPPORT SPECIALIST 1 mg 1 mg, intravenous, Every 6 [...] promethazine) heparin (porcine) Given 05/11/2021 5:24 AM CRYPTOLOGIC SUPPORT SPECIALIST 5,000 Units Right Outer Thigh injection 5,000 Units 5,000 Units, subcutaneous, Every 8 hours scheduled, First dose on Sun05/09/21 at 2200 Given 05/10/2021 9:12 PM CRYPTOLOGIC SUPPORT SPECIALIST 5,000 Units Left Outer Thigh Given 05/10/2021 2:36 PM CRYPTOLOGIC SUPPORT SPECIALIST 5,000 Units Left Outer Thigh HYDROmorphone (PF) [...] oral pain medication. Given 05/10/2021 7:52 PM CRYPTOLOGIC SUPPORT SPECIALIST 0.4 mg Given 05/10/2021 3:31 PM CRYPTOLOGIC SUPPORT SPECIALIST 0.4 mg HYDROmorphone tablet 2 mg (DILAUDID) Given 05/10/2021 1:15 PM CRYPTOLOGIC SUPPORT SPECIALIST 2 mg 2 mg, oral, Every 4 hours PRN, severe pain or score 7-10 of 10, Starting on Sun05/10/21 at 1238 HYDROmorphone tablet 2 mg (DILAUDID) Given 05/14/2021 10:29 AM CRYPTOLOGIC SUPPORT SPECIALIST 2 mg 2 mg, oral, Every 4 hours PRN, moderate pain or score 4-6 of 10, Starting on Sun05/10/21 at 1518 Given 05/14/2021 6:23 AM CRYPTOLOGIC SUPPORT SPECIALIST 2 mg Given 05/12/2021 2:59 PM CRYPTOLOGIC SUPPORT SPECIALIST 2 mg HYDROmorphone tablet 4 mg (DILAUDID) Given 05/14/2021 2:11 AM CRYPTOLOGIC SUPPORT SPECIALIST 4 mg 4 mg, oral, Every 4 hours PRN, severe pain or score 7-10 of 10, Starting on Sun05/10/21 at 1518 Given 05/13/2021 8:26 PM CRYPTOLOGIC SUPPORT SPECIALIST 4 mg Given 05/13/2021 4:19 PM CRYPTOLOGIC SUPPORT SPECIALIST 4 mg ibuprofen tablet 600 mg (ADVIL,MOTRIN) Given 05/14/2021 6:19 AM CRYPTOLOGIC SUPPORT SPECIALIST 600 mg 600 mg, oral, Every 6 hours, First dose on Sun05/10/21 at 1900, start 6 hours after last ketorolac dose administered Given 05/13/2021 11:54 PM CRYPTOLOGIC SUPPORT SPECIALIST 600 mg Given 05/13/2021 5:50 PM CRYPTOLOGIC SUPPORT SPECIALIST 600 mg ketorolac injection 15 mg (TORADOL) Given 05/10/2021 12:32 PM CRYPTOLOGIC SUPPORT SPECIALIST 15 mg 15 mg, intravenous, Every 6 [...] drug clearance factors. Given 05/10/2021 6:01 AM CRYPTOLOGIC SUPPORT SPECIALIST 15 mg Given 05/10/2021 1:16 AM CRYPTOLOGIC SUPPORT SPECIALIST 15 mg lactated ringers Continued from OR 05/09/2021 5:33 PM CRYPTOLOGIC SUPPORT SPECIALIST 20 mL/hr 20 mL/hr 20 mL/hr, intravenous, Continuous, Starting on Sun05/09/21 at 1530, PACU & Post-Op lactated ringers Rate/Dose Change 05/09/2021 6:59 PM CRYPTOLOGIC SUPPORT SPECIALIST 40 mL/hr 40 mL/hr 40 mL/hr, intravenous, Continuous, Starting on Sun05/09/21 at 1845 lisdexamfetamine capsule 70 mg (VYVANSE) Given 05/14/2021 6:19 AM CRYPTOLOGIC SUPPORT SPECIALIST 70 mg 70 mg, oral, Daily, First dose on Sun05/10/21 at 0700, See tube feeding guidelines for tube feeding administration instructions. Given 05/13/2021 6:06 AM CRYPTOLOGIC SUPPORT SPECIALIST 70 mg Given 05/12/2021 6:56 AM CRYPTOLOGIC SUPPORT SPECIALIST 70 mg magnesium hydroxide suspension 30 mL (MILK OF Given 8:26 PM CRYPTOLOGIC SUPPORT SPECIALIST 30 mL MAGNESIA) 30 mL, oral, 2 times daily, First dose on Sun05/09/21 at 2100, Starting evening of surgery. After first bowel movement discontinue Magnesium hydroxide Given 05/13/2021 9:55 AM CRYPTOLOGIC SUPPORT SPECIALIST 30 mL Given 05/12/2021 7:07 PM CRYPTOLOGIC SUPPORT SPECIALIST 30 mL MCV4: quadrivalent meningococcal Given 05/12/2021 7:08 PM CRYPTOLOGIC SUPPORT SPECIALIST 0. 5 mL Other conjugate (PF) vaccine 0.5 mL (MENVEO) 0.5 mL, intramuscular, Once, On Misty 05/12/21 at 1600, For 1 dose melatonin tablet 3 mg Given 05/11/2021 10:21 PM CRYPTOLOGIC SUPPORT SPECIALIST 3 mg 3 mg, oral, Bedtime PRN, sleep, Starting on Sun05/09/21 at 2027 MenB: meningococcal B vaccine 0.5 mL Given 05/12/2021 7:12 PM CS T 0.5 mL Other (BEXSERO) 0.5 mL, intramuscular, Once, On Sun05/12/21 at 1600, For 1 dose metroNIDAZOLE in NaCl (iso-osm) New Bag 05/10/2021 2:36 PM CRYPTOLOGIC SUPPORT SPECIALIST 500 mg 200 mL/hr IVPB 500 mg (FLAGYL) 500 mg, intravenous, at 200 mL/hr, Administer over 30 Minutes, Every 8 hours, First dose on Sun05/09/21 at 2230, For 24 hours, Indications: Prophylaxis, surgical New Bag 05/10/2021 6:00 AM CRYPTOLOGIC SUPPORT SPECIALIST 500 mg 200 mL/hr New Bag 05/09/2021 10:36 PM CRYPTOLOGIC SUPPORT SPECIALIST 500 mg 200 mL/hr NaCl 0.9 % bolus 1,000 mL New Bag 05/10/2021 3:25 AM CRYPTOLOGIC SUPPORT SPECIALIST 1,000 mL 1000 mL/hr 1,000 mL, intravenous, at 1,000 mL/hr, Administer over 1 Hours, Once, On Sun05/10/21 at 0300, For 1 dose nalbuphine injection 2.5 mg (NUBAIN) Given 05/10/2021 1:08 PM CRYPTOLOGIC SUPPORT SPECIALIST 2.5 mg 2.5 mg, intravenous, Every 4 hours PRN, itching, Starting on Sun05/09/21 at 1840, For 4 doses, PACU & Post-Op Given 05/09/2021 9:31 PM CRYPTOLOGIC SUPPORT SPECIALIST 2.5 mg ondansetron (PF) injection 4 mg (ZOFRAN) Given 05/11/2021 7:29 PM CRYPTOLOGIC SUPPORT SPECIALIST 4 mg 4 mg, intravenous, Every 6 hours PRN, nausea, vomiting, Starting on Sun05/09/21 at 1840, Reassess for nausea or vomiting after at least 10 minutes. If nausea or vomiting persists administer next ordered antiemetic medications (order for antiemetic medication administration ondansetron then droperidol then promethazine). Given 05/10/2021 3:41 PM CRYPTOLOGIC SUPPORT SPECIALIST 4 mg oxybutynin tablet 5 mg (DITROPAN) 5 mg, oral, Every 8 hours PRN, bladder spasms, Startin g on Sun05/09/21 at 2025 oxyCODONE IR tablet 10 mg (ROXICODONE) Given 05/10/2021 7:59 AM CRYPTOLOGIC SUPPORT SPECIALIST 10 mg 10 mg, oral, Every 4 hours PRN, severe pain or score 7-10 of 10, Starting on Sun05/09/21 at 0836, For 24 hours, PACU & Post-Op, To be administered in the first 24 hours after intrathecal dose given. Given 05/09/2021 7:02 PM CRYPTOLOGIC SUPPORT SPECIALIST 10 mg oxyCODONE IR tablet 5 mg (ROXICODONE) Given 05/10/2021 1:26 AM CRYPTOLOGIC SUPPORT SPECIALIST 5 mg 5 mg, oral, Every 4 hours PRN, moderate pain or score 4-6 of 10, Starting on Sun05/09/21 at 0836, For 24 hours, PACU & Post-Op, To be administered in the first 24 hours after intrathecal dose given. promethazine injection 6.25 mg (PHENERGA N) Given 05/11/2021 10:11 PM CRYPTOLOGIC SUPPORT SPECIALIST 6.25 mg 6.25 mg, intravenous, Every [...] Left Ear over 3 days 1 patch CRYPTOLOGIC SUPPORT SPECIALIST (TRANSDERM SCOP) 1 patch, transdermal, Administer over 72 Hours, Once as needed, nausea and vomiting, Starting on Sun05/09/21 at 0802, For 1 dose, Pre-Op, Contains 1.5 mg to deliver 1 mg/72 hours. sennosides tablet 17.2 mg (SENOKOT) Given 05/13/2021 10:30 PM CRYPTOLOGIC SUPPORT SPECIALIST 17.2 mg 17.2 mg, oral, Daily, First dose on Sun05/13/21 at 2115 simethicone chewable tablet 80 mg (MYLIC ON) Given 05/13/2021 9:55 AM CRYPTOLOGIC SUPPORT SPECIALIST 80 mg 80 mg, oral, 4 times daily PRN, flatulence, Starting on Sun05/09/21 at 2025 Given 05/13/2021 3:38 AM CRYPTOLOGIC SUPPORT SPECIALIST 80 mg Given 05/11/2021 3:35 PM CRYPTOLOGIC SUPPORT SPECIALIST 80 mg sodium phosphates enema 1 enema (FLEET) Given 05/09/2021 7:00 AM CRYPTOLOGIC SUPPORT SPECIALIST 1 enema 1 enema, rectal, Once, On Sun05/09/21 at 0645, For 1 dose, Pre-Op, Give Fleets if not done at home the morning of surgery documented in this encounter Active and Recently Administered Medications Times are shown in CRYPTOLOGIC SUPPORT SPECIALIST. Scheduled Medication Order 05/12/2021 05/13/2021 05/14/2021 acetaminophen tablet 1,000 mg (TYLENOL) 0657 (Given - Provider: Jessie Rebolledo RChapincitoN.)1222 (Given - Provider: Angela Paniagua RChapincitoN.)1803 (Given - Provider: Celeste Goldberg R.N.)2304 (Given - Provider: Celeste Goldberg R.N.) 0606 (Given - Provider: Jessie Rebolledo R.N.)1126 (Given - Provider: Jaimee Morales R.N.)1750 (Given - Provider: eCleste Goldberg R.N.)2353 (Given - Provider: Jessie Rebolledo [...] 0031 (Given - P rovider: Jessie Rebolledo RChapincitoN.)0702 (Given - Provider: Maximo Lucia.N.)1222 (Given - Provider: Angela Paniagua R.N.)1803 (Given - Provider: Celeste Goldbegr R.N.) 0338 (Given - Provider: Adonay LuciaN.)0955 (Given - Provider: Jaimee Morales R.N.)1750 (Given - Provider: Celeste Goldberg R.N.)2354 (Given - Provider: Adonay LuciaN.) 0619 (Given - Provider: Jessie Rebolledo R.N.) 600 mg, oral, Every 6 hours, First dose on Sun05/10/21 at 1900, start 6 hours after last ketorolac dose administered lisdexamfetamine capsule 70 mg (VYVANSE) 0656 (Given - Provider: Jessie Rebolledo R.N.) 0606 (Given - Provider: Jessie Rebolledo R.N.) 0619 ( Given - Provider: Jessie Rebolledo RChapincitoNChapincito) 70 mg, oral, Daily, First dose on Sun at 0700, See tube feeding guidelines for tube feeding administration instructions. magnesium hydroxide suspension 30 mL (MILK OF MAGNESIA ) 0957 (Not Given - Provider: Angela Paniagua R.N. - Reason: Order parameters not met - Comment: having loose stools and gas)1907 (Given - Provider: Celeste Goldberg R.N.) 0955 (Given - Provider: Jaimee Morales RDayan.)2026 (Given - Provider: Celeste Goldberg R.N.) 0853 (Not Given - Provider: Celeste maldonado RAustin - Reason: Order parameters not met) 30 [...] Rebolledo R.N.)1401 (Given - Provider: Jaimee Morales RChapincitoNChapincito)2025 (Given - Provider: Celeste Godlberg R.N.) 0211 (Given - Provider: Adonay LuciaNChapincito) 5 mg, oral, 3 times daily PRN, [...] Goldberg R.N.) 0338 (See Alternative - Provider: Adonay BridgesNChapincito)0731 (See Alternative - Provider: Jaimee Morales RChapincitoNChapincito)1128 (See Alternative - Provider: Jaimee Morales R.N.)1619 (See Alternative - P rovider: Celeste Goldberg R.N.) 0211 (See Alternative - Provider: Adonay BridgesNChapincito)0623 (Given - Provider: Adonay LuciaN.)1029 (Given - Provider: Cecille Miles R.N., C.M.S.R.N.) 2 mg, oral, Every 4 hours PRN, moderate pain or score 4-6 of 10, Starting on Sun05/10/21 at 1518 2304 (See Alternative - Provider: Celeste Goldberg R.N. ) 2026 (See Alternative - Provider: Celeste [...] pt request) 0211 (Given - Provider: Jessie Rebolldeo R.N.)0623 (See Alternative - Provider: Jessie Rebolledo [...] daily PRN, flatulence, Starting on 04/12 at 202 Linked Groups Order Group 1: HYDROmorphone tablet [...]
--- OUTSIDE RECORDS SUMMARY | 2022-03-28 16:30 | XMS_ITS | Encounter Summary ---
:1975 Author Organization 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] Procedures IN SALPINGO-OOPHORECTOMY BILAT HYST IN HEPATECTMY RESECT PARTL LOBECT IN US GUIDE INTRAOPERATIVE IN CYSTHRSCPY W INS URETERAL STNT LAPAROTOMY, TUMOR DEBULKING HYSTERECTOMY ABDOMINAL WITH BILATERAL SALPINGO-OOPHORECTOMY OMENTECTOMY POSSIBLE RESECTION SMALL INTESTINE WITH ANASTOMOSIS, PROCEED INDICATED WEDGE RESECTION LIVER INTRAOPERATIVE ULTRASOUND LIVER CYSTOSCOPY INSERTION STENT URETER Referral ID Status Reason Start Date Expiration Date Visits Requ ested Visits Authorized [id number] 1 1 Encounter Details Date Type Department Care Team Description 05/09/2021 Anesthesia Event RST RASHEL [facility]HAMM[facility] OR Harrison Aguilar M.D. [address] [place] [phone] [address] [facility] Abbey Kelly, TUBE SPLICER, DISPOSITION CLERK [address] [place] [phone] [place] [phone] Anesthesia Record Procedure Summary Procedure Name Responsible [...] h andoff to the [facility] staff [facility] 1. Identified the patient 2. Ident [...] 05/09/21 0000 by Abdomen; Medial; Midline Jem Brareto, RChapincitoN. abdominal incision from chest to pubis Puncture 02/16/21; 0840; No; 02/16/21 0840 by 05/09/21 17 27 by Abdomen; Mid; Omentum Juan Antonio Villa, R.N. Jem Barreto, Biopsy; 05/09/21; 1727; R.N. Healed Peripheral IV Placement Date: 05/09/21 08 by 05/14/21 09 b y 05/09/21; Placement Abbey Kelly, Celeste Harris Time: 804; Catheter MARK BALDWIN J, R.N. Size: 20 G; Orientation: Right; Location: Hand; Inserted by: Vik Kelly CRNA; Removal Date: 05/14/21; Removal Time: 926; Removal Reason: Per order Peripheral IV Placement Date: 05/09/21823 by 05/10/21345 b y 05/09/21; Placement Abbey Kelly, Jessie Harris, Time: 823; Catheter MARK BALDWIN R.N. Size: 16 G; Orientation: Right; Location: Forearm; Removal Date: 05/10/21; Removal Time: 345; Removal Reason: No longer in place ETT Placement Date: 05/09/21843 by 05/09/21 165 b y 05/09/21; Placement Abbey Kelly, Roldan Tatum, Time: 843 (created via MARK ABLDWIN APRN, NICOLAS BRADY procedure documentation); Mask Ventilation: Easy mask; Type: Standard ETT; Single Lumen Tube Size: 7 mm; Cuffed: Yes; Blade Size: Aguilar 2; Location: Oral; Grade View: Grade 2A; Insertion Attempts: 1; Placement Verification: Bilateral breath sounds, Positive ETCO2, Symmetrical chest wall movement; Removal Date: 05/09/21; Removal Time: 1658 Arterial Line Placement Date: 05/09/2145 by 05/09/21 1807 b y 05/09/21; Placemnt Time: Sharif Dominique M.D. K opka, Wyatt A, 844 (created via R.N. procedure documentation); Size: 20 G; Orientation: Right; Location: Radial; Site Prep: Chlorhexidine (Preferred); Technique: Ultrasound guidance; Insertion Attempts: 1; Securement: Securement dressing, Securement device; Removal Date: 05/09/21; Removal Time: 180; Removal Reason: Completion of therapy Peripheral IV Placement Date: 05/09/21 0846 by 05/09/21 1938 b y 05/09/21; Placement Abbey Kelly, Celeste Goldberg B, Time: 08; Catheter MARK BALDWIN RDayan. Size: 16 G; Orientation: Left; Location: Forearm; Removal Date: 05/09/21; Removal Time: 1937; Removal Reason: Per patient/family request NG/OG Tube 05/09/21; 0858; 05/09/21 0858 by 05/09/21 1650 b y Orogastric; 16 Fr; Oral; Abbey Kelly, Kaylen dean, Roldan W, 05/09/21; 1650 TUBE SPLICER, MARK TUBE SPLICER, DISPOSITION CLERK Ureteral Drain/Stent 05/09/21; 0938; Right; 05/09/21 0938 by 1652 by Other (Comment) Stephanie Grewal R.N. Berndt, Jose Marsh, (Ureter); 5 Fr.; Yes; R.N. Criteria for drain removal met Ureteral Drain/Stent 05/09/21; 0939; Left; 05/09/21 0939 by 04/12 03/01 1652 by Other (Comment) Stephanie Grewal R.N. Berndt, Sha nnon R, (ureter); 5 Fr.; Yes; R.N. Criteria for drain removal met Bladder Irrigation 05/09/21; 0939; 16 Fr; 5 05/09/21 0939 by 1726 by mL (10ml of water in Stephanie Grewal R.N. Kopka, Wyatt A, balloon); Yes; 05/09/21; R.N. 1726; Other (Comment) (Changing to briceño as not bladder irrigation) Indwelling Urinary Placement Date: 05/09/21 0939 by 05/10/21 051 0 by Catheter 05/09/21; Placement Jem Barreto, RChapincitoNJessie Vaca, Time: 938; Inserted by: R.N. OR staff; Removal Date: 05/10/21; Removal Time: 05; Removal Reason: Per order Closed/Suction Drain 05/09/21; 1611; 1; Left; 05/09/21 1611 by 1 07/13/20 1236 by LLQ; Bulb; 15 Fr.; Per Stephanie Grewal, Kaylah basurto, Angela Doe, order (drain appeared R.N. intact. pt tolerated [...] Procedure Summary Date: 05/09/21 Room / Location: [place] [address] ROJB 01 107 / [facility] in [place], [place] Anesthesia Start: 30 Anesthesia Stop: 170 Procedures: LAPAROTOMY, EXPLORATORY. (N/A [...] Post Op nausea/vomiting: none Hydration status: euvolemic TRONIC EQUIPMENT INSTALLER Anesthesia Procedure Notes - Abbey Kelly APRN, [...] successful Airway event: no complications ATTESTATION STATEMENT TRONIC EQUIPMENT INSTALLER Anesthesia Procedure Notes - Abbey Kelly APRN, [...] successful procedure Other complications: none ATTESTATION STATEMENT TRONIC EQUIPMENT INSTALLER Anesthesia Procedure Notes - Abbey Kelly APRN, [...] yes Complications - arterial: none ATTESTATION STATEMENT TRONIC EQUIPMENT INSTALLER Anesthesia Preprocedure Evaluation - Sharif Dominique M.D. - 05/09/2021 7:30 AM CST Preprocedure Anesthesia & H&P Assessment Procedure Summary Date/Time: 05/09/2115 Procedures: LAPAROTOMY, EXPLORATORY. (N/A ) TUMOR DEBULKING. [...] Of Ovary Laterality Unknown (HCC) [C56.9]. Location: [place] [address] / [facility] in [place], [place] Providers: Denisha Oviedo M.D.; Wilma Castro [...] with patient /legal guardian or through an emergency medicine specialist. Risks/Benefits/Alternatives of Blood transfusion discussed with patient / legal guardian, including an opportunity to ask questions and/or decline some or all transfusion therapies. The patient / legalguardian consented to the use of all blood products, as deemed medically necessary Approval to Proceed: approved for anesthesia TRONIC EQUIPMENT INSTALLER documented in this encounter Plan of Treatment Upcoming Encounters Date Type Specialty Care Team Description 04/11/2022 Clinical Communication Admitting/Central Scheduling 04/13/2022 Appointment Laboratory Medicine Debbie Ivey M.D. [address] [place] [phone] 04/13/2022 Office Visit Oncology Walter Barnhart M.D., Ph.D. [address] [place] [phone] documented as of this encounter Procedures Procedure Name Priority Date/Time Associated Comments Diagnosis IN INJ SPINE LUMB/SAC Routine 05/09/2021 8:48 AM Results for this WO IMG ELECTRONIC EQUIPMENT INSTALLER procedure are i n the results section. LDA ANE ARTERIAL LINE Routine 05/09/2021 8:45 AM Results for this INSERTION ELECTRONIC EQUIPMENT INSTALLER procedure are i n the results section. IN ARTL CATH/CNULA Routine 05/09/2021 8:45 AM Res ults for this MONITOR PERC ELECTRONIC EQUIPMENT INSTALLER procedure are i n the results section. LDA ANE ENDOTRACHEAL Routine 05/09/2021 8:44 AM R esults for this AIRWAY ELECTRONIC EQUIPMENT INSTALLER procedure are i n the results section. documented in this encounter Results IN INJ SPINE LUMB/SAC WO IMG (05/09/2021 8:48 AM ELECTRONIC EQUIPMENT INSTALLER) Narrative Abbey Kelly APRN, CRNA - 05/09 8:48 AM ELECTRONIC EQUIPMENT INSTALLER Abbey Kelly APRN, CRNA ? 05/09/2021 ??9:14 [...] Sharif Dominique M.D. PROCEDURE/MINOR SURGICAL ORD ERABLES IN ARTL CATH/CNULA MONITOR PERC, LDA ANE ARTERIAL LINE INSERTION (05/09/2021 8:45 AM ELECTRONIC EQUIPMENT INSTALLER) Abbey Garcia APRN, DISPOSITION CLERK - 05/09 8:45 AM ELECTRONIC EQUIPMENT INSTALLER Abbey Kelly APRN, DISPOSITION CLERK ? 05/09/2021 ??9:13 AM Invasive Catheter [...] LDA ANE ENDOTRACHEAL AIRWAY (05/09/2021 8:44 AM ELECTRONIC EQUIPMENT INSTALLER) Narrative Abbey Kelly APRN, CRNA - 05/09 8:44 AM ELECTRONIC EQUIPMENT INSTALLER Abbey Kelly APRN, CRNA ? 05/09/2021 ??9:21 [...] 5 % injection Given 05/09/2021 2:30 PM ELECTRONIC EQUIPMENT INSTALLER 250 mL intravenous, As needed, Starting on Sun05/09/21 at 0910, Anesthesia Intra-op Given 05/09/2021 2:11 PM ELECTRONIC EQUIPMENT INSTALLER 250 mL Given 05/09/2021 10:31 AM ELECTRONIC EQUIPMENT INSTALLER 250 mL calcium gluconate injection Given 05/09/2021 1:13 PM ELECTRONIC EQUIPMENT INSTALLER 1 g intravenous, As needed, Starting on Sun05/09/21 at 1313, Anesthesia Intra-op ceFAZolin injection 2,000 mg (ANCEF) Given 05/09/2021 3:07 PM ELECTRONIC EQUIPMENT INSTALLER 2 g 2,000 mg (rounded from 1,552.5 [...] Indications: Prophylaxis, surgical Given 05/09/2021 12:17 PM ELECTRONIC EQUIPMENT INSTALLER 2 g Given 05/09/2021 9:18 AM ELECTRONIC EQUIPMENT INSTALLER 2 g dexAMETHasone injection (DECADRON) Given 05/09/2021 9:04 AM ELECTRONIC EQUIPMENT INSTALLER 8 mg intravenous, As needed, Starting on Sun05/09/21 at 0904, Anesthesia Intra-op ePHEDrine (PF) injection Given 05/09/2021 4:29 PM ELECTRONIC EQUIPMENT INSTALLER 5 mg intravenous, As needed, Starting on Sun05/09/21 at 0946, Anesthesia Intra-op Given 05/09/2021 4:20 PM ELECTRONIC EQUIPMENT INSTALLER 5 mg Given 05/09/2021 2:01 PM ELECTRONIC EQUIPMENT INSTALLER 5 mg fentaNYL injection (SUBLIMAZE) Given 05/09/2021 1:41 PM ELECTRONIC EQUIPMENT INSTALLER 50 mcg intravenous, As needed, Starting on Sun05/09/21 at 0839, Anesthesia Intra-op Given 05/09/2021 10:10 AM ELECTRONIC EQUIPMENT INSTALLER 50 mcg Given 05/09/2021 10:00 AM ELECTRONIC EQUIPMENT INSTALLER 50 mcg glycopyrrolate injection (ROBINUL) Given 05/09/2021 9:48 AM ELECTRONIC EQUIPMENT INSTALLER 0.2 mg intravenous, As needed, Starting on Sun05/09/21 at 0948, Anesthesia Intra-op haloperidol lactate injection (HALDOL) Given 05/09/2021 1:01 PM ELECTRONIC EQUIPMENT INSTALLER 1 mg intravenous, As needed, Starting on Sun05/09/21 at 1301, Anesthesia Intra-op heparin (porcine) injection 5,000 Units Given 05/09/2021 9:05 AM ELECTRONIC EQUIPMENT INSTALLER 5,000 Units 5,000 Units, subcutaneous, Once, On Sun05/09/21 at 0730, For 1 dose, Intra-Op, Administer prior to induction of anesthesia. HYDROmorphone dilution injection (DILAUD ID) Given 05/09/2021 8:36 AM ELECTRONIC EQUIPMENT INSTALLER 100 mcg intrathecal, As needed, Starting on Sun05/09/21 at 0836, Anesthesia Intra-op indocyanine green injection (IC-GREEN) Given 05/09/2021 3:45 PM ELECTRONIC EQUIPMENT INSTALLER 2.5 mg intravenous, As needed, Starting on Sun05/09/21 at 1501, Anesthesia Intra-op Given 05/09/2021 3:01 PM ELECTRONIC EQUIPMENT INSTALLER 2.5 mg lactated ringers New Bag 05/09/2021 2:08 PM ELECTRONIC EQUIPMENT INSTALLER intravenous, Continuous Infusion: Per Instructions PRN, Starting on Sun05/09/21 at 0830, Anesthesia Intra-op New Bag 05/09/2021 8:30 AM ELECTRONIC EQUIPMENT INSTALLER lactated ringers New Bag 05/09/2021 3:41 PM ELECTRONIC EQUIPMENT INSTALLER intravenous, Continuous Infusion: Per Instructions PRN, Starting on Sun05/09/21 at 0847, Anesthesia Intra-op New Bag 05/09/2021 1:21 PM ELECTRONIC EQUIPMENT INSTALLER New Bag 05/09/2021 10:45 AM ELECTRONIC EQUIPMENT INSTALLER lidocaine (PF) (cardiac) injection Given 05/09/2021 8:39 AM ELECTRONIC EQUIPMENT INSTALLER 100 mg intravenous, As needed, Starting on Sun05/09/21 at 0839, Anesthesia Intra-op metroNIDAZOLE in NaCl (iso-osm) IVPB 500 mg Given 05/09/2021 2:56 PM ELECTRONIC EQUIPMENT INSTALLER 500 mg (FLAGYL) 500 mg, intravenous, at 200 mL/hr, Administer over 30 Minutes, Once, On Sun05/09/21 at 0730, For 1 dose, Intra-Op, Preoperatively within 1 hour prior to surgical incision, Indications: Prophylaxis, surgical Given 05/09/2021 9:07 AM ELECTRONIC EQUIPMENT INSTALLER 500 mg midazolam (PF) injection (VERSED) Given 05/09/2021 8:32 AM ELECTRONIC EQUIPMENT INSTALLER 2 mg intravenous, As needed, Starting on Sun05/09/21 at 0832, Anesthesia Intra-op ondansetron (PF) injection (ZOFRAN) Given 05/09/2021 4:16 PM ELECTRONIC EQUIPMENT INSTALLER 4 mg intravenous, As needed, Starting on Sun05/09/21 at 1616, Anesthesia Intra-op phenylephrine injection Given 05/09/2021 4:20 PM ELECTRONIC EQUIPMENT INSTALLER 100 mcg intravenous, As needed, Starting on Sun05/09/21 at 0947, Anesthesia Intra-op Given 05/09/2021 4:10 PM ELECTRONIC EQUIPMENT INSTALLER 50 mcg Given 05/09/2021 4:07 PM ELECTRONIC EQUIPMENT INSTALLER 50 mcg propofol 10 mg/mL infusion Rate/Dose 05/09/2021 3:44 75 mcg/kg/min 2 6.82 (DIPRIVAN) Change PM ELECTRONIC EQUIPMENT INSTALLER mL/hr intravenous, Continuous Infusion: Per Instructions PRN, Starting on Sun05/09/21 at 0840, Anesthesia Intra-op Rate/Dose Change 05/09/2021 9:38 AM ELECTRONIC EQUIPMENT INSTALLER 85 mcg/kg/min 30.396 mL/hr New Bag 05/09/2021 8:40 AM ELECTRONIC EQUIPMENT INSTALLER 100 mcg/kg/min 35.76 mL/hr propofoL injection (DIPRIVAN) Given 05/09/2021 8:39 AM ELECTRONIC EQUIPMENT INSTALLER 150 mg intravenous, As needed, Starting on Sun05/09/21 at 0839, Anesthesia Intra-op rocuronium injection (ZEMURON) Given 05/09/2021 3:36 PM ELECTRONIC EQUIPMENT INSTALLER 20 mg intravenous, As needed, Starting on Sun05/09/21 at 0839, Anesthesia Intra-op Given 05/09/2021 3:03 PM ELECTRONIC EQUIPMENT INSTALLER 20 mg Given 05/09/2021 2:15 PM ELECTRONIC EQUIPMENT INSTALLER 20 mg sugammadex injection (BRIDION) Given 05/09/2021 4:41 PM ELECTRONIC EQUIPMENT INSTALLER 150 mg intravenous, As needed, Starting on Sun05/09/21 at 1641, Anesthesia Intra-op tranexamic acid in NaCl IVPB 1,000 mg Given 05/09/2021 9:[address] 1 g (CYKLOKAPRON) 1,000 mg (1 g), intravenous, at 300 mL/hr, Administer over 20 Minutes, Once, On Sun05/09/21 at 0730, For 1 dose, Intra-Op documented in this encounter
--- OUTSIDE RECORDS SUMMARY | 2022-03-28 16:30 | XMS_ITS | Encounter Summary ---
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 [address] [place] [address] Referral ID Status Reason Start Date Expiration Date Visits Requ ested Visits Authorized [id number] Closed 05/03/2021 05/03/2022 1 1 Scheduling Instructions 05/03/21 Dr. Castro agreed to see guadalupe simmons on [place] [address] Immediately after consult with Dr. Oviedo. Schedule as Biliary/Liver Ca ncer/Stricture ER HELPER SORTING YARD Reason for Visit Outpatient (Routine) - Closed Specialty Diagnoses / Procedures Referred By Contact Refer red To Contact Obstetrics and Diagnoses Personal History Of Malignant Neoplasm Of Ovary Denisha Oviedo [facility] M.D. 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 ER HELPER SORTING YARD documented in this encounter Miscellaneous Notes Addendum Note - Phi Recio RAustin - 05/03/2021 10:45 AM LOADER HELPER SORTING YARD Addended by: PHI RECIO on: 05/04/2021 08:48 AM Modules accepted: Orders ER HELPER SORTING YARD documented in this encounter Plan of Treatment Upcoming Encounters Date Type Specialty Care Team Description 04/11/2022 Clinical Communication Admitting/Central Scheduling 04/13/2022 Appointment Laboratory Medicine Debbie Ivey M.D. [address] [place] [address] 04/13/2022 Office Visit Oncology Walter Barnhart M.D., Ph.D. [address] [place] [address] Scheduled Referrals Name Type Priority Associated Diagnoses Order S [facility] General Surgery - Outpatient Referral Routine Malignant Neopla sm Expected: Biliary / liver Of Ovary Laterality 05/03, consult (clinic) Unknown (HCC) Expires: Lesion Liver 08/03/2022 documented as of this encounter Results SARS CoV-2 RNA, PCR, Varies Asymptomatic (05/08/2021 7:08 AM LOADER HELPER SORTING YARD) [facility] Method Time Signature SARS CoV-2 Swab, 05/08/2021 DTL RNA, PCR, Nasopharynx 1:23 PM LOADER HELPER SORTING YARD Source SARS CoV-2 Undetected Undetected 05/08/2021 DTL RNA, PCR 1:23 PM LOADER HELPER SORTING YARD Comment: SARS-CoV-2 RNA absent. This result does [...] Drug Administration an d is used per bung dropper's instructions. Performance characteristics were verified by [facility] [place] in a manner consistent with CLIA requirements. Visit the CDC website: https://www.cdc.g ov/coronavirus/ for the most recent guidelines on Coron avirus testing. Fact Sheet for Healthcare Providers: https://www.fda.gov/media/211385/downloa d Fact Sheet for Patients: https://www.fda.gov/media/346182/downloa d Specimen Anatomical Collection Method Collection Time Receive d Time (Source) Location / / Volume Laterality Varies 05/08/2021 7:08 AM 8:49 (Nasopharynx) LOADER HELPER SORTING YARD AM LOADER HELPER SORTING YARD Denisha Oviedo M.D. LAB MICROBIOLOGY - GENERAL O RDERABLES Performing Organization Address City/State/ZIP Code Phon e Number [facility] - [address] [place], [place] [address] [facility] [place] [address] [facility] [address] documented in this encounter Visit Diagnoses Diagnosis Malignant Neoplasm Of Ovary Laterality U nknown (HCC) - Primary Personal History Of Malignant Neoplasm O f Ovary Lesion Liver Preprocedural Lab Exam documented in this encounter
--- OUTSIDE RECORDS SUMMARY | 2022-03-28 16:31 | XMS_ITS | Encounter Summary ---
:1975 Author Organization [facility] Address [address] [place] [address] Care Team Providers Name Role Phone Unavailable Primary Care Provider Unavailable Reason for Visit Reason Dottie Hwang Encounter Details Date Type Department Care Team Description 03/15/2021 Clinical Communication Department of Mamie Rees Oncology in D, CarolS.N., R.N. [place], [place] [address] [facility] [address] [place] [phone] Social History Tobacco Use Types Packs/Day Years [...] Laboratory Medicine Debbie Ivey M.D. [address] [place] [phone] 04/13/2022 Office Visit Oncology Walter Barnhart M.D., Ph.D. [address] [place] [phone] documented as of this encounter Visit Diagnoses Not on filedocumented in this encounter
--- OUTSIDE RECORDS SUMMARY | 2022-03-28 16:31 | XMS_ITS | Encounter Summary ---
:1975 Author Organization [facility] Address [address] [place] [address] Care Team Providers Name Role Phone Unavailable Primary Care Provider Unavailable Encounter Details Date Type Department Care Team Description 03/17/2021 Orders Only Department of Oncology ShakaerLaura, Malignant Neoplasm Of in [place], R.N. Ovary Laterality [place] [address] [facility] Unknown (HCC) (Primary [address] [place], [place] Dx) [place] [phone] Social History Tobacco Use Types Packs/Day Years [...] Laboratory Medicine Debbie Ivey M.D. [address] [place] [phone] 04/13/2022 Office Visit Oncology Walter Barnhart M.D., Ph.D. [address] [place] [phone] documented as of this encounter Visit Diagnoses Diagnosis Malignant Neoplasm Of Ovary Laterality U nknown (HCC) - Primary documented in this encounter
--- OUTSIDE RECORDS SUMMARY | 2022-03-28 16:31 | XMS_ITS | Encounter Summary ---
:1975 Author Organization [facility] Address [address] [place] [address] Care Team Providers Name Role Phone Unavailable Primary Care Provider Unavailable Reason for Visit Reason Comments Intake Assessment Encounter Details Date Type Department Care Team Description 04/05/2021 Clinical Communication Department of Walter Barnhart In take Assessment Oncology in [place]., Ph.D. [place], [facility] [address] [place], [place] [address] [facility] [phone] [place], [place] [phone] (Work) [phone] Social History Tobacco Use Types Packs/Day Years [...] this encounter Miscellaneous Notes Telephone Encounter - rAlet Harper - 04/05/2021 12:48 PM CDT Intake done documented in this encounter Plan of Treatment Upcoming Encounters Date Type Specialty Care Team Description 04/11/2022 Clinical Communication Admitting/Central Scheduling 04/13/2022 Appointment Laboratory Medicine Debbie Ivey M.D. [address] [place] [phone] 04/13/2022 Office Visit Oncology Walter Barnhart M.D., Ph.D. [address] [place] [phone] documented as of this encounter Visit Diagnoses Not on filedocumented in this encounter
--- OUTSIDE RECORDS SUMMARY | 2022-03-28 16:31 | XMS_ITS | Encounter Summary ---
:1975 Author Organization [facility] Address [address] [place] [address] Care Team Providers Name Role Phone Elsewhere, Pcp Primary Care Provider Unavailable Reason for Visit Reason Comments Myriad Reclassification Encounter Details Date Type Department Care Team Description 03/03/2021 Clinical Department of Claudette Bansal Reclass ification Communication Medical Genetics Kierra Marsh, [facility] in [place] [address] [address] [facility] [address] [phone] Social History Tobacco Use Types Packs/Day Years [...] 1 to 4 times per year 02/09 oriental orthodox services? Do you belong to any [...] were not included. Reclassification report released by [facility] for the testing originally completed 03/11/21 APC [id number]: Uncertain to benign Forward results to Claudette. Telephone Encounter - Barry More - 03/16/2021 7:58 AM CDT Results received in dept pool. Forwarded to the provider for review. Telephone Encounter - Barry More - 03/15/2021 9:40 AM CDT Sent results to [facility] Telephone Encounter - Montse Zaldivar - 03/11/2021 4:26 PM CDT Testing has been completed in the [employer] portal, pending results being scanned into Epic to be sentto Clinical team for review. VUS, forward to Claudette Telephone Encounter - Barry More - 03/03/2021 9:39 AM CDT Date: 03/03/21 Lab: [facility] - SEND TO ONCOLOGY Test: BRACAnalysis with myRisk- Sample: Lab to mail a saliva kit to the pt and Mail Order has been scheduled and checked in. Provider: Claudette Corona CGC Insurance: Commercial documented in this encounter Plan of Treatment Upcoming Encounters Date Type Specialty Care Team Description 04/11/2022 Clinical Communication Admitting/Central Scheduling 04/13/2022 Appointment Laboratory Medicine Debbie Ivey M.D. [address] [place] [phone] 04/13/2022 Office Visit Oncology Walter Barnhart M.D., Ph.D. [address] [place] [phone] documented as of this encounter Visit Diagnoses Not on filedocumented in this encounter Additional Health Concerns Infection Onset Date Last Indicated Resolved Time COVID19 Pending 04/25/2021 04/25/2021 04/25/2021 4:15 AM THERMAL CUTTING MACHINE OPERATOR COVID19 Pending 05/08/2021 05/08/2021 05/08/2021 1:24 PM THERMAL CUTTING MACHINE OPERATOR documented as of this encounter Care Teams Manager Infusion Relationship Specialty Start Date End Date Elsewhere, Pcp PCP - General Internal Medicine 07/08/21 documented as of this encounter
--- OUTSIDE RECORDS SUMMARY | 2022-03-28 16:31 | XMS_ITS | Encounter Summary ---
:1975 Author Organization [facility] Address [address] [place] [address] Care Team Providers Name Role Phone Unavailable Primary Care Provider Unavailable Reason for Visit Reason Comments Intake Assessment Encounter Details Date Type Department Care Team Description 03/11/2021 Clinical Communication Department of Candie Monahan Assessment Oncology in [facility] [address] [facility] [address] [place] [phone] [phone] Social History Tobacco Use Types Packs/Day Years [...] Laboratory Medicine Debbie Ivey M.D. [address] [place] [phone] 04/13/2022 Office Visit Oncology Walter Barnhart M.D., Ph.D. [address] [place] [phone] documented as of this encounter Visit Diagnoses Not on filedocumented in this encounter
--- OUTSIDE RECORDS SUMMARY | 2022-03-28 16:31 | XMS_ITS | Encounter Summary ---
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 [address] [place] [phone] Referral ID Status Reason Start Date Expiration Date Visits Requ ested Visits Authorized [id number] Closed 04/18/2021 05/18/2021 1 1 Encounter Details Date Type Department Care Team Description 02/23/2021 Orders Only Department of Oncology Walter Barnhart, Malignant Neoplasm Of in [place], Ph.D. Ovary Laterality [place] [address] [place] [address] Unknown (HCC) (Primary [address] [place], [place] Dx) [place] [phone] [phone] Social History Tobacco Use Types Packs/Day Years [...] or relatives? How often do you attend taoism or 1 to 4 times per year 02/09 pentecostalism services? Do you belong to any clubs or Yes 02/26/2021 organizations such as taoism groups, unions, fraternal or athletic groups, or [...] a [place] [facility] (including now)? Sex Assigned at Date Recorded Female 02/10/2021 8:20 AM CDT documented as of this encounter Plan of Treatment Upcoming Encounters Date Type Specialty Care Team Description 04/11/2022 Clinical Communication Admitting/Central Scheduling 04/13/2022 Appointment Laboratory Medicine Debbie Ivey M.D. [address] [place] [address] 04/13/2022 Office Visit Oncology Walter Barnhart M.D., Ph.D. [address] [place] [phone] documented as of this encounter Results CT Chest with IV Contrast (05/02/2021 10:52 AM GARMENT PARTS CUTTER HAND) Anatomical Region Laterality Modality Chest, Thoracic RST LOS, Thoracic ARZ LOS, Thoracic N/A Computed Tomography ARZ LOS, Thoracic FLA LOS Specimen (Source) Anatomical Collection Method Collection Time Re ceived Time Location / / Volume Laterality 05/02/2021 11:10 AM GARMENT PARTS CUTTER HAND Impressions 05/02/2021 11:15 AM GARMENT PARTS CUTTER HAND No acute disease. Stable tiny pulmonary nodules. Narrative 05/02/2021 11:15 AM GARMENT PARTS CUTTER HAND EXAM: CT CHEST WITH IV CONTRAST 3D/MIPS: [...]
--- OUTSIDE RECORDS SUMMARY | 2022-03-28 16:31 | XMS_ITS | Encounter Summary ---
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 rojelio DIRECTOR ORACLE RETAIL, C.N.P., Neutropenia Drug Induced (HC C) [address] [facility] M.S.N. [place], [place] [address] [place] [address] [place], [place] [phone] (Wo rk) Social History Tobacco Use Types [...] Appointment Laboratory Medicine Debbie Ivey M.D. [address] [place] [phone] 04/13/2022 Office Visit Oncology Walter Barnhart M.D., Ph.D. [address] [place] [phone] documented as of this encounter Visit Diagnoses [...] diphenhydrAMINE 50 mg in NaCl 0.9% New 04/14/2021 9:01 AM CDT 50 mg 204 [...] mL/hr, Administer over 30 Minutes, Once, On Misyt 04/14/21 at 0745, For 1 dose, Incompatible with solutions containing divalent cations (calcium, magnesium) including lactated Ringer's solution. ondansetron in NaCl 0.9% IVPB 16 mg New 04/14/2021 8:00 AM CDT 16 mg 232 mL/hr (ZOFRAN) 16 mg, intravenous, at 232 mL/hr, Administer over 15 Minutes, Once, On Misty 04/14/21 at 0745, For 1 dose PACLitaxeL 294 [...]
--- OUTSIDE RECORDS SUMMARY | 2022-03-28 16:31 | XMS_ITS | Encounter Summary ---
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 [address] [place] [address] [place] [phone] Referral ID Status Reason Start Date Expiration Date Visits V isits Requested Authorized [id number] Authorized 02/17/2021 02/17/2022 12 12 Encounter Details Date Type Department Care Team Description 04/13/2021 Hospital Encounter Department of Walter Barnhart Malign ant Neoplasm Of Ovary Laterality Unknown (HCC); Laboratory Medicine Kelly De La Cruz, Ph. D. Neutropenia Drug Induced (HCC) in [address] [place] [phone] [place], [place] [phone] (Work) [phone] Social History Tobacco Use Types Packs/Day Years [...] Appointment Laboratory Medicine Debbie Ivey M.D. [address] [place] [phone] 04/13/2022 Office Visit Oncology Walter Barnhart M.D., Ph.D. [address] [place] [phone] documented as of this encounter Procedures Procedure [...] CDT eGFR-Black/Afric >90 >=60 04/13/2021 NPRG an Bolivian mL/min/BSA 9:39 AM CDT Comment: ----ADDITIONAL INFORMATION---- [...] Number [facility]- [address] [place], [place] [address] [place] [address] [place] [address] [facility] [address] CBC, Chemotherapy, No [...] Ph.D. LAB BLOOD ADD-ON Performing Organization Address [facility] Phon e Number [address] LAB NPRG [address] Bilirubin, Total (04/13/2021 9:15 AM CDT) P athologist Signature Bilirubin, 0.6 <=1.2 mg/dL 04/13/2021 NPRG Total, P 9:39 AM CDT Specimen Anatomical Collection Method Collection Time Receive d Time (Source) Location / / Volume Laterality Blood (Blood, 04/13/2021 9:15 AM 04/13/20 9:17 Venous) CDT AM CDT Walter Barnhart M.D., Ph.D. LAB BLOOD ADD-ON Performing Organization Address City/[facility] Phon e Number [address] LAB NPRG [address] AST (Aspartate Aminotransferase) (04/13/2021 9:15 AM [...] Number [facility]- [address] [place], [place] [address] [facility] NPRG [facility] [place] [address] (ABNORMAL) Cancer [...] supplements. ??If the result does not ma [facility] clinical observations, repeat testing after patient [...] [facility]- [address] [place] [address] [facility] [place] [address] [facility] [address] documented in this encounter Visit Diagnoses Diagnosis 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
--- OUTSIDE RECORDS SUMMARY | 2022-03-28 16:31 | XMS_ITS | Encounter Summary ---
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 [address] [facility] [address] [place] [phone] Referral ID Status Reason Start Date Expiration Date Visits V isits Requested Authorized [id number] Authorized 02/17/2021 02/17/2022 12 12 Encounter Details Date Type Department Care Team Description 03/14/2021 Hospital Encounter Department of Walter Barnhart Malign ant Neoplasm Laboratory Medicine SKelly, Ph. D. Of Ovary Laterality in [address] Unknown (HCC) [place], [place] [address] [place] [phone] [place], [place] [phone] (Work) [phone] Social History Tobacco Use Types Packs/Day Years [...] Laboratory Medicine Debbie Ivey M.D. [address] [place] [phone] 04/13/2022 Office Visit Oncology Walter Barnhart M.D., Ph.D. [address] [place] [address], [place] [address] documented as of this encounter Procedures Procedure [...] with Estimated GFR (03/14/2021 9:47 AM CDT) P athologist Signature Creatinine 0.67 0.59 - 03/14/2021 NPRG 1.04 mg/dL 10:10 AM CDT eGFR-Black/Afric >90 >=60 03/14/2021 NPRG an Mosotho mL/min/BSA 10:10 AM CDT Comment: ----ADDITIONAL INFORMATION---- [...] Ph.D. LAB BLOOD ADD-ON Performing Organization Address City/[facility]/ZIP Code Phon e Number [address] [address] [facility] [place] [place] [address] CBC, Chemotherapy, No Alerts (03/14/2021 9:47 [...] Ph.D. LAB BLOOD ADD-ON Performing Organization Address [facility]/ZIP Code Phon e Number [address] [address] [facility] NPRG [place] [id number] [address] Bilirubin, Total (03/14/2021 9:47 AM CDT) P athologist Signature Bilirubin, 0.5 <=1.2 mg/dL 03/14/2021 NPRG Total, P 10:10 AM CDT Specimen Anatomical Collection Method Collection Time Receive d Time (Source) Location / / Volume Laterality Blood (Blood, 03/14/2021 9:47 AM 03/14/20 9:51 Venous) CDT AM CDT Walter Barnhart M.D., Ph.D. LAB BLOOD ADD-ON Performing Organization Address City/[facility]/ZIP Code Phon e Number [address] [place] [address] [place] [address] AST (Aspartate Aminotransferase) (03/14/2021 9:47 AM [...] Organization Address City/State/ZIP Code Phon e Number [facility]- [address] [place] [address] 1 [place] [address] (ABNORMAL) Cancer Antigen 125 (CA 125) [...] supplements. ??If the result does not ma [facility] clinical observations, repeat testing after patient [...] Organization Address City/State/ZIP Code Phon e Number [facility]- [address] [place] [address] [facility] [place] [address] [facility] [address] documented in this encounter Visit Diagnoses Diagnosis Malignant Neoplasm Of Ovary Laterality U nknown (HCC) documented in this encounter
--- OUTSIDE RECORDS SUMMARY | 2022-03-28 16:31 | XMS_ITS | Encounter Summary ---
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 [address] [facility] [address] [place] [phone] Referral ID Status Reason Start Date Expiration Date Visits V isits Requested Authorized [id number] Authorized 02/17/2021 02/17/2022 12 12 Encounter Details Date Type Department Care Team Description 04/07/2021 Office Visit Department of Marychuy Kapoor Malignan t Neoplasm Of Ovary Laterality Unknown (HCC) (Primary Dx); Oncology in GRAPHICS SOFTWARE ENGINEER, C.N.P., Neutropenia Dr hannah Lorenzo (HCC) [place], [place] M.S.N. [address] [place] [address] [address] [place] [phone] Social History Tobacco Use Types Packs/Day Years [...] ovarian cancer Collaborating provider: Dr. Juan Cardona [phone] HISTORY OF PRESENT ILLNESS: Ms. Yang is a very pleasant 45 y.o. 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 02/03/2021 Other Ultrasound with bilateral complex solid [...] Chemotherapy CARBOplatin AUC 6 / PACLitaxel ( DIRECTOR INDEPENDENT ) Start Date: 02/25/2021 INTERVAL HISTORY: presents [...] 73 Temp Readings from Last 1 Encounters: 04/07/21 36 ??C (Tympanic) Rate your distress: 3 [...] Laboratory Medicine Debbie Ivey M.D. [address] [place] [phone] 04/13/2022 Office Visit Oncology Walter Barnhart M.D., Ph.D. [address] [place] [phone] documented as of this encounter Results Creatinine with Estimated GFR (04/13/2021 9:15 AM CDT) P athologist Signature Creatinine 0.69 0.59 - 04/13/2021 NPRG 1.04 mg/dL 9:39 AM CDT eGFR-Black/Afric >90 >=60 04/13/2021 NPRG an Norwegian mL/min/BSA 9:39 AM CDT Comment: ----ADDITIONAL INFORMATION---- [...] Organization Address City/State/ZIP Code Phon e Number [address] [address] [facility] [place] [phone] [address] CBC, Chemotherapy, No Alerts (04/13/2021 9:15 [...] Organization Address City/State/ZIP Code Phon e Number [address] [address] [facility] [place] [phone] [address] Bilirubin, Total (04/13/2021 9:15 AM CDT) athologist Signature Bilirubin, 0.6 <=1.2 mg/dL 04/13/2021 NPRG Total, P 9:39 AM CDT Specimen Anatomical Collection Method Collection Time Receive d Time (Source) Location / / Volume Laterality Blood (Blood, 04/13/2021 9:15 AM 04/13/20 9:17 Venous) CDT AM CDT Walter Barnhart M.D., Ph.D. LAB BLOOD ADD-ON Performing Organization Address City/State/ZIP Code Phon e Number [address] [address] [facility] [place] [phone] [address] AST (Aspartate Aminotransferase) (04/13/2021 9:15 AM CDT) Patholo gist Method Time Signature Aspartate 40 8 - 43 04/13/2021 NPRG Aminotransferase U/L 9:39 AM CDT (AST), P Specimen Anatomical Collection Method Collection Time Receive d Time (Source) Location / / Volume Laterality Blood (Blood, 04/13/2021 9:15 AM 04/13/20 9:17 Venous) CDT AM CDT Walter Barnhart M.D., Ph.D. LAB BLOOD ADD-ON Performing Organization Address City/[facility] Phon e Number [place] [address] [address] [place], [place] [address] [place] [facility] NPR[place] [address] (ABNORMAL) Cancer Antigen 125 (CA 125) [...] supplements. ??If the result does not ma [facility] clinical observations, repeat testing after patient [...] Organization Address City/State/ZIP Code Phon e Number [facility] [address] [place] [address] [facility] [place] [address] [facility] [address] AST (Aspartate [...] M.S.N. LAB BLOOD ADD-ON Performing Organization Address City/State/[facility] Code Phon e Number [facility] - 200 [place], [place] [address] (ABNORMAL) CBC, Chemotherapy, No Alerts (04/07/2021 9:54 [...] Organization Address City/State/ZIP Code Phon e Number [facility] - 200 [place], [place] [address] [place] [address] [facility] [place] [address] documented in this encounter Visit Diagnoses Diagnosis Malignant Neoplasm Of Ovary Laterality U nknown (HCC) - Primary Neutropenia Drug Induced (HCC) documented in this encounter
--- OUTSIDE RECORDS SUMMARY | 2022-03-28 16:31 | XMS_ITS | Encounter Summary ---
:1975 Author Organization [facility] Address [address] [place] [address] Care Team Providers Name Role Phone Unavailable Primary Care Provider Unavailable Reason for Visit Reason Comments Nurse Visit Encounter Details Date Type Department Care Team Description 03/15/2021 Education Department of Oncology Mamie Rees Malignant Neoplasm Of in [place], D, M.S.N., R.N. Ovary Laterality [place] [address] [facility] Unknown (HCC) (Primary [address] [place], [place]x) [place] [address] [phone] Social History Tobacco Use Types Packs/Day Years [...] Laboratory Medicine Debbie Ivey M.D. [address] [place] [phone] 04/13/2022 Office Visit Oncology Walter Barnhart M.D., Ph.D. [address] [place] [phone] documented as of this encounter Visit Diagnoses Diagnosis Malignant Neoplasm Of Ovary Laterality U nknown (HCC) - Primary documented in this encounter
--- OUTSIDE RECORDS SUMMARY | 2022-03-28 16:31 | XMS_ITS | Encounter Summary ---
:1975 Author Organization [facility] Address [address] [place] [address] Care Team Providers Name Role Phone Unavailable [...] Ph.D. [address] [place] [phone] Referral ID Status Reason Start Date Expiration Date Visits V isits Requested Authorized [id number] Authorized 02/17/2021 02/17/2022 12 12 Encounter Details Date Type Department Care Team Description 02/25/2021 Infusion Department of Oncology Walter Barnhart, Malignant Neoplasm Of in [facility] rojelio Mendoza, Ph.D. Ovary Laterality [address] [facility] Unknown (HCC) (Primary [place], [place] Dx) [phone] (Wo rk) Social History Tobacco Use Types [...] Appointment Laboratory Medicine Debbie Ivey M.D. 200 [place] [phone] 04/13/2022 Office Visit Oncology Walter Barnhart M.D., Ph.D. [address] [place] [phone] documented as of this encounter Visit Diagnoses [...]
--- OUTSIDE RECORDS SUMMARY | 2022-03-28 16:31 | XMS_ITS | Encounter Summary ---
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 [address] [facility] [address] [place] [phone] Referral ID Status Reason Start Date Expiration Date Visits V isits Requested Authorized [id number] Authorized 02/17/2021 02/17/2022 12 12 Encounter Details Date Type Department Care Team Description 04/06/2021 Hospital Encounter Department of Walter Barnhart Malign ant Neoplasm Laboratory Medicine SKelly, Ph. D. Of Ovary Laterality in [address] Unknown (HCC) [place], [place] [address] [place] [phone] [place], [place] [phone] (Work) [phone] Social History Tobacco Use Types Packs/Day Years [...] or relatives? How often do you attend confucianism or 1 to 4 times per year 02/09 islam services? Do you belong to any clubs or Yes 02/26/2021 organizations such as confucianism groups, unions, fraternal or athletic groups, or [...] Laboratory Medicine Debbie Ivey M.D. [address] [place] [phone] 04/13/2022 Office Visit Oncology Walter Barnhart M.D., Ph.D. [address] [place] [phone] documented as of this encounter Procedures Procedure [...] CDT eGFR-Black/Afric >90 >=60 04/06/2021 NPRG an Hong [place]er mL/min/BSA 9:46 AM CDT Comment: ----ADDITIONAL INFORMATION---- [...] Organization Address City/State/ZIP Code Phon e Number [facility]- [address] [place], [place] [address] [facility] [place] [address] (ABNORMAL) CBC, [...] Ph.D. LAB BLOOD ADD-ON Performing Organization Address City/[facility] Phon e Number [place] [phone] [facility] [address] Bilirubin, Total (04/06/2021 9:14 AM CDT) P athologist Signature Bilirubin, 0.7 <=1.2 mg/dL 04/06/2021 NPRG Total, P 9:46 AM CDT Specimen Anatomical Collection Method Collection Time Receive d Time (Source) Location / / Volume Laterality Blood (Blood, 04/06/2021 9:14 AM 04/06/20 9:17 Venous) CDT AM CDT Walter Barnhart M.D., Ph.D. LAB BLOOD ADD-ON Performing Organization Address City/[facility] Phon e Number [place] [phone] [facility] [address] AST (Aspartate Aminotransferase) (04/06/2021 9:14 AM [...] Organization Address City/State/ZIP Code Phon e Number [facility]- [address] [place], [place] [address] [facility] [address] [facility] [address] (ABNORMAL) [...] Organization Address City/State/ZIP Code Phon e Number [facility]- [address] [place] [address] [facility] [place] [address] [facility] [address] documented in this encounter Visit Diagnoses Diagnosis Malignant Neoplasm Of Ovary Laterality U nknown (HCC) documented in this encounter
--- OUTSIDE RECORDS SUMMARY | 2022-03-28 16:31 | XMS_ITS | Encounter Summary ---
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 [address] [place] [phone] Referral ID Status Reason Start Date Expiration Date Visits Requ ested Visits Authorized [id number] Closed 02/23/2021 02/23/2022 1 1 Encounter Details Date Type Department Care Team Description 03/02/2021 [facility]medicine [facility] [address] [place] [phone] Cancer Bladder Family History (Primary D x); Genetics in [place], Barry More [address] [place] [phone] Malignant Neoplasm Of Ovary Laterality U nknown (HCC); [place] [facility] Pancreas Family Histo ry [address] [place] [phone] Social History Tobacco Use Types Packs/Day [...] of this encounter Consult Notes Guanako Guaman M.B.B.S., Ph.D. - 03/02/2021 3:00 PM CDT Images from the original note were not included. REFERRING PROVIDER Walter Barnhart M.D., * CHIEF COMPLAINT Ovarian cancer HISTORY OF PRESENT ILLNESS Agnelica Yang (Constance) is a 45 y.o. female [...] for viewing under the Media tab of [employer]. Our risk assessment is based upon medical and family history information as provided by the patient, and may change in the future should new information be obtained. Relevant History: Cosntance's father had bladder cancer at age 71. [...] reportedly a non-smoker. Constance's maternal ancestry is [place]; the patient???s paternal ancestry is [place]. There is no reported consanguinity or Ashkenazi Bahai ancestry. SUMMARY OF RELEVANT INVESTIGATIONS AND RISK [...] pursue the hereditary ovarian cancer panel through [employer]. Constance will be sent a saliva kit by the laboratory. The laboratory will complete insurance pre-verification for testing and will contact the patient with estimated vlu-nt-larsek cost information via email or text message. [...] recommendations, such as those made by the [place] [employer], do remain appropriate. These screening [...] recommendations, such as those made by the [place] [employer], do remain appropriate. It was a pleasure to meet Constance. She is certainly welcome to contact us with any additional questions. PATIENT EDUCATION: All of the above was discussed in detail with the patient who verbalized understanding. The patient's questions were answered. Total time: 50 minutes Electronically signed by Claudette Corona M.S., [facility] at 03/03/2021 8:24 AM CDT Associated attestation - Claudette Bansal M.S., [facility] - 03/03/2021 8:24 AM CDT I supervised VIKTORIYA Edwards, PhD, genetics fellow for this case. I agree with his assessment and plan. documented in this encounter Plan of Treatment Upcoming Encounters Date Type Specialty Care Team Description 04/11/2022 Clinical Communication Admitting/Central Scheduling 04/13/2022 Appointment Laboratory Medicine Debbie Ivey M.D. [address] [place] [address] 04/13/2022 Office Visit Oncology Walter Barnhart M.D., Ph.D. [address] [place] [phone] documented as of this encounter Results BRACAnalysis with [facility]Sent Out [facility] (03/05/2021 2:32 PM CDT) [facility] Method Time Signature BRACAnalysis SEE COMMENT 02/01/2022 MYRI with [facility] 2:46 PM CDT Comment: REVISED RESULTS Revised Report has been issued by [facility]. The revision has been sent to the [facility]adal[facility] villeg[facility]. ----PREVIOUSLY REPORTED ---- For final report, select Lab-Send Out Lab Results hyperlink below., Flagged as: Normal (Re ported 03/15/2021 15:08) Specimen Anatomical Collection Method Collection Time Receive d Time (Source) Location / / Volume Laterality Blood (Blood, 03/05/2021 2:32 PM 03/15/20 21 2:32 Venous) CDT PM CDT Narrative This result has an attachment that is no t available. Raymon Bonilla M.D. LAB GENETIC TESTING Performing Organization Address City/State/[facility] Code Phon e Number [employer] [address] [place] [address] [email or web address] MYRI rumr: [place] [address] [employer] [address] [facility] documented in this encounter Visit Diagnoses Diagnosis Cancer Bladder Family History - Primary Malignant Neoplasm Of Ovary Laterality U nknown (HCC) Cancer Pancreas Family History documented in this encounter
--- OUTSIDE RECORDS SUMMARY | 2022-03-28 16:31 | XMS_ITS | Encounter Summary ---
:1975 Author Organization [facility] Address [address] [place] [address] Care Team Providers Name Role Phone Unavailable Primary Care Provider Unavailable Encounter Details Date Type Department Care Team Description 02/23/2021 Clinical Communication Department of Walter Barnhart Oncology in [place], Ph.D. [place], [place] [address] [facility] [address] [place] [phone] Social History Tobacco Use Types Packs/Day Years [...] Laboratory Medicine Debbie Ivey M.D. [address] [place] [phone] 04/13/2022 Office Visit Oncology Walter Barnhart M.D., Ph.D. [address] [place] [phone] documented as of this encounter Visit Diagnoses Not on filedocumented in this encounter
--- OUTSIDE RECORDS SUMMARY | 2022-03-28 16:31 | XMS_ITS | Encounter Summary ---
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 200 [place], [place] [phone] Referral ID Status Reason Start Date Expiration Date Visits Requ ested Visits Authorized [id number] Closed 02/17/2021 03/19/2021 1 1 Encounter Details Date Type Department Care Team Description 02/23/2021 Hospital Encounter Department of Walter Barnhart Malign ant Neoplasm Radiology, Jeramy De La Cruz M.D., Ph.D. Of Ovary Laterality [facility], in 200 [facility] Unknown (HCC) [facility] [phone] [place] [address] [place], [place] (Work) [phone] Social History Tobacco Use Types Packs/Day Years [...] Laboratory Medicine Debbie Ivey M.D. [address] [place] [phone] 04/13/2022 Office Visit Oncology Walter Barnhart M.D., Ph.D. [address] [place] [phone] documented as of this encounter Procedures Procedure [...]
--- OUTSIDE RECORDS SUMMARY | 2022-03-28 16:31 | XMS_ITS | Encounter Summary ---
:1975 Author Organization [facility] Address [address] [place] [address] Care Team Providers Name Role Phone Unavailable Primary Care Provider Unavailable Reason for Visit Reason Comments Genetic Test Results Encounter Details Date Type Department Care Team Description 03/16/2021 Documentation Department of Medical Brian More Genetic Test Results Genetics in [place], [facility] [address] [place], [place] [address] [facility] [address] [place], [place] [phone] (Work) [phone] Social History Tobacco Use Types Packs/Day Years [...] she elected to pursue the [facility]Analysis [facility] [address]. These results were communicated to the patient via the patient online services portal by our genetic counseling endodontic assistant. 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 ?? A VUS is a change in [...] recommendations, such as those made by the [place] [employer], do remain appropriate. FOLLOW UP/RECOMMENDATIONS [...] Laboratory Medicine Debbie Ivey M.D. [address] [place] [phone] 04/13/2022 Office Visit Oncology Walter Barnhart M.D., Ph.D. [address] [place] [address] documented as of this encounter Visit Diagnoses Not on filedocumented in this encounter
--- OUTSIDE RECORDS SUMMARY | 2022-03-28 16:31 | XMS_ITS | Encounter Summary ---
:1975 Author Organization [facility] Address [address] [place] [address] Care Team Providers Name Role Phone Unavailable [...] Expiration Date Visits Requ ested Visits Authorized [id number] 1 1 Encounter Details Date Type Department Care Team Description 04/25/2021 Emergency [facility], Norma Mckay D.O. [address] [place] [phone] Obstruction Intestinal (HCC) (Primary Dx ); [facility], Dat Rae M.D. [address] [place] [address] Fever Of Unknown Origin Second Floor Latisha Quintanilla M.D. [address] [place] [phone] [place] [phone] Social History Tobacco Use Types Packs/Day [...] 1 to 4 times per year 02/09 worship services? Do you belong to any clubs [...] Comments Blood Pressure 111/63 04/25/2021 8:42 AM ENGINEER SYSTEMS Pulse 82 04/25/2021 8:42 AM [employer] Temperature 37.7 ??C (99.9 ??F) 04/25/2021 8:42 AM ENG[employer]S Respiratory Rate 16 04/25/2021 8:42 AM ENGINEER [employer]S Oxygen Saturation 97% 04/25/2021 8:42 AM ENGINEER [employer]S Inhaled Oxygen Concentration - - Weight 59.5 kg (131 lb 2.8 oz) 04/25/2021 5:00 AM [employer]S Height 170.2 cm (5' 7.01) 04/25/2021 5:00 AM [employer]S Body Mass Index 20.54 04/25/2021 5:00 AM [employer] documented in this encounter Discharge Summaries Latisha Quintanilla M.D. - 04/25/2021 4:54 PM CST DISCHARGE SUMMARY BRIEF OVERVIEW Hospital: [facility] Discharge Provider: Latisha Quintanilla M.D. No [...] Scheduled Appointments 05/02/2021 10:20 AM LAB 01 [facility] Laboratory Medicine 05/02/2021 3:[address] [place] [...] leukocytosis. On 04/25/2021, she presented to the [facility] ED for persistent lower abdominal pain radiating [...] Negative Bilirubin Negative pH 8.5 (A) Specific [place] 1.020 Urobilinogen 0.2 Lactate, baseline Collection Time: [...] and caregiver(s). Latisha Quintanilla M.D. Family Medicine, [address] [address] [employer] documented in this encounter Medications at Time of Discharge Medication Sig Dispensed Refills Start Date End Date fgflqls-[id number]- Take 1 tablet by 0 capryl 100 [...] at discharge: TBD Manasa Grissom Pharm.D., R.Ph. [employer] documented in this encounter H&P Notes Dat [...] ovarian cancer diagnosed recently. Being followed in [place] and undergoing chemotherapy. Last chemotherapy was 10 [...] and lab result. I wish patient well. [employer] documented in this encounter Nursing Notes Jaimee [...] by: Jaimee Starks R.N. 04/25/21 5:41 PM [employer] SYSTEMS Jaimee Starks R.N. - 04/25/2021 5:23 PM [...] by: Jaimee Starks R.N. 04/25/21 5:25 PM [employer] SYSTEMS Ally Smith R.N. - 04/25/2021 6:43 AM [...] by: Aurelia Smith R.N. 04/25/21 6:46 AM ENGINE[employer]S [employer] SYSTEMS documented in this encounter ED Notes Federica Mckay D.O. - 04/25/2021 1:38 AM CST [facility] EMERGENCY DEPARTMENT ENCOUNTER Patient Name: [...] Negative Bilirubin Negative pH 8.5 (*) Specific [place] 1.020 Urobilinogen 0.2 C-REACTIVE PROTEIN (CRP), S/P [...] low-grade fever, I did contact Oncology in [place] where she doctors, and spoke with the on-call physician Dr. Sadler regarding admitting locally verses transfer to [facility]. Dr. Sadler noted that obstructions due to [...] Intestinal (HCC) 2. Fever Of Unknown Origin Derrick Rodriguez Sarah, D.O. 04/25/21440 [employer] documented in this encounter Miscellaneous Notes Hospital Course - Latisha Quintanilla M.D. - 04/25/2021 4:51 PM CST Angelica Yagn is a 45 year old female with ovarian cancer (on chemotherapy) and Neulasta associated leukocytosis. On 04/25/2021, she presented to the [facility] ED for persistent lower abdominal pain radiating [...] Negative Bilirubin Negative pH 8.5 (A) Specific [place] 1.020 Urobilinogen 0.2 Lactate, baseline Collection Time: [...] SARS Coronavirus 2, Source, Rapid Swab, Nasopharynx [employer] documented in this encounter Plan of Treatment Upcoming Encounters Date Type Specialty Care Team Description 04/11/2022 Clinical Communication Admitting/Central Scheduling 04/13/2022 Appointment Laboratory Medicine Debbie Ivey M.D. [address] [place] [phone] 04/13/2022 Office Visit Oncology Walter Barnhart M.D., Ph.D. [address] [place] [phone] documented as of this encounter Procedures Procedure Name Priority Date/Time Associated Comments Diagnosis ADULT OXYGEN THERAPY Routine 04/25/2021 5:50 AM ENGINE[employer]S SARS CORONAVIRUS 2, STAT 04/25/2021 3:20 Resul ts for PCR RAPID, V AM [employer] this procedure are in the results section. CT ABDOMEN PELVIS RAD - Semiurgent 04/25/2021 2:27 Res ults for WITH IV CONTRAST (Fast; most ED AM ENG[employer] this proc edure patients; some are in the inpatients) results section. BACTERIA / EBONY STAT 04/25/2021 2:07 Result s for CULTURE, BLOOD AM [employer] this procedur e are in the results section. BACTERIA / EBONY STAT 04/25/2021 1:58 Result s for CULTURE, BLOOD AM [employer] this procedur e are in the results section. CBC WITH STAT 04/25/2021 1:58 Results for DIFFERENTIAL, B AM [employer] this procedu re are in the results section. C-REACTIVE PROTEIN STAT 04/25/2021 1:58 Result s for (CRP), S/P AM [employer] this procedure are in the results section. LACTATE, B/P STAT 04/25/2021 1:58 Results for AM [employer] this procedure are in the results section. COMPREHENSIVE STAT 04/25/2021 1:58 Results for METABOLIC PANEL, S/P AM [employer] this pr ocedure are in the results section. URINALYSIS WITH STAT 04/25/2021 1:38 Results f or MICROSCOPIC IF AM [employer] this procedur e INDICATED, U are in the results section. documented in this encounter Results SARS Coronavirus 2, PCR Rapid, V Symptomatic (04/25/2021 3:20 AM ENGINEER [employer]) [facility] Method Time Signature SARS CoV-2, Undetected Undetected 04/25/2021 NPRG PCR, Rapid, V 4:15 AM ENGINEER [employer] Comment: ----ADDITIONAL INFORMATION---- This RT-PCR test was performed using the Gayle SARS-CoV-2 and Influenza A/B Reagent assay from [employer], which has received Emergency Use Authori zation(EUA) by the U.S. Food and Drug Administration . Fact sheets for this Emergency Use Autho rization (EUA) assay can be found at the following link s: For Healthcare Providers: https://www.fda.gov/media/568222/downloa d For Patients: https://www.fda.gov/media/463556/downloa d SARS Coronavirus 2, Source, Rapid Swab, Nasopharynx 04/25/2021 3:48 AM ENGINEER [employer] NPRG Specimen Anatomical Collection Method Collection Time Receive d Time (Source) Location / / Volume Laterality Varies 04/25/2021 3:20 AM 3:48 (Nasopharynx) ENGINEER [employer]S AM [employer]S Federica Mckay D.O. LAB MICROBIOLOGY - GENERAL O RDERABLES Performing Organization Address City/State/ZIP Code Phon e Number [facility]- [address] [place], [place] [address] [facility] NPR[facility] [place] [address] Abdomen Pelvis with IV Contrast (04/25/2021 2:27 AM ENGINEER SYSTEMS) Anatomical Region Laterality Modality Abdomen, Pelvis, Abdominal RST LOS, Abdominal ARZ LOS, N/A Computed Tomography Abdominal FLA LOS Specimen (Source) Anatomical Collection Method Collection Time Re ceived Time Location / / Volume Laterality 04/25/2021 8:33 AM ENGINE[employer] Impressions 04/25/2021 8:46 AM ENGINE[employer]S 1. Interval size decrease of cystic septated [...] cting system calculus. Narrative 04/25/2021 8:46 AM ENGINE[employer] EXAM: CT ABDOMEN PELVIS WITH IV CONTRAST [...] osseous lesion. vRad: ??Findings concordant with prelimi nary vRad report. Procedure Note Fabrizio Vargas M.D. [...] Ebony Culture, Blood #1 (04/25/2021 2:07 AM ENGINEER [employer]S) Patholo gist Method Time Signature Bacteria/[place] No growth 04/30/2021 NPRG da Culture, after 5 3:03 AM [employer] Blood day/s of incubation. Specimen (Source) Anatomical Collection Method Collection Time Re ceived Time Location / / Volume Laterality Blood (Blood, 04/25/2021 2:07 04/25/2021 2:32 Peripheral Draw) AM ENG[employer]S AM ENG[employer] SYSTEMS Comment: Specimen Source Site: Blood Federica Mckay D.O. LAB MICROBIOLOGY - GENERAL O RDERABLES Performing Organization Address [facility] Phon e Number [place] [phone] 1 [place] [facility] NPR[facility] [address] (ABNORMAL) CRP (C-Reactive Protein) (04/25/2021 1:58 AM ENGINEER SYSTEMS) athologist Signature C-Reactive 8.3 (H) <=8.0 mg/L 04/25/2021 NPRG Protein (CRP), 2:38 AM ENGINE[employer] Specimen Anatomical Collection Method Collection Time Receive d Time (Source) Location / / Volume Laterality Blood (Blood, 04/25/2021 1:58 AM 04/25/20 2:26 Venous) [employer]S AM [employer] SYSTEMS Federica Mckay D.O. LAB BLOOD ADD-ON Performing Organization Address [facility] Phon e Number [place] [phone] [place] [address] (ABNORMAL) Comprehensive Metabolic Panel (04/25/2021 1:58 AM ENG[employer]ER [employer]) athologist Signature Potassium, P 4.3 3.6 - 5.2 04/25/2021 NPRG mmol/L 2:38 AM [employer] Sodium, P 135 135 - 145 04/25/2021 NPRG mmol/L 2:38 AM ENGINE[employer] Chloride, P 101 98 - 107 04/25/2021 NPRG mmol/L 2:38 AM [employer] Bicarbonate, P 25 22 - 29 04/25/2021 NPRG mmol/L 2:38 AM [employer] Anion Gap, P 9 7 - 15 04/25/2021 NPRG 2:38 AM ENG[employer] BUN (Blood Urea 16 6 - 21 04/25/2021 NPRG Nitrogen), P mg/dL 2:38 AM ENGINE[employer] Creatinine 0.75 0.59 - 04/25/2021 NPRG 1.04 mg/dL 2:38 AM ENGINEER [employer]S eGFR-Black/Afric >90 >=60 04/25/2021 NPRG an Citizen Of [place] mL/min/BSA 2:38 AM ENGINEER [employer]S Comment: ----ADDITIONAL INFORMATION---- Estimated GFR calculated using the 2009 CKD_EPI creatinine equation. eGFR Non-Black/ >90 >=60 mL/min/BSA 04/25/2021 2:38 AM [employer] NPRG Comment: ----ADDITIONAL INFORMATION---- Estimated GFR calculated using the 2009 CKD_EPI creatinine equation. Calcium, Total, P 9.6 8.6 - 10.0 mg/dL 04/25/2021 2:38 AM ENGINE[employer] NPRG Glucose, P 105 70 - 140 mg/dL 04/25/2021 2:38 AM ENGINEER [employer]S N PRG Protein, Total, P 7.4 6.3 - 7.9 g/dL 04/25/2021 2:38 A M [employer] NPRG Albumin, P 4.5 3.5 - 5.0 g/dL 04/25/2021 2:38 AM ENGINEER [employer]S N PRG Aspartate Aminotransferase 37 8 - 43 U/L 04/25/2021 2 :38 AM ENGINEER SYSTEMS NPRG (AST), P Alkaline Phosphatase, P 116 (H) 35 - 104 U/L 04/25/2021 2: 38 AM ENGINEER [employer] NPRG Alanine Aminotransferase 28 7 - 45 U/L 04/25/2021 2:3 8 AM ENGINEER [employer]S NPRG (ALT), P Bilirubin, Total, P 0.2 <=1.2 mg/dL 04/25/2021 2:38 AM ENGINEER [employer]S NPRG Specimen Anatomical Collection Method Collection Time Receive d Time (Source) Location / / Volume Laterality Blood (Blood, 04/25/2021 1:58 AM 04/25/20 2:26 Venous) [employer] AM [employer]ER SYSTEMS Federica Mckay D.O. LAB BLOOD ADD-ON Performing Organization Address City/State/ZIP Code Phon e Number [facility]- [facility] [address] [place], [place] [address] [place] [place] [address] (ABNORMAL) CBC with Differential, Blood (04/25/2021 1:58 AM ENGINEER [employer]S) [facility] Method Time Signature Hemoglobin 11.5 (L) 11.6 - 04/25/2021 NPRG 15.0 g/dL 2:47 AM [employer]ER [employer] Hematocrit 35.1 (L) 35.5 - 04/25/2021 NPRG 44.9 % 2:47 AM ENGINE[employer] Erythrocytes 3.90 (L) 3.92 - 04/25/2021 NPRG 5.13 2:47 AM ENGINEER [employer]S x10(12)/L MCV 90.0 78.2 - 04/25/2021 NPRG 97.9 fL 2:47 AM ENG[employer] RBC Distrib Width 16.3 (H) 12.2 - 04/25/2021 NPRG 16.1 % 2:47 AM ENGINEER [employer] Platelet Count 213 157 - 371 04/25/2021 NPRG x10(9)/L 2:47 AM [employer] Leukocytes 17.0 (H) 3.4 - 9.6 04/25/2021 NPRG x10(9)/L 2:47 AM [employer]S Neutrophils 14.34 (H) 1.56 - 04/25/2021 NPRG 6.45 2:47 AM ENGINEER [employer]S x10(9)/L Lymphocytes 1.34 0.95 - 04/25/2021 NPRG 3.07 2:47 AM ENGINEER [employer]S x10(9)/L Monocytes 1.26 (H) 0.26 - 04/25/2021 NPRG 0.81 2:47 AM ENGINEER [employer]S x10(9)/L Eosinophils 0.05 0.03 - 04/25/2021 NPRG 0.48 2:47 AM ENGINEER [employer]S x10(9)/L Basophils 0.05 0.01 - 04/25/2021 NPRG 0.08 2:47 AM ENGINEER [employer]S x10(9)/L Specimen Anatomical Collection Method Collection Time Receive d Time (Source) Location / / Volume Laterality Blood (Blood, 04/25/2021 1:58 AM 04/25/20 2:10 Venous) [employer]S AM [employer] SYSTEMS Federica Mckay D.O. LAB BLOOD ADD-ON Performing Organization Address City/State/ZIP Code Phon e Number [address] [address] [place] [facility] [place] [phone] Lactate, baseline (04/25/2021 1:58 AM ENGINEER SYSTEMS) athologist Signature Lactate, P 0.8 0.5 - 2.2 04/25/2021 NPRG mmol/L 2:36 AM ENG[employer] Specimen Anatomical Collection Method Collection Time Receive d Time (Source) Location / / Volume Laterality Blood (Blood, 04/25/2021 1:58 AM 04/25/20 2:26 Venous) [employer]S AM [employer]S Federica Mckay D.O. LAB BLOOD NON ADD-ON Performing Organization Address [facility] Phon e Number [place] [phone] [place] [facility] [place] [phone] [address] Bacteria / Ebony Culture, Blood #2 (04/25/2021 1:58 AM ENGINEER SYSTEMS) [facility] gist Method Time Signature Bacteria/[place] No growth 04/30/2021 NPRG da Culture, after 5 3:03 AM ENGINE[employer] Blood day/s of incubation. Specimen (Source) Anatomical Collection Method Collection Time Re ceived Time Location / / Volume Laterality Blood (Blood, 04/25/2021 1:58 04/25/2021 2:13 Peripheral Draw) AM ENGINEER SYSTEMS AM ENG[employer]ER SYSTEMS Comment: Specimen Source Site: Blood Federica Mckay D.O. LAB MICROBIOLOGY - GENERAL O RDERABLES Performing Organization Address City/[facility]/ZIP Code Phon e Number [place] [phone] [place] [address] (ABNORMAL) Urinalysis with Microscopic if Indicated (04/25/2021 1:38 AM ENGINEER [employer]S) athologist Signature Source Urine, 04/25/2021 NPRG Urine, Clean 2:11 AM ENG[employer] Catch Clarity Clear Clear 04/25/2021 NPRG 2:29 AM ENG[employer]ER [employer] Color Yellow 04/25/2021 NPRG 2:29 AM ENG[employer] Comment: ----REFERENCE VALUE---- Colorless Yellow Chandrika Blood Negative Negative 04/25/2021 2:29 AM ENGINEER SYSTEMS NPRG Nitrite Negative Negative 04/25/2021 2:29 AM ENGINEER SYSTEMS NPRG Leukocyte Esterase Negative Negative 04/25/2021 2:29 AM CS T NPRG Protein Negative mg/dL 04/25/2021 2:29 AM ENGINEER SYSTEM[employer] NPRG Comment: ----REFERENCE VALUE---- Negative Trace Glucose Negative Negative mg/dL 04/25/2021 2:29 AM ENGINEER SYSTEMS [employer] RG Ketones, QI(U) Negative Negative mg/dL 04/25/2021 2:[address] NPRG Bilirubin Negative Negative 04/25/2021 2:29 AM ENGINEER [employer] NPRG pH 8.5 (A) 5.0 - 8.0 04/25/2021 2:29 AM ENGINEER SYSTEMS NPRG Specific [place] 1.020 1.001 - 1.035 04/25/2021 2:29 AM ENGINEER SYSTEMS NPRG Urobilinogen 0.2 0.2 - 1.0 mg/dL 04/25/2021 2:29 AM CS T NPRG Specimen Anatomical Collection Method Collection Time Receive d Time (Source) Location / / Volume Laterality Urine (Urine, 04/25/2021 1:38 AM 04/25/20 2:11 Clean Catch) ENG[employer] SYSTEMS AM ENG[employer]ER SYSTEMS Federica Mckay D.O. LAB URINE ORDERABLES Performing Organization Address City/State/ZIP Code Phon e Number [facility]- [facility] [address] [place], [place] [address] [place] [address] [place] [address] [place] [address] [place] documented in this encounter Visit Diagnoses Diagnosis Obstruction Intestinal (HCC) - Primary Obstruction Intestinal (HCC) Fever Of Unknown Origin documented in this encounter Admitting Diagnoses Diagnosis Obstruction Intestinal (HCC) documented in this encounter Administered Medications Inactive Administered Medications - up to 3 most recent administrations Medication Order MAR Action Action Date Dose Rate Site acetaminophen tablet 1,000 mg Given 04/25/2021 2:29 AM ENG[employer]ER [employer]S 1,000 mg (TYLENOL) 1,000 mg, oral, Once, On 04/25/21 at 0229, For 1 dose acetaminophen tablet 1,000 mg (TYLENOL) Given 04/25/2021 9:15 AM ENG[employer]S 1,000 mg 1,000 mg, oral, Once, On Sun04/25/21 at 0600, For 1 dose ascorbic acid (vitamin C) tablet 1,000 mg Given 04/25/2021 9 :15 AM ENGINEER SYSTEMS 1,000 mg (VITAMIN C) 1,000 mg, oral, Daily, First dose on Sun04/25/21 at 0900 ibuprofen tablet 200 mg (ADVIL,MOTRIN) Given 04/25/2021 9:15 AM ENGINEER SYSTEMS 200 mg 200 mg, oral, Every 4 hours PRN, moderate pain or score 4-6 of 10, Starting on Sun04/25/21 at 0542, Take with food or milk if GI disturbances occur with use. iohexoL 300 mg iodine/mL solution 1-200 mL Given 04/25/2021 2:28 AM ENGINEER SYSTEMS 100 mL (OMNIPAQUE) 1-200 mL, intravenous, Once in imaging, contrast, Starting on Sun04/25/21 at 0228, For 1 dose, Dose per Radiant Medication Guidelines NaCl 0.9% infusion New Bag 04/25/2021 2:34 PM ENG[employer]ER SYSTEMS 100 mL/hr 100 mL/hr 100 mL/hr, intravenous, Continuous, Starting on Sun04/25/21 at 0410 New Bag 04/25/2021 4:23 AM ENGINEER SYSTEMS 100 mL/hr 100 mL/hr sodium chloride 0.9 % flush 100 mL Given 04/25/2021 2:28 AM ENGINEER SYSTEMS 100 mL 100 mL, intravenous, Once in imaging, line care, Starting on Sun04/25/21 at 0228, For 1 dose sodium chloride 0.9 % injection 2-10 mL Given 04/25/2021 1:59 AM ENGINEER [employer]S 10 mL 2-10 mL, intravenous, As needed, line care, Starting on Sun04/25/21 at 0146 documented in this encounter Active and Recently Administered Medications Times are shown in ENGINEER SYSTEMS. Scheduled Medication Order 04/23/2021 04/24/2021 04/25/2021 acetaminophen [...] 0423 (New Bag - Provider: Caitlin Allan RAustin)0444 (Continue to Inpatient Floor - Provider: Caitlni Allan R.N.)1434 (New Bag - Provider: Bronwyn [...] mg of calcium, oral, Every 2 hour IL N, heartburn, indigestion, Starting on Sun04/25/21 at 0549, Doses listed are in mg of elemental calcium. Take with food. 500 mg calcium carbonate contains 200 mg of elemental calcium. ibuprofen tablet 200 mg (ADVIL,MOTRIN) 0915 (Given - Provider: Sri Faye R.N.) 200 mg, oral, Every 4 hours PRN, moderat e pain or score 4-6 of 10, Starting on Sun04/25/21 at 0542, Take with food or milk if GI disturbances occur with use. iohexoL 300 mg iodine/mL solution 1-200 mL (OMNIPAQUE) (COMPLETE D) 227 (Given - Provider: Dejuan Walsh(R)(CT), R.TChapincito(R) - Comment: [phone]) 1-200 mL, intravenous, Once in imaging, contrast, [...] (COMPLETED) 227 (Given - Provider: Dejuan Walsh(R)(CT), R.TChapincito(R)) 100 mL, intravenous, Once in imaging, li ne care, Starting on Sun04/25/21 at 0228, For [...] COVID19 Pending 04/25/2021 04/25/2021 04/25/2021 4:15 AM ENG[employer]ER SYSTEMS documented as of this encounter
--- OUTSIDE RECORDS SUMMARY | 2022-03-28 16:31 | XMS_ITS | Encounter Summary ---
:1975 Author Organization [facility] Address [address] [place] [address] Care Team Providers Name Role Phone Unavailable [...] [place] DEXAMETHASONE SODIUM PHOS Ph.D. [address] [facility] [address] [place] [phone] Referral ID Status Reason Start Date Expiration Date Visits V isits Requested Authorized [id number] Authorized 02/17/2021 02/17/2022 12 12 Encounter Details Date Type Department Care Team Description 03/15/2021 Office Visit Department of Oncology [facility] Mon[facility] O[place] Laterality [place] [address] [place] [address] Unknown (HCC) [address] [place] [phone] Social History Tobacco Use Types Packs/Day Years [...] Chemotherapy CARBOplatin AUC 6 / PACLitaxel ( WOUND CARE SPECIALIST ) Start Date: 02/25/2021 INTERVAL HISTORY: Visit [...] Laboratory Medicine Debbie Ivey M.D. [address] [place] [phone] 04/13/2022 Office Visit Oncology Walter Barnhart M.D., Ph.D. 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
--- OUTSIDE RECORDS SUMMARY | 2022-03-28 16:31 | XMS_ITS | Encounter Summary ---
:1975 Author Organization [facility] Address [address] [place] [address] Care Team Providers Name Role Phone Unavailable Primary Care Provider Unavailable Encounter Details Date Type Department Care Team Description 04/07/2021 Orders Only Department of Oncology Marychuy Kapoor, Malignant Neoplasm Of Ovary Laterality Unknown (HCC) (Primary Dx); in [place], MECHANIC CHIEF, C.N.P., Neutropenia D rug Induced (HCC) [place] M.S.N. [address] [facility] [address] [place] [phone] Social History Tobacco Use Types Packs/Day Years [...] Laboratory Medicine Debbie Ivey M.D. [address] [place] [phone] 04/13/2022 Office Visit Oncology Walter Barnhart M.D., Ph.D. 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
--- OUTSIDE RECORDS SUMMARY | 2022-03-28 16:31 | XMS_ITS | Encounter Summary ---
:1975 Author Organization [facility] Address [address] [place] [address] Care Team Providers Name Role Phone Unavailable Primary Care Provider Unavailable Reason for Visit Episode Based Medications (Routine) - Authorized Specialty Diagnoses / Procedures Referred By Contact Refer red To Contact Diagnoses Malignant Neoplasm Of Ovary Laterality Unknown (HCC) Walter Barnhart M.D., R Onc Rog[place] Procedures [place] CARBOPLATIN INJECTION [place] PACLITAXEL INJECTION [place] INJECTION, PEGFILGRASTIM 6MG [place] DEXAMETHASONE SODIUM PHOS Ph.D. [address] [place] [phone] Referral ID Status Reason Start Date Expiration Date Visits V isits Requested Authorized [id number] Authorized 02/17/2021 02/17/2022 12 12 Encounter Details Date Type Department Care Team Description 03/15/2021 Infusion Department of Oncology Walter Barnhart, Malignant Neoplasm Of in [facility] rojelio Mendoza, Ph.D. Ovary Laterality [address] [facility] Unknown (HCC) (Primary [place], [place] Dx) [phone] (Wo rk) Social History Tobacco Use Types [...] Laboratory Medicine Debbie Ivey M.D. [address] [place] [phone] 04/13/2022 Office Visit Oncology Walter Barnhart M.D., Ph.D. [address] [place] [address] documented as of this encounter Visit Diagnoses [...]
--- OUTSIDE RECORDS SUMMARY | 2022-03-28 16:31 | XMS_ITS | Encounter Summary ---
:1975 Author Organization [facility] Address [address] [place] [address] Care Team Providers Name Role Phone Unavailable Primary Care Provider Unavailable Encounter Details Date Type Department Care Team Description 03/03/2021 Hospital Encounter Department of Raymon Bonilla Neoplasm Of Ovary Laterality Unknown (HCC); Laboratory Medicine Kelly Myles Cancer Bladder Family History; and Pathology, [address] [place] [address] Cancer Pancreas Family History [facility] in [place], [place] [address] [place] [address] [place], [place] (Work) [phone] Social History Tobacco Use Types Packs/Day [...] Appointment Laboratory Medicine Debbie Ivey M.D. [address] [place] [phone] 04/13/2022 Office Visit Oncology Walter Barnhart M.D., Ph.D. [address] [place] [phone] documented as of this encounter Procedures Procedure [...] myRisk-Sent Out Lab (03/05/2021 2:32 PM CDT) [facility] Method Time Signature BRACAnalysis SEE COMMENT 02/01/2022 HAN with Sylvester 2:46 PM CDT Comment: REVISED RESULTS Revised Report has been issued by [facility]. The revision has been sent to the guadalupe simmons record. ----PREVIOUSLY REPORTED ---- For final report, select [...] Organization Address City/State/ZIP Code Phon e Number [facility] [address] [facility] [place] [address] [employer] 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
--- OUTSIDE RECORDS SUMMARY | 2022-03-28 16:32 | XMS_ITS | Encounter Summary ---
:1975 Author Organization [facility] Address [address] [place] [address] Care Team Providers Name Role Phone Unavailable Primary Care Provider Unavailable Reason for Visit Reason Comments [id number] Encounter Details Date Type Department Care Team Description 02/18/2021 Clinical Communication Department of Walter Barnhart D1C1 Oncology in M.D., Ph.D. [place], [place] [address] [facility] [address] [place] [phone] Social History Tobacco Use Types Packs/Day Years [...] Laboratory Medicine Debbie Ivey M.D. [address] [place] [phone] 04/13/2022 Office Visit Oncology Walter Barnhart M.D., Ph.D. [address] [place] [phone] documented as of this encounter Visit Diagnoses Not on filedocumented in this encounter
--- OUTSIDE RECORDS SUMMARY | 2022-03-28 16:32 | XMS_ITS | Encounter Summary ---
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 [address] [place] [phone] Referral ID Status Reason Start Date Expiration Date Visits Requ ested Visits Authorized [id number] Closed 02/23/2021 02/23/2022 1 1 Reason for Visit Outpatient (Routine) - Closed Specialty Diagnoses / Procedures Referred By Contact Refer red To Contact Medical Oncology / Diagnoses Mass Adnexal Denisha Oviedo [facility] Oncology M.DChapincito [address] [place] [phone] Referral ID Status Reason Start Date Expiration Date Visits Requ ested Visits Authorized [id number] Closed 02/11/2021 02/11/2022 1 1 Encounter Details Date Type Department Care Team Description 02/23/2021 Comprehensive Visit Department of Walter Barnhart Neoplasm Of Ovary Laterality Unknown (HCC) (Primary Dx); Oncology brittney De La Cruz M.D., Ph.D. [place] [facility] [place] [address] [place], [place] [address] [place] [phone] [place], [place] [phone] (Work) [phone] Social History Tobacco Use Types Packs/Day Years [...] - 02/23/2021 1:40 PM CDT SUBJECTIVE PRIMARY [place] ONCOLOGIST Walter Barnhart M.D., Ph.D. REASON FOR [...] Chemotherapy CARBOplatin AUC 6 / PACLitaxel ( DRUG REGULATORY AFFAIRS SPECIALIST ) Start Date: 02/24/2021 (Planned) Was [...] Chemotherapy CARBOplatin AUC 6 / PACLitaxel ( DRUG REGULATORY AFFAIRS SPECIALIST ) Start Date: 02/24/2021 (Planned) INTERVAL [...] ongoing an upcoming vaccine clinical trials at [facility]. Ms. Yang is interested in participating in [...] Laboratory Medicine Debbie Ivey M.D. [address] [place] [phone] 04/13/2022 Office Visit Oncology Walter Barnhart M.D., Ph.D. [address] [place] [phone] Scheduled Referrals Name Type Priority Associated Diagnoses Order S [facility] Clinical Genomics Outpatient Referral Routine Malignant Neopla sm Expected: - General genetics Of Ovary Laterality consult (clinic) Unknown (HCC) (Approxima te), Expires: 02/24/2024 documented as of this encounter Visit Diagnoses Diagnosis Malignant Neoplasm Of Ovary Laterality U nknown (HCC) - Primary Mass Adnexal documented in this encounter
--- OUTSIDE RECORDS SUMMARY | 2022-03-28 16:32 | XMS_ITS | Encounter Summary ---
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 [address] [place] [address] [place] [phone] Referral ID Status Reason Start Date Expiration Date Visits V isits Requested Authorized [id number] Authorized 02/17/2021 02/17/2022 12 12 Encounter Details Date Type Department Care Team Description 02/23/2021 Education Department of Oncology Vasu Barnhart M.D., Ph.D. [address] [place] [phone] Malignant Neoplasm Of in Cabrera Dominguez Lisette D, M.S.N., R.N. [address] [place] [phone] Ovary Laterality [place] Unknown (HCC) [address] [place] [phone] Social History Tobacco Use Types Packs/Day Years [...] Laboratory Medicine Debbie Ivey M.D. [address] [place] [phone] 04/13/2022 Office Visit Oncology Walter Barnhart M.D., Ph.D. [address] [place] [phone] documented as of this encounter Visit Diagnoses Diagnosis Malignant Neoplasm Of Ovary Laterality U nknown (HCC) documented in this encounter
--- OUTSIDE RECORDS SUMMARY | 2022-03-28 16:32 | XMS_ITS | Encounter Summary ---
:1975 Author Organization [facility] Address [address] [place] [address] Care Team Providers Name Role Phone Unavailable Primary Care Provider Unavailable Reason for Visit Reason Comments Communication Encounter Details Date Type Department Care Team Description 02/08/2021 Clinical Communication Department of Denihsa Oviedo Communication Obstetrics and E, MMickey. Gynecology in [address] [place], [place] [address] [place] [phone] [place], [place] [phone] (Work) [phone] Social History Tobacco Use Types Packs/Day Years [...] Arabella Evans - 02/08/2021 3:22 PM CDT [facility] called back on this pt and she is rescheduled to 02/11 with a 7:45 am check in. Pt was at [facility] and they were making pt [...] Laboratory Medicine Debbie Ivey M.D. [address] [place] [address] 04/13/2022 Office Visit Oncology Walter Barnhart M.D., Ph.D. [address] [place] [address] documented as of this encounter Visit Diagnoses Not on filedocumented in this encounter
--- OUTSIDE RECORDS SUMMARY | 2022-03-28 16:32 | XMS_ITS | Encounter Summary ---
:1975 Author Organization [facility] Address [address] [place] [address] Care Team Providers Name Role Phone Unavailable Primary Care Provider Unavailable Reason for Visit Reason Comments Other Pre-appointment review Encounter Details Date Type Department Care Team Description 02/09/2021 Documentation Department of Denisha Oviedo Obstetrics and EKelly (Pre-appointment Gynecology in [address] [place] [address] review ) [place], [place] [address] [place] [phone] [place], [place] [phone] (Work) [phone] Social History Tobacco Use Types Packs/Day Years [...] of this encounter Progress Notes Dianne Mcknight, R.N. - 02/09/2021 2:18 PM CDT PREPROCEDURE RECORD REVIEW. Information collected has not been verified by the patient. Patient not seen. Patient will be seen by Denisha Oviedo MD on 02/11/21. Angelica Yang [address] [facility] [phone] ANTICIPATED SURGICAL DATE/PROCEDURE: Pending consult DIAGNOSIS: Large [...] high- grade serous carcinoma. CA-125 was 1617. 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 [address] [place] [phone] 04/13/2022 Office Visit Oncology Walter Barnhart M.D., Ph.D. [address] [place] [phone] documented as of this encounter Visit Diagnoses Not on filedocumented in this encounter
--- OUTSIDE RECORDS SUMMARY | 2022-03-28 16:32 | XMS_ITS | Encounter Summary ---
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 [address] [place] [phone] Referral ID Status Reason Start Date Expiration Date Visits Requ ested Visits Authorized [id number] Closed 02/17/2021 03/19/2021 1 1 Outpatient (Routine) Specialty Diagnoses / Procedures Referred By Contact Refer red To Contact Oncology Walter Barnhart M. D., Ph.D. [address] [phone] Referral ID Status Reason Start Date Expiration Date Visits Requ ested Visits Authorized Outpatient (Routine) Specialty Diagnoses / Procedures Referred By Contact Refer red To Contact Oncology Walter Barnhart M. D., Ph.D. [address] [phone] Referral ID Status Reason Start Date Expiration Date Visits Requ ested Visits Authorized Specialty Diagnoses / Procedures Referred By Contact Refer red To Contact Walter Barnhart M. D., Ph.D. 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 Neutropenia Drug Induced (HCC) [address] [phone] Social History Tobacco Use Types Packs/Day Years [...] Laboratory Medicine Debbie Ivey M.D. [address] [place] [phone] 04/13/2022 Office Visit Oncology Walter Barnhart M.D., Ph.D. [address] [place] [phone] Scheduled Referrals Name Type Priority Associated Diagnoses Order S chedule Oncology - Chemo Outpatient Referral Routine Malignant Neoplas m Expected: education visit Of Ovary Laterality 02/23, (clinic) Unknown (HCC) Expires: 02/23/2022 Oncology office Outpatient Referral Routine Malignant Neoplasm Expected: visit (clinic) Of Ovary Laterality 2020, General; BODY CLEANER Unknown (HCC) Expires: 03/17/2022 Oncology office Outpatient Referral Routine Malignant Neoplasm Expected: visit (clinic) Of Ovary Laterality 2020, General; BODY CLEANER Unknown (HCC) Expires: 04/07/2022 documented as of this encounter Results Creatinine with Estimated GFR (05/02/2021 10:22 AM TAX MAP TECHNICIAN) P athologist Signature Creatinine 0.64 0.59 - 05/02/2021 NPRG 1.04 mg/dL 10:47 AM TAX MAP TECHNICIAN eGFR-Black/Afric >90 >=60 05/02/2021 NPRG an Citizen Of [place] mL/min/BSA 10:47 AM TAX MAP TECHNICIAN Comment: ----ADDITIONAL INFORMATION---- Estimated GFR calculated using the 2009 CKD_EPI creatinine equation. eGFR Non-Black/ >90 >=60 mL/min/BSA 05/02/2021 10:47 AM TAX MAP TECHNICIAN NPRG Comment: ----ADDITIONAL INFORMATION---- Estimated GFR calculated using the 2009 CKD_EPI creatinine equation. Specimen Anatomical Collection Method Collection Time Receive d Time (Source) Location / / Volume Laterality Blood (Blood, 05/02/2021 10:22 05/02/2021 Venous) AM TAX MAP TECHNICIAN 10:27 AM TAX MAP TECHNICIAN Walter Barnhart M.D., Ph.D. LAB BLOOD ADD-ON Performing Organization Address City/[facility] Phon e Number [place] [address] [facility] NPRG [address] (ABNORMAL) CBC, Chemotherapy, No Alerts (05/02/2021 10:22 AM TAX MAP TECHNICIAN) Analysis Performed At Patho logist Time Signature Hemoglobin 11.2 (L) 11.6 - 05/02/2021 NPRG 15.0 g/dL 10:32 AM TAX MAP TECHNICIAN Platelet Count 233 157 - 371 05/02/2021 NPRG x10(9)/L 10:32 AM TAX MAP TECHNICIAN Leukocytes 4.1 3.4 - 9.6 05/02/2021 NPRG x10(9)/L 10:32 AM TAX MAP TECHNICIAN Neutrophils 2.59 1.56 - 05/02/2021 NPRG 6.45 10:32 AM TAX MAP TECHNICIAN x10(9)/L Specimen Anatomical Collection Method Collection Time Receive d Time (Source) Location / / Volume Laterality Blood (Blood, 05/02/2021 10:22 05/02/2021 Venous) AM TAX MAP TECHNICIAN 10:27 AM TAX MAP TECHNICIAN Walter Barnhart M.D., Ph.D. LAB BLOOD ADD-ON Performing Organization Address City/State/[facility] Phon e Number [place] [address] [facility] NPRG [address] Bilirubin, Total (05/02/2021 10:22 AM TAX MAP TECHNICIAN) athologist Signature Bilirubin, 0.4 <=1.2 mg/dL 05/02/2021 NPRG Total, P 10:47 AM TAX MAP TECHNICIAN Specimen Anatomical Collection Method Collection Time Receive d Time (Source) Location / / Volume Laterality Blood (Blood, 05/02/2021 10:22 05/02/2021 Venous) AM TAX MAP TECHNICIAN 10:27 AM TAX MAP TECHNICIAN Walter Barnhart M.D., Ph.D. LAB BLOOD ADD-ON Performing Organization Address City/[facility] Phon e Number [place] [address] LAB NPRG [place] [phone] AST (Aspartate Aminotransferase) (05/02/2021 10:22 AM TAX MAP TECHNICIAN) [facility] gist Method Time Signature Aspartate 23 8 - 43 05/02/2021 NPRG Aminotransferase U/L 10:47 AM TAX MAP TECHNICIAN (AST), Specimen Anatomical Collection Method Collection Time Receive d Time (Source) Location / / Volume Laterality Blood (Blood, 05/02/2021 10:22 05/02/2021 Venous) AM TAX MAP TECHNICIAN 10:27 AM TAX MAP TECHNICIAN Walter Barnhart M.D., Ph.D. LAB BLOOD ADD-ON Performing Organization Address City/[facility] Phon e Number [address] LAB NPRG [place] [phone] (ABNORMAL) Cancer Antigen 125 (CA 125) (05/02/2021 10:22 AM TAX MAP TECHNICIAN) athologist Signature Cancer Ag 125 65 (H) <46 U/mL 05/02/2021 AUST (CA 125), S 10:36 PM TAX MAP TECHNICIAN Comment: Biotin has been identified by the dasiy wall as a potential interfering substance. ??Higher concentr ations of biotin may be found in multivitamins, hair/nail supple ments, and workout supplements. ??If the result does not [facility] clinical observations, repeat testing after patient [...] Blood (Blood, 05/02/2021 10:22 05/02/2021 Venous) AM TAX MAP TECHNICIAN 10:04 PM TAX MAP TECHNICIAN Walter Barnhart M.D., Ph.D. LAB BLOOD ADD-ON Performing Organization Address City/State/[facility] Code Phon e Number [facility]- [address] [place] [address] [facility] [place] [place] [address] [facility] [address] Creatinine with Estimated GFR (04/06/2021 9:14 AM CDT) athologist Signature Creatinine 0.65 0.59 - 04/06/2021 NPRG 1.04 mg/dL 9:46 AM CDT eGFR-Black/Afric >90 >=60 04/06/2021 NPRG an Citizen Of [place] mL/min/BSA 9:46 AM CDT Comment: ----ADDITIONAL INFORMATION---- Estimated GFR calculated using the 2009 CKD_EPI creatinine equation. eGFR Non-Black/ >90 >=60 mL/min/BSA 04/06/2021 9:46 AM CDT NPRG Comment: ----ADDITIONAL INFORMATION---- Estimated GFR calculated using the 2009 CKD_EPI creatinine equation. Specimen Anatomical Collection Method Collection Time Receive d Time (Source) Location / / Volume Laterality Blood (Blood, 04/06/2021 9:14 AM 04/06/20 21 9:17 Venous) CDT AM CDT Walter Barnhart M.D., Ph.D. LAB BLOOD ADD-ON Performing Organization Address City/State/ZIP Code Phon e Number [facility]- [address] [place], [place] [address] [place] [address] [facility] [address] [place] (ABNORMAL) CBC, Chemotherapy, No Alerts (04/06/2021 9:14 [...] Ph.D. LAB BLOOD ADD-ON Performing Organization Address City/[facility] Phon e Number [place] [address] Bilirubin, Total (04/06/2021 9:14 AM CDT) P athologist Signature Bilirubin, 0.7 <=1.2 mg/dL 04/06/2021 NPRG Total, P 9:46 AM CDT Specimen Anatomical Collection Method Collection Time Receive d Time (Source) Location / / Volume Laterality Blood (Blood, 04/06/2021 9:14 AM 04/06/20 9:17 Venous) CDT AM CDT Walter Barnhart M.D., Ph.D. LAB BLOOD ADD-ON Performing Organization Address City/[facility] Phon e Number [place] [address] [place] [address] [facility] [address] AST (Aspartate Aminotransferase) (04/06/2021 9:14 [...] Ph.D. LAB BLOOD ADD-ON Performing Organization Address City/[facility]/ZIP Code Phon e Number [facility]- [address] [place], [place] [address] [facility] [place] [address] [facility] [address] (ABNORMAL) Cancer Antigen 125 [...] supplements. ??If the result does not [facility] clinical observations, repeat testing after patient [...] Ph.D. LAB BLOOD ADD-ON Performing Organization Address City/[facility]/ZIP Code Phon e Number [facility]- [address] [place] [address] [facility] [place], [place] [address] [place] [address] Creatinine with Estimated GFR (03/14/2021 9:47 AM CDT) athologist Signature Creatinine 0.67 0.59 - 03/14/2021 NPRG 1.04 mg/dL 10:10 AM CDT eGFR-Black/Afric >90 >=60 03/14/2021 NPRG an Citizen Of [place] mL/min/BSA 10:10 AM CDT Comment: ----ADDITIONAL INFORMATION---- [...] Organization Address City/State/ZIP Code Phon e Number [facility]- [address] [place], [place] [address] [place] [address] [place] [address] [address] [facility] CBC, Chemotherapy, No Alerts (03/14/2021 9:47 AM [...] Volume Laterality Blood (Blood, 03/14/2021 9:47 AM 10/04/20 21 9:51 Venous) CDT AM CDT Walter Barnhart M.D., Ph.D. LAB BLOOD ADD-ON Performing Organization Address City/State/ZIP Code Phon e Number [place] [address] [address] [place], [place] [address] [place] [address] Bilirubin, Total (03/14/2021 9:47 AM CDT) P athologist Signature Bilirubin, 0.5 <=1.2 mg/dL 03/14/2021 NPRG Total, P 10:10 AM CDT Specimen Anatomical Collection Method Collection Time Receive d Time (Source) Location / / Volume Laterality Blood (Blood, 03/14/2021 9:47 AM 03/14/20 9:51 Venous) CDT AM CDT Walter Barnhart M.D., Ph.D. LAB BLOOD ADD-ON Performing Organization Address City/[facility]/ZIP Code Phon e Number [place] [address] [place], [place] [address] [facility] [place] [phone] AST (Aspartate Aminotransferase) (03/14/2021 9:47 AM [...] Organization Address City/State/ZIP Code Phon e Number [place] [address] [address] [place], [place] [address] [facility] [place] [phone] (ABNORMAL) Cancer Antigen 125 (CA 125) [...] is an electrochemilum inescence assay manufactured by [employer] and performed on the Michela [...] Organization Address City/State/ZIP Code Phon e Number [facility]- [address] [place], [place] [phone] [place] [address] LAB AUST [facility] - [address] Abdomen [...] CDT eGFR-Black/Afric >90 >=60 02/23/2021 METH an Citizen Of [place] mL/min/BSA 10:43 AM CDT Comment: ----ADDITIONAL INFORMATION---- [...] Address City/State/ZIP Code Phon e Number [facility] - [address] [place], [place] [address] [facility] [place] [address] Laboratories-[facility] [address] CBC, Chemotherapy, [...] Address City/State/ZIP Code Phon e Number [facility] - [address] [place], [place] [address] [place] [address] [facility] [address] Bilirubin, Total (02/23/2021 10:08 [...] Address City/State/ZIP Code Phon e Number [facility] - [address] [place], [place] [address] [place] [address] Laboratories-[facility] [address] AST (Aspartate [...] Address City/State/ZIP Code Phon e Number [facility] - [address] [place], [place] [address] [place] [address] [facility] [address] documented in this encounter Visit Diagnoses Diagnosis Malignant Neoplasm Of Ovary Laterality U nknown (HCC) - Primary Neutropenia Drug Induced (HCC) Malignant Neoplasm Of Ovary Laterality U nknown (HCC) documented in this encounter
--- OUTSIDE RECORDS SUMMARY | 2022-03-28 16:32 | XMS_ITS | Encounter Summary ---
:1975 Author Organization [facility] Address [address] [place] [address] Care Team Providers Name Role Phone Unavailable Primary Care Provider Unavailable Reason for Referral MRI/CAT/PET Scan (Routine) - Closed Specialty Diagnoses / Procedures Referred By Contact Refer red To Contact Radiology Diagnoses Mass Adnexal Denisha Oviedo M.D. [facility] Procedures CT Abdomen and/or Pelvis Biopsy [address] [place] [address] Referral ID Status Reason Start Date Expiration Date Visits Requ ested Visits Authorized [id number] Closed 02/11/2021 02/11/2022 1 1 Reason for Visit Auth/Cert Specialty Diagnoses / Procedures Referred By Contact Refer red To Contact Diagnoses Mass Adnexal Procedures CT ABDOMEN AND/OR PELVIS BIOPSY OP Referral ID Status Reason Start Date Expiration Date Visits Requ ested Visits Authorized [id number] 1 1 Encounter Details Date Type Department Care Team Description 02/16/2021 Hospital Encounter Department of Denisha Oviedo M ass Adnexal Radiology, Monet Robb M.D. [facility], in [address] [place] [address] [place] [phone] [place], [place] [phone] (Wo rk) [phone] Social History Tobacco Use Types Packs/Day Years [...] related to the procedure, please contact the [facility] bindery machine setter/set up operator ([phone]) and ask to be connected to the non-vascular interventional radiology fellow senior applications developer documented in this encounter Medications at Time [...] Laboratory Medicine Debbie Ivey M.D. 200 [place] [phone] 04/13/2022 Office Visit Oncology Walter Barnhart M.D., Ph.D. 200 [place] [address] documented as of this encounter Procedures Procedure [...] Pathologis t Range Method Time At Signature 02/20/2021 STMA 2:26 PM CDT Report Andrew Chong M.D. [id number] 02/20/2021 S TMA electronically 2:26 PM signed [...] performance characteri stics 02/20/2021 STMA determined by [facility] in a manner consistent with CLIA 2:26 PM requirements. This test has not been cleared or approved by CDT the U.S. Food and Drug Administration. Interpretation FINAL DIAGNOSIS 02/20/2021 STMA 2:26 PM A. ??Soft tissue, pelvic mass, biopsy: ??Positive for CDT malignancy. ??Rare malignant cells seen associated with necrosis. ??Interpretation limited by sparse cellularity. See case [id number] for diagnosis. Ancillary immunostains trina the tumor [...] Address City/State/ZIP Code Phon e Number [facility] - [address] [place], [place] [address] [place] [address] [facility] [address] [facility] Cytology Fine Needle Aspiration (including core biopsies) (02/16/2021 8:25 AM CDT) Component Value Ref Test Analysis Performed Pathologis t Range Method Time At [facility] 02/17/2021 DTL 6:02 PM CDT Disclaimer This test was developed and its performance characteri stics 02/17/2021 DTL determined by [facility] in a manner consistent with CLIA 6:02 PM requirements. This test has not been cleared or approved by CDT the U.S. Food and Drug Administration. Participated in [facility] 02/17/2021 DTL the Kelly Baires, 6:02 PM Interpretation Ph.D.-Pathology CDT Resident Report Edson Lainez M.D. [id number] 02/17/2021 DT L electronically 6:02 PM signed by CDT I verify that I have examined all relevant slides/materials for the specimen(s) and rendered or confirmed the diagnosis. Seen in consultation with: Andrew Chong M.D. [phone] Gross Description Received 5 alcohol-fixed smears and [...] Address City/State/ZIP Code Phon e Number [facility] - [address] [place], [place] [address] [facility] [address] [facility] [address] documented in [...] or score 4-6 of 10, Starting on 02/16/21 at 0858 sodium chloride 0.9 % injection [...] (VERSED) 0836 (Given - Provider: Juan Antonio Vilal R.N.) 1 mg, intravenous, Every 2 min [...]
--- OUTSIDE RECORDS SUMMARY | 2022-03-28 16:32 | XMS_ITS | Encounter Summary ---
:1975 Author Organization [facility] Address [address] [place] [address] Care Team Providers Name Role Phone Unavailable Primary Care Provider Unavailable Reason for Referral MRI/CAT/PET Scan (Routine) - Closed Specialty Diagnoses / Procedures Referred By Contact Refer red To Contact Radiology Diagnoses Tumor Ovary Uncertain Behavior Bilateral Peritoneal Carcinomatosis (HCC) Abnormal Computed Tomography Pelvis Denisha Oviedo M.D. [facility] Procedures CT Chest without IV Contrast [address] [place] [phone] Referral ID Status Reason Start Date Expiration Date Visits Requ ested Visits Authorized [id number] Closed 02/08/2021 02/08/2022 1 1 Reason for Visit MRI/CAT/PET Scan (Routine) - Closed Specialty Diagnoses / Procedures Referred By Contact Refer red To Contact Radiology Diagnoses Tumor Ovary Uncertain Behavior Bilateral Peritoneal Carcinomatosis (HCC) Abnormal Computed Tomography Pelvis Denisha Oviedo M.D. [facility] Procedures CT Chest without IV Contrast [address] [place] [phone] Referral ID Status Reason Start Date Expiration Date Visits Requ ested Visits Authorized [id number] Closed 02/08/2021 02/08/2022 1 1 Encounter Details Date Type Department Care Team Description 02/11/2021 Hospital Encounter Department of Denisha Oviedo Ovary Uncertain Behavior Bilateral; Radiology, Jeramy Box M.D. Peritoneal Carcinomatosis (HCC); Building, in [address] [place] [address] Abnormal Computed Tomography Pelvis [facility] [phone] 200 [facility] [phone] [place], [place] (Work) [phone] Social History Tobacco Use Types Packs/Day Years [...] Laboratory Medicine Debbie Ivey M.D. [address] [place] [address] 04/13/2022 Office Visit Oncology Walter Barnhart M.D., Ph.D. [address] [place] [address] documented as of this encounter Procedures Procedure [...]
--- OUTSIDE RECORDS SUMMARY | 2022-03-28 16:32 | XMS_ITS | Encounter Summary ---
:1975 Author Organization [facility] Address [address] [place] [address] Care Team Providers Name Role Phone Unavailable Primary Care Provider Unavailable Reason for Referral Specialty Diagnoses / Procedures Referred By Contact Refer red To Contact RST [facility] [address] [place] [phone] Referral ID Status Reason Start Date Expiration Date Visits Requ ested Visits Authorized Reason for Visit Reason Comments Nurse teach Encounter Details Date Type Department Care Team Description 02/18/2021 Clinical Communication Department of Mamie Rees Nurse teach Oncology in D, M.S.N., R.N. [address] [place] [phone] Social History Tobacco Use Types Packs/Day Years [...] Laboratory Medicine Debbie Ivey M.D. [address] [place] [address] 04/13/2022 Office Visit Oncology Walter Barnhart M.D., Ph.D. 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
--- OUTSIDE RECORDS SUMMARY | 2022-03-28 16:32 | XMS_ITS | Encounter Summary ---
:1975 Author Organization [facility] Address [address] [place] [address] Care Team Providers Name Role Phone Unavailable Primary Care Provider Unavailable Reason for Visit Reason Comments Communication Encounter Details Date Type Department Care Team Description 02/07/2021 Clinical Communication Department of Robbin, Bassem mmunication Obstetrics and Provider Gynecology in [place], [place] [address] [place] [address] Social History Tobacco Use Types Packs/Day Years [...] 1 to 4 times per year 02/09 temple services? Do you belong to any clubs [...] 02/07/2021 2:37 PM CDT I have called [facility] to request medical records and recent imaging. I had to leave a VM. Telephone Encounter - Ginette Dennis - 02/07/2021 9:50 AM CDT Pt called in to get care established with our dept. She said she was advised from the [facility] to set up care with us [...] She is sending OSM and imaging from [facility]. She had a recent US and [...] Appointment Laboratory Medicine Debbie Ivey M.D. 200 [place] [phone] 04/13/2022 Office Visit Oncology Walter Barnhart M.D., Ph.D. 200 [place] [phone] documented as of this encounter Visit Diagnoses Not on filedocumented in this encounter
--- OUTSIDE RECORDS SUMMARY | 2022-03-28 16:32 | XMS_ITS | Encounter Summary ---
:1975 Author Organization [facility] Address [address] [place] [address] Care Team Providers Name Role Phone Unavailable Primary Care Provider Unavailable Reason for Referral MRI/CAT/PET Scan (Routine) - Closed Specialty Diagnoses / Procedures Referred By Contact Refer red To Contact Radiology Diagnoses Mass Adnexal Denisha Oviedo M.D. [facility] Procedures CT Abdomen and/or Pelvis Biopsy [address] [place] [phone] Referral ID Status Reason Start Date Expiration Date Visits Requ ested Visits Authorized [id number] Closed 02/11/2021 02/11/2022 1 1 Reason for Visit Appointment Request (Routine) - Closed Specialty Diagnoses / Procedures Referred By Contact Refer red To Contact Obstetrics and Diagnoses Cyst Ovary Complex Gynecology Referral ID Status Reason Start Date Expiration Date Visits Requ ested Visits Authorized [id number] Closed 02/07/2021 02/07/2022 1 1 Encounter Details Date Type Department Care Team Description 02/11/2021 Comprehensive Visit Department of Denisha Oviedo Adnexal (Primary Dx); Obstetrics and Kelly Box Elevated Cancer Antigen 125; Gynecology in [address] [place] [address] Pain Pelvic Female; [place], [place] Pain Generaliz ed Abdominal; [place] [phone] Constipation; [address] [place] [address] Tenesmus Rectal; [place], [place] (Work) Fatigue; [phone] Anorexia Social History Tobacco Use Types Packs/Day [...] for high-grade serous carcinoma.CA-125 was 1617. ?? 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 BMI: 21 PAST MEDICAL HISTORY: [...] Debbie Ivey M.D. [address] [place] [phone] 04/13/2022 Office Visit Oncology Walter Barnhart M.D., Ph.D. [address] [place] [phone] documented as of this encounter Results CT [...] M.D. LAB BLOOD ADD-ON Performing Organization Address City/[facility] Phon e Number [facility] - [address] [place] [address] [facility] [place] [place] [address] [facility] [address] Type and Screen (with reflex Antibody ID) (02/11/2021 9:12 AM CDT) [facility] gist Method Time Signature ABORh B [...] BANK TEST ORDERABL ES Performing Organization Address City/[facility] Phon e Number [facility] - [address] [place], [place] [address] [facility] [place] [address] [facility] [address] documented in this encounter Visit Diagnoses Diagnosis Mass Adnexal - Primary Elevated Cancer Antigen 125 Pain Pelvic Female Pain Generalized Abdominal Constipation Tenesmus Rectal Fatigue Anorexia Mass Adnexal documented in this encounter
--- OUTSIDE RECORDS SUMMARY | 2022-03-28 16:32 | XMS_ITS | Encounter Summary ---
:1975 Author Organization [facility] Address [address] [place] [address] Care Team Providers Name Role Phone Unavailable Primary Care Provider Unavailable Encounter Details Date Type Department Care Team Description 02/11/2021 Hospital Encounter Department of Denisha Oviedo Ovary Uncertain Behavior Bilateral; Laboratory E, [place] Peritoneal Carcinomatosis (HCC); Medicine and [address] [place] [address] Abnormal Computed Tomography Pelvis; [place] [phone] [facility] [phone] [place] (Work) [address] [place] [address] [place], [place] (Fax) [phone] Social History Tobacco Use [...] or relatives? How often do you attend pres[employer] or 1 to 4 times per year 02/09 adventist services? Do you belong to any clubs or Yes 02/26/2021 organizations such as presybeterian groups, unions, fraternal or athletic groups, or [...] Laboratory Medicine Debbie Ivey M.D. [address] [place] [phone] 04/13/2022 Office Visit Oncology Walter Barnhart M.D., Ph.D. [address] [place] [phone] documented as of this encounter Procedures Procedure [...] City/State/ZIP Code Phon e Number [facility] - [address] [place] [address] [facility] [place] [address] [facility] [address] [facility] Type and Screen (with reflex Antibody ID) [...] City/State/ZIP Code Phon e Number [facility] - [address] [place], [place] [address] [facility] [place] [address] [facility] [address] (ABNORMAL) Basic Metabolic [...] 02/11/2021 DTL Black/ mL/min/BSA 10:18 AM CDT Danish Comment: ----ADDITIONAL INFORMATION---- Estimated GFR calculated using [...] M.D. LAB BLOOD ADD-ON Performing Organization Address City/[facility] [place]/[facility] Phon e Number [facility] - 200 [place], [place] [address] [place] [address] [place] [address] CBC without Differential (02/11/2021 9:12 AM [...] M.D. LAB BLOOD ADD-ON Performing Organization Address City/State/[facility] Code Phon e Number [facility] - 200 [place], [place] [address] [place] [address] [place] [address] Albumin (02/11/2021 9:12 AM CDT) athologist Signature Albumin, S 4.6 3.5 - 5.0 02/11/2021 DTL g/dL 10:18 AM CDT Specimen Anatomical Collection Method Collection Time Receive d Time (Source) Location / / Volume Laterality Blood (Blood, 02/11/2021 9:12 AM 02/12/20 9:50 Venous) CDT AM CDT Denisha Oviedo M.D. LAB BLOOD ADD-ON Performing Organization Address City/State/ZIP Code Phon e Number [facility] - [address] [place], [place] [address] [facility] [address] [facility] [address] (ABNORMAL) Cancer Antigen 125 (CA 125) (02/11/2021 9:12 AM CDT) athologist Signature Cancer Ag 125 2428 (H) <46 U/mL 02/11/2021 [facility] (CA 125), S 1:16 PM CDT Comment: ----ADDITIONAL INFORMATION---- The testing method is an electrochemilum inescence assay manufactured by [employer] and performed on the Michela [...] M.D. LAB BLOOD ADD-ON Performing Organization Address City/[facility] Phon e Number [facility] [address] [place], [place] [address] [facility] [place] [address] Laboratory Medicine and Pathology [address] [place] documented in this encounter Visit Diagnoses Diagnosis Tumor Ovary Uncertain Behavior Bilateral Peritoneal Carcinomatosis (HCC) Abnormal Computed Tomography Pelvis Mass Adnexal documented in this encounter
--- OUTSIDE RECORDS SUMMARY | 2022-03-28 16:32 | XMS_ITS | Encounter Summary ---
:1975 Author Organization [facility] Address [address] [place] [address] Care Team Providers Name Role Phone Unavailable Primary Care Provider Unavailable Encounter Details Date Type Department Care Team Description 02/21/2021 Admin Visit Department of Oncology in [place], [place] [address] [place] [phone] Social History Tobacco Use Types Packs/Day [...] Ivey M.D. [address] [place] [address] 04/13/2022 Office Visit Oncology Walter Barnhart M.D., Ph.D. [address] [place] [phone] documented as of this encounter Visit Diagnoses Not on filedocumented in this encounter
--- OUTSIDE RECORDS SUMMARY | 2022-03-28 16:32 | XMS_ITS | Encounter Summary ---
:1975 Author Organization [facility] Address [address] [place] [address] Care Team Providers Name Role Phone Unavailable Primary Care Provider Unavailable Encounter Details Date Type Department Care Team Description 02/17/2021 Documentation RST CHILD LIFE Bronwyn Parson, CCLS [address] [place], [place] [phone] Social History Tobacco Use [...] or slept in a mcfp (including now)? Sex Assigned at Date Recorded [...] interaction. Child Life can be reached at [phone] should additional needs arise. Visit Type: Phone consultation, resources discussed Child Life Time Spent (Min): 30 documented in this encounter Plan of Treatment Upcoming Encounters Date Type Specialty Care Team Description 04/11/2022 Clinical Communication Admitting/Central Scheduling 04/13/2022 Appointment Laboratory Medicine Debbie Ivey M.D. [address] [place] [address] 04/13/2022 Office Visit Oncology Walter Barnhart M.D., Ph.D. [address] [place] [address] documented as of this encounter Visit Diagnoses Not on filedocumented in this encounter
--- OUTSIDE RECORDS SUMMARY | 2022-03-28 16:32 | XMS_ITS | Encounter Summary ---
:1975 Author Organization [facility] Address [address] [place] [address] Care Team Providers Name Role Phone Unavailable Primary Care Provider Unavailable Encounter Details Date Type Department Care Team Description 02/17/2021 Clinical Communication Department of Amber Nguyen , Obstetrics and R.N. Gynecology in [address] [place] [address] [place] [phone] [place], [place] [phone] (Work) [phone] Social History Tobacco Use Types Packs/Day Years [...] Miscellaneous Notes Telephone Encounter - Amber Nguyen RChapincitoNChapincito - 02/17/2021 8:47 AM CDT I contacted [...] Laboratory Medicine Debbie Ivey M.D. [address] [place] [phone] 04/13/2022 Office Visit Oncology Walter Barnhart M.D., Ph.D. [address] [place] [phone] documented as of this encounter Visit Diagnoses Not on filedocumented in this encounter
--- OUTSIDE RECORDS SUMMARY | 2022-03-28 16:32 | XMS_ITS | Encounter Summary ---
:1975 Author Organization [facility] Address [address] [place] [address] Care Team Providers Name Role Phone Unavailable Primary Care Provider Unavailable Reason for Referral MRI/CAT/PET Scan (Routine) - Closed Specialty Diagnoses / Procedures Referred By Contact Refer red To Contact Radiology Diagnoses Tumor Ovary Uncertain Behavior Bilateral Peritoneal Carcinomatosis (HCC) Abnormal Computed Tomography Pelvis Denisha Oviedo M.D. [facility] Procedures CT Chest without IV Contrast [address] [place] [phone] Referral ID Status Reason Start Date Expiration Date Visits Requ ested Visits Authorized [id number] Closed 02/08/2021 02/08/2022 1 1 Encounter Details Date Type Department Care Team Description 02/08/2021 Orders Only Department of Denisha Oviedo Tumor Ovar y Uncertain Behavior Bilateral (Primary Dx); Obstetrics and Kelly Box Peritoneal Carcinomatosis (HCC); Gynecology in [address] [place] [address] Abnormal Computed Tomography Pelvis [place], [place] [address] [place] [phone] [place], [place] [phone] (Work) [phone] Social History Tobacco Use Types Packs/Day Years [...] Laboratory Medicine Debbie Ivey M.D. [address] [place] [phone] 04/13/2022 Office Visit Oncology Walter Barnhart M.D., Ph.D. [address] [place] [phone] documented as of this encounter Results CT [...] 02/11/2021 DTL Black/ mL/min/BSA 10:18 AM CDT Luxembourger Comment: ----ADDITIONAL INFORMATION---- Estimated GFR calculated using [...] [facility] - [address] [place] [address] [place] [address] [facility] 200 [facility] CBC without Differential (02/11/2021 9:12 [...] M.D. LAB BLOOD ADD-ON Performing Organization Address [facility] Phon e Number [facility] - 200 [place], [place] [address] [place] [address] Laboratories-[address] Albumin (02/11/2021 9:12 AM CDT) athologist Signature Albumin, S 4.6 3.5 - 5.0 02/11/2021 DTL g/dL 10:18 AM CDT Specimen Anatomical Collection Method Collection Time Receive d Time (Source) Location / / Volume Laterality Blood (Blood, 02/11/2021 9:12 AM 02/12/20 9:50 Venous) CDT AM CDT Denisha Oviedo M.D. LAB BLOOD ADD-ON Performing Organization Address [facility] Phon e Number [facility] - 200 [place], [place] [address] [place] [address] (ABNORMAL) Cancer Antigen 125 (CA 125) (02/11/2021 9:12 AM CDT) athologist [facility] Cancer Ag 125 2428 (H) <46 U/mL [...] e Number [facility] [address] [place] [address] [place] [address] Laboratory Medicine and Pathology [address] 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
--- OUTSIDE RECORDS SUMMARY | 2022-03-28 16:32 | XMS_ITS | Encounter Summary ---
:1975 Author Organization [facility] Address [address] [place] [address] Care Team Providers Name Role Phone Unavailable Primary Care Provider Unavailable Encounter Details Date Type Department Care Team Description 02/23/2021 Education Department of Patient Osbaldo Barnhart M.D., Ph.D. [address] [place] [phone] Malignant Neoplasm Of Education in Candie Oshea M.Ed. Ovary Laterality [place], [place] Unknown (HCC) [address] [place] [phone] Social History Tobacco Use Types Packs/Day Years [...] Laboratory Medicine Debbie Ivey M.D. [address] [place] [phone] 04/13/2022 Office Visit Oncology Walter Barnhart M.D., Ph.D. 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
--- OUTSIDE RECORDS SUMMARY | 2022-03-28 16:32 | XMS_ITS | Encounter Summary ---
:1975 Author Organization [facility] Address [address] [place] [address] Care Team Providers Name Role Phone Unavailable Primary Care Provider Unavailable Encounter Details Date Type Department Care Team Description 02/08/2021 [facility] Tamanna Cheng M alignant Neoplasm AND CLINICS M.D. Of Ovary Laterality [address] 2000 [facility] Unknown (HCC) [place] [address] [place], [place] (Primary Dx) [phone] [address] Social History Tobacco Use Types Packs/Day Years [...] Laboratory Medicine Debbie Ivey M.D. [address] [place] [phone] 04/13/2022 Office Visit Oncology Walter Barnhart M.D., Ph.D. 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
--- OUTSIDE RECORDS SUMMARY | 2022-03-28 16:32 | XMS_ITS | Encounter Summary ---
:1975 Author Organization [facility] Address [address] [place] [address] Care Team Providers Name Role Phone Unavailable Primary Care Provider Unavailable Reason for Visit Reason Comments Follow-up Encounter Details Date Type Department Care Team Description 02/17/2021 Clinical Communication Department of Fernando Helm ow- Radiology, Jason Chery M.D. [facility], in [address] [place] [phone] [place] [address] [place] [address] Social History Tobacco Use Types [...] Laboratory Medicine Debbie Ivey M.D. [address] [place] [phone] 04/13/2022 Office Visit Oncology Walter Barnhart M.D., Ph.D. [address] [place] [phone] documented as of this encounter Visit Diagnoses Not on filedocumented in this encounter
--- OUTSIDE RECORDS SUMMARY | 2022-03-28 16:32 | XMS_ITS | Encounter Summary ---
:1975 Author Organization [facility] Address [address] [place] [address] Care Team Providers Name Role Phone Unavailable Primary Care Provider Unavailable Reason for Visit Reason Comments Appointment Encounter Details Date Type Department Care Team Description 02/17/2021 Clinical Communication Department of Walter Barnhart, Appointment Oncology in M.D., Ph.D. [place], [place] [address] [facility] [address] [place] [phone] Social History Tobacco Use Types Packs/Day Years [...] Is this ok? 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 [address] [place] [phone] 04/13/2022 Office Visit Oncology Walter Barnhart M.D., Ph.D. [address] [place] [address] documented as of this encounter Visit Diagnoses Not on filedocumented in this encounter
--- OUTSIDE RECORDS SUMMARY | 2022-03-28 16:33 | XMS_ITS ---
:1975 Author Name Tim[facility] Care Team Providers Name Role Phone Abdelrahman Timbo Unavailable Unavailable PROBLEMS Type Condition ICD9-CM Code [id number] Onset Condition SNOMED Code Code Dates Status Problem Perimenopause N95.1 Active Problem Perimenopausal N95.1 Active Problem Perimenopausal N95.1 Active 82071 3006 vasomotor symptoms Problem Binge eating F50.81 Active [id number] 05 disorder ALLERGIES No Known Allergies ENCOUNTERS Encounter Location Date Diagnosis [facility] [address] Dec, [place], [place] [phone] [facility] [place] [address] obopay [facility] Dec, [address] [phone] [place] [address] [address]ay [facility] Jun, [address] [address] [facility] [address] Feb, [place], [place] [phone] [facility] [address] Dec, [place], [place] [phone] [facility] [address] Jun, [place], [place] [phone] [facility] [address] Jun, Perim enopausal vasomotor [facility] 120 symptoms N95.1 a nd [place], [place] Encounter for sc reening [phone] for lipid disord er Z13.220 [facility] [address] Jun, Perim enopausal N95.1 and [place] [address] Hot flashes R23. 2 [place] [address] [facility] [address] Jun, Perime nopause N95.1 [place], [place] [phone] [facility] [address] Apr, [place] [address] [place] [address] [facility] [address] October, [place], [place] [phone] [facility] [address] Apr, [place] [phone] [facility] [address] Mar, [place] [phone] [facility] [address] Mar, [place] [phone] [facility] [address] Mar, [place], [place] [phone] [facility] [address] Mar, A nnual physical exam for [place] [address] Z00.00 ; Cervica l cancer [place], [place] screening Z12.4 ; Breast [phone] cancer screening by mammogram Z12.31 ; Perimenopause N9 5.1 and Binge eating dis order F50.81 [facility] [address] Jul, Perim enopausal vasomotor [place] [address] symptoms N95.1 a nd Breast [place], [place] cancer screening Z12.31 [phone] IMMUNIZATIONS No Known Immunizations SOCIAL HISTORY Qualifiers [...] 2019 HPV HIGH-RISK TYPES Mar 19, 2018 GONADOTROPIN (FSH) Jul 03, 2019 CYTOPATH, C/V, THIN LAYER Mar 19, 2018 ASSAY OF ESTRADIOL Jul 03, 2019 RESULTS Name Result Date Reference Range ESTRADIOL 2019-07-03 ESTRADIOL 115 FSH 2019-07-03 FSH 4.9 MAMMOGRAM, SCREENING 2018-04-10 THINPREP PAP AND HPV mRNA E6/E7 REFLEX HPV 03-19 16,18/45 CLINICAL INFORMATION: COMMENT FUR FEEDER: HPV mRNA E6/E7 Not Detected Not Detected INTERPRETATION/RESULT: LMP: PREV. BX: N/A PREV. 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 FUR FEEDER: SOURCE: [employer] STATEMENT OF ADEQUACY: REASON FOR VISIT Insurance Providers [facility] Health Member Patient Patient Patient Patient Patient Subscriber Subscriber Subscriber Group Insurance Plan Plan Plan Plan ID Relationship Address Phone Name Date of ID Name Date of No Type Insurance Insurance Insurance Coverage to Subscriber Address Phone Name Dates [place] [address] [place] [id number] Group [id number] [place] [address] Blue Cross [address] Blue Cross self [place] [id number] [id number] and Blue STARFIEL [address] [facility] [address] [place] MEDICAL (GENERAL) HISTORY Type Description Date Medical History Bladder Infections Surgical History Bladder Sling 2010 Surgical History Uterine Ablation 2010
[2022-03-28 17:15] LABS: Basophils Percent Auto 0.6 % (0.0-3.0); Eosinophils Percent Auto 1.2 % (0.0-7.0); Lymphocytes Percent Auto 48.5 % (20-44); Mean Corpuscular HGB Conc 33 gm/dL (32-36); Mean Corpuscular Hemoglobin 33 pg (26-34); Mean Corpuscular Volume 100 fL (80-100); Monocytes Percent Auto 10.1 % (0.0-11.0); Neutrophils Percent Auto 39.6 % (42.0-72.0); Platelet Count* 247 K/uL (140-440); Red Blood Count 3.91 m/uL (4.00-5.20); White Blood Count* 3.28 K/uL (4.50-11.00)
[2022-03-28 17:21] LABS: Slide Review Reflex No
[2022-03-28 17:23] LABS: Creatinine* 0.6 mg/dL (0.5-1.5); Estimated Glomerular Filt Rate 112 ml/min
[2022-03-28 17:24] LABS: Alanine Aminotransferase* 26 U/L (4-35); Aspartate Amino Transferase* 55 U/L (12-35); Bilirubin Total* 1.5 mg/dL (0.1-1.5)
== END 2022-03-28 16:13 | disposition home or self-care (01) ==
LOC: LAB 16:12
PROVIDERS: Visit Provider Internal Medicine
DX: C56.9 Malignant neoplasm of unspecified ovary (principal)
CPT/HCPCS: 36415; 82247; 82565; 84450; 84460; 85025

== ENCOUNTER 2022-04-04 13:53 | Outpatient (REF) | payer OTHER, SELFPAY ==
--- OUTSIDE RECORDS SUMMARY | 2022-04-04 14:11 | XMS_ITS | Encounter Summary ---
:1975 Author Organization [facility] Address [address] [place] [address] Care Team Providers Name Role Phone Elsewhere, Pcp Primary Care Provider Unavailable Reason for Referral MRI/CAT/PET Scan (Routine) - Closed Specialty Diagnoses / Procedures Referred By Contact Refer red To Contact Radiology Diagnoses Malignant Neoplasm Of Ovary Laterality Unknown (HCC) Walter Barnhart M.D., [facility] Procedures CT Abdomen Pelvis with IV Contrast CT Abdomen Pelvis without and with IV Contrast ME CT ABD&PELVIS WO/W CNTRST ME CT ABD&PELVIS W CNTRST Ph.D. [address] [place] [phone] Referral ID Status Reason Start Date Expiration Date Visits Requ ested Visits Authorized [id number] Closed 12/22/2021 06/23/2022 1 1 MRI/CAT/PET Scan (Routine) - Closed Specialty Diagnoses / Procedures Referred By Contact Refer red To Contact Radiology Diagnoses Malignant Neoplasm Of Ovary Laterality Unknown (HCC) Walter Barnhart M.D., [facility] Procedures CT Chest with IV Contrast ME CT THORAX W CNTRST Ph.D. [address] [place] [phone] Referral ID Status Reason Start Date Expiration Date Visits Requ ested Visits Authorized [id number] Closed 12/22/2021 06/23/2022 1 1 Reason for Visit MRI/CAT/PET Scan (Routine) - Closed Specialty Diagnoses / Procedures Referred By Contact Refer red To Contact Radiology Diagnoses Malignant Neoplasm Of Ovary Laterality Unknown (HCC) Walter Barnhart M.D., [facility] Procedures CT Chest with IV Contrast ME CT THORAX W CNTRST Ph.D. [address] [place] [phone] Referral ID Status Reason Start Date Expiration Date Visits Requ ested Visits Authorized [id number] Closed 12/22/2021 06/23/2022 1 1 Encounter Details Date Type Department Care Team Description 01/03/2022 Hospital Encounter Department of Walter Barnhart Malign ant Neoplasm Radiology, Angel De La Cruz M.D., Ph.D. Of Ovary Laterality [facility], in [address] [place] [address] Unknown (HCC) [facility] [phone] [place] [address] [place] (Work) [phone] Social History Tobacco Use Types Packs/Day Years [...] mouth 60 capsule 11 0 09/12/2021 daily. [id number]-[id number]-c Take 1 tablet by 0 isra 100 [...] Description 04/11/2022 Clinical Communication Admitting/Central Scheduling 04/13/2022 Office Visit Oncology Walter Barnhart M.D., Ph.D. [address] [place] [phone] documented as of this encounter Procedures Procedure [...] by the treating provider and reviewed by th e radiologist to increase sensitivity for detection [...] by the treating provider and reviewed by [facility] radiologist to increase sensitivity for detection [...] oral, Once in imaging, contrast, Starting on Tu01/03/22 at 1013, For 1 dose, Imaging Protocol [...] Orders documented in this encounter Care Teams Underground Repairer Relationship Specialty Start Date End Date Elsewhere, Pcp PCP - General Internal Medicine 07/08/21 documented as of this encounter
--- OUTSIDE RECORDS SUMMARY | 2022-04-04 14:11 | XMS_ITS | Encounter Summary ---
:1975 Author Organization [facility] Address [address] [place] [address] Care Team Providers Name Role Phone Elsewhere, Pcp Primary Care Provider Unavailable Reason for Visit Reason Comments .labs Encounter Details Date Type Department Care Team Description 03/29/2022 Clinical Communication Department of Oncology Malathi Bear .labs in [facility] [phone] [address] [facility] (Work) [place] [address] Social History Tobacco Use Types Packs/Day Years [...] Notes Telephone Encounter - Shamika Cavanaugh - 03/29/2022 10:23 AM CDT Labs have been entered and are ready for review. Telephone Encounter - Sherin Salgado - 03/29/2022 8:50 AM CDT Labs drawn on 03/28/22 are here. Labs are scanned into myVBO from an outside facility. They will be available through document viewer and should be available in approximately 5 minutes. Thank you, Sherin RST [facility] POD 1 documented in this encounter Plan of Treatment Upcoming Encounters Date Type Specialty Care Team Description 04/11/2022 Clinical Communication Admitting/Central Scheduling 04/13/2022 Office Visit Oncology Walter Barnhart M.D., Ph.D. [address] [place] [phone] documented as of this encounter Procedures Procedure Name Priority Date/Time Associated Diagnosis Comme nts HEMATOLOGY/ONCOLOGY Routine 03/28/2022 10:28 AM R esults for this - BLOOD, EXTERNAL CDT procedure are in LAB RESULTS the results section. documented in this encounter Results (ABNORMAL) Hematology/Oncology - Blood, External Lab Results (03/28/2022 10:28 AM CDT) Analysis Performed At Patho logist Time Signature EXT Hemoglobin 13.0 12.0 - OTHER 16.0 (SPECIFY IN LASER BEAM MACHINE OPERATOR) EXT Leukocytes 3.28 (A) 4.50 - OTHER 11.00 (SPECIFY IN LASER BEAM MACHINE OPERATOR) EXT Absolute 1.30 (A) 1.7 - 7.0 OTHER Neutrophil (SPECIFY IN Count LASER BEAM MACHINE OPERATOR) EXT Platelet 247 140 - 440 OTHER Count (SPECIFY IN LASER BEAM MACHINE OPERATOR) EXT AST 55 (A) 12 - 35 OTHER (SPECIFY IN LASER BEAM MACHINE OPERATOR) EXT ALT 26 4 - 35 OTHER (SPECIFY IN LASER BEAM MACHINE OPERATOR) EXT Bilirubin, 1.5 0.1 - 1.5 OTHER Total mg/dL (SPECIFY IN LASER BEAM MACHINE OPERATOR) EXT Creatinine 0.6 0.5 - 1.5 OTHER mg/dL (SPECIFY IN LASER BEAM MACHINE OPERATOR) EXT eGFR-Non 112 OTHER Black/ (SPECIFY IN Azerbaijani LASER BEAM MACHINE OPERATOR) Specimen (Source) Anatomical Collection Method Collection Time Re ceived Time Location / / Volume Laterality Blood 03/28/2022 10:28 AM CDT Historical Provider LAB BLOOD NON ADD-ON Performing Organization Address City/State/ZIP Code Phon e Number OTHER (SPECIFY IN LASER BEAM MACHINE OPERATOR) OTHER (SPECIFY IN LASER BEAM MACHINE OPERATOR) N/A documented in this encounter Visit Diagnoses Not on filedocumented in this encounter Care Teams Systems Security Analyst Relationship Specialty Start Date End Date Elsewhere, Pcp PCP - General Internal Medicine 07/08/21 documented as of this encounter
--- OUTSIDE RECORDS SUMMARY | 2022-04-04 14:11 | XMS_ITS | Encounter Summary ---
:1975 Author Organization [facility] Address [address] [place] [address] Care Team Providers Name Role Phone Elsewhere, Pcp Primary Care Provider Unavailable Encounter Details Date Type Department Care Team Description 02/07/2022 Specialty Pharmacy [facility] Michelle Mcclain, [address] Dorothy Briscoe Pharm.D., [place] [address] [address] [facility] [phone] [place] [phone] Social History Tobacco Use Types Packs/Day Years [...] were asked via phone by a patient morning caregiver. (reviewed at or around patient requested refill ) HISTORY OF PRESENT ILLNESS Ms. Angelica Yang is a 46 y.o. female, who is followed by the specialty pharmacy service for Zejula (niraparib) . (Indication: ovarian cancer) Patient reported reassessment questions and responses: Informant: patient How comfortable are you understanding the medication(s) you receive from [facility]?: Very Comfortable Side Effects Requiring Attention: [...] above and reviewing refill history in the [facility] Pharm[facility] record. The patient/caregiver reports [...] refer to the oncology provider's assessment/plan within [facility] on the following date: 01/03/2022. [...] Office Visit Oncology Walter Barnhart M.D., Ph.D. [address] [place] [phone] documented as of this encounter Visit Diagnoses Not on filedocumented in this encounter Care Teams Industrial Designer Relationship Specialty Start Date End Date Elsewhere, Pcp PCP - General Internal Medicine 07/08/21 documented as of this encounter
--- OUTSIDE RECORDS SUMMARY | 2022-04-04 14:11 | XMS_ITS | Encounter Summary ---
:1975 Author Organization [facility] Address [address] [place] [address] Care Team Providers Name Role Phone Elsewhere, Pcp Primary Care Provider Unavailable Reason for Referral Outpatient (Routine) - Authorized Specialty Diagnoses / Procedures Referred By Contact Refer red To Contact Oncology Debbie Ivey M. D. [address] [phone] Referral ID Status Reason Start Date Expiration Date Visits V isits Requested Authorized [id number] Authorized 01/03/2022 01/03/2023 1 1 Reason for Visit Outpatient (Routine) - Closed Specialty Diagnoses / Procedures Referred By Contact Vandana red To Contact Oncology Walter Barnhart M. D., Ph.D. [address] [phone] Referral ID Status Reason Start Date Expiration Date Visits Requ ested Visits Authorized [id number] Closed 11/10/2021 11/10/2022 1 1 Encounter Details Date Type Department Care Team Description 01/03/2022 Office Visit Department of Marychuy Kapoor Malignan t Neoplasm Of Oncology in EPIC PROFESSIONAL, C.N.P., Ovary Laterali ty [place], [place] M.S.N. Unknown (HCC) (Primary [address] Dx) [place] [phone] Social History Tobacco Use Types Packs/Day Years [...] in 2020; [facility]CAnalysis with My[facility] panel from [facility]. 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 Somatic testing: HRD Positive, BRCA negative 02/03/2021 [...] Chemotherapy CARBOplatin AUC 6 / PACLitaxel ( SUPERVISOR SOLDERING ) Start Date: 02/25/2021 Completed 3 cycles [...] Chemotherapy CARBOplatin AUC 6 / PACLitaxel ( SUPERVISOR SOLDERING ) Start Date: 02/25/2021 Adjuvant chemotherapy, cycles [...] can be placed on the vaccine trial (WD0486.01 (ECTx) AC4029.01; A phase I trial evaluating a mutanome-directed [...] evidence of disease. Regarding her participation in YE8586.01, the phase I trial looking at viral [...] Communication Admitting/Central Scheduling 04/13/2022 Office Visit Oncology BlockWalter M.D., Ph.D. [address] [place] [address] Scheduled Referrals Name Type Priority Associated Diagnoses Order S [facility] Oncology office Outpatient Referral Routine Expec jace: visit (clinic) 04/05/2022 Surveillance; SUPERVISOR SOLDERING (Approxima te), Expires: 04/05/2023 documented as of [...] Cancer Ag 125 7 <46 U/mL 01/04/2022 [facility] (CA 125), S 12:19 PM CDT [...] Laterality Blood (Blood, 01/03/2022 9:20 AM 01/05/20 22 Venous) CDT 10:58 AM CDT Marychuy Kapoor APRN C.N.P., M.S.N. LAB BLOOD ADD-ON Performing Organization Address City/State/ZIP Code Phon e Number [facility] [address] [place], [place] [address] [facility] [place] [address] Laboratory Medicine and Pathology [address] 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
--- OUTSIDE RECORDS SUMMARY | 2022-04-04 14:11 | XMS_ITS | Encounter Summary ---
:1975 Author Organization [facility] Address [address] [place] [address] Care Team Providers Name Role Phone Elsewhere, Pcp Primary Care Provider Unavailable Encounter Details Date Type Department Care Team Description 11/11/2021 Orders Only Pharmacy Prior Auth Paula Khan [phone] Social History Tobacco Use Types Packs/Day Years [...] Oncology Walter Barnhart M.D., Ph.D. [address] [place] [phone] documented as of this encounter Visit Diagnoses Not on filedocumented in this encounter Care Teams Leather Shaver Relationship Specialty Start Date End Date Elsewhere, Pcp PCP - General Internal Medicine 07/08/21 documented as of this encounter
--- OUTSIDE RECORDS SUMMARY | 2022-04-04 14:11 | XMS_ITS | Encounter Summary ---
:1975 Author Organization [facility] Address [address] [place] [address] Care Team Providers Name Role Phone Elsewhere, Pcp Primary Care Provider Unavailable Reason for Visit Reason Comments Updated Genetic Test Results Encounter Details Date Type Department Care Team Description 02/06/2022 Documentation Department of Medical Calvin Alba Updated Genetic Test Genetics in [phone] Results [place], [place] (Work) [address] [place] [address] Social History Tobacco Use Types Packs/Day Years [...] documented as of this encounter Progress Notes Parth Deysi M - 02/06/2022 3:07 PM CDT Images from the original note were not included. We received an amended report for Angelica's genetic testing. Angelica was seen in the Department of Clinical Genomics on 03/02/2021 by Claudette Bansal CGC due to their personal diagnosis of cancer. They elected to pursue the [facility]CAnalysis with [facility] Cancer Panel through [facility]. 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 [facility] issued a reclassification report noting the VUS in APC has now been downgraded to a variant of no clinical significance. Therefore, it is unlikely that this variant causes disease. The recommended care plan from the patient's initial result note remains applicable. This information was communicated to the patient via the patient online services portal by our genetic counseling assistant professor of geography. documented in this encounter Plan of Treatment Upcoming Encounters Date Type Specialty Care Team Description 04/11/2022 Clinical Communication Admitting/Central Scheduling 04/13/2022 Office Visit Oncology Walter Barnhart M.D., Ph.D. [address] [place] [phone] documented as of this encounter Visit Diagnoses Not on filedocumented in this encounter Care Teams Crop Grain Or Livestock Farmer Relationship Specialty Start Date End Date Elsewhere, Pcp PCP - General Internal Medicine 07/08/21 documented as of this encounter
--- OUTSIDE RECORDS SUMMARY | 2022-04-04 14:11 | XMS_ITS | Encounter Summary ---
:1975 Author Organization [facility] Address [address] [place] [address] Care Team Providers Name Role Phone Elsewhere, Pcp Primary Care Provider Unavailable Encounter Details Date Type Department Care Team Description 01/02/2022 Clinical Communication Visit Review in [place], [place] [address] [place], [place] [phone] Social History Tobacco Use Types Packs/Day Years [...] Oncology Walter Barnhart M.D., Ph.D. [address] [place] [phone] documented as of this encounter Visit Diagnoses Not on filedocumented in this encounter Care Teams Solar Sales Relationship Specialty Start Date End Date Elsewhere, Pcp PCP - General Internal Medicine 07/08/21 documented as of this encounter
--- OUTSIDE RECORDS SUMMARY | 2022-04-04 14:11 | XMS_ITS | Encounter Summary ---
:1975 Author Organization [facility] Address [address] [place] [address] Care Team Providers Name Role Phone Elsewhere, Pcp Primary Care Provider Unavailable Reason for Visit Reason Comments Alert Labs Encounter Details Date Type Department Care Team Description 03/03/2022 Clinical Communication Department of Oncology Malathi Bear, Alert Labs in [facility] [phone] [address] [facility] (Work) [place] [address] Social History Tobacco Use Types Packs/Day Years [...] Visit Oncology Walter Barnhart M.D., Ph.D. [address] [place] [address] [phone] documented as of this encounter Procedures Procedure [...] - 1.5 OTHER (SPECIFY Total mg/dL IN FLYING II INSTRUCTOR) Specimen (Source) Anatomical Collection Method Collection Time Re ceived Time Location / / Volume Laterality Blood 03/03/2022 1:45 PM CDT Historical Provider LAB BLOOD NON ADD-ON Performing Organization Address City/State/ZIP Code Phon e Number OTHER (SPECIFY IN FLYING II INSTRUCTOR) OTHER (SPECIFY IN FLYING II INSTRUCTOR) N/A Hematology/Oncology - Blood, External Lab Results (03/03/2022 1:45 PM CDT) P athologist Signature EXT Cancer 6 OTHER (SPECIFY Antigen 125 (Ca IN FLYING II INSTRUCTOR) 125) Comment: <=38 Specimen (Source) Anatomical Collection Method Collection Time Re ceived Time Location / / Volume Laterality Blood 03/03/2022 1:45 PM CDT Narrative This result has an attachment that is no t available. Historical Provider LAB BLOOD NON ADD-ON Performing Organization Address City/State/ZIP Code Phon e Number OTHER (SPECIFY IN FLYING II INSTRUCTOR) OTHER (SPECIFY IN FLYING II INSTRUCTOR) N/A (ABNORMAL) Hematology/Oncology - Blood, External Lab Results (03/03/2022 1:45 PM CDT) Analysis Performed At [facility] Time Signature EXT Hemoglobin 13.0 12.0 - OTHER 16.0 (SPECIFY IN FLYING II INSTRUCTOR) EXT Leukocytes 3.10 (A) 4.50 - OTHER 11.00 (SPECIFY IN FLYING II INSTRUCTOR) EXT Absolute 0.90 (A) 1.7 - 7.0 OTHER Neutrophil (SPECIFY IN Count FLYING II INSTRUCTOR) EXT Platelet 263 140 - 440 OTHER Count (SPECIFY IN FLYING II INSTRUCTOR) EXT AST 53 (A) 12 - 35 OTHER (SPECIFY IN FLYING II INSTRUCTOR) EXT ALT 27 4 - 35 OTHER (SPECIFY IN FLYING II INSTRUCTOR) EXT Creatinine 0.6 0.5 - 1.5 OTHER mg/dL (SPECIFY IN FLYING II INSTRUCTOR) EXT eGFR-Non 112 OTHER Black/ (SPECIFY IN Kenyan FLYING II INSTRUCTOR) Specimen (Source) Anatomical Collection Method Collection Time Re ceived Time Location / / Volume Laterality Blood 03/03/2022 1:45 PM CDT Narrative This result has an attachment that is no t available. Historical Provider LAB BLOOD NON ADD-ON Performing Organization Address City/State/ZIP Code Phon e Number OTHER (SPECIFY IN FLYING II INSTRUCTOR) OTHER (SPECIFY IN FLYING II INSTRUCTOR) N/A documented in this encounter Visit Diagnoses Not on filedocumented in this encounter Care Teams Home Comfort Advisor Relationship Specialty Start Date End Date Elsewhere, Pcp PCP - General Internal Medicine 07/08/21 documented as of this encounter
--- OUTSIDE RECORDS SUMMARY | 2022-04-04 14:11 | XMS_ITS | Encounter Summary ---
:1975 Author Organization [facility] Address [address] [place] [address] Care Team Providers Name Role Phone Elsewhere, Pcp Primary Care Provider Unavailable Reason for Visit Reason Comments Labs Only Encounter Details Date Type Department Care Team Description 12/13/2021 Clinical Communication Department of Oncology Malathi Bear, Labs Only in [facility] [phone] [address] [facility] (Work) [place] [address] Social History Tobacco Use Types Packs/Day Years [...] Visit Oncology Walter Barnhart M.D., Ph.D. [address] [place] [address] [phone] documented as of this encounter Procedures Procedure Name Priority Date/Time Associated Diagnosis Comme nts HEMATOLOGY/ONCOLOGY Routine 12/06/2021 1:39 PM Re sults for this - BLOOD, EXTERNAL CDT procedure are in LAB RESULTS the results section. documented in this encounter Results (ABNORMAL) Hematology/Oncology - Blood, External Lab Results (12/06/2021 1:39 PM CDT) P athologist Signature EXT Hemoglobin 14.1 12.0 - OTHER (SPECIFY 16.0 IN NATURAL GAS SHOTHOLE DRILLER) EXT Leukocytes 4.78 4.50 - OTHER (SPECIFY 11.00 IN NATURAL GAS SHOTHOLE DRILLER) EXT Absolute 2.42 1.7 - 7.0 OTHER (SPECIFY Neutrophil IN NATURAL GAS SHOTHOLE DRILLER) Count EXT Platelet 268 140 - 440 OTHER (SPECIFY Count IN NATURAL GAS SHOTHOLE DRILLER) EXT AST 50 (A) 12 - 35 OTHER (SPECIFY IN NATURAL GAS SHOTHOLE DRILLER) EXT ALT 24 4 - 35 OTHER (SPECIFY IN NATURAL GAS SHOTHOLE DRILLER) EXT Bilirubin, 1.0 0.1 - 1.5 OTHER (SPECIFY Total mg/dL IN NATURAL GAS SHOTHOLE DRILLER) EXT Cancer 6 OTHER (SPECIFY Antigen 125 (Ca IN NATURAL GAS SHOTHOLE DRILLER) 125) Comment: <=38 EXT Creatinine 0.7 0.5 - 1.5 mg/dL OTHER (SP ECIFY IN NATURAL GAS SHOTHOLE DRILLER) Specimen (Source) Anatomical Collection Method Collection Time Re ceived Time Location / / Volume Laterality Blood 12/06/2021 1:39 PM CDT Narrative This result has an attachment that is no t available. Historical Provider LAB BLOOD NON ADD-ON Performing Organization Address City/State/ZIP Code Phon e Number OTHER (SPECIFY IN NATURAL GAS SHOTHOLE DRILLER) OTHER (SPECIFY IN NATURAL GAS SHOTHOLE DRILLER) N/A documented in this encounter Visit Diagnoses Not on filedocumented in this encounter Care Teams Oleo Hasher And Renderer Relationship Specialty Start Date End Date Elsewhere, Pcp PCP - General Internal Medicine 07/08/21 documented as of this encounter
--- OUTSIDE RECORDS SUMMARY | 2022-04-04 14:11 | XMS_ITS | Encounter Summary ---
:1975 Author Organization [facility] Address [address] [place] [address] Care Team Providers Name Role Phone Elsewhere, Pcp Primary Care Provider Unavailable Encounter Details Date Type Department Care Team Description 11/09/2021 Clinical Communication Visit Review in [place], [place] [address] [place], [place] [phone] Social History Tobacco Use Types Packs/Day Years [...] Visit Oncology Walter Barnhart M.D., Ph.D. [address] [place] [phone] documented as of this encounter Visit Diagnoses Not on filedocumented in this encounter Care Teams Assembler Musical Instruments Relationship Specialty Start Date End Date Elsewhere, Pcp PCP - General Internal Medicine 07/08/21 documented as of this encounter
--- OUTSIDE RECORDS SUMMARY | 2022-04-04 14:11 | XMS_ITS ---
:1975 Author Organization [facility] Address [address] [place] [address] Care Team Providers Name Role Phone Elsewhere, Pcp Primary Care Provider Unavailable Active Problems Problem Noted Date Personal History Of Malignant Neoplasm Of Ovary 2020 Education Need Ostomy 05/04/2021 Obstruction Intestinal 04/25/2021 Neutropenia Drug Induced 04/07/2021 Malignant Neoplasm Of Ovary Laterality Unknown 021 Mass Ovary 02/16/2021 Current Oncology Plans CARBOplatin AUC 6 / PACLitaxel ( AUTO BODY REPAIRER FIBERGLASS )Plan Start Date:02/23/2021 Plan Provider:Walter Barnhart M.D., [...] treatments are documented for this patient in [facility]. Treatments may have been administered in another system.
--- OUTSIDE RECORDS SUMMARY | 2022-04-04 14:11 | XMS_ITS | Encounter Summary ---
:1975 Author Organization [facility] Address [address] [place] [address] Care Team Providers Name Role Phone Elsewhere, Pcp Primary Care Provider Unavailable Encounter Details Date Type Department Care Team Description 01/11/2022 Specialty Pharmacy [facility] Brunilda Tamayo, [address] Dorothy Briscoe Pharm.D., R.Ph. [place], [place] [address] [facility] [phone] [place], [place] [phone] (Wo rk) Social History Tobacco Use Types [...] asked via phone by a patient ambulatory care nurse. (reviewed at or around patient requested refill ) HISTORY OF PRESENT ILLNESS Ms. Angelica Yang is a 46 y.o. female, who is followed by the specialty pharmacy service for [facility]. (Indication: hematology/oncology) Patient reported reassessment questions and responses: Informant: patient How comfortable are you understanding the medication(s) you receive from [facility]?: Very Comfortable Side Effects Requiring Attention: no [...] reviewing refill history in the [facility] record. The patient/caregiver reports [...] Oncology Walter Barnhart M.D., Ph.D. [address] [place] [phone] documented as of this encounter Visit Diagnoses Not on filedocumented in this encounter Care Teams Youth Development Professional Relationship Specialty Start Date End Date Elsewhere, Pcp PCP - General Internal Medicine 07/08/21 documented as of this encounter
--- OUTSIDE RECORDS SUMMARY | 2022-04-04 14:11 | XMS_ITS | Clinical Summary ---
:1975 Author Organization [facility] Address [address] [place] [address] Care Team Providers Name Role Phone Elsewhere, Pcp Primary Care Provider Unavailable Source Comments Patient records contain information from all sites at [facility]. For routine questions regarding patient records, call [phone] during business hours, M-F 8:00 AM - 5:00 PM Central Time. Record requests for emergency care only can be directed to [phone] at any time.[facility] Allergies Active Allergy Reactions Severity Noted Date Comments Blood-Group Specific Other (see comments) 06/16/2009 Patient has a Substance Nonspecfic Anti body. Rh factor. Bloo d products may be delayed. Draw 2 purple top tubes and 1 red top tube for Ty pe and Screen +/or Typ e and Crossmatch orde rs. Medications Medication Sig Dispensed Refills Start Date End Date Status gjjquic-thmw-roucs-ore Take 1 tablet by 0 Active g-capryl [...] Encounters Date Type Specialty Care Team Description 04/03/2022 Clinical Oncology Malathi Bear, Communication R.N. 03/29/2022 Clinical Oncology Malathi Bear, .labs Communication R.N. 03/20/2022 Clinical Oncology Malathi Bear, Labs Only Communication R.N. 03/13/2022 [facility] Racquel murryt Neoplasm M, DIRECTOR AERONAUTICS COMMISSION, C.N.P., Of Ovary La terality M.S.N. Unknown (HCC) 03/03/2022 Clinical Oncology Bear, Malathi Daniel, Alert Labs Communication R.N. 02/08/2022 Clinical Oncology Walter Barnhart M.D., Ph.D. 02/07/2022 Specialty Pharmacy Pharmacy SarahiMichelle basurto, Pharm.D., R.Ph. 02/06/2022 Documentation Clinical Genomics Parth Deysi Updat ed Genetic M Test Results 01/11/2022 Specialty Pharmacy Pharmacy Brunilda Tamayo, Pharm.D., R.Ph. 01/03/2022 [facility] Malignant Ne oplasm M, DIRECTOR AERONAUTICS COMMISSION, C.N.P., Of Ovary La terality M.S.N. Unknown (HCC) 01/03/2022 Office [facility] Malignant Ne oplasm M, DIRECTOR AERONAUTICS COMMISSION, C.N.P., Of Ovary La terality M.S.N. Unknown (HCC) (Primary Dx) 01/03/2022 Hospital Encounter Radiology Walter Barnhart Neoplasm Kelly De La Cruz, Ph.D. Of Ovary Late rality Unknown (HCC) 01/03/2022 Hospital Encounter Laboratory BlockWalter Neoplasm Medicine Kelly De La Cruz, Ph.D. [...] Oncology Walter Barnhart M.D., Ph.D. [address] [place] [phone] Health Maintenance Due Date Last Done Comments [...] history exists Medical Devices Implanted Type Area Fitting Room Supervisor Device Identifier Shelf Model / Expiration Serial / Date Lot Clp Hrzn Ti 6 Clp Md-Lg Grn - [id number] Hardware Proficiency [id number] 07/20/2025 [id number] / Implanted: Qty: 1 on 05/09/2021 by Denisha Bliss M.D. at [facility] e.g. / pins/screws/ [id number] Procedures Procedure Name Priority Date/Time Associated Comments Diagnosis HEMATOLOGY/ONCOLOGY - Routine 03/28/2022 Result s for BLOOD, EXTERNAL LAB 10:28 AM CDT this pro cedure RESULTS are in the results section. HEMATOLOGY/ONCOLOGY - Routine 03/16/2022 Result s for [...] Blood, External Lab Results (03/28/2022 10:28 AM CDT)Only the most recent of7 resultswithin the time period is included. Analysis Performed At Patho logist Time Signature EXT Hemoglobin 13.0 12.0 - OTHER 16.0 (SPECIFY IN SKIN CARE SPECIALIST) EXT Leukocytes 3.28 (A) 4.50 - OTHER 11.00 (SPECIFY IN SKIN CARE SPECIALIST) EXT Absolute 1.30 (A) 1.7 - 7.0 OTHER Neutrophil (SPECIFY IN Count SKIN CARE SPECIALIST) EXT Platelet 247 140 - 440 OTHER Count (SPECIFY IN SKIN CARE SPECIALIST) EXT AST 55 (A) 12 - 35 OTHER (SPECIFY IN SKIN CARE SPECIALIST) EXT ALT 26 4 - 35 OTHER (SPECIFY IN SKIN CARE SPECIALIST) EXT Bilirubin, 1.5 0.1 - 1.5 OTHER Total mg/dL (SPECIFY IN SKIN CARE SPECIALIST) EXT Creatinine 0.6 0.5 - 1.5 OTHER mg/dL (SPECIFY IN SKIN CARE SPECIALIST) EXT eGFR-Non 112 OTHER Black/ (SPECIFY IN Mozambican SKIN CARE SPECIALIST) Specimen (Source) Anatomical Collection Method Collection Time Re ceived Time Location / / Volume Laterality Blood 03/28/2022 10:28 AM CDT Historical Provider LAB BLOOD NON ADD-ON Performing Organization Address City/State/ZIP Code Phon e Number OTHER (SPECIFY IN SKIN CARE SPECIALIST) OTHER (SPECIFY IN SKIN CARE SPECIALIST) N/A Interpretation of Outside CT Abdomen and [...] the liver. IMPRESSION: Mechanical small bowel obstruction Carly Correa APRN.N.Katie., M.S.N. IMG CT PROCEDURE S XR chest 1V portable-Outside Chest Xray (03/06/2022 3:40 AM CDT) Specimen (Source) Anatomical Location Collection Method / Collectio n Time Received Time / Laterality Volume Narrative IIFL - 03/10/2022 2:31 PM CDT This order [...] Not In System IMG DIAGNOSTIC IMAGING PROCE DUR Performing Organization Address City/[facility]/ZIP Code Phon e Number IIFL IIMS NA CT ABDOMEN PELVIS W CON-Outside CT Body (03/06/2022 1:35 AM CDT) Specimen (Source) Anatomical Location Collection Method / Collectio n Time Received Time / Laterality Volume Narrative IIFL - 03/10/2022 2:34 PM CDT This order [...] System IMG CT PROCEDURES Performing Organization Address City/[facility]/ZIP Code Phon e Number IIMS IIMS NA [...] by the treating provider and reviewed by [facility] radiologist to increase sensitivity for detection of [...] by the treating provider and reviewed by [facility] radiologist to increase sensitivity for detection of [...] athologist Signature HIV-1/-2 Ag Negative Negative 01/03/2022 [facility] and Ab Screen, 2:01 PM [...] - BLOOD O ELVI Performing Organization Address City/[facility] Phon e Number [facility] [address] [place] [address] [address] [facility] [place] [address] Laboratory Medicine and Pathology [address] [place] [address] Dr. MARQUEZ HCV Ab Scrn w/Reflex to HCV PCR, Serum (01/03/2022 9:20 AM CDT) athologist Signature HCV Ab Screen, Negative Negative 01/03/2022 [facility] S 1:49 PM CDT Comment: Ebzrdv-fx-dokjpe ratio is <1.00 . Specimen Anatomical Collection Method Collection Time Receive d Time (Source) Location / / Volume Laterality Blood (Blood, 01/03/2022 9:20 AM 01/04/20 Venous) CDT 12:23 PM CDT Walter Barnhart M.D., Ph.D. LAB MICROBIOLOGY - BLOOD Arun BOLES Performing Organization Address City/[facility]/ZIP Code Phon e Number [address] [place] [address] [facility] [facility] [place] [address] Laboratory Medicine and Pathology [address] [place] [address] Dr. MARQUEZ Hepatitis B Surface Antigen (01/03/2022 9:20 AM CDT) athologist Signature HBs Antigen, S Negative Negative 01/03/2022 [facility] 1:32 PM CDT Specimen Anatomical Collection Method Collection Time Receive d Time (Source) Location / / Volume Laterality Blood (Blood, 01/03/2022 9:20 AM 01/04/20 Venous) CDT 12:23 PM CDT Walter Barnhart M.D., Ph.D. LAB MICROBIOLOGY - BLOOD O RDERABLES Performing Organization Address City/State/ZIP Code Phon e Number [facility] [address] [place], [place] [address] [facility] [place] [address] Laboratory Medicine and Pathology [address] [...] Organization Address City/State/ZIP Code Phon e Number [facility] - [address] [place], [place] [address] [facility] [place] [address] Laboratories-[facility] [address] Cancer Antigen 125 (CA 125) (01/03/2022 9:20 AM CDT) P athologist Signature Cancer Ag 125 7 <46 U/mL 01/04/2022 [facility] (CA 125), S 12:19 PM CDT Comment: ----ADDITIONAL INFORMATION---- The testing method is an electrochemilum inescence assay manufactured by [employer] and performed on the Michela system. [...] M.S.N. LAB BLOOD ADD-ON Performing Organization Address City/[facility] Code Phon e Number [facility] [address] [place], [place] [address] [facility] [place] [address] Laboratory Medicine and Pathology [address] [place] (ABNORMAL) AST (Aspartate Aminotransferase) (01/03/2022 [...] LAB BLOOD ADD-ON Performing Organization Address City/State/[facility] Phon e Number [facility] - 200 [place], [place] [address] [facility] [place] [address] Laboratories-[address] (ABNORMAL) Alkaline Phosphatase (01/03/2022 9:20 AM CDT) athologist Signature Alkaline 150 (H) 35 - 104 01/03/2022 [facility] Phosphatase, S U/L 10:17 AM CDT Specimen Anatomical Collection Method Collection Time Receive d Time (Source) Location / / Volume Laterality Blood (Blood, 01/03/2022 9:20 AM 01/04/20 Venous) CDT 10:00 AM CDT Walter Barnhart M.D., Ph.D. LAB BLOOD ADD-ON Performing Organization Address City/[facility] Phon e Number [facility] - 200 [place], [place] [address] [place] [address] [facility]-[address] Creatinine with Estimated GFR (01/03/2022 9:20 AM CDT) athologist Signature Creatinine 0.78 0.59 - 01/03/2022 [facility] 1.04 mg/dL 10:17 AM CDT eGFR-Non >90 >=60 01/03/2022 [facility] Black/ mL/min/BSA 10:17 AM CDT Moz[place]ican Comment: ----ADDITIONAL INFORMATION---- Estimated GFR calculated using [...] Ph.D. LAB BLOOD ADD-ON Performing Organization Address City/[facility] Phon e Number [facility] - 200 [place], [place] [address] [facility] [place] [address] [facility] [address] Bilirubin, Total (01/03/2022 9:20 [...] Organization Address City/State/ZIP Code Phon e Number [place] [address] [address] [place], [place] [address] [place] [address] [facility] [address] [facility] from Last 3 Months Insurance Payer Benefit Plan / Subscriber ID Effective Phone Address T ype Group Dates GENERIC GENERIC [id number] 2020-Pres [phone] [address] COMMERCIAL COMMERCIAL ent [phone] [place] [address] Advance Directives For more information, please contact: [phone] Latest Code Status on File Code Status [...] Answer Comments Full Code: Discussed Care Teams Marketing Development Specialist Relationship Specialty Start Date End Date Elsewhere, Pcp PCP - General Internal Medicine 07/08/21
--- OUTSIDE RECORDS SUMMARY | 2022-04-04 14:11 | XMS_ITS | Encounter Summary ---
:1975 Author Organization [facility] Address [address] [place] [address] Care Team Providers Name Role Phone Elsewhere, Pcp Primary Care Provider Unavailable Encounter Details Date Type Department Care Team Description 04/03/2022 Clinical Communication Department of Oncology Malathi Bear, in [facility] [phone] [address] [facility] (Work) [place] [address] Social History Tobacco Use Types Packs/Day Years [...] Oncology Walter Barnhart M.D., Ph.D. [address] [place] [address] documented as of this encounter Visit Diagnoses Not on filedocumented in this encounter Care Teams Banquet Pilot Relationship Specialty Start Date End Date Elsewhere, Pcp PCP - General Internal Medicine 07/08/21 documented as of this encounter
--- OUTSIDE RECORDS SUMMARY | 2022-04-04 14:11 | XMS_ITS | Encounter Summary ---
:1975 Author Organization [facility] Address [address] [place] [address] Care Team Providers Name Role Phone Elsewhere, Pcp Primary Care Provider Unavailable Encounter Details Date Type Department Care Team Description 01/03/2022 Infusion Department of Oncology Marychuy Kapoor, Malignant Neoplasm Of in [facility] rojelio ROLLER DIE CUTTING MACHINE OPERATOR, C.N.P., Ovary Laterality [address] [facility] M.S.N. Unknown (HCC) [place], [place] [address] [facility] [address] [place], [place] [phone] (Wo rk) Social History Tobacco Use Types [...] Office Visit Oncology Walter Barnhart M.D., Ph.D. 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
--- OUTSIDE RECORDS SUMMARY | 2022-04-04 14:11 | XMS_ITS | Encounter Summary ---
:1975 Author Organization [facility] Address [address] [place] [address] Care Team Providers Name Role Phone Elsewhere, Pcp Primary Care Provider Unavailable Reason for Referral MRI/CAT/PET Scan (Routine) - Closed Specialty Diagnoses / Procedures Referred By Contact Refer red To Contact Radiology Diagnoses Malignant Neoplasm Of Ovary Laterality Unknown (HCC) Walter Barnhart M.D., [facility] Procedures CT Abdomen Pelvis with IV Contrast CT Abdomen Pelvis without and with IV Contrast MD CT ABD&PELVIS WO/W CNTRST MD CT ABD&PELVIS W CNTRST Ph.D. [address] [place] [address] Referral ID Status Reason Start Date Expiration Date Visits Requ ested Visits Authorized [id number] Closed 12/22/2021 06/23/2022 1 1 Outpatient (Routine) - Closed Specialty Diagnoses / Procedures Referred By Contact Refer red To Contact Oncology Walter Barnhart M. D., Ph.D. [facility] [address] [place] [address] Referral ID Status Reason Start Date Expiration Date Visits Requ ested Visits Authorized [id number] Closed 11/10/2021 11/10/2022 1 1 MRI/CAT/PET Scan (Routine) - Closed Specialty Diagnoses / Procedures Referred By Contact Refer red To Contact Radiology Diagnoses Malignant Neoplasm Of Ovary Laterality Unknown (HCC) Walter Barnhart M.D., [facility] Procedures CT Chest with IV Contrast MD CT THORAX W CNTRST Ph.D. [address] [place] [phone] Referral ID Status Reason Start Date Expiration Date Visits Requ ested Visits Authorized [id number] Closed 12/22/2021 06/23/2022 1 1 Reason for Visit Outpatient (Routine) - Closed Specialty Diagnoses / Procedures Referred By Contact Refer red To Contact Oncology Walter Barnhart M. D., Ph.D. [facility] [address] [place] [phone] Referral ID Status Reason Start Date Expiration Date Visits Requ ested Visits Authorized [id number] Closed 08/11/2021 08/11/2022 1 1 Encounter Details Date Type Department Care Team Description 11/10/2021 Office Visit Department of Walter Barnhart, Malignant Neoplasm Of Oncology in M.Karoline, Ph.D. Ovary Laterality [place], [place] [address] [place] [address] Unknown (HCC) (Primary [address] [place] [address] Dx) [place] [address] [phone] Social History Tobacco Use Types Packs/Day Years [...] Body Mass Index 19.28 08/10/2021 12:55 PM INDUSTRIAL ANALYST documented in this encounter Progress Notes Walter Barnhart M.D., Ph.D. 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 Variant of Uncertain Significance (VUS) found in APC gene specifically named [id number] aka [id number]). Somatic testing: HRD Positive, BRCA negative 02/03/2021 [...] Chemotherapy CARBOplatin AUC 6 / PACLitaxel ( HIGH DENSITY FINISHING OPERATOR ) Start Date: 02/25/2021 Completed 3 cycles [...] Chemotherapy CARBOplatin AUC 6 / PACLitaxel ( HIGH DENSITY FINISHING OPERATOR ) Start Date: 02/25/2021 Adjuvant chemotherapy, cycles [...] Oncology Walter Barnhart M.D., Ph.D. [address] [place] [address] Scheduled Referrals Name Type Priority Associated Diagnoses Order S [facility] Oncology office Outpatient Referral Routine Expec jace: visit (clinic) 02/09/2022, General; HIGH DENSITY FINISHING OPERATOR Expires: 02/10/2023 documented as of this encounter [...] Signature HBs Antigen, S Negative Negative 01/03/2022 [facility] 1:32 PM CDT Specimen Anatomical Collection Method Collection Time Receive d Time (Source) Location / / Volume Laterality Blood (Blood, 01/03/2022 9:20 AM 01/04/20 Venous) CDT 12:23 PM CDT Walter Barnhart M.D., Ph.D. LAB MICROBIOLOGY - BLOOD O ELVI Performing Organization Address City/[facility] Code Phon e Number [facility] [address] ALMA Dominguez [place] [address] SUPPORT [facility] [place] [address] Laboratory Medicine and Pathology [address] [place] [address] Dr. MARQUEZ HCV Ab Scrn w/Reflex to HCV PCR, Serum (01/03/2022 9:20 AM CDT) athologist [facility] HCV Ab Screen, Negative Negative 01/03/2022 [facility] S 1:49 PM CDT Comment: Ziktkk-ms-twbpzp ratio is <1.00 . Specimen Anatomical Collection Method Collection Time Receive d Time (Source) Location / / Volume Laterality Blood (Blood, 01/03/2022 9:20 AM 01/04/20 Venous) CDT 12:23 PM CDT Walter Barnhart M.D., Ph.D. LAB MICROBIOLOGY - BLOOD O ELVI Performing Organization Address City/State/ZIP Code Phon e Number [facility] [address] ALMA Dominguez [place] [address] SUPPORT [facility] [place] [address] Laboratory Medicine and Pathology [address] [place] [address] Dr. MARQUEZ HIV-1/-2 Ag and Ab Screen, Plasma (01/03/2022 9:20 AM CDT) athologist Signature HIV-1/-2 Ag Negative Negative 01/03/2022 [facility] and Ab Screen, 2:01 PM CDT [...] O RDERABLES Performing Organization Address City/[facility] Phon e Number [facility] [address] MARQUEZ [place], [place] [address] SUPPORT C[facility] [place] [address] Laboratory Medicine and Pathology [address] MARQUEZ Creatinine with Estimated GFR (01/03/2022 9:20 AM CDT) athologist Signature Creatinine 0.78 0.59 - 01/03/2022 [facility] 1.04 mg/dL 10:17 AM CDT eGFR-Non >90 >=60 01/03/2022 [facility] Black/ mL/min/BSA 10:17 AM CDT Honduran Comment: ----ADDITIONAL INFORMATION---- Estimated GFR calculated using [...] Ph.D. LAB BLOOD ADD-ON Performing Organization Address City/State/[facility] Phon e Number [facility] - [address] [place], [place] [address] [facility] [place] [address] Laboratories-[facility] 200 [facility] CBC with Differential, Blood (01/03/2022 9:20 AM [...] Blood (Blood, 01/03/2022 9:20 AM 01/04/20 22 9:44 Venous) CDT AM CDT Walter Barnhart M.D., Ph.D. LAB BLOOD ADD-ON Performing Organization Address City/State/ZIP Code Phon e Number [facility] - [address] [address] [facility] 200 [facility] Bilirubin, Total (01/03/2022 9:20 AM CDT) P athologist Signature Bilirubin, 1.0 <=1.2 mg/dL 01/03/2022 [facility] Total, S 10:17 AM CDT Specimen Anatomical Collection Method Collection Time Receive d Time (Source) Location / / Volume Laterality Blood (Blood, 01/03/2022 9:20 AM 01/04/20 Venous) CDT 10:00 AM CDT Walter Barnhart M.D., Ph.D. LAB BLOOD ADD-ON Performing Organization Address City/State/[facility] Phon e Number [facility] - [id number] [place] [address] (ABNORMAL) AST (Aspartate Aminotransferase) (01/03/2022 9:20 AM [...] Ph.D. LAB BLOOD ADD-ON Performing Organization Address City/State/[facility] Phon e Number [facility] - [address] (ABNORMAL) Alkaline Phosphatase (01/03/2022 9:20 AM [...] City/State/ZIP Code Phon e Number [facility] - [address] [place], [place] [address] [facility] [place] [address] [facility] [address] documented in this encounter Visit Diagnoses Diagnosis Malignant Neoplasm Of Ovary Laterality U nknown (HCC) - Primary Malignant Neoplasm Of Ovary Laterality U nknown (HCC) documented in this encounter Care Teams Police Records Clerk Relationship Specialty Start Date End Date Elsewhere, Pcp PCP - General Internal Medicine 07/08/21 documented as of this encounter
--- OUTSIDE RECORDS SUMMARY | 2022-04-04 14:11 | XMS_ITS | Encounter Summary ---
:1975 Author Organization [facility] Address [address] [place] [address] Care Team Providers Name Role Phone Elsewhere, Pcp Primary Care Provider Unavailable Encounter Details Date Type Department Care Team Description 03/13/2022 Ancillary Procedure Department of Marychuy Kapoor Neoplasm Radiology in M, EVENTS ASSOCIATE, C.N.P., Of Ovary La terality [place], M.S.N. Unknown (HCC) [place] [address] [address] [facility] [address] [place] [phone] Social History Tobacco Use Types Packs/Day Years [...] Visit Oncology Walter Barnhart M.D., Ph.D. [address] [place] [phone] documented as of this encounter Procedures Procedure [...] APRN C.N.P., M.S.N. IMG CT PROCEDURE S documented in this encounter Visit Diagnoses Diagnosis Malignant Neoplasm Of Ovary Laterality U nknown (HCC) documented in this encounter Care Teams Data Center Project Manager Relationship Specialty Start Date End Date Elsewhere, Pcp PCP - General Internal Medicine 07/08/21 documented as of this encounter
--- OUTSIDE RECORDS SUMMARY | 2022-04-04 14:11 | XMS_ITS | Encounter Summary ---
:1975 Author Organization [facility] Address [address] [place] [address] Care Team Providers Name Role Phone Elsewhere, Pcp Primary Care Provider Unavailable Encounter Details Date Type Department Care Team Description 01/03/2022 Hospital Encounter Department of [facility], Walter Clark ant Neoplasm Laboratory Medicine Kelly De La Cruz, Ph. D. Of Ovary Laterality and Pathology, [address] [place] [address] Unknown (HCC) [facility] [address] [place] [phone] 200 [facility] (Work) [place], [place] [phone] [address] (Fax) [phone] Social History Tobacco Use Types Packs/Day Years [...] mouth 60 capsule 11 0 09/12/2021 daily. caiydlb-ookw-ivgpp-oreg-c Take 1 tablet by 0 isra 100 mg-150 mg- 50 mouth daily. mg-150 mg capsule documented as of this encounter Plan of Treatment Upcoming Encounters Date Type Specialty Care Team Description 04/11/2022 Clinical Communication Admitting/Central Scheduling 04/13/2022 Office Visit Oncology Walter Barnhart M.D., Ph.D. [address] [place] [address] documented as of this encounter Procedures Procedure [...] Signature HBs Antigen, S Negative Negative 01/03/2022 [facility] 1:32 PM CDT Specimen Anatomical Collection Method Collection Time Receive d Time (Source) Location / / Volume Laterality Blood (Blood, 01/03/2022 9:20 AM 01/04/20 Venous) CDT 12:23 PM CDT Walter Barnhart M.D., Ph.D. LAB MICROBIOLOGY - BLOOD O RDERASHANTANU Performing Organization Address [facility] Code Phon e Number [facility] [address] ALMA Dominguez [address] [place] [address] Laboratory Medicine and Pathology [address] [place] [address] Dr. MARQUEZ HCV Ab Scrn w/Reflex to HCV PCR, Serum (01/03/2022 9:20 AM CDT) athologist [facility] HCV Ab Screen, Negative Negative 01/03/2022 [facility] S 1:49 PM CDT Comment: Rluxin-uy-mptgai ratio is <1.00 . Specimen Anatomical Collection Method Collection Time Receive d Time (Source) Location / / Volume Laterality Blood (Blood, 01/03/2022 9:20 AM 01/04/20 Venous) CDT 12:23 PM CDT Walter Barnhart M.D., Ph.D. LAB MICROBIOLOGY - BLOOD O RDERABLES Performing Organization Address City/[facility]/ZIP Code Phon e Number [facility] [address] [place] [address] Dr ALMA Dominguez [place] [address] SUPPORT [place] [address] Laboratory Medicine and Pathology [address] [place] [address] Dr. MARQUEZ HIV-1/-2 Ag and Ab Screen, Plasma (01/03/2022 9:20 AM CDT) athologist Signature HIV-1/-2 Ag Negative Negative 01/03/2022 [facility] and Ab Screen, 2:01 PM CDT [...] Organization Address City/State/ZIP Code Phon e Number [facility] [address] [place]QUEZ [place], [place] [address] SUPPORT CENTER [facility] [place] [address] Laboratory Medicine and Pathology [address] MARQUEZ Creatinine with Estimated GFR [...] Organization Address City/State/ZIP Code Phon e Number [facility] - [address] [place], [place] [address] [facility] [place] [address] [facility] [address] CBC with Differential, Blood (01/03/2022 9:20 AM [...] Organization Address City/State/ZIP Code Phon e Number [facility] - [address] [place], [place] [address] [facility] [place] [address] [facility] [address] Bilirubin, Total (01/03/2022 9:20 [...] Organization Address City/State/ZIP Code Phon e Number [facility] - [address] [place], [place] [address] [facility] [place] [address] [facility] 200 [facility] (ABNORMAL) AST (Aspartate Aminotransferase) (01/03/2022 9:20 [...] Ph.D. LAB BLOOD ADD-ON Performing Organization Address City/[facility]/ZIP Code Phon e Number [facility] - [address] [place], [place] [address] [facility] [place] [address] [facility] 200 [address] [facility] (ABNORMAL) Alkaline Phosphatase (01/03/2022 9:20 AM CDT) [...] Organization Address City/State/ZIP Code Phon e Number [facility] - [address] [place], [place] [address] [facility] [place] [address] [facility] [address] documented in this encounter Visit Diagnoses Diagnosis Malignant Neoplasm Of Ovary Laterality U nknown (HCC) documented in this encounter Care Teams Recovery Agent Relationship Specialty Start Date End Date Elsewhere, Pcp PCP - General Internal Medicine 07/08/21 documented as of this encounter
--- OUTSIDE RECORDS SUMMARY | 2022-04-04 14:11 | XMS_ITS | Encounter Summary ---
:1975 Author Organization [facility] Address [address] [place] [address] Care Team Providers Name Role Phone Elsewhere, Pcp Primary Care Provider Unavailable Encounter Details Date Type Department Care Team Description 02/08/2022 Clinical Communication Department of Walter Barnhart Oncology in M.D., Ph.D. [place], [place] [address] [facility] [address] [place] [phone] [phone] Social History Tobacco Use Types Packs/Day Years [...] Oncology Walter Barnhart M.D., Ph.D. [address] [place] [address] documented as of this encounter Visit Diagnoses Not on filedocumented in this encounter Care Teams Correspondence Coordinator Relationship Specialty Start Date End Date Elsewhere, Pcp PCP - General Internal Medicine 07/08/21 documented as of this encounter
--- OUTSIDE RECORDS SUMMARY | 2022-04-04 14:11 | XMS_ITS | Clinical Summary ---
:1975 Author Organization [employer] [facility] [place] [address] Care Team Providers Name Role Phone Aruna Medina [facility] Primary Care Provider Allergies Active Allergy Reactions [...] BABY GIRL ( KATHR YN) Delivery Location: [facility] Comments: ARSALAN:ALLEN AMARAL:MAURO Myles Last Filed [...] Completed 01/05/2010 Medical Devices Implanted Type Area Resident Care Supervisor Device Shelf Model / Identifier Expiration Serial / Lot Date Sling Miniarc Precise - [id number] N/A: [employer] 06/26/2015 [id number] / Implanted: Qty: 1 on 01/03/2013 by [place] Gardner MD at [facility] / [id number] Description: MINI [employer]C 'PRECISE' MID-URET HRAL SLING Results Not on filefrom Last 3 Months Insurance Payer Benefit Plan / Subscriber ID Effective Dates Phone Addre ss Type Group [employer] [id number] 2016-Present [address] [address] [place] [address] Advance Directives Latest Code Status on File Code Status Date Activated Date Inactivated Comments Full Code 01/07/2013 8:40 AM 01/07/2013 11:39 AM Full Code 01/03/2010 2:08 PM 01/05/2010 4:29 PM Full Code 01/03/2010 6:21 AM 01/03/2010 6:52 AM Care Teams Manager Requirements Relationship Specialty Start Date End Date Aruna Medina CNM PCP - General Obstetrics and Gynecology 06/30/16
--- OUTSIDE RECORDS SUMMARY | 2022-04-04 14:11 | XMS_ITS | Encounter Summary ---
:1975 Author Organization [facility] Address [address] [place] [address] Care Team Providers Name Role Phone Elsewhere, Pcp Primary Care Provider Unavailable Reason for Visit Reason Comments Labs Only Encounter Details Date Type Department Care Team Description 03/20/2022 Clinical Communication Department of Oncology Malathi Bear, Labs Only in [facility] [phone] [address] [facility] (Work) [place] [address] Social History Tobacco Use Types Packs/Day Years [...] Miscellaneous Notes Telephone Encounter - Malathi Bear RDayan. - 03/20/2022 11:52 AM CDT Addressed in another encounter documented in this encounter Plan of Treatment Upcoming Encounters Date Type Specialty Care Team Description 04/11/2022 Clinical Communication Admitting/Central Scheduling 04/13/2022 Office Visit Oncology Walter Barnhart M.D., Ph.D. [address] [place] [phone] documented as of this encounter Visit Diagnoses Not on filedocumented in this encounter Care Teams Lozenge Dough Mixer Relationship Specialty Start Date End Date Elsewhere, Pcp PCP - General Internal Medicine 07/08/21 documented as of this encounter
--- OUTSIDE RECORDS SUMMARY | 2022-04-04 14:12 | XMS_ITS | Encounter Summary ---
:1975 Author Organization [facility] Address [address] [place] [address] Care Team Providers Name Role Phone Unavailable Primary Care Provider Unavailable Reason for Visit Episode Based Medications (Routine) - Authorized Specialty Diagnoses / Procedures Referred By Contact Refer red To Contact Diagnoses Malignant Neoplasm Of Ovary Laterality Unknown (HCC) Walter Barnhart M.D., R st [facility] Procedures AZ CARBOPLATIN INJECTION AZ PACLITAXEL INJECTION AZ INJECTION, PEGFILGRASTIM 6MG [place] DEXAMETHASONE SODIUM PHOS Ph.D. [address] [facility] [address] [place] [phone] Referral ID Status Reason Start Date Expiration Date Visits V isits Requested Authorized [id number] Authorized 02/17/2021 02/17/2022 12 12 Encounter Details Date Type Department Care Team Description 06/20/2021 Office Visit Department of Marychuy Kapoor Malignan t Neoplasm Of Ovary Laterality Unknown (HCC); Oncology in STAPLE SHEAR OPERATOR, C.N.P., Neutropenia Dr hannah Lorenzo (HCC) [place], [place] M.S.N. [address] [facility] [address] [place] [phone] Social History Tobacco Use Types Packs/Day Years [...] Comments Blood Pressure 125/81 06/20/2021 8:07 AM PHARMACY TECHNOLOGY INSTRUCTOR Pulse 60 06/20/2021 8:07 AM PHARMACY TECHNOLOGY INSTRUCTOR Temperature 35.5 ??C (95.9 ??F) 06/20/2021 8:07 AM PHARMACY TECHNOLOGY INSTRUCTOR Respiratory Rate 16 06/20/2021 8:07 AM PHARMACY TECHNOLOGY INSTRUCTOR Oxygen Saturation 100% 06/20/2021 8:07 AM PHARMACY TECHNOLOGY INSTRUCTOR Inhaled Oxygen Concentration - - Weight 56.2 kg (123 lb 14.4 oz) 06/20/2021 8:07 AM PHARMACY TECHNOLOGY INSTRUCTOR Height 169.2 cm (5' 6.61) 06/20/2021 8:07 AM PHARMACY TECHNOLOGY INSTRUCTOR Body Mass Index 19.63 06/20/2021 8:07 AM PHARMACY TECHNOLOGY INSTRUCTOR documented in this encounter Progress Notes Marychuy Kapoor APRN, C.N.P., M.S.N. - 06/20/2021 8:20 AM CST CHIEF COMPLAINT/PUPROSE OF VISIT: Ms. Yang is a 45 y.o. woman with stage IVB high-grade serous ovarian cancer Collaborating provider: Dr. Walter Barnhart ([phone]) HISTORY OF PRESENT ILLNESS: Ms. Yang is a very pleasant 45 y.o. woman with the following oncologic history: Oncology History Malignant Neoplasm Of Ovary Laterality Unknown (HCC) Genetic Testing and Tumor Genotyping Genetic testing in 2020; [facility]CAnalysis with MyRisk panel from [facility] [employer] lab. Variant of Uncertain Significance (VUS) found in APC gene specifically named [id number] aka [id number]). 02/03/2021 Other Ultrasound with bilateral complex solid [...] Chemotherapy CARBOplatin AUC 6 / PACLitaxel ( CAKE DECORATOR ) Start Date: 02/25/2021 Completed 3 cycles [...] Chemotherapy CARBOplatin AUC 6 / PACLitaxel ( CAKE DECORATOR ) Start Date: 02/25/2021 Adjuvant chemotherapy, cycles [...] plan; patient expressed understanding of the content. MACY TECHNOLOGY INSTRUCTOR documented in this encounter Miscellaneous Notes Addendum Note - Adriane Uribe APRN, C.N.P. - 06/20/2021 8:20 AM PHARMACY TECHNOLOGY INSTRUCTOR Addended by: ADRIANE URIBE on: 06/22/2021 11:42 AM Modules accepted: Orders MACY TECHNOLOGY INSTRUCTOR documented in this encounter Plan of Treatment Upcoming Encounters Date Type Specialty Care Team Description 04/11/2022 Clinical Communication Admitting/Central Scheduling 04/13/2022 Office Visit Oncology Walter Barnhart M.D., Ph.D. [address] [place] [phone] Scheduled Orders Name Type Priority Associated Diagnoses Order S daniella [id number] [facility] CDx Lab Routine Malignant Neop lasm Of Expected: 06/22/2021 - Miscellaneous Test Ovary Laterality (Ap proximate), Unknown (HCC) Expires: 09/20 documented as of this encounter Procedures Procedure Name Priority Date/Time Associated Diagnosis Comme nts [facility] Routine 05/09/2021 12:06 PM Results for this GENETICS LAB PHARMACY TECHNOLOGY INSTRUCTOR procedure are i n the results section. documented in this encounter Results [facility] (05/09/2021 12:06 PM PHARMACY TECHNOLOGY INSTRUCTOR) P athologist Signature Test Name [facility] CDx 07/04/2021 [facility] 11:17 AM PHARMACY TECHNOLOGY INSTRUCTOR Result SEE COMMENT 07/19/2021 [facility] 10:14 AM PHARMACY TECHNOLOGY INSTRUCTOR Comment: For final report, select Lab-Send Out L ab Results hyperlink below. Specimen Anatomical Collection Method Collection Time Receive d Time (Source) Location / / Volume Laterality Varies 05/09/2021 12:06 07/04/2021 PM PHARMACY TECHNOLOGY INSTRUCTOR 11:17 AM PHARMACY TECHNOLOGY INSTRUCTOR Narrative This result has an attachment that is no t available. Adriane Uribe APRN C.N.P. LAB [facility] ORDERABLES Performing Organization Address City/State/ZIP Code Phon e Number [employer] [address] [place] [address] [employer] [place] [address] [employer] [address] [facility] documented in this encounter Visit Diagnoses Diagnosis 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
--- OUTSIDE RECORDS SUMMARY | 2022-04-04 14:12 | XMS_ITS | Encounter Summary ---
:[address] [facility] Address [address] [place] [address] Care Team Providers Name Role Phone Elsewhere, Pcp Primary Care Provider Unavailable Reason for Visit Reason Comments Labs Only Encounter Details Date Type Department Care Team Description 11/02/2021 Clinical Communication Department of Aruna Hernández , Labs Only Oncology in M.S.N., R.N. [place], [place] [address] [facility] [address] [place] [phone] Social History Tobacco Use Types Packs/Day Years [...] Office Visit Oncology Walter Barnhart M.D., Ph.D. [address] [place] [phone] documented as of this encounter Procedures Procedure Name Priority Date/Time Associated Diagnosis Comme nts HEMATOLOGY/ONCOLOGY Routine 11/01/2021 1:15 PM Re sults for this - BLOOD, EXTERNAL CDT procedure are in LAB RESULTS the results section. documented in this encounter Results (ABNORMAL) Hematology/Oncology - Blood, External Lab Results (11/01/2021 1:15 PM CDT) athologist Signature EXT Hemoglobin 13.1 12.0 - OTHER (SPECIFY 15.5 IN INDIGO MIXER) EXT Leukocytes 5.01 5.00 - OTHER (SPECIFY 10.00 IN INDIGO MIXER) EXT Absolute 2.60 1.70 - OTHER (SPECIFY Neutrophil 7.00 IN INDIGO MIXER) Count EXT Platelet 252 150 - 450 OTHER (SPECIFY Count IN INDIGO MIXER) EXT AST 45 (A) 12 - 35 OTHER (SPECIFY IN INDIGO MIXER) EXT ALT 21 4 - 35 OTHER (SPECIFY IN INDIGO MIXER) EXT Bilirubin, 1.0 0.1 - 1.5 OTHER (SPECIFY Total mg/dL IN INDIGO MIXER) EXT Creatinine 0.7 0.5 - 1.5 OTHER (SPECIFY mg/dL IN INDIGO MIXER) Specimen (Source) Anatomical Collection Method Collection Time Re ceived Time Location / / Volume Laterality Blood 11/01/2021 1:15 PM CDT Historical Provider LAB BLOOD NON ADD-ON Performing Organization Address City/State/ZIP Code Phon e Number OTHER (SPECIFY IN INDIGO MIXER) OTHER (SPECIFY IN INDIGO MIXER) N/A documented in this encounter Visit Diagnoses Not on filedocumented in this encounter Care Teams Prosthetic Technician Relationship Specialty Start Date End Date Elsewhere, Pcp PCP - General Internal Medicine 07/08/21 documented as of this encounter
--- OUTSIDE RECORDS SUMMARY | 2022-04-04 14:12 | XMS_ITS | Encounter Summary ---
:1975 Author Organization [facility] Address [address] [place] [address] Care Team Providers Name Role Phone Elsewhere, Pcp Primary Care Provider Unavailable Encounter Details Date Type Department Care Team Description 08/05/2021 Clinical Communication Department of Oncology Candie Monahan in [facility] [address] [facility] [address] [place] [phone] Social History Tobacco Use Types Packs/Day Years [...] Oncology Walter Barnhart M.D., Ph.D. [address] [place] [phone] documented as of this encounter Visit Diagnoses Not on filedocumented in this encounter Care Teams Automatic Presser Relationship Specialty Start Date End Date Elsewhere, Pcp PCP - General Internal Medicine 07/08/21 documented as of this encounter
--- OUTSIDE RECORDS SUMMARY | 2022-04-04 14:12 | XMS_ITS | Encounter Summary ---
:1975 Author Organization [facility] Address [address] [place] [address] Care Team Providers Name Role Phone Elsewhere, Pcp Primary Care Provider Unavailable Reason for Referral Outpatient (Routine) - Closed Specialty Diagnoses / Procedures Referred By Contact Refer red To Contact Oncology Walter Barnhart M. D., Ph.D. [address] [phone] Referral ID Status Reason Start Date Expiration Date Visits Requ ested Visits Authorized [id number] Closed 08/11/2021 08/11/2022 1 1 SHAPER Reason for Visit Outpatient (Routine) - Closed Specialty Diagnoses / Procedures Referred By Contact Refer red To Contact Oncology Candie Monahan, APR N, C.N.P. [address] [phone] Referral ID Status Reason Start Date Expiration Date Visits Requ ested Visits Authorized [id number] Closed 05/30/2021 05/30/2022 1 1 Encounter Details Date Type Department Care Team Description 08/10/2021 Office Visit Department of Walter Barnhart, Malignant Neoplasm Of Oncology in [place]., Ph.D. Ovary Laterality [place], [place] [address] [place] [address] Unknown (HCC) (Primary [address] [place] [address] Dx) [place] [phone] Social History Tobacco Use Types Packs/Day Years [...] Comments Blood Pressure 129/79 08/10/2021 12:55 PM BRIM SHAPER Pulse 70 08/10/2021 12:55 PM BRIM SHAPER Temperature 36.6 ??C (97.9 ??F) 08/10/2021 12:55 PM BRIM SHAPER Respiratory Rate 16 08/10/2021 12:55 PM BRIM SHAPER Oxygen Saturation 94% 08/10/2021 12:55 PM BRIM SHAPER Inhaled Oxygen Concentration - - Weight 54.6 kg (120 lb 5.9 oz) 08/10/2021 12:55 PM BRIM SHAPER Height 169.5 cm (5' 6.73) 08/10/2021 12:55 PM BRIM SHAPER Body Mass Index 19 08/10/2021 12:55 PM BRIM SHAPER documented in this encounter Progress Notes Walter Barnhart M.D., Ph.D. - 08/10/2021 1:00 PM CST SUBJECTIVE CHIEF COMPLAINT/REASON FOR VISIT Stage IVB high-grade serous ovarian cancer HISTORY OF PRESENT ILLNESS Oncology History Malignant Neoplasm Of Ovary Laterality Unknown (HCC) Genetic Testing and Tumor Genotyping Genetic testing in 2020; BRCAnalysis with [facility] panel from [facility]. Variant of Uncertain Significance (VUS) found in APC gene specifically named [id number] aka [id number]). Somatic testing: HRD Positive, BRCA negative 02/03/2021 [...] Chemotherapy CARBOplatin AUC 6 / PACLitaxel ( GROUNDMAN/LINEMAN ) Start Date: 02/25/2021 Completed 3 cycles [...] Chemotherapy CARBOplatin AUC 6 / PACLitaxel ( GROUNDMAN/LINEMAN ) Start Date: 02/25/2021 Adjuvant chemotherapy, cycles [...] and/or coordination of care as described above. SHAPER documented in this encounter Plan of Treatment Upcoming Encounters Date Type Specialty Care Team Description 04/11/2022 Clinical Communication Admitting/Central Scheduling 04/13/2022 Office Visit Oncology Walter Barnhart M.D., Ph.D. [address] [place] [phone] Scheduled Referrals Name Type Priority Associated Diagnoses Order [facility] Oncology office Outpatient Referral Routine Expec jace: visit (clinic) 11/10/2021, General; GROUNDMAN/LINEMAN Expires: 11/11/2022 documented as of this encounter Visit Diagnoses Diagnosis Malignant Neoplasm Of Ovary Laterality U nknown (HCC) - Primary documented in this encounter Care Teams Senior Quality Assurance Analyst Relationship Specialty Start Date End Date Elsewhere, Pcp PCP - General Internal Medicine 07/08/21 documented as of this encounter
--- OUTSIDE RECORDS SUMMARY | 2022-04-04 14:12 | XMS_ITS | Encounter Summary ---
:1975 Author Organization [facility] Address [address] [place] [address] Care Team Providers Name Role Phone Unavailable Primary Care Provider Unavailable Reason for Visit Reason Comments Post-op Visit Outpatient (Routine) - Closed Specialty Diagnoses / Procedures Referred By Contact Refer red To Contact Obstetrics and Ruben Rod M.D. [facility] Gynecology [address] [place] [phone] Referral ID Status Reason Start Date Expiration Date Visits Requ ested Visits Authorized [id number] Closed 05/13/2021 05/13/2022 1 1 Encounter Details Date Type Department Care Team Description 06/22/2021 Office Visit Department of Jessica Uribe Malignant N eoplasm Of Ovary Laterality Unknown (HCC) (Primary Dx); Obstetrics and REMITTANCE CLERK, C.N.P. Follow Up Examination Postoperative Visi t Gynecology in [address] [place] [address] [place] [phone] [place], [place] [phone] (Work) [phone] Social History Tobacco Use Types Packs/Day Years [...] as of this encounter Progress Notes Jessica Uribe, DENNY, C.N.P. - 06/22/2021 11:30 AM CST Subjective [...] [facility] Patient had negative germline BRCA testing, but [...] communicated to her medical oncology team here. TER CASTER documented in this encounter Plan of Treatment Upcoming Encounters Date Type Specialty Care Team Description 04/11/2022 Clinical Communication Admitting/Central Scheduling 04/13/2022 Office Visit Oncology Walter Barnhart M.D., Ph.D. 200 [place] [phone] documented as of this encounter Visit Diagnoses Diagnosis Malignant Neoplasm Of Ovary Laterality U nknown (HCC) - Primary Follow Up Examination Postoperative Visi t documented in this encounter
--- OUTSIDE RECORDS SUMMARY | 2022-04-04 14:12 | XMS_ITS | Encounter Summary ---
:1975 Author Organization [facility] Address [address] [place] [address] Care Team Providers Name Role Phone Elsewhere, Pcp Primary Care Provider Unavailable Reason for Referral MRI/CAT/PET Scan (Routine) - Closed Specialty Diagnoses / Procedures Referred By Contact Refer red To Contact Radiology Diagnoses Malignant Neoplasm Of Ovary Laterality Unknown (HCC) Candie Monahan [facility] Procedures CT Abdomen Pelvis with IV Contrast ME CT ABD&PELVIS W CNTRST C.N.P. [address] [place] [phone] Referral ID Status Reason Start Date Expiration Date Visits Requ ested Visits Authorized [id number] Closed 07/22/2021 08/19/2021 1 1 ECTIVE SIGNAL REPAIRER MRI/CAT/PET Scan (Routine) - Closed Specialty Diagnoses / Procedures Referred By Contact Refer red To Contact Radiology Diagnoses Malignant Neoplasm Of Ovary Laterality Unknown (HCC) Candie Monahan [facility] Procedures CT Chest with IV Contrast ME CT THORAX W CNTRST ME 3D WO IND WORKSTATION C.N.P. [address] [place] [phone] Referral ID Status Reason Start Date Expiration Date Visits Requ ested Visits Authorized [id number] Closed 07/22/2021 08/19/2021 1 1 ECTIVE SIGNAL REPAIRER Reason for Visit MRI/CAT/PET Scan (Routine) - Closed Specialty Diagnoses / Procedures Referred By Contact Refer red To Contact Radiology Diagnoses Malignant Neoplasm Of Ovary Laterality Unknown (HCC) Candie Monahan APRN, [place] Procedures CT Abdomen Pelvis with IV Contrast ME CT ABD&PELVIS W CNTRST C.N.P. [address] [place] [phone] Referral ID Status Reason Start Date Expiration Date Visits Requ ested Visits Authorized [id number] Closed 07/22/2021 08/19/2021 1 1 Encounter Details Date Type Department Care Team Description 08/04/2021 Hospital Encounter Department of Candie Monahan nt Neoplasm Radiology, Jeramy Box APRN, C.N.P. Of Ovary Laterality Building, in [address] [place] [address] Unknown (HCC) [place], [place] [address] [place] [phone] [place], [place] [phone] (Work) [phone] Social History Tobacco Use Types Packs/Day Years [...] Sig Dispensed Refills Start Date End Date [id number]-lkey-ybptu-oreg- Take 1 tablet by 0 capryl 100 [...] Oncology Walter Barnhart M.D., Ph.D. [address] [place] [phone] documented as of this encounter Procedures Procedure Name Priority Date/Time Associated Comments Diagnosis CT ABDOMEN PELVIS RAD - Routine 08/04/2021 11:49 Malignant Resul ts for this WITH IV CONTRAST (most inpatients AM PROTECTIVE SIGNAL REPAIRER Neoplasm Of Ovary pr ocedure are in and all Laterality the results outpatients) Unknown (HCC) section. CT CHEST WITH IV RAD - Routine 08/04/2021 11:49 Malignant Result s for this CONTRAST (most inpatients AM PROTECTIVE SIGNAL REPAIRER Neoplasm Of Ovary proced ure are in and all Laterality the results outpatients) Unknown (HCC) section. documented in this encounter Results CT Abdomen Pelvis with IV Contrast (08/04/2021 11:49 AM PROTECTIVE SIGNAL REPAIRER) Anatomical Region Laterality Modality Abdomen, Pelvis, Abdominal RST LOS, N/A Comp uted Tomography, Computed Abdominal ARZ LOS, Abdominal FLA LOS Aldo ography Specimen (Source) Anatomical Collection Method Collection Time Re ceived Time Location / / Volume Laterality 08/04/2021 11:44 AM PROTECTIVE SIGNAL REPAIRER Impressions 08/04/2021 12:37 PM PROTECTIVE SIGNAL REPAIRER New postoperative changes in the abdomen and pelvis for resection of the patient's ovarian carcinoma. No definite residual/ recurrent or metastatic disease. There is minimal soft tissue nodularity subjacent to the left hemidiaphragm that is technically indeterminant for postoperative change versus a metastatic implant and surveillance would likely be beneficial. Narrative 08/04/2021 12:37 PM PROTECTIVE SIGNAL REPAIRER EXAM: ??CT ABDOMEN PELVIS WITH IV CONTRAST [...] likely be beneficial. Candie Monahan APRN, C.N.P. IMNatalie CT PROCEDURES CT Chest with IV Contrast (08/04/2021 11:49 AM PROTECTIVE SIGNAL REPAIRER) Anatomical Region Laterality Modality Chest, Thoracic RST LOS, Thoracic ARZ N/A Co mputed Tomography, Computed LOS, Thoracic ARZ LOS, Thoracic FLA Rene graphy LOS Specimen (Source) Anatomical Collection Method Collection Time Re ceived Time Location / / Volume Laterality 08/04/2021 11:45 AM PROTECTIVE SIGNAL REPAIRER Impressions 08/04/2021 2:17 PM PROTECTIVE SIGNAL REPAIRER 1. No change since 05/02/2021. 2. Tiny pulmonary nodules are also uncha nged dating back to 02/11/2021, and though indeterminate, are most likely benign. Narrative 08/04/2021 2:17 PM PROTECTIVE SIGNAL REPAIRER EXAM: CT CHEST WITH IV CONTRAST COMPARISON: [...] indeterminate, are most likely benign. Candie Monahan APRN C.N.PChapincito IMG CT PROCEDURES documented in this encounter Visit Diagnoses Diagnosis Malignant Neoplasm Of Ovary Laterality U nknown (HCC) documented in this encounter Administered Medications Inactive Administered Medications - up to 3 most recent administrations Medication Order MAR Action Action Date Dose Rate Site iohexol (OMNIPAQUE) dilution Given 08/04/2021 10:50 AM PROTECTIVE SIGNAL REPAIRER 9,000 mg solution 9,000 mg iodine/1,000 mL water 9,000 mg, oral, Once in imaging, contrast, Starting on Misty 08/04/21 at 1049, For 1 dose, Imaging Protocol Orders, Mix iohexol 300 (Omnipaque?? 300) 30 mL with 970 mL water for a total volume of 1,000 mLs. Patient to drink mixture in 40 minutes. iohexoL 300 mg iodine/mL solution 1-200 mL Given 08/04/2021 11:35 AM PROTECTIVE SIGNAL REPAIRER 100 mL (OMNIPAQUE) 1-200 mL, intravenous, Once in imaging, contrast, Starting on Misty 08/04/21 at 1049, For 1 dose, Imaging Protocol Orders, Dose per Radiant Medication Guidelines sodium chloride (PF) 0.9 % injection 1-1 00 mL Given 08/04/2021 11:35 AM PROTECTIVE SIGNAL REPAIRER 50 mL 1-100 mL, intravenous, Once, On Misty 08/04/21 at 1100, For 1 dose, Imaging Protocol Orders documented in this encounter Care Teams Furniture Installer Relationship Specialty Start Date End Date Elsewhere, Pcp PCP - General Internal Medicine 07/08/21 documented as of this encounter
--- OUTSIDE RECORDS SUMMARY | 2022-04-04 14:12 | XMS_ITS | Encounter Summary ---
:1975 Author Organization [facility] Address [address] [place] [address] Care Team Providers Name Role Phone Elsewhere, Pcp Primary Care Provider Unavailable Encounter Details Date Type Department Care Team Description 09/16/2021 Orders Only Pharmacy Prior Auth Melanie Pickens I. [phone] Social History Tobacco Use Types Packs/Day Years [...] or relatives? How often do you attend lutheran or 1 to 4 times per year 02/09 baptism services? Do you belong to any clubs or Yes 02/26/2021 organizations such as lutheran groups, unions, fraternal or athletic groups, or [...] Visit Oncology Walter Barnhart M.D., Ph.D. [address] [place] [phone] documented as of this encounter Visit Diagnoses Not on filedocumented in this encounter Care Teams Science Analyst Relationship Specialty Start Date End Date Elsewhere, Pcp PCP - General Internal Medicine 07/08/21 documented as of this encounter
--- OUTSIDE RECORDS SUMMARY | 2022-04-04 14:12 | XMS_ITS | Encounter Summary ---
:1975 Author Organization [facility] Address [address] [place] [address] Care Team Providers Name Role Phone Elsewhere, Pcp Primary Care Provider Unavailable Reason for Visit Reason Comments Rx Prior Authorization AUGUSTUS DENIED - ZEJULA 100 MG Encounter Details Date Type Department Care Team Description 09/16/2021 Clinical Communication Pharmacy Prior Auth Hardeep Chan y Rx Prior RO I. Authorization (AUGUSTUS [phone] DENIED - ZEJULA 100 (Work) MG) Social [...] Office Visit Oncology Walter Barnhart M.D., Ph.D. [address] [place] [phone] documented as of this encounter Visit Diagnoses Not on filedocumented in this encounter Care Teams Trip Follower Relationship Specialty Start Date End Date Elsewhere, Pcp PCP - General Internal Medicine 07/08/21 documented as of this encounter
--- OUTSIDE RECORDS SUMMARY | 2022-04-04 14:12 | XMS_ITS | Encounter Summary ---
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 [place], [place] [address] [place] [phone] [place], [place] [phone] (Wo rk) Social History Tobacco Use Types [...] Visit Oncology Walter Barnhart M.D., Ph.D. [address] [place] [phone] documented as of this encounter Visit Diagnoses Diagnosis Malignant Neoplasm Of Ovary Laterality U nknown (HCC) - Primary Neutropenia Drug Induced (HCC) documented in this encounter Administered Medications Inactive Administered Medications - up to 3 most recent administrations Medication Order MAR Action Action Date Dose Rate Site CARBOplatin 650 mg in NaCl New Bag 06/20/2021 2:40 PM QA TECH 650 mg 680 mL/hr 0.9% 340 mL IVPB (PARAPLATIN) 650 mg (rounded from 648 mg, Target AUC = 6), intravenous, at 680 mL/hr, Administer over 30 Minutes, Once, On Sun06/20/21 at 1245, For 1 dose dexamethasone in NaCl 0.9% IVPB 12 New Bag 06/20/2021 9:20 AM QA TECH 12 mg 200 mL/hr mg (DECADRON) 12 mg, intravenous, at 200 mL/hr, Administer over 15 Minutes, Once, On Sun06/20/21 at 0915, For 1 dose, Give prior to PACLitaxel Refrigerate diphenhydrAMINE 50 mg in NaCl 0.9% New Bag 06/20/2021 10:04 AM QA TECH 50 mg 204 mL/hr IVPB (BENADRYL) 50 mg, intravenous, at 204 mL/hr, Administer over 15 Minutes, Once, On Sun06/20/21 at 0915, For 1 dose, Pre taxol. ivpb vs ivp to help with symptoms famotidine injection 20 mg (PEPCID) Given 06/20/2021 9:19 AM QA TECH 20 mg 20 mg, intravenous, Once, On [...] 16 mg New Bag 06/20/2021 9:46 AM QA TECH 16 mg 232 mL/hr (ZOFRAN) 16 mg, intravenous, at 232 mL/hr, Administer over 15 Minutes, Once, On Sun06/20/21 at 0915, For 1 dose PACLitaxeL 288 mg in NaCl 0.9% New Bag 06/20/2021 11:02 AM QA TECH 288 mg 108 mL/hr (non-PVC) 323 mL IVPB (TAXOL) 288 mg (rounded from 285.25 mg = 175 mg/m2 ? 1.63 m2 Treatment Plan BSA from Measured weight), intravenous, at 108 mL/hr, Administer over 3 Hours, Once, On Sun06/20/21 at 0945, For 1 dose, Administer via 0.22 micron in-line filter. pegfilgrastim on-body injector Given 06/20/2021 2:42 PM QA TECH 6 mg Left Lower Abdomen 6 mg (NEULASTA ONPRO) 6 mg, subcutaneous, Once, On Sun06/20/21 at 0915, For 1 dose documented in this encounter
--- OUTSIDE RECORDS SUMMARY | 2022-04-04 14:12 | XMS_ITS | Encounter Summary ---
:1975 Author Organization [facility] Address [address] [place] [address] Care Team Providers Name Role Phone Elsewhere, Pcp Primary Care Provider Unavailable Encounter Details Date Type Department Care Team Description 09/12/2021 Orders Only Pharmacy Prior Auth Minerva Galindo [phone] Social History Tobacco Use Types Packs/Day Years [...] Oncology Walter Barnhart M.D., Ph.D. [address] [place] [phone] documented as of this encounter Visit Diagnoses Not on filedocumented in this encounter Care Teams Building Pressure Washer Relationship Specialty Start Date End Date Elsewhere, Pcp PCP - General Internal Medicine 07/08/21 documented as of this encounter
--- OUTSIDE RECORDS SUMMARY | 2022-04-04 14:12 | XMS_ITS | Encounter Summary ---
:1975 Author Organization [facility] Address [address] [place] [address] Care Team Providers Name Role Phone Elsewhere, Pcp Primary Care Provider Unavailable Reason for Visit Reason Comments Labs Only Encounter Details Date Type Department Care Team Description 10/26/2021 Clinical Communication Department of Aruna Hernández , Labs Only Oncology in M.S.N., R.N. [place], [place] [address] [facility] [address] [place] [phone] Social History Tobacco Use Types Packs/Day Years [...] Office Visit Oncology Walter Barnhart M.D., Ph.D. [address] [place] [phone] documented as of this encounter Procedures Procedure [...] (A) 12 - 35 OTHER (SPECIFY IN PHYSICAL THER) EXT ALT 21 4 - 35 OTHER (SPECIFY IN PHYSICAL THER) EXT Bilirubin, 1.2 0.1 - 1.5 OTHER (SPECIFY Total mg/dL IN PHYSICAL THER) EXT Cancer 5 OTHER (SPECIFY Antigen 125 IN PHYSICAL THER) (Ca 125) Comment: <=38 EXT Creatinine 0.7 0.5 - 1.5 mg/dL OTHER (SP ECIFY IN PHYSICAL THER) Specimen (Source) Anatomical Collection Method Collection Time Re ceived Time Location / / Volume Laterality Blood 10/25/2021 1:00 PM CDT Narrative This result has an attachment that is no t available. Historical Provider LAB BLOOD NON ADD-ON Performing Organization Address City/State/ZIP Code Phon e Number OTHER (SPECIFY IN PHYSICAL THER) OTHER (SPECIFY IN PHYSICAL THER) N/A Hematology/Oncology - Blood, External Lab Results (10/25/2021 1:00 PM CDT) P athologist Signature EXT Hemoglobin 13.4 12.0 - OTHER (SPECIFY 15.5 IN PHYSICAL THER) EXT Leukocytes 5.10 5.00 - OTHER (SPECIFY 10.00 IN PHYSICAL THER) EXT Absolute 2.52 1.70 - OTHER (SPECIFY Neutrophil 7.00 IN PHYSICAL THER) Count EXT Platelet 287 150 - 450 OTHER (SPECIFY Count IN PHYSICAL THER) Specimen (Source) Anatomical Collection Method Collection Time Re ceived Time Location / / Volume Laterality Blood 10/25/2021 1:00 PM CDT Narrative This result has an attachment that is no t available. Historical Provider LAB BLOOD NON ADD-ON Performing Organization Address City/State/ZIP Code Phon e Number OTHER (SPECIFY IN PHYSICAL THER) OTHER (SPECIFY IN PHYSICAL THER) N/A documented in this encounter Visit Diagnoses Not on filedocumented in this encounter Care Teams Director Of Catering Sales Relationship Specialty Start Date End Date Elsewhere, Pcp PCP - General Internal Medicine 07/08/21 documented as of this encounter
--- OUTSIDE RECORDS SUMMARY | 2022-04-04 14:12 | XMS_ITS | Encounter Summary ---
:1975 Author Organization [facility] Address [address] [place] [address] Care Team Providers Name Role Phone Elsewhere, Pcp Primary Care Provider Unavailable Encounter Details Date Type Department Care Team Description 07/11/2021 Clinical Communication Department of Walter Barnhart Oncology in M.D., Ph.D. [place], [place] [address] [facility] [address] [place] [phone] Social History Tobacco Use Types Packs/Day Years [...] Oncology Walter Barnhart M.D., Ph.D. [address] [place] [phone] documented as of this encounter Visit Diagnoses Not on filedocumented in this encounter Care Teams Wastewater Analyst Relationship Specialty Start Date End Date Elsewhere, Pcp PCP - General Internal Medicine 07/08/21 documented as of this encounter
--- OUTSIDE RECORDS SUMMARY | 2022-04-04 14:12 | XMS_ITS | Encounter Summary ---
:1975 Author Organization [facility] Address [address] [place] [address] Care Team Providers Name Role Phone Elsewhere, Pcp Primary Care Provider Unavailable Reason for Visit Reason Comments Immunizations Encounter Details Date Type Department Care Team Description 07/08/2021 Clinical Communication Department of Denisha Oviedo Immunizations Obstetrics and E, M.D. Gynecology in [address] [place] [address] [place] [phone] [place], [place] [phone] (Work) [phone] Social History Tobacco Use Types Packs/Day Years [...] Uribe APRN, C.N.P. - 07/08/2021 12:26 PM SANIPRACTIC PHYSICIAN Orders placed for her vaccines and an appointment for 07/11/21. Please schedule. PRACTIC PHYSICIAN Telephone Encounter - Arlene Archibald - 07/08/2021 12:11 PM CST Patient was to have immunizations at the [facility] today and she was turned away stating that she needed to establish care before they would give them to her. She wonders if these can be done when she comes for chemotherapy on Sunday, 07/11. The call was transferred from Medical Oncology. Per Jossie in Med Onc, their ARCHITECTURAL RENDERER said the orders would need to come from Dr. Oviedo. Please call patient to make necessary arrangements for Sunday if at all possible. PRACTIC PHYSICIAN documented in this encounter Plan of Treatment Upcoming Encounters Date Type Specialty Care Team Description 04/11/2022 Clinical Communication Admitting/Central Scheduling 04/13/2022 Office Visit Oncology Walter Barnhart M.D., Ph.D. [address] [place] [phone] documented as of this encounter Visit Diagnoses Not on filedocumented in this encounter Care Teams Commissary Assistant Relationship Specialty Start Date End Date Elsewhere, Pcp PCP - General Internal Medicine 07/08/21 documented as of this encounter
--- OUTSIDE RECORDS SUMMARY | 2022-04-04 14:12 | XMS_ITS | Encounter Summary ---
:1975 Author Organization [facility] Address [address] [place] [address] Care Team Providers Name Role Phone Elsewhere, Pcp Primary Care Provider Unavailable Encounter Details Date Type Department Care Team Description 08/04/2021 Hospital Encounter Department of Candie Monahan nt Neoplasm Laboratory Medicine E, KNITTING MACHINE OPERATOR, C.N .P. Of Ovary Laterality and Pathology, [address] [place] [address] Unknown (HCC) [facility], in [place], [place] [address] [place] [address] [place], [place] (Work) [phone] Social History Tobacco Use Types Packs/Day Years [...] Sig Dispensed Refills Start Date End Date gkqnyhe-mxkv-eilgk-oreg- Take 1 tablet by 0 capryl 100 [...] Office Visit Oncology Walter Barnhart M.D., Ph.D. [address] [place] [phone] documented as of this encounter Procedures Procedure Name Priority Date/Time Associated Comments Diagnosis CBC CHEMO - NO ALERTS Routine 08/04/2021 10:14 Malignant Neopl asm Results for this AM OCCUPATIONAL THERAPY CO DIRECTOR Of Ovary procedure are i n Laterality Unknown the resul ts (HCC) section. CANCER AG 125 (CA 125), Routine 08/04/2021 10:14 Malignant Juan plasm Results for this S AM OCCUPATIONAL THERAPY CO DIRECTOR Of Ovary procedure are i n Laterality Unknown the resul ts (HCC) section. ALANINE AMINOTRANSFERASE Routine 08/04/2021 10:14 Malignant Ne oplasm Results for this (ALT), S/P AM OCCUPATIONAL THERAPY CO DIRECTOR Of Ovary procedure are i n Laterality Unknown the resul ts (HCC) section. ASPARTATE Routine 08/04/2021 10:14 Malignant Neoplasm Resul ts for this AMINOTRANSFERASE (AST), AM OCCUPATIONAL THERAPY CO DIRECTOR Of Ovary proc edure are in S/P Laterality Unknown the resul ts (HCC) section. CREATININE WITH EGFR, Routine 08/04/2021 10:14 Malignant Neopl asm Results for this S/P AM OCCUPATIONAL THERAPY CO DIRECTOR Of Ovary procedure are i n Laterality Unknown the resul ts (HCC) section. BILIRUBIN DIRECT, S/P Routine 08/04/2021 10:14 Malignant Neopl asm Results for this AM OCCUPATIONAL THERAPY CO DIRECTOR Of Ovary procedure are i n Laterality Unknown the resul ts (HCC) section. BILIRUBIN, TOT, S/P Routine 08/04/2021 10:14 Malignant Neoplas m Results for this AM OCCUPATIONAL THERAPY CO DIRECTOR Of Ovary procedure are i n Laterality Unknown the resul ts (HCC) section. documented in this encounter Results Creatinine with Estimated GFR (08/04/2021 10:14 AM OCCUPATIONAL THERAPY CO DIRECTOR) P athologist Signature Creatinine 0.74 0.59 - 08/04/2021 DTL 1.04 mg/dL 11:11 AM OCCUPATIONAL THERAPY CO DIRECTOR eGFR-Non >90 >=60 08/04/2021 DTL Black/ mL/min/BSA 11:11 AM OCCUPATIONAL THERAPY CO DIRECTOR Cameroonian Comment: ----ADDITIONAL INFORMATION---- Estimated GFR calculated using the 2009 CKD_EPI creatinine equation. eGFR-Black/ >90 >=60 mL/min/BSA 2021 11:11 AM OCCUPATIONAL THERAPY CO DIRECTOR DTL Comment: ----ADDITIONAL INFORMATION---- Estimated GFR calculated using the 2009 CKD_EPI creatinine equation. Specimen Anatomical Collection Method Collection Time Receive d Time (Source) Location / / Volume Laterality Blood (Blood, 08/04/2021 10:14 08/04/2021 Venous) AM OCCUPATIONAL THERAPY CO DIRECTOR 10:55 AM OCCUPATIONAL THERAPY CO DIRECTOR Candie Monahan APRN C.N.P. LAB BLOOD ADD-ON Performing Organization Address City/State/ZIP Code Phon e Number [facility] - [address] [place], [place] [address] [facility] [place] [address] Laboratories-[facility] [place] [address] (ABNORMAL) CBC, Chemotherapy, No Alerts (08/04/2021 10:14 AM OCCUPATIONAL THERAPY CO DIRECTOR) Analysis Performed At Patho logist Time Signature Hemoglobin 13.0 11.6 - 08/04/2021 DTL 15.0 g/dL 10:50 AM OCCUPATIONAL THERAPY CO DIRECTOR Platelet Count 262 157 - 371 08/04/2021 DTL x10(9)/L 10:50 AM OCCUPATIONAL THERAPY CO DIRECTOR Leukocytes 3.2 (L) 3.4 - 9.6 08/04/2021 DTL x10(9)/L 10:50 AM OCCUPATIONAL THERAPY CO DIRECTOR Neutrophils 1.20 (L) 1.56 - 08/04/2021 DTL 6.45 10:50 AM OCCUPATIONAL THERAPY CO DIRECTOR x10(9)/L Specimen Anatomical Collection Method Collection Time Receive d Time (Source) Location / / Volume Laterality Blood (Blood, 08/04/2021 10:14 08/04/2021 Venous) AM OCCUPATIONAL THERAPY CO DIRECTOR 10:41 AM OCCUPATIONAL THERAPY CO DIRECTOR Sabine Garcia APRNNNesha LAB BLOOD ADD-ON Performing Organization Address City/State/ZIP Code Phon e Number [facility] - [address] [place], [place] [address] [place] [address] Laboratories-[facility] [address] [facility] Cancer Antigen 125 (CA 125) (08/04/2021 10:14 AM OCCUPATIONAL THERAPY CO DIRECTOR) athologist Signature Cancer Ag 125 5 <46 U/mL 08/04/2021 [facility] (CA 125), S 2:33 PM OCCUPATIONAL THERAPY CO DIRECTOR Comment: ----ADDITIONAL INFORMATION---- The testing method is an electrochemilum inescence assay manufactured by [employer] and performed on the Michela system. [...] (Blood, 08/04/2021 10:14 08/04/2021 1:44 Venous) AM OCCUPATIONAL THERAPY CO DIRECTOR PM OCCUPATIONAL THERAPY CO DIRECTOR Sabine Garcia APRNNNesha LAB BLOOD ADD-ON Performing Organization Address City/[facility]/ZIP Code Phon e Number [facility] [address] [place], [place] [address] [facility] [place] [address] Laboratory Medicine and Pathology [address] [place] Bilirubin, Direct (08/04/2021 10:14 AM OCCUPATIONAL THERAPY CO DIRECTOR) athologist Signature Bilirubin, <0.2 0.0 - 0.3 08/04/2021 DT Direct, S mg/dL 11:11 AM OCCUPATIONAL THERAPY CO DIRECTOR Specimen Anatomical Collection Method Collection Time Receive d Time (Source) Location / / Volume Laterality Blood (Blood, 08/04/2021 10:14 08/04/2021 Venous) AM OCCUPATIONAL THERAPY CO DIRECTOR 10:55 AM OCCUPATIONAL THERAPY CO DIRECTOR Sabine Garcia APRNN.PChapincito LAB BLOOD ADD-ON Performing Organization Address City/[facility]/ZIP Code Phon e Number [facility] - [address] 200 [facility] Bilirubin, Total (08/04/2021 10:14 AM OCCUPATIONAL THERAPY CO DIRECTOR) P athologist Signature Bilirubin, 0.5 <=1.2 mg/dL 08/04/2021 DTL Total, S 11:11 AM OCCUPATIONAL THERAPY CO DIRECTOR Specimen Anatomical Collection Method Collection Time Receive d Time (Source) Location / / Volume Laterality Blood (Blood, 08/04/2021 10:14 08/04/2021 Venous) AM OCCUPATIONAL THERAPY CO DIRECTOR 10:55 AM OCCUPATIONAL THERAPY CO DIRECTOR Candie Monahan APRN, C.N.P. LAB BLOOD ADD-ON Performing Organization Address City/[facility] Code Phon e Number [facility] - [address] AST (Aspartate Aminotransferase) (08/04/2021 10:14 AM OCCUPATIONAL THERAPY CO DIRECTOR) [facility] Method Time Signature Aspartate 32 8 - 43 08/04/2021 DTL Aminotransferase U/L 11:11 AM OCCUPATIONAL THERAPY CO DIRECTOR (AST), S Specimen Anatomical Collection Method Collection Time Receive d Time (Source) Location / / Volume Laterality Blood (Blood, 08/04/2021 10:14 08/04/2021 Venous) AM OCCUPATIONAL THERAPY CO DIRECTOR 10:55 AM OCCUPATIONAL THERAPY CO DIRECTOR Candie Monahan APRN, C.N.P. LAB BLOOD ADD-ON Performing Organization Address City/State/ZIP Code Phon e Number [facility] - [address] ALT (Alanine Aminotransferase) (08/04/2021 10:14 AM OCCUPATIONAL THERAPY CO DIRECTOR) [facility] gist Method Time Signature Alanine 23 7 - 45 08/04/2021 DTL Aminotransferase U/L 11:11 AM OCCUPATIONAL THERAPY CO DIRECTOR (ALT), S Specimen Anatomical Collection Method Collection Time Receive d Time (Source) Location / / Volume Laterality Blood (Blood, 08/04/2021 10:14 08/04/2021 Venous) AM OCCUPATIONAL THERAPY CO DIRECTOR 10:55 AM OCCUPATIONAL THERAPY CO DIRECTOR Candie Monahan APRN, C.N.P. LAB BLOOD ADD-ON Performing Organization Address City/State/ZIP Code Phon e Number [facility] - [address] [place], [place] [address] [facility] [place] [address] Laboratories-[facility] [address] documented in this encounter Visit Diagnoses Diagnosis Malignant Neoplasm Of Ovary Laterality U nknown (HCC) documented in this encounter Care Teams Retort Pre Cooker Relationship Specialty Start Date End Date Elsewhere, Pcp PCP - General Internal Medicine 07/08/21 documented as of this encounter
--- OUTSIDE RECORDS SUMMARY | 2022-04-04 14:12 | XMS_ITS | Encounter Summary ---
:1975 Author Organization [facility] Address [address] [place] [address] Care Team Providers Name Role Phone Unavailable Primary Care Provider Unavailable Reason for Visit Reason Comments Intake Assessment Encounter Details Date Type Department Care Team Description 07/06/2021 Clinical Communication Department of Marychuy Kapoor Assessment Oncology in [facility], C.N.P., M.S.N. [place] [address] [address] [facility] [address] [place] [phone] Social History Tobacco Use Types Packs/Day Years [...] - 07/06/2021 11:32 AM CST Intake done RNET ARCHITECT documented in this encounter Plan of Treatment Upcoming Encounters Date Type Specialty Care Team Description 04/11/2022 Clinical Communication Admitting/Central Scheduling 04/13/2022 Office Visit Oncology Walter Barnhart M.D., Ph.D. [address] [place] [phone] documented as of this encounter Visit Diagnoses Not on filedocumented in this encounter
--- OUTSIDE RECORDS SUMMARY | 2022-04-04 14:12 | XMS_ITS | Encounter Summary ---
:1975 Author Organization [facility] Address [address] [place] [address] Care Team Providers Name Role Phone Unavailable Primary Care Provider Unavailable Encounter Details Date Type Department Care Team Description 06/19/2021 Clinical Communication Department of Oncology Tala pride in [facility] rojelio Hernandez M.D. [address] [facility] [address] [place] [address] [phone] Social History Tobacco Use Types Packs/Day Years [...] Mary Romero M.D. - 06/19/2021 12:50 PM BLOWER ROOM ATTENDANT I received a call from the patient [...] the call. Mary Romero MD Hematology/Oncology Fellow [id number] 06/19/21 1:05 PM BLOWER ROOM ATTENDANT ER ROOM ATTENDANT documented in this encounter Plan of Treatment Upcoming Encounters Date Type Specialty Care Team Description 04/11/2022 Clinical Communication Admitting/Central Scheduling 04/13/2022 Office Visit Oncology Walter Barnhart M.D., Ph.D. [address] [place] [phone] documented as of this encounter Visit Diagnoses Not on filedocumented in this encounter
--- OUTSIDE RECORDS SUMMARY | 2022-04-04 14:12 | XMS_ITS | Encounter Summary ---
:1975 Author Organization [facility] Address [address] [place] [address] Care Team Providers Name Role Phone Elsewhere, Pcp Primary Care Provider Unavailable Encounter Details Date Type Department Care Team Description 07/08/2021 Office Visit Department of Family Ned Sprague Only Medicine in [facility], RChapincitoN[place]incito (Primary Dx) [place], [place] [address] [place] [phone] Social History Tobacco Use Types Packs/Day Years [...] vaccinations today,last time I had mine in [facility]''.Student Specialist Checked for due vaccinations and was unable to see and requested another clinic nurse and discussed with Brenda Blake and And after searching the chart for vaccination details,mortgage loan underwriter called [facility](nurse practitioner's nurse answered the phone call) and said.,''from [facility] they cannot place an order,but patient has [...] why you did not tell me earlier Student Specialist explained to the patient that,mortgage loan underwriter cannot open the chart ahead of a day for patient's detail. Patient understood and left the ENTRY LEVEL CIVIL ENGINEER clinic after blood draw. [facility] documented in this encounter Plan of Treatment Upcoming Encounters Date Type Specialty Care Team Description 04/11/2022 Clinical Communication Admitting/Central Scheduling 04/13/2022 Office Visit Oncology Walter Barnhart M.D., Ph.D. [address] [place] [address] documented as of this encounter Visit Diagnoses Diagnosis Immunization Only - Primary documented in this encounter Care Teams Instrumentation Technologist Relationship Specialty Start Date End Date Elsewhere, Pcp PCP - General Internal Medicine 07/08/21 documented as of this encounter
--- OUTSIDE RECORDS SUMMARY | 2022-04-04 14:12 | XMS_ITS | Encounter Summary ---
:1975 Author Organization [facility] Address [address] [place] [address] Care Team Providers Name Role Phone Elsewhere, Pcp Primary Care Provider Unavailable Reason for Visit Outpatient (Routine) - Closed Specialty Diagnoses / Procedures Referred By Contact Refer red To Contact General Surgery Agnes Drew M.D. [facility] [address] [place] [phone] Referral ID Status Reason Start Date Expiration Date Visits Requ ested Visits Authorized [id number] Closed 05/10/2021 05/10/2022 1 1 Encounter Details Date Type Department Care Team Description 08/09/2021 Telemedicine Division of Wilma Castro oplasm Of Hepatobiliary and G MTrent Ovary Laterality Pancreas Surgery in [address] [facility] Unknown (HCC) [place], [place] [address] [facility] [address] [place], [place] [phone] (Work) [phone] Social History Tobacco Use Types Packs/Day Years [...] needed with HPB surg -Continue following with FLIGHT CONTROL SPECIALIST Onc -Will continue to ask radiologists to comment on liver down the line, if LFTs become affected, can consider involving [facility], should improve off chemo E OR SHRED ROLL OPERATOR documented in this encounter Plan of Treatment Upcoming Encounters Date Type Specialty Care Team Description 04/11/2022 Clinical Communication Admitting/Central Scheduling 04/13/2022 Office Visit Oncology Walter Barnhart M.D., Ph.D. [address] [place] [address] documented as of this encounter Visit Diagnoses Diagnosis Malignant Neoplasm Of Ovary Laterality U nknown (HCC) documented in this encounter Care Teams Driver Guard Relationship Specialty Start Date End Date Elsewhere, Pcp PCP - General Internal Medicine 07/08/21 documented as of this encounter
--- OUTSIDE RECORDS SUMMARY | 2022-04-04 14:12 | XMS_ITS | Encounter Summary ---
:1975 Author Organization [facility] Address [address] [place] [address] Care Team Providers Name Role Phone Elsewhere, Pcp Primary Care Provider Unavailable Reason for Visit Reason Comments Immunizations Encounter Details Date Type Department Care Team Description 07/11/2021 Nurse Only Section of Preventive, Jessica Uribe, Gisselle munizations Transportation and DENNY C.N.P. Occupational Medicine in [address] [place] [address] [place] [address] [place] [phone] Social History Tobacco Use Types Packs/Day Years [...] Office Visit Oncology Walter Barnhart M.D., Ph.D. [address] [place] [phone] documented as of this encounter Visit Diagnoses Diagnosis Neutropenia Drug Induced (HCC) - Primary documented in this encounter Care Teams Magistrate Assistant Relationship Specialty Start Date End Date Elsewhere, Pcp PCP - General Internal Medicine 07/08/21 documented as of this encounter
--- OUTSIDE RECORDS SUMMARY | 2022-04-04 14:12 | XMS_ITS | Encounter Summary ---
:1975 Author Organization [facility] Address [address] [place] [address] Care Team Providers Name Role Phone Elsewhere, Pcp Primary Care Provider Unavailable Reason for Visit Reason Comments Labs Only Encounter Details Date Type Department Care Team Description 09/13/2021 Clinical Communication Department of Mamie Rees Only Oncology in D, M.S.N., R.N. [place], [place] [address] [facility] [address] [place] [phone] Social History Tobacco Use Types Packs/Day Years [...] Oncology Walter Barnhart M.D., Ph.D. [address] [place] [phone] documented as of this encounter Procedures Procedure [...] 6 OTHER (SPECIFY Antigen 125 (Ca IN NURSERY TECHNICIAN) 125) Comment: <=38 EXT Immunoglobulin A (IgA), S OTHER (SPECIFY IN NURSERY TECHNICIAN) EXT Immunoglobulin D (IgD), S OTHER (SPECIFY IN NURSERY TECHNICIAN) EXT Immunoglobulin E (IgE), S OTHER (SPECIFY IN NURSERY TECHNICIAN) EXT Immunoglobulin G (IgG), S OTHER (SPECIFY IN NURSERY TECHNICIAN) EXT Immunoglobulin M (IgM), S OTHER (SPECIFY IN NURSERY TECHNICIAN) Specimen (Source) Anatomical Collection Method Collection Time Re ceived Time Location / / Volume Laterality Blood 09/12/2021 4:00 PM CDT Narrative This result has an attachment that is no t available. Historical Provider LAB BLOOD NON ADD-ON Performing Organization Address City/State/[facility] Code Phon e Number OTHER (SPECIFY IN NURSERY TECHNICIAN) OTHER (SPECIFY IN NURSERY TECHNICIAN) N/A (ABNORMAL) Hematology/Oncology - Blood, External Lab Results (09/12/2021 4:00 PM CDT) Patholo gist Method Time Signature EXT AST 38 (A) 12 - 35 OTHER (SPECIFY IN NURSERY TECHNICIAN) EXT ALT 26 4 - 35 OTHER (SPECIFY IN NURSERY TECHNICIAN) EXT Bilirubin, 1.2 0.1 - 1.5 OTHER Total mg/dL (SPECIFY IN NURSERY TECHNICIAN) EXT Creatinine 0.5 0.5 - 1.5 OTHER mg/dL (SPECIFY IN NURSERY TECHNICIAN) EXT Immunoglobulin OTHER A (IgA), S (SPECIFY IN NURSERY TECHNICIAN) EXT Immunoglobulin OTHER D (IgD), S (SPECIFY IN NURSERY TECHNICIAN) EXT Immunoglobulin OTHER E (IgE), S (SPECIFY IN NURSERY TECHNICIAN) EXT Immunoglobulin OTHER G (IgG), S (SPECIFY IN NURSERY TECHNICIAN) EXT Immunoglobulin OTHER M (IgM), S (SPECIFY IN NURSERY TECHNICIAN) Specimen (Source) Anatomical Collection Method Collection Time Re ceived Time Location / / Volume Laterality Blood 09/12/2021 4:00 PM CDT Historical Provider LAB BLOOD NON ADD-ON Performing Organization Address City/State/ZIP Code Phon e Number OTHER (SPECIFY IN NURSERY TECHNICIAN) OTHER (SPECIFY IN NURSERY TECHNICIAN) N/A Hematology/Oncology - Blood, External Lab Results (09/12/2021 4:00 PM CDT) [facility] gist Method Time Signature EXT Hemoglobin 13.6 12.0 - OTHER 15.5 (SPECIFY IN NURSERY TECHNICIAN) EXT Leukocytes 5.44 5.00 - OTHER 10.00 (SPECIFY IN NURSERY TECHNICIAN) EXT Absolute 2.80 1.70 - OTHER Neutrophil Count 7.00 (SPECIFY IN NURSERY TECHNICIAN) EXT Platelet Count 368 150 - 450 OTHER (SPECIFY IN NURSERY TECHNICIAN) EXT Immunoglobulin OTHER A (IgA), S (SPECIFY IN NURSERY TECHNICIAN) EXT Immunoglobulin OTHER D (IgD), S (SPECIFY IN NURSERY TECHNICIAN) EXT Immunoglobulin OTHER E (IgE), S (SPECIFY IN NURSERY TECHNICIAN) EXT Immunoglobulin OTHER G (IgG), S (SPECIFY IN NURSERY TECHNICIAN) EXT Immunoglobulin OTHER M (IgM), S (SPECIFY IN NURSERY TECHNICIAN) Specimen (Source) Anatomical Collection Method Collection Time Re ceived Time Location / / Volume Laterality Blood 09/12/2021 4:00 PM CDT Historical Provider LAB BLOOD NON ADD-ON Performing Organization Address City/State/ZIP Code Phon e Number OTHER (SPECIFY IN NURSERY TECHNICIAN) OTHER (SPECIFY IN NURSERY TECHNICIAN) N/A documented in this encounter Visit Diagnoses Not on filedocumented in this encounter Care Teams College Football Coach Relationship Specialty Start Date End Date Elsewhere, Pcp PCP - General Internal Medicine 07/08/21 documented as of this encounter
--- OUTSIDE RECORDS SUMMARY | 2022-04-04 14:12 | XMS_ITS | Encounter Summary ---
:1975 Author Organization [facility] Address [address] [place] [address] Care Team Providers Name Role Phone Elsewhere, [...] [place] DEXAMETHASONE SODIUM PHOS Ph.D. [address] [facility] [address] [place] [phone] Referral ID Status Reason Start Date Expiration Date Visits V isits Requested Authorized [id number] Authorized 02/17/2021 02/17/2022 12 12 Encounter Details Date Type Department Care Team Description 07/08/2021 Hospital Encounter Department of Marychuy Kapoor Neoplasm Of Ovary Laterality Unknown (HCC); Laboratory Medicine M, FLIGHT NURSE, C.N.P., Neut ropenia Drug Induced ([facility]) [facility] [address] [facility] [address] [place] [phone] Social History Tobacco Use Types Packs/Day Years [...] Sig Dispensed Refills Start Date End Date rigznva-drhl-pmnsf-oreg- Take 1 tablet by 0 capryl 100 [...] Office Visit Oncology Walter Barnhart M.D., Ph.D. [address] [place] [phone] documented as of this encounter Procedures Procedure Name Priority Date/Time Associated Comments Diagnosis CBC CHEMO - NO ALERTS Routine 07/08/2021 11:21 Malignant Neopl asm Results for this AM FIRE PROTECTION ENGINEERING TECHNICIAN Of Ovary procedure are i n Laterality Unknown the resul ts (HCC) section. Neutropenia Drug Induced (HCC) CANCER AG 125 (CA 125), Routine 07/08/2021 11:21 Malignant Juan plasm Results for this S AM FIRE PROTECTION ENGINEERING TECHNICIAN Of Ovary procedure are i n Laterality Unknown the resul ts (HCC) section. Neutropenia Drug Induced (HCC) ASPARTATE Routine 07/08/2021 11:21 Malignant Neoplasm Resul ts for this AMINOTRANSFERASE (AST), AM FIRE PROTECTION ENGINEERING TECHNICIAN Of Ovary proc edure are in S/P Laterality Unknown the resul ts (HCC) section. Neutropenia Drug Induced (HCC) CREATININE WITH EGFR, Routine 07/08/2021 11:21 Malignant Neopl asm Results for this S/P AM FIRE PROTECTION ENGINEERING TECHNICIAN Of Ovary procedure are i n Laterality Unknown the resul ts (HCC) section. Neutropenia Drug Induced (HCC) BILIRUBIN, TOT, S/P Routine 07/08/2021 11:21 Malignant Neoplas m Results for this AM FIRE PROTECTION ENGINEERING TECHNICIAN Of Ovary procedure are i n Laterality Unknown the resul ts (HCC) section. Neutropenia Drug Induced (HCC) documented in this encounter Results Creatinine with Estimated GFR (07/08/2021 11:21 AM FIRE PROTECTION ENGINEERING TECHNICIAN) P athologist Signature Creatinine 0.65 0.59 - 07/08/2021 NPRG 1.04 mg/dL 12:51 PM FIRE PROTECTION ENGINEERING TECHNICIAN eGFR-Black/Afric >90 >=60 07/08/2021 NPRG an [place] mL/min/BSA 12:51 PM FIRE PROTECTION ENGINEERING TECHNICIAN Comment: ----ADDITIONAL INFORMATION---- Estimated GFR calculated using the 2009 CKD_EPI creatinine equation. eGFR Non-Black/ >90 >=60 mL/min/BSA 07/08/2021 12:51 PM FIRE PROTECTION ENGINEERING TECHNICIAN NPRG Comment: ----ADDITIONAL INFORMATION---- Estimated GFR calculated using the 2009 CKD_EPI creatinine equation. Specimen Anatomical Collection Method Collection Time Receive d Time (Source) Location / / Volume Laterality Blood (Blood, 07/08/2021 11:21 07/08/2021 Venous) AM FIRE PROTECTION ENGINEERING TECHNICIAN 12:02 PM FIRE PROTECTION ENGINEERING TECHNICIAN Marychuy Kapoor APRN, C.N.P., M.S.N. LAB BLOOD ADD-ON Performing Organization Address City/State/ZIP Code Phon e Number [facility]- [address] [place] [address] [place] [address] [place] [address] (ABNORMAL) CBC, Chemotherapy, No Alerts (07/08/2021 11:21 AM FIRE PROTECTION ENGINEERING TECHNICIAN) Analysis Performed At Patho logist Time Signature Hemoglobin 11.3 (L) 11.6 - 07/08/2021 NPRG 15.0 g/dL 12:20 PM FIRE PROTECTION ENGINEERING TECHNICIAN Platelet Count 418 (H) 157 - 371 07/08/2021 NPRG x10(9)/L 12:20 PM FIRE PROTECTION ENGINEERING TECHNICIAN Leukocytes 4.6 3.4 - 9.6 07/08/2021 NPRG x10(9)/L 12:20 PM FIRE PROTECTION ENGINEERING TECHNICIAN Neutrophils 2.09 1.56 - 07/08/2021 NPRG 6.45 12:20 PM FIRE PROTECTION ENGINEERING TECHNICIAN x10(9)/L Specimen Anatomical Collection Method Collection Time Receive d Time (Source) Location / / Volume Laterality Blood (Blood, 07/08/2021 11:21 07/08/2021 Venous) AM FIRE PROTECTION ENGINEERING TECHNICIAN 12:02 PM FIRE PROTECTION ENGINEERING TECHNICIAN Marychuy Kapoor APRN, C.N.P., M.S.N. LAB BLOOD ADD-ON Performing Organization Address City/[facility] Phon e Number [address] LAB [address] Bilirubin, Total (07/08/2021 11:21 AM FIRE PROTECTION ENGINEERING TECHNICIAN) P athologist Signature Bilirubin, 0.4 <=1.2 mg/dL 07/08/2021 NPRG Total, P 12:51 PM FIRE PROTECTION ENGINEERING TECHNICIAN Specimen Anatomical Collection Method Collection Time Receive d Time (Source) Location / / Volume Laterality Blood (Blood, 07/08/2021 11:21 07/08/2021 Venous) AM FIRE PROTECTION ENGINEERING TECHNICIAN 12:02 PM FIRE PROTECTION ENGINEERING TECHNICIAN Carly Correa APRN.N.Katie., M.S.N. LAB BLOOD ADD-ON Performing Organization Address City/State/[facility] Phon e Number [address] LAB NPRG [address] AST (Aspartate Aminotransferase) (07/08/2021 11:21 AM FIRE PROTECTION ENGINEERING TECHNICIAN) Patholo gist Method Time Signature Aspartate 35 8 - 43 07/08/2021 NPRG Aminotransferase U/L 12:51 PM FIRE PROTECTION ENGINEERING TECHNICIAN (AST), P Specimen Anatomical Collection Method Collection Time Receive d Time (Source) Location / / Volume Laterality Blood (Blood, 07/08/2021 11:21 07/08/2021 Venous) AM FIRE PROTECTION ENGINEERING TECHNICIAN 12:02 PM FIRE PROTECTION ENGINEERING TECHNICIAN Marychuy Kapoor APRN, C.N.P., M.S.N. LAB BLOOD ADD-ON Performing Organization Address City/State/ZIP Code Phon e Number [facility]- [address] [place] [address] [place] [address] [place] [address] [place] [address] Cancer Antigen 125 (CA 125) (07/08/2021 11:21 AM FIRE PROTECTION ENGINEERING TECHNICIAN) athologist Signature Cancer Ag 125 8 <46 U/mL 07/08/2021 AUST (CA 125), S 10:31 PM FIRE PROTECTION ENGINEERING TECHNICIAN Comment: Biotin has been identified by the daisy wall as a potential interfering substance. ??Higher concentr ations of biotin may be found in multivitamins, hair/nail supple ments, and workout supplements. ??If the result does not [facility] clinical observations, repeat testing after patient [...] Blood (Blood, 07/08/2021 11:21 07/08/2021 Venous) AM FIRE PROTECTION ENGINEERING TECHNICIAN 10:00 PM FIRE PROTECTION ENGINEERING TECHNICIAN Marychuy Kapoor APRN, C.N.P., M.S.N. LAB BLOOD ADD-ON Performing Organization Address City/State/ZIP Code Phon e Number [facility]- [address] [place] [address] [facility] [place], [place] [address] [place] [address] documented in this encounter Visit Diagnoses Diagnosis 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 Care Teams Skimmer Reverberatory Relationship Specialty Start Date End Date Elsewhere, Pcp PCP - General Internal Medicine 07/08/21 documented as of this encounter
--- OUTSIDE RECORDS SUMMARY | 2022-04-04 14:12 | XMS_ITS | Encounter Summary ---
:1975 Author Organization [facility] Address [address] [place] [address] Care Team Providers Name Role Phone Elsewhere, Pcp Primary Care Provider Unavailable Encounter Details Date Type Department Care Team Description 10/14/2021 Specialty Pharmacy [facility] [place], Malignant Neoplasm Pharmacy Azucena Montes De Oca, Of Ovary Laterality [address] Pharm.D., R.P h. Unknown (HCC) [address] [facility] (Primary Dx) [place] [phone] [phone] Social History Tobacco Use Types Packs/Day Years [...] to males. ??? Educational resource/decision support tools: https://www.Jiujiuweikang/en/sami and Patient SupportProgram ???My Start, My Way??? Kit. Also, Counselytics The patient was attentive and ready to learn. They verbalized understanding and are in agreement with the plan for taking this new regimen. They were advised to contact the prescriber concerning symptoms or side effects as mentioned above. The importance of adherence to the treatment plan was emphasized in regard to success of therapy. Allergy, past sensitivity, medication and health history considered at intake counselor (renal function if available). To optimize [...] apparent. Patient is eligible for service through [facility]. 2. Potential drug-drug interactions No [...] The patient has decided to use the [facility] Specialty Pharmacy. This patient does not meet the definition of high risk by MCSP definition. Follow-up: 1 month(s) Azucena Km Malagon, R.Ph. documented in this encounter Plan of Treatment Upcoming Encounters Date Type Specialty Care Team Description 04/11/2022 Clinical Communication Admitting/Central Scheduling 04/13/2022 Office Visit Oncology Walter Barnhart M.D., Ph.D. [address] [place] [phone] documented as of this encounter Visit Diagnoses Diagnosis Malignant Neoplasm Of Ovary Laterality U nknown (HCC) - Primary documented in this encounter Care Teams Irrigation Tax Assessor Collector Relationship Specialty Start Date End Date Elsewhere, Pcp PCP - General Internal Medicine 07/08/21 documented as of this encounter
--- OUTSIDE RECORDS SUMMARY | 2022-04-04 14:12 | XMS_ITS | Encounter Summary ---
:1975 Author Organization [facility] Address [address] [place] [address] Care Team Providers Name Role Phone Elsewhere, [...] [place] DEXAMETHASONE SODIUM PHOS Ph.D. [address] [facility] [address] [place] [phone] Referral ID Status Reason Start Date Expiration Date Visits V isits Requested Authorized [id number] Authorized 02/17/2021 02/17/2022 12 12 Encounter Details Date Type Department Care Team Description 07/11/2021 Office Visit Department of Marychuy Kapoor Malignan t Neoplasm Of Ovary Laterality Unknown (HCC); Oncology in PUBLISHING SPECIALIST, C.N.P., Neutropenia Dr hannah Lorenzo (HCC) [place], [place] M.S.N. [address] [place] [address] [address] [place] [phone] Social History Tobacco Use Types Packs/Day Years [...] Comments Blood Pressure 149/97 07/11/2021 9:41 AM MECHANICAL PRODUCT DESIGN ENGINEER Pulse 73 07/11/2021 9:41 AM MECHANICAL PRODUCT DESIGN ENGINEER Temperature 36.6 ??C (97.9 ??F) 07/11/2021 9:41 AM MECHANICAL PRODUCT DESIGN ENGINEER Respiratory Rate 16 07/11/2021 9:41 AM MECHANICAL PRODUCT DESIGN ENGINEER Oxygen Saturation 100% 07/11/2021 9:41 AM MECHANICAL PRODUCT DESIGN ENGINEER Inhaled Oxygen Concentration - - Weight 55.7 kg (122 lb 12.7 oz) 07/11/2021 9:41 AM MECHANICAL PRODUCT DESIGN ENGINEER Height 169.2 cm (5' 6.61) 07/11/2021 9:41 AM MECHANICAL PRODUCT DESIGN ENGINEER Body Mass Index 19.46 07/11/2021 9:41 AM MECHANICAL PRODUCT DESIGN ENGINEER documented in this encounter Progress Notes Marychuy Kapoor APRN, C.N.P., M.S.N. - 07/11/2021 9:40 AM CST CHIEF COMPLAINT/PUPROSE OF VISIT: Ms. Yang is a 45 y.o. woman with stage IVB high-grade serous ovarian cancer Collaborating provider: Dr. Walter Barnhart ([phone]) HISTORY OF PRESENT ILLNESS: Ms. Yang is a very pleasant 45 y.o. woman with the following oncologic history: Oncology History Malignant Neoplasm Of Ovary Laterality Unknown (HCC) Genetic Testing and Tumor Genotyping Genetic testing in 2020; [facility] with MyRisk panel from [facility]. Variant of Uncertain Significance (VUS) found in APC gene specifically named [id number] aka [id number]). Somatic testing ordered 06/22/21 02/03/2021 Other Ultrasound [...] Chemotherapy CARBOplatin AUC 6 / PACLitaxel ( SBA BUSINESS DEVELOPMENT OFFICER ) Start Date: 02/25/2021 Completed 3 cycles [...] Chemotherapy CARBOplatin AUC 6 / PACLitaxel ( SBA BUSINESS DEVELOPMENT OFFICER ) Start Date: 02/25/2021 Adjuvant chemotherapy, cycles [...] plan; patient expressed understanding of the content. ANICAL PRODUCT DESIGN ENGINEER documented in this encounter Plan of Treatment Upcoming Encounters Date Type Specialty Care Team Description 04/11/2022 Clinical Communication Admitting/Central Scheduling 04/13/2022 Office Visit Oncology Walter Barnhart M.D., Ph.D. [address] [place] [phone] documented as of this encounter Visit Diagnoses Diagnosis 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 Care Teams Receipt And Report Clerk Relationship Specialty Start Date End Date Elsewhere, Pcp PCP - General Internal Medicine 07/08/21 documented as of this encounter
--- OUTSIDE RECORDS SUMMARY | 2022-04-04 14:12 | XMS_ITS | Encounter Summary ---
:1975 Author Organization [facility] Address [address] [place] [address] Care Team Providers Name Role Phone Elsewhere, Pcp Primary Care Provider Unavailable Encounter Details Date Type Department Care Team Description 08/05/2021 Clinical Communication Department of Oncology Candie Monahan in [facility] [place] [address] [facility] [address] [place] [phone] Social History Tobacco Use Types Packs/Day Years [...] Monahan APRN, C.N.P. - 08/05/2021 1:45 PM BANQUET DIRECTOR I returned a call to Ms. Yang [...] can look at the imaging with him. UET DIRECTOR documented in this encounter Plan of Treatment Upcoming Encounters Date Type Specialty Care Team Description 04/11/2022 Clinical Communication Admitting/Central Scheduling 04/13/2022 Office Visit Oncology Walter Barnhart M.D., Ph.D. [address] [place] [phone] documented as of this encounter Visit Diagnoses Not on filedocumented in this encounter Care Teams Counter Weigher Relationship Specialty Start Date End Date Elsewhere, Pcp PCP - General Internal Medicine 07/08/21 documented as of this encounter
--- OUTSIDE RECORDS SUMMARY | 2022-04-04 14:12 | XMS_ITS | Encounter Summary ---
:1975 Author Organization [facility] Address [address] [place] [address] Care Team Providers Name Role Phone Unavailable Primary Care Provider Unavailable Encounter Details Date Type Department Care Team Description 06/24/2021 Clinical Communication Department of Denisha Oviedo Obstetrics and [facility] Gyne[facility] in [address] [place] [address] [place] [phone] [place], [place] [phone] (Work) [phone] Social History Tobacco Use Types Packs/Day Years [...] this encounter Miscellaneous Notes Telephone Encounter - Yuliana Pro - 06/24/2021 3:08 PM CST Relayed message to Path sent out COLLECTOR Telephone Encounter - Yuliana Pro - 06/24/2021 12:23 PM CST Path send away called and was asking which biopsy they want us to use. It is not listed on the [facility] form. Let me know and I will call them back. Thanks! Yuliana COLLECTOR documented in this encounter Plan of Treatment Upcoming Encounters Date Type Specialty Care Team Description 04/11/2022 Clinical Communication Admitting/Central Scheduling 04/13/2022 Office Visit Oncology Walter Barnhart M.D., Ph.D. [address] [place] [address] documented as of this encounter Visit Diagnoses Not on filedocumented in this encounter
--- OUTSIDE RECORDS SUMMARY | 2022-04-04 14:12 | XMS_ITS | Encounter Summary ---
:1975 Author Organization [facility] Address [address] [place] [address] Care Team Providers Name Role Phone Elsewhere, [...] 6MG [place] DEXAMETHASONE SODIUM PHOS Ph.D. [address] [place] [address] [address] [place] [phone] Referral ID Status Reason Start Date Expiration Date Visits V isits Requested Authorized [id number] Authorized 02/17/2021 02/17/2022 12 12 Encounter Details Date Type Department Care Team Description 07/11/2021 Infusion Department of Oncology Marychuy Kapoor, Malignant Neoplasm Of Ovary Laterality Unknown (HCC) (Primary Dx); in [facility] rojelio HOUSEHOLD MANAGER, C.N.P., Neutropenia Drug Induced (HC C) [address] [facility] M.S.N. [place], [place] [address] [place] [phone] [place], [place] [phone] (Wo rk) Social History Tobacco Use Types [...] Oncology Walter Barnhart M.D., Ph.D. [address] [place] [phone] documented as of this encounter Visit Diagnoses Diagnosis Malignant Neoplasm Of Ovary Laterality U nknown (HCC) - Primary Neutropenia Drug Induced (HCC) documented in this encounter Administered Medications Inactive Administered Medications - up to 3 most recent administrations Medication Order MAR Action Action Date Dose Rate Site CARBOplatin 700 mg in NaCl New Bag 07/11/2021 3:03 PM GEODESIST 700 mg 690 mL/hr 0.9% 345 mL IVPB (PARAPLATIN) 700 mg (rounded from 697.8 mg, Target AUC = 6), intravenous, at 690 mL/hr, Administer over 30 Minutes, Once, On Sun07/11/21 at 1445, For 1 dose dexAMETHasone injection 8 mg (DECADRON) Given 07/11/2021 11:22 AM GEODESIST 8 mg 8 mg, intravenous, Once, On Sun07/11/21 at 1115, For 1 dose, Give prior to PACLitaxel diphenhydrAMINE 50 mg in NaCl 0.9% New Bag 07/11/2021 11:44 AM GEODESIST 50 mg 204 mL/hr IVPB (BENADRYL) 50 mg, intravenous, at 204 mL/hr, Administer over 15 Minutes, Once, On Sun07/11/21 at 1115, For 1 dose, Pre taxol. ivpb vs ivp to help with symptoms famotidine injection 20 mg (PEPCID) Given 07/11/2021 11:22 AM GEODESIST 20 mg 20 mg, intravenous, Once, On [...] mg New Bag 07/11/2021 11:25 A M GEODESIST 16 mg 232 mL/hr (ZOFRAN) 16 mg, intravenous, at 232 mL/hr, Administer over 15 Minutes, Once, On Sun07/11/21 at 1115, For 1 dose PACLitaxeL 288 mg in NaCl 0.9% New Bag 07/11/2021 12:31 PM GEODESIST 288 mg 108 mL/hr (non-PVC) 323 mL IVPB (TAXOL) 288 mg (rounded from 285.25 mg = 175 mg/m2 ? 1.63 m2 Treatment Plan BSA from Measured weight), intravenous, at 108 mL/hr, Administer over 3 Hours, Once, On Sun07/11/21 at 1145, For 1 dose, Administer via 0.22 micron in-line filter. documented in this encounter Care Teams National Accounts Sales Relationship Specialty Start Date End Date Elsewhere, Pcp PCP - General Internal Medicine 07/08/21 documented as of this encounter
--- OUTSIDE RECORDS SUMMARY | 2022-04-04 14:13 | XMS_ITS | Encounter Summary ---
:1975 Author Organization [facility] Address [address] [place] [address] Care Team Providers Name Role Phone Unavailable Primary Care Provider Unavailable Reason for Visit Reason Comments Moving Treatment Forward Encounter Details Date Type Department Care Team Description 05/20/2021 Clinical Communication Department of Walter Barnhart Treatment Oncology in SKelly, Ph.D. Forward [place], [facility] [place] [address] [place], [place] [address] [facility] [address] [place], [place] [phone] (Work) [phone] Social History Tobacco Use Types Packs/Day Years [...] Admitting/Central Scheduling 04/13/2022 Office Visit Oncology Walter Barnhrat M.D., Ph.D. [address] [place] [phone] documented as of this encounter Visit Diagnoses Not on filedocumented in this encounter
--- OUTSIDE RECORDS SUMMARY | 2022-04-04 14:13 | XMS_ITS | Encounter Summary ---
:1975 Author Organization [facility] Address [address] [place] [address] Care Team Providers Name Role Phone Unavailable Primary Care Provider Unavailable Encounter Details Date Type Department Care Team Description 05/16/2021 Orders Only Department of Obstetrics and [facility], Darek tucker L, [facility] [address] [facility] [address] [place] [phone] (Wo rk) Social History Tobacco Use Types [...] Office Visit Oncology Walter Barnhart M.D., Ph.D. [address] [place] [phone] documented as of this encounter Visit Diagnoses Not on filedocumented in this encounter
--- OUTSIDE RECORDS SUMMARY | 2022-04-04 14:13 | XMS_ITS | Encounter Summary ---
:1975 Author Organization [facility] Address [address] [place] [address] Care Team Providers Name Role Phone Unavailable [...] [place] DEXAMETHASONE SODIUM PHOS Ph.D. [address] [facility] [address] [place] [phone] Referral ID Status Reason Start Date Expiration Date Visits V isits Requested Authorized [id number] Authorized 02/17/2021 02/17/2022 12 12 Encounter Details Date Type Department Care Team Description 05/29/2021 Hospital Encounter Department of Marychuy Kapoor Neoplasm Of Ovary Laterality Unknown (HCC); Laboratory Medicine M, PARAGLIDING INSTRUCTOR, C.N.P., Neut ropenia Drug [facility]) [facility] [address] [facility] [address] [place] [phone] Social History Tobacco Use Types Packs/Day Years [...] Sig Dispensed Refills Start Date End Date eqxkcyf-zhrm-emquk-oreg- Take 1 tablet by 0 capryl 100 [...] Visit Oncology Walter Barnhart M.D., Ph.D. [address] [place] [phone] documented as of this encounter Procedures Procedure Name Priority Date/Time Associated Comments Diagnosis CBC CHEMO - NO ALERTS Routine 05/29/2021 10:07 Malignant Neopl asm Results for this AM COUNTER CUTTER Of Ovary procedure are i n Laterality Unknown the resul ts (HCC) section. Neutropenia Drug Induced (HCC) CANCER AG 125 (CA 125), Routine 05/29/2021 10:07 Malignant Juan plasm Results for this S AM COUNTER CUTTER Of Ovary procedure are i n Laterality Unknown the resul ts (HCC) section. Neutropenia Drug Induced (HCC) ASPARTATE Routine 05/29/2021 10:07 Malignant Neoplasm Resul ts for this AMINOTRANSFERASE (AST), AM COUNTER CUTTER Of Ovary proc edure are in S/P Laterality Unknown the resul ts (HCC) section. Neutropenia Drug Induced (HCC) CREATININE WITH EGFR, Routine 05/29/2021 10:07 Malignant Neopl asm Results for this S/P AM COUNTER CUTTER Of Ovary procedure are i n Laterality Unknown the resul ts (HCC) section. Neutropenia Drug Induced (HCC) BILIRUBIN, TOT, S/P Routine 05/29/2021 10:07 Malignant Neoplas m Results for this AM COUNTER CUTTER Of Ovary procedure are i n Laterality Unknown the resul ts (HCC) section. Neutropenia Drug Induced (HCC) documented in this encounter Results Creatinine with Estimated GFR (05/29/2021 10:07 AM COUNTER CUTTER) P athologist Signature Creatinine 0.65 0.59 - 05/29/2021 NPRG 1.04 mg/dL 10:45 AM COUNTER CUTTER eGFR-Black/Afric >90 >=60 05/29/2021 NPRG an [place] Leonean mL/min/BSA 10:45 AM COUNTER CUTTER Comment: ----ADDITIONAL INFORMATION---- Estimated GFR calculated using the 2009 CKD_EPI creatinine equation. eGFR Non-Black/ >90 >=60 mL/min/BSA 05/29/2021 10:45 AM COUNTER CUTTER NPRG Comment: ----ADDITIONAL INFORMATION---- Estimated GFR calculated using the 2009 CKD_EPI creatinine equation. Specimen Anatomical Collection Method Collection Time Receive d Time (Source) Location / / Volume Laterality Blood (Blood, 05/29/2021 10:07 05/29/2021 Venous) AM COUNTER CUTTER 10:22 AM COUNTER CUTTER Marychuy Kapoor APRN, C.N.P., M.S.N. LAB BLOOD ADD-ON Performing Organization Address City/State/ZIP Code Phon e Number [facility]- [address] [place], [place] [address] [facility] [place] [address] [place] [address] [address] [facility] (ABNORMAL) CBC, Chemotherapy, No Alerts (05/29/2021 10:07 AM COUNTER CUTTER) Analysis Performed At Patho logist Time Signature Hemoglobin 10.3 (L) 11.6 - 05/29/2021 NPRG 15.0 g/dL 10:40 AM COUNTER CUTTER Platelet Count 657 (H) 157 - 371 05/29/2021 NPRG x10(9)/L 10:40 AM COUNTER CUTTER Leukocytes 7.7 3.4 - 9.6 05/29/2021 NPRG x10(9)/L 10:40 AM COUNTER CUTTER Neutrophils 2.35 1.56 - 05/29/2021 NPRG 6.45 10:40 AM COUNTER CUTTER x10(9)/L Specimen Anatomical Collection Method Collection Time Receive d Time (Source) Location / / Volume Laterality Blood (Blood, 05/29/2021 10:07 05/29/2021 Venous) AM COUNTER CUTTER 10:22 AM COUNTER CUTTER Carly Correa APRN.N.P., M.S.N. LAB BLOOD ADD-ON Performing Organization Address City/State/ZIP Code Phon e Number [address] [address] [place] [address] Bilirubin, Total (05/29/2021 10:07 AM COUNTER CUTTER) P athologist Signature Bilirubin, <0.2 <=1.2 mg/dL 05/29/2021 NPRG Total, P 10:45 AM COUNTER CUTTER Specimen Anatomical Collection Method Collection Time Receive d Time (Source) Location / / Volume Laterality Blood (Blood, 05/29/2021 10:07 05/29/2021 Venous) AM COUNTER CUTTER 10:22 AM COUNTER CUTTER Marychuy Kapoor APRN, Carly.N.P., M.S.N. LAB BLOOD ADD-ON Performing Organization Address City/State/ZIP Code Phon e Number [address] [address] [place] [address] AST (Aspartate Aminotransferase) (05/29/2021 10:07 AM COUNTER CUTTER) Patholo gist Method Time Signature Aspartate 32 8 - 43 05/29/2021 NPRG Aminotransferase U/L 10:45 AM COUNTER CUTTER (AST), P Specimen Anatomical Collection Method Collection Time Receive d Time (Source) Location / / Volume Laterality Blood (Blood, 05/29/2021 10:07 05/29/2021 Venous) AM COUNTER CUTTER 10:22 AM COUNTER CUTTER Marychuy Kapoor APRN, C.N.P., M.S.N. LAB BLOOD ADD-ON Performing Organization Address City/State/ZIP Code Phon e Number [facility]- Formerly named [facility] [address] [place] [address] [address] [place] [facility] NPRG [place] [phone] Cancer Antigen 125 (CA 125) (05/29/2021 10:07 AM COUNTER CUTTER) P athologist Signature Cancer Ag 125 27 <46 U/mL 05/30/2021 [facility] (CA 125), S 8:35 AM COUNTER CUTTER Comment: Biotin has been identified by the [...] (Blood, 05/29/2021 10:07 05/29/2021 8:31 Venous) AM COUNTER CUTTER PM COUNTER CUTTER Marychuy Kapoor APRN, C.N.P., M.S.N. 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
--- OUTSIDE RECORDS SUMMARY | 2022-04-04 14:13 | XMS_ITS | Encounter Summary ---
:[address] [facility] Address [address] [place] [address] Care Team Providers Name Role Phone Unavailable Primary Care Provider Unavailable Encounter Details Date Type Department Care Team Description 05/20/2021 Orders Only Department of Obstetrics Zuri, and Gynecology in [place] C.N.P., M.S. [address] [facility] [address] [place] [address] [place], [place] [phone] (Wo rk) Social History Tobacco Use Types [...] Office Visit Oncology Walter Barnhart M.D., Ph.D. [address] [place] [phone] documented as of this encounter Visit Diagnoses Not on filedocumented in this encounter
--- OUTSIDE RECORDS SUMMARY | 2022-04-04 14:13 | XMS_ITS | Encounter Summary ---
:1975 Author Organization [facility] Address [address] [place] [address] Care Team Providers Name Role Phone Unavailable Primary Care Provider Unavailable Reason for Visit Reason Comments Intake Assessment Encounter Details Date Type Department Care Team Description 06/16/2021 Clinical Communication Department of Marychuy Kapoor Assessment Oncology in [facility], C.N.P., M.S.N. [place] [address] [address] [facility] [address] [place] [phone] Social History Tobacco Use Types Packs/Day Years [...] - 06/16/2021 9:40 AM CST Intake done GN TECHNICIAN documented in this encounter Plan of Treatment Upcoming Encounters Date Type Specialty Care Team Description 04/11/2022 Clinical Communication Admitting/Central Scheduling 04/13/2022 Office Visit Oncology Walter Barnhart M.D., Ph.D. [address] [place] [phone] documented as of this encounter Visit Diagnoses Not on filedocumented in this encounter
--- OUTSIDE RECORDS SUMMARY | 2022-04-04 14:13 | XMS_ITS | Encounter Summary ---
:1975 Author Organization [facility] Address [address] [place] [address] Care Team Providers Name Role Phone Unavailable Primary Care Provider Unavailable Encounter Details Date Type Department Care Team Description 05/27/2021 Orders Only Department of Oncology in t[place], [place] C.N.P. [address] [facility] [address] [place] [address] [place], [place] [phone] (Wo rk) Social History Tobacco Use Types [...] Office Visit Oncology Walter Barnhart M.D., Ph.D. [address] [place] [phone] documented as of this encounter Visit Diagnoses Not on filedocumented in this encounter
--- OUTSIDE RECORDS SUMMARY | 2022-04-04 14:13 | XMS_ITS | Encounter Summary ---
:1975 Author Organization [facility] Address [address] [place] [address] Care Team Providers Name Role Phone Unavailable [...] [place] DEXAMETHASONE SODIUM PHOS Ph.D. [address] [facility] [address] [place] [phone] Referral ID Status Reason Start Date Expiration Date Visits V isits Requested Authorized [id number] Authorized 02/17/2021 02/17/2022 12 12 Encounter Details Date Type Department Care Team Description 06/19/2021 Hospital Encounter Department of Marychuy Kapoor Neoplasm Of Ovary Laterality Unknown (HCC); Laboratory Medicine M, DENNY, C.N.P., Neut ropenia Drug In[facility]) [facility] [address] [facility] [address] [place] [phone] Social History Tobacco Use Types Packs/Day Years [...] Sig Dispensed Refills Start Date End Date mvyghys-ksmv-ivbdd-oreg- Take 1 tablet by 0 capryl 100 [...] Office Visit Oncology Walter Barnhart M.D., Ph.D. [address] [place] [phone] documented as of this encounter Procedures Procedure Name Priority Date/Time Associated Comments Diagnosis CBC CHEMO - NO ALERTS Routine 06/19/2021 10:06 Malignant Neopl asm Results for this AM PRESS SMITH HELPER Of Ovary procedure are i n Laterality Unknown the resul ts (HCC) section. Neutropenia Drug Induced (HCC) CANCER AG 125 (CA 125), Routine 06/19/2021 10:06 Malignant Juan plasm Results for this S AM PRESS SMITH HELPER Of Ovary procedure are i n Laterality Unknown the resul ts (HCC) section. Neutropenia Drug Induced (HCC) ASPARTATE Routine 06/19/2021 10:06 Malignant Neoplasm Resul ts for this AMINOTRANSFERASE (AST), AM PRESS SMITH HELPER Of Ovary proc edure are in S/P Laterality Unknown the resul ts (HCC) section. Neutropenia Drug Induced (HCC) CREATININE WITH EGFR, Routine 06/19/2021 10:06 Malignant Neopl asm Results for this S/P AM PRESS SMITH HELPER Of Ovary procedure are i n Laterality Unknown the resul ts (HCC) section. Neutropenia Drug Induced (HCC) BILIRUBIN, TOT, S/P Routine 06/19/2021 10:06 Malignant Neoplas m Results for this AM PRESS SMITH HELPER Of Ovary procedure are i n Laterality Unknown the resul ts (HCC) section. Neutropenia Drug Induced (HCC) documented in this encounter Results Creatinine with Estimated GFR (06/19/2021 10:06 AM PRESS SMITH HELPER) P athologist Signature Creatinine 0.77 0.59 - 06/19/2021 NPRG 1.04 mg/dL 10:43 AM PRESS SMITH HELPER eGFR-Black/Afric >90 >=60 06/19/2021 NPRG an Mal[place]ian mL/min/BSA 10:43 AM PRESS SMITH HELPER Comment: ----ADDITIONAL INFORMATION---- Estimated GFR calculated using the 2009 CKD_EPI creatinine equation. eGFR Non-Black/ >90 >=60 mL/min/BSA 06/19/2021 10:43 AM PRESS SMITH HELPER NPRG Comment: ----ADDITIONAL INFORMATION---- Estimated GFR calculated using the 2009 CKD_EPI creatinine equation. Specimen Anatomical Collection Method Collection Time Receive d Time (Source) Location / / Volume Laterality Blood (Blood, 06/19/2021 10:06 06/19/2021 Venous) AM PRESS SMITH HELPER 10:10 AM PRESS SMITH HELPER Marychuy Kapoor APRN, C.N.P., M.S.N. LAB BLOOD ADD-ON Performing Organization Address City/State/ZIP Code Phon e Number [facility]- [address] [place], [place] [address] [place] [address] [place] [address] (ABNORMAL) CBC, Chemotherapy, No Alerts (06/19/2021 10:06 AM PRESS SMITH HELPER) Analysis Performed At Patho logist Time Signature Hemoglobin 11.3 (L) 11.6 - 06/19/2021 NPRG 15.0 g/dL 10:32 AM PRESS SMITH HELPER Platelet Count 340 157 - 371 06/19/2021 NPRG x10(9)/L 10:32 AM PRESS SMITH HELPER Leukocytes 3.7 3.4 - 9.6 06/19/2021 NPRG x10(9)/L 10:32 AM PRESS SMITH HELPER Neutrophils 1.27 (L) 1.56 - 06/19/2021 NPRG 6.45 10:32 AM PRESS SMITH HELPER x10(9)/L Specimen Anatomical Collection Method Collection Time Receive d Time (Source) Location / / Volume Laterality Blood (Blood, 06/19/2021 10:06 06/19/2021 Venous) AM PRESS SMITH HELPER 10:10 AM PRESS SMITH HELPER Marychuy Kapoor APRN, C.N.P., M.S.N. LAB BLOOD ADD-ON Performing Organization Address City/[facility] Phon e Number [address] Bilirubin, Total (06/19/2021 10:06 AM PRESS SMITH HELPER) P athologist Signature Bilirubin, 0.2 <=1.2 mg/dL 06/19/2021 NPRG Total, P 10:43 AM PRESS SMITH HELPER Specimen Anatomical Collection Method Collection Time Receive d Time (Source) Location / / Volume Laterality Blood (Blood, 06/19/2021 10:06 06/19/2021 Venous) AM PRESS SMITH HELPER 10:10 AM PRESS SMITH HELPER Carly Correa APRN.N.Katie., M.S.N. LAB BLOOD ADD-ON Performing Organization Address City/[facility] Phon e Number [address] LAB NPRG [address] AST (Aspartate Aminotransferase) (06/19/2021 10:06 AM PRESS SMITH HELPER) Patholo gist Method Time Signature Aspartate 36 8 - 43 06/19/2021 NPRG Aminotransferase U/L 10:43 AM PRESS SMITH HELPER (AST), P Specimen Anatomical Collection Method Collection Time Receive d Time (Source) Location / / Volume Laterality Blood (Blood, 06/19/2021 10:06 06/19/2021 Venous) AM PRESS SMITH HELPER 10:10 AM PRESS SMITH HELPER Marychuy Kapoor APRN, C.N.P., M.S.N. LAB BLOOD ADD-ON Performing Organization Address City/State/ZIP Code Phon e Number [facility]- [address] [place], [place] [address] [place] [address] [facility] [address] Cancer Antigen 125 (CA 125) (06/19/2021 10:06 AM PRESS SMITH HELPER) athologist Signature Cancer Ag 125 11 <46 U/mL 06/21/2021 [facility] (CA 125), S 10:54 AM PRESS SMITH HELPER Comment: ----ADDITIONAL INFORMATION---- The testing method is an electrochemilum inescence assay manufactured by [employer] and performed on the Michela system. [...] Blood (Blood, 06/19/2021 10:06 06/21/2021 Venous) AM PRESS SMITH HELPER 10:21 AM PRESS SMITH HELPER Marychuy Kapoor APRN, C.N.P., M.S.N. LAB BLOOD ADD-ON Performing Organization Address City/State/ZIP Code Phon e Number [facility] [address] [place], [place] [address] [facility] [place] [address] Laboratory Medicine and Pathology [address] 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
--- OUTSIDE RECORDS SUMMARY | 2022-04-04 14:13 | XMS_ITS | Encounter Summary ---
:1975 Author Organization [facility] Address [address] [place] [address] Care Team Providers Name Role Phone Unavailable Primary Care Provider Unavailable Reason for Referral Outpatient (Routine) - Closed Specialty Diagnoses / Procedures Referred By Contact Refer red To Contact Oncology Candie Monahan APR N, C.N.P. 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 [address] [place] [phone] Referral ID Status Reason Start Date Expiration Date Visits Requ ested Visits Authorized [id number] Closed 07/22/2021 08/19/2021 1 1 CARDIOLOGY Reason for Visit Outpatient (Routine) - Closed Specialty Diagnoses / Procedures Referred By Contact Refer red To Contact Oncology Walter Barnhart M. D., Ph.D. [facility] [address] [place] [phone] Referral ID Status Reason Start Date Expiration Date Visits Requ ested Visits Authorized [id number] Closed 05/04/2021 05/04/2022 1 1 Encounter Details Date Type Department Care Team Description 05/30/2021 Office Visit Department of Oncology Candie Monahan M alignant Neoplasm Of in [place], [place], C.N.P. Ovary Laterality [place] [address] [place] [address] Unknown (HCC) (Primary [address] [place] [address] Dx) [place] [phone] Social History Tobacco Use Types Packs/Day Years [...] Comments Blood Pressure 117/71 05/30/2021 9:03 AM RN CARDIOLOGY Pulse 68 05/30/2021 9:03 AM RN CARDIOLOGY Temperature 36.3 ??C (97.3 ??F) 05/30/2021 9:03 AM RN CARDIOLOGY Respiratory Rate 14 05/30/2021 9:03 AM RN CARDIOLOGY Oxygen Saturation 100% 05/30/2021 9:03 AM RN CARDIOLOGY Inhaled Oxygen Concentration - - Weight 57 kg (125 lb 10.6 oz) 05/30/2021 9:03 AM RN CARDIOLOGY Height - - Body Mass Index 20.44 05/09/2021 7:27 AM RN CARDIOLOGY documented in this encounter Progress Notes Candie Monahan, CHAIR SPRINGER, C.N.P. - 05/30/2021 9:00 AM CST SUBJECTIVE [...] in 2020; BRCAnalysis with MyRisk panel from [facility]. Variant of Uncertain Significance (VUS) found in APC gene specifically named [id number] aka [id number]). 02/03/2021 Other Ultrasound with bilateral complex solid [...] Chemotherapy CARBOplatin AUC 6 / PACLitaxel ( HIGHWAY ENGINEERING TECHNICIAN ) Start Date: 02/25/2021 Completed 3 [...] Chemotherapy CARBOplatin AUC 6 / PACLitaxel ( HIGHWAY ENGINEERING TECHNICIAN ) Start Date: 02/25/2021 Adjuvant chemotherapy, [...] we need to schedule them here in [place]. ECOG score of 1 PATIENT EDUCATION Ready to learn, no apparent learning barriers were identified; learning preferences include listening. Explained diagnosis and treatment plan; patient expressed understanding of the content. CARDIOLOGY documented in this encounter Plan of Treatment Upcoming Encounters Date Type Specialty Care Team Description 04/11/2022 Clinical Communication Admitting/Central Scheduling 04/13/2022 Office Visit Oncology Walter Barnhart M.D., Ph.D. [address] [place] [address] Scheduled Referrals Name Type Priority Associated Diagnoses Order S [facility] Oncology office Outpatient Referral Routine Expec jace: visit (clinic) 08/01/2021 General; HIGHWAY ENGINEERING TECHNICIAN (Approximate), Expires: 08/01/2022 documented as of this encounter Results CT Abdomen Pelvis with IV Contrast (08/04/2021 11:49 AM RN CARDIOLOGY) Anatomical Region Laterality Modality Abdomen, Pelvis, Abdominal RST LOS, N/A Comp uted Tomography, Computed Abdominal ARZ LOS, Abdominal FLA LOS Aldo ography Specimen (Source) Anatomical Collection Method Collection Time Re ceived Time Location / / Volume Laterality 08/04/2021 11:44 AM RN CARDIOLOGY Impressions 08/04/2021 12:37 PM RN CARDIOLOGY New postoperative changes in the abdomen and pelvis for resection of the patient's ovarian carcinoma. No definite residual/ recurrent or metastatic disease. There is minimal soft tissue nodularity subjacent to the left hemidiaphragm that is technically indeterminant for postoperative change versus a metastatic implant and surveillance would likely be beneficial. Narrative 08/04/2021 12:37 PM RN CARDIOLOGY EXAM: ??CT ABDOMEN PELVIS WITH IV CONTRAST [...] Chest with IV Contrast (08/04/2021 11:49 AM RN CARDIOLOGY) Anatomical Region Laterality Modality Chest, Thoracic RST LOS, Thoracic ARZ N/A Co mputed Tomography, Computed LOS, Thoracic ARZ LOS, Thoracic FLA Rene graphy LOS Specimen (Source) Anatomical Collection Method Collection Time Re ceived Time Location / / Volume Laterality 08/04/2021 11:45 AM RN CARDIOLOGY Impressions 08/04/2021 2:17 PM RN CARDIOLOGY 1. No change since 05/02/2021. 2. Tiny pulmonary nodules are also uncha nged dating back to 02/11/2021, and though indeterminate, are most likely benign. Narrative 08/04/2021 2:17 PM RN CARDIOLOGY EXAM: CT CHEST WITH IV CONTRAST COMPARISON: [...] seen on the sagittal reformatted images ( 5/61), also unchanged since 02/11/2021, and presumably benign. Examination performed in conjunction wit h separately reported CT of the abdomen/pelvis. IMPRESSION: 1. No change since 05/02/2021. 2. Tiny pulmonary nodules are also uncha nged dating back to 02/11/2021, and though indeterminate, are most likely benign. Candie Monahan APRN C.N.P. IMG CT PROCEDURES Creatinine with Estimated GFR (08/04/2021 10:14 AM RN CARDIOLOGY) P athologist Signature Creatinine 0.74 0.59 - 08/04/2021 DTL 1.04 mg/dL 11:11 AM RN CARDIOLOGY eGFR-Non >90 >=60 08/04/2021 DTL Black/ mL/min/BSA 11:11 AM RN CARDIOLOGY [place] Comment: ----ADDITIONAL INFORMATION---- Estimated GFR calculated using the 2009 CKD_EPI creatinine equation. eGFR-Black/ >90 >=60 mL/min/BSA 2021 11:11 AM RN CARDIOLOGY DTL Comment: ----ADDITIONAL INFORMATION---- Estimated GFR calculated using the 2009 CKD_EPI creatinine equation. Specimen Anatomical Collection Method Collection Time Receive d Time (Source) Location / / Volume Laterality Blood (Blood, 08/04/2021 10:14 08/04/2021 Venous) AM RN CARDIOLOGY 10:55 AM RN CARDIOLOGY Candie Monahan APRN, C.N.P. LAB BLOOD ADD-ON Performing Organization Address City/State/ZIP Code Phon e Number [facility] - [address] [place], [place] [address] [facility] [place] [address] [address] (ABNORMAL) CBC, Chemotherapy, No Alerts (08/04/2021 10:14 AM RN CARDIOLOGY) Analysis Performed At Patho logist Time Signature Hemoglobin 13.0 11.6 - 08/04/2021 DTL 15.0 g/dL 10:50 AM RN CARDIOLOGY Platelet Count 262 157 - 371 08/04/2021 DTL x10(9)/L 10:50 AM RN CARDIOLOGY Leukocytes 3.2 (L) 3.4 - 9.6 08/04/2021 DTL x10(9)/L 10:50 AM RN CARDIOLOGY Neutrophils 1.20 (L) 1.56 - 08/04/2021 DTL 6.45 10:50 AM RN CARDIOLOGY x10(9)/L Specimen Anatomical Collection Method Collection Time Receive d Time (Source) Location / / Volume Laterality Blood (Blood, 08/04/2021 10:14 08/04/2021 Venous) AM RN CARDIOLOGY 10:41 AM RN CARDIOLOGY Carly Garcia APRN.N.P. LAB BLOOD ADD-ON Performing Organization Address City/[facility] Phon e Number [facility] - [address] [place], [place] [address] [place] [address] [facility] [address] [facility] Cancer Antigen 125 (CA 125) (08/04/2021 10:14 AM RN CARDIOLOGY) athologist Signature Cancer Ag 125 5 <46 U/mL 08/04/2021 [facility] (CA 125), S 2:33 PM RN CARDIOLOGY Comment: ----ADDITIONAL INFORMATION---- The testing method is [...] (Blood, 08/04/2021 10:14 08/04/2021 1:44 Venous) AM RN CARDIOLOGY PM RN CARDIOLOGY Candie Monahan APRN, C.N.P. LAB BLOOD ADD-ON Performing Organization Address City/[facility]/ZIP [facility] Phon e Number [facility] [address] [place], [place] [address] [facility] [place] [address] Laboratory Medicine and Pathology [address] [place] Bilirubin, Direct (08/04/2021 10:14 AM RN CARDIOLOGY) athologist Signature Bilirubin, <0.2 0.0 - 0.3 08/04/2021 DT Direct, S mg/dL 11:11 AM RN CARDIOLOGY Specimen Anatomical Collection Method Collection Time Receive d Time (Source) Location / / Volume Laterality Blood (Blood, 08/04/2021 10:14 08/04/2021 Venous) AM RN CARDIOLOGY 10:55 AM RN CARDIOLOGY Carly Garcia APRN.N.P. LAB BLOOD ADD-ON Performing Organization Address City/State/ZIP Code Phon e Number [facility] - [address] [place], [place] [address] [facility] [place] [address] [facility] [address] Bilirubin, Total (08/04/2021 10:14 AM RN CARDIOLOGY) athologist Signature Bilirubin, 0.5 <=1.2 mg/dL 08/04/2021 DTL Total, S 11:11 AM RN CARDIOLOGY Specimen Anatomical Collection Method Collection Time Receive d Time (Source) Location / / Volume Laterality Blood (Blood, 08/04/2021 10:14 08/04/2021 Venous) AM RN CARDIOLOGY 10:55 AM RN CARDIOLOGY Candie Monahan APRN, Carly.N.P. LAB BLOOD ADD-ON Performing Organization Address City/State/ZIP Code Phon e Number [facility] - [address] [place], [place] [address] [facility] [place] [address] [facility] [address] AST (Aspartate Aminotransferase) (08/04/2021 10:14 AM RN CARDIOLOGY) [facility] Method Time Signature Aspartate 32 8 - 43 08/04/2021 DTL Aminotransferase U/L 11:11 AM RN CARDIOLOGY (AST), S Specimen Anatomical Collection Method Collection Time Receive d Time (Source) Location / / Volume Laterality Blood (Blood, 08/04/2021 10:14 08/04/2021 Venous) AM RN CARDIOLOGY 10:55 AM RN CARDIOLOGY Candie Monahan APRN, Carly.N.P. LAB BLOOD ADD-ON Performing Organization Address City/State/ZIP Code Phon e Number [facility] - [address] [place], [place] [address] [facility] [place] [address] [facility] [address] ALT (Alanine Aminotransferase) (08/04/2021 10:14 AM RN CARDIOLOGY) Patholo gist Method Time Signature Alanine 23 7 - 45 08/04/2021 DTL Aminotransferase U/L 11:11 AM RN CARDIOLOGY (ALT), S Specimen Anatomical Collection Method Collection Time Receive d Time (Source) Location / / Volume Laterality Blood (Blood, 08/04/2021 10:14 08/04/2021 Venous) AM RN CARDIOLOGY 10:55 AM RN CARDIOLOGY Candie Monahan APRN C.N.P. LAB BLOOD ADD-ON Performing Organization Address City/State/ZIP Code Phon e Number [facility] - [address] [place], [place] [address] [facility] [place] [address] [address] documented in this encounter Visit Diagnoses Diagnosis Malignant Neoplasm Of Ovary Laterality U nknown (HCC) - Primary Malignant Neoplasm Of Ovary Laterality U nknown (HCC) documented in this encounter
--- OUTSIDE RECORDS SUMMARY | 2022-04-04 14:13 | XMS_ITS | Encounter Summary ---
:1975 Author Organization 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 [place], [place] [address] [place] [phone] [place], [place] [phone] (Wo rk) Social History Tobacco Use Types [...] Oncology Walter Barnhart M.D., Ph.D. [address] [place] [phone] documented as of this encounter Visit Diagnoses Diagnosis Malignant Neoplasm Of Ovary Laterality U nknown (HCC) - Primary Neutropenia Drug Induced (HCC) documented in this encounter Administered Medications Inactive Administered Medications - up to 3 most recent administrations Medication Order MAR Action Action Date Dose Rate Site CARBOplatin 700 mg in NaCl New Bag 05/30/2021 4:13 PM CATERING SALES MANAGER 700 mg 690 mL/hr 0.9% 345 mL IVPB (PARAPLATIN) 700 mg (rounded from 697.8 mg, Target AUC = 6), intravenous, at 690 mL/hr, Administer over 30 Minutes, Once, On Sun05/30/21 at 1530, For 1 dose dexamethasone in NaCl 0.9% IVPB 12 New Bag 05/30/2021 12:20 PM CATERING SALES MANAGER 12 mg 200 mL/hr mg (DECADRON) 12 mg, intravenous, at 200 mL/hr, Administer over 15 Minutes, Once, On Sun05/30/21 at 1200, For 1 dose, Give prior to PACLitaxel Refrigerate diphenhydrAMINE 50 mg in NaCl 0.9% New Bag 05/30/2021 12:38 PM CATERING SALES MANAGER 50 mg 204 mL/hr IVPB (BENADRYL) 50 mg, intravenous, at 204 mL/hr, Administer over 15 Minutes, Once, On Sun05/30/21 at 1200, For 1 dose, Pre taxol. ivpb vs ivp to help with symptoms famotidine injection 20 mg (PEPCID) Given 05/30/2021 11:59 AM CATERING SALES MANAGER 20 mg 20 mg, intravenous, Once, [...] mg New Bag 05/30/2021 12:03 P M CATERING SALES MANAGER 16 mg 232 mL/hr (ZOFRAN) 16 mg, intravenous, at 232 mL/hr, Administer over 15 Minutes, Once, On Sun05/30/21 at 1200, For 1 dose PACLitaxeL 288 mg in NaCl 0.9% New Bag 05/30/2021 1:30 PM CATERING SALES MANAGER 288 mg 99.3 mL/hr (non-PVC) 298 mL IVPB (TAXOL) 288 mg (rounded from 285.25 mg = 175 mg/m2 ? 1.63 m2 Treatment Plan BSA from Measured weight), intravenous, at 99.3 mL/hr, Administer over 3 Hours, Once, On Sun05/30/21 at 1230, For 1 dose, Administer via 0.22 micron in-line filter. documented in this encounter
--- OUTSIDE RECORDS SUMMARY | 2022-04-04 14:13 | XMS_ITS | Encounter Summary ---
:1975 Author Organization [facility] Address [address] [place] [address] Care Team Providers Name Role Phone Unavailable Primary Care Provider Unavailable Reason for Visit Reason Comments Post Surgery, Chemo Questions Encounter Details Date Type Department Care Team Description 05/20/2021 Clinical Communication Department of Walter Barnhart Surgery, Chemo Oncology in S, Kelly, Ph.D. Questions [place], [address] [place] [address] [place] [phone] [place], [place] [phone] (Work) [phone] Social History Tobacco Use Types Packs/Day Years [...] Office Visit Oncology Walter Barnhart M.D., Ph.D. [address] [place] [phone] documented as of this encounter Visit Diagnoses Not on filedocumented in this encounter
--- OUTSIDE RECORDS SUMMARY | 2022-04-04 14:13 | XMS_ITS | Encounter Summary ---
:1975 Author Organization [facility] Address [address] [place] [address] Care Team Providers Name Role Phone Unavailable Primary Care Provider Unavailable Reason for Visit Reason Comments Intake Assessment Encounter Details Date Type Department Care Team Description 05/27/2021 Clinical Communication Department of Candie Monahan Assessment Oncology in [facility] [address] [facility] [address] [place] [phone] Social History Tobacco Use Types Packs/Day Years [...] 05/27/2021 11:22 AM CST Intake screening completed. 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 [address] [place] [phone] documented as of this encounter Visit Diagnoses Not on filedocumented in this encounter
--- OUTSIDE RECORDS SUMMARY | 2022-04-04 14:13 | XMS_ITS | Encounter Summary ---
:1975 Author Organization [facility] Address [address] [place] [address] Care Team Providers Name Role Phone Unavailable Primary Care Provider Unavailable Reason for Visit Reason Comments Communication Encounter Details Date Type Department Care Team Description 06/17/2021 Clinical Communication Department of System, Provider Communication Obstetrics and Not In Gynecology in [place], [place] [address] [place] [address] Social History Tobacco Use Types Packs/Day Years [...] Miscellaneous Notes Telephone Encounter - Brenda Moise - 06/17/2021 10:56 AM CST A message has been left for patient to return a call. She had sent a an on line message asking to reschedule her post op visit. Please assist with rescheduling with an NPPA for the post op visit. She will need to have a pelvic exam IMPERSONATOR documented in this encounter Plan of Treatment Upcoming Encounters Date Type Specialty Care Team Description 04/11/2022 Clinical Communication Admitting/Central Scheduling 04/13/2022 Office Visit Oncology Walter Barnhart M.D., Ph.D. [address] [place] [phone] documented as of this encounter Visit Diagnoses Not on filedocumented in this encounter
--- OUTSIDE RECORDS SUMMARY | 2022-04-04 14:14 | XMS_ITS | Encounter Summary ---
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 200 [place], [place] [phone] Referral ID Status Reason Start Date Expiration Date Visits Requ ested Visits Authorized [id number] Closed 04/18/2021 05/18/2021 1 1 Encounter Details Date Type Department Care Team Description 05/02/2021 Hospital Encounter Department of Walter Barnhart Malign ant Neoplasm Radiology brittney De La Cruz M.D., Ph.D. Of [place], [place] [address] [facility] [address] [place] [phone] Social History Tobacco Use Types Packs/Day [...] Sig Dispensed Refills Start Date End Date wwolnyk-evsw-yujgi-oreg- Take 1 tablet by 0 capryl 100 [...] Oncology Walter Barnhart M.D., Ph.D. [address] [place] [phone] documented as of this encounter Procedures Procedure Name Priority Date/Time Associated Comments Diagnosis CT CHEST WITH IV RAD - Routine 05/02/2021 10:52 Malignant Result s for this CONTRAST (most inpatients AM STATISTICAL ASSISTANT Neoplasm Of Ovary proced ure are in and all Laterality the results outpatients) Unknown (HCC) section. documented in this encounter Results CT Chest with IV Contrast (05/02/2021 10:52 AM STATISTICAL ASSISTANT) Anatomical Region Laterality Modality Chest, Thoracic RST LOS, Thoracic ARZ LOS, Thoracic N/A Computed Tomography ARZ LOS, Thoracic FLA LOS Specimen (Source) Anatomical Collection Method Collection Time Re ceived Time Location / / Volume Laterality 05/02/2021 11:10 AM STATISTICAL ASSISTANT Impressions 05/02/2021 11:15 AM STATISTICAL ASSISTANT No acute disease. Stable tiny pulmonary nodules. Narrative 05/02/2021 11:15 AM STATISTICAL ASSISTANT EXAM: CT CHEST WITH IV CONTRAST 3D/MIPS: [...] mg iodine/mL solution Given 05/02/2021 10:54 AM STATISTICAL ASSISTANT 80 mL 1-200 mL (OMNIPAQUE) 1-200 mL, intravenous, Once in imaging, contrast, Starting on Sun05/02/21 at 1053, For 1 dose, Imaging Protocol Orders, Dose per Radiant Medication Guidelines NaCl 0.9 % bolus 100 mL New Bag 05/02/2021 10:44 AM STATISTICAL ASSISTANT 100 mL 100 mL/hr 100 mL, intravenous, at 100 mL/hr, Administer over 1 Hours, Once, On Sun05/02/21 at 1100, For 1 dose sodium chloride 0.9 % injection 10 mL Given 05/02/2021 10:44 AM STATISTICAL ASSISTANT 10 mL 10 mL, intravenous, Once in imaging, line care, Starting on Sun05/02/21 at 1053, For 1 dose documented in this encounter
--- OUTSIDE RECORDS SUMMARY | 2022-04-04 14:14 | XMS_ITS | Encounter Summary ---
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] Procedures SD SALPINGO-OOPHORECTOMY BILAT HYST SD HEPATECTMY RESECT PARTL LOBECT SD US GUIDE INTRAOPERATIVE SD CYSTHRSCPY W INS URETERAL STNT LAPAROTOMY, TUMOR DEBULKING HYSTERECTOMY ABDOMINAL WITH BILATERAL SALPINGO-OOPHORECTOMY OMENTECTOMY POSSIBLE RESECTION SMALL INTESTINE WITH ANASTOMOSIS, PROCEED INDICATED WEDGE RESECTION LIVER INTRAOPERATIVE ULTRASOUND LIVER CYSTOSCOPY INSERTION STENT URETER Referral ID Status Reason Start Date Expiration Date Visits Requ ested Visits Authorized [id number] 1 1 Encounter Details Date Type Department Care Team Description 05/09/2021 Anesthesia Event RST [facility] OR Harrison Aguilar M.D. [address] [place] [phone] [address] [facility] Abbey Kelly, PEDIATRIC INTENSIVE PHYSICIAN, ACIDITY TESTER [address] [place] [address] [place] [phone] Anesthesia Record Procedure Summary Procedure Name Responsible [...] h andoff to the receiving staff during [facility] we 1. Identified the patient 2. [...] 05/09/21 0000 by Abdomen; Medial; Midline Jem Barreto, RChapincitoN. abdominal incision from chest to pubis [...] y Orogastric; 16 Fr; Oral; Abbey Kelly, H jermaine, Roldan W, 05/09/21; 1650 PEDIATRIC INTENSIVE PHYSICIAN, MARK PEDIATRIC INTENSIVE PHYSICIAN, ACIDITY TESTER Ureteral Drain/Stent 05/09/21; 0938; Right; 05/09/21 0938 [...] 0 by Catheter 05/09/21; Placement Jem Barreto, RJessie Morales, Time: 938; Inserted by: R.N. OR staff; Removal Date: 05/10/21; Removal Time: 0510; Removal Reason: Per order Closed/Suction Drain 05/09/21; [...] Procedure Summary Date: 05/09/21 Room / Location: [address] 01 [address] / [facility] in [place], [place] Anesthesia Start: 829 Anesthesia Stop: 170 [...] Post Op nausea/vomiting: none Hydration status: euvolemic PER OPERATOR Anesthesia Procedure Notes - Abbey Kelly APRN, [...] successful Airway event: no complications ATTESTATION STATEMENT PER OPERATOR Anesthesia Procedure Notes - Abbey Kelly APRN, [...] successful procedure Other complications: none ATTESTATION STATEMENT PER OPERATOR Anesthesia Procedure Notes - Abbey Kelly APRN, [...] yes Complications - arterial: none ATTESTATION STATEMENT PER OPERATOR Anesthesia Preprocedure Evaluation - Sharif Dominique M.D. [...] Of Ovary Laterality Unknown (HCC) [C56.9]. Location: [place] [address] / [facility] in [place], [place] Providers: Denisha Oviedo M.D.; Wilma Castro [...] with patient /legal guardian or through an telephone advice nurse. Risks/Benefits/Alternatives of Blood transfusion discussed with patient / legal guardian, including an opportunity to ask questions and/or decline some or all transfusion therapies. The patient / legalguardian consented to the use of all blood products, as deemed medically necessary Approval to Proceed: approved for anesthesia PER OPERATOR documented in this encounter Plan of Treatment Upcoming Encounters Date Type Specialty Care Team Description 04/11/2022 Clinical Communication Admitting/Central Scheduling 04/13/2022 Office Visit Oncology Obey, Walter De La Cruz M.D., Ph.D. [address] [place] [address] documented as of this encounter Procedures Procedure Name Priority Date/Time Associated Comments Diagnosis SD INJ SPINE LUMB/SAC Routine 05/09/2021 8:48 AM Results for this WO IMG WRAPPER OPERATOR procedure are i n the results section. LDA ANE ARTERIAL LINE Routine 05/09/2021 8:45 AM Results for this INSERTION WRAPPER OPERATOR procedure are i n the results section. SD ARTL CATH/CNULA Routine 05/09/2021 8:45 AM Res ults for this MONITOR PERC WRAPPER OPERATOR procedure are i n the results section. LDA ANE ENDOTRACHEAL Routine 05/09/2021 8:44 AM R esults for this AIRWAY WRAPPER OPERATOR procedure are i n the results section. documented in this encounter Results SD INJ SPINE LUMB/SAC WO IMG (05/09/2021 8:48 AM WRAPPER OPERATOR) Narrative Abbey Kelly APRN, CRNA - 05/09 8:48 AM WRAPPER OPERATOR Abbey Kelly APRN, CRNA ? 05/09/2021 ??9:14 [...] Sharif Dominique M.D. PROCEDURE/MINOR SURGICAL ORD ERABLES SD ARTL CATH/CNULA MONITOR PERC, LDA ANE ARTERIAL LINE INSERTION (05/09/2021 8:45 AM WRAPPER OPERATOR) Narrative Abbey Kelly PEDIATRIC INTENSIVE PHYSICIAN, ACIDITY TESTER - 05/09 8:45 AM WRAPPER OPERATOR Abbey Kelly APRN, ACIDITY TESTER ? 05/09/2021 ??9:13 AM Invasive Catheter Date/Time: [...] LDA ANE ENDOTRACHEAL AIRWAY (05/09/2021 8:44 AM WRAPPER OPERATOR) Narrative Abbey Kelly APRN, CRNA - 05/09 8:44 AM WRAPPER OPERATOR Abbey Kelly APRN, CRNA ? 05/09/2021 ??9:21 [...] 5 % injection Given 05/09/2021 2:30 PM WRAPPER OPERATOR 250 mL intravenous, As needed, Starting on Sun05/09/21 at 0910, Anesthesia Intra-op Given 05/09/2021 2:11 PM WRAPPER OPERATOR 250 mL Given 05/09/2021 10:31 AM WRAPPER OPERATOR 250 mL calcium gluconate injection Given 05/09/2021 1:13 PM WRAPPER OPERATOR 1 g intravenous, As needed, Starting on Sun05/09/21 at 1313, Anesthesia Intra-op ceFAZolin injection 2,000 mg (ANCEF) Given 05/09/2021 3:07 PM WRAPPER OPERATOR 2 g 2,000 mg (rounded from 1,552.5 [...] Indications: Prophylaxis, surgical Given 05/09/2021 12:17 PM WRAPPER OPERATOR 2 g Given 05/09/2021 9:18 AM WRAPPER OPERATOR 2 g dexAMETHasone injection (DECADRON) Given 05/09/2021 9:04 AM WRAPPER OPERATOR 8 mg intravenous, As needed, Starting on Sun05/09/21 at 0904, Anesthesia Intra-op ePHEDrine (PF) injection Given 05/09/2021 4:29 PM WRAPPER OPERATOR 5 mg intravenous, As needed, Starting on Sun05/09/21 at 0946, Anesthesia Intra-op Given 05/09/2021 4:20 PM WRAPPER OPERATOR 5 mg Given 05/09/2021 2:01 PM WRAPPER OPERATOR 5 mg fentaNYL injection (SUBLIMAZE) Given 05/09/2021 1:41 PM WRAPPER OPERATOR 50 mcg intravenous, As needed, Starting on Sun05/09/21 at 0839, Anesthesia Intra-op Given 05/09/2021 10:10 AM WRAPPER OPERATOR 50 mcg Given 05/09/2021 10:00 AM WRAPPER OPERATOR 50 mcg glycopyrrolate injection (ROBINUL) Given 05/09/2021 9:48 AM WRAPPER OPERATOR 0.2 mg intravenous, As needed, Starting on Sun05/09/21 at 0948, Anesthesia Intra-op haloperidol lactate injection (HALDOL) Given 05/09/2021 1:01 PM WRAPPER OPERATOR 1 mg intravenous, As needed, Starting on Sun05/09/21 at 1301, Anesthesia Intra-op heparin (porcine) injection 5,000 Units Given 05/09/2021 9:05 AM WRAPPER OPERATOR 5,000 Units 5,000 Units, subcutaneous, Once, On Sun05/09/21 at 0730, For 1 dose, Intra-Op, Administer prior to induction of anesthesia. HYDROmorphone dilution injection (DILAUD ID) Given 05/09/2021 8:36 AM WRAPPER OPERATOR 100 mcg intrathecal, As needed, Starting on Sun05/09/21 at 0836, Anesthesia Intra-op indocyanine green injection (IC-GREEN) Given 05/09/2021 3:45 PM WRAPPER OPERATOR 2.5 mg intravenous, As needed, Starting on Sun05/09/21 at 1501, Anesthesia Intra-op Given 05/09/2021 3:01 PM WRAPPER OPERATOR 2.5 mg lactated ringers New Bag 05/09/2021 2:08 PM WRAPPER OPERATOR intravenous, Continuous Infusion: Per Instructions PRN, Starting on Sun05/09/21 at 0830, Anesthesia Intra-op New Bag 05/09/2021 8:30 AM WRAPPER OPERATOR lactated ringers New Bag 05/09/2021 3:41 PM WRAPPER OPERATOR intravenous, Continuous Infusion: Per Instructions PRN, Starting on Sun05/09/21 at 0847, Anesthesia Intra-op New Bag 05/09/2021 1:21 PM WRAPPER OPERATOR New Bag 05/09/2021 10:45 AM WRAPPER OPERATOR lidocaine (PF) (cardiac) injection Given 05/09/2021 8:39 AM WRAPPER OPERATOR 100 mg intravenous, As needed, Starting on Sun05/09/21 at 0839, Anesthesia Intra-op metroNIDAZOLE in NaCl (iso-osm) IVPB 500 mg Given 05/09/2021 2:56 PM WRAPPER OPERATOR 500 mg (FLAGYL) 500 mg, intravenous, at 200 mL/hr, Administer over 30 Minutes, Once, On Sun05/09/21 at 0730, For 1 dose, Intra-Op, Preoperatively within 1 hour prior to surgical incision, Indications: Prophylaxis, surgical Given 05/09/2021 9:07 AM WRAPPER OPERATOR 500 mg midazolam (PF) injection (VERSED) Given 05/09/2021 8:32 AM WRAPPER OPERATOR 2 mg intravenous, As needed, Starting on Sun05/09/21 at 0832, Anesthesia Intra-op ondansetron (PF) injection (ZOFRAN) Given 05/09/2021 4:16 PM WRAPPER OPERATOR 4 mg intravenous, As needed, Starting on Sun05/09/21 at 1616, Anesthesia Intra-op phenylephrine injection Given 05/09/2021 4:20 PM WRAPPER OPERATOR 100 mcg intravenous, As needed, Starting on Sun05/09/21 at 0947, Anesthesia Intra-op Given 05/09/2021 4:10 PM WRAPPER OPERATOR 50 mcg Given 05/09/2021 4:07 PM WRAPPER OPERATOR 50 mcg propofol 10 mg/mL infusion Rate/Dose 05/09/2021 3:44 75 mcg/kg/min 2 6.82 (DIPRIVAN) Change PM WRAPPER OPERATOR mL/hr intravenous, Continuous Infusion: Per Instructions PRN, Starting on Sun05/09/21 at 0840, Anesthesia Intra-op Rate/Dose Change 05/09/2021 9:38 AM WRAPPER OPERATOR 85 mcg/kg/min 30.396 mL/hr New Bag 05/09/2021 8:40 AM WRAPPER OPERATOR 100 mcg/kg/min 35.76 mL/hr propofoL injection (DIPRIVAN) Given 05/09/2021 8:39 AM WRAPPER OPERATOR 150 mg intravenous, As needed, Starting on Sun05/09/21 at 0839, Anesthesia Intra-op rocuronium injection (ZEMURON) Given 05/09/2021 3:36 PM WRAPPER OPERATOR 20 mg intravenous, As needed, Starting on Sun05/09/21 at 0839, Anesthesia Intra-op Given 05/09/2021 3:03 PM WRAPPER OPERATOR 20 mg Given 05/09/2021 2:15 PM WRAPPER OPERATOR 20 mg sugammadex injection (BRIDION) Given 05/09/2021 4:41 PM WRAPPER OPERATOR 150 mg intravenous, As needed, Starting on Sun05/09/21 at 1641, Anesthesia Intra-op tranexamic acid in NaCl IVPB 1,000 mg Given 05/09/2021 9:[address] 1 g (CYKLOKAPRON) 1,000 mg (1 g), intravenous, at 300 mL/hr, Administer over 20 Minutes, Once, On Sun05/09/21 at 0730, For 1 dose, Intra-Op documented in this encounter
--- OUTSIDE RECORDS SUMMARY | 2022-04-04 14:14 | XMS_ITS | Encounter Summary ---
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 [address] [facility] [address] [place] [phone] Referral ID Status Reason Start Date Expiration Date Visits V isits Requested Authorized [id number] Authorized 02/17/2021 02/17/2022 12 12 Encounter Details Date Type Department Care Team Description 05/02/2021 Hospital Encounter Department of Walter Barnhart Malign ant Neoplasm Of Ovary Laterality Unknown (HCC); Laboratory Medicine Kelly De La Cruz, Ph. D. Neutropenia Drug Induced (HCC) in [address] [place] [phone] [place], [place] [phone] (Work) [phone] Social History Tobacco Use Types Packs/Day Years [...] 02/26/2021 organizations such as alevism groups, unions, fra[employer]Lair or athletic groups, or school groups? How [...] Sig Dispensed Refills Start Date End Date gtctzur-zqaj-epnya-oreg- Take 1 tablet by 0 capryl 100 [...] Visit Oncology Walter Barnhart M.D., Ph.D. [address] [place] [address] documented as of this encounter Procedures Procedure Name Priority Date/Time Associated Comments Diagnosis CBC CHEMO - NO ALERTS Routine 05/02/2021 10:22 Malignant Neopl asm Results for this AM SAND AND GRAVEL PLANT OPERATOR Of Ovary procedure are i n Laterality Unknown the resul ts (HCC) section. Neutropenia Drug Induced (HCC) CANCER AG 125 (CA 125), Routine 05/02/2021 10:22 Malignant Juan plasm Results for this S AM SAND AND GRAVEL PLANT OPERATOR Of Ovary procedure are i n Laterality Unknown the resul ts (HCC) section. Neutropenia Drug Induced (HCC) ASPARTATE Routine 05/02/2021 10:22 Malignant Neoplasm Resul ts for this AMINOTRANSFERASE (AST), AM SAND AND GRAVEL PLANT OPERATOR Of Ovary proc edure are in S/P Laterality Unknown the resul ts (HCC) section. Neutropenia Drug Induced (HCC) CREATININE WITH EGFR, Routine 05/02/2021 10:22 Malignant Neopl asm Results for this S/P AM SAND AND GRAVEL PLANT OPERATOR Of Ovary procedure are i n Laterality Unknown the resul ts (HCC) section. Neutropenia Drug Induced (HCC) BILIRUBIN, TOT, S/P Routine 05/02/2021 10:22 Malignant Neoplas m Results for this AM SAND AND GRAVEL PLANT OPERATOR Of Ovary procedure are i n Laterality Unknown the resul ts (HCC) section. Neutropenia Drug Induced (HCC) documented in this encounter Results Creatinine with Estimated GFR (05/02/2021 10:22 AM SAND AND GRAVEL PLANT OPERATOR) P athologist Signature Creatinine 0.64 0.59 - 05/02/2021 [facility] 1.04 mg/dL 10:47 AM SAND AND GRAVEL PLANT OPERATOR eGFR-Black/Afric >90 >=60 05/02/2021 NPR[facility] an Togolese mL/min/BSA 10:47 AM SAND AND GRAVEL PLANT OPERATOR Comment: ----ADDITIONAL INFORMATION---- Estimated GFR calculated using the 2009 CKD_EPI creatinine equation. eGFR Non-Black/ >90 >=60 mL/min/BSA 05/02/2021 10:47 AM SAND AND GRAVEL PLANT OPERATOR NPRG Comment: ----ADDITIONAL INFORMATION---- Estimated GFR calculated using the 2009 CKD_EPI creatinine equation. Specimen Anatomical Collection Method Collection Time Receive d Time (Source) Location / / Volume Laterality Blood (Blood, 05/02/2021 10:22 05/02/2021 Venous) AM SAND AND GRAVEL PLANT OPERATOR 10:27 AM SAND AND GRAVEL PLANT OPERATOR Walter Barnhart M.D., Ph.D. LAB BLOOD ADD-ON Performing Organization Address City/State/ZIP Code Phon e Number [place] [address] [address] [facility] [place] [id number] [address] (ABNORMAL) CBC, Chemotherapy, No Alerts (05/02/2021 10:22 AM SAND AND GRAVEL PLANT OPERATOR) Analysis Performed At Patho logist Time Signature Hemoglobin 11.2 (L) 11.6 - 05/02/2021 [facility] 15.0 g/dL 10:32 AM SAND AND GRAVEL PLANT OPERATOR Platelet Count 233 157 - 371 05/02/2021 [facility] x10(9)/L 10:32 AM SAND AND GRAVEL PLANT OPERATOR Leukocytes 4.1 3.4 - 9.6 05/02/2021 NPR[facility] x10(9)/L 10:32 AM SAND AND GRAVEL PLANT OPERATOR Neutrophils 2.59 1.56 - 05/02/2021 [facility] 6.45 10:32 AM SAND AND GRAVEL PLANT OPERATOR x10(9)/L Specimen Anatomical Collection Method Collection Time Receive d Time (Source) Location / / Volume Laterality Blood (Blood, 05/02/2021 10:22 05/02/2021 Venous) AM SAND AND GRAVEL PLANT OPERATOR 10:27 AM SAND AND GRAVEL PLANT OPERATOR Walter Barnhart M.D., Ph.D. LAB BLOOD ADD-ON Performing Organization Address City/State/ZIP Code Phon e Number [address] [address] [facility] [place] [phone] [address] Bilirubin, Total (05/02/2021 10:22 AM SAND AND GRAVEL PLANT OPERATOR) P athologist Signature Bilirubin, 0.4 <=1.2 mg/dL 05/02/2021 [facility] Total, P 10:47 AM SAND AND GRAVEL PLANT OPERATOR Specimen Anatomical Collection Method Collection Time Receive d Time (Source) Location / / Volume Laterality Blood (Blood, 05/02/2021 10:22 05/02/2021 Venous) AM SAND AND GRAVEL PLANT OPERATOR 10:27 AM SAND AND GRAVEL PLANT OPERATOR Walter Barnhart M.D., Ph.D. LAB BLOOD ADD-ON Performing Organization Address City/State/ZIP Code Phon e Number [address] [address] [facility] [address] AST (Aspartate Aminotransferase) (05/02/2021 10:22 AM SAND AND GRAVEL PLANT OPERATOR) Patholo gist Method Time Signature Aspartate 23 8 - 43 05/02/2021 [facility] Aminotransferase U/L 10:47 AM SAND AND GRAVEL PLANT OPERATOR (AST), P Specimen Anatomical Collection Method Collection Time Receive d Time (Source) Location / / Volume Laterality Blood (Blood, 05/02/2021 10:22 05/02/2021 Venous) AM SAND AND GRAVEL PLANT OPERATOR 10:27 AM SAND AND GRAVEL PLANT OPERATOR Walter Barnhart M.D., Ph.D. LAB BLOOD ADD-ON Performing Organization Address City/[facility]/ZIP Code Phon e Number [facility]- [address] [place], [place] [address] [facility] [place] [address] (ABNORMAL) Cancer Antigen 125 (CA 125) (05/02/2021 10:22 AM SAND AND GRAVEL PLANT OPERATOR) P athologist Signature Cancer Ag 125 65 (H) <46 U/mL 05/02/2021 AUST (CA 125), S 10:36 PM SAND AND GRAVEL PLANT OPERATOR Comment: Biotin has been identified by [...] Blood (Blood, 05/02/2021 10:22 05/02/2021 Venous) AM SAND AND GRAVEL PLANT OPERATOR 10:04 PM SAND AND GRAVEL PLANT OPERATOR Walter Barnhart M.D., Ph.D. LAB BLOOD ADD-ON Performing Organization Address City/State/ZIP Code Phon e Number [facility] [address] [place] [address] [facility] [place] [address] [facility] [address] documented in this encounter Visit Diagnoses Diagnosis 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
--- OUTSIDE RECORDS SUMMARY | 2022-04-04 14:14 | XMS_ITS | Encounter Summary ---
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 [address] [place] [address] Referral ID Status Reason Start Date Expiration Date Visits Requ ested Visits Authorized [id number] Closed 05/03/2021 05/03/2022 1 1 Scheduling Instructions 05/03/21 Dr. Castro agreed to see guadalupe simmons on [place] [address] Immediately after consult with Dr. Oviedo. Schedule as Biliary/Liver Ca ncer/Stricture TAIN WORKER Reason for Visit Outpatient (Routine) - Closed Specialty Diagnoses / Procedures Referred By Contact Refer red To Contact Obstetrics and Diagnoses Personal History Of Malignant Neoplasm Of Ovary Denisha Oviedo [facility] M.D. 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 Dr. Jacobo aBnda will place stents before the procedurewith a [...] patient andcoordination of care as described above. TAIN WORKER documented in this encounter Miscellaneous Notes Addendum Note - Phi Recio R.N. - 05/03/2021 10:45 AM FOUNTAIN WORKER Addended by: PHI RECIO on: 05/04/2021 08:48 AM Modules accepted: Orders TAIN WORKER documented in this encounter Plan of Treatment Upcoming Encounters Date Type Specialty Care Team Description 04/11/2022 Clinical Communication Admitting/Central Scheduling 04/13/2022 Office Visit Oncology Walter Barnhart M.D., Ph.D. [address] [place] [address] Scheduled Referrals Name Type Priority Associated Diagnoses Order S [facility] General Surgery - Outpatient Referral Routine Malignant Neopla sm Expected: Biliary / liver Of Ovary Laterality 05/03, consult (clinic) Unknown (HCC) Expires: Lesion Liver 08/03/2022 documented as of this encounter Results SARS CoV-2 RNA, PCR, Varies Asymptomatic (05/08/2021 7:08 AM FOUNTAIN WORKER) [facility] Method Time Signature SARS CoV-2 Swab, 05/08/2021 DTL RNA, PCR, Nasopharynx 1:23 PM FOUNTAIN WORKER Source SARS CoV-2 Undetected Undetected 05/08/2021 DTL RNA, PCR 1:23 PM FOUNTAIN WORKER Comment: SARS-CoV-2 RNA absent. This result does [...] Drug Administration an d is used per time study technician's instructions. Performance characteristics were verified by [facility] in a manner consistent with CLIA requirements. Visit the CDC website: https://www.cdc.g ov/coronavirus/ for the most recent guidelines on Coron avirus testing. Fact Sheet for Healthcare Providers: https://www.fda.gov/media/345222/downloa d Fact Sheet for Patients: https://www.fda.gov/media/931761/downloa d Specimen Anatomical Collection Method Collection Time Receive d Time (Source) Location / / Volume Laterality Varies 05/08/2021 7:08 AM 8:49 (Nasopharynx) FOUNTAIN WORKER AM FOUNTAIN WORKER Denisha Oviedo M.D. LAB MICROBIOLOGY - GENERAL O RDERABLES Performing Organization Address City/State/ZIP Code Phon e Number [facility] - [address] [place], [place] [address] [facility] [place] [address] [facility] [address] documented in this encounter Visit Diagnoses Diagnosis Malignant Neoplasm Of Ovary Laterality U nknown (HCC) - Primary Personal History Of Malignant Neoplasm O f Ovary Lesion Liver Preprocedural Lab Exam documented in this encounter
--- OUTSIDE RECORDS SUMMARY | 2022-04-04 14:14 | XMS_ITS | Encounter Summary ---
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] Procedures VT SALPINGO-OOPHORECTOMY BILAT HYST VT HEPATECTMY RESECT PARTL LOBECT VT US GUIDE INTRAOPERATIVE VT CYSTHRSCPY W INS URETERAL STNT LAPAROTOMY, TUMOR DEBULKING HYSTERECTOMY ABDOMINAL WITH BILATERAL SALPINGO-OOPHORECTOMY OMENTECTOMY POSSIBLE RESECTION SMALL INTESTINE WITH ANASTOMOSIS, PROCEED INDICATED WEDGE RESECTION LIVER INTRAOPERATIVE ULTRASOUND LIVER CYSTOSCOPY INSERTION STENT URETER Referral ID Status Reason Start Date Expiration Date Visits Requ ested Visits Authorized [id number] 1 1 Encounter Details Date Type Department Care Team Description 05/09/2021 Surgery [facility] MAIN OR Denisha Oviedo E, LAPAROTOMY, [address] [facility] M.DChapincito EXPLORATORY. [place], [place] [address] [facility] [id number] [place], [place] [phone] (Wo rk) Social History Tobacco Use Types [...] Comments Blood Pressure 102/63 05/09/2021 6:15 PM STAMP PRESSER Pulse 56 05/09/2021 6:15 PM STAMP PRESSER Temperature 36.6 ??C (97.9 ??F) 05/09/2021 6:19 PM STAMP PRESSER Respiratory Rate 14 05/09/2021 6:15 PM STAMP PRESSER Oxygen Saturation 98% 05/09/2021 6:15 PM STAMP PRESSER Inhaled Oxygen Concentration - - Weight 59.6 kg (131 lb 6.3 oz) 05/09/2021 7:27 AM STAMP PRESSER Height 167 cm (5' 5.75) 05/09/2021 7:27 AM STAMP PRESSER Body Mass Index 22.23 05/09/2021 7:27 AM STAMP PRESSER documented in this encounter Discharge Summaries Lynn [...] Report electronically signed by Sophia Ndiaye M.D. [id number] I verify that I have examined all relevant slides/materials for the specimen(s) and rendered or confirmed the diagnosis. Gross Description A. Received fresh labeled umbilical nodule is a 2.2 x 1.7 x 0.6 cm fragment of red-orosco soft tissue. There is a 0.7 x 0.6 cm nodule identified upon sectioning. All submitted for permanent sections only. Grossed by [facility]. B. Received fresh labeled falciform ligament is a 3.9 x 3.2 x 0.6 cm portion of pink-red fibrofatty tissue. Oil Refiner tissue submitted for permanent sections only. Grossed by [facility]. C. Received fresh labeled omentum is a 42 x 12 x 1 cm portion of omentum. There is a 0.3 x 0.2 x 0.2 cm calcified nodule. Lymph nodes are identified. Oil Refiner tissue submitted for permanent sections only. Grossed by SOFIE. Nader. Received fresh labeled liver wedge segment 4B/3 nodule is a 18 gram, 4.3 x 3.8 x 3.7 cm liver wedge specimen. A single 2.6 x 2.4 x 1.4 cm orosco-white mass is present 0.1 cm from the inked surgical margin. Margin is submitted perpendicularly. Oil Refiner tissue submitted for permanent sections only. Grossed by [facility] . E. Received fresh labeled right diaphragm is a 7.1 x 3.2 x 1.6 cm portion of red-orosco fibrous tissue. At one aspect, there is a 3.6 x 1.7 x 0.6 cm nodule. Additional smaller nodules are identified. Oil Refiner tissue submitted for permanent sections only. Grossed by [facility]. F. Received fresh labeled right anterior abdominal wall is a 3.8 x 2 x 0.5 cm portion of red-pink, peritonealized fibromembranous tissue. A 0.2 cm nodule is present. Oil Refiner tissue submitted for permanent sections only. Grossed by [facility]. G. Received fresh labeled right pelvic gutter is a 2.2 x 1 x 0.2 cm aggregate of red-pink fibromembranous tissue. All submitted for permanent sections only. Grossed by [facility]. H. Received fresh labeled left mid diaphragm [...] nodule. Hilar lymph nodes are not identified. Oil Refiner tissue submitted for permanent sections only. Grossed [...] tube has multiple adhesions and serosal implants. Oil Refiner tissue submitted for permanent sections only. Grossed [...] 3 x 1.6 cm of soft tissue. Oil Refiner tissue submitted for permanent sections only. Grossed by RAK. Gallegos Received fresh labeled portion of sigmoid colon is a 13.5 cm in length portion of colon. There are serosal tumor imp lants and adhesions. The mucosa is unremarkable. Oil Refiner tissue submitted for permanent sections only. Grossed [...] including a pelvic exam. If scheduled at [facility] then appointment desk will contact [...] important to have your annual flu vaccine P PRESSER documented in this encounter Discharge Instructions AttachmentsThe following attachments cannot be sent through Care Everywhere. Apixaban (By mouth) (Liberian)Cyclobenzaprine (By mouth) (Liberian)Hydromorphone (By mouth) (Liberian)documented in this encounter Medications at Time of Discharge Medication Sig Dispensed Refills Start Date End Date ztykbom-gfzy-xyobs-oreg- Take 1 tablet by 0 capryl 100 [...] Out: 4000 [Urine:4000] 05/14 701 - 05/14 1900 In: 200 [P.O.:200] Out: [...] The patient was evaluated and discussed with SUPERVISOR METAL PLACING ONC fellow Dr. Lagos and Dr. Stone who are in agreement with the plan of care. P PRESSER Ruben Rod M.D. - 05/13/2021 5:40 AM [...] M.D. Please direct questions/concerns to service pagers. P PRESSER Ruben Rod M.D. - 05/12/2021 5:42 AM [...] Neoplasm Of Ovary Code Status: Full Code Jewel Bearing Broacher: Discussed final pathology report. She will f/u [...] M.D. Please direct questions/concerns to service pagers. P PRESSER Ruben Rod M.D. - 05/11/2021 6:15 AM [...] from last 7 days Lab Units 05/11/21 00105/10/21 01105/09/21 1539 WBC x10(9)/L 11.9* 13.5* -- VBGRS HEMOGLOBIN g/dL -- -- 8.1* HEMOGLOBIN g/dL 8.4* 9.6* -- HEMATOCRIT % 25.9* 29.5* -- MCV fL 94.2 93.7 -- PLATELETS AUTO x10(9)/L 281 270 -- Results from last 7 days Lab Units 05/11/21 00105/10/21 01105/09/21 1539 SODIUM mmol/L 140 137 -- [...] Neoplasm Of Ovary Code Status: Full Code Jewel Bearing Broacher: Follow up final pathology. She will f/u [...] M.D. Please direct questions/concerns to service pagers. P PRESSER Sussy Albert M.D. - 05/10/2021 10:27 PM [...] with the patient and as well as kitchen lead onc fellow program evaluation consultant Dr. Lagos. Addendum: Chest x-ray completed and prelim read negative for pneumo; small bilateral pleural effusions and atelectasis present. Noticeable air fluid levels in stomach. Will continue with oxygen supplementation overnight and continuous pulse oximetry. Encourage IS when awake. Discussed with patient andsridharsband. Sussy Albert M.D. P PRESSER aHrrison Zaldivar Pharm.DChapincito, R.Ph. - 05/10/2021 7:52 AM [...] will be needed. Harrison Zaldivar Pharm.D., R.Ph. P PRESSER Cami Duran M.D. - 05/10/2021 5:37 AM [...] & Screen Expiration 05/12/2021 23:59 Testing Location [place] Blood Gas with Coox, Arterial Collection Time: [...] Date/Time SARS CoV-2 RNA, PCR, Varies Asymptomatic [[id number]] Collected: 05/08/21 0708 Lab Status: Final result [...] and Drug Administration and is used per director of medical review's instructions. Performance characteristics were verified by [facility] in a manner consistent with CLIA requirements. Visit the CDC website: https://www.cdc.gov/coronavirus/ for the most recent guidelines on Coronavirus testing. Fact Sheet for Healthcare Providers: https://www.fda.gov/media/828640/download Fact Sheet for Patients: https://www.fda.gov/media/679796/download SARS Coronavirus 2, PCR Rapid, V Symptomatic [[id number]] Collected: 04/25/21 0320 Lab Status: Final result [...] at the following links: For Healthcare Providers: https://www.fda.gov/media/381959/download For Patients: https://www.fda.gov/media/099117/download SARS Coronavirus 2, Source, Rapid Swab, Nasopharynx Bacteria / Ebony Culture, Blood #1 [[id number]] Collected: 04/25/21 020 Lab Status: Final result Specimen: Blood, Peripheral Draw Updated: 04/30/21 030 Bacteria/Ebony Culture, Blood No growth after 5 day/s of incubation. Bacteria / Ebony Culture, Blood #2 [[id number]] Collected: 04/25/21 0158 Lab Status: Final result [...] concerns. Cami Duran MD Resident General Surgery [employer] [phone] pager [phone] phone [email or web address] P PRESSER Ruben Rod M.D. - 05/10/2021 5:09 AM [...] Neoplasm Of Ovary Code Status: Full Code Jewel Bearing Broacher: Follow up final pathology. She will f/u [...] am available if needed. Sussy Albert M.D. P PRESSER Harrison Zaldivar Pharm.D., R.Ph. - 05/09/2021 6:56 AM CST Images from the original note were not included. 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 Prior to [...] for nausea or vomiting (unrelieved by ondansetron). lesmyao-txlk-zsxnr-oreg-capryl 100 mg-150 mg- 50 mg-150 mg capsule 05/02/2021 -- -- Take 1 tablet by mouth daily. Vyvanse 70 mg capsule 05/08/2021 01/24/21 -- Take 70 mg by mouth daily. P PRESSER documented in this encounter Nursing Notes Celeste [...] unit in a wheelchair with transport services. P PRESSER Celeste Goldberg R.N. - 05/09/2021 9:44 PM [...] remains free from fall/fall injury Outcome: Progressing P PRESSER documented in this encounter OR Notes Op Note - Wilma Castro M.D. 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 P PRESSER Op Note - Denisha Oviedo M.D. 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 Residual: 0/micro. Jewel Bearing Broacher Organs, Pelvic Colon & Peritoneum Initial: > [...] recovery in stable condition. Denisha Oviedo M.D. P PRESSER Op Note - Jacobo Banda M.D. - [...] primary team post operatively. Jacobo Banda MD P PRESSER Brief Op Note - Che Martinez M.D. [...] 6300 Crystalloids Complications None Che Martinez M.D. P PRESSER documented in this encounter Miscellaneous Notes Result Encounter Note - Che Martinez M.D. - 05/12/2021 4:51 PM STAMP PRESSER I have reviewed the final pathology report and the identified diagnosis is consistent with the patient's clinical presentation. P PRESSER Hospital Course - Lynn Armstrong M.D. - [...] Report electronically signed by Sophia Ndiaye M.D. [id number] I verify that I have examined all relevant slides/materials for the specimen(s) and rendered or confirmed the diagnosis. Gross Description A. Received fresh labeled umbilical nodule is a 2.2 x 1.7 x 0.6 cm fragment of red-orsoco soft tissue. There is a 0.7 x 0.6 cm nodule identified upon sectioning. All submitted for permanent sections only. Grossed by [facility]. B. Received fresh labeled falciform ligament is a 3.9 x 3.2 x 0.6 cm portion of pink-red fibrofatty tissue. Oil Refiner tissue submitted for permanent sections only. Grossed by [facility]. C. Received fresh labeled omentum is a 42 x 12 x 1 cm portion of omentum. There is a 0.3 x 0.2 x 0.2 cm calcified nodule. Lymph nodes are identified. Oil Refiner tissue submitted for permanent sections only. Grossed by SOFIE. Nader. Received fresh labeled liver wedge segment 4B/3 nodule is a 18 gram, 4.3 x 3.8 x 3.7 cm liver wedge specimen. A single 2.6 x 2.4 x 1.4 cm orosco-white mass is present 0.1 cm from the inked surgical margin. Margin is submitted perpendicularly. Oil Refiner tissue submitted for permanent sections only. Grossed by [facility] . E. Received fresh labeled right diaphragm is a 7.1 x 3.2 x 1.6 cm portion of red-orosco fibrous tissue. At one aspect, there is a 3.6 x 1.7 x 0.6 cm nodule. Additional smaller nodules are identified. Oil Refiner tissue submitted for permanent sections only. Grossed by [facility]. F. Received fresh labeled right anterior abdominal wall is a 3.8 x 2 x 0.5 cm portion of red-pink, peritonealized fibromembranous tissue. A 0.2 cm nodule is present. Oil Refiner tissue submitted for permanent sections only. Grossed [...] nodule. Hilar lymph nodes are not identified. Oil Refiner tissue submitted for permanent sections only. Grossed [...] tube has multiple adhesions and serosal implants. Oil Refiner tissue submitted for permanent sections only. Grossed [...] 3 x 1.6 cm of soft tissue. Oil Refiner tissue submitted for permanent sections only. Grossed by RAK. Gallegos Received fresh labeled portion of sigmoid colon is a 13.5 cm in length portion of colon. There are serosal tumor imp lants and adhesions. The mucosa is unremarkable. Oil Refiner tissue submitted for permanent sections only. Grossed [...] including a pelvic exam. If scheduled at [facility] then appointment desk will contact [...] important to have your annual flu vaccine P PRESSER documented in this encounter Plan of Treatment Upcoming Encounters Date Type Specialty Care Team Description 04/11/2022 Clinical Communication Admitting/Central Scheduling 04/13/2022 Office Visit Oncology Walter Barnhart M.D., Ph.D. [address] [place] [phone] Scheduled Referrals Name Type Priority Associated Order [...] esults for VIEW (Fast; most ED AM STAMP PRESSER this procedur e patients; some are in the inpatients) results section. BASIC METABOLIC Routine 05/12/2021 12:35 Results for PANEL, S/P AM STAMP PRESSER this procedure are in the results section. CBC WITHOUT Routine 05/11/2021 12:15 Results for DIFFERENTIAL, B AM STAMP PRESSER this procedu re are in the results section. BASIC METABOLIC Routine 05/11/2021 12:15 Results for PANEL, S/P AM STAMP PRESSER this procedure are in the results section. DX CHEST AP OR PA RAD - Semiurgent 05/10/2021 10:41 Re sults for AND LATERAL 2 VIEWS (Fast; most ED PM STAMP PRESSER this p rocedure patients; some are in the inpatients) results section. POTASSIUM, S/P Timed 05/10/2021 4:42 Results fo r AM STAMP PRESSER this procedure are in the results section. CBC WITHOUT Routine 05/10/2021 1:19 Results for DIFFERENTIAL, B AM STAMP PRESSER this procedu re are in the results section. COMPREHENSIVE Routine 05/10/2021 1:19 Results for METABOLIC PANEL, S/P AM STAMP PRESSER this pr ocedure are in the results section. DX ABDOMEN 1 VIEW RAD - Routine 05/09/2021 5:14 Result s for (most inpatients PM STAMP PRESSER this proced ure and all are in the outpatients) results section. ADULT OXYGEN THERAPY Routine 05/09/2021 5:10 PM STAMP PRESSER PATIENT STATUS STAT 05/09/2021 3:39 Results fo r PM STAMP PRESSER this procedure are in the results section. SODIUM, B STAT 05/09/2021 3:39 Results for PM STAMP PRESSER this procedure are in the results section. ABG W/COOX STAT 05/09/2021 3:39 Results for PM STAMP PRESSER this procedure are in the results section. POTASSIUM, B STAT 05/09/2021 3:39 Results for PM STAMP PRESSER this procedure are in the results section. GLUCOSE, WHOLE BLOOD STAT 05/09/2021 3:39 Resu lts for PM STAMP PRESSER this procedure are in the results section. CALCIUM, IONIZED, STAT 05/09/2021 3:39 Results for S/B PM STAMP PRESSER this procedure are in the results section. PATIENT STATUS STAT 05/09/2021 1:01 Results fo r PM STAMP PRESSER this procedure are in the results section. SODIUM, B STAT 05/09/2021 1:01 Results for PM STAMP PRESSER this procedure are in the results section. ABG W/COOX STAT 05/09/2021 1:01 Results for PM STAMP PRESSER this procedure are in the results section. POTASSIUM, B STAT 05/09/2021 1:01 Results for PM STAMP PRESSER this procedure are in the results section. GLUCOSE, WHOLE BLOOD STAT 05/09/2021 1:01 Resu lts for PM STAMP PRESSER this procedure are in the results section. CALCIUM, IONIZED, STAT 05/09/2021 1:01 Results for S/B PM STAMP PRESSER this procedure are in the results section. SURGICAL PATHOLOGY, Routine 05/09/2021 10:04 Malignant Resu lts for [facility] LAB AM STAMP PRESSER Neoplasm Of Ovary this proce dure Laterality are in the Unknown (HCC) results section. COLECTOMY LEFT WITH 05/09/2021 8:11 Malignant ANASTOMOSIS AM STAMP PRESSER Neoplasm Of Ovary Laterality Unknown (HCC) EXPLORATION 05/09/2021 8:11 Malignant ABDOMINAL - LYSIS AM STAMP PRESSER Neoplasm Of Ovary ADHESIONS Laterality Unknown (HCC) STRIPPING DIAPHRAGM 05/09/2021 8:11 Malignant AM STAMP PRESSER Neoplasm Of Ovary Laterality Unknown (HCC) OTHER 05/09/2021 8:11 Malignant AM STAMP PRESSER Neoplasm Of Ovary Laterality Unknown (HCC) SPLENECTOMY 05/09/2021 8:11 Malignant AM STAMP PRESSER Neoplasm Of Ovary Laterality Unknown (HCC) CYSTOSCOPY INSERTION 05/09/2021 8:11 Malignant STENT URETER AM STAMP PRESSER Neoplasm Of Ovary Laterality Unknown (HCC) ULTRASOUND LIVER 05/09/2021 8:11 Malignant AM STAMP PRESSER Neoplasm Of Ovary Laterality Unknown (HCC) WEDGE RESECTION 05/09/2021 8:11 Malignant LIVER AM STAMP PRESSER Neoplasm Of Ovary Laterality Unknown (HCC) OMENTECTOMY 05/09/2021 8:11 Malignant AM STAMP PRESSER Neoplasm Of Ovary Laterality Unknown (HCC) HYSTERECTOMY 05/09/2021 8:11 Malignant ABDOMINAL WITH AM STAMP PRESSER Neoplasm Of Ovary SALPINGO - Laterality OOPHORECTOMY Unknown (HCC) DEBULKING TUMOR 05/09/2021 8:11 Malignant OVARY AM STAMP PRESSER Neoplasm Of Ovary Laterality Unknown (HCC) LAPAROTOMY - 05/09/2021 8:11 Malignant EXPLORATORY AM STAMP PRESSER Neoplasm Of Ovary Laterality Unknown (HCC) TYPE AND SCREEN Routine 05/09/2021 7:29 Results f or AM STAMP PRESSER this procedure are in the results section. documented in this encounter Results DX Chest Portable 1 View (05/12/2021 8:50 AM STAMP PRESSER) Anatomical Region Laterality Modality Chest, Thoracic RST LOS, Thoracic ARZ LOS, Thoracic N/A Digital Radiography FLA LOS Specimen (Source) Anatomical Collection Method Collection Time Re ceived Time Location / / Volume Laterality 05/12/2021 8:51 AM STAMP PRESSER Impressions 05/12/2021 8:52 AM STAMP PRESSER No change since 05/10/2021, given differences of technique. Bilateral pleural effusions, greater on the right, layering posteriorly. Stable borderline cardiomegaly, also is accentu ated by technique. Atelectasis or consolidation in both bases. No pneumoth orax. Narrative 05/12/2021 8:52 AM STAMP PRESSER EXAM: ??DX CHEST PORTABLE 1 VIEW Procedure [...] Ruben Rod M.D. IMG DIAGNOSTIC IMAGING PROCE RC (ABNORMAL) Basic Metabolic Panel (05/12/2021 12:35 AM STAMP PRESSER) P athologist Signature Potassium, S 4.7 3.6 - 5.2 05/12/2021 DTL mmol/L 1:20 AM STAMP PRESSER Sodium, S 140 135 - 145 05/12/2021 DTL mmol/L 1:20 AM STAMP PRESSER Chloride, S 105 98 - 107 05/12/2021 DTL mmol/L 1:20 AM STAMP PRESSER Bicarbonate, S 29 22 - 29 05/12/2021 DTL mmol/L 1:20 AM STAMP PRESSER Anion Gap 6 (L) 7 - 15 05/12/2021 DTL 1:20 AM STAMP PRESSER BUN (Blood Urea 12 6 - 21 05/12/2021 DTL Nitrogen), S mg/dL 1:20 AM STAMP PRESSER Creatinine 0.81 0.59 - 05/12/2021 DTL 1.04 mg/dL 1:20 AM STAMP PRESSER eGFR-Non 88 >=60 05/12/2021 DTL Black/ mL/min/BSA 1:20 AM STAMP PRESSER Martiniquais Comment: ----ADDITIONAL INFORMATION---- Estimated GFR calculated using the 2009 CKD_EPI creatinine equation. eGFR-Black/ >90 >=60 mL/min/BSA 2020 1:20 AM STAMP PRESSER DTL Comment: ----ADDITIONAL INFORMATION---- Estimated GFR calculated using the 2009 CKD_EPI creatinine equation. Calcium, Total, S 8.4 (L) 8.6 - 10.0 mg/dL 05/12/2021 1:20 AM STAMP PRESSER DTL Glucose, S 93 70 - 140 mg/dL 05/12/2021 1:20 AM STAMP PRESSER D TL Specimen Anatomical Collection Method Collection Time Receive d Time (Source) Location / / Volume Laterality Blood (Blood, 05/12/2021 12:35 05/12/2021 1:04 Venous) AM STAMP PRESSER AM STAMP PRESSER Ruben Rod M.D. LAB BLOOD ADD-ON Performing Organization Address City/State/ZIP Code Phon e Number [facility] - [address] [place], [place] [address] [facility] [place] [address] Laboratories-[facility] [address] [facility] (ABNORMAL) Basic Metabolic Panel (05/11/2021 12:15 AM STAMP PRESSER) P athologist Signature Potassium, S 4.8 3.6 - 5.2 05/11/2021 DTL mmol/L 1:01 AM STAMP PRESSER Sodium, S 140 135 - 145 05/11/2021 DTL mmol/L 1:01 AM STAMP PRESSER Chloride, S 103 98 - 107 05/11/2021 DTL mmol/L 1:01 AM STAMP PRESSER Bicarbonate, S 30 (H) 22 - 29 05/11/2021 DTL mmol/L 1:01 AM STAMP PRESSER Anion Gap 7 7 - 15 05/11/2021 DTL 1:01 AM STAMP PRESSER BUN (Blood Urea 13 6 - 21 05/11/2021 DTL Nitrogen), S mg/dL 1:01 AM STAMP PRESSER Creatinine 0.87 0.59 - 05/11/2021 DTL 1.04 mg/dL 1:01 AM STAMP PRESSER eGFR-Non 81 >=60 05/11/2021 DTL Black/ mL/min/BSA 1:01 AM STAMP PRESSER Martiniquais Comment: ----ADDITIONAL INFORMATION---- Estimated GFR calculated using the 2009 CKD_EPI creatinine equation. eGFR-Black/ >90 >=60 mL/min/BSA 2020 1:01 AM STAMP PRESSER DTL Comment: ----ADDITIONAL INFORMATION---- Estimated GFR calculated using the 2009 CKD_EPI creatinine equation. Calcium, Total, S 8.7 8.6 - 10.0 mg/dL 05/11/2021 1:01 AM STAMP PRESSER DTL Glucose, S 99 70 - 140 mg/dL 05/11/2021 1:01 AM STAMP PRESSER D TL Specimen Anatomical Collection Method Collection Time Receive d Time (Source) Location / / Volume Laterality Blood (Blood, 05/11/2021 12:15 05/11/2021 Venous) AM STAMP PRESSER 12:46 AM STAMP PRESSER Ruben Rod M.D. LAB BLOOD ADD-ON Performing Organization Address City/State/ZIP Code Phon e Number [facility] - [address] [place], [place] [address] [facility] [place] [address] [facility] [address] (ABNORMAL) CBC without Differential (05/11/2021 12:15 AM STAMP PRESSER) [facility] gist Method Time Signature Hemoglobin 8.4 (L) 11.6 - 05/11/2021 DTL 15.0 g/dL 1:30 AM STAMP PRESSER Hematocrit 25.9 (L) 35.5 - 05/11/2021 DTL 44.9 % 1:30 AM STAMP PRESSER Erythrocytes 2.75 (L) 3.92 - 05/11/2021 DTL 5.13 1:30 AM STAMP PRESSER x10(12)/L MCV 94.2 78.2 - 05/11/2021 DTL 97.9 fL 1:30 AM STAMP PRESSER RBC Distrib Width 18.0 (H) 12.2 - 05/11/2021 DTL 16.1 % 1:30 AM STAMP PRESSER Platelet Count 281 157 - 371 05/11/2021 DTL x10(9)/L 1:30 AM STAMP PRESSER Leukocytes 11.9 (H) 3.4 - 9.6 05/11/2021 DTL x10(9)/L 1:30 AM STAMP PRESSER Specimen Anatomical Collection Method Collection Time Receive d Time (Source) Location / / Volume Laterality Blood (Blood, 05/11/2021 12:15 05/11/2021 Venous) AM STAMP PRESSER 12:29 AM STAMP PRESSER Ruben Rod M.D. LAB BLOOD ADD-ON Performing Organization Address City/State/ZIP Code Phon e Number [facility] - [address] [place], [place] [address] [place] [address] [facility] [address] DX Chest AP or PA and Lateral 2 Views (05/10/2021 10:41 PM STAMP PRESSER) Anatomical Region Laterality Modality Chest, Thoracic RST LOS, Thoracic ARZ LOS, Thoracic N/A Digital Radiography FLA LOS Specimen (Source) Anatomical Collection Method Collection Time Re ceived Time Location / / Volume Laterality 05/10/2021 10:42 PM STAMP PRESSER Impressions 05/11/2021 8:59 AM STAMP PRESSER Small bilateral pleural effusions. Bilateral lower lung airspace opacities. Low lung volumes. Abdominal d rain. Narrative 05/11/2021 8:59 AM STAMP PRESSER EXAM: ??DX CHEST AP OR PA AND [...] IMAGING PROCE DURES Potassium (05/10/2021 4:42 AM STAMP PRESSER) P athologist Signature Potassium, S 4.8 3.6 - 5.2 05/10/2021 DTL mmol/L 5:48 AM STAMP PRESSER Specimen Anatomical Collection Method Collection Time Receive d Time (Source) Location / / Volume Laterality Blood (Blood, 05/10/2021 4:42 AM 05/10/20 21 5:39 Venous) STAMP PRESSER AM STAMP PRESSER Sussy Albert M.D. LAB BLOOD ADD-ON Performing Organization Address City/[facility] Code Phon e Number [facility] - [address] [place], [place] [address] [place] [address] [facility] [address] (ABNORMAL) Comprehensive Metabolic Panel (05/10/2021 1:19 AM STAMP PRESSER) P athologist Signature Potassium, S 5.4 (H) 3.6 - 5.2 05/10/2021 DTL mmol/L 1:58 AM STAMP PRESSER Sodium, S 137 135 - 145 05/10/2021 DTL mmol/L 1:58 AM STAMP PRESSER Chloride, S 103 98 - 107 05/10/2021 DTL mmol/L 1:58 AM STAMP PRESSER Bicarbonate, S 22 22 - 29 05/10/2021 DTL mmol/L 1:58 AM STAMP PRESSER Anion Gap 12 7 - 15 05/10/2021 DTL 1:58 AM STAMP PRESSER BUN (Blood Urea 14 6 - 21 05/10/2021 DTL Nitrogen), S mg/dL 1:58 AM STAMP PRESSER Creatinine 0.76 0.59 - 05/10/2021 DTL 1.04 mg/dL 1:58 AM STAMP PRESSER eGFR-Non >90 >=60 05/10/2021 DTL Black/ mL/min/BSA 1:58 AM STAMP PRESSER Martiniquais Comment: ----ADDITIONAL INFORMATION---- Estimated GFR calculated using the 2009 CKD_EPI creatinine equation. eGFR-Black/ >90 >=60 mL/min/BSA 2020 1:58 AM STAMP PRESSER DTL Comment: ----ADDITIONAL INFORMATION---- Estimated GFR calculated using the 2009 CKD_EPI creatinine equation. Calcium, Total, S 8.5 (L) 8.6 - 10.0 mg/dL 05/10/2021 1:58 AM STAMP PRESSER DTL Glucose, S 126 70 - 140 mg/dL 05/10/2021 1:58 AM STAMP PRESSER D TL Protein, Total, S 5.7 (L) 6.3 - 7.9 g/dL 05/10/2021 1:58 A M STAMP PRESSER DTL Albumin, S 4.2 3.5 - 5.0 g/dL 05/10/2021 1:58 AM STAMP PRESSER D TL Aspartate Aminotransferase 598 (H) 8 - 43 U/L 05/10/2021 1 :58 AM STAMP PRESSER DTL (AST), S Alkaline Phosphatase, S 49 35 - 104 U/L 05/10/2021 1: 58 AM STAMP PRESSER DTL Alanine Aminotransferase 297 (H) 7 - 45 U/L 05/10/2021 1:5 8 AM STAMP PRESSER DTL (ALT), S Bilirubin, Total, S 1.0 <=1.2 mg/dL 05/10/2021 1:58 AM STAMP PRESSER DTL Specimen Anatomical Collection Method Collection Time Receive d Time (Source) Location / / Volume Laterality Blood (Blood, 05/10/2021 1:19 AM 05/10/20 1:27 Venous) STAMP PRESSER AM STAMP PRESSER Che Martinez M.D. LAB BLOOD ADD-ON Performing Organization Address City/[facility] Phon e Number [facility] - [address] [place], [place] [address] [facility] [place] [address] [facility] 200 [facility] (ABNORMAL) CBC without Differential (05/10/2021 1:19 AM STAMP PRESSER) [facility] gist Method Time Signature Hemoglobin 9.6 (L) 11.6 - 05/10/2021 DHPM 15.0 g/dL 1:58 AM STAMP PRESSER Hematocrit 29.5 (L) 35.5 - 05/10/2021 DHPM 44.9 % 1:58 AM STAMP PRESSER Erythrocytes 3.15 (L) 3.92 - 05/10/2021 DHPM 5.13 1:58 AM STAMP PRESSER x10(12)/L MCV 93.7 78.2 - 05/10/2021 DHPM 97.9 fL 1:58 AM STAMP PRESSER RBC Distrib Width 17.5 (H) 12.2 - 05/10/2021 DHPM 16.1 % 1:58 AM STAMP PRESSER Platelet Count 270 157 - 371 05/10/2021 DHPM x10(9)/L 1:58 AM STAMP PRESSER Leukocytes 13.5 (H) 3.4 - 9.6 05/10/2021 DHPM x10(9)/L 1:58 AM STAMP PRESSER Specimen Anatomical Collection Method Collection Time Receive d Time (Source) Location / / Volume Laterality Blood (Blood, 05/10/2021 1:19 AM 05/10/20 1:27 Venous) STAMP PRESSER AM STAMP PRESSER Che Martinez M.D. LAB BLOOD ADD-ON Performing Organization Address City/[facility] Code Phon e Number [facility] - [address] [place], [place] [address] [facility] [place] [address] Laboratories-[address] DX Abdomen 1 View (05/09/2021 5:14 PM STAMP PRESSER) Anatomical Region Laterality Modality Abdomen, Abdominal RST LOS, Abdominal ARZ LOS, N/A Computed Radiography Abdominal FLA LOS Specimen (Source) Anatomical Collection Method Collection Time Re ceived Time Location / / Volume Laterality 05/09/2021 5:16 PM STAMP PRESSER Impressions 05/09/2021 5:34 PM STAMP PRESSER Examination negative for postoperative purposes. Surgical changes in the pelvis. Expected postoperative pn eumoperitoneum. Grossly unremarkable imaged lung bases. Elevated right hemidi aphragm. Narrative 05/09/2021 5:34 PM STAMP PRESSER EXAM: ??DX ABDOMEN 1 VIEW Procedure Note Aden Blanco D.O. - 05/09/2021 EXAM: DX ABDOMEN 1 VIEW IMPRESSION: Examination negative for postoperative p urposes. Surgical changes in the pelvis. Expected postoperative pn eumoperitoneum. Grossly unremarkable imaged lung bases. Elevated right hemidi aphragm. Denisha Oviedo M.D. IMNatalie DIAGNOSTIC IMAGING PROCE [facility] Patient Status (05/09/2021 3:39 PM STAMP PRESSER) athologist Signature Temperature 36.2 37.0 deg C 05/09/2021 METH 3:40 PM STAMP PRESSER FIO2 0.34 0.21=AIR 05/09/2021 METH 3:40 PM STAMP PRESSER Specimen Anatomical Collection Method Collection Time Receive d Time (Source) Location / / Volume Laterality Blood 05/09/2021 3:39 PM 3:39 STAMP PRESSER PM STAMP PRESSER Abbey Kelly APRN, MARK LAB BLOOD NON ADD-ON Performing Organization Address City/State/ZIP Code Phon e Number [facility] - [address] [place], [place] [address] [facility] [place] [address] [address] (ABNORMAL) Glucose, Whole Blood (05/09/2021 3:39 PM STAMP PRESSER) athologist Signature Glucose 174 (H) 70 - 140 05/09/2021 METH mg/dL 3:43 PM STAMP PRESSER Specimen Anatomical Collection Method Collection Time Receive d Time (Source) Location / / Volume Laterality Blood (Blood, 05/09/2021 3:39 PM 05/09/20 3:39 Arterial Line) STAMP PRESSER PM STAMP PRESSER Harrison Aguilar M.D. LAB BLOOD TROPONIN Performing Organization Address City/[facility]/ZIP [facility] Phon e Number [facility] - [address] [place], [place] [address] [place] [address] [facility] [address] Potassium, Blood (05/09/2021 3:39 PM STAMP PRESSER) athologist Signature Potassium, B 3.8 3.6 - 5.2 05/09/2021 METH mmol/L 3:43 PM STAMP PRESSER Specimen Anatomical Collection Method Collection Time Receive d Time (Source) Location / / Volume Laterality Blood (Blood, 05/09/2021 3:39 PM 05/09/20 3:39 Arterial Line) STAMP PRESSER PM STAMP PRESSER Harrison Aguilar M.D. LAB BLOOD NON ADD-ON Performing Organization Address City/State/ZIP Code Phon e Number [facility] - [address] [place], [place] [address] [place] [address] [facility] [address] Sodium, B (05/09/2021 3:39 PM STAMP PRESSER) athologist Signature Sodium, B 140 135 - 145 05/09/2021 3:43 METH mmol/L PM STAMP PRESSER Specimen Anatomical Collection Method Collection Time Receive d Time (Source) Location / / Volume Laterality Blood (Blood, 05/09/2021 3:39 PM 05/09/20 3:39 Arterial Line) STAMP PRESSER PM STAMP PRESSER Harrison Aguilar M.D. LAB BLOOD NON ADD-ON Performing Organization Address City/[facility]/ZIP Code Phon e Number [facility] - [address] [place], [place] [address] [place] [address] [facility] [address] (ABNORMAL) Calcium, Ionized (05/09/2021 3:39 PM STAMP PRESSER) athologist Signature Calcium, 4.51 (L) 4.65 - 05/09/2021 METH Ionized, B 5.30 mg/dL 3:43 PM STAMP PRESSER Specimen Anatomical Collection Method Collection Time Receive d Time (Source) Location / / Volume Laterality Blood (Blood, 05/09/2021 3:39 PM 05/09/20 3:39 Arterial Line) STAMP PRESSER PM STAMP PRESSER Harrison Aguilar M.D. LAB BLOOD NON ADD-ON Performing Organization Address City/[facility] Code Phon e Number [facility] - [address] [place], [place] [address] [facility] [place] [address] [facility] 200 [facility] (ABNORMAL) Blood Gas with Coox, Arterial (05/09/2021 3:39 PM STAMP PRESSER) P athologist Signature pO2 222 (H) 83 - 108 05/09/2021 METH mm Hg 3:43 PM STAMP PRESSER pCO2 40 32 - 45 mm 05/09/2021 METH Hg 3:43 PM STAMP PRESSER pH 7.40 7.35 - 05/09/2021 METH 7.45 pH 3:43 PM STAMP PRESSER Base Excess -1 -2 - 3 05/09/2021 METH mmol/L 3:43 PM STAMP PRESSER HCO3 25 22 - 26 05/09/2021 METH mmol/L 3:43 PM STAMP PRESSER Hemoglobin, B 8.1 (L) 11.6 - 05/09/2021 METH 15.0 g/dL 3:43 PM STAMP PRESSER O2Hb 98.3 (H) 94.0 - 05/09/2021 METH 98.0 % 3:43 PM STAMP PRESSER COHb 1.4 <3.0 % 05/09/2021 METH 3:43 PM STAMP PRESSER MetHb <1.0 <1.5 % 05/09/2021 METH 3:43 PM STAMP PRESSER CtO2 11.7 (L) 18.0 - 05/09/2021 METH 21.0 vol % 3:43 PM STAMP PRESSER Specimen Anatomical Collection Method Collection Time Receive d Time (Source) Location / / Volume Laterality Blood (Blood, 05/09/2021 3:39 PM 05/09/20 3:39 Arterial Line) STAMP PRESSER PM STAMP PRESSER Harrison Aguilar M.D. LAB BLOOD NON ADD-ON Performing Organization Address City/[facility] Code Phon e Number [facility] - [address] Patient Status (05/09/2021 1:01 PM STAMP PRESSER) athologist Signature Temperature 35.7 37.0 deg C 05/09/2021 METH 1:01 PM STAMP PRESSER FIO2 0.40 0.21=AIR 05/09/2021 METH 1:01 PM STAMP PRESSER Specimen Anatomical Collection Method Collection Time Receive d Time (Source) Location / / Volume Laterality Blood 05/09/2021 1:01 PM 1:01 STAMP PRESSER PM STAMP PRESSER Abbey Kelly APRN, CRNA LAB BLOOD NON ADD-ON Performing Organization Address City/State/ZIP Code Phon e Number [facility] [address] (ABNORMAL) Glucose, Whole Blood (05/09/2021 1:01 PM STAMP PRESSER) athologist Signature Glucose 185 (H) 70 - 140 05/09/2021 METH mg/dL 1:08 PM STAMP PRESSER Specimen Anatomical Collection Method Collection Time Receive d Time (Source) Location / / Volume Laterality Blood (Blood, 05/09/2021 1:01 PM 05/09/20 1:01 Arterial Line) STAMP PRESSER PM STAMP PRESSER Harrison Aguilar M.D. LAB BLOOD TROPONIN Performing Organization Address City/State/ZIP Code Phon e Number [address] Potassium, Blood (05/09/2021 1:01 PM STAMP PRESSER) athologist Signature Potassium, B 3.6 3.6 - 5.2 05/09/2021 METH mmol/L 1:08 PM STAMP PRESSER Specimen Anatomical Collection Method Collection Time Receive d Time (Source) Location / / Volume Laterality Blood (Blood, 05/09/2021 1:01 PM 05/09/20 1:01 Arterial Line) STAMP PRESSER PM STAMP PRESSER Harrison Aguilar M.D. LAB BLOOD NON ADD-ON Performing Organization Address City/[facility] Phon e Number [facility] - [address] 200 [facility] Sodium, B (05/09/2021 1:01 PM STAMP PRESSER) athologist [facility] Sodium, B 140 135 - 145 05/09/2021 1:08 METH mmol/L PM STAMP PRESSER Specimen Anatomical Collection Method Collection Time Receive d Time (Source) Location / / Volume Laterality Blood (Blood, 05/09/2021 1:01 PM 05/09/20 1:01 Arterial Line) STAMP PRESSER PM STAMP PRESSER Harrison Aguilar M.D. LAB BLOOD NON ADD-ON Performing Organization Address City/[facility] Phon e Number [facility] - [address] (ABNORMAL) Calcium, Ionized (05/09/2021 1:01 PM STAMP PRESSER) athologist [facility] Calcium, 4.52 (L) 4.65 - 05/09/2021 METH Ionized, B 5.30 mg/dL 1:08 PM STAMP PRESSER Specimen Anatomical Collection Method Collection Time Receive d Time (Source) Location / / Volume Laterality Blood (Blood, 05/09/2021 1:01 PM 05/09/20 1:01 Arterial Line) STAMP PRESSER PM STAMP PRESSER Harrison Aguilar M.D. LAB BLOOD NON ADD-ON Performing Organization Address City/State/[facility] Phon e Number [facility] - [address] (ABNORMAL) Blood Gas with Coox, Arterial (05/09/2021 1:01 PM STAMP PRESSER) athologist Signature pO2 213 (H) 83 - 108 05/09/2021 METH mm Hg 1:08 PM STAMP PRESSER pCO2 38 32 - 45 mm 05/09/2021 METH Hg 1:08 PM STAMP PRESSER pH 7.41 7.35 - 05/09/2021 METH 7.45 pH 1:08 PM STAMP PRESSER Base Excess -1 -2 - 3 05/09/2021 METH mmol/L 1:08 PM STAMP PRESSER HCO3 24 22 - 26 05/09/2021 METH mmol/L 1:08 PM STAMP PRESSER Hemoglobin, B 9.2 (L) 11.6 - 05/09/2021 METH 15.0 g/dL 1:08 PM STAMP PRESSER O2Hb 99.7 (H) 94.0 - 05/09/2021 METH 98.0 % 1:08 PM STAMP PRESSER COHb 1.1 <3.0 % 05/09/2021 METH 1:08 PM STAMP PRESSER MetHb <1.0 <1.5 % 05/09/2021 METH 1:08 PM STAMP PRESSER CtO2 13.4 (L) 18.0 - 05/09/2021 METH 21.0 vol % 1:08 PM STAMP PRESSER Specimen Anatomical Collection Method Collection Time Receive d Time (Source) Location / / Volume Laterality Blood (Blood, 05/09/2021 1:01 PM 05/09/20 1:01 Arterial Line) STAMP PRESSER PM STAMP PRESSER Harrison Aguilar M.D. LAB BLOOD NON ADD-ON Performing Organization Address City/State/[facility] Code Phon e Number [facility] - [address] [place], [place] [address] [facility] [place] [address] [facility] [address] [facility] Surgical Pathology, Frozen Lab (05/09/2021 10:04 AM STAMP PRESSER) Component Value Ref Test Analysis Performed Pathologis t Range Method Time At Signature 05/11/2021 METH 2:48 PM STAMP PRESSER Participated in Tim Rodrigues M.D. 05/11/2021 METH the -Pathology 2:48 PM Interpretation Resident STAMP PRESSER Report Sophia Ndiaye M.D. [phone] 05/11/2021 MET H electronically 2:48 PM signed by STAMP PRESSER I verify that I have examined all relevant slides/materials for the specimen(s) and rendered or confirmed the diagnosis. Gross Description A. ??Received fresh labeled umbilical nodule is a 2.2 x 05/11/2021 METH 1.7 2:48 PM x 0.6 cm fragment of red-orosco soft tissue. ??There is a 0.7 x STAMP PRESSER 0.6 cm nodule identified upon sectioning. ??All submitted for permanent sections only. ??Grossed by PDH. B. ??Received fresh labeled falciform ligament is a 3.9 x 3.2 x 0.6 cm portion of pink-red fibrofatty tissue. [employer] tissue submitted for permanent sections only. Grossed by PDH. C. ??Received fresh labeled omentum is a 42 x 12 x 1 cm portion of omentum. ??There is a 0.3 x 0.2 x 0.2 cm calcified nodule. ??Lymph nodes are identified. ??O[employer] tissu e submitted for permanent sections only. ??Grossed by SOFIE. Nader. ??Received fresh labeled liver wedge segment 4B/3 nodule is a 18 gram, 4.3 x 3.8 x 3.7 cm liver wedge specimen. ??A single 2.6 x 2.4 x 1.4 cm orosco-white mass is present 0.1 cm from the inked surgical margin. ??Margin is submitted perpendicularly. ??O[employer]iner tissue submitted for permanent sections only. ??Grossed by EDNA. E. ??Received fresh labeled right diaphragm is a 7.1 x 3.2 x 1.6 cm portion of red-orosco fibrous tissue. ??At one aspect, there is a 3.6 x 1.7 x 0.6 cm nodule. ??Additional smaller nodules are identified. ??Oil Refiner tissue submitted for permanent sections only. ??Grossed by PDH. F. ??Received fresh labeled right anterior abdominal wall is a 3.8 x 2 x 0.5 cm portion of red-pink, peritonealized fibromembranous tissue. ??A 0.2 cm nodule is present. [employer] tissue submitted for permanent sections only. Grossed by EDNA. G. ??Received fresh labeled right pelvic gutter is a 2.2 x 1 x 0.2 cm aggregate of red-pink fibromembranous tissue. All submitted for permanent sections only. ??Grossed by RAL. H. ??Received fresh labeled left mid diaphragm is a 2.2 x 1 x 0.2 cm portion of cauterized pink-white fibromembranous tissue. ??All submitted for permanent sections only. Grossed by SOFIE. I. ??Received fresh labeled spleen is a 238 gram, 14.6 x 8.8 x 4.2 cm splenectomy specimen. ??The capsule is smooth and unremarkable. ??There is a 3 x 1.8 x 1.2 cm nodule. Hilar lymph nodes are not identified. ??Oil [employer]iner tissue submitted for permanent sections only. ??Grossed [...] tube has multiple adhesions and serosal implants. ??O[employer]iner tissue submitted for permanent sections only. ??Grossed [...] 3 x 1.6 cm of soft tissue. [employer] tissue submitted for permanent sections only. Grossed by RAK. Gallegos ??Received fresh labeled portion of sigmoid colon is a 13.5 cm in length portion of colon. ??There are serosal tumor implants and adhesions. ??The mucosa is unremarkable. [employer]iner tissue submitted for permanent sections only. Grossed by EDNA. Block Summary A Umbilical nodule 05/11/2021 METH A1 Umbilical nodule 1 2:48 PM A2 Umbilical nodule 2 STAMP PRESSER B Falciform ligament B1 Nodular area 1 [...] will be performed on block J2 at [employer] 3:33 PM [facility], [place], [place]. STAMP PRESSER Signed by James Pantoja M.D., Ph.D. 07/01/2021 3:33 PM Comment: REVISED RESULTS Interpretation FINAL DIAGNOSIS 07/01/2021 3:33 PM STAMP PRESSER METH J. ??Fallopian tube and ovary, right, [...] Volume Laterality Tissue 05/09/2021 10:04 (Umbilicus) AM STAMP PRESSER Tissue (Pelvis) 05/09/2021 10:06 AM STAMP PRESSER Tissue (Omentum) 05/09/2021 10:57 AM STAMP PRESSER Tissue (Liver) 05/09/2021 11:43 AM STAMP PRESSER Tissue 05/09/2021 11:59 (Diaphragm, AM STAMP PRESSER Right) Tissue (Abdomen) 05/09/2021 12:07 PM STAMP PRESSER Tissue (Pelvis, 05/09/2021 12:11 Right) PM STAMP PRESSER Tissue 05/09/2021 12:36 (Diaphragm, Left) PM STAMP PRESSER Tissue (Spleen) 05/09/2021 12:57 PM STAMP PRESSER Tissue (Ovary, 05/09/2021 1:22 PM Right) STAMP PRESSER Tissue (Uterus) 05/09/2021 3:05 PM STAMP PRESSER Tissue (Colon) 05/09/2021 3:10 PM STAMP PRESSER Narrative This result has an attachment that is no t available. Denisha Oviedo M.D. LAB SURG PATH ORDERABLES Performing Organization Address City/[facility] Phon e Number [phone] [place] [address] Type and Screen (with reflex Antibody ID) (05/09/2021 7:29 AM STAMP PRESSER) [facility] gist Method Time Signature ABORh B Neg Not 05/09/2021 ETRM applicable 9:21 AM STAMP PRESSER Antibody Negative Negative 05/09/2021 ETRM Screen 9:32 AM STAMP PRESSER Type & Screen 05/12/2021 05/09/2021 ETRM Expiration 23:59 9:21 AM STAMP PRESSER Testing [place] DEFAULT 05/09/2021 ETRM Location 8:27 AM STAMP PRESSER Specimen Anatomical Collection Method Collection Time Receive d Time (Source) Location / / Volume Laterality Blood (Blood, 05/09/2021 7:29 AM 05/09/20 8:27 Venous) STAMP PRESSER AM STAMP PRESSER Denisha Oviedo M.D. LAB BLOOD BANK TEST ORDERABL ES Performing Organization Address [facility] Phon e Number [facility] [employer] [address] [place] [address] [facility] 200 [facility] documented in this encounter Visit Diagnoses Diagnosis [...] tablet 1,000 mg Given 05/14/2021 6:19 AM STAMP PRESSER 1,000 mg (TYLENOL) 1,000 mg, oral, Every 6 hours, First dose on Sun05/10/21 at 0000, not to exceed 4 grams in 24 hours. Given 05/13/2021 11:53 PM STAMP PRESSER 1,000 mg Given 05/13/2021 5:50 PM STAMP PRESSER 1,000 mg benzocaine-menthoL 15-3.6 mg per lozenge 1 Given 05/10 1:26 AM STAMP PRESSER 1 lozenge lozenge (CEPACOL) 1 lozenge, oral, As needed, sore throat, Starting on Sun05/09/21 at 2026 bupivacaine liposome (PF) 20 Given 05/09/2021 4:28 PM STAMP PRESSER 120 mL Abdominal Tissue mL in sodium chloride (PF) 0.9 % 120 mL injection As needed, Starting on Sun05/09/21 at 1628, Intra-Op calcium carbonate chewable tablet Given 05/11/2021 6:3 1 PM STAMP PRESSER 400 mg of calcium 400 mg of calcium (TUMS) 400 mg of calcium, oral, 3 times daily PRN, indigestion, heartburn, Starting on Sun05/09/21 at 2027, Doses listed are in mg of elemental calcium. Take with food. 500 mg calcium carbonate contains 200 mg of elemental calcium. cellulose, oxidized 2 x 4 pad Given 05/09/2021 11:42 AM STAMP PRESSER 1 each Other (SURGICEL) As needed, Starting on Sun05/09/21 at 1142, Intra-Op cyclobenzaprine tablet 5 mg (FLEXERIL) Given 05/14/2021 2:11 AM STAMP PRESSER 5 mg 5 mg, oral, 3 times daily PRN, muscle spasms, Starting on Misty 05/12/21 at 0744 Given 05/13/2021 8:26 PM STAMP PRESSER 5 mg Given 05/13/2021 2:01 PM STAMP PRESSER 5 mg diphenhydrAMINE capsule 25 mg (BENADRYL) Given 05/10/2021 4:31 AM STAMP PRESSER 25 mg 25 mg, oral, Every 6 hours PRN, itching, sleep, Starting on Sun05/10/21 at 0251 enoxaparin injection 40 mg Given 05/13/2021 2:01 PM STAMP PRESSER 40 mg Left Outer Thigh (LOVENOX) 40 mg, subcutaneous, Daily, First dose on Sun05/11/21 at 1400 Given 05/12/2021 2:58 PM STAMP PRESSER 40 mg Right Outer Thigh Given 05/11/2021 2:06 PM STAMP PRESSER 40 mg Right Upper Hip HYDROmorphone (PF) [...] oral pain medication. Given 05/10/2021 7:52 PM STAMP PRESSER 0.4 mg Given 05/10/2021 3:31 PM STAMP PRESSER 0.4 mg HYDROmorphone tablet 2 mg (DILAUDID) Given 05/14/2021 10:29 AM STAMP PRESSER 2 mg 2 mg, oral, Every 4 hours PRN, moderate pain or score 4-6 of 10, Starting on Sun05/10/21 at 1518 Given 05/14/2021 6:23 AM STAMP PRESSER 2 mg Given 05/12/2021 2:59 PM STAMP PRESSER 2 mg HYDROmorphone tablet 4 mg (DILAUDID) Given 05/14/2021 2:11 AM STAMP PRESSER 4 mg 4 mg, oral, Every 4 hours PRN, severe pain or score 7-10 of 10, Starting on Sun05/10/21 at 1518 Given 05/13/2021 8:26 PM STAMP PRESSER 4 mg Given 05/13/2021 4:19 PM STAMP PRESSER 4 mg ibuprofen tablet 600 mg (ADVIL,MOTRIN) Given 05/14/2021 6:19 AM STAMP PRESSER 600 mg 600 mg, oral, Every 6 hours, First dose on Sun05/10/21 at 1900, start 6 hours after last ketorolac dose administered Given 05/13/2021 11:54 PM STAMP PRESSER 600 mg Given 05/13/2021 5:50 PM STAMP PRESSER 600 mg lisdexamfetamine capsule 70 mg (VYVANSE) Given 05/14/2021 6:19 AM STAMP PRESSER 70 mg 70 mg, oral, Daily, First dose on Sun05/10/21 at 0700, See tube feeding guidelines for tube feeding administration instructions. Given 05/13/2021 6:06 AM STAMP PRESSER 70 mg Given 05/12/2021 6:56 AM STAMP PRESSER 70 mg magnesium hydroxide suspension 30 mL (MILK OF Given 8:26 PM STAMP PRESSER 30 mL MAGNESIA) 30 mL, oral, 2 times daily, First dose on Sun05/09/21 at 2100, Starting evening of surgery. After first bowel movement discontinue Magnesium hydroxide Given 05/13/2021 9:55 AM STAMP PRESSER 30 mL Given 05/12/2021 7:07 PM STAMP PRESSER 30 mL melatonin tablet 3 mg Given 05/11/2021 10:21 PM STAMP PRESSER 3 mg 3 mg, oral, Bedtime PRN, sleep, Starting on Sun05/09/21 at 2027 nalbuphine injection 2.5 mg (NUBAIN) Given 05/10/2021 1:08 PM STAMP PRESSER 2.5 mg 2.5 mg, intravenous, Every 4 hours PRN, itching, Starting on Sun05/09/21 at 1840, For 4 doses, PACU & Post-Op Given 05/09/2021 9:31 PM STAMP PRESSER 2.5 mg ondansetron (PF) injection 4 mg (ZOFRAN) Given 05/11/2021 7:29 PM STAMP PRESSER 4 mg 4 mg, intravenous, Every 6 hours PRN, nausea, vomiting, Starting on Sun05/09/21 at 1840, Reassess for nausea or vomiting after at least 10 minutes. If nausea or vomiting persists administer next ordered antiemetic medications (order for antiemetic medication administration ondansetron then droperidol then promethazine). Given 05/10/2021 3:41 PM STAMP PRESSER 4 mg oxybutynin tablet 5 mg (DITROPAN) 5 mg, oral, Every 8 hours PRN, bladder spasms, Startin g on Sun05/09/21 at 2025 promethazine injection 6.25 mg (PHENERGA N) Given 05/11/2021 10:11 PM STAMP PRESSER 6.25 mg 6.25 mg, intravenous, Every 6 hours PRN, nausea, vomiting, Starting on Sun05/09/21 at 1840, RASS must be -2 or higher to administer. Reassess for nausea/vomiting after at least 10 minutes. If nausea or vomiting persists administer next ordered antiemetic medications (order for antiemetic medication administration ondansetron then droperidol then promethazine). sennosides tablet 17.2 mg (SENOKOT) Given 05/13/2021 10:30 PM STAMP PRESSER 17.2 mg 17.2 mg, oral, Daily, First dose on Sun05/13/21 at 211 simethicone chewable tablet 80 mg (MYLIC ON) Given 05/13/2021 9:55 AM STAMP PRESSER 80 mg 80 mg, oral, 4 times daily PRN, flatulence, Starting on Sun05/09/21 at 2025 Given 05/13/2021 3:38 AM STAMP PRESSER 80 mg Given 05/11/2021 3:35 PM STAMP PRESSER 80 mg documented in this encounter Active and Recently Administered Medications Times are shown in STAMP PRESSER. Scheduled Medication Order 05/12/2021 05/13/2021 05/14/2021 acetaminophen tablet 1,000 mg (TYLENOL) 0657 (Given - Provider: Jessie Rebolledo RAustin)1222 (Given - Provider: Angela Paniagua R.N.)1803 (Given - Provider: Celeste Goldberg RDayan.)2304 (Given - Provider: Celeste Goldberg RAustin) 0606 (Given - Provider: Jessie Rebolledo R.N.)1126 (Given - Provider: Jaimee Morales RChapincitoNChapincito)1750 (Given - Provider: Celeste Goldberg R.N.)2353 (Given - Provider: Maximo Lucia.N.) 0619 (Given - Provider: Jessie Rebolledo R.N.) 1,000 mg, oral, Every 6 hours, First dos e on Sun05/10/21 at 0000, not to exceed 4 grams in 24 hours. enoxaparin injection 40 mg (LOVENOX) 1458 (Given - Pro vider: Angela Paniagua RAustin) 1401 (Given - Provider: Jaimee Morales RChapincitoNChapincito) 40 mg, subcutaneous, Daily, First dose on Sun05/11/21 at 1400 ibuprofen tablet 600 mg (ADVIL,MOTRIN) 0031 (Given - P rovider: Jessie Rebolledo R.N.)0702 (Given - Provider: Jessie Rebolledo R.N.)1222 (Given - Provider: Angela Paniagua RChapincitoN.)1803 (Given - Provider: Celeste Goldberg R.N.) 0338 (Given - Provider: Maximo Lucia.N.)0955 (Given - Provider: Jaimee Morales RChapincitoN.)1750 (Given - Provider: Celeste Goldberg RDayan.)2354 (Given - Provider: Jessie Rebolledo R.N.) 0619 [...] 0957 (Not Given - Provider: Angela Paniagua RChapincitoNChapincito - Reason: Order parameters not met - Comment: having loose stools and gas)1907 (Given - Provider: Celeste Goldberg RAustin) 0955 (Given - Provider: Maximo PettitChapincitoNChapincito)2025 (Given - Provider: Celeste Goldberg R.N.) 0853 [...] 0820 (Given - P rovider: Angela Paniagua RAustin)1459 (Given - Provider: Angela Paniagua RChapincitoNChapincito)2159 (Given - Provider: Celeste Goldberg R.N.) 0606 (Given - Provider: Shentia Kesha , R.N.)1401 (Given - Provider: Adonay PettitNChapincito)2026 (Given - Provider: Celeste Goldberg R.N.) 0211 (Given - Provider: Adonay LuciaNChapincito) [...] 414 (See Alternative - Provider: Jessie Rebolledo RChapincitoN.)0820 (Given - Provider: Angela Paniagua R.N.)1459 (Given - Provider: Angela Paniagua R.N.)1907 (See Alternative - Provider: Celeste Goldberg R.N.) 0338 (See Alternative - Provider: Adonay BridgesN.)0731 (See Alternative - Provider: Jaimee Morales RAustin)1128 (See Alternative - Provider: Jaimee Morales RChapincitoN.)1619 (See Alternative - P rovider: Celeste Goldberg R.N.) 0211 (See Alternative - Provider: Adonay BridgesN.)0623 (Given - Provider: Jessie Rebolledo R.N.)1029 (Given [...]
--- OUTSIDE RECORDS SUMMARY | 2022-04-04 14:14 | XMS_ITS | Encounter Summary ---
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 [facility] Procedures Stomal Therapy [address] [place], [place] [phone] Referral ID Status Reason Start Date Expiration Date Visits Requ ested Visits Authorized [id number] Closed 05/03/2021 05/03/2022 1 1 Encounter Details Date Type Department Care Team Description 05/04/2021 Clinical Support Division of [place] Mike Oviedo M.D. 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 [employer]GN [employer] MECH[employer]IC documented in this encounter Plan of Treatment Upcoming Encounters Date Type Specialty Care Team Description 04/11/2022 Clinical Communication Admitting/Central Scheduling 04/13/2022 Office Visit Oncology Walter Barnhart M.D., Ph.D. [address] [place] [phone] documented as of this encounter Procedures Procedure Name Priority Date/Time Associated Diagnosis Comme nts CRS STOMAL THERAPY Routine 05/04/2021 3:00 PM [employer]IGN [employer] MECH[employer]IC Malignant Ne oplasm Of Ovary Laterality Unknown (HCC) documented in this encounter Visit Diagnoses Diagnosis Education Need Ostomy - Primary Malignant Neoplasm Of Ovary Laterality U nknown (HCC) documented in this encounter
--- OUTSIDE RECORDS SUMMARY | 2022-04-04 14:14 | XMS_ITS | Encounter Summary ---
:1975 Author Organization [facility] Address [address] [place] [address] Care Team Providers Name Role Phone Unavailable Primary Care Provider Unavailable Reason for Referral Outpatient (Routine) - Closed Specialty Diagnoses / Procedures Referred By Contact Refer robert To Contact Obstetrics and Ruben Rod M.D. [facility] Gynecology [address] [place] [phone] Referral ID Status Reason Start Date Expiration Date Visits Requ ested Visits Authorized [id number] Closed 05/13/2021 05/13/2022 1 1 Scheduling Instructions 6 weeks appointment with ANIMAL NUTRITION CONSULTANT/PA utpatient (Routine) - Closed Specialty Diagnoses / Procedures Referred By Contact Refer robert To Contact General Surgery Agnes Drew M.D. [address] [phone] Referral ID Status Reason Start Date Expiration Date Visits Requ ested Visits Authorized [id number] Closed 05/10/2021 05/10/2022 1 1 Scheduling Instructions Video visit PATIONAL THERAPY TEACHER Reason for Visit Auth/Cert Specialty Diagnoses / Procedures Referred By Contact Refer robert To Contact Diagnoses Malignant Neoplasm Of Ovary [...] Expiration Date Visits Requ ested Visits Authorized [id number] 1 1 Encounter Details Date Type Department Care Team Description 05/09/2021 - Hospital Encounter [facility] Ivelisse Denisha gramajo History Of Malignant Neoplasm Of Ovary (Primary Dx); 05/14/2021 Louie Rainey M.D. Malignant Neoplasm Of Ovary Laterality [facility] [place], [facility] [address] [facility], [place], [place] Floor [phone] [address] [facility] [phone] [place], [place] (Work) [phone] Social History Tobacco Use [...] Comments Blood Pressure 141/71 05/14/2021 10:30 AM OCCUPATIONAL THERAPY TEACHER Pulse 88 05/14/2021 10:30 AM OCCUPATIONAL THERAPY TEACHER Temperature 36.8 ??C (98.2 ??F) 05/14/2021 10:30 AM OCCUPATIONAL THERAPY TEACHER Respiratory Rate 16 05/14/2021 10:30 AM OCCUPATIONAL THERAPY TEACHER Oxygen Saturation 97% 05/14/2021 10:30 AM OCCUPATIONAL THERAPY TEACHER Inhaled Oxygen Concentration - - Weight 62 kg (136 lb 11 oz) 05/13/2021 8:00 AM OCCUPATIONAL THERAPY TEACHER Height 167 cm (5' 5.75) 05/09/2021 7:27 AM OCCUPATIONAL THERAPY TEACHER Body Mass Index 22.23 05/09/2021 7:27 AM OCCUPATIONAL THERAPY TEACHER documented in this encounter Discharge Summaries Lynn [...] Report electronically signed by Sophia Ndiaye M.D. [id number] I verify that I have examined all relevant slides/materials for the specimen(s) and rendered or confirmed the diagnosis. Gross Description A. Received fresh labeled umbilical nodule is a 2.2 x 1.7 x 0.6 cm fragment of red-orosco soft tissue. There is a 0.7 x 0.6 cm nodule identified upon sectioning. All submitted for permanent sections only. Grossed by [facility]. B. Received fresh labeled falciform ligament is a 3.9 x 3.2 x 0.6 cm portion of pink-red fibrofatty tissue. Proof Press Operator tissue submitted for permanent sections only. Grossed by [facility]. C. Received fresh labeled omentum is a 42 x 12 x 1 cm portion of omentum. There is a 0.3 x 0.2 x 0.2 cm calcified nodule. Lymph nodes are identified. Proof Press Operator tissue submitted for permanent sections only. [facility]. Received fresh labeled liver wedge segment 4B/3 nodule is a 18 gram, 4.3 x 3.8 x 3.7 cm liver wedge specimen. A single 2.6 x 2.4 x 1.4 cm orosco-white mass is present 0.1 cm from the inked surgical margin. Margin is submitted perpendicularly. Proof Press Operator tissue submitted for permanent sections only. Grossed by [facility] Beckham E. Received fresh labeled right diaphragm is a 7.1 x 3.2 x 1.6 cm portion of red-orosco fibrous tissue. At one aspect, there is a 3.6 x 1.7 x 0.6 cm nodule. Additional smaller nodules are identified. Proof Press Operator tissue submitted for permanent sections only. Grossed by F. Received fresh labeled right anterior abdominal wall is a 3.8 x 2 x 0.5 cm portion of red-pink, peritonealized fibromembranous tissue. A 0.2 cm nodule is present. Proof Press Operator tissue submitted for permanent sections only. Grossed [...] nodule. Hilar lymph nodes are not identified. Proof Press Operator tissue submitted for permanent sections only. Grossed [...] tube has multiple adhesions and serosal implants. Proof Press Operator tissue submitted for permanent sections only. Grossed [...] 3 x 1.6 cm of soft tissue. Proof Press Operator tissue submitted for permanent sections only. Grossed by RAK. Gallegos Received fresh labeled portion of sigmoid colon is a 13.5 cm in length portion of colon. There are serosal tumor imp lants and adhesions. The mucosa is unremarkable. Proof Press Operator tissue submitted for permanent sections only. Grossed [...] including a pelvic exam. If scheduled at [facility] then appointment desk will contact [...] important to have your annual flu vaccine PATIONAL THERAPY TEACHER documented in this encounter Discharge Instructions AttachmentsThe following attachments cannot be sent through Care Everywhere. Apixaban (By mouth) (Cambodian)Cyclobenzaprine (By mouth) (Cambodian)Hydromorphone (By mouth) (Cambodian)documented in this encounter Medications at Time of Discharge Medication Sig Dispensed Refills Start Date End Date rijbxyp-tfxp-njfjs-oreg- Take 1 tablet by 0 capryl 100 [...] The patient was evaluated and discussed with RENAL TECHNICIAN ONC fellow Dr. Lagos and Dr. Stone who are in agreement with the plan of care. PATIONAL THERAPY TEACHER Ruben Rod M.D. - 05/13/2021 5:40 AM [...] M.D. Please direct questions/concerns to service pagers. PATIONAL THERAPY TEACHER Ruben Rod M.D. - 05/12/2021 5:42 AM [...] Neoplasm Of Ovary Code Status: Full Code Automotive Project Engineer: Discussed final pathology report. She will f/u [...] M.D. Please direct questions/concerns to service pagers. PATIONAL THERAPY TEACHER Ruben Rod M.D. - 05/11/2021 6:15 AM [...] Neoplasm Of Ovary Code Status: Full Code Automotive Project Engineer: Follow up final pathology. She will f/u [...] M.D. Please direct questions/concerns to service pagers. PATIONAL THERAPY TEACHER Sussy Albert M.D. - 05/10/2021 10:27 PM [...] with the patient and as well as merchandising assistant onc fellow electronic equipment set up operator Dr. Lagos. Addendum: Chest x-ray completed and [...] & Screen Expiration 05/12/2021 23:59 Testing Location [place] Blood Gas with Coox, Arterial Collection Time: [...] Date/Time SARS CoV-2 RNA, PCR, Varies Asymptomatic [[id number]] Collected: 05/08/21 0708 Lab Status: Final result [...] and Drug Administration and is used per manufacturing tech's instructions. Performance characteristics were verified by [facility] in a manner consistent with CLIA requirements. Visit the CDC website: https://www.cdc.gov/coronavirus/ for the most recent guidelines on Coronavirus testing. Fact Sheet for Healthcare Providers: https://www.fda.gov/media/743041/download Fact Sheet for Patients: https://www.fda.gov/media/745938/download SARS Coronavirus 2, PCR Rapid, V Symptomatic [[id number]] Collected: 04/25/21 0320 Lab Status: Final result [...] at the following links: For Healthcare Providers: https://www.fda.gov/media/251196/download For Patients: https://www.fda.gov/media/952766/download SARS Coronavirus 2, Source, Rapid Swab, Nasopharynx Bacteria / Ebony Culture, Blood #1 [[id number]] Collected: 04/25/21 0207 Lab Status: Final result Specimen: Blood, Peripheral Draw Updated: 04/30/21 0303 Bacteria/Ebony Culture, Blood No growth after 5 day/s of incubation. Bacteria / Ebony Culture, Blood #2 [[id number]] Collected: 04/25/21 0158 Lab Status: Final result [...] concerns. Cami Duran MD Resident General Surgery [employer] [phone] pager phone [email or web address] PATIONAL THERAPY TEACHER Ruben Rod M.D. - 05/10/2021 5:09 AM [...] 6724 [P.O.:720] Out: 3205 [Urine:2445; Drains:260] 05/09 190 - 05/10 700 In: 1524 [P.O.:420] Out: [...] Neoplasm Of Ovary Code Status: Full Code Automotive Project Engineer: Follow up final pathology. She will f/u [...] am available if needed. Sussy Albert M.D. PATIONAL THERAPY TEACHER Harrison Zaldivar Pharm.D., R.Ph. - 05/09/2021 6:56 AM CST Images from the original note were not included. Admission Medication History Note Adherence issues: No concerns Medication list source: Patient Medication related information: Patient stated she would like to continue her [employer] Vyvanse while in the hospital. Prior to Admission Medications Med List Status: Pharmacy Complete Set By: Harrison Zaldivar, D., R.Ph. at 05/09/2021 6:56 AM Taking? Last [...] for nausea or vomiting (unrelieved by ondansetron). flurtkb-jvdt-tyhjl-oreg-capryl 100 mg-150 mg- 50 mg-150 mg capsule 05/02/2021 -- -- Take 1 tablet by mouth daily. Vyvanse 70 mg capsule 05/08/2021 01/24/21 -- Take 70 mg by mouth daily. PATIONAL THERAPY TEACHER documented in this encounter Nursing Notes Celeste [...] unit in a wheelchair with transport services. PATIONAL THERAPY TEACHER Celeste Goldberg R.N. - 05/09/2021 9:44 PM [...] remains free from fall/fall injury Outcome: Progressing PATIONAL THERAPY TEACHER documented in this encounter OR Notes Op Note - Wilma Castro M.D. 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 PATIONAL THERAPY TEACHER Op Note - Denisha Oviedo M.D. 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 Residual: 0/micro. Automotive Project Engineer Organs, Pelvic Colon & Peritoneum Initial: > [...] recovery in stable condition. Denisha Oviedo M.D. PATIONAL THERAPY TEACHER Op Note - Jacobo Banda M.D. - [...] primary team post operatively. Jacobo Banda MD PATIONAL THERAPY TEACHER Brief Op Note - Che Martinez M.D. [...] 6300 Crystalloids Complications None Che Martinez M.D. PATIONAL THERAPY TEACHER documented in this encounter Miscellaneous Notes Result Encounter Note - Che Martinez M.D. - 05/12/2021 4:51 PM OCCUPATIONAL THERAPY TEACHER I have reviewed the final pathology report and the identified diagnosis is consistent with the patient's clinical presentation. PATIONAL THERAPY TEACHER Hospital Course - Lynn Armstrong M.D. - [...] Report electronically signed by Sophia Ndiaye M.D. [phone] I verify that I have examined all relevant slides/materials for the specimen(s) and rendered or confirmed the diagnosis. Gross Description A. Received fresh labeled umbilical nodule is a 2.2 x 1.7 x 0.6 cm fragment of red-orosco soft tissue. There is a 0.7 x 0.6 cm nodule identified upon sectioning. All submitted for permanent sections only. Grossed by [facility]. B. Received fresh labeled falciform ligament is a 3.9 x 3.2 x 0.6 cm portion of pink-red fibrofatty tissue. Proof Press Operator tissue submitted for permanent sections only. Grossed by [facility]. C. Received fresh labeled omentum is a 42 x 12 x 1 cm portion of omentum. There is a 0.3 x 0.2 x 0.2 cm calcified nodule. Lymph nodes are identified. Proof Press Operator tissue submitted for permanent sections only. Grossed by [facility]. D. Received fresh labeled liver wedge segment 4B/3 nodule is a 18 gram, 4.3 x 3.8 x 3.7 cm liver wedge specimen. A single 2.6 x 2.4 x 1.4 cm orosco-white mass is present 0.1 cm from the inked surgical margin. Margin is submitted perpendicularly. Proof Press Operator tissue submitted for permanent sections only. Grossed by S . E. Received fresh labeled right diaphragm is a 7.1 x 3.2 x 1.6 cm portion of red-orosco fibrous tissue. At one aspect, there is a 3.6 x 1.7 x 0.6 cm nodule. Additional smaller nodules are identified. Proof Press Operator tissue submitted for permanent sections only. Grossed by [facility]. F. Received fresh labeled right anterior abdominal wall is a 3.8 x 2 x 0.5 cm portion of red-pink, peritonealized fibromembranous tissue. A 0.2 cm nodule is present. Proof Press Operator tissue submitted for permanent sections only. Grossed by [facility]. G. Received fresh labeled right pelvic gutter is a 2.2 x 1 x 0.2 cm aggregate of red-pink fibromembranous tissue. All submitted for permanent sections only. Grossed by [facility]. H. Received fresh labeled left mid [...] nodule. Hilar lymph nodes are not identified. Proof Press Operator tissue submitted for permanent sections only. Grossed by [facility]JS. J. Received fresh labeled right fallopian tube [...] tube has multiple adhesions and serosal implants. Proof Press Operator tissue submitted for permanent sections only. Grossed [...] 3 x 1.6 cm of soft tissue. Proof Press Operator tissue submitted for permanent sections only. Grossed by RAK. Gallegso Received fresh labeled portion of sigmoid colon is a 13.5 cm in length portion of colon. There are serosal tumor imp lants and adhesions. The mucosa is unremarkable. Proof Press Operator tissue submitted for permanent sections only. Grossed [...] including a pelvic exam. If scheduled at [facility] then appointment desk will contact [...] important to have your annual flu vaccine PATIONAL THERAPY TEACHER documented in this encounter Plan of Treatment Upcoming Encounters Date Type Specialty Care Team Description 04/11/2022 Clinical Communication Admitting/Central Scheduling 04/13/2022 Office Visit Oncology Walter Barnhart M.D., Ph.D. [address] [place] [phone] Scheduled Referrals Name Type Priority Associated Order [...] esults for VIEW (Fast; most ED AM OCCUPATIONAL THERAPY TEACHER this procedur e patients; some are in the inpatients) results section. BASIC METABOLIC Routine 05/12/2021 12:35 Results for PANEL, S/P AM OCCUPATIONAL THERAPY TEACHER this procedure are in the results section. CBC WITHOUT Routine 05/11/2021 12:15 Results for DIFFERENTIAL, B AM OCCUPATIONAL THERAPY TEACHER this procedu re are in the results section. BASIC METABOLIC Routine 05/11/2021 12:15 Results for PANEL, S/P AM OCCUPATIONAL THERAPY TEACHER this procedure are in the results section. DX CHEST AP OR PA RAD - Semiurgent 05/10/2021 10:41 Re sults for AND LATERAL 2 VIEWS (Fast; most ED PM OCCUPATIONAL THERAPY TEACHER this p rocedure patients; some are in the inpatients) results section. POTASSIUM, S/P Timed 05/10/2021 4:42 Results fo r AM OCCUPATIONAL THERAPY TEACHER this procedure are in the results section. CBC WITHOUT Routine 05/10/2021 1:19 Results for DIFFERENTIAL, B AM OCCUPATIONAL THERAPY TEACHER this procedu re are in the results section. COMPREHENSIVE Routine 05/10/2021 1:19 Results for METABOLIC PANEL, S/P AM OCCUPATIONAL THERAPY TEACHER this pr ocedure are in the results section. DX ABDOMEN 1 VIEW RAD - Routine 05/09/2021 5:14 Result s for (most inpatients PM OCCUPATIONAL THERAPY TEACHER this proced ure and all are in the outpatients) results section. ADULT OXYGEN THERAPY Routine 05/09/2021 5:10 PM OCCUPATIONAL THERAPY TEACHER PATIENT STATUS STAT 05/09/2021 3:39 Results fo r PM OCCUPATIONAL THERAPY TEACHER this procedure are in the results section. SODIUM, B STAT 05/09/2021 3:39 Results for PM OCCUPATIONAL THERAPY TEACHER this procedure are in the results section. ABG W/COOX STAT 05/09/2021 3:39 Results for PM OCCUPATIONAL THERAPY TEACHER this procedure are in the results section. POTASSIUM, B STAT 05/09/2021 3:39 Results for PM OCCUPATIONAL THERAPY TEACHER this procedure are in the results section. GLUCOSE, WHOLE BLOOD STAT 05/09/2021 3:39 Resu lts for PM OCCUPATIONAL THERAPY TEACHER this procedure are in the results section. CALCIUM, IONIZED, STAT 05/09/2021 3:39 Results for S/B PM OCCUPATIONAL THERAPY TEACHER this procedure are in the results section. PATIENT STATUS STAT 05/09/2021 1:01 Results fo r PM OCCUPATIONAL THERAPY TEACHER this procedure are in the results section. SODIUM, B STAT 05/09/2021 1:01 Results for PM OCCUPATIONAL THERAPY TEACHER this procedure are in the results section. ABG W/COOX STAT 05/09/2021 1:01 Results for PM OCCUPATIONAL THERAPY TEACHER this procedure are in the results section. POTASSIUM, B STAT 05/09/2021 1:01 Results for PM OCCUPATIONAL THERAPY TEACHER this procedure are in the results section. GLUCOSE, WHOLE BLOOD STAT 05/09/2021 1:01 Resu lts for PM OCCUPATIONAL THERAPY TEACHER this procedure are in the results section. CALCIUM, IONIZED, STAT 05/09/2021 1:01 Results for S/B PM OCCUPATIONAL THERAPY TEACHER this procedure are in the results section. SURGICAL PATHOLOGY, Routine 05/09/2021 10:04 Malignant Resu lts for [facility] AM OCCUPATIONAL THERAPY TEACHER Neoplasm Of Ovary this proce dure Laterality are in the Unknown (HCC) results section. COLECTOMY LEFT WITH 05/09/2021 8:11 Malignant ANASTOMOSIS AM OCCUPATIONAL THERAPY TEACHER Neoplasm Of Ovary Laterality Unknown (HCC) EXPLORATION 05/09/2021 8:11 Malignant ABDOMINAL - LYSIS AM OCCUPATIONAL THERAPY TEACHER Neoplasm Of Ovary ADHESIONS Laterality Unknown (HCC) STRIPPING DIAPHRAGM 05/09/2021 8:11 Malignant AM OCCUPATIONAL THERAPY TEACHER Neoplasm Of Ovary Laterality Unknown (HCC) OTHER 05/09/2021 8:11 Malignant AM OCCUPATIONAL THERAPY TEACHER Neoplasm Of Ovary Laterality Unknown (HCC) SPLENECTOMY 05/09/2021 8:11 Malignant AM OCCUPATIONAL THERAPY TEACHER Neoplasm Of Ovary Laterality Unknown (HCC) CYSTOSCOPY INSERTION 05/09/2021 8:11 Malignant STENT URETER AM OCCUPATIONAL THERAPY TEACHER Neoplasm Of Ovary Laterality Unknown (HCC) ULTRASOUND LIVER 05/09/2021 8:11 Malignant AM OCCUPATIONAL THERAPY TEACHER Neoplasm Of Ovary Laterality Unknown (HCC) WEDGE RESECTION 05/09/2021 8:11 Malignant LIVER AM OCCUPATIONAL THERAPY TEACHER Neoplasm Of Ovary Laterality Unknown (HCC) OMENTECTOMY 05/09/2021 8:11 Malignant AM OCCUPATIONAL THERAPY TEACHER Neoplasm Of Ovary Laterality Unknown (HCC) HYSTERECTOMY 05/09/2021 8:11 Malignant ABDOMINAL WITH AM OCCUPATIONAL THERAPY TEACHER Neoplasm Of Ovary SALPINGO - Laterality OOPHORECTOMY Unknown (HCC) DEBULKING TUMOR 05/09/2021 8:11 Malignant OVARY AM OCCUPATIONAL THERAPY TEACHER Neoplasm Of Ovary Laterality Unknown (HCC) LAPAROTOMY - 05/09/2021 8:11 Malignant EXPLORATORY AM OCCUPATIONAL THERAPY TEACHER Neoplasm Of Ovary Laterality Unknown (HCC) TYPE AND SCREEN Routine 05/09/2021 7:29 Results f or AM OCCUPATIONAL THERAPY TEACHER this procedure are in the results section. documented in this encounter Results DX Chest Portable 1 View (05/12/2021 8:50 AM OCCUPATIONAL THERAPY TEACHER) Anatomical Region Laterality Modality Chest, Thoracic RST LOS, Thoracic ARZ LOS, Thoracic N/A Digital Radiography FLA LOS Specimen (Source) Anatomical Collection Method Collection Time Re ceived Time Location / / Volume Laterality 05/12/2021 8:51 AM OCCUPATIONAL THERAPY TEACHER Impressions 05/12/2021 8:52 AM OCCUPATIONAL THERAPY TEACHER No change since 05/10/2021, given differences of technique. Bilateral pleural effusions, greater on the right, layering posteriorly. Stable borderline cardiomegaly, also is accentu ated by technique. Atelectasis or consolidation in both bases. No pneumoth orax. Narrative 05/12/2021 8:52 AM OCCUPATIONAL THERAPY TEACHER EXAM: ??DX CHEST PORTABLE 1 VIEW Procedure [...] (ABNORMAL) Basic Metabolic Panel (05/12/2021 12:35 AM OCCUPATIONAL THERAPY TEACHER) P athologist Signature Potassium, S 4.7 3.6 - 5.2 05/12/2021 DTL mmol/L 1:20 AM OCCUPATIONAL THERAPY TEACHER Sodium, S 140 135 - 145 05/12/2021 DTL mmol/L 1:20 AM OCCUPATIONAL THERAPY TEACHER Chloride, S 105 98 - 107 05/12/2021 DTL mmol/L 1:20 AM OCCUPATIONAL THERAPY TEACHER Bicarbonate, S 29 22 - 29 05/12/2021 DTL mmol/L 1:20 AM OCCUPATIONAL THERAPY TEACHER Anion Gap 6 (L) 7 - 15 05/12/2021 DTL 1:20 AM OCCUPATIONAL THERAPY TEACHER BUN (Blood Urea 12 6 - 21 05/12/2021 DTL Nitrogen), S mg/dL 1:20 AM OCCUPATIONAL THERAPY TEACHER Creatinine 0.81 0.59 - 05/12/2021 DTL 1.04 mg/dL 1:20 AM OCCUPATIONAL THERAPY TEACHER eGFR-Non 88 >=60 05/12/2021 DTL Black/ mL/min/BSA 1:20 AM OCCUPATIONAL THERAPY TEACHER [place] Comment: ----ADDITIONAL INFORMATION---- Estimated GFR calculated using the 2009 CKD_EPI creatinine equation. eGFR-Black/ >90 >=60 mL/min/BSA 2020 1:20 AM OCCUPATIONAL THERAPY TEACHER DTL Comment: ----ADDITIONAL INFORMATION---- Estimated GFR calculated using the 2009 CKD_EPI creatinine equation. Calcium, Total, S 8.4 (L) 8.6 - 10.0 mg/dL 05/12/2021 1:20 AM OCCUPATIONAL THERAPY TEACHER DTL Glucose, S 93 70 - 140 mg/dL 05/12/2021 1:20 AM OCCUPATIONAL THERAPY TEACHER D TL Specimen Anatomical Collection Method Collection Time Receive d Time (Source) Location / / Volume Laterality Blood (Blood, 05/12/2021 12:35 05/12/2021 1:04 Venous) AM OCCUPATIONAL THERAPY TEACHER AM OCCUPATIONAL THERAPY TEACHER Ruben Rod M.D. LAB BLOOD ADD-ON Performing Organization Address City/[facility] Code Phon e Number [facility] - [address] [place], [place] [address] [facility] [place] [address] Laboratories-[facility] [address] [facility] (ABNORMAL) Basic Metabolic Panel (05/11/2021 12:15 AM OCCUPATIONAL THERAPY TEACHER) P athologist Signature Potassium, S 4.8 3.6 - 5.2 05/11/2021 DTL mmol/L 1:01 AM OCCUPATIONAL THERAPY TEACHER Sodium, S 140 135 - 145 05/11/2021 DTL mmol/L 1:01 AM OCCUPATIONAL THERAPY TEACHER Chloride, S 103 98 - 107 05/11/2021 DTL mmol/L 1:01 AM OCCUPATIONAL THERAPY TEACHER Bicarbonate, S 30 (H) 22 - 29 05/11/2021 DTL mmol/L 1:01 AM OCCUPATIONAL THERAPY TEACHER Anion Gap 7 7 - 15 05/11/2021 DTL 1:01 AM OCCUPATIONAL THERAPY TEACHER BUN (Blood Urea 13 6 - 21 05/11/2021 DTL Nitrogen), S mg/dL 1:01 AM OCCUPATIONAL THERAPY TEACHER Creatinine 0.87 0.59 - 05/11/2021 DTL 1.04 mg/dL 1:01 AM OCCUPATIONAL THERAPY TEACHER eGFR-Non 81 >=60 05/11/2021 DTL Black/ mL/min/BSA 1:01 AM OCCUPATIONAL THERAPY TEACHER [place] Comment: ----ADDITIONAL INFORMATION---- Estimated GFR calculated using the 2009 CKD_EPI creatinine equation. eGFR-Black/ >90 >=60 mL/min/BSA 2020 1:01 AM OCCUPATIONAL THERAPY TEACHER DTL Comment: ----ADDITIONAL INFORMATION---- Estimated GFR calculated using the 2009 CKD_EPI creatinine equation. Calcium, Total, S 8.7 8.6 - 10.0 mg/dL 05/11/2021 1:01 AM OCCUPATIONAL THERAPY TEACHER DTL Glucose, S 99 70 - 140 mg/dL 05/11/2021 1:01 AM OCCUPATIONAL THERAPY TEACHER D TL Specimen Anatomical Collection Method Collection Time Receive d Time (Source) Location / / Volume Laterality Blood (Blood, 05/11/2021 12:15 05/11/2021 Venous) AM OCCUPATIONAL THERAPY TEACHER 12:46 AM OCCUPATIONAL THERAPY TEACHER Ruben Rod M.D. LAB BLOOD ADD-ON Performing Organization Address City/[facility] Phon e Number [facility] - [address] [place], [place] [address] [place] [address] [place] [address] (ABNORMAL) CBC without Differential (05/11/2021 12:15 AM OCCUPATIONAL THERAPY TEACHER) [facility] gist Method Time Signature Hemoglobin 8.4 (L) 11.6 - 05/11/2021 DTL 15.0 g/dL 1:30 AM OCCUPATIONAL THERAPY TEACHER Hematocrit 25.9 (L) 35.5 - 05/11/2021 DTL 44.9 % 1:30 AM OCCUPATIONAL THERAPY TEACHER Erythrocytes 2.75 (L) 3.92 - 05/11/2021 DTL 5.13 1:30 AM OCCUPATIONAL THERAPY TEACHER x10(12)/L MCV 94.2 78.2 - 05/11/2021 DTL 97.9 fL 1:30 AM OCCUPATIONAL THERAPY TEACHER RBC Distrib Width 18.0 (H) 12.2 - 05/11/2021 DTL 16.1 % 1:30 AM OCCUPATIONAL THERAPY TEACHER Platelet Count 281 157 - 371 05/11/2021 DTL x10(9)/L 1:30 AM OCCUPATIONAL THERAPY TEACHER Leukocytes 11.9 (H) 3.4 - 9.6 05/11/2021 DTL x10(9)/L 1:30 AM OCCUPATIONAL THERAPY TEACHER Specimen Anatomical Collection Method Collection Time Receive d Time (Source) Location / / Volume Laterality Blood (Blood, 05/11/2021 12:15 05/11/2021 Venous) AM OCCUPATIONAL THERAPY TEACHER 12:29 AM OCCUPATIONAL THERAPY TEACHER Ruben Rod M.D. LAB BLOOD ADD-ON Performing Organization Address City/State/ZIP Code Phon e Number [facility] - [address] [place] [address] [place] [address] [place] [address] DX Chest AP or PA and Lateral 2 Views (05/10/2021 10:41 PM OCCUPATIONAL THERAPY TEACHER) Anatomical Region Laterality Modality Chest, Thoracic RST LOS, Thoracic ARZ LOS, Thoracic N/A Digital Radiography FLA LOS Specimen (Source) Anatomical Collection Method Collection Time Re ceived Time Location / / Volume Laterality 05/10/2021 10:42 PM OCCUPATIONAL THERAPY TEACHER Impressions 05/11/2021 8:59 AM OCCUPATIONAL THERAPY TEACHER Small bilateral pleural effusions. Bilateral lower lung airspace opacities. Low lung volumes. Abdominal d rain. Narrative 05/11/2021 8:59 AM OCCUPATIONAL THERAPY TEACHER EXAM: ??DX CHEST AP OR PA AND [...] IMAGING PROCE DURES Potassium (05/10/2021 4:42 AM OCCUPATIONAL THERAPY TEACHER) athologist Signature Potassium, S 4.8 3.6 - 5.2 05/10/2021 DTL mmol/L 5:48 AM OCCUPATIONAL THERAPY TEACHER Specimen Anatomical Collection Method Collection Time Receive d Time (Source) Location / / Volume Laterality Blood (Blood, 05/10/2021 4:42 AM 05/10/20 5:39 Venous) OCCUPATIONAL THERAPY TEACHER AM OCCUPATIONAL THERAPY TEACHER Sussy Albert M.D. LAB BLOOD ADD-ON Performing Organization Address City/State/ZIP Code Phon e Number [facility] - [address] [place], [place] [address] [facility] [place] [address] [facility] [address] [facility] (ABNORMAL) Comprehensive Metabolic Panel (05/10/2021 1:19 AM OCCUPATIONAL THERAPY TEACHER) athologist Signature Potassium, S 5.4 (H) 3.6 - 5.2 05/10/2021 DTL mmol/L 1:58 AM OCCUPATIONAL THERAPY TEACHER Sodium, S 137 135 - 145 05/10/2021 DTL mmol/L 1:58 AM OCCUPATIONAL THERAPY TEACHER Chloride, S 103 98 - 107 05/10/2021 DTL mmol/L 1:58 AM OCCUPATIONAL THERAPY TEACHER Bicarbonate, S 22 22 - 29 05/10/2021 DTL mmol/L 1:58 AM OCCUPATIONAL THERAPY TEACHER Anion Gap 12 7 - 15 05/10/2021 DTL 1:58 AM OCCUPATIONAL THERAPY TEACHER BUN (Blood Urea 14 6 - 21 05/10/2021 DTL Nitrogen), S mg/dL 1:58 AM OCCUPATIONAL THERAPY TEACHER Creatinine 0.76 0.59 - 05/10/2021 DTL 1.04 mg/dL 1:58 AM OCCUPATIONAL THERAPY TEACHER eGFR-Non >90 >=60 05/10/2021 DTL Black/ mL/min/BSA 1:58 AM OCCUPATIONAL THERAPY TEACHER [place] Comment: ----ADDITIONAL INFORMATION---- Estimated GFR calculated using the 2009 CKD_EPI creatinine equation. eGFR-Black/ >90 >=60 mL/min/BSA 2020 1:58 AM OCCUPATIONAL THERAPY TEACHER DTL Comment: ----ADDITIONAL INFORMATION---- Estimated GFR calculated using the 2009 CKD_EPI creatinine equation. Calcium, Total, S 8.5 (L) 8.6 - 10.0 mg/dL 05/10/2021 1:58 AM OCCUPATIONAL THERAPY TEACHER DTL Glucose, S 126 70 - 140 mg/dL 05/10/2021 1:58 AM OCCUPATIONAL THERAPY TEACHER D TL Protein, Total, S 5.7 (L) 6.3 - 7.9 g/dL 05/10/2021 1:58 A M OCCUPATIONAL THERAPY TEACHER DTL Albumin, S 4.2 3.5 - 5.0 g/dL 05/10/2021 1:58 AM OCCUPATIONAL THERAPY TEACHER D TL Aspartate Aminotransferase 598 (H) 8 - 43 U/L 05/10/2021 1 :58 AM OCCUPATIONAL THERAPY TEACHER DTL (AST), S Alkaline Phosphatase, S 49 35 - 104 U/L 05/10/2021 1: 58 AM OCCUPATIONAL THERAPY TEACHER DTL Alanine Aminotransferase 297 (H) 7 - 45 U/L 05/10/2021 1:5 8 AM OCCUPATIONAL THERAPY TEACHER DTL (ALT), S Bilirubin, Total, S 1.0 <=1.2 mg/dL 05/10/2021 1:58 AM OCCUPATIONAL THERAPY TEACHER DTL Specimen Anatomical Collection Method Collection Time Receive d Time (Source) Location / / Volume Laterality Blood (Blood, 05/10/2021 1:19 AM 05/10/20 1:27 Venous) OCCUPATIONAL THERAPY TEACHER AM OCCUPATIONAL THERAPY TEACHER Che Martinez M.D. LAB BLOOD ADD-ON Performing Organization Address City/State/ZIP Code Phon e Number [facility] - [address] [place], [place] [address] [facility] [place] [address] [facility] [address] (ABNORMAL) CBC without Differential (05/10/2021 1:19 AM OCCUPATIONAL THERAPY TEACHER) [facility] gist Method Time Signature Hemoglobin 9.6 (L) 11.6 - 05/10/2021 DHPM 15.0 g/dL 1:58 AM OCCUPATIONAL THERAPY TEACHER Hematocrit 29.5 (L) 35.5 - 05/10/2021 DHPM 44.9 % 1:58 AM OCCUPATIONAL THERAPY TEACHER Erythrocytes 3.15 (L) 3.92 - 05/10/2021 DHPM 5.13 1:58 AM OCCUPATIONAL THERAPY TEACHER x10(12)/L MCV 93.7 78.2 - 05/10/2021 DHPM 97.9 fL 1:58 AM OCCUPATIONAL THERAPY TEACHER RBC Distrib Width 17.5 (H) 12.2 - 05/10/2021 DHPM 16.1 % 1:58 AM OCCUPATIONAL THERAPY TEACHER Platelet Count 270 157 - 371 05/10/2021 DHPM x10(9)/L 1:58 AM OCCUPATIONAL THERAPY TEACHER Leukocytes 13.5 (H) 3.4 - 9.6 05/10/2021 DHPM x10(9)/L 1:58 AM OCCUPATIONAL THERAPY TEACHER Specimen Anatomical Collection Method Collection Time Receive d Time (Source) Location / / Volume Laterality Blood (Blood, 05/10/2021 1:19 AM 05/10/20 21 1:27 Venous) OCCUPATIONAL THERAPY TEACHER AM OCCUPATIONAL THERAPY TEACHER Che Martinez M.D. LAB BLOOD ADD-ON Performing Organization Address City/State/ZIP Code Phon e Number [facility] - [address] [place] [address] 559 05 [place] [address] [facility] 200 [facility] DX Abdomen 1 View (05/09/2021 5:14 PM OCCUPATIONAL THERAPY TEACHER) Anatomical Region Laterality Modality Abdomen, Abdominal RST LOS, Abdominal ARZ LOS, N/A Computed Radiography Abdominal FLA LOS Specimen (Source) Anatomical Collection Method Collection Time Re ceived Time Location / / Volume Laterality 05/09/2021 5:16 PM OCCUPATIONAL THERAPY TEACHER Impressions 05/09/2021 5:34 PM OCCUPATIONAL THERAPY TEACHER Examination negative for postoperative purposes. Surgical changes in the pelvis. Expected postoperative pn eumoperitoneum. Grossly unremarkable imaged lung bases. Elevated right hemidi aphragm. Narrative 05/09/2021 5:34 PM OCCUPATIONAL THERAPY TEACHER EXAM: ??DX ABDOMEN 1 VIEW Procedure Note Aden Blanco D.O. - 05/09/2021 EXAM: DX ABDOMEN 1 VIEW IMPRESSION: Examination negative for postoperative p urposes. Surgical changes in the pelvis. Expected postoperative pn eumoperitoneum. Grossly unremarkable imaged lung bases. Elevated right hemidi aphragm. Denisha Oviedo M.D. IMG DIAGNOSTIC IMAGING PROCE SWATHI Patient Status (05/09/2021 3:39 PM OCCUPATIONAL THERAPY TEACHER) athologist Signature Temperature 36.2 37.0 deg C 05/09/2021 METH 3:40 PM OCCUPATIONAL THERAPY TEACHER FIO2 0.34 0.21=AIR 05/09/2021 METH 3:40 PM OCCUPATIONAL THERAPY TEACHER Specimen Anatomical Collection Method Collection Time Receive d Time (Source) Location / / Volume Laterality Blood 05/09/2021 3:39 PM 3:39 OCCUPATIONAL THERAPY TEACHER PM OCCUPATIONAL THERAPY TEACHER Abbey Kelly APRN, CRNA LAB BLOOD NON ADD-ON Performing Organization Address City/[facility] Phon e Number [facility] - [id number] [place] [address] [address] [facility] (ABNORMAL) Glucose, Whole Blood (05/09/2021 3:39 PM OCCUPATIONAL THERAPY TEACHER) athologist Signature Glucose 174 (H) 70 - 140 05/09/2021 METH mg/dL 3:43 PM OCCUPATIONAL THERAPY TEACHER Specimen Anatomical Collection Method Collection Time Receive d Time (Source) Location / / Volume Laterality Blood (Blood, 05/09/2021 3:39 PM 05/09/20 3:39 Arterial Line) OCCUPATIONAL THERAPY TEACHER PM OCCUPATIONAL THERAPY TEACHER Harrison Aguilar M.D. LAB BLOOD TROPONIN Performing Organization Address City/[facility] Code Phon e Number [facility] - [address] [address] [place] [address] [address] [facility] Potassium, Blood (05/09/2021 3:39 PM OCCUPATIONAL THERAPY TEACHER) athologist Signature Potassium, B 3.8 3.6 - 5.2 05/09/2021 METH mmol/L 3:43 PM OCCUPATIONAL THERAPY TEACHER Specimen Anatomical Collection Method Collection Time Receive d Time (Source) Location / / Volume Laterality Blood (Blood, 05/09/2021 3:39 PM 05/09/20 3:39 Arterial Line) OCCUPATIONAL THERAPY TEACHER PM OCCUPATIONAL THERAPY TEACHER Harrison Aguilar M.D. LAB BLOOD NON ADD-ON Performing Organization Address City/[facility] Phon e Number [facility] - [address] Sodium, B (05/09/2021 3:39 PM OCCUPATIONAL THERAPY TEACHER) athologist Signature Sodium, B 140 135 - 145 05/09/2021 3:43 METH mmol/L PM OCCUPATIONAL THERAPY TEACHER Specimen Anatomical Collection Method Collection Time Receive d Time (Source) Location / / Volume Laterality Blood (Blood, 05/09/2021 3:39 PM 05/09/20 3:39 Arterial Line) OCCUPATIONAL THERAPY TEACHER PM OCCUPATIONAL THERAPY TEACHER Harrison Aguilar M.D. LAB BLOOD NON ADD-ON Performing Organization Address City/[facility] Phon e Number [facility] - [phone] [place] [address] (ABNORMAL) Calcium, Ionized (05/09/2021 3:39 PM OCCUPATIONAL THERAPY TEACHER) athologist Signature Calcium, 4.51 (L) 4.65 - 05/09/2021 METH Ionized, B 5.30 mg/dL 3:43 PM OCCUPATIONAL THERAPY TEACHER Specimen Anatomical Collection Method Collection Time Receive d Time (Source) Location / / Volume Laterality Blood (Blood, 05/09/2021 3:39 PM 05/09/20 3:39 Arterial Line) OCCUPATIONAL THERAPY TEACHER PM OCCUPATIONAL THERAPY TEACHER Harrison Aguilar M.D. LAB BLOOD NON ADD-ON Performing Organization Address City/State/ZIP Code Phon e Number [facility] - [phone] [place] [address] (ABNORMAL) Blood Gas with Coox, Arterial (05/09/2021 3:39 PM OCCUPATIONAL THERAPY TEACHER) athologist Signature pO2 222 (H) 83 - 108 05/09/2021 METH mm Hg 3:43 PM OCCUPATIONAL THERAPY TEACHER pCO2 40 32 - 45 mm 05/09/2021 METH Hg 3:43 PM OCCUPATIONAL THERAPY TEACHER pH 7.40 7.35 - 05/09/2021 METH 7.45 pH 3:43 PM OCCUPATIONAL THERAPY TEACHER Base Excess -1 -2 - 3 05/09/2021 METH mmol/L 3:43 PM OCCUPATIONAL THERAPY TEACHER HCO3 25 22 - 26 05/09/2021 METH mmol/L 3:43 PM OCCUPATIONAL THERAPY TEACHER Hemoglobin, B 8.1 (L) 11.6 - 05/09/2021 METH 15.0 g/dL 3:43 PM OCCUPATIONAL THERAPY TEACHER O2Hb 98.3 (H) 94.0 - 05/09/2021 METH 98.0 % 3:43 PM OCCUPATIONAL THERAPY TEACHER COHb 1.4 <3.0 % 05/09/2021 METH 3:43 PM OCCUPATIONAL THERAPY TEACHER MetHb <1.0 <1.5 % 05/09/2021 METH 3:43 PM OCCUPATIONAL THERAPY TEACHER CtO2 11.7 (L) 18.0 - 05/09/2021 METH 21.0 vol % 3:43 PM OCCUPATIONAL THERAPY TEACHER Specimen Anatomical Collection Method Collection Time Receive d Time (Source) Location / / Volume Laterality Blood (Blood, 05/09/2021 3:39 PM 05/09/20 3:39 Arterial Line) OCCUPATIONAL THERAPY TEACHER PM OCCUPATIONAL THERAPY TEACHER Harrison Aguilar M.D. LAB BLOOD NON ADD-ON Performing Organization Address City/[facility] Code Phon e Number [facility] [address] Patient Status (05/09/2021 1:01 PM OCCUPATIONAL THERAPY TEACHER) P athologist Signature Temperature 35.7 37.0 deg C 05/09/2021 METH 1:01 PM OCCUPATIONAL THERAPY TEACHER FIO2 0.40 0.21=AIR 05/09/2021 METH 1:01 PM OCCUPATIONAL THERAPY TEACHER Specimen Anatomical Collection Method Collection Time Receive d Time (Source) Location / / Volume Laterality Blood 05/09/2021 1:01 PM 1:01 OCCUPATIONAL THERAPY TEACHER PM OCCUPATIONAL THERAPY TEACHER Abbey Kelly APRN, CRNA LAB BLOOD NON ADD-ON Performing Organization Address City/[facility] Code Phon e Number [facility] - [address] [place] [address] [address] [facility] [place] [address] (ABNORMAL) Glucose, Whole Blood (05/09/2021 1:01 PM OCCUPATIONAL THERAPY TEACHER) athologist Signature Glucose 185 (H) 70 - 140 05/09/2021 METH mg/dL 1:08 PM OCCUPATIONAL THERAPY TEACHER Specimen Anatomical Collection Method Collection Time Receive d Time (Source) Location / / Volume Laterality Blood (Blood, 05/09/2021 1:01 PM 05/09/20 1:01 Arterial Line) OCCUPATIONAL THERAPY TEACHER PM OCCUPATIONAL THERAPY TEACHER Harrison Aguilar M.D. LAB BLOOD TROPONIN Performing Organization Address City/State/ZIP Code Phon e Number [facility] - [address] [place], [place] [address] [place] [address] [facility] [address] Potassium, Blood (05/09/2021 1:01 PM OCCUPATIONAL THERAPY TEACHER) athologist Signature Potassium, B 3.6 3.6 - 5.2 05/09/2021 METH mmol/L 1:08 PM OCCUPATIONAL THERAPY TEACHER Specimen Anatomical Collection Method Collection Time Receive d Time (Source) Location / / Volume Laterality Blood (Blood, 05/09/2021 1:01 PM 05/09/20 1:01 Arterial Line) OCCUPATIONAL THERAPY TEACHER PM OCCUPATIONAL THERAPY TEACHER Harrison Aguilar M.D. LAB BLOOD NON ADD-ON Performing Organization Address City/State/ZIP Code Phon e Number [facility] - [address] [place], [place] [address] [place] [address] [facility] [address] Sodium, B (05/09/2021 1:01 PM OCCUPATIONAL THERAPY TEACHER) athologist Signature Sodium, B 140 135 - 145 05/09/2021 1:08 METH mmol/L PM OCCUPATIONAL THERAPY TEACHER Specimen Anatomical Collection Method Collection Time Receive d Time (Source) Location / / Volume Laterality Blood (Blood, 05/09/2021 1:01 PM 05/09/20 1:01 Arterial Line) OCCUPATIONAL THERAPY TEACHER PM OCCUPATIONAL THERAPY TEACHER Harrison Aguilar M.D. LAB BLOOD NON ADD-ON Performing Organization Address City/State/ZIP Code Phon e Number [facility] - [address] [place], [place] [address] [place] [address] [facility] [address] (ABNORMAL) Calcium, Ionized (05/09/2021 1:01 PM OCCUPATIONAL THERAPY TEACHER) athologist Signature Calcium, 4.52 (L) 4.65 - 05/09/2021 METH Ionized, B 5.30 mg/dL 1:08 PM OCCUPATIONAL THERAPY TEACHER Specimen Anatomical Collection Method Collection Time Receive d Time (Source) Location / / Volume Laterality Blood (Blood, 05/09/2021 1:01 PM 05/09/20 1:01 Arterial Line) OCCUPATIONAL THERAPY TEACHER PM OCCUPATIONAL THERAPY TEACHER Harrison Aguilar M.D. LAB BLOOD NON ADD-ON Performing Organization Address City/State/ZIP Code Phon e Number [facility] - [address] [place], [place] [address] [facility] [place] [place] [address] [facility] [address] [facility] (ABNORMAL) Blood Gas with Coox, Arterial (05/09/2021 1:01 PM OCCUPATIONAL THERAPY TEACHER) athologist Signature pO2 213 (H) 83 - 108 05/09/2021 METH mm Hg 1:08 PM OCCUPATIONAL THERAPY TEACHER pCO2 38 32 - 45 mm 05/09/2021 METH Hg 1:08 PM OCCUPATIONAL THERAPY TEACHER pH 7.41 7.35 - 05/09/2021 METH 7.45 pH 1:08 PM OCCUPATIONAL THERAPY TEACHER Base Excess -1 -2 - 3 05/09/2021 METH mmol/L 1:08 PM OCCUPATIONAL THERAPY TEACHER HCO3 24 22 - 26 05/09/2021 METH mmol/L 1:08 PM OCCUPATIONAL THERAPY TEACHER Hemoglobin, B 9.2 (L) 11.6 - 05/09/2021 METH 15.0 g/dL 1:08 PM OCCUPATIONAL THERAPY TEACHER O2Hb 99.7 (H) 94.0 - 05/09/2021 METH 98.0 % 1:08 PM OCCUPATIONAL THERAPY TEACHER COHb 1.1 <3.0 % 05/09/2021 METH 1:08 PM OCCUPATIONAL THERAPY TEACHER MetHb <1.0 <1.5 % 05/09/2021 METH 1:08 PM OCCUPATIONAL THERAPY TEACHER CtO2 13.4 (L) 18.0 - 05/09/2021 METH 21.0 vol % 1:08 PM OCCUPATIONAL THERAPY TEACHER Specimen Anatomical Collection Method Collection Time Receive d Time (Source) Location / / Volume Laterality Blood (Blood, 05/09/2021 1:01 PM 05/09/20 21 1:01 Arterial Line) OCCUPATIONAL THERAPY TEACHER PM OCCUPATIONAL THERAPY TEACHER Harrison Aguilar M.D. LAB BLOOD NON ADD-ON Performing Organization Address City/State/ZIP Code Phon e Number [facility] - [address] [place], [place] [address] [facility] [place] [address] [facility] [address] Surgical Pathology, Frozen Lab (05/09/2021 10:04 AM OCCUPATIONAL THERAPY TEACHER) Component Value Ref Test Analysis Performed Pathologis t Range Method Time At Signature 05/11/2021 METH 2:48 PM OCCUPATIONAL THERAPY TEACHER Participated in Tim Rodrigues M.D. 05/11/2021 [place] the -Pathology 2:48 PM Interpretation Resident OCCUPATIONAL THERAPY TEACHER Report Sophia Ndiaye M.D. [phone] 05/11/2021 MET H electronically 2:48 PM signed by OCCUPATIONAL THERAPY TEACHER I verify that I have examined all relevant slides/materials for the specimen(s) and rendered or confirmed the diagnosis. Gross Description A. ??Received fresh labeled umbilical nodule is a 2.2 x 05/11/2021 METH 1.7 2:48 PM x 0.6 cm fragment of red-orosco soft tissue. ??There is a 0.7 x OCCUPATIONAL THERAPY TEACHER 0.6 cm nodule identified upon sectioning. ??All submitted for permanent sections only. ??Grossed by PDH. B. ??Received fresh labeled falciform ligament is a 3.9 x 3.2 x 0.6 cm portion of pink-red fibrofatty tissue. Proof Press Operator tissue submitted for permanent sections only. Grossed by PDH. C. ??Received fresh labeled omentum is a 42 x 12 x 1 cm portion of omentum. ??There is a 0.3 x 0.2 x 0.2 cm calcified nodule. ??Lymph nodes are identified. ??Proof Press Operator tissu e submitted for permanent sections only. ??Grossed by D. ??Received fresh labeled liver wedge segment 4B/3 nodule is a 18 gram, 4.3 x 3.8 x 3.7 cm liver wedge specimen. ??A single 2.6 x 2.4 x 1.4 cm orosco-white mass is present 0.1 cm from the inked surgical margin. ??Margin is submitted perpendicularly. ??Proof Press Operator tissue submitted for permanent sections only. ??Grossed by EDNA. Isauro. ??Received fresh labeled right diaphragm is a 7.1 x 3.2 x 1.6 cm portion of red-orosco fibrous tissue. ??At one aspect, there is a 3.6 x 1.7 x 0.6 cm nodule. ??Additional smaller nodules are identified. ??Proof Press Operator tissue submitted for permanent sections only. ??Grossed by F. ??Received fresh labeled right anterior abdominal wall is a 3.8 x 2 x 0.5 cm portion of red-pink, peritonealized fibromembranous tissue. ??A 0.2 cm nodule is present. Proof Press Operator tissue submitted for permanent sections only. Grossed [...] nodule. Hilar lymph nodes are not identified. ??Proof Press Operator tissue submitted for permanent sections only. ??Grossed [...] tube has multiple adhesions and serosal implants. ??Proof Press Operator tissue submitted for permanent sections only. ??Grossed [...] 3 x 1.6 cm of soft tissue. Proof Press Operator tissue submitted for permanent sections only. Grossed by RAK. Gallegos ??Received fresh labeled portion of sigmoid colon is a 13.5 cm in length portion of colon. ??There are serosal tumor implants and adhesions. ??The mucosa is unremarkable. Proof Press Operator tissue submitted for permanent sections only. Grossed by EDNA. Block Summary A Umbilical nodule 05/11/2021 METH A1 Umbilical nodule 1 2:48 PM A2 Umbilical nodule 2 OCCUPATIONAL THERAPY TEACHER B Falciform ligament B1 Nodular area 1 [...] will be performed on block J2 at [email or web address] 3:33 PM [facility], [place], [place]. OCCUPATIONAL THERAPY TEACHER Signed by James Pantoja M.D., Ph.D. 07/01/2021 3:33 PM Comment: REVISED RESULTS Interpretation FINAL DIAGNOSIS 07/01/2021 3:33 PM OCCUPATIONAL THERAPY TEACHER METH J. ??Fallopian tube and ovary, right, [...] Volume Laterality Tissue 05/09/2021 10:04 (Umbilicus) AM OCCUPATIONAL THERAPY TEACHER Tissue (Pelvis) 05/09/2021 10:06 AM OCCUPATIONAL THERAPY TEACHER Tissue (Omentum) 05/09/2021 10:57 AM OCCUPATIONAL THERAPY TEACHER Tissue (Liver) 05/09/2021 11:43 AM OCCUPATIONAL THERAPY TEACHER Tissue 05/09/2021 11:59 (Diaphragm, AM OCCUPATIONAL THERAPY TEACHER Right) Tissue (Abdomen) 05/09/2021 12:07 PM OCCUPATIONAL THERAPY TEACHER Tissue (Pelvis, 05/09/2021 12:11 Right) PM OCCUPATIONAL THERAPY TEACHER Tissue 05/09/2021 12:36 (Diaphragm, Left) PM OCCUPATIONAL THERAPY TEACHER Tissue (Spleen) 05/09/2021 12:57 PM OCCUPATIONAL THERAPY TEACHER Tissue (Ovary, 05/09/2021 1:22 PM Right) OCCUPATIONAL THERAPY TEACHER Tissue (Uterus) 05/09/2021 3:05 PM OCCUPATIONAL THERAPY TEACHER Tissue (Colon) 05/09/2021 3:10 PM OCCUPATIONAL THERAPY TEACHER Narrative This result has an attachment that is no t available. Denisha Oviedo M.D. LAB SURG PATH ORDERABLES Performing Organization Address [facility] Phon e Number [facility] - [address] [place] [address] Laboratories-[address] Type and Screen (with reflex Antibody ID) (05/09/2021 7:29 AM OCCUPATIONAL THERAPY TEACHER) [facility] gist Method Time Signature ABORh B Neg Not 05/09/2021 ETRM applicable 9:21 AM OCCUPATIONAL THERAPY TEACHER Antibody Negative Negative 05/09/2021 ETR[facility] Screen 9:32 AM OCCUPATIONAL THERAPY TEACHER Type & Screen 05/12/2021 05/09/2021 ETRM Expiration 23:59 9:21 AM OCCUPATIONAL THERAPY TEACHER Testing [place] DEFAULT 05/09/2021 ETRM Location 8:27 AM OCCUPATIONAL THERAPY TEACHER Specimen Anatomical Collection Method Collection Time Receive d Time (Source) Location / / Volume Laterality Blood (Blood, 05/09/2021 7:29 AM 05/09/20 8:27 Venous) OCCUPATIONAL THERAPY TEACHER AM OCCUPATIONAL THERAPY TEACHER Denisha Oviedo M.D. LAB BLOOD BANK TEST ORDERABL ES Performing Organization Address [facility] Phon e Number [facility] - [address] [place] [address] documented in this encounter Visit Diagnoses [...] 5:51 PM 1,000 mg 400 mL/hr mg OCCUPATIONAL THERAPY TEACHER 1,000 mg, intravenous, at 400 mL/hr, Administer over 15 Minutes, Once as needed, other, If patient has not received in previous 6 hours, Starting on 05/09/21 at 1710, For 1 dose, PACU (only), Oral unless RASS less than -1 or nausea/vomiting. Do not use if given in last 6 hours, Restriction Criteria (Pharmacy will review and approve if criteria met): Unable to take or tolerate medications administered via the enteral route or orally (not just NPO) acetaminophen tablet 1,000 mg (TYLENOL) Given 05/09/2021 8:00 AM OCCUPATIONAL THERAPY TEACHER 1,000 mg 1,000 mg, oral, Once, On Sun05/09/21 at 0745, For 1 dose, Pre-Op, In Pre Op holding (PWA) acetaminophen tablet 1,000 mg (TYLENOL) Given 05/14/2021 6:19 AM OCCUPATIONAL THERAPY TEACHER 1,000 mg 1,000 mg, oral, Every 6 hours, First dose on Sun05/10/21 at 0000, not to exceed 4 grams in 24 hours. Given 05/13/2021 11:53 PM OCCUPATIONAL THERAPY TEACHER 1,000 mg Given 05/13/2021 5:50 PM OCCUPATIONAL THERAPY TEACHER 1,000 mg alvimopan capsule 12 mg (ENTEREG) Given 05/11/2021 8:55 AM OCCUPATIONAL THERAPY TEACHER 12 mg 12 mg, oral, 2 times daily, First dose on Sun05/09/21 at 2100, For 7 days, Until bowel movement or hospital discharge. Maximum 7 days., Has the patient received fewer than 15 doses? Yes, I certify that I have reviewed and ensured compliance to the REMS program requirements outlined in the reference links: Yes Given 05/10/2021 9:12 PM OCCUPATIONAL THERAPY TEACHER 12 mg Given 05/10/2021 8:25 AM OCCUPATIONAL THERAPY TEACHER 12 mg benzocaine-menthoL 15-3.6 mg per lozenge 1 Given 05/10 1:26 AM OCCUPATIONAL THERAPY TEACHER 1 lozenge lozenge (CEPACOL) 1 lozenge, oral, As needed, sore throat, Starting on Sun05/09/21 at 2025 calcium carbonate chewable tablet Given 05/11/2021 6:3 1 PM OCCUPATIONAL THERAPY TEACHER 400 mg of calcium 400 mg of calcium (TUMS) 400 mg of calcium, oral, 3 times daily PRN, indigestion, heartburn, Starting on Sun05/09/21 at 2026, Doses listed are in mg of elemental calcium. Take with food. 500 mg calcium carbonate contains 200 mg of elemental calcium. ceFAZolin in dextrose (iso-os) IVPB 2 New Bag 05/10/2021 3:20 PM OCCUPATIONAL THERAPY TEACHER 2 g 200 mL/hr g (ANCEF) 2 g, intravenous, at 200 mL/hr, Administer over 30 Minutes, Every 8 hours, First dose on Sun05/09/21 at 2300, For 24 hours, Drug Monitoring Program: Pharmacist to adjust medication dosing based on indication and drug clearance factors., Indications: Prophylaxis, surgical New Bag 05/10/2021 6:53 AM OCCUPATIONAL THERAPY TEACHER 2 g 200 mL/hr New Bag 05/09/2021 11:18 PM OCCUPATIONAL THERAPY TEACHER 2 g 200 mL/hr celecoxib capsule 400 mg (CeleBREX) Given 05/09/2021 7:59 AM OCCUPATIONAL THERAPY TEACHER 400 mg 400 mg, oral, Once, On Sun05/09/21 at 0745, For 1 dose, Pre-Op, Pre-procedure on unit. Not to be administered for true sulfa allergy, acute GI bleed, history of GI bleed within past 6 months, or NSAID contraindications. cyclobenzaprine tablet 5 mg (FLEXERIL) Given 05/10/2021 4:31 AM OCCUPATIONAL THERAPY TEACHER 5 mg 5 mg, oral, Once as needed, muscle spasms, Starting on Sun05/10/21 at 0312, For 1 dose cyclobenzaprine tablet 5 mg (FLEXERIL) Given 05/14/2021 2:11 AM OCCUPATIONAL THERAPY TEACHER 5 mg 5 mg, oral, 3 times daily PRN, muscle spasms, Starting on Misty 05/12/21 at 0744 Given 05/13/2021 8:26 PM OCCUPATIONAL THERAPY TEACHER 5 mg Given 05/13/2021 2:01 PM OCCUPATIONAL THERAPY TEACHER 5 mg diphenhydrAMINE capsule 25 mg (BENADRYL) Given 05/10/2021 4:31 AM OCCUPATIONAL THERAPY TEACHER 25 mg 25 mg, oral, Every 6 hours PRN, itching, sleep, Starting on Sun05/10/21 at 0251 enoxaparin injection 40 mg Given 05/13/2021 2:01 PM OCCUPATIONAL THERAPY TEACHER 40 mg Left Outer Thigh (LOVENOX) 40 mg, subcutaneous, Daily, First dose on Sun05/11/21 at 1400 Given 05/12/2021 2:58 PM OCCUPATIONAL THERAPY TEACHER 40 mg Right Outer Thigh Given 05/11/2021 2:06 PM OCCUPATIONAL THERAPY TEACHER 40 mg Right Upper Hip haloperidol lactate injection 1 mg (HALD OL) Given 05/10/2021 5:50 PM OCCUPATIONAL THERAPY TEACHER 1 mg 1 mg, intravenous, Every 6 [...] promethazine) heparin (porcine) Given 05/11/2021 5:24 AM OCCUPATIONAL THERAPY TEACHER 5,000 Units Right Outer Thigh injection 5,000 Units 5,000 Units, subcutaneous, Every 8 hours scheduled, First dose on Sun05/09/21 at 2200 Given 05/10/2021 9:12 PM OCCUPATIONAL THERAPY TEACHER 5,000 Units Left Outer Thigh Given 05/10/2021 2:36 PM OCCUPATIONAL THERAPY TEACHER 5,000 Units Left Outer Thigh HYDROmorphone (PF) [...] oral pain medication. Given 05/10/2021 7:52 PM OCCUPATIONAL THERAPY TEACHER 0.4 mg Given 05/10/2021 3:31 PM OCCUPATIONAL THERAPY TEACHER 0.4 mg HYDROmorphone tablet 2 mg (DILAUDID) Given 05/10/2021 1:15 PM OCCUPATIONAL THERAPY TEACHER 2 mg 2 mg, oral, Every 4 hours PRN, severe pain or score 7-10 of 10, Starting on Sun05/10/21 at 1238 HYDROmorphone tablet 2 mg (DILAUDID) Given 05/14/2021 10:29 AM OCCUPATIONAL THERAPY TEACHER 2 mg 2 mg, oral, Every 4 hours PRN, moderate pain or score 4-6 of 10, Starting on Sun05/10/21 at 1518 Given 05/14/2021 6:23 AM OCCUPATIONAL THERAPY TEACHER 2 mg Given 05/12/2021 2:59 PM OCCUPATIONAL THERAPY TEACHER 2 mg HYDROmorphone tablet 4 mg (DILAUDID) Given 05/14/2021 2:11 AM OCCUPATIONAL THERAPY TEACHER 4 mg 4 mg, oral, Every 4 hours PRN, severe pain or score 7-10 of 10, Starting on Sun05/10/21 at 1518 Given 05/13/2021 8:26 PM OCCUPATIONAL THERAPY TEACHER 4 mg Given 05/13/2021 4:19 PM OCCUPATIONAL THERAPY TEACHER 4 mg ibuprofen tablet 600 mg (ADVIL,MOTRIN) Given 05/14/2021 6:19 AM OCCUPATIONAL THERAPY TEACHER 600 mg 600 mg, oral, Every 6 hours, First dose on Sun05/10/21 at 1900, start 6 hours after last ketorolac dose administered Given 05/13/2021 11:54 PM OCCUPATIONAL THERAPY TEACHER 600 mg Given 05/13/2021 5:50 PM OCCUPATIONAL THERAPY TEACHER 600 mg ketorolac injection 15 mg (TORADOL) Given 05/10/2021 12:32 PM OCCUPATIONAL THERAPY TEACHER 15 mg 15 mg, intravenous, Every 6 [...] drug clearance factors. Given 05/10/2021 6:01 AM OCCUPATIONAL THERAPY TEACHER 15 mg Given 05/10/2021 1:16 AM OCCUPATIONAL THERAPY TEACHER 15 mg lactated ringers Continued from OR 05/09/2021 5:33 PM OCCUPATIONAL THERAPY TEACHER 20 mL/hr 20 mL/hr 20 mL/hr, intravenous, Continuous, Starting on Sun05/09/21 at 1530, PACU & Post-Op lactated ringers Rate/Dose Change 05/09/2021 6:59 PM OCCUPATIONAL THERAPY TEACHER 40 mL/hr 40 mL/hr 40 mL/hr, intravenous, Continuous, Starting on Sun05/09/21 at 1845 lisdexamfetamine capsule 70 mg (VYVANSE) Given 05/14/2021 6:19 AM OCCUPATIONAL THERAPY TEACHER 70 mg 70 mg, oral, Daily, First dose on Sun05/10/21 at 0700, See tube feeding guidelines for tube feeding administration instructions. Given 05/13/2021 6:06 AM OCCUPATIONAL THERAPY TEACHER 70 mg Given 05/12/2021 6:56 AM OCCUPATIONAL THERAPY TEACHER 70 mg magnesium hydroxide suspension 30 mL (MILK OF Given 8:26 PM OCCUPATIONAL THERAPY TEACHER 30 mL MAGNESIA) 30 mL, oral, 2 times daily, First dose on Sun05/09/21 at 2100, Starting evening of surgery. After first bowel movement discontinue Magnesium hydroxide Given 05/13/2021 9:55 AM OCCUPATIONAL THERAPY TEACHER 30 mL Given 05/12/2021 7:07 PM OCCUPATIONAL THERAPY TEACHER 30 mL MCV4: quadrivalent meningococcal Given 05/12/2021 7:08 PM OCCUPATIONAL THERAPY TEACHER 0. 5 mL Other conjugate (PF) vaccine 0.5 mL (MENVEO) 0.5 mL, intramuscular, Once, On Misty 05/12/21 at 1600, For 1 dose melatonin tablet 3 mg Given 05/11/2021 10:21 PM OCCUPATIONAL THERAPY TEACHER 3 mg 3 mg, oral, Bedtime PRN, sleep, Starting on Sun05/09/21 at 202 MenB: meningococcal B vaccine 0.5 mL Given 05/12/2021 7:12 PM CS T 0.5 mL Other (BEXSERO) 0.5 mL, intramuscular, Once, On Misty 05/12/21 at 1600, For 1 dose metroNIDAZOLE in NaCl (iso-osm) New Bag 05/10/2021 2:36 PM OCCUPATIONAL THERAPY TEACHER 500 mg 200 mL/hr IVPB 500 mg (FLAGYL) 500 mg, intravenous, at 200 mL/hr, Administer over 30 Minutes, Every 8 hours, First dose on Sun05/09/21 at 2230, For 24 hours, Indications: Prophylaxis, surgical New Bag 05/10/2021 6:00 AM OCCUPATIONAL THERAPY TEACHER 500 mg 200 mL/hr New Bag 05/09/2021 10:36 PM OCCUPATIONAL THERAPY TEACHER 500 mg 200 mL/hr NaCl 0.9 % bolus 1,000 mL New Bag 05/10/2021 3:25 AM OCCUPATIONAL THERAPY TEACHER 1,000 mL 1000 mL/hr 1,000 mL, intravenous, at 1,000 mL/hr, Administer over 1 Hours, Once, On Sun05/10/21 at 0300, For 1 dose nalbuphine injection 2.5 mg (NUBAIN) Given 05/10/2021 1:08 PM OCCUPATIONAL THERAPY TEACHER 2.5 mg 2.5 mg, intravenous, Every 4 hours PRN, itching, Starting on Sun05/09/21 at 1840, For 4 doses, PACU & Post-Op Given 05/09/2021 9:31 PM OCCUPATIONAL THERAPY TEACHER 2.5 mg ondansetron (PF) injection 4 mg (ZOFRAN) Given 05/11/2021 7:29 PM OCCUPATIONAL THERAPY TEACHER 4 mg 4 mg, intravenous, Every 6 hours PRN, nausea, vomiting, Starting on Sun05/09/21 at 1840, Reassess for nausea or vomiting after at least 10 minutes. If nausea or vomiting persists administer next ordered antiemetic medications (order for antiemetic medication administration ondansetron then droperidol then promethazine). Given 05/10/2021 3:41 PM OCCUPATIONAL THERAPY TEACHER 4 mg oxybutynin tablet 5 mg (DITROPAN) 5 mg, oral, Every 8 hours PRN, bladder spasms, Startin g on Sun05/09/21 at 2025 oxyCODONE IR tablet 10 mg (ROXICODONE) Given 05/10/2021 7:59 AM OCCUPATIONAL THERAPY TEACHER 10 mg 10 mg, oral, Every 4 hours PRN, severe pain or score 7-10 of 10, Starting on Sun05/09/21 at 0836, For 24 hours, PACU & Post-Op, To be administered in the first 24 hours after intrathecal dose given. Given 05/09/2021 7:02 PM OCCUPATIONAL THERAPY TEACHER 10 mg oxyCODONE IR tablet 5 mg (ROXICODONE) Given 05/10/2021 1:26 AM OCCUPATIONAL THERAPY TEACHER 5 mg 5 mg, oral, Every 4 hours PRN, moderate pain or score 4-6 of 10, Starting on Sun05/09/21 at 0836, For 24 hours, PACU & Post-Op, To be administered in the first 24 hours after intrathecal dose given. promethazine injection 6.25 mg (PHENERGA N) Given 05/11/2021 10:11 PM OCCUPATIONAL THERAPY TEACHER 6.25 mg 6.25 mg, intravenous, Every 6 [...] Left Ear over 3 days 1 patch OCCUPATIONAL THERAPY TEACHER (TRANSDERM SCOP) 1 patch, transdermal, Administer over 72 Hours, Once as needed, nausea and vomiting, Starting on Sun05/09/21 at 0802, For 1 dose, Pre-Op, Contains 1.5 mg to deliver 1 mg/72 hours. sennosides tablet 17.2 mg (SENOKOT) Given 05/13/2021 10:30 PM OCCUPATIONAL THERAPY TEACHER 17.2 mg 17.2 mg, oral, Daily, First dose on Sun05/13/21 at 2115 simethicone chewable tablet 80 mg (MYLIC ON) Given 05/13/2021 9:55 AM OCCUPATIONAL THERAPY TEACHER 80 mg 80 mg, oral, 4 times daily PRN, flatulence, Starting on Sun05/09/21 at 2025 Given 05/13/2021 3:38 AM OCCUPATIONAL THERAPY TEACHER 80 mg Given 05/11/2021 3:35 PM OCCUPATIONAL THERAPY TEACHER 80 mg sodium phosphates enema 1 enema (FLEET) Given 05/09/2021 7:00 AM OCCUPATIONAL THERAPY TEACHER 1 enema 1 enema, rectal, Once, On Sun05/09/21 at 0645, For 1 dose, Pre-Op, Give Fleets if not done at home the morning of surgery documented in this encounter Active and Recently Administered Medications Times are shown in OCCUPATIONAL THERAPY TEACHER. Scheduled Medication Order 05/12/2021 05/13/2021 05/14/2021 acetaminophen tablet 1,000 mg (TYLENOL) 0657 (Given - Provider: Jessie Rebolledo R.N.)1222 (Given - Provider: Angela Paniagua R.N.)1803 (Given - Provider: Celeste Goldberg RChapincitoNChapincito)2304 (Given - Provider: Celeste Goldberg RChapincitoN.) 0606 (Given - Provider: Adonay LuciaN.)1126 (Given - Provider: Jaimee Morales RChapincitoN.)1750 (Given - Provider: Celeste Goldberg R.N.)2353 (Given - Provider: Jessie Rebolledo R.N.) 0619 (Given - Provider: Maximo Lucia.NChapincito) 1,000 mg, oral, Every 6 hours, First dos e on Sun05/10/21 at 0000, not to exceed 4 grams in 24 hours. enoxaparin injection 40 mg (LOVENOX) 1458 (Given - Pro vider: Angela Paniagua R.N.) 1401 (Given - Provider: Jaimee K Carmen, R.N.) 40 mg, subcutaneous, Daily, First dose on Sun05/11/21 at 1400 ibuprofen tablet 600 mg (ADVIL,MOTRIN) 0031 (Given - P rovider: Jessie Rebolledo, R.N.)0702 (Given - Provider: Jessie Rebolledo R.N.)1222 (Given - Provider: Adonay JimenesN.)1803 (Given - Provider: Celeste Goldberg RDayan.) 0338 (Given - Provider: Jessie Rebolledo R.N.)0955 [...] Celeste Goldberg RAustin) 0955 (Given - Provider: Jaimee Morales R.N.)2026 (Given - Provider: Celeste Goldberg RAustin) 0853 (Not Given - Provider: Celeste maldonado RChapincitoNChapincito - Reason: Order parameters not met) 30 mL, oral, 2 times daily, First dose o n 05/09/21 at 2100, Starting evening of surgery. After [...] Provider: Jessie Rebolledo RChapincitoNChapincito)1401 (Given - Provider: Jaimee Morales RChapincitoNChapincito)6 (Given - Provider: Celeste Goldberg R.N.) 0211 (Given - Provider: Jessie Rebolledo R.NChapincito) 5 mg, oral, 3 times daily PRN, [...] R.N.)0731 (See Alternative - Provider: Jaimee Morales RChapincitoNChapincito)1128 (See Alternative - Provider: Jaimee Morales R.N.)1619 (See Alternative - P rovider: Celeste Goldberg RAustin) 0211 (See Alternative - Provider: Loreto Rebolledo RChapincitoN.)0623 (Given - Provider: Jessie Rebolledo RChapincitoN.)1029 (Given - Provider: Cecille Miles RAustin, C.M.S.R.N.) 2 mg, oral, Every 4 hours [...] Paniagua R.N.)1459 (See Alternative - Provider: Angela D Arcelia, R.N.)1907 (Given - Provider: Celeste Goldberg R.N.) 0338 (Given - Provider: Jessie Rebolledo R.N.)0731 (Given - Provider: Adonay PettitNChapincito)1128 (Given - Provider: Adonay PettitNChapincito)1619 (Given - Provider: Celeste Goldberg R.N. - Comment: 4mg per pt request) 0211 (Given - Provider: Jessie Rebolledo R.N.)0623 (See Alternative - Provider: Adonay LuciaN.)1029 (See Alternative - Provider: Cecille Miles R.N., C.M.S.R.N.) 4 mg, oral, Every 4 hours PRN, severe pa in or score 7-10 of 10, Starting on Sun05/10/21 at 1518 2304 (Given - Provider: Celeste Goldberg R.N. - Comment: 4mg per patient request) 2025 (Given - Provider: Celeste Goldberg R.N.) melatonin tablet 3 mg 3 mg, oral, Bedtime PRN, sleep, Starting on Sun05/09/21 at 202 nalbuphine injection 2.5 mg (NUBAIN) 2.5 mg, [...] Rebolledo RAustin)0955 (Given - Provider: Jaimee Morales RAustin) 80 [...]
--- OUTSIDE RECORDS SUMMARY | 2022-04-04 14:14 | XMS_ITS | Encounter Summary ---
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 [facility] [address] [place] [phone] Referral ID Status Reason Start Date Expiration Date Visits Requ ested Visits Authorized [id number] Closed 05/03/2021 05/03/2022 1 1 Encounter Details Date Type Department Care Team Description 05/03/2021 Comprehensive Visit Division of Wilma Castro Neoplasm Of Ovary Laterality Unknown (HCC); Hepatobiliary and Kelly Estrada Lesion Liver Pancreas Surgery in [address] [place] [address] [place] [phone] [place], [place] [phone] (Work) [phone] Social History Tobacco Use Types Packs/Day Years [...] 02/26/2021 organizations such as cheondoism groups, unions, fraFreight Farms or athletic groups, or school groups? How [...] care including same-day records review and documentation. 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
--- OUTSIDE RECORDS SUMMARY | 2022-04-04 14:15 | XMS_ITS | Encounter Summary ---
:1975 Author Organization [facility] Address [address] [place] [address] Care Team Providers Name Role Phone Unavailable Primary Care Provider Unavailable Reason for Visit Reason Comments Nurse Visit Encounter Details Date Type Department Care Team Description 03/15/2021 Education Department of Oncology Mamie Rees Malignant Neoplasm Of in Alberto, D, M.S.N., R.N. Ovary Laterality [place] [address] [facility] Unknown (HCC) (Primary [address] [place], [place] Dx) [place] [phone] Social History Tobacco Use Types Packs/Day Years [...] Office Visit Oncology Walter Barnhart M.D., Ph.D. 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
--- OUTSIDE RECORDS SUMMARY | 2022-04-04 14:15 | XMS_ITS | Encounter Summary ---
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 [address] [place] [address] [place] [phone] Referral ID Status Reason Start Date Expiration Date Visits V isits Requested Authorized [id number] Authorized 02/17/2021 02/17/2022 12 12 Encounter Details Date Type Department Care Team Description 03/14/2021 Hospital Encounter Department of Walter Barnhart Malign ant Neoplasm Laboratory Medicine Kelly De La Cruz, Ph. D. Of Ovary Laterality in [address] Unknown (HCC) [place], [place] [address] [place] [phone] [place], [place] [phone] (Work) [phone] Social History Tobacco Use Types Packs/Day Years [...] Visit Oncology Walter Barnhart M.D., Ph.D. 200 [place] [address] documented as of this encounter Procedures Procedure [...] CDT eGFR-Black/Afric >90 >=60 03/14/2021 NPRG an Kyr[place] mL/min/BSA 10:10 AM CDT Comment: ----ADDITIONAL INFORMATION---- [...] Code Phon e Number [facility]- [address] [place], [place] [address] [place] [facility] [place] [id number] CBC, Chemotherapy, No Alerts (03/14/2021 9:47 [...] LAB BLOOD ADD-ON Performing Organization Address City/State/[facility] Code Phon e Number [address] [address] [address] [place] [facility] [address] Bilirubin, Total (03/14/2021 9:47 AM CDT) athologist Signature Bilirubin, 0.5 <=1.2 mg/dL 03/14/2021 NPRG Total, P 10:10 AM CDT Specimen Anatomical Collection Method Collection Time Receive d Time (Source) Location / / Volume Laterality Blood (Blood, 03/14/2021 9:47 AM 03/14/20 9:51 Venous) CDT AM CDT Walter Barnhart M.D., Ph.D. LAB BLOOD ADD-ON Performing Organization Address City/[facility] Code Phon e Number [address] [address] [place] [facility]G [address] AST (Aspartate Aminotransferase) (03/14/2021 9:47 AM CDT) Patholo gist Method Time Signature Aspartate 31 8 - 43 03/14/2021 NPR[facility] Aminotransferase U/L 10:10 AM CDT (AST), P Specimen Anatomical Collection Method Collection Time Receive d Time (Source) Location / / Volume Laterality Blood (Blood, 03/14/2021 9:47 AM 03/14/20 9:51 Venous) CDT AM CDT Walter Barnhart M.D., Ph.D. LAB BLOOD ADD-ON Performing Organization Address City/State/[facility] Phon e Number [facility]- [address] [place], [place] [address] [place] [facility] NPR[facility] [place] [address] [place] [address] [place] (ABNORMAL) Cancer Antigen 125 (CA 125) (03/14/2021 [...] Ph.D. 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
--- OUTSIDE RECORDS SUMMARY | 2022-04-04 14:15 | XMS_ITS | Encounter Summary ---
:1975 Author Organization [facility] Address [address] [place] [address] Care Team Providers Name Role Phone Unavailable Primary Care Provider Unavailable Reason for Visit Reason Comments Intake Assessment Encounter Details Date Type Department Care Team Description 04/05/2021 Clinical Communication Department of Walter Barnhart In take Assessment Oncology in S, MMickey., Ph.D. [place], [facility] [address] [place], [place] [address] [facility] [address] [place], [place] [phone] (Work) [phone] Social History Tobacco Use Types Packs/Day Years [...] Oncology Walter Barnhart M.D., Ph.D. [address] [place] [phone] documented as of this encounter Visit Diagnoses Not on filedocumented in this encounter
--- OUTSIDE RECORDS SUMMARY | 2022-04-04 14:15 | XMS_ITS | Encounter Summary ---
:[address] [facility] Address [address] [place] [address] Care Team Providers Name Role Phone Unavailable Primary Care Provider Unavailable Reason for Visit Reason Dottie Hwang Encounter Details Date Type Department Care Team Description 03/15/2021 Clinical Communication Department of Mamie Rees Oncology in D, M.S.N., R.N. [place], [place] [address] [facility] [address] [place] [phone] Social History Tobacco Use Types Packs/Day Years [...] Visit Oncology Walter Barnhart M.D., Ph.D. 200 [place] [address] documented as of this encounter Visit Diagnoses Not on filedocumented in this encounter
--- OUTSIDE RECORDS SUMMARY | 2022-04-04 14:15 | XMS_ITS | Encounter Summary ---
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 [address] [facility] [address] [place] [phone] Referral ID Status Reason Start Date Expiration Date Visits V isits Requested Authorized [id number] Authorized 02/17/2021 02/17/2022 12 12 Encounter Details Date Type Department Care Team Description 04/06/2021 Hospital Encounter Department of Walter Barnhart Malign ant Neoplasm Laboratory Medicine Kelly De La Cruz, Ph. D. Of Ovary Laterality in [address] Unknown (HCC) [place], [place] [address] [place] [address] [place], [place] [phone] (Work) [phone] Social History Tobacco Use Types Packs/Day Years [...] Oncology Walter Barnhart M.D., Ph.D. [address] [place] [address] documented as of this encounter Procedures Procedure [...] >90 >=60 04/06/2021 NPRG an Citizen [place] mL/min/BSA 9:46 AM CDT Comment: ----ADDITIONAL INFORMATION---- [...] Organization Address City/State/ZIP Code Phon e Number [facility]- [address] [place], [place] [address] [place] [address] [place] [address] [facility] [address] (ABNORMAL) [...] Ph.D. LAB BLOOD ADD-ON Performing Organization Address City/[facility] Phon e Number [address] Bilirubin, Total (04/06/2021 9:14 AM CDT) P athologist Signature Bilirubin, 0.7 <=1.2 mg/dL 04/06/2021 NPRG Total, P 9:46 AM CDT Specimen Anatomical Collection Method Collection Time Receive d Time (Source) Location / / Volume Laterality Blood (Blood, 04/06/2021 9:14 AM 04/06/20 9:17 Venous) CDT AM CDT Walter Barnhart M.D., Ph.D. LAB BLOOD ADD-ON Performing Organization Address City/[facility] Phon e Number [address] LAB NPRG [place] [phone] [address] AST (Aspartate Aminotransferase) (04/06/2021 9:14 AM [...] Ph.D. LAB BLOOD ADD-ON Performing Organization Address City/[facility] Phon e Number [facility]- [address] [place], [place] [address] [place] [facility] [place] [address] (ABNORMAL) Cancer [...] supplements. ??If the result does not [facility] clinical observations, repeat testing after patient [...] Ph.D. 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
--- OUTSIDE RECORDS SUMMARY | 2022-04-04 14:15 | XMS_ITS | Encounter Summary ---
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 200 [address] [facility] [address] [place] [phone] Referral ID Status Reason Start Date Expiration Date Visits V isits Requested Authorized [id number] Authorized 02/17/2021 02/17/2022 12 12 Encounter Details Date Type Department Care Team Description 04/07/2021 Office Visit Department of Marychuy Kapoor Malignan t Neoplasm Of Ovary Laterality Unknown (HCC) (Primary Dx); Oncology in CONTACT LENS POLISHER, C.N.P., Neutropenia Dr hannah Lorenzo (HCC) [place], [place] M.S.N. [address] [place] [address] [address] [place] [phone] Social History Tobacco Use Types Packs/Day Years [...] ovarian cancer Collaborating provider: Dr. Juan Cardona [phone] HISTORY OF PRESENT ILLNESS: Ms. Yang is a very pleasant 45 y.o. 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 02/03/2021 Other Ultrasound with bilateral complex solid [...] Chemotherapy CARBOplatin AUC 6 / PACLitaxel ( PELLET PREPARATION OPERATOR ) Start Date: 02/25/2021 INTERVAL HISTORY: presents [...] Oncology Walter Barnhart M.D., Ph.D. [address] [place] [phone] documented as of this encounter Results Creatinine with Estimated GFR (04/13/2021 9:15 AM CDT) athologist Signature Creatinine 0.69 0.59 - 04/13/2021 NPRG 1.04 mg/dL 9:39 AM CDT eGFR-Black/Afric >90 >=60 04/13/2021 NPRG an Portuguese mL/min/BSA 9:39 AM CDT Comment: ----ADDITIONAL INFORMATION---- [...] Code Phon e Number [facility]- [address] [place], [place] [address] [facility] [place] [address] [facility] [address] CBC, Chemotherapy, [...] Ph.D. LAB BLOOD ADD-ON Performing Organization Address City/[facility]/ZIP Code Phon e Number [address] LAB NPRG [place] [phone] [address] Bilirubin, Total (04/13/2021 9:15 AM CDT) athologist Signature Bilirubin, 0.6 <=1.2 mg/dL 04/13/2021 NPRG Total, P 9:39 AM CDT Specimen Anatomical Collection Method Collection Time Receive d Time (Source) Location / / Volume Laterality Blood (Blood, 04/13/2021 9:15 AM 04/13/20 9:17 Venous) CDT AM CDT Walter Barnhart M.D., Ph.D. LAB BLOOD ADD-ON Performing Organization Address City/[facility] Phon e Number [place] [address] 1 [facility] NPRG [address] AST (Aspartate Aminotransferase) (04/13/2021 9:15 AM [...] Code Phon e Number [facility]- [address] [place], [place] [address] [facility] NPR[facility] [place] [address] (ABNORMAL) Cancer [...] [facility]- [address] [place] [address] [facility] [place] [address] [facility] [address] AST (Aspartate Aminotransferase) (04/07/2021 9:54 AM CDT) Patholo gist Method Time Signature Aspartate 34 8 - 43 04/07/2021 METH Aminotransferase U/L 10:27 AM CDT (AST), P Specimen Anatomical Collection Method Collection Time Receive d Time (Source) Location / / Volume Laterality Blood (Blood, 04/07/2021 9:54 AM 04/07/20 Venous) CDT 10:04 AM CDT Sabine Correa APRNNAnthony., M.S.N. LAB BLOOD ADD-ON Performing Organization Address City/[facility] Phon e Number [facility] - [address] [place], [place] [address] [facility] [place] [address] Laboratories-[place] [address] (ABNORMAL) CBC, Chemotherapy, No Alerts (04/07/2021 [...] M.S.N. 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
--- OUTSIDE RECORDS SUMMARY | 2022-04-04 14:15 | XMS_ITS | Encounter Summary ---
:1975 Author Organization [facility] Address [address] [place] [address] Care Team Providers Name Role Phone Unavailable Primary Care Provider Unavailable Reason for Visit Reason Comments Intake Assessment Encounter Details Date Type Department Care Team Description 03/11/2021 Clinical Communication Department of Candie Monahan Assessment Oncology in [facility] [address] [facility] [address] [place] [phone] Social History Tobacco Use Types Packs/Day Years [...] Oncology Walter Barnhart M.D., Ph.D. [address] [place] [phone] documented as of this encounter Visit Diagnoses Not on filedocumented in this encounter
--- OUTSIDE RECORDS SUMMARY | 2022-04-04 14:15 | XMS_ITS | Encounter Summary ---
:1975 Author Organization [facility] Address [address] [place] [address] Care Team Providers Name Role Phone Elsewhere, Pcp Primary Care Provider Unavailable Reason for Visit Reason Comments Myriad Reclassification Encounter Details Date Type Department Care Team Description 03/03/2021 Clinical Department of Claudette Bansal Reclass ification Communication Medical Genetics Kierra Marsh, [facility] in [address] [facility] [phone] Social History Tobacco Use Types Packs/Day Years [...] were not included. Reclassification report released by [facility] for the testing originally completed 03/11/21 APC [id number]: Uncertain to benign Forward results to Claudette. Telephone Encounter - Barry More - 03/16/2021 7:58 AM CDT Results received in dept pool. Forwarded to the provider for review. Telephone Encounter - Barry More - 03/15/2021 9:40 AM CDT Sent results to [facility] Telephone Encounter - Montse Zaldivar - 03/11/2021 4:26 PM CDT Testing has been completed in the [employer] portal, pending results being scanned into Epic to be sentto Clinical team for review. VUS, forward to Claudette Telephone Encounter - Barry More - 03/03/2021 9:39 AM CDT Date: 03/03/21 Lab: [facility] - SEND TO ONCOLOGY Test: BRACAnalysis with myRisk- Sample: Lab to mail a saliva kit to the pt and Mail Order has been scheduled and checked in. Provider: Claudette Corona CGC Insurance: Commercial documented in this encounter Plan of Treatment Upcoming Encounters Date Type Specialty Care Team Description 04/11/2022 Clinical Communication Admitting/Central Scheduling 04/13/2022 Office Visit Oncology Walter Barnhart M.D., Ph.D. [address] [place] [phone] documented as of this encounter Visit Diagnoses Not on filedocumented in this encounter Additional Health Concerns Infection Onset Date Last Indicated Resolved Time COVID19 Pending 04/25/2021 04/25/2021 04/25/2021 4:15 AM OVERSEER KOSHER KITCHEN COVID19 Pending 05/08/2021 05/08/2021 05/08/2021 1:24 PM OVERSEER KOSHER KITCHEN documented as of this encounter Care Teams Floor Worker [place] Relationship Specialty Start Date End Date Elsewhere, Pcp PCP - General Internal Medicine 07/08/21 documented as of this encounter
--- OUTSIDE RECORDS SUMMARY | 2022-04-04 14:15 | XMS_ITS | Encounter Summary ---
:1975 Author Organization [facility] Address [address] [place] [address] Care Team Providers Name Role Phone Unavailable Primary Care Provider Unavailable Encounter Details Date Type Department Care Team Description 03/03/2021 Hospital Encounter Department of Raymon Bonilla Neoplasm Of Ovary Laterality Unknown (HCC); Laboratory Medicine Kelly Myles Cancer Bladder Family History; and Pathology, [address] [place] [address] Cancer Pancreas Family History [facility] [place], [place] [phone] [place] [address] [place], [place] (Work) [phone] Social History Tobacco Use Types Packs/Day Years [...] Oncology Walter Barnhart M.D., Ph.D. [address] [place] [phone] documented as of this encounter Procedures Procedure [...] [facility]Risk-Sent Out Lab (03/05/2021 2:32 PM CDT) [facility] Method Time Signature BRACAnalysis SEE COMMENT 02/01/2022 MYRI with myRisk 2:46 PM CDT Comment: REVISED RESULTS Revised Report has been issued by [facility]. The revision has been sent [...] Organization Address City/State/ZIP Code Phon e Number [employer] [address] [facility] [employer] [place], [place] [employer] 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
--- OUTSIDE RECORDS SUMMARY | 2022-04-04 14:15 | XMS_ITS | Encounter Summary ---
:1975 Author Organization [facility] Address [address] [place] [address] Care Team Providers Name Role Phone Unavailable Primary Care Provider Unavailable Reason for Visit Reason Comments Genetic Test Results Encounter Details Date Type Department Care Team Description 03/16/2021 Documentation Department of Medical Brian More Genetic Test Results Genetics in [place], [facility] [address] [place], [place] [address] [facility] [phone] [place], [place] [phone] (Work) [phone] Social History Tobacco Use Types Packs/Day Years [...] she elected to pursue the BRCAnalysis with [facility] Cancer [facility] [employer]. These results were communicated to the patient via the patient online services portal by our genetic counseling delivery assistant. 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 ?? A VUS is a change in [...] recommendations, such as those made by the [place] [employer], do remain appropriate. FOLLOW UP/RECOMMENDATIONS [...] Oncology Walter Barnhart M.D., Ph.D. [address] [place] [phone] documented as of this encounter Visit Diagnoses Not on filedocumented in this encounter
--- OUTSIDE RECORDS SUMMARY | 2022-04-04 14:15 | XMS_ITS | Encounter Summary ---
:1975 Author Organization [facility] Address [address] [place] [address] Care Team Providers Name Role Phone Unavailable Primary Care Provider Unavailable Reason for Visit Episode Based Medications (Routine) - Authorized Specialty Diagnoses / Procedures Referred By Contact Refer red To Contact Diagnoses Malignant Neoplasm Of Ovary Laterality Unknown (HCC) Walter Barnhart M.D., R st Onc Rogo Procedures VA CARBOPLATIN INJECTION VA PACLITAXEL INJECTION VA INJECTION, PEGFILGRASTIM 6MG VA DEXAMETHASONE SODIUM PHOS Ph.D. 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 [place] [address] [place] [phone] [place], [place] [phone] (Wo rk) Social History Tobacco Use Types [...] Oncology Walter Barnhart M.D., Ph.D. [address] [place] [address] documented as of this encounter Visit Diagnoses [...]
--- OUTSIDE RECORDS SUMMARY | 2022-04-04 14:15 | XMS_ITS | Encounter Summary ---
:1975 Author Organization [facility] Address [address] [place] [address] Care Team Providers Name Role Phone Unavailable Primary Care Provider Unavailable Reason for Visit Episode Based Medications (Routine) - Authorized Specialty Diagnoses / Procedures Referred By Contact Refer red To Contact Diagnoses Malignant Neoplasm Of Ovary Laterality Unknown (HCC) Walter Barnhart M.D., [facility] Onc Rogo Procedures AR CARBOPLATIN INJECTION AR PACLITAXEL INJECTION AR INJECTION, PEGFILGRASTIM 6MG AR DEXAMETHASONE SODIUM PHOS Ph.D. 200 [address] [facility] [address] [place] [phone] Referral ID Status Reason Start Date Expiration Date Visits V isits Requested Authorized [id number] Authorized 02/17/2021 02/17/2022 12 12 Encounter Details Date Type Department Care Team Description 04/13/2021 Hospital Encounter Department of Walter Barnhart Malign ant Neoplasm Of Ovary Laterality Unknown (HCC); Laboratory Medicine Kelly De La Cruz, Ph. D. Neutropenia Drug Induced (HCC) in [address] [place] [phone] [place], [place] [phone] (Work) [phone] Social History Tobacco Use Types Packs/Day Years [...] Oncology Walter Barnhart M.D., Ph.D. [address] [place] [address] documented as of this encounter Procedures Procedure [...] CDT eGFR-Black/Afric >90 >=60 04/13/2021 NPRG an Venezuelan mL/min/BSA 9:39 AM CDT Comment: ----ADDITIONAL INFORMATION---- [...] Organization Address City/State/ZIP Code Phon e Number [facility]- [address] [place], [place] [address] [place] [address] LAB NPRG [facility] [place] [place] [address] [facility] [address] CBC, Chemotherapy, [...] Performing Organization Address City/[facility] Phon e Number [address] LAB [place] [phone] Bilirubin, Total (04/13/2021 9:15 AM CDT) P athologist Signature Bilirubin, 0.6 <=1.2 mg/dL 04/13/2021 NPRG Total, P 9:39 AM CDT Specimen Anatomical Collection Method Collection Time Receive d Time (Source) Location / / Volume Laterality Blood (Blood, 04/13/2021 9:15 AM 04/13/20 9:17 Venous) CDT AM CDT Walter Barnhart M.D., Ph.D. LAB BLOOD ADD-ON Performing Organization Address City/[facility] Phon e Number [place] [address] 1 [place] [facility] [place] [phone] [address] AST (Aspartate Aminotransferase) (04/13/2021 9:15 AM [...] Organization Address City/State/ZIP Code Phon e Number [facility]- [address] [place], [place] [address] [place] [address] (ABNORMAL) Cancer [...] ??If the result does not [facility] clinical observations, repeat testing after [...] Organization Address City/State/ZIP Code Phon e Number [facility]- [address] [place] [address] [facility] [place], [place] [address] [place] [address] documented in this encounter Visit Diagnoses Diagnosis 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
--- OUTSIDE RECORDS SUMMARY | 2022-04-04 14:15 | XMS_ITS | Encounter Summary ---
:1975 Author Organization [facility] Address [address] [place] [address] Care Team Providers Name Role Phone Unavailable Primary Care Provider Unavailable Encounter Details Date Type Department Care Team Description 03/17/2021 Orders Only Department of Oncology ShakaerLaura, Malignant Neoplasm Of in [place], R.N. Ovary Laterality [place] [address] [facility] Unknown (HCC) (Primary [address] [place], [place] Dx) [place] [address] [phone] Social History Tobacco Use Types Packs/Day Years [...] Visit Oncology Walter Barnhart M.D., Ph.D. 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
--- OUTSIDE RECORDS SUMMARY | 2022-04-04 14:15 | XMS_ITS | Encounter Summary ---
:1975 Author Organization [facility] Address [address] [place] [address] Care Team Providers Name Role Phone Unavailable Primary Care Provider Unavailable Reason for Visit Reason Comments patient hospitalized locally Encounter Details Date Type Department Care Team Description 04/25/2021 Clinical Department of [place], patient hospit alized Communication Oncology in vitor Yuan [facility], R.N. [place] [address] [address] [facility] [address] [place] [address] [phone] Social History Tobacco Use Types Packs/Day Years [...] Rees M.SDayan., R.N. - 04/25/2021 4:09 PM RICE FARMWORKER SUBJECTIVE CHIEF COMPLAINT / REASON FOR CALL patient hospitalized locally Information Discussed Spoke with Man. Constance is admitted in [place] with possible bowel obstruction/blockage from stool. Relayed that Dr. Oviedo did review imaging and there's probability she needs extensive stool clean out but that is ultimately up to local providers to manage. He was not sure if she was havingany elevated temps or not. Doctors have not rounded yet today. Advised that management of potentially infection would be again responsibility of [place] team. Since imaging and surgery pre op is scheduled with Dr. Oviedo on 05/03 we will only need a CT chest next week and will cancel the abdomen/pelvis. Man verbalizes understanding. PLAN Disposition/Recommendation: recommended continue engagement in self-management activities Information/Education: patient/caller able to teach back Caller agreeable to plan of care: yes The following references were used: nursing clinical judgement FARMWORKER Telephone Encounter - Rene Bettencourt - 04/25/2021 2:41 PM CST Do we have a valid auth to speak with caller? Man Reason for call: Constance is hospitalized with a twisted intestine, Man would like a horses or mules teamster to call him Thank you, Rene Senior Investment Manager RST ONC [employer] LINE WORKER POD 2 FARMWORKER documented in this encounter Plan of Treatment Upcoming Encounters Date Type Specialty Care Team Description 04/11/2022 Clinical Communication Admitting/Central Scheduling 04/13/2022 Office Visit Oncology Walter Barnhart M.D., Ph.D. [address] [place] [phone] documented as of this encounter Visit Diagnoses Not on filedocumented in this encounter Additional Health Concerns Infection Onset Date Last Indicated Resolved Time COVID19 Pending 04/25/2021 04/25/2021 04/25/2021 4:15 AM RICE FARMWORKER documented as of this encounter
--- OUTSIDE RECORDS SUMMARY | 2022-04-04 14:15 | XMS_ITS | Encounter Summary ---
:1975 Author Organization [facility] Address [address] [place] [address] Care Team Providers Name Role Phone Unavailable Primary Care Provider Unavailable Reason for Visit Episode Based Medications (Routine) - Authorized Specialty Diagnoses / Procedures Referred By Contact Refer red To Contact Diagnoses Malignant Neoplasm Of Ovary Laterality Unknown (HCC) Walter Barnhart M.D., R st Onc Rogo Procedures [place] CARBOPLATIN INJECTION [place] PACLITAXEL INJECTION [place] INJECTION, PEGFILGRASTIM 6MG [place] DEXAMETHASONE SODIUM PHOS Ph.D. 200 [address] [facility] [address] [place] [phone] Referral ID Status Reason Start Date Expiration Date Visits V isits Requested Authorized [id number] Authorized 02/17/2021 02/17/2022 12 12 Encounter Details Date Type Department Care Team Description 03/15/2021 Office Visit Department of Oncology Candie Monahan M [facility] Ovary Laterality [address] Unknown (HCC) [address] [place] [phone] Social History Tobacco Use Types Packs/Day Years [...] Chemotherapy CARBOplatin AUC 6 / PACLitaxel ( MALE MODEL ) Start Date: 02/25/2021 INTERVAL HISTORY: Visit [...] Oncology Walter Barnhart M.D., Ph.D. 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
--- OUTSIDE RECORDS SUMMARY | 2022-04-04 14:15 | XMS_ITS | Encounter Summary ---
:1975 Author Organization [facility] Address [address] [place] [address] Care Team Providers Name Role Phone Unavailable [...] Expiration Date Visits Requ ested Visits Authorized [id number] 1 1 Encounter Details Date Type Department Care Team Description 04/25/2021 Emergency [facility], Norma Mckay D.O. [address] [place] [phone] Obstruction Intestinal (HCC) (Primary Dx ); [facility], Dat Rae M.D. [address] [place] [address] Fever Of Unknown Origin Second Floor Latisha Quintanilla M.D. [address] [place] [phone] [address] [place] [address] Social History Tobacco Use Types [...] Comments Blood Pressure 111/63 04/25/2021 8:42 AM SENIOR SCIENCE CONSULTANT Pulse 82 04/25/2021 8:42 AM SENIOR SCIENCE CONSULTANT Temperature 37.7 ??C (99.9 ??F) 04/25/2021 8:42 AM SENIOR SCIENCE CONSULTANT Respiratory Rate 16 04/25/2021 8:42 AM SENIOR SCIENCE CONSULTANT Oxygen Saturation 97% 04/25/2021 8:42 AM SENIOR SCIENCE CONSULTANT Inhaled Oxygen Concentration - - Weight 59.5 kg (131 lb 2.8 oz) 04/25/2021 5:00 AM SENIOR SCIENCE CONSULTANT Height 170.2 cm (5' 7.01) 04/25/2021 5:00 AM SENIOR SCIENCE CONSULTANT Body Mass Index 20.54 04/25/2021 5:00 AM SENIOR SCIENCE CONSULTANT documented in this encounter Discharge Summaries Latisha Quintanilla M.D. - 04/25/2021 4:54 PM CST DISCHARGE SUMMARY BRIEF OVERVIEW Hospital: [facility] Discharge Provider: Latisha Quintanilla M.D. No primary [...] Scheduled Appointments 05/02/2021 10:20 AM LAB 01 NPOK Laboratory Medicine 05/02/2021 3:[address] ROGO [...] leukocytosis. On 04/25/2021, she presented to the [facility] ED for persistent lower abdominal pain [...] Negative Bilirubin Negative pH 8.5 (A) Specific [place] 1.020 Urobilinogen 0.2 Lactate, baseline Collection Time: [...] and caregiver(s). Latisha Quintanilla M.D. Family Medicine, [address] [address] OR SCIENCE CONSULTANT documented in this encounter Medications at Time of Discharge Medication Sig Dispensed Refills Start Date End Date blsdcit-zvkq-oayba-oreg- Take 1 tablet by 0 capryl 100 [...] at discharge: TBD Manasa Grissom Pharm.D., R.Ph. OR SCIENCE CONSULTANT documented in this encounter H&P Notes Dat [...] ovarian cancer diagnosed recently. Being followed in [place] and undergoing chemotherapy. Last chemotherapy was 10 [...] [place]. She will be followed by hospitalist qianae week later this morning. When seen in room, patient relates that her discomfort is much improvedand rate about a 1 on a scale of 0-10. Mid under observation status. Review past medical history andmedication list. Also reviewed ER visit notes and lab result. I wish patient well. OR SCIENCE CONSULTANT documented in this encounter Nursing Notes Jaimee [...] by: Jaimee Starks R.N. 04/25/21 5:41 PM SENIOR SCIENCE CONSULTANT OR SCIENCE CONSULTANT Jaimee Starks R.N. - 04/25/2021 5:23 PM [...] by: Jaimee Starks R.N. 04/25/21 5:25 PM SENIOR SCIENCE CONSULTANT OR SCIENCE CONSULTANT Ally Smith R.N. - 04/25/2021 6:43 AM [...] by: Aurelia Smith R.N. 04/25/21 6:46 AM SENIOR SCIENCE CONSULTANT OR SCIENCE CONSULTANT documented in this encounter ED Notes Federica Mckay D.O. - 04/25/2021 1:38 AM CST [facility] EMERGENCY DEPARTMENT ENCOUNTER Patient Name: [...] Negative Bilirubin Negative pH 8.5 (*) Specific [place] 1.020 Urobilinogen 0.2 C-REACTIVE PROTEIN (CRP), S/P [...] low-grade fever, I did contact Oncology in [place] where she doctors, and spoke with the on-call physician Dr. Sadler regarding admitting locally verses transfer to [facility]. Dr. Sadler noted that obstructions due [...] Unknown Origin Derrick Rodriguez Sarah, D.O. 04/25/21440 OR SCIENCE CONSULTANT documented in this encounter Miscellaneous Notes Hospital Course - Latisha Quintanilla M.D. - 04/25/2021 4:51 PM CST Angelica Yang is a 45 year old female with ovarian cancer (on chemotherapy) and Neulasta associated leukocytosis. On 04/25/2021, she presented to the [facility] ED for persistent lower abdominal pain [...] Negative Bilirubin Negative pH 8.5 (A) Specific [place] 1.020 Urobilinogen 0.2 Lactate, baseline Collection Time: [...] SARS Coronavirus 2, Source, Rapid Swab, Nasopharynx OR SCIENCE CONSULTANT documented in this encounter Plan of Treatment Upcoming Encounters Date Type Specialty Care Team Description 04/11/2022 Clinical Communication Admitting/Central Scheduling 04/13/2022 Office Visit Oncology Walter Barnhart M.D., Ph.D. [address] [place] [phone] documented as of this encounter Procedures Procedure Name Priority Date/Time Associated Comments Diagnosis ADULT OXYGEN THERAPY Routine 04/25/2021 5:50 AM SENIOR SCIENCE CONSULTANT SARS CORONAVIRUS 2, STAT 04/25/2021 3:20 Resul ts for PCR RAPID, V AM SENIOR SCIENCE CONSULTANT this procedure are in the results section. CT ABDOMEN PELVIS RAD - Semiurgent 04/25/2021 2:27 Res ults for WITH IV CONTRAST (Fast; most ED AM SENIOR SCIENCE CONSULTANT this proc edure patients; some are in the inpatients) results section. BACTERIA / EBONY STAT 04/25/2021 2:07 Result s for CULTURE, BLOOD AM SENIOR SCIENCE CONSULTANT this procedur e are in the results section. BACTERIA / EBONY STAT 04/25/2021 1:58 Result s for CULTURE, BLOOD AM SENIOR SCIENCE CONSULTANT this procedur e are in the results section. CBC WITH STAT 04/25/2021 1:58 Results for DIFFERENTIAL, B AM SENIOR SCIENCE CONSULTANT this procedu re are in the results section. C-REACTIVE PROTEIN STAT 04/25/2021 1:58 Result s for (CRP), S/P AM SENIOR SCIENCE CONSULTANT this procedure are in the results section. LACTATE, B/P STAT 04/25/2021 1:58 Results for AM SENIOR SCIENCE CONSULTANT this procedure are in the results section. COMPREHENSIVE STAT 04/25/2021 1:58 Results for METABOLIC PANEL, S/P AM SENIOR SCIENCE CONSULTANT this pr ocedure are in the results section. URINALYSIS WITH STAT 04/25/2021 1:38 Results f or MICROSCOPIC IF AM SENIOR SCIENCE CONSULTANT this procedur e INDICATED, U are in the results section. documented in this encounter Results SARS Coronavirus 2, PCR Rapid, V Symptomatic (04/25/2021 3:20 AM SENIOR SCIENCE CONSULTANT) [facility] Method Time Signature SARS CoV-2, Undetected Undetected 04/25/2021 [facility] PCR, Rapid, V 4:15 AM SENIOR SCIENCE CONSULTANT Comment: ----ADDITIONAL INFORMATION---- This RT-PCR test was performed using the Gayle SARS-CoV-2 and Influenza A/B Reagent assay from [employer], which has received Emergency Use Authori zation(EUA) by the U.S. Food and Drug Administration . Fact sheets for this Emergency Use Autho rization (EUA) assay can be found at the following link s: For Healthcare Providers: https://www.fda.gov/media/869241/downloa d For Patients: https://www.fda.gov/media/180011/downloa d SARS Coronavirus 2, Source, Rapid Swab, Nasopharynx 04/25/2021 3:48 AM SENIOR SCIENCE CONSULTANT NPRG Specimen Anatomical Collection Method Collection Time Receive d Time (Source) Location / / Volume Laterality Varies 04/25/2021 3:20 AM 3:48 (Nasopharynx) SENIOR SCIENCE CONSULTANT AM SENIOR SCIENCE CONSULTANT Federica Mckay D.O. LAB MICROBIOLOGY - GENERAL O RDERABLES Performing Organization Address City/State/ZIP Code Phon e Number [facility]- [address] [place], [place] [address] [facility] [place] [address] Abdomen Pelvis with IV Contrast (04/25/2021 2:27 AM SENIOR SCIENCE CONSULTANT) Anatomical Region Laterality Modality Abdomen, Pelvis, Abdominal RST LOS, Abdominal ARZ LOS, N/A Computed Tomography Abdominal FLA LOS Specimen (Source) Anatomical Collection Method Collection Time Re ceived Time Location / / Volume Laterality 04/25/2021 8:33 AM SENIOR SCIENCE CONSULTANT Impressions 04/25/2021 8:46 AM SENIOR SCIENCE CONSULTANT 1. Interval size decrease of cystic septated [...] cting system calculus. Narrative 04/25/2021 8:46 AM SENIOR SCIENCE CONSULTANT EXAM: CT ABDOMEN PELVIS WITH IV CONTRAST [...] Ebony Culture, Blood #1 (04/25/2021 2:07 AM SENIOR SCIENCE CONSULTANT) [facility] gist Method Time Signature Bacteria/[place] No growth 04/30/2021 NPR[facility] da Culture, after 5 3:03 AM SENIOR SCIENCE CONSULTANT Blood day/s of incubation. Specimen (Source) Anatomical Collection Method Collection Time Re ceived Time Location / / Volume Laterality Blood (Blood, 04/25/2021 2:07 04/25/2021 2:32 Peripheral Draw) AM SENIOR SCIENCE CONSULTANT AM SENIOR SCIENCE CONSULTANT Comment: Specimen Source Site: Blood Federica Mckay D.O. LAB MICROBIOLOGY - GENERAL O RDERABLES Performing Organization Address City/[facility]/ZIP [facility] [place], [place] Phon e Number [address] [phone] [facility] NPRG [place] [phone] [address] (ABNORMAL) CRP (C-Reactive Protein) (04/25/2021 1:58 AM SENIOR SCIENCE CONSULTANT) athologist Signature C-Reactive 8.3 (H) <=8.0 mg/L 04/25/2021 [facility] Protein (CRP), 2:38 AM SENIOR SCIENCE CONSULTANT P Specimen Anatomical Collection Method Collection Time Receive d Time (Source) Location / / Volume Laterality Blood (Blood, 04/25/2021 1:58 AM 04/25/20 2:26 Venous) SENIOR SCIENCE CONSULTANT AM SENIOR SCIENCE CONSULTANT Federica Mckay D.O. LAB BLOOD ADD-ON Performing Organization Address City/[facility]/ZIP [facility] [place], [place] Phon e Number [address] [phone] [place] [address] (ABNORMAL) Comprehensive Metabolic Panel (04/25/2021 1:58 AM SENIOR SCIENCE CONSULTANT) athologist Signature Potassium, P 4.3 3.6 - 5.2 04/25/2021 NPRG mmol/L 2:38 AM SENIOR SCIENCE CONSULTANT Sodium, P 135 135 - 145 04/25/2021 [facility] mmol/L 2:38 AM SENIOR SCIENCE CONSULTANT Chloride, P 101 98 - 107 04/25/2021 [facility] mmol/L 2:38 AM SENIOR SCIENCE CONSULTANT Bicarbonate, P 25 22 - 29 04/25/2021 NPR[facility] mmol/L 2:38 AM SENIOR SCIENCE CONSULTANT Anion Gap, P 9 7 - 15 04/25/2021 NPRG 2:38 AM SENIOR SCIENCE CONSULTANT BUN (Blood Urea 16 6 - 21 04/25/2021 NPR[facility] Nitrogen), P mg/dL 2:38 AM SENIOR SCIENCE CONSULTANT Creatinine 0.75 0.59 - 04/25/2021 [facility] 1.04 mg/dL 2:38 AM SENIOR SCIENCE CONSULTANT eGFR-Black/Afric >90 >=60 04/25/2021 NPRG an Mongolian mL/min/BSA 2:38 AM SENIOR SCIENCE CONSULTANT Comment: ----ADDITIONAL INFORMATION---- Estimated GFR calculated using the 2009 CKD_EPI creatinine equation. eGFR Non-Black/ >90 >=60 mL/min/BSA 04/25/2021 2:38 AM SENIOR SCIENCE CONSULTANT NPR[facility] Comment: ----ADDITIONAL INFORMATION---- Estimated GFR calculated using the 2009 CKD_EPI creatinine equation. Calcium, Total, P 9.6 8.6 - 10.0 mg/dL 04/25/2021 2:38 AM SENIOR SCIENCE CONSULTANT NPRG Glucose, P 105 70 - 140 mg/dL 04/25/2021 2:38 AM SENIOR SCIENCE CONSULTANT N PRG Protein, Total, P 7.4 6.3 - 7.9 g/dL 04/25/2021 2:38 A M SENIOR SCIENCE CONSULTANT NPRG Albumin, P 4.5 3.5 - 5.0 g/dL 04/25/2021 2:38 AM SENIOR SCIENCE CONSULTANT N PRG Aspartate Aminotransferase 37 8 - 43 U/L 04/25/2021 2 :38 AM SENIOR SCIENCE CONSULTANT NPRG (AST), P Alkaline Phosphatase, P 116 (H) 35 - 104 U/L 04/25/2021 2: 38 AM SENIOR SCIENCE CONSULTANT NPR[facility] Alanine Aminotransferase 28 7 - 45 U/L 04/25/2021 2:3 8 AM SENIOR SCIENCE CONSULTANT NPRG (ALT), P Bilirubin, Total, P 0.2 <=1.2 mg/dL 04/25/2021 2:38 AM SENIOR SCIENCE CONSULTANT NPRG Specimen Anatomical Collection Method Collection Time Receive d Time (Source) Location / / Volume Laterality Blood (Blood, 04/25/2021 1:58 AM 04/25/20 2:26 Venous) SENIOR SCIENCE CONSULTANT AM SENIOR SCIENCE CONSULTANT Federica Mckay D.O. LAB BLOOD ADD-ON Performing Organization Address City/State/ZIP Code Phon e Number [facility]- [address] [place], [place] [address] [place] [address] [place] [address] [facility] [address] [place] (ABNORMAL) CBC with Differential, Blood (04/25/2021 1:58 AM SENIOR SCIENCE CONSULTANT) [facility] gist Method Time Signature Hemoglobin 11.5 (L) 11.6 - 04/25/2021 NPR[facility] 15.0 g/dL 2:47 AM SENIOR SCIENCE CONSULTANT Hematocrit 35.1 (L) 35.5 - 04/25/2021 NPRG 44.9 % 2:47 AM SENIOR SCIENCE CONSULTANT Erythrocytes 3.90 (L) 3.92 - 04/25/2021 NPR[facility] 5.13 2:47 AM SENIOR SCIENCE CONSULTANT x10(12)/L MCV 90.0 78.2 - 04/25/2021 NPR[facility] 97.9 fL 2:47 AM SENIOR SCIENCE CONSULTANT RBC Distrib Width 16.3 (H) 12.2 - 04/25/2021 NPR[facility] 16.1 % 2:47 AM SENIOR SCIENCE CONSULTANT Platelet Count 213 157 - 371 04/25/2021 NPR[facility] x10(9)/L 2:47 AM SENIOR SCIENCE CONSULTANT Leukocytes 17.0 (H) 3.4 - 9.6 04/25/2021 NPRG x10(9)/L 2:47 AM SENIOR SCIENCE CONSULTANT Neutrophils 14.34 (H) 1.56 - 04/25/2021 NPRG 6.45 2:47 AM SENIOR SCIENCE CONSULTANT x10(9)/L Lymphocytes 1.34 0.95 - 04/25/2021 NPRG 3.07 2:47 AM SENIOR SCIENCE CONSULTANT x10(9)/L Monocytes 1.26 (H) 0.26 - 04/25/2021 NPR[facility] 0.81 2:47 AM SENIOR SCIENCE CONSULTANT x10(9)/L Eosinophils 0.05 0.03 - 04/25/2021 NPRG 0.48 2:47 AM SENIOR SCIENCE CONSULTANT x10(9)/L Basophils 0.05 0.01 - 04/25/2021 NPRG 0.08 2:47 AM SENIOR SCIENCE CONSULTANT x10(9)/L Specimen Anatomical Collection Method Collection Time Receive d Time (Source) Location / / Volume Laterality Blood (Blood, 04/25/2021 1:58 AM 04/25/20 21 2:10 Venous) SENIOR SCIENCE CONSULTANT AM SENIOR SCIENCE CONSULTANT Federica Mckay D.O. LAB BLOOD ADD-ON Performing Organization Address City/State/ZIP Code Phon e Number [facility]- [address] [place], [place] [address] [facility] [place] [address] [facility] [address] [place] Lactate, baseline (04/25/2021 1:58 AM SENIOR SCIENCE CONSULTANT) athologist Signature Lactate, P 0.8 0.5 - 2.2 04/25/2021 NPRG mmol/L 2:36 AM SENIOR SCIENCE CONSULTANT Specimen Anatomical Collection Method Collection Time Receive d Time (Source) Location / / Volume Laterality Blood (Blood, 04/25/2021 1:58 AM 04/25/20 2:26 Venous) SENIOR SCIENCE CONSULTANT AM SENIOR SCIENCE CONSULTANT Federica Mckay D.O. LAB BLOOD NON ADD-ON Performing Organization Address [facility] Phon e Number [place] [phone] [facility] [address] Bacteria / Ebony Culture, Blood #2 (04/25/2021 1:58 AM SENIOR SCIENCE CONSULTANT) [facility] gist Method Time Signature Bacteria/[place] No growth 04/30/2021 NPR[facility] da Culture, after 5 3:03 AM SENIOR SCIENCE CONSULTANT Blood day/s of incubation. Specimen (Source) Anatomical Collection Method Collection Time Re ceived Time Location / / Volume Laterality Blood (Blood, 04/25/2021 1:58 04/25/2021 2:13 Peripheral Draw) AM SENIOR SCIENCE CONSULTANT AM SENIOR SCIENCE CONSULTANT Comment: Specimen Source Site: Blood Federica Mckay D.O. LAB MICROBIOLOGY - GENERAL O RDERABLES Performing Organization Address [facility] Phon e Number [place] [phone] [facility] [address] (ABNORMAL) Urinalysis with Microscopic if Indicated (04/25/2021 1:38 AM SENIOR SCIENCE CONSULTANT) athologist Signature Source Urine, 04/25/2021 NPRG Urine, Clean 2:11 AM SENIOR SCIENCE CONSULTANT Catch Clarity Clear Clear 04/25/2021 NPRG 2:29 AM SENIOR SCIENCE CONSULTANT Color Yellow 04/25/2021 NPRG 2:29 AM SENIOR SCIENCE CONSULTANT Comment: ----REFERENCE VALUE---- Colorless Yellow Chandrika Blood Negative Negative 04/25/2021 2:29 AM SENIOR SCIENCE CONSULTANT NPRG Nitrite Negative Negative 04/25/2021 2:29 AM SENIOR SCIENCE CONSULTANT NPRG Leukocyte Esterase Negative Negative 04/25/2021 2:29 AM CS T NPRG Protein Negative mg/dL 04/25/2021 2:29 AM SENIOR SCIENCE CONSULTANT NPRG Comment: ----REFERENCE VALUE---- Negative Trace Glucose Negative Negative mg/dL 04/25/2021 2:29 AM SENIOR SCIENCE CONSULTANT ELECTRONIC INSTRUMENT TRADES WORKER RG Ketones, QI(U) Negative Negative mg/dL 04/25/2021 2:[address] NPRG Bilirubin Negative Negative 04/25/2021 2:29 AM SENIOR SCIENCE CONSULTANT NPRG pH 8.5 (A) 5.0 - 8.0 04/25/2021 2:29 AM SENIOR SCIENCE CONSULTANT NPRG Specific [place] 1.020 1.001 - 1.035 04/25/2021 2:29 AM SENIOR SCIENCE CONSULTANT NPRG Urobilinogen 0.2 0.2 - 1.0 mg/dL 04/25/2021 2:29 AM CS T NPRG Specimen Anatomical Collection Method Collection Time Receive d Time (Source) Location / / Volume Laterality Urine (Urine, 04/25/2021 1:38 AM 04/25/20 2:11 Clean Catch) SENIOR SCIENCE CONSULTANT AM SENIOR SCIENCE CONSULTANT Federica Mckay D.O. LAB URINE ORDERABLES Performing Organization Address City/State/ZIP Code Phon e Number [facility]- [address] [place] [address] [facility] [address] [place] documented in this encounter Visit Diagnoses Diagnosis Obstruction Intestinal (HCC) - Primary Obstruction Intestinal (HCC) Fever Of Unknown Origin documented in this encounter Admitting Diagnoses Diagnosis Obstruction Intestinal (HCC) documented in this encounter Administered Medications Inactive Administered Medications - up to 3 most recent administrations Medication Order MAR Action Action Date Dose Rate Site acetaminophen tablet 1,000 mg Given 04/25/2021 2:29 AM SENIOR SCIENCE CONSULTANT 1,000 mg (TYLENOL) 1,000 mg, oral, Once, On Sun04/25/21 at 0229, For 1 dose acetaminophen tablet 1,000 mg (TYLENOL) Given 04/25/2021 9:15 AM SENIOR SCIENCE CONSULTANT 1,000 mg 1,000 mg, oral, Once, On Sun04/25/21 at 0600, For 1 dose ascorbic acid (vitamin C) tablet 1,000 mg Given 04/25/2021 9 :15 AM SENIOR SCIENCE CONSULTANT 1,000 mg (VITAMIN C) 1,000 mg, oral, Daily, First dose on Sun04/25/21 at 0900 ibuprofen tablet 200 mg (ADVIL,MOTRIN) Given 04/25/2021 9:15 AM SENIOR SCIENCE CONSULTANT 200 mg 200 mg, oral, Every 4 hours PRN, moderate pain or score 4-6 of 10, Starting on Sun04/25/21 at 0542, Take with food or milk if GI disturbances occur with use. iohexoL 300 mg iodine/mL solution 1-200 mL Given 04/25/2021 2:28 AM SENIOR SCIENCE CONSULTANT 100 mL (OMNIPAQUE) 1-200 mL, intravenous, Once in imaging, contrast, Starting on Sun04/25/21 at 0228, For 1 dose, Dose per Radiant Medication Guidelines NaCl 0.9% infusion New Bag 04/25/2021 2:34 PM SENIOR SCIENCE CONSULTANT 100 mL/hr 100 mL/hr 100 mL/hr, intravenous, Continuous, Starting on Sun04/25/21 at 0410 New Bag 04/25/2021 4:23 AM SENIOR SCIENCE CONSULTANT 100 mL/hr 100 mL/hr sodium chloride 0.9 % flush 100 mL Given 04/25/2021 2:28 AM SENIOR SCIENCE CONSULTANT 100 mL 100 mL, intravenous, Once in imaging, line care, Starting on Sun04/25/21 at 0228, For 1 dose sodium chloride 0.9 % injection 2-10 mL Given 04/25/2021 1:59 AM SENIOR SCIENCE CONSULTANT 10 mL 2-10 mL, intravenous, As needed, line care, Starting on Sun04/25/21 at 0146 documented in this encounter Active and Recently Administered Medications Times are shown in SENIOR SCIENCE CONSULTANT. Scheduled Medication Order 04/23/2021 04/24/2021 04/25/2021 acetaminophen tablet 1,000 mg (TYLENOL) (COMPLETED) 0229 (Given - Provider: Caitlin Allan R.NChapincito) 1,000 mg, oral, Once, On Sun04/25/21 at 0229, For 1 dose acetaminophen tablet 1,000 mg (TYLENOL) (COMPLETED) 0600 (Not Given - Provider: Ally Smith R.N. - Reason: Other - Comment: recieved in ED at 0230, provider says hold.)0915 (Given - Provider: Sri Faye RChapincitoN.) 1,000 mg, oral, Once, On Sun04/25/21 at [...] mg of calcium, oral, Every 2 hour NC N, heartburn, indigestion, Starting on Sun04/25/21 at [...] D) 227 (Given - Provider: Dejuan Walsh(R)(CT), Dejuan(R) - Comment: [phone]) 1-200 mL, intravenous, Once in imaging, contrast, [...] (COMPLETED) 227 (Given - Provider: Dejuan Walsh(R)(CT), Dejuan(R)) 100 mL, intravenous, Once in imaging, li [...] COVID19 Pending 04/25/2021 04/25/2021 04/25/2021 4:15 AM SENIOR SCIENCE CONSULTANT documented as of this encounter
--- OUTSIDE RECORDS SUMMARY | 2022-04-04 14:15 | XMS_ITS | Encounter Summary ---
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 [address] [facility] [address] [place] [phone] Social History Tobacco Use Types Packs/Day Years [...] Office Visit Oncology Walter Barnhart M.D., Ph.D. [address] [place] [phone] documented as of this encounter Visit Diagnoses Diagnosis Malignant Neoplasm Of Ovary Laterality U nknown (HCC) - Primary Neutropenia Drug Induced (HCC) documented in this encounter
--- OUTSIDE RECORDS SUMMARY | 2022-04-04 14:15 | XMS_ITS | Encounter Summary ---
:1975 Author Organization [facility] Address [address] [place] [address] Care Team Providers Name Role Phone Unavailable Primary Care Provider Unavailable Reason for Visit Episode Based Medications (Routine) - Authorized Specialty Diagnoses / Procedures Referred By Contact Refer red To Contact Diagnoses Malignant Neoplasm Of Ovary Laterality Unknown (HCC) Walter Barnhart M.D., R Onc Rogo Procedures AK CARBOPLATIN INJECTION AK PACLITAXEL INJECTION AK INJECTION, PEGFILGRASTIM 6MG AK DEXAMETHASONE SODIUM PHOS Ph.D. [address] [place] [phone] Referral ID Status Reason Start Date Expiration Date Visits V isits Requested Authorized [id number] Authorized 02/17/2021 02/17/2022 12 12 Encounter Details Date Type Department Care Team Description 03/15/2021 Infusion Department of Oncology Walter Barnhart, Malignant Neoplasm Of in [facility] rojelio Mendoza, Ph.D. Ovary Laterality [address] [facility] [address] [facility] Unknown (HCC) (Primary [place], [place] Dx) [phone] (Wo rk) Social History Tobacco Use Types [...] Oncology Walter Barnhart M.D., Ph.D. [address] [place] [address] documented as of this encounter Visit Diagnoses [...] dose dexamethasone in NaCl 0.9% IVPB 12 03/15/2021 9:47 AM CDT 12 mg 200 mL/hr mg (DECADRON) 12 mg, intravenous, at 200 mL/hr, Administer over 15 Minutes, Once, On Sun03/15/21 at 0930, For 1 dose, Give prior to PACLitaxel Refrigerate diphenhydrAMINE 50 mg in NaCl 0.9% New 03/15/2021 10:27 AM CDT 50 mg 204 [...] ondansetron in NaCl 0.9% IVPB 16 mg Bag 03/15/2021 10:07 A M CDT 16 [...]
--- OUTSIDE RECORDS SUMMARY | 2022-04-04 14:16 | XMS_ITS | Encounter Summary ---
:1975 Author Organization [facility] Address [address] [place] [address] Care Team Providers Name Role Phone Unavailable Primary Care Provider Unavailable Encounter Details Date Type Department Care Team Description 02/17/2021 Documentation [facility] Bronwyn Parson, CCLS [address] [place], [place] [phone] Social History Tobacco Use [...] interaction. Child Life can be reached at [phone] should additional needs arise. Visit Type: Phone consultation, resources discussed Child Life Time Spent (Min): 30 documented in this encounter Plan of Treatment Upcoming Encounters Date Type Specialty Care Team Description 04/11/2022 Clinical Communication Admitting/Central Scheduling 04/13/2022 Office Visit Oncology Walter Barnhart M.D., Ph.D. [address] [place] [phone] documented as of this encounter Visit Diagnoses Not on filedocumented in this encounter
--- OUTSIDE RECORDS SUMMARY | 2022-04-04 14:16 | XMS_ITS | Encounter Summary ---
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 [address] [place] [phone] Referral ID Status Reason Start Date Expiration Date Visits Requ ested Visits Authorized [id number] Closed 02/23/2021 02/23/2022 1 1 Encounter Details Date Type Department Care Team Description 03/02/2021 Telemedicine Department of John Cabrera M.S., [facility] [address] [place] [phone] Cancer Bladder Family History (Primary D x); Genetics in [place], Barry More [address] [place] [phone] Malignant Neoplasm Of Ovary Laterality U nknown (HCC); [place] Cancer Pancreas Family Histo ry [address] [place] [phone] Social History Tobacco Use Types Packs/Day [...] 02/26/2021 organizations such as voodoo groups, unions, fraLedzworld or athletic groups, or school groups? How [...] infection and abnormal pap smear in her 's. She had Loop Electrosurgical Excision Procedure (LEEP) [...] for viewing under the Media tab of [employer]. Our risk assessment is based upon medical [...] reportedly a non-smoker. Constance's maternal ancestry is Niuean; the patient???s paternal ancestry is Niuean. There is no reported consanguinity or Ashkenazi Jehovah'S Witness ancestry. SUMMARY OF RELEVANT INVESTIGATIONS AND RISK [...] pursue the hereditary ovarian cancer panel through [facility]. Constance will be sent a saliva kit by the laboratory. The laboratory will complete insurance pre-verification for testing and will contact the patient with estimated [id number] cost information via email or text message. [...] recommendations, such as those made by the [employer], do remain appropriate. These screening [...] recommendations, such as those made by the [employer], do remain appropriate. It was a pleasure to meet Constance. She is certainly welcome to contact us with any additional questions. PATIENT EDUCATION: All of the above was discussed in detail with the patient who verbalized understanding. The patient's questions were answered. Total time: 50 minutes Electronically signed by Claudette Corona M.S., [facility] at 03/03/2021 8:24 AM CDT Associated attestation - Claudette Bansal M.S., [facility] - 03/03/2021 8:24 AM CDT I supervised VIKTORIYA Edwards, PhD, genetics fellow for this case. I agree with his assessment and plan. documented in this encounter Plan of Treatment Upcoming Encounters Date Type Specialty Care Team Description 04/11/2022 Clinical Communication Admitting/Central Scheduling 04/13/2022 Office Visit Oncology Walter Barnhart M.D., Ph.D. [address] [place] [phone] documented as of this encounter Results BRACAnalysis with [facility]Sent Out Lab (03/05/2021 2:32 PM CDT) [facility] Method Time Signature BRACAnalysis SEE COMMENT 02/01/2022 HAN with myRisk 2:46 PM CDT Comment: REVISED RESULTS Revised Report has been issued by [facility]. The revision has been sent to the [...] Organization Address City/State/ZIP Code Phon e Number [employer] [address] [place] [address] [employer] [place] [address] Amanda Huff DBA [employer] [address] [facility] documented in this encounter Visit Diagnoses Diagnosis Cancer Bladder Family History - Primary Malignant Neoplasm Of Ovary Laterality U nknown (HCC) Cancer Pancreas Family History documented in this encounter
--- OUTSIDE RECORDS SUMMARY | 2022-04-04 14:16 | XMS_ITS | Encounter Summary ---
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 [address] [place] [phone] Referral ID Status Reason Start Date Expiration Date Visits Requ ested Visits Authorized [id number] Closed 02/17/2021 03/19/2021 1 1 Outpatient (Routine) Specialty Diagnoses / Procedures Referred By Contact Refer red To Contact Oncology Walter Barnhart M. D., Ph.D. [address] [phone] Referral ID Status Reason Start Date Expiration Date Visits Requ ested Visits Authorized Outpatient (Routine) Specialty Diagnoses / Procedures Referred By Contact Refer red To Contact Oncology Walter Barnhart M. D., Ph.D. [address] [phone] Referral ID Status Reason Start Date Expiration Date Visits Requ ested Visits Authorized Specialty Diagnoses / Procedures Referred By Contact Refer red To Contact Walter Barnhart M. D., Ph.D. 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 Neutropenia Drug Induced (HCC) [address] [phone] Social History Tobacco Use Types Packs/Day Years [...] Oncology Walter Barnhart M.D., Ph.D. 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) Expires: 03/17/2022 Oncology office Outpatient Referral Routine Malignant Neoplasm Expected: visit (clinic) Of Ovary Laterality 2020, General; HEAT TREAT FURNACE OPERATOR Unknown (HCC) Expires: 04/07/2022 documented as of this encounter Results Creatinine with Estimated GFR (05/02/2021 10:22 AM CHAINSTITCH TUNNEL ELASTIC OPERATOR) P athologist Signature Creatinine 0.64 0.59 - 05/02/2021 NPRG 1.04 mg/dL 10:47 AM CHAINSTITCH TUNNEL ELASTIC OPERATOR eGFR-Black/Afric >90 >=60 05/02/2021 NPRG an Nepalese mL/min/BSA 10:47 AM CHAINSTITCH TUNNEL ELASTIC OPERATOR Comment: ----ADDITIONAL INFORMATION---- Estimated GFR calculated using the 2009 CKD_EPI creatinine equation. eGFR Non-Black/ >90 >=60 mL/min/BSA 05/02/2021 10:47 AM CHAINSTITCH TUNNEL ELASTIC OPERATOR NPRG Comment: ----ADDITIONAL INFORMATION---- Estimated GFR calculated using the 2009 CKD_EPI creatinine equation. Specimen Anatomical Collection Method Collection Time Receive d Time (Source) Location / / Volume Laterality Blood (Blood, 05/02/2021 10:22 05/02/2021 Venous) AM CHAINSTITCH TUNNEL ELASTIC OPERATOR 10:27 AM CHAINSTITCH TUNNEL ELASTIC OPERATOR Walter Barnhart M.D., Ph.D. LAB BLOOD ADD-ON Performing Organization Address City/[facility]/ZIP [facility] Phon e Number [place] [phone] [place] [facility] NPRG [place] [phone] [address] (ABNORMAL) CBC, Chemotherapy, No Alerts (05/02/2021 10:22 AM CHAINSTITCH TUNNEL ELASTIC OPERATOR) Analysis Performed At Patho logist Time Signature Hemoglobin 11.2 (L) 11.6 - 05/02/2021 NPRG 15.0 g/dL 10:32 AM CHAINSTITCH TUNNEL ELASTIC OPERATOR Platelet Count 233 157 - 371 05/02/2021 NPRG x10(9)/L 10:32 AM CHAINSTITCH TUNNEL ELASTIC OPERATOR Leukocytes 4.1 3.4 - 9.6 05/02/2021 NPRG x10(9)/L 10:32 AM CHAINSTITCH TUNNEL ELASTIC OPERATOR Neutrophils 2.59 1.56 - 05/02/2021 NPRG 6.45 10:32 AM CHAINSTITCH TUNNEL ELASTIC OPERATOR x10(9)/L Specimen Anatomical Collection Method Collection Time Receive d Time (Source) Location / / Volume Laterality Blood (Blood, 05/02/2021 10:22 05/02/2021 Venous) AM CHAINSTITCH TUNNEL ELASTIC OPERATOR 10:27 AM CHAINSTITCH TUNNEL ELASTIC OPERATOR Walter Barnhart M.D., Ph.D. LAB BLOOD ADD-ON Performing Organization Address City/State/ZIP Code Phon e Number [address] [address] [place] [facility] [place] [phone] [address] Bilirubin, Total (05/02/2021 10:22 AM CHAINSTITCH TUNNEL ELASTIC OPERATOR) P athologist Signature Bilirubin, 0.4 <=1.2 mg/dL 05/02/2021 NPRG Total, P 10:47 AM CHAINSTITCH TUNNEL ELASTIC OPERATOR Specimen Anatomical Collection Method Collection Time Receive d Time (Source) Location / / Volume Laterality Blood (Blood, 05/02/2021 10:22 05/02/2021 Venous) AM CHAINSTITCH TUNNEL ELASTIC OPERATOR 10:27 AM CHAINSTITCH TUNNEL ELASTIC OPERATOR Walter Barnhart M.D., Ph.D. LAB BLOOD ADD-ON Performing Organization Address City/[facility]/ZIP Code Phon e Number [place] [address] [address] [place], [place] [address] [place] [address] AST (Aspartate Aminotransferase) (05/02/2021 10:22 AM CHAINSTITCH TUNNEL ELASTIC OPERATOR) Patholo gist Method Time Signature Aspartate 23 8 - 43 05/02/2021 NPRG Aminotransferase U/L 10:47 AM CHAINSTITCH TUNNEL ELASTIC OPERATOR (AST), P Specimen Anatomical Collection Method Collection Time Receive d Time (Source) Location / / Volume Laterality Blood (Blood, 05/02/2021 10:22 05/02/2021 Venous) AM CHAINSTITCH TUNNEL ELASTIC OPERATOR 10:27 AM CHAINSTITCH TUNNEL ELASTIC OPERATOR Walter Barnhart M.D., Ph.D. LAB BLOOD ADD-ON Performing Organization Address City/[facility] Phon e Number [place] [address] [address] [place], [place] [address] [place] [address] LAB NPRG [place] [phone] (ABNORMAL) Cancer Antigen 125 (CA 125) (05/02/2021 10:22 AM CHAINSTITCH TUNNEL ELASTIC OPERATOR) P athologist Signature Cancer Ag 125 65 (H) <46 U/mL 05/02/2021 AUST (CA 125), S 10:36 PM CHAINSTITCH TUNNEL ELASTIC OPERATOR Comment: Biotin has been identified by the daisy sarabiar as a potential interfering substance. ??Higher concentr ations of biotin may be found in multivitamins, hair/nail supple ments, and workout supplements. ??If the result does not [facility] clinical observations, repeat testing after patient [...] Blood (Blood, 05/02/2021 10:22 05/02/2021 Venous) AM CHAINSTITCH TUNNEL ELASTIC OPERATOR 10:04 PM CHAINSTITCH TUNNEL ELASTIC OPERATOR Walter Barnhart M.D., Ph.D. LAB BLOOD ADD-ON Performing Organization Address City/State/ZIP Code Phon e Number [facility] [address] [place] [address] [facility] [place] [address] [facility] [address] Creatinine with Estimated GFR (04/06/2021 9:14 AM CDT) P athologist Signature Creatinine 0.65 0.59 - 04/06/2021 NPRG 1.04 mg/dL 9:46 AM CDT eGFR-Black/Afric >90 >=60 04/06/2021 NPRG an Nepalese mL/min/BSA 9:46 AM CDT Comment: ----ADDITIONAL INFORMATION---- [...] Organization Address City/State/ZIP Code Phon e Number [facility]- [address] [place], [place] [address] [place] [address] [facility] [address] (ABNORMAL) CBC, [...] Ph.D. LAB BLOOD ADD-ON Performing Organization Address City/[facility] Phon e Number [address] LAB NPRG [address] Bilirubin, Total (04/06/2021 9:14 AM CDT) P athologist Signature Bilirubin, 0.7 <=1.2 mg/dL 04/06/2021 NPRG Total, P 9:46 AM CDT Specimen Anatomical Collection Method Collection Time Receive d Time (Source) Location / / Volume Laterality Blood (Blood, 04/06/2021 9:14 AM 04/06/20 9:17 Venous) CDT AM CDT Walter Barnhart M.D., Ph.D. LAB BLOOD ADD-ON Performing Organization Address City/State/[facility] Phon e Number [address] LAB NPRG [address] AST (Aspartate Aminotransferase) (04/06/2021 9:14 [...] Organization Address City/State/ZIP Code Phon e Number [facility]- [address] [place], [place] [address] [place] [facility] [place] [address] [place] [address] (ABNORMAL) Cancer Antigen 125 [...] supplements. ??If the result does not [facility] clinical observations, repeat testing after patient [...] Blood (Blood, 04/06/2021 9:14 AM 04/06/20 21 9:27 Venous) CDT PM CDT Walter Barnhart M.D., Ph.D. LAB BLOOD ADD-ON Performing Organization Address City/State/ZIP Code Phon e Number [facility]- [address] [place] [address] [facility] [place] [address] [facility] [address] Creatinine with Estimated GFR (03/14/2021 9:47 AM CDT) athologist Signature Creatinine 0.67 0.59 - 03/14/2021 NPRG 1.04 mg/dL 10:10 AM CDT eGFR-Black/Afric >90 >=60 03/14/2021 NPRG an Nepalese mL/min/BSA 10:10 AM CDT Comment: ----ADDITIONAL INFORMATION---- [...] Ph.D. LAB BLOOD ADD-ON Performing Organization Address [facility] Phon e Number [address] [place] [address] [place] [address] CBC, Chemotherapy, No Alerts (03/14/2021 9:47 AM CDT) P athologist Signature Hemoglobin 11.7 11.6 - 15.0 [...] Ph.D. LAB BLOOD ADD-ON Performing Organization Address City/[facility] Phon e Number [address] [address] [place] [address] Bilirubin, Total (03/14/2021 9:47 AM CDT) P athologist Signature Bilirubin, 0.5 <=1.2 mg/dL 03/14/2021 NPRG Total, P 10:10 AM CDT Specimen Anatomical Collection Method Collection Time Receive d Time (Source) Location / / Volume Laterality Blood (Blood, 03/14/2021 9:47 AM 03/14/20 9:51 Venous) CDT AM CDT Walter Barnhart M.D., Ph.D. LAB BLOOD ADD-ON Performing Organization Address City/State/[facility] Code Phon e Number [place] [address] [address] [place], [place] [address] [place] [place] [phone] [address] AST (Aspartate Aminotransferase) (03/14/2021 9:47 AM CDT) [facility] gist Method Time Signature Aspartate 31 8 - 43 03/14/2021 NPR Aminotransferase U/L 10:10 AM CDT (AST), Specimen Anatomical Collection Method Collection Time Receive d Time (Source) Location / / Volume Laterality Blood (Blood, 03/14/2021 9:47 AM 03/14/20 9:51 Venous) CDT AM CDT Walter Barnhart M.D., Ph.D. LAB BLOOD ADD-ON Performing Organization Address City/State/[facility] Code Phon e Number [place] [address] [address] [place], [place] [address] [place] [address] (ABNORMAL) Cancer Antigen 125 (CA 125) [...] supplements. ??If the result does not ma h clinical observations, repeat testing after patient refrains [...] Organization Address City/State/ZIP Code Phon e Number [facility]- [address] [place], [place] [id number] [place] [address] LAB AUST [place] [facility] [place], [place] [phone] [place] [address] Abdomen Pelvis [...] x 7.1 x 6.2 cm on the (; ). Each mass is grossly unchanged in [...] CDT eGFR-Black/Afric >90 >=60 02/23/2021 METH an Nepalese mL/min/BSA 10:43 AM CDT Comment: ----ADDITIONAL INFORMATION---- [...] Organization Address City/State/ZIP Code Phon e Number [facility] - 200 [place], [place] [address] [facility] [place] [address] [facility] 200 [facility] CBC, Chemotherapy, No Alerts (02/23/2021 10:08 AM [...] Ph.D. LAB BLOOD ADD-ON Performing Organization Address City/[facility] Phon e Number [facility] - [phone] [place] [address] Bilirubin, Total (02/23/2021 10:08 AM CDT) P athologist Signature Bilirubin, 0.3 <=1.2 mg/dL 02/23/2021 METH Total, P 10:43 AM CDT Specimen Anatomical Collection Method Collection Time Receive d Time (Source) Location / / Volume Laterality Blood (Blood, 02/23/2021 10:08 02/23/2021 Venous) AM CDT 10:13 AM CDT Walter Barnhart M.D., Ph.D. LAB BLOOD ADD-ON Performing Organization Address [facility] Code Phon e Number [facility] - [address] [address] [address] AST (Aspartate Aminotransferase) (02/23/2021 10:08 AM CDT) Patholo gist Method Time Signature Aspartate 40 8 - 43 02/23/2021 METH Aminotransferase U/L 10:43 AM CDT (AST), P Specimen Anatomical Collection Method Collection Time Receive d Time (Source) Location / / Volume Laterality Blood (Blood, 02/23/2021 10:08 02/23/2021 Venous) AM CDT 10:13 AM CDT Walter Barnhart M.D., Ph.D. LAB BLOOD ADD-ON Performing Organization Address City/[facility] Code Phon e Number [facility] - 200 [address] [place] [address] [address] [place], [place] [phone] [place] [address] documented in this encounter Visit Diagnoses Diagnosis Malignant Neoplasm Of Ovary Laterality U nknown (HCC) - Primary Neutropenia Drug Induced (HCC) Malignant Neoplasm Of Ovary Laterality U nknown (HCC) documented in this encounter
--- OUTSIDE RECORDS SUMMARY | 2022-04-04 14:16 | XMS_ITS | Encounter Summary ---
:1975 Author Organization [facility] Address [address] [place] [address] Care Team Providers Name Role Phone Unavailable Primary Care Provider Unavailable Encounter Details Date Type Department Care Team Description 02/11/2021 Hospital Encounter Department of Denisha Oviedo Ovary Uncertain Behavior Bilateral; Laboratory E, [place] Peritoneal Carcinomatosis (HCC); Medicine and [address] [place] [address] Abnormal Computed Tomography Pelvis; [place], [place] [phone] [facility] [phone] [place] (Work) [address] [place] [address] [place], [place] (Fax) [phone] Social History Tobacco Use [...] or relatives? How often do you attend rastafari or 1 to 4 times per year 02/09 [employer]? Do you belong to any clubs or Yes 02/26/2021 organizations such as rastafari groups, unions, fraternal or athletic groups, or [...] Office Visit Oncology Walter Barnhart M.D., Ph.D. [address] [place] [phone] documented as of this encounter Procedures Procedure [...] M.D. LAB BLOOD ADD-ON Performing Organization Address City/[facility]/ZIP Code Phon e Number [facility] - [address] [place] [address] [facility] [place] [address] Laboratories[address] Type and Screen (with reflex Antibody ID) (02/11/2021 9:12 AM CDT) Patholo gist Method Time Signature ABORh B Neg Not 02/11/2021 ETRM applicable 10:27 AM CDT Antibody Negative Negative 02/11/2021 ETRM Screen 10:34 AM CDT Type & Screen 04/11/2021 02/11/2021 ETRM Expiration 23:59 10:27 AM CDT Testing [place] DEFAULT 02/11/2021 ETRM Location 9:33 AM CDT Specimen Anatomical Collection Method Collection Time Receive d Time (Source) Location / / Volume Laterality Blood (Blood, 02/11/2021 9:12 AM 02/12/20 9:33 Venous) CDT AM CDT Denisha Oviedo M.D. LAB BLOOD BANK TEST ORDERABL ES Performing Organization Address City/State/ZIP Code Phon e Number [facility] - [address] [place], [place] [address] [facility] [place] [place] [address] Laboratories-[facility] [address] [facility] (ABNORMAL) Basic Metabolic Panel (02/11/2021 9:12 AM [...] 02/11/2021 DTL Black/ mL/min/BSA 10:18 AM CDT Mexican Comment: ----ADDITIONAL INFORMATION---- Estimated GFR calculated using [...] City/State/ZIP Code Phon e Number [facility] - 200 [place], [place] [address] [place] [address] [place] [address] CBC without Differential (02/11/2021 9:12 AM [...] Laterality Blood (Blood, 02/11/2021 9:12 AM 02/12/20 21 9:33 Venous) CDT AM CDT Denisha Oviedo M.D. LAB BLOOD ADD-ON Performing Organization Address City/State/ZIP Code Phon e Number [facility] - [address] [place] [address] Albumin (02/11/2021 9:12 AM CDT) athologist Signature Albumin, S 4.6 3.5 - 5.0 02/11/2021 DTL g/dL 10:18 AM CDT Specimen Anatomical Collection Method Collection Time Receive d Time (Source) Location / / Volume Laterality Blood (Blood, 02/11/2021 9:12 AM 02/12/20 21 9:50 Venous) CDT AM CDT Denisha Oviedo M.D. LAB BLOOD ADD-ON Performing Organization Address City/State/ZIP Code Phon e Number [facility] - [address] [place], [place] [address] [facility] [place] [address] Laboratories-[facility] [address] (ABNORMAL) Cancer Antigen 125 (CA 125) (02/11/2021 9:12 AM CDT) athologist Signature Cancer Ag 125 2428 (H) <46 U/mL 02/11/2021 [facility] (CA 125), S 1:16 PM CDT [...] Laterality Blood (Blood, 02/11/2021 9:12 AM 02/12/20 21 Venous) CDT 12:33 PM CDT Denisha Oviedo M.D. LAB BLOOD ADD-ON Performing Organization Address City/[facility] Code Phon e Number [facility] [address] [place], [place] [address] [facility] [place] [address] Laboratory Medicine and Pathology [address] [place] documented in this encounter Visit Diagnoses Diagnosis Tumor Ovary Uncertain Behavior Bilateral Peritoneal Carcinomatosis (HCC) Abnormal Computed Tomography Pelvis Mass Adnexal documented in this encounter
--- OUTSIDE RECORDS SUMMARY | 2022-04-04 14:16 | XMS_ITS | Encounter Summary ---
:1975 Author Organization [facility] Address [address] [place] [address] Care Team Providers Name Role Phone Unavailable Primary Care Provider Unavailable Reason for Visit Reason Comments [id number] Encounter Details Date Type Department Care Team Description 02/18/2021 Clinical Communication Department of Walter Barnhart D1C1 Oncology in M.D., Ph.D. [place], [place] [address] [facility] [address] [place] [phone] Social History Tobacco Use Types Packs/Day Years [...] Oncology Walter Barnhart M.D., Ph.D. [address] [place] [phone] documented as of this encounter Visit Diagnoses Not on filedocumented in this encounter
--- OUTSIDE RECORDS SUMMARY | 2022-04-04 14:16 | XMS_ITS | Encounter Summary ---
:1975 Author Organization [facility] Address [address] [place] [address] Care Team Providers Name Role Phone Unavailable Primary Care Provider Unavailable Reason for Visit Reason Comments Other Pre-appointment review Encounter Details Date Type Department Care Team Description 02/09/2021 Documentation Department of Denisha Oviedo Obstetrics and EKelly (Pre-appointment Gynecology in [address] [place] [address] review ) [place], [place] [address] [place] [phone] [place], [place] [phone] (Work) [phone] Social History Tobacco Use Types Packs/Day Years [...] seen. Patient will be seen by Denisha Ovieod MD on 02/11/21. 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 HOME HEALTH CARE PHYSICIAN/PAP HISTORY: BMI: 21 PAST MEDICAL HISTORY: Chronic [...] Oncology Walter Barnhart M.D., Ph.D. [address] [place] [phone] documented as of this encounter Visit Diagnoses Not on filedocumented in this encounter
--- OUTSIDE RECORDS SUMMARY | 2022-04-04 14:16 | XMS_ITS | Encounter Summary ---
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 [address] [place] [address] Referral ID Status Reason Start Date Expiration Date Visits Requ ested Visits Authorized [id number] Closed 04/18/2021 05/18/2021 1 1 Encounter Details Date Type Department Care Team Description 02/23/2021 Orders Only Department of Oncology Walter Barnhart Malignant Neoplasm Of in Kelly Dominguez, Ph.D. Ovary Laterality [place] [address] [facility] Unknown (HCC) (Primary [address] [place], [place] Dx) [place] [phone] [phone] Social History Tobacco Use Types Packs/Day Years [...] Visit Oncology Walter Barnhart M.D., Ph.D. [address] [place] [phone] documented as of this encounter Results CT Chest with IV Contrast (05/02/2021 10:52 AM PANEL EDGE PAINTER) Anatomical Region Laterality Modality Chest, Thoracic RST LOS, Thoracic ARZ LOS, Thoracic N/A Computed Tomography ARZ LOS, Thoracic FLA LOS Specimen (Source) Anatomical Collection Method Collection Time Re ceived Time Location / / Volume Laterality 05/02/2021 11:10 AM PANEL EDGE PAINTER Impressions 05/02/2021 11:15 AM PANEL EDGE PAINTER No acute disease. Stable tiny pulmonary nodules. Narrative 05/02/2021 11:15 AM PANEL EDGE PAINTER EXAM: CT CHEST WITH IV CONTRAST 3D/MIPS: [...]
--- OUTSIDE RECORDS SUMMARY | 2022-04-04 14:16 | XMS_ITS | Encounter Summary ---
:1975 Author Organization [facility] Address [address] [place] [address] Care Team Providers Name Role Phone Unavailable Primary Care Provider Unavailable Reason for Referral MRI/CAT/PET Scan (Routine) - Closed Specialty Diagnoses / Procedures Referred By Contact Refer red To Contact Radiology Diagnoses Mass Adnexal Denisha Oviedo M.D. [facility] Procedures CT Abdomen and/or Pelvis Biopsy 200 [place] [address] Referral ID Status Reason Start Date Expiration Date Visits Requ ested Visits Authorized [id number] Closed 02/11/2021 02/11/2022 1 1 Reason for Visit Auth/Cert Specialty Diagnoses / Procedures Referred By Contact Refer red To Contact Diagnoses Mass Adnexal Procedures CT ABDOMEN AND/OR PELVIS BIOPSY OP Referral ID Status Reason Start Date Expiration Date Visits Requ ested Visits Authorized [id number] 1 1 Encounter Details Date Type Department Care Team Description 02/16/2021 Hospital Encounter Department of Denisha Oviedo M ass Adnexal Radiology, Monet Robb M.D. [facility], in [address] [place] [address] [place] [phone] [place], [place] [phone] (Wo rk) [address] [phone] Social History Tobacco Use Types Packs/Day Years [...] related to the procedure, please contact the [facility] phototypesetter operator ([phone]) and ask to be connected to the non-vascular interventional radiology fellow business management consultant documented in this encounter Medications at Time [...] Walter Barnhart M.D., Ph.D. [address] [place] [address] documented as of this encounter Procedures Procedure [...] EP Denisha Oviedo M.D. IMG CT PROCEDURES Surgical Pathology, Frozen Lab (02/16/2021 8:45 AM CDT) Component Value Ref Test Analysis Performed Pathologis t Range Method Time At Signature 02/20/2021 STMA 2:26 PM CDT Report Andrew Chong M.D. [phone] 02/20/2021 S TMA electronically 2:26 PM signed [...] performance characteri stics 02/20/2021 STMA determined by [facility] in a manner consistent with CLIA 2:26 PM requirements. This test has not been cleared or approved by CDT the U.S. Food and Drug Administration. Interpretation FINAL DIAGNOSIS 02/20/2021 STMA 2:26 PM A. ??Soft tissue, pelvic mass, biopsy: ??Positive for CDT malignancy. ??Rare malignant cells seen associated with necrosis. ??Interpretation limited by sparse cellularity. See case [id number] for diagnosis. Ancillary immunostains trina the tumor [...] Organization Address City/State/ZIP Code Phon e Number [facility] - [address] [place], [place] [address] [place] [address] [facility] [address] Cytology Fine Needle Aspiration (including core biopsies) (02/16/2021 8:25 AM CDT) Component Value Ref Test Analysis Performed Pathologis t Range Method Time At [facility] 02/17/2021 DTL 6:02 PM CDT Disclaimer This test was developed and its performance characteri stics 02/17/2021 DTL determined by [facility] in a manner consistent with CLIA 6:02 PM requirements. This test has not been cleared or approved by CDT the U.S. Food and Drug Administration. Participated in [place] 02/17/2021 DTL the Kelly Baires, 6:02 PM Interpretation Ph.D.-Pathology CDT Resident Report Edson Lainez M.D. [phone] 02/17/2021 DT L electronically 6:02 PM signed by CDT I verify that I have examined all relevant slides/materials for the specimen(s) and rendered or confirmed the diagnosis. Seen in consultation with: Andrew Chong M.D. [phone] Gross Description Received 5 alcohol-fixed smears and [...] Organization Address City/State/ZIP Code Phon e Number [facility] - [address] [place], [place] [address] [facility] [place] [address] Laboratories-[place] Main [address] documented in this encounter Visit Diagnoses [...] intravenous, As needed, line care, Starting on 02/16/21 at 0832, Intraprocedure (RAD), Peripheral Intrave nous [...] 12 hours schedu led, First dose on 02/16/21 at 0900, Intraprocedure (RAD), Peripheral Intravenous Catheter [...] R.N.)[id number] (Given - Provider: Juan Antonio Villa RAustin) 25 mcg, intravenous, Every 2 min PRN, se dation, or pain before and during sedation procedure, Starting on 02/16/21 at 0832, Intraprocedure (RAD), Administer over 1 [...]
--- OUTSIDE RECORDS SUMMARY | 2022-04-04 14:16 | XMS_ITS | Encounter Summary ---
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 200 [place] [address] Referral ID Status Reason Start Date Expiration Date Visits Requ ested Visits Authorized [id number] Closed 02/23/2021 02/23/2022 1 1 Reason for Visit Outpatient (Routine) - Closed Specialty Diagnoses / Procedures Referred By Contact Refer robert To Contact Medical Oncology / Diagnoses Mass [facility]al [facility] M[facility] [address] [place] [phone] Referral ID Status Reason Start Date Expiration Date Visits Requ ested Visits Authorized [id number] Closed 02/11/2021 02/11/2022 1 1 Encounter Details Date Type Department Care Team Description 02/23/2021 Comprehensive Visit Department of Walter Barnhart Neoplasm Of Ovary Laterality Unknown (HCC) (Primary Dx); Oncology brittney De La Cruz M.D., Ph.D. Mass Adnexal [place], [facility] [place], [place] [address] [place] [phone] [place], [place] [phone] (Work) [phone] Social History Tobacco Use Types Packs/Day Years [...] - 02/23/2021 1:40 PM CDT SUBJECTIVE PRIMARY [place] ONCOLOGIST Walter Barnhart M.D., Ph.D. REASON FOR [...] Chemotherapy CARBOplatin AUC 6 / PACLitaxel ( FLUORESCENT SOLUTION MIXER ) Start Date: 02/24/2021 (Planned) Was initially [...] Chemotherapy CARBOplatin AUC 6 / PACLitaxel ( FLUORESCENT SOLUTION MIXER ) Start Date: 02/24/2021 (Planned) INTERVAL HISTORY: [...] ongoing an upcoming vaccine clinical trials at [facility]. Ms. Yang is interested in participating [...] Oncology Walter Barnhart M.D., Ph.D. 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
--- OUTSIDE RECORDS SUMMARY | 2022-04-04 14:16 | XMS_ITS | Encounter Summary ---
:1975 Author Organization [facility] Address [address] [place] [address] Care Team Providers Name Role Phone Unavailable Primary Care Provider Unavailable Reason for Visit Reason Comments Appointment Encounter Details Date Type Department Care Team Description 02/17/2021 Clinical Communication Department of Walter Barnhart, Appointment Oncology in M.D., Ph.D. [place], [place] [address] [facility] [address] [place] [phone] [phone] Social History Tobacco Use Types Packs/Day Years [...] Is this ok? Thank you, Yoselin Girard [facility] Onc Scheduling Patient Appointment Product/Device Technologist Medical Oncology Appointment Office Phone:?[phone] documented in this encounter Plan of Treatment Upcoming Encounters Date Type Specialty Care Team Description 04/11/2022 Clinical Communication Admitting/Central Scheduling 04/13/2022 Office Visit Oncology Walter Barnhart M.D., Ph.D. [address] [place] [phone] documented as of this encounter Visit Diagnoses Not on filedocumented in this encounter
--- OUTSIDE RECORDS SUMMARY | 2022-04-04 14:16 | XMS_ITS | Encounter Summary ---
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 200 [place], [place] [address] Referral ID Status Reason Start Date Expiration Date Visits Requ ested Visits Authorized [id number] Closed 02/17/2021 03/19/2021 1 1 Encounter Details Date Type Department Care Team Description 02/23/2021 Hospital Encounter Department of Walter Barnhart Malign ant Neoplasm Radiology, Jeramy De La Cruz M.D., Ph.D. Of Ovary Laterality [facility], in 200 [facility] Unknown (HCC) [facility] [phone] [place] [address] [place], [place] (Work) [phone] Social History Tobacco Use Types Packs/Day Years [...] Visit Oncology Walter Barnhart M.D., Ph.D. [address] [place] [phone] documented as of this encounter Procedures Procedure [...] dependent workstation as ordered by the treating malia lopez and reviewed by the radiologist to increase [...]
--- OUTSIDE RECORDS SUMMARY | 2022-04-04 14:16 | XMS_ITS | Encounter Summary ---
:1975 Author Organization [facility] Address [address] [place] [address] Care Team Providers Name Role Phone Unavailable Primary Care Provider Unavailable Reason for Visit Reason Comments Follow-up Encounter Details Date Type Department Care Team Description 02/17/2021 Clinical Communication Department of Fernando Helm ow-up Radiology, Jason Chery M.D. [facility], in [address] [place] [phone] [place] [address] [place] [phone] Social History Tobacco Use Types [...] Miscellaneous Notes Telephone Encounter - Norma Claros RChapincitoN. - 02/17/2021 9:14 AM CDT Information Discussed [...] Visit Oncology Walter Barnhart M.D., Ph.D. [address] [place] [phone] documented as of this encounter Visit Diagnoses Not on filedocumented in this encounter
--- OUTSIDE RECORDS SUMMARY | 2022-04-04 14:16 | XMS_ITS | Encounter Summary ---
:1975 Author Organization [facility] Address [address] [place] [address] Care Team Providers Name Role Phone Unavailable Primary Care Provider Unavailable Reason for Referral MRI/CAT/PET Scan (Routine) - Closed Specialty Diagnoses / Procedures Referred By Contact Refer red To Contact Radiology Diagnoses Tumor Ovary Uncertain Behavior Bilateral Peritoneal Carcinomatosis (HCC) Abnormal Computed Tomography Pelvis Denisha Oviedo M.D. [facility] Procedures CT Chest without IV Contrast [address] [place] [phone] Referral ID Status Reason Start Date Expiration Date Visits Requ ested Visits Authorized [id number] Closed 02/08/2021 02/08/2022 1 1 Reason for Visit MRI/CAT/PET Scan (Routine) - Closed Specialty Diagnoses / Procedures Referred By Contact Refer red To Contact Radiology Diagnoses Tumor Ovary Uncertain Behavior Bilateral Peritoneal Carcinomatosis (HCC) Abnormal Computed Tomography Pelvis Denisha Oviedo M.D. [facility] Procedures CT Chest without IV Contrast [address] [place] [phone] Referral ID Status Reason Start Date Expiration Date Visits Requ ested Visits Authorized [id number] Closed 02/08/2021 02/08/2022 1 1 Encounter Details Date Type Department Care Team Description 02/11/2021 Hospital Encounter Department of Denisha Oviedo r Ovary Uncertain Behavior Bilateral; Radiology, Jeramy Box M.D. Peritoneal Carcinomatosis (HCC); Building, in [address] [place] [address] Abnormal Computed Tomography Pelvis [facility] [phone] 200 [facility] [phone] [place], [place] (Work) [phone] [phone] Social History Tobacco Use Types Packs/Day Years [...] Walter Barnhart M.D., Ph.D. [address] [place] [address] documented as of this encounter Procedures Procedure [...]
--- OUTSIDE RECORDS SUMMARY | 2022-04-04 14:16 | XMS_ITS | Encounter Summary ---
:1975 Author Organization [facility] Address [address] [place] [address] Care Team Providers Name Role Phone Unavailable Primary Care Provider Unavailable Reason for Referral Specialty Diagnoses / Procedures Referred By Contact Refer red To Contact RST [facility] [address] [place] [phone] Referral ID Status Reason Start Date Expiration Date Visits Requ ested Visits Authorized Reason for Visit Reason Comments Nurse teach Encounter Details Date Type Department Care Team Description 02/18/2021 Clinical Communication Department of Mamie Rees Nurse teach Oncology in D, M.S.N., R.N. [address] [place] [phone] Social History Tobacco Use Types Packs/Day Years [...] Oncology Walter Barnhart M.D., Ph.D. 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
--- OUTSIDE RECORDS SUMMARY | 2022-04-04 14:16 | XMS_ITS | Encounter Summary ---
:1975 Author Organization [facility] Address [address] [place] [address] Care Team Providers Name Role Phone Unavailable Primary Care Provider Unavailable Reason for Referral MRI/CAT/PET Scan (Routine) - Closed Specialty Diagnoses / Procedures Referred By Contact Refer red To Contact Radiology Diagnoses Mass Adnexal Denisha Oviedo M.D. [facility] Procedures CT Abdomen and/or Pelvis Biopsy 200 [place] [address] Referral ID Status Reason Start Date Expiration Date Visits Requ ested Visits Authorized [id number] Closed 02/11/2021 02/11/2022 1 1 Reason for Visit Appointment Request (Routine) - Closed Specialty Diagnoses / Procedures Referred By Contact Refer red To Contact Obstetrics and Diagnoses Cyst Ovary Complex Gynecology Referral ID Status Reason Start Date Expiration Date Visits Requ ested Visits Authorized [id number] Closed 02/07/2021 02/07/2022 1 1 Encounter Details Date Type Department Care Team Description 02/11/2021 Comprehensive Visit Department of Denisha Oviedo Adnexal (Primary Dx); Obstetrics and Kelly Box Elevated Cancer Antigen 125; Gynecology in [address] [place] [address] Pain Pelvic Female; [place], [place] Pain Generaliz ed Abdominal; [place] [address] Constipation; [address] [place] [address] Tenesmus Rectal; [place], [place] (Work) Fatigue; [phone] Anorexia Social History Tobacco Use Types Packs/Day [...] for high-grade serous carcinoma.CA-125 was 1617. ?? 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 BMI: 21 PAST MEDICAL HISTORY: [...] Oncology Walter Barnhart M.D., Ph.D. [address] [place] [phone] documented as of this encounter Results CT [...] City/State/ZIP Code Phon e Number [facility] - [address] [place], [place] [address] [facility] [place] [address] [facility] [address] Type and Screen (with reflex Antibody ID) (02/11/2021 9:12 AM CDT) [facility] Method Time Signature ABORh B Neg [...] City/State/ZIP Code Phon e Number [facility] - [address] [place], [place] [address] [facility] [place] [address] [facility] [address] documented in this encounter Visit Diagnoses Diagnosis Mass Adnexal - Primary Elevated Cancer Antigen 125 Pain Pelvic Female Pain Generalized Abdominal Constipation Tenesmus Rectal Fatigue Anorexia Mass Adnexal documented in this encounter
--- OUTSIDE RECORDS SUMMARY | 2022-04-04 14:16 | XMS_ITS | Encounter Summary ---
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 [address] [place] [address] [place] [phone] Referral ID Status Reason Start Date Expiration Date Visits V isits Requested Authorized [id number] Authorized 02/17/2021 02/17/2022 12 12 Encounter Details Date Type Department Care Team Description 02/23/2021 Education Department of Oncology Vasu Barnhart M.D., Ph.D. [address] [place] [phone] Malignant Neoplasm Of in FerrumCabrera Lisette D, M.S.N., R.N. [address] [place] [phone] Ovary Laterality [place] Unknown (HCC) [address] [place] [phone] Social History Tobacco Use Types Packs/Day Years [...] Oncology Walter Barnhart M.D., Ph.D. 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
--- OUTSIDE RECORDS SUMMARY | 2022-04-04 14:16 | XMS_ITS | Encounter Summary ---
:1975 Author Organization [facility] Address [address] [place] [address] Care Team Providers Name Role Phone Unavailable Primary Care Provider Unavailable Encounter Details Date Type Department Care Team Description 02/21/2021 Admin Visit Department of Oncology in [place], [place] [address] [place] [phone] Social History Tobacco Use Types Packs/Day [...] minutes do you engage in exercise at is 60 min 02/26/2021 level? Stress Answer [...] or slept in a correction (including now)? Sex Assigned at Date Recorded Female 02/10/2021 8:20 AM CDT documented as of this encounter Plan of Treatment Upcoming Encounters Date Type Specialty Care Team Description 04/11/2022 Clinical Communication Admitting/Central Scheduling 04/13/2022 Office Visit Oncology Walter Barnhart M.D., Ph.D. [address] [place] [address] documented as of this encounter Visit Diagnoses Not on filedocumented in this encounter
--- OUTSIDE RECORDS SUMMARY | 2022-04-04 14:16 | XMS_ITS | Encounter Summary ---
:1975 Author Organization [facility] Address [address] [place] [address] Care Team Providers Name Role Phone Unavailable Primary Care Provider Unavailable Encounter Details Date Type Department Care Team Description 02/17/2021 Clinical Communication Department of Amber Nguyen , Obstetrics and R.N. Gynecology in [address] [place] [address] [place] [phone] [place], [place] [phone] (Work) [phone] Social History Tobacco Use Types Packs/Day Years [...] Miscellaneous Notes Telephone Encounter - Amber Nguyen R.N. - 02/17/2021 8:47 AM CDT I contacted [...] Oncology Walter Barnhart M.D., Ph.D. [address] [place] [phone] documented as of this encounter Visit Diagnoses Not on filedocumented in this encounter
--- OUTSIDE RECORDS SUMMARY | 2022-04-04 14:16 | XMS_ITS | Encounter Summary ---
:1975 Author Organization [facility] Address [address] [place] [address] Care Team Providers Name Role Phone Unavailable Primary Care Provider Unavailable Encounter Details Date Type Department Care Team Description 02/23/2021 Education Department of Patient Osbaldo Barnhart M.D., Ph.D. [address] [place] [phone] Malignant Neoplasm Of Education in Candie Oshea M.Ed. Ovary Laterality [place], [place] Unknown (HCC) [address] [place] [phone] Social History Tobacco Use Types Packs/Day Years [...] Oncology Walter Barnhart M.D., Ph.D. 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
--- OUTSIDE RECORDS SUMMARY | 2022-04-04 14:16 | XMS_ITS | Encounter Summary ---
:1975 Author Organization [facility] Address [address] [place] [address] Care Team Providers Name Role Phone Unavailable Primary Care Provider Unavailable Encounter Details Date Type Department Care Team Description 02/23/2021 Clinical Communication Department of Walter Barnhart, Oncology in M.D., Ph.D. [place], [place] [address] [facility] [address] [place] [phone] Social History Tobacco Use Types Packs/Day Years [...] Oncology Walter Barnhart M.D., Ph.D. [address] [place] [phone] documented as of this encounter Visit Diagnoses Not on filedocumented in this encounter
--- OUTSIDE RECORDS SUMMARY | 2022-04-04 14:16 | XMS_ITS | Encounter Summary ---
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 [address] [place] [phone] Referral ID Status Reason Start Date Expiration Date Visits V isits Requested Authorized [id number] Authorized 02/17/2021 02/17/2022 12 12 Encounter Details Date Type Department Care Team Description 02/25/2021 Infusion Department of Oncology Walter Barnhart, Malignant Neoplasm Of in [facility] rojelio Mendoza, Ph.D. Ovary Laterality [address] [facility] [address] [facility] Unknown (HCC) (Primary [place], [place] Dx) [phone] (Wo rk) Social History Tobacco Use Types [...] Visit Oncology Walter Barnhart M.D., Ph.D. [address] [place] [phone] documented as of this encounter Visit Diagnoses [...]
--- OUTSIDE RECORDS SUMMARY | 2022-04-04 14:17 | XMS_ITS | Encounter Summary ---
:1975 Author Organization [facility] Address [address] [place] [address] Care Team Providers Name Role Phone Unavailable Primary Care Provider Unavailable Encounter Details Date Type Department Care Team Description 02/08/2021 [facility] Tamanna Cheng M [facility] M.D. Of Ovary Laterality 2000 [facility] 2000 [facility] Unknown ([place]CC) [place] [address] [place], [place] (Primary Dx) [phone] Social History Tobacco Use Types Packs/Day Years [...] Oncology Walter Barnhart M.D., Ph.D. 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
--- OUTSIDE RECORDS SUMMARY | 2022-04-04 14:17 | XMS_ITS | Encounter Summary ---
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 [facility] Procedures CT Chest without IV Contrast [address] [place] [phone] Referral ID Status Reason Start Date Expiration Date Visits Requ ested Visits Authorized [id number] Closed 02/08/2021 02/08/2022 1 1 Encounter Details Date Type Department Care Team Description 02/08/2021 Orders Only Department of Denisha Oviedo Tumor Ovar y Uncertain Behavior Bilateral (Primary Dx); Obstetrics and [place] Peritoneal Carcinomatosis (HCC); Gynecology in [address] [place] [address] Abnormal Computed Tomography Pelvis [place], [place] [address] [place] [phone] [place], [place] [phone] (Work) [phone] Social History Tobacco Use Types Packs/Day Years [...] or slept in a halfway (including now)? Sex Assigned at Date Recorded Female 02/10/2021 8:20 AM CDT documented as of this encounter Plan of Treatment Upcoming Encounters Date Type Specialty Care Team Description 04/11/2022 Clinical Communication Admitting/Central Scheduling 04/13/2022 Office Visit Oncology Walter Barnhart M.D., Ph.D. [address] [place] [phone] documented as of this encounter Results CT [...] contrast, however, no significant change . Denisha Oviedo M.D. IMG CT PROCEDURES (ABNORMAL) Basic Metabolic Panel (02/11/2021 [...] 02/11/2021 DTL Black/ mL/min/BSA 10:18 AM CDT Guyanese Comment: ----ADDITIONAL INFORMATION---- Estimated GFR calculated using [...] Organization Address City/State/ZIP Code Phon e Number [facility] - 200 [place], [place] [address] [facility] [place] [address] Laboratories-[facility] [place] 200 [facility] CBC without Differential (02/11/2021 9:12 AM [...] M.D. LAB BLOOD ADD-ON Performing Organization Address City/[facility] Phon e Number [facility] - [address] Albumin (02/11/2021 9:12 AM CDT) athologist Signature Albumin, S 4.6 3.5 - 5.0 02/11/2021 DTL g/dL 10:18 AM CDT Specimen Anatomical Collection Method Collection Time Receive d Time (Source) Location / / Volume Laterality Blood (Blood, 02/11/2021 9:12 AM 02/12/20 9:50 Venous) CDT AM CDT Denisha Oviedo M.D. LAB BLOOD ADD-ON Performing Organization Address [facility] Phon e Number [facility] - 200 [place] [address] 05 [place] [address] (ABNORMAL) Cancer Antigen 125 (CA 125) (02/11/2021 9:12 AM CDT) [facility] Cancer Ag 125 2428 (H) <46 U/mL 02/11/2021 [facility] (CA 125), S 1:16 PM CDT Comment: [...] M.D. LAB BLOOD ADD-ON Performing Organization Address City/[facility]/ZIP Code Phon e Number [facility] [address] [place], [place] [address] [facility] [place] [address] Laboratory Medicine and Pathology 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
--- OUTSIDE RECORDS SUMMARY | 2022-04-04 14:17 | XMS_ITS | Encounter Summary ---
:1975 Author Organization [facility] Address [address] [place] [address] Care Team Providers Name Role Phone Unavailable Primary Care Provider Unavailable Reason for Visit Reason Comments Communication Encounter Details Date Type Department Care Team Description 02/07/2021 Clinical Communication Department of Bassem Siegel mmunication Obstetrics and Provider Gynecology in [place], [place] [address] [place] [address] Social History Tobacco Use Types Packs/Day Years [...] wait for those images and then ask GEG to review. Telephone Encounter - Christy Abbott - 02/07/2021 2:37 PM CDT I have called [facility] to request medical records and recent imaging. I had to leave a VM. Telephone Encounter - Ginette Dennis - 02/07/2021 9:50 AM CDT Pt called in to get care established with our dept. She said she was advised from the [facility] to set up care with us [...] She is sending OSM and imaging from [facility]. She had a recent US and [...] Visit Oncology Walter Barnhart M.D., Ph.D. [address] [place] [phone] documented as of this encounter Visit Diagnoses Not on filedocumented in this encounter
--- OUTSIDE RECORDS SUMMARY | 2022-04-04 14:17 | XMS_ITS | Encounter Summary ---
:1975 Author Organization [facility] Address [address] [place] [address] Care Team Providers Name Role Phone Unavailable Primary Care Provider Unavailable Reason for Visit Reason Comments Communication Encounter Details Date Type Department Care Team Description 02/08/2021 Clinical Communication Department of Denisha Oviedo Communication Obstetrics and E, M.D. Gynecology in [address] [place] [address] [place] [phone] [place], [place] [phone] (Work) [phone] Social History Tobacco Use Types Packs/Day Years [...] or slept in a assisted (including now)? Sex Assigned at Date Recorded Female 02/10/2021 8:20 AM CDT documented as of this encounter Miscellaneous Notes Telephone Encounter - Arabella Evans - 02/08/2021 3:22 PM CDT [facility] called back on this pt and she is rescheduled to 02/11 with a 7:45 am check in. Pt was at [facility] and they were making pt aware of the update. Thank you Telephone Encounter - Cindy Sanon - 02/08/2021 11:07 AM CDT Pt is currently scheduled to see GE on 02/18. Pt just got her imaging [...] Oncology Walter Barnhart M.D., Ph.D. [address] [place] [address] documented as of this encounter Visit Diagnoses Not on filedocumented in this encounter
--- OUTSIDE RECORDS SUMMARY | 2022-04-04 14:17 | XMS_ITS ---
:1975 Author Name [facility] Care Team Providers Name Role Phone Abdelrahman Timbo Unavailable Unavailable PROBLEMS Type Condition ICD9-CM Code [id number] Onset Condition SNOMED Code Code Dates Status Problem Perimenopause N95.1 Active Problem Perimenopausal N95.1 Active Problem Perimenopausal N95.1 Active 88141 3006 vasomotor symptoms Problem Binge eating F50.81 Active 4327880 05 disorder ALLERGIES No Known Allergies ENCOUNTERS Encounter Location Date Diagnosis [facility] [address] Dec, [place], [place] [phone] [facility] [place] [address] [address] [facility] Dec, [address] [phone] [place] [address] [address] [facility] Jun, [address] [phone] [facility] [address] Feb, [place], [place] [phone] [facility] [address] Dec, [place], [place] [phone] [facility] [address] Jun, [place], [place] [phone] [facility] [address] Jun, Perim enopausal vasomotor [facility] 120 symptoms N95.1 a nd [place], [place] Encounter for sc reening [phone] for lipid disord er Z13.220 [facility] [address] Jun, Perim enopausal N95.1 and [place] [address] Hot flashes R23. 2 [place] [address] [facility] [address] Jun, Perime nopause N95.1 [place], [place] [phone] [facility] [address] Apr, [place] [address] [place] [address] [facility] [address] October, [place], [place] [phone] [facility] [address] Apr, [place], [place] [phone] [facility] [address] Mar, [place], [place] [phone] [facility] [address] Mar, [place], [place] [phone] [facility] [address] Mar, [place], [place] [phone] [facility] [address] Mar, A nnual physical exam for [place] [address] Z00.00 ; Cervica l cancer [place], [place] screening Z12.4 ; Breast [phone] cancer screening by mammogram Z12.31 ; Perimenopause N9 5.1 and Binge eating dis order F50.81 [facility] [address] Jul, Perim enopausal vasomotor [place] [address] symptoms N95.1 a nd Breast [place], [place] cancer screening Z12.31 [phone] IMMUNIZATIONS No Known Immunizations SOCIAL HISTORY Qualifiers [...] REFLEX HPV 03-19 16,18/45 CLINICAL INFORMATION: COMMENT [employer]ACHINE: HPV mRNA E6/E7 Not Detected Not Detected INTERPRETATION/RESULT: LMP: PREV. BX: N/A PREV. 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 [employer] MACHINE: SOURCE: [employer] STATEMENT OF ADEQUACY: REASON FOR VISIT Insurance Providers [facility] Member Patient Patient Patient Patient Patient Subscriber Subscriber Subscriber Group Insurance Plan Plan Plan Plan ID Relationship Address Phone Name Date of ID Name Date of No Type Insurance Insurance Insurance Coverage to Subscriber Address Phone Name Dates [place] [address] [place] [id number] Group [id number] [place] [address] Blue [employer] [address] Blue Cross self [place] [id number] [address] [employer] STARFI[place] 2000 [address] [facility] [address] [place] MEDICAL (GENERAL) HISTORY Type Description Date Medical History Bladder Infections Surgical History Bladder Sling 2010 Surgical History Uterine Ablation 2010
[2022-04-04 14:36] LABS: Basophils Absolute Auto 0.01 K/uL (0.00-0.30); Basophils Percent Auto 0.2 % (0.0-3.0); Eosinophils Absolute Auto 0.06 K/uL (0.00-0.50); Eosinophils Percent Auto 1.3 % (0.0-7.0); Hematocrit 39.5 % (33.0-51.0); Hemoglobin* 13.1 gm/dL (12.0-16.0); Immature Granulocytes Abs Auto 0.01 K/uL (0.00-0.30); Lymphocytes Absolute Auto 1.41 K/uL (0.90-2.90); Lymphocytes Percent Auto 30.7 % (20-44); Mean Corpuscular HGB Conc 33 gm/dL (32-36); Mean Corpuscular Hemoglobin 34 pg (26-34); Mean Corpuscular Volume 101 fL (80-100); Monocytes Percent Auto 9.6 % (0.0-11.0); Platelet Count* 252 K/uL (140-440); RDW Coefficient of Variation % 13.1 % (11.5-15.5); Red Blood Count 3.91 m/uL (4.00-5.20); White Blood Count* 4.59 K/uL (4.50-11.00)
[2022-04-04 14:41] LABS: Slide Review Reflex No
[2022-04-04 16:59] LABS: Aspartate Amino Transferase* 44 U/L (12-35); Bilirubin Total* 1.2 mg/dL (0.1-1.5); Creatinine* 0.6 mg/dL (0.5-1.5); Estimated Glomerular Filt Rate 112 ml/min
[2022-04-04 17:00] LABS: Alanine Aminotransferase* 19 U/L (4-35)
[2022-04-04 19:51] LABS: Neutrophils Percent Auto 58.2 % (42.0-72.0)
[2022-04-05 21:46] LABS: Cancer Antigen 125 7 U/mL (<=38)
== END 2022-04-04 13:54 | disposition home or self-care (01) ==
LOC: NPINS 13:53
PROVIDERS: Visit Provider Internal Medicine
DX: C25.9 Malignant neoplasm of pancreas, unspecified (principal)
CPT/HCPCS: 82247; 82565; 84450; 84460; 85025; 86304

== ENCOUNTER 2022-06-07 14:04 | Outpatient (RCR) | payer OTHER, SELFPAY ==
[2022-02-01 17:29] LABS: Basophils Absolute Auto 0.03 K/uL (0.00-0.30); Basophils Percent Auto 0.6 % (0.0-3.0); Eosinophils Absolute Auto 0.05 K/uL (0.00-0.50); Hematocrit 39.4 % (33.0-51.0); Hemoglobin* 13.3 gm/dL (12.0-16.0); Lymphocytes Absolute Auto 1.89 K/uL (0.90-2.90); Mean Corpuscular HGB Conc 34 gm/dL (32-36); Mean Corpuscular Hemoglobin 33 pg (26-34); Mean Corpuscular Volume 98 fL (80-100); Monocytes Percent Auto 12.2 % (0.0-11.0); Neutrophils Absolute Auto 2.64 K/uL (1.7-7.0); Neutrophils Percent Auto 50.2 % (42.0-72.0); Platelet Count* 255 K/uL (140-440); RDW Coefficient of Variation % 14.6 % (11.5-15.5); Red Blood Count 4.03 m/uL (4.00-5.20); White Blood Count* 5.25 K/uL (4.50-11.00)
[2022-02-01 17:44] LABS: Slide Review Reflex No
[2022-02-01 17:48] LABS: Alanine Aminotransferase* 25 U/L (4-35); Aspartate Amino Transferase* 49 U/L (12-35); Bilirubin Total* 1.6 mg/dL (0.1-1.5); Creatinine* 0.7 mg/dL (0.5-1.5); Estimated Glomerular Filt Rate 108 ml/min
[2022-02-03 17:01] LABS: Cancer Antigen 125 6 U/mL (<=38)
[2022-03-03 14:04] LABS: Basophils Percent Auto 0.6 % (0.0-3.0); Eosinophils Percent Auto 2.3 % (0.0-7.0); Hematocrit 39.1 % (33.0-51.0); Lymphocytes Percent Auto 54.5 % (20-44); Mean Corpuscular HGB Conc 33 gm/dL (32-36); Mean Corpuscular Hemoglobin 34 pg (26-34); Mean Corpuscular Volume 101 fL (80-100); Monocytes Percent Auto 12.6 % (0.0-11.0); Platelet Count* 263 K/uL (140-440); RDW Coefficient of Variation % 13.3 % (11.5-15.5); Red Blood Count 3.88 m/uL (4.00-5.20)
[2022-03-03 14:06] LABS: Alanine Aminotransferase* 27 U/L (4-35); Aspartate Amino Transferase* 53 U/L (12-35); Creatinine* 0.6 mg/dL (0.5-1.5); Estimated Glomerular Filt Rate 112 ml/min; Slide Review Reflex No
[2022-03-04 18:09] LABS: Bile Acids, Total 11 umol/L (0-10); Cancer Antigen 125 6 U/mL (<=38)
[2022-03-06 14:09] LABS: Bilirubin Total* 1.5 mg/dL (0.1-1.5)
[2022-04-11 16:36] LABS: Basophils Percent Auto 0.6 % (0.0-3.0); Eosinophils Percent Auto 1.4 % (0.0-7.0); Hemoglobin* 13.3 gm/dL (12.0-16.0); Lymphocytes Percent Auto 42.7 % (20-44); Mean Corpuscular HGB Conc 33 gm/dL (32-36); Mean Corpuscular Hemoglobin 34 pg (26-34); Mean Corpuscular Volume 101 fL (80-100); Monocytes Percent Auto 12.1 % (0.0-11.0); Neutrophils Percent Auto 43.2 % (42.0-72.0); Platelet Count* 293 K/uL (140-440); RDW Coefficient of Variation % 13.3 % (11.5-15.5); Red Blood Count 3.96 m/uL (4.00-5.20); White Blood Count* 3.63 K/uL (4.50-11.00)
[2022-04-11 16:39] LABS: Slide Review Reflex No
[2022-04-11 16:42] LABS: Creatinine* 0.7 mg/dL (0.5-1.5); Estimated Glomerular Filt Rate 108 ml/min
[2022-04-11 16:43] LABS: Alanine Aminotransferase* 40 U/L (4-35); Aspartate Amino Transferase* 58 U/L (12-35)
[2022-05-09 14:33] LABS: Basophils Percent Auto 0.8 % (0.0-3.0); Eosinophils Percent Auto 1.3 % (0.0-7.0); Hematocrit 40.1 % (33.0-51.0); Hemoglobin* 13.3 gm/dL (12.0-16.0); Lymphocytes Percent Auto 34.3 % (20-44); Mean Corpuscular HGB Conc 33 gm/dL (32-36); Mean Corpuscular Hemoglobin 33 pg (26-34); Mean Corpuscular Volume 100 fL (80-100); Monocytes Percent Auto 9.8 % (0.0-11.0); Neutrophils Percent Auto 53.8 % (42.0-72.0); Platelet Count* 338 K/uL (140-440); RDW Coefficient of Variation % 13.2 % (11.5-15.5); White Blood Count* 3.99 K/uL (4.50-11.00)
[2022-05-09 14:44] LABS: Slide Review Reflex No
[2022-05-09 14:49] LABS: Alanine Aminotransferase* 27 U/L (4-35); Aspartate Amino Transferase* 41 U/L (12-35); Bilirubin Total* 1.1 mg/dL (0.1-1.5); Creatinine* 0.6 mg/dL (0.5-1.5); Estimated Glomerular Filt Rate 112 ml/min
[2022-05-12 00:38] LABS: Cancer Antigen 125 9 U/mL (<=38)
[2022-06-07 14:42] LABS: Basophils Percent Auto 0.5 % (0.0-3.0); Eosinophils Percent Auto 1.2 % (0.0-7.0); Hemoglobin* 13.3 gm/dL (12.0-16.0); Lymphocytes Percent Auto 45.5 % (20-44); Mean Corpuscular HGB Conc 33 gm/dL (32-36); Mean Corpuscular Hemoglobin 33 pg (26-34); Mean Corpuscular Volume 100 fL (80-100); Monocytes Percent Auto 12.9 % (0.0-11.0); Neutrophils Percent Auto 39.9 % (42.0-72.0); Platelet Count* 324 K/uL (140-440); RDW Coefficient of Variation % 13.6 % (11.5-15.5); Red Blood Count 3.99 m/uL (4.00-5.20); White Blood Count* 4.11 K/uL (4.50-11.00)
[2022-06-07 15:02] LABS: Alanine Aminotransferase* 27 U/L (4-35); Aspartate Amino Transferase* 43 U/L (12-35); Bilirubin Total* 1.2 mg/dL (0.1-1.5); Creatinine* 0.6 mg/dL (0.5-1.5); Estimated Glomerular Filt Rate 112 ml/min
[2022-06-07 15:09] LABS: Slide Review Reflex No
[2022-06-09 14:56] LABS: Cancer Antigen 125 10 U/mL (<=38)
[2022-08-25 12:52] LABS: Alanine Aminotransferase* 46 U/L (4-35); Aspartate Amino Transferase* 68 U/L (12-35); Bilirubin Total* 1.2 mg/dL (0.1-1.5); Creatinine* 0.7 mg/dL (0.5-1.5); Estimated Glomerular Filt Rate 108 ml/min
[2022-08-25 13:27] LABS: Basophils Percent Auto 0.6 % (0.0-3.0); Eosinophils Percent Auto 0.8 % (0.0-7.0); Hematocrit 40.9 % (33.0-51.0); Hemoglobin* 13.8 gm/dL (12.0-16.0); Immature Granulocytes Pct Auto 0.8 %; Lymphocytes Percent Auto 25.6 % (20-44); Mean Corpuscular HGB Conc 34 gm/dL (32-36); Mean Corpuscular Hemoglobin 34 pg (26-34); Mean Corpuscular Volume 100 fL (80-100); Monocytes Percent Auto 12.6 % (0.0-11.0); Neutrophils Percent Auto 59.6 % (42.0-72.0); Platelet Count* 226 K/uL (140-440); RDW Coefficient of Variation % 13.6 % (11.5-15.5); Red Blood Count 4.08 m/uL (4.00-5.20); White Blood Count* 3.56 K/uL (4.50-11.00)
[2022-08-25 13:31] LABS: Slide Review Reflex No
[2022-08-26 13:40] LABS: Cancer Antigen 125 12 U/mL (<=38)
== END 2023-05-10 15:19 | disposition home or self-care (01) ==
LOC: LAB 14:04
PROVIDERS: Visit Provider Internal Medicine
DX: C56.9 Malignant neoplasm of unspecified ovary (principal)
CPT/HCPCS: 36415; 82239; 82247; 82565; 84450; 84460; 85025; 86304